=== PATIENT | female | born 2005 | race Caucasian/White ===

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

== ENCOUNTER 2024-04-28 20:23 | Emergency (ER) | payer MEDICAID, SELFPAY ==
[2024-04-28 20:25] VITALS: BP 126/88; PULSE 100; RESP 18; TEMP 36.8; O2SAT 100; BMI 34.0
--- NOTE | 2024-04-28 20:38 | EDS_ITS ---
HPI <CATRACHO Fraga - Last Filed: 04/28/24 21:40> History of Present Illness Chief Complaint: General Illness Narrative Narrative: 18-year-old female is 16 weeks and developed congestion yesterday and this morning the fatigue, chills, body aches, headache and cough. She works in the [employer] and has been around patients with different respiratory viruses. She called her [employer] UP T[employer]ER who recommended she come in and be screened for the flu. She also has urinary frequency today but no burning or hematuria. She has no abdominal pain or vaginal bleeding or discharge. PFSH <CATRACHO Fraga - Last Filed: 04/28/24 21:40> PFSH Medical History Left ankle pain Home Medications ?Medication ?Instructions ?Recorded ?Last Taken ?Type Lactobacillus 25 billion cap PO 10/04/23 Unknown Hist ory cell-Bifido 25 billion xerk-HSG-hrebk capsule albuterol sulfate 90 mcg/actuation inhalation 10/04/23 Unknown History aerosol inhaler vits 75-iron 28 mg-folic pkg PO 02/24/24 Unkn own History acid 800 mcg-omega-3 oral combo pack (One A Day Women's DHA) Allergy/AdvReac Type Severity Reaction Status Date / Time No Known Allergies Allergy Verified 04/28/24 20:25 Surgical History Hx of wisdom tooth extraction Hx of tonsillectomy Social History (Updated 04/28/24 @ 21:21 by Arielle Ruff) household members: spouse housing: house Smoking Status: Never smoker ROS <CATRACHO Fraga - Last Filed: 04/28/24 21:40> ROS ED ROS Narrative Constitutional: Positive for chills, malaise. Negative for fever. ENT: Positive rhinorrhea. CVS: Negative for chest pain. Respiratory: Positive for cough. Negative for shortness of breath. GI: Positive for nausea. Negative for abdominal pain, nausea, vomiting, diarrhea. EXAM <CATRACHO Fraga - Last Filed: 04/28/24 21:40> Physical Exam Narrative Exam Narrative: CONST: Patient sitting in no acute distress. EYES: Normal inspection. ENT: Normal inspection, moist mucous membranes. NECK: Normal inspection. RESP: No respiratory distress, CTAB. CVS: Regular rate and rhythm, no murmur, no gallop. ABD: Soft and nontender, no guarding or rebound, nondistended. SKIN: Color normal, no rash, warm, dry, intact. EXTREMITIES: Normal appearance, no pedal edema. NEURO: Alert and answering questions appropriately. PSYCH: Normal affect. Const Vital Signs: 04/28/24 20:25 04/28/24 21:21 Temperature 98.2 F Temperature Source Oral Pulse Rate 100 Respiratory Rate 18 Respiratory Effort Normal Non-Labored Respiratory Pattern Normal Blood Pressure 126/88 H Blood Pressure Mean 100 Pulse Ox 100 Oxygen Delivery Method Room Air <Dr. Mj Lloyd DO - Last Filed: 04/29/24 00:27> Physical Exam Const Vital Signs: 04/28/24 20:25 04/28/24 21:21 Temperature 98.2 F Temperature Source Oral Pulse Rate 100 Respiratory Rate 18 Respiratory Effort Normal Non-Labored Respiratory Pattern Normal Blood Pressure 126/88 H Blood Pressure Mean 100 Pulse Ox 100 Oxygen Delivery Method Room Air MDM <CATRACHO Fraga - Last Filed: 04/28/24 21:40> [facility] Narrative Medical decision making narrative: Differential: Viral illness, pneumonia, meningitis, UTI 18-year-old female is 16 weeks presenting with acute myalgias and upper respiratory symptoms. She also has urinary frequency. She has no abdominal pain or bleeding. She appears well and nontoxic. He is afebrile. Vital signs stable. Overall her exam is completely benign. She reports a headache but has no focal neurological deficits and no signs of meningitis and this is in the context of other viral symptoms. Respiratory test is negative for COVID, influenza, RSV. Urinalysis is negative. She had some improvement in her headache after Reglan and Benadryl. She has a nonfocal neurological exam so does not need a CT brain or further testing. I suspect she has a viral URI and recommended Tylenol and follow-up with her [employer]ER. She was discharged in stable condition. Lab Data Attestation: I reviewed the patient's lab results. Labs: Laboratory Results - last 24 hr 04/28/24 20:42 Urine Color Yellow Urine Clarity Clear Urine pH 6.0 Ur Specific Keiser 1.015 Urine Protein 15 H Urine Glucose (UA) Normal Urine Ketones Negative Urine Occult Blood Negative Urine Nitrite Negative Urine Bilirubin Negative Urine Urobilinogen Normal Ur Leukocyte Esterase Negative Urine RBC 0 SEEN Urine WBC 0 SEEN Ur Squamous Epith Cells 0 SEEN Urine Bacteria 0 SEEN Urine Mucus 0 SEEN <Dr. Mj Lloyd, DO - Last Filed: 04/29/24 00:27> [facility] Lab Data Labs: Laboratory Results - last 24 hr 04/28/24 20:42 Urine Color Yellow Urine Clarity Clear Urine pH 6.0 Ur Specific Keiser 1.015 Urine Protein 15 H Urine Glucose (UA) Normal Urine Ketones Negative Urine Occult Blood Negative Urine Nitrite Negative Urine Bilirubin Negative Urine Urobilinogen Normal Ur Leukocyte Esterase Negative Urine RBC 0 SEEN Urine WBC 0 SEEN Ur Squamous Epith Cells 0 SEEN Urine Bacteria 0 SEEN Urine Mucus 0 SEEN Treatment and Re-Evaluation :: ED attending note: I evaluated the patient in conjunction with the GABINO. I agree with his/her statements and above findings. I have personally performed a face to face assessment of the patient and have reviewed the GABINO Note. I performed a substantive portion of the visit including all aspects of the following. I personally saw the patient performed chart review, physical exam, reviewed labs, imaging (if obtained), and formulated a treatment and management plan. 18-year-old female presents with viral URI symptoms and headache in the setting of being 16 weeks OB. Denies abdominal pain, vaginal bleeding, discharge or passage of any tissue. Patient denies sudden onset or thunderclap headache, denies maximal intensity within 1 minute, vomiting, neck pain, stiffness, changes in vision, fever, history malignancy, syncope, or seizures associated with headache. Exam: Alert and oriented x3, neuro exam at baseline, cranial nerves II through XII are intact. No pain with extraocular muscle movement. There is negative test of skew. 5 of 5 strength in upper and lower extremities in flexion extension. Intact sensation to light touch in upper and lower extremity dermatomes. No truncal or extremity ataxia. No dysdiadochokinesia. Normal gait. 2+ reflexes in upper and lower extremities. No meningeal signs. Negative Babinski. NIH of 0. MDM/plan: Exam unremarkable. Presentation consistent with likely viral URI. Considered meningitis, ICH, subarachnoid hemorrhage, venous sinus thrombosis but thought these diagnoses were less likely given lack of fever, meningeal signs, focal neurologic deficits. In addition to this patient had no headache red flag such as seizure or syncope etc to suggest a more concerning secondary headache. She was treated empirically with Reglan and Benadryl. Viral swab and urinalysis were obtained. Will determine final disposition based on results of studies, and reassessment. This note was generated with [employer] dictation software. It may contain incorrect words, spelling, and punctuation that were not noted in review of the chart prior to signing. Discharge Plan Triage Chief Complaint: General Illness ED Midlevel Provider: Shraddha Hurley ED Provider: Mj Lloyd Dx/Rx/DC Orders Clinical Impression: URI (upper respiratory infection) Instructions: Adult Self-Care for Colds Prescriptions: No Action albuterol sulfate 90 mcg/actuation HFA aerosol inhaler inhalation Lacto no.77-Asdwjv-MYR-larch 25B cell-25B cell-50 mg capsule PO One A Day Women's DHA 28 mg iron- 800 mcg combo pack PO Primary Care Provider: Que Sommers Referrals: Que Sommers MD [Primary Care Provider] - Activity Restrictions/Additional Instructions: You tested negative for COVID, influenza, and RSV. Your urinalysis is also negative. I suspect you have a viral upper respiratory infection and recommend Tylenol as needed. Contact your CAL[employer] W[employer] UP TENDER for further recommendations. Print Language: Serbian Disposition Disposition: Home, Self Care Discharge Date/Time: 04/28/24 21:44
[2024-04-28] MEDS: DiphenhydrAMINE 25 MG Capsule PO (20:45)
[2024-04-28 20:48] LABS: Bacteria 0 SEEN /hpf (None Seen); Mucous, Urine 0 SEEN /hpf (<or=2+); Squamous Epithelial Cells - UA 0 SEEN /hpf (5-10); White Blood Cells 0 SEEN /hpf (0-5)
[2024-04-28 20:53] LABS: Color, Urine Yellow (Yellow); Glucose, Dipstick Normal (Normal); Ketone-Dipstick Negative (Negative); Leukocyte Esterase-Dipstick Negative /ul (Negative); Nitrite-Dipstick Negative (Negative); Occult Blood-Urine Negative /ul (Negative); Protein-Dipstick 15 mg/dl (Negative); Specific Gravity, Urine 1.015 (1.002-1.030); Urine Bilirubin Dipstick Negative (Negative); Urine Clarity Clear (Clear); Urine Urobilinogen Normal (Normal)
[2024-04-28] MEDS: Metoclopramide 5 MG TABLET PO (21:14)
[2024-04-28 21:34] LABS: Red Blood Cells-Urine 0 SEEN /hpf (0-5)
== END 2024-04-28 21:44 | disposition home or self-care (01) ==
PROVIDERS: Physician Assistant; Emergency Provider Emergency Medicine; PCP Pediatrics; Referring Provider Emergency Medicine; Visit Provider Emergency Medicine
DX: O99.512 Diseases of the respiratory system complicating pregnancy, second trimester (principal); Z3A.16 16 weeks gestation of pregnancy; J06.9 Acute upper respiratory infection, unspecified; O99.891 Other specified diseases and conditions complicating pregnancy; R35.0 Frequency of micturition
CPT/HCPCS: 81001; 87631; 99283

== ENCOUNTER 2024-09-04 10:11 | Emergency (ER) | payer MEDICAID, SELFPAY ==
[2024-09-04 10:11] VITALS: BP 119/81; PULSE 122; RESP 14; TEMP 35.6; O2SAT 98; BMI 37.1
--- NOTE | 2024-09-04 10:48 | EKG12_ITS ---
Test Reason : SOB Blood Pressure : */* mmHG Vent. Rate : 113 BPM Atrial Rate : 113 BPM P-R Int : 134 ms QRS Dur : 90 ms QT Int : 334 ms P-R-T Axes : 37 63 9 degrees QTcB Int : 458 ms Sinus tachycardia Nonspecific T wave abnormality Abnormal ECG Confirmed by TANA MUIR, CODY ([id number]), general expeditor [employer] [employer] ([id number]) on 09/05/2024 1:39:37 PM Referred By: Confirmed By: CODY FAJARDO MD
--- NOTE | 2024-09-04 10:48 | EKG12_ITS ---
Test Reason : SOB Blood Pressure : */* mmHG Vent. Rate : 113 BPM Atrial Rate : 113 BPM P-R Int : 134 ms QRS Dur : 90 ms QT Int : 334 ms P-R-T Axes : 37 63 9 degrees QTcB Int : 458 ms Sinus tachycardia Nonspecific T wave abnormality Abnormal ECG Confirmed by TANA MUIR, CODY ([id number]), avid editor [employer] ([id number]) on 09/05/2024 1:39:37 PM Referred By: Confirmed By: CODY FAJARDO MD
--- NOTE | 2024-09-04 10:55 | CT_ITS ---
PROCEDURE: CTA CHEST W/WO CONTRAST 09/04/2024 REASON FOR EXAM: 35 WEEKS WITH CHEST PAIN, DYSPNEA AND TAC TECHNIQUE: CTA CHEST W/WO CONTRAST Multiplanar Sagittal and Coronal images were obtained. 3D post processing was performed CONTRAST: Isovue 370 VOLUME: 100 mL One or more dose reduction techniques were used (e.g., Automated exposure control, adjustment of the mA and/or kV according to patient size, use of iterative reconstruction technique). RADIATION DOSE SUMMARY: CTDlvol: 30.06 mGy DLP: 469.45 mGycm COMPARISON: No comparison studies # of known CTs in the past 12 months: 0 # of known Cardiac Nuclear Medicine Studies in the past 12 months: 0 FINDINGS: No evidence of filling defects within the pulmonary arteries to suspect PE. The thoracic aorta tapers normally without aneurysm or dissection. Lung windows do not show evidence of a superimposed acute pulmonary process. No suspicious adenopathy Bony structures are unremarkable, limited cuts through the upper abdomen do not show a suspicious abnormality CT/CTA Chest W/WO Contrast IMPRESSION: No demonstrated PE, or thoracic aortic aneurysm or dissection No acute pulmonary process Reading Location: [id number]
--- NOTE | 2024-09-04 10:56 | ED.VIS.CHEST ---
HPI History of Present Illness Chief Complaint: Chest Pain Informant: patient Onset/Context/Timing Onset: Today and Hours Activity at onset: gradual Timing: Continuous Quality: Positive for Pain Current Severity: Mild Maximum Severity: Mild Worsened By: Nothing Relieved By: Nothing Associated Symptoms: Positive for Dyspnea; Negative for Nausea, Vomiting, Diaphoresis, Cough, Fever, Lightheadedness, Acid Reflux or Palpitations Narrative Narrative: 19-year-old female no significant past medical history. Currently 35 weeks . G1, P0 Ab0 due date October 09, 2024. This morning started having shortness of breath with chest discomfort that was diffuse. Lightheadedness. Saw her CLOTH BOLT BANDER in the office Dr. Adrienne Verduzco. Who called me. Patient is being sent in to rule out pulmonary emboli. They did heart tones in the office and are currently not concerned with the itself. Patient has no history of DVT or PE. No recent surgery or hospitalization. No calf pain or hemoptysis. Prior Similar Symptoms: No Recent Illness/Hospitalization: No CVD Risk Factors: Negative for Hypertension, Diabetes, Hypercholesterolemia or Smoking PE Risk Factors: Positive for - (35 weeks .); Negative for Recent Travel/Surgery, Recent Immobilization, Prior DVT or PE, Cancer or OCP + Smoking + >/=35 TAD Risk Factors: Negative for Marfan's Syndrome or Hypertension PFSH [facility] Medical History Left ankle pain Home Medications ?Medication ?Instructions ?Recorded ?Last Taken ?Type Lactobacillus 25 billion cap PO 10/04/23 Unknown History cell-Bifido 25 billion [id number]-YVG-nbhtv capsule albuterol sulfate 90 mcg/actuation inhalation 10/04/23 Unknown History aerosol inhaler vits 75-iron 28 mg-folic pkg PO 02/24/24 Unknown History acid 800 mcg-omega-3 oral combo pack (One A Day Women's DHA) Allergy/AdvReac Type Severity Reaction Status Date / Time No Known Allergies Allergy Verified 09/04/24 10:12 Surgical History Hx of wisdom tooth extraction Hx of tonsillectomy Social History household members: spouse housing: house Smoking Status: Never smoker ROS ROS ED ROS Narrative Chest pain today dyspnea. Decelerated heart rate. Constitutional Constitutional ED: Denies fever(s) Eyes Eyes: Reports none ENT ENT ED: Denies ear pain Cardiovascular Cardiovascular: Reports as per HPI, chest pain, palpitations and racing heartbeat Respiratory/Chest Respiratory/Chest: Reports dyspnea; Denies cough Gastrointestinal Gastrointestinal: Denies abdominal pain, constipation, diarrhea, melena, nausea or vomiting Genitourinary Genitourinary ED: Denies dysuria or hematuria Musculoskeletal Musculoskeletal: Denies arthralgias or back pain Integumentary Denies abscess Neurologic Neurologic: Denies headache(s) Psychiatric Psychiatric: Denies anxiety Endocrine Endocrinology: Denies cold intolerance Hematologic/Lymphatic Hematologic/Lymphatic: Denies easy bleeding or easy bruising Allergic/Immunologic Allergic/Immunologic ED: Denies mouth swelling, tongue swelling or urticaria EXAM Physical Exam Narrative Exam Narrative: Well-appearing 19-year-old female. Vital signs stable initial heart rate in triage is 122 currently at 102. Her pulse ox is 98% on room air no hypoxia. She is in no distress. Significant other at bedside. H EENT exam pupils round react light. Extra motions are intact. Neck nontender no JVD. Lungs clear to auscultation bilaterally. Heart tachycardic 102 no murmur. Chest wall ribs nontender. Abdomen soft, nontender, nondistended, normal bowel sounds without peritoneal signs. She is gravid nontender abdomen. Moving all 4 extremities. Calves are nontender without cords. Trace edema at the ankles bilaterally. Dorsi plantarflexion intact. Normal decorating equipment setter strength. Normal radial pulses. Back nontender. Neurologically she is awake alert. Answering questions following commands. Const Vital Signs: 09/04/24 10:11 09/04/24 10:30 09/04/24 10:57 Temperature 96.1 F L Temperature Source Temporal Pulse Rate 122 H Respiratory Rate 14 Respiratory Effort Normal Non-Labored Blood Pressure 119/81 H Blood Pressure Mean 93 Pulse Ox 98 Oxygen Delivery Method Room Air Room Air Positive well nourished and well developed; Negative for obese, cachectic or contractures General Appearance ED: well developed and NAD; Negative for cachectic, contractures or pallor Nutritional Appearance: Negative for cachectic or obese HEENT Reports moist mucous membranes normocephalic and atraumatic Eyes PERRL and EOMs intact bilaterally Neck no lymphadenopathy, supple and no JVD Chest Wall inspection of chest normal and palpation of chest normal Resp normal respiratory effort and clear to auscultation bilaterally Cardio regular rhythm, S1 normal heart sound, S2 normal heart sound and no murmurs; Negative for regular rate Rate: tachycardic Peripheral Pulses: pulses 2+ throughout GI normal to inspection, nondistended, normoactive bowel sounds, soft to palpation, non-tender, non-distended and no masses GI Narrative: Gravid nontender uterus. Nontender abdomen. Back/Spine no CVA tenderness and no thoracic nor lumbar tenderness Extremity normal to inspection General Extremety ED: Negative for edema, pulses abnormal or tenderness General Extremity: Negative for edema or pulses abnormal Neuro oriented x3 and CN's II-XII intact bilaterally Sensorium / Orientation: awake, alert, oriented to person, oriented to place and oriented to time; Negative for confused or lethargic Psych mental status grossly normal Mood & Affect: Negative for depressed or tearful Skin no rashes or lesions noted and no wounds General Skin Exam: Negative for jaundice or pallor Rashes: No rashes noted Trauma: Negative for abrasion, laceration or puncture MDM MDM MDM Narrative Medical decision making narrative: 19-year-old female 35 weeks atypical chest pain with mild tachycardia. Rule out pulmonary emboli. Patient undergo cardiac workup with a CTA of her chest. Repeat exam patient is doing well at noon. Repeat exam is unchanged benign we went over her test results. She will be discharged home for chest pain uncertain etiology. Tylenol for pain. Outpatient follow-up with her CLOTH [employer]T BANDER. History & Record Review Discussion w/independent historian: Patient and Family Additional record(s) reviewed:: Prior inpatient record, Prior outpatient record, Prior ED visit and Prior labs Lab Data Attestation: I reviewed the patient's lab results. Lab results narrative: CBC shows white 11.8. H&H 11.6 35.4. Platelets 256. Chemistries show sodium 137. Gap 11. BUN and creatinine of 7 and 0.45. Glucose 91. Troponin 7. CTA was normal. No PE. No dissection. No old labs available for comparison. Labs: Laboratory Results - last 24 hr 09/04/24 10:45 WBC 11.8 H RBC 4.22 Hgb 11.6 L Hct 35.4 L MCV 83.9 MCH 27.5 MCHC 32.8 RDW Std Deviation 40.2 RDW Coeff of Teena 13.2 Plt Count 256 MPV 9.4 Immature Gran % (Auto) 1.200 H Neut % (Auto) 70.6 H Lymph % (Auto) 16.7 L [place] % (Auto) 8.8 Eos % (Auto) 2.2 Baso % (Auto) 0.5 Absolute Neuts (auto) 8.4 H Absolute Lymphs (auto) 1.97 Nucleated RBC % 0 Sodium 137 Potassium 3.8 Chloride 105 Carbon Dioxide 20.3 L Anion Gap 11 BUN 7 Creatinine 0.45 L Estim Creat Clear Calc 226.86 Est GFR (MDRD) Non-Af 141 BUN/Creatinine Ratio 15.7 Glucose 91 Calcium 8.7 Troponin T High Sens 7 Radiography Diagnostic Testing: Clinical Impression(s) from Imaging Studies Chest CTA 09/04/24 10:55 IMPRESSION: No demonstrated PE, or thoracic aortic aneurysm or dissection No acute pulmonary process Reading Location: [facility] Rhythm Strip Rhythm Strip: Sinus Tach Rate: 113 Ectopy: None EKG Initial EKG: Attestation: I personally reviewed and interpreted this EKG as follows: Interpretation: No Acute Injury Pattern and Sinus Tachycardia Comments: Sinus tachycardia rate of 113 no acute signs of ND or ischemia. Discharge Plan Triage Chief Complaint: Chest Pain ED Provider: Conrado Richardson Dx/Rx/DC Orders Clinical Impression: Chest pain, Third trimester Instructions: ED Chest Pain, Uncertain Cause Prescriptions: No Action albuterol sulfate 90 mcg/actuation HFA aerosol inhaler inhalation Lacto no.08-Hcegmy-NZO-larch 25B cell-25B cell-50 mg capsule PO One A Day Women's DHA 28 mg iron- 800 mcg combo pack PO Primary Care Provider: Ruiz Vega Referrals: Ruiz Vega DO [Primary Care Provider] - As Needed Govind Vreduzco MD [Med Staff - Active Staff] - As Needed Activity Restrictions/Additional Instructions: Follow-up your [employer]ER and your primary care physician as needed. Your test today looked good. No signs of a blood clot or heart attack. Print Language: Upper Sorbian Disposition Disposition: Home, Self Care
--- NOTE | 2024-09-04 10:56 | ED.VIS.CHEST ---
HPI History of Present Illness Chief Complaint: Chest Pain Informant: patient Onset/Context/Timing Onset: Today and Hours Activity at onset: gradual Timing: Continuous Quality: Positive for Pain Current Severity: Mild Maximum Severity: Mild Worsened By: Nothing Relieved By: Nothing Associated Symptoms: Positive for Dyspnea; Negative for Nausea, Vomiting, Diaphoresis, Cough, Fever, Lightheadedness, Acid Reflux or Palpitations Narrative Narrative: 19-year-old female no significant past medical history. Currently 35 weeks . G1, P0 Ab0 due date October 09, 2024. This morning started having shortness of breath with chest discomfort that was diffuse. Lightheadedness. Saw her FOOD AND DRUG INSPECTOR in the office Dr. Adrienne Verduzco. Who called me. Patient is being sent in to rule out pulmonary emboli. They did heart tones in the office and are currently not concerned with the itself. Patient has no history of DVT or PE. No recent surgery or hospitalization. No calf pain or hemoptysis. Prior Similar Symptoms: No Recent Illness/Hospitalization: No CVD Risk Factors: Negative for Hypertension, Diabetes, Hypercholesterolemia or Smoking PE Risk Factors: Positive for - (35 weeks .); Negative for Recent Travel/Surgery, Recent Immobilization, Prior DVT or PE, Cancer or OCP + Smoking + >/=35 TAD Risk Factors: Negative for Marfan's Syndrome or Hypertension PFSH [facility] Medical History Left ankle pain Home Medications ?Medication ?Instructions ?Recorded ?Last Taken ?Type Lactobacillus 25 billion cap PO 10/04/23 Unknown History cell-Bifido 25 billion lanm-VGA-asmlp capsule albuterol sulfate 90 mcg/actuation inhalation 10/04/23 Unknown History aerosol inhaler vits 75-iron 28 mg-folic pkg PO 02/24/24 Unknown History acid 800 mcg-omega-3 oral combo pack (One A Day Women's DHA) Allergy/AdvReac Type Severity Reaction Status Date / Time No Known Allergies Allergy Verified 09/04/24 10:12 Surgical History Hx of wisdom tooth extraction Hx of tonsillectomy Social History household members: spouse housing: house Smoking Status: Never smoker ROS ROS ED ROS Narrative Chest pain today dyspnea. Decelerated heart rate. Constitutional Constitutional ED: Denies fever(s) Eyes Eyes: Reports none ENT ENT ED: Denies ear pain Cardiovascular Cardiovascular: Reports as per HPI, chest pain, palpitations and racing heartbeat Respiratory/Chest Respiratory/Chest: Reports dyspnea; Denies cough Gastrointestinal Gastrointestinal: Denies abdominal pain, constipation, diarrhea, melena, nausea or vomiting Genitourinary Genitourinary ED: Denies dysuria or hematuria Musculoskeletal Musculoskeletal: Denies arthralgias or back pain Integumentary Denies abscess Neurologic Neurologic: Denies headache(s) Psychiatric Psychiatric: Denies anxiety Endocrine Endocrinology: Denies cold intolerance Hematologic/Lymphatic Hematologic/Lymphatic: Denies easy bleeding or easy bruising Allergic/Immunologic Allergic/Immunologic ED: Denies mouth swelling, tongue swelling or urticaria EXAM Physical Exam Narrative Exam Narrative: Well-appearing 19-year-old female. Vital signs stable initial heart rate in triage is 122 currently at 102. Her pulse ox is 98% on room air no hypoxia. She is in no distress. Significant other at bedside. H EENT exam pupils round react light. Extra motions are intact. Neck nontender no JVD. Lungs clear to auscultation bilaterally. Heart tachycardic 102 no murmur. Chest wall ribs nontender. Abdomen soft, nontender, nondistended, normal bowel sounds without peritoneal signs. She is gravid nontender abdomen. Moving all 4 extremities. Calves are nontender without cords. Trace edema at the ankles bilaterally. Dorsi plantarflexion intact. Normal metallurgical inspector strength. Normal radial pulses. Back nontender. Neurologically she is awake alert. Answering questions following commands. Const Vital Signs: 09/04/24 10:11 09/04/24 10:30 09/04/24 10:57 Temperature 96.1 F L Temperature Source Temporal Pulse Rate 122 H Respiratory Rate 14 Respiratory Effort Normal Non-Labored Blood Pressure 119/81 H Blood Pressure Mean 93 Pulse Ox 98 Oxygen Delivery Method Room Air Room Air Positive well nourished and well developed; Negative for obese, cachectic or contractures General Appearance ED: well developed and NAD; Negative for cachectic, contractures or pallor Nutritional Appearance: Negative for cachectic or obese HEENT Reports moist mucous membranes normocephalic and atraumatic Eyes PERRL and EOMs intact bilaterally Neck no lymphadenopathy, supple and no JVD Chest Wall inspection of chest normal and palpation of chest normal Resp normal respiratory effort and clear to auscultation bilaterally Cardio regular rhythm, S1 normal heart sound, S2 normal heart sound and no murmurs; Negative for regular rate Rate: tachycardic Peripheral Pulses: pulses 2+ throughout GI normal to inspection, nondistended, normoactive bowel sounds, soft to palpation, non-tender, non-distended and no masses GI Narrative: Gravid nontender uterus. Nontender abdomen. Back/Spine no CVA tenderness and no thoracic nor lumbar tenderness Extremity normal to inspection General Extremety ED: Negative for edema, pulses abnormal or tenderness General Extremity: Negative for edema or pulses abnormal Neuro oriented x3 and CN's II-XII intact bilaterally Sensorium / Orientation: awake, alert, oriented to person, oriented to place and oriented to time; Negative for confused or lethargic Psych mental status grossly normal Mood & Affect: Negative for depressed or tearful Skin no rashes or lesions noted and no wounds General Skin Exam: Negative for jaundice or pallor Rashes: No rashes noted Trauma: Negative for abrasion, laceration or puncture MDM MDM MDM Narrative Medical decision making narrative: 19-year-old female 35 weeks atypical chest pain with mild tachycardia. Rule out pulmonary emboli. Patient undergo cardiac workup with a CTA of her chest. Repeat exam patient is doing well at noon. Repeat exam is unchanged benign we went over her test results. She will be discharged home for chest pain uncertain etiology. Tylenol for pain. Outpatient follow-up with her FOOD AND DRUG INSPECTOR. History & Record Review Discussion w/independent historian: Patient and Family Additional record(s) reviewed:: Prior inpatient record, Prior outpatient record, Prior ED visit and Prior labs Lab Data Attestation: I reviewed the patient's lab results. Lab results narrative: CBC shows white 11.8. H&H 11.6 35.4. Platelets 256. Chemistries show sodium 137. Gap 11. BUN and creatinine of 7 and 0.45. Glucose 91. Troponin 7. CTA was normal. No PE. No dissection. No old labs available for comparison. Labs: Laboratory Results - last 24 hr 09/04/24 10:45 WBC 11.8 H RBC 4.22 Hgb 11.6 L Hct 35.4 L MCV 83.9 MCH 27.5 MCHC 32.8 RDW Std Deviation 40.2 RDW Coeff of Teena 13.2 Plt Count 256 MPV 9.4 Immature Gran % (Auto) 1.200 H Neut % (Auto) 70.6 H Lymph % (Auto) 16.7 L [place] % (Auto) 8.8 Eos % (Auto) 2.2 Baso % (Auto) 0.5 Absolute Neuts (auto) 8.4 H Absolute Lymphs (auto) 1.97 Nucleated RBC % 0 Sodium 137 Potassium 3.8 Chloride 105 Carbon Dioxide 20.3 L Anion Gap 11 BUN 7 Creatinine 0.45 L Estim Creat Clear Calc 226.86 Est GFR (MDRD) Non-Af 141 BUN/Creatinine Ratio 15.7 Glucose 91 Calcium 8.7 Troponin T High Sens 7 Radiography Diagnostic Testing: Clinical Impression(s) from Imaging Studies Chest CTA 09/04/24 10:55 IMPRESSION: No demonstrated PE, or thoracic aortic aneurysm or dissection No acute pulmonary process Reading Location: [facility] Rhythm Strip Rhythm Strip: Sinus Tach Rate: 113 Ectopy: None EKG Initial EKG: Attestation: I personally reviewed and interpreted this EKG as follows: Interpretation: No Acute Injury Pattern and Sinus Tachycardia Comments: Sinus tachycardia rate of 113 no acute signs of [place] or ischemia. Discharge Plan Triage Chief Complaint: Chest Pain ED Provider: Conrado Richardson Dx/Rx/DC Orders Clinical Impression: Chest pain, Third trimester Instructions: ED Chest Pain, Uncertain Cause Prescriptions: No Action albuterol sulfate 90 mcg/actuation HFA aerosol inhaler inhalation Lacto no.14-Grbaad-BVX-larch 25B cell-25B cell-50 mg capsule PO One A Day Women's DHA 28 mg iron- 800 mcg combo pack PO Primary Care Provider: Ruiz Vega Referrals: Ruiz Vega DO [Primary Care Provider] - As Needed Govind Verduzco MD [Med Staff - Active Staff] - As Needed Activity Restrictions/Additional Instructions: Follow-up your FOOD AND DRUG INSPECTOR and your primary care physician as needed. Your test today looked good. No signs of a blood clot or heart attack. Print Language: Mongolian Disposition Disposition: Home, Self Care
[2024-09-04 11:01] LABS: Hematocrit 35.4 % (37-47); Hemoglobin 11.6 g/dL (12.0-15.0); Immature Granulocytes Count 0.140 X10^3/uL (0.0-0.0); Mean Corp Hgb Conc 32.8 g/dL (32-36); Mean Corpuscular Volume 83.9 fL (81-99); Mean Platelet Vol. 9.4 fl (6.2-12.0); NRBC Flagged by Analyzer 0 % (0-5); Platelet Count 256 K/mm3 (150-450); RBC Distribution Width CV 13.2 % (11.6-14.6); RBC Distribution Width SD 40.2 fl (35.1-43.9); Red Blood Count 4.22 M/mm3 (4.2-5.4); White Blood Count 11.8 K/mm3 (4.4-11.0)
[2024-09-04 11:38] LABS: Anion Gap 11 (5-15); BUN 7 mg/dL (4-19); BUN/Creat Ratio 15.7 RATIO (10-20); Calcium,Total 8.7 mg/dL (7.6-11.0); Carbon Dioxide 20.3 mmol/L (21.0-32.0); Chloride 105 mmol/L (98-108); Estimated Creatinine Clearance 226.86 ml/min (50-250); Glucose 91 mg/dL (70-99); Potassium 3.8 mmol/L (3.3-5.1); Troponin T High Sensitivity 7 ng/L (<=14)
[2024-09-04 12:22] VITALS: BP 115/75; PULSE 99; RESP 17; TEMP 36.7; O2SAT 94
== END 2024-09-04 12:23 | disposition home or self-care (01) ==
PROVIDERS: Emergency Provider Emergency Medicine; PCP Student in an Organized Health Care Education/Training Program; Visit Provider Emergency Medicine
DX: O99.891 Other specified diseases and conditions complicating pregnancy (principal); R06.00 Dyspnea, unspecified; Z3A.35 35 weeks gestation of pregnancy; R07.9 Chest pain, unspecified
CPT/HCPCS: 71275; 80048; 84484; 85025; 93005; 99284; Q9967; A4216

== ENCOUNTER 2024-10-12 23:20 | Outpatient (CLI) | payer MEDICAID, SELFPAY ==
--- OUTSIDE RECORDS SUMMARY | 2024-10-12 23:28 | XMS RPT_ITS | CCD ---
Author Organization [facility] Inform ion Partnership CIVIL DESIGNER [facility] Care Team Providers Care Customer Marketing Intern Name Role Phone Que Chavez MD Primary Care Provider Unavailable Primary Care Provider Unavailbelkis e Ruiz Vega DO Primary Care Provider Adriel TEXTILE ENGRAVER.BANDAGE WINDING MACHINE OPERATORMaria Alejandra Unavailable [phone] Hunter TEXTILE ENGRAVER.BANDAGE WINDING MACHINE OPERATORSheri Unavailable Dr. Ruiz Vega DO Primary Care Provider Dylan MUIR, Dr. Camp Emergency Provider La Del Castillo Admitting Unavailable Ruiz Vega Primary Care Unavailable La Del Castillo Referring Unavailable La Del Castillo Attending Unavailable Ruiz Vega Primary Care Unavailable Conrado Richardson Attending Unavailable Scott, Que Primary Care Unavailable Mj Lloyd Referring Unavailable Mj Lloyd Attending Unavailable Antwon Miranda Attending Unavailable Scott, Que Referring Unavailable Scott, Que Primary Care Unavailable Scott, Que Primary Care Unavailable Flo Smith Attending Unavailable Antwon Miranda Attending Unavailable Scott, Que Referring Unavailable Scott, Que Primary Care Unavailable Chico Upton Attending Unavailable Scott, Que Primary Care Unavailable Scott, Que Referring Unavailable Scott, Que Primary Care Unavailable SarahFlo anna Attending Unavailable LINSEY, NILDA Referring Unavailable LINSEY, NILDA Referring Unavailable DELFINA WATSON Attending Unavailable SCOTT, QUE P Primary Care Unavailable JOSIANE GOODWIN Attending Unavailable DUNCAN MUNGUIA Attending Unavailable RUIZ VEGA Primary Care Unavailable ALO THOMPSON Attending Unavailable RUIZ VEGA Primary Care Unavailable JANELLE MARIN Attending Unavailable LA DEL CASTILLO Attending Unavailable KIA LUCERO Attending Unavailable SCOTT, QUE P Primary Care Unavailable DELFINA WATSON Referring Unavailable KIA LUCERO Attending Unavailable SCOTT, QUE P Primary Care Unavailable SOMMER HERNANDEZ Attending Unavailable DELFINA WATSON Attending Unavailable RABIA, DELFINA Referring Unavailable SELF Referring Unavailable LINDSEY MORENO Attending Unavailable VEGA, RUIZ L Primary Care Unavailable DELFINA WATSON Attending Unavailable VEGA, RUIZ L Primary Care Unavailable CASTILLO MCKEON Attending Unavailable SCOTT, QUE P Primary Care Unavailable LINSEY, NILDA Attending Unavailable SCOTT, QUE P Primary Care Unavailable LINSEY, NILDA Referring Unavailable SCOTT, QUE P Primary Care Unavailable LINSEY, NILDA Attending Unavailable SELF Referring Unavailable CASTILLO MCKEON Attending Unavailable MIKE, CASTILLO Bernard Referring Unavailable SCOTT, QUE P Primary Care Unavailable LINSEY, NILDA Attending Unavailable VEGA, RUIZ L Primary Care Unavailable VEGA, RUIZ L Attending Unavailable VEGA, RUIZ L Primary Care Unavailable LINDSEY MORENO Attending Unavailable VEGA, RUIZ L Primary Care Unavailable LA DEL CASTILLO Attending Unavailable VEGA, RUIZ L Primary Care Unavailable JANELLE MARIN Attending Unavailable VEGA, RUIZ L Primary Care Unavailable CASTILLO MCKEON Attending Unavailable SCOTT, QUE P Primary Care Unavailable LINSEY, NILDA Referring Unavailable LA DEL CASTILLO Attending Unavailable SCOTT, QUE P Primary Care Unavailable LINSEY, NILDA Referring Unavailable Allergies Allergy Classification Reported Allergen(s) Allergy Type Date of Onset Reaction(s) Facility (20 sources) Seasonal allergy; Translations: [SEASONAL ALLERGIES] Propensity to adverse reactions 8 Other: See Comments [facility] Medications Current Medications Medication Drug Class(es) Dates Sig (Normalized) Sig (Original) [id number] 200 actuat albuterol 0.09 mg/actuat metered dose inhaler (20 sources) beta2-Adrenergic Agonist Start: 04-10-2024 take 2 puff(s) by inhalation every four hours as needed for wheezing albuterol HFA (PROVENTIL HFA, VENTOLIN HFA) 90 mcg/actuation inhaler Indications: Wheezing Inhale 2 Puffs as instructed every 4 hours as needed for wheezing/shortnes s of breath. 8.5 g 04/10/2024 Active Start: 10-04-2023 Albuterol Sulf ate 90 mcg/actuation HFA aerosol inhaler Active INHALATION October 04, 2023 12:00am Start: 06-29-2023 End: 04-10-2024 take 2 puff(s) by inhalation every four hours as needed for wheezing albuterol HFA (PROVENTIL HFA, VENTOLIN HFA) 90 mcg/actuation inhaler Indications: Wheezing Inhale 2 Puffs as instructed every 4 hours as needed for wheezing/shortness of breath. 18 g 10/28/2023 04/10/2024 Discontinued Start: 05-27-2022 End: 06-26-2022 take 2 puff(s) by inhalation every four hours as needed for wheezing albuterol HFA (PROVENTIL HFA, VENTOLIN HFA) 90 mcg/actuation inhaler Indications: Wheezing Inhale 2 Puffs as instructed every 4 hours as needed for wheezing/shortness of breath. 18 g 0 05/27/2022 Active Comment on above: Inhale 2 Puffs as in structed every 4 hours as needed for wheezing/shortness of breath. amoxicillin 500 mg oral capsule (3 sources) Penicillin-class Antibacterial Start: 2024 End: 2024 take 2 capsules by mouth twice daily amoxicillin (AMOXIL) 500 mg capsule Indications: Acute non-recurrent frontal sinusitis Take 2 capsules by mouth two times a day for 7 days. 28 capsule 03/19/2024 03/26/2024 Active aspirin 81 mg delayed release oral tablet (20 sources) Platelet Aggregation Inhibitor, Nonsteroidal Anti-inflammatory Drug Start: 2023 take 1 tablet by mouth once daily aspirin, enteric coated (ECOTRIN LOW STRENGTH) 81 mg EC tablet Indications: Encounter for care in first trimester of first ([facility]) , 7 weeks gestation of ([facility]) Take 1 tablet by mouth once daily. 90 tablet 3 02/21/2024 Active diphenhydrAMINE (14 sources) Histamine-1 Receptor Antagonist diphenhydramine HCl (BENADRYL ALLERGY ORAL) Take by mouth as needed. Active doxycycline hyclate 100 mg oral capsule (1 source) Tetracycline-class Drug Start: 2023 End: 2023 take 1 capsule by mouth twice daily doxycycline hyclate (VIBRAMYCIN) 100 mg capsule Take 1 capsule (100 mg) by mouth two times a day for 7 days. 14 capsule 12/15/2023 12/22/2023 Active Ethinyl Estradiol / norgestimate (15 sources) Progestin, Estrogen Start: 2022 End: 2022 take 1 tablet by mouth once daily norgestimate 0.25 mg-ethinyl estradiol 35 mcg (SPRINTEC) 0.25-35 mg-mcg per tablet Take 1 tablet by mouth once daily. 84 tablet 3 03/16/2022 06/08/2022 Active Start: 04-16-2021 End: 03-16-2022 take 1 tablet by mouth once daily norgestimate 0.25 mg-ethinyl estradiol 35 mcg (SPRINTEC) 0.25-35 mg-mcg per tablet Take 1 tablet by mouth once daily. 28 tablet 11 04/16/2021 03/16/2022 Discontinued Start: 04-16-2021 take 1 tablet by joselyn th once daily norgestimate 0.25 mg-ethinyl estradiol 35 mcg (SPRINTEC) 0.25-35 mg-mcg per tablet Take 1 tablet by mouth once daily. 28 tablet 11 04/16/2021 Active Comment on above: Take 1 tablet by joselyn th once daily. famotidine 20 mg oral tablet (16 sources) Histamine-2 Receptor Antagonist Start: 09-12-2024 take 1 tablet by mouth every twelve hours as needed famotidine (PEPCID) 20 mg tablet Take 1 tablet by mouth two times a day as needed (heartburn). 60 tablet 1 09/12/2024 Active Start: 07-13-2021 End: 05-07-2022 take 1 tablet by mouth every twelve hours as needed famotidine (PEPCID) 20 mg tablet Take 1 tablet by mouth twice daily as needed. 60 tablet 0 07/13/2021 05/07/2022 Discontinued Comment on above: Take 1 tablet by joselyn th twice daily as needed. fluticasone propionate 0.05 mg/actuat metered dose nasal spray (20 sources) Corticosteroid Start: take 2 spray(s) nasal route once daily fluticasone (FLONASE ALLERGY RELIEF) 50 mcg/actuation nasal spray Use 2 sprays in each nostril once daily. 18.2 mL 1 08/01/2024 Active Start: 07-13-2021 End: 02-21-2024 take 1 spray(s) nasal route once daily fluticasone (FLONASE) 50 mcg/actuation nasal spray Use 1 [place] in each nostril once daily. 1 Each 3 07/29/2023 02/21/2024 Discontinued Comment on above: Use 1 [place] in each nostril once daily. Inhalational Spacing Device (1 source) Start: 3 End: 3 Inhalational Spacing Device Indications: Wheezing 1 Device one time only for 1 dose. 1 Each 0 05/27/2022 05/27/2022 Active Comment on above: 1 Device one time on ly for 1 dose. ketoconazole 20 mg/ml medicated shampoo (5 sources) Azole Antifungal Start: 4 End: 4 ketoconazole (NIZORAL) 2 % shampoo Indications: Seborrhea Apply small amount every 2 - 3 days for up to 8 weeks, then as needed. Lather, massage into affected areas. Allow shampoo remain on the affected areas for 5 minutes and then rinse off the shampoo. 120 mL 1 10/31/2023 02/21/2024 Discontinued (Other) Lacto No.61-Zohqjn-Cqr-Larc h 25B cell-25B cell-50 mg capsule (1 source) Start: 4 Lacto No.31-Frdcbe-Ojt-Larc h 25B cell-25B cell-50 mg capsule Active NMA PO October 04, 2023 12:00am loratadine 10 mg oral tablet (20 sources) Start: 2 End: 4 take 1 tablet by mouth once daily loratadine (CLARITIN) 10 mg tablet Take 1 tablet by mouth once daily. FOR ALLERGY SYMPTOMS 90 tablet 2 05/07/2022 02/01/2023 Active loratadine (CLAR ITIN ORAL) Take by mouth as needed. Active Comment on above: Take 1 tablet by joselyn th once daily. Take 1 tablet by joselyn th once daily. FOR ALLERGY SYMPTOMS moxifloxacin 400 mg oral tablet (1 source) Quinolone Antimicrobial Start: 12-15-19 End: 12-22-19 24 take 1 tablet by mouth once daily moxifloxacin (AVELOX) 400 mg tablet Take 1 tablet by mouth once daily for 7 days. 7 tablet 12/15/2023 12/22/2023 Active olopatadine 2 mg/ml ophthalmic solution (20 sources) Histamine-1 Receptor Inhibitor Start: 07-14-19 End: 02-21-20 take 1 drop(s) into the eye(s) once daily Olopatadine (PATADAY ONCE DAILY RELIEF) 0.2 % drop Use 1 Drop in both eyes once daily. 5 mL 3 07/13/2021 02/21/2024 Discontinued Start: 07-13-2021 take 1 drop(s) into the eye(s) once daily Olopatadine (PATADAY ONCE DAILY RELIEF) 0.2 % drop Use 1 Drop in both eyes once daily. 5 mL 3 07/13/2021 Active Comment on above: Use 1 Drop in both e yes once daily. predniSONE 20 mg oral tablet (1 source) Start: 10-31-2023 End: 11-05-2023 take 3 tablets by mouth once daily predniSONE (DELTASONE) 20 mg tablet Indications: Mild intermittent asthma with (acute) exacerbation Take 3 tablets by mouth once daily for 5 days. 15 tablet 10/31/2023 11/05/2023 Active Nrwxfl40-Xezi Fum-Folic Ac-Om3 (One A Day Women's Dha) 28 mg iron- 800 mcg combo pack (1 source) Start: 02-24-2024 Nogbus13-Vwax Fum-Folic Ac-Om3 (One A Day Women's Dha) 28 mg iron- 800 mcg combo pack Active NMA PO February 24, 2024 1:00am Allndbaj-Wl-Xxf-Fe-F A tab (20 sources) Start: 04-27-2024 take 1 tablet by mouth once daily Ojiqukmm-Ap-Aih-Fe-FA tab Take 1 tablet by mouth once daily. With folic acid and DHA as covered by insurance. 90 tablet 3 04/27/2024 Active Start: 04-27-2024 End: 07-26-2024 take 1 tablet by mouth once daily Hylywqbr-Av-Pss-Fe-FA tab Take 1 tablet by mouth once daily. With folic acid and DHA as covered by insurance. 90 tablet 3 04/27/2024 07/26/2024 Active Completed/Discontinued Medications Medication Drug Class(es) Dates Sig (Normalized) Sig (Original) acetaminophen 325 mg / HYDROcodone bitartrate 5 mg oral tablet (1 source) Opioid Agonist Start: 10-04-2023 End: 11-15-2023 Hydrocodone-Acetam inophen 5-325 mg tablet Discontinued 1 {tbl} PO EVERY 6 HOURS as needed 0 October 04, 2023 12:00am November 15, 2023 3:06pm copper 313 mg drug implant (7 sources) Copper-containing Intrauterine Device End: 07-11-2023 copper (PARAGARD) 380 square mm intrauterine device 1 Intra Uterine Device by INTRAUTERINE route. 0 07/11/2023 Discontinued Comment on above: 1 Intra Uterine Joanna ce by INTRAUTERINE route. estradiol 0.1 mg/ml vaginal cream (4 sources) Estrogen Start: 08-25-2023 End: 10-31-2023 estradiol (ESTRACE) 0.01 % (0.1 mg/gram) vaginal cream Use 1 g vaginally at bedtime for 2 weeks then 3 times/week for 2 weeks 42.5 g 08/25/2023 10/31/2023 Discontinued 168 hr ethinyl estradiol 0.48834 mg/hr / norelgestromin 0.56633 mg/hr transdermal system (2 sources) Progestin, Estrogen Start: 07-15-2022 End: 10-07-2022 apply 1 dose transdermal route every week Ethinyl Estradiol-Norelges trom (XULANE) 150-35 mcg/24 hr patch Apply 1 Patch as directed one time a week. 3 Patch 4 07/15/2022 10/05/2022 Discontinued (Other) Comment on above: Apply 1 Patch as dir ected one time a week. fluconazole 150 mg oral tablet (8 sources) Azole Antifungal Start: 07-29-2023 End: 08-25-2023 fluconazole (DIFLUCAN) 150 mg tablet Take 1 tablet today, then a 2nd tablet in 72 hours, and 3rd tablet in another 72 hours. 3 tablet 0 07/29/2023 08/25/2023 Discontinued Start: 04-13-2022 End: 05-07-2022 fluconazole (DIFLUCAN) 150 m g tablet Take 1 tablet today, then a 2nd tablet in 72 hours, and 3rd tablet in another 72 hours. 3 tablet 0 04/13/2022 05/07/2022 Discontinued Start: 04-12-2022 End: 04-12-2022 take 1 tablet by mouth once fluconazole (DIFLUCAN) 150 mg tablet Take 1 tablet by mouth one time only for 1 dose. 1 tablet 0 04/12/2022 04/12/2022 Active Comment on above: Take 1 tablet by [facility] one time only for 1 dose. Take 1 tablet today, then a 2nd tablet in 72 hours, and 3rd tablet in another 72 hours. 12 hr guaiFENesin 600 mg extended release oral tablet (12 sources) Start: 10-05-2021 End: 05-27-2022 take 2 tablets by mouth twice daily guaiFENesin (MUCINEX) 600 mg 12 hr tablet Take 2 tablets by mouth twice daily. 24 tablet 0 10/05/2021 05/27/2022 Discontinued Comment on above: Take 2 tablets by [facility] twice daily. L. acidophilus-L. rhamnosus 15 billion cell cap (20 sources) Start: 03-17-2022 End: 07-28-2023 take 1 capsule by mouth once daily L. acidophilus-L. rhamnosus 15 billion cell cap Indications: BV (bacterial vaginosis) Take 1 capsule by mouth once daily. FLORAJEN WOMEN. If on antibiotic, take at least 1-2 hours before or after antibiotic. KEEP REFRIGERATED 30 capsule 03/17/2022 07/28/2023 Discontinued Start: 03-17-2022 take 1 capsule by mo ut once daily L. acidophilus-L. rhamnosus 15 billion cell cap Indications: BV (bacterial vaginosis) Take 1 capsule by mouth once daily. FLORAJEN WOMEN. If on antibiotic, take at least 1-2 hours before or after antibiotic. KEEP REFRIGERATED 30 capsule 11 03/17/2022 Active Comment on above: Take 1 capsule by mo [facility] once daily. FLORAJEN WOMEN. If on antibiotic, take at least 1-2 hours before or after antibiotic. KEEP REFRIGERATED L.acid,rhamn-roe te-lactoferr (CLAIRVEE) 5 billion cell- 400 mcg DFE cpDR (4 sources) End: take 1 capsule by mouth once daily L.acid,zblpg-fqmxia-b actoferr (CLAIRVEE) 5 billion cell- 400 mcg DFE cpDR Take 1 capsule by mouth once daily. For 15 days out of the month. 10/31/2023 Discontinued take 1 capsule by mo uth once daily L.acid,qmhnj-prraxu-lfogxalfh (CLAIRVEE) 5 billion cell- 400 mcg DFE cpDR Take 1 capsule by mouth once daily. For 15 days out of the month. Active take 1 capsule by mo uth once daily L.acid,iwjwz-amjgqd-lnsmwlxvc (CLAIRVEE) 5 billion cell- 400 mcg DFE cpDR Take 1 capsule by mouth once daily. For 15 days out of the month. 0 Active L.acidophilus-L.rhamnosus (FLORAJEN WOMEN) 15 billion cell capsule (4 sources) Start: 07-29-2023 End: 08-25-2023 take 1 capsule by mouth once daily L.acidophilus-L.rhamnosus (FLORAJEN WOMEN) 15 billion cell capsule Indications: BV (bacterial vaginosis) Take 1 capsule by mouth once daily. FLORAJEN WOMEN. If on antibiotic, take at least 1-2 hours before or after antibiotic. KEEP REFRIGERATED 30 capsule 11 07/29/2023 08/25/2023 Discontinued Start: 07-29-2023 take 1 capsule by mo uth once daily L.acidophilus-L.rhamnosus (FLORAJEN WOME N) 15 billion cell capsule Indications: BV (bacterial vaginosis) Take 1 capsule by mouth once daily. FLORAJEN WOMEN. If on antibiotic, take at least 1-2 hours before or after antibiotic. KEEP REFRIGERATED 30 capsule 11 07/29/2023 Active MEDICATION, NON-DATABASE (2 sources) MEDICATION, NON-DATABASE allergy injections weekly 0 Active Comment on above: allergy injections w eekly metroNIDAZOLE 500 mg oral tablet (4 sources) Nitroimidazole Antimicrobial Start: 08-02-19 End: 08-02-19 take 1 tablet by mouth twice daily metroNIDAZOLE (FLAGYL) 500 mg tablet Take 1 tablet by mouth two times a day for 7 days. 14 tablet 0 08/02/2023 08/02/2023 Discontinued Start: 07-12-2023 End: 07-17-2023 metroNIDAZOLE (METROGEL VAGI NAL) 0.75 % (37.5mg/5 gram) Vaginal Gel Use 1 Applicator vaginally daily at bedtime for 5 days. 70 g 0 07/12/2023 07/17/2023 Active Start: 07-12-2023 End: 07-12-2023 take 1 tablet by mouth twice daily metroNIDAZOLE (FLAGYL) 500 mg tablet Take 1 tablet by mouth two times a day for 7 days. 14 tablet 0 07/12/2023 07/12/2023 Discontinued Start: 04-13-2022 End: 04-20-2022 take 1 tablet by mouth twice daily metroNIDAZOLE (FLAGYL) 500 mg tablet Take 1 tablet by mouth twice daily for 7 days. 14 tablet 0 04/13/2022 04/20/2022 Active Comment on above: Take 1 tablet by [facility] twice daily for 7 days. naproxen 500 mg oral tablet (1 source) Nonsteroidal Anti-inflammatory Drug Start: 2 End: 4 take 1 tablet by mouth twice daily as needed for pain Naproxen (Naprosyn) 500 mg tablet Discontinued 500 mg PO TWICE A DAY as needed for pain 20 0 March 07, 2021 1:00am October 04, 2023 9:00am omeprazole 20 mg delayed release oral capsule (2 sources) Proton Pump Inhibitor Start: 2 End: 2 take 1 capsule by mouth once daily omeprazole (PRILOSEC) 20 mg capsule Take 1 capsule by mouth once daily. 30 capsule 0 06/12/2021 07/13/2021 Discontinued Comment on above: Take 1 capsule by [facility] once daily. vit no.124/iron/folic ( VITAMIN ORAL) (15 sources) End: 5 take 1 tablet by mouth once daily vit no.124/iron/folic ( VITAMIN ORAL) Take 1 tablet by mouth once daily. 04/27/2024 Discontinued (Course of therapy completed) take 1 tablet by mouth once yuniel y vit no.124/iron/folic ( VITAMIN ORAL) Take 1 tablet by mouth once daily. Active triamcinolone acetonide 1 mg/ml topical cream (11 sources) Corticosteroid Start: 10-28-2021 End: 05-27-2022 triamcinolone acetonide (KENALOG) 0.1 % cream Apply to affected area(s) twice daily as needed. Not to exceed 14 days consecutive use. 80 g 0 10/28/2021 05/27/2022 Discontinued Comment on above: Apply to affected ar ea(s) twice daily as needed. Not to exceed 14 days consecutive use. Problems Active Problems Problem Classification Problem Date Documented Da te Episodic/Chronic Abdominal pain (4 sources) Pain in female pelvis; Translations: [Pelvic and perineal pain] Episodic Acquired foot deformities (1 source) Talipes planus; Translations: [Flat foot [pes planus] (acquired), right foot] 06-24-2023 Episodic Allergic reactions (1 source) Adverse reaction to food; Translations: [Other adverse food reactions, not elsewhere classified, initial encounter] 11-04-2023 Episodic Bacterial infection; unspecified site (9 sources) Bacteria present; Translations: [Streptococcus, group B, as the cause of diseases classified elsewhere] Onset: 5 09-18-2024 Episodic Complication of device; implant or graft (3 sources) Malposition of intrauterine contraceptive device; Translations: [Displacement of intrauterine contraceptive device, initial encounter] 05-13-2023 Episodic Conditions associated with dizziness or vertigo (1 source) Dizziness; Translations: [Dizziness and giddiness] 04-27-2024 Episodic Contraceptive and procreative management (1 source) Oral contraception; Translations: [Encounter for surveillance of contraceptive pills] Episodic Esophageal disorders (20 sources) Gastroesophageal reflux disease; Translations: [Gastro-esophageal reflux disease without esophagitis] Onset: 2 Chronic Fever of unknown origin (1 source) Fever; Translations: [Fever, unspecified] Episodic Immunizations and screening for infectious disease (10 sources) Patient encounter status; Translations: [Encounter for immunization] Episodic Inflammatory diseases of female pelvic organs (2 sources) Bacterial vaginosis; Translations: [Acute vaginitis] Onset: 5 07-28-2023 Episodic Menstrual disorders (1 source) Missed period; Translations: [Irregular menstruation, unspecified] Chronic Nonspecific chest pain (1 source) Chest pain; Translations: [Chest pain, unspecified] 09-04-2024 Episodic Other circulatory disease (1 source) Respiratory symptom; Translations: [Other specified symptoms and signs involving the circulatory and respiratory systems] Episodic Other complications of (20 sources) Obesity; Translations: [Obesity complicating , unspecified trimester] Onset: 5 04-03-2024 Chronic Other complications of (3 sources) Obesity complicating , unspecified trimester; Translations: [Obesity in ([facility])] Onset: 5 Chronic Other complications of (1 source) Obesity complicating , third trimester; Translations: [Obesity affecting in third trimester, unspecified obesity type ([facility])] Onset: 5 Chronic Other complications of (1 source) Uterine contractions problem; Translations: [Other specified related conditions, unspecified trimester] 06-06-2024 Episodic Other complications of (1 source) Reduced movement; Translations: [Decreased movements, second trimester, not applicable or unspecified] 06-21-2024 Episodic Other complications of (20 sources) High risk ; Translations: [Supervision of high risk , unspecified, third trimester] Onset: 4 07-20-2024 Episodic Other complications of (8 sources) Heartburn; Translations: [Other specified related conditions, third trimester] Onset: 5 09-12-2024 Episodic Other complications of (1 source) Supervision of high risk , unspecified, third trimester; Translations: [Supervision of high risk in third trimester ([facility])] Onset: 5 Episodic Other complications of (2 sources) Other specified related conditions, third trimester; Translations: [Heartburn during in third trimester ([facility])] Onset: 5 Episodic Other connective tissue disease (1 source) Pain in lower limb; Translations: [Pain in unspecified lower leg] 06-24-2023 Episodic Other female genital disorders (4 sources) Vaginal irritation; Translations: [Other specified noninflammatory disorders of vagina] Episodic Other female genital disorders (5 sources) Vaginal discharge; Translations: [Other specified noninflammatory disorders of vagina] 05-03-2023 Episodic Other female genital disorders (1 source) Pruritus of vagina; Translations: [Other specified noninflammatory disorders of vagina] 05-03-2023 Episodic Other female genital disorders (2 sources) Burning sensation of vagina; Translations: [Unspecified condition associated with female genital organs and menstrual cycle] 07-11-2023 Episodic Other female genital disorders (1 source) Other specified noninflammatory disorders of vagina; Translations: [Vaginal discharge during in third trimester (HCC)] Onset: 5 Episodic Other gastrointestinal disorders (1 source) Heartburn; Translations: [Heartburn during in third trimester (HCC)] Onset: 5 Episodic Other inflammatory condition of skin (1 source) Seborrheic dermatitis; Translations: [Seborrheic dermatitis, unspecified] 11-04-2023 Episodic Other lower respiratory disease (1 source) Cough; Translations: [Acute cough] Episodic Other lower respiratory disease (6 sources) Wheezing; Translations: [Wheezing] Episodic Other non-traumatic joint disorders (1 source) Ankle pain; Translations: [Pain in left ankle and joints of left foot] 10-04-2023 Episodic Other nutritional; endocrine; and metabolic disorders (20 sources) Body mass index 30+ - obesity; Translations: [Body mass index (BMI) 32.0-32.9, adult] Onset: 4 02-21-2024 Chronic Other nutritional; endocrine; and metabolic disorders (1 source) Body mass index (BMI) 35.0-35.9, adult; Translations: [Class 2 obesity with body mass index (BMI) of 35.0 to 35.9 in adult, unspecified obesity type, unspecified whether serious comorbidity present] Onset: 5 Chronic Other nutritional; endocrine; and metabolic disorders (1 source) Other obesity due to excess calories; Translations: [Other obesity due to excess calories affecting , antepartum (HCC)] Onset: 5 Chronic Other screening for suspected conditions (not mental disorders or infectious disease) (1 source) Encounter for screening for diabetes mellitus; Translations: [Screening for diabetes mellitus] Onset: 5 Episodic Other skin disorders (1 source) Eruption; Translations: [Rash and other nonspecific skin eruption] 08-01-2024 Episodic Other skin disorders (1 source) Rash and other nonspecific skin eruption; Translations: [Rash] Onset: 5 Episodic Other upper respiratory disease (20 sources) Allergic rhinitis; Translations: [Allergic rhinitis, unspecified] Onset: 2 Chronic Other upper respiratory disease (2 sources) Seasonal allergy; Translations: [Other seasonal allergic rhinitis] Chronic Other upper respiratory disease (1 source) Allergic rhinitis, unspecified; Translations: [Allergic rhinitis, unspecified seasonality, unspecified trigger] Onset: Chronic Other upper respiratory infections (9 sources) Sore throat symptom; Translations: [Acute pharyngitis, unspecified] Episodic Otitis media and related conditions (1 source) Dysfunction of bilateral eustachian tubes; Translations: [Other specified disorders of Eustachian tube, bilateral] Episodic Residual codes; unclassified (1 source) FH: Thyroid disorder; Translations: [Family history of other endocrine, nutritional and metabolic diseases] 12-12-2023 Episodic Residual codes; unclassified (1 source) Gestation period, 7 weeks; Translations: [Less than 8 weeks gestation of ] 02-21-2024 Episodic Residual codes; unclassified (1 source) Gestation period, 12 weeks; Translations: [12 weeks gestation of ] 03-28-2024 Episodic Residual codes; unclassified (3 sources) Gestation period, 13 weeks; Translations: [13 weeks gestation of ] 04-03-2024 Episodic Residual codes; unclassified (1 source) Gestation period, 16 weeks; Translations: [16 weeks gestation of ] 04-27-2024 Episodic Residual codes; unclassified (1 source) Gestation period, 20 weeks; Translations: [20 weeks gestation of ] 05-25-2024 Episodic Residual codes; unclassified (1 source) Gestation period, 22 weeks; Translations: [22 weeks gestation of ] 06-06-2024 Episodic Residual codes; unclassified (2 sources) Gestation period, 24 weeks; Translations: [24 weeks gestation of ] 06-19-2024 Episodic Residual codes; unclassified (1 source) Gestation period, 28 weeks; Translations: [28 weeks gestation of ] 07-20-2024 Episodic Residual codes; unclassified (1 source) Gestation period, 30 weeks; Translations: [30 weeks gestation of ] 08-01-2024 Episodic Residual codes; unclassified (2 sources) Gestation period, 31 weeks; Translations: [31 weeks gestation of ] Onset: 08-13-2024 Episodic Residual codes; unclassified (1 source) Gestation period, 32 weeks; Translations: [32 weeks gestation of ] 08-16-2024 Episodic Residual codes; unclassified (1 source) Gestation period, 34 weeks; Translations: [34 weeks gestation of ] 08-30-2024 Episodic Residual codes; unclassified (1 source) Gestation period, 35 weeks; Translations: [35 weeks gestation of ] 09-04-2024 Episodic Residual codes; unclassified (1 source) Gestation period, 36 weeks; Translations: [36 weeks gestation of ] 09-12-2024 Episodic Residual codes; unclassified (1 source) Gestation period, 37 weeks; Translations: [37 weeks gestation of ] 09-18-2024 Episodic Residual codes; unclassified (1 source) Gestation period, 38 weeks; Translations: [38 weeks gestation of ] 09-25-2024 Episodic Residual codes; unclassified (1 source) Gestation period, 39 weeks; Translations: [39 weeks gestation of ] 10-05-2024 Episodic Residual codes; unclassified (1 source) 40 weeks gestation of ; Translations: [40 weeks gestation of (HCC)] Onset: Episodic Residual codes; unclassified (1 source) 39 weeks gestation of ; Translations: [39 weeks gestation of (HCC)] Onset: Episodic Residual codes; unclassified (1 source) 38 weeks gestation of ; Translations: [38 weeks gestation of (HCC)] Onset: Episodic Residual codes; unclassified (1 source) 37 weeks gestation of ; Translations: [37 weeks gestation of (HCC)] Onset: Episodic Residual codes; unclassified (1 source) 36 weeks gestation of ; Translations: [36 weeks gestation of (HCC)] Onset: Episodic Residual codes; unclassified (1 source) 35 weeks gestation of ; Translations: [35 weeks gestation of (HCC)] Onset: Episodic Residual codes; unclassified (1 source) 34 weeks gestation of ; Translations: [34 weeks gestation of (HCC)] Onset: 5 Episodic Residual codes; unclassified (1 source) 32 weeks gestation of ; Translations: [32 weeks gestation of (HCC)] Onset: Episodic Residual codes; unclassified (1 source) 31 weeks gestation of ; Translations: [31 weeks gestation of (HCC)] Onset: 5 Episodic Residual codes; unclassified (1 source) 30 weeks gestation of ; Translations: [30 weeks gestation of (HCC)] Onset: 5 Episodic Residual codes; unclassified (1 source) 24 weeks gestation of ; Translations: [24 weeks gestation of (HCC)] Onset: 5 Episodic Residual codes; unclassified (1 source) 28 weeks gestation of ; Translations: [28 weeks gestation of (HCC)] Onset: 5 Episodic Unclassified (20 sources) [facility] - COMMON Onset: 4 02-17-2024 Unclassified (1 source) Other specified diseases and conditions complicating ; Translations: [Other specified diseases and conditions complicating ] Onset: 5 Unclassified (1 source) Cough, unspecified; Translations: [Cough, unspecified] Onset: 5 Unclassified (1 source) Class 2 obesity with body mass index (BMI) of 35.0 to 35.9 in adult, unspecified obesity type, unspecified whether serious comorbidity present; Translations: [Class 2 obesity with body mass index (BMI) of 35.0 to 35.9 in adult, unspecified obesity type, unspecified whether serious comorbidity present] Onset: 5 Unclassified (1 source) Initial OB Visit Onset: 4 Viral infection (1 source) Viral disease; Translations: [Viral infection, unspecified] 08-21-2023 Episodic Past or Other Problems Problem Classification Problem Date Documented Da te Episodic/Chronic Asthma (20 sources) Mild intermittent asthma; Translations: [Mild intermittent asthma with (acute) exacerbation] Onset: 08-09-2016 Resolved: 06-12-2021 06-24-2023 Chronic Other complications of (18 sources) Maternal obesity complicating , childbirth and the puerperium, antepartum; Translations: [Obesity complicating , third trimester] Onset: 08-13-2024 Resolved: 10-05-2024 07-20-2024 Chronic Other complications of (1 source) Decreased movements, second trimester, not applicable or unspecified; Translations: [Decreased movements in second trimester, single or unspecified fetus ([facility])] Onset: 06-21-2024 Episodic Other non-traumatic joint disorders (1 source) Pain in left ankle and joints of left foot; Translations: [Pain in left ankle and joints of left foot] Onset: 11-15-2023 Episodic Other and delivery including normal (20 sources) test positive; Translations: [Encounter for test, result positive] Onset: 02-21-2024 01-30-2024 Episodic Residual codes; unclassified (1 source) 13 weeks gestation of ; Translations: [13 weeks gestation of ] Onset: 05-25-2024 Episodic Residual codes; unclassified (1 source) Less than 8 weeks gestation of ; Translations: [7 weeks gestation of ] Onset: 04-03-2024 Episodic Residual codes; unclassified (1 source) Family history of other endocrine, nutritional and metabolic diseases; Translations: [Family history of thyroid disorder] Onset: 12-12-2023 Episodic Results Test Name Value Interpretation Reference Range Facil ity URINE OB DIP B/Oon 5 Glucose Ql (U) Negative Neg mg/dL [facility] Interpretation and review of laboratory results Normal [facility] Protein.monoclonal (U) [Mass/Vol] Negative Neg mg/dL [facility] URINE OB DIP B/Oon 5 Glucose Ql (U) Negative Neg mg/dL [facility] Protein.monoclonal (U) [Mass/Vol] Negative Neg mg/dL [facility] URINE OB DIP B/Oon 5 Glucose Ql (U) Negative Neg mg/dL [facility] Interpretation and review of laboratory results Normal [facility] Protein.monoclonal (U) [Mass/Vol] Negative Neg mg/dL [facility] ROUTINE, GROUP B ST REPTOCOCCUS BY PCRon 09-12-2024 ROUTINE, GROUP B STREPTOCOCCUS BY PCR Detected Abnormal [facility] Comment on above: Performed By: #### [facility] ####[facility] LABCLIA [id number] [place] [address] [place] URINE OB DIP B/Oon 5 Glucose Ql (U) Negative Neg mg/dL [facility] Protein.monoclonal (U) [Mass/Vol] trace Neg mg/dL [facility] 12 Lead EKGon 09-04-2024 12 Lead EKG [facility] Cardiovascular Services [address] [place] [address] 12 Lead EKG 09/04/24 1024 MR#: [id number] Acct: [id number] Name: AMIRAH WOODARD Rep #: [id number] : 2005 19 From: Flo Smith MD Attending Dr: Status: DEP ER Ordering Dr: Conrado Richardson MD Date: 09/04/24 Location: ED Sex: F C Admitted: Test Reason : SOB Blood Pressure : */* mmHG Vent. Rate : 113 BPM Atrial Rate : 113 BPM P-R Int : 134 ms QRS Dur : 90 ms QT Int : 334 ms P-R-T Axes : 37 63 9 degrees QTcB Int : 458 ms Sinus tachycardia Nonspecific T wave abnormality Abnormal ECG Confirmed by SARAH MUIR, FLO ([id number]), index editor KAREN WATERS ([id number]) on 09/05/2024 1:39:37 PM Referred By: Confirmed By: FLO SMITH MD 09/05/24 1339 Date Flo Smith MD CC: Dr. Conrado Richardson MD; Dr. Ruiz Vega, DO Signed Normal [facility] Absolute lymphocyte countOrd ered By: Conrado Richardson on 09-04-2024 Lymphocytes Auto (Unsp spec) [#/Vol] 1.97 10*3/uL 0.83-4.51 [facility] Absolute neutrophil countOrd ered By: Conrado Richardson on 09-04-2024 Neutrophils (Bld) [#/Vol] 8.4 10*3/uL High 2.0-7.7 [facility] Anion gap in Serum or Plasma Ordered By: Conrado Richardson on 09-04-2024 Anion gap [Moles/Vol] 11 mmol/L 5-[address] [facility] Automated lymphocyte count a s percentage of total leukocytesOrdered By: Conrado Richardson on 09-04-2024 Lymphocytes/100 WBC Auto (Unsp spec) 16.7 % Low 19-41 [facility] BUN/creatinine ratioOrdered By: Conrado Richardson on 09-04-2024 Urea nitrogen/Creatinine [Mass ratio] 15.7 mg/mg 10- [facility] Basic Metabolic Profile (BMP )on 09-04-2024 BUN/CRE 15.7 RATIO Normal - [facility] Comment on above: Performed By: #### L 100.0100, L500.2500, L501.4021 #### [facility] [address] [place], [address] Calcium [Mass/Vol] 8.7 mg/dL Normal 7.6-11.0 [facility] Comment on above: Performed By: #### L 100.0100, L500.2500, L501.4021 #### [facility] [address] [place], [address] Chloride [Moles/Vol] 105 mmol/L Normal 98-108 [facility] Comment on above: Performed By: #### L 100.0100, L500.2500, L501.4021 #### [facility] [address] [place], [address] CO2 [Moles/Vol] 20.3 mmol/L Low 21.0-32.0 [facility] Comment on above: Performed By: #### L 100.0100, L500.2500, L501.4021 #### [facility] [address] [place], [address] Creatinine [Mass/Vol] 0.45 mg/dL Low 0.70-1.[address] [facility] Comment on above: Performed By: #### L 100.0100, L500.2500, L501.4021 #### [facility] [address] [place], [address] ECRCL 226.86 ml/min Normal 50-250 [facility] Comment on above: Performed By: #### L 100.0100, L500.2500, L501.4021 #### [facility] [address] [place], [address] GAP 11 Normal 5-15 [facility] Comment on above: Performed By: #### L 100.0100, L500.2500, L501.4021 #### [facility] [address] [place], [address] GFR/1.73 sq M.predicted among non-blacks MDRD (S/P/Bld) [Vol rate/Area] 141 mL/min/{1.73_m2} Normal >60 [facility] Comment on above: Result Comment: mL/m in/1.73m2 CKD-EPI Creatinine Equation (2020) Performed By: #### L 100.0100, L500.2500, L501.4021 #### [facility] [address] [place], [address] Glucose [Mass/Vol] 91 mg/dL Normal 70-99 [facility] Comment on above: Performed By: #### L 100.0100, L500.2500, L501.4021 #### [facility] [address] [place], [address] Potassium [Moles/Vol] 3.8 mmol/L Normal 3.3-5.[address] [facility] Comment on above: Performed By: #### L 100.0100, L500.2500, L501.4021 #### [facility] [address] [place], [address] Sodium [Moles/Vol] 137 mmol/L Normal 133-145 [facility] Comment on above: Performed By: #### L 100.0100, L500.2500, L501.4021 #### [facility] [address] [place], [address] Urea nitrogen [Mass/Vol] 7 mg/dL Normal 4-19 [facility] Comment on above: Performed By: #### L 100.0100, L500.2500, L501.4021 #### [facility] [address] [place], [address] Basophil percentageOrdered B y: Conrado Richardson on 09-04-2024 Basophils/100 WBC (Bld) 0.5 % 0-1 [facility] CBC W/Diff, Automatedon Absolute Lymph 1.97 X10 3/uL Normal 0.83-4.51 [facility] Comment on above: Performed By: #### L 100.0100, L500.2500, L501.4021 #### [facility] [address] [place], [address] Absolute Neut 8.4 X10 3/uL High 2.0-7.7 [facility] Comment on above: Performed By: #### L 100.0100, L500.2500, L501.4021 #### [facility] [address] [place], [address] Basophils/100 WBC (Bld) 0.5 % Normal 0-1 [facility] Comment on above: Performed By: #### L 100.0100, L500.2500, L501.4021 #### [facility] [address] [place], [address] Eosinophils/100 WBC (Bld) 2.2 % Normal 0-5 [facility] Comment on above: Performed By: #### L 100.0100, L500.2500, L501.4021 #### [facility] [address] [place], [address] Erythrocyte distribution width (RBC) [Ratio] 13.2 % Normal 11.6-14.6 [facility] Comment on above: Performed By: #### L 100.0100, L500.2500, L501.4021 #### [facility] [address] [place], [address] Hematocrit (Bld) [Volume fraction] 35.4 % Low 37-47 [facility] Comment on above: Performed By: #### L 100.0100, L500.2500, L501.4021 #### [facility] [address] [place], [address] Hemoglobin (Bld) [Mass/Vol] 11.6 g/dL Low 12.0-15.0 [facility] Comment on above: Performed By: #### L 100.0100, L500.2500, L501.4021 #### [facility] [address] [place], [address] IG% 1.200 High 0.0-0.9 [facility] Comment on above: Result Comment: IG% - Immature Granulocytes (promyelocytes, myelocytes and metamyelocytes) > 1% indicates that a LEFT SHIFT is Present. Performed By: #### L 100.0100, L500.2500, L501.4021 #### [facility] [address] [place], [address] Lymphocytes/100 WBC (Bld) 16.7 % Low 19-41 [facility] Comment on above: Performed By: #### L 100.0100, L500.2500, L501.4021 #### [facility] [address] [place], [address] MCH (RBC) [Entitic mass] 27.5 pg Normal 27.0-32.0 [facility] Comment on above: Performed By: #### L 100.0100, L500.2500, L501.4021 #### [facility] [address] [place], [address] MCHC (RBC) [Mass/Vol] 32.8 g/dL Normal 32-[address] [facility] Comment on above: Performed By: #### L 100.0100, L500.2500, L501.4021 #### [facility] [address] [place], [address] MCV (RBC) [Entitic vol] 83.9 fL Normal 81-99 [facility] Comment on above: Performed By: #### L 100.0100, L500.2500, L501.4021 #### [facility] [address] [place], [address] Monocytes/100 WBC (Bld) 8.8 % Normal 0-10 [facility] Comment on above: Performed By: #### L 100.0100, L500.2500, L501.4021 #### [facility] [address] [place], [address] Neutrophils/100 WBC (Bld) 70.6 % High 47-70 [facility] Comment on above: Performed By: #### L 100.0100, L500.2500, L501.4021 #### [facility] [address] [place], [address] Nucleated RBC (Bld) [#/Vol] 0 10*3/uL Normal 0-5 [facility] Comment on above: Performed By: #### L 100.0100, L500.2500, L501.4021 #### [facility] [address] [place], [address] Platelet mean volume (Bld) [Entitic vol] 9.4 fL Normal 6.2-12.0 [facility] Comment on above: Performed By: #### L 100.0100, L500.2500, L501.4021 #### [facility] [address] [place], [address] Platelets (Bld) [#/Vol] 256 10*3/uL Normal 150-450 [facility] Comment on above: Performed By: #### L 100.0100, L500.2500, L501.4021 #### [facility] [address] [place], [address] RBC (Bld) [#/Vol] 4.22 10*6/uL Normal 4.2-5.4 [facility] Comment on above: Performed By: #### L 100.0100, L500.2500, L501.4021 #### [facility] [address] [place], [address] RDW SD 40.2 fl Normal 35.1-43.9 [facility] Comment on above: Performed By: #### L 100.0100, L500.2500, L501.4021 #### [facility] [address] [place], [address] WBC (Bld) [#/Vol] 11.8 10*3/uL High 4.4-11.0 [facility] Comment on above: Performed By: #### L 100.0100, L500.2500, L501.4021 #### [facility] [address] [place], [address] CNPNon 09-04-2024 CNPN Telephone (OBGYWM) AMIRAH WOODARD ([id number]) 3 F Date Time Provider Department 09/04/24 DELFINA WATSON OBFAVIO During your visit today, we recorded the following information about you: Delfina Watson APRN.CNM 09/04/2024 12:25 PM Signed Spoke with in ED. All work up normal. Patient D/Cd home. Delfina Watson APRN.Janelle Mayes MD 09/04/2024 2:01 PM Signed Noted. Thanks! Janelle Marin MD Allergies As of Date: 09/04/2024 Noted Allergy Reaction SEASONAL ALLERGIES 12/29/2017 14 - Other: See Comments Comments: Puffy itchy eyes and scratchy throat. Date Reviewed: 09/04/2024 Reviewed by: Cassie Abad MA - Fully Assessed Reason for Visit: Patient Update [1234] Prescriptions as of 09/04/2024 - loratadine (CLARITIN ORAL) Take by mouth as needed. - diphenhydramine HCl (BENADRYL ALLERGY ORAL) Take by mouth as needed. - fluticasone (FLONASE ALLERGY RELIEF) 50 mcg/actuation nasal spray Use 2 sprays in each nostril once daily. - Inoqedzw-Yo-Cim-Fe-FA tab Take 1 tablet by mouth once daily. With folic acid and DHA as covered by insurance. - albuterol HFA (PROVENTIL HFA, VENTOLIN HFA) 90 mcg/actuation inhaler Inhale 2 Puffs as instructed every 4 hours as needed for wheezing/shortness of breath. - aspirin, enteric coated (ECOTRIN LOW STRENGTH) 81 mg EC tablet Take 1 tablet by mouth once daily. Problem List As Of Date 09/04/2024 Noted Resolved Exercise-induced asthma with acute exacerbation* 7 06/12/2021 Gastroesophageal reflux disease [K21.9] 06/12/2021 Allergic rhinitis [J30.9] 07/13/2021 Supervision of high risk in third tri*02/21/2024 Obesity in [O99.210] 04/03/2024 Obesity complicating , third trimester*08/13/2024 Encounter Status:Closed by KIA SHELDON on 09/04/24 [facility] CTA Chest W/WO Contraston CTA Chest W/WO Contrast [facility] Imaging Services [address] [place], [place] [id number] CTA Chest W/WO Contrast MR#: [id number] Acct: [id number] Name: AMIRAH WOODARD Rep #: [id number] : 2005 F 19 From: Gurjit Moreno MD PCP: Dr. Ruiz Vega, DO Status: REG ER Study: CTA Chest W/WO Contrast Date of Exam: 09/04/24 Exam# [id number] Ordering Dr: Conrado Richardson MD PROCEDURE: CTA CHEST W/WO CONTRAST 09/04/2024 REASON FOR EXAM: 35 WEEKS WITH CHEST PAIN, DYSPNEA AND TAC TECHNIQUE: CTA CHEST W/WO CONTRAST Multiplanar Sagittal and Coronal images were obtained. 3D post processing was performed CONTRAST: Isovue 370 VOLUME: 100 mL One or more dose reduction techniques were used (e.g., Automated exposure control, adjustment of the mA and/or kV according to patient size, use of iterative reconstruction technique). RADIATION DOSE SUMMARY: CTDlvol: 30.06 mGy DLP: 469.45 mGycm COMPARISON: No comparison studies # of known CTs in the past 12 months: 0 # of known Cardiac Nuclear Medicine Studies in the past 12 months: 0 FINDINGS: No evidence of filling defects within the pulmonary arteries to suspect PE. The thoracic aorta tapers normally without aneurysm or dissection. Lung windows do not show evidence of a superimposed acute pulmonary process. No suspicious adenopathy Bony structures are unremarkable, limited cuts through the upper abdomen do not show a suspicious abnormality CT/CTA Chest W/WO Contrast IMPRESSION: No demonstrated PE, or thoracic aortic aneurysm or dissection No acute pulmonary process Reading Location: [facility] CC: Dr. Conrado Richardson MD; Dr. Ruiz Vega DO Senior Director Of [employer]: Signed Normal [facility] Carbon dioxide, total [Moles /volume] in Central venous bloodOrdered By: Conrado Richardson on 09-04-2024 CO2 [Moles/Vol] 20.3 mmol/L Low 21.0-32.0 [facility] Chloride assayOrdered By: Wilson Richardson on 09-04-2024 Chloride [Moles/Vol] 105 mmol/L 98-108 [facility] Emergency Department Summary on 09-04-2024 Emergency Department Summary [facility] Medical Records Department [address] [place] [address] Emergency Department Summary 09/04/24 MR#: [id number] Acct: [id number] Name: AMIRAH WOODARD Rep #: [id number] : 2005 19 From: Conrado Richardson MD PCP: Dr. Ruiz Vega DO Status:REG ER Location: ED HPI History of Present Illness Chief Complaint: Chest Pain Informant: patient Onset/Context/Timing Onset: Today and Hours Activity at onset: gradual Timing: Continuous Quality: Positive for Pain Current Severity: Mild Maximum Severity: Mild Worsened By: Nothing Relieved By: Nothing Associated Symptoms: Positive for Dyspnea; Negative for Nausea, Vomiting, Diaphoresis, Cough, Fever, Lightheadedness, Acid Reflux or Palpitations Narrative Narrative: 19-year-old female no significant past medical history. Currently 35 weeks . G1, P0 Ab0 due date October 09, 2024. This morning started having shortness of breath with chest discomfort that was diffuse. Lightheadedness. 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 Adrienne Marin. Who called me. Patient is being sent in to rule out pulmonary emboli. They did heart tones in the office and are currently not concerned with the itself. Patient has no history of DVT or PE. No recent surgery or hospitalization. No calf pain or hemoptysis. Prior Similar Symptoms: No Recent Illness/Hospitalizatio n: No CVD Risk Factors: Negative for Hypertension, Diabetes, Hypercholesterolemia or Smoking PE Risk Factors: Positive for - (35 weeks .); Negative for Recent Travel/Surgery, Recent Immobilization, Prior DVT or PE, Cancer or OCP + Smoking + >/=35 TAD Risk Factors: Negative for Marfan's Syndrome or Hypertension [facility] Medical History Left ankle pain Home Medications ???Medication ???Instructions ???Recorded ???Last Taken ???Type Lactobacillus 25 billion cap PO 10/04/23 Unknown History cell-Bifido 25 billion xdam-XSW-gwect capsule albuterol sulfate 90 mcg/actuation inhalation 10/04/23 Unknown Hist ory aerosol inhaler vits 75-iron 28 mg-folic pkg PO 02/24/24 Unknown History acid 800 mcg-omega-3 oral combo pack (One A Day Women's DHA) Allergy/AdvReac Type Severity Reaction Status Date / Time No Known Allergies Allergy Verified 09/04/24 10:12 Surgical History Hx of wisdom tooth extraction Hx of tonsillectomy Social History household members: spouse housing: house Smoking Status: Never smoker ROS ROS ED ROS Narrative Chest pain today dyspnea. Decelerated heart rate. Constitutional Constitutional ED: Denies fever(s) Eyes Eyes: Reports none ENT ENT ED: Denies ear pain Cardiovascular Cardiovascular: Reports as per HPI, chest pain, palpitations and racing heartbeat Respiratory/Chest Respiratory/Chest: Reports dyspnea; Denies cough Gastrointestinal Gastrointestinal: Denies abdominal pain, constipation, diarrhea, melena, nausea or vomiting Genitourinary Genitourinary ED: Denies dysuria or hematuria Musculoskeletal Musculoskeletal: Denies arthralgias or back pain Integumentary Denies abscess Neurologic Neurologic: Denies headache(s) Psychiatric Psychiatric: Denies anxiety Endocrine Endocrinology: Denies cold intolerance Hematologic/Lymphatic Hematologic/Lymphatic: Denies easy bleeding or easy bruising Allergic/Immunologic Allergic/Immunologic ED: Denies mouth swelling, tongue swelling or urticaria EXAM Physical Exam Narrative Exam Narrative: Well-appearing 19-year-old female. Vital signs stable initial heart rate in triage is 122 currently at 102. Her pulse ox is 98% on room air no hypoxia. She is in no distress. Significant other at bedside. H EENT exam pupils round react light. Extra motions are intact. Neck nontender no JVD. Lungs clear to auscultation bilaterally. Heart tachycardic 102 no murmur. Chest wall ribs nontender. Abdomen soft, nontender, nondistended, normal bowel sounds without peritoneal signs. She is gravid nontender abdomen. Moving all 4 extremities. Calves are nontender without cords. Trace edema at the ankles bilaterally. Dorsi plantarflexion intact. Normal butt maker strength. Normal radial pulses. Back nontender. Neurologically she is awake alert. Answering questions following commands. Const Vital Signs: 09/04/24 10:11 09/04/24 10:30 09/04/24 10:57 Temperature 96.1 F L Temperature Source Temporal Pulse Rate 122 H Respiratory Rate 14 Respiratory Effort Normal Non-Labored Blood Pressure 119/81 H Blood Pressure Mean 93 Pulse Ox 98 Oxygen Delivery Method Room Air Room Air Positive well nourished and well developed; Negative for ob (more content not included)... Normal [facility] Eosinophil percentageOrdered By: Conrado Richardson on 09-04-2024 Eosinophils/100 WBC (Bld) 2.2 % 0-5 [facility] Erythrocyte distribution wid th ratioOrdered By: Conrado Richardson on 09-04-2024 Erythrocyte distribution width (RBC) [Ratio] 13.2 % 11.6-14.6 [facility] Erythrocyte distribution wid th standard deviationOrdered By: Conrado Richardson on 09-04-2024 Erythrocyte distribution width (RBC) [Ratio] 40.2 fl 35.1-43.9 [facility] Glomerular filtration rate ( GFR) estimation/1.73 sq m using serum, plasma, or whole bOrdered By: Conrado Richardson on 09-04-2024 GFR/1.73 sq M.predicted among non-blacks MDRD (S/P/Bld) [Vol rate/Area] 141 mL/min/{1.73_m2} >60 [facility] Comment on above: mL/min/1.73m2 CKD-EP I Creatinine Equation (2020) Hematocrit Auto (Bld) [Volum e fraction]Ordered By: Conrado Richardson on 09-04-2024 Hematocrit (Bld) [Volume fraction] 35.4 % Low 37-47 [facility] Hemoglobin measurementOrdere d By: Conrado Richardson on 09-04-2024 Hemoglobin (Bld) [Mass/Vol] 11.6 g/dL Low 12.0-15.0 [facility] Immature granulocytes/100 WB C Auto (Bld)Ordered By: Conrado Richardson on 09-04-2024 Immature granulocytes/100 WBC (Bld) 1.200 % High 0.0-0.9 [facility] Comment on above: IG% - Immature Granu locytes (promyelocytes, myelocytes and metamyelocytes) > 1% indicates that a LEFT SHIFT is Present. L501.4021on 09-04-2024 Trop T High Sen 7 ng/L Normal <=14 [facility] Comment on above: Performed By: #### L 100.0100, L500.2500, L501.4021 #### [facility] [address] [place], [address] MCV (mean corpuscular volume ) determinationOrdered By: Conrado Richardson on 09-04-2024 MCV (RBC) [Entitic vol] 83.9 fL 81-99 [facility] Mean corpuscular hemoglobin (MCH) determinationOrdered By: Conrado Richardson on 09-04-2024 MCH (RBC) [Entitic mass] 27.5 pg 27.0-32.0 [facility] Mean corpuscular hemoglobin concentration (MCHC) determinationOrdered By: Conrado Richardson on 09-04-2024 MCHC (RBC) [Mass/Vol] 32.8 g/dL 32-[address] [facility] Mean platelet volume determi nationOrdered By: Conrado Richardson on 09-04-2024 Platelet mean volume (Bld) [Entitic vol] 9.4 fL 6.2-12.0 [facility] Monocyte percentageOrdered B y: Conrado Richardson on 09-04-2024 Monocytes/100 WBC (Bld) 8.8 % 0-10 [facility] Neutrophil percentageOrdered By: Conrado Richardson on 09-04-2024 Neutrophils/100 WBC (Bld) 70.6 % High 47-70 [facility] Nucleated red blood cell per centageOrdered By: Conrado Richardson on 09-04-2024 Nucleated RBC/100 WBC (Bld) [Ratio] 0 % 0-5 [facility] Platelet countOrdered By: Wilson Richardson on 09-04-2024 Platelets (Bld) [#/Vol] 256 10*3/uL 150-450 [facility] Potassium measurement (mass/ volume)Ordered By: Conrado Richardson on 09-04-2024 Potassium (Unsp spec) [Mass/Vol] 3.8 mmol/L 3.3-5.1 [facility] RBC Auto (Bld) [#/Vol]Ordere d By: Conrado Richardson on 09-04-2024 RBC (Bld) [#/Vol] 4.22 10*6/uL 4.2-5.4 [facility] Serum creatinine measurement (mass/volume)Ordered By: Conrado Richardson on 09-04-2024 Creatinine [Mass/Vol] 0.45 mg/dL Low 0.70-1.[address] [facility] Serum glucose measurement (m ass/volume)Ordered By: Conrado Richardson on 09-04-2024 Glucose [Mass/Vol] 91 mg/dL 70-99 [facility] Serum or plasma calcium tra urement (mass/volume)Ordered By: Conrado Richardson on 09-04-2024 Calcium [Mass/Vol] 8.7 mg/dL 7.6-11.0 [facility] Serum or plasma urea nitroge n measurement (mass/volume)Ordered By: Conrado Richardson on 09-04-2024 Urea nitrogen [Mass/Vol] 7 mg/dL 4-19 [facility] Sodium levelOrdered By: Conrado Richardson on 09-04-2024 Sodium [Moles/Vol] 137 mmol/L 133-145 [facility] Troponin T.cardiac [Mass/vol ume] in Serum or Plasma by High sensitivity methodOrdered By: Conrado Richardson on 09-04-2024 Troponin T.cardiac High sensitivity method [Mass/Vol] 7 ng/L <14 [facility] URINE OB DIP B/Oon 5 Glucose Ql (U) Negative Neg mg/dL [facility] Protein.monoclonal (U) [Mass/Vol] trace Neg mg/dL [facility] White blood cell (WBC) count Ordered By: Conrado Richardson on 09-04-2024 WBC (Bld) [#/Vol] 11.8 10*3/uL High 4.4-11.0 [facility] URINE OB DIP B/Oon 5 Glucose Ql (U) Negative Neg mg/dL [facility] Interpretation and review of laboratory results Normal [facility] Protein.monoclonal (U) [Mass/Vol] Negative Neg mg/dL [facility] CNOVon 08-13-2024 CNOV Office Visit (FAMPWS ) AMIRAH WOODARD ([id number]) 3 F Date Time Provider Department 08/13/24 9:20 AM RUIZ VEGA FAMPWS During your visit today, we recorded the following information about you: Temperature Pulse Respiration Blood pressure 96.4 degrees 88/minute 16/minute 90/60 Weight Height 95.7 kg 1.65 m Ruiz Vega DO 08/13/2024 10:11 AM Signed Subjective Danielleaileen Woodard is a 19-year-old female, 1 para 0, presenting for an initial visit and evaluation of -related symptoms. : - Currently 31-32 weeks gestation with a male fetus; ANA: October 09. - First . - care managed by Dr. Mckeon and team; next appointment scheduled with Rhonda. - Planning a vaginal delivery at [facility]. - Taking vitamins; denies nausea or emesis. - Denies significant morning sickness. - Reports increased appetite. - Experiencing fatigue and denies edema legs - History of left leg fracture in September of the previous year. - Severe acid reflux, managed with Tums; plans to discuss alternative treatments with OB. - Recent blood work performed at 28 weeks gestation. - Intends to breastfeed; has obtained a breast pump. - Strong support system, including in-laws and father living nearby. 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 Constitutional: (+) fatigue Cardiovascular: (+) bilateral leg swelling Gastrointestinal: (+) heartburn, (+) increased appetite, (-) nausea, (-) vomiting Objective Blood pressure 90/60, pulse 88, temperature (!) 35.8 ?C (96.4 ?F), temperature source Left Tympanic, resp. rate 16, height 165 cm (5' 4.96), weight 95.7 kg (211 lb), last menstrual period 01/03/2024. GENERAL: NAD, alert and oriented SKIN: unremarkable, no rash or skin lesions. HEAD: normocephalic EYES: PERRLA, EOMI, conjunctiva clear EARS: external ears normal, canals clear, TM's normal. NOSE/SINUSES: Nares normal. Septum midline. OROPHARYNX: lips, mucosa, and tongue normal, good dentition. No oral lesions noted. NECK: Supple, no lymphadenopathy, normal thyroid, no carotid bruits. LUNGS: Clear to auscultation bilaterally, no wheezes/rhonchi/rales. HEART: Regular rate and rhythm, no murmurs. No ectopy. EXTREMITIES: Normal, No deformities, No skin discoloration, No edema. NEURO: Awake, alert and oriented x3, cranial nerves II-XII grossly intact, normal gait, no involuntary motions ABD: gravid uterus, normal BS, no masses, normal BS Assessment AND Plan 1. Well adult exam (Z00.00) - Conducted comprehensive physical examination; lungs and heart auscultation normal. - Discussed follow-up to ensure physiological normalization; scheduled follow-up appointment for early December to assess post-delivery blood work, including thyroid function, vitamin levels, and iron levels. - Patient understands and agrees with the plan. 2. 31 weeks gestation of (HCC) (Z3A.31) - progressing well; no significant complications reported. - Blood pressure within normal limits - managed by OBGYN for care - Patient has a breast pump and is aware of support services available at the hospital. - Next OB appointment scheduled with Rhonda. 3. Class 2 obesity with body mass index (BMI) of 35.0 to 35.9 in adult, unspecified obesity type, unspecified whether serious comorbidity present (E66.812) - Emphasized importance of monitoring weight and maintaining a healthy diet. 4. Gastroesophageal reflux disease without esophagitis (K21.9) has some GERD symptoms; currently using Tums with limited relief. - Recommended discussing the use of an alternative medication with her OB, as it is safe during . - Advised elevating the head of the bed by 4-6 inches to reduce nocturnal acid reflux. - Patient understands and agrees with the plan. Recording using Breather software for draft documentation of the visit was discussed with the patient/authorized circulation sales representative; all questions welcomed and answered. Patient/authorized circulation sales representative agreed to proceed Allergies As of Date: 08/13/2024 Noted Allergy Reaction SEASONAL ALLERGIES 12/29/2017 14 - Other: See Comments Comments: Puffy itchy eyes and scratchy throat. Date Reviewed: 08/13/2024 Reviewed by: Fiona Wright LPN - Fully Assessed Reason for Visit: Establish Care [42] Primary Visit Diagnosis:Well adult exam [Z00.00] Other Visit Diagnoses:31 weeks gestation of (HCC) [Z3A.31] Class 2 obesity with body mass index (BMI) of 35.0 to 35.9 in adult, unspecified obesity type, unspecified whether serious comorbidity present [E66.812, Z68.35] Gastroesophageal reflux disease without esophagitis [K21.9] Prescriptions as of 08/13/2024 - loratadine (CLARITIN ORA (more content not included)... Normal [facility] CNPNon 08-06-2024 CNPN Telephone (OBGYWM) AMIRAH WOODARD ([id number]) 3 F Date Time Provider Department 08/06/24 [place] OBFAVIO During your visit today, we recorded the following information about you: Caroline Mora RN 08/06/2024 12:39 PM Signed Breast pump request received from [employer]. Order to provider to sign. JIA Shane Lindsey, RN 08/08/2024 9:13 AM Signed Order signed and faxed. Caroline Mora RN Allergies As of Date: 08/06/2024 Noted Allergy Reaction SEASONAL ALLERGIES 12/29/2017 14 - Other: See Comments Comments: Puffy itchy eyes and scratchy throat. Date Reviewed: 08/01/2024 Reviewed by: Nayla Dockery LPN - Fully Assessed Reason for Visit: breast pump [Other] Prescriptions as of 08/08/2024 - loratadine (CLARITIN ORAL) Take by mouth as needed. - diphenhydramine HCl (BENADRYL ALLERGY ORAL) Take by mouth as needed. - fluticasone (FLONASE ALLERGY RELIEF) 50 mcg/actuation nasal spray Use 2 sprays in each nostril once daily. - Gzoknudn-Oa-Axk-Fe-FA tab Take 1 tablet by mouth once daily. With folic acid and DHA as covered by insurance. - albuterol HFA (PROVENTIL HFA, VENTOLIN HFA) 90 mcg/actuation inhaler Inhale 2 Puffs as instructed every 4 hours as needed for wheezing/shortness of breath. - aspirin, enteric coated (ECOTRIN LOW STRENGTH) 81 mg EC tablet Take 1 tablet by mouth once daily. Problem List As Of Date 08/06/2024 Noted Resolved Exercise-induced asthma with acute exacerbation* 7 06/12/2021 Gastroesophageal reflux disease [K21.9] 06/12/2021 Allergic rhinitis [J30.9] 07/13/2021 BMI 32.0-32.9,adult [Z68.32] 02/21/2024 Supervision of high risk in third tri*02/21/2024 Obesity in [O99.210] 04/03/2024 Encounter Status:Closed by CAROLINE MORA on 08/08/24 [facility] AMIR[facility] WOOD[facility] ([id number]) 3 F Date Time Provider Department 08/03/24 NURSE TIRE SERVICER FR[facility]W NAVARRO OGFVWE During your visit today, we recorded the following information about you: Tio Hutchison, RN 08/03/2024 2:07 PM Signed 3rd risk assessment form submitted 08/03/24 Tio Hutchison RN Allergies As of Date: 08/03/2024 Noted Allergy Reaction SEASONAL ALLERGIES 12/29/2017 14 - Other: See Comments Comments: Puffy itchy eyes and scratchy throat. Date Reviewed: 08/01/2024 Reviewed by: Nayla Dockery LPN - Fully Assessed Reason for Visit: PRAF [4193] Prescriptions as of 08/03/2024 - loratadine (CLARITIN ORAL) Take by mouth as needed. - diphenhydramine HCl (BENADRYL ALLERGY ORAL) Take by mouth as needed. - fluticasone (FLONASE ALLERGY RELIEF) 50 mcg/actuation nasal spray Use 2 sprays in each nostril once daily. - Tjbxlott-Nk-Scp-Fe-FA tab Take 1 tablet by mouth once daily. With folic acid and DHA as covered by insurance. - albuterol HFA (PROVENTIL HFA, VENTOLIN HFA) 90 mcg/actuation inhaler Inhale 2 Puffs as instructed every 4 hours as needed for wheezing/shortness of breath. - aspirin, enteric coated (ECOTRIN LOW STRENGTH) 81 mg EC tablet Take 1 tablet by mouth once daily. Problem List As Of Date 08/03/2024 Noted Resolved Exercise-induced asthma with acute exacerbation* 7 06/12/2021 Gastroesophageal reflux disease [K21.9] 06/12/2021 Allergic rhinitis [J30.9] 07/13/2021 BMI 32.0-32.9,adult [Z68.32] 02/21/2024 Supervision of high risk in third tri*02/21/2024 Obesity in [O99.210] 04/03/2024 Encounter Status:Closed by TIO HUTCHISON on 08/03/24 Normal [facility] BILE ACIDS, TOTALon 08-02-19 25 Bile acid [Moles/Vol] 5.3 umol/L Normal <13.6 [facility] Comment on above: Order Comment: Speci men Type: SWAB Ordering Facility: [facility] Address: [address] [place] [address] Result Comment: Refe rence interval applies to non-fasting specimens. The total serum bile acid concentration is increased after meals; hence, samples should be collected under fasting conditions, when possible. This does not apply to patients for whom intrahepatic cholestasis of as a diagnostic consideration; these patients will need peak bile acid testing, and samples should be postprandial. This serum bile acid assay should not be used for patients receiving ursodeoxycholic acid, nor should it be used as the primary assay for the screening or diagnosis of genetic disorders of bile acid metabolism. Patient Reference Intervals: 0 Days to 5 Months: Not established 6 Months to 23 Months: <25.8 umol/L 2 Years to 4 Years: <20.9 umol/L 5 Years to 9 Years: <12.4 umol/L 10 Years to 19 Years: <13.6 umol/L 20 Years to 59 Years: <7.5 umol/L >=60 Years: <8.3 umol/L Reference Intervals (Non-fasting): First Trimester (up to 13 weeks gestation): < 15.3 umol/L Reference Interval (Non-fasting): Second Trimester (13 - 27 weeks gestation): < 11.4 umol/L Reference Interval (Non-fasting): Third Trimester (> 27 weeks gestation): < 10.4 umol/L Performed By: #### C BRUNILDA, ARTEMIO #### [facility] CLIA [id number] [place] CBC W Auto Differential pane l (Bld)on 08-01-2024 Basophils (Bld) [#/Vol] 0.09 10*3/uL [facility] Basophils/100 WBC (Bld) 0.6 % [facility] Differential cell count method Nom (Bld) Auto [facility] Eosinophils (Bld) [#/Vol] 0.82 10*3/uL [facility] Eosinophils/100 WBC (Bld) 5.8 % [facility] Erythrocyte distribution width (RBC) [Ratio] 12.6 % 11.5 - 15.0 % [facility] Hematocrit (Bld) [Volume fraction] 36.5 % 36.0 - 46.0 % [facility] Hemoglobin (Bld) [Mass/Vol] 12 g/dL 11.5 - 15.5 g/dL [facility] Immature granulocytes (Bld) [#/Vol] 0.25 10*3/uL [facility] Immature granulocytes/100 WBC (Bld) 1.8 % [facility] Interpretation and review of laboratory results Abnormal [facility] Lymphocytes (Bld) [#/Vol] 2.2 10*3/uL [facility] Lymphocytes/100 WBC (Bld) 15.6 % [facility] MCH (RBC) [Entitic mass] 28 pg 26.0 - 34.0 pg [facility] MCHC (RBC) [Mass/Vol] 32.9 g/dL 30.5 - 36.0 g/dL [facility] MCV (RBC) [Entitic vol] 85.3 fL 80.0 - 100.0 fL [facility] Monocytes (Bld) [#/Vol] 0.92 10*3/uL [facility] Monocytes/100 WBC (Bld) 6.5 % [facility] Neutrophils (Bld) [#/Vol] 9.86 10*3/uL High [facility] Neutrophils/100 WBC (Bld) 69.7 % [facility] Nucleated RBC (Bld) [#/Vol] NINF [facility] Nucleated RBC/100 WBC (Bld) [Ratio] 0 % /100 WBC [facility] Platelet mean volume (Bld) [Entitic vol] 9.1 fL 9.0 - 12.7 fL [facility] Platelets (Bld) [#/Vol] 282 10*3/uL [facility] RBC (Bld) [#/Vol] 4.28 10*6/uL 3.90 - 5.2 0 m/uL [facility] WBC (Bld) [#/Vol] 14.14 10*3/uL High [facility] Basophils (Bld) [#/Vol] 0.09 10*3/uL Normal <0.11 [facility] Comment on above: Order Comment: Speci men Type: BLOOD SPECIMENOrdering Facility: [facility] Address: [address] [place] [address] Performed By: #### 5 7021-8 ####[facility] [id number] [address] Basophils/100 WBC (Bld) 0.6 % Normal [facility] Comment on above: Order Comment: Speci men Type: BLOOD SPECIMENOrdering Facility: [facility] Address: [address] [place] [address] Performed By: #### 5 7021-8 ####[facility] [id number] [address] [place] [facility] Differential cell count method Nom (Bld) Auto Normal [facility] Comment on above: Order Comment: Speci men Type: BLOOD SPECIMENOrdering Facility: [facility] Address: [address] [place] [address] Performed By: #### 5 7021-8 ####[facility] [id number] [place] [address] [place] Eosinophils (Bld) [#/Vol] 0.82 10*3/uL High <0.46 [facility] Comment on above: Order Comment: Speci men Type: BLOOD SPECIMENOrdering Facility: [facility] Address: [address] [place] [address] Performed By: #### 5 7021-8 ####[facility]WNCL[facility] [id number] [place] [address] [place] Eosinophils/100 WBC (Bld) 5.8 % Normal [facility] Comment on above: Order Comment: Speci men Type: BLOOD SPECIMENOrdering Facility: [facility] Address: [address] [place] [address] Performed By: #### 5 7021-8 ####[facility]PITALNCMILVIA [id number] [place] [address] [place] Erythrocyte distribution width (RBC) [Ratio] 12.6 % Normal 11.5-15.0 [facility] Comment on above: Order Comment: Speci men Type: BLOOD SPECIMENOrdering Facility: [facility] Address: [address] [place] [address] Performed By: #### 5 7021-8 ####[facility] HOSPITALNCALMITAA [id number] [place] [address] [place] Hematocrit (Bld) [Volume fraction] 36.5 % Normal 36.0-46.0 [facility] Comment on above: Order Comment: Speci men Type: BLOOD SPECIMENOrdering Facility: [facility] Address: [address] [place] [address] Performed By: #### 5 7021-8 ####[facility]ITALNCLIA [id number] [place] [address] [place] Hemoglobin (Bld) [Mass/Vol] 12.0 g/dL Normal 11.5-15.5 [facility] Comment on above: Order Comment: Speci men Type: BLOOD SPECIMENOrdering Facility: [facility] Address: [address] [place] [address] Performed By: #### 5 7021-8 ####[facility] MICAHOSMANYA [id number] [place] [address] [place] Immature granulocytes (Bld) [#/Vol] 0.25 10*3/uL High <0.10 [facility] Comment on above: Order Comment: Speci men Type: BLOOD SPECIMENOrdering Facility: [facility] Address: [address] [place] [address] Performed By: #### 5 7021-8 ####[facility] [id number] [place] [address] [place] Immature granulocytes/100 WBC (Bld) 1.8 % Normal [facility] Comment on above: Order Comment: Speci men Type: BLOOD SPECIMENOrdering Facility: [facility] Address: [address] [place] [address] Performed By: #### 5 7021-8 ####[facility] [id number] [place] [address] [place] Lymphocytes (Bld) [#/Vol] 2.20 10*3/uL Normal 1.00-4.00 [facility] Comment on above: Order Comment: Speci men Type: BLOOD SPECIMENOrdering Facility: [facility] Address: [address] [place] [address] Performed By: #### 5 7021-8 ####[facility] [id number] [place] [address] [place] Lymphocytes/100 WBC (Bld) 15.6 % Normal [facility] Comment on above: Order Comment: Speci men Type: BLOOD SPECIMENOrdering Facility: [facility] Address: [address] [place] [address] Performed By: #### 5 7021-8 ####[facility]ITALNCL[facility] [id number] [place] [address] [place] MCH (RBC) [Entitic mass] 28.0 pg Normal 26.0-34.0 [facility] Comment on above: Order Comment: Speci men Type: BLOOD SPECIMENOrdering Facility: [facility] Address: [address] [place] [address] Performed By: #### 5 7021-8 ####[facility] [id number] [place] [address] [place] MCHC (RBC) [Mass/Vol] 32.9 g/dL Normal 30.5-36.0 [facility] Comment on above: Order Comment: Speci men Type: BLOOD SPECIMENOrdering Facility: [facility] Address: [address] [place] [address] Performed By: #### 5 7021-8 ####[facility] [id number] [place] [address] [place] MCV (RBC) [Entitic vol] 85.3 fL Normal 80.0-100.0 [facility] Comment on above: Order Comment: Speci men Type: BLOOD SPECIMENOrdering Facility: [facility] Address: [address] [place] [address] Performed By: #### 5 7021-8 ####[facility] [id number] [place] [address] [place] Monocytes (Bld) [#/Vol] 0.92 10*3/uL High <0.87 [facility] Comment on above: Order Comment: Speci men Type: BLOOD SPECIMENOrdering Facility: [facility] [facility] Address: [address] [place] [address] Performed By: #### 5 7021-8 ####[facility] [id number] [place] [id number] [place] Monocytes/100 WBC (Bld) 6.5 % Normal [facility] Comment on above: Order Comment: Speci men Type: BLOOD SPECIMENOrdering Facility: [facility] Address: [address] [place] [address] Performed By: #### 5 7021-8 ####[facility] [id number] [place] [address] [place] Neutrophils (Bld) [#/Vol] 9.86 10*3/uL High 1.45-7.50 [facility] Comment on above: Order Comment: Speci men Type: BLOOD SPECIMENOrdering Facility: [facility] Address: [address] [place] [address] Performed By: #### 5 7021-8 ####[facility] [id number] [place] [address] [place] Neutrophils/100 WBC (Bld) 69.7 % Normal [facility] Comment on above: Order Comment: Speci men Type: BLOOD SPECIMENOrdering Facility: [facility] Address: [address] [place] [address] Performed By: #### 5 7021-8 ####[facility] [id number] [place] [address] [place] Nucleated RBC (Bld) [#/Vol] 10*3/uL Normal <0.01 [facility] Comment on above: Order Comment: Speci men Type: BLOOD SPECIMENOrdering Facility: [facility] Address: [address] [place] [address] Performed By: #### 5 7021-8 ####[facility] [id number] [place] [address] [place] Nucleated RBC/100 WBC (Bld) [Ratio] 0.0 /100 WBC Normal [facility] Comment on above: Order Comment: Speci men Type: BLOOD SPECIMENOrdering Facility: [facility] Address: [address] [place] [address] Performed By: #### 5 7021-8 ####[facility] GERARDONCALMITAA [id number] [place] [address] [place] Platelet mean volume (Bld) [Entitic vol] 9.1 fL Normal 9.0-12.7 [facility] Comment on above: Order Comment: Speci men Type: BLOOD SPECIMENOrdering Facility: [facility] Address: [address] [place] [address] Performed By: #### 5 7021-8 ####[facility] MICAHBOLIVIANCMILVIA [id number] [place] [address] [place] Platelets (Bld) [#/Vol] 282 10*3/uL Normal 150-400 [facility] Comment on above: Order Comment: Speci men Type: BLOOD SPECIMENOrdering Facility: [facility] Address: [address] [place] [address] Performed By: #### 5 7021-8 ####[facility] [id number] [place] [address] [place] RBC (Bld) [#/Vol] 4.28 10*6/uL Normal 3.90-5.20 [facility] Comment on above: Order Comment: Speci men Type: BLOOD SPECIMENOrdering Facility: [facility] Address: [address] [place] [address] Performed By: #### 5 7021-8 ####[facility] [id number] [place] [address] [place] WBC (Bld) [#/Vol] 14.14 10*3/uL High 3.70-11.00 [facility] Comment on above: Order Comment: Speci men Type: BLOOD SPECIMENOrdering Facility: [facility] Address: [address] [place] [address] Performed By: #### 5 7021-8 ####[facility] [id number] [place] [address] [place] Comprehensive metabolic 2000 panelOrdered By: Jazmyn Joshua on 08-01-2024 Albumin [Mass/Vol] 3.4 g/dL Low 3.9 - 4.9 g/dL Cl [facility] ALP [Catalytic activity/Vol] 110 U/L 34 - 123 U/L [facility] ALT [Catalytic activity/Vol] 12 U/L 7 - 38 U/L [facility] Anion gap [Moles/Vol] 12 mmol/L 8 - 15 mmol/L [facility] AST [Catalytic activity/Vol] 12 U/L Low 13 - 35 U/L [facility] Bilirubin [Mass/Vol] 0.3 mg/dL 0.2 - 1.3 mg/dL [facility] Calcium [Mass/Vol] 9 mg/dL 8.5 - 10. 2 mg/dL [facility] Chloride [Moles/Vol] 105 mmol/L 98 - 107 mmol/L [facility] CO2 [Moles/Vol] 19 mmol/L Low 22 - 30 mmol/L [facility] Creatinine [Mass/Vol] 0.53 mg/dL Low 0.58 - 0.96 mg/dL [facility] GFR/1.73 sq M.predicted among non-blacks MDRD (S/P/Bld) [Vol rate/Area] 137 mL/min/{1.73_m2} - PINF [facility] Comment on above: Estimated Glomerular Filtration Rate (eGFR) is calculated using the 2020 CKD-EPI creatinine equation. This equation utilizes serum creatinine, sex, and age as parameters. The creatinine assay has traceable calibration to isotope dilution-mass spectrometry. Refer to KDIGO guidelines for clinical interpretation. In patients with unstable renal function, e.g. those with acute kidney injury, the eGFR may not accurately reflect actual GFR. Glucose [Mass/Vol] 91 mg/dL 74 - 99 mg/dL [facility] Comment on above: The [place] Diab[employer] [place] Association (ADA) provides guidance for cutoff values for fasting glucose and random glucose. The ADA defines fasting as no caloric intake for at least 8 hours. Fasting plasma glucose results between 100 to 125 mg/dL indicate increased risk for diabetes (prediabetes). Fasting plasma glucose results greater than or equal to 126 mg/dL meet the criteria for diagnosis of diabetes. In the absence of unequivocal hyperglycemia, results should be confirmed by repeat testing. In a patient with classic symptoms of hyperglycemia or hyperglycemic crisis, random plasma glucose results greater than or equal to 200 mg/dL meet the criteria for diagnosis of diabetes. Reference: Standards of Medical Care in Diabetes 2016, [place] [employer]. Diabetes Care. 2016.39(Suppl 1). Interpretation and review of laboratory results Abnormal [facility] Potassium [Moles/Vol] 3.9 mmol/L 3.7 - 5.1 mmol/L [facility] Protein [Mass/Vol] 6.3 g/dL 6.3 - 8.0 g/dL [facility] Sodium [Moles/Vol] 136 mmol/L 136 - 144 mmol/L [facility] Urea nitrogen [Mass/Vol] 9 mg/dL 7 - 21 mg/dL [facility] Comprehensive metabolic 2000 panelon 08-01-2024 Albumin [Mass/Vol] 3.4 g/dL Low 3.9-4.9 [facility] Comment on above: Order Comment: Speci men Type: SWAB [facility] Address: [address] [place] [address] Performed By: #### C VTV, BVAMP #### [facility] CLIA [id number] [address] [place] [address] [place] ALP [Catalytic activity/Vol] 110 U/L Normal 34-123 [facility] Comment on above: Order Comment: Speci men Type: SWAB [facility] Address: [address] [place] [address] Performed By: #### C VTV, BVAMP #### [facility] CLIA [id number] [address] [place] [address] [place] ALT [Catalytic activity/Vol] 12 U/L Normal 7-38 [facility] Comment on above: Order Comment: Speci men Type: SWAB [facility] Address: [address] [place] [address] Performed By: #### C VTV, BVAMP #### [facility] CLIA [id number] [address] [place] [address] [place] Anion gap [Moles/Vol] 12 mmol/L Normal 8-15 [facility] Comment on above: Order Comment: Speci men Type: SWAB [facility] Address: [address] [place] [address] Performed By: #### C VTV, BVAMP #### [facility] CLIA [id number] [address] [place] [address] [place] AST [Catalytic activity/Vol] 12 U/L Low 13-35 [facility] Comment on above: Order Comment: Speci men Type: SWAB [facility] Address: [address] [place] [address] Performed By: #### C VTV, BVAMP #### [facility] CLIA [id number] [address] [place] [address] [place] Bilirubin [Mass/Vol] 0.3 mg/dL Normal 0.2-1.3 [facility] Comment on above: Order Comment: Speci men Type: SWAB [facility] Address: [address] [place] [address] Performed By: #### C VTV, BVAMP #### [facility] CLIA [id number] [address] [place] [address] [place] Calcium [Mass/Vol] 9.0 mg/dL Normal 8.5-10.2 [facility] Comment on above: Order Comment: Speci men Type: SWAB [facility] Address: [address] [place] [address] Performed By: #### C VTV, BVAMP #### [facility] CLIA [id number] [address] [place] [address] [place] Chloride [Moles/Vol] 105 mmol/L Normal 98-107 [facility] Comment on above: Order Comment: Speci men Type: SWAB [facility] Address: [address] [place] [address] Performed By: #### C VTV, BVAMP #### [facility] CLIA [id number] [address] [place] [address] [place] CO2 [Moles/Vol] 19 mmol/L Low 22-30 [facility] Comment on above: Order Comment: Speci men Type: SWAB [facility] Address: [address] [place] [address] Performed By: #### C VTV, BVAMP #### [facility] CLIA [id number] [address] [place] [address] [place] Creatinine [Mass/Vol] 0.53 mg/dL Low 0.58-0.96 [facility] Comment on above: Order Comment: Speci men Type: SWAB [facility] Address: [address] [place] [address] Performed By: #### C VTV, BVAMP #### [facility] CLIA [id number] [address] [place] [address] [place] Creatinine and Glomerular filtration rate.predicted panel (S/P/Bld) 137 mL/min/1.73m??? Normal >=60 [facility] Comment on above: Order Comment: Speci men Type: SWAB [facility]: [facility] Address: [address] [place] [address] Result Comment: Ketty mated Glomerular Filtration Rate (eGFR) is calculated using the 2020 CKD-EPI creatinine equation. This equation utilizes serum creatinine, sex, and age as parameters. The creatinine assay has traceable calibration to isotope dilution-mass spectrometry. Refer to KDIGO guidelines for clinical interpretation. In patients with unstable renal function, e.g. those with acute kidney injury, the eGFR may not accurately reflect actual GFR. Performed By: #### C VTV, BVAMP #### [facility] CLIA [id number] [address] [place] [address] [place] Glucose [Mass/Vol] 91 mg/dL Normal 74-99 [facility] Comment on above: Order Comment: Speci men Type: SWAB [facility]: [facility] Address: [address] [place] [address] Result Comment: The [place] Diabetes Association (ADA) provides guidance for cutoff values for fasting glucose and random glucose. The ADA defines fasting as no caloric intake for at least 8 hours. Fasting plasma glucose results between 100 to 125 mg/dL indicate increased risk for diabetes (prediabetes). Fasting plasma glucose results greater than or equal to 126 mg/dL meet the criteria for diagnosis of diabetes. In the absence of unequivocal hyperglycemia, results should be confirmed by repeat testing. In a patient with classic symptoms of hyperglycemia or hyperglycemic crisis, random plasma glucose results greater than or equal to 200 mg/dL meet the criteria for diagnosis of diabetes. Reference: Standards of Medical Care in Diabetes 2016, [place] [employer]. Diabetes Care. 2016.39(Suppl 1). Performed By: #### C VTV, BVAMP #### [facility] CLIA [id number] [address] [place] [address] [place] Potassium [Moles/Vol] 3.9 mmol/L Normal 3.7-5.1 [facility] Comment on above: Order Comment: Speci men Type: SWAB [facility] Address: [address] [place] [address] Performed By: #### C VTV, BVAMP #### [facility] CLIA [id number] [address] [place] [address] [place] Protein [Mass/Vol] 6.3 g/dL Normal 6.3-8.0 [facility] Comment on above: Order Comment: Speci men Type: SWAB [facility] Address: [address] [place] [address] Performed By: #### C VTV, BVAMP #### [facility] CLIA [id number] [address] [place] [address] [place] Sodium [Moles/Vol] 136 mmol/L Normal 136-144 [facility] Comment on above: Order Comment: Speci men Type: SWAB [facility] Address: [address] [place] [address] Performed By: #### C VTV, BVAMP #### [facility] CLIA [id number] [address] [place] [address] [place] Urea nitrogen [Mass/Vol] 9 mg/dL Normal 7-21 [facility] Comment on above: Order Comment: Speci men Type: SWAB [facility] Address: [address] [place] [address] Performed By: #### C VTV, BVAMP #### [facility] CLIA [id number] [address] [place] [address] [place] BACTERIAL VAGINOSIS NAATon 0 - Lactobacillus crispatus+gasseri+imelda enii + Gardnerella vaginalis + Atopobium vaginae rRNA MEG+probe Ql (Vag fld) Not detected Normal Not detected [facility] Comment on above: Order Comment: Speci men Type: SWABOrdering Facility: [facility] Address: [address] [place] [address] Performed By: #### C VTV, BVAMP ####[facility] LABCLIA [id number] [place] [address] [place] FRANCO/TRICHOMONAS NAATon 0 07-20-2024 C. glabrata RNA MEG+probe Ql (Vag fld) Not detected Normal Not detected [facility] Comment on above: Order Comment: Speci men Type: SWABOrdering Facility: [facility] Address: [address] [place] [address] Performed By: #### C VTV, BVAMP ####[facility] LAB[facility]IA [id number] [address] [place] Franco sp DNA MEG+probe Ql (Vag fld) Not detected Normal Not detected [facility] Comment on above: Order Comment: Speci men Type: SWABOrdering Facility: [facility] Address: [address] [place] [address] Result Comment: The Franco species group target includes C. albicans, C. tropicalis, C. parapsilosis, and C. dubliniensis. Performed By: #### C VTV, BVAMP ####[facility] LABCLIA [id number] [address] [place] T. vaginalis DNA MEG+probe Ql (Unsp spec) Not detected Normal Not detected [facility] Comment on above: Order Comment: Speci men Type: SWABOrdering Facility: [facility] Address: [address] [place] [address] Performed By: #### C VTV, BVAMP ####[facility] LABCLIA [id number] [place] [address] [place] CBC W Auto Differential pane l (Bld)on 07-20-2024 Basophils (Bld) [#/Vol] 0.07 10*3/uL Normal <0.11 [facility] Comment on above: Order Comment: Speci men Type: BLOOD SPECIMEN [facility] Address: [address] [place] [address] Performed By: #### 5 7021-8 #### [facility] CLIA [id number] [address] [place] [address] [place] Basophils/100 WBC (Bld) 0.5 % Normal [facility] Comment on above: Order Comment: Speci men Type: BLOOD SPECIMEN [facility]: [facility] Address: [address] [place] [address] Performed By: #### 5 7021-8 #### [facility] CLIA [id number] [address] [place] [address] [place] Differential cell count method Nom (Bld) Auto Normal [facility] Comment on above: Order Comment: Speci men Type: BLOOD SPECIMEN [facility] Address: [address] [place] [address] Performed By: #### 5 7021-8 #### [facility] CLIA [id number] [address] [place] [address] [place] Eosinophils (Bld) [#/Vol] 0.58 10*3/uL High <0.46 [facility] Comment on above: Order Comment: Speci men Type: BLOOD SPECIMEN [facility]: [facility] Address: [address] [place] [address] Performed By: #### 5 7021-8 #### [facility] CLIA [id number] [address] [place] [address] [place] Eosinophils/100 WBC (Bld) 4.3 % Normal [facility] Comment on above: Order Comment: Speci men Type: BLOOD SPECIMEN [facility]: [facility] Address: [address] [place] [address] Performed By: #### 5 7021-8 #### [facility] CLIA [id number] [address] [place] [address] [place] Erythrocyte distribution width (RBC) [Ratio] 12.7 % Normal 11.5-15.0 [facility] Comment on above: Order Comment: Speci men Type: BLOOD SPECIMEN [facility] Facility: [facility] Address: [address] [place] [address] Performed By: #### 5 7021-8 #### [facility] CLIA [id number] [address] [place] [address] [place] Hematocrit (Bld) [Volume fraction] 35.8 % Low 36.0-46.0 [facility] Comment on above: Order Comment: Speci men Type: BLOOD SPECIMEN [facility] Facility: [facility] Address: [address] [place] [address] Performed By: #### 5 7021-8 #### [facility] CLIA [id number] [address] [place] [address] [place] Hemoglobin (Bld) [Mass/Vol] 11.8 g/dL Normal 11.5-15.5 [facility] Comment on above: Order Comment: Speci men Type: BLOOD SPECIMEN [facility] Facility: [facility] Address: [address] [place], [place] [address] Performed By: #### 5 7021-8 #### [facility] CLIA [id number] [address] [place] [address] [place] Immature granulocytes (Bld) [#/Vol] 0.15 10*3/uL High <0.10 [facility] Comment on above: Order Comment: Speci men Type: BLOOD SPECIMEN [facility]: [facility] Address: [address] [place] [address] Performed By: #### 5 7021-8 #### [facility] CLIA [id number] [address] [place] [address] [place] Immature granulocytes/100 WBC (Bld) 1.1 % Normal [facility] Comment on above: Order Comment: Speci men Type: BLOOD SPECIMEN [facility] Facility: [facility] Address: [address] [place] [address] Performed By: #### 5 7021-8 #### [facility] CLIA [id number] [address] [place] [address] [place] Lymphocytes (Bld) [#/Vol] 2.19 10*3/uL Normal 1.00-4.00 [facility] Comment on above: Order Comment: Speci men Type: BLOOD SPECIMEN [facility] Facility: [facility] Address: [address] [place] [address] Performed By: #### 5 7021-8 #### [facility] CLIA [id number] [address] [place], [place] [address] [place] Lymphocytes/100 WBC (Bld) 16.1 % Normal [facility] Comment on above: Order Comment: Speci men Type: BLOOD SPECIMEN [facility]ing Facility: [facility] Address: [address] [place] [address] Performed By: #### 5 7021-8 #### [facility] CLIA [id number] [address] [place] [address] [place] MCH (RBC) [Entitic mass] 28.7 pg Normal 26.0-34.0 [facility] Comment on above: Order Comment: Speci men Type: BLOOD SPECIMEN [facility]ing Facility: [facility] Address: [address] [place] [address] Performed By: #### 5 7021-8 #### [facility] CLIA [id number] [address] [place] [address] [place] MCHC (RBC) [Mass/Vol] 33.0 g/dL Normal 30.5-36.0 [facility] Comment on above: Order Comment: Speci men Type: BLOOD SPECIMEN [facility]ing Facility: [facility] Address: [address] [place] [address] Performed By: #### 5 7021-8 #### [facility] CLIA [id number] [address] [place] [address] [place] MCV (RBC) [Entitic vol] 87.1 fL Normal 80.0-100.0 [facility] Comment on above: Order Comment: Speci men Type: BLOOD SPECIMEN [facility]ing Facility: [facility] Address: [address] [place] [address] Performed By: #### 5 7021-8 #### [facility] CLIA [id number] [address] [place] [address] [place] Monocytes (Bld) [#/Vol] 0.86 10*3/uL Normal <0.87 [facility] Comment on above: Order Comment: Speci men Type: BLOOD SPECIMEN [facility]ing Facility: [facility] Address: [address] [place] [address] Performed By: #### 5 7021-8 #### [facility] CLIA [id number] [address] [place] [address] [place] Monocytes/100 WBC (Bld) 6.3 % Normal [facility] Comment on above: Order Comment: Speci men Type: BLOOD SPECIMEN [facility]ing Facility: [facility] Address: [address] [place] [address] Performed By: #### 5 7021-8 #### [facility] CLIA [id number] [address] [place] [address] [place] Neutrophils (Bld) [#/Vol] 9.79 10*3/uL High 1.45-7.50 [facility] Comment on above: Order Comment: Speci men Type: BLOOD SPECIMEN [facility]ing Facility: [facility] Address: [address] [place] [address] Performed By: #### 5 7021-8 #### [facility] CLIA [id number] [address] [place] [address] [place] Neutrophils/100 WBC (Bld) 71.7 % Normal [facility] Comment on above: Order Comment: Speci men Type: BLOOD SPECIMEN Ordering Facility: [facility] Address: [address] [place] [address] Performed By: #### 5 7021-8 #### [facility] CLIA [id number] [address] [place] [address] [place] Nucleated RBC (Bld) [#/Vol] 10*3/uL Normal <0.01 [facility] Comment on above: Order Comment: Speci men Type: BLOOD SPECIMEN [facility]ing Facility: [facility] Address: [address] [place] [address] Performed By: #### 5 7021-8 #### [facility] CLIA [id number] [address] [place] [address] [place] Nucleated RBC/100 WBC (Bld) [Ratio] 0.0 /100 WBC Normal [facility] Comment on above: Order Comment: Speci men Type: BLOOD SPECIMEN [facility] [facility] Address: [address] [place] [address] Performed By: #### 5 7021-8 #### [facility] CLIA [id number] [address] [place] [address] [place] Platelet mean volume (Bld) [Entitic vol] 9.0 fL Normal 9.0-12.7 [facility] Comment on above: Order Comment: Speci men Type: BLOOD SPECIMEN Ordering Facility: [facility] Address: [address] [place] [address] Performed By: #### 5 7021-8 #### [facility] CLIA [id number] [address] [place] [address] [place] Platelets (Bld) [#/Vol] 269 10*3/uL Normal 150-400 [facility] Comment on above: Order Comment: Speci men Type: BLOOD SPECIMEN Ordering Facility: [facility] Address: [address] [place] [address] Performed By: #### 5 7021-8 #### [facility] CLIA [id number] [address] [place] [address] [place] RBC (Bld) [#/Vol] 4.11 10*6/uL Normal 3.90-5.20 [facility] Comment on above: Order Comment: Speci men Type: BLOOD SPECIMEN Ordering Facility: [facility] Address: [address] [place] [address] Performed By: #### 5 7021-8 #### [facility] CLIA [id number] [address] [place] [address] [place] WBC (Bld) [#/Vol] 13.64 10*3/uL High 3.70-11.00 [facility] Comment on above: Order Comment: Speci antonio Type: BLOOD SPECIMEN Ordering Facility: [facility] Address: [address] [place] [address] Performed By: #### 5 7021-8 #### [id number] [address] [place] [address] [place] GESTATIONAL GLUCOSE SCREEN, 1-HOUR, 50 GRAM, NON-FASTINGon 07-20-2024 Glucose [Mass/Vol] 116 mg/dL Normal 74-134 [facility] Comment on above: Order Comment: Violeta alvarez Type: BLOOD SPECIMENOrdering Facility: [facility] Address: [address] [place] [address] Result Comment: [facility] Congress of Obstetricians and Gynecologists (Emir/Shon) guidelines state a gestational diabetes mellitus positive screen is made, in women not previously diagnosed with overt diabetes, when the 1 hr plasma glucose level is equal to or above 140 mg/dL. The [facility] Tension Worker and [facility] [place] recommends a 135 mg/dL cutoff. Performed By: #### G LTGST ####[facility] [id number] [place] [address] [place] Reagin and Treponema pallidu m IgG and IgM [Interp]on 07-20-2024 T. pallidum IgG+IgM IA Ql (S) Non-Reactive Normal Nonreactive [facility] Comment on above: Order Comment: Speci men Type: BLOOD SPECIMENOrdering Facility: [facility] Address: [address] [place] [address] Performed By: #### 7 3752-8 ####[facility] LABCLIA [id number] [place] [address] [place] Reagin+T pallidum IgG+IgM Se rPl-Impon 07-20-2024 Reagin and Treponema pallidum IgG and IgM [Interp] Cannot exclude recent Treponemal infection if specimen collected within 7-10 days after appearance of suspect lesions or 2-3 weeks after an exposure. Clinical correlation is required. Normal [facility] Comment on above: Order Comment: Speci men Type: BLOOD SPECIMENOrdering Facility: [facility] Address: [address] [place], [place] [address] [address] Performed By: #### 7 3752-8 ####[facility] LABCLIA [id number] [facility]IC[facility] DUNBAR [id number] [place] [address] [facility] CNPNon 07-19-2024 CNPN Telephone (OBGYWM) AMIRAH WOODARD ([id number]) 3 F Date Time Provider Department 07/19/24 CASTILLO MCKEON OBGYWM During your visit today, we recorded the following information about you: Kia Sheldon RN 07/19/2024 4:23 PM Signed 28w2d Patient called to report that she has not felt the baby move since this morning. Inquired if she did kick counts today. Patient has not. Advised that she would need to go to [facility] for evaluation given the office hours. Instructed patient how to do kick counts if she wanted to see how many movements she has in an hour first. Updated HANDP faxed to [facility]. JIA Bundy Rebecca L, MD 07/19/2024 4:27 PM Signed noted. thanks. Castillo Mckeon MD Allergies As of Date: 07/19/2024 Noted Allergy Reaction SEASONAL ALLERGIES 12/29/2017 14 - Other: See Comments Comments: Puffy itchy eyes and scratchy throat. Date Reviewed: 06/21/2024 Reviewed by: Shree Santos MA - Fully Assessed Reason for Visit: Decreased FM [Other] Prescriptions as of 07/19/2024 - Dxqjkwdn-Fw-Agf-Fe-FA tab Take 1 tablet by mouth once daily. With folic acid and DHA as covered by insurance. - albuterol HFA (PROVENTIL HFA, VENTOLIN HFA) 90 mcg/actuation inhaler Inhale 2 Puffs as instructed every 4 hours as needed for wheezing/shortness of breath. - aspirin, enteric coated (ECOTRIN LOW STRENGTH) 81 mg EC tablet Take 1 tablet by mouth once daily. Problem List As Of Date 07/19/2024 Noted Resolved Exercise-induced asthma with acute exacerbation* 7 06/12/2021 Gastroesophageal reflux disease [K21.9] 06/12/2021 Allergic rhinitis [J30.9] 07/13/2021 BMI 32.0-32.9,adult [Z68.32] 02/21/2024 Supervision of normal first teen in f*02/21/2024 Obesity in [O99.210] 04/03/2024 Encounter Status:Closed by VIVIAN ADAMS on 07/19/24 Normal [facility] UA DIP, URINE (POC)on 2024 BILIRUBIN UA (POCT) Negative Negative [facility] CLARITY UA (POCT) Clear [facility] COLOR UA (POCT) Yellow [facility] GLUCOSE UA (POCT) Negative Negative mg/dL [facility] Hemoglobin Ql (U) Negative Negative [facility] Interpretation and review of laboratory results Abnormal [facility] KETONE UA (POCT) Negative Negative mg/dL [facility] LEUKOCYTES UA (POCT) Trace Abnormal Negative [facility] NITRITE UA (POCT) Negative Negative [facility] PH UA (POCT) 7 4.5 - 8.0 [facility] Protein Ql (U) Negative Negative mg/dL [facility] SPECIFIC GRAVITY UA (POCT) 1.025 1.005 - 1.030 [facility] UROBILINOGEN UA (POCT) 0.2 Normal E.U./d L [facility] Location:[facility], [address] , [place], [address] [facility] POINT OF CARE [facility] Examination level ultrasound on 05-29-2024 Indication Detailed anatomic survey Maternal obesity, BMI >30 Impression REMOTE READ The patient is referred for a detailed anatomic survey. - Single, live, intrauterine . - biometry is consistent with the established gestational age. - No malformations were visualized on a complete detailed anatomic survey. - The amniotic fluid volume is normal amount. - The placenta is posterior, fundal. - The Transabdominal cervical length measures 41.9 mm with no evidence of funneling or other dynamic changes. - Not all structural malformations can be detected by ultrasound examination. Recommendations Additional follow-up as clinically indicated. Maternal Assessment Height 163 cm Height (ft) 5 ft Height (in) 4 in Physical Exam Initial weight (lb) 188 lb Initial BMI 32.27 kg/m Maternal assessment other: 1 Para 0 Method Transabdominal ultrasound examination. View: Suboptimal view: limited by position. Suboptimal view: limited by maternal body habitus Spencer . Number of fetuses: 1 Dating LMP on: 01/03/2024 GA by LMP 20 w + 3 d ANA by LMP: 10/09/2024 GA by prior assessment 20 w + 3 d ANA by prior assessment: 10/09/2024 Ultrasound examination on: 05/25/2024 GA by U/S based upon: AC, BPD, Femur, HC GA by U/S 20 w + 6 d ANA by U/S: 10/06/2024 Assigned: based on stated ANA, selected on 05/25/2024 Assigned GA 20 w + 3 d Assigned ANA: 10/09/2024 General Evaluation Cardiac activity present. FHR 153 bpm. movements: present. Presentation: breech Placenta: Placental site: posterior, fundal Umbilical cord: Cord vessels: 3 vessel cord Amniotic fluid: Amount of AF: normal amount. MVP 5.0 cm Growth Overview Exam date GA BPD (mm) HC (mm) AC (mm) FL (mm) HL (mm) EFW (g) 05/25/2024 20w 3d 47.8 51% 183.3 59% 160.7 68% 34.7 81% 34.4 90% 391 74% Biometry Standard BPD 47.8 mm 20w 3d 51% Hadlock OFD 66.2 mm 20w 6d 90% Nicolaides HC 183.3 mm 20w 5d 59% Roberta Cerebellum tr 21.2 mm 20w 1d 59% Hill Nuchal fold 4.3 mm AC 160.7 mm 21w 1d 68% Hadlock Femur 34.7 mm 21w 1d 81% Roberta Humerus 34.4 mm 21w 5d 90% Roberta EFW 391 g 20w 6d 74% Hadlock EFW (lb) 0 lb EFW (oz) 14 oz EFW by: Hadlock (HC-AC-FL) Extended Lens Grinder And Polisher 5.0 mm CM 4.4 mm 28% Nicolaides Extremities / Bony Struc FL / HC 0.19 55% Hadlock Other Structures FHR 153 bpm Anatomy Cranium: normal Lateral ventricles: normal Choroid plexus: normal Midline falx: normal Cavum septi pellucidi: normal Cerebellum: normal Cisterna magna: normal Head / Neck Vermis: normal Neck: normal Nuchal fold: normal Lips: normal Profile: normal Nose: normal Face Maxilla: normal Mandible: normal Orbits: normal Lens: normal 4-chamber view: normal RVOT view: normal LVOT view: normal 3-vessel view: normal 1-khypch-okkegtb view: normal Heart / Thorax Situs: situs solitus (normal) Aortic arch view: normal SVC: normal IVC: normal Cardiac axis: normal Rt lung: normal Lt lung: normal Diaphragm: normal Cord insertion: normal Stomach: normal Kidneys: normal Bladder: normal Genitals: normal Abdomen Abdom. wall: normal Cervical spine: normal Thoracic spine: normal Lumbar spine: normal Sacral spine: normal Arms: normal Legs: normal Rt upper arm: normal Rt forearm: normal Rt hand: normal Rt fingers: normal Lt upper arm: normal Lt forearm: normal Lt hand: normal Lt fingers: normal Rt upper leg: normal Rt lower leg: normal Rt foot: normal Lt upper leg: normal Lt lower leg: normal Lt foot: normal sex: male Wants to know sex: yes Maternal Structures Uterus / Cervix Uterus: Visualized Cervix: Visualized Approach: Transabdominal Cervical length 41.9 mm Other: Patient declined transvaginal ultrasound for cervical length. Ovaries / Tubes / Adnexa Rt ovary: Visualized Lt ovary: Visualized Performed By: Caroline Vides RDMS, RVT Read By: Kermit Carmen M.D. MATERNAL MEDICINE [facility] Rodrick 05-28-2024 [facility] AMIRAH WOODARD ([id number]) 3 F Date Time Provider Department 05/28/24 NURSE TIRE SERVICER MANISHA BRICENO OGFVWE During your visit today, we recorded the following information about you: Tio Hutchison, RN 05/28/2024 12:09 PM Signed 2nd risk assessment form submitted 05/28/24 Tio Hutchison RN Allergies As of Date: 05/28/2024 Noted Allergy Reaction SEASONAL ALLERGIES 12/29/2017 14 - Other: See Comments Comments: Puffy itchy eyes and scratchy throat. Date Reviewed: 05/25/2024 Reviewed by: Kia Lucero MD - Fully Assessed Reason for Visit: PRAF [4193] Prescriptions as of 05/28/2024 - Fwthriuu-Tc-Xpl-Fe-FA tab Take 1 tablet by mouth once daily. With folic acid and DHA as covered by insurance. - albuterol HFA (PROVENTIL HFA, VENTOLIN HFA) 90 mcg/actuation inhaler Inhale 2 Puffs as instructed every 4 hours as needed for wheezing/shortness of breath. - aspirin, enteric coated (ECOTRIN LOW STRENGTH) 81 mg EC tablet Take 1 tablet by mouth once daily. Problem List As Of Date 05/28/2024 Noted Resolved Exercise-induced asthma with acute exacerbation* 7 06/12/2021 Gastroesophageal reflux disease [K21.9] 06/12/2021 Allergic rhinitis [J30.9] 07/13/2021 BMI 32.0-32.9,adult [Z68.32] 02/21/2024 Supervision of normal first teen in f*02/21/2024 Obesity in [O99.210] 04/03/2024 Encounter Status:Closed by TIO HUTCHISON on 05/28/24 Normal [facility] Examination level ultrasound on 05-25-2024 Radiology Study observation (narrative) [facility] Rodrick 05-01-2024 CNPN Telephone (OBGYWM) AMIRAH WOODARD ([id number]) 3 F Date Time Provider Department 05/01/24 JANELLE MARIN OBGYWKai During your visit today, we recorded the following information about you: Vivian Adams RN 05/01/2024 2:45 PM Signed 17w0d Calling concerned about leaking fluid. Noticed underwear were saturated this afternoon and didn't seem like normal discharge, was just liquid like consistency. From what she can tell clear in color. No vaginal odor, itching or irritation. Wasn't enough to soak through onto pants. Advised to put on pad and continue to monitor. Advised discharge can increase as continues. To call if continues to be larger amount, discolored, odor, itching or irritation with it. Please advise. JIA Swanson Karmon, MD 05/01/2024 3:32 PM Signed Noted AND agree with recommendations. If patient has increased LOF tonight I recommend going to [facility]. MD Monalisa Oleary Jennifer, RN 05/01/2024 3:44 PM Signed Left message for patient to call office. Kia Sheldon RN Allergies As of Date: 05/01/2024 Noted Allergy Reaction SEASONAL ALLERGIES 12/29/2017 14 - Other: See Comments Comments: Puffy itchy eyes and scratchy throat. Date Reviewed: 04/27/2024 Reviewed by: Shree Santos MA - Fully Assessed Reason for Visit: Question (OB Question) [7725] Prescriptions as of 05/01/2024 - Jibrinyc-Iq-Xfi-Fe-FA tab Take 1 tablet by mouth once daily. With folic acid and DHA as covered by insurance. - albuterol HFA (PROVENTIL HFA, VENTOLIN HFA) 90 mcg/actuation inhaler Inhale 2 Puffs as instructed every 4 hours as needed for wheezing/shortness of breath. - aspirin, enteric coated (ECOTRIN LOW STRENGTH) 81 mg EC tablet Take 1 tablet by mouth once daily. Problem List As Of Date 05/01/2024 Noted Resolved Exercise-induced asthma with acute exacerbation* 7 06/12/2021 Gastroesophageal reflux disease [K21.9] 06/12/2021 Allergic rhinitis [J30.9] 07/13/2021 BMI 32.0-32.9,adult [Z68.32] 02/21/2024 Supervision of normal first teen in f*02/21/2024 Obesity in [O99.210] 04/03/2024 Encounter Status:Closed by KIA SHELDON on 05/01/24 Normal [facility] Emergency Department Summary on 04-28-2024 Emergency Department Summary [facility] Medical Records Department [address] [place] [address] Emergency Department Summary 04/28/24 MR#: [id number] Acct: [id number] Name: AMIRAH WOODARD Rep #: [id number] : 2005 18 From: Shraddha HAYDEN PCP: Dr. Que Chavez MD Status:DEP ER Location: ED HPI History of Present Illness Chief Complaint: General Illness Narrative Narrative: 18-year-old female is 16 weeks and developed congestion yesterday and this morning the fatigue, chills, body aches, headache and cough. She works in the [employer] and has been around patients with different respiratory viruses. She called her [employer] PROGRAM[employer] who recommended she come in and be screened for the flu. She also has urinary frequency today but no burning or hematuria. She has no abdominal pain or vaginal bleeding or discharge. [facility] Medical History Left ankle pain Home Medications ???Medication ???Instructions ???Recorded ???Last Taken ???Type Lactobacillus 25 billion cap PO 10/04/23 Unknown History cell-Bifido 25 billion nitg-CKS-xnabi capsule albuterol sulfate 90 mcg/actuation inhalation 10/04/23 Unknown Hist ory aerosol inhaler vits 75-iron 28 mg-folic pkg PO 02/24/24 Unknown History acid 800 mcg-omega-3 oral combo pack (One A Day Women's DHA) Allergy/AdvReac Type Severity Reaction Status Date / Time No Known Allergies Allergy Verified 04/28/24 20:25 Surgical History Hx of wisdom tooth extraction Hx of tonsillectomy Social History (Updated 04/28/24 @ 21:21 by Lindsey Ruff) household members: spouse housing: house Smoking Status: Never smoker ROS ROS ED ROS Narrative Constitutional: Positive for chills, malaise. Negative for fever. ENT: Positive rhinorrhea. CVS: Negative for chest pain. Respiratory: Positive for cough. Negative for shortness of breath. GI: Positive for nausea. Negative for abdominal pain, nausea, vomiting, diarrhea. EXAM Physical Exam Narrative Exam Narrative: CONST: Patient sitting in no acute distress. EYES: Normal inspection. ENT: Normal inspection, moist mucous membranes. NECK: Normal inspection. RESP: No respiratory distress, CTAB. CVS: Regular rate and rhythm, no murmur, no gallop. ABD: Soft and nontender, no guarding or rebound, nondistended. SKIN: Color normal, no rash, warm, dry, intact. EXTREMITIES: Normal appearance, no pedal edema. NEURO: Alert and answering questions appropriately. PSYCH: Normal affect. Const Vital Signs: 04/28/24 20:25 04/28/24 21:21 Temperature 98.2 F Temperature Source Oral Pulse Rate 100 Respiratory Rate 18 Respiratory Effort Normal Non-Labored Respiratory Pattern Normal Blood Pressure 126/88 H Blood Pressure Mean 100 Pulse Ox 100 Oxygen Delivery Method Room Air Physical Exam Const Vital Signs: 04/28/24 20:25 04/28/24 21:21 Temperature 98.2 F Temperature Source Oral Pulse Rate 100 Respiratory Rate 18 Respiratory Effort Normal Non-Labored Respiratory Pattern Normal Blood Pressure 126/88 H Blood Pressure Mean 100 Pulse Ox 100 Oxygen Delivery Method Room Air MDM MDM MDM Narrative Medical decision making narrative: Differential: Viral illness, pneumonia, meningitis, UTI 18-year-old female is 16 weeks presenting with acute myalgias and upper respiratory symptoms. She also has urinary frequency. She has no abdominal pain or bleeding. She appears well and nontoxic. He is afebrile. Vital signs stable. Overall her exam is completely benign. She reports a headache but has no focal neurological deficits and no signs of meningitis and this is in the context of other viral symptoms. Respiratory test is negative for COVID, influenza, RSV. Urinalysis is negative. She had some improvement in her headache after Reglan and Benadryl. She has a nonfocal neurological exam so does not need a CT brain or further testing. I suspect she has a viral URI and recommended Tylenol and follow-up with her [employer]. She was discharged in stable condition. Lab Data Attestation: I reviewed the patient's lab results. Labs: Laboratory Results - last 24 hr 04/28/24 20:42 Urine Color Yellow Urine Clarity Clear Urine pH 6.0 Ur Specific [place] 1.015 Urine Protein 15 H Urine Glucose (UA) Normal Urine Ketones Negative Urine Occult Blood Negative Urine Nitrite Negative Urine Bilirubin Negative Urine Urobilinogen Normal Ur Leukocyte Esterase Negative Urine RBC 0 SEEN Urine WBC 0 SEEN Ur Squamous Epith Cells 0 SEEN Urine Bacteria 0 SEEN Urine Mucus 0 SEEN MDM Lab Data Labs: Laborator (more content not included)... Normal [facility] M100.678on 04-28-2024 M100.678 SARS-CoV-2 (COVID 19 ) Negative INFLUENZA A Negative INFLUENZA B Negative RSV PCR Negative Normal [facility] Comment on above: Performed By: #### M 100.678 #### [facility] [address] [place], [address] Urinalysis, Completeon 04-28 RBC 0 SEEN Normal 0-5 [facility] Comment on above: Order Comment: CLEAN CATCH Performed By: #### L 400.0001 #### [facility] [address] [place], [address] BACTERIA 0 SEEN Normal None Seen [facility] Comment on above: Order Comment: CLEAN CATCH Performed By: #### L 400.0001 #### [facility] [address] [place], [address] EPI,SQUAMOUS 0 SEEN Normal 5-10 [facility] Comment on above: Order Comment: CLEAN CATCH Performed By: #### L 400.0001 #### [facility] [address] [place], [address] Mucus Ql (Urine sed) 0 SEEN Normal [facility] Comment on above: Order Comment: CLEAN CATCH Performed By: #### L 400.0001 #### [facility] [address] [place], [place], [address] WBC 0 SEEN Normal 0-5 [facility] Comment on above: Order Comment: CLEAN CATCH Performed By: #### L 400.0001 #### [facility] [address] [place], [address] CNPNon 04-13-2024 CNPN Telephone (OBGYWM) AMIRAH WOODARD ([id number]) 3 F Date Time Provider Department 04/13/24 LA DEL CASTILLO During your visit today, we recorded the following information about you: Marisela Lopez, RN 04/13/2024 9:02 AM Signed 14w3d Few weeks Pt states she has noticed that when she stands up/bends/squats/laying to sit she gets light headed/vision gets spotty/feeling as though she is going to pass out. States her HR ranges from 90-120/130 on watch and pulse ox. Sometimes feeling heart race.Seems to be getting worse. More frequently, noticing heart skipping beats. Pt has asthma. Pt reports shortness of breath is present only with activity. Pt denies CP/Chest heaviness. Swelling noted in legs-elevating legs. Sitting for few minutes before standing Drinking approx 200-250mL daily.Eating enough protein. Feels like getting enough sleep.Taking vitamin. Does not feel like she's under a of stress. Pt states she saw MEKA 04/03/24 and states these sx were present then and did not mention and feels they are getting worse. Advised Pt to continue taking , continue eating protein filled diet, drinking plenty of fluids, elevating legs when sitting, get rest when she can, to get up slowly from a sitting to standing position, to not drive if dizzy/light headed, and to go to ER if she begins with CP/or shortness of breath at rest and/or worsening with activity. Pt's next appt isn't until 04/27/24. Please advise. JIA Scott Courtney, APRN.CNM 04/13/2024 9:31 AM Signed Agree with plan of care. May try wearing compression stockings if on feet as well. This can help with blood flow back to to heart/head. La Del Castillo APRN.Caroline Garcia RN 04/13/2024 9:38 AM Signed Patient notified and voiced understanding. Caroline Mora RN Allergies As of Date: 04/13/2024 Noted Allergy Reaction SEASONAL ALLERGIES 12/29/2017 14 - Other: See Comments Comments: Puffy itchy eyes and scratchy throat. Date Reviewed: 04/03/2024 Reviewed by: Leah Villaseñor MA - Fully Assessed Prescriptions as of 04/13/2024 - albuterol HFA (PROVENTIL HFA, VENTOLIN HFA) 90 mcg/actuation inhaler Inhale 2 Puffs as instructed every 4 hours as needed for wheezing/shortness of breath. - aspirin, enteric coated (ECOTRIN LOW STRENGTH) 81 mg EC tablet Take 1 tablet by mouth once daily. - vit no.124/iron/folic ( VITAMIN ORAL) Take 1 tablet by mouth once daily. Problem List As Of Date 04/13/2024 Noted Resolved Exercise-induced asthma with acute exacerbation* 7 06/12/2021 Gastroesophageal reflux disease [K21.9] 06/12/2021 Allergic rhinitis [J30.9] 07/13/2021 BMI 32.0-32.9,adult [Z68.32] 02/21/2024 Supervision of normal first teen in f*02/21/2024 Obesity in [O99.210] 04/03/2024 Encounter Status:Closed by LA DEL CASTILLO on 04/13/24 Normal [facility] nuchal translucency me asured by Quentin 04-03-2024 Indication First trimester anatomic survey Maternal obesity, BMI >30 Impression REMOTE READ The patient is referred for a first trimester anatomy scan including nuchal translucency measurement as clinically indicated. - Single, live, intrauterine . - [place] rump length measurement is consistent with the established gestational age. - A qualitative screen of the nuchal translucency and other anatomic structures was unremarkable on a complete first trimester anatomic assessment. - Not all structural malformations can be detected by ultrasound examination. Maternal Structures: Right Ovary: Size 18 mm x 22 mm x 15 mm Left Ovary: Size 26 mm x 17 mm x 14 mm Recommendations - A standard anatomic survey at 16 weeks and a detailed exam at 20 weeks is recommended for increased risk. Maternal Assessment Height 163 cm Height (ft) 5 ft Height (in) 4 in Physical Exam Initial weight (lb) 188 lb Initial BMI 32.27 kg/m Maternal assessment other: 1 Para 0 Method Transabdominal ultrasound examination Spencer . Number of fetuses: 1 Dating LMP on: 01/03/2024 GA by LMP 13 w + 0 d ANA by LMP: 10/09/2024 GA by prior assessment 13 w + 0 d ANA by prior assessment: 10/09/2024 Ultrasound examination on: 04/03/2024 GA by U/S based upon: CRL GA by U/S 13 w + 2 d ANA by U/S: 10/07/2024 Assigned: based on stated ANA, selected on 04/03/2024 Assigned GA 13 w + 0 d Assigned ANA: 10/09/2024 General Evaluation Cardiac activity present Placenta: posterior Cord vessels: 3 vessel cord Amniotic fluid: normal amount Biometry Standard FHR 150 bpm CRL 70.6 mm 13w 2d 63% [facility] First Trimester Anatomy Calvarium: normal Falx cerebri: normal Choroid plexus: normal Profile: normal Nasal bone: normal Retronasal triangle: normal Maxilla: normal Mandible: normal Nuchal translucency: Unremarkable Situs: normal Cardiac position: normal Cardiac axis: normal 4-chamber view: normal 4-chamber view with color: normal 1-aazbbw-mripook view: normal Abdominal cord insertion: normal Stomach: normal Kidneys: normal Bladder: normal Color doppler of perivesical umbilical arteries: normal Vertebral alignment: normal Arms: normal Hands: normal Legs: normal Feet: normal Maternal Structures Uterus / Cervix Uterus: Visualized Uterus length 144 mm Uterus width 100 mm Uterus height 70 mm Uterus Vol 526.0 cm Ovaries / Tubes / Adnexa Rt ovary: Visualized Rt ovary D1 18 mm Rt ovary D2 22 mm Rt ovary D3 15 mm Rt ovary Vol 3.2 cm Lt ovary: Visualized Lt ovary D1 26 mm Lt ovary D2 17 mm Lt ovary D3 14 mm Lt ovary Vol 3.2 cm Performed By: Caroline Vides, TARAN, RVT Read By: Marietta Burr M.D. MATERNAL MEDICINE [facility] Radiology Study observation (narrative) [facility] BACTERIAL VAGINOSIS NAATon 0 03-28-2024 Lactobacillus crispatus+gasseri+imelda enii + Gardnerella vaginalis + Atopobium vaginae rRNA MEG+probe Ql (Vag fld) Not detected Normal Not detected [facility] Comment on above: Order Comment: Speci men Type: SWABOrdering Facility: [facility] Address: [address] [place] [address] Performed By: #### C VTV, BVAMP ####[facility] LABCLIA [id number] [place] [address] [place] FRANCO/TRICHOMONAS NAATon 0 03-28-2024 C. glabrata RNA MEG+probe Ql (Vag fld) Not detected Normal Not detected [facility] Comment on above: Order Comment: Speci men Type: SWABOrdering Facility: [facility] Address: [address] [place] [address] Performed By: #### C VTV, BVAMP ####[facility] LABCLIA [id number] [place] [address] [place] Franco sp DNA MEG+probe Ql (Vag fld) Detected Abnormal Not detected [facility] Comment on above: Order Comment: Speci men Type: SWABOrdering Facility: [facility] Address: [address] [place] [address] Result Comment: The Franco species group target includes C. albicans, C. tropicalis, C. parapsilosis, and C. dubliniensis. Performed By: #### C VTV, BVAMP ####[facility] LABCLIA [id number] [address] [facility] T. vaginalis DNA MEG+probe Ql (Unsp spec) Not detected Normal Not detected [facility] Comment on above: Order Comment: Speci men Type: SWABOrdering Facility: [facility] Address: [address] [place] [address] Performed By: #### C VTV, BVAMP ####[facility] LABCLIA [id number] [address] [facility] CNPSherine 03-22-2024 CNPN Telephone (OBGYWM) AMIRAH WOODARD ([id number]) 3 F Date Time Provider Department 03/22/24 LA DEL CASTILLO OBGYWKai During your visit today, we recorded the following information about you: Caroline Moar RN 03/22/2024 8:16 AM Signed Patient 11w2d calling with questions in regards to medication she was prescribed for a sinus infection. Patient was prescribed Amoxicillin 1000 mg BID. Patient wanting to know if that dosage is ok with . JIA Shane Courtney, APRN.CNM 03/22/2024 8:28 AM Signed Yes. BETSEY Mays Lindsey, RN 03/22/2024 9:06 AM Signed Patient notified and voiced understanding. Caroline Mora RN Allergies As of Date: 03/22/2024 Noted Allergy Reaction SEASONAL ALLERGIES 12/29/2017 14 - Other: See Comments Comments: Puffy itchy eyes and scratchy throat. Date Reviewed: 03/19/2024 Reviewed by: Josiane Goodwin APRN.BANDAGE WINDING MACHINE OPERATOR - Fully Assessed Reason for Visit: Medication Question [2508] Prescriptions as of 03/22/2024 - amoxicillin (AMOXIL) 500 mg capsule Take 2 capsules by mouth two times a day for 7 days. - aspirin, enteric coated (ECOTRIN LOW STRENGTH) 81 mg EC tablet Take 1 tablet by mouth once daily. - vit no.124/iron/folic ( VITAMIN ORAL) Take 1 tablet by mouth once daily. - albuterol HFA (PROVENTIL HFA, VENTOLIN HFA) 90 mcg/actuation inhaler Inhale 2 Puffs as instructed every 4 hours as needed for wheezing/shortness of breath. Problem List As Of Date 03/22/2024 Noted Resolved Exercise-induced asthma with acute exacerbation* 7 06/12/2021 Gastroesophageal reflux disease [K21.9] 06/12/2021 Allergic rhinitis [J30.9] 07/13/2021 BMI 32.0-32.9,adult [Z68.32] 02/21/2024 Supervision of normal first teen in f*02/21/2024 Encounter Status:Closed by LA DEL CASTILLO on 03/22/24 [facility] CNOVon 03-19-2024 CNOV Office Visit (PEDSWS ) AMIRAH WOODARD ([id number]) 3 F Date Time Provider Department 03/19/24 1:45 PM JOSIANE GOODWIN PEDSWS During your visit today, we recorded the following information about you: Temperature Pulse Respiration Weight 98.2 degrees 84/minute 16/minute 87.6 kg Josiane Goodwin, TEXTILE ENGRAVER.BANDAGE WINDING MACHINE OPERATOR 03/20/2024 9:03 PM Signed PEDIATRIC SICK VISIT SUBJECTIVE: Amirah Woodard is a 18 year old Patient presents with: Cough: X 1.5 wks referral to adult doctor: Currently 11 wks History was obtained from: patient and EMR Current symptoms: Was at last week Has shortness of breath Mucous Coming up all the time, not just with coughing Cough for about a week Sometimes dry Sometimes productive No XR Did run strep at and that was negative Coughing will not go away Headache off and on In neck Others frontal Does not feel that nose is super stuffy Sometimes so dry that it hurts to breathe. 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 Medications: aspirin, enteric coated (ECOTRIN LOW STRENGTH) 81 mg EC tablet Take 1 tablet by mouth once daily. vit no.124/iron/folic ( VITAMIN ORAL) Take 1 tablet by mouth once daily. albuterol HFA (PROVENTIL HFA, VENTOLIN HFA) 90 mcg/actuation inhaler Inhale 2 Puffs as instructed every 4 hours as needed for wheezing/shortness of breath. OBJECTIVE: Pulse 84 Temp 36.8 ?C (98.2 ?F) (Temporal) Resp 16 Wt 87.6 kg (193 lb 2 oz) LMP 01/03/2024 (Exact Date) BMI 33.15 kg/m? General: alert and active in no apparent distress Eyes: conjunctiva clear Ears: TMs translucent bilaterally, normal landmarks noted Nose: clear rhinorrhea/nasal congestion, purulent rhinorrhea, mucosal erythema, mucosal edema OP: no lesions, no erythema Neck: supple, no adenopathy Lungs: clear to auscultation bilaterally, good air exchange, no retractions CVS: Normal rate, regular rhythm, no murmur Abdomen: soft, nondistended Skin: No rashes, lesions or skin changes Head: normocephalic Neuro: No focal deficits or abnormal findings present ASSESSMENT/PLAN: Encounter Diagnosis ICD-10-CM 1. Acute non-recurrent frontal sinusitis J01.10 amoxicillin (AMOXIL) 500 mg capsule DISCONTINUED: amoxicillin (AMOXIL) 500 mg capsule SINUSITIS PLAN: - Antibiotics: Amoxicillin High Dose - Verified safety with - Amoxicillin appears more safe than Augmentin but both safe. - Follow up as needed if symptoms not resolved after treatment or sooner if worsening symptoms. - Appointment scheduled with Adult provider while in office today. Josiane Goodwin APRN.BANDAGE WINDING MACHINE OPERATOR Allergies As of Date: 03/19/2024 Noted Allergy Reaction SEASONAL ALLERGIES 12/29/2017 14 - Other: See Comments Comments: Puffy itchy eyes and scratchy throat. Date Reviewed: 03/19/2024 Reviewed by: Josiane Goodwin APRN.BANDAGE WINDING MACHINE OPERATOR - Fully Assessed Reason for Visit: Cough [28] Cmt: X 1.5 wks referral to adult doctor [Other] Cmt: Currently 11 wks Primary Visit Diagnosis:Acute non-recurrent frontal sinusitis [J01.10] Order(s):amoxicillin (AMOXIL) 500 mg capsuleTake 2 capsules by mouth two times a day for 7 days.Disp: 28 capsuleRfl: 0 Prescriptions as of 03/20/2024 - amoxicillin (AMOXIL) 500 mg capsule Take 2 capsules by mouth two times a day for 7 days. - aspirin, enteric coated (ECOTRIN LOW STRENGTH) 81 mg EC tablet Take 1 tablet by mouth once daily. - vit no.124/iron/folic ( VITAMIN ORAL) Take 1 tablet by mouth once daily. - albuterol HFA (PROVENTIL HFA, VENTOLIN HFA) 90 mcg/actuation inhaler Inhale 2 Puffs as instructed every 4 hours as needed for wheezing/shortness of breath. Problem List As Of Date 03/19/2024 Noted Resolved Exercise-induced asthma with acute exacerbation* 7 06/12/2021 Gastroesophageal reflux disease [K21.9] 06/12/2021 Allergic rhinitis [J30.9] 07/13/2021 BMI 32.0-32.9,adult [Z68.32] 02/21/2024 Supervision of normal first teen in f*02/21/2024 Prescriptions ordered this encounter Disp Refills Start End AMOXICILLIN 500 MG CAPSULE 28 c* 0 03/19/2024 03/19/2024 Rou (more content not included)... Normal [facility] CNOVon 03-13-2024 CNOV Office Visit (UCWSTR ) AMIRAH WOODARD ([id number]) 3 F Date Time Provider Department 03/13/24 1:00 PM ROBERTO POWERS [facility] During your visit today, we recorded the following information about you: Temperature Pulse Respiration Blood pressure 97.6 degrees 87/minute 18/minute 110/72 Weight 87.1 kg Roberto Powers PA-C 03/13/2024 12:33 PM Signed This note was created using Elastrariter. Subjective Amirah Woodard is a 18 year old female. Patient is a 18-year-old female who complains of recurring episodes of sore throat that she has been experiencing for the past 2 weeks. Patient denies congestion, sinus pressure or ear pain but does report a mild cough. Patient denies fever, chills or myalgia. Patient is in her first trimester at 10 weeks. Patient is taking vitamins. Patient has no history of GERD and is not experiencing hyperemesis episodes. Sore Throat Review of Systems HENT: Positive for sore throat. All other systems reviewed and are negative. Objective BP 110/72 Pulse 87 Temp 36.4 ?C (97.6 ?F) (Tympanic) Resp 18 Wt 87.1 kg (192 lb 0.3 oz) LMP 01/03/2024 (Exact Date) SpO2 98% BMI 32.96 kg/m? Physical Exam Vitals and nursing note reviewed. Constitutional: Appearance: Normal appearance. She is normal weight. HENT: Head: Normocephalic and atraumatic. Right Ear: Tympanic membrane, ear canal and external ear normal. Left Ear: Tympanic membrane, ear canal and external ear normal. Nose: Nose normal. Mouth/Throat: Mouth: Mucous membranes are moist. Pharynx: Oropharynx is clear. No oropharyngeal exudate or posterior oropharyngeal erythema. Eyes: Extraocular Movements: Extraocular movements intact. Conjunctiva/sclera: Conjunctivae normal. Pupils: Pupils are equal, round, and reactive to light. Cardiovascular: Rate and Rhythm: Normal rate and regular rhythm. Pulses: Normal pulses. Heart sounds: Normal heart sounds. Pulmonary: Effort: Pulmonary effort is normal. Breath sounds: Normal breath sounds. Musculoskeletal: Cervical back: Normal range of motion and neck supple. Skin: General: Skin is warm and dry. Capillary Refill: Capillary refill takes less than 2 seconds. Neurological: General: No focal deficit present. Mental Status: She is alert and oriented to person, place, and time. Psychiatric: Mood and Affect: Mood normal. Behavior: Behavior normal. Thought Content: Thought content normal. Judgment: Judgment normal. Assessment and Plan Fully unremarkable physical exam findings as noted above. Patient appears to be in excellent health at the present time. Rapid strep PCR is negative. Supportive care instructions were discussed and the patient was advised to see her [employer] MAINFRAME SYSTEMS PROGRAMMER for further evaluation and management. CLINICAL IMPRESSION: Sore Throat ASSESSMENT/PLAN: 1. Sore throat - ICD9: 462, ICD10: J02.9 - STREP A MOLECULAR (POC) Roberto Powers PA-C Allergies As of Date: 03/13/2024 Noted Allergy Reaction SEASONAL ALLERGIES 12/29/2017 14 - Other: See Comments Comments: Puffy itchy eyes and scratchy throat. Date Reviewed: 03/13/2024 Reviewed by: Ping Barber LPN - Fully Assessed Reason for Visit: Sore Throat [200] Cmt: ST x 2 weeks and nose is very dry Primary Visit Diagnosis:Sore throat [J02.9] Order(s):STREP A MOLECULAR (POC) [2208600] Order #: [id number]. #:[id number] Prescriptions as of 03/13/2024 - aspirin, enteric coated (ECOTRIN LOW STRENGTH) 81 mg EC tablet Take 1 tablet by mouth once daily. - vit no.124/iron/folic ( VITAMIN ORAL) Take 1 tablet by mouth once daily. - albuterol HFA (PROVENTIL HFA, VENTOLIN HFA) 90 mcg/actuation inhaler Inhale 2 Puffs as instructed every 4 hours as needed for wheezing/shortness of breath. Problem List As Of Date 03/13/2024 Noted Resolved Exercise-induced asthma with acute exacerbation* 7 06/12/2021 Gastroesophageal reflux disease [K21.9] 06/12/2021 Allergic rhinitis [J30.9] 07/13/2021 BMI 32.0-32.9,adult [Z68.32] 02/21/2024 Supervision of normal first teen in f*02/21/2024 Level of Service: OFFICE/OUTPATIENT NEW LOW MDM 30 MINUTES [85686] Encounter Status:Closed by ROBERTO POWERS on 03/13/24 Normal [facility] [id number] PLUSon 03-13-2024 Cell-free DNA./Cell-free DNA.total Dosage of chromosome-specific cfDNA (cfDNA) [Molar fraction] 18% Normal [facility] Comment on above: Order Comment: Speci men Type: BLOOD SPECIMENOrdering Facility: [facility] Address: [address] [place] [address] Performed By: #### M AT21 ####[facility] LABCLIA [id number] [place] [address] Chr 13+18+21+X+Y aneuploidy Dosage of chromosome-specific cfDNA Ql (cfDNA) Negative Normal [facility] Comment on above: Order Comment: Speci men Type: BLOOD SPECIMENOrdering Facility: [facility] Address: [address] [place] [address] Performed By: #### M AT21 ####[facility] LABCLIA [id number] [place] [address] Chr 21 trisomy Dosage of chromosome-specific cfDNA Ql (cfDNA) Negative Normal [facility] Comment on above: Order Comment: Speci men Type: BLOOD SPECIMENOrdering Facility: [facility] Address: [address] [place] [address] Performed By: #### M AT21 ####[facility] LABCLIA [id number] [place] [address] Chr X and Y aneuploidy risk Sequencing Ql (cfDNA) [Interp] Not detected Normal [facility] Comment on above: Order Comment: Speci men Type: BLOOD SPECIMENOrdering Facility: [facility] Address: [address] [place] [address] Result Comment: Not Detected Not Detected Performed By: #### M AT21 ####[facility] LABCLIA [id number] [place] [address] Citation Jn (Reference lab test) Comment Normal [facility] Comment on above: Order Comment: Speci men Type: BLOOD SPECIMENOrdering Facility: [facility] Address: [address] [place] [address] Result Comment: 1. P иван DILL et al. Audra Med. 2012;14(3):296-305. 2. Jamel HARRELL, et al. Prenat Diag. 2013;33(6):591-597. 3. Edvin C, et al. Clin Chem. 2015 Jun;61(4):608-616. 4. Jacey DILL et al. Audra Med. 2011;13(11):913-920. 5. ACOG/SMFM Practice Bulletin No. 226, Dec 2019. Performed By: #### M AT21 ####[facility] LABCLIA [id number] [place] [address] Gestational age Estimated from conception date Spencer Normal [facility] Comment on above: Order Comment: Speci men Type: BLOOD SPECIMENOrdering Facility: [facility] Address: [address] [place] [address] Performed By: #### M AT21 ####[facility] LABCLIA [id number] [place] [address] GESTATIONALAGE AGE > OR = 9W Yes Normal [facility] Comment on above: Order Comment: Speci men Type: BLOOD SPECIMENOrdering Facility: [facility] Address: [address] [place] [address] Performed By: #### M AT21 ####[facility] LABCLIA [id number] [place] [address] Laboratory comment Jn (Report) Comment Normal [facility] Comment on above: Order Comment: Speci men Type: BLOOD SPECIMENOrdering Facility: [facility] Address: [address] [place], [place] [id number] Result Comment: The MaterniT(R) 21 PLUS laboratory-developed test (LDT) analyzes circulating cell-free DNA from a maternal blood sample. This test is used for screening purposes and not diagnostic. Clinical correlation is recommended. Validation data on twin pregnancies is limited and the ability of this test to detect aneuploidy in higher multiple gestations has not yet been validated. Performed By: #### M AT21 ####[facility] LABCLIA [id number] [place] [id number] director prospect name Nom (Provider) Comment Normal [facility] Comment on above: Order Comment: Speci men Type: BLOOD SPECIMENOrdering Facility: [facility] Address: [address] [place] [address] Result Comment: This specimen showed an expected representation of chromosome 21, 18 and 13 material. Clinical correlation is suggested. Comment Jean Claude Guzmán MD, PhD, Director, [employer] Performed By: #### M AT21 ####[facility] LABCLIA [id number] [place] [address] LIMITATIONS OF THE TEST Comment Normal [facility] Comment on above: Order Comment: Speci men Type: BLOOD SPECIMENOrdering Facility: [facility] Address: [address] [place] [address] Result Comment: Steve shin the results of these tests are highly reliable, discordant results, including inaccurate sex prediction, may occur due to placental, maternal, or mosaicism or neoplasm; vanishing twin; prior maternal organ transplant; or other causes. These tests are screening tests and not diagnostic; they do not replace the accuracy and precision of diagnosis with CVS or amniocentesis. A patient with a positive test result should be referred for genetic counseling and offered invasive diagnosis for confirmation of test results.[5] The results of this testing, including the benefits and limitations, should be discussed with a qualified healthcare provider. management decisions, including termination of the , should not be based on the results of these tests alone. The healthcare provider is responsible for the use of this information in the management of their patient. Sex chromosomal aneuploidies are not reportable for known multiple gestations. A negative result does not ensure an unaffected nor does it exclude the possibility of other chromosomal abnormalities or defects which are not a part of these tests. An uninformative result may be reported, the causes of which may include, but are not limited to, insufficient sequencing coverage, noise or artifacts in the region, amplification or sequencing bias, or insufficient fraction. These tests are not intended to identify pregnancies at risk for neural tube defects or ventral wall defects. Testing for whole chromosome abnormalities (including sex chromosomes) and for subchromosomal abnormalities could lead to the potential discovery of both and maternal genomic abnormalities that could have major, minor, or no, clinical significance. Evaluating the significance of a positive or a non-reportable result may involve both invasive testing and additional studies on the mother. Such investigations may lead to a diagnosis of maternal chromosomal or subchromosomal abnormalities, which on occasion may be associated with benign or malignant maternal neoplasms. These tests may not accurately identify triploidy, balanced rearrangements, or the precise location of subchromosomal duplications or deletions; these may be detected by diagnosis with CVS or amniocentesis. The ability to report results may be impacted by maternal BMI, maternal weight, maternal systemic lupus erythematosus (SLE) and/or by certain pharmaceutical agents such as low molecular weight heparin (for example: Lovenox(R), Xaparin(R), Clexane(R) and Fragmin(R)). Performed By: #### M AT21 ####[facility] LABNuHabitatIA [id number] [place] [address] Monosomy X risk Dosage of chromosome-specific cfDNA Ql (Plasma cell-free+WBC DNA) [Interp] Not detected Normal [facility] Comment on above: Order Comment: Violeta alvarez Type: BLOOD SPECIMENOrdering Facility: [facility] Address: [address] [place] [address] Performed By: #### M AT21 ####[facility] LABCLIA [id number] [place] [address] NEGATIVE PREDICTIVE VALUE Note Normal [facility] Comment on above: Order Comment: Violeta alvarez Type: BLOOD SPECIMENOrdering Facility: [facility] Address: [address] [place] [address] Result Comment: The Negative Predictive Value (NPV) for trisomy 21, 18, and 13 is greater than 99%. The NPV for SCA and ESS cannot be calculated as SCA and ESS are only reported when an abnormality is detected. Performed By: #### M AT21 ####[facility] LABNuHabitatIA [id number] [place] [address] NOTE Comment Normal [facility] Comment on above: Order Comment: Speci men Type: BLOOD SPECIMENOrdering Facility: [facility] Address: [address] [place] [address] Result Comment: See Notes [place]. is a subsidiary of [employer], using the brand [facility]. This test was developed and its performance characteristics determined by [employer]. It has not been cleared or approved by the Food and Drug Administration. This laboratory is certified under the Clinical Laboratory Improvement Amendments (CLIA) as qualified to perform high complexity clinical laboratory testing and accredited by the [employer] [place] (CAP). If there is future clinical need for adding MaterniT GENOME testing, this specimen will be available until term. [facility] samples will not be retained beyond 60 days. [facility] patients will have to send a new sample for re-sequencing ([facility] Test Code: [id number]). Performed By: #### M AT21 ####[facility] LABNuHabitatIA [id number] [place] [address] PERFORMANCE CHARACTERISTICS Note Normal [facility] Comment on above: Order Comment: Speci men Type: BLOOD SPECIMENOrdering Facility: [facility] Address: [address] [place] [address] Result Comment: ! Sex ! Accuracy: 99.4% ! ! ! ! Region (associated syndrome) ! Est. Sens# ! Est. Spec ! ! ! ! Trisomy 21 (Down Syndrome) ! 99.1% ! 99.9% ! ! ! ! Trisomy 18 ([place] Syndrome) ! >99.9% ! 99.6% ! ! ! ! Trisomy 13 ([place] Syndrome) ! 91.7% ! 99.7% ! ! ! ! Sex Chromosome Aneuploidies## ! 96.2% ! 99.7% ! ! ! * As reported in ISCA database nstd37 [https://www.ncbi.nlm.nih.gov/dbvar/studies/nstd37/ ] # Estimated Sensitivity. Sensitivity estimated across the observed size distribution of each syndrome [per ISCA database nstd37] and across the range of fractions observed in routine clinical NIPT. Actual sensitivity can also be influenced by other factors such as the size of the event, total sequence counts, amplification bias, or sequence bias. ## Spencer gestation only. Performed By: #### M AT21 ####2AdPro Media SolutionsADVENTHEALTH FOR WOMEN [id number] [place] [address] POSITIVE PREDICTIVE VALUE N/A Normal [facility] Comment on above: Order Comment: Speci men Type: BLOOD SPECIMENOrdering Facility: [facility] Address: [address] [place] [address] Performed By: #### M AT21 ####[employer] LABCLIA [id number] [place] [address] Reference Lab Test Method Comment Normal [facility] Comment on above: Order Comment: Speci men Type: BLOOD SPECIMENOrdering Facility: [facility] Address: [address] [place] [address] Result Comment: See Notes Circulating cell-free DNA was purified from the plasma component of maternal blood. The extracted DNA was then converted into a genomic DNA library for aneuploidy analysis of chromosomes 21, 18, and 13 via next generation sequencing.[1] Optional findings based on the test order include sex chromosome aneuploidy (SCA)[2], and enhanced sequencing series (ESS)[3], which will only be reported on as an additional finding when an abnormality is detected. SCA testing includes information on X and Y representation, while ESS testing includes deletions in selected regions (22q, 15q, 11q, 8q, 5p, 4p, 1p) and trisomy of chromosomes 16 and 22. Performed By: #### M AT21 ####[employer] LABCLIA [id number] [place] [address] Sex Dosage of chromosome-specific cfDNA Nom (cfDNA) Comment Normal [facility] Comment on above: Order Comment: Speci men Type: BLOOD SPECIMENOrdering Facility: [facility] Address: [address] [place] [address] Result Comment: Cons istent with Male Performed By: #### M AT21 ####[employer] LABCLIA [id number] [place] [address] Test performance information Jn (Unsp spec) Comment Normal [facility] Comment on above: Order Comment: Speci men Type: BLOOD SPECIMENOrdering Facility: [facility] Address: [address] [place] [address] Result Comment: The performance characteristics of the MaterniT(R) 21 PLUS laboratory-developed test (LDT) have been determined in a clinical validation study with women at increased risk for chromosomal aneuploidy.[1-4] Performed By: #### M AT21 ####[employer] LABCLIA [id number] [place] [address] Trisomy 13 risk Dosage of chromosome-specific cfDNA Ql (cfDNA) [Interp] Negative Normal [facility] Comment on above: Order Comment: Violeta alvarez Type: BLOOD SPECIMENOrdering Facility: [facility] Address: [address] [place] [address] Performed By: #### M AT21 ####[employer]MyoKard[facility]RP LABCLIA [id number] [place] [address] Trisomy 18 risk Dosage of chromosome-specific cfDNA Ql (Plasma cell-free+WBC DNA) [Interp] Negative Normal [facility] Comment on above: Order Comment: Violeta alvarez Type: BLOOD SPECIMENOrdering Facility: [facility] Address: [address] [place] [address] Performed By: #### M AT21 ####[employer] Rainmaker GroupRP LABCLIA [id number] [place] [address] STREP A MOLECULAR (POC)on Procedural Control Valid [facility] Strep A (POCT) Negative Negative [facility] CBC W Auto Differential pane l (Bld)on 02-24-2024 Basophils (Bld) [#/Vol] 0.07 10*3/uL Normal <0.11 [facility] Comment on above: Order Comment: Violeta alvarez Type: BLOOD SPECIMENOrdering Facility: [facility] Address: [address] [place] [address] Performed By: #### 5 7021-8 ####[facility] TODD DE JESUS [id number] [place] [address] [place] Basophils/100 WBC (Bld) 0.7 % Normal [facility] Comment on above: Order Comment: Violeta alvarez Type: BLOOD SPECIMENOrdering Facility: [facility] Address: [address] [place] [address] Performed By: #### 5 7021-8 ####[facility] HOSPITALNCLIA [id number] [place] [address] [place] Differential cell count method Nom (Bld) Auto Normal [facility] Comment on above: Order Comment: Speci men Type: BLOOD SPECIMENOrdering Facility: [facility] Address: [address] [place] [address] Performed By: #### 5 7021-8 ####[facility] HOSPITALNCLIA [id number] [place] [address] [place] Eosinophils (Bld) [#/Vol] 0.24 10*3/uL Normal <0.46 [facility] Comment on above: Order Comment: Speci men Type: BLOOD SPECIMENOrdering Facility: [facility] Address: [address] [place] [address] Performed By: #### 5 7021-8 ####[facility] HOSPITALNCLIA [id number] [place] [address] [place] Eosinophils/100 WBC (Bld) 2.4 % Normal [facility] Comment on above: Order Comment: Speci men Type: BLOOD SPECIMENOrdering Facility: [facility] Address: [address] [place] [address] Performed By: #### 5 7021-8 ####[facility] HOSPITALNCLIA [id number] [place] [address] [place] Erythrocyte distribution width (RBC) [Ratio] 14.0 % Normal 11.5-15.0 [facility] Comment on above: Order Comment: Speci men Type: BLOOD SPECIMENOrdering Facility: [facility] Address: [address] [place] [address] Performed By: #### 5 7021-8 ####[facility] HOSPITALNCLI [id number] [place] [address] [place] Hematocrit (Bld) [Volume fraction] 41.8 % Normal 36.0-46.0 [facility] Comment on above: Order Comment: Speci men Type: BLOOD SPECIMENOrdering Facility: [facility] Address: [address] [place] [address] Performed By: #### 5 7021-8 ####[facility] LUCI[facility] HOSPITALSONIA [id number] [place] [address] [place] Hemoglobin (Bld) [Mass/Vol] 13.9 g/dL Normal 11.5-15.5 [facility] Comment on above: Order Comment: Speci men Type: BLOOD SPECIMENOrdering Facility: [facility] Address: [address] [place] [address] Performed By: #### 5 7021-8 ####[facility] LUCIE HOSPITALANNAHilario [id number] [place] [address] [place] Immature granulocytes (Bld) [#/Vol] 0.03 10*3/uL Normal <0.10 [facility] Comment on above: Order Comment: Speci men Type: BLOOD SPECIMENOrdering Facility: [facility] Address: [address] [place] [address] Performed By: #### 5 7021-8 ####[facility] LUCIE HOSPITALSUEA [id number] [place] [address] [place] Immature granulocytes/100 WBC (Bld) 0.3 % Normal [facility] Comment on above: Order Comment: Speci men Type: BLOOD SPECIMENOrdering Facility: [facility] Address: [address] [place] [address] Performed By: #### 5 7021-8 ####[facility]ITALL[facility] [id number] [place] [address] [place] Lymphocytes (Bld) [#/Vol] 2.44 10*3/uL Normal 1.00-4.00 [facility] Comment on above: Order Comment: Speci men Type: BLOOD SPECIMENOrdering Facility: [facility] Address: [address] [place] [address] Performed By: #### 5 7021-8 ####[facility] HOSPITALNCOGDEN [facility] [id number] [place] [address] [place] Lymphocytes/100 WBC (Bld) 24.0 % Normal [facility] Comment on above: Order Comment: Speci men Type: BLOOD SPECIMENOrdering Facility: [facility] Address: [address] [place] [address] Performed By: #### 5 7021-8 ####[facility] HOSPITALNCOGDEN [facility] [id number] [place] [address] [place] MCH (RBC) [Entitic mass] 28.2 pg Normal 26.0-34.0 [facility] Comment on above: Order Comment: Speci men Type: BLOOD SPECIMENOrdering Facility: [facility] Address: [address] [place] [address] Performed By: #### 5 7021-8 ####[facility] [id number] [place] [address] [place] MCHC (RBC) [Mass/Vol] 33.3 g/dL Normal 30.5-36.0 [facility] Comment on above: Order Comment: Speci men Type: BLOOD SPECIMENOrdering Facility: [facility] Address: [address] [place] [address] Performed By: #### 5 7021-8 ####[facility] LUCIE HOSPITALNCLI [id number] [place] [address] [place] MCV (RBC) [Entitic vol] 84.8 fL Normal 80.0-100.0 [facility] Comment on above: Order Comment: Speci men Type: BLOOD SPECIMENOrdering Facility: [facility] Address: [address] [place] [address] Performed By: #### 5 7021-8 ####[facility] MILLTOWNCLIA [id number] [place] [address] [place] Monocytes (Bld) [#/Vol] 0.59 10*3/uL Normal <0.87 [facility] Comment on above: Order Comment: Speci men Type: BLOOD SPECIMENOrdering Facility: [facility] Address: [address] [place] [address] Performed By: #### 5 7021-8 ####[facility] MILLTOWNCLIA [id number] [place] [address] [place] Monocytes/100 WBC (Bld) 5.8 % Normal [facility] Comment on above: Order Comment: Speci men Type: BLOOD SPECIMENOrdering Facility: [facility] Address: [address] [place] [address] Performed By: #### 5 7021-8 ####[facility] HOSPITALWNCLIA [id number] [place] [address] [place] Neutrophils (Bld) [#/Vol] 6.81 10*3/uL Normal 1.45-7.50 [facility] Comment on above: Order Comment: Speci men Type: BLOOD SPECIMENOrdering Facility: [facility] Address: [address] [place] [address] Performed By: #### 5 7021-8 ####[facility] MILLTOWNCLIA [id number] [place] [address] [place] Neutrophils/100 WBC (Bld) 66.8 % Normal [facility] Comment on above: Order Comment: Speci men Type: BLOOD SPECIMENOrdering Facility: [facility] Address: [address] [place] [address] Performed By: #### 5 7021-8 ####[facility] MILLTOWNCLIA [id number] [place] [address] [place] Nucleated RBC (Bld) [#/Vol] 10*3/uL Normal <0.01 [facility] Comment on above: Order Comment: Speci men Type: BLOOD SPECIMENOrdering Facility: [facility] Address: [address] [place] [address] Performed By: #### 5 7021-8 ####[facility] MICAHBOLIVIANANAALMITAA [id number] [place] [address] [place] Nucleated RBC/100 WBC (Bld) [Ratio] 0.0 /100 WBC Normal [facility] Comment on above: Order Comment: Speci men Type: BLOOD SPECIMENOrdering Facility: [facility] Address: [address] [place] [address] Performed By: #### 5 7021-8 ####[facility] LUCIE HOSPITALNCHilario [id number] [place] [address] [place] Platelet mean volume (Bld) [Entitic vol] 8.5 fL Low 9.0-12.7 [facility] Comment on above: Order Comment: Speci men Type: BLOOD SPECIMENOrdering Facility: [facility] Address: [address] [place] [address] Performed By: #### 5 7021-8 ####[facility] LUCI[facility] HOSPITALNCALMITAA [id number] [place] [address] [place] Platelets (Bld) [#/Vol] 304 10*3/uL Normal 150-400 [facility] Comment on above: Order Comment: Speci men Type: BLOOD SPECIMENOrdering Facility: [facility] Address: [address] [place] [address] Performed By: #### 5 7021-8 ####[facility] HOSPITALNCLIA [id number] [place] [address] [place] RBC (Bld) [#/Vol] 4.93 10*6/uL Normal 3.90-5.20 [facility] Comment on above: Order Comment: Speci men Type: BLOOD SPECIMENOrdering Facility: [facility] Address: [address] [place] [address] Performed By: #### 5 7021-8 ####[facility] HOSPITALNCOGD[facility] [id number] [place] [address] [place] WBC (Bld) [#/Vol] 10.18 10*3/uL Normal 3.70-11.00 [facility] Comment on above: Order Comment: Speci men Type: BLOOD SPECIMENOrdering Facility: [facility] Address: [address] [place] [address] Performed By: #### 5 7021-8 ####[facility] HOSPITALNCOGD[facility] [id number] [place] [address] [place] HBV surface Ag Ser Qlon 02-05 HBV surface Ag Ql (S) Negative Normal Negative [facility] Comment on above: Order Comment: Speci men Type: BLOOD SPECIMENOrdering Facility: [facility] Address: [address] [place] [address] Performed By: #### 5 195-3, 36033-3, 54617-0 ####[facility] LABCLIA [id number] [place] [address] [place] HCV Ab Ser Qlon 02-24-2024 HCV Ab Ql (S) Negative Normal Negative [facility] Comment on above: Order Comment: Speci men Type: BLOOD SPECIMENOrdering Facility: [facility] Address: [address] [place] [address] Result Comment: The result suggests no evidence of active infection with Hepatitis C virus. Should recent infection be suspected, repeat testing may be considered 4-6 weeks after this draw. Performed By: #### 1 6128-1 ####[facility] LABCLIA [id number] [place] [address] [place] HIV 1+2 Ab IA Qlon 4 HIV 1 and 2 Ab IA.rapid Nom (S/P/Bld) Normal [facility] Comment on above: Order Comment: Speci men Type: BLOOD SPECIMENOrdering Facility: [facility] Address: [address] [place] [address] Result Comment: Test not indicated. Performed By: #### 5 195-3, 88277-6, 72766-3 ####[facility] LABCLIA [id number] [address] [place] HIV 1+2 Ab+HIV1 p24 Ag IA Ql Non-Reactive Normal Nonreactive [facility] Comment on above: Order Comment: Speci men Type: BLOOD SPECIMENOrdering Facility: [facility] Address: [address] [place] [address] Performed By: #### 5 195-3, 02551-5, 45871-4 ####[facility] LABIA [id number] [address] [place] HIV immunoassay testing algorithm interpretation (S/P/Bld) [Interp] Normal [facility] Comment on above: Order Comment: Speci men Type: BLOOD SPECIMENOrdering Facility: [facility] Address: [address] [place] [address] Result Comment: No e vidence of HIV-1 or HIV-2 infection. Should recent infection be suspected, repeat testing may be considered 2-3 weeks after this draw. [place] Rev. Code 3701.243(E): This information has been disclosed to you from confidential records protected from disclosure by state law. ???You shall make no further disclosure of this information without the specific, written, and informed release of the individual to whom it pertains or as otherwise permitted by state law. A general authorization for the release of medical or other information is not sufficient for the purpose of the release of HIV test results or diagnoses. Performed By: #### 5 195-3, 60308-4, 04542-3 ####[facility] LABCLIA [id number] [address] [place] HbA1c (Bld)on 02-24-2024 Average glucose Estimated from glycated hemoglobin (Bld) [Mass/Vol] 94 mg/dL Normal [facility] Comment on above: Order Comment: Speci antonio Type: SWAB [facility] Address: [address] [place] [address] Result Comment: eAG: (Estimated average glucose) is a calculated value from HgbA1c and is circulation sales representative of the average blood glucose level in the last 2-3 month period. Performed By: #### C VTV, BVAMP #### [facility] LAB CLIA [id number] [address] [place] [address] [place] HbA1c (Bld) [Mass fraction] 4.9 % Normal 4.3-5.6 [facility] Comment on above: Order Comment: Sandrai antonio Type: SWAB [facility] Address: [address] [place] [address] Result Comment: Amer [place] Diabetes Association guidelines indicate that patients with HgbA1c in the range 5.7-6.4% are at increased risk for development of diabetes, and intervention by lifestyle modification may be beneficial. HgbA1c greater or equal to 6.5% is considered diagnostic of diabetes. Performed By: #### C VTV, BVAMP #### [facility] LAB CLIA [id number] [address] [place] [address] [place] RUBELLA IGG ANTIBODYon 02-23 RUBELLA IGG AB, QUAL Positive Normal Positive [facility] Comment on above: Order Comment: Violeta alvarez Type: BLOOD SPECIMENOrdering Facility: [facility] Address: [address] [place] [address] Result Comment: The result suggests recent or past exposure to Rubella virus or history of Rubella vaccination. Positive result may also be seen due to presence of passively-transferred antibodies. Please correlate with patient's history. Performed By: #### R UBIGG ####[facility] LABCLIA [id number] [id number], [place] [address] [place] Reagin and Treponema pallidu m IgG and IgM [Interp]on 02-24-2024 T. pallidum IgG+IgM IA Ql (S) Non-Reactive Normal Nonreactive [facility] Comment on above: Order Comment: Speci men Type: BLOOD SPECIMENOrdering Facility: [facility] Address: [address] [place] [address] Performed By: #### 5 195-3, 81078-7, 12022-5 ####[facility] LABCLIA [id number] [place] [address] [place] Reagin+T pallidum IgG+IgM Se rPl-Impon 02-24-2024 Reagin and Treponema pallidum IgG and IgM [Interp] Cannot exclude recent Treponemal infection if specimen collected within 7-10 days after appearance of suspect lesions or 2-3 weeks after an exposure. Clinical correlation is required. Normal [facility] Comment on above: Order Comment: Speci men Type: BLOOD SPECIMENOrdering Facility: [facility] Address: [address] [place] [address] Performed By: #### 5 195-3, 04201-4, 55373-0 ####[facility] LABCLIA [id number] [place] [address] [place] TYPE + SCREEN PRENATALon ABO O Normal [facility] Comment on above: Order Comment: Speci men Type: SWAB [facility] Address: [address] [place] [address] Performed By: #### C VTV, BVAMP #### [facility] LAB CLIA [id number] [address] [place] [address] [place] Rh Nom (Bld) Positive Normal [facility] Comment on above: Order Comment: Speci men Type: SWAB [facility] Address: [address] [place] [address] Performed By: #### C VTV, BVAMP #### [facility] LAB CLIA [id number] [address] [place] [address] [place] TYPE AND SCREEN EXPIRATION 02/27/2024 23:59 Normal [facility] Comment on above: Order Comment: Speci men Type: SWAB [facility] Address: [address] [place] [address] Performed By: #### C VTV, BVAMP #### [facility] LAB CLIA [id number] [address] [place] [address] [place] Urgent Care Visit Reporton 1 04-26-2023 Urgent Care Visit Report [facility] [address], [address] [place] [id number] OFFICE VISIT Date of Service: 02/24/24 MR#: [id number] Acct: [id number] Name: AMIRAH WOODARD Rep #: [id number] 40 : 2005 Provider: CATRACHO Jacobo Age/Sex: 18/F Location: [facility] Status: Signed Intake Vital Signs 11/14/23 09:57 Height 5 ft 3 in Intake Visit Reasons: [facility] PHYS[facility]/ [facility] Chief Complaint: Preemployment physical Accompanied by: Self Allergies No Known Allergies Allergy (Verified 02/24/24 12:06) Medications ???Medication ???Instructions ???Recorded ???Confirmed ???Type Lactobacillus 25 billion cap PO 10/04/23 11/15/23 History cell-Bifido 25 billion bcph-HWY-jpfiw capsule albuterol sulfate 90 mcg/actuation inhalation 10/04/23 11/15/23 History aerosol inhaler vits 75-iron 28 mg-folic pkg PO 02/24/24 02/24/24 History acid 800 mcg-omega-3 oral combo pack (One A Day Women's DHA) PFSH Medical History Left ankle pain Surgical History Hx of wisdom tooth extraction Hx of tonsillectomy Social History Smoking Status: Never smoker HPI HPI Chief Complaint: Preemployment physical Details: AMIRAH WOODARD, is a 18 F who presents to the office today for preemployment physical. Please see corresponding scanned documents with today's date. Office Procedures Physical Exam Coding PE Coding Pre-employment PE: Yes Coding Level of Care Code No Charge Diagnoses Pre-employment examination Z02.1 Assessment and Plan Assessment and Plan (1) Pre-employment examination: Status: Acute 02/24/24 1220 Date [place] Gomez Signature: Date (if applicable) CC: [facility] 02-23-2024 [facility] Telephone (SPMOBA) AMIRAH WOODARD ([id number]) 3 F Date Time Provider Department 02/23/24 PAULINE AU During your visit today, we recorded the following information about you: Pauline Au RN 02/23/2024 8:34 AM Signed 1st risk assessment form submitted 02/23/24. Pauline Au RN Allergies As of Date: 02/23/2024 Noted Allergy Reaction SEASONAL ALLERGIES 12/29/2017 14 - Other: See Comments Comments: Puffy itchy eyes and scratchy throat. Date Reviewed: 02/21/2024 Reviewed by: Nilda Stiles APRN.[facility] - Fully Assessed Reason for Visit: PRAF [4193] Prescriptions as of 02/23/2024 - aspirin, enteric coated (ECOTRIN LOW STRENGTH) 81 mg EC tablet Take 1 tablet by mouth once daily. - vit no.124/iron/folic ( VITAMIN ORAL) Take 1 tablet by mouth once daily. - albuterol HFA (PROVENTIL HFA, VENTOLIN HFA) 90 mcg/actuation inhaler Inhale 2 Puffs as instructed every 4 hours as needed for wheezing/shortness of breath. Problem List As Of Date 02/23/2024 Noted Resolved Exercise-induced asthma with acute exacerbation* 7 06/12/2021 Gastroesophageal reflux disease [K21.9] 06/12/2021 Allergic rhinitis [J30.9] 07/13/2021 BMI 32.0-32.9,adult [Z68.32] 02/21/2024 Supervision of normal first teen in f*02/21/2024 Encounter Status:Closed by PAULINE AU on 02/23/24 Normal [facility] BACTERIAL VAGINOSIS NAATon 1 04-23-2023 Lactobacillus crispatus+gasseri+imelda enii + Gardnerella vaginalis + Atopobium vaginae rRNA MEG+probe Ql (Vag fld) Not detected Normal Not detected [facility] Comment on above: Order Comment: Speci men Type: SWABOrdering Facility: [facility] Address: [address] [place] [address] Performed By: #### B VAMP, [id number] ####[facility] LABCLIA [id number] [place] [address] [place] Bacteria Ur Culton 4 Bacteria identified Cx Nom (U) ORGANISM ID: 1 10,000 -<50,000 CFU/ml Mixed microbiota No further workup. Mixed microbiota can be due to???urine???contamina tion with skin bacteria at time of collection or presence of a long-term urinary catheter. If a new culture is needed, please consider re-education of the patient on proper midstream collection technique or straight catheterization for???urine???collecti on. Normal [facility] Comment on above: Performed By: #### 6 30-4 ####[facility] LABCLIA [id number] [place] [address] [place] C. trachomatis+N. gonorrhoea e DNA MEG+probe Ql (Unsp spec)on 02-21-2024 C. trachomatis rRNA MEG+probe Ql (Unsp spec) Not detected Normal Not detected [facility] Comment on above: Order Comment: Speci men Type: SWABOrdering Facility: [facility] Address: [address] [place] [address] Performed By: #### B VAMP, [id number] ####[facility] LABCLIA [id number] [place] [address] [place] N. gonorrhoeae rRNA MEG+probe Ql (Unsp spec) Not detected Normal Not detected [facility] Comment on above: Order Comment: Speci men Type: SWABOrdering Facility: [facility] Address: [address] [place] [address] Performed By: #### B VAMP, [id number] ####[facility] LABCLIA [id number] [place] [address] [place] FRANCO/TRICHOMONAS NAATon 1 04-23-2023 C. glabrata RNA MEG+probe Ql (Vag fld) Not detected Normal Not detected [facility] Comment on above: Order Comment: Speci men Type: SWAB [facility] Address: [address] [place] [address] Performed By: #### C VTV, BVAMP #### [facility] CLIA [id number] [address] [place] [address] [place] Franco sp DNA MEG+probe Ql (Vag fld) Not detected Normal Not detected [facility] Comment on above: Order Comment: Speci men Type: SWAB [facility] Address: [address] [place] [address] Result Comment: The Franco species group target includes C. albicans, C. tropicalis, C. parapsilosis, and C. dubliniensis. Performed By: #### C VTV, BVAMP #### [facility] CLIA [id number] [address] [place] [address] [place] T. vaginalis DNA MEG+probe Ql (Unsp spec) Not detected Normal Not detected [facility] Comment on above: Order Comment: Speci men Type: SWAB [facility] Address: [address] [place] [address] Performed By: #### C VTV, BVAMP #### [facility] CLIA [id number] [address] [place] [address] [place] CNCOon 02-21-2024 CNCO Letter Text Normal [facility] POC CRYSTAL GROWING TECHNICIAN ULTRASOUNDon 02-21-20 Indication Confirmation of intrauterine . Confirmation of cardiac activity Impression cardiac activity is visualized, CRL is appropriate for clinical dates, corresponding to ANA 10/09/24 Recommendations Follow up for NT scan if desired Method Transvaginal ultrasound examination. View: Adequate visualization Spencer . Number of embryos: 1 Dating LMP on: 01/03/2024 GA by LMP 7 w + 0 d ANA by LMP: 10/09/2024 Ultrasound examination on: 02/21/2024 GA by U/S based upon: CRL GA by U/S 7 w + 1 d ANA by U/S: 10/08/2024 Assigned: based on the LMP, selected on 02/21/2024 Assigned GA 7 w + 0 d Assigned ANA: 10/09/2024 Biometry Standard FHR 151 bpm CRL 10.0 mm 7w 1d 95% Hadlock Assessment Gestational sac: visualized Location: intrauterine Yolk sac: visualized Embryo: visualized CRL 10.0 mm 7w 1d 95% Hadlock Cardiac activity: present FHR 151 bpm General Evaluation Cardiac activity present. FHR 151 bpm Performed By: Nilda Stiles CNP Read By: Nilda Stiles CNP MATERNAL MEDICINE [facility] Radiology Study observation (narrative) [facility] CNCOon 02-01-2024 CNCO Letter Text Normal [facility] CNOVon 01-30-2024 CNOV Office Visit (OBGYWM ) AMIRAH WOODARD ([id number]) 3 F Date Time Provider Department 01/30/24 2:15 PM NILDA STILES OBGYWM During your visit today, we recorded the following information about you: Blood pressure Weight Last Period 116/72 85 kg 01/03/24 Nilda Stiles APRN.BANDAGE WINDING MACHINE OPERATOR 01/30/2024 2:33 PM Signed Amirah Woodard is a 18 year old female who presents for problem visit testing, reported +hpt 01/27/2024, 01/03/2024. HPI: positive test- some cramping no bleeding LMP 01/03/24 OB History T0 L0 SAB0 IAB0 Ectopic0 Multiple0 Live Births0 Schedule Announcer History LMP: 12/09/2023 (Exact Date), Having periods Age at Menarche: Age at First : Age at Menopause: Schedule Announcer History Comments: Sexual Activity: Yes; Male Contraception: I.U.D. PAST MEDICAL HISTORY Diagnosis Date Exercise-induced asthma with acute exacerbation 08/09/2016 Fracture, fibula 10/01/2023 Left PAST SURGICAL HISTORY Procedure Laterality Date EXTRACTION ERUPTED TOOTH/EXR 07/2023 INSERT INTRAUTERINE DEVICE 12/21/2022 removed IUD REMOVAL 05/2023 TONSILLECTOMY HX 03/24/2021 FAMILY HISTORY Problem Relation Age of Onset None Mother None Father No Known Problems Sister No Known Problems Sister No Known Problems Sister No Known Problems Sister No Known Problems Sister Thyroid Sister None Maternal Grandmother None Maternal Grandfather None Paternal Grandmother None Paternal Grandfather Social History Tobacco Use Smoking status: Never Smokeless tobacco: Never Tobacco comments: Second hand smoke exposure Vaping Use Vaping status: Never Used Substance Use Topics Alcohol use: No Drug use: No Current Outpatient Medications Medication Sig ketoconazole (NIZORAL) 2 % shampoo Apply small amount every 2 - 3 days for up to 8 weeks, then as needed. Lather, massage into affected areas. Allow shampoo remain on the affected areas for 5 minutes and then rinse off the shampoo. albuterol HFA (PROVENTIL HFA, VENTOLIN HFA) 90 mcg/actuation inhaler Inhale 2 Puffs as instructed every 4 hours as needed for wheezing/shortness of breath. fluticasone (FLONASE) 50 mcg/actuation nasal spray Use 1 [place] in each nostril once daily. loratadine (CLARITIN) 10 mg tablet Take 10 mg by mouth once daily. Olopatadine (PATADAY ONCE DAILY RELIEF) 0.2 % drop Use 1 Drop in both eyes once daily. No current facility-administered medications for this visit. Allergies As of Date: 01/30/2024 Allergen Noted Reaction SEASONAL ALLERGIES 12/29/2017 Other: See Comments Fully Assessed 12/12/2023 REVIEW OF SYSTEMS Expanded ROS: N/A Allergies and current medication updated:Yes SENSITIVE EXAM: Sensitive exam not performed. EXAM: LMP 12/09/2023 GENERAL: pleasant, female in no apparent distress HEENT: Normocephalic, atraumatic, mucus membranes moist, and no lesions CHEST: Normal inspiratory effort NEURO: alert and oriented x3,exam grossly non-focal EXTREMITIES: normal ASSESSMENT/PLAN: 1. Encounter for test, result positive - ICD9: V72.42, ICD10: Z32.01 Schedule NOB appt Review miscarriage precautions Nilda Stiles APRN.BANDAGE WINDING MACHINE OPERATOR Medical Decision Making: Problems: Low: Acute, uncomplicated illness or injury Data: Unique test(s) ordered: 1 Risk: Low: Low risk from testing/treatment Medical Decision Making Level: 3 - Low Allergies As of Date: 01/30/2024 Noted Allergy Reaction SEASONAL ALLERGIES 12/29/2017 14 - Other: See Comments Comments: Puffy itchy eyes and scratchy throat. Date Reviewed: 01/30/2024 Reviewed by: Kelly Fields LPN - Fully Assessed Primary Visit Diagnosis:Encounter for test, result positive [Z32.01] Order(s):UA DIP,URINE HCG (POC) [[id number]] Order #: [id number]. #:[id number] Prescriptions as of 01/30/2024 - vit no.124/iron/folic ( VITAMIN ORAL) Take 1 tablet by mouth once daily. - ketoconazole (NIZORAL) 2 % shampoo Apply small amount every 2 - 3 days for up to 8 weeks, then as needed. Lather, massage into affected areas. Allow shampoo remain on the affected areas for 5 minutes and then rinse off the shampoo. - albuterol HFA (PROVENTIL HFA, VENTOLIN HFA) 90 mcg/actuation inhaler Inhale 2 Puffs as instructed every 4 hours as needed for wheezing/shortness of breath. - fluticasone (FLONASE) 50 mcg/actuation nasal spray Use 1 [place] in each nostril once daily. - loratadine (CLARITIN) 10 mg tablet Take 10 mg by mouth once daily. - Olopatadine (PATADAY ONCE DAILY RELIEF) 0.2 % drop Use 1 Drop in both eyes once daily. Problem List As Of Date 01/30/2024 Noted Resolved Exercise-induced asthma with acute exacerbation* 7 06/12/2021 Gastroesophageal reflux disease [K21.9] 06/12/2021 Allergic rhinitis [J30.9] 07/13/2021 Disposition: Return for schedule for 02/20 @5 NOB. Follow (more content not included)... Normal [facility] UA DIP,URINE HCG (POC)on Beta HCG ( test) Ql (U) Positive Abnormal Negative [facility] Comment on above: Location:[facility], [address], [place], [address] Interpretation and review of laboratory results Abnormal [facility] Diagnostic Assistant (POCT) Internal QC OK [facility] Location:[facility], [address], [place], [place], [address] [place] [address] POINT OF CARE [facility] CNPSherine 12-15-2023 JOSELYNN Telephone (OBGYWM) AMIRAH WOODARD ([id number]) [birth year] F Date Time Provider Department 12/15/23 NILDA STILES OBGYWM During your visit today, we recorded the following information about you: Nilda Stiles APRN.CNP 12/15/2023 8:17 AM Signed Mycoplasma positive. Moxifloxacin x 7 days, then Doxy to follow x 7 days. Partner should be treated. Nilda Stiles APRN.Vivian Matthew RN 12/15/2023 9:24 AM Signed Patient notified. Vivian Adams RN The following approved medication requests have been transmitted electronically. Requested Prescriptions Signed Prescriptions Disp Refills moxifloxacin (AVELOX) 400 mg tablet 7 tablet 0 Sig: Take 1 tablet by mouth once daily for 7 days. Authorizing Provider: NILDA STILES doxycycline hyclate (VIBRAMYCIN) 100 mg capsule 14 capsule 0 Sig: Take 1 capsule (100 mg) by mouth two times a day for 7 days. Authorizing Provider: NILDA STILES Pharmacy Information Pharmacy Address Telephone [address] [address] Allergies As of Date: 12/15/2023 Noted Allergy Reaction SEASONAL ALLERGIES 12/29/2017 14 - Other: See Comments Comments: Puffy itchy eyes and scratchy throat. Date Reviewed: 12/12/2023 Reviewed by: Kelly Fields LPN - Fully Assessed Reason for Visit: Results [95] Order(s):moxifloxacin (AVELOX) 400 mg tabletTake 1 tablet by mouth once daily for 7 days.Disp: 7 tabletRfl: 0 doxycycline hyclate (VIBRAMYCIN) 100 mg capsuleTake 1 capsule (100 mg) by mouth two times a day for 7 days.Disp: 14 capsuleRfl: 0 Prescriptions as of 12/15/2023 - moxifloxacin (AVELOX) 400 mg tablet Take 1 tablet by mouth once daily for 7 days. - doxycycline hyclate (VIBRAMYCIN) 100 mg capsule Take 1 capsule (100 mg) by mouth two times a day for 7 days. - ketoconazole (NIZORAL) 2 % shampoo Apply small amount every 2 - 3 days for up to 8 weeks, then as needed. Lather, massage into affected areas. Allow shampoo remain on the affected areas for 5 minutes and then rinse off the shampoo. - albuterol HFA (PROVENTIL HFA, VENTOLIN HFA) 90 mcg/actuation inhaler Inhale 2 Puffs as instructed every 4 hours as needed for wheezing/shortness of breath. - fluticasone (FLONASE) 50 mcg/actuation nasal spray Use 1 [place] in each nostril once daily. - loratadine (CLARITIN) 10 mg tablet Take 10 mg by mouth once daily. - Olopatadine (PATADAY ONCE DAILY RELIEF) 0.2 % drop Use 1 Drop in both eyes once daily. Problem List As Of Date 12/15/2023 Noted Resolved Exercise-induced asthma with acute exacerbation* 7 06/12/2021 Gastroesophageal reflux disease [K21.9] 06/12/2021 Allergic rhinitis [J30.9] 07/13/2021 Prescriptions ordered this encounter Disp Refills Start End MOXIFLOXACIN 400 MG TABLET 7 ta* 0 12/15/2023 12/22/2023 Route: ORAL Sig: Take 1 tablet by mouth once daily for 7 days. DOXYCYCLINE HYCLATE 100 MG CAPSULE 14 c* 0 12/15/2023 12/22/2023 Route: ORAL Sig: Take 1 capsule (100 mg) by mouth two times a day for 7 days. Encounter Status:Closed by VIVIAN ADAMS on 12/15/23 Normal [facility] BACTERIAL VAGINOSIS NAATon 1 Lactobacillus crispatus+gasseri+imelda enii + Gardnerella vaginalis + Atopobium vaginae rRNA MEG+probe Ql (Vag fld) Negative Normal Negative for bacterial vaginosis [facility] Comment on above: Order Comment: Speci men Type: SWAB [facility] Address: [address] [place] [address] Performed By: #### C VTV, BVAMP #### [facility] CLIA [id number] [address] [place] [address] [place] [address] [place] FRANCO/TRICHOMONAS NAATon 1 C. glabrata RNA MEG+probe Ql (Vag fld) Negative Normal Negative for Franco glabrata [facility] Comment on above: Order Comment: Speci men Type: SWAB [facility] Address: [address] [place] [address] Performed By: #### C VTV, BVAMP #### [facility] CLIA [id number] [address] [place] [address] [place] Franco sp DNA MEG+probe Ql (Vag fld) Negative Normal Negative for Franco species [facility] Comment on above: Order Comment: Speci men Type: SWAB [facility] Address: [address] [place] [address] Performed By: #### C VTV, BVAMP #### [facility] CLIA [id number] [address] [place] [address] [place] T. vaginalis DNA MEG+probe Ql (Unsp spec) Negative Normal Negative for Trichomonas vaginalis by amplification [facility] Comment on above: Order Comment: Speci men Type: SWAB [facility] Address: [address] [place] [address] Performed By: #### C VTV, BVAMP #### [facility] CLIA [id number] [address] [place] [address] [place] CNOVon 12-12-2023 CNOV Office Visit (OBGYWM ) AMIRAH WOODARD ([id number]) 3 F Date Time Provider Department 12/12/23 3:45 PM NILDA STILES OBGYWM During your visit today, we recorded the following information about you: Blood pressure Weight Last Period 122/66 84.8 kg 12/09/23 Nilda Stiles APRN.BANDAGE WINDING MACHINE OPERATOR 12/12/2023 4:43 PM Signed 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 Amirah Woodard is a 18 year old female who presents for problem visit vaginal irritation, discharge for 1 week(s). HPI: pt presents with vaginal irritation and discharge x 1 week. She has had chronic BV/yeast infections. No concern for STDs, same partner. She was also concerned about a thyroid issue due to her 16-year-old sister was recently diagnosed with 1. OB History T0 L0 SAB0 IAB0 Ectopic0 Multiple0 Live Births0 Schedule Announcer History LMP: 10/08/2023 (Exact Date), Having periods Age at Menarche: Age at First : Age at Menopause: Schedule Announcer History Comments: Sexual Activity: Yes; Male Contraception: I.U.D. PAST MEDICAL HISTORY Diagnosis Date Exercise-induced asthma with acute exacerbation 08/09/2016 Fracture, fibula 10/01/2023 Left PAST SURGICAL HISTORY Procedure Laterality Date EXTRACTION ERUPTED TOOTH/EXR 07/2023 INSERT INTRAUTERINE DEVICE 12/21/2022 removed IUD REMOVAL 05/2023 TONSILLECTOMY HX 03/24/2021 FAMILY HISTORY Problem Relation Age of Onset None Mother None Father No Known Problems Sister No Known Problems Sister No Known Problems Sister No Known Problems Sister No Known Problems Sister None Maternal Grandmother None Maternal Grandfather None Paternal Grandmother None Paternal Grandfather Social History Tobacco Use Smoking status: Never Smokeless tobacco: Never Tobacco comments: Second hand smoke exposure Vaping Use Vaping status: Never Used Substance Use Topics Alcohol use: No Drug use: No Current Outpatient Medications Medication Sig ketoconazole (NIZORAL) 2 % shampoo Apply small amount every 2 - 3 days for up to 8 weeks, then as needed. Lather, massage into affected areas. Allow shampoo remain on the affected areas for 5 minutes and then rinse off the shampoo. fluticasone (FLONASE) 50 mcg/actuation nasal spray Use 1 [place] in each nostril once daily. loratadine (CLARITIN) 10 mg tablet Take 10 mg by mouth once daily. Olopatadine (PATADAY ONCE DAILY RELIEF) 0.2 % drop Use 1 Drop in both eyes once daily. albuterol HFA (PROVENTIL HFA, VENTOLIN HFA) 90 mcg/actuation inhaler Inhale 2 Puffs as instructed every 4 hours as needed for wheezing/shortness of breath. No current facility-administered medications for this visit. Allergies As of Date: 12/12/2023 Allergen Noted Reaction SEASONAL ALLERGIES 12/29/2017 Other: See Comments Fully Assessed 12/12/2023 REVIEW OF SYSTEMS Expanded ROS: N/A Allergies and current medication updated:Yes SENSITIVE EXAM: The sensitive examination was discussed with the Patient or Patient's Authorized Chocolate Finisher Operator. As applicable, any other physician, advance practice provider, medical student, or other health professional student that will be observing or involved in the sensitive examination for educational or training purposes was discussed with the Patient or Authorized Chocolate Finisher Operator. The Patient or Authorized Chocolate Finisher Operator has agreed to proceed with the sensitive examination. (Sensitive examination includes inspection and/or palpation of the breasts, pelvis, prostate and anorectal regions). EXAM: LMP 10/08/2023 GENERAL: pleasant, female in no apparent distress HEENT: Normocephalic, atraumatic, mucus membranes moist, and no lesions CHEST: Normal inspiratory effort PELVIC: external genitalia normal, normal Bartholin's glands, urethra, [place]'s glands, no vulvar lesions, no cervical lesions, good vaginal support, physiologic discharge present, normal appearing perineal body and perianal region BIMANUAL: uterus normal size, shape and consistency, no adnexal masses, and positive cervical motion tenderness NEURO: alert and oriented x3,exam grossly non-focal EXTREMITIES: normal ASSESSMENT/PLAN: 1. Vaginal discharge - ICD9: 623.5, ICD10: N89.8 (primary diagnosis) - FRANCO/TRICHOMONAS NAAT - BACTERIAL VAGINOSIS NAAT - UROGENITAL UREAPLASMA AND MYCOPLASMA SPECIES BY PCR, FOR GENITAL, RECTAL, URINE SAMPLES 2. Vaginal irritation - ICD9: 623.9, ICD10: N89.8 - FRANCO/TRICHOMONAS NAAT - BACTERIAL VAGINOSIS NAAT - UROGENITAL UREAPLASMA AND MYCOPLASMA SPECIES BY PCR, FOR GENITAL, RECTAL, URINE SAMPLES 3. Family history of thyroid disorder - ICD9: V18.19, ICD10: Z83.49 - THYROID STIMULATING HORMONE - THYROID PEROXIDASE ANTIBODY - T3, FREE - T4 FREE/FREE THYROXINE Will notify patient of test results. Nilda Stiles APRN.BANDAGE WINDING MACHINE OPERATOR Medical Decision Making: Problems: Moderate: New problem with uncertain prognosis Data: U (more content not included)... Normal [facility] T3Free SerPl-mCncon 10-07-20 24 Free T3 [Mass/Vol] 3.2 pg/mL Normal 2.3-4.1 [facility] Comment on above: Order Comment: Speci men Type: BLOOD SPECIMENOrdering Facility: [facility] Address: [address] [place] [address] Performed By: #### 3 051-0, 3024-7, 3016-3 ####[facility] LABIA [id number] [place] [address] [place] T4 Free SerPl-mCncon 024 Free T4 [Mass/Vol] 1.2 ng/dL Normal 0.9-1.7 [facility] Comment on above: Order Comment: Violeta alvarez Type: BLOOD SPECIMENOrdering Facility: [facility] Address: [address] [place] [address] Performed By: #### 3 051-0, 3024-7, 3016-3 ####[facility] LABIA [id number] [place] [address] [place] THYROID PEROXIDASE ANTIBODYo n 12-12-2023 TPO Ab Qn [IU]/mL Normal <5.6 [facility] Comment on above: Order Comment: Violeta alvarez Type: BLOOD SPECIMENOrdering Facility: [facility] Address: [address] [place] [address] Result Comment: Thyr oid Peroxidase Antibody test is used as an aid in diagnosis of autoimmune thyroid disease. Clinical correlation is required. Performed By: #### M ICRO ####[facility] LABIA [id number] [place] [address] [place] TSH SerPl-aCncon 12-12-2023 TSH Qn 1.050 m[IU]/L Normal 0.510-4.300 [facility] Comment on above: Order Comment: Sandrai antonio Type: BLOOD SPECIMENOrdering Facility: [facility] Address: [address] [place] [address] Result Comment: If t he patient is , TSH reference range varies by gestational period: First Trimester (weeks 9-12): 0.180-2.990 mIU/L Second Trimester: 0.110-3.980 mIU/L Third Trimester: 0.480-4.710 mIU/L Dayo Vega et al. A Practical Approach for the Verifications and Determination of Site- and Trimester-Specific Reference Intervals for Thyroid Function tests in . Thyroid, 2019:29:3:412-420. Edmar E, et al. 2017 Guidelines of the [place] Thy[employer] for the Diagnosis and Management of Thyroid Disease during and the . Thyroid, 2017:27:3:315-389. Reference ranges were not locally established for this patient's age group. The normal values are based on the following source: Chante Montoya V. Reference Ranges for Adults and Children: Pre-analytical Considerations. [facility] Performed By: #### 3 051-0, 3024-7, 3016-3 ####[facility] LABCLIA [id number] [place] [address] [place] [facility] UROGENITAL UREAPLASMA AND MY COPLASMA SPECIES BY PCR, FOR GENITAL, RECTAL, URINE SAMPLESon 12-12-2023 M GENITALIUM PCR Not detected Normal [facility] Comment on above: Order Comment: Speci men Type: SWABOrdering Facility: [facility] Address: [address] [place] [address] Result Comment: INTE RPRETIVE INFORMATION: Urogenital Ureaplasma and Mycoplasma Species by PCR A negative result does not rule out the presence of PCR inhibitors in the patient specimen or test-specific nucleic acid in concentrations below the level of detection by this test. This test was developed and its performance characteristics determined by [facility]. It has not been cleared or approved by the [place] Food and Drug Administration. This test was performed in a CLIA certified laboratory and is intended for clinical purposes. Performed By: [facility] [address] [id number] Professor Of Philosophy: Jonathan Guzman MD, PhD CLIA Number: [id number] Performed By: #### U RMPCR ####[facility] [id number] [place] [address] MYCOPLAS HOMINIS PCR Not detected Normal [facility] Comment on above: Order Comment: Speci men Type: SWABOrdering Facility: [facility] Address: [address] [place] [address] Performed By: #### U RMPCR ####[facility]IES[facility] [id number] [place] [address] UR PARVUM PCR Detected Abnormal [facility] Comment on above: Order Comment: Speci men Type: SWABOrdering Facility: [facility] Address: [address] [place] [address] Performed By: #### U RMPCR ####[facility] [id number] [place] [address] UR UREALYTICUM PCR Not detected Normal [facility] Comment on above: Order Comment: Speci men Type: SWABOrdering Facility: [facility] Address: [address] [place] [address] Performed By: #### U RMPCR ####[facility]IES[facility] [id number] [place] [address] UR/MYCO SOURCE Genital Normal [facility] Comment on above: Order Comment: Speci men Type: SWABOrdering Facility: [facility] Address: [address] [place] [address] Performed By: #### U RMPCR ####[facility]IESCL[facility] [id number] [place] [address] Ankle min 3 Viewson 11-15-19 Ankle min 3 Views [facility] [address] [place] [address] Ankle min 3 Views MR#: [id number] Acct: [id number] Name: AMIRAH WOODARD Rep #: [id number] : 2005 F 18 From: Bruno Méndez MD PCP: Dr. Que Chavez MD Status: DEP AMB Study: Ankle min 3 Views Date of Exam: 11/15/23 Exam# [id number] Ordering Dr: Antwon Miranda MD [id number] STUDY: X-RAY - LEFT ANKLE REASON FOR EXAM: Female, 18 years old. Fracture follow-up. TECHNIQUE: 3 views of the left ankle. COMPARISON: Left ankle radiographs dated 10/18/2023. FINDINGS: There is further healing of the previously seen oblique nondisplaced fracture of the distal fibula. Normal visualized distal tibia. Normal medial malleolus. Normal tibiotalar articulation and ankle mortise. Normal visualized talus and calcaneus. The visualized subtalar, talonavicular, calcaneocuboid and tarsal articulations are normal. There is decreased soft tissue swelling overlying the lateral malleolus. RAD/Ankle min 3 Views IMPRESSION: Further healing of the previously seen oblique nondisplaced fracture of the distal fibula. Decreased soft tissue swelling overlying the lateral malleolus. Electronically Signed: Bruno Méndez MD at 15:51 EDT Reading Location ID and State: [facility] / [place] , Service support , CC: Dr. Que Chavez MD; Dr. Antwon Miranda MD Senior Director Of [employer]: Signed Normal [facility] Orthopedic Visit Reporton Orthopedic Visit Report [facility] [address] [place] [id number] OFFICE VISIT Date of Service: 11/15/23 MR#: [id number] Acct: [id number] Name: AMIRAH WOODARD Rep #: [id number] : 2005 Provider: Dr. Antwon sebastian MD Age/Sex: 18/F Location: [facility] Status: Signed Intake Vital Signs 11/14/23 09:57 Height 5 ft 3 in Intake Visit Reasons: LEFT LEG Chief Complaint: left ankle Accompanied by: Self Is patient in pain?: No Allergies No Known Allergies Allergy (Verified 11/15/23 15:06) Medications ???Medication ???Instructions ???Recorded ???Confirmed ???Type Lactobacillus 25 billion cap PO 10/04/23 11/15/23 History cell-Bifido 25 billion dfmc-BIO-souyk capsule albuterol sulfate 90 mcg/actuation inhalation 10/04/23 11/15/23 History aerosol inhaler PFSH Medical History Left ankle pain Surgical History Hx of wisdom tooth extraction Hx of tonsillectomy Social History Smoking Status: Never smoker HPI LEFT LEG Details: This documentation accurately reflects the service provided and the decisions made by me, Dr. Antwon Miranda MD 11/15/23 1049. Part of today???s visit was documented by [ ], acting as scribe. AMIRAH WOODARD is a 18 year old F here today for 6 wks FU L ankle isolated distal fibula fracture, non op mgt. patient doing well doing some gentle ankle range of motion no physical therapy. Using the orthosis boot and crutches. No acute concerns. Pain settling down. Supplemental Info X-rays 3 views left ankle AP lateral and oblique demonstrate the fracture to be well aligned healed ankle mortise appears well aligned Coding Level of Care Code Off vis,est,level 3 Diagnoses Left ankle pain M25.572 Assessment and Plan Assessment and Plan (1) Left ankle pain: Status: Acute Plan: AMIRAH WOODARD is a 18 year old F here today for 6 wks FU L ankle isolated distal fibula fracture, non op mgt. fracture appears well aligned and healed no pain clinically. Recommend to discontinue the orthosis boot and crutches gradually over the next few weeks return to normal activities and follow-up as needed. Patient understands no further questions or concerns. Orders: Orders Ankle min 3 Views Today M25.572 - Pain in left ankle and joints of left foot Ortho Exam General General: Yes no acute distress Neurologic: Yes alert and Yes oriented x3 Psychologic: Yes reasonable and appropriate Left Foot/Ankle Skin: Yes CDI; No Ecchymosis, Soft Tissue Swelling or Erythema Exam: No Ecchymosis, Soft tissue swelling, Erythema, tender to palpate - over fracture site, TTP Lateral Malleolus, TTP ATFL, TTP Medial Malleolus, TTP Deltoid Ligament or TTP distal 5th metatarsal Dorsiflexion 0-20: 5 degrees Plantar Flexion 0-40: 30 degrees ROM: Yes pain with range of motion Tests: Michele Test: 1 and Squeeze Test: 1 Motor: Ankle Dorsiflextion: 5, Ankle Plantar Flexion: 5, Ankle Eversion: 5, Ankle Inversion: 5 and EHL: 5 Sensation: Deep Peroneal Nerve: I, Superficial Peroneal Nerve: I, Tibial Nerve: I, Sural Nerve: I and Saphenous Nerve: I 11/15/23 1528 Date Antwon Gomez Signature: Date (if applicable) CC: Normal [facility] 10-31-2023 OV Office Visit (PEDSWS ) AMIRAH WOODARD ([id number]) 3 F Date Time Provider Department 10/31/23 11:00 AM SOMMER HERNANDEZ PEDSWS During your visit today, we recorded the following information about you: Temperature Pulse Respiration Blood pressure 98.2 degrees 102/minute 18/minute 116/78 Weight Height Last Period 85.7 kg 1.668 m 10/08/23 Sommer Hernandez PA-C 11/04/2023 7:46 AM Signed WELL VISIT PEDIATRIC 18+ YRS OLD Amirah is a 18 year old who presents today for well exam. SUBJECTIVE CONCERNS: Yeast infection in vaginal area, scalp, belly button - completed 7 day course Monistat, JOINER APPRENTICE advised in office visit with them Allergy/Immunology referral? Started within the last year getting scratchy throat and SOB/difficulty breathing when eating certain fruits - apples, bananas, kiwi, oranges ACT: 15 - mild intermittent asthma, has Albuterol inhaler as needed, sick earlier last week, also tends to flare up this time of year Had some sinus issues recently Has had cough, keep getting SOB Using Albuterol a lot recently, getting relief with Albuterol Has never needed oral steroid prior (did receive steroid coincidentally for wisdom teeth this past Spring when asthma was flaring bad and it seemed to help a lot) HISTORY ACTIVE PROBLEM LIST Allergic Rhinitis - 07/13/2021 Gastroesophageal Reflux Disease - 06/12/2021 PAST MEDICAL HISTORY 08/09/2016: Exercise-induced asthma with acute exacerbation 10/01/2023: Fracture, fibula Comment: Left PAST SURGICAL HISTORY 07/2023: EXTRACTION ERUPTED TOOTH/EXR 12/21/2022: INSERT INTRAUTERINE DEVICE Comment: removed 05/2023: IUD REMOVAL 03/24/2021: TONSILLECTOMY HX ALLERGIES Allergen Reactions Seasonal Allergies Other: See Comments Puffy itchy eyes and scratchy throat. Medications: albuterol HFA (PROVENTIL HFA, VENTOLIN HFA) 90 mcg/actuation inhaler Inhale 2 Puffs as instructed every 4 hours as needed for wheezing/shortness of breath. fluticasone (FLONASE) 50 mcg/actuation nasal spray Use 1 [place] in each nostril once daily. loratadine (CLARITIN) 10 mg tablet Take 10 mg by mouth once daily. Olopatadine (PATADAY ONCE DAILY RELIEF) 0.2 % drop Use 1 Drop in both eyes once daily. predniSONE (DELTASONE) 20 mg tablet Take 3 tablets by mouth once daily for 5 days. ketoconazole (NIZORAL) 2 % shampoo Apply small amount every 2 - 3 days for up to 8 weeks, then as needed. Lather, massage into affected areas. Allow shampoo remain on the affected areas for 5 minutes and then rinse off the shampoo. FAMILY HISTORY Problem Relation Age of Onset None Mother None Father No Known Problems Sister No Known Problems Sister No Known Problems Sister No Known Problems Sister No Known Problems Sister None Maternal Grandmother None Maternal Grandfather None Paternal Grandmother None Paternal Grandfather Social History Social History Narrative Not on file Smoking Exposure: Do you spend a significant amount of time with anyone who smokes? No School: Presently in College. No academic or school related concerns No behavioral concerns Any concerns regarding peer interactions? No Recreational Screen Time totaling more than 2 hours of screen time per day. Physical Activity: more than 1 hour of physical activity per day Fainting, dizziness, significant shortness of breath or chest pain with sports or exercise: Yes, SOB with exercise. Keeps pushing herself then dizzy but she can control it. History of concussion in the last year: No Safety: 07/13/2021 Pediatric SDOH - Response to gun questions Are there any guns kept in or around your home or where your child spends time? No Reviewed seat belts, bike helmets, and smoke detectors Diet: -Diet is well balanced and appropriate for age -Fruits are eaten with most meals -Vegetables are eaten with most meals -Drinks whole milk -Drinks water daily -Regularly eats meals with family Elimination: no concerns, normal size and consistency Dental: dental care current Sleep: -no sleep concerns Vision: Wears glasses and Vision screening completed by eye doctor Hearing: No hearing concerns Growth: No growth concerns Gynecological history: LMP: 10/08/2023 Cycles are regular and last 4-5 days. Dysmenorrhea: moderate Heavy periods: no Substance use: none Sexual History: Attraction: male Sexually Active: Yes Number of lifetime partners: 4 Contraception: condoms every time GC/C screen within the past year: Yes GC/C screen since most recent partner? Yes History of STI: No Hx of STI/HIV testing? Yes, STI Any new partners since last testing? No Change in normal vaginal discharge: No Body image: satisfactory Screening tools reviewed and discussed with patient/idwhoh-NUX-2 and Social Determinants of Health. Please see Patient Entered Data. SDOH: Food Insecurity: No F (more content not included)... Normal [facility] Ankle min 3 Viewson 10-18-19 23 Ankle min 3 Views [facility] [address] [place] [address] Ankle min 3 Views MR#: [id number] Acct: [id number] Name: AMIRAH WOODARD Rep #: [id number] : 2005 F 18 From: Feliciano narayan MD PCP: Dr. Que Chavez MD Status: DEP AMB Study: Ankle min 3 Views Date of Exam: 10/18/23 Exam# [id number] Ordering Dr: Antwon Miranda [place] [id number] INDICATION: fu EXAMINATION/TECHNIQUE: X-RAY - LEFT XR Ankle Min 3 Views COMPARISON: 10/04/2023. FINDINGS: Redemonstration of lateral malleolus fracture with aggressive but incomplete healing. No change in alignment. Soft tissue swelling of the ankle. RAD/Ankle min 3 Views IMPRESSION: Redemonstration of lateral malleolus fracture with aggressive but incomplete healing. No change in alignment. No new abnormalities. Electronically Signed: Feliciano Amaro MD at 1:30 EDT , CC: Dr. Que Chavez MD; Dr. Antwon Miranda MD Senior Director Of [employer]: Signed Normal [facility] Orthopedic Visit Reporton Orthopedic Visit Report [facility] [address] [place] [address] OFFICE VISIT Date of Service: 10/18/23 MR#: [id number] Acct: [id number] Name: AMIRAH WOODARD Rep #: [id number] : 2005 Provider: Dr. Antwon sebastian MD Age/Sex: 18/F Location: [facility] [place] Status: Signed Intake Vital Signs 10/03/23 08:06 Height 5 ft 3 in Intake Visit Reasons: LEFT LEG Accompanied by: Mother Is patient in pain?: No Allergies No Known Allergies Allergy (Verified 10/18/23 10:05) Medications ???Medication ???Instructions ???Recorded ???Confirmed ???Type Lactobacillus 25 billion cap PO 10/04/23 10/18/23 History cell-Bifido 25 billion upga-MZR-ewsvq capsule albuterol sulfate 90 mcg/actuation inhalation 10/04/23 10/18/23 History aerosol inhaler hydrocodone-acetaminop hen 5-325mg 1 tab PO Q6 PRN 10/04/23 10/18/23 History 5mg-325mg PFSH Medical History Left ankle pain Surgical History Hx of wisdom tooth extraction Hx of tonsillectomy Social History Smoking Status: Never smoker HPI LEFT LEG Details: This documentation accurately reflects the service provided and the decisions made by me, Dr. Antwon Miranda MD 10/18/23 1003. Part of today???s visit was documented by [ ], acting as scribe. AMIRAH WOODARD is a 18 year old F here today for 2 wks FU L ankle isolated distal fibula fracture. Overall the patient is doing well. They are out of work. Need a form filled out I have not got that yet. Trying to be nonweightbearing on crutches. Have the orthosis boot doing some gentle range of motion. Ortho Exam General General: Yes no acute distress Neurologic: Yes alert and Yes oriented x3 Psychologic: Yes reasonable and appropriate Left Foot/Ankle Skin: Yes CDI; No Ecchymosis, Soft Tissue Swelling or Erythema Exam: Yes TTP Lateral Malleolus and TTP ATFL; No Ecchymosis, Soft tissue swelling, Erythema, TTP Medial Malleolus, TTP Deltoid Ligament or TTP distal 5th metatarsal Dorsiflexion 0-20: 0 degrees Plantar Flexion 0-40: 20 degrees ROM: Yes pain with range of motion Motor: Ankle Dorsiflextion: 4, Ankle Plantar Flexion: 4, Ankle Eversion: 4, Ankle Inversion: 4 and EHL: 4 Sensation: Deep Peroneal Nerve: I, Superficial Peroneal Nerve: I, Tibial Nerve: I, Sural Nerve: I and Saphenous Nerve: I Supplemental Info xr 3 view L ankle - Coding Level of Care Code Off vis,est,level 3 Diagnoses Left ankle pain M25.572 Assessment and Plan Assessment and Plan (1) Left ankle pain: Status: Acute Plan: 18 yr F 2 wks FU L ankle isolated distal fibula fracture with no malalignment no shifting displacement or angulation with normal alignment of the syndesmosis and the mortise. Continue nwb, FU 4 weeks. Patient will have to get me the form so I can fill that out for missing work. They understood no further questions or concerns. Okay to remove the boot for gentle range of motion and they should be doing that every day. Orders: Orders Ankle min 3 Views Today M25.572 - Pain in left ankle and joints of left foot 10/18/23 1032 Date Antwon Miranda MD Cosigner Signature: Date (if applicable) CC: Normal [facility] STREP A MOLECULAR (POC)on Procedural Control Valid [facility] Strep A (POCT) Negative Negative [facility] BACTERIAL VAGINOSIS NAATon 0 07-12-2023 Interpretation and review of laboratory results Abnormal [facility] Lactobacillus crispatus+gasseri+imelda enii + Gardnerella vaginalis + Atopobium vaginae rRNA MEG+probe Ql (Vag fld) Positive Abnormal Negative for bacterial vaginosis [facility] FRANCO/TRICHOMONAS NAATon 0 07-12-2023 C. glabrata RNA MEG+probe Ql (Vag fld) Negative Negative for Franco glabrata [facility] Franco sp DNA MEG+probe Ql (Vag fld) Negative Negative for Franco species [facility] Interpretation and review of laboratory results Normal [facility] T. vaginalis DNA MEG+probe Ql (Unsp spec) Negative Negative for Trichomonas vaginalis by amplification [facility] US Pelvis transvaginalon [facility] BACTERIAL VAGINOSIS NAATon 0 05-04-2023 Lactobacillus crispatus+gasseri+imelda enii + Gardnerella vaginalis + Atopobium vaginae rRNA MEG+probe Ql (Vag fld) Negative Negative for bacterial vaginosis [facility] C. trachomatis+N. gonorrhoea e DNA MEG+probe Ql (Unsp spec)on 05-04-2023 C. trachomatis rRNA MEG+probe Ql (Unsp spec) Negative Negative for Chlamydia trachomatis by amplificaton [facility] N. gonorrhoeae rRNA MEG+probe Ql (Unsp spec) Negative Negative for Neisseria gonorrhoeae by amplification [facility] FRANCO/TRICHOMONAS NAATon 0 05-04-2023 C. glabrata RNA MEG+probe Ql (Vag fld) Negative Negative for Franco glabrata [facility] Franco sp DNA MEG+probe Ql (Vag fld) Negative Negative for Franco species [facility] T. vaginalis DNA MEG+probe Ql (Unsp spec) Negative Negative for Trichomonas vaginalis by amplification [facility] HCG QUAL UR B/Oon 07-15-2022 status Negative neg - pos [facility] yulisa [facility] Quality Check Yes [facility] Vital Signs Date Time Vital Sign Value Performing Clinician Facility 10-05-2024 16:20-0400 Body mass index (BMI) [Ratio] 37.85 kg/m2 Delfina Watson APRN.CNM Work Phone: [facility] 10-05-2024 16:20-0400 Body weight 103.06 kg Delfina Watson APRN.CNM Work Phone: [facility] 10-05-2024 16:20-0400 Diastolic blood pressure 74 mm[Hg] Delfina Watson APRN.CNKai Work Phone: [facility] 10-05-2024 16:20-0400 Systolic blood pressure 110 mm[Hg] Delfina Watson APRN.CNKai Work Phone: [facility] 09-25-2024 14:06-0400 Body mass index (BMI) [Ratio] 36.99 kg/m2 Janelle Marin MD Work Phone: [facility] 09-25-2024 14:06-0400 Body weight 100.7 kg Janelle Marin MD Work Phone: [facility] 09-25-2024 14:06-0400 Diastolic blood pressure 70 mm[Hg] Janelle Marin MD Work Phone: [facility] 09-25-2024 14:06-0400 Systolic blood pressure 110 mm[Hg] Janelle Marin MD Work Phone: [facility] 09-18-2024 13:26-0400 Body mass index (BMI) [Ratio] 37.02 kg/m2 Alo Thompson MD Work Phone: [facility] 09-18-2024 13:26-0400 Body weight 100.79 kg Alo Thompson MD Work Phone: [facility] 09-18-2024 13:26-0400 Diastolic blood pressure 72 mm[Hg] Alo Thompson MD Work Phone: [facility] 09-18-2024 13:26-0400 Systolic blood pressure 110 mm[Hg] Alo Thompson MD Work Phone: [facility] 09-12-2024 10:33-0400 Body mass index (BMI) [Ratio] 35.99 kg/m2 Castillo Mckeon MD Work Phone: [facility] 09-12-2024 10:33-0400 Body weight 97.98 kg Castillo Mckeon MD Work Phone: [facility] 09-12-2024 10:33-0400 Diastolic blood pressure 82 mm[Hg] Castillo Mckeon MD Work Phone: [facility] 09-12-2024 10:33-0400 Systolic blood pressure 124 mm[Hg] Castillo Mckeon MD Work Phone: [facility] 09-04-2024 12:22-0400 Body temperature 98 [degF] Dr. Ruiz Vega DO Work Phone: [facility] 09-04-2024 12:22-0400 Diastolic blood pressure 75 mm[Hg] Dr. Ruiz Vega DO Work Phone: [facility] 09-04-2024 12:22-0400 Heart rate 99 /min Dr. Ruiz Vega DO Work Phone: [facility] 09-04-2024 12:22-0400 Respiratory rate 17 /min Dr. Ruiz Vega DO Work Phone: [facility] 09-04-2024 12:22-0400 SaO2% (BldA) [Mass fraction] 94 % Dr. Ruiz Vega DO Work Phone: [facility] 09-04-2024 12:22-0400 Systolic blood pressure 115 mm[Hg] Dr. Ruiz Vega DO Work Phone: [facility] 09-04-2024 10:11-0400 Body height 162.[address] Ruiz Vega DO Work Phone: [phone] [place] [address] 09-04-2024 10:11-0400 Body mass index (BMI) [Ratio] 37.1 kg/m2 Dr. Ruiz Vega DO Work Phone: [facility] 09-04-2024 10:11-0400 Body weight 98.[address] Ruiz Vega DO Work Phone: [facility] 09-04-2024 09:32-0400 Body mass index (BMI) [Ratio] 35.65 kg/m2 Janelle Marin MD Work Phone: [facility] 09-04-2024 09:32-0400 Body weight 97.07 kg Janelle Marin MD Work Phone: [facility] 09-04-2024 09:32-0400 Diastolic blood pressure 76 mm[Hg] Janelle Marin MD Work Phone: [facility] 09-04-2024 09:32-0400 Heart rate 126 /min Janelle Marin MD Work Phone: [facility] 09-04-2024 09:32-0400 SaO2% (BldA) [Mass fraction] 98 % Janelle Marin MD Work Phone: [facility] 09-04-2024 09:32-0400 Systolic blood pressure 128 mm[Hg] Janelle Marin MD Work Phone: [facility] 08-30-2024 14:52-0400 Body mass index (BMI) [Ratio] 36.15 kg/m2 La Plotts TEXTILE ENGRAVER.CNM Work Phone: [facility] 08-30-2024 14:52-0400 Body weight 98.43 kg La Plotts TEXTILE ENGRAVER.CNM Work Phone: [facility] 08-30-2024 14:52-0400 Diastolic blood pressure 68 mm[Hg] La Plotts TEXTILE ENGRAVER.CNM Work Phone: [facility] 08-30-2024 14:52-0400 Systolic blood pressure 120 mm[Hg] La Plotts TEXTILE ENGRAVER.CNM Work Phone: [facility] 08-16-2024 14:23-0400 Body mass index (BMI) [Ratio] 35.49 kg/m2 Lindsey Moreno TEXTILE ENGRAVER.BANDAGE WINDING MACHINE OPERATOR Work Phone: [facility] 08-16-2024 14:23-0400 Body weight 96.62 kg Lindsey Moreno TEXTILE ENGRAVER.BANDAGE WINDING MACHINE OPERATOR Work Phone: [facility] 08-16-2024 14:23-0400 Diastolic blood pressure 62 mm[Hg] Lindsey Haury TEXTILE ENGRAVER.BANDAGE WINDING MACHINE OPERATOR Work Phone: [facility] 08-16-2024 14:23-0400 Systolic blood pressure 112 mm[Hg] Lindsey Moreno TEXTILE ENGRAVER.BANDAGE WINDING MACHINE OPERATOR Work Phone: [facility] 08-13-2024 09:18-0400 Body height 165 cm Ruiz Vega DO Work Phone: [facility] 08-13-2024 09:18-0400 Body mass index (BMI) [Ratio] 35.15 kg/m2 Ruiz Vega DO Work Phone: [facility] 08-13-2024 09:18-0400 Body temperature 96.4 [degF] Ruiz Vega DO Work Phone: [facility] 08-13-2024 09:18-0400 Body weight 95.71 kg Ruiz Vega DO Work Phone: [facility] 08-13-2024 09:18-0400 Diastolic blood pressure 60 mm[Hg] Ruiz Vega DO Work Phone: [facility] 08-13-2024 09:18-0400 Heart rate 88 /min Ruiz Vega DO Work Phone: [facility] 08-13-2024 09:18-0400 Respiratory rate 16 /min Ruiz Vega DO Work Phone: [facility] 08-13-2024 09:18-0400 Systolic blood pressure 90 mm[Hg] Ruiz Vega DO Work Phone: [facility] 08-01-2024 09:33-0400 Body mass index (BMI) [Ratio] 36.39 kg/m2 Castillo Mckeon MD Work Phone: [facility] 08-01-2024 09:33-0400 Body weight 96.16 kg Castillo Mckeon MD Work Phone: [facility] 08-01-2024 09:33-0400 Diastolic blood pressure 78 mm[Hg] Castillo Mckeon MD Work Phone: [facility] 08-01-2024 09:33-0400 Systolic blood pressure 128 mm[Hg] Castillo Mckeon MD Work Phone: [facility] 07-20-2024 08:32-0400 Body mass index (BMI) [Ratio] 35.36 kg/m2 Lindsey Moreno APRN.BANDAGE WINDING MACHINE OPERATOR Work Phone: [facility] 07-20-2024 08:32-0400 Body weight 93.44 kg Lindsey Moreno APRN.BANDAGE WINDING MACHINE OPERATOR Work Phone: [facility] 07-20-2024 08:32-0400 Diastolic blood pressure 64 mm[Hg] Lindsey Moreno APRN.BANDAGE WINDING MACHINE OPERATOR Work Phone: [facility] 07-20-2024 08:32-0400 Systolic blood pressure 118 mm[Hg] Lindsey Moreno APRN.BANDAGE WINDING MACHINE OPERATOR Work Phone: [facility] 06-21-2024 13:04-0400 Body mass index (BMI) [Ratio] 34.67 kg/m2 La Plotts TEXTILE ENGRAVER.CNM Work Phone: [facility] 06-21-2024 13:04-0400 Body weight 91.63 kg La Plotts TEXTILE ENGRAVER.CNM Work Phone: [facility] 06-21-2024 13:04-0400 Diastolic blood pressure 62 mm[Hg] La Plotts TEXTILE ENGRAVER.CNM Work Phone: [facility] [facility] 06-21-2024 13:04-0400 Systolic blood pressure 114 mm[Hg] La Plotts TEXTILE ENGRAVER.CNM Work Phone: [facility] 06-19-2024 14:38-0400 Body mass index (BMI) [Ratio] 35.02 kg/m2 Janelle Marin MD Work Phone: [facility] 06-19-2024 14:38-0400 Body weight 92.53 kg Janelle Marin MD Work Phone: [facility] 06-19-2024 14:38-0400 Diastolic blood pressure 60 mm[Hg] Janelle Marin MD Work Phone: [facility] 06-19-2024 14:38-0400 Systolic blood pressure 120 mm[Hg] Janelle Marin MD Work Phone: [facility] 06-06-2024 13:05-0400 Body mass index (BMI) [Ratio] 34.67 kg/m2 La Plotts TEXTILE ENGRAVER.CNM Work Phone: [facility] 06-06-2024 13:05-0400 Body weight 91.63 kg La Plotts TEXTILE ENGRAVER.CNM Work Phone: [facility] 06-06-2024 13:05-0400 Diastolic blood pressure 66 mm[Hg] La Plotts TEXTILE ENGRAVER.CNM Work Phone: [facility] 06-06-2024 13:05-0400 Systolic blood pressure 114 mm[Hg] La Plotts TEXTILE ENGRAVER.CNM Work Phone: [facility] 05-25-2024 15:18-0400 Body mass index (BMI) [Ratio] 34.16 kg/m2 Kia Lucero MD Work Phone: [facility] 05-25-2024 15:18-0400 Body weight 90.27 kg Kia Lucero MD Work Phone: [facility] 05-25-2024 15:18-0400 Diastolic blood pressure 70 mm[Hg] Kia Lucero MD Work Phone: [facility] 05-25-2024 15:18-0400 Systolic blood pressure 114 mm[Hg] Kia Lucero MD Work Phone: [facility] 04-27-2024 13:06-0500 Body mass index (BMI) [Ratio] 33.81 kg/m2 Delfina Watson TEXTILE ENGRAVER.CNM Work Phone: [facility] 04-27-2024 13:06-0500 Body weight 89.36 kg Delfina Watson TEXTILE ENGRAVER.CNM Work Phone: [facility] 04-27-2024 13:06-0500 Diastolic blood pressure 68 mm[Hg] Delfina Watson TEXTILE ENGRAVER.CNM Work Phone: [facility] 04-27-2024 13:06-0500 Systolic blood pressure 116 mm[Hg] Delfina Watson TEXTILE ENGRAVER.CNM Work Phone: [facility] 04-03-2024 16:15-0500 Body mass index (BMI) [Ratio] 33.3 kg/m2 Delfina Watson TEXTILE ENGRAVER.CNM Work Phone: [facility] 04-03-2024 16:15-0500 Body weight 88 kg Delfina Watson TEXTILE ENGRAVER.CNM Work Phone: [facility] 04-03-2024 16:15-0500 Diastolic blood pressure 60 mm[Hg] Delfina Watson TEXTILE ENGRAVER.CNM Work Phone: [facility] 04-03-2024 16:15-0500 Systolic blood pressure 104 mm[Hg] Delfina Watson TEXTILE ENGRAVER.CNM Work Phone: [facility] 03-28-2024 09:18-0500 Body mass index (BMI) [Ratio] 33.13 kg/m2 Duncan Munguia MD Work Phone: [facility] 03-28-2024 09:18-0500 Body weight 87.54 kg Duncan Munguia MD Work Phone: [facility] 03-28-2024 09:18-0500 Diastolic blood pressure 70 mm[Hg] Duncan Munguia MD Work Phone: [facility] 03-28-2024 09:18-0500 Systolic blood pressure 120 mm[Hg] Duncan Munguia MD Work Phone: [facility] 03-19-2024 13:50-0500 Body mass index (BMI) [Ratio] 33.15 kg/m2 Josiane Luzader TEXTILE ENGRAVER.BANDAGE WINDING MACHINE OPERATOR Work Phone: [facility] 03-19-2024 13:50-0500 Body temperature 98.2 [degF] Josiane Luzader TEXTILE ENGRAVER.BANDAGE WINDING MACHINE OPERATOR Work Phone: [facility] 03-19-2024 13:50-0500 Body weight 87.6 kg Josiane Luzader TEXTILE ENGRAVER.BANDAGE WINDING MACHINE OPERATOR Work Phone: [facility] 03-19-2024 13:50-0500 Heart rate 84 /min Josiane Luzader TEXTILE ENGRAVER.BANDAGE WINDING MACHINE OPERATOR Work Phone: [facility] 03-19-2024 13:50-0500 Respiratory rate 16 /min Josiane Luzader TEXTILE ENGRAVER.BANDAGE WINDING MACHINE OPERATOR Work Phone: [facility] 03-13-2024 11:57-0500 Body mass index (BMI) [Ratio] 32.96 kg/m2 Roberto Powers PA-C Work Phone: [facility] 03-13-2024 11:57-0500 Body temperature 97.59 [degF] Roberto Powers PA-C Work Phone: [facility] 03-13-2024 11:57-0500 Body weight 87.1 kg Roberto Clutter PA-C Work Phone: [facility] 03-13-2024 11:57-0500 Diastolic blood pressure 72 mm[Hg] Roberto Clutter PA-C Work Phone: [facility] 03-13-2024 11:57-0500 Heart rate 87 /min Roberto Clutter PA-C Work Phone: [facility] 03-13-2024 11:57-0500 Respiratory rate 18 /min Roberto Clutter PA-C Work Phone: [facility] 03-13-2024 11:57-0500 SaO2% (BldA) [Mass fraction] 98 % Roberto Clutter PA-C Work Phone: [facility] 03-13-2024 11:57-0500 Systolic blood pressure 110 mm[Hg] Roberto Clutter PA-C Work Phone: [facility] 02-21-2024 08:17-0500 Body height 162.6 cm Nilda Linsey TEXTILE ENGRAVER.BANDAGE WINDING MACHINE OPERATOR Work Phone: [facility] 02-21-2024 08:17-0500 Body mass index (BMI) [Ratio] 32.41 kg/m2 Nilda Linsey TEXTILE ENGRAVER.BANDAGE WINDING MACHINE OPERATOR Work Phone: [facility] 02-21-2024 08:17-0500 Body weight 85.64 kg Nilda Gordo TEXTILE ENGRAVER.BANDAGE WINDING MACHINE OPERATOR Work Phone: [facility] 02-21-2024 08:17-0500 Diastolic blood pressure 78 mm[Hg] Nilda Linsey TEXTILE ENGRAVER.BANDAGE WINDING MACHINE OPERATOR Work Phone: [facility] 02-21-2024 08:17-0500 Systolic blood pressure 124 mm[Hg] Nilda Linsey TEXTILE ENGRAVER.BANDAGE WINDING MACHINE OPERATOR Work Phone: [facility] 01-30-2024 14:05-0500 Body mass index (BMI) [Ratio] 30.55 kg/m2 Nilda Gordo TEXTILE ENGRAVER.BANDAGE WINDING MACHINE OPERATOR Work Phone: [facility] 01-30-2024 14:05-0500 Body weight 85 kg Nilda Gordo TEXTILE ENGRAVER.BANDAGE WINDING MACHINE OPERATOR Work Phone: [facility] 01-30-2024 14:05-0500 Diastolic blood pressure 72 mm[Hg] Nilda Gordo TEXTILE ENGRAVER.BANDAGE WINDING MACHINE OPERATOR Work Phone: [facility] 01-30-2024 14:05-0500 Systolic blood pressure 116 mm[Hg] Nilda Linsey TEXTILE ENGRAVER.BANDAGE WINDING MACHINE OPERATOR Work Phone: [facility] 12-12-2023 15:32-0400 Body mass index (BMI) [Ratio] 30.49 kg/m2 Nilda Gordo TEXTILE ENGRAVER.BANDAGE WINDING MACHINE OPERATOR Work Phone: [facility] 12-12-2023 15:32-0400 Body weight 84.82 kg Nilda Gordo TEXTILE ENGRAVER.BANDAGE WINDING MACHINE OPERATOR Work Phone: [facility] 12-12-2023 15:32-0400 Diastolic blood pressure 66 mm[Hg] Nilda Gordo TEXTILE ENGRAVER.BANDAGE WINDING MACHINE OPERATOR Work Phone: [facility] 12-12-2023 15:32-0400 Systolic blood pressure 122 mm[Hg] Nilda Gordo TEXTILE ENGRAVER.BANDAGE WINDING MACHINE OPERATOR Work Phone: [facility] 10-31-2023 10:56-0400 Body height 166.8 cm Sommer Hernandez PA-C Work Phone: [facility] 10-31-2023 10:56-0400 Body mass index (BMI) [Ratio] 30.8 kg/m2 Sommer Hernandez PA-C Work Phone: [facility] 10-31-2023 10:56-0400 Body temperature 98.2 [degF] Sommer Hernandez PA-C Work Phone: [facility] 10-31-2023 10:56-0400 Body weight 85.68 kg Sommer Hernandez PA-C Work Phone: [facility] Comment on above: in a boot at this time 10-31-2023 10:56-0400 Diastolic blood pressure 78 mm[Hg] Sommer Hernandez PA-C Work Phone: [facility] 10-31-2023 10:56-0400 Heart rate 102 /min Sommer Hrenandez PA-C Work Phone: [facility] 10-31-2023 10:56-0400 Respiratory rate 18 /min Sommer Hernandez PA-C Work Phone: [facility] 10-31-2023 10:56-0400 Systolic blood pressure 116 mm[Hg] Sommer Hernandez PA-C Work Phone: [facility] 08-25-2023 13:59-0400 Body weight 86.91 kg Nilda Gordo TEXTILE ENGRAVER.BANDAGE WINDING MACHINE OPERATOR Work Phone: [facility] 08-25-2023 13:59-0400 Diastolic blood pressure 60 mm[Hg] Nilda Linsey TEXTILE ENGRAVER.BANDAGE WINDING MACHINE OPERATOR Work Phone: [facility] 08-25-2023 13:59-0400 Systolic blood pressure 110 mm[Hg] Nilda Gordo TEXTILE ENGRAVER.BANDAGE WINDING MACHINE OPERATOR Work Phone: [facility] 08-21-2023 10:35-0400 Body temperature 97.5 [degF] Alecia Vanessa TEXTILE ENGRAVER.BANDAGE WINDING MACHINE OPERATOR Work Phone: [facility] 08-21-2023 10:35-0400 Body weight 86.5 kg Alecia Vanessa TEXTILE ENGRAVER.BANDAGE WINDING MACHINE OPERATOR Work Phone: [facility] 08-21-2023 10:35-0400 Diastolic blood pressure 81 mm[Hg] Alecia Vanessa TEXTILE ENGRAVER.BANDAGE WINDING MACHINE OPERATOR Work Phone: [facility] 08-21-2023 10:35-0400 Heart rate 104 /min Alecia Vanessa TEXTILE ENGRAVER.BANDAGE WINDING MACHINE OPERATOR Work Phone: [facility] 08-21-2023 10:35-0400 Respiratory rate 18 /min Alecia Vanessa TEXTILE ENGRAVER.BANDAGE WINDING MACHINE OPERATOR Work Phone: [facility] 08-21-2023 10:35-0400 SaO2% (BldA) [Mass fraction] 98 % Alecia Vanessa TEXTILE ENGRAVER.BANDAGE WINDING MACHINE OPERATOR Work Phone: [facility] 08-21-2023 10:35-0400 Systolic blood pressure 112 mm[Hg] Alecia Vanessa TEXTILE ENGRAVER.BANDAGE WINDING MACHINE OPERATOR Work Phone: [facility] 07-29-2023 08:08-0400 Body weight 86.91 kg Nilda Linsey TEXTILE ENGRAVER.BANDAGE WINDING MACHINE OPERATOR Work Phone: [facility] 07-29-2023 08:08-0400 Diastolic blood pressure 66 mm[Hg] Nilda Gordo TEXTILE ENGRAVER.BANDAGE WINDING MACHINE OPERATOR Work Phone: [facility] 07-29-2023 08:08-0400 Systolic blood pressure 118 mm[Hg] Nilda Linsey TEXTILE ENGRAVER.BANDAGE WINDING MACHINE OPERATOR Work Phone: [facility] 07-11-2023 14:09-0400 Body weight 87.09 kg Nilda Linsey TEXTILE ENGRAVER.BANDAGE WINDING MACHINE OPERATOR Work Phone: [facility] 07-11-2023 14:09-0400 Diastolic blood pressure 74 mm[Hg] Nilda Gordo TEXTILE ENGRAVER.BANDAGE WINDING MACHINE OPERATOR Work Phone: [facility] 07-11-2023 14:09-0400 Systolic blood pressure 118 mm[Hg] Nilda Gordo TEXTILE ENGRAVER.BANDAGE WINDING MACHINE OPERATOR Work Phone: [facility] 06-24-2023 14:28-0400 Body temperature 97.5 [degF] Que Chavez MD Work Phone: [facility] 06-24-2023 14:28-0400 Body weight 88.22 kg Que Chavez MD Work Phone: [facility] 06-24-2023 14:28-0400 Heart rate 80 /min Que Chavez MD Work Phone: [facility] 06-24-2023 14:28-0400 Respiratory rate 16 /min Que Chavez MD Work Phone: [facility] 05-16-2023 14:25-0400 Body weight 88.45 kg Kia Lucero MD Work Phone: [facility] 05-16-2023 14:25-0400 Diastolic blood pressure 70 mm[Hg] Kia Lucero MD Work Phone: [facility] 05-16-2023 14:25-0400 Systolic blood pressure 102 mm[Hg] Kia Lucero MD Work Phone: [facility] 05-03-2023 14:36-0500 Body weight 88.81 kg Delfina Watson TEXTILE ENGRAVER.CNM Work Phone: [facility] 05-03-2023 14:36-0500 Diastolic blood pressure 72 mm[Hg] Delfina Watson TEXTILE ENGRAVER.CNM Work Phone: [facility] 05-03-2023 14:36-0500 Systolic blood pressure 110 mm[Hg] Delfina Watson TEXTILE ENGRAVER.CNM Work Phone: [facility] 10-05-2022 11:36-0400 Body height 158.2 cm Sommer Hernandez PA-C Work Phone: [facility] 10-05-2022 11:36-0400 Body mass index (BMI) [Percentile] Per age and sex 98.12 % Sommer Hernandez PA-C Work Phone: [facility] 10-05-2022 11:36-0400 Body temperature 97.7 [degF] Sommer Hernandez PA-C Work Phone: [facility] 10-05-2022 11:36-0400 Body weight 92.08 kg Sommer Hernandez PA-C Work Phone: [facility] 10-05-2022 11:36-0400 Diastolic blood pressure 74 mm[Hg] Sommer Hernandez PA-C Work Phone: [facility] 10-05-2022 11:36-0400 Heart rate 98 /min Sommer Hernandez PA-C Work Phone: [facility] 10-05-2022 11:36-0400 Respiratory rate 18 /min Sommer Hernandez PA-C Work Phone: [facility] 10-05-2022 11:36-0400 Systolic blood pressure 124 mm[Hg] Sommer Hernandez PA-C Work Phone: [facility] 07-15-2022 15:03-0400 Body weight 88 kg Nilda Linsey TEXTILE ENGRAVER.BANDAGE WINDING MACHINE OPERATOR Work Phone: [facility] 07-15-2022 15:03-0400 Diastolic blood pressure 76 mm[Hg] Nilda Gordo TEXTILE ENGRAVER.BANDAGE WINDING MACHINE OPERATOR Work Phone: [facility] 07-15-2022 15:03-0400 Systolic blood pressure 100 mm[Hg] Nilda Linsey TEXTILE ENGRAVER.BANDAGE WINDING MACHINE OPERATOR Work Phone: [facility] 05-27-2022 11:36-0400 Body temperature 97.3 [degF] Ramon Patrick MD Work Phone: [facility] 05-27-2022 11:36-0400 Body weight 86.55 kg Ramon Patrick MD Work Phone: [facility] 05-27-2022 11:36-0400 Diastolic blood pressure 86 mm[Hg] Ramon Patrick MD Work Phone: [facility] 05-27-2022 11:36-0400 Heart rate 19 /min Ramon Patrick MD Work Phone: [facility] 05-27-2022 11:36-0400 Respiratory rate 18 /min Ramon Patrick MD Work Phone: [facility] 05-27-2022 11:36-0400 SaO2% (BldA) [Mass fraction] 97 % Ramon Patrick MD Work Phone: [facility] 05-27-2022 11:36-0400 Systolic blood pressure 110 mm[Hg] Ramon Patrick MD Work Phone: [facility] 05-07-2022 08:58-0500 Body temperature 98.6 [degF] Sommer Hernandez PA-C Work Phone: [facility] 05-07-2022 08:58-0500 Body weight 87.32 kg Sommer Hernandez PA-C Work Phone: [facility] 05-07-2022 08:58-0500 Heart rate 100 /min Sommer Hernandez PA-C Work Phone: [facility] 05-07-2022 08:58-0500 Respiratory rate 16 /min Sommer Hernandez PA-C Work Phone: [facility] 04-12-2022 08:30-0500 Body weight 86.82 kg Nilda Gordo TEXTILE ENGRAVER.BANDAGE WINDING MACHINE OPERATOR Work Phone: [facility] 04-12-2022 08:30-0500 Diastolic blood pressure 60 mm[Hg] Nilda Linsey TEXTILE ENGRAVER.BANDAGE WINDING MACHINE OPERATOR Work Phone: [facility] 04-12-2022 08:30-0500 Systolic blood pressure 100 mm[Hg] Nilda Gordo TEXTILE ENGRAVER.BANDAGE WINDING MACHINE OPERATOR Work Phone: [facility] 03-16-2022 09:53-0500 Body weight 86.46 kg Nilda Linsey TEXTILE ENGRAVER.BANDAGE WINDING MACHINE OPERATOR Work Phone: [facility] 03-16-2022 09:53-0500 Diastolic blood pressure 68 mm[Hg] Nilda Gordo TEXTILE ENGRAVER.BANDAGE WINDING MACHINE OPERATOR Work Phone: [facility] 03-16-2022 09:53-0500 Systolic blood pressure 100 mm[Hg] Nilda Gordo TEXTILE ENGRAVER.BANDAGE WINDING MACHINE OPERATOR Work Phone: [facility] 01-18-2022 10:13-0500 Body temperature 97.7 [degF] Alecia Vanessa TEXTILE ENGRAVER.BANDAGE WINDING MACHINE OPERATOR Work Phone: [facility] 01-18-2022 10:13-0500 Body weight 83.46 kg Alecia Vanessa TEXTILE ENGRAVER.BANDAGE WINDING MACHINE OPERATOR Work Phone: [facility] 01-18-2022 10:13-0500 Diastolic blood pressure 64 mm[Hg] Alecia Vanessa TEXTILE ENGRAVER.BANDAGE WINDING MACHINE OPERATOR Work Phone: [facility] 01-18-2022 10:13-0500 Heart rate 112 /min Alecia Vanessa TEXTILE ENGRAVER.BANDAGE WINDING MACHINE OPERATOR Work Phone: [facility] 01-18-2022 10:13-0500 Respiratory rate 16 /min Alecia Vanessa TEXTILE ENGRAVER.BANDAGE WINDING MACHINE OPERATOR Work Phone: [facility] 01-18-2022 10:13-0500 SaO2% (BldA) [Mass fraction] 96 % Alecia Vanessa TEXTILE ENGRAVER.BANDAGE WINDING MACHINE OPERATOR Work Phone: [facility] 01-18-2022 10:13-0500 Systolic blood pressure 118 mm[Hg] Alecia Vanessa TEXTILE ENGRAVER.BANDAGE WINDING MACHINE OPERATOR Work Phone: [facility] 10-28-2021 08:55-0400 Body height 163.8 cm Sommer Hernandez PA-C Work Phone: [facility] 10-28-2021 08:55-0400 Body mass index (BMI) [Percentile] Per age and sex 96.45 % Sommer Hernandez PA-C Work Phone: [facility] 10-28-2021 08:55-0400 Body temperature 97.9 [degF] Sommer Hernandez PA-C Work Phone: [facility] 10-28-2021 08:55-0400 Body weight 84.37 kg Sommer Hernandez PA-C Work Phone: [facility] 10-28-2021 08:55-0400 Heart rate 80 /min Sommer Hernandez PA-C Work Phone: [facility] 10-28-2021 08:55-0400 Respiratory rate 16 /min Sommer Hernandez PA-C Work Phone: [facility] 10-05-2021 12:50-0400 Body temperature 97.9 [degF] Alecia Vanessa TEXTILE ENGRAVER.BANDAGE WINDING MACHINE OPERATOR Work Phone: [facility] 10-05-2021 12:50-0400 Body weight 83.46 kg Alecia Vanessa TEXTILE ENGRAVER.BANDAGE WINDING MACHINE OPERATOR Work Phone: [facility] 08-01-2022 12:50-0400 Diastolic blood pressure 76 mm[Hg] Alecia Vanessa TEXTILE ENGRAVER.BANDAGE WINDING MACHINE OPERATOR Work Phone: [facility] 10-05-2021 12:50-0400 Heart rate 88 /min Alecia Vanessa TEXTILE ENGRAVER.BANDAGE WINDING MACHINE OPERATOR Work Phone: [facility] 10-05-2021 12:50-0400 Respiratory rate 16 /min Alecia Vanessa TEXTILE ENGRAVER.BANDAGE WINDING MACHINE OPERATOR Work Phone: [facility] 10-05-2021 12:50-0400 SaO2% (BldA) [Mass fraction] 98 % Alecia Vanessa TEXTILE ENGRAVER.BANDAGE WINDING MACHINE OPERATOR Work Phone: [facility] 10-05-2021 12:50-0400 Systolic blood pressure 124 mm[Hg] Alecia Vanessa TEXTILE ENGRAVER.BANDAGE WINDING MACHINE OPERATOR Work Phone: [facility] 07-13-2021 09:04-0400 Body height 163.4 cm Que Chavez MD Work Phone: [facility] 07-13-2021 09:04-0400 Body mass index (BMI) [Percentile] Per age and sex 96.38 % Que Chavez MD Work Phone: [facility] 07-13-2021 09:04-0400 Body temperature 97.7 [degF] Que Chavez MD Work Phone: [facility] 07-13-2021 09:04-0400 Body weight 83.01 kg Que Chavez MD Work Phone: [facility] 07-13-2021 09:04-0400 Heart rate 92 /min Que Chavez MD Work Phone: [facility] 07-13-2021 09:04-0400 Respiratory rate 20 /min Que Chavez MD Work Phone: [facility] 06-12-2021 09:04-0400 Body temperature 97.7 [degF] Que Chavez MD Work Phone: [facility] 06-12-2021 09:04-0400 Body weight 82.1 kg Que Chavez MD Work Phone: [facility] 06-12-2021 09:04-0400 Diastolic blood pressure 80 mm[Hg] Que Chavez MD Work Phone: [facility] 06-12-2021 09:04-0400 Heart rate 80 /min Que Chavez MD Work Phone: [facility] 06-12-2021 09:04-0400 Respiratory rate 18 /min Que Chavez MD Work Phone: [facility] 06-12-2021 09:04-0400 Systolic blood pressure 118 mm[Hg] Que Chavez MD Work Phone: [facility] Encounters Encounter Date Encounter Type Care Provider Facility Start: 10-09-2024 End: 10-09-2024 ambulatory RUIZ L VEGA Facility:[facility] Start: 10-05-2024 End: 10-05-2024 Patient encounter procedure Delfina Watson APRN.CNM Work Phone: OB/Gynecology Comment on above: 39 weeks gestation o f (HCC) (Primary Dx); Supervision of high risk in third trimester ([facility]); Obesity in ([facility]); Positive GBS test Start: 10-05-2024 End: 10-05-2024 ambulatory RUIZ L VEGA Facility:[facility] Start: 09-25-2024 End: 09-25-2024 Patient encounter procedure Janelle Marin MD Work Phone: OB/Gynecology Comment on above: Supervision of high risk in third trimester (HCC) (Primary Dx); 38 weeks gestation of (HCC) Start: 09-25-2024 End: 09-25-2024 ambulatory RUIZ L VEGA Facility:[facility] Start: 09-18-2024 End: 09-18-2024 Patient encounter procedure Alo Thompson MD Work Phone: OB/Gynecology Comment on above: Supervision of high risk in third trimester (HCC) (Primary Dx); 37 weeks gestation of ([facility]); Positive GBS test Start: 09-18-2024 End: 09-18-2024 ambulatory RUIZ L VEGA Facility:[facility] Start: 09-12-2024 End: 09-12-2024 Patient encounter procedure Castillo L Mike MD Work Phone: OB/Gynecology Comment on above: 36 weeks gestation o f (HCC) (Primary Dx); Supervision of high risk in third trimester (HCC); Obesity affecting in third trimester, unspecified obesity type (HCC); Heartburn during in third trimester (HCC) Start: 09-12-2024 End: 09-12-2024 ambulatory RUIZ L VEGA Facility:[facility] Start: 09-04-2024 End: 09-04-2024 Follow-up encounter Janelle Marin MD Work Phone: OB/Gynecology Start: 09-04-2024 End: 09-04-2024 Telephone encounter Delfina Watson APRN.CNM Work Phone: OB/Gynecology Comment on above: Patient Update Start: 09-04-2024 End: 09-04-2024 Emergency department patient visit Dr. Ruiz Vega DO Work Phone: -Emergency Department Work Phone: Start: 09-04-2024 End: 09-04-2024 Patient encounter procedure Janelle Marin MD Work Phone: OB/Gynecology Comment on above: Supervision of high risk in third trimester (HCC) (Primary Dx); Obesity affecting in third trimester, unspecified obesity type (HCC); 35 weeks gestation of (HCC) Start: 09-04-2024 End: 09-04-2024 ambulatory RUIZ SEGUNDORISON Facility:[facility] Start: 08-30-2024 End: 08-30-2024 Patient encounter procedure La Del Castillo APRN.CNKai Work Phone: OB/Gynecology Comment on above: Supervision of high risk in third trimester (HCC) (Primary Dx); Obesity affecting in third trimester, unspecified obesity type (HCC); 34 weeks gestation of (HCC) Start: 08-30-2024 End: 08-30-2024 ambulatory RUIZ L VEGA Facility:[facility] Start: 08-16-2024 End: 08-16-2024 Patient encounter procedure Lindsey Moreno APRN.BANDAGE WINDING MACHINE OPERATOR Work Phone: OB/Gynecology Comment on above: Supervision of high risk in third trimester (HCC) (Primary Dx); 32 weeks gestation of (HCC); Obesity affecting in third trimester, unspecified obesity type (HCC) Start: 08-16-2024 Encounter for dino vega adult medical examination without abnormal findings RUIZ VEGA [facility] Start: 08-16-2024 End: 08-16-2024 ambulatory RUIZ VEGA Facility:[facility] Start: 08-13-2024 End: 08-13-2024 Patient encounter procedure Ruiz Vega DO Work Phone: [facility] Comment on above: Well adult exam ([facility] bell Dx); 31 weeks gestation of (HCC); Class 2 obesity with body mass index (BMI) of 35.0 to 35.9 in adult, unspecified obesity type, unspecified whether serious comorbidity present; Gastroesophageal reflux disease without esophagitis Start: 08-13-2024 End: 08-13-2024 Patient encounter status Ruiz Vega DO Work Phone: [facility] Work Phone: Start: 08-13-2024 End: 08-13-2024 ambulatory RUIZ VEGA Facility:[facility] Start: 08-06-2024 End: 08-08-2024 Telephone encounter La Del Castillo APRN.CNM Work Phone: OB/Gynecology Comment on above: breast pump Start: 08-03-2024 End: 08-03-2024 Telephone encounter Nurse Urban Anthropologist Manisha Bloomfield Work Phone: Obstetrics/Gynecolog y Comment on above: PRAF Start: 08-01-2024 End: 10-01-2024 Follow-up encounter Castillo Mckeon MD Work Phone: OB/Gynecology Start: 08-01-2024 End: 08-01-2024 Patient encounter procedure Castillo Mckeon MD Work Phone: OB/Gynecology Comment on above: Supervision of high risk in third trimester (HCC) (Primary Dx); 30 weeks gestation of (HCC); Rash; Other obesity due to excess calories affecting , antepartum (HCC); Allergic rhinitis, unspecified seasonality, unspecified trigger Start: 08-01-2024 End: 08-01-2024 ambulatory CASTILLO MCKEON Facility:[facility] Start: 07-23-2024 End: 09-22-2024 Follow-up encounter Castillo Mckeon MD Work Phone: OB/Gynecology Start: 07-20-2024 End: 07-20-2024 Patient encounter procedure Lindsey Moreno TEXTILE ENGRAVER.BANDAGE WINDING MACHINE OPERATOR Work Phone: OB/Gynecology Comment on above: Supervision of high risk in third trimester (HCC) (Primary Dx); 28 weeks gestation of ([facility]); Obesity affecting in third trimester, unspecified obesity type (HCC); Vaginal discharge during in third trimester (HCC) Start: 07-20-2024 End: 07-20-2024 ambulatory SELF Facility:[facility] Start: 07-19-2024 End: 07-19-2024 Telephone encounter Castillo Mckeon MD Work Phone: OB/Gynecology Comment on above: Decreased FM Start: 07-09-2024 End: 07-09-2024 ambulatory La Del Castillo TEXTILE ENGRAVER.CNM Work Phone: OB/Gynecology Comment on above: Stuffy nose Start: 06-21-2024 End: 06-21-2024 Patient encounter procedure La Del Castillo TEXTILE ENGRAVER.CNM Work Phone: OB/Gynecology Comment on above: 24 weeks gestation o f (HCC) (Primary Dx); Obesity in (HCC); Supervision of normal first teen in second trimester (HCC); Decreased movements in second trimester, single or unspecified fetus (HCC) Start: 06-21-2024 End: 06-21-2024 ambulatory LA DEL CASTILLO Facility:[facility] Start: 06-19-2024 End: 06-19-2024 ambulatory KIA LUCERO Facility:[facility] Start: 06-19-2024 End: 06-19-2024 Patient encounter procedure Janelle Marin MD Work Phone: OB/Gynecology Comment on above: 24 weeks gestation o f (HCC) (Primary Dx); Obesity in (HCC); Screening for diabetes mellitus Start: 06-06-2024 End: 06-06-2024 ambulatory Kia Lucero MD Work Phone: OB/Gynecology Comment on above: Possible [place] hic ks Start: 06-06-2024 End: 06-06-2024 Patient encounter procedure La Del Castillo TEXTILE ENGRAVER.CNM Work Phone: OB/Gynecology Comment on above: Obesity in (HCC) (Primary Dx); Supervision of normal first teen in second trimester (HCC); 22 weeks gestation of (HCC); Cramping affecting , antepartum (HCC) Start: 05-29-2024 End: 07-29-2024 Follow-up encounter Delfina Watson APRN.CNM Work Phone: OB/Gynecology Start: 05-28-2024 End: 05-28-2024 Telephone encounter Nurse Urban Anthropologist Manisha Bloomfield Work Phone: Obstetrics/Gynecolog y Comment on above: PRAF Start: 05-25-2024 End: 05-25-2024 Office outpatient visit 15 minutes Kia Lucero MD Work Phone: OB/Gynecology Comment on above: Supervision of jas l first teen in second trimester (Primary Dx); Obesity in ; 20 weeks gestation of Start: 05-25-2024 End: 05-25-2024 [facility] Facility:[facility] Start: 05-25-2024 End: 05-25-2024 Patient encounter procedure Whi Tech 1 Urban Anthropologist [facility] Comment on above: Obesity in (Primary Dx); Supervision of normal first teen in first trimester; 13 weeks gestation of Start: 05-01-2024 End: 05-01-2024 Telephone encounter Janelle Marin MD Work Phone: OB/Gynecology Comment on above: Question (OB Questio n) Start: 04-28-2024 End: 04-28-2024 Emergency department patient visit Que Chavez Facility:[facility] Start: 04-27-2024 End: 04-27-2024 ambulatory [facility] Facility:[facility] Start: 04-27-2024 End: 04-27-2024 Patient encounter procedure Delfina Watson APRN.CNKai Work Phone: OB/Gynecology Comment on above: Supervision of jas vega first teen in second trimester (Primary Dx); Obesity in ; 16 weeks gestation of ; Dizziness Start: 04-13-2024 End: 04-13-2024 Telephone encounter La Del Castillo APRN.CNM Work Phone: OB/Gynecology Start: 04-10-2024 End: 04-10-2024 Refill Que Chavez MD Work Phone: [facility] [place] Comment on above: Refill Request Start: 04-03-2024 End: 04-03-2024 ambulatory NILDA LINSEY Facility:[facility] Start: 04-03-2024 End: 04-03-2024 Patient encounter procedure Delfina Watson APRN.CNM Work Phone: OB/Gynecology Comment on above: Supervision of jas vega first teen in first trimester (Primary Dx); 13 weeks gestation of ; Obesity in Encounter for jyoti ferrell screening for malformation using ultrasound (Primary Dx); 13 weeks gestation of Start: 03-28-2024 End: 03-28-2024 ambulatory DUNCAN MUNGUIA Facility:[facility] Start: 03-28-2024 End: 03-28-2024 Patient encounter procedure Duncan Munguia MD Work Phone: OB/Gynecology Comment on above: Vaginal irritation ( Primary Dx); Vaginal discharge; Encounter for care in first trimester of first ; 12 weeks gestation of Start: 03-27-2024 End: 03-27-2024 ambulatory Delfina Watson APRN.CNM Work Phone: OB/Gynecology Comment on above: Possible yeast infec tion Start: 03-22-2024 End: 03-22-2024 Telephone encounter La Del Castillo APRN.CNM Work Phone: OB/Gynecology Comment on above: Medication Question Start: 03-19-2024 End: 03-19-2024 ambulatory QUE CHAVEZ Facility:[facility] Start: 03-19-2024 End: 03-19-2024 Patient encounter procedure Josiane Goodwin APRN.BANDAGE WINDING MACHINE OPERATOR Work Phone: [facility] [place] Comment on above: Acute non-recurrent frontal sinusitis (Primary Dx) Start: 03-13-2024 End: 03-13-2024 Office outpatient new 30 minutes Roberto Bashirjose antonio NARCISA Work Phone: [place] [facility] Comment on above: Sore throat (Primary Dx) Start: 03-13-2024 End: 03-13-2024 ambulatory QUE CHAVEZ Facility:[facility] Start: 03-10-2024 End: 03-10-2024 ambulatory Vivian Jefferson RN NURSE SALVATIONIST Start: 03-10-2024 End: 03-10-2024 Patient encounter procedure Vivian Jefferson RN NURSE ON [facility] Comment on above: Clinical Update Start: 02-24-2024 End: 02-24-2024 MC Get Medical Advice Nilda Stiles APRN.BANDAGE WINDING MACHINE OPERATOR Work Phone: OB/Gynecology Comment on above: Lab Orders Start: 02-23-2024 End: 02-23-2024 Telephone encounter Pauline Au RN Obstetrics/Gynecolo g y Comment on above: PRAF Start: 02-21-2024 End: 02-21-2024 ambulatory QUE CHAVEZ Facility:[facility] Start: 02-21-2024 End: 02-21-2024 Patient encounter procedure Nilda Stiles APRN.BANDAGE WINDING MACHINE OPERATOR Work Phone: OB/Gynecology Comment on above: Encounter for prenat al care in first trimester of first (Primary Dx); 7 weeks gestation of ; Vaginal irritation; BMI 32.0-32.9,adult; Supervision of normal first teen in first trimester Start: 01-30-2024 End: 01-30-2024 ambulatory QUE CHAVEZ Facility:[facility] Start: 01-30-2024 End: 01-30-2024 Patient encounter procedure Nilda Stiles APRN.BANDAGE WINDING MACHINE OPERATOR Work Phone: OB/Gynecology Comment on above: Encounter for pregna ncy test, result positive (Primary Dx) Start: 12-15-2023 End: 12-15-2023 Telephone encounter Nilda Linsey FRITZ.BANDAGE WINDING MACHINE OPERATOR Work Phone: OB/Gynecology Comment on above: Results Start: 12-12-2023 End: 12-12-2023 ambulatory QUE CHAVEZ Facility:[facility] Start: 12-12-2023 End: 12-12-2023 Patient encounter procedure Nilda Bellcalf CATRINA.BANDAGE WINDING MACHINE OPERATOR Work Phone: OB/Gynecology Comment on above: Vaginal discharge (P rimary Dx); Vaginal irritation; Family history of thyroid disorder Start: 11-15-2023 End: 11-15-2023 ambulatory [facility] Facility:[facility] Start: 10-31-2023 End: 10-31-2023 ambulatory QUE CHAVEZ Facility:[facility] Start: 10-31-2023 End: 10-31-2023 Patient encounter procedure Sommer Hernandez PA-C Work Phone: [facility] [place] Comment on above: Encounter for [facility] ss examination in adult (Primary Dx); Mild intermittent asthma with (acute) exacerbation; Seborrhea; Adverse food reaction, initial encounter Start: 10-31-2023 End: 10-31-2023 Patient encounter status Sommer Hernandez PA-C Work Phone: [facility] Work Phone: Start: 10-28-2023 End: 10-28-2023 Refill Que Chavez MD Work Phone: [facility] [place] Comment on above: Refill Request Start: 10-18-2023 End: 10-18-2023 ambulatory [facility] Facility:[facility] Start: 09-05-2023 Refill Que Chavez MD Work Phone: [facility] [place] Comment on above: Refill Request Start: 08-25-2023 End: 08-25-2023 Patient encounter procedure Nilda Gordokami FRITZ.BANDAGE WINDING MACHINE OPERATOR Work Phone: OB/Gynecology Comment on above: Vaginal burning (Yudith bell Dx) Start: 08-21-2023 End: 08-21-2023 Patient encounter procedure Alecia Mendez APRN.BANDAGE WINDING MACHINE OPERATOR Work Phone: [place] [facility] Comment on above: Sore throat (Primary Dx); Viral illness Start: 08-02-2023 Telephone encounter Nilda [facility] edna TEXTILE ENGRAVER.BANDAGE WINDING MACHINE OPERATOR Work Phone: OB/Gynecology Comment on above: Results Start: 07-29-2023 End: 07-29-2023 Patient encounter procedure Nilda Stiles TEXTILE ENGRAVER.BANDAGE WINDING MACHINE OPERATOR Work Phone: OB/Gynecology Comment on above: Vaginal discharge (P rimary Dx) Start: 07-28-2023 Refill Rachael RETANA RN.BANDAGE WINDING MACHINE OPERATOR Work Phone: OB/Gynecology Comment on above: Refill Request Start: 07-12-2023 Telephone encounter Nilda [facility] edna TEXTILE ENGRAVER.BANDAGE WINDING MACHINE OPERATOR Work Phone: OB/Gynecology Comment on above: Results Start: 07-11-2023 End: 07-11-2023 Patient encounter procedure Nilda Stiles TEXTILE ENGRAVER.BANDAGE WINDING MACHINE OPERATOR Work Phone: OB/Gynecology Comment on above: Vaginal burning (Yudith bell Dx) Start: 06-28-2023 Refill Ramon perez MD Work Phone: [facility] [place] [facility] Comment on above: Refill Request Start: 06-24-2023 End: 06-24-2023 Office outpatient visit 25 minutes Que Chavez MD Work Phone: [facility] [place] Comment on above: Pes planus of both f eet (Primary Dx); Pain in archer, unspecified laterality; Acute upper respiratory infection; Mild intermittent asthma with (acute) exacerbation Start: 05-16-2023 End: 05-16-2023 Patient encounter procedure Kia Lucero MD Work Phone: OB/Gynecology Comment on above: Encounter for IUD re moval (Primary Dx); Displacement of intrauterine contraceptive device, initial encounter; Malpositioned intrauterine device (IUD), initial encounter Start: 05-13-2023 Telephone encounter Janelle page MD Work Phone: OB/Gynecology Comment on above: Orders Start: 05-13-2023 End: 05-13-2023 Subsequent hospital visit by physician [facility] 2 Work Phone: Radiology Comment on above: Pelvic pain in femal e [R10.2] Start: 05-03-2023 End: 05-03-2023 Patient encounter procedure Delfina Watson APRN.CNM Work Phone: OB/Gynecology Comment on above: Vaginal discharge (P rimary Dx); Vaginal itching; Pelvic pain in female Start: 04-28-2023 ambulatory Sommer Hernandez PA-C Work Phone: [facility] [place] Comment on above: Allergy testing Start: 11-11-2022 ambulatory Nilda Martínezf TEXTILE ENGRAVER.BANDAGE WINDING MACHINE OPERATOR Work Phone: [place] [facility] Start: 11-11-2022 Patient encounter procedure Re nee Linsey TEXTILE ENGRAVER.BANDAGE WINDING MACHINE OPERATOR Work Phone: OB/Gynecology Comment on above: Should I make an ck ointment Start: 10-05-2022 End: 10-05-2022 Patient encounter procedure Sommer Hernandez PA-C Work Phone: [facility] [place] Comment on above: Encounter for [facility] ss examination in adult (Primary Dx); Encounter for immunization Start: 10-05-2022 End: 10-05-2022 Patient encounter status Sommer Lainey PA-C Work Phone: [facility] Work Phone: Start: 07-15-2022 End: 07-15-2022 Patient encounter procedure Nilda Stiles TEXTILE ENGRAVER.BANDAGE WINDING MACHINE OPERATOR Work Phone: OB/Gynecology Comment on above: Missed period (Prima ry Dx); Encounter for other contraceptive management Start: 07-09-2022 ambulatory Nilda Linsey TEXTILE ENGRAVER.BANDAGE WINDING MACHINE OPERATOR Work Phone: OB/Gynecology Comment on above: control Start: 05-27-2022 End: 05-27-2022 Patient encounter procedure Ramon Patrick MD Work Phone: [facility] Comment on above: URI, acute (Primary Dx); Wheezing Start: 05-10-2022 E-mail encounter fro m caregiver Nilda Bellcalf TEXTILE ENGRAVER.BANDAGE WINDING MACHINE OPERATOR Work Phone: [place] [facility] Start: 05-10-2022 Patient encounter procedure Re nee Gordo TEXTILE ENGRAVER.BANDAGE WINDING MACHINE OPERATOR Work Phone: OB/Gynecology Comment on above: appointment 05/17/22 Start: 05-07-2022 End: 05-07-2022 Patient encounter procedure Sommer Hernandez PA-C Work Phone: [facility] [place] Comment on above: Dysfunction of both eustachian tubes (Primary Dx); Seasonal allergies Start: 04-30-2022 ambulatory Nilda Gordo TEXTILE ENGRAVER.BANDAGE WINDING MACHINE OPERATOR Work Phone: OB/Gynecology Comment on above: Bacterial Vaginosis Start: 04-13-2022 Telephone encounter [facility] edna TEXTILE ENGRAVER.BANDAGE WINDING MACHINE OPERATOR Work Phone: OB/Gynecology Comment on above: Results Start: 04-12-2022 End: 04-12-2022 Patient encounter procedure Nilda Gordo TEXTILE ENGRAVER.BANDAGE WINDING MACHINE OPERATOR Work Phone: OB/Gynecology Comment on above: Vaginal irritation ( Primary Dx) Start: 04-09-2022 Telephone encounter Nilda [facility] mcc TEXTILE ENGRAVER.BANDAGE WINDING MACHINE OPERATOR Work Phone: OB/Gynecology Comment on above: Appointment (1st att empt no answer, no voicemail. Called to R/S w/ R.Linsey for 04/12.) Start: 03-16-2022 End: 03-16-2022 Patient encounter procedure Nilda Linsey TEXTILE ENGRAVER.BANDAGE WINDING MACHINE OPERATOR Work Phone: OB/Gynecology Comment on above: Pelvic pain in femal e (Primary Dx); Encounter for surveillance of contraceptive pills Start: 01-18-2022 End: 01-18-2022 Patient encounter procedure Alecia Mendez TEXTILE ENGRAVER.BANDAGE WINDING MACHINE OPERATOR [facility] Comment on above: Acute cough (Primary Dx); Fever, unspecified fever cause; Sore throat; URI with cough and congestion Start: 12-28-2021 End: 12-28-2021 Patient encounter procedure Nurse Richard Brooks [facility] [place] Comment on above: Encounter for immuni zation (Primary Dx) Start: 10-28-2021 End: 10-28-2021 Patient encounter procedure Sommer Hernandez PA-C Work Phone: [facility] [place] Comment on above: Seasonal allergies ( Primary Dx) Start: 10-05-2021 End: 10-05-2021 Patient encounter procedure Alecia Mendez BANDAGE WINDING MACHINE OPERATOR Work Phone: [facility] [place] [facility] Comment on above: Upper respiratory sy mptom (Primary Dx); Suspected COVID-19 virus infection Start: 09-18-2021 End: 09-18-2021 ambulatory Erinn Woody MD Work Phone: OB/Gynecology Comment on above: JOINER APPRENTICE 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 Start: 09-18-2021 End: 09-18-2021 Patient encounter procedure Erinn Woody MD Work Phone: [place] [facility] Start: 07-13-2021 End: 07-13-2021 Patient encounter procedure Que Chavez MD Work Phone: [facility] [place] Comment on above: Encounter for WCC (w ell child check) with abnormal findings (Primary Dx); Gastroesophageal reflux disease, unspecified whether esophagitis present; Allergic rhinitis, unspecified seasonality, unspecified trigger Start: 07-13-2021 End: 07-13-2021 Patient encounter status Que Chavez MD Work Phone: [facility] [place] Start: 06-12-2021 End: 06-12-2021 Patient encounter procedure Que Chavez MD Work Phone: [facility] [place] Comment on above: Gastroesophageal ref lux disease, unspecified whether esophagitis present (Primary Dx); Encounter for immunization Procedures Date Procedure Procedure Detail Performing Clinician Start: 10-05-2024 Urnls dip stick/tabl et rgnt non-auto w/o micrscp Delfina Watson APRN.CNM Work Phone: Start: 09-25-2024 Urnls dip stick/tabl et rgnt non-auto w/o micrscp Janelle Marin MD Work Phone: Start: 09-18-2024 Urnls dip stick/tabl et rgnt non-auto w/o micrscp Alo Thompson MD Work Phone: Start: 09-12-2024 Urnls dip stick/tabl et rgnt non-auto w/o micrscp Castillo Mckeon MD Work Phone: Start: 09-04-2024 CT angiography of ch est with contrast Dr. Ruiz Vega DO Work Phone: Start: 09-04-[address] Ruiz Vega DO Work Phone: Start: 09-04-2024 Urnls dip stick/tabl et rgnt non-auto w/o micrscp Janelle Marin MD Work Phone: Start: 08-30-2024 Urnls dip stick/tabl et rgnt non-auto w/o micrscp La Del Castillo TEXTILE ENGRAVER.CNM Work Phone: Start: 06-06-2024 Urnls dip stick/tabl et rgnt auto w/o microscopy La Del Castillo TEXTILE ENGRAVER.CNM Work Phone: Start: 05-25-2024 Us preg uterus after 1st trimest 1/ gestation Delfina Watson TEXTILE ENGRAVER.CNM Work Phone: Start: 04-03-2024 Us nuchal translucency 1st gestation Nilda Gordo TEXTILE ENGRAVER.BANDAGE WINDING MACHINE OPERATOR Work Phone: Start: 03-13-2024 STREP A MOLECULAR (POC) Delfina Nicholas TEXTILE ENGRAVER.BANDAGE WINDING MACHINE OPERATOR Work Phone: Start: 02-24-2024 Antibody screen NILDA Quinn ETCALF Comment on above: Order Comment: Speci men Type: SWAB Ordering Facility: [facility] Address: [address] [place] [address] Performed By: #### C VTV, BVAMP #### [facility] CLIA [id number] [address] [place] [address] [place] [address] [place] Start: 02-21-2024 Us uterus l imited 1/> fetuses Nilda Gordo TEXTILE ENGRAVER.BANDAGE WINDING MACHINE OPERATOR Work Phone: Start: 01-30-2024 UA DIP,URINE HCG (POC) Nilda Gordo TEXTILE ENGRAVER.BANDAGE WINDING MACHINE OPERATOR Work Phone: Start: 10-31-2023 Adult depression scr eening assessment Nilda Gordo TEXTILE ENGRAVER.BANDAGE WINDING MACHINE OPERATOR Work Phone: Start: 08-21-2023 STREP A MOLECULAR (POC) [facility] Provider Start: 07-11-2023 BACTERIAL VAGINOSIS NAAT Nilda Bellcalf TEXTILE ENGRAVER.BANDAGE WINDING MACHINE OPERATOR Work Phone: Start: 07-11-2023 Iadna trichomonas vaginalis amplified probe tech Nilda Linsey TEXTILE ENGRAVER.BANDAGE WINDING MACHINE OPERATOR Work Phone: Start: 05-13-2023 Us transvaginal Delfina Watson TEXTILE ENGRAVER.CNM Work Phone: Start: 05-03-2023 BACTERIAL VAGINOSIS NAAT Delfina Watson TEXTILE ENGRAVER.CNM Work Phone: Start: 05-03-2023 Iadna chlamydia trachomatis amplified probe tq Delfina Watson TEXTILE ENGRAVER.CNM Work Phone: Start: 07-15-2022 Urine test visual color cmprsn meths Nilda Bellcalf TEXTILE ENGRAVER.BANDAGE WINDING MACHINE OPERATOR Work Phone: Start: 12-28-2021 [facility] COVI D-19 PRIMARY SERIES VACCINE, AGE 12+ YR Sommer Hernandez PA-C Work Phone: Start: 07-13-2021 Adult depression scr eening assessment Que Chavez MD Work Phone: Start: 05-05-2017 Adult depression scr eening assessment Que Chavez MD Work Phone: Plan of Treatment Date Care Activity Detail Author Start: 06-13-2031 Urine microalbumin profile [facility] Start: 08-13-2025 Annual PCP Team Electrical Development Engineer lluvia Disease Visit Annual PCP Team Chronic Disease Visit [facility] Start: 03-19-2025 Annual PCP Team Electrical Development Engineer lluvia Disease Visit Annual PCP Team Chronic Disease Visit [facility] Start: 02-20-2025 GC (Gonorrhea) Scree alexsandra (18-24) GC (Gonorrhea) Screening (18-24) [facility] Start: 02-20-2025 Screening for Chlamy morgan trachomatis Chlamydia Screening (18-) [facility] Start: 12-14-2024 End: 12-14-2024 Patient encounter procedure 12/14/2024 1:40 PM EDT Office Visit [facility] [place] [address] [place] [address] Ruiz Vega DO [address] [place] [address] Follow up [facility] [place] Comment on above: Follow up Start: 11-05-2024 Influenza vaccination Influenza Vacc ine (#1) [facility] Start: 10-30-2024 Annual PCP Team Electrical Development Engineer lluvia Disease Visit Annual PCP Team Chronic Disease Visit [facility] Start: 10-30-2024 Anxiety Screening Anxiety Screening [facility] Start: 10-30-2024 Asthma Control Test Asthma Control T est [facility] Start: 10-30-2024 Depression Screening Depression Scre ening [facility] Start: 10-15-2024 ambulatory Ambulatory Facility:[facility] Start: 10-09-2024 End: 10-09-2024 Patient encounter procedure 10/09/2024 1:40 PM EDT Routine Office Visit OB/Gynecology [address] [place] [address] Castillo Mckeon MD [address] [place] [address] OB OB/Gynecology Comment on above: OB Start: 10-05-2024 End: 10-05-2024 Patient encounter procedure 10/05/2024 4:30 PM EDT Routine Office Visit OB/Gynecology [address] [place] [address] Delfina Watson APRN.CN [address] [place] [address] OB OB/Gynecology Comment on above: OB Start: 10-02-2024 End: 10-02-2024 Patient encounter procedure 10/02/2024 1:30 PM EDT Routine Office Visit OB/Gynecology [address] [place] [address] Kia Lucero MD [address] [place] [address] OB OB/Gynecology Comment on above: OB Start: 09-25-2024 End: 09-25-2024 Patient encounter procedure 09/25/2024 2:20 PM EDT Routine Office Visit OB/Gynecology [address] [place] [address] Janelle Marin MD [address] [place] [address] OB OB/Gynecology Comment on above: OB Start: 09-18-2024 End: 09-18-2024 Patient encounter procedure 09/18/2024 1:30 PM EDT Routine Office Visit OB/Gynecology [address] [place] [address] Alo Thompson MD [address] [place] [address] OB OB/Gynecology Comment on above: OB Start: 09-12-2024 End: 09-12-2024 Patient encounter procedure 09/12/2024 10:10 AM EDT Routine Office Visit OB/Gynecology [address] [place] [address] Castillo Mckeon MD [address] [place] [address] OB OB/Gynecology Comment on above: OB Start: 09-04-2024 [facility] Start: 09-04-2024 [facility] Start: 08-30-2024 End: 08-30-2024 Patient encounter procedure 08/30/2024 3:15 PM EDT Routine Office Visit OB/Gynecology [address] [place] [address] La Del Castillo APRN.CNM [address] [place] [address] Ob OB/Gynecology Comment on above: Ob Start: 08-16-2024 End: 08-16-2024 Patient encounter procedure 08/16/2024 2:30 PM EDT Routine Office Visit OB/Gynecology [address] [place] [address] Lindsey Moreno APRN.BANDAGE WINDING MACHINE OPERATOR [address] [place] [address] OB OB/Gynecology Comment on above: OB Start: 08-13-2024 End: 08-13-2024 Patient encounter procedure 08/13/2024 9:20 AM EDT Office Visit Family [facility] [address] [place] [address] Ruiz Vega DO [address] [place] [address] Transfer from peds/[facility] Comment on above: Transfer from peds/E [facility] Start: 08-03-2024 End: 08-03-2024 Patient encounter procedure 08/03/2024 2:30 PM EDT Routine Office Visit OB/Gynecology [address] [place] [address] Erinn Schwartz MD [address] [place] [address] OB OB/Gynecology Comment on above: OB Start: 08-02-2024 End: 08-02-2024 Patient encounter procedure 08/02/2024 10:30 AM EDT Routine Office Visit OB/Gynecology [address] [place] [address] La Del Castillo APRN.CNM [address] [place] [address] OB OB/Gynecology Comment on above: OB Start: 08-01-2024 End: 10-31-2024 BILE ACIDS, TOTAL [facility] Work Phone: Comment on above: Expected: 08/01/2024 , Expires: 10/31/2024 Start: 07-20-2024 End: 07-20-2024 Patient encounter procedure 07/20/2024 8:45 AM EDT Routine Office Visit OB/Gynecology [address] [place] [address] Lindsey Moreno APRN.BANDAGE WINDING MACHINE OPERATOR [address] [place] [address] OB Routine OB/Gynecology Comment on above: OB Routine Start: 07-20-2024 End: 07-20-2024 ambulatory 07/20/2024 8:30 AM EDT Results Only [place] [facility] Laboratory [address] [place] [address] Glucose Test and LABs [facility] Laboratory Comment on above: Glucose Test and LAB s Start: 06-23-2024 Annual PCP Team Electrical Development Engineer lulvia Disease Visit Annual PCP Team Chronic Disease Visit [facility] Start: 06-19-2024 End: 06-19-2024 Patient encounter procedure 06/19/2024 2:40 PM EDT Routine Office Visit OB/Gynecology [address] [place] [address] Kia Lucero MD [address] [place] [address] OB OB/Gynecology Comment on above: OB Start: 06-19-2024 End: 09-18-2024 ANEMIA REFLEX PANEL ANEMIA REFLEX PANEL Lab Routine 24 weeks gestation of (HCC) Expected: 06/19/2024, Expires: 09/18/2024 [facility] Comment on above: Expected: 06/19/2024 , Expires: 09/18/2024 Start: 06-19-2024 End: 06-19-2025 GESTATIONAL GLUCOSE SCREEN, 1-HOUR, 50 GRAM, NON-FASTING GESTATIONAL GLUCOSE SCREEN, 1-HOUR, 50 GRAM, NON-FASTING Lab Routine 24 weeks gestation of ([facility]) Screening for diabetes mellitus Expected: 06/19/2024, Expires: 06/19/2025 [facility] Work Phone: Comment on above: Expected: 06/19/2024 , Expires: 06/19/2025 Start: 06-19-2024 End: 06-19-2025 SYPHILIS TREPONEMAL W/REFLEX SYPHILIS TREPONEMAL W/REFLEX Lab Routine 24 weeks gestation of ([facility]) Expected: 06/19/2024, Expires: 06/19/2025 [facility] Comment on above: Expected: 06/19/2024 , Expires: 06/19/2025 Start: 05-25-2024 End: 05-25-2024 Patient encounter procedure Maternal Medicine Comment on above: Anatomy OB Start: 05-03-2024 GC (Gonorrhea) Scree alexsandra (18-24) GC (Gonorrhea) Screening (18-24) [facility] Start: 05-03-2024 Screening for Chlamy morgan trachomatis Chlamydia Screening (18) [facility] Start: 04-27-2024 End: 04-27-2024 Patient encounter procedure 04/27/2024 1:15 PM EST Routine Office Visit OB/Gynecology [address] [place], [place] [id number] Delfina Watson APRN.CN [address] [place] [place] [address] OB OB/Gynecology Comment on above: OB Start: 04-03-2024 End: 04-03-2024 Patient encounter procedure Maternal Medicine Comment on above: Nuchal Nuchal/ OB Start: 04-03-2024 End: 04-03-2025 OBSTETRIC ULTRASOUND WHI OBSTETRIC ULTRASOUND WHI Anc Imaging Routine Supervision of normal first teen in first trimester 13 weeks gestation of Obesity in Expected: 04/03/2024, Expires: 04/03/2025 [facility] Work Phone: Comment on above: Expected: 04/03/2024 , Expires: 04/03/2025 Start: 03-28-2024 End: 03-28-2024 Patient encounter procedure 03/28/2024 9:10 AM EST Routine Office Visit OB/Gynecology [address] [place] [address] Duncan Munguia MD [address] [place], [place] [address] vaginal infection OB/Gynecology Comment on above: vaginal infection Start: 02-21-2024 End: 05-22-2024 ANEMIA REFLEX PANEL ANEMIA REFLEX PANEL Lab Routine Encounter for care in first trimester of first 7 weeks gestation of Expected: 02/21/2024, Expires: 05/22/2024 [facility] Work Phone: Comment on above: Expected: 02/21/2024 , Expires: 05/22/2024 Start: 02-21-2024 End: 05-22-2024 Chromosome 21 trisomy [Presence] in Blood or Tissue by Cytogenetics [id number] PLUS Lab Routine 7 weeks gestation of Expected: 02/21/2024, Expires: 05/22/2024 [facility] Comment on above: Expected: 02/21/2024 , Expires: 05/22/2024 Start: 02-21-2024 End: 05-22-2024 Hemoglobin A1c in Blood HEMOGLOBIN A1C Lab Routine Encounter for care in first trimester of first 7 weeks gestation of Expected: 02/21/2024, Expires: 05/22/2024 [facility] Comment on above: Expected: 02/21/2024 , Expires: 05/22/2024 Start: 02-21-2024 End: 05-22-2024 Hepatitis B virus surface Ag [Presence] in Serum HEPATITIS B SURFACE ANTIGEN Lab Routine Encounter for care in first trimester of first 7 weeks gestation of Expected: 02/21/2024, Expires: 05/22/2024 [facility] Comment on above: Expected: 02/21/2024 , Expires: 05/22/2024 Start: 02-21-2024 End: 05-22-2024 Hepatitis C virus Ab [Presence] in Serum HEPATITIS C ANTIBODY IA WITH CONFIRMATION Lab Routine Encounter for care in first trimester of first 7 weeks gestation of Expected: 02/21/2024, Expires: 05/22/2024 [facility] Comment on above: Expected: 02/21/2024 , Expires: 05/22/2024 Start: 02-21-2024 End: 05-22-2024 HIV 1+2 Ab [Presence] in Serum or Plasma by Immunoassay HIV 1/2 COMBO WITH REFLEX TO DIFFERENTIATION Lab Routine Encounter for care in first trimester of first 7 weeks gestation of Expected: 02/21/2024, Expires: 05/22/2024 [facility] Comment on above: Expected: 02/21/2024 , Expires: 05/22/2024 Start: 02-21-2024 End: 02-20-2025 NUCHAL TRANSLUCENCY WHI NUCHAL TRANSLUCENCY WHI Anc Imaging Routine Encounter for care in first trimester of first 7 weeks gestation of Expected: 02/21/2024, Expires: 02/20/2025 [facility] Comment on above: Expected: 02/21/2024 , Expires: 02/20/2025 Start: 02-21-2024 End: 05-22-2024 RUBELLA IGG ANTIBODY RUBELLA IGG ANTIBODY Lab Routine Encounter for care in first trimester of first 7 weeks gestation of Expected: 02/21/2024, Expires: 05/22/2024 [facility] Comment on above: Expected: 02/21/2024 , Expires: 05/22/2024 Start: 02-21-2024 End: 05-22-2024 SYPHILIS TREPONEMAL W/REFLEX SYPHILIS TREPONEMAL W/REFLEX Lab Routine Encounter for care in first trimester of first 7 weeks gestation of Expected: 02/21/2024, Expires: 05/22/2024 [facility] Comment on above: Expected: 02/21/2024 , Expires: 05/22/2024 Start: 02-21-2024 End: 05-22-2024 TYPE + SCREEN TYPE + SCREEN Blood Bank Routine Encounter for care in first trimester of first 7 weeks gestation of Expected: 02/21/2024, Expires: 05/22/2024 [facility] Comment on above: Expected: 02/21/2024 , Expires: 05/22/2024 Start: 02-21-2024 End: 02-21-2024 Patient encounter procedure 02/21/2024 8:15 AM EST Initial Office Visit OB/Gynecology [address] [place] [address] Nilda Stiles APRN.BANDAGE WINDING MACHINE OPERATOR [address] [place] [address] New OB OB/Gynecology Comment on above: New OB Start: 12-12-2023 End: 03-12-2024 THYROID PEROXIDASE ANTIBODY [facility] Comment on above: Expected: 12/12/2023 , Expires: 03/12/2024 Start: 12-12-2023 End: 03-12-2024 Thyrotropin [Units/volume] in Serum or Plasma [facility] Work Phone: Comment on above: Expected: 12/12/2023 , Expires: 03/12/2024 Start: 12-12-2023 End: 03-12-2024 Thyroxine (T4) free [Mass/volume] in Serum or Plasma [facility] Comment on above: Expected: 12/12/2023 , Expires: 03/12/2024 Start: 12-12-2023 End: 03-12-2024 Triiodothyronine (T3) Free [Mass/volume] in Serum or Plasma [facility] Comment on above: Expected: 12/12/2023 , Expires: 03/12/2024 Start: 12-07-2023 End: 12-07-2023 Patient encounter procedure 12/07/2023 8:30 AM EDT Office Visit Allergy [address] [id number] Tio Wilcox MD [address] [place] [address] Adverse food reaction, initial encounter [T78.1XXA] Allergy Comment on above: Adverse food reactio n, initial encounter [T78.1XXA] Start: 11-11-2023 End: 11-11-2023 Patient encounter procedure 11/11/2023 8:00 AM EDT Office Visit OB/Gynecology [address] [place] [address] Nilda Stiles APRN.BANDAGE WINDING MACHINE OPERATOR [address] [place] [address] yeast infection resistant OB/Gynecology Comment on above: yeast infection resi stan Start: 11-06-2023 Covid-19 Vaccine ( season) Covid-19 Vaccine () [facility] Start: 11-06-[address] [facility] Start: 10-31-2023 End: 10-31-2023 Patient encounter procedure 10/31/2023 11:00 AM EDT Office Visit [facility] [place] [address] [place] [address] Sommer Hernandez PA-C [address] [place] [address] [facility] [place] Comment on above: [facility] Start: 03-16-2023 CHLAMYDIA SCREENING (18-24) CHLAMYDIA SCREENING (18-24) [facility] Start: 03-16-2023 CHLAMYDIA SCREENING (<18) CHLA MYDIA SCREENING (<18) [facility] Start: 03-16-2023 GC (GONORRHEA) SCREE ALEXSANDRA (18-24) GC (GONORRHEA) SCREENING (18-24) [facility] Start: 03-16-2023 GC (GONORRHEA) SCREE ALEXSANDRA (<18) GC (GONORRHEA) SCREENING (<18) [facility] Start: 03-16-2023 Screening for Chlamy morgan trachomatis Chlamydia Screening (18-24) [facility] Start: 03-07-2023 Behavioral Health Screening Behavioral Health Screening [facility] Start: 03-07-2023 Depression Assessment Depression Ass essment [facility] Start: 11-05-2022 Covid-19 Vaccine () Covid-19 Vaccine () [facility] Start: 11-05-[address] [facility] Start: 2022 Anxiety Screening Anxiety Screening [facility] Start: 2022 Depression Screening Depression Scre ening [facility] Start: 2022 HEPATITIS C SCREENING HEPATITIS C [facility] Start: 2022 Hepatitis C screening Hepatitis C [facility] Start: 2022 HIV SCREENING HIV SCREENING [facility] Start: 2022 HIV screening HIV Screening [facility] Start: 2022 Spirometry Spirometry [facility] Start: 07-13-2022 Adult depression screening assessment DEPRESSION SCREENING [facility] Start: 03-07-2022 DEPRESSION ASSESSMENT DEPRESSION ASS ESSMENT [facility] Start: 02-22-2022 COVID-19 VACCINE (3 - Booster for Pfizer series) COVID-19 VACCINE (3 - Booster for Pfizer series) [facility] Start: 02-22-2022 COVID-19 VACCINE (3 - Pfizer series) COVID-19 VACCINE (3 - Pfizer series) [facility] Start: 01-18-2022 End: 02-01-2022 COVID, FLU A/B + RSV, ROUTINE [facility] Work Phone: Comment on above: Expected: 01/18/2022 , Expires: 02/01/2022 Start: 11-05-[address] [facility] Start: 10-05-2021 End: 10-19-2021 COVID, FLU A/B + RSV, ROUTINE COVID, FLU A/B + RSV, ROUTINE Microbiology Routine Upper respiratory symptom Suspected COVID-19 virus infection Expected: 10/05/2021, Expires: 10/19/2021 [facility] Work Phone: Comment on above: Expected: 10/05/2021 , Expires: 10/19/2021 Start: 04-27-2021 Asthma Action Plan Asthma Action Yessenia n [facility] Start: 2020 Meningococcal B Vacc ine (1 of 2 - Standard) Meningococcal B Vaccine (1 of 2 - Standard) [facility] Start: 2020 Meningococcal B Vacc ine: Consider Based On Risk (1 of 2 - Patient Seeks Protection) Meningococcal B Vaccine: Consider Based On Risk (1 of 2 - Patient Seeks Protection) [facility] Start: 2020 MENINGOCOCCAL B: Con brine supervisor based on risk (1 of 2 - Patient Seeks Protection) MENINGOCOCCAL B: Consider based on risk (1 of 2 - Patient Seeks Protection) [facility] Start: 04-27-2020 Asthma Control Test Asthma Control T est [facility] Start: 10-26-2019 HPV VACCINE (2 - 2-d ose series) HPV VACCINE (2 - 2-dose series) [facility] Start: 08-13-2019 CHLAMYDIA SCREENING (<18) CHLA MYDIA SCREENING (<18) [facility] Start: 08-13-2019 GC (GONORRHEA) SCREE ALEXSANDRA (<18) GC (GONORRHEA) SCREENING (<18) [facility] Start: 2018 PEDS TO ADULT TRANSI TION ANNUAL ASSESSMENT PEDS TO ADULT TRANSITION ANNUAL ASSESSMENT [facility] Start: 05-05-2018 Adult depression screening assessment DEPRESSION SCREENING [facility] Start: 2016 PEDS TO ADULT TRANSI TION INITIAL DISCUSSION PEDS TO ADULT TRANSITION INITIAL DISCUSSION [facility] Start: 2014 MENINGOCOCCAL B: Con brine supervisor based on risk (1 of 2 - Risk Bexsero 2-dose series) MENINGOCOCCAL B: Consider based on risk (1 of 2 - Risk Bexsero 2-dose series) [facility] Start: 2009 COVID-19 VACCINE (#1) COVID-19 VACCI NE (#1) [facility] Start: 2009 COVID-19 VACCINE (1) COVID-19 VACCIN E (1) [facility] Start: 02-11-2005 COVID-19 VACCINE (#1) COVID-19 VACCI NE (#1) [facility] Bacteria identified in Urine by Culture URINE CULTURE Microbiology Routine Encounter for care in first trimester of first 7 weeks gestation of 02/21/2024 8:57 AM [facility] BACTERIAL VAGINOSIS AMPLIFICATION BACTERIAL VAGINOSIS AMPLIFICATION Lab Routine Pelvic pain in female 03/16/2022 10:38 AM EST [facility] Work Phone: BACTERIAL VAGINOSIS AMPLIFICATION BACTERIAL VAGINOSIS AMPLIFICATION Lab Routine Vaginal irritation 04/12/2022 8:51 AM EST [facility] Work Phone: BACTERIAL VAGINOSIS NAAT BACTERI AL VAGINOSIS NAAT Lab Routine Vaginal discharge 07/29/2023 8:31 AM EDT [facility] BACTERIAL VAGINOSIS NAAT BACTERI AL VAGINOSIS NAAT Lab Routine Vaginal discharge Vaginal irritation 12/12/2023 4:17 PM EDT [facility] BACTERIAL VAGINOSIS NAAT BACTERI AL VAGINOSIS NAAT Lab Routine Vaginal irritation 02/21/2024 8:57 AM EST [facility] BACTERIAL VAGINOSIS NAAT BACTERI AL VAGINOSIS NAAT Lab Routine Vaginal irritation Vaginal discharge 03/28/2024 10:13 AM [facility] Work Phone: BACTERIAL VAGINOSIS NAAT BACTERI AL VAGINOSIS NAAT Lab Routine Vaginal discharge during in third trimester ([facility]) 07/20/2024 8:54 AM [facility] Work Phone: FRANCO / TRICHOMONA S AMPLIFICATION FRANCO / TRICHOMONAS AMPLIFICATION Microbiology Routine Pelvic pain in female 03/16/2022 10:38 AM [facility] Work Phone: FRANCO / TRICHOMONA S AMPLIFICATION FRANCO / TRICHOMONAS AMPLIFICATION Microbiology Routine Vaginal irritation 04/12/2022 8:51 AM [facility] Work Phone: FRANCO/TRICHOMONAS NAAT FRANCO /TRICHOMONAS NAAT Lab Routine Vaginal discharge 07/29/2023 8:31 AM [facility] Work Phone: FRANCO/TRICHOMONAS NAAT FRANCO /TRICHOMONAS NAAT Lab Routine Vaginal discharge Vaginal irritation 12/12/2023 4:17 PM [facility] FRANCO/TRICHOMONAS NAAT FRANCO /TRICHOMONAS NAAT Lab Routine Vaginal irritation 02/21/2024 8:57 AM [facility] FRANCO/TRICHOMONAS NAAT FRANCO /TRICHOMONAS NAAT Lab Routine Vaginal irritation Vaginal discharge 03/28/2024 10:13 AM [facility] FRANCO/TRICHOMONAS NAAT FRANCO /TRICHOMONAS NAAT Lab Routine Vaginal discharge during in third trimester ([facility]) 07/20/2024 8:54 AM [facility] Chlamydia trachomatis+Neisseria gonorrhoeae DNA [Presence] in Unspecified specimen by MEG with probe detection GC/CHLAMYDIA DNA DET Lab Routine Pelvic pain in female 03/16/2022 10:38 AM [facility] Work Phone: Chlamydia trachomatis+Neisseria gonorrhoeae DNA [Presence] in Unspecified specimen by MEG with probe detection GONORRHEA/CHLAMYDIA NAAT Lab Routine Encounter for care in first trimester of first 7 weeks gestation of 02/21/2024 8:57 AM [facility] Patient Education ED Chest Pain, Uncertain Cause [facility] Work Phone: Removal intrauterine device iud REMOVE INTRAUTERINE DEVICE Procedures Routine Malpositioned intrauterine device (IUD), initial encounter Encounter for IUD removal Ordered: 05/13/2023 [facility] Work Phone: Comment on above: Ordered: 05/13/2023 ROUTINE FLU A/B + RSV ROUTINE FL U A/B + RSV Lab Routine Upper respiratory symptom Suspected COVID-19 virus infection Ordered: 10/05/2021 [facility] Work Phone: Comment on above: Ordered: 10/05/2021 ROUTINE FLU A/B + RSV ROUTINE FL U A/B + RSV Lab Routine Acute cough Fever, unspecified fever cause Sore throat URI with cough and congestion 01/18/2022 10:38 AM [facility] Work Phone: ROUTINE, GR OUP B STREPTOCOCCUS BY PCR ROUTINE, GROUP B STREPTOCOCCUS BY PCR Microbiology Routine 36 weeks gestation of (HCC) 09/12/2024 10:54 AM EDT [facility] Work Phone: SARS-CoV-2 (COVID-19 ) RNA [Presence] in Respiratory specimen by MEG with probe detection 2019 CORONAVIRUS Microbiology Routine Upper respiratory symptom Suspected COVID-19 virus infection Ordered: 10/05/2021 [facility] Work Phone: Comment on above: Ordered: 10/05/2021 SARS-CoV-2 (COVID-19 ) RNA [Presence] in Respiratory specimen by MEG with probe detection 2019 CORONAVIRUS Microbiology Routine Acute cough Fever, unspecified fever cause Sore throat URI with cough and congestion 01/18/2022 10:38 AM [facility] Work Phone: SARS-CoV-2 (COVID-19 ) RNA [Presence] in Respiratory specimen by MEG with probe detection 2019 CORONAVIRUS Microbiology Routine URI, acute Wheezing Ordered: 05/27/2022 [facility] Work Phone: Comment on above: Ordered: 05/27/2022 UROGENITAL UREAPLASM A AND MYCOPLASMA SPECIES BY PCR, FOR GENITAL, RECTAL, URINE SAMPLES UROGENITAL UREAPLASMA AND MYCOPLASMA SPECIES BY PCR, FOR GENITAL, RECTAL, URINE SAMPLES Lab Routine Vaginal discharge Vaginal irritation 12/12/2023 4:17 PM EDT [facility] Immunizations Immunization Date Immunization Notes Care Provider [facility] 12-14-2023 influenza, seasonal, injectable, preservative free Dr. Ruiz Vega DO Work Phone: [facility] 12-14-2023 influenza virus vacc ine, unspecified formulation Janelle Marin MD Work Phone: [facility] 10-05-2022 Human Papillomavirus 9-valent vaccine Sommer Hernandez PA-C Work Phone: [facility] 12-28-2021 Covid (Pfizer) Dr. Ruiz Vega DO Work Phone: [facility] 12-28-2021 COVID-19 original vaccine, age 12+ yr, monovalent (PFIZER-BIONTECH - MARTINEZ TOP) Nurse [facility] 12-03-2021 Covid (Pfizer) Dr. Ruiz Vega DO Work Phone: [facility] 12-03-2021 COVID-19 original vaccine, age 12+ yr, monovalent (PFIZER-BIONTECH - MARTINEZ TOP) Nurse [facility] 06-12-2021 meningococcal polysaccharide (groups A, C, Y and W-135) diphtheria toxoid conjugate vaccine (MCV4P) Que Chavez MD Work Phone: [facility] Work Phone: 06-12-2021 tetanus toxoid, redu monique diphtheria toxoid, and acellular pertussis vaccine, adsorbed Que Chavez MD Work Phone: [facility] Work Phone: 06-12-2021 Meningococcal, MCV4, unspecified conjugate formulation(groups A, C, Y and W-135) Que Chavez MD Work Phone: [facility] Work Phone: 04-27-2019 Human Papillomavirus 9-valent vaccine Que Chavez MD Work Phone: [facility] 04-27-2019 influenza, injectabl e, quadrivalent, preservative free Que Chavez MD Work Phone: [facility] 04-27-2019 influenza virus vacc ine, unspecified formulation Sommer Hernandez PA-C Work Phone: [facility] 01-07-2010 hepatitis A vaccine, pediatric/adolescent dosage, 2 dose schedule Que Chavez MD Work Phone: [facility] Work Phone: 01-07-2010 influenza, seasonal, injectable Que Chavez MD Work Phone: [facility] 11-03-2009 poliovirus vaccine, inactivated Que Chavez MD Work Phone: [facility] 10-27-2009 diphtheria, tetanus toxoids and acellular pertussis vaccine Que Chavez MD Work Phone: [facility] 10-27-2009 measles, mumps, rube lla, and varicella virus vaccine Que Chavez MD Work Phone: [facility] 10-27-2009 poliovirus vaccine, unspecified formulation Que Chavez MD Work Phone: [facility] Work Phone: 12-03-2008 Diphtheria, tetanus toxoids and acellular pertussis vaccine, and poliovirus vaccine, inactivated Que Chavez MD Work Phone: [facility] Work Phone: 12-03-2008 influenza, seasonal, injectable Que Chavez MD Work Phone: [facility] 12-03-2008 measles, mumps and rubella virus vaccine Que Chavez MD Work Phone: [facility] Work Phone: 10-03-2006 diphtheria, tetanus toxoids and acellular pertussis vaccine Que Chavez MD Work Phone: [facility] Work Phone: 10-03-2006 haemophilus influenz ae type b vaccine, HbOC conjugate Que Chavez MD Work Phone: [facility] 10-03-2006 measles, mumps, rube lla, and varicella virus vaccine Que Chavez MD Work Phone: [facility] Work Phone: 10-03-2006 pneumococcal conjuga te vaccine, 7 valent Que Chavez MD Work Phone: [facility] Work Phone: 06-17-2005 diphtheria, tetanus toxoids and acellular pertussis vaccine Que Chavez MD Work Phone: [facility] Work Phone: 06-17-2005 haemophilus influenz ae type b vaccine, HbOC conjugate Que Chavez MD Work Phone: [facility] 06-17-2005 pneumococcal conjuga te vaccine, 7 valent Que Chavez MD Work Phone: [facility] Work Phone: 06-17-2005 poliovirus vaccine, inactivated Que Chavez MD Work Phone: [facility] Work Phone: 05-06-2005 DTaP-hepatitis B and poliovirus vaccine Que Chavez MD Work Phone: [facility] Work Phone: 05-06-2005 haemophilus influenz ae type b vaccine, HbOC conjugate Que Chavez MD Work Phone: [facility] 05-06-2005 pneumococcal conjuga te vaccine, 7 valent Que Chavez MD Work Phone: [facility] Work Phone: 2004 DTaP-hepatitis B and poliovirus vaccine Que Chavez MD Work Phone: [facility] Work Phone: 2004 haemophilus influenz ae type b vaccine, HbOC conjugate Que Chavez MD Work Phone: [facility] 2004 pneumococcal conjuga te vaccine, 7 valent Que Chavez MD Work Phone: [facility] Work Phone: 2004 hepatitis B vaccine, pediatric or pediatric/adolescent dosage Que Chavez MD Work Phone: [facility] Payers Date Payer Category Payer Self-pay 2022 Unknown [id number] 2021 Medicaid [employer] [employer] [place] [employer] [id number] 2021-[facility] [phone] [address] [place] [address] Medicaid [id number] 2021 Medicaid [id number] 2016 Medicaid [id number] 2016 Unknown [id number] Unknown [id number] Unknown [id number] Unknown [id number] Unknown [id number] Unknown [id number] Unknown [id number] Unknown [id number] Unknown [id number] Social History Date Type Detail Facility Start: 01-13-2021 End: 10-28-2021 Tobacco smoking status NHIS Never smoked tobacco [facility] Work Phone: Start: 01-13-2021 End: 10-28-2021 Tobacco use and exposure Smokeless tobacco non-user [facility] Work Phone: Start: 06-12-2021 End: 10-05-2024 Alcohol intake Current non-drinker of alcohol (finding) [facility] Start: 12-29-2017 End: 10-28-2021 Tobacco Comment Second hand smoke exposure [facility] Start: 2005 Sex Assigned At Female [facility] Start: 06-02-2021 End: 01-18-2022 Exposure to SARS-CoV-2 (event) Not sure [facility] Work Phone: Start: 07-13-2021 History SDOH Physical Activity DPW 2 [facility] Start: 07-13-2021 History SDOH Financial 4 [facility] Start: 07-13-2021 History SDOH Food Worry 1 [facility] Start: 10-05-2022 End: 08-23-2023 History of Social function [facility] Start: 10-05-2022 End: 08-23-2023 Tobacco use panel [facility] How hard is it for y ou to pay for the very basics like food, housing, medical care, and heating Not very hard [facility] (I/We) worried wheth er (my/our) food would run out before (I/we) got money to buy more. Never true [facility] In the past 12 month s, has lack of transportation kept you from medical appointments or from getting medications? No [facility] In the past 12 month s, was there a time when you were not able to pay the mortgage or rent on time? No [facility] Start: 12-29-2017 Gender identity Identifies as female gender (finding) [facility] Start: 12-29-2017 Sexual orientation Heterosexual (finding) [facility] Are you now , , , , never or living with a partner? Never [facility] How often to you hav e a drink containing alcohol? Never [facility] Do you feel stress - tense, restless, nervous, or anxious, or unable to sleep at night because your mind is troubled all the time - these days [OSQ] Not at all [facility] Start: 02-16-2024 Education 12 [facility] Start: 01-17-2024 [facility] Goals Date Patient Goal Desired Activity /State Personal health goal Mental Status Date Assessment Result Facility 09-04-2024 Cognitive function Awake;Alert;A ppropriate;Fol lows Commands [facility] Work Phone: Clinical Notes 08-09-2016 to 10-05-2024 Quick Notes - Delifna Watson APRN.CNM - 10/05/2024 4:52 PM EDTCostDelfina loyola APRN.CNM - 10/05/2024 4:52 PM EDTPrenatal Quick Notes - Delfina Watson APRN.CNM - 10/05/2024 4:52 PM EDT Note Date & Type Note Facility 10-05-2024 Progress note Formatting of t his note might be different from the original. MEKA-S: Amirah Woodard is a 19 year old female who presents at 39w3d with ANA:10/09/2024, Alternate ANA Entry for a routine visit. Denies headache, visual changes, chest pain, shortness of breath, vaginal bleeding, leakage of fluid, or dysuria. Feeling well, no complaints. O: See flow sheet Gen: No apparent distress Abd: Gravid, nontender SENSITIVE EXAMINATION CONSENT: The sensitive examination was discussed with the Patient or Patient's Authorized Chocolate Finisher Operator. As applicable, any other physician, advance practice provider, medical student, or other health professional student that will be observing or involved in the sensitive examination for educational or training purposes was discussed with the Patient or Authorized Chocolate Finisher Operator. The Patient or Authorized Chocolate Finisher Operator has agreed to proceed with the sensitive examination. ASSESSMENT/PLAN: 1. 39 weeks gestation of -Discussed IOL vs expectant management. Agreeable to IOL at 41wk. Discussed risk, benefits and alternatives. Gabrielle with cytotec on 10/15/24 at 1900. Consent signed. 2. Supervision of high risk in third trimester 3. Obesity in 4. Positive GBS test Labor instructions reviewed and when to call RTO in one week Delfina Watson APRN.CNM [facility] 10-05-2024 Note HNO ID: [id number] Author: DELFINA WATSON APRN.CNM Service: ? Author Type: Legal Document Specialist Type: Progress Notes Filed: 10/05/2024 16:56 Note Text: MEKA- [facility] 10-05-2024 History of Presen t illness Narrative MEKA- documented in this encounter [facility] 10-05-2024 Miscellaneous Notes Formattin g of this note might be different from the original. MEKA-S: Amirah Woodard is a 19 year old female who presents at 39w3d with ANA:10/09/2024, Alternate ANA Entry for a routine visit. Denies headache, visual changes, chest pain, shortness of breath, vaginal bleeding, leakage of fluid, or dysuria. Feeling well, no complaints. O: See flow sheet Gen: No apparent distress Abd: Gravid, nontender SENSITIVE EXAMINATION CONSENT: The sensitive examination was discussed with the Patient or Patient's Authorized Chocolate Finisher Operator. As applicable, any other physician, advance practice provider, medical student, or other health professional student that will be observing or involved in the sensitive examination for educational or training purposes was discussed with the Patient or Authorized Chocolate Finisher Operator. The Patient or Authorized Chocolate Finisher Operator has agreed to proceed with the sensitive examination. ASSESSMENT/PLAN: 1. 39 weeks gestation of -Discussed IOL vs expectant management. Agreeable to IOL at 41wk. Discussed risk, benefits and alternatives. Anthony with cytotec on 10/15/24 at 1900. Consent signed. 2. Supervision of high risk in third trimester 3. Obesity in 4. Positive GBS test Labor instructions reviewed and when to call RTO in one week Delfina Watson APRN.CNM documented in this encounter [facility] 10-05-2024 Instructions Karen Dimas MA - 10/05/2024 4:19 PM EDT SEQUENTIAL SCREENINGS The [facility] offers sequential screenings for women who are interested in screenings for chromosomal abnormalities and certain defects during a . The sequential screen combines ultrasound and blood tests to determine the risk of chromosomal abnormalities, including Down's Syndrome (Trisomy 21) and Trisomy 18, as well as open neural tube defects including spina bifida. Ultrasound examination is performed between 11 weeks and 13 weeks gestational age. Blood tests are drawn after the ultrasound and again later in the between 15 and 21 weeks gestational age. Please let your physician know if you are interested in this testing. It will require an appointment with our gameroom technician. This is not an ultrasound performed by a physician in our office during a routine visit. SIGNS AND SYMPTOMS OF LABOR 1. Contractions every 10 minutes or more often 2. Clear, pink, or brownish fluid (water) leaking from vagina 3. Feeling that baby is pushing down, pressure 4. Low, dull backache 5. Cramps that feel like a period 6. Cramps with or without diarrhea If you notice any of the above symptoms, contact our office at [phone] and ask to speak with a nurse. After hours, you can call doctors registry at [phone] OR call [facility] at [phone] and ask to have the doctor senior director of global commercial technology solutions paged. If you consider this an emergency, dial 9-8-7 or go to your nearest emergency department. NEED HELP? Are you dealing with a violent or abusive relationship? Are you a victim of rape or sexual assult? Call [facility] ([facility] 24 hour Crisis Hotline: 956.504.3358 or 751-750-7715. MANUAL Your Guide to a Healthy manual is now on-line. Visit [email or web address] to download your free copy documented in this encounter [facility] 09-25-2024 Progress note Formatting of t his note might be different from the original. KJ - S: Amirah denies LOF or vaginal bleeding. She reports some irregular ctxs. O: 38w0d, see flow sheet SENSITIVE EXAM: The sensitive examination was discussed with the Patient or Patient's Authorized Chocolate Finisher Operator. As applicable, any other physician, advance practice provider, medical student, or other health professional student that will be observing or involved in the sensitive examination for educational or training purposes was discussed with the Patient or Authorized Chocolate Finisher Operator. The Patient or Authorized Chocolate Finisher Operator has agreed to proceed with the sensitive examination. (Sensitive examination includes inspection and/or palpation of the breasts, pelvis, prostate and anorectal regions). A/P: Assessment & Plan Supervision of high risk in third trimester (HCC) Orders: URINE OB DIP B/O 38 weeks gestation of ([facility]) Orders: URINE OB DIP B/O Reviewed labor & FM precautions Janelle Marin MD [facility] 09-25-2024 Miscellaneous Notes Formattin g of this note might be different from the original. KJ - S: Amirah denies LOF or vaginal bleeding. She reports some irregular ctxs. O: 38w0d, see flow sheet SENSITIVE EXAM: The sensitive examination was discussed with the Patient or Patient's Authorized Chocolate Finisher Operator. As applicable, any other physician, advance practice provider, medical student, or other health professional student that will be observing or involved in the sensitive examination for educational or training purposes was discussed with the Patient or Authorized Chocolate Finisher Operator. The Patient or Authorized Chocolate Finisher Operator has agreed to proceed with the sensitive examination. (Sensitive examination includes inspection and/or palpation of the breasts, pelvis, prostate and anorectal regions). A/P: Assessment & Plan Supervision of high risk in third trimester (HCC) Orders: URINE OB DIP B/O 38 weeks gestation of ([facility]) Orders: URINE OB DIP B/O Reviewed labor & FM precautions Janelle Marin MD documented in this encounter [facility] 09-25-2024 Instructions Cassie Abad MA - 09/25/2024 2:00 PM EDT SEQUENTIAL SCREENINGS The [facility] offers sequential screenings for women who are interested in screenings for chromosomal abnormalities and certain defects during a . The sequential screen combines ultrasound and blood tests to determine the risk of chromosomal abnormalities, including Down's Syndrome (Trisomy 21) and Trisomy 18, as well as open neural tube defects including spina bifida. Ultrasound examination is performed between 11 weeks and 13 weeks gestational age. Blood tests are drawn after the ultrasound and again later in the between 15 and 21 weeks gestational age. Please let your physician know if you are interested in this testing. It will require an appointment with our gameroom technician. This is not an ultrasound performed by a physician in our office during a routine visit. SIGNS AND SYMPTOMS OF LABOR 1. Contractions every 10 minutes or more often 2. Clear, pink, or brownish fluid (water) leaking from vagina 3. Feeling that baby is pushing down, pressure 4. Low, dull backache 5. Cramps that feel like a period 6. Cramps with or without diarrhea If you notice any of the above symptoms, contact our office at [phone] and ask to speak with a nurse. After hours, you can call [facility] registry at [phone] OR call [facility] at [phone] and ask to have the doctor senior director of global commercial technology solutions paged. If you consider this an emergency, dial 9-7-3 or go to your nearest emergency department. NEED HELP? Are you dealing with a violent or abusive relationship? Are you a victim of rape or sexual assult? Call [facility] [place] ([place]) 24 hour Crisis Hotline: 215.980.4905 or 020-732-8780. MANUAL Your Guide to a Healthy manual is now on-line. Visit [email or web address] to download your free copy documented in this encounter [facility] 09-18-2024 Progress note Formatting of t his note might be different from the original. SW- Pt doing well. No ctx, vb, lof. Good FM PE: Gen- NAD, well appearing Abd- Soft, gravid, NT See flowsheet A/p 37 wk gestation - GBS positive - Reviewed labor precautions - Weekly visits Alo Thompson DO [facility] 09-18-2024 Miscellaneous Notes Formattin g of this note might be different from the original. SW- Pt doing well. No ctx, vb, lof. Good FM PE: Gen- NAD, well appearing Abd- Soft, gravid, NT See flowsheet A/p 37 wk gestation - GBS positive - Reviewed labor precautions - Weekly visits Alo Thompson DO documented in this encounter [facility] 09-18-2024 Instructions Karen Dimas MA - 09/18/2024 1:22 PM EDT SEQUENTIAL SCREENINGS The [facility] offers sequential screenings for women who are interested in screenings for chromosomal abnormalities and certain defects during a . The sequential screen combines ultrasound and blood tests to determine the risk of chromosomal abnormalities, including Down's Syndrome (Trisomy 21) and Trisomy 18, as well as open neural tube defects including spina bifida. Ultrasound examination is performed between 11 weeks and 13 weeks gestational age. Blood tests are drawn after the ultrasound and again later in the between 15 and 21 weeks gestational age. Please let your physician know if you are interested in this testing. It will require an appointment with our gameroom technician. This is not an ultrasound performed by a physician in our office during a routine visit. SIGNS AND SYMPTOMS OF LABOR 1. Contractions every 10 minutes or more often 2. Clear, pink, or brownish fluid (water) leaking from vagina 3. Feeling that baby is pushing down, pressure 4. Low, dull backache 5. Cramps that feel like a period 6. Cramps with or without diarrhea If you notice any of the above symptoms, contact our office at [phone] and ask to speak with a nurse. After hours, you can call doctors registry at [phone] OR call [facility] at [phone] and ask to have the doctor senior director of global commercial technology solutions paged. If you consider this an emergency, dial or go to your nearest emergency department. NEED HELP? Are you dealing with a violent or abusive relationship? Are you a victim of rape or sexual assult? Call [facility] ([place]) 24 hour Crisis Hotline: 795.373.5681 or 253-977-1970. MANUAL Your Guide to a Healthy manual is now on-line. Visit [email or web address] to download your free copy documented in this encounter [facility] 09-12-2024 Note HNO ID: [id number] Author: CASTILLO MCKEON MD Service: ? Author Type: Physician Type: Progress Notes Filed: 09/12/2024 10:52 Note Text: RR- VB No. LOF No. CTXS some BH, crampy. no regular ctxs. Movement: present. Other c/o: heartburn not relived w/ tums Medication list reviewed. SENSITIVE EXAM: The sensitive examination was discussed with the Patient or Patient's Authorized Chocolate Finisher Operator. As applicable, any other physician, advance practice provider, medical student, or other health professional student that will be observing or involved in the sensitive examination for educational or training purposes was discussed with the Patient or Authorized Chocolate Finisher Operator. The Patient or Authorized Chocolate Finisher Operator has agreed to proceed with the sensitive examination. (Sensitive examination includes inspection and/or palpation of the breasts, pelvis, prostate and anorectal regions). Physical Exam See Flow Sheet Abd: soft, nontender, gravid Ext: edema: Trace A/P 36w1d Estimated Date of Delivery: 10/09/24 Assessment AND Plan 36 weeks gestation of ([facility]) Orders: URINE OB DIP B/O ROUTINE, GROUP B STREPTOCOCCUS BY PCR Supervision of high risk in third trimester ([facility]) Orders: URINE OB DIP B/O Obesity affecting in third trimester, unspecified obesity type ([facility]) Orders: URINE OB DIP B/O Heartburn during in third trimester ([facility]) rx pepcid reviewed urine dip. Brief US confirms vtx f/u 1 week or prn Castillo Mckeon M.D. [facility] 09-12-2024 History of Presen t illness Narrative RR- VB No. LOF No. CTXS some BH, crampy. no regular ctxs. Movement: present. Other c/o: heartburn not relived w/ tums Medication list reviewed. SENSITIVE EXAM: The sensitive examination was discussed with the Patient or Patient's Authorized Chocolate Finisher Operator. As applicable, any other physician, advance practice provider, medical student, or other health professional student that will be observing or involved in the sensitive examination for educational or training purposes was discussed with the Patient or Authorized Chocolate Finisher Operator. The Patient or Authorized Chocolate Finisher Operator has agreed to proceed with the sensitive examination. (Sensitive examination includes inspection and/or palpation of the breasts, pelvis, prostate and anorectal regions). Physical Exam See Flow Sheet Abd: soft, nontender, gravid Ext: edema: Trace A/P 36w1d Estimated Date of Delivery: 10/09/24 Assessment & Plan 36 weeks gestation of ([facility]) Orders: URINE OB DIP B/O ROUTINE, GROUP B STREPTOCOCCUS BY PCR Supervision of high risk in third trimester ([facility]) Orders: URINE OB DIP B/O Obesity affecting in third trimester, unspecified obesity type ([facility]) Orders: URINE OB DIP B/O Heartburn during in third trimester ([facility]) rx pepcid reviewed urine dip. Brief US confirms vtx f/u 1 week or prn Castillo Mckeon M.D. documented in this encounter [facility] 09-12-2024 Instructions Leah Villaseñor MA - 09/12/2024 10:14 AM EDT SEQUENTIAL SCREENINGS The [facility] offers sequential screenings for women who are interested in screenings for chromosomal abnormalities and certain defects during a . The sequential screen combines ultrasound and blood tests to determine the risk of chromosomal abnormalities, including Down's Syndrome (Trisomy 21) and Trisomy 18, as well as open neural tube defects including spina bifida. Ultrasound examination is performed between 11 weeks and 13 weeks gestational age. Blood tests are drawn after the ultrasound and again later in the between 15 and 21 weeks gestational age. Please let your physician know if you are interested in this testing. It will require an appointment with our gameroom technician. This is not an ultrasound performed by a physician in our office during a routine visit. SIGNS AND SYMPTOMS OF LABOR 1. Contractions every 10 minutes or more often 2. Clear, pink, or brownish fluid (water) leaking from vagina 3. Feeling that baby is pushing down, pressure 4. Low, dull backache 5. Cramps that feel like a period 6. Cramps with or without diarrhea If you notice any of the above symptoms, contact our office at [phone] and ask to speak with a nurse. After hours, you can call doctors registry at [phone] OR call [facility] at [phone] and ask to have the doctor senior director of global commercial technology solutions paged. If you consider this an emergency, dial 9-1-1 or go to your nearest emergency department. NEED HELP? Are you dealing with a violent or abusive relationship? Are you a victim of rape or sexual assult? Call [facility] ([place]) 24 hour Crisis Hotline: 367.211.7632 or 747-769-9226. MANUAL Your Guide to a Healthy manual is now on-line. Visit [email or web address] to download your free copy documented in this encounter [facility] 09-04-2024 Telephone encount er Note Noted. Thanks! Janelle Marin MD [facility] 09-04-2024 Miscellaneous Notes Formattin g of this note might be different from the original. Noted. Thanks! Janelle Marin MD Spoke with in ED. All work up normal. Patient D/Cd home. Delfina Watson APRN.CNM documented in this encounter [facility] 09-04-2024 Telephone encount er Note Spoke with in ED. All work up normal. Patient D/Cd home. Delfina Watson APRN.CNM [facility] 09-04-2024 Discharge summary [facility] 09-04-2024 Radiology Diagnostic study note [facility] Imaging Services [address] [place], [place] [address] CTA Chest W/WO Contrast MR#: [id number] Acct: [id number] Name: AMIRAH WOODARD Rep #: [id number] : 2005 F 19 From: Gatito Moreno MD PCP: Dr. Ruiz Vega DO Status: RE G ER Study:CTA Chest W/WO Contrast Date of Exam: 09/04/24 Exam# [id number] Ordering Dr: Raisa Richardson MD PROCEDURE: CTA CHEST W/WO CONTRAST 09/04/2024 REASON FOR EXAM: 35 WEEKS WITH CHEST PAIN, DYSPNEA AND TAC TECHNIQUE: CTA CHEST W/WO CONTRAST Multiplanar Sagittal and Coronal images were obtained. 3D post processing was performed CONTRAST: Isovue 370 VOLUME: 100 mL One or more dose reduction techniques were used (e.g., Automated exposure control, adjustment of the mA and/or kV according to patient size, use of iterative reconstruction technique). RADIATION DOSE SUMMARY: CTDlvol: 30.06 mGy DLP: 469.45 mGycm COMPARISON: No comparison studies # of known CTs in the past 12 months: 0 # of known Cardiac Nuclear Medicine Studies in the past 12 months: 0 FINDINGS: No evidence of filling defects within the pulmonary arteries to suspect PE. The thoracic aorta tapers normally without aneurysm or dissection. Lung windows do not show evidence of a superimposed acute pulmonary process. No suspicious adenopathy Bony structures are unremarkable, limited cuts through the upper abdomen do not show a suspicious abnormality CT/CTA Chest W/WO Contrast IMPRESSION: No demonstrated PE, or thoracic aortic aneurysm or dissection No acute pulmonary process Reading Location: [facility] CC: Dr. Conrado Richardson MD; Dr. Ruiz Vega DO ~ Senior Director Of [employer]: Signed [facility] 09-04-2024 Telephone encounter Note Patient should be in ED at this time. No concern about urine dip. Janelle Marin MD [facility] 09-04-2024 Miscellaneous Notes Patient should be in ED at this time. No concern about urine dip. Janelle Marin MD documented in this encounter [facility] 09-04-2024 Progress note Formatting of t his note might be different from the original. KJ - S: Patient seen urgently for heart racing and Shortness of Breath that started this morning. Denies fevers/chils. Brendolyn denies LOF, contractions or vaginal bleeding. She reports stable cramps. O: 35w0d, see flow sheet SENSITIVE EXAM: Sensitive exam not performed. A/P: Assessment & Plan Supervision of high risk in third trimester (HCC) Orders: URINE OB DIP B/O Obesity affecting in third trimester, unspecified obesity type (HCC) Orders: URINE OB DIP B/O 35 weeks gestation of (HCC) Orders: URINE OB DIP B/O Patient to [facility] for eval of tachycardia and Shortness of Breath. No evidence labor. Janelle Marin MD [facility] 09-04-2024 Miscellaneous Notes KJ - S: Patient seen urgently for heart racing and Shortness of Breath that started this morning. Denies fevers/chils. Brendolyn denies LOF, contractions or vaginal bleeding. She reports stable cramps. O: 35w0d, see flow sheet SENSITIVE EXAM: Sensitive exam not performed. A/P: Assessment & Plan Supervision of high risk in third trimester (HCC) Orders: URINE OB DIP B/O Obesity affecting in third trimester, unspecified obesity type (HCC) Orders: URINE OB DIP B/O 35 weeks gestation of (HCC) Orders: URINE OB DIP B/O Patient to [facility] for eval of tachycardia and Shortness of Breath. No evidence labor. Janelle Marin MD documented in this encounter [facility] 09-04-2024 Angelique Abad Cassie, MA - 09/04/2024 9:30 AM EDT SEQUENTIAL SCREENINGS The [facility] offers sequential screenings for women who are interested in screenings for chromosomal abnormalities and certain defects during a . The sequential screen combines ultrasound and blood tests to determine the risk of chromosomal abnormalities, including Down's Syndrome (Trisomy 21) and Trisomy 18, as well as open neural tube defects including spina bifida. Ultrasound examination is performed between 11 weeks and 13 weeks gestational age. Blood tests are drawn after the ultrasound and again later in the between 15 and 21 weeks gestational age. Please let your physician know if you are interested in this testing. It will require an appointment with our gameroom technician. This is not an ultrasound performed by a physician in our office during a routine visit. SIGNS AND SYMPTOMS OF LABOR 1. Contractions every 10 minutes or more often 2. Clear, pink, or brownish fluid (water) leaking from vagina 3. Feeling that baby is pushing down, pressure 4. Low, dull backache 5. Cramps that feel like a period 6. Cramps with or without diarrhea If you notice any of the above symptoms, contact our office at [phone] and ask to speak with a nurse. After hours, you can call doctors registry at [phone] OR call [facility] at [phone] and ask to have the doctor senior director of global commercial technology solutions paged. If you consider this an emergency, dial 9-1-7 or go to your nearest emergency department. NEED HELP? Are you dealing with a violent or abusive relationship? Are you a victim of rape or sexual assult? Call [facility] [place] ([facility] 24 hour Crisis Hotline: 522.592.1451 or 440-932-8679. MANUAL Your Guide to a Healthy manual is now on-line. Visit [email or web address] See to download your free copy documented in this encounter [facility] 08-30-2024 Progress note Formatting of t his note might be different from the original. S: Danielleaileen Woodard is a 19 year old female who presents at 34 weeks gestation for a routine visit. Positive movements. 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 Needs letter. Tried to schedule with chiropractor but unable to get appointment until after due date. Denies headache, visual changes, chest pain, shortness of breath, vaginal bleeding, leakage of fluid, or dysuria. Rash resolved. O: See flow sheet Gen: No apparent distress Abd: Gravid, nontender ASSESSMENT/PLAN: 1. Supervision of high risk in third trimester 2. Obesity affecting in third trimester, unspecified obesity type 3. 34 weeks gestation of - Continue wearing support belt when working - Letter provided for working 4 hour shifts - Continue vitamin/ ASA daily - Encouraged taking class/ - Desires unmedicated labor and delivery - Reviewed PTL precautions and kick counts - RTO 2 weeks for GERRI with GBS La Del Castillo APRN.CNM [facility] Work Phone: 08-30-2024 Miscellaneous Notes S: Amirah Woodard is a 19 year old female who presents at 34 weeks gestation for a routine visit. Positive movements. 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 Needs letter. Tried to schedule with chiropractor but unable to get appointment until after due date. Denies headache, visual changes, chest pain, shortness of breath, vaginal bleeding, leakage of fluid, or dysuria. Rash resolved. O: See flow sheet Gen: No apparent distress Abd: Gravid, nontender ASSESSMENT/PLAN: 1. Supervision of high risk in third trimester 2. Obesity affecting in third trimester, unspecified obesity type 3. 34 weeks gestation of - Continue wearing support belt when working - Letter provided for working 4 hour shifts - Continue vitamin/ ASA daily - Encouraged taking class/ - Desires unmedicated labor and delivery - Reviewed PTL precautions and kick counts - RTO 2 weeks for GERRI with GBS La Del Castillo APRN.CNM documented in this encounter [facility] 08-30-2024 Instructions La Del Castillo APRN.CNM - 08/30/2024 2:46 PM EDT Images from the original note were not included. SEQUENTIAL SCREENINGS The [facility] offers sequential screenings for women who are interested in screenings for chromosomal abnormalities and certain defects during a . The sequential screen combines ultrasound and blood tests to determine the risk of chromosomal abnormalities, including Down's Syndrome (Trisomy 21) and Trisomy 18, as well as open neural tube defects including spina bifida. Ultrasound examination is performed between 11 weeks and 13 weeks gestational age. Blood tests are drawn after the ultrasound and again later in the between 15 and 21 weeks gestational age. Please let your physician know if you are interested in this testing. It will require an appointment with our gameroom technician. This is not an ultrasound performed by a physician in our office during a routine visit. Preparing for labor: Eat dates to promote spontaneous labor! Has an oxytocin-like effect on the body, leading to increased sensitivity of the uterus. Stimulates uterine contractions. Reduces hemorrhage the way oxytocin does. Date fruit contains saturated and unsaturated fatty acids such as oleic, linoleic, and linolenic acids, which are involved in saving and supplying energy and construction of prostaglandins. In addition, serotonin, tannin, and calcium in date fruit contribute to the contraction of smooth muscles of the uterus. Date fruit also has a laxative effect, which stimulates uterine contractions. Six dates per day is the magic number--provided that you re eating smaller deglet noor dates. Deglet noor dates are about 1 inch long. Medjool dates can be up to 2 inches long. If you re eating medjool dates, you only need about 3 dates to reach the 75 grams recommended in the studies. Not sure which type of date you have in your refrigerator? It s probably a deglet noor. How to Eat Dates During Dates are a healthy and delicious snack, so how can you add them to your diet? Add dates during in this awesome oatmeal recipe. Add dates to replace sugar in your favorite recipe or to casandra your homemade almond milk. Use dates and nuts to make an easy pie crust in the poultry processor. Add soaked dates to homemade nut butter for a sweet treat. Add dates to casandra homemade salad dressing. Add dates during easily with these yummy (paleo friendly) bars made from dates. What Is Red Raspberry [place] Tea? Red raspberry leaf tea comes from the leaves of the red raspberry plant. This herbal tea has been used for centuries to support respiratory, digestive and uterine health, particularly during and childbearing years. While usually known as a female herb, red raspberry leaf tea can also help support the prostate and various stomach ailments in children. How It Can Help and Red raspberry leaf tea can help to make labor faster and reduce complications and interventions during . One study found that women who consumed RRL tea regularly are less likely to go overdue or give prematurely. These women may also be less likely to receive an artificial rupture of their membranes or require a section, forceps, or vacuum than the women in the control group. Red raspberry leaf has many other benefits to , , and too. How Much Red Raspberry [place] Tea to Drink? With your doctor or swing frame grinder operator s approval, start with 1 cup of red raspberry leaf tea per day starting in the second trimester. Watch for any uterine cramping or other reactions. If you don t experience any, you can talk to your healthcare provider about increasing to 2 cups per day. Again, watch for any uterine cramping. If you notice any, cut back on your dosage for two weeks and try again. Keep in mind, some moms have irritable uteruses and can only drink red raspberry leaf tea once they reach their due date because of uterine cramping. Is Red Raspberry [place] Tea the Same as Raspberry [place] Tea? How About Plain Old Raspberry Tea? Sometimes. You really need to look at the ingredients to be sure. Note that there is no difference between red raspberry leaf and raspberry leaf. Penelope[employer] Purse or [employer] Raspberry [place] Tea are two good brands. The red raspberry leaf teas that we recommend are 100% red raspberry leaf. Other teas labeled as raspberry are often a blend of rosehips, hibiscus, raspberry leaves, and raspberry flavor. So they may not be as effective. The teas to avoid are raspberry-flavored herbal teas, which may have ingredients like hibiscus, sophy hips, apples, elderberries, natural and artificial raspberry flavors. Teas like this don t contain raspberry leaf at all and thus won t offer any of the potential benefits of RRLT outlined in this article. The [employer] Circuit www.Tasted Menu I named this 'circuit' after my friend Katey Harris, who shared and discussed it with me when I was working with a client whose labor seemed to be stalled out and no longer progressing... This circuit is useful to help get the baby lined up, ideally, in the Left Occiput Anterior (CONNIE) Position, both before labor begins and when some corrections need to be done during labor. Prenatally, this position set can help to rotate a baby. As a natural method of induction, this can help get things going if baby just needed a gentle nudge of position to set things off. To the best of my knowledge, this group of positions will not hurt a baby that is already lined up correctly. - Nicolette Heaton Before you Begin..... This circuit takes at least 90 minutes to complete so clear your schedule and make mental preparations so you can relax in your environment. The second step requires a lot of pillows so gather them up before beginning Before starting, you should empty your bladder! Have a nice drink nearby, and make sure it has a straw! If you are having contractions, this circuit should bedone through contractions, try not to change positions between steps Step One: Open-knee Chest Stay in this position for 30 minutes, start in cat/cow, then drop your chest as low as you can to the bed or the floor and your bottom as high as you can. Knees should be fairly wide apart, and the angle between the torso/thighs should be wider than 90 degrees. Wiggle around, prop with lots of pillows and use this time to get totally relaxed. This position allows the baby to scoot out of the pelvis a bit and gives them room to rotate, shift their head position, etc. If the person finds it helpful,careful positioning with a rebozo under the belly, with gentle tension from a support person behindcan help maintain this position for the full 30minutes. Step Two: Exaggerated Left Side Lying Roll to your left side, bringing your top leg as high as possible and keeping your bottom leg straight. Roll forward as much as possible,again using a lot of pillows. Sink into the bed and relax some more. If you fall asleep, that's totally okay and you can stay there! If not, stay here for at least another half an hour. Try and get your top right leg up towards your head and get as rolled over onto your belly as much as possible. If you repeat the circuit during labor, try alternating left and right sides. We know the photo the left is actually right side... just flip the image in your head. Step Three: Moving and Lunges Lunge, walk stairs facing sideways, 2 at a time, (have a dry room attendant downstairs of you!), take a walk outside with one foot on the curb and the other on the street, sit on a ball and hula- anything that's upright and putting your pelvis in open, asymmetrical positions. Spend at least 30 minutes doing this one as well to give your baby a chance to move down. If you are lunging or stair or curb walking, you should lunge/walk/go up stairs in the direction that feels better to you. The gudino with the lunge is that the toes of the higher leg and mom's belly button should be at right angles. Do not lunge over your knee, that closes the pelvis. Katey Hraris: Circuit Creator - [email or web address] [email or web address] Clean [email or web address].[place] Nicolette Heaton CD, BDT (MARIANN), LCCE, FACCE: Supporting Content - www.[email or web address].[email or web address] Lindsey Griffith: Photography - [email or web address] International [email or web address].[place]oo Meghna Green CD/CDT (NICHOLAS): Print and Spiritual Care Coordinator - www.[email or web address].Tapatalk Circuit Master[employer] Software [employer] www.[email or web address].[place] SIGNS AND SYMPTOMS OF LABOR 1. Contractions every 10 minutes or more often 2. Clear, pink, or brownish fluid (water) leaking from vagina 3. Feeling that baby is pushing down, pressure 4. Low, dull backache 5. Cramps that feel like a period 6. Cramps with or without diarrhea If you notice any of the above symptoms, contact our office at [phone] and ask to speak with a nurse. After hours, you can call doctors registry at [phone] OR call [facility] at [phone] and ask to have the doctor senior director of global commercial technology solutions paged. If you consider this an emergency, dial 91-0 or go to your nearest emergency department. NEED HELP? Are you dealing with a violent or abusive relationship? Are you a victim of rape or sexual assult? Call [facility] ([place]) 24 hour Crisis Hotline: 624.176.7779 or 716-953-7597. MANUAL Your Guide to a Healthy manual is now on-line. Visit [email or web address] See to download your free copy documented in this encounter [facility] 08-16-2024 Progress note Formatting of t his note might be different from the original. EH - S: Amirah is a 19 year old female who presents at 32w2d for a routine visit. Feeling movement. Denies headache, visual changes, chest pain, shortness of breath, vaginal bleeding, leakage of fluid, or dysuria. Reports itching has improved. Reports cramping 2-3 times per week. Reports musculoskeletal pain to hips. O: See flow sheet Gen: No apparent distress Abd: Gravid, nontender, S=D ASSESSMENT/PLAN: 1. Supervision of high risk in third trimester (HCC) - ICD9: V23.9, ICD10: O09.93 (primary diagnosis) - Continue PNV and LDA 2. 32 weeks gestation of ([facility]) - ICD9: V22.2, ICD10: Z3A.32 - Discussed post anesthesia care unit nurse, support band, gentle stretching for musculoskeletal pain - Discussed signs of [place] - increase hydration 3. Obesity affecting in third trimester, unspecified obesity type (HCC) - ICD9: 649.13, ICD10: O99.213 - Pre BMI 31 PTL precautions and kick counts reviewed. RTO in 2 weeks or sooner as needed. Lindsey Moreno APRN.CNP [facility] 08-16-2024 Miscellaneous Notes EH - S: Amirah is a 19 year old female who presents at 32w2d for a routine visit. Feeling movement. Denies headache, visual changes, chest pain, shortness of breath, vaginal bleeding, leakage of fluid, or dysuria. Reports itching has improved. Reports cramping 2-3 times per week. Reports musculoskeletal pain to hips. O: See flow sheet Gen: No apparent distress Abd: Gravid, nontender, S=D ASSESSMENT/PLAN: 1. Supervision of high risk in third trimester ([facility]) - ICD9: V23.9, ICD10: O09.93 (primary diagnosis) - Continue PNV and LDA 2. 32 weeks gestation of ([facility]) - ICD9: V22.2, ICD10: Z3A.32 - Discussed post anesthesia care unit nurse, support band, gentle stretching for musculoskeletal pain - Discussed signs of [place] - increase hydration 3. Obesity affecting in third trimester, unspecified obesity type ([facility]) - ICD9: 649.13, ICD10: O99.213 - Pre BMI 31 PTL precautions and kick counts reviewed. RTO in 2 weeks or sooner as needed. Lindsey Moreno APRN.JOSELYN documented in this encounter [facility] 08-16-2024 Instructions Yumiko Meza MA - 08/16/2024 2:22 PM EDT SEQUENTIAL SCREENINGS The [facility] offers sequential screenings for women who are interested in screenings for chromosomal abnormalities and certain defects during a . The sequential screen combines ultrasound and blood tests to determine the risk of chromosomal abnormalities, including Down's Syndrome (Trisomy 21) and Trisomy 18, as well as open neural tube defects including spina bifida. Ultrasound examination is performed between 11 weeks and 13 weeks gestational age. Blood tests are drawn after the ultrasound and again later in the between 15 and 21 weeks gestational age. Please let your physician know if you are interested in this testing. It will require an appointment with our gameroom technician. This is not an ultrasound performed by a physician in our office during a routine visit. SIGNS AND SYMPTOMS OF LABOR 1. Contractions every 10 minutes or more often 2. Clear, pink, or brownish fluid (water) leaking from vagina 3. Feeling that baby is pushing down, pressure 4. Low, dull backache 5. Cramps that feel like a period 6. Cramps with or without diarrhea If you notice any of the above symptoms, contact our office at [phone] and ask to speak with a nurse. After hours, you can call doctors registry at [phone] OR call [facility] at [phone] and ask to have the doctor senior director of global commercial technology solutions paged. If you consider this an emergency, dial [phone] or go to your nearest emergency department. NEED HELP? Are you dealing with a violent or abusive relationship? Are you a victim of rape or sexual assult? Call [facility] ([place]) 24 hour Crisis Hotline: 268.746.6753 or 029-705-7166. MANUAL Your Guide to a Healthy manual is now on-line. Visit [email or web address] See to download your free copy documented in this encounter [facility] 08-13-2024 Note HNO ID: [id number] Author: RUIZ VEGA, DO Service: ? Author Type: Physician Type: Progress Notes Filed: 08/13/2024 10:11 Note Text: Subjective Amirah Woodard is a 19-year-old female, 1 para 0, presenting for an initial visit and evaluation of -related symptoms. : - Currently 31-32 weeks gestation with a male fetus; ANA: October 09. - First . - care managed by Dr. Mckeon and team; next appointment scheduled with Rhonda. - Planning a vaginal delivery at [place]. - Taking vitamins; denies nausea or emesis. - Denies significant morning sickness. - Reports increased appetite. - Experiencing fatigue and denies edema legs - History of left leg fracture in September of the previous year. - Severe acid reflux, managed with Tums; plans to discuss alternative treatments with OB. - Recent blood work performed at 28 weeks gestation. - Intends to breastfeed; has obtained a breast pump. - Strong support system, including in-laws and father living nearby. 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 Constitutional: (+) fatigue Cardiovascular: (+) bilateral leg swelling Gastrointestinal: (+) heartburn, (+) increased appetite, (-) nausea, (-) vomiting Objective Blood pressure 90/60, pulse 88, temperature (!) 35.8 ?C (96.4 ?F), temperature source Left Tympanic, resp. rate 16, height 165 cm (5' 4.96), weight 95.7 kg (211 lb), last menstrual period 01/03/2024. GENERAL: NAD, alert and oriented SKIN: unremarkable, no rash or skin lesions. HEAD: normocephalic EYES: PERRLA, EOMI, conjunctiva clear EARS: external ears normal, canals clear, TM's normal. NOSE/SINUSES: Nares normal. Septum midline. OROPHARYNX: lips, mucosa, and tongue normal, good dentition. No oral lesions noted. NECK: Supple, no lymphadenopathy, normal thyroid, no carotid bruits. LUNGS: Clear to auscultation bilaterally, no wheezes/rhonchi/rales. HEART: Regular rate and rhythm, no murmurs. No ectopy. EXTREMITIES: Normal, No deformities, No skin discoloration, No edema. NEURO: Awake, alert and oriented x3, cranial nerves II-XII grossly intact, normal gait, no involuntary motions ABD: gravid uterus, normal BS, no masses, normal BS Assessment AND Plan 1. Well adult exam (Z00.00) - Conducted comprehensive physical examination; lungs and heart auscultation normal. - Discussed follow-up to ensure physiological normalization; scheduled follow-up appointment for early December to assess post-delivery blood work, including thyroid function, vitamin levels, and iron levels. - Patient understands and agrees with the plan. 2. 31 weeks gestation of (HCC) (Z3A.31) - progressing well; no significant complications reported. - Blood pressure within normal limits - managed by OBGYN for care - Patient has a breast pump and is aware of support services available at the hospital. - Next OB appointment scheduled with Rhonda. 3. Class 2 obesity with body mass index (BMI) of 35.0 to 35.9 in adult, unspecified obesity type, unspecified whether serious comorbidity present (E66.812) - Emphasized importance of monitoring weight and maintaining a healthy diet. 4. Gastroesophageal reflux disease without esophagitis (K21.9) has some GERD symptoms; currently using Tums with limited relief. - Recommended discussing the use of an alternative medication with her OB, as it is safe during . - Advised elevating the head of the bed by 4-6 inches to reduce nocturnal acid reflux. - Patient understands and agrees with the plan. Recording using Breather software for draft documentation of the visit was discussed with the patient/authorized circulation sales representative; all questions welcomed and answered. Patient/authorized circulation sales representative agreed to proceed [facility] 08-13-2024 History of Present illness Narrative Subjective Amirah Woodard is a 19-year-old female, 1 para 0, presenting for an initial visit and evaluation of -related symptoms. : - Currently 31-32 weeks gestation with a male fetus; ANA: October 09. - First . - care managed by Dr. Mckeon and team; next appointment scheduled with Rhonda. - Planning a vaginal delivery at [place]. - Taking vitamins; denies nausea or emesis. - Denies significant morning sickness. - Reports increased appetite. - Experiencing fatigue and denies edema legs - History of left leg fracture in September of the previous year. - Severe acid reflux, managed with Tums; plans to discuss alternative treatments with OB. - Recent blood work performed at 28 weeks gestation. - Intends to breastfeed; has obtained a breast pump. - Strong support system, including in-laws and father living nearby. 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 Constitutional: (+) fatigue Cardiovascular: (+) bilateral leg swelling Gastrointestinal: (+) heartburn, (+) increased appetite, (-) nausea, (-) vomiting Objective Blood pressure 90/60, pulse 88, temperature (!) 35.8 C (96.4 F), temperature source Left Tympanic, resp. rate 16, height 165 cm (5' 4.96), weight 95.7 kg (211 lb), last menstrual period 01/03/2024. GENERAL: NAD, alert and oriented SKIN: unremarkable, no rash or skin lesions. HEAD: normocephalic EYES: PERRLA, EOMI, conjunctiva clear EARS: external ears normal, canals clear, TM's normal. NOSE/SINUSES: Nares normal. Septum midline. OROPHARYNX: lips, mucosa, and tongue normal, good dentition. No oral lesions noted. NECK: Supple, no lymphadenopathy, normal thyroid, no carotid bruits. LUNGS: Clear to auscultation bilaterally, no wheezes/rhonchi/rales. HEART: Regular rate and rhythm, no murmurs. No ectopy. EXTREMITIES: Normal, No deformities, No skin discoloration, No edema. NEURO: Awake, alert and oriented x3, cranial nerves II-XII grossly intact, normal gait, no involuntary motions ABD: gravid uterus, normal BS, no masses, normal BS Assessment & Plan 1. Well adult exam (Z00.00) - Conducted comprehensive physical examination; lungs and heart auscultation normal. - Discussed follow-up to ensure physiological normalization; scheduled follow-up appointment for early December to assess post-delivery blood work, including thyroid function, vitamin levels, and iron levels. - Patient understands and agrees with the plan. 2. 31 weeks gestation of (HCC) (Z3A.31) - progressing well; no significant complications reported. - Blood pressure within normal limits - managed by OBGYN for care - Patient has a breast pump and is aware of support services available at the hospital. - Next OB appointment scheduled with Rhonda. 3. Class 2 obesity with body mass index (BMI) of 35.0 to 35.9 in adult, unspecified obesity type, unspecified whether serious comorbidity present (E66.812) - Emphasized importance of monitoring weight and maintaining a healthy diet. 4. Gastroesophageal reflux disease without esophagitis (K21.9) has some GERD symptoms; currently using Tums with limited relief. - Recommended discussing the use of an alternative medication with her OB, as it is safe during . - Advised elevating the head of the bed by 4-6 inches to reduce nocturnal acid reflux. - Patient understands and agrees with the plan. Recording using ambient [employer] software for draft documentation of the visit was discussed with the patient/authorized circulation sales representative; all questions welcomed and answered. Patient/authorized circulation sales representative agreed to proceed documented in this encounter [facility] 08-08-2024 Telephone encounter Note Order signed and faxed. Caroline Mora RN [facility] 08-08-2024 Miscellaneous Notes Order signed and faxed. Caroline Mora RN Breast pump request received from [employer]. Order to provider to sign. Caroline Mora RN documented in this encounter [facility] 08-06-2024 Telephone encounter Note Breast pump request received from [employer]. Order to provider to sign. Caroline Mora RN [facility] 08-03-2024 Telephone encounter Note 3rd risk assessment form submitted 08/03/24 Tio Hutchison RN [facility] 08-03-2024 Miscellaneous Notes 3rd risk assessment form submitted 08/03/24 Tio Hutchison RN documented in this encounter [facility] 08-01-2024 Progress note Formatting of t his note might be different from the original. RR- VB No. LOF No. CTXS No. Movement: present. Other c/o: denies NAPOLES or visual changes. itching and raised light rash diffusely on her body. Did change laundry detergetnt. Some itchy eyes. Changed back and used hydrocortisone and helps some. Uses claritin prn allergies. No itching palms/soles Medication list reviewed. SENSITIVE EXAM: Sensitive exam not performed. Physical Exam See Flow Sheet Abd: soft, nontender, gravid Ext: edema: Trace skin- raised pink blanching rash A/P 30w1d Estimated Date of Delivery: 10/09/24 Assessment & Plan Supervision of high risk in third trimester ([facility]) Orders: COMPLETE BLOOD COUNT AND DIFFERENTIAL; Future COMPREHENSIVE METABOLIC PANEL; Future BILE ACIDS, TOTAL; Future 30 weeks gestation of ([facility]) Orders: COMPLETE BLOOD COUNT AND DIFFERENTIAL; Future COMPREHENSIVE METABOLIC PANEL; Future BILE ACIDS, TOTAL; Future Rash no evidence cholestasis, seems more rlated to seasonal allergies as some respiratory allergic symptoms as well. Cont. zyrtec/claritin prn OTC and trial of flonase and cont. hydrocortisone prn to skin and use a good lotion. Symptomatic measure reviewed. Orders: COMPLETE BLOOD COUNT AND DIFFERENTIAL; Future COMPREHENSIVE METABOLIC PANEL; Future BILE ACIDS, TOTAL; Future Other obesity due to excess calories affecting , antepartum ([facility]) Allergic rhinitis, unspecified seasonality, unspecified trigger Castillo Mckeon M.D. [facility] 08-01-2024 Miscellaneous Notes RR- VB No. LOF No. CTXS No. Movement: present. Other c/o: denies NAPOLES or visual changes. itching and raised light rash diffusely on her body. Did change laundry detergetnt. Some itchy eyes. Changed back and used hydrocortisone and helps some. Uses claritin prn allergies. No itching palms/soles Medication list reviewed. SENSITIVE EXAM: Sensitive exam not performed. Physical Exam See Flow Sheet Abd: soft, nontender, gravid Ext: edema: Trace skin- raised pink blanching rash A/P 30w1d Estimated Date of Delivery: 10/09/24 Assessment & Plan Supervision of high risk in third trimester ([facility]) Orders: COMPLETE BLOOD COUNT AND DIFFERENTIAL; Future COMPREHENSIVE METABOLIC PANEL; Future BILE ACIDS, TOTAL; Future 30 weeks gestation of ([facility]) Orders: COMPLETE BLOOD COUNT AND DIFFERENTIAL; Future COMPREHENSIVE METABOLIC PANEL; Future BILE ACIDS, TOTAL; Future Rash no evidence cholestasis, seems more rlated to seasonal allergies as some respiratory allergic symptoms as well. Cont. zyrtec/claritin prn OTC and trial of flonase and cont. hydrocortisone prn to skin and use a good lotion. Symptomatic measure reviewed. Orders: COMPLETE BLOOD COUNT AND DIFFERENTIAL; Future COMPREHENSIVE METABOLIC PANEL; Future BILE ACIDS, TOTAL; Future Other obesity due to excess calories affecting , antepartum ([facility]) Allergic rhinitis, unspecified seasonality, unspecified trigger Castillo Mckeon M.D. documented in this encounter [facility] 07-20-2024 Note HNO ID: [id number] Author: LINDSEY MORENO APRN.BANDAGE WINDING MACHINE OPERATOR Service: ? Author Type: Nurse Practitioner Type: Progress Notes Filed: 07/20/2024 08:48 Note Text: EH - S: Amirah is a 18 year old female who presents at 28w3d for a routine visit. Feeling movement. Denies headache, visual changes, chest pain, shortness of breath, vaginal bleeding, leakage of fluid, or dysuria. Reports vaginal discharge O: See flow sheet Gen: No apparent distress Abd: Gravid, nontender, S=D ASSESSMENT/PLAN: 1. Supervision of high risk in third trimester ([facility]) - ICD9: V23.9, ICD10: O09.93 (primary diagnosis) - Continue PNV and LDA 2. 28 weeks gestation of ([facility]) - ICD9: V22.2, ICD10: Z3A.28 - 1 hour GCT, CBC, and RPR today - Rh positive - Declines TDAP - LARC form reviewed and signed. Declines. - Depression screen negative - Opioid screen negative - plan form discussed and given to Amirah - Reviewed how to pre register through [facility] - Planning Paragard during period 3. Obesity affecting in third trimester, unspecified obesity type ([facility]) - ICD9: 649.13, ICD10: O99.213 - Pre BMI 32 4. Vaginal discharge during in third trimester ([facility]) - ICD9: 646.83, 623.5, ICD10: O26.893, N89.8 - BACTERIAL VAGINOSIS NAAT - FRANCO/TRICHOMONAS NAAT PTL precautions and kick counts reviewed. RTO in 2 weeks or sooner as needed. Lindsey Moreno APRN.JOSELYN [facility] 07-20-2024 History of Present illness Narrative EH - S: Amirah is a 18 year old female who presents at 28w3d for a routine visit. Feeling movement. Denies headache, visual changes, chest pain, shortness of breath, vaginal bleeding, leakage of fluid, or dysuria. Reports vaginal discharge O: See flow sheet Gen: No apparent distress Abd: Gravid, nontender, S=D ASSESSMENT/PLAN: 1. Supervision of high risk in third trimester ([facility]) - ICD9: V23.9, ICD10: O09.93 (primary diagnosis) - Continue PNV and LDA 2. 28 weeks gestation of ([facility]) - ICD9: V22.2, ICD10: Z3A.28 - 1 hour GCT, CBC, and RPR today - Rh positive - Declines TDAP - LARC form reviewed and signed. Declines. - Depression screen negative - Opioid screen negative - plan form discussed and given to Amirah - Reviewed how to pre register through [facility] - Planning Paragard during period 3. Obesity affecting in third trimester, unspecified obesity type ([facility]) - ICD9: 649.13, ICD10: O99.213 - Pre BMI 32 4. Vaginal discharge during in third trimester ([facility]) - ICD9: 646.83, 623.5, ICD10: O26.893, N89.8 - BACTERIAL VAGINOSIS NAAT - FRANCO/TRICHOMONAS NAAT PTL precautions and kick counts reviewed. RTO in 2 weeks or sooner as needed. Lindsey Moreno APRN.BANDAGE WINDING MACHINE OPERATOR documented in this encounter [facility] 07-20-2024 Instructions Yumiko Meza MA - 07/20/2024 8:16 AM EDT SEQUENTIAL SCREENINGS The [facility] offers sequential screenings for women who are interested in screenings for chromosomal abnormalities and certain defects during a . The sequential screen combines ultrasound and blood tests to determine the risk of chromosomal abnormalities, including Down's Syndrome (Trisomy 21) and Trisomy 18, as well as open neural tube defects including spina bifida. Ultrasound examination is performed between 11 weeks and 13 weeks gestational age. Blood tests are drawn after the ultrasound and again later in the between 15 and 21 weeks gestational age. Please let your physician know if you are interested in this testing. It will require an appointment with our gameroom technician. This is not an ultrasound performed by a physician in our office during a routine visit. SIGNS AND SYMPTOMS OF LABOR 1. Contractions every 10 minutes or more often 2. Clear, pink, or brownish fluid (water) leaking from vagina 3. Feeling that baby is pushing down, pressure 4. Low, dull backache 5. Cramps that feel like a period 6. Cramps with or without diarrhea If you notice any of the above symptoms, contact our office at [phone] and ask to speak with a nurse. After hours, you can call doctors registry at [phone] OR call [facility] at [phone] and ask to have the doctor senior director of global commercial technology solutions paged. If you consider this an emergency, dial 9-9-6 or go to your nearest emergency department. NEED HELP? Are you dealing with a violent or abusive relationship? Are you a victim of rape or sexual assult? Call [facility] ([place]) 24 hour Crisis Hotline: 584.824.3229 or 812-550-3333. MANUAL Your Guide to a Healthy manual is now on-line. Visit [email or web address] See to download your free copy documented in this encounter [facility] 07-19-2024 Telephone encounter Note noted. thanks. Castillo Mckeon MD [facility] Work Phone: 07-19-2024 Miscellaneous Notes noted. thanks. Castillo Mckeon MD 28w2d Patient called to report that she has not felt the baby move since this morning. Inquired if she did kick counts today. Patient has not. Advised that she would need to go to L&D for evaluation given the office hours. Instructed patient how to do kick counts if she wanted to see how many movements she has in an hour first. Updated H&P faxed to L&D. Kia Sheldon RN documented in this encounter [facility] 07-19-2024 Telephone encounter Note 28w2d Patient called to report that she has not felt the baby move since this morning. Inquired if she did kick counts today. Patient has not. Advised that she would need to go to L&D for evaluation given the office hours. Instructed patient how to do kick counts if she wanted to see how many movements she has in an hour first. Updated H&P faxed to L&D. Kia Sheldon RN [facility] 07-09-2024 Telephone encounter Note agree [facility] Work Phone: 07-09-2024 Miscellaneous Notes agree documented in this encounter [facility] 06-21-2024 Progress note Formatting of t his note might be different from the original. S: Amirah Woodard is a 18 year old female who presents at 24.2 weeks gestation as an add on visit for decreased movements. Patient reports feeling movements last night but unable to feel any movements today. Became concerned and wanted to make appointment. O: See flow sheet Gen: No apparent distress Abd: Gravid, nontender ASSESSMENT/PLAN: 1. 24 weeks gestation of 2. Obesity in 3. Supervision of normal first teen in second trimester 4. Decreased movements in second trimester, single or unspecified fetus - FHT 155 bpm via doppler - movement heard - Reassurance provided - Discussed kick counts after 28 weeks gestation - Call office if desires FHT via doppler before next visit La Del Castillo APRN.CNM [facility] 06-21-2024 Miscellaneous Notes S: Amirah Woodard is a 18 year old female who presents at 24.2 weeks gestation as an add on visit for decreased movements. Patient reports feeling movements last night but unable to feel any movements today. Became concerned and wanted to make appointment. O: See flow sheet Gen: No apparent distress Abd: Gravid, nontender ASSESSMENT/PLAN: 1. 24 weeks gestation of 2. Obesity in 3. Supervision of normal first teen in second trimester 4. Decreased movements in second trimester, single or unspecified fetus - FHT 155 bpm via doppler - movement heard - Reassurance provided - Discussed kick counts after 28 weeks gestation - Call office if desires FHT via doppler before next visit La Del Castillo APRN.CNM documented in this encounter [facility] 06-21-2024 Instructions Shree Santos MA - 06/21/2024 1:02 PM EDT SEQUENTIAL SCREENINGS The [facility] offers sequential screenings for women who are interested in screenings for chromosomal abnormalities and certain defects during a . The sequential screen combines ultrasound and blood tests to determine the risk of chromosomal abnormalities, including Down's Syndrome (Trisomy 21) and Trisomy 18, as well as open neural tube defects including spina bifida. Ultrasound examination is performed between 11 weeks and 13 weeks gestational age. Blood tests are drawn after the ultrasound and again later in the between 15 and 21 weeks gestational age. Please let your physician know if you are interested in this testing. It will require an appointment with our gameroom technician. This is not an ultrasound performed by a physician in our office during a routine visit. SIGNS AND SYMPTOMS OF LABOR 1. Contractions every 10 minutes or more often 2. Clear, pink, or brownish fluid (water) leaking from vagina 3. Feeling that baby is pushing down, pressure 4. Low, dull backache 5. Cramps that feel like a period 6. Cramps with or without diarrhea If you notice any of the above symptoms, contact our office at [phone] and ask to speak with a nurse. After hours, you can call doctors registry at [phone] OR call [facility] at [phone] and ask to have the doctor senior director of global commercial technology solutions paged. If you consider this an emergency, dial 9-2-6 or go to your nearest emergency department. NEED HELP? Are you dealing with a violent or abusive relationship? Are you a victim of rape or sexual assult? Call [facility] ([place]) 24 hour Crisis Hotline: 958.710.8425 or 802-181-5821. MANUAL Your Guide to a Healthy manual is now on-line. Visit [email or web address] See to download your free copy documented in this encounter [facility] 06-19-2024 Progress note Formatting of t his note might be different from the original. KJ - S: Amirah denies LOF, contractions or vaginal bleeding. She reports some discomfort in her upper abdomen and wonders if it is from the baby growing and pushing up. Also has more trouble taking a deep breath. She denies hearburn. O: 24w0d, see flow sheet SENSITIVE EXAM: Sensitive exam not performed. A/P: Assessment & Plan 24 weeks gestation of ([facility]) Orders: GESTATIONAL GLUCOSE SCREEN, 1-HOUR, 50 GRAM, NON-FASTING; Future SYPHILIS TREPONEMAL W/REFLEX; Future ANEMIA REFLEX PANEL; Future Obesity in (HCC) Screening for diabetes mellitus Orders: GESTATIONAL GLUCOSE SCREEN, 1-HOUR, 50 GRAM, NON-FASTING; Future Advised on musculoskeletal pain in . Discussed if any CP/SOB should call immediately. Janelle Marin MD [facility] 06-19-2024 Miscellaneous Notes KJ - S: Amirah denies LOF, contractions or vaginal bleeding. She reports some discomfort in her upper abdomen and wonders if it is from the baby growing and pushing up. Also has more trouble taking a deep breath. She denies hearburn. O: 24w0d, see flow sheet SENSITIVE EXAM: Sensitive exam not performed. A/P: Assessment & Plan 24 weeks gestation of ([facility]) Orders: GESTATIONAL GLUCOSE SCREEN, 1-HOUR, 50 GRAM, NON-FASTING; Future SYPHILIS TREPONEMAL W/REFLEX; Future ANEMIA REFLEX PANEL; Future Obesity in ([facility]) Screening for diabetes mellitus Orders: GESTATIONAL GLUCOSE SCREEN, 1-HOUR, 50 GRAM, NON-FASTING; Future Advised on musculoskeletal pain in . Discussed if any CP/SOB should call immediately. Janelle Marin MD documented in this encounter [facility] 06-19-2024 Instructions Yumiko Meza MA - 06/19/2024 2:34 PM EDT SEQUENTIAL SCREENINGS The [facility] offers sequential screenings for women who are interested in screenings for chromosomal abnormalities and certain defects during a . The sequential screen combines ultrasound and blood tests to determine the risk of chromosomal abnormalities, including Down's Syndrome (Trisomy 21) and Trisomy 18, as well as open neural tube defects including spina bifida. Ultrasound examination is performed between 11 weeks and 13 weeks gestational age. Blood tests are drawn after the ultrasound and again later in the between 15 and 21 weeks gestational age. Please let your physician know if you are interested in this testing. It will require an appointment with our gameroom technician. This is not an ultrasound performed by a physician in our office during a routine visit. SIGNS AND SYMPTOMS OF LABOR 1. Contractions every 10 minutes or more often 2. Clear, pink, or brownish fluid (water) leaking from vagina 3. Feeling that baby is pushing down, pressure 4. Low, dull backache 5. Cramps that feel like a period 6. Cramps with or without diarrhea If you notice any of the above symptoms, contact our office at [phone] and ask to speak with a nurse. After hours, you can call doctors registry at [phone] OR call [facility] at [phone] and ask to have the doctor senior director of global commercial technology solutions paged. If you consider this an emergency, dial 9-1-9 or go to your nearest emergency department. NEED HELP? Are you dealing with a violent or abusive relationship? Are you a victim of rape or sexual assult? Call [facility] ([place]) 24 hour Crisis Hotline: 776.881.8169 or 725-269-8391. MANUAL Your Guide to a Healthy manual is now on-line. Visit [email or web address] See to download your free copy documented in this encounter [facility] 06-06-2024 Progress note Formatting of t his note might be different from the original. S: Amirah Woodard is a 18 year old female who presents as an add on visit for cramping. She reports was working and lifting and started feeling tightening and pulling sensations. No loss of fluid or vaginal bleeding. Occasional movements. O: See flow sheet Gen: No apparent distress Abd: Gravid, nontender ASSESSMENT/PLAN: 1. Obesity in 2. Supervision of normal first teen in second trimester 3. 22 weeks gestation of 4. Cramping affecting , antepartum - UA dip- negative - Discussed round ligament pain - support belt while at work - Increase hydration- not drinking much during day - Weight lifting restriction for work - RTO - 2 weeks for already scheduled OB visit La Del Castillo APRN.CNM [facility] 06-06-2024 Miscellaneous Notes S: Amirah Woodard is a 18 year old female who presents as an add on visit for cramping. She reports was working and lifting and started feeling tightening and pulling sensations. No loss of fluid or vaginal bleeding. Occasional movements. O: See flow sheet Gen: No apparent distress Abd: Gravid, nontender ASSESSMENT/PLAN: 1. Obesity in 2. Supervision of normal first teen in second trimester 3. 22 weeks gestation of 4. Cramping affecting , antepartum - UA dip- negative - Discussed round ligament pain - support belt while at work - Increase hydration- not drinking much during day - Weight lifting restriction for work - RTO - 2 weeks for already scheduled OB visit La Del Castillo APRN.CNM documented in this encounter [facility] 06-06-2024 Instructions Shree Santos MA - 06/06/2024 1:06 PM EDT SEQUENTIAL SCREENINGS The [facility] offers sequential screenings for women who are interested in screenings for chromosomal abnormalities and certain defects during a . The sequential screen combines ultrasound and blood tests to determine the risk of chromosomal abnormalities, including Down's Syndrome (Trisomy 21) and Trisomy 18, as well as open neural tube defects including spina bifida. Ultrasound examination is performed between 11 weeks and 13 weeks gestational age. Blood tests are drawn after the ultrasound and again later in the between 15 and 21 weeks gestational age. Please let your physician know if you are interested in this testing. It will require an appointment with our gameroom technician. This is not an ultrasound performed by a physician in our office during a routine visit. SIGNS AND SYMPTOMS OF LABOR 1. Contractions every 10 minutes or more often 2. Clear, pink, or brownish fluid (water) leaking from vagina 3. Feeling that baby is pushing down, pressure 4. Low, dull backache 5. Cramps that feel like a period 6. Cramps with or without diarrhea If you notice any of the above symptoms, contact our office at [phone] and ask to speak with a nurse. After hours, you can call [facility] at [phone] OR call [facility] at [phone] and ask to have the doctor senior director of global commercial technology solutions paged. If you consider this an emergency, dial 9-1-6 or go to your nearest emergency department. NEED HELP? Are you dealing with a violent or abusive relationship? Are you a victim of rape or sexual assult? Call [facility] ([place]) 24 hour Crisis Hotline: 842.801.7973 or 031-729-3873. MANUAL Your Guide to a Healthy manual is now on-line. Visit [email or web address] See to download your free copy documented in this encounter [facility] 06-06-2024 Telephone encounter Note 22w1d Patient called in and stated she is at work today and having more ashish tan contractions. Concerned because they are uncomfortable with vaginal pressure. She has had 7 since being at work at 7am lasting from 30-60 seconds each. No bleeding or leaking fluid. She has been having more vaginal discharge that is thinner in consistency. Offered appt today and patient accepted. Vivian Adams RN [facility] [facility] 06-06-2024 Miscellaneous Notes 22w1d Patient called in and stated she is at work today and having more ashish tan contractions. Concerned because they are uncomfortable with vaginal pressure. She has had 7 since being at work at 7am lasting from 30-60 seconds each. No bleeding or leaking fluid. She has been having more vaginal discharge that is thinner in consistency. Offered appt today and patient accepted. Vivian Adams RN documented in this encounter [facility] 05-28-2024 Telephone encounter Note 2nd risk assessment form submitted 05/28/24 Tio Hutchison RN [facility] 05-28-2024 Miscellaneous Notes 2nd risk assessment form submitted 05/28/24 Tio Hutchison RN documented in this encounter [facility] 05-25-2024 Progress note Formatting of t his note might be different from the original. S: Amirah Woodard is a 18 year old female who presents at 10/09/2024, Alternate ANA Entry for a routine visit. Denies headache, visual changes, chest pain, shortness of breath, vaginal bleeding, leakage of fluid, or dysuria. Feeling well, no complaints. O: See flow sheet Gen: No apparent distress Abd: Gravid, nontender Anatomy US completed - report pending ASSESSMENT/PLAN: 1. Supervision of normal first teen in second trimester - ICD9: V22.0, ICD10: Z34.02 (primary diagnosis) 2. Obesity in - ICD9: 649.10, ICD10: O99.210 No testing 3. 20 weeks gestation of - ICD9: V22.2, ICD10: Z3A.20 Kia Lucero MD [facility] 05-25-2024 Miscellaneous Notes S: Aimrah Woodard is a 18 year old female who presents at 10/09/2024, Alternate ANA Entry for a routine visit. Denies headache, visual changes, chest pain, shortness of breath, vaginal bleeding, leakage of fluid, or dysuria. Feeling well, no complaints. O: See flow sheet Gen: No apparent distress Abd: Gravid, nontender Anatomy US completed - report pending ASSESSMENT/PLAN: 1. Supervision of normal first teen in second trimester - ICD9: V22.0, ICD10: Z34.02 (primary diagnosis) 2. Obesity in - ICD9: 649.10, ICD10: O99.210 No testing 3. 20 weeks gestation of - ICD9: V22.2, ICD10: Z3A.20 Kia Lucero MD documented in this encounter [facility] 05-25-2024 Instructions Cassie Abad MA - 05/25/2024 2:03 PM EDT SEQUENTIAL SCREENINGS The [facility] offers sequential screenings for women who are interested in screenings for chromosomal abnormalities and certain defects during a . The sequential screen combines ultrasound and blood tests to determine the risk of chromosomal abnormalities, including Down's Syndrome (Trisomy 21) and Trisomy 18, as well as open neural tube defects including spina bifida. Ultrasound examination is performed between 11 weeks and 13 weeks gestational age. Blood tests are drawn after the ultrasound and again later in the between 15 and 21 weeks gestational age. Please let your physician know if you are interested in this testing. It will require an appointment with our gameroom technician. This is not an ultrasound performed by a physician in our office during a routine visit. SIGNS AND SYMPTOMS OF LABOR 1. Contractions every 10 minutes or more often 2. Clear, pink, or brownish fluid (water) leaking from vagina 3. Feeling that baby is pushing down, pressure 4. Low, dull backache 5. Cramps that feel like a period 6. Cramps with or without diarrhea If you notice any of the above symptoms, contact our office at [phone] and ask to speak with a nurse. After hours, you can call doctors registry at [phone] OR call [facility] at [phone] and ask to have the doctor senior director of global commercial technology solutions paged. If you consider this an emergency, dial 9-1-3 or go to your nearest emergency department. NEED HELP? Are you dealing with a violent or abusive relationship? Are you a victim of rape or sexual assult? Call [facility] ([place]) 24 hour Crisis Hotline: 805.809.4500 or 406-268-7536. MANUAL Your Guide to a Healthy manual is now on-line. Visit [email or web address] See to download your free copy documented in this encounter [facility] 05-01-2024 Telephone encounter Note Left message for patient to call office. Kia Sheldon RN [facility] 05-01-2024 Miscellaneous Notes Left message for patient to call office. Kia Sheldon RN Noted & agree with recommendations. If patient has increased LOF tonight I recommend going to [facility]. Janelle Marin MD 17w0d Calling concerned about leaking fluid. Noticed underwear were saturated this afternoon and didn't seem like normal discharge, was just liquid like consistency. From what she can tell clear in color. No vaginal odor, itching or irritation. Wasn't enough to soak through onto pants. Advised to put on pad and continue to monitor. Advised discharge can increase as continues. To call if continues to be larger amount, discolored, odor, itching or irritation with it. Please advise. Vivian Adams RN documented in this encounter [facility] 05-01-2024 Telephone encounter Note Noted & agree with recommendations. If patient has increased LOF tonight I recommend going to [facility]. Janelle Marin MD [facility] Work Phone: 05-01-2024 Telephone encounter Note 17w0d Calling concerned about leaking fluid. Noticed underwear were saturated this afternoon and didn't seem like normal discharge, was just liquid like consistency. From what she can tell clear in color. No vaginal odor, itching or irritation. Wasn't enough to soak through onto pants. Advised to put on pad and continue to monitor. Advised discharge can increase as continues. To call if continues to be larger amount, discolored, odor, itching or irritation with it. Please advise. Vivian Adams RN [facility] 04-27-2024 Progress note Formatting of t his note might be different from the original. MEKA-S: Amirah Woodard is a 18 year old female who presents at 16w3d with ANA:10/09/2024, Alternate ANA Entry for a routine visit. Denies headache, visual changes, chest pain, shortness of breath, vaginal bleeding, leakage of fluid, or dysuria. Admits to feeling a little dizzy at time and stars with positional changes. Feels her heart flutter but denies chest pain or palpitations. Wears compression stockings at work. O: See flow sheet Gen: No apparent distress Abd: Gravid, nontender ASSESSMENT/PLAN: 1. Supervision of normal first teen in second trimester - Anatomy US at 20 wk -Started ASA at 12 wks 2. Obesity in 3. 16 weeks gestation of -Pregravid BMi 32, no testing 4. Dizziness -Reviewed blood volume increasing with . Slow positional changes, compression stockings, increased hydration. If worsens or continues to notify the office and can order EKG or referral to cardiology/syncopal clinic if needed. Hgb 13.9 and normal range reviewed with patient. PTL precautions reviewed and when to call RTO in 4 weeks Delfina Watson APRN.CNM [facility] 04-27-2024 Miscellaneous Notes MEKA-S: Amirah Woodard is a 18 year old female who presents at 16w3d with ANA:10/09/2024, Alternate ANA Entry for a routine visit. Denies headache, visual changes, chest pain, shortness of breath, vaginal bleeding, leakage of fluid, or dysuria. Admits to feeling a little dizzy at time and stars with positional changes. Feels her heart flutter but denies chest pain or palpitations. Wears compression stockings at work. O: See flow sheet Gen: No apparent distress Abd: Gravid, nontender ASSESSMENT/PLAN: 1. Supervision of normal first teen in second trimester - Anatomy US at 20 wk -Started ASA at 12 wks 2. Obesity in 3. 16 weeks gestation of -Pregravid BMi 32, no testing 4. Dizziness -Reviewed blood volume increasing with . Slow positional changes, compression stockings, increased hydration. If worsens or continues to notify the office and can order EKG or referral to cardiology/syncopal clinic if needed. Hgb 13.9 and normal range reviewed with patient. PTL precautions reviewed and when to call RTO in 4 weeks Delfina Watson APRN.CNM documented in this encounter [facility] 04-27-2024 Instructions Shree Santos MA - 04/27/2024 1:04 PM EST SEQUENTIAL SCREENINGS The [facility] offers sequential screenings for women who are interested in screenings for chromosomal abnormalities and certain defects during a . The sequential screen combines ultrasound and blood tests to determine the risk of chromosomal abnormalities, including Down's Syndrome (Trisomy 21) and Trisomy 18, as well as open neural tube defects including spina bifida. Ultrasound examination is performed between 11 weeks and 13 weeks gestational age. Blood tests are drawn after the ultrasound and again later in the between 15 and 21 weeks gestational age. Please let your physician know if you are interested in this testing. It will require an appointment with our gameroom technician. This is not an ultrasound performed by a physician in our office during a routine visit. SIGNS AND SYMPTOMS OF LABOR 1. Contractions every 10 minutes or more often 2. Clear, pink, or brownish fluid (water) leaking from vagina 3. Feeling that baby is pushing down, pressure 4. Low, dull backache 5. Cramps that feel like a period 6. Cramps with or without diarrhea If you notice any of the above symptoms, contact our office at [phone] and ask to speak with a nurse. After hours, you can call doctors registry at [phone] OR call [facility] at [phone] and ask to have the doctor senior director of global commercial technology solutions paged. If you consider this an emergency, dial 2-- or go to your nearest emergency department. NEED HELP? Are you dealing with a violent or abusive relationship? Are you a victim of rape or sexual assult? Call [facility] ([place]) 24 hour Crisis Hotline: 240.420.7746 or 699-971-9994. MANUAL Your Guide to a Healthy manual is now on-line. Visit [email or web address] to download your free copy documented in this encounter [facility] 04-13-2024 Telephone encounter Note Patient notified and voiced understanding. Caroline Mora RN [facility] 04-13-2024 Miscellaneous Notes Patient notified and voiced understanding. Caroline Mora RN Agree with plan of care. May try wearing compression stockings if on feet as well. This can help with blood flow back to to heart/head. La Del Castillo APRN.CNM 14w3d Few weeks Pt states she has noticed that when she stands up/bends/squats/laying to sit she gets light headed/vision gets spotty/feeling as though she is going to pass out. States her HR ranges from 90-120/130 on watch and pulse ox. Sometimes feeling heart race.Seems to be getting worse. More frequently, noticing heart skipping beats. Pt has asthma. Pt reports shortness of breath is present only with activity. Pt denies CP/Chest heaviness. Swelling noted in legs-elevating legs. Sitting for few minutes before standing Drinking approx 200-250mL daily.Eating enough protein. Feels like getting enough sleep.Taking vitamin. Does not feel like she's under a of stress. Pt states she saw MEKA 04/03/24 and states these sx were present then and did not mention and feels they are getting worse. Advised Pt to continue taking , continue eating protein filled diet, drinking plenty of fluids, elevating legs when sitting, get rest when she can, to get up slowly from a sitting to standing position, to not drive if dizzy/light headed, and to go to ER if she begins with CP/or shortness of breath at rest and/or worsening with activity. Pt's next appt isn't until 04/27/24. Please advise. Marisela Lopez RN documented in this encounter [facility] 04-13-2024 Telephone encounter Note Agree with plan of care. May try wearing compression stockings if on feet as well. This can help with blood flow back to to heart/head. La Del Castillo APRN.CNM [facility] Work Phone: 04-13-2024 Telephone encounter Note 14w3d Few weeks Pt states she has noticed that when she stands up/bends/squats/laying to sit she gets light headed/vision gets spotty/feeling as though she is going to pass out. States her HR ranges from 90-120/130 on watch and pulse ox. Sometimes feeling heart race.Seems to be getting worse. More frequently, noticing heart skipping beats. Pt has asthma. Pt reports shortness of breath is present only with activity. Pt denies CP/Chest heaviness. Swelling noted in legs-elevating legs. Sitting for few minutes before standing Drinking approx 200-250mL daily.Eating enough protein. Feels like getting enough sleep.Taking vitamin. Does not feel like she's under a of stress. Pt states she saw MEKA 04/03/24 and states these sx were present then and did not mention and feels they are getting worse. Advised Pt to continue taking , continue eating protein filled diet, drinking plenty of fluids, elevating legs when sitting, get rest when she can, to get up slowly from a sitting to standing position, to not drive if dizzy/light headed, and to go to ER if she begins with CP/or shortness of breath at rest and/or worsening with activity. Pt's next appt isn't until 04/27/24. Please advise. Marisela Lopez RN [facility] 04-10-2024 Telephone encounter Note Refill provided. Has adult medicine appointment in August. Thanks. Josiane Goodwin APRN.BANDAGE WINDING MACHINE OPERATOR [facility] 04-10-2024 Miscellaneous Notes Refill provided. Has adult medicine appointment in August. Thanks. Josiane Goodwin APRN.BANDAGE WINDING MACHINE OPERATOR Last WCC: 10/31/2023 Verify RX Benefits Completed Last medication refill date: 10/28/2023 Requesting 30 day supply Retail pharmacy updated: Completed Patient aware RX will be sent to pharmacy. No need to notify patient. Health Maintenance due: Meningococcal B Vaccine: Consider Based On Risk(1 of 2 - Patient Seeks Protection) Never done Asthma Action Plan due on 04/27/2021 Spirometry Never done Covid-19 Vaccine( season) due on 11/06/2023 Eloisa Suarez LPN documented in this encounter [facility] 04-10-2024 Telephone encounter Note Last WCC: 10/31/2023 Verify RX Benefits Completed Last medication refill date: 10/28/2023 Requesting 30 day supply Retail pharmacy updated: Completed Patient aware RX will be sent to pharmacy. No need to notify patient. Health Maintenance due: Meningococcal B Vaccine: Consider Based On Risk(1 of 2 - Patient Seeks Protection) Never done Asthma Action Plan due on 04/27/2021 Spirometry Never done Covid-19 Vaccine( season) due on 11/06/2023 Eloisa Suarez LPN [facility] 04-03-2024 Progress note Formatting of t his note might be different from the original. MEKA-S: Amirah Woodard is a 18 year old female who presents at 13w0d with ANA: 10/09/2024, Alternate ANA Entry for a routine visit. Denies headache, visual changes, chest pain, shortness of breath, vaginal bleeding, leakage of fluid, or dysuria. Feeling well, no complaints. O: See flow sheet Gen: No apparent distress Abd: Gravid, nontender ASSESSMENT/PLAN: 1. Supervision of normal first teen in first trimester - OBSTETRIC ULTRASOUND WHI -PN labs and NIPT reviewed - Anatomy US at 20 wk -Started ASA at 12 wks 2. 13 weeks gestation of 3. Obesity in -Pregravid BMi 32, no testing PTL precautions reviewed and when to call RTO in 4 weeks Delfina Watson APRN.BELGICA [facility] 04-03-2024 Miscellaneous Notes MEKA-S: Amirah Woodard is a 18 year old female who presents at 13w0d with ANA: 10/09/2024, Alternate ANA Entry for a routine visit. Denies headache, visual changes, chest pain, shortness of breath, vaginal bleeding, leakage of fluid, or dysuria. Feeling well, no complaints. O: See flow sheet Gen: No apparent distress Abd: Gravid, nontender ASSESSMENT/PLAN: 1. Supervision of normal first teen in first trimester - OBSTETRIC ULTRASOUND WHI -PN labs and NIPT reviewed - Anatomy US at 20 wk -Started ASA at 12 wks 2. 13 weeks gestation of 3. Obesity in -Pregravid BMi 32, no testing PTL precautions reviewed and when to call RTO in 4 weeks Delfina Watson APRN.CNM documented in this encounter [facility] 04-03-2024 Instructions Leah Villaseñor MA - 04/03/2024 3:53 PM EST SEQUENTIAL SCREENINGS The [facility] offers sequential screenings for women who are interested in screenings for chromosomal abnormalities and certain defects during a . The sequential screen combines ultrasound and blood tests to determine the risk of chromosomal abnormalities, including Down's Syndrome (Trisomy 21) and Trisomy 18, as well as open neural tube defects including spina bifida. Ultrasound examination is performed between 11 weeks and 13 weeks gestational age. Blood tests are drawn after the ultrasound and again later in the between 15 and 21 weeks gestational age. Please let your physician know if you are interested in this testing. It will require an appointment with our gameroom technician. This is not an ultrasound performed by a physician in our office during a routine visit. SIGNS AND SYMPTOMS OF LABOR 1. Contractions every 10 minutes or more often 2. Clear, pink, or brownish fluid (water) leaking from vagina 3. Feeling that baby is pushing down, pressure 4. Low, dull backache 5. Cramps that feel like a period 6. Cramps with or without diarrhea If you notice any of the above symptoms, contact our office at [phone] and ask to speak with a nurse. After hours, you can call doctors registry at [phone] OR call [facility] at [phone] and ask to have the doctor senior director of global commercial technology solutions paged. If you consider this an emergency, dial 9--9 or go to your nearest emergency department. NEED HELP? Are you dealing with a violent or abusive relationship? Are you a victim of rape or sexual assult? Call [facility] ([place]) 24 hour Crisis Hotline: 162.310.4623 or 724-282-2870. MANUAL Your Guide to a Healthy manual is now on-line. Visit [email or web address] See to download your free copy documented in this encounter [facility] 03-28-2024 Progress note Formatting of t his note might be different from the original. Primigravida at 12 weeks c/o vaginal itching and burning subsequent to a course of amoxicillin for a sinus infection. Sx began 5 days after beginning tx. Denies vaginal bleeding and slightly increased discharge Pelvic exam. 12 week uterus. moderate clumpy white discharge. Yeast culture collected and submitted. RTO 04/03 routine [facility] Clinical yeast infection - tx monistat. Duncan Munguia MD [facility] Work Phone: 03-28-2024 Miscellaneous Notes Primigravida at 12 weeks c/o vaginal itching and burning subsequent to a course of amoxicillin for a sinus infection. Sx began 5 days after beginning tx. Denies vaginal bleeding and slightly increased discharge Pelvic exam. 12 week uterus. moderate clumpy white discharge. Yeast culture collected and submitted. RTO 04/03 routine [facility] Clinical yeast infection - tx monistat. Duncan Munguia MD documented in this encounter [facility] 03-28-2024 Yumiko Jimenez MA - 03/28/2024 9:08 AM EST SEQUENTIAL SCREENINGS The [facility] offers sequential screenings for women who are interested in screenings for chromosomal abnormalities and certain defects during a . The sequential screen combines ultrasound and blood tests to determine the risk of chromosomal abnormalities, including Down's Syndrome (Trisomy 21) and Trisomy 18, as well as open neural tube defects including spina bifida. Ultrasound examination is performed between 11 weeks and 13 weeks gestational age. Blood tests are drawn after the ultrasound and again later in the between 15 and 21 weeks gestational age. Please let your physician know if you are interested in this testing. It will require an appointment with our gameroom technician. This is not an ultrasound performed by a physician in our office during a routine visit. SIGNS AND SYMPTOMS OF LABOR 1. Contractions every 10 minutes or more often 2. Clear, pink, or brownish fluid (water) leaking from vagina 3. Feeling that baby is pushing down, pressure 4. Low, dull backache 5. Cramps that feel like a period 6. Cramps with or without diarrhea If you notice any of the above symptoms, contact our office at [phone] and ask to speak with a nurse. After hours, you can call doctors registry at [phone] OR call [facility] at [phone] and ask to have the doctor senior director of global commercial technology solutions paged. If you consider this an emergency, dial 2--8 or go to your nearest emergency department. NEED HELP? Are you dealing with a violent or abusive relationship? Are you a victim of rape or sexual assult? Call [facility] ([place]) 24 hour Crisis Hotline: 846.867.1097 or 590-845-7485. MANUAL Your Guide to a Healthy manual is now on-line. Visit [email or web address] See to download your free copy documented in this encounter [facility] 03-22-2024 Telephone encounter Note Patient notified and voiced understanding. Caroline Mora RN [facility] 03-22-2024 Miscellaneous Notes Patient notified and voiced understanding. Caroline Mora RN Yes. La Del Castillo APRN.CNM Patient 11w2d calling with questions in regards to medication she was prescribed for a sinus infection. Patient was prescribed Amoxicillin 1000 mg BID. Patient wanting to know if that dosage is ok with . Caroline Mora RN documented in this encounter [facility] 03-22-2024 Telephone encounter Note Yes. La Del Castillo APRN.CNM [facility] Work Phone: 03-22-2024 Telephone encounter Note Patient 11w2d calling with questions in regards to medication she was prescribed for a sinus infection. Patient was prescribed Amoxicillin 1000 mg BID. Patient wanting to know if that dosage is ok with . Caroline Mora RN [facility] 03-19-2024 Note HNO ID: [id number] Author: JOSIANE GOODWIN APRN.BANDAGE WINDING MACHINE OPERATOR Service: ? Author Type: Nurse Practitioner Type: Progress Notes Filed: 03/20/2024 21:03 Note Text: PEDIATRIC SICK VISIT SUBJECTIVE: Amirah Woodard is a 18 year old Patient presents with: Cough: X 1.5 wks referral to adult doctor: Currently 11 wks History was obtained from: patient and EMR Current symptoms: Was at last week Has shortness of breath Mucous Coming up all the time, not just with coughing Cough for about a week Sometimes dry Sometimes productive No XR Did run strep at and that was negative Coughing will not go away Headache off and on In neck Others frontal Does not feel that nose is super stuffy Sometimes so dry that it hurts to breathe. 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 Medications: aspirin, enteric coated (ECOTRIN LOW STRENGTH) 81 mg EC tablet Take 1 tablet by mouth once daily. vit no.124/iron/folic ( VITAMIN ORAL) Take 1 tablet by mouth once daily. albuterol HFA (PROVENTIL HFA, VENTOLIN HFA) 90 mcg/actuation inhaler Inhale 2 Puffs as instructed every 4 hours as needed for wheezing/shortness of breath. OBJECTIVE: Pulse 84 Temp 36.8 ?C (98.2 ?F) (Temporal) Resp 16 Wt 87.6 kg (193 lb 2 oz) LMP 01/03/2024 (Exact Date) BMI 33.15 kg/m? General: alert and active in no apparent distress Eyes: conjunctiva clear Ears: TMs translucent bilaterally, normal landmarks noted Nose: clear rhinorrhea/nasal congestion, purulent rhinorrhea, mucosal erythema, mucosal edema OP: no lesions, no erythema Neck: supple, no adenopathy Lungs: clear to auscultation bilaterally, good air exchange, no retractions CVS: Normal rate, regular rhythm, no murmur Abdomen: soft, nondistended Skin: No rashes, lesions or skin changes Head: normocephalic Neuro: No focal deficits or abnormal findings present ASSESSMENT/PLAN: Encounter Diagnosis ICD-10-CM 1. Acute non-recurrent frontal sinusitis J01.10 amoxicillin (AMOXIL) 500 mg capsule DISCONTINUED: amoxicillin (AMOXIL) 500 mg capsule SINUSITIS PLAN: - Antibiotics: Amoxicillin High Dose - Verified safety with - Amoxicillin appears more safe than Augmentin but both safe. - Follow up as needed if symptoms not resolved after treatment or sooner if worsening symptoms. - Appointment scheduled with Adult provider while in office today. Josiane Goodwin APRN.[facility] 03-19-2024 History of Present illness Narrative PEDIATRIC SICK VISIT SUBJECTIVE: Amirah Woodard is a 18 year old Patient presents with: Cough: X 1.5 wks referral to adult doctor: Currently 11 wks History was obtained from: patient and EMR Current symptoms: Was at last week Has shortness of breath Mucous Coming up all the time, not just with coughing Cough for about a week Sometimes dry Sometimes productive No XR Did run strep at and that was negative Coughing will not go away Headache off and on In neck Others frontal Does not feel that nose is super stuffy Sometimes so dry that it hurts to breathe. 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 Medications: aspirin, enteric coated (ECOTRIN LOW STRENGTH) 81 mg EC tablet Take 1 tablet by mouth once daily. vit no.124/iron/folic ( VITAMIN ORAL) Take 1 tablet by mouth once daily. albuterol HFA (PROVENTIL HFA, VENTOLIN HFA) 90 mcg/actuation inhaler Inhale 2 Puffs as instructed every 4 hours as needed for wheezing/shortness of breath. OBJECTIVE: Pulse 84 Temp 36.8 C (98.2 F) (Temporal) Resp 16 Wt 87.6 kg (193 lb 2 oz) LMP 01/03/2024 (Exact Date) BMI 33.15 kg/m General: alert and active in no apparent distress Eyes: conjunctiva clear Ears: TMs translucent bilaterally, normal landmarks noted Nose: clear rhinorrhea/nasal congestion, purulent rhinorrhea, mucosal erythema, mucosal edema OP: no lesions, no erythema Neck: supple, no adenopathy Lungs: clear to auscultation bilaterally, good air exchange, no retractions CVS: Normal rate, regular rhythm, no murmur Abdomen: soft, nondistended Skin: No rashes, lesions or skin changes Head: normocephalic Neuro: No focal deficits or abnormal findings present ASSESSMENT/PLAN: Encounter Diagnosis ICD-10-CM 1. Acute non-recurrent frontal sinusitis J01.10 amoxicillin (AMOXIL) 500 mg capsule DISCONTINUED: amoxicillin (AMOXIL) 500 mg capsule SINUSITIS PLAN: - Antibiotics: Amoxicillin High Dose - Verified safety with - Amoxicillin appears more safe than Augmentin but both safe. - Follow up as needed if symptoms not resolved after treatment or sooner if worsening symptoms. - Appointment scheduled with Adult provider while in office today. Josiane Goodwin APRN.BANDAGE WINDING MACHINE OPERATOR documented in this encounter [facility] 03-13-2024 Note HNO ID: [id number] Author: ROBERTO POWERS PA-C Service: ? Author Type: Physician Adjunct Professor Type: Progress Notes Filed: 03/13/2024 12:33 Note Text: This note was created using [employer]. Subjective Amirah Woodard is a 18 year old female. Patient is a 18-year-old female who complains of recurring episodes of sore throat that she has been experiencing for the past 2 weeks. Patient denies congestion, sinus pressure or ear pain but does report a mild cough. Patient denies fever, chills or myalgia. Patient is in her first trimester at 10 weeks. Patient is taking vitamins. Patient has no history of GERD and is not experiencing hyperemesis episodes. Sore Throat Review of Systems HENT: Positive for sore throat. All other systems reviewed and are negative. Objective BP 110/72 Pulse 87 Temp 36.4 ?C (97.6 ?F) (Tympanic) Resp 18 Wt 87.1 kg (192 lb 0.3 oz) LMP 01/03/2024 (Exact Date) SpO2 98% BMI 32.96 kg/m? Physical Exam Vitals and nursing note reviewed. Constitutional: Appearance: Normal appearance. She is normal weight. HENT: Head: Normocephalic and atraumatic. Right Ear: Tympanic membrane, ear canal and external ear normal. Left Ear: Tympanic membrane, ear canal and external ear normal. Nose: Nose normal. Mouth/Throat: Mouth: Mucous membranes are moist. Pharynx: Oropharynx is clear. No oropharyngeal exudate or posterior oropharyngeal erythema. Eyes: Extraocular Movements: Extraocular movements intact. Conjunctiva/sclera: Conjunctivae normal. Pupils: Pupils are equal, round, and reactive to light. Cardiovascular: Rate and Rhythm: Normal rate and regular rhythm. Pulses: Normal pulses. Heart sounds: Normal heart sounds. Pulmonary: Effort: Pulmonary effort is normal. Breath sounds: Normal breath sounds. Musculoskeletal: Cervical back: Normal range of motion and neck supple. Skin: General: Skin is warm and dry. Capillary Refill: Capillary refill takes less than 2 seconds. Neurological: General: No focal deficit present. Mental Status: She is alert and oriented to person, place, and time. Psychiatric: Mood and Affect: Mood normal. Behavior: Behavior normal. Thought Content: Thought content normal. Judgment: Judgment normal. Assessment and Plan Fully unremarkable physical exam findings as noted above. Patient appears to be in excellent health at the present time. Rapid strep PCR is negative. Supportive care instructions were discussed and the patient was advised to see her [employer] MAINFRAME SYSTEMS PROGRAMMER for further evaluation and management. CLINICAL IMPRESSION: Sore Throat ASSESSMENT/PLAN: 1. Sore throat - ICD9: 462, ICD10: J02.9 - STREP A MOLECULAR (POC) Roberto Powers PA-C [facility] 03-13-2024 History of Present illness Narrative This note was created using [employer]. Subjective Amirah Woodard is a 18 year old female. Patient is a 18-year-old female who complains of recurring episodes of sore throat that she has been experiencing for the past 2 weeks. Patient denies congestion, sinus pressure or ear pain but does report a mild cough. Patient denies fever, chills or myalgia. Patient is in her first trimester at 10 weeks. Patient is taking vitamins. Patient has no history of GERD and is not experiencing hyperemesis episodes. Sore Throat Review of Systems HENT: Positive for sore throat. All other systems reviewed and are negative. Objective BP 110/72 Pulse 87 Temp 36.4 C (97.6 F) (Tympanic) Resp 18 Wt 87.1 kg (192 lb 0.3 oz) LMP 01/03/2024 (Exact Date) SpO2 98% BMI 32.96 kg/m Physical Exam Vitals and nursing note reviewed. Constitutional: Appearance: Normal appearance. She is normal weight. HENT: Head: Normocephalic and atraumatic. Right Ear: Tympanic membrane, ear canal and external ear normal. Left Ear: Tympanic membrane, ear canal and external ear normal. Nose: Nose normal. Mouth/Throat: Mouth: Mucous membranes are moist. Pharynx: Oropharynx is clear. No oropharyngeal exudate or posterior oropharyngeal erythema. Eyes: Extraocular Movements: Extraocular movements intact. Conjunctiva/sclera: Conjunctivae normal. Pupils: Pupils are equal, round, and reactive to light. Cardiovascular: Rate and Rhythm: Normal rate and regular rhythm. Pulses: Normal pulses. Heart sounds: Normal heart sounds. Pulmonary: Effort: Pulmonary effort is normal. Breath sounds: Normal breath sounds. Musculoskeletal: Cervical back: Normal range of motion and neck supple. Skin: General: Skin is warm and dry. Capillary Refill: Capillary refill takes less than 2 seconds. Neurological: General: No focal deficit present. Mental Status: She is alert and oriented to person, place, and time. Psychiatric: Mood and Affect: Mood normal. Behavior: Behavior normal. Thought Content: Thought content normal. Judgment: Judgment normal. Assessment and Plan Fully unremarkable physical exam findings as noted above. Patient appears to be in excellent health at the present time. Rapid strep PCR is negative. Supportive care instructions were discussed and the patient was advised to see her [employer] MAINFRAME SYSTEMS PROGRAMMER for further evaluation and management. CLINICAL IMPRESSION: Sore Throat ASSESSMENT/PLAN: 1. Sore throat - ICD9: 462, ICD10: J02.9 - STREP A MOLECULAR (POC) Roberto Powers PA-C documented in this encounter [facility] 03-10-2024 Telephone encounter Note Reason for Call: 9 weeks , dizziness and felt like she would pass out, vision dark vomiting Denies fever Outcome: Patient warm conferenced to main campus paper wrapping machine operator to assist patient in connecting patient to senior director of global commercial technology solutions provider for TIRE SERVICER Nilda Stiles APRN. [facility] 03-10-2024 Miscellaneous Notes Reason for Call: 9 weeks , dizziness and felt like she would pass out, vision dark vomiting Denies fever Outcome: Patient warm conferenced to main campus paper wrapping machine operator to assist patient in connecting patient to senior director of global commercial technology solutions provider for TIRE SERVICER Nilda Stiles APRN. documented in this encounter [facility] 02-23-2024 Telephone encounter Note 1st risk assessment form submitted 02/23/24. Pauline Au RN [facility] 02-23-2024 Miscellaneous Notes 1st risk assessment form submitted 02/23/24. Pauline Au RN documented in this encounter [facility] 02-16-2024 Note HNO ID: [id number] Author: NILDA STILES APRN.BANDAGE WINDING MACHINE OPERATOR Service: ? Author Type: Nurse Practitioner Type: Progress Notes Filed: 02/21/2024 09:02 Note Text: 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 INITIAL OB ASSESSMENT HPI: Amirah is a 18 year old White Female here to establish Obstetrical Care. Patient's last menstrual period was 01/03/2024 (exact date). from OB Dating Form. was unplanned but accepted Complaints: Abdominal pain, intermittent constipation with lower abd pain. OB History T0 L0 SAB0 IAB0 Ectopic0 Multiple0 Live Births0 Previous history: Prior : never History of 4th degree laceration: NA History of shoulder dystocia: No History of Hypertensive disorders including pre-eclampsia or gestational hypertension: No History of gestational diabetes: No Patient's Risk Screening for delivery: Have you had a prior spencer between 20w and 36w6d? No How many pregnancies have you had before? 0 Did you have a previous baby with a GBS Infection? No Please select all that apply for any prior : N/A MEDICAL/PSYCHOSOCIAL HISTORY: History of hemorrhage or bleeding concerns: No Thyroid Disease: No History of chronic hypertension: No History of pre-existing diabetes: No No results found for: ABORHD No weight on file for this encounter. Last Pap: Never had one History of abnormal pap: No Prior treatment for cervical dysplasia: none. Last HPV: History of STDs: None Partner History of STDs: None Did you have a partner with Herpes? No Tobacco use: No E-Cigarette/Vaping Use: No Caffeine use: Yes Drug use: No Alcohol use: Yes Multivitamin with Folic acid: Yes Would refuse blood transfusion if medically necessary: No Social Needs: How often does this describe you? I don't have enough money to pay my bills: Never Within the past 12 months, have you worried that your food would run out before you had money to buy more? Never In the past 12 months, has lack of reliable transportation kept you from going to medical appointments or work, or from getting things needed for daily living? Never In the past 12 months, have you had any concerns about having a place to live, or about the condition or quality of your housing? Never Would you like more information on any of the following (please check all that apply)? Social History: Do you have any history of depression, anxiety, PTSD, or other mood problems? No Do you have a history of abuse or trauma that may impact your experience? No Are you currently employed? Yes Depression/Anxiety Screening: denies symptoms of depression. OB Depression and Anxiety Screening- This Encounter (since 02/20/2024) None Genetic Screening: Partner present: No Patient verbalized knowledge of partner family health history: Yes Do you or your partner have any personal or family history of defects not previously discussed: No Do you have history of a complicated by anomaly, genetic condition, or demise: No OB Risk Screening: Completed, no positive findings documented. Marital Status:Single Partner: Name: Rojelio Age: 18 Occupation: Student/ Studying Criminal justice Gender: Male PAST MEDICAL HISTORY Diagnosis Date Exercise-induced asthma with acute exacerbation 08/09/2016 Fracture, fibula 10/01/2023 Left PAST SURGICAL HISTORY Procedure Laterality Date EXTRACTION ERUPTED TOOTH/EXR 07/2023 INSERT INTRAUTERINE DEVICE 12/21/2022 removed IUD REMOVAL 05/2023 TONSILLECTOMY HX 03/24/2021 Current Outpatient Medications Medication Sig Dispense Refill vit no.124/iron/folic ( VITAMIN ORAL) Take 1 tablet by mouth once daily. albuterol HFA (PROVENTIL HFA, VENTOLIN HFA) 90 mcg/actuation inhaler Inhale 2 Puffs as instructed every 4 hours as needed for wheezing/shortness of breath. 18 g 0 ketoconazole (NIZORAL) 2 % shampoo Apply small amount every 2 - 3 days for up to 8 weeks, then as needed. Lather, massage into affected areas. Allow shampoo remain on the affected areas for 5 minutes and then rinse off the shampoo. 120 mL 1 fluticasone (FLONASE) 50 mcg/actuation nasal spray Use 1 [place] in each nostril once daily. (Patient not taking: Reported on 02/16/2024) 1 Each 3 loratadine (CLARITIN) 10 mg tablet Take 10 mg by mouth once daily. (Patient not taking: Reported on 02/16/2024) Olopatadine (PATADAY ONCE DAILY RELIEF) 0.2 % drop Use 1 Drop in both eyes once daily. (Patient not taking: Reported on 02/16/2024) 5 mL 3 No current facility-administered medications for this visit. Allergies As of Date: 02/21/2024 Allergen Noted Reaction SEASONAL ALLERGIES 12/29/2017 Other: See Comments Fully Assessed 02/16/2024 Does patient have penicillin allergy: No REVIEW OF SYSTEMS: GENERAL: Negative for: Fever or Chills HEENT: Negative for: Headache, Impaired Vision, Ringing (more content not included)... 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 INITIAL OB ASSESSMENT HPI: Amirah is a 18 year old White Female here to establish Obstetrical Care. Patient's last menstrual period was 01/03/2024 (exact date). from OB Dating Form. was unplanned but accepted Complaints: Abdominal pain, intermittent constipation with lower abd pain. OB History T0 L0 SAB0 IAB0 Ectopic0 Multiple0 Live Births0 Previous history: Prior : never History of 4th degree laceration: NA History of shoulder dystocia: No History of Hypertensive disorders including pre-eclampsia or gestational hypertension: No History of gestational diabetes: No Patient's Risk Screening for delivery: Have you had a prior spencer between 20w and 36w6d? No How many pregnancies have you had before? 0 Did you have a previous baby with a GBS Infection? No Please select all that apply for any prior : N/A MEDICAL/PSYCHOSOCIAL HISTORY: History of hemorrhage or bleeding concerns: No Thyroid Disease: No History of chronic hypertension: No History of pre-existing diabetes: No No results found for: ABORHD No weight on file for this encounter. Last Pap: Never had one History of abnormal pap: No Prior treatment for cervical dysplasia: none. Last HPV: History of STDs: None Partner History of STDs: None Did you have a partner with Herpes? No Tobacco use: No E-Cigarette/Vaping Use: No Caffeine use: Yes Drug use: No Alcohol use: Yes Multivitamin with Folic acid: Yes Would refuse blood transfusion if medically necessary: No Social Needs: How often does this describe you? I don't have enough money to pay my bills: Never Within the past 12 months, have you worried that your food would run out before you had money to buy more? Never In the past 12 months, has lack of reliable transportation kept you from going to medical appointments or work, or from getting things needed for daily living? Never In the past 12 months, have you had any concerns about having a place to live, or about the condition or quality of your housing? Never Would you like more information on any of the following (please check all that apply)? Social History: Do you have any history of depression, anxiety, PTSD, or other mood problems? No Do you have a history of abuse or trauma that may impact your experience? No Are you currently employed? Yes Depression/Anxiety Screening: denies symptoms of depression. OB Depression and Anxiety Screening- This Encounter (since 02/20/2024) None Genetic Screening: Partner present: No Patient verbalized knowledge of partner family health history: Yes Do you or your partner have any personal or family history of defects not previously discussed: No Do you have history of a complicated by anomaly, genetic condition, or demise: No OB Risk Screening: Completed, no positive findings documented. Marital Status:Single Partner: Name: Rojelio Age: 18 Occupation: Student/ Studying Criminal justice Gender: Male PAST MEDICAL HISTORY Diagnosis Date Exercise-induced asthma with acute exacerbation 08/09/2016 Fracture, fibula 10/01/2023 Left PAST SURGICAL HISTORY Procedure Laterality Date EXTRACTION ERUPTED TOOTH/EXR 07/2023 INSERT INTRAUTERINE DEVICE 12/21/2022 removed IUD REMOVAL 05/2023 TONSILLECTOMY HX 03/24/2021 Current Outpatient Medications Medication Sig Dispense Refill vit no.124/iron/folic ( VITAMIN ORAL) Take 1 tablet by mouth once daily. albuterol HFA (PROVENTIL HFA, VENTOLIN HFA) 90 mcg/actuation inhaler Inhale 2 Puffs as instructed every 4 hours as needed for wheezing/shortness of breath. 18 g 0 ketoconazole (NIZORAL) 2 % shampoo Apply small amount every 2 - 3 days for up to 8 weeks, then as needed. Lather, massage into affected areas. Allow shampoo remain on the affected areas for 5 minutes and then rinse off the shampoo. 120 mL 1 fluticasone (FLONASE) 50 mcg/actuation nasal spray Use 1 [place] in each nostril once daily. (Patient not taking: Reported on 02/16/2024) 1 Each 3 loratadine (CLARITIN) 10 mg tablet Take 10 mg by mouth once daily. (Patient not taking: Reported on 02/16/2024) Olopatadine (PATADAY ONCE DAILY RELIEF) 0.2 % drop Use 1 Drop in both eyes once daily. (Patient not taking: Reported on 02/16/2024) 5 mL 3 No current facility-administered medications for this visit. Allergies As of Date: 02/21/2024 Allergen Noted Reaction SEASONAL ALLERGIES 12/29/2017 Other: See Comments Fully Assessed 02/16/2024 Does patient have penicillin allergy: No REVIEW OF SYSTEMS: GENERAL: Negative for: Fever or Chills HEENT: Negative for: Headache, Impaired Vision, Ringing in Ears, Nosebleeds NECK: Negative for: Swelling, Pain, Stiffness RESPIRATORY: Negative for: Cough, Shortness of breath, Wheezing GASTROINTESTINAL: Positive for: Constipation and Positive for: Nausea MUSCULOSKELETAL: Negative for: Muscle or joint pain, stiffness, Joint swelling NEUROLOGIC/PSYCHIATRIC: Negative for: Weakness, Paralysis, Numbness, Tingling, Tremor, Anxiety, Depression, Memory loss SKIN: Negative for: Rash, Itching GENITOURINARY: Negative for: vaginal itching, vaginal discharge, hematuria or dysuria SENSITIVE EXAM: The sensitive examination was discussed with the Patient or Patient's Authorized Chocolate Finisher Operator. As applicable, any other physician, advance practice provider, medical student, or other health professional student that will be observing or involved in the sensitive examination for educational or training purposes was discussed with the Patient or Authorized Chocolate Finisher Operator. The Patient or Authorized Chocolate Finisher Operator has agreed to proceed with the sensitive examination. (Sensitive examination includes inspection and/or palpation of the breasts, pelvis, prostate and anorectal regions). PHYSICAL EXAM: LMP 01/03/2024 GENERAL: pleasant in no apparent distress DERMATOLOGY: Normal, without lesions, non-icteric, and non-hirsute NECK: Supple, full range of motion, no adenopathy, and thyroid normal CHEST: Normal inspiratory effort BREAST: soft, non-tender, symmetric, no dominant mass, normal nipple-areolar complex, no lymphadenopathy, and no nipple discharge ABDOMEN: soft, non-tender, and no masses NEURO: alert and oriented x3,exam grossly non-focal PELVIS: External genitalia normal without lesions. Perineal body intact. No vaginal or cervical lesions. Cervix closed. No adnexal masses or tenderness. Clinical Pelvimetry: Pelvimetry clinically assessed as adequate Limited OB ultrasound exam: single intrauterine , positive cardiac activity, and POCUS performed. +cardiac activity, CRL consistent with LMP. Nilda Stiles, TEXTILE ENGRAVER.BANDAGE WINDING MACHINE OPERATOR ASSESSMENT: 18 year old at 7w0d wks gestational age PLAN: 1) Patient oriented to practice. Patient given new OB orientation folder. Discussed nutrition, folic acid supplementation, dietary guidelines, exercise, smoking, alcohol, caffeine, and drug use. Discussed gestational weight gain guidelines. Discussed routine OB labs including STD/HIV. Discussed how to access Your guide to a health and the Team Member. Reviewed midwifery and otr refrigerated cdl truck driver services that are available. 2) Screening: Hemoglobin A1C: ordered Baby Aspirin: The patient has been counseled about the potential benefits of low dose aspirin in and our recommendation that this be offered to all patients, regardless of whether they meet the high risk criteria specified above. She Accepts Aneuploidy Screening: Discussed aneuploidy screening, nuchal translucency/first trimester early anatomy ultrasound and NIPT. The risks/benefits and limitations of NIPT/aneuploidy screening were reviewed including the potential for false negative and false positive results. The availability of genetic counseling was reviewed. Information on aneuploidy screening was provided. The patient chooses to proceed with First trimester early anatomy ultrasound (12-13w6d) and NIPT (10 weeks) Myriad Carrier Screening: Discussed myriad carrier screening. We discussed the availability of professional-society guided carrier screening and reviewed the conditions screened and limitations of screening. The availability of genetic counseling was reviewed. Information on carrier screening was provided. The patient Declines 3) Patient offered option of Virtual Visits. Patient unsure. May consider in future. 4) Obesity (BMI >30), will order early glucose screen or Hemoglobin A1C. Follow up in 5 weeks or sooner prn. Nilda Stiles APRN.JOSELYN documented in this encounter [facility] 02-16-2024 Instructions Kelly Fields LPN - 02/16/2024 3:31 PM EST Please select the following link to access the [facility] Your Guide to a Healthy . [email or web address] Please select the following link to access the [facility] Your Guide to a Healthy . [email or web address] documented in this encounter [facility] 01-30-2024 Note HNO ID: [id number] Author: NILDA STILES APRN.JOSELYN Service: ? Author Type: Nurse Practitioner Type: Progress Notes Filed: 01/30/2024 14:33 Note Text: Amirah Woodard is a 18 year old female who presents for problem visit testing, reported +hpt 01/27/2024, 01/03/2024. HPI: positive test- some cramping no bleeding LMP 01/03/24 OB History T0 L0 SAB0 IAB0 Ectopic0 Multiple0 Live Births0 Schedule Announcer History LMP: 12/09/2023 (Exact Date), Having periods Age at Menarche: Age at First : Age at Menopause: Schedule Announcer History Comments: Sexual Activity: Yes; Male Contraception: I.U.D. PAST MEDICAL HISTORY Diagnosis Date Exercise-induced asthma with acute exacerbation 08/09/2016 Fracture, fibula 10/01/2023 Left PAST SURGICAL HISTORY Procedure Laterality Date EXTRACTION ERUPTED TOOTH/EXR 07/2023 INSERT INTRAUTERINE DEVICE 12/21/2022 removed IUD REMOVAL 05/2023 TONSILLECTOMY HX 03/24/2021 FAMILY HISTORY Problem Relation Age of Onset None Mother None Father No Known Problems Sister No Known Problems Sister No Known Problems Sister No Known Problems Sister No Known Problems Sister Thyroid Sister None Maternal Grandmother None Maternal Grandfather None Paternal Grandmother None Paternal Grandfather Social History Tobacco Use Smoking status: Never Smokeless tobacco: Never Tobacco comments: Second hand smoke exposure Vaping Use Vaping status: Never Used Substance Use Topics Alcohol use: No Drug use: No Current Outpatient Medications Medication Sig ketoconazole (NIZORAL) 2 % shampoo Apply small amount every 2 - 3 days for up to 8 weeks, then as needed. Lather, massage into affected areas. Allow shampoo remain on the affected areas for 5 minutes and then rinse off the shampoo. albuterol HFA (PROVENTIL HFA, VENTOLIN HFA) 90 mcg/actuation inhaler Inhale 2 Puffs as instructed every 4 hours as needed for wheezing/shortness of breath. fluticasone (FLONASE) 50 mcg/actuation nasal spray Use 1 [place] in each nostril once daily. loratadine (CLARITIN) 10 mg tablet Take 10 mg by mouth once daily. Olopatadine (PATADAY ONCE DAILY RELIEF) 0.2 % drop Use 1 Drop in both eyes once daily. No current facility-administered medications for this visit. Allergies As of Date: 01/30/2024 Allergen Noted Reaction SEASONAL ALLERGIES 12/29/2017 Other: See Comments Fully Assessed 12/12/2023 REVIEW OF SYSTEMS Expanded ROS: N/A Allergies and current medication updated:Yes SENSITIVE EXAM: Sensitive exam not performed. EXAM: LMP 12/09/2023 GENERAL: pleasant, female in no apparent distress HEENT: Normocephalic, atraumatic, mucus membranes moist, and no lesions CHEST: Normal inspiratory effort NEURO: alert and oriented x3,exam grossly non-focal EXTREMITIES: normal ASSESSMENT/PLAN: 1. Encounter for test, result positive - ICD9: V72.42, ICD10: Z32.01 Schedule NOB appt Review miscarriage precautions Nilda Stiles APRN.JOSELYN Medical Decision Making: Problems: Low: Acute, uncomplicated illness or injury Data: Unique test(s) ordered: 1 Risk: Low: Low risk from testing/treatment Medical Decision Making Level: 3 - Low [facility] 01-30-2024 History of Present illness Narrative Amirah Woodard is a 18 year old female who presents for problem visit testing, reported +hpt 01/27/2024, 01/03/2024. HPI: positive test- some cramping no bleeding LMP 01/03/24 OB History T0 L0 SAB0 IAB0 Ectopic0 Multiple0 Live Births0 Schedule Announcer History LMP: 12/09/2023 (Exact Date), Having periods Age at Menarche: Age at First : Age at Menopause: Schedule Announcer History Comments: Sexual Activity: Yes; Male Contraception: I.U.D. PAST MEDICAL HISTORY Diagnosis Date Exercise-induced asthma with acute exacerbation 08/09/2016 Fracture, fibula 10/01/2023 Left PAST SURGICAL HISTORY Procedure Laterality Date EXTRACTION ERUPTED TOOTH/EXR 07/2023 INSERT INTRAUTERINE DEVICE 12/21/2022 removed IUD REMOVAL 05/2023 TONSILLECTOMY HX 03/24/2021 FAMILY HISTORY Problem Relation Age of Onset None Mother None Father No Known Problems Sister No Known Problems Sister No Known Problems Sister No Known Problems Sister No Known Problems Sister Thyroid Sister None Maternal Grandmother None Maternal Grandfather None Paternal Grandmother None Paternal Grandfather Social History Tobacco Use Smoking status: Never Smokeless tobacco: Never Tobacco comments: Second hand smoke exposure Vaping Use Vaping status: Never Used Substance Use Topics Alcohol use: No Drug use: No Current Outpatient Medications Medication Sig ketoconazole (NIZORAL) 2 % shampoo Apply small amount every 2 - 3 days for up to 8 weeks, then as needed. Lather, massage into affected areas. Allow shampoo remain on the affected areas for 5 minutes and then rinse off the shampoo. albuterol HFA (PROVENTIL HFA, VENTOLIN HFA) 90 mcg/actuation inhaler Inhale 2 Puffs as instructed every 4 hours as needed for wheezing/shortness of breath. fluticasone (FLONASE) 50 mcg/actuation nasal spray Use 1 [place] in each nostril once daily. loratadine (CLARITIN) 10 mg tablet Take 10 mg by mouth once daily. Olopatadine (PATADAY ONCE DAILY RELIEF) 0.2 % drop Use 1 Drop in both eyes once daily. No current facility-administered medications for this visit. Allergies As of Date: 01/30/2024 Allergen Noted Reaction SEASONAL ALLERGIES 12/29/2017 Other: See Comments Fully Assessed 12/12/2023 REVIEW OF SYSTEMS Expanded ROS: N/A Allergies and current medication updated:Yes SENSITIVE EXAM: Sensitive exam not performed. EXAM: LMP 12/09/2023 GENERAL: pleasant, female in no apparent distress HEENT: Normocephalic, atraumatic, mucus membranes moist, and no lesions CHEST: Normal inspiratory effort NEURO: alert and oriented x3,exam grossly non-focal EXTREMITIES: normal ASSESSMENT/PLAN: 1. Encounter for test, result positive - ICD9: V72.42, ICD10: Z32.01 Schedule NOB appt Review miscarriage precautions Nilda Stiles APRN.CNP Medical Decision Making: Problems: Low: Acute, uncomplicated illness or injury Data: Unique test(s) ordered: 1 Risk: Low: Low risk from testing/treatment Medical Decision Making Level: 3 - Low documented in this encounter [facility] 12-15-2023 Telephone encounter Note Patient notified. Vivian Adams RN The following approved medication requests have been transmitted electronically. Requested Prescriptions Signed Prescriptions Disp Refills moxifloxacin (AVELOX) 400 mg tablet 7 tablet 0 Sig: Take 1 tablet by mouth once daily for 7 days. Authorizing Provider: NILDA STILES doxycycline hyclate (VIBRAMYCIN) 100 mg capsule 14 capsule 0 Sig: Take 1 capsule (100 mg) by mouth two times a day for 7 days. Authorizing Provider: NILDA STILES Pharmacy Information Pharmacy Address Telephone [address] [address] [facility] 12-15-2023 Miscellaneous Notes Patient notified. Vivian Adams RN The following approved medication requests have been transmitted electronically. Requested Prescriptions Signed Prescriptions Disp Refills moxifloxacin (AVELOX) 400 mg tablet 7 tablet 0 Sig: Take 1 tablet by mouth once daily for 7 days. Authorizing Provider: NILDA STILES doxycycline hyclate (VIBRAMYCIN) 100 mg capsule 14 capsule 0 Sig: Take 1 capsule (100 mg) by mouth two times a day for 7 days. Authorizing Provider: NILDA STILES Pharmacy Information Pharmacy Address Telephone [address] [address] Mycoplasma positive. Moxifloxacin x 7 days, then Doxy to follow x 7 days. Partner should be treated. Nilda Stiles APRN.CNP documented in this encounter [facility] 12-15-2023 Telephone encounter Note Mycoplasma positive. Moxifloxacin x 7 days, then Doxy to follow x 7 days. Partner should be treated. Nilda Stiles APRN.CNP [facility] 12-12-2023 Note HNO ID: [id number] Author: NILDA STILES APRN.CNP Service: ? Author Type: Nurse Practitioner Type: Progress Notes Filed: 12/12/2023 16:43 Note Text: 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 Amirah Woodard is a 18 year old female who presents for problem visit vaginal irritation, discharge for 1 week(s). HPI: pt presents with vaginal irritation and discharge x 1 week. She has had chronic BV/yeast infections. No concern for STDs, same partner. She was also concerned about a thyroid issue due to her 16-year-old sister was recently diagnosed with 1. OB History T0 L0 SAB0 IAB0 Ectopic0 Multiple0 Live Births0 Schedule Announcer History LMP: 10/08/2023 (Exact Date), Having periods Age at Menarche: Age at First : Age at Menopause: Schedule Announcer History Comments: Sexual Activity: Yes; Male Contraception: I.U.D. PAST MEDICAL HISTORY Diagnosis Date Exercise-induced asthma with acute exacerbation 08/09/2016 Fracture, fibula 10/01/2023 Left PAST SURGICAL HISTORY Procedure Laterality Date EXTRACTION ERUPTED TOOTH/EXR 07/2023 INSERT INTRAUTERINE DEVICE 12/21/2022 removed IUD REMOVAL 05/2023 TONSILLECTOMY HX 03/24/2021 FAMILY HISTORY Problem Relation Age of Onset None Mother None Father No Known Problems Sister No Known Problems Sister No Known Problems Sister No Known Problems Sister No Known Problems Sister None Maternal Grandmother None Maternal Grandfather None Paternal Grandmother None Paternal Grandfather Social History Tobacco Use Smoking status: Never Smokeless tobacco: Never Tobacco comments: Second hand smoke exposure Vaping Use Vaping status: Never Used Substance Use Topics Alcohol use: No Drug use: No Current Outpatient Medications Medication Sig ketoconazole (NIZORAL) 2 % shampoo Apply small amount every 2 - 3 days for up to 8 weeks, then as needed. Lather, massage into affected areas. Allow shampoo remain on the affected areas for 5 minutes and then rinse off the shampoo. fluticasone (FLONASE) 50 mcg/actuation nasal spray Use 1 [place] in each nostril once daily. loratadine (CLARITIN) 10 mg tablet Take 10 mg by mouth once daily. Olopatadine (PATADAY ONCE DAILY RELIEF) 0.2 % drop Use 1 Drop in both eyes once daily. albuterol HFA (PROVENTIL HFA, VENTOLIN HFA) 90 mcg/actuation inhaler Inhale 2 Puffs as instructed every 4 hours as needed for wheezing/shortness of breath. No current facility-administered medications for this visit. Allergies As of Date: 12/12/2023 Allergen Noted Reaction SEASONAL ALLERGIES 12/29/2017 Other: See Comments Fully Assessed 12/12/2023 REVIEW OF SYSTEMS Expanded ROS: N/A Allergies and current medication updated:Yes SENSITIVE EXAM: The sensitive examination was discussed with the Patient or Patient's Authorized Chocolate Finisher Operator. As applicable, any other physician, advance practice provider, medical student, or other health professional student that will be observing or involved in the sensitive examination for educational or training purposes was discussed with the Patient or Authorized Chocolate Finisher Operator. The Patient or Authorized Chocolate Finisher Operator has agreed to proceed with the sensitive examination. (Sensitive examination includes inspection and/or palpation of the breasts, pelvis, prostate and anorectal regions). EXAM: LMP 10/08/2023 GENERAL: pleasant, female in no apparent distress HEENT: Normocephalic, atraumatic, mucus membranes moist, and no lesions CHEST: Normal inspiratory effort PELVIC: external genitalia normal, normal [place]th[place]'s glands, urethra, [place]'s glands, no vulvar lesions, no cervical lesions, good vaginal support, physiologic discharge present, normal appearing perineal body and perianal region BIMANUAL: uterus normal size, shape and consistency, no adnexal masses, and positive cervical motion tenderness NEURO: alert and oriented x3,exam grossly non-focal EXTREMITIES: normal ASSESSMENT/PLAN: 1. Vaginal discharge - ICD9: 623.5, ICD10: N89.8 (primary diagnosis) - FRANCO/TRICHOMONAS NAAT - BACTERIAL VAGINOSIS NAAT - UROGENITAL UREAPLASMA AND MYCOPLASMA SPECIES BY PCR, FOR GENITAL, RECTAL, URINE SAMPLES 2. Vaginal irritation - ICD9: 623.9, ICD10: N89.8 - FRANCO/TRICHOMONAS NAAT - BACTERIAL VAGINOSIS NAAT - UROGENITAL UREAPLASMA AND MYCOPLASMA SPECIES BY PCR, FOR GENITAL, RECTAL, URINE SAMPLES 3. Family history of thyroid disorder - ICD9: V18.19, ICD10: Z83.49 - THYROID STIMULATING HORMONE - THYROID PEROXIDASE ANTIBODY - T3, FREE - T4 FREE/FREE THYROXINE Will notify patient of test results. Nilda Stiles APRN.BANDAGE WINDING MACHINE OPERATOR Medical Decision Making: Problems: Moderate: New problem with uncertain prognosis Data: Unique test(s) ordered: 3+ Risk: Low: Low risk from testing/treatment Medical Decision Making Level: 4 - Moderate [facility] 12-12-2023 History of Present illness Narrative 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 Amirah Woodard is a 18 year old female who presents for problem visit vaginal irritation, discharge for 1 week(s). HPI: pt presents with vaginal irritation and discharge x 1 week. She has had chronic BV/yeast infections. No concern for STDs, same partner. She was also concerned about a thyroid issue due to her 16-year-old sister was recently diagnosed with 1. OB History T0 L0 SAB0 IAB0 Ectopic0 Multiple0 Live Births0 Schedule Announcer History LMP: 10/08/2023 (Exact Date), Having periods Age at Menarche: Age at First : Age at Menopause: Schedule Announcer History Comments: Sexual Activity: Yes; Male Contraception: I.U.D. PAST MEDICAL HISTORY Diagnosis Date Exercise-induced asthma with acute exacerbation 08/09/2016 Fracture, fibula 10/01/2023 Left PAST SURGICAL HISTORY Procedure Laterality Date EXTRACTION ERUPTED TOOTH/EXR 07/2023 INSERT INTRAUTERINE DEVICE 12/21/2022 removed IUD REMOVAL 05/2023 TONSILLECTOMY HX 03/24/2021 FAMILY HISTORY Problem Relation Age of Onset None Mother None Father No Known Problems Sister No Known Problems Sister No Known Problems Sister No Known Problems Sister No Known Problems Sister None Maternal Grandmother None Maternal Grandfather None Paternal Grandmother None Paternal Grandfather Social History Tobacco Use Smoking status: Never Smokeless tobacco: Never Tobacco comments: Second hand smoke exposure Vaping Use Vaping status: Never Used Substance Use Topics Alcohol use: No Drug use: No Current Outpatient Medications Medication Sig ketoconazole (NIZORAL) 2 % shampoo Apply small amount every 2 - 3 days for up to 8 weeks, then as needed. Lather, massage into affected areas. Allow shampoo remain on the affected areas for 5 minutes and then rinse off the shampoo. fluticasone (FLONASE) 50 mcg/actuation nasal spray Use 1 [place] in each nostril once daily. loratadine (CLARITIN) 10 mg tablet Take 10 mg by mouth once daily. Olopatadine (PATADAY ONCE DAILY RELIEF) 0.2 % drop Use 1 Drop in both eyes once daily. albuterol HFA (PROVENTIL HFA, VENTOLIN HFA) 90 mcg/actuation inhaler Inhale 2 Puffs as instructed every 4 hours as needed for wheezing/shortness of breath. No current facility-administered medications for this visit. Allergies As of Date: 12/12/2023 Allergen Noted Reaction SEASONAL ALLERGIES 12/29/2017 Other: See Comments Fully Assessed 12/12/2023 REVIEW OF SYSTEMS Expanded ROS: N/A Allergies and current medication updated:Yes SENSITIVE EXAM: The sensitive examination was discussed with the Patient or Patient's Authorized Chocolate Finisher Operator. As applicable, any other physician, advance practice provider, medical student, or other health professional student that will be observing or involved in the sensitive examination for educational or training purposes was discussed with the Patient or Authorized Chocolate Finisher Operator. The Patient or Authorized Chocolate Finisher Operator has agreed to proceed with the sensitive examination. (Sensitive examination includes inspection and/or palpation of the breasts, pelvis, prostate and anorectal regions). EXAM: LMP 10/08/2023 GENERAL: pleasant, female in no apparent distress HEENT: Normocephalic, atraumatic, mucus membranes moist, and no lesions CHEST: Normal inspiratory effort PELVIC: external genitalia normal, normal [place] glands, urethra, [place]'s glands, no vulvar lesions, no cervical lesions, good vaginal support, physiologic discharge present, normal appearing perineal body and perianal region BIMANUAL: uterus normal size, shape and consistency, no adnexal masses, and positive cervical motion tenderness NEURO: alert and oriented x3,exam grossly non-focal EXTREMITIES: normal ASSESSMENT/PLAN: 1. Vaginal discharge - ICD9: 623.5, ICD10: N89.8 (primary diagnosis) - FRANCO/TRICHOMONAS NAAT - BACTERIAL VAGINOSIS NAAT - UROGENITAL UREAPLASMA AND MYCOPLASMA SPECIES BY PCR, FOR GENITAL, RECTAL, URINE SAMPLES 2. Vaginal irritation - ICD9: 623.9, ICD10: N89.8 - FRANCO/TRICHOMONAS NAAT - BACTERIAL VAGINOSIS NAAT - UROGENITAL UREAPLASMA AND MYCOPLASMA SPECIES BY PCR, FOR GENITAL, RECTAL, URINE SAMPLES 3. Family history of thyroid disorder - ICD9: V18.19, ICD10: Z83.49 - THYROID STIMULATING HORMONE - THYROID PEROXIDASE ANTIBODY - T3, FREE - T4 FREE/FREE THYROXINE Will notify patient of test results. Nilda Stiles APRN.CNP Medical Decision Making: Problems: Moderate: New problem with uncertain prognosis Data: Unique test(s) ordered: 3+ Risk: Low: Low risk from testing/treatment Medical Decision Making Level: 4 - Moderate documented in this encounter [facility] 10-31-2023 Sommer Panchal PA-C - 10/31/2023 11:23 AM EDT Images from the original note were not included. 5 to Go!TM Healthy Kids Inside & Out 5 Eat FIVE fruits and veggies a day 4 Give and get FOUR compliments a day 3 Consume THREE calcium products a day 2 Limit media time to TWO hours a day 1 Get at least ONE hour of exercise a day 0 Consume ZERO sugar-sweetened drinks Go! Be healthy, inside and out! [email or web address] Adolescent to Adult Transition Program [facility] cares about helping you and each of our adolescents and young adults make a smooth transition to adult care. If your current doctor is a financial analysis manager, we will work with you to decide the correct age for moving your care to a doctor or other provider who takes care of adults. We suggest that this move take place before age 22. Our office policy is to prepare you to move to a doctor or other provider who takes care of adults. This includes helping you find a doctor or other provider, sending medical records, and talking about any special needs with the new doctor or other provider. If your current doctor is in family medicine, [facility] will prepare you and your family for the transition to being an adult patient. You will be able to make your own healthcare decisions and will have an adult care team that meets your personal healthcare needs. At age 18, by law, we need your agreement to discuss personal health information with your family. We understand and respect that you may want to include your family in healthcare choices and will partner with you on how and when to include your family in decisions. We will make sure you know what changes to expect. We will also strive to make sure that all care team providers know your needs. We will help you find community resources and specialty care, if needed. Having your information before you come for the first time helps us be sure we do not miss any details. If joining our practice from outside [facility], we will help you request your medical record from past doctor(s) before your first visit. We will make every effort to work with your past providers to ensure a smooth transition and experience. We are always here for you. If you have any questions or concerns, please contact your primary care team or e-mail Got Transition is the federally funded national resource center on health care transition (HCT). Its aim is to improve transition from pediatric to adult health care through the use of evidence-driven strategies for health care management assistant, youth, young adults, and their families. www.gottransition.org [email or web address] [email or web address] documented in this encounter [facility] 10-31-2023 Note HNO ID: [id number] Author: SOMMER HERNANDEZ PA-C Service: ? Author Type: Physician Adjunct Professor Type: Progress Notes Filed: 11/04/2023 07:46 Note Text: WELL VISIT PEDIATRIC 18+ YRS OLD Amirah is a 18 year old who presents today for well exam. SUBJECTIVE CONCERNS: Yeast infection in vaginal area, scalp, belly button - completed 7 day course [employer], JOINER APPRENTICE advised in office visit with them Allergy/Immunology referral? Started within the last year getting scratchy throat and SOB/difficulty breathing when eating certain fruits - apples, bananas, kiwi, oranges ACT: 15 - mild intermittent asthma, has Albuterol inhaler as needed, sick earlier last week, also tends to flare up this time of year Had some sinus issues recently Has had cough, keep getting SOB Using Albuterol a lot recently, getting relief with Albuterol Has never needed oral steroid prior (did receive steroid coincidentally for wisdom teeth this past Spring when asthma was flaring bad and it seemed to help a lot) HISTORY ACTIVE PROBLEM LIST Allergic Rhinitis - 07/13/2021 Gastroesophageal Reflux Disease - 06/12/2021 PAST MEDICAL HISTORY 08/09/2016: Exercise-induced asthma with acute exacerbation 10/01/2023: Fracture, fibula Comment: Left PAST SURGICAL HISTORY 07/2023: EXTRACTION ERUPTED TOOTH/EXR 12/21/2022: INSERT INTRAUTERINE DEVICE Comment: removed 05/2023: IUD REMOVAL 03/24/2021: TONSILLECTOMY HX ALLERGIES Allergen Reactions Seasonal Allergies Other: See Comments Puffy itchy eyes and scratchy throat. Medications: albuterol HFA (PROVENTIL HFA, VENTOLIN HFA) 90 mcg/actuation inhaler Inhale 2 Puffs as instructed every 4 hours as needed for wheezing/shortness of breath. fluticasone (FLONASE) 50 mcg/actuation nasal spray Use 1 [place] in each nostril once daily. loratadine (CLARITIN) 10 mg tablet Take 10 mg by mouth once daily. Olopatadine (PATADAY ONCE DAILY RELIEF) 0.2 % drop Use 1 Drop in both eyes once daily. predniSONE (DELTASONE) 20 mg tablet Take 3 tablets by mouth once daily for 5 days. ketoconazole (NIZORAL) 2 % shampoo Apply small amount every 2 - 3 days for up to 8 weeks, then as needed. Lather, massage into affected areas. Allow shampoo remain on the affected areas for 5 minutes and then rinse off the shampoo. FAMILY HISTORY Problem Relation Age of Onset None Mother None Father No Known Problems Sister No Known Problems Sister No Known Problems Sister No Known Problems Sister No Known Problems Sister None Maternal Grandmother None Maternal Grandfather None Paternal Grandmother None Paternal Grandfather Social History Social History Narrative Not on file Smoking Exposure: Do you spend a significant amount of time with anyone who smokes? No School: Presently in College. No academic or school related concerns No behavioral concerns Any concerns regarding peer interactions? No Recreational Screen Time totaling more than 2 hours of screen time per day. Physical Activity: more than 1 hour of physical activity per day Fainting, dizziness, significant shortness of breath or chest pain with sports or exercise: Yes, SOB with exercise. Keeps pushing herself then dizzy but she can control it. History of concussion in the last year: No Safety: 07/13/2021 Pediatric SDOH - Response to gun questions Are there any guns kept in or around your home or where your child spends time? No Reviewed seat belts, bike helmets, and smoke detectors Diet: -Diet is well balanced and appropriate for age -Fruits are eaten with most meals -Vegetables are eaten with most meals -Drinks whole milk -Drinks water daily -Regularly eats meals with family Elimination: no concerns, normal size and consistency Dental: dental care current Sleep: -no sleep concerns Vision: Wears glasses and Vision screening completed by eye doctor Hearing: No hearing concerns Growth: No growth concerns Gynecological history: LMP: 10/08/2023 Cycles are regular and last 4-5 days. Dysmenorrhea: moderate Heavy periods: no Substance use: none Sexual History: Attraction: male Sexually Active: Yes Number of lifetime partners: 4 Contraception: condoms every time GC/C screen within the past year: Yes GC/C screen since most recent partner? Yes History of STI: No Hx of STI/HIV testing? Yes, STI Any new partners since last testing? No Change in normal vaginal discharge: No Body image: satisfactory Screening tools reviewed and discussed with [id number] and Social Determinants of Health. Please see Patient Entered Data. SDOH: Food Insecurity: No Food Insecurity (10/31/2023) Hunger Vital Sign Worried About Running Out of Food in the Last Year: Never true Ran Out of Food in the Last Year: Never true Financial Resource Strain: Low Risk (10/31/2023) Overall Financial Resource Strain (CARDIA) Difficulty of Paying Living Expenses: Not very hard Transportation Ne (more content not included)... [facility] 10-31-2023 History of Present illness Narrative WELL VISIT PEDIATRIC 18+ YRS OLD Amirah is a 18 year old who presents today for well exam. SUBJECTIVE CONCERNS: Yeast infection in vaginal area, scalp, belly button - completed 7 day course Monistat, JOINER APPRENTICE advised in office visit with them Allergy/Immunology referral? Started within the last year getting scratchy throat and SOB/difficulty breathing when eating certain fruits - apples, bananas, kiwi, oranges ACT: 15 - mild intermittent asthma, has Albuterol inhaler as needed, sick earlier last week, also tends to flare up this time of year Had some sinus issues recently Has had cough, keep getting SOB Using Albuterol a lot recently, getting relief with Albuterol Has never needed oral steroid prior (did receive steroid coincidentally for wisdom teeth this past Spring when asthma was flaring bad and it seemed to help a lot) HISTORY ACTIVE PROBLEM LIST Allergic Rhinitis - 07/13/2021 Gastroesophageal Reflux Disease - 06/12/2021 PAST MEDICAL HISTORY 08/09/2016: Exercise-induced asthma with acute exacerbation 10/01/2023: Fracture, fibula Comment: Left PAST SURGICAL HISTORY 07/2023: EXTRACTION ERUPTED TOOTH/EXR 12/21/2022: INSERT INTRAUTERINE DEVICE Comment: removed 05/2023: IUD REMOVAL 03/24/2021: TONSILLECTOMY HX ALLERGIES Allergen Reactions Seasonal Allergies Other: See Comments Puffy itchy eyes and scratchy throat. Medications: albuterol HFA (PROVENTIL HFA, VENTOLIN HFA) 90 mcg/actuation inhaler Inhale 2 Puffs as instructed every 4 hours as needed for wheezing/shortness of breath. fluticasone (FLONASE) 50 mcg/actuation nasal spray Use 1 [place] in each nostril once daily. loratadine (CLARITIN) 10 mg tablet Take 10 mg by mouth once daily. Olopatadine (PATADAY ONCE DAILY RELIEF) 0.2 % drop Use 1 Drop in both eyes once daily. predniSONE (DELTASONE) 20 mg tablet Take 3 tablets by mouth once daily for 5 days. ketoconazole (NIZORAL) 2 % shampoo Apply small amount every 2 - 3 days for up to 8 weeks, then as needed. Lather, massage into affected areas. Allow shampoo remain on the affected areas for 5 minutes and then rinse off the shampoo. FAMILY HISTORY Problem Relation Age of Onset None Mother None Father No Known Problems Sister No Known Problems Sister No Known Problems Sister No Known Problems Sister No Known Problems Sister None Maternal Grandmother None Maternal Grandfather None Paternal Grandmother None Paternal Grandfather Social History Social History Narrative Not on file Smoking Exposure: Do you spend a significant amount of time with anyone who smokes? No School: Presently in College. No academic or school related concerns No behavioral concerns Any concerns regarding peer interactions? No Recreational Screen Time totaling more than 2 hours of screen time per day. Physical Activity: more than 1 hour of physical activity per day Fainting, dizziness, significant shortness of breath or chest pain with sports or exercise: Yes, SOB with exercise. Keeps pushing herself then dizzy but she can control it. History of concussion in the last year: No Safety: 07/13/2021 Pediatric SDOH - Response to gun questions Are there any guns kept in or around your home or where your child spends time? No Reviewed seat belts, bike helmets, and smoke detectors Diet: -Diet is well balanced and appropriate for age -Fruits are eaten with most meals -Vegetables are eaten with most meals -Drinks whole milk -Drinks water daily -Regularly eats meals with family Elimination: no concerns, normal size and consistency Dental: dental care current Sleep: -no sleep concerns Vision: Wears glasses and Vision screening completed by eye doctor Hearing: No hearing concerns Growth: No growth concerns Gynecological history: LMP: 10/08/2023 Cycles are regular and last 4-5 days. Dysmenorrhea: moderate Heavy periods: no Substance use: none Sexual History: Attraction: male Sexually Active: Yes Number of lifetime partners: 4 Contraception: condoms every time GC/C screen within the past year: Yes GC/C screen since most recent partner? Yes History of STI: No Hx of STI/HIV testing? Yes, STI Any new partners since last testing? No Change in normal vaginal discharge: No Body image: satisfactory Screening tools reviewed and discussed with patient/[id number] and Social Determinants of Health. Please see Patient Entered Data. SDOH: Food Insecurity: No Food Insecurity (10/31/2023) Hunger Vital Sign Worried About Running Out of Food in the Last Year: Never true Ran Out of Food in the Last Year: Never true Financial Resource Strain: Low Risk (10/31/2023) Overall Financial Resource Strain (CARDIA) Difficulty of Paying Living Expenses: Not very hard Transportation Needs: No Transportation Needs (10/31/2023) PRAPARE - Transportation Lack of Transportation (Medical): No Lack of Transportation (Non-Medical): No Housing Stability: Low Risk (07/13/2021) Housing Stability Vital Sign Unable to Pay for Housing in the Last Year: No Number of Places Lived in the Last Year: 1 Unstable Housing in the Last Year: No Discussed SDOH results with patient/family. SDOH needs identified: no concerns identified OBJECTIVE Physical Exam: BP 116/78 (BP Site: Left Arm, BP Position: Sitting, BP Cuff Size: Regular Adult) Pulse 102 Temp 36.8 C (98.2 F) (Temporal) Resp 18 Ht 166.8 cm (5' 5.67) Wt 85.7 kg (188 lb 14.4 oz) LMP 10/08/2023 (Exact Date) BMI 30.80 kg/m Blood pressure %eric are not available for patients who are 18 years or older. Blood pressure %eric are not available for patients who are 18 years or older. 95 %ile (Z= 1.61) based on CDC (Girls, 2-20 Years) BMI-for-age based on BMI available on 10/31/2023. Last BMI: Wt: 86.9 kg (191 lb 9.6 oz) (97%, Z= 1.83)* BMI: 34.73 kg/(m^2) Last 4 Encounter Wt Readings: Date: Wt: 10/31/2023 85.7 kg (188 lb 14.4 oz) (96%, Z= 1.78)* 08/25/2023 86.9 kg (191 lb 9.6 oz) (97%, Z= 1.83)* 08/21/2023 86.5 kg (190 lb 11.2 oz) (97%, Z= 1.82)* 07/29/2023 86.9 kg (191 lb 9.6 oz) (97%, Z= 1.83)* Last 4 Encounter Ht Readings: Date: Ht: 10/31/2023 166.8 cm (5' 5.67) (71%, Z= 0.54)* 10/05/2022 158.2 cm (5' 2.28) (22%, Z= -0.76)* 10/28/2021 163.8 cm (5' 4.5) (55%, Z= 0.13)* 07/13/2021 163.4 cm (5' 4.33) (53%, Z= 0.08)* General: Well developed, No acute distress Head: normocephalic Eyes: conjunctivae/corneas clear Ears: TMs translucent bilaterally, normal landmarks noted Nose: clear rhinorrhea Oropharynx: moist mucous membranes, no erythema or exudate Neck: supple, no adenopathy Spine: Back symmetric, no curvature. Resp: lungs clear to auscultation Heart: Normal rate, regular rhythm, no murmur Abdomen: Soft, nontender, nondistended, no palpable organomegaly or masses, normal bowel sounds Genitalia: deferred Extremities: Full ROM and no swelling, erythema or tenderness R leg; Left leg in Boot Neuro: No focal deficits or abnormal findings present Skin: slight pruritic irritation noted to umbilical region, flaking present at scalp ASSESSMENT & PLAN Encounter Diagnosis ICD-10-CM 1. Encounter for wellness examination in adult Z00.00 2. Mild intermittent asthma with (acute) exacerbation J45.21 predniSONE (DELTASONE) 20 mg tablet 3. Seborrhea L21.9 ketoconazole (NIZORAL) 2 % shampoo 4. Adverse food reaction, initial encounter T78.1XXA CONSULT TO ALLERGY/IMMUNOLOGY 95 %ile (Z= 1.61) based on CDC (Girls, 2-20 Years) BMI-for-age based on BMI available on 10/31/2023. Brendolyn is elevated range (BMI 85th% - 95th%): -Discussed how healthy eating, minimizing electronics and getting physical activity impact physical and emotional health -Avoid eating out and encouraged family meals at home Based on PHQ-9 Score: 0 and interview, presentation is not consistent with depression. Based on ERICH-7 Score: 7 and interview, no further action needed. - Discussed diet and safety. - Dental care discussed. - Bright Futures handout given (See Patient Instructions). - No immunizations were given at this visit. - Follow up in one year for routine physical. Sommer Hernandez PA-C documented in this encounter [facility] 10-28-2023 Telephone encounter Note The following approved medication requests have been transmitted electronically. Requested Prescriptions Pending Prescriptions Disp Refills albuterol HFA (PROVENTIL HFA, VENTOLIN HFA) 90 mcg/actuation inhaler 18 g 0 Sig: Inhale 2 Puffs as instructed every 4 hours as needed for wheezing/shortness of breath. Que Chavez MD [facility] 10-28-2023 Miscellaneous Notes The following approved medication requests have been transmitted electronically. Requested Prescriptions Pending Prescriptions Disp Refills albuterol HFA (PROVENTIL HFA, VENTOLIN HFA) 90 mcg/actuation inhaler 18 g 0 Sig: Inhale 2 Puffs as instructed every 4 hours as needed for wheezing/shortness of breath. Que Chavez MD Last WCC: greater than one year ago and patient notified of need for appointment Verify RX Benefits Completed Last medication refill date: 07/29/23 Requesting 30 day supply Retail pharmacy updated: Completed Patient aware RX will be sent to pharmacy. No need to notify patient. Health Maintenance due: Asthma Control Test due on 04/27/2020 Meningococcal B Vaccine: Consider Based On Risk(1 of 2 - Patient Seeks Protection) Never done Asthma Action Plan due on 04/27/2021 Spirometry Never done Depression Screening Never done Anxiety Screening Never done Hepatitis C Screening Never done HIV Screening Never done Covid-19 Vaccine() due on 11/05/2022 Antonina Morse RN documented in this encounter [facility] 10-28-2023 Telephone encounter Note Last WCC: greater than one year ago and patient notified of need for appointment Verify RX Benefits Completed Last medication refill date: 07/29/23 Requesting 30 day supply Retail pharmacy updated: Completed Patient aware RX will be sent to pharmacy. No need to notify patient. Health Maintenance due: Asthma Control Test due on 04/27/2020 Meningococcal B Vaccine: Consider Based On Risk(1 of 2 - Patient Seeks Protection) Never done Asthma Action Plan due on 04/27/2021 Spirometry Never done Depression Screening Never done Anxiety Screening Never done Hepatitis C Screening Never done HIV Screening Never done Covid-19 Vaccine() due on 11/05/2022 Antonina Morse RN [facility] 08-25-2023 History of Present illness Narrative Amirah Woodard is a 18 year old female who presents for problem visit burning with intercourse HPI: pt states that her previous symptoms are cleared up, but will have vaginal burning with intercourse and after. OB History T0 L0 SAB0 IAB0 Ectopic0 Multiple0 Live Births0 Schedule Announcer History LMP: 07/04/2023 (Exact Date), Having periods Age at Menarche: Age at First : Age at Menopause: Schedule Announcer History Comments: Sexual Activity: Yes; Male Contraception: I.U.D. PAST MEDICAL HISTORY Diagnosis Date Exercise-induced asthma with acute exacerbation 08/09/2016 PAST SURGICAL HISTORY Procedure Laterality Date INSERT INTRAUTERINE DEVICE 12/21/2022 removed IUD REMOVAL 05/2023 TONSILLECTOMY HX 03/24/2021 FAMILY HISTORY Problem Relation Age of Onset None Mother None Father No Known Problems Sister No Known Problems Sister No Known Problems Sister No Known Problems Sister No Known Problems Sister None Maternal Grandmother None Maternal Grandfather None Paternal Grandmother None Paternal Grandfather Social History Tobacco Use Smoking status: Never Smokeless tobacco: Never Tobacco comments: Second hand smoke exposure Vaping Use Vaping Use: Never used Substance Use Topics Alcohol use: No Drug use: No Current Outpatient Medications Medication Sig fluticasone (FLONASE) 50 mcg/actuation nasal spray Use 1 [place] in each nostril once daily. albuterol HFA (PROVENTIL HFA, VENTOLIN HFA) 90 mcg/actuation inhaler Inhale 2 Puffs as instructed every 4 hours as needed for wheezing/shortness of breath. L.acidophilus-L.rhamnosus (FLORAJEN WOMEN) 15 billion cell capsule Take 1 capsule by mouth once daily. FLORAJEN WOMEN. If on antibiotic, take at least 1-2 hours before or after antibiotic. KEEP REFRIGERATED fluconazole (DIFLUCAN) 150 mg tablet Take 1 tablet today, then a 2nd tablet in 72 hours, and 3rd tablet in another 72 hours. (Patient not taking: Reported on 08/21/2023) loratadine (CLARITIN) 10 mg tablet Take 10 mg by mouth once daily. Olopatadine (PATADAY ONCE DAILY RELIEF) 0.2 % drop Use 1 Drop in both eyes once daily. No current facility-administered medications for this visit. Allergies As of Date: 08/25/2023 Allergen Noted Reaction SEASONAL ALLERGIES 12/29/2017 Other: See Comments Fully Assessed 08/21/2023 REVIEW OF SYSTEMS Expanded ROS: N/A Allergies and current medication updated:Yes EXAM: LMP 07/04/2023 GENERAL: pleasant, female in no apparent distress HEENT: Normocephalic, atraumatic, mucus membranes moist, and no lesions CHEST: Normal inspiratory effort NEURO: alert and oriented x3,exam grossly non-focal EXTREMITIES: normal ASSESSMENT/PLAN: 1. Vaginal burning - ICD9: 625.8, ICD10: N94.9 Estrace cream x 1 month Pt is taking Caio Stiles APRN.JOSELYN Medical Decision Making: Problems: Low: Acute, uncomplicated illness or injury Risk: Moderate: Drug management Medical Decision Making Level: 3 - Low documented in this encounter [facility] 08-21-2023 Instructions Alecia Mendez APRN.CNP - 08/21/2023 11:31 AM EDT Rest, increase water intake Motrin or Tylenol as needed for fever or pain. Salt water gargles, chloraseptic spray or lozenges as needed for sore throat. Warm beverages, honey. Nasal saline spray as needed Cool mist humidifier at night A cold normally lasts 7-10 days. If your symptoms are lasting longer, develop fever, or worsening by that time instead of improving then return to clinic or follow up with PCP for re-evaluation. Tylenol (generic acetaminophen) 500 mg-2 tabs every 8 hrs. as needed for fever and aches Ibuprofen 600 mg (3-200mg tablets) every 6 hours -Sudafed (generic is fine), behind the counter, 2x30 mg tabs twice daily as needed for congestion -Mucinex (generic is fine) Guaifenesin 1200 mg twice daily to help with cough and to thin out mucus -http://www.choosingwisely.org/pat ient-resources/antibiotics/. This link shares information about when antibiotics may help and when they may not. * Seek medical care immediately, call 911, go to ER if you have chest pain, difficulty breathing, shortness of breath, inability to swallow. documented in this encounter [facility] 08-21-2023 History of Present illness Narrative Subjective The history is provided by the patient. No senior patient account representative was used. HPI Amirah Woodard is a 18 year old female who presents today for CC of sore throat and ever for one day. She is also having nasal congestion, and cough. She has used ibuprofen with short term relief. 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 BP 112/81 Pulse 104 Temp 36.4 C (97.5 F) Resp 18 Wt 86.5 kg (190 lb 11.2 oz) LMP 07/04/2023 (Exact Date) SpO2 98% Social History Tobacco Use Smoking status: Never Smokeless tobacco: Never Tobacco comments: Second hand smoke exposure Vaping Use Vaping Use: Never used Substance Use Topics Alcohol use: No Drug use: No PAST MEDICAL HISTORY Diagnosis Date Exercise-induced asthma with acute exacerbation 08/09/2016 I have confirmed and edited as necessary, the [facility] Review of Systems Constitutional: Negative for chills and fever. HENT: Positive for sore throat. Negative for congestion, ear pain and sinus pain. Respiratory: Negative for cough, sputum production, shortness of breath and wheezing. Cardiovascular: Negative for chest pain. Musculoskeletal: Negative for myalgias. Neurological: Negative for headaches. Objective Physical Exam Vitals and nursing note reviewed. HENT: Head: Normocephalic and atraumatic. Right Ear: Tympanic membrane, ear canal and external ear normal. Left Ear: Tympanic membrane, ear canal and external ear normal. Nose: Mucosal edema, congestion and rhinorrhea present. Right Sinus: No maxillary sinus tenderness or frontal sinus tenderness. Left Sinus: No maxillary sinus tenderness or frontal sinus tenderness. Mouth/Throat: Pharynx: Uvula midline. Posterior oropharyngeal erythema present. No oropharyngeal exudate. Cardiovascular: Rate and Rhythm: Normal rate and regular rhythm. Heart sounds: Normal heart sounds. Pulmonary: Effort: Pulmonary effort is normal. Breath sounds: Normal breath sounds. Lymphadenopathy: Head: Right side of head: No submental, submandibular or tonsillar adenopathy. Left side of head: No submental, submandibular or tonsillar adenopathy. Cervical: No cervical adenopathy. Skin: General: Skin is warm and dry. Neurological: Mental Status: She is alert. Psychiatric: Mood and Affect: Affect normal. ASSESSMENT/PLAN: 1. Sore throat - ICD9: 462, ICD10: J02.9 (primary diagnosis) - suspect viral - Group A strep molecular testing negative - Discussed supportive care treatment with fluids, rest and analgesia. - The patient may also use warm salt water gargles, throat lozenges and/or OTC throat spray as needed. - The patient should follow up in one week if symptoms persist or worsen - Call back if drooling, increased temperature, symptoms of dehydration and/or still sick in one week 2. Viral illness - ICD9: 079.99, ICD10: B34.9 - Discussed viral etiology and rationale for treatment. - Symptomatic treatment with prn analgesia - Supportive care with fluids and rest - Declines covid, rsv, and flu testing Diagnosis and treatment plan were discussed and questions were answered to the patient's satisfaction. Pt acknowledged understanding of concepts and follow up plan. Specific signs and symptoms that would indicate the need for higher level of care were discussed in detail warranting prompt ER evaluation. Alecia Mendez APRN.JOSELYN documented in this encounter [facility] 08-02-2023 Telephone encounter Note BV positive. To treat with Flagyl 500mg PO BID for 7 days. 1) No alcohol during treatment and for 24 hours after last dose. 2) No intercourse during treatment. 3) Probiotic by mouth once daily for 30 days or as needed. I would also recommend using boric acid vaginal suppositories for 7 night. Nilda Stiles APRN.CNP [facility] 08-02-2023 Miscellaneous Notes BV positive. To treat with Flagyl 500mg PO BID for 7 days. 1) No alcohol during treatment and for 24 hours after last dose. 2) No intercourse during treatment. 3) Probiotic by mouth once daily for 30 days or as needed. I would also recommend using boric acid vaginal suppositories for 7 night. Nilda Stiles APRN.CNP documented in this encounter [facility] 07-29-2023 Telephone encounter Note The following approved medication requests have been transmitted electronically. Requested Prescriptions Pending Prescriptions Disp Refills fluticasone (FLONASE) 50 mcg/actuation nasal spray 1 Each 3 Sig: Use 1 [place] in each nostril once daily. albuterol HFA (PROVENTIL HFA, VENTOLIN HFA) 90 mcg/actuation inhaler 18 g 0 Sig: Inhale 2 Puffs as instructed every 4 hours as needed for wheezing/shortness of breath. Que Chavez MD [facility] 07-29-2023 Miscellaneous Notes The following approved medication requests have been transmitted electronically. Requested Prescriptions Pending Prescriptions Disp Refills fluticasone (FLONASE) 50 mcg/actuation nasal spray 1 Each 3 Sig: Use 1 [place] in each nostril once daily. albuterol HFA (PROVENTIL HFA, VENTOLIN HFA) 90 mcg/actuation inhaler 18 g 0 Sig: Inhale 2 Puffs as instructed every 4 hours as needed for wheezing/shortness of breath. Que Chavez MD Last [facility]: 10/05/22 Verify RX Benefits Completed Last medication refill date: albuterol 06/29/23 flonase 07/13/21 Requesting 30 day supply Retail pharmacy updated: Completed Patient aware RX will be sent to pharmacy. No need to notify patient. Health Maintenance due: Asthma Control Test due on 04/27/2020 Meningococcal B Vaccine: Consider Based On Risk(1 of 2 - Patient Seeks Protection) Never done Asthma Action Plan due on 04/27/2021 Spirometry Never done Hepatitis C Screening Never done HIV Screening Never done Covid-19 Vaccine( season) due on 11/05/2022 Behavioral Health Screening Never done Antonina Morse RN documented in this encounter [facility] 07-29-2023 Telephone encounter Note Refill request received via [facility]. Patient last seen in office on 07/11/23. Caroline Mora RN [facility] 07-29-2023 Miscellaneous Notes Refill request received via [facility]. Patient last seen in office on 07/11/23. Caroline Mora RN documented in this encounter [facility] 07-29-2023 Telephone encounter Note Last [facility]: 10/05/22 Verify RX Benefits Completed Last medication refill date: albuterol 06/29/23 flonase 07/13/21 Requesting 30 day supply Retail pharmacy updated: Completed Patient aware RX will be sent to pharmacy. No need to notify patient. 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 Amirah Woodard is a 17 year old female who presents for vaginal pruritis and discharge for 1 week(s). Vaginal discharge: thick and white. Itching: YES Dyspareunia: YES Fever/chills: No Abdominal pain: No Bladder: Negative for dysuria or frequency Bowel: No blood in stool, pain with BM, tarry stool, persistent diarrhea or constipation Any new sexual partners or concern for STD exposure: No Are you currently taking any medications to treat vaginitis: Yes, AZO yeast Past medical, surgical, social history, medications and allergies reviewed and updated. OBJECTIVE: Wt 191 lb 9.6 oz (86.9kg) LMP 07/04/2023 GENERAL: Well developed, well nourished in no apparent distress PELVIC: external genitalia normal, normal [place]th[place]'s glands, urethra, [place]'s glands, no vulvar lesions, no cervical lesions, good vaginal support, physiologic discharge present, normal appearing perineal body and perianal region ASSESSMENT/PLAN: 1. Vaginal discharge - ICD9: 623.5, ICD10: N89.8 Diflucan ordered - FRANCO/TRICHOMONAS NAAT - BACTERIAL VAGINOSIS NAAT Will notify patient of test results. Nilda Stiles APRN.CNP Medical Decision Making: Problems: Moderate: New problem with uncertain prognosis Data: Unique test(s) ordered: 2 Risk: Moderate: Drug management Medical Decision Making Level: 4 - Moderate documented in this encounter [facility] 07-12-2023 Note Addended by: NILDA STILES on: 07/12/2023 02:21 PM Modules accepted: Orders [facility] 07-12-2023 Miscellaneous Notes Addended by: NILDA STILES on: 07/12/2023 02:21 PM Modules accepted: Orders BV positive. To treat with Flagyl 500mg PO BID for 7 days. 1) No alcohol during treatment and for 24 hours after last dose. 2) No intercourse during treatment. 3) Probiotic by mouth once daily for 30 days or as needed. Nilda Stiles APRN.CNP documented in this encounter [facility] 07-12-2023 Telephone encounter Note BV positive. To treat with Flagyl 500mg PO BID for 7 days. 1) No alcohol during treatment and for 24 hours after last dose. 2) No intercourse during treatment. 3) Probiotic by mouth once daily for 30 days or as needed. Nilda Stiles APRN.CNP [facility] 07-11-2023 History of Present illness Narrative Hydro Plant Technician offered: Patient declines. Amirah Woodard is a 17 year old female who presents for vaginal burning for 1 month(s). Vaginal discharge: none. Itching: Some Dyspareunia: burning with intercourse Fever/chills: No Abdominal pain: No Bladder: Negative for dysuria or frequency Any new sexual partners or concern for STD exposure: No Any history of STDs: None Does your partner have any new complaints: No Are you currently taking any medications to treat vaginitis: No Do you use feminine sprays, douches or deodorants: No Past medical, surgical, social history, medications and allergies reviewed and updated. OBJECTIVE: BP 118/74 Wt 192 lb (87.1kg) LMP 07/04/2023 GENERAL: Well developed, well nourished in no apparent distress PELVIC: external genitalia normal, normal Bartholin's glands, urethra, [place]'s glands, no vulvar lesions, no cervical lesions, good vaginal support, physiologic discharge present, normal appearing perineal body and perianal region ASSESSMENT/PLAN: 1. Vaginal burning - ICD9: 625.8, ICD10: N94.9 Will notify patient of test results. - FRANCO/TRICHOMONAS NAAT - BACTERIAL VAGINOSIS NAAT Nilda Stiles APRN.CNP Medical Decision Making: Problems: Low: Acute, uncomplicated illness or injury Data: Unique test(s) ordered: 2 Risk: Low: Low risk from testing/treatment Medical Decision Making Level: 3 - Low documented in this encounter [facility] 06-29-2023 Telephone encounter Note The following approved medication requests have been transmitted electronically. Requested Prescriptions Pending Prescriptions Disp Refills albuterol HFA (PROVENTIL HFA, VENTOLIN HFA) 90 mcg/actuation inhaler 18 g 0 Sig: Inhale 2 Puffs as instructed every 4 hours as needed for wheezing/shortness of breath. Que Chavez MD [facility] 06-29-2023 Miscellaneous Notes The following approved medication requests have been transmitted electronically. Requested Prescriptions Pending Prescriptions Disp Refills albuterol HFA (PROVENTIL HFA, VENTOLIN HFA) 90 mcg/actuation inhaler 18 g 0 Sig: Inhale 2 Puffs as instructed every 4 hours as needed for wheezing/shortness of breath. 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 More frequently having the pain Amirah Woodard is a 17 year old accompanied by self presenting with injury to her bilateral archer(s). History was obtained from: patient HPI: Date when arcehr pain began: years History of the complaint: will sometimes get crampy pain down lateral shins. Happening more frequently and intensely now. episodes 1-2 x month last for a few day. Able to ambulate: Yes Bruising: No Swelling: No Numbness/Tingling: No Radiation of the pain: Yes down leg Pain is made worse by: moving ankle, stretching Treatment attempted: Acetaminophen Night pain: No Prior ankle sprains: No Also c/o left hip pain- grinding and popping with walking- Started last month- 3-4 times since then. Episodes last 20-30 min. 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 Has taken loratadine, flonase EAR SYMPTOMS: not present at this time COUGH: present for 10 day(s) Described as: moist, worse at night, and worse with activity/exercise Additional symptoms: wheezing Has used albuterol (1 puff) 1-2 times/day SORE THROAT: not present at this time HEADACHE: ongoing- has wisdom teeth coming in VOMITING: not present at this time NAUSEA: not present at this time Physical exam: Pulse 80 Temp 36.4 C (97.5 F) (Temporal) Resp 16 Wt 88.2 kg (194 lb 8 oz) LMP 04/03/2023 (Exact Date) Physical Exam: General: alert and active in no apparent distress Eyes: normal and no strabismus noted Ears: External ears normal. Canals clear. TM's normal. Nose/Sinuses: positive findings: congested Oropharynx: normal Cardiovascular: Regular Rate and Rhythm without murmurs or clicks Lungs: clear to auscultation, no wheezing. No increased work of breathing Musculoskeletal: Hip: Full range of motion. No pain on palpation of the pelvic rim or the SI Archer: non tender upon palpation over tibia and fibula and complains of pain at times on medial posterior calf Ankle: full ROM Foot: Flatfeet bilaterally Gait: normal gait Neuro: Sensation intact to light touch; Skin: Normal color, texture and turgor. No rashes. Assessment/Plan: Encounter Diagnosis ICD-10-CM 1. Pes planus of both feet M21.41 M21.42 2. Pain in archer, unspecified laterality M79.669 3. Acute upper respiratory infection J06.9 4. Mild intermittent asthma with (acute) exacerbation J45.21 - Cold therapy discussed - Heat therapy discussed - Ibuprofen as needed -Supportive footwear and/or arch supports -If symptoms continue refer to podiatry ASTHMA PLAN for URI: - Albuterol 2 puffs with spacer q4hr until cough resolved, then q4hr PRN cough or wheeze - Oral steroids: not indicated - Controller medication: Not indicated Que Chavez MD documented in this encounter [facility] 05-16-2023 History of Present illness Narrative Amirah presents for removal of IUD due to partial expulsion. UNIVERSAL PROTOCOL / SAFETY CHECKLIST Procedure to be Performed: IUD removal Sign In: A Moment of CARE was completed. Personnel directly involved with the procedure wore the appropriate PPE (Personal Protective Equipment). Patient/Surrogate Stated/Verified: PATIENT VERIFIED(optional for EMERGENT procedures): Patient name, Date of , Relevant allergies, and The intended procedure Time Out Communication: Intended patient and procedure match the source documents. Consent documented and matches the intended procedure. Sign Out: SIGN OUT (optional for EMERGENT procedures): No specimen collected. Dr Kia Lucero MD PROCEDURE: Speculum placed in vagina, IUD string visualized and grasped with ring forceps. ASSESSMENT/PLAN: IUD removed without difficulty, intact, and patient tolerated procedure well. Contraception plans: condoms Kia Lucero MD documented in this encounter [facility] 05-13-2023 Miscellaneous Notes Linked to appointment. Jody Hall RN Done Janelle Marin MD Patient is scheduled with today for IUD removal. Please file pending order to attach to her visit. Thank you. Kia Sheldon RN documented in this encounter [facility] 05-13-2023 History of Present illness Narrative Radiology Service Progress Note PATIENT NAME: Amirah Woodard DATE OF SERVICE: May 13, 2023 TIME: 8:31 AM PATIENT IDENTITY VERIFICATION COMPLETED USING TWO (2) IDENTIFIERS: Name and Date of confirmed by patient verbally. FALL SCREENING: Has the patient had 2 falls in the last year or 1 fall with injury or currently using an Ambulatory Assistive Device (Walker, Cane, Wheelchair, Crutches, etc.)? No PATIENT GENDER DATA: Female. status: : No status: NO. PATIENT RELEVANT IMPLANT DATA REVIEWED: Not Applicable PATIENT PRESENTS WITH AN IMPLANTABLE OR ATTACHED SENIOR GEOTECHNICAL ENGINEER: No RADIOLOGY DEPARTMENT: Ultrasound PERIPHERAL IV DATA: Not applicable SIGNED BY: Alla David RDMS May 13, 2023 8:31 AM documented in this encounter [facility] 05-03-2023 History of Present illness Narrative Amirah Woodard is a 17 year old female who presents for problem visit Vaginal discharge, milky white, itching , burning with dysparunia. Thinks she has a yeast infection, I just don't understand why these symptoms keep coming back, never totally gone 04/12/22 Franco positive 05/11/22 BV positive 11/27 Took Diflucan and Boric Acid vaginal inserts States she's received treatment for Yeast and BV in the past 6 months, but symptoms never totally go away. Most recently ( w weeks ago) treated herself with Boric Acid 1x/day for 3 days. OB History T0 L0 SAB0 IAB0 Ectopic0 Multiple0 Live Births0 Schedule Announcer History LMP: 04/04/2023 (Exact Date), Having periods Age at Menarche: Age at First : Age at Menopause: Schedule Announcer History Comments: Sexual Activity: Not Currently; Male Contraception: I.U.D. PAST MEDICAL HISTORY Diagnosis Date Exercise-induced asthma with acute exacerbation 08/09/2016 PAST SURGICAL HISTORY Procedure Laterality Date INSERT INTRAUTERINE DEVICE 12/21/2022 TONSILLECTOMY HX 03/24/2021 FAMILY HISTORY Problem Relation Age of Onset None Mother None Father No Known Problems Sister No Known Problems Sister No Known Problems Sister No Known Problems Sister No Known Problems Sister None Maternal Grandmother None Maternal Grandfather None Paternal Grandmother None Paternal Grandfather Social History Tobacco Use Smoking status: Never Smokeless tobacco: Never Tobacco comments: Second hand smoke exposure Vaping Use Vaping Use: Never used Substance Use Topics Alcohol use: No Drug use: No Current Outpatient Medications Medication Sig copper (PARAGARD) 380 square mm intrauterine device 1 Intra Uterine Device by INTRAUTERINE route. L. acidophilus-L. rhamnosus 15 billion cell cap Take 1 capsule by mouth once daily. FLORAJEN WOMEN. If on antibiotic, take at least 1-2 hours before or after antibiotic. KEEP REFRIGERATED fluticasone (FLONASE) 50 mcg/actuation nasal spray Use 1 [place] in each nostril once daily. (Patient taking differently: Use 1 [place] in each nostril once daily. PRN) Olopatadine (PATADAY ONCE DAILY RELIEF) 0.2 % drop Use 1 Drop in both eyes once daily. albuterol HFA (PROVENTIL HFA, VENTOLIN HFA) 90 mcg/actuation inhaler Inhale 2 Puffs as instructed every 4 hours as needed for wheezing/shortness of breath. No current facility-administered medications for this visit. Allergies As of Date: 05/03/2023 Allergen Noted Reaction SEASONAL ALLERGIES 12/29/2017 Other: See Comments Fully Assessed 10/05/2022 REVIEW OF SYSTEMS Pelvic: Vaginal discharge, milky white, itching, burning and pain with intercourse Allergies and current medication updated:Yes EXAM: BP 110/72 Wt 195 lb 12.8 oz (88.8kg) LMP 04/04/2023 GENERAL: pleasant, female in no apparent distress HEENT: Normocephalic, atraumatic, mucus membranes moist, and no lesions NECK: Supple, full range of motion, no adenopathy, and thyroid normal DERMATOLOGY: Normal, without lesions, non-icteric, and non-hirsute BREAST: deferred CHEST: Normal inspiratory effort ABDOMEN: soft, no masses. Mild lower abdominal tenderness 3-4/10 when palpated lower abdomen. PELVIC: external genitalia normal, normal Bartholin's glands, urethra, [place]'s glands, no vulvar lesions, no cervical lesions, good vaginal support, normal appearing perineal body and perianal region, IUD strings visible, small thin white/fox discharge noted vaginally BIMANUAL: uterus normal size, shape and consistency, no adnexal masses, positive cervical motion tenderness, and Mild tenderness NEURO: alert and oriented x3,exam grossly non-focal EXTREMITIES: normal ASSESSMENT AND PLAN: Encounter Diagnosis ICD-10-CM 1. Vaginal discharge N89.8 2. Vaginal itching N89.[address]/Yeast GC/Trich Will discuss treatment when results back Abstain from using Boric Acid. Return for office visit for any symptom return. 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 I have re-performed the HPI, Physical Examination, Assessment and Plan. Delfina Watson APRN.CNM documented in this encounter [facility] 11-12-2022 Miscellaneous Notes Please see pt's mycSmartFlow Technologiest message and further advise. Charis Crook LPN documented in this encounter [facility] 10-05-2022 Instructions Sommer Hernandez PA-C - 10/05/2022 11:48 AM EDT Images from the original note were not included. 5 to Go!TM Healthy Kids Inside & Out 5 Eat FIVE fruits and veggies a day 4 Give and get FOUR compliments a day 3 Consume THREE calcium products a day 2 Limit media time to TWO hours a day 1 Get at least ONE hour of exercise a day 0 Consume ZERO sugar-sweetened drinks Go! Be healthy, inside and out! [email or web address]/5toGo Adolescent to Adult Transition Program [facility] cares about helping you and each of our adolescents and young adults make a smooth transition to adult care. If your current doctor is a financial analysis manager, we will work with you to decide the correct age for moving your care to a doctor or other provider who takes care of adults. We suggest that this move take place before age 22. Our office policy is to prepare you to move to a doctor or other provider who takes care of adults. This includes helping you find a doctor or other provider, sending medical records, and talking about any special needs with the new doctor or other provider. If your current doctor is in family medicine, [facility] will prepare you and your family for the transition to being an adult patient. You will be able to make your own healthcare decisions and will have an adult care team that meets your personal healthcare needs. At age 18, by law, we need your agreement to discuss personal health information with your family. We understand and respect that you may want to include your family in healthcare choices and will partner with you on how and when to include your family in decisions. We will make sure you know what changes to expect. We will also strive to make sure that all care team providers know your needs. We will help you find community resources and specialty care, if needed. Having your information before you come for the first time helps us be sure we do not miss any details. If joining our practice from outside [facility], we will help you request your medical record from past doctor(s) before your first visit. We will make every effort to work with your past providers to ensure a smooth transition and experience. We are always here for you. If you have any questions or concerns, please contact your primary care team or e-mail [email or web address] [facility] is the federally funded national resource center on health care transition (HCT). Its aim is to improve transition from pediatric to adult health care through the use of evidence-driven strategies for health care management assistant, youth, young adults, and their families. www.gottransition.org https://Pollsbtransition.org/resource /?ces-hjokii-cafsteu documented in this encounter [facility] 10-05-2022 History of Present illness Narrative WELL VISIT PEDIATRIC 18+ YRS OLD Amirah is a 17 year old who presents today for well exam. SUBJECTIVE CONCERNS: Lump in left arm pit off and on, pea-sized, only sore when she messes with it, mobile - does not currently have at this time HISTORY ACTIVE PROBLEM LIST Allergic Rhinitis - 07/13/2021 Gastroesophageal Reflux Disease - 06/12/2021 PAST MEDICAL HISTORY Diagnosis Date Exercise-induced asthma with acute exacerbation 08/09/2016 PAST SURGICAL HISTORY Procedure Laterality Date TONSILLECTOMY HX 03/24/2021 ALLERGIES Allergen Reactions Seasonal Allergies Other: See Comments Puffy itchy eyes and scratchy throat. Medications: albuterol HFA (PROVENTIL HFA, VENTOLIN HFA) 90 mcg/actuation inhaler Inhale 2 Puffs as instructed every 4 hours as needed for wheezing/shortness of breath. loratadine (CLARITIN) 10 mg tablet Take 1 tablet by mouth once daily. FOR ALLERGY SYMPTOMS L. acidophilus-L. rhamnosus 15 billion cell cap Take 1 capsule by mouth once daily. FLORAJEN WOMEN. If on antibiotic, take at least 1-2 hours before or after antibiotic. KEEP REFRIGERATED fluticasone (FLONASE) 50 mcg/actuation nasal spray Use 1 [place] in each nostril once daily. (Patient taking differently: Use 1 [place] in each nostril once daily. PRN) Olopatadine (PATADAY ONCE DAILY RELIEF) 0.2 % drop Use 1 Drop in both eyes once daily. FAMILY HISTORY Problem Relation Age of Onset None Mother None Father No Known Problems Sister No Known Problems Sister No Known Problems Sister No Known Problems Sister No Known Problems Sister None Maternal Grandmother None Maternal Grandfather None Paternal Grandmother None Paternal Grandfather Social History Social History Narrative Not on file Smoking Exposure: Do you spend a significant amount of time with anyone who smokes? No School: Entering College. No academic or school related concerns No behavioral concerns Any concerns regarding peer interactions? No Physical Activity: more than 1 hour of physical activity per day Recreational Screen Time totaling more than 2 hours of screen time per day. Fainting, dizziness, significant shortness of breath or chest pain with sports or exercise: No History of concussion in the last year: No Safety: Pediatric SDOH - Response to gun questions 07/13/2021 Are there any guns kept in or around your home or where your child spends time? No Reviewed seat belts, bike helmets, and smoke detectors Diet: -Diet is well balanced and appropriate for age -Fruits and veggies are eaten with most meals -Drinks whole milk -Drinks water daily -Regularly eats meals with family Elimination: no concerns, normal size and consistency Dental: dental care current Sleep: -no sleep concerns Vision: Wears glasses and Vision screening completed by eye doctor Hearing: No hearing concerns Growth: No growth concerns Gynecological history: LMP: 10/03/2022 Cycles are regular and last 4-5 days. Dysmenorrhea: mild Heavy periods: yes Substance use: none High risk behaviors: none Sexual History: Attraction: male Sexually Active: Yes Number of lifetime partners: 2 Contraception: condoms every time GC/C screen within the past year: Yes GC/C screen since most recent partner? Yes Change in normal vaginal discharge: No Body image: satisfactory Screening tools reviewed and discussed with patient/[id number]-6 and Social Determinants of Health. Please see Patient Entered Data. SDOH: Food Insecurity: No Food Insecurity (07/13/2021) Hunger Vital Sign Worried About Running Out of Food in the Last Year: Never true Ran Out of Food in the Last Year: Never true Financial Resource Strain: Low Risk (07/13/2021) Overall Financial Resource Strain (CARDIA) Difficulty of Paying Living Expenses: Not very hard Transportation Needs: No Transportation Needs (07/13/2021) PRAPARE - Transportation Lack of Transportation (Medical): No Lack of Transportation (Non-Medical): No Housing Stability: Low Risk (07/13/2021) Housing Stability Vital Sign Unable to Pay for Housing in the Last Year: No Number of Places Lived in the Last Year: 1 Unstable Housing in the Last Year: No Discussed SDOH results with patient/family. SDOH needs identified: no concerns identified OBJECTIVE Physical Exam: BP 124/74 (BP Site: Left Arm, BP Position: Sitting, BP Cuff Size: Regular Adult) Pulse 98 Temp 36.5 C (97.7 F) (Temporal) Resp 18 Ht 158.2 cm (5' 2.28) Wt 92.1 kg (203 lb) LMP 10/03/2022 BMI 36.79 kg/m Blood pressure %eric are not available for patients who are 18 years or older. Blood pressure %eric are not available for patients who are 18 years or older. 98 %ile (Z= 2.08) based on CDC (Girls, 2-20 Years) BMI-for-age based on BMI available as of 10/05/2022. Last BMI: Wt: 89 kg (196 lb 4.8 oz) (97 %, Z= 1.93)* BMI: 33.17 kg/(m^2) Last 4 Encounter Wt Readings: Date: Wt: 10/05/2022 92.1 kg (203 lb) (98 %, Z= 2.01)* 08/13/2022 89 kg (196 lb 4.8 oz) (97 %, Z= 1.93)* 07/15/2022 88 kg (194 lb) (97 %, Z= 1.90)* 05/27/2022 86.5 kg (190 lb 12.8 oz) (97 %, Z= 1.86)* Last 4 Encounter Ht Readings: Date: Ht: 10/05/2022 158.2 cm (5' 2.28) (22 %, Z= -0.76)* 10/28/2021 163.8 cm (5' 4.5) (55 %, Z= 0.13)* 07/13/2021 163.4 cm (5' 4.33) (53 %, Z= 0.08)* 01/13/2021 163 cm (5' 4.17) (52 %, Z= 0.04)* General: Well developed, No acute distress Head: normocephalic Eyes: conjunctivae/corneas clear Ears: normal external ear and canal, tympanic membranes with normal landmarks Nose: no erythema or rhinorrhea Oropharynx: moist mucous membranes, no erythema or exudate Neck: supple, no adenopathy Spine: Back symmetric, no curvature. Resp: lungs clear to auscultation Heart: RRR, normal S1 and S2. , No murmurs Abdomen: Soft, nontender, nondistended, no palpable organomegaly or masses, normal bowel sounds Genitalia: deferred Extremities: Full ROM and no swelling, erythema or tenderness Neuro: No focal deficits or abnormal findings present Skin: no rashes ASSESSMENT & PLAN: Encounter Diagnosis ICD-10-CM 1. Encounter for wellness examination in adult Z00.00 2. Encounter for immunization Z23 HPV VACCINE, 9-VALENT (GARDASIL 9) 98 %ile (Z= 2.08) based on CDC (Girls, 2-20 Years) BMI-for-age based on BMI available as of 10/05/2022. Brendolyn is elevated range (BMI greater than 95th%): -Discussed how healthy eating, minimizing electronics and getting physical activity impact physical and emotional health -Avoid eating out and encouraged family meals at home - Discussed diet and safety. - Dental care discussed. - [employer] handout given (See Patient Instructions). - Patient was counseled [id number] by myself (the billing provider) for the following immunizations and vaccine components, including side effects: HPV. Patient consents for immunization and understands risks and benefits. A VIS sheet on each immunization was given to the patient. - Follow up in one year for routine physical. Sommer Hernandez PA-C documented in this encounter [facility] 07-15-2022 History of Present illness Narrative CONTRACEPTION Amirah Woodard is a 16 year old who presents today for contraception. Patient states that she stopped her OCPs about 2 months ago. Since stopping the pills she has not had any headaches/migraines. She is interested in trying the patch, so she does not have to remember to take the pill every day. Patient's last menstrual period was 04/30/2022 (exact date).. SUBJECTIVE Sexually active: Yes Smoking No Last PAP Patient currently interested in: patch Interested in in the next 3 years? No Date of last test: 07/15/22 Negative Relevant Past Medical History: No relevant past medical history OB History T0 L0 SAB0 IAB0 Ectopic0 Multiple0 Live Births0 PAST MEDICAL HISTORY Diagnosis Date Exercise-induced asthma with acute exacerbation 08/09/2016 PAST SURGICAL HISTORY Procedure Laterality Date TONSILLECTOMY HX 03/24/2021 FAMILY HISTORY Problem Relation Age of Onset None Mother None Father No Known Problems Sister No Known Problems Sister No Known Problems Sister No Known Problems Sister No Known Problems Sister None Maternal Grandmother None Maternal Grandfather None Paternal Grandmother None Paternal Grandfather SOCIAL HISTORY Social History Tobacco Use Smoking status: Never Smokeless tobacco: Never Tobacco comments: Second hand smoke exposure Vaping Use Vaping Use: Never used Substance Use Topics Alcohol use: No Drug use: No PAST SURGICAL HISTORY Procedure Laterality Date TONSILLECTOMY HX 03/24/2021 Current Outpatient Medications Medication Sig albuterol HFA (PROVENTIL HFA, VENTOLIN HFA) 90 mcg/actuation inhaler Inhale 2 Puffs as instructed every 4 hours as needed for wheezing/shortness of breath. loratadine (CLARITIN) 10 mg tablet Take 1 tablet by mouth once daily. FOR ALLERGY SYMPTOMS L. acidophilus-L. rhamnosus 15 billion cell cap Take 1 capsule by mouth once daily. FLORAJEN WOMEN. If on antibiotic, take at least 1-2 hours before or after antibiotic. KEEP REFRIGERATED fluticasone (FLONASE) 50 mcg/actuation nasal spray Use 1 [place] in each nostril once daily. Olopatadine (PATADAY ONCE DAILY RELIEF) 0.2 % drop Use 1 Drop in both eyes once daily. No current facility-administered medications for this visit. Allergies As of Date: 07/15/2022 Allergen Noted Reaction SEASONAL ALLERGIES 12/29/2017 Other: See Comments Fully Assessed 05/27/2022 OBJECTIVE: General Appearance: Well appearing, alert, in no acute distress, well-hydrated, well nourished. Skin: Color normal Lungs: normal inspiratory effort ASSESSMENT/PLAN: 1. Missed period - ICD9: 626.4, ICD10: N92.6 (primary diagnosis) - HCG QUAL UR B/O 2. Encounter for other contraceptive management - ICD9: V25.8, ICD10: Z30.8 Xulane patch ordered Instructed patient that if headaches/migraines return with the patch that we should consider a progesterone only option. Nilda Stiles APRN.CNP Medical Decision Making: Problems: Low: Acute, uncomplicated illness or injury Risk: Low: Low risk from testing/treatment Moderate: Drug management Medical Decision Making Level: 3 - Low documented in this encounter [facility] 07-12-2022 Miscellaneous Notes She can do a virtual visit since I've seen her this year. Nilda Stiles APRN.CNP Do you want patient to have an in person or virtual visit to discuss? documented in this encounter [facility] 05-27-2022 History of Present illness Narrative Patient presents with: Sore Throat: Cough, chest congestion, runny nose x4 days HPI: Feeling sick for 5 days. Her boyfriend is sick with cough and sore throat also. 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 Positive symptoms: Cough, Sore throat, Nasal Congestion, Rhinorrhea, Shortness of breath, Wheezing, Negative symptoms: Fever, Headache, Nausea, Vomiting, Diarrhea, OTC: flonase Used inhalers when younger. MEDICATIONS: Current Outpatient Medications Medication Sig loratadine (CLARITIN) 10 mg tablet Take 1 tablet by mouth once daily. FOR ALLERGY SYMPTOMS L. acidophilus-L. rhamnosus 15 billion cell cap Take 1 capsule by mouth once daily. FLORAJEN WOMEN. If on antibiotic, take at least 1-2 hours before or after antibiotic. KEEP REFRIGERATED triamcinolone acetonide (KENALOG) 0.1 % cream Apply to affected area(s) twice daily as needed. Not to exceed 14 days consecutive use. fluticasone (FLONASE) 50 mcg/actuation nasal spray Use 1 [place] in each nostril once daily. Olopatadine (PATADAY ONCE DAILY RELIEF) 0.2 % drop Use 1 Drop in both eyes once daily. No current facility-administered medications for this visit. ALLERGIES: ALLERGIES Allergen Reactions Seasonal Allergies Other: See Comments Puffy itchy eyes and scratchy throat. VITALS:BP 110/86 Pulse (!) 19 Temp 36.3 C (97.3 F) Resp 18 Wt 86.5 kg (190 lb 12.8 oz) LMP 04/30/2022 (Exact Date) SpO2 97% PHYSICAL EXAM: GEN: mildly ill appearing. HEENT: PERRL, EOMI, conjunctiva clear Ears: canals with peripheral cerumen RTM without erythema, bulge, or effusion; LTM without erythema, bulge, or effusion Nose: congested Throat: moist mucous membranes, mild erythema, no exudate Neck: supple, no thyromegaly, no lymphadenopathy HEART: regular rate and rhythm, no murmurs LUNGS: clear to auscultation, no wheezes or crackles, no increased WOB ASSESSMENT/PLAN: 1. URI, acute - ICD9: 465.9, ICD10: J06.9 (primary diagnosis) - suspect viral URI, differential includes COVID-19. - Discussed supportive care treatment with home isolation, rest, cold medicine, and analgesia. - Red flags to seek further treatment include chest pain, shortness of breath, and lethargy; in the ER if severe. - 2019 CORONAVIRUS 2. Wheezing - ICD9: 786.07, ICD10: R06.2 - 2019 CORONAVIRUS Rx for inhaler and spacer. Ramon Patrick MD documented in this encounter [facility] 05-10-2022 Miscellaneous Notes Voicemail and mychart message to pt to offer sooner appt. Pt is currently scheduled for 05/17/22 for vaginal burning with intercourse. When pt calls the office please offer her time tomorrow to be seen. Charis Crook LPN documented in this encounter [facility] 05-07-2022 History of Present illness Narrative PEDIATRIC SICK VISIT SERVICE DATE: 04/18/2022 TEACHING PROVIDER (Physician/PA/CATRINA) NOTE OF PERSONAL INVOLVEMENT IN CARE: I have personally seen and examined the patient and performed the medical decision-making components. I have reviewed the Physician Adjunct Professor (PA) Student's documentation and verified the findings in the note as written. Signature: Sommer Hernandez PA-C Date: 05/07/2022 Time: 9:01 AM This note was generated by a PA STUDENT working under the supervision of an Attending Physician Adjunct Professor. As applicable, the findings, conclusions, and assessment of risk have been confirmed by a qualified provider. The note is NOT considered authenticated until addended and co-signed by the Attending Physician Adjunct Professor at the beginning of this note. SUBJECTIVE: Amirah Woodard is a 16 year old presenting for evaluation of ear pain x 2 days (L>R) and sinus pressure on the left side which occurred prior to ear pain onset. Does have seasonal allergies, typically in Spring and Summer. Symptoms include: Fever (?100.4F): No Cough: No Shortness of breath: No or Wheezing: No Fatigue: No Headache: Yes (intermittent/chronic) Sore throat: Yes (AM, resolves in hours, feels scratchy) Nasal congestion: Yes or Rhinorrhea: No Abdominal pain: No Nausea: No or Vomiting: No Diarrhea: No Decreased appetite: No Signs of dehydration (low fluid intake or voiding, dry mucus membranes): No History was obtained from: patient Sick contacts: No known sick contacts (works at prison) HISTORY: ACTIVE PROBLEM LIST Allergic Rhinitis - 07/13/2021 Gastroesophageal Reflux Disease - 06/12/2021 PAST MEDICAL HISTORY Diagnosis Date Exercise-induced asthma with acute exacerbation 08/09/2016 PAST SURGICAL HISTORY Procedure Laterality Date TONSILLECTOMY HX 03/24/2021 ALLERGIES Allergen Reactions Seasonal Allergies Other: See Comments Puffy itchy eyes and scratchy throat. L. acidophilus-L. rhamnosus 15 billion cell cap Take 1 capsule by mouth once daily. FLORAJEN WOMEN. If on antibiotic, take at least 1-2 hours before or after antibiotic. KEEP REFRIGERATED norgestimate 0.25 mg-ethinyl estradiol 35 mcg (SPRINTEC) 0.25-35 mg-mcg per tablet Take 1 tablet by mouth once daily. triamcinolone acetonide (KENALOG) 0.1 % cream Apply to affected area(s) twice daily as needed. Not to exceed 14 days consecutive use. guaiFENesin (MUCINEX) 600 mg 12 hr tablet Take 2 tablets by mouth twice daily. fluticasone (FLONASE) 50 mcg/actuation nasal spray Use 1 [place] in each nostril once daily. Olopatadine (PATADAY ONCE DAILY RELIEF) 0.2 % drop Use 1 Drop in both eyes once daily. loratadine (CLARITIN) 10 mg tablet Take 1 tablet by mouth once daily. FOR ALLERGY SYMPTOMS OBJECTIVE: Pulse 100 Temp 37 C (98.6 F) (Temporal) Resp 16 Wt 87.3 kg (192 lb 8 oz) LMP 04/30/2022 (Exact Date) General: alert and active in no apparent distress, cooperative, pleasant Eyes: conjunctiva clear, no eyelid swelling Ears: TMs translucent bilaterally, normal landmarks noted on right. Slight retraction on left. Nose: no rhinorrhea, no mucosal edema OP: no lesions, no erythema, moist mucous membranes Neck: supple, no adenopathy Lungs: clear to auscultation bilaterally, good air exchange, no retractions, wheezing or rhonchi CVS: Normal rate, regular rhythm, no murmur Encounter Diagnosis ICD-10-CM 1. Dysfunction of both eustachian tubes H69.83 2. Seasonal allergies J30.2 - Discussed diagnosis with patient - Ordered loratadine 10mg to be used daily during allergy season - Advised to use Flonase 1 spray/nostril daily during allergy season - Reassured patient that ears do not appear infected at this time - All questions answered - Patient to return to clinic if symptoms do not improve or worsen SIGNATURE: Sommer Hernandez PA-C PATIENT NAME:Amirah Woodard DATE: 05/07/2022 TIME: 9:00 AM documented in this encounter [facility] 05-03-2022 Miscellaneous Notes Please have the patient make another appointment so that we can repeat the vaginal swabs to see if the infection has cleared. Nilda Stiles APRN.CNP documented in this encounter [facility] 04-13-2022 Miscellaneous Notes Patient notified. States she took x1 Diflucan yesterday that was sent in for her. Advised to take a second tablet 72 hours from then and a third tablet 72 hours after that. Aware she will have one tablet left over. Kia Sheldon RN Please let the pt know that she is still +BV and now yeast. Rx sent to pharmacy. Nilda Stiles APRN.CNP documented in this encounter [facility] 04-12-2022 History of Present illness Narrative Amirah Woodard is a 16 year old female who presents for vaginal pruritis and burning for 4 days. Vaginal discharge: none. Itching: YES Dyspareunia: YES Fever/chills: No Abdominal pain: No Bladder: Negative for dysuria or frequency Bowel: No blood in stool, pain with BM, tarry stool, persistent diarrhea or constipation Any new sexual partners or concern for STD exposure: No Are you currently taking any medications to treat vaginitis: No Do you use feminine sprays, douches or deodorants: No Past medical, surgical, social history, medications and allergies reviewed and updated. OBJECTIVE: Wt 191 lb 6.4 oz (86.8kg) LMP 04/01/2022 GENERAL: Well developed, well nourished in no apparent distress PELVIC: external genitalia normal, normal Bartholin's glands, urethra, [place]'s glands, no vulvar lesions, no cervical lesions, good vaginal support, normal appearing perineal body and perianal region, thick yellow discharge BIMANUAL: deferred. ASSESSMENT/PLAN: 1. Vaginal irritation - ICD9: 623.9, ICD10: N89.8 - FRANCO / TRICHOMONAS AMPLIFICATION - BACTERIAL VAGINOSIS AMPLIFICATION - Diflucan x 1 dose, if symptoms do not improve after 3 days she can use Monistat 7. Nilda Stiles APRN.CNP Medical Decision Making: Problems: Low: Acute, uncomplicated illness or injury Data: Unique test(s) ordered: 2 Risk: Low: Low risk from testing/treatment Moderate: Drug management Medical Decision Making Level: 3 - Low documented in this encounter [facility] 04-09-2022 Miscellaneous Notes 1st attempt no answer, no voicemail. Called to R/S w/ [facility] for 04/12. Kia Tijerina documented in this encounter [facility] 03-16-2022 History of Present illness Narrative Amirah Woodard is a 16 year old female who presents for problem visit continued pelvic pain. HPI: pt presents with continued pelvic and pain with intercourse. She is doing well with current OCP and would like to continue with them. Denies any vaginal discharge or concerns for STDs OB History T0 L0 SAB0 IAB0 Ectopic0 Multiple0 Live Births0 Schedule Announcer History LMP: 03/04/2022, Having periods Age at Menarche: Age at First : Age at Menopause: Schedule Announcer History Comments: Sexual Activity: Not Currently; Male Contraception: Pill PAST MEDICAL HISTORY Diagnosis Date Exercise-induced asthma with acute exacerbation 08/09/2016 PAST SURGICAL HISTORY Procedure Laterality Date TONSILLECTOMY HX 03/24/2021 FAMILY HISTORY Problem Relation Age of Onset None Mother None Father No Known Problems Sister No Known Problems Sister No Known Problems Sister No Known Problems Sister No Known Problems Sister None Maternal Grandmother None Maternal Grandfather None Paternal Grandmother None Paternal Grandfather Social History Tobacco Use Smoking status: Never Smokeless tobacco: Never Tobacco comments: Second hand smoke exposure Vaping Use Vaping Use: Never used Substance Use Topics Alcohol use: No Drug use: No Current Outpatient Medications Medication Sig triamcinolone acetonide (KENALOG) 0.1 % cream Apply to affected area(s) twice daily as needed. Not to exceed 14 days consecutive use. guaiFENesin (MUCINEX) 600 mg 12 hr tablet Take 2 tablets by mouth twice daily. fluticasone (FLONASE) 50 mcg/actuation nasal spray Use 1 [place] in each nostril once daily. Olopatadine (PATADAY ONCE DAILY RELIEF) 0.2 % drop Use 1 Drop in both eyes once daily. famotidine (PEPCID) 20 mg tablet Take 1 tablet by mouth twice daily as needed. norgestimate 0.25 mg-ethinyl estradiol 35 mcg (SPRINTEC) 0.25-35 mg-mcg per tablet Take 1 tablet by mouth once daily. No current facility-administered medications for this visit. Allergies As of Date: 03/16/2022 Allergen Noted Reaction SEASONAL ALLERGIES 12/29/2017 Other: See Comments Fully Assessed 03/16/2022 REVIEW OF SYSTEMS Abdomen: No bloating, early satiety, indigestion, or increased flatulence. No abdominal pain, nausea, vomiting, diarrhea, or constipation. Bladder: No dysuria, gross hematuria, urinary frequency, urinary urgency, or incontinence. Expanded ROS: N/A Allergies and current medication updated:Yes EXAM: Wt 190 lb 9.6 oz (86.5kg) LMP 03/04/2022 GENERAL: pleasant, female in no apparent distress HEENT: Normocephalic, atraumatic, and no lesions CHEST: Normal inspiratory effort PELVIC: external genitalia normal, normal Bartholin's glands, urethra, [place]'s glands, no vulvar lesions, no cervical lesions, good vaginal support, physiologic discharge present, normal appearing perineal body and perianal region BIMANUAL: uterus normal size, shape and consistency, no adnexal masses, non-tender, and Moderate tenderness NEURO: alert and oriented x3,exam grossly non-focal EXTREMITIES: normal ASSESSMENT/PLAN: 1. Pelvic pain in female - ICD9: 625.9, ICD10: R10.2 (primary diagnosis) - GC/CHLAMYDIA DNA DET - FRANCO / TRICHOMONAS AMPLIFICATION - BACTERIAL VAGINOSIS AMPLIFICATION 2. Encounter for surveillance of contraceptive pills - ICD9: V25.41, ICD10: Z30.41 Sprintec renew for 1 yr *if results are negative will treat for cervicitis if no improve in the pelvic pain will refer to Pelvic pain clinic ?? Endometriosis Nilda Stiles APRN.CNP Medical Decision Making: Problems: Low: Acute, uncomplicated illness or injury Data: Unique test(s) ordered: 2 Risk: Low: Low risk from testing/treatment Moderate: Drug management Medical Decision Making Level: 3 - Low documented in this encounter [facility] 01-18-2022 Instructions Alecia Mendez APRN.CNP - 01/18/2022 10:23 AM EST covid test ordered You will be notified in 12-24 hours, results available on [employer] Home isolation until covid results are back Rest, increase water intake Motrin or Tylenol as needed for fever or pain. Salt water gargles, chloraseptic spray or lozenges as needed for sore throat. Warm beverages, honey. Nasal saline spray as needed Cool mist humidifier at night Tylenol (generic acetaminophen) 500 mg-2 tabs every 8 hrs. as needed for fever and aches Ibuprofen 600 mg (3-200mg tablets) every 6 hours Otc Cough and cold medications * Seek medical care immediately, call 911, go to ER if you have chest pain, difficulty breathing, shortness of breath, inability to swallow. documented in this encounter [facility] 01-18-2022 History of Present illness Narrative Subjective The history is provided by the patient. No senior patient account representative was used. HPI Amirah Woodard is a 16 year old female who presents today for CC of cough, congestion, sore throat and fever that started on Tuesday. She has use tylenol, and nyquil with short term relief. 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 BP 118/64 Pulse 112 Temp 36.5 C (97.7 F) Resp 16 Wt 83.5 kg (184 lb) LMP 08/25/2021 SpO2 96% Social History Tobacco Use Smoking status: Never Smokeless tobacco: Never Tobacco comments: Second hand smoke exposure Vaping Use Vaping Use: Never used Substance Use Topics Alcohol use: No Drug use: No PAST MEDICAL HISTORY Diagnosis Date Exercise-induced asthma with acute exacerbation 08/09/2016 I have confirmed and edited as necessary, the [facility] Review of Systems Constitutional: Negative for chills and fever. HENT: Positive for congestion, ear pain (pressure) and sinus pain. Negative for sore throat. Respiratory: Positive for cough. Negative for sputum production, shortness of breath and wheezing. Cardiovascular: Negative for chest pain. Musculoskeletal: Negative for myalgias. Neurological: Negative for headaches. Objective Physical Exam Vitals and nursing note reviewed. HENT: Head: Normocephalic and atraumatic. Right Ear: Ear canal and external ear normal. A middle ear effusion is present. Tympanic membrane is bulging. Left Ear: Ear canal and external ear normal. A middle ear effusion is present. Tympanic membrane is bulging. Nose: Mucosal edema, congestion and rhinorrhea present. Right Sinus: Maxillary sinus tenderness and frontal sinus tenderness present. Left Sinus: Maxillary sinus tenderness and frontal sinus tenderness present. Mouth/Throat: Pharynx: Uvula midline. No oropharyngeal exudate or posterior oropharyngeal erythema. Comments: Post nasal drainage Cardiovascular: Rate and Rhythm: Normal rate and regular rhythm. Heart sounds: Normal heart sounds. Pulmonary: Effort: Pulmonary effort is normal. Breath sounds: Normal breath sounds. Lymphadenopathy: Head: Right side of head: No submental, submandibular or tonsillar adenopathy. Left side of head: No submental, submandibular or tonsillar adenopathy. Cervical: No cervical adenopathy. Skin: General: Skin is warm and dry. Neurological: Mental Status: She is alert and oriented to person, place, and time. Psychiatric: Mood and Affect: Affect normal. ASSESSMENT/PLAN: 1. Acute cough - ICD9: 786.2, ICD10: R05.1 (primary diagnosis) - COVID, FLU A/B + RSV, ROUTINE - 2019 CORONAVIRUS - ROUTINE FLU A/B + RSV 2. Fever, unspecified fever cause - ICD9: 780.60, ICD10: R50.9 - COVID, FLU A/B + RSV, ROUTINE - 2019 CORONAVIRUS - ROUTINE FLU A/B + RSV 3. Sore throat - ICD9: 462, ICD10: J02.9 - suspect viral - no test done symptoms improving. - COVID, FLU A/B + RSV, ROUTINE - 2019 CORONAVIRUS - ROUTINE FLU A/B + RSV 4. URI with cough and congestion - ICD9: 465.9, ICD10: J06.9 - Discussed viral etiology and rationale for treatment. - Symptomatic treatment with prn analgesia - Supportive care with fluids and rest Home isolation Testing ordered Comfort measures discussed - see patient instructions. When to seek higher level of care Notified in 24-48 hours with results, available on [employer] - COVID, FLU A/B + RSV, ROUTINE - 2019 CORONAVIRUS - ROUTINE FLU A/B + RSV Diagnosis and treatment plan were discussed and questions were answered to the patient's satisfaction. Pt acknowledged understanding of concepts and follow up plan. Specific signs and symptoms that would indicate the need for higher level of care were discussed in detail warranting prompt ER evaluation. Aelcia Mendez APRN.BANDAGE WINDING MACHINE OPERATOR documented in this encounter [facility] 10-28-2021 History of Present illness Narrative PEDIATRIC SICK VISIT SERVICE DATE: 10/28/2021 TEACHING PROVIDER (Physician/PA/CATRINA) NOTE OF PERSONAL INVOLVEMENT IN CARE: I have personally seen and examined the patient and performed the medical decision-making components. I have reviewed the Physician Adjunct Professor (PA) Student's documentation and verified the findings in the note as written. Signature: Sommer Hernandez PA-C Date: 10/28/2021 Time: 9:59 AM This note was generated by a PA STUDENT working under the supervision of an Attending Physician Adjunct Professor. As applicable, the findings, conclusions, and assessment of risk have been confirmed by a qualified provider. The note is NOT considered authenticated until addended and co-signed by the Attending Physician Adjunct Professor at the beginning of this note. SUBJECTIVE: mAirah Woodard is a 16 year old female who presents for evaluation of itchy skin back of bilateral calves x a few weeks. Patient has not noticed any bumps or rashes. Reports a few healed excoriations and redness in areas she has scratched. Additionally reports nasal congestion. Denies fever and other URI-like symptoms. Itching seems worse at night and when tighter clothing rubs against skin. The patients reports no new exposures, no recent contact with unusual or new material, no recent change in detergents, soap, lotions, or shampoo, and no other family members with the same rash. Denies camping and being in the outdoors or forrest recently. Boyfriend lives on a farm where patient frequently visits. Patient does report history of seasonal allergies. History was obtained from: patient Modifying factors attempted: Flonase Claritin HISTORY: ACTIVE PROBLEM LIST Gastroesophageal Reflux Disease Allergic Rhinitis PAST MEDICAL HISTORY Diagnosis Date Exercise-induced asthma with acute exacerbation 08/09/2016 PAST SURGICAL HISTORY Procedure Laterality Date TONSILLECTOMY HX 03/24/2021 Allergies: ALLERGIES Allergen Reactions Seasonal Allergies Other: See Comments Puffy itchy eyes and scratchy throat. Medications: guaiFENesin (MUCINEX) 600 mg 12 hr tablet Take 2 tablets by mouth twice daily. fluticasone (FLONASE) 50 mcg/actuation nasal spray Use 1 [place] in each nostril once daily. Olopatadine (PATADAY ONCE DAILY RELIEF) 0.2 % drop Use 1 Drop in both eyes once daily. famotidine (PEPCID) 20 mg tablet Take 1 tablet by mouth twice daily as needed. norgestimate 0.25 mg-ethinyl estradiol 35 mcg (SPRINTEC) 0.25-35 mg-mcg per tablet Take 1 tablet by mouth once daily. triamcinolone acetonide (KENALOG) 0.1 % cream Apply to affected area(s) twice daily as needed. Not to exceed 14 days consecutive use. REVIEW OF SYSTEMS: As above, otherwise negative OBJECTIVE: Pulse 80 Temp 36.6 C (97.9 F) (Temporal) Resp 16 Ht 163.8 cm (5' 4.5) Wt 84.4 kg (186 lb) LMP 08/25/2021 BMI 31.43 kg/m General: alert and active in no apparent distress, cooperative, pleasant Eyes: Conjunctiva clear, no tearing or discharge Neck: supple, no adenopathy Lungs: clear to auscultation bilaterally, good air exchange, no retractions CVS: Normal rate, regular rhythm, no murmur Skin: No rashes, lesions, or skin changes. Healed excoriations noted on back of calves bilaterally. ASSESSMENT/PLAN: Encounter Diagnosis ICD-10-CM 1. Seasonal allergies J30.2 - Patient instructed to adhere to Claritin and Flonase daily - Patient prescribed Triamcinolone Acetonide Cream applied BID prn pruritus, not to exceed 14 days of use. - All questions answered and school note provided to patient - Follow up in office as needed for any concerns SIGNATURE: Sommer Hernandez PA-C PATIENT NAME: Amirah Woodard DATE: October 28, 2021 TIME: 9:00 AM documented in this encounter [facility] 10-05-2021 Instructions Alecia Mendez APRN.CNP - 10/05/2021 1:02 PM EDT covid test ordered You will be notified in 24 -48 hours, results available on [employer] Home isolation until covid results are back Rest, increase water intake Motrin or Tylenol as needed for fever or pain. Salt water gargles, chloraseptic spray or lozenges as needed for sore throat. Warm beverages, honey. Nasal saline spray as needed Cool mist humidifier at night Tylenol (generic acetaminophen) 500 mg-2 tabs every 8 hrs. as needed for fever and aches Ibuprofen 600 mg (3-200mg tablets) every 6 hours -Mucinex (generic is fine) Guaifenesin 1200 mg twice daily to help with cough and to thin out mucus Continue flonase and claritin * Seek medical care immediately, call 911, go to ER if you have chest pain, difficulty breathing, shortness of breath, inability to swallow. documented in this encounter [facility] 10-05-2021 History of Present illness Narrative Subjective HPI HPI Amirah Woodard is a 16 year old female who presents today for CC of upper respiratory symptoms that started yesterday Symptoms include: Fever (?100.4F): Yes or Chills: Yes Cough: Yes Shortness of breath: Yes or Difficulty breathing: No Fatigue: Yes Muscle aches: No Headache: Yes New loss of smell or taste: No Sore throat: No Nasal congestion: Yes or Rhinorrhea: Yes Nausea: Yes or Vomiting: No Diarrhea: No OTC meds/remedies that patient has tried: acetaminophen. High risk category assessment No high risk factors Exposures: Sick contacts? No Family or close contacts with confirmed/probable COVID-19 in last 14 days? No BP 124/76 Pulse 88 Temp 36.6 C (97.9 F) Resp 16 Wt 83.5 kg (184 lb) LMP 08/25/2021 SpO2 98% Social History Tobacco Use Smoking status: Never Smoker Smokeless tobacco: Never Used Tobacco comment: Second hand smoke exposure Vaping Use Vaping Use: Never used Substance Use Topics Alcohol use: No Drug use: No PAST MEDICAL HISTORY Diagnosis Date Exercise-induced asthma with acute exacerbation 08/09/2016 I have confirmed and edited as necessary, the [facility] Review of Systems Constitutional: Positive for chills, fever and malaise/fatigue. HENT: Positive for congestion. Negative for ear pain, sinus pain and sore throat. Respiratory: Positive for cough. Negative for sputum production, shortness of breath and wheezing. Cardiovascular: Negative for chest pain. Musculoskeletal: Positive for myalgias. Neurological: Negative for headaches. Objective Physical Exam Vitals and nursing note reviewed. HENT: Head: Normocephalic and atraumatic. Right Ear: Tympanic membrane, ear canal and external ear normal. Left Ear: Tympanic membrane, ear canal and external ear normal. Nose: Mucosal edema, congestion and rhinorrhea present. Mouth/Throat: Pharynx: Uvula midline. No oropharyngeal exudate or posterior oropharyngeal erythema. Cardiovascular: Rate and Rhythm: Normal rate and regular rhythm. Heart sounds: Normal heart sounds. Pulmonary: Effort: Pulmonary effort is normal. Breath sounds: Normal breath sounds. Lymphadenopathy: Head: Right side of head: No submental, submandibular or tonsillar adenopathy. Left side of head: No submental, submandibular or tonsillar adenopathy. Cervical: No cervical adenopathy. Skin: General: Skin is warm and dry. Neurological: Mental Status: She is alert. Psychiatric: Mood and Affect: Affect normal. ASSESSMENT/PLAN: 1. Upper respiratory symptom - ICD9: 786.9, ICD10: R09.89 (primary diagnosis) - COVID, FLU A/B + RSV, ROUTINE - 2019 CORONAVIRUS - ROUTINE FLU A/B + RSV 2. Suspected COVID-19 virus infection - ICD9: V01.79, ICD10: Z20.822 Home isolation Testing ordered Comfort measures discussed - see patient instructions. When to seek higher level of care Notified in 24-48 hours with results, available on [employer] game [employer] - COVID, FLU A/B + RSV, ROUTINE - 2019 CORONAVIRUS - ROUTINE FLU A/B + RSV Diagnosis and treatment plan were discussed and questions were answered to the patient's satisfaction. Pt acknowledged understanding of concepts and follow up plan. Specific signs and symptoms that would indicate the need for higher level of care were discussed in detail warranting prompt ER evaluation. Alecia Mendez APRN.JOSELYN documented in this encounter [facility] 07-13-2021 Instructions Que Chavez MD - 07/13/2021 9:29 AM EDT Images from the original note were not included. 5 to Go!TM Healthy Kids Inside & Out 5 Eat FIVE fruits and veggies a day 4 Give and get FOUR compliments a day 3 Consume THREE calcium products a day 2 Limit media time to TWO hours a day 1 Get at least ONE hour of exercise a day 0 Consume ZERO sugar-sweetened drinks Go! Be healthy, inside and out! www.[facility].org/5toGo Adolescent to Adult Transition Program [facility] cares about helping you and each of our adolescents and young adults make a smooth transition to adult care. If your current doctor is a financial analysis manager, we will work with you to decide the correct age for moving your care to a doctor or other provider who takes care of adults. We suggest that this move take place before age 22. Our office policy is to prepare you to move to a doctor or other provider who takes care of adults. This includes helping you find a doctor or other provider, sending medical records, and talking about any special needs with the new doctor or other provider. If your current doctor is in family medicine, [facility] will prepare you and your family for the transition to being an adult patient. You will be able to make your own healthcare decisions and will have an adult care team that meets your personal healthcare needs. At age 18, by law, we need your agreement to discuss personal health information with your family. We understand and respect that you may want to include your family in healthcare choices and will partner with you on how and when to include your family in decisions. We will make sure you know what changes to expect. We will also strive to make sure that all care team providers know your needs. We will help you find community resources and specialty care, if needed. Having your information before you come for the first time helps us be sure we do not miss any details. If joining our practice from outside [facility], we will help you request your medical record from past doctor(s) before your first visit. We will make every effort to work with your past providers to ensure a smooth transition and experience. We are always here for you. If you have any questions or concerns, please contact your primary care team or e-mail [email or web address] Got Transition is the federally funded national resource center on health care transition (HCT). Its aim is to improve transition from pediatric to adult health care through the use of evidence-driven strategies for health care management assistant, youth, young adults, and their families. www.gottransition.org https://[employer].org/resource /?zhs-shvrwg-ghiqsht Healthy Children Ages & Stages Texting Program HealthyChildren.org is an AAP ([place] [employer]) parenting website. It is a great resource for information. They have a new Ages & Stages texting program available to parents. Fill out the information in the link below to start getting helpful tips and resources from AAP experts right to your phone. Be sure to include your child's age so they can send you age appropriate information. https://www.healthychildren.org/En glish/tips-tools/HealthyChildren-T exting-Program/Pages/default.aspx documented in this encounter [facility] 07-13-2021 History of Present illness Narrative WELL VISIT PEDIATRIC FEMALE 14-17 YRS OLD SERVICE DATE: 07/13/2021 Amirah is a 15 year old female who presents today for well exam accompanied by her mother. SUBJECTIVE CONCERNS: Acid Reflux- doing well on prilosec. Tomato sauce can be bothersome Allergies, sees ENT. eyes swelling, itchy, sneezing, nose bleeds, nasal congestion Takes Loratadine allergy shots weekly x 1 month HISTORY ACTIVE PROBLEM LIST Allergic Rhinitis - 07/13/2021 Gastroesophageal Reflux Disease - 06/12/2021 PAST MEDICAL HISTORY Diagnosis Date Exercise-induced asthma with acute exacerbation 08/09/2016 PAST SURGICAL HISTORY Procedure Laterality Date TONSILLECTOMY HX 03/24/2021 ALLERGIES Allergen Reactions Seasonal Allergies Other: See Comments Puffy itchy eyes and scratchy throat. Medications: norgestimate 0.25 mg-ethinyl estradiol 35 mcg (SPRINTEC) 0.25-35 mg-mcg per tablet Take 1 tablet by mouth once daily. fluticasone (FLONASE) 50 mcg/actuation nasal spray Use 1 [place] in each nostril once daily. Olopatadine (PATADAY ONCE DAILY RELIEF) 0.2 % drop Use 1 Drop in both eyes once daily. loratadine (CLARITIN) 10 mg tablet Take 1 tablet by mouth once daily. famotidine (PEPCID) 20 mg tablet Take 1 tablet by mouth twice daily as needed. MEDICATION, NON-DATABASE allergy injections weekly FAMILY HISTORY Problem Relation Age of Onset None Mother None Father No Known Problems Sister No Known Problems Sister No Known Problems Sister No Known Problems Sister No Known Problems Sister None Maternal Grandmother None Maternal Grandfather None Paternal Grandmother None Paternal Grandfather Social History Social History Narrative Not on file Smoking Exposure: Does your child spend a significant amount of time in the care of anyone who smokes? Yes -Who uses tobacco products? -Are you interesting in quitting? No -Do you have a smoke-free home rule in place? No -Do you have a smoke-free car rule in place? No School: Grade: 11th; grades A-B. plans college after HS (SW) Physical Activity: more than 1 hour of physical activity per day Screen Time totaling more than 2 hours of screen time per day. Safety: Pediatric SDOH - Response to gun questions 07/13/2021 Are there any guns kept in or around your home or where your child spends time? No Reviewed seat belts, bike helmets and smoke detectors Diet: -Eats 2-3 meals per day and 2 snacks per day -Typical beverages include water -Fruits and vegetables are eaten with nearly every meal -# of fast food meals/week: 1-2 -# of days/week that family has dinner together: 1 Elimination: no concerns, normal size and consistency Dental: dental care current Sleep: -no sleep concerns Gynecological history: LMP: 06/23/21 Cycles are regular and last 4 days. Dysmenorrhea: none Heavy periods: no Substance use: none Sexual History: Attraction: male Sexually Active: No Screening tools reviewed and discussed with patient/iaplod-TGF-T and Social Determinants of Health. Please see Patient Entered Data. REVIEW OF SYSTEMS GENERAL: No fevers EYES: No vision concerns ENT: No hearing concerns RESPIRATORY: Negative for cough, wheezing or respiratory distress CARDIOVASCULAR: Occasionally feels a flutter in her chest SKIN: Negative for lesions, rash, and itching ENDOCRINE: No growth concerns OBJECTIVE Physical Exam: Pulse 92 Temp 36.5 C (97.7 F) (Temporal Artery) Resp 20 Ht 163.4 cm (5' 4.33) Wt 83 kg (183 lb) LMP 06/23/2021 (Exact Date) BMI 31.09 kg/m No blood pressure reading on file for this encounter. Last BMI: Wt: 82.1 kg (181 lb) (96 %, Z= 1.75)* BMI: 30.90 kg/(m^2) Last 4 Encounter Wt Readings: Date: Wt: 06/12/2021 82.1 kg (181 lb) (96 %, Z= 1.75)* 04/16/2021 80.7 kg (178 lb) (96 %, Z= 1.71)* 03/10/2021 82.6 kg (182 lb) (96 %, Z= 1.78)* 01/13/2021 79.8 kg (176 lb) (95 %, Z= 1.69)* Last 4 Encounter Ht Readings: Date: Ht: 01/13/2021 163 cm (5' 4.17) (52 %, Z= 0.04)* 05/05/2017 159.5 cm (5' 2.8) (70 %, Z= 0.53)* General: Well developed, No acute distress Head: normocephalic Eyes: conjunctivae/corneas clear Ears: normal external ear and canal, tympanic membranes with normal landmarks Nose: no erythema or rhinorrhea Oropharynx: moist mucous membranes, no erythema or exudate Neck: Supple, no adenopathy; thyroid symmetric, normal size, no bruits Spine: Back symmetric, no curvature Resp: lungs clear to auscultation Heart: RRR, normal S1 and S2. , No murmurs Abdomen: Soft, nontender, nondistended, no palpable organomegaly or masses, normal bowel sounds Extremities: No clubbing, cyanosis, or edema., No deformities or skin discoloration. Good capillary refill. Full range of motion. Neuro: No focal deficits or abnormal findings present Skin: no rashes, lesions or jaundice ASSESSMENT & PLAN Encounter Diagnosis ICD-10-CM 1. Encounter for WCC (well child check) with abnormal findings Z00.121 2. Gastroesophageal reflux disease, unspecified whether esophagitis present K21.9 3. Allergic rhinitis, unspecified seasonality, unspecified trigger J30.9 96 %ile (Z= 1.80) based on CDC (Girls, 2-20 Years) BMI-for-age based on BMI available as of 07/13/2021. Amirah is obese (BMI greater than 95th%): -Discussed how healthy eating, minimizing electronics and getting physical activity impact physical and emotional health -Avoid eating out and encouraged family meals at home Add allergy meds as ordered- continue immun step down prilosec to pepcid Based on PHQ-A Score: 6 (recommended cut off score is 11) and interview, presentation is not consistent with depression Wants to return for HPV when not getting allergy injections on the same day - Adolescent anticipatory guidance discussed. - Discussed diet and safety. - Dental care discussed. - Bright Futures handout given (See Patient Instructions). - No immunization ordered at this visit. - Follow up in one year for routine physical. SIGNATURE: Que Chavez MD PATIENT NAME: Amirah Woodard DATE: July 13, 2021 TIME: 9:00 AM documented in this encounter [facility] 06-12-2021 History of Present illness Narrative PEDIATRIC ABDOMINAL PAIN VISIT SERVICE DATE: 06/12/2021 History was obtained from: patient Amirah Woodard is a 15 year old female brought in by mother for abdominal pain. Tonsils taken out in Mar, She has a wider range of foods she can eat now. Started allergy shots- helping to control asthma Pain is described as: burning Onset of pain / discomfort: 1 month(s) ago Location: MOSTLY CHEST with radiation to throat Severity: moderate When does it occur: right after eating Frequency: most days Duration: 5-10 min Associated Symptoms: feels like throwing up in mouth Amirah's attendance at school or social activities has been affected by her pain. Missed yesterday Pain awakens patient from sleep: No Aggravating factors: eating Symptoms associated w/ dairy intake: No Symptoms associated with fructose: No Symptoms associated w/ intake of other specific foods or meals: no specific Food Intake: Relatively balanced Appetite changes: Yes, since getting her tonsils out it has increased variety Alleviating factors: H2 blockers- took pepcid Stool pattern at present time: BM bid-tid Any change in BM pattern since pain started: No Difficulty/ straining/ pain w/ BM: No Gross blood in BM: No Nausea/ vomiting: No GERD sxs: Yes Unintentional, abnormal wt loss or gain: No Exposures: Travel: No Camping / outdoors: No [place] / streams: No Raw foods: No Pets / reptile exposure: No Family history of GI problems: Positive for: GERD Review Of Systems: Fever: No Rashes: No Joint pain: No Headache: No Respiratory: No cough, hemoptysis, asthma, recent chest infection, wheezing Cardiovascular: No history of chest pain, palpitation, orthopnea, cyanosis, pedal edema Social history: non-contributory Previous DiagnosticTests reviewed: No PAST MEDICAL HISTORY Diagnosis Date Exercise-induced asthma with acute exacerbation 08/09/2016 There is no problem list on file for this patient. PAST SURGICAL HISTORY Procedure Laterality Date TONSILLECTOMY HX 03/24/2021 FAMILY HISTORY Problem Relation Age of Onset None Mother None Father No Known Problems Sister No Known Problems Sister No Known Problems Sister No Known Problems Sister No Known Problems Sister None Maternal Grandmother None Maternal Grandfather None Paternal Grandmother None Paternal Grandfather ALLERGIES Allergen Reactions Seasonal Allergies Other: See Comments Puffy itchy eyes and scratchy throat. MEDICATIONS: MEDICATION, NON-DATABASE allergy injections weekly norgestimate 0.25 mg-ethinyl estradiol 35 mcg (SPRINTEC) 0.25-35 mg-mcg per tablet Take 1 tablet by mouth once daily. omeprazole (PRILOSEC) 20 mg capsule Take 1 capsule by mouth once daily. PHYSICAL EXAMINATION: BP 118/80 Pulse 80 Temp 36.5 C (97.7 F) (Temporal) Resp 18 Wt 82.1 kg (181 lb) LMP 05/27/2021 GENERAL: alert and active in no apparent distress EYES: conjunctiva clear EARS: TMs translucent: bilaterally NOSE/SINUSES: no erythema or exudate OROPHARYNX: moist without lesions NECK: supple, no adenopathy CARDIOVASCULAR: Normal rate, regular rhythm, no murmur LUNGS: clear to auscultation bilaterally, good air exchange, no retractions ABDOMEN: soft, nondistended, normal bowel sounds. Tenderness: none Masses: none Organomegaly: none Rectal: deferred MUSCULOSKELETAL: Extremities with FROM and no problems identified. SKIN: No rashes, lesions or skin changes ASSESSMENT/PLAN: Amirah Woodard is a 15 year old female who presents with abdominal pain. Encounter Diagnosis ICD-10-CM 1. Gastroesophageal reflux disease, unspecified whether esophagitis present K21.9 2. Encounter for immunization Z23 TDAP VACCINE AGE 7+ IM MENINGOCOCCAL CONJUGATE [id number], IM She has had a partial response when taken Pepcid. I would like to do a month of a PPI with then the plan to stepdown antacid class. -She was instructed to keep a symptom diary of activities or foods that worsens her symptoms. - Worrisome signs and symptoms discussed with patient and caregiver. Follow up: follow up with me in 1 months. To recheck in for well care SIGNATURE: Que Chavez MD PATIENT NAME: Amirah Woodard DATE: June 12, 2021 TIME: 9:13 AM Parent/guardian was counseled [id number] by myself (the billing provider) for the following immunizations, including side effects: Menactra and TdaP. Parent/guardian consents for immunization and understands risks and benefits. A VIS sheet on each immunization was offered to the parent. SIGNATURE: Que Chavez MD PATIENT NAME: Amirah Woodard DATE: June 12, 2021 TIME: 9:29 AM documented in this encounter [facility] 06-12-2021 Instructions Que Chavez MD - 06/12/2021 9:13 AM EDT 5 to Go!TM Healthy Kids Inside & Out 5 Eat FIVE fruits and veggies a day 4 Give and get FOUR compliments a day 3 Consume THREE calcium products a day 2 Limit media time to TWO hours a day 1 Get at least ONE hour of exercise a day 0 Consume ZERO sugar-sweetened drinks Go! Be healthy, inside and out! www.[facility].org/5toGo documented in this encounter [facility] 08-09-2016 History of Past i llness Narrative Problem Noted Date Resolved Date Exercise-induced asthma with acute exacerbation 08/09/2016 06/12/2021 documented as of this encounter (statuses as of 06/12/2021) [facility] History of Past illness Narrative* Problem Noted Date Resolved Date Exercise-induced asthma with acute exacerbation 08/09/2016 06/12/2021 documented as of this encounter (statuses as of 07/13/2021) [facility] History of Past illness Narrative* Problem Noted Date Resolved Date Exercise-induced asthma with acute exacerbation 08/09/2016 06/12/2021 documented as of this encounter (statuses as of 09/18/2021) [facility] History of Past illness Narrative* Problem Noted Date Resolved Date Exercise-induced asthma with acute exacerbation 08/09/2016 06/12/2021 documented as of this encounter (statuses as of 10/05/2021) [facility] History of Past illness Narrative* Problem Noted Date Resolved Date Exercise-induced asthma with acute exacerbation 08/09/2016 06/12/2021 documented as of this encounter (statuses as of 10/28/2021) [facility] of Past illness Narrative* Problem Noted Date Resolved Date Exercise-induced asthma with acute exacerbation 08/09/2016 06/12/2021 documented as of this encounter (statuses as of 12/28/2021) [facility] of Past illness Narrative* Problem Noted Date Resolved Date Exercise-induced asthma with acute exacerbation 08/09/2016 06/12/2021 documented as of this encounter (statuses as of 01/18/2022) [facility] of Past illness Narrative* Problem Noted Date Resolved Date Exercise-induced asthma with acute exacerbation 08/09/2016 06/12/2021 documented as of this encounter (statuses as of 03/16/2022) [facility] of Past illness Narrative* Problem Noted Date Resolved Date Exercise-induced asthma with acute exacerbation 08/09/2016 06/12/2021 documented as of this encounter (statuses as of 04/09/2022) [facility] of Past illness Narrative* Problem Noted Date Resolved Date Exercise-induced asthma with acute exacerbation 08/09/2016 06/12/2021 documented as of this encounter (statuses as of 04/12/2022) [facility] of Past illness Narrative* Problem Noted Date Resolved Date Exercise-induced asthma with acute exacerbation 08/09/2016 06/12/2021 documented as of this encounter (statuses as of 04/13/2022) [facility] of Past illness Narrative* Problem Noted Date Resolved Date Exercise-induced asthma with acute exacerbation 08/09/2016 06/12/2021 documented as of this encounter (statuses as of 05/03/2022) [facility] of Past illness Narrative* Problem Noted Date Resolved Date Exercise-induced asthma with acute exacerbation 08/09/2016 06/12/2021 documented as of this encounter (statuses as of 05/07/2022) [facility] of [facility] illness Narrative* Problem Noted Date Resolved Date Exercise-induced asthma with acute exacerbation 08/09/2016 06/12/2021 documented as of this encounter (statuses as of 05/11/2022) [facility] of [facility] illness Narrative* Problem Noted Date Resolved Date Exercise-induced asthma with acute exacerbation 08/09/2016 06/12/2021 documented as of this encounter (statuses as of 05/27/2022) [facility] of [facility] illness Narrative* Problem Noted Date Resolved Date Exercise-induced asthma with acute exacerbation 08/09/2016 06/12/2021 documented as of this encounter (statuses as of 07/13/2022) [facility] of [facility] illness Narrative* Problem Noted Date Resolved Date Exercise-induced asthma with acute exacerbation 08/09/2016 06/12/2021 documented as of this encounter (statuses as of 07/16/2022) [facility] of [facility] illness Narrative* Problem Noted Date Diagnosed Date Resolved Date Exercise-induced asthma with acute exacerbation 08/09/2016 06/12/2021 documented as of this encounter (statuses as of 10/06/2022) [facility] of [facility] illness Narrative* Problem Noted Date Diagnosed Date Resolved Date Exercise-induced asthma with acute exacerbation 08/09/2016 06/12/2021 documented as of this encounter (statuses as of 11/12/2022) [facility] of [facility] illness Narrative* Problem Noted Date Diagnosed Date Resolved Date Exercise-induced asthma with acute exacerbation 08/09/2016 06/12/2021 documented as of this encounter (statuses as of 04/28/2023) [facility] of [facility] illness Narrative* Problem Noted Date Diagnosed Date Resolved Date Exercise-induced asthma with acute exacerbation 08/09/2016 06/12/2021 documented as of this encounter (statuses as of 05/13/2023) [facility] of [facility] illness Narrative* Problem Noted Date Diagnosed Date Resolved Date Exercise-induced asthma with acute exacerbation 08/09/2016 06/12/2021 documented as of this encounter (statuses as of 05/14/2023) [facility] of [facility] illness Narrative* Problem Noted Date Diagnosed Date Resolved Date Exercise-induced asthma with acute exacerbation 08/09/2016 06/12/2021 documented as of this encounter (statuses as of 05/16/2023) [facility] of [facility] illness Narrative* Problem Noted Date Diagnosed Date Resolved Date Exercise-induced asthma with acute exacerbation 08/09/2016 06/12/2021 documented as of this encounter (statuses as of 05/18/2023) [facility] of [facility] illness Narrative* Problem Noted Date Diagnosed Date Resolved Date Exercise-induced asthma with acute exacerbation 08/09/2016 06/12/2021 documented as of this encounter (statuses as of 06/24/2023) [facility] Author [facility] Note Date/Time September 04, 2024 12:01 pm [facility] Medical Records Department [address] [place] [address] Emergency Department Summary 09/04/24 MR#: [id number] Acct: [id number] Name: AMIRAH WOODARD Rep #:[id number] : 2005 19 From: Conrado Richardson MD PCP: Dr. Ruiz Vega, DO Status:RE G ER Location: ED HPI History of Present Illness Chief Complaint: Chest Pain Informant: patient Onset/Context/Timing Onset: Today and Hours Activity at onset: gradual Timing: Continuous Quality: Positive for Pain Current Severity: Mild Maximum Severity: Mild Worsened By: Nothing Relieved By: Nothing Associated Symptoms: Positive for Dyspnea; Negative for Nausea, Vomiting, Diaphoresis, Cough, Fever, Lightheadedness, Acid Reflux or Palpitations Narrative Narrative: 19-year-old female no significant past medical history. Currently 35 weeks . G1, P0 Ab0 due date October 09, 2024. This morning started having shortness of breath with chest discomfort that was diffuse. Lightheadedness. 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 Adrienne Marin. Who called me. Patient is beingsent in to rule out pulmonary emboli. They did heart tones in the office and are currently not concerned with the itself. Patient has no history of DVT or PE. No recent surgery or hospitalization. No calf pain or hemoptysis. Prior Similar Symptoms: No Recent Illness/Hospitalization: No CVD Risk Factors: Negative for Hypertension, Diabetes, Hypercholesterolemia or Smoking PE Risk Factors: Positive for - (35 weeks .); Negative for Recent Travel/Surgery, Recent Immobilization, Prior DVT or PE, Cancer or OCP + Smoking + >/=35 TAD Risk Factors: Negative for Marfan's Syndrome or Hypertension [facility] Medical History Left ankle pain Home Medications ?Medication ?Instructions ?Recorded ?Last Taken ?Type Lactobacillus 25 billion cap PO 10/04/23 Unknown Hist ory cell-Bifido 25 billion [id number]-[id number] capsule albuterol sulfate 90 mcg/actuation inhalation 10/04/23 Unknown History aerosol inhaler vits 75-iron 28 mg-folic pkg PO 02/24/24 Unkn own History acid 800 mcg-omega-3 oral combo pack (One A Day Women's DHA) Allergy/AdvReac Type Severity Reaction Status Date / Time No Known Allergies Allergy Verified 09/04/24 10:12 Surgical History Hx of wisdom tooth extraction Hx of tonsillectomy Social History household members: spouse housing: house Smoking Status: Never smoker ROS ROS ED ROS Narrative Chest pain today dyspnea. Decelerated heart rate. Constitutional Constitutional ED: Denies fever(s) Eyes Eyes: Reports none ENT ENT ED: Denies ear pain Cardiovascular Cardiovascular: Reports as per HPI, chest pain, palpitations and racing heartbeat Respiratory/Chest Respiratory/Chest: Reports dyspnea; Denies cough Gastrointestinal Gastrointestinal: Denies abdominal pain, constipation, diarrhea, melena, nausea or vomiting Genitourinary Genitourinary ED: Denies dysuria or hematuria Musculoskeletal Musculoskeletal: Denies arthralgias or back pain Integumentary Denies abscess Neurologic Neurologic: Denies headache(s) Psychiatric Psychiatric: Denies anxiety Endocrine Endocrinology: Denies cold intolerance Hematologic/Lymphatic Hematologic/Lymphatic: Denies easy bleeding or easy bruising Allergic/Immunologic Allergic/Immunologic ED: Denies mouth swelling, tongue swelling or urticaria EXAM Physical Exam Narrative Exam Narrative: Well-appearing 19-year-old female. Vital signs stable initial heart rate in triage is 122 currently at 102. Her pulse ox is 98% on room air no hypoxia. She is in no distress. Significant other at bedside. H EENT exam pupils round react light. Extra motions are intact. Neck nontender no JVD. Lungs clear to auscultation bilaterally. Heart tachycardic 102 no murmur. Chest wall ribs nontender. Abdomen soft, nontender, nondistended, normal bowel sounds without peritoneal signs. She is gravid nontender abdomen. Moving all 4 extremities. Calves are nontender without cords. Trace edema at the ankles bilaterally. Dorsi plantarflexion intact. Normal butt maker strength. Normal radial pulses. Back nontender. Neurologically she is awake alert. Answering questions following commands. Const Vital Signs: 09/04/24 10:11 09/04/24 10:30 09/04/24 10:57 Temperature 96.1 F L Temperature Source Temporal Pulse Rate 122 H Respiratory Rate 14 Respiratory Effort Normal Non-Labored Blood Pressure 119/81 H Blood Pressure Mean 93 Pulse Ox 98 Oxygen Delivery Method Room Air Room Air Positive well nourished and well developed; Negative for obese, cachectic or contractures General Appearance ED: well developed and NAD; Negative for cachectic, contractures or pallor Nutritional Appearance: Negative for cachectic or obese HEENT Reports moist mucous membranes normocephalic and atraumatic Eyes PERRL and EOMs intact bilaterally Neck no lymphadenopathy, supple and no JVD Chest Wall inspection of chest normal and palpation of chest normal Resp normal respiratory effort and clear to auscultation bilaterally Cardio regular rhythm, S1 normal heart sound, S2 normal heart sound and no murmurs; Negative for regular rate Rate: tachycardic Peripheral Pulses: pulses 2+ throughout GI normal to inspection, nondistended, normoactive bowel sounds, soft to palpation,non-tender, non-distended and no masses GI Narrative: Gravid nontender uterus. Nontender abdomen. Back/Spine no CVA tenderness and no thoracic nor lumbar tenderness Extremity normal to inspection General Extremety ED: Negative for edema, pulses abnormal or tenderness General Extremity: Negative for edema or pulses abnormal Neuro oriented x3 and CN's II-XII intact bilaterally Sensorium / Orientation: awake, alert, oriented to person, oriented to place andoriented to time; Negative for confused or lethargic Psych mental status grossly normal Mood & Affect: Negative for depressed or tearful Skin no rashes or lesions noted and no wounds General Skin Exam: Negative for jaundice or pallor Rashes: No rashes noted Trauma: Negative for abrasion, laceration or puncture MDM MDM MDM Narrative Medical decision making narrative: 19-year-old female 35 weeks atypical chest pain with mild tachycardia. Rule out pulmonary emboli. Patient undergo cardiac workup with a CTA of her chest. Repeat exam patient is doing well at noon. Repeat exam is unchanged benign we went over her test results. She will be discharged home for chest pain uncertain etiology. Tylenol for pain. Outpatient follow-up with her [employer]. History & Record Review Discussion w/independent historian: Patient and Family Additional record(s) reviewed:: Prior inpatient record, Prior outpatient record,Prior ED visit and Prior labs Lab Data Attestation: I reviewed the patient's lab results. Lab results narrative: CBC shows white 11.8. H&H 11.6 35.4. Platelets 256. Chemistries show sodium 137. Gap 11. BUN and creatinine of 7 and 0.45. Glucose 91. Troponin 7. CTA was normal. No PE. No dissection. No old labs available for comparison. Labs: Laboratory Results - last 24 hr 09/04/24 10:45 WBC 11.8 H RBC 4.22 Hgb 11.6 L Hct 35.4 L MCV 83.9 MCH 27.5 MCHC 32.8 RDW Std Deviation 40.2 RDW Coeff of Teena 13.2 Plt Count 256 MPV 9.4 Immature Gran % (Auto) 1.200 H Neut % (Auto) 70.6 H Lymph % (Auto) 16.7 L [place] % (Auto) 8.8 Eos % (Auto) 2.2 Baso % (Auto) 0.5 Absolute Neuts (auto) 8.4 H Absolute Lymphs (auto) 1.97 Nucleated RBC % 0 Sodium 137 Potassium 3.8 Chloride 105 Carbon Dioxide 20.3 L Anion Gap 11 BUN 7 Creatinine 0.45 L Estim Creat Clear Calc 226.86 Est GFR (MDRD) Non-Af 141 BUN/Creatinine Ratio 15.7 Glucose 91 Calcium 8.7 Troponin T High Sens 7 Radiography Diagnostic Testing: Clinical Impression(s) from Imaging Studies Chest CTA 09/04/24 10:55 IMPRESSION: No demonstrated PE, or thoracic aortic aneurysm or dissection No acute pulmonary process Reading Location: [facility] Rhythm Strip Rhythm Strip: Sinus Tach Rate: 113 Ectopy: None EKG Initial EKG: Attestation: I personally reviewed and interpreted this EKG as follows: Interpretation: No Acute Injury Pattern and Sinus Tachycardia Comments: Sinus tachycardia rate of 113 no acute signs of AR or ischemia. Discharge Plan Triage Chief Complaint: Chest Pain ED Provider: Conrado Richardson Dx/Rx/DC Orders Clinical Impression: Chest pain, Third trimester Instructions: ED Chest Pain, Uncertain Cause Prescriptions: No Action albuterol sulfate 90 mcg/actuation HFA aerosol inhaler inhalation Lacto no.99-Nxvsgc-KBS-larch 25B cell-25B cell-50 mg capsule PO One A Day Women's DHA 28 mg iron- 800 mcg combo pack PO Primary Care Provider: Ruiz Vega Referrals: Ruiz Vega DO [Primary Care Provider] - As Needed Janelle Marin MD [Med Staff - Active Staff] - As Needed Activity Restrictions/Additional Instructions: Follow-up your [employer] and your primary care physician as needed. Your test today looked good. No signs of a blood clot or heart attack. Print Language: Ukrainian Disposition Disposition: Home, Self Care What to do if you have Problems For any increased pain, shortness of breath, bleeding, nausea or vomiting, chestpain, or any unexpected problems, contact your Primary Care Provider. Call [facility] ([phone]) or report to the closest Emergency Room. Call 911 if necessary. 09/04/24 1201 <Electronically signed by Conrado Richardson MD> Cosigner Signature (if applicable): CC: Dr. Ruiz Vega DO ~ Signed [facility] Work Phone: Evaluation note* Diagnosis Gastroesophageal reflux disease, unspecified whether esophagitis present- Primary Encounter for immunization Need for other specified prophylactic vaccination against single bacterial disease [facility] Encounter for WCC (well child check) with abnormal findings- Primary Gastroesophageal reflux disease, unspecified whether esophagitis present Allergic rhinitis, unspecified seasonality, unspecified trigger [facility] Diagnosis Pelvic pain in female- Primary Unspecified symptom associated with female genital organs [facility] Diagnosis Upper respiratory symptom- Primary Other symptoms involving respiratory system and chest Suspected COVID-19 virus infection [facility] Diagnosis Seasonal allergies- Primary Allergic rhinitis, cause unspecified [facility] Diagnosis Encounter for immunization- Primary Need for other specified prophylactic vaccination against single bacterial disease [facility] Diagnosis Acute cough- Primary Fever, unspecified fever cause Sore throat Acute pharyngitis URI with cough and congestion [facility] Diagnosis Pelvic pain in female- Primary Unspecified symptom associated with female genital organs Encounter for surveillance of contraceptive pills Surveillance of previously prescribed contraceptive pill [facility] Diagnosis Vaginal irritation- Primary Unspecified noninflammatory disorder of vagina [facility] Diagnosis Dysfunction of both eustachian tubes- Primary Dysfunction of Eustachian tube Seasonal allergies Allergic rhinitis, cause unspecified [facility] Diagnosis URI, acute- Primary Acute upper respiratory infections of unspecified site Wheezing [facility] Diagnosis Missed period- Primary Irregular menstrual cycle Encounter for other contraceptive management [facility] Diagnosis Encounter for wellness examination in adult- Primary Encounter for immunization Need for other specified prophylactic vaccination against single bacterial disease [facility] Diagnosis Malpositioned intrauterine device (IUD), initial encounter- Primary Encounter for IUD removal Encounter for removal of intrauterine contraceptive device [facility] Diagnosis Pelvic pain in female Unspecified symptom associated with female genital organs [facility] Diagnosis Encounter for IUD removal- Primary Encounter for removal of intrauterine contraceptive device Displacement of intrauterine contraceptive device, initial encounter Malpositioned intrauterine device (IUD), initial encounter [facility] Diagnosis Vaginal discharge- Primary Leukorrhea, not specified as infective Vaginal itching Pruritus of genital organs Pelvic pain in female Unspecified symptom associated with female genital organs [facility] Diagnosis Pes planus of both feet- Primary Pain in archer, unspecified laterality Acute upper respiratory infection Acute upper respiratory infections of unspecified site Mild intermittent asthma with (acute) exacerbation [facility] Diagnosis Wheezing [facility] Diagnosis Vaginal burning- Primary Other specified symptom associated with female genital organs [facility] Diagnosis BV (bacterial vaginosis) Vaginitis and vulvovaginitis, unspecified [facility] Diagnosis Wheezing [facility] Diagnosis Vaginal discharge- Primary Leukorrhea, not specified as infective [facility] Diagnosis Sore throat- Primary Acute pharyngitis Viral illness Unspecified viral infection, in conditions classified elsewhere and of unspecified site [facility] Diagnosis Vaginal burning- Primary Other specified symptom associated with female genital organs [facility] Diagnosis Wheezing [facility] Diagnosis Wheezing [facility]* Diagnosis Encounter for wellness examination in adult- Primary Mild intermittent asthma with (acute) exacerbation Seborrhea Adverse food reaction, initial encounter [facility]* Diagnosis Vaginal discharge- Primary Leukorrhea, not specified as infective Vaginal irritation Unspecified noninflammatory disorder of vagina Family history of thyroid disorder Family history of other endocrine and metabolic diseases [facility]* Diagnosis Encounter for test, result positive- Primary examination or test, positive result [facility]* Diagnosis Encounter for care in first trimester of first - Primary 7 weeks gestation of state, incidental Vaginal irritation Unspecified noninflammatory disorder of vagina BMI 32.0-32.9,adult Body Mass Index 32.0-32.9, adult Supervision of normal first teen in first trimester [facility]* Diagnosis Sore throat- Primary Acute pharyngitis [facility]* Diagnosis Acute non-recurrent frontal sinusitis- Primary [facility]* Diagnosis Vaginal irritation- Primary Unspecified noninflammatory disorder of vagina Vaginal discharge Leukorrhea, not specified as infective Encounter for care in first trimester of first 12 weeks gestation of state, incidental [facility] Diagnosis Supervision of normal first teen in first trimester- Primary 13 weeks gestation of state, incidental Obesity in Obesity complicating , childbirth, or the puerperium, unspecified as to episode of care or not applicable [facility] Diagnosis Encounter for screening for malformation using ultrasound- Primary 13 weeks gestation of state, incidental [facility]* Diagnosis Wheezing [facility]* Diagnosis Supervision of normal first teen in second trimester- Primary Obesity in Obesity complicating , childbirth, or the puerperium, unspecified as to episode of care or not applicable 16 weeks gestation of state, incidental Dizziness Dizziness and giddiness documented [facility]* Diagnosis Supervision of normal first teen in second trimester- Primary Obesity in Obesity complicating , childbirth, or the puerperium, unspecified as to episode of care or not applicable 20 weeks gestation of state, incidental [facility]* Diagnosis Obesity in - Primary Obesity complicating , childbirth, or the puerperium, unspecified as to episode of care or not applicable Supervision of normal first teen in first trimester 13 weeks gestation of state, incidental documented in this encounter [facility] note* Diagnosis Obesity in (HCC)- Primary Obesity complicating , childbirth, or the puerperium, unspecified as to episode of care or not applicable Supervision of normal first teen in second trimester (HCC) 22 weeks gestation of (HCC) state, incidental Cramping affecting , antepartum (HCC) documented in this encounter [facility] note* Diagnosis 24 weeks gestation of (HCC)- Primary state, incidental Obesity in (HCC) Obesity complicating , childbirth, or the puerperium, unspecified as to episode of care or not applicable Screening for diabetes mellitus * Assessment & Plan Note - Janelle Marin MD - 06/19/2024 2:51 PM EDTAssociated Problem(s): Obesity in (HCC) documented in this encounter [facility] note* Diagnosis 24 weeks gestation of (HCC)- Primary state, incidental Obesity in (HCC) Obesity complicating , childbirth, or the puerperium, unspecified as to episode of care or not applicable Screening for diabetes mellitus 24 weeks gestation of (HCC)- Primary state, incidental Obesity in (HCC) Obesity complicating , childbirth, or the puerperium, unspecified as to episode of care or not applicable Supervision of normal first teen in second trimester (HCC) Decreased movements in second trimester, single or unspecified fetus (HCC) documented in this encounter [facility] note* Diagnosis 24 weeks gestation of (HCC)- Primary state, incidental Obesity in (HCC) Obesity complicating , childbirth, or the puerperium, unspecified as to episode of care or not applicable Screening for diabetes mellitus Supervision of high risk in third trimester ([facility])- Primary Unspecified high-risk 28 weeks gestation of ([facility]) state, incidental Obesity affecting in third trimester, unspecified obesity type (HCC) Vaginal discharge during in third trimester ([facility]) documented in this encounter [facility] note* Diagnosis 24 weeks gestation of (HCC)- Primary state, incidental Obesity in ([facility]) Obesity complicating , childbirth, or the puerperium, unspecified as to episode of care or not applicable Screening for diabetes mellitus Supervision of high risk in third trimester ([facility])- Primary Unspecified high-risk 30 weeks gestation of ([facility]) state, incidental Rash Rash and other nonspecific skin eruption Other obesity due to excess calories affecting , antepartum ([facility]) Allergic rhinitis, unspecified seasonality, unspecified trigger * Assessment & Plan Note - Castillo Mckeon MD - 08/01/2024 9:51 AM EDT Associated Problem(s): Supervision of high risk in third trimester ([facility]) Orders: COMPLETE BLOOD COUNT AND DIFFERENTIAL; Future COMPREHENSIVE METABOLIC PANEL; Future BILE ACIDS, TOTAL; Future * Assessment & Plan Note - Castillo Mckeon MD - 08/01/2024 9:51 AM EDT Associated Problem(s): Allergic rhinitis documented in this encounter [facility] note* Diagnosis 24 weeks gestation of (HCC)- Primary state, incidental Obesity in (HCC) Obesity complicating , childbirth, or the puerperium, unspecified as to episode of care or not applicable Screening for diabetes mellitus Supervision of high risk in third trimester ([facility])- Primary Unspecified high-risk 30 weeks gestation of ([facility]) state, incidental Rash Rash and other nonspecific skin eruption Other obesity due to excess calories affecting , antepartum (HCC) Allergic rhinitis, unspecified seasonality, unspecified trigger Well adult exam- Primary Routine general medical examination at a health care facility 31 weeks gestation of (HCC) state, incidental Class 2 obesity with body mass index (BMI) of 35.0 to 35.9 in adult, unspecified obesity type, unspecified whether serious comorbidity present Gastroesophageal reflux disease without esophagitis Esophageal reflux documented in this encounter [facility] note* Diagnosis 24 weeks gestation of (HCC)- Primary state, incidental Obesity in (HCC) Obesity complicating , childbirth, or the puerperium, unspecified as to episode of care or not applicable Screening for diabetes mellitus Supervision of high risk in third trimester (HCC)- Primary Unspecified high-risk 30 weeks gestation of (HCC) state, incidental Rash Rash and other nonspecific skin eruption Other obesity due to excess calories affecting , antepartum (HCC) Allergic rhinitis, unspecified seasonality, unspecified trigger Supervision of high risk in third trimester (HCC)- Primary Unspecified high-risk 32 weeks gestation of (HCC) state, incidental Obesity affecting in third trimester, unspecified obesity type (HCC) documented in this encounter [facility] note* Diagnosis 24 weeks gestation of (HCC)- Primary state, incidental Obesity in (HCC) Obesity complicating , childbirth, or the puerperium, unspecified as to episode of care or not applicable Screening for diabetes mellitus Supervision of high risk in third trimester (HCC)- Primary Unspecified high-risk 30 weeks gestation of (HCC) state, incidental Rash Rash and other nonspecific skin eruption Other obesity due to excess calories affecting , antepartum (HCC) Allergic rhinitis, unspecified seasonality, unspecified trigger Supervision of high risk in third trimester (HCC)- Primary Unspecified high-risk Obesity affecting in third trimester, unspecified obesity type (HCC) 34 weeks gestation of (HCC) state, incidental documented in this encounter [facility] noteNo assessment information availableWSelect [facility] Work Phone: Evaluation note* Diagnosis 24 weeks gestation of (HCC)- Primary state, incidental Obesity in (HCC) Obesity complicating , childbirth, or the puerperium, unspecified as to episode of care or not applicable Screening for diabetes mellitus Supervision of high risk in third trimester (HCC)- Primary Unspecified high-risk 30 weeks gestation of (HCC) state, incidental Rash Rash and other nonspecific skin eruption Other obesity due to excess calories affecting , antepartum (HCC) Allergic rhinitis, unspecified seasonality, unspecified trigger Supervision of high risk in third trimester (HCC)- Primary Unspecified high-risk Obesity affecting in third trimester, unspecified obesity type (HCC) 35 weeks gestation of (HCC) state, incidental * Assessment & Plan Note - Janelle Marin MD - 09/04/2024 9:58 AM EDTAssociated Problem(s): Supervision of high risk in third trimester (HCC) Orders: URINE OB DIP B/O * Assessment & Plan Note - Janelle Marin MD - 09/04/2024 9:58 AM EDTAssociated Problem(s): Obesity complicating , third trimester (HCC) Orders: URINE OB DIP B/O [facility] Diagnosis 24 weeks gestation of (HCC)- Primary state, incidental Obesity in (HCC) Obesity complicating , childbirth, or the puerperium, unspecified as to episode of care or not applicable Screening for diabetes mellitus Supervision of high risk in third trimester (HCC)- Primary Unspecified high-risk 30 weeks gestation of (HCC) state, incidental Rash Rash and other nonspecific skin eruption Other obesity due to excess calories affecting , antepartum (HCC) Allergic rhinitis, unspecified seasonality, unspecified trigger Supervision of high risk in third trimester (HCC)- Primary Unspecified high-risk Obesity affecting in third trimester, unspecified obesity type (HCC) 35 weeks gestation of (HCC) state, incidental 36 weeks gestation of (HCC)- Primary state, incidental Supervision of high risk in third trimester (HCC) Unspecified high-risk Obesity affecting in third trimester, unspecified obesity type (HCC) Heartburn during in third trimester (HCC) * Assessment & Plan Note - Castillo Mckeon MD - 09/12/2024 10:52 AM EDT Associated Problem(s): Supervision of high risk in third trimester (HCC) Orders: URINE OB DIP B/O * Assessment & Plan Note - Castillo Mckeon MD - 09/12/2024 10:52 AM EDT Associated Problem(s): Obesity complicating , third trimester (HCC) Orders: URINE OB DIP B/O * Assessment & Plan Note - Castillo Mckeon MD - 09/12/2024 10:52 AM EDT Associated Problem(s): Heartburn during in third trimester (HCC) rx pepcid [facility] Diagnosis 24 weeks gestation of (HCC)- Primary state, incidental Obesity in (HCC) Obesity complicating , childbirth, or the puerperium, unspecified as to episode of care or not applicable Screening for diabetes mellitus Supervision of high risk in third trimester (HCC)- Primary Unspecified high-risk 30 weeks gestation of ([facility]) state, incidental Rash Rash and other nonspecific skin eruption Other obesity due to excess calories affecting , antepartum ([facility]) Allergic rhinitis, unspecified seasonality, unspecified trigger Supervision of high risk in third trimester (HCC)- Primary Unspecified high-risk Obesity affecting in third trimester, unspecified obesity type (HCC) 35 weeks gestation of (HCC) state, incidental 36 weeks gestation of (HCC)- Primary state, incidental Supervision of high risk in third trimester (HCC) Unspecified high-risk Obesity affecting in third trimester, unspecified obesity type (HCC) Heartburn during in third trimester (HCC) Supervision of high risk in third trimester ([facility])- Primary Unspecified high-risk 37 weeks gestation of ([facility]) state, incidental Positive GBS test documented in this encounter [facility] note* Diagnosis 24 weeks gestation of (HCC)- Primary state, incidental Obesity in (HCC) Obesity complicating , childbirth, or the puerperium, unspecified as to episode of care or not applicable Screening for diabetes mellitus Supervision of high risk in third trimester (HCC)- Primary Unspecified high-risk 30 weeks gestation of ([facility]) state, incidental Rash Rash and other nonspecific skin eruption Other obesity due to excess calories affecting , antepartum ([facility]) Allergic rhinitis, unspecified seasonality, unspecified trigger Supervision of high risk in third trimester ([facility])- Primary Unspecified high-risk Obesity affecting in third trimester, unspecified obesity type (HCC) 35 weeks gestation of ([facility]) state, incidental 36 weeks gestation of ([facility])- Primary state, incidental Supervision of high risk in third trimester ([facility]) Unspecified high-risk Obesity affecting in third trimester, unspecified obesity type (HCC) Heartburn during in third trimester ([facility]) Supervision of high risk in third trimester ([facility])- Primary Unspecified high-risk 38 weeks gestation of ([facility]) state, incidental * Assessment & Plan Note - Janelle Marin MD - 09/25/2024 2:23 PM EDTAssociated Problem(s): Supervision of high risk in third trimester ([facility]) Orders: URINE OB DIP B/O documented in this encounter [facility] note* Diagnosis 24 weeks gestation of (HCC)- Primary state, incidental Obesity in ([facility]) Obesity complicating , childbirth, or the puerperium, unspecified as to episode of care or not applicable Screening for diabetes mellitus Supervision of high risk in third trimester ([facility])- Primary Unspecified high-risk 30 weeks gestation of ([facility]) state, incidental Rash Rash and other nonspecific skin eruption Other obesity due to excess calories affecting , antepartum (HCC) Allergic rhinitis, unspecified seasonality, unspecified trigger Supervision of high risk in third trimester (HCC)- Primary Unspecified high-risk Obesity affecting in third trimester, unspecified obesity type (HCC) 35 weeks gestation of (HCC) state, incidental 36 weeks gestation of (HCC)- Primary state, incidental Supervision of high risk in third trimester (HCC) Unspecified high-risk Obesity affecting in third trimester, unspecified obesity type (HCC) Heartburn during in third trimester (HCC) Supervision of high risk in third trimester (HCC)- Primary Unspecified high-risk 38 weeks gestation of (HCC) state, incidental 39 weeks gestation of (HCC)- Primary state, incidental Supervision of high risk in third trimester (HCC) Unspecified high-risk Obesity in (HCC) Obesity complicating , childbirth, or the puerperium, unspecified as to episode of care or not applicable Positive GBS test documented in this encounter [facility] Discharge instructionsAdditional Instructions Follow-up your [employer] and your primary care physician as needed. Your test today looked good. No signs of a blood clot or heart attack.[facility] Work Phone: [facility] for referral (narrative)* Outpatient Procedure (Routine) - Pending Review Specialty Diagnoses / Procedures Referred By Lance cantu Referred To Contact [facility] Diagnoses Malpositioned intrauterine device (IUD), initial encounter Encounter for IUD removal Procedures REMOVE INTRAUTERINE DEVICE REMOVE INTRAUTERINE DEVICE Janelle Marin MD [address] [place] [address] [facility] [address] [place] [id number] Referral ID Status Reason Start Date Expiration Date Visits Requested Visits Authorized [id number] Pending Review Auto-Generat ed Referral 05/13/2023 05/12/[address] [facility] for referral (narrative)* Diagnostic Procedure Only (Routine) - Closed Specialty Diagnoses / Procedures Referred By Lance cantu Referred To Contact [facility] Diagnoses Pelvic pain in female Procedures US FEMALE PELVIS TRANSVAG US TRANSVAGINAL Delfina Watson APRN.[facility] [address] [place] [address] [place] [address] Referral ID Status Reason Start Date Expiration Date V isits Requested Visits Authorized [id number] Closed Auto-Generate d Referral 05/03/2023 06/01/[address] [facility] for referral (narrative)* Diagnostic Procedure Only (Routine) - Closed Specialty Diagnoses / Procedures Referred By Lance t Referred To Contact [facility] Diagnoses Pelvic pain in female Procedures US FEMALE PELVIS TRANSVAG US TRANSVAGINAL Delfina Watson APRN.[facility] [address] [place] [address] [place] [address] Referral ID Status Reason Start Date Expiration Date V isits Requested Visits Authorized [id number] Closed Auto-Generate d Referral 05/03/2023 06/01/[address] [facility] for referral (narrative)* Diagnostic Procedure Only (Routine) - Authorized Specialty Diagnoses / Procedures Referred By Lance t Referred To Contact [facility] Diagnoses Encounter for care in first trimester of first 7 weeks gestation of Procedures NUCHAL TRANSLUCENCY WHI US NUCHAL TRANSLUCENCY 1ST GESTATION Nilda Stiles APRN.CNP [address] [address] [facility] [address] [place] [address] Referral ID Status Reason Start Date Expiration Date Visits Requested Visits Authorized [id number] Authorized Auto-Generat ed Referral 02/20/[address] [facility] for referral (narrative)* Diagnostic Procedure Only (Routine) - Authorized Specialty Diagnoses / Procedures Referred By Contac t Referred To Contact [facility] Diagnoses Supervision of normal first teen in first trimester 13 weeks gestation of Obesity in Procedures OBSTETRIC ULTRASOUND WHI US PREG UTERUS AFTER 1ST TRIMEST GESTATION Delfina Watson APRN.CNM [address] [place] [place] [address] [facility] [address] [place] [address] Referral ID Status Reason Start Date Expiration Date Visits Requested Visits Authorized [id number] Authorized Auto-Generat ed Referral 04/03/2024 04/03/2025 1 1 [facility] (narrative)No reason for referral information availableWSelect [facility] Work Phone: Reason for visit Narrative* Outpatient Procedure (Routine) - Authorized Specialty Diagnoses / Procedures Referred By Contac t Referred To Contact [facility] Diagnoses Malpositioned intrauterine device (IUD), initial encounter Encounter for IUD removal Procedures REMOVE INTRAUTERINE DEVICE REMOVE INTRAUTERINE DEVICE Janelle Marin MD [address] [place] [place] [address] [facility] [address] [place] [address] Referral ID Status Reason Start Date Expiration Date Visits Requested Visits Authorized [id number] Authorized Auto-Generat ed Referral 05/16/2023 03/06/2024 2 2 [facility] Health Concerns Infection Onset Date Last Indicated Resolved Time COVID-19 Rule-Out 10/05/2021 10/05/2021 Infection Onset Date Last Indicated Resolved Time COVID-19 Rule-Out 01/18/2022 01/18/2022 Reason for Referral Specialty Diagnoses / Procedures Referred By Contac t Referred To Contact Diagnoses Ramon Chinchilla MD [address] [place] [address] Referral ID Status Reason Start Date Expiration Date Visits Re quested Visits Authorized [id number] Closed 1 1 Specialty Diagnoses / Procedures Referred By Contac t Referred To Contact Diagnoses BV (bacterial vaginosis) Nilda Stiles APRN.[employer]ATOR [address] [place] [address] Referral ID Status Reason Start Date Expiration Date Visits Re quested Visits Authorized [id number] Closed 1 1 Specialty Diagnoses / Procedures Referred By Contac t Referred To Contact Allergy Diagnoses Adverse food reaction, initial encounter Procedures CONSULT TO ALLERGY/IMMUNOLOGY OFFICE/OUTPATIENT NEW HIGH MDM 60 MINUTES Sommer Hernandez PA-C [address] [place] [address] Referral ID Status Reason Start Date Expiration Date Visits Requested Visits Authorized [id number] Authorized PCP Requested Referral 10/31/2023 10/30/2024 1 1 Chief Complaint and Reason for Visit Chief Complaint Admit Date SOB September 04, 2024 10:11 am Advance Directives No Advanced Directives Records Found Advance Directive Response Recorded Date/ Time Do you have a Healthcare Power of Striker Off? No September 04, 2024 10:30am Summary Purpose Family History No Family History Records FoundNo Family History Records Found Additional Source Comments Source Comments (unrecognize d section and content) In the event this informatio n is protected by the Federal Confidentiality of Alcohol and Drug Abuse Patient Records regulations: The Federal rules restrict any use of the information to criminally investigate or prosecute any alcohol or drug abuse patient.[facility] HospitalIn the event this information is protected by the Federal Confidentiality of Alcohol and Drug Abuse Patient Records regulations: The Federal rules restrict any use of the information to criminally investigate or prosecute any alcohol or drug abuse patient.[facility] HospitalIn the event this information is protected by the Federal Confidentiality of Alcohol and Drug Abuse Patient Records regulations: The Federal rules restrict any use of the information to criminally investigate or prosecute any alcohol or drug abuse patient.[facility] HospitalIn the event this information is protected by the Federal Confidentiality of Alcohol and Drug Abuse Patient Records regulations: The Federal rules restrict any use of the information to criminally investigate or prosecute any alcohol or drug abuse patient.[facility] HospitalIn the event this information is protected by the Federal Confidentiality of Alcohol and Drug Abuse Patient Records regulations: The Federal rules restrict any use of the information to criminally investigate or prosecute any alcohol or drug abuse patient.[facility] HospitalIn the event this information is protected by the Federal Confidentiality of Alcohol and Drug Abuse Patient Records regulations: The Federal rules restrict any use of the information to criminally investigate or prosecute any alcohol or drug abuse patient.[facility] HospitalIn the event this information is protected by the Federal Confidentiality of Alcohol and Drug Abuse Patient Records regulations: The Federal rules restrict any use of the information to criminally investigate or prosecute any alcohol or drug abuse patient.[facility] HospitalIn the event this information is protected by the Federal Confidentiality of Alcohol and Drug Abuse Patient Records regulations: The Federal rules restrict any use of the information to criminally investigate or prosecute any alcohol or drug abuse patient.[facility] HospitalIn the event this information is protected by the Federal Confidentiality of Alcohol and Drug Abuse Patient Records regulations: The Federal rules restrict any use of the information to criminally investigate or prosecute any alcohol or drug abuse patient.[facility] HospitalIn the event this information is protected by the Federal Confidentiality of Alcohol and Drug Abuse Patient Records regulations: The Federal rules restrict any use of the information to criminally investigate or prosecute any alcohol or drug abuse patient.[facility] HospitalIn the event this information is protected by the Federal Confidentiality of Alcohol and Drug Abuse Patient Records regulations: The Federal rules restrict any use of the information to criminally investigate or prosecute any alcohol or drug abuse patient.[facility] HospitalIn the event this information is protected by the Federal Confidentiality of Alcohol and Drug Abuse Patient Records regulations: The Federal rules restrict any use of the information to criminally investigate or prosecute any alcohol or drug abuse patient.[facility] HospitalIn the event this information is protected by the Federal Confidentiality of Alcohol and Drug Abuse Patient Records regulations: The Federal rules restrict any use of the information to criminally investigate or prosecute any alcohol or drug abuse patient.[facility] HospitalIn the event this information is protected by the Federal Confidentiality of Alcohol and Drug Abuse Patient Records regulations: The Federal rules restrict any use of the information to criminally investigate or prosecute any alcohol or drug abuse patient.[facility] HospitalIn the event this information is protected by the Federal Confidentiality of Alcohol and Drug Abuse Patient Records regulations: The Federal rules restrict any use of the information to criminally investigate or prosecute any alcohol or drug abuse patient.[facility] HospitalIn the event this information is protected by the Federal Confidentiality of Alcohol and Drug Abuse Patient Records regulations: The Federal rules restrict any use of the information to criminally investigate or prosecute any alcohol or drug abuse patient.[facility] HospitalIn the event this information is protected by the Federal Confidentiality of Alcohol and Drug Abuse Patient Records regulations: The Federal rules restrict any use of the information to criminally investigate or prosecute any alcohol or drug abuse patient.[facility] HospitalIn the event this information is protected by the Federal Confidentiality of Alcohol and Drug Abuse Patient Records regulations: The Federal rules restrict any use of the information to criminally investigate or prosecute any alcohol or drug abuse patient.[facility] the event this information is protected by the Federal Confidentiality of Alcohol and Drug Abuse Patient Records regulations: The Federal rules restrict any use of the information to criminally investigate or prosecute any alcohol or drug abuse patient.[facility] HospitalIn the event this information is protected by the Federal Confidentiality of Alcohol and Drug Abuse Patient Records regulations: The Federal rules restrict any use of the information to criminally investigate or prosecute any alcohol or drug abuse patient.[facility] HospitalIn the event this information is protected by the Federal Confidentiality of Alcohol and Drug Abuse Patient Records regulations: The Federal rules restrict any use of the information to criminally investigate or prosecute any alcohol or drug abuse patient.[facility] HospitalIn the event this information is protected by the Federal Confidentiality of Alcohol and Drug Abuse Patient Records regulations: The Federal rules restrict any use of the information to criminally investigate or prosecute any alcohol or drug abuse patient.[facility] HospitalIn the event this information is protected by the Federal Confidentiality of Alcohol and Drug Abuse Patient Records regulations: The Federal rules restrict any use of the information to criminally investigate or prosecute any alcohol or drug abuse patient.[facility] HospitalIn the event this information is protected by the Federal Confidentiality of Alcohol and Drug Abuse Patient Records regulations: The Federal rules restrict any use of the information to criminally investigate or prosecute any alcohol or drug abuse patient.[facility] HospitalIn the event this information is protected by the Federal Confidentiality of Alcohol and Drug Abuse Patient Records regulations: The Federal rules restrict any use of the information to criminally investigate or prosecute any alcohol or drug abuse patient.[facility] HospitalIn the event this information is protected by the Federal Confidentiality of Alcohol and Drug Abuse Patient Records regulations: The Federal rules restrict any use of the information to criminally investigate or prosecute any alcohol or drug abuse patient.[facility] HospitalIn the event this information is protected by the Federal Confidentiality of Alcohol and Drug Abuse Patient Records regulations: The Federal rules restrict any use of the information to criminally investigate or prosecute any alcohol or drug abuse patient.[facility] HospitalIn the event this information is protected by the Federal Confidentiality of Alcohol and Drug Abuse Patient Records regulations: The Federal rules restrict any use of the information to criminally investigate or prosecute any alcohol or drug abuse patient.[facility] HospitalIn the event this information is protected by the Federal Confidentiality of Alcohol and Drug Abuse Patient Records regulations: The Federal rules restrict any use of the information to criminally investigate or prosecute any alcohol or drug abuse patient.[facility] HospitalIn the event this information is protected by the Federal Confidentiality of Alcohol and Drug Abuse Patient Records regulations: The Federal rules restrict any use of the information to criminally investigate or prosecute any alcohol or drug abuse patient.[facility] HospitalIn the event this information is protected by the Federal Confidentiality of Alcohol and Drug Abuse Patient Records regulations: The Federal rules restrict any use of the information to criminally investigate or prosecute any alcohol or drug abuse patient.[facility] HospitalIn the event this information is protected by the Federal Confidentiality of Alcohol and Drug Abuse Patient Records regulations: The Federal rules restrict any use of the information to criminally investigate or prosecute any alcohol or drug abuse patient.[facility] HospitalIn the event this information is protected by the Federal Confidentiality of Alcohol and Drug Abuse Patient Records regulations: The Federal rules restrict any use of the information to criminally investigate or prosecute any alcohol or drug abuse patient.[facility] HospitalIn the event this information is protected by the Federal Confidentiality of Alcohol and Drug Abuse Patient Records regulations: The Federal rules restrict any use of the information to criminally investigate or prosecute any alcohol or drug abuse patient.[facility] HospitalIn the event this information is protected by the Federal Confidentiality of Alcohol and Drug Abuse Patient Records regulations: The Federal rules restrict any use of the information to criminally investigate or prosecute any alcohol or drug abuse patient.[facility] HospitalIn the event this information is protected by the Federal Confidentiality of Alcohol and Drug Abuse Patient Records regulations: The Federal rules restrict any use of the information to criminally investigate or prosecute any alcohol or drug abuse patient.[facility] HospitalIn the event this information is protected by the Federal Confidentiality of Alcohol and Drug Abuse Patient Records regulations: The Federal rules restrict any use of the information to criminally investigate or prosecute any alcohol or drug abuse patient.[facility] HospitalIn the event this information is protected by the Federal Confidentiality of Alcohol and Drug Abuse Patient Records regulations: The Federal rules restrict any use of the information to criminally investigate or prosecute any alcohol or drug abuse patient.[facility] HospitalIn the event this information is protected by the Federal Confidentiality of Alcohol and Drug Abuse Patient Records regulations: The Federal rules restrict any use of the information to criminally investigate or prosecute any alcohol or drug abuse patient.[facility] HospitalIn the event this information is protected by the Federal Confidentiality of Alcohol and Drug Abuse Patient Records regulations: The Federal rules restrict any use of the information to criminally investigate or prosecute any alcohol or drug abuse patient.[facility] HospitalIn the event this information is protected by the Federal Confidentiality of Alcohol and Drug Abuse Patient Records regulations: The Federal rules restrict any use of the information to criminally investigate or prosecute any alcohol or drug abuse patient.[facility] HospitalIn the event this information is protected by the Federal Confidentiality of Alcohol and Drug Abuse Patient Records regulations: The Federal rules restrict any use of the information to criminally investigate or prosecute any alcohol or drug abuse patient.[facility] HospitalIn the event this information is protected by the Federal Confidentiality of Alcohol and Drug Abuse Patient Records regulations: The Federal rules restrict any use of the information to criminally investigate or prosecute any alcohol or drug abuse patient.[facility] HospitalIn the event this information is protected by the Federal Confidentiality of Alcohol and Drug Abuse Patient Records regulations: The Federal rules restrict any use of the information to criminally investigate or prosecute any alcohol or drug abuse patient.[facility] HospitalIn the event this information is protected by the Federal Confidentiality of Alcohol and Drug Abuse Patient Records regulations: The Federal rules restrict any use of the information to criminally investigate or prosecute any alcohol or drug abuse patient.[facility] HospitalIn the event this information is protected by the Federal Confidentiality of Alcohol and Drug Abuse Patient Records regulations: The Federal rules restrict any use of the information to criminally investigate or prosecute any alcohol or drug abuse patient.[facility] HospitalIn the event this information is protected by the Federal Confidentiality of Alcohol and Drug Abuse Patient Records regulations: The Federal rules restrict any use of the information to criminally investigate or prosecute any alcohol or drug abuse patient.[facility] HospitalIn the event this information is protected by the Federal Confidentiality of Alcohol and Drug Abuse Patient Records regulations: The Federal rules restrict any use of the information to criminally investigate or prosecute any alcohol or drug abuse patient.[facility] HospitalIn the event this information is protected by the Federal Confidentiality of Alcohol and Drug Abuse Patient Records regulations: The Federal rules restrict any use of the information to criminally investigate or prosecute any alcohol or drug abuse patient.[facility] HospitalIn the event this information is protected by the Federal Confidentiality of Alcohol and Drug Abuse Patient Records regulations: The Federal rules restrict any use of the information to criminally investigate or prosecute any alcohol or drug abuse patient.[facility] HospitalIn the event this information is protected by the Federal Confidentiality of Alcohol and Drug Abuse Patient Records regulations: The Federal rules restrict any use of the information to criminally investigate or prosecute any alcohol or drug abuse patient.[facility] HospitalIn the event this information is protected by the Federal Confidentiality of Alcohol and Drug Abuse Patient Records regulations: The Federal rules restrict any use of the information to criminally investigate or prosecute any alcohol or drug abuse patient.[facility] HospitalIn the event this information is protected by the Federal Confidentiality of Alcohol and Drug Abuse Patient Records regulations: The Federal rules restrict any use of the information to criminally investigate or prosecute any alcohol or drug abuse patient.[facility] HospitalIn the event this information is protected by the Federal Confidentiality of Alcohol and Drug Abuse Patient Records regulations: The Federal rules restrict any use of the information to criminally investigate or prosecute any alcohol or drug abuse patient.[facility] HospitalIn the event this information is protected by the Federal Confidentiality of Alcohol and Drug Abuse Patient Records regulations: The Federal rules restrict any use of the information to criminally investigate or prosecute any alcohol or drug abuse patient.[facility] HospitalIn the event this information is protected by the Federal Confidentiality of Alcohol and Drug Abuse Patient Records regulations: The Federal rules restrict any use of the information to criminally investigate or prosecute any alcohol or drug abuse patient.[facility] HospitalIn the event this information is protected by the Federal Confidentiality of Alcohol and Drug Abuse Patient Records regulations: The Federal rules restrict any use of the information to criminally investigate or prosecute any alcohol or drug abuse patient.[facility] HospitalIn the event this information is protected by the Federal Confidentiality of Alcohol and Drug Abuse Patient Records regulations: The Federal rules restrict any use of the information to criminally investigate or prosecute any alcohol or drug abuse patient.[facility] HospitalIn the event this information is protected by the Federal Confidentiality of Alcohol and Drug Abuse Patient Records regulations: The Federal rules restrict any use of the information to criminally investigate or prosecute any alcohol or drug abuse patient.[facility] HospitalIn the event this information is protected by the Federal Confidentiality of Alcohol and Drug Abuse Patient Records regulations: The Federal rules restrict any use of the information to criminally investigate or prosecute any alcohol or drug abuse patient.[facility] HospitalIn the event this information is protected by the Federal Confidentiality of Alcohol and Drug Abuse Patient Records regulations: The Federal rules restrict any use of the information to criminally investigate or prosecute any alcohol or drug abuse patient.[facility] HospitalIn the event this information is protected by the Federal Confidentiality of Alcohol and Drug Abuse Patient Records regulations: The Federal rules restrict any use of the information to criminally investigate or prosecute any alcohol or drug abuse patient.[facility] HospitalIn the event this information is protected by the Federal Confidentiality of Alcohol and Drug Abuse Patient Records regulations: The Federal rules restrict any use of the information to criminally investigate or prosecute any alcohol or drug abuse patient.[facility] HospitalIn the event this information is protected by the Federal Confidentiality of Alcohol and Drug Abuse Patient Records regulations: The Federal rules restrict any use of the information to criminally investigate or prosecute any alcohol or drug abuse patient.[facility] HospitalIn the event this information is protected by the Federal Confidentiality of Alcohol and Drug Abuse Patient Records regulations: The Federal rules restrict any use of the information to criminally investigate or prosecute any alcohol or drug abuse patient.[facility] HospitalIn the event this information is protected by the Federal Confidentiality of Alcohol and Drug Abuse Patient Records regulations: The Federal rules restrict any use of the information to criminally investigate or prosecute any alcohol or drug abuse patient.[facility] HospitalIn the event this information is protected by the Federal Confidentiality of Alcohol and Drug Abuse Patient Records regulations: The Federal rules restrict any use of the information to criminally investigate or prosecute any alcohol or drug abuse patient.[facility] HospitalIn the event this information is protected by the Federal Confidentiality of Alcohol and Drug Abuse Patient Records regulations: The Federal rules restrict any use of the information to criminally investigate or prosecute any alcohol or drug abuse patient.[facility] the event this information is protected by the Federal Confidentiality of Alcohol and Drug Abuse Patient Records regulations: The Federal rules restrict any use of the information to criminally investigate or prosecute any alcohol or drug abuse patient.[facility] HospitalIn the event this information is protected by the Federal Confidentiality of Alcohol and Drug Abuse Patient Records regulations: The Federal rules restrict any use of the information to criminally investigate or prosecute any alcohol or drug abuse patient.[facility] HospitalIn the event this information is protected by the Federal Confidentiality of Alcohol and Drug Abuse Patient Records regulations: The Federal rules restrict any use of the information to criminally investigate or prosecute any alcohol or drug abuse patient.[facility] HospitalIn the event this information is protected by the Federal Confidentiality of Alcohol and Drug Abuse Patient Records regulations: The Federal rules restrict any use of the information to criminally investigate or prosecute any alcohol or drug abuse patient.[facility] HospitalIn the event this information is protected by the Federal Confidentiality of Alcohol and Drug Abuse Patient Records regulations: The Federal rules restrict any use of the information to criminally investigate or prosecute any alcohol or drug abuse patient.[facility] HospitalIn the event this information is protected by the Federal Confidentiality of Alcohol and Drug Abuse Patient Records regulations: The Federal rules restrict any use of the information to criminally investigate or prosecute any alcohol or drug abuse patient.[facility] HospitalIn the event this information is protected by the Federal Confidentiality of Alcohol and Drug Abuse Patient Records regulations: The Federal rules restrict any use of the information to criminally investigate or prosecute any alcohol or drug abuse patient.[facility] HospitalIn the event this information is protected by the Federal Confidentiality of Alcohol and Drug Abuse Patient Records regulations: The Federal rules restrict any use of the information to criminally investigate or prosecute any alcohol or drug abuse patient.[facility] HospitalIn the event this information is protected by the Federal Confidentiality of Alcohol and Drug Abuse Patient Records regulations: The Federal rules restrict any use of the information to criminally investigate or prosecute any alcohol or drug abuse patient.[facility] HospitalIn the event this information is protected by the Federal Confidentiality of Alcohol and Drug Abuse Patient Records regulations: The Federal rules restrict any use of the information to criminally investigate or prosecute any alcohol or drug abuse patient.[facility] HospitalIn the event this information is protected by the Federal Confidentiality of Alcohol and Drug Abuse Patient Records regulations: The Federal rules restrict any use of the information to criminally investigate or prosecute any alcohol or drug abuse patient.[facility] HospitalIn the event this information is protected by the Federal Confidentiality of Alcohol and Drug Abuse Patient Records regulations: The Federal rules restrict any use of the information to criminally investigate or prosecute any alcohol or drug abuse patient.[facility] HospitalIn the event this information is protected by the Federal Confidentiality of Alcohol and Drug Abuse Patient Records regulations: The Federal rules restrict any use of the information to criminally investigate or prosecute any alcohol or drug abuse patient.[facility] Reason for Visit (unrecogniz ed section and content) Reason Comments ? ACID REFLUX burning sensation in throat after eating, throw up in my mouth, but all acid, mucus build up in my chest that will gag me when it comes up. Onset times 1 month. 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 Called to [facility]/S w/ R.[facility] for 2/. Reason Comments vaginal burning Reason Comments Results Reason Comments Earache Earache since . Started in left ear. Lots of sinus pressure on Tuesday. No fever. Gets hot flashes a lot x3-4 months. Reason Comments Sore Throat Cough, chest congest ion, runny nose x4 days Reason Comments Well Child 17yr WCC Reason Comments Orders Reason Comments Radiology US Specialty Diagnoses / Procedures Referred By Contac t Referred To Contact [facility] Diagnoses Pelvic pain in female Procedures US FEMALE PELVIS TRANSVAG US TRANSVAGINAL Delfina Watson APRN.CNM [address] [place] [place] [address] [place] [address] Referral ID Status Reason Start Date Expiration Date V isits Requested Visits Authorized [id number] Closed Auto-Generate d Referral 05/03/2023 06/01/2024 1 1 Reason Comments Vaginal Problem Discharge and itchin g Reason Comments Leg Pain Right left in archer a nd left hip pain ongoing for awhile. More frequently having the pain Reason Onset Date Comments Refill Request 06/28/2023 Reason Comments Vaginal Problem Reason Onset Date Comments Refill Request 07/28/2023 Reason Onset Date Comments Refill Request 07/28/2023 Reason Comments Vaginal Infection Reason Comments Sore Throat [place], fever x1 day Reason Comments problem visit Pain during intercou rse. Reason Comments Refill Request Reason Onset Date Comments Refill Request 10/28/2023 Reason Comments Well Child 18yr WCC Reason Comments Problem Visit Reason Comments Initial OB Visit Reason Comments PRAF Reason Comments Clinical Update Reason Comments Sore Throat ST x 2 weeks and nos e is very dry Reason Comments Cough X 1.5 wks referral to adult doctor Currently 11 wk s Reason Comments Medication Question Reason Onset Date Comments Care 03/28/2024 Reason Onset Date Comments Care 04/03/2024 Reason Comments US Specialty Diagnoses / Procedures Referred By Lance t Referred To Contact [facility] Diagnoses Encounter for care in first trimester of first 7 weeks gestation of Procedures NUCHAL TRANSLUCENCY WHI US NUCHAL TRANSLUCENCY 1ST GESTATION Nilda Stiles, TEXTILE ENGRAVER.BANDAGE WINDING MACHINE OPERATOR [address] [place] [address] [facility] [address] [place] [address] Referral ID Status Reason Start Date Expiration Date V isits Requested Visits Authorized [id number] Closed Auto-Generate d Referral 02/21/2024 02/20/2025 1 1 Reason Onset Date Comments Refill Request 04/10/2024 Reason Onset Date Comments Care 04/27/2024 Reason Comments Question (OB Question) Reason Onset Date Comments Care 05/25/2024 Specialty Diagnoses / Procedures Referred By Lance cantu Referred To Contact [facility] Diagnoses Supervision of normal first teen in first trimester 13 weeks gestation of Obesity in Procedures OBSTETRIC ULTRASOUND WHI US PREG UTERUS AFTER 1ST TRIMEST GESTATION Dlefina Watson APRN.[facility] [address] [place] [address] Phone: tel: fax: [facility] [address] [place] [address] Referral ID Status Reason Start Date Expiration Date V isits Requested Visits Authorized [id number] Closed Auto-Generate d Referral 04/03/2024 04/03/2025 1 1 Reason Onset Date Comments Care 06/06/2024 Reason Onset Date Comments Care 06/19/2024 Reason Onset Date Comments Care 06/21/2024 Reason Comments Decreased FM Reason Onset Date Comments Care 07/20/2024 Reason Comments breast pump Reason Comments Establish Care Reason Onset Date Comments Care 08/16/2024 Reason Onset Date Comments Care 08/30/2024 Reason Onset Date Comments Care 09/04/2024 Reason Comments Patient Update Reason Onset Date Comments Care 09/12/2024 Reason Onset Date Comments Care 09/18/2024 Reason Onset Date Comments Care 09/25/2024 Reason Onset Date Comments Care 10/05/2024 Care Teams (unrecognized sec tion and content) Customer Marketing Intern Relationship Specialty Start Date End Date Que Chavez MD [address] [place], [place] [id number] PCP - General Pediatrics 01/19/17 Customer Marketing Intern Relationship Specialty Start Date End Date Que Chavez MD [address] [place], [place] [id number] PCP - General Pediatrics 01/19/17 Customer Marketing Intern Relationship Specialty Start Date End Date Que Chavez MD [address] [place], [place] [id number] [phone] PCP - General Pediatrics 01/19/17 Customer Marketing Intern Relationship Specialty Start Date End Date Que Chavez MD [address] [facility] [place] [address] PCP - General Pediatrics 01/19/17 Customer Marketing Intern Relationship Specialty Start Date End Date Que Chavez MD [address] [facility] [place] [address] PCP - General Pediatrics 01/19/17 Customer Marketing Intern Relationship Specialty Start Date End Date Que Chavez MD [address] [facility] [place] [address] PCP - General Pediatrics 01/19/17 Customer Marketing Intern Relationship Specialty Start Date End Date Que Chavez MD [address] [facility] [place] [address] PCP - General Pediatrics 01/19/17 Customer Marketing Intern Relationship Specialty Start Date End Date Que Chavez MD [address] [facility] [place] [address] PCP - General Pediatrics 01/19/17 Customer Marketing Intern Relationship Specialty Start Date End Date Que Chavez MD [address] [facility] [place] [address] PCP - General Pediatrics 01/19/17 Customer Marketing Intern Relationship Specialty [place] [address] [place] [address], [place] [address] PCP - General Pediatrics 01/19/17 Customer Marketing Intern Relationship Specialty [place] [address] [place] [address], [place] [address] PCP - General Pediatrics 01/19/17 Customer Marketing Intern Relationship Specialty Start Date End Date Que Chavez MD [address] [facility] [place] [address] PCP - General Pediatrics 01/19/17 Customer Marketing Intern Relationship Specialty Start Date End Date Que Chavez MD [address] [place] [address] PCP - General Pediatrics 01/19/17 Customer Marketing Intern Relationship Specialty Start Date End Date Que Chavez MD [address] [place] [address] PCP - General Pediatrics 01/19/17 Customer Marketing Intern Relationship Specialty Start Date End Date Que Chavez MD [address] [place] [address] PCP - General Pediatrics 01/19/17 Customer Marketing Intern Relationship Specialty Start Date End Date Que Chavez MD [address] [place] [address] PCP - General Pediatrics 01/19/17 Customer Marketing Intern Relationship Specialty Start Date End Date Que Chavez MD [address] [place] [address] PCP - General Pediatrics 01/19/17 Customer Marketing Intern Relationship Specialty Start Date End Date Que Chavez MD [address] [place] [address] PCP - General Pediatrics 01/19/17 Customer Marketing Intern Relationship Specialty Start Date End Date Que Chavez MD [address] [place] [address] PCP - General Pediatrics 01/19/17 Customer Marketing Intern Relationship Specialty Start Date End Date Que Chavez MD [address] [place] [address] PCP - General Pediatrics 01/19/17 Customer Marketing Intern Relationship Specialty Start Date End Date Que Chavez MD [address] [place] [address] PCP - General Pediatrics 01/19/17 Customer Marketing Intern Relationship Specialty Start Date End Date Que Chavez MD [address] [place] [address] PCP - General Pediatrics 01/19/17 Customer Marketing Intern Relationship Specialty Start Date End Date Que Chavez MD [address] [place] [address] PCP - General Pediatrics 01/19/17 Customer Marketing Intern Relationship Specialty Start Date End Date Que Chavez MD [address] [place] [address] PCP - General Pediatrics 01/19/17 Customer Marketing Intern Relationship Specialty Start Date End Date Que Chavez MD [address] [place] [address] PCP - General Pediatrics 01/19/17 Customer Marketing Intern Relationship Specialty Start Date End Date Que Chavez MD [address] [place] [address] PCP - General Pediatrics 01/19/17 Customer Marketing Intern Relationship Specialty Start Date End Date Ruiz Vega DO [address] [facility] [place] [address] PCP - General Family Medicine 08/13/24 Customer Marketing Intern Relationship Specialty Start Date End Date Ruiz Vega DO [address] [place], [place] [address] PCP - General Family Medicine 08/13/24 AdrielMaria Alejandra, TEXTILE ENGRAVER.BANDAGE WINDING MACHINE OPERATOR [address] [place], [place] [id number] [facility] 08/16/24 Customer Marketing Intern Relationship Specialty Start Date End Date Ruiz Vega DO [address] [place], [place] [id number] PCP - General Family Medicine 08/13/24 Carrier ClinicMaria Alejandra, TEXTILE ENGRAVER.BANDAGE WINDING MACHINE OPERATOR [address] [place] [address] [facility] 08/16/24 Sheri Harrison, TEXTILE ENGRAVER.BANDAGE WINDING MACHINE OPERATOR [address] [place], [place] [address] [facility] 08/20/24 Team Status: Active Member Role/Relationship Status Dates Dr. Ruiz Vega DO Primary Care Provider Active Team Status: Inactive Member Role/Relationship Status Dates Dr. Ruiz Vega DO Primary Care Provider Active Start: September 04, 2024 End: September 04, 2024 Dr. Conrado Richardson MD Emergency Provider Active S tart: September 04, 2024 End: September 04, 2024 Customer Marketing Intern Relationship Specialty Start Date End Date Ruiz Vega DO [address] [place], [place] [address] PCP - General [facility] Medicine 08/13/24 AdrielMaria Alejandra, TEXTILE ENGRAVER.BANDAGE WINDING MACHINE OPERATOR [address] [place], [place] [id number] Creative Arts Music Therapist Family Medicine 08/16/24 Sheri Harrison, TEXTILE ENGRAVER.BANDAGE WINDING MACHINE OPERATOR [address] [place] [address] [facility] 08/20/24 Customer Marketing Intern Relationship Specialty Start Date End Date Ruiz Vega DO [address] [facility] [place] [address] PCP - General Family Medicine 08/13/24 Maria Alejandra Morel, TEXTILE ENGRAVER.BANDAGE WINDING MACHINE OPERATOR [address] [place] [address] Creative Arts Music Therapist Family Medicine 08/16/24 Sheri Harrison, TEXTILE ENGRAVER.BANDAGE WINDING MACHINE OPERATOR [address] [place] [address] [facility] Medicine 08/20/24 Customer Marketing Intern Relationship Specialty Start Date End Date Ruiz Vega DO [address] [place] [address] PCP - General Family Medicine 08/13/24 AdrielMaria Alejandra, TEXTILE ENGRAVER.BANDAGE WINDING MACHINE OPERATOR [address] [place] [address] [employer] Family Medicine 08/16/24 Sheri Harrison, TEXTILE ENGRAVER.BANDAGE WINDING MACHINE OPERATOR [address] [place] [address] [facility] Family Medicine 08/20/24 Customer Marketing Intern Relationship Specialty Start Date End Date Ruiz Vega DO [address] [facility] [place] [address] PCP - General Family Medicine 08/13/24 Maria Alejandra Morel, TEXTILE ENGRAVER.BANDAGE WINDING MACHINE OPERATOR [address] [facility] [place] [address] [employer] The[employer]ist Family Medicine 08/16/24 Sheri Harrison, TEXTILE ENGRAVER.BANDAGE WINDING MACHINE OPERATOR [address] [place] [address] [employer] Family Medicine 08/20/24 Customer Marketing Intern Relationship Specialty Start Date End Date Ruiz Vega DO [address] [place] [address] PCP - General Family Medicine 08/13/24 Maria Alejandra Morel, TEXTILE ENGRAVER.BANDAGE WINDING MACHINE OPERATOR [address] [place] [address] [employer] Family Medicine 08/16/24 Sheri Harrison, TEXTILE ENGRAVER.BANDAGE WINDING MACHINE OPERATOR [address] [place] [address] [employer] Family Medicine 08/20/24 Customer Marketing Intern Relationship Specialty Start Date End Date Ruiz Vega DO [address] [place] [address] PCP - General Family Medicine 08/13/24 Maria Alejandra Morel, TEXTILE ENGRAVER.BANDAGE WINDING MACHINE OPERATOR [address] [place] [address] [employer] Family Medicine 08/16/24 Sheri Harrison, TEXTILE ENGRAVER.BANDAGE WINDING MACHINE OPERATOR [address] [place] [address] [employer] Family Medicine 08/20/24 Customer Marketing Intern Relationship Specialty Start Date End Date Ruiz Vega DO [address] [place] [address] PCP - General Family Medicine 08/13/24 Maria Alejandra Morel, CATRINA.BANDAGE WINDING MACHINE OPERATOR [address] [place] [address] [facility]24 Sheri Harrison APRN.BANDAGE WINDING MACHINE OPERATOR [address] [place] [address] [facility] 08/20/24 Customer Marketing Intern Relationship Specialty Start Date End Date Ruiz Vega DO [address] [place] [address] PCP - General Family Medicine 08/13/24 Maria Alejandra Morel, TEXTILE ENGRAVER.BANDAGE WINDING MACHINE OPERATOR [address] [place] [address] [facility] 08/16/24 Sheri Harrison, TEXTILE ENGRAVER.BANDAGE WINDING MACHINE OPERATOR [address] [place] [address] [facility] 08/20/24 Goals (unrecognized section and content) Goals may be documented in a n alternate section INFORMATION SOURCE (unrecogn ized section and content) DATE CREATED AUTHOR 10/08/2024 [facility] DATE CREATED AUTHOR AUTHOR'S TYRONE ZHU 10/11/2024 [facility] FOR RECORDS PERTAINING TO PATIENTS WHO ARE OR HAVE BEEN ENROLLED IN A CHEMICAL DEPENDENCY/SUBSTANCEABUSE PROGRAM, SOME INFORMATION MAY BE OMITTED. This clinical summary was aggregated from multiple sources. Caution should be exercised in using it in the provision of clinical care. This summary normalizes information from multiple sources, and as a consequence, information in this document may materially change the coding, format and clinical context of patient data. In addition, data may be omitted in some cases. CLINICAL DECISIONS SHOULD BE BASED ON THE PRIMARY CLINICAL RECORDS. [facility] provides no warranty or guarantee of the accuracy or completeness of information in this document.
[2024-10-12 23:35] VITALS: BMI 38.6
[2024-10-12 23:43] VITALS: RESP 16; TEMP 36.5
[2024-10-12 23:44] VITALS: BP 122/82; PULSE 86; O2SAT 93
[2024-10-13 01:46] VITALS: PULSE 90; O2SAT 97
--- NOTE | 2024-10-22 21:05 | OB.TRI.NOTE ---
HPI - General General Date of Service: 10/12/24 HPI Narrative SHENG BROWNE, is a 19 F who presents at 40w3d for irregular contractions. No leakage of fluid or vaginal bleeding Maternal Data Information ANA Calculator Estimated Delivery Date Method Current WG Current Estimate 10/09/24 Manual 41w 6d PFSH [facility] Medical History (Updated 10/22/24 @ 21:07 by Delfina Watson CNM) Asthma Left ankle pain Home Medications ?Medication ?Instructions ?Recorded ?Last Taken ?Type albuterol sulfate 90 mcg/actuation 1 puff inhalation PRN breathing 10/04/23 09/24/24 History aerosol inhaler vits 75-iron 28 mg-folic 1 pkg PO DAILY 02/24/24 10/12/24 History acid 800 mcg-omega-3 oral combo pack (One A Day Women's DHA) famotidine 20 mg tablet (Acid-Pep) 20 mg PO QHS 10/12/24 10/12/24 22:00 History Allergy/AdvReac Type Severity Reaction Status Date / Time No Known Allergies Allergy Verified 10/12/24 23:36 Surgical History Hx of wisdom tooth extraction Hx of tonsillectomy Social History household members: spouse housing: house Smoking Status: Never smoker History Elective abortions Hx Para 0 Spontaneous abortions Hx # Term Pregnancies Ectopic pregnancies Hx # Pregnancies Multiple births # of living children NST FHR Rate Baby A Baseline: 135 Variability:: Moderate Accelerations:: 15 x 15 Decelerations:: None NST Reactive:: Yes Assessment & Plan (1) False labor: PLAN: Plan 1) False labor, d/c home 2) Labor instructions reveiwed
== END 2024-10-13 02:05 | disposition home or self-care (01) ==
LOC: WPOUT 23:24 → WP 23:25
PROVIDERS: PCP Student in an Organized Health Care Education/Training Program; Visit Provider Advanced Practice Midwife
DX: O47.1 False labor at or after 37 completed weeks of gestation (principal); Z3A.40 40 weeks gestation of pregnancy
CPT/HCPCS: 59025; 59050 ×2; G0378 ×2; 99221

== ENCOUNTER 2024-10-13 08:45 | Inpatient (IN) | payer MEDICAID, SELFPAY ==
[2024-10-13] VITALS (43 sets, daily range): BP systolic 97–146; BP diastolic 52–87; PULSE 87–126; RESP 16; TEMP 36.3–37.1; O2SAT 92–100; BMI 38.5
--- OUTSIDE RECORDS SUMMARY | 2024-10-13 08:11 | XMS RPT_ITS | CCD ---
Author Organization [facility] Care Team Providers Care Streetcar Dispatcher Name Role Phone Que Chavez MD Primary Care Provider Unavailable Primary Care Provider Unavailbelkis e Ruiz Vega DO Primary Care Provider [facility] CAMPUS RECRUITER.Maria Alejandra ALVES Unavailable [phone] [facility] CAMPUS RECRUITER.Sheri ALVES Unavailable Dr. Ruiz Vega DO Primary Care Provider Dylan MUIR, Dr. Camp Emergency Provider [phone] [place] Admitting Unavailable Vega, Ruiz Primary Care Unavailable [place] Referring [...] Referring Unavailable Scott, Que Primary Care Unavailable Sarah, Flo Attending Unavailable LINSEY, NILDA Referring Unavailable LINSEY, NILDA Referring Unavailable DELFINA WATSON Attending Unavailable QUE CHAVEZ P Primary Care Unavailable JOSIANE GOODWIN Attending Unavailable DUNCAN MUNGUIA Attending Unavailable VEGA, RUIZ L Primary Care Unavailable ALO THOMPSON Attending Unavailable VEGA, RUIZ L Primary Care Unavailable JANELLE MARIN Attending Unavailable LA DEL CASTILLO Attending Unavailable KIA LUCERO Attending Unavailable QUE CHAVEZ P Primary Care Unavailable DELFINA WATSON Referring Unavailable KIA LUCERO Attending Unavailable SCOTT, QUE P Primary Care Unavailable SOMMER HERNANDEZ Attending Unavailable DELFINA WATSON Attending Unavailable DELFINA WATSON Referring Unavailable SELF Referring Unavailable LINDSEY MORENO [...] SELF Referring Unavailable CASTILLO MCKEON Attending Unavailable BJORN MCKEONECCA Bernard Referring Unavailable SCOTT, QUE P Primary [...] Primary Care Unavailable LINSEY, NILDA Referring Unavailable PLOTLA RIZZO Attending Unavailable SCOTT, QUE P Primary Care Unavailable LINSEY, NILDA Referring Unavailable Dylan MUIR, Dr. Camp Attending Provider [phone] Delfina Watson CNM Attending Provider Allergies Allergy Classification Reported Allergen(s) Allergy Type Date of Onset Reaction(s) Facility (20 sources) Seasonal allergy; Translations: [SEASONAL ALLERGIES] Propensity to adverse reactions 8 Other: See Comments [facility] Medications Current Medications Medication Drug Class(es) Dates Sig (Normalized) Sig (Original) [id number] 200 actuat albuterol 0.09 mg/actuat metered dose [...] ate 90 mcg/actuation HFA aerosol inhaler Active 1 NMA INHALATION October 04, 2023 12:00am Start: 06-29-2023 [...] oral capsule (3 sources) Penicillin-class Antibacterial Start: End: take 2 capsules by mouth twice daily amoxicillin (AMOXIL) 500 mg capsule Indications: Acute non-recurrent frontal sinusitis Take 2 capsules by mouth two times a day for 7 days. 28 capsule 03/19/2024 03/26/2024 Active aspirin 81 mg chewable tablet (20 sources) Platelet Aggregation Inhibitor, Nonsteroidal Anti-inflammatory Drug Start: take 1 tablet by mouth once daily Aspirin (Aspirin Childrens) 81 mg tablet,chewable Active 1 {tbl} PO DAILY October 12, 2024 12:00am Start: 02-21-2024 take 1 tablet by joselyn th once daily aspirin, enteric coated (ECOTRIN LOW STRENGTH) 81 mg EC tablet Indications: Encounter for care in first trimester of first (HCC) , 7 weeks gestation of (HCC) Take 1 tablet by mouth once daily. 90 tablet 3 02/21/2024 Active diphenhydrAMINE (14 sources) Histamine-1 Receptor Antagonist diphenhydramine HCl (BENADRYL ALLERGY ORAL) Take by mouth as needed. Active doxycycline hyclate 100 mg oral capsule (1 source) Tetracycline-class Drug Start: End: take 1 capsule by mouth twice daily doxycycline hyclate (VIBRAMYCIN) 100 mg capsule Take 1 capsule (100 mg) by mouth two times a day for 7 days. 14 capsule 12/15/2023 12/22/2023 Active Ethinyl Estradiol / norgestimate (15 sources) Progestin, Estrogen Start: 023 End: take 1 tablet by mouth once daily [...] once daily. famotidine 20 mg oral tablet (17 sources) Histamine-2 Receptor Antagonist Start: 10-12-2024 take 1 tablet by mouth at bedtime Famotidine (Acid-Pep) 20 mg tablet Active 20 mg PO AT BEDTIME October 12, 2024 12:00am Start: 09-12-2024 take 1 tablet by joselyn th every twelve hours as needed famotidine (PEPCID) [...] dose nasal spray (20 sources) Corticosteroid Start: 5 take 2 spray(s) nasal route once daily fluticasone (FLONASE ALLERGY RELIEF) 50 mcg/actuation nasal spray Use 2 sprays in each nostril once daily. 18.2 mL 1 08/01/2024 Active Start: 07-13-2021 End: 02-21-2024 take 1 spray(s) nasal route once daily fluticasone (FLONASE) 50 mcg/actuation nasal spray Use 1 [place] in each nostril once daily. 1 Each 3 07/29/2023 02/21/2024 Discontinued Comment on above: Use 1 [place] in each nostril once daily. Inhalational Spacing [...] 120 mL 1 10/31/2023 02/21/2024 Discontinued (Other) loratadine 10 mg oral tablet (20 sources) [...] source) Quinolone Antimicrobial Start: 12-15-19 End: 12-22-19 take 1 tablet by mouth once daily [...] 5 days. 15 tablet 10/31/2023 11/05/2023 Active Jqqllr75-Rxbi Fum-Folic Ac-Om3 (One A Day Women's Dha) 28 mg iron- 800 mcg combo pack (2 sources) Start: 02-24-2024 Awyzed15-Ipml Fum-Folic Ac-Om3 (One A Day Women's Dha) 28 mg iron- 800 mcg combo pack Active 1 NMA PO February 24, 2024 1:00am Start: 02-24-2024 Faqcti61-Xztn Fum-Folic Ac-Om3 (One A Day Women's Dha) 28 mg iron- 800 mcg combo pack Active NMA PO February 24, 2024 1:00am Scsrruyg-Rv-Fzg-Fe-FA tab (20 sources) Start: 04-27-2024 take 1 tablet by mouth once daily Mgktlufp-Wl-Sft-Fe-FA tab Take 1 tablet by mouth once daily. With folic acid and DHA as covered by insurance. 90 tablet 3 04/27/2024 Active Start: 04-27-2024 End: 07-26-2024 take 1 tablet by mouth once daily Zkintfsg-Bo-Sqk-Fe-FA tab Take 1 tablet by mouth once daily. With folic acid and DHA as covered by insurance. 90 tablet 3 04/27/2024 07/26/2024 Active Completed/Discontinued Medications Medication Drug Class(es) Dates Sig (Normalized) Sig (Original) acetaminophen 325 mg / HYDROcodone bitartrate 5 mg oral tablet (2 sources) Opioid Agonist Start: 10-04-2023 End: 11-15-2023 Hydrocodone-Acetam [...] 08/25/2023 10/31/2023 Discontinued 168 hr ethinyl estradiol 0.71448 mg/hr / norelgestromin 0.10080 mg/hr transdermal system (2 sources) Progestin, Estrogen [...] on above: Take 1 tablet by joselyn one time only for 1 dose. Take [...] Comment on above: Take 2 tablets by mo ut twice daily. L. acidophilus-L. rhamnosus 15 billion cell cap (20 sources) Start: 03-17-2022 End: 07-28-2023 take 1 capsule by mouth once daily L. acidophilus-L. rhamnosus 15 billion cell cap Indications: BV (bacterial vaginosis) Take 1 capsule by mouth once daily. FLORAJEN WOMEN. If on antibiotic, take at least 1-2 hours before or after antibiotic. KEEP REFRIGERATED 30 capsule 11 03/17/2022 07/28/2023 Discontinued Start: 03-17-2022 take 1 capsule by mo uth once daily L. acidophilus-L. rhamnosus 15 billion cell cap Indications: BV (bacterial vaginosis) Take 1 capsule by mouth once daily. FLORAJEN WOMEN. If on antibiotic, take at least 1-2 hours before or after antibiotic. KEEP REFRIGERATED 30 capsule 11 03/17/2022 Active Comment on above: Take 1 capsule by mo uth once daily. FLORAJEN WOMEN. If on antibiotic, take at least 1-2 hours before or after antibiotic. KEEP REFRIGERATED L.acid,rhamn-roe te-lactoferr (CLAIRVEE) 5 billion cell- 400 mcg DFE cpDR (4 sources) End: take 1 capsule by mouth once daily L.acid,lzhzg-mboqpq-m actoferr (CLAIRVEE) 5 billion cell- 400 mcg DFE cpDR Take 1 capsule by mouth once daily. For 15 days out of the month. 10/31/2023 Discontinued take 1 capsule by mo uth once daily L.acid,cipux-tjjfem-qkdwwjaid (CLAIRVEE) 5 billion cell- 400 mcg DFE cpDR Take 1 capsule by mouth once daily. For 15 days out of the month. Active take 1 capsule by mo uth once daily L.acid,ihsjr-qpwqwb-blxsomqom (CLAIRVEE) 5 billion cell- 400 mcg DFE [...] Start: 07-29-2023 take 1 capsule by mo ut once daily L.acidophilus-L.rhamnosus (FLORAJEN WOME N) 15 billion cell capsule Indications: BV (bacterial vaginosis) Take 1 capsule by mouth once daily. FLORAJEN WOMEN. If on antibiotic, take at least 1-2 hours before or after antibiotic. KEEP REFRIGERATED 30 capsule 11 07/29/2023 Active Lacto No.56-Hikkkt-Evq-Larch 25B cell-25B cell-50 mg capsule (2 sources) Start: 10-04-2023 End: 10-12-2024 Lacto No.97-Ihlcaa-Qcx-Larch 25B cell-25B cell-50 mg capsule Discontinued NMA PO October 04, 2023 12:00am October 12, 2024 11:37pm Start: 10-04-2023 Lacto No.76-Bi knwr-Jez-Dwgrr 25B cell-25B cell-50 mg capsule Active NMA PO October 04, 2023 12:00am MEDICATION, NON-DATABASE (2 sources) MEDICATION, NON-DATABASE allergy [...] Comment on above: Take 1 tablet by [facility] twice daily for 7 days. naproxen 500 mg oral tablet (2 sources) Nonsteroidal Anti-inflammatory Drug Start: 2 End: 4 [...] on above: Take 1 capsule by mo ut once daily. vit no.124/iron/folic ( VITAMIN ORAL) (15 sources) End: take 1 tablet by mouth once daily [...] Episodic Immunizations and screening for infectious disease (11 sources) Patient encounter status; Translations: [Encounter for immunization] Episodic Inflammatory diseases of female pelvic organs (2 sources) Bacterial vaginosis; Translations: [Acute vaginitis] Onset: 5 07-28-2023 Episodic Menstrual disorders (1 source) Missed period; Translations: [Irregular menstruation, unspecified] Chronic Nonspecific chest pain (2 sources) Chest pain; Translations: [Chest pain, unspecified] 09-04-2024 Episodic Other circulatory disease (1 source) Respiratory symptom; Translations: [Other specified symptoms and signs involving the circulatory and respiratory systems] Episodic Other complications of (20 sources) Obesity; Translations: [Obesity complicating , unspecified trimester] Onset: 5 04-03-2024 Chronic Other complications of (3 sources) Obesity complicating , unspecified trimester; Translations: [Obesity in (HCC)] Onset: 5 Chronic Other complications of (1 source) Obesity complicating , third trimester; Translations: [Obesity affecting in third trimester, unspecified obesity type (HCC)] Onset: 5 Chronic Other complications of (1 [...] [Supervision of high risk in third trimester (HCC)] Onset: 5 Episodic Other complications of (2 sources) Other specified related conditions, third trimester; Translations: [Heartburn during in third trimester (HCC)] Onset: 5 Episodic Other connective tissue disease [...] Translations: [Vaginal discharge during in third trimester ([facility])] Onset: 5 Episodic Other gastrointestinal disorders (1 source) Heartburn; Translations: [Heartburn during in third trimester ([facility])] Onset: Episodic Other inflammatory condition of skin (1 source) Seborrheic dermatitis; Translations: [Seborrheic dermatitis, unspecified] 11-04-2023 Episodic Other lower respiratory disease (1 source) Cough; Translations: [Acute cough] Episodic Other lower respiratory disease (6 sources) Wheezing; Translations: [Wheezing] Episodic Other non-traumatic joint disorders (2 sources) Ankle pain; Translations: [Pain in left ankle [...] , antepartum (HCC)] Onset: 5 Chronic Other and delivery including normal (20 sources) test positive; Translations: [Encounter for test, result positive] Onset: 4 01-30-2024 Episodic Other screening for suspected conditions (not mental [...] [Allergic rhinitis, unspecified seasonality, unspecified trigger] Onset: 2 Chronic Other upper respiratory infections (11 sources) Sore throat symptom; Translations: [Acute pharyngitis, [...] Translations: [39 weeks gestation of (HCC)] Onset: 5 Episodic Residual codes; unclassified (1 source) 38 weeks gestation of ; Translations: [38 weeks gestation of (HCC)] Onset: 5 Episodic Residual codes; unclassified (1 source) 37 weeks gestation of ; Translations: [37 weeks gestation of (HCC)] Onset: 5 Episodic Residual codes; unclassified (1 source) 36 weeks gestation of ; Translations: [36 weeks gestation of (HCC)] Onset: 5 Episodic Residual codes; unclassified (1 source) 35 weeks gestation of ; Translations: [35 weeks gestation of (HCC)] Onset: 5 Episodic Residual codes; unclassified (1 source) 34 weeks gestation of ; Translations: [34 weeks gestation of (HCC)] Onset: 5 Episodic Residual codes; unclassified (1 source) 32 weeks gestation of ; Translations: [32 weeks gestation of (HCC)] Onset: 5 Episodic Residual codes; unclassified (1 source) 31 [...] in second trimester, single or unspecified fetus (HCC)] Onset: 06-21-2024 Episodic Other non-traumatic joint disorders (1 source) Pain in left ankle and joints of left foot; Translations: [Pain in left ankle and joints of left foot] Onset: 11-15-2023 Episodic Residual codes; unclassified (1 source) 13 [...] 5 Glucose Ql (U) Negative Neg mg/dL [facility] Interpretation and review of laboratory results Normal [facility] Protein.monoclonal (U) [Mass/Vol] Negative Neg mg/dL [facility] URINE OB DIP B/Oon 5 Glucose Ql (U) Negative Neg mg/dL [facility] Protein.monoclonal (U) [Mass/Vol] Negative Neg mg/dL [facility] URINE OB DIP B/Oon 5 Glucose Ql (U) Negative Neg mg/dL [facility] Interpretation and review of laboratory results Normal [facility] Protein.monoclonal (U) [Mass/Vol] Negative Neg mg/dL [facility] ROUTINE, GROUP B ST REPTOCOCCUS BY PCRon 09-12-2024 ROUTINE, GROUP B STREPTOCOCCUS BY PCR Detected Abnormal [facility] Comment on above: Performed By: #### G BPCR ####[facility] [id number] [place] [address] [place] [facility] URINE OB DIP B/Oon 5 Glucose Ql (U) Negative Neg mg/dL [facility] Protein.monoclonal (U) [Mass/Vol] trace Neg mg/dL [facility] 12 Lead EKGon 09-04-2024 12 Lead EKG [facility] Cardiovascular Services [address] [place] [address] 12 Lead EKG 09/04/24 1024 MR#: [id number] Acct: [id number] Name: AMIRAH WOODARD Rep #: [id number] : 2005 19 From: Flo Smith MD [...] T wave abnormality Abnormal ECG Confirmed by FLO SMITH MD ([id number]), online content editor KAREN WATERS ([id number]) on 09/05/2024 1:39:37 PM Referred By: Confirmed By: FLO SMITH MD 09/05/24 1339 Date Flo Smith MD CC: Dr. Conrado Richardson MD; Dr. Ruiz Vega DO Signed Normal [facility] Absolute lymphocyte countOrd ered By: Conrado Richardson on 09-04-2024 Lymphocytes Auto (Unsp spec) [#/Vol] 1.97 10*3/uL 0.83-4.51 [facility] Absolute neutrophil countOrd ered By: Conrado Richardson on 09-04-2024 Neutrophils (Bld) [#/Vol] 8.4 10*3/uL High 2.0-7.7 [facility] Anion gap in Serum or Plasma Ordered By: Conrado Richardson on 09-04-2024 Anion gap [Moles/Vol] 11 mmol/L 5-[address] [facility] Automated lymphocyte count a s percentage of total leukocytesOrdered By: Conrado Richardson on 09-04-2024 Lymphocytes/100 WBC Auto (Unsp spec) 16.7 % Low 19-41 [facility] BUN/creatinine ratioOrdered By: Conrado Richardson on 09-04-2024 Urea nitrogen/Creatinine [Mass ratio] 15.7 mg/mg 10- [facility] Basic Metabolic Profile (BMP )on 09-04-2024 BUN/CRE 15.7 RATIO Normal - [facility] Comment on above: Performed By: #### L 100.0100, L500.2500, L501.4021 #### [facility] [address] [place], [address] Calcium [Mass/Vol] 8.7 mg/dL Normal 7.6-11.0 [facility] Comment on above: Performed By: #### L 100.0100, L500.2500, L501.4021 #### [facility] [address] [place], [address] Chloride [Moles/Vol] 105 mmol/L Normal 98-108 [facility] Comment on above: Performed By: #### L 100.0100, L500.2500, L501.4021 #### [facility] [address] [place], [address] CO2 [Moles/Vol] 20.3 mmol/L Low 21.0-32.0 [facility] Comment on above: Performed By: #### L 100.0100, L500.2500, L501.4021 #### [facility] [address] [place], [address] Creatinine [Mass/Vol] 0.45 mg/dL Low 0.70-1.[address] [facility] Comment on above: Performed By: #### L 100.0100, L500.2500, L501.4021 #### [facility] [address] [place], [address] ECRCL 226.86 ml/min Normal 50-250 [facility] Comment on above: Performed By: #### L 100.0100, L500.2500, L501.4021 #### [facility] [address] [place], [address] GAP 11 Normal 5-15 [facility] Comment on above: Performed By: #### L 100.0100, L500.2500, L501.4021 #### [facility] [address] [place], [address] GFR/1.73 sq M.predicted among non-blacks MDRD (S/P/Bld) [Vol rate/Area] 141 mL/min/{1.73_m2} Normal >60 [facility] Comment on above: Result Comment: mL/m in/1.73m2 CKD-EPI Creatinine Equation (2020) Performed By: #### L 100.0100, L500.2500, L501.4021 #### [facility] [address] [place], [address] Glucose [Mass/Vol] 91 mg/dL Normal 70-99 [facility] Comment on above: Performed By: #### L 100.0100, L500.2500, L501.4021 #### [facility] [address] [place], [address] Potassium [Moles/Vol] 3.8 mmol/L Normal 3.3-5.[address] [facility] Comment on above: Performed By: #### L 100.0100, L500.2500, L501.4021 #### [facility] [address] [place], [address] Sodium [Moles/Vol] 137 mmol/L Normal 133-145 [facility] Comment on above: Performed By: #### L 100.0100, L500.2500, L501.4021 #### [facility] [address] [place], [address] Urea nitrogen [Mass/Vol] 7 mg/dL Normal 4-19 [facility] Comment on above: Performed By: #### L 100.0100, L500.2500, L501.4021 #### [facility] [address] [place], [address] Basophil percentageOrdered B y: Conrado Richardson on 09-04-2024 Basophils/100 WBC (Bld) 0.5 % 0-1 [facility] CBC W/Diff, Automatedon Absolute Lymph 1.97 X10 3/uL Normal 0.83-4.51 [facility] Comment on above: Performed By: #### L 100.0100, L500.2500, L501.4021 #### [facility] [address] [place], [address] Absolute Neut 8.4 X10 3/uL High 2.0-7.7 [facility] Comment on above: Performed By: #### L 100.0100, L500.2500, L501.4021 #### [facility] [address] [place], [address] Basophils/100 WBC (Bld) 0.5 % Normal 0-1 [facility] Comment on above: Performed By: #### L 100.0100, L500.2500, L501.4021 #### [facility] [address] [place], [address] Eosinophils/100 WBC (Bld) 2.2 % Normal 0-5 [facility] Comment on above: Performed By: #### L 100.0100, L500.2500, L501.4021 #### [facility] [address] [place], [address] Erythrocyte distribution width (RBC) [Ratio] 13.2 % Normal 11.6-14.6 [facility] Comment on above: Performed By: #### L 100.0100, L500.2500, L501.4021 #### [facility] [address] [place], [address] Hematocrit (Bld) [Volume fraction] 35.4 % Low 37-47 [facility] Comment on above: Performed By: #### L 100.0100, L500.2500, L501.4021 #### [facility] [address] [place], [address] Hemoglobin (Bld) [Mass/Vol] 11.6 g/dL Low 12.0-15.0 [facility] Comment on above: Performed By: #### L 100.0100, L500.2500, L501.4021 #### [facility] [address] [place], [address] IG% 1.200 High 0.0-0.9 [facility] Comment on above: Result Comment: IG% - Immature Granulocytes (promyelocytes, myelocytes and metamyelocytes) > 1% indicates that a LEFT SHIFT is Present. Performed By: #### L 100.0100, L500.2500, L501.4021 #### [facility] [address] [place], [address] Lymphocytes/100 WBC (Bld) 16.7 % Low 19-41 [facility] Comment on above: Performed By: #### L 100.0100, L500.2500, L501.4021 #### [facility] [address] [place], [address] MCH (RBC) [Entitic mass] 27.5 pg Normal 27.0-32.0 [facility] Comment on above: Performed By: #### L 100.0100, L500.2500, L501.4021 #### [facility] [address] [place], [address] MCHC (RBC) [Mass/Vol] 32.8 g/dL Normal 32-[address] [facility] Comment on above: Performed By: #### L 100.0100, L500.2500, L501.4021 #### [facility] [address] [place], [address] MCV (RBC) [Entitic vol] 83.9 fL Normal 81-99 [facility] Comment on above: Performed By: #### L 100.0100, L500.2500, L501.4021 #### [facility] [address] [place], [address] Monocytes/100 WBC (Bld) 8.8 % Normal 0-10 [facility] Comment on above: Performed By: #### L 100.0100, L500.2500, L501.4021 #### [facility] [address] [place], [address] Neutrophils/100 WBC (Bld) 70.6 % High 47-70 [facility] Comment on above: Performed By: #### L 100.0100, L500.2500, L501.4021 #### [facility] [address] [place], [address] Nucleated RBC (Bld) [#/Vol] 0 10*3/uL Normal 0-5 [facility] Comment on above: Performed By: #### L 100.0100, L500.2500, L501.4021 #### [facility] [address] [place], [address] Platelet mean volume (Bld) [Entitic vol] 9.4 fL Normal 6.2-12.0 [facility] Comment on above: Performed By: #### L 100.0100, L500.2500, L501.4021 #### [facility] [address] [place], [address] Platelets (Bld) [#/Vol] 256 10*3/uL Normal 150-450 [facility] Comment on above: Performed By: #### L 100.0100, L500.2500, L501.4021 #### [facility] [address] [place], [address] RBC (Bld) [#/Vol] 4.22 10*6/uL Normal 4.2-5.4 [facility] Comment on above: Performed By: #### L 100.0100, L500.2500, L501.4021 #### [facility] [address] [place], [address] RDW SD 40.2 fl Normal 35.1-43.9 [facility] Comment on above: Performed By: #### L 100.0100, L500.2500, L501.4021 #### [facility] [address] [place], [address] WBC (Bld) [#/Vol] 11.8 10*3/uL High 4.4-11.0 [facility] Comment on above: Performed By: #### L 100.0100, L500.2500, L501.4021 #### [facility] [address] [place], [address] Rodrick 09-04-2024 JOSELYNN Telephone (OBGYWM) AMIRAH WOODARD ([id number]) 3 F Date Time Provider Department 09/04/24 DELFINA WATSON During your visit today, we recorded the following information about you: Delfina Watson APRN.CNM 09/04/2024 12:25 PM Signed Spoke with in ED. All work up normal. Patient D/Cd home. BETSEY Young Karmon, MD 09/04/2024 2:01 PM Signed Noted. Thanks! [...] sprays in each nostril once daily. - Ljvviogz-Ek-Udy-Fe-FA tab Take 1 tablet by mouth once [...] , third trimester*08/13/2024 Encounter Status:Closed by KIA BRASHER on 09/04/24 Normal [facility] CTA Chest W/WO Contraston CTA Chest W/WO Contrast [facility] Imaging Services [address] [place] [address] CTA Chest W/WO Contrast MR#: [id number] Acct: [id number] Name: AMIRAH WOODARD Rep #: [id number] : 2005 F 19 From: Gurjit Moreno MD PCP: Dr. Ruiz Vega, DO Status: REG ER Study: CTA Chest W/WO Contrast Date of Exam: 09/04/24 Exam# [id number] Ordering Dr: Conrado Richardson MD PROCEDURE: CTA [...] dissection No acute pulmonary process Reading Location: [id number] CC: Dr. Conrado Richardson MD; Dr. Ruiz Vega DO [employer] Former: Signed Normal [facility] Carbon dioxide, total [Moles /volume] in Central venous bloodOrdered By: Conrado Richardson on 09-04-2024 CO2 [Moles/Vol] 20.3 mmol/L Low 21.0-32.0 [facility] Chloride assayOrdered By: Wilson Richardson on 09-04-2024 Chloride [Moles/Vol] 105 mmol/L 98-108 [facility] Emergency Department Summary on 09-04-2024 Emergency Department Summary [facility] Medical Records Department [address] [place] [address] Emergency Department Summary 09/04/24 MR#: [id number] Acct: [id number] Name: AMIRAH WOODARD Rep #: [id number] : 2005 19 From: Conrado Richardson MD [...] discomfort that was diffuse. Lightheadedness. 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 Adrienne Marin. Who [...] Factors: Negative for Marfan's Syndrome or Hypertension [facility] Medical History Left ankle pain Home Medications ???Medication ???Instructions ???Recorded ???Last Taken ???Type Lactobacillus 25 billion cap PO 10/04/23 Unknown History cell-Bifido 25 billion hexm-AIE-yyprv capsule albuterol sulfate 90 mcg/actuation inhalation 10/04/23 [...] the ankles bilaterally. Dorsi plantarflexion intact. 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 Normal radial pulses. Back nontender. Neurologically [...] for ob (more content not included)... Normal [facility] Eosinophil percentageOrdered By: Conrado Richardson on 09-04-2024 Eosinophils/100 WBC (Bld) 2.2 % 0-5 [facility] Erythrocyte distribution wid th ratioOrdered By: Conrado Richardson on 09-04-2024 Erythrocyte distribution width (RBC) [Ratio] 13.2 % 11.6-14.6 [facility] Erythrocyte distribution wid th standard deviationOrdered By: Conrado Richardson on 09-04-2024 Erythrocyte distribution width (RBC) [Ratio] 40.2 fl 35.1-43.9 [facility] Glomerular filtration rate ( GFR) estimation/1.73 sq m using serum, plasma, or whole bOrdered By: Conrado Richardson on 09-04-2024 GFR/1.73 sq M.predicted among non-blacks MDRD (S/P/Bld) [Vol rate/Area] 141 mL/min/{1.73_m2} >60 [facility] Comment on above: mL/min/1.73m2 CKD-EP I Creatinine Equation (2020) Hematocrit Auto (Bld) [Volum e fraction]Ordered By: Conrado Richardson on 09-04-2024 Hematocrit (Bld) [Volume fraction] 35.4 % Low 37-47 [facility] Hemoglobin measurementOrdere d By: Conrado Richardson on 09-04-2024 Hemoglobin (Bld) [Mass/Vol] 11.6 g/dL Low 12.0-15.0 [facility] Immature granulocytes/100 WB C Auto (Bld)Ordered By: Conrado Richardson on 09-04-2024 Immature granulocytes/100 WBC (Bld) 1.200 % High 0.0-0.9 [facility] Comment on above: IG% - Immature Granu locytes (promyelocytes, myelocytes and metamyelocytes) > 1% indicates that a LEFT SHIFT is Present. L501.4021on 09-04-2024 Trop T High Sen 7 ng/L Normal <=14 [facility] Comment on above: Performed By: #### L 100.0100, L500.2500, L501.4021 #### [facility] [address] [place], [place], [id number] MCV (mean corpuscular volume ) determinationOrdered By: Conrado Richardson on 09-04-2024 MCV (RBC) [Entitic vol] 83.9 fL 81-99 [facility] Mean corpuscular hemoglobin (MCH) determinationOrdered By: Conrado Richardson on 09-04-2024 MCH (RBC) [Entitic mass] 27.5 pg 27.0-32.0 [facility] Mean corpuscular hemoglobin concentration (MCHC) determinationOrdered By: Conrado Richardson on 09-04-2024 MCHC (RBC) [Mass/Vol] 32.8 g/dL 32-[address] [facility] Mean platelet volume determi nationOrdered By: Conrado Richardson on 09-04-2024 Platelet mean volume (Bld) [Entitic vol] 9.4 fL 6.2-12.0 [facility] Monocyte percentageOrdered B y: Conrado Richardson on 09-04-2024 Monocytes/100 WBC (Bld) 8.8 % 0-10 [facility] Neutrophil percentageOrdered By: Conrado Richardson on 09-04-2024 Neutrophils/100 WBC (Bld) 70.6 % High 47-70 [facility] Nucleated red blood cell per centageOrdered By: Conrado Richardson on 09-04-2024 Nucleated RBC/100 WBC (Bld) [Ratio] 0 % 0-5 [facility] Platelet countOrdered By: Wilson Richardson on 09-04-2024 Platelets (Bld) [#/Vol] 256 10*3/uL 150-450 [facility] Potassium measurement (mass/ volume)Ordered By: Conrado Richardson on 09-04-2024 Potassium (Unsp spec) [Mass/Vol] 3.8 mmol/L 3.3-5.1 [facility] RBC Auto (Bld) [#/Vol]Ordere d By: Conrado Richardson on 09-04-2024 RBC (Bld) [#/Vol] 4.22 10*6/uL 4.2-5.4 [facility] Serum creatinine measurement (mass/volume)Ordered By: Conrado Richardson on 09-04-2024 Creatinine [Mass/Vol] 0.45 mg/dL Low 0.70-1.[address] [facility] Serum glucose measurement (m ass/volume)Ordered By: Conrado Richardson on 09-04-2024 Glucose [Mass/Vol] 91 mg/dL 70-99 [facility] Serum or plasma calcium tra urement (mass/volume)Ordered By: Conrado Richardson on 09-04-2024 Calcium [Mass/Vol] 8.7 mg/dL 7.6-11.0 [facility] Serum or plasma urea nitroge n measurement (mass/volume)Ordered By: Conrado Richardson on 09-04-2024 Urea nitrogen [Mass/Vol] 7 mg/dL 4-19 [facility] Sodium levelOrdered By: Conrado Richardson on 09-04-2024 Sodium [Moles/Vol] 137 mmol/L 133-145 [facility] Troponin T.cardiac [Mass/vol ume] in Serum or Plasma by High sensitivity methodOrdered By: Conrado Richardson on 09-04-2024 Troponin T.cardiac High sensitivity method [Mass/Vol] 7 ng/L <14 [facility] URINE OB DIP B/Oon 5 Glucose Ql (U) Negative Neg mg/dL [facility] Protein.monoclonal (U) [Mass/Vol] trace Neg mg/dL [facility] White blood cell (WBC) count Ordered By: Conrado Richardson on 09-04-2024 WBC (Bld) [#/Vol] 11.8 10*3/uL High 4.4-11.0 [facility] URINE OB DIP B/Oon 5 Glucose Ql (U) Negative Neg mg/dL [facility] Interpretation and review of laboratory results Normal [facility] Protein.monoclonal (U) [Mass/Vol] Negative Neg mg/dL [facility] CNOVon 08-13-2024 CNOV Office Visit (FAMPWS ) SHAHZAD WOODARDJOSHAileen Clifford ([id number]) 3 F Date Time Provider Department 08/13/24 9:20 AM [facility] During your visit today, we recorded the following information about you: Temperature Pulse Respiration Blood pressure 96.4 degrees 88/minute 16/minute 90/60 Weight Height 95.7 kg 1.65 m Ruiz Vega, 08/13/2024 10:11 AM Signed Subjective Amirah Clifford Vance is a 19-year-old female, 1 para 0, presenting for an initial visit and evaluation of -related symptoms. : - Currently 31-32 weeks gestation with a male fetus; ANA: October 09. - First . - care managed by Dr. Mckeon and team; next appointment scheduled with Rhonda. - Planning a vaginal delivery at [place]. - Taking vitamins; denies nausea or emesis. 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 Recording using Quisk software for draft documentation of the visit was discussed with the patient/authorized office services representative; all questions welcomed and answered. Patient/authorized office services representative agreed to proceed Allergies As of [...] (CLARITIN ORA (more content not included)... Normal [facility] CNPNon 08-06-2024 CNPN Telephone (OBGYWM) AMIRAH WOODARD ([id number]) 3 F Date Time Provider Department 08/06/24 [place] OBGYWM During your visit today, we recorded the following information about you: Caroline Mora RN 08/06/2024 12:39 PM Signed Breast pump request received from [employer] ([employer] Order to provider to sign. JIA Shane [...] sprays in each nostril once daily. 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 - Klacxrjw-An-Mbq-Fe-FA tab Take 1 tablet by mouth once [...] Status:Closed by TIO HUTCHISON on 08/03/24 Normal [facility] BILE ACIDS, TOTALon 08-02-19 25 Bile acid [Moles/Vol] 5.3 umol/L Normal <13.6 [facility] Comment on above: Order Comment: Speci men Type: SWAB Ordering Facility: [facility] Address: [address] [place] [address] Result Comment: Refe rence interval applies to [...] < 10.4 umol/L Performed By: #### C VTV, BVAMP #### [facility] CLIA [id number] [address] [place], [place] [address] [place] CBC W Auto Differential pane l (Bld)on 08-01-2024 Basophils (Bld) [#/Vol] 0.09 10*3/uL [facility] Basophils/100 WBC (Bld) 0.6 % [facility] Differential cell count method Nom (Bld) Auto [facility] Eosinophils (Bld) [#/Vol] 0.82 10*3/uL High [facility] Eosinophils/100 WBC (Bld) 5.8 % [facility] Erythrocyte distribution width (RBC) [Ratio] 12.6 % 11.5 - 15.0 % [facility] Hematocrit (Bld) [Volume fraction] 36.5 % 36.0 - 46.0 % [facility] Hemoglobin (Bld) [Mass/Vol] 12 g/dL 11.5 - 15.5 g/dL [facility] Immature granulocytes (Bld) [#/Vol] 0.25 10*3/uL High [facility] Immature granulocytes/100 WBC (Bld) 1.8 % [facility] Interpretation and review of laboratory results Abnormal [facility] Lymphocytes (Bld) [#/Vol] 2.2 10*3/uL [facility] Lymphocytes/100 WBC (Bld) 15.6 % [facility] MCH (RBC) [Entitic mass] 28 pg 26.0 - 34.0 pg [facility] MCHC (RBC) [Mass/Vol] 32.9 g/dL 30.5 - 36.0 g/dL [facility] MCV (RBC) [Entitic vol] 85.3 fL 80.0 - 100.0 fL [facility] Monocytes (Bld) [#/Vol] 0.92 10*3/uL High [facility] Monocytes/100 WBC (Bld) 6.5 % [facility] Neutrophils (Bld) [#/Vol] 9.86 10*3/uL High [facility] Neutrophils/100 WBC (Bld) 69.7 % [facility] Nucleated RBC (Bld) [#/Vol] [facility] Nucleated RBC/100 WBC (Bld) [Ratio] 0 % /100 WBC [facility] Platelet mean volume (Bld) [Entitic vol] 9.1 fL 9.0 - 12.7 fL [facility] Platelets (Bld) [#/Vol] 282 10*3/uL [facility] RBC (Bld) [#/Vol] 4.28 10*6/uL 3.90 - 5.2 0 m/uL [facility] WBC (Bld) [#/Vol] 14.14 10*3/uL High [facility] Basophils (Bld) [#/Vol] 0.09 10*3/uL Normal <0.11 [facility] Comment on above: Order Comment: Speci men Type: BLOOD SPECIMENOrdering Facility: [facility] Address: [address] [place], [place] [address] Performed By: #### 5 7021-8 ####[facility] [id number] [place] [address] [place] Basophils/100 WBC (Bld) 0.6 % Normal [facility] Comment on above: Order Comment: Speci men Type: BLOOD SPECIMENOrdering Facility: [facility] Address: [address] [place] [address] Performed By: #### 5 7021-8 ####[facility] [id number] [place] [address] [place] Differential cell count method Nom (Bld) Auto Normal [facility] Comment on above: Order Comment: Speci men Type: BLOOD SPECIMENOrdering Facility: [facility] Address: [address] [place] [address] Performed By: #### 5 7021-8 ####[facility] [id number] [place] [address] [place] Eosinophils (Bld) [#/Vol] 0.82 10*3/uL High <0.46 [facility] Comment on above: Order Comment: Speci men Type: BLOOD SPECIMENOrdering Facility: [facility] Address: [address] [place] [address] Performed By: #### 5 7021-8 ####[facility] [id number] [place] [address] [place] Eosinophils/100 WBC (Bld) 5.8 % Normal [facility] Comment on above: Order Comment: Speci men Type: BLOOD SPECIMENOrdering Facility: [facility] Address: [address] [place] [address] Performed By: #### 5 7021-8 ####[facility] [id number] [place] [address] [place] Erythrocyte distribution width (RBC) [Ratio] 12.6 % Normal 11.5-15.0 [facility] Comment on above: Order Comment: Speci men Type: BLOOD SPECIMENOrdering Facility: [facility] Address: [address] [place] [address] Performed By: #### 5 7021-8 ####[facility] NEAL [id number] [place] [address] [place] Hematocrit (Bld) [Volume fraction] 36.5 % Normal 36.0-46.0 [facility] Comment on above: Order Comment: Speci men Type: BLOOD SPECIMENOrdering Facility: [facility] Address: [address] [place] [address] Performed By: #### 5 7021-8 ####[facility] BAYNCMILVIA [id number] [place] [address] [place] Hemoglobin (Bld) [Mass/Vol] 12.0 g/dL Normal 11.5-15.5 [facility] Comment on above: Order Comment: Speci men Type: BLOOD SPECIMENOrdering Facility: [facility] Address: [address] [place] [address] Performed By: #### 5 7021-8 ####[facility] BAYANNAHilario [id number] [place] [address] [place] Immature granulocytes (Bld) [#/Vol] 0.25 10*3/uL High <0.10 [facility] Comment on above: Order Comment: Speci men Type: BLOOD SPECIMENOrdering Facility: [facility] Address: [address] [place] [address] Performed By: #### 5 7021-8 ####[facility] BAYNCLIA [id number] [place] [address] [place] Immature granulocytes/100 WBC (Bld) 1.8 % Normal [facility] Comment on above: Order Comment: Speci men Type: BLOOD SPECIMENOrdering Facility: [facility] Address: [address] [place] [address] Performed By: #### 5 7021-8 ####[facility] MILLWNCLIA [id number] [place] [address] [place] Lymphocytes (Bld) [#/Vol] 2.20 10*3/uL Normal 1.00-4.00 [facility] Comment on above: Order Comment: Speci men Type: BLOOD SPECIMENOrdering Facility: [facility] Address: [address] [place] [address] Performed By: #### 5 7021-8 ####[facility] [id number] [place] [address] [place] Lymphocytes/100 WBC (Bld) 15.6 % Normal [facility] Comment on above: Order Comment: Speci men Type: BLOOD SPECIMENOrdering Facility: [facility] Address: [address] [place] [address] Performed By: #### 5 7021-8 ####[facility] [id number] [place] [address] [place] MCH (RBC) [Entitic mass] 28.0 pg Normal 26.0-34.0 [facility] Comment on above: Order Comment: Speci men Type: BLOOD SPECIMENOrdering Facility: [facility] Address: [address] [place] [address] Performed By: #### 5 7021-8 ####[facility] [id number] [place] [address] [place] MCHC (RBC) [Mass/Vol] 32.9 g/dL Normal 30.5-36.0 [facility] Comment on above: Order Comment: Speci men Type: BLOOD SPECIMENOrdering Facility: [facility] Address: [address] [place] [address] Performed By: #### 5 7021-8 ####[facility] BAYNCLIA [id number] [place] [address] [place] MCV (RBC) [Entitic vol] 85.3 fL Normal 80.0-100.0 [facility] Comment on above: Order Comment: Speci men Type: BLOOD SPECIMENOrdering Facility: [facility] Address: [address] [place] [address] Performed By: #### 5 7021-8 ####[facility] [id number] [place] [address] [place] Monocytes (Bld) [#/Vol] 0.92 10*3/uL High <0.87 [facility] Comment on above: Order Comment: Speci men Type: BLOOD SPECIMENOrdering Facility: [facility] Address: [address] [place] [address] Performed By: #### 5 7021-8 ####[facility] [id number] [place] [address] [place] Monocytes/100 WBC (Bld) 6.5 % Normal [facility] Comment on above: Order Comment: Speci men Type: BLOOD SPECIMENOrdering Facility: [facility] Address: [address] [place] [address] Performed By: #### 5 7021-8 ####[facility] [id number] [place] [address] [place] Neutrophils (Bld) [#/Vol] 9.86 10*3/uL High 1.45-7.50 [facility] Comment on above: Order Comment: Speci men Type: BLOOD SPECIMENOrdering Facility: [facility] Address: [address] [place] [address] Performed By: #### 5 7021-8 ####[facility] BAYNCLI [id number] [place] [address] [place] Neutrophils/100 WBC (Bld) 69.7 % Normal [facility] Comment on above: Order Comment: Speci men Type: BLOOD SPECIMENOrdering Facility: [facility] Address: [address] [place] [address] Performed By: #### 5 7021-8 ####[facility] MICAHNGOC [id number] [place] [address] [place] Nucleated RBC (Bld) [#/Vol] 10*3/uL Normal <0.01 [facility] Comment on above: Order Comment: Speci men Type: BLOOD SPECIMENOrdering Facility: [facility] Address: [address] [place] [address] Performed By: #### 5 7021-8 ####[facility] BAYNCMILVIA [id number] [place] [address] [place] Nucleated RBC/100 WBC (Bld) [Ratio] 0.0 /100 WBC Normal [facility] Comment on above: Order Comment: Speci men Type: BLOOD SPECIMENOrdering Facility: [facility] Address: [address] [place] [address] Performed By: #### 5 7021-8 ####[facility] BAYNCLIA [id number] [place] [address] [place] Platelet mean volume (Bld) [Entitic vol] 9.1 fL Normal 9.0-12.7 [facility] Comment on above: Order Comment: Speci men Type: BLOOD SPECIMENOrdering Facility: [facility] Address: [address] [place] [address] Performed By: #### 5 7021-8 ####[facility] BAYNCLIA [id number] [place] [address] [place] Platelets (Bld) [#/Vol] 282 10*3/uL Normal 150-400 [facility] Comment on above: Order Comment: Speci men Type: BLOOD SPECIMENOrdering Facility: [facility] Address: [address] [place] [address] Performed By: #### 5 7021-8 ####[facility] BAYNCLIA [id number] [place] [address] [place] RBC (Bld) [#/Vol] 4.28 10*6/uL Normal 3.90-5.20 [facility] Comment on above: Order Comment: Speci men Type: BLOOD SPECIMENOrdering Facility: [facility] Address: [address] [place] [address] Performed By: #### 5 7021-8 ####[facility] BAYNCLIA [id number] [place] [address] [place] WBC (Bld) [#/Vol] 14.14 10*3/uL High 3.70-11.00 [facility] Comment on above: Order Comment: Speci men Type: BLOOD SPECIMENOrdering Facility: [facility] Address: [address] [place] [address] Performed By: #### 5 7021-8 ####[facility] BAYNCLIA [id number] [place] [address] [place] Comprehensive metabolic 2000 panelOrdered By: Jazmyn Joshua on 08-01-2024 Albumin [Mass/Vol] 3.4 g/dL Low 3.9 - 4.9 g/dL [facility] ALP [Catalytic activity/Vol] 110 U/L 34 - 123 U/L [facility] ALT [Catalytic activity/Vol] 12 U/L 7 - 38 U/L [facility] Anion gap [Moles/Vol] 12 mmol/L 8 - 15 mmol/L [facility] AST [Catalytic activity/Vol] 12 U/L Low 13 - 35 U/L [facility] Bilirubin [Mass/Vol] 0.3 mg/dL 0.2 - 1.3 mg/dL [facility] Calcium [Mass/Vol] 9 mg/dL 8.5 - 10. 2 mg/dL [facility] Chloride [Moles/Vol] 105 mmol/L 98 - 107 mmol/L [facility] CO2 [Moles/Vol] 19 mmol/L Low 22 - 30 mmol/L [facility] Creatinine [Mass/Vol] 0.53 mg/dL Low 0.58 - 0.96 mg/dL [facility] GFR/1.73 sq M.predicted among non-blacks MDRD (S/P/Bld) [Vol rate/Area] 137 mL/min/{1.73_m2} - PINF [facility] Comment on above: Estimated Glomerular Filtration Rate [...] [Mass/Vol] 91 mg/dL 74 - 99 mg/dL [facility] Comment on above: The [place] Di[employer] Association (ADA) provides guidance for [...] Standards of Medical Care in Diabetes 2016, [place] [employer]. Diabetes Care. 2016.39(Suppl 1). Interpretation and review of laboratory results Abnormal [facility] Potassium [Moles/Vol] 3.9 mmol/L 3.7 - 5.1 mmol/L [facility] Protein [Mass/Vol] 6.3 g/dL 6.3 - 8.0 g/dL [facility] Sodium [Moles/Vol] 136 mmol/L 136 - 144 mmol/L [facility] Urea nitrogen [Mass/Vol] 9 mg/dL 7 - 21 mg/dL [facility] Comprehensive metabolic 2000 panelon 08-01-2024 Albumin [Mass/Vol] 3.4 g/dL Low 3.9-4.[address] [facility] Comment on above: Order Comment: Speci men Type: SWAB Ordering Facility: [facility] Address: [address] [place] [address] Performed By: #### C VTV, BVAMP #### [facility] CLIA [id number] [address] [place] [address] [place] ALP [Catalytic activity/Vol] 110 U/L Normal 34-123 [facility] Comment on above: Order Comment: Speci men Type: SWAB Ordering Facility: [facility] Address: [address] [place] [address] Performed By: #### C VTV, BVAMP #### [facility] CLIA [id number] [address] [place] [address] [place] ALT [Catalytic activity/Vol] 12 U/L Normal 7-38 [facility] Comment on above: Order Comment: Speci men Type: SWAB Ordering Facility: [facility] Address: [address] [place] [address] Performed By: #### C VTV, BVAMP #### [facility] CLIA [id number] [address] [place] [address] [place] Anion gap [Moles/Vol] 12 mmol/L Normal 8-15 [facility] Comment on above: Order Comment: Speci men Type: SWAB Ordering Facility: [facility] Address: [address] [place] [address] Performed By: #### C VTV, BVAMP #### [facility] CLIA [id number] [address] [place] [address] [place] AST [Catalytic activity/Vol] 12 U/L Low 13-35 [facility] Comment on above: Order Comment: Speci men Type: SWAB Ordering Facility: [facility] Address: [address] [place] [address] Performed By: #### C VTV, BVAMP #### [facility] CLIA [id number] [address] [place] [address] [place] Bilirubin [Mass/Vol] 0.3 mg/dL Normal 0.2-1.3 [facility] Comment on above: Order Comment: Speci men Type: SWAB Ordering Facility: [facility] Address: [address] [place] [address] Performed By: #### C VTV, BVAMP #### [facility] CLIA [id number] [address] [place] [address] [place] Calcium [Mass/Vol] 9.0 mg/dL Normal 8.5-10.[address] [facility] Comment on above: Order Comment: Speci men Type: SWAB Ordering Facility: [facility] Address: [address] [place] [address] Performed By: #### C VTV, BVAMP #### [facility] CLIA [id number] [address] [place] [address] [place] Chloride [Moles/Vol] 105 mmol/L Normal 98-107 [facility] Comment on above: Order Comment: Speci men Type: SWAB Ordering Facility: [facility] Address: [address] [place] [address] Performed By: #### C VTV, BVAMP #### [facility] CLIA [id number] [address] [place] [address] [place] CO2 [Moles/Vol] 19 mmol/L Low 22-30 [facility] Comment on above: Order Comment: Speci men Type: SWAB Ordering Facility: [facility] Address: [address] [place] [address] Performed By: #### C VTV, BVAMP #### [facility] CLIA [id number] [address] [place] [address] [place] Creatinine [Mass/Vol] 0.53 mg/dL Low 0.58-0.96 [facility] Comment on above: Order Comment: Speci men Type: SWAB Ordering Facility: [facility] Address: [address] [place] [address] Performed By: #### C VTV, BVAMP #### [facility] CLIA [id number] [address] [place] [address] [place] Creatinine and Glomerular filtration rate.predicted panel (S/P/Bld) 137 mL/min/1.73m??? Normal >=60 [facility] Comment on above: Order Comment: Violeta alvarez Type: SWAB Ordering Facility: [facility] Address: [address] [place] [address] Result Comment: Ketty mated Glomerular Filtration Rate [...] Performed By: #### C VTV, BVAMP #### [facility] CLIA [id number] [address] [place] [address] [place] Glucose [Mass/Vol] 91 mg/dL Normal 74-[address] [facility] Comment on above: Order Comment: Violeta alvarez Type: SWAB Ordering Facility: [facility] Address: [address] [place] [address] Result Comment: The [place] Diabetes Association (ADA) provides guidance for cutoff [...] Standards of Medical Care in Diabetes 2016, [place] [employer]. Diabetes Care. 2016.39(Suppl 1). Performed By: #### C VTV, BVAMP #### [facility] CLIA [id number] [address] [place] [address] [place] Potassium [Moles/Vol] 3.9 mmol/L Normal 3.7-5.1 [facility] Comment on above: Order Comment: Speci men Type: SWAB Ordering Facility: [facility] Address: [address] [place] [address] Performed By: #### C VTV, BVAMP #### [facility] CLIA [id number] [address] [place] [address] [place] Protein [Mass/Vol] 6.3 g/dL Normal 6.3-8.[address] [facility] Comment on above: Order Comment: Speci men Type: SWAB Ordering Facility: [facility] Address: [address] [place] [address] Performed By: #### C VTV, BVAMP #### [facility] CLIA [id number] [address] [place] [address] [place] Sodium [Moles/Vol] 136 mmol/L Normal 136-[address] [facility] Comment on above: Order Comment: Speci men Type: SWAB Ordering Facility: [facility] Address: [address] [place] [address] Performed By: #### C VTV, BVAMP #### [facility] CLIA [id number] [address] [place] [address] [place] Urea nitrogen [Mass/Vol] 9 mg/dL Normal 7-21 [facility] Comment on above: Order Comment: Speci men Type: SWAB Ordering Facility: [facility] Address: [address] [place] [address] Performed By: #### C VTV, BVAMP #### [facility] CLIA [id number] [address] [place] [address] [place] BACTERIAL VAGINOSIS NAATon 0 5- Lactobacillus crispatus+gasseri+imelda enii + Gardnerella vaginalis + Atopobium vaginae rRNA MEG+probe Ql (Vag fld) Not detected Normal Not detected [facility] Comment on above: Order Comment: Speci men Type: SWABOrdering Facility: [facility] Address: [address] [place] [address] Performed By: #### C VTV, BVAMP ####[facility] [id number] [place] [address] [place] FRANCO/TRICHOMONAS NAATon 0 07-20-2024 C. glabrata RNA MEG+probe Ql (Vag fld) Not detected Normal Not detected [facility] Comment on above: Order Comment: Speci men Type: SWABOrdering Facility: [facility] Address: [address] [place] [address] Performed By: #### C VTV, BVAMP ####[facility] [id number] [address] [place] [facility] Franco sp DNA MEG+probe Ql (Vag fld) Not detected Normal Not detected [facility] Comment on above: Order Comment: Speci men Type: SWABOrdering Facility: [facility] Address: [address] [place] [address] Result Comment: The Franco species group target includes C. albicans, C. tropicalis, C. parapsilosis, and C. dubliniensis. Performed By: #### C VTV, BVAMP ####[facility] [id number] [address] [place] T. vaginalis DNA MEG+probe Ql (Unsp spec) Not detected Normal Not detected [facility] Comment on above: Order Comment: Speci men Type: SWABOrdering Facility: [facility] Address: [address] [place] [address] Performed By: #### C VTV, BVAMP ####[facility] [id number] [place] [address] [place] CBC W Auto Differential pane l (Bld)on 07-20-2024 Basophils (Bld) [#/Vol] 0.07 10*3/uL Normal <0.11 [facility] Comment on above: Order Comment: Speci men Type: BLOOD SPECIMEN Ordering Facility: [facility] Address: [address] [place] [address] Performed By: #### 5 7021-8 #### [facility] CLIA [id number] [address] [place] [address] [place] Basophils/100 WBC (Bld) 0.5 % Normal [facility] Comment on above: Order Comment: Speci men Type: BLOOD SPECIMEN Ordering Facility: [facility] Address: [address] [place] [address] Performed By: #### 5 7021-8 #### [facility] CLIA [id number] [address] [place] [address] [place] Differential cell count method Nom (Bld) Auto Normal [facility] Comment on above: Order Comment: Speci men Type: BLOOD SPECIMEN Ordering Facility: [facility] Address: [address] [place] [address] Performed By: #### 5 7021-8 #### [facility] CLIA [id number] [address] [place] [address] [place] Eosinophils (Bld) [#/Vol] 0.58 10*3/uL High <0.46 [facility] Comment on above: Order Comment: Speci men Type: BLOOD SPECIMEN Ordering Facility: [facility] Address: [address] [place] [address] Performed By: #### 5 7021-8 #### [facility] CLIA [id number] [address] [place] [address] [place] Eosinophils/100 WBC (Bld) 4.3 % Normal [facility] Comment on above: Order Comment: Speci men Type: BLOOD SPECIMEN Ordering Facility: [facility] Address: [address] [place] [address] Performed By: #### 5 7021-8 #### [facility] CLIA [id number] [address] [place] [address] [place] Erythrocyte distribution width (RBC) [Ratio] 12.7 % Normal 11.5-15.0 [facility] Comment on above: Order Comment: Speci men Type: BLOOD SPECIMEN Ordering Facility: [facility] Address: [address] [place] [address] Performed By: #### 5 7021-8 #### [facility] CLIA [id number] [address] [place] [address] [place] Hematocrit (Bld) [Volume fraction] 35.8 % Low 36.0-46.0 [facility] Comment on above: Order Comment: Speci men Type: BLOOD SPECIMEN Ordering Facility: [facility] Address: [address] [place] [address] Performed By: #### 5 7021-8 #### [id number] [address] [place] [address] [place] Hemoglobin (Bld) [Mass/Vol] 11.8 g/dL Normal 11.5-15.5 [facility] Comment on above: Order Comment: Speci men Type: BLOOD SPECIMEN Ordering Facility: [facility] Address: [address] [place] [address] Performed By: #### 5 7021-8 #### [facility] [id number] [address] [place] [address] [place] Immature granulocytes (Bld) [#/Vol] 0.15 10*3/uL High <0.10 [facility] Comment on above: Order Comment: Speci men Type: BLOOD SPECIMEN Ordering Facility: [facility] Address: [address] [place] [address] Performed By: #### 5 7021-8 #### [facility] [id number] [address] [place] [address] [place] Immature granulocytes/100 WBC (Bld) 1.1 % Normal [facility] Comment on above: Order Comment: Speci men Type: BLOOD SPECIMEN Ordering Facility: [facility] Address: [address] [place] [address] Performed By: #### 5 7021-8 #### [facility] CLIA [id number] [address] [place] [address] [place] Lymphocytes (Bld) [#/Vol] 2.19 10*3/uL Normal 1.00-4.00 [facility] Comment on above: Order Comment: Speci men Type: BLOOD SPECIMEN Ordering Facility: [facility] Address: [address] [place] [address] Performed By: #### 5 7021-8 #### [facility] CLIA [id number] [address] [place] [address] [place] Lymphocytes/100 WBC (Bld) 16.1 % Normal [facility] Comment on above: Order Comment: Speci men Type: BLOOD SPECIMEN Ordering Facility: [facility] Address: [address] [place] [address] Performed By: #### 5 7021-8 #### [facility] CLIA [id number] [address] [place] [address] [place] MCH (RBC) [Entitic mass] 28.7 pg Normal 26.0-34.0 [facility] Comment on above: Order Comment: Speci men Type: BLOOD SPECIMEN Ordering Facility: [facility] Address: [address] [place] [address] Performed By: #### 5 7021-8 #### [facility] CLIA [id number] [address] [place] [address] [place] MCHC (RBC) [Mass/Vol] 33.0 g/dL Normal 30.5-36.0 [facility] Comment on above: Order Comment: Speci men Type: BLOOD SPECIMEN Ordering Facility: [facility] Address: [address] [place] [address] Performed By: #### 5 7021-8 #### [facility] CLIA [id number] [address] [place] [address] [place] MCV (RBC) [Entitic vol] 87.1 fL Normal 80.0-100.0 [facility] Comment on above: Order Comment: Speci men Type: BLOOD SPECIMEN Ordering Facility: [facility] Address: [address] [place] [address] Performed By: #### 5 7021-8 #### [facility] CLIA [id number] [address] [place] [address] [place] Monocytes (Bld) [#/Vol] 0.86 10*3/uL Normal <0.87 [facility] Comment on above: Order Comment: Speci men Type: BLOOD SPECIMEN Ordering Facility: [facility] Address: [address] [place] [address] Performed By: #### 5 7021-8 #### [facility] CLIA [id number] [address] [place] [address] [place] Monocytes/100 WBC (Bld) 6.3 % Normal [facility] Comment on above: Order Comment: Speci men Type: BLOOD SPECIMEN Ordering Facility: [facility] Address: [address] [place] [address] Performed By: #### 5 7021-8 #### [facility] CLIA [id number] [address] [place] [address] [place] Neutrophils (Bld) [#/Vol] 9.79 10*3/uL High 1.45-7.50 [facility] Comment on above: Order Comment: Speci men Type: BLOOD SPECIMEN Ordering Facility: [facility] Address: [address] [place] [address] Performed By: #### 5 7021-8 #### [facility] CLIA [id number] [address] [place] [address] [place] Neutrophils/100 WBC (Bld) 71.7 % Normal [facility] Comment on above: Order Comment: Speci men Type: BLOOD SPECIMEN Ordering Facility: [facility] Address: [address] [place] [address] Performed By: #### 5 7021-8 #### [facility] CLIA [id number] [address] [place] [address] [place] Nucleated RBC (Bld) [#/Vol] 10*3/uL Normal <0.01 [facility] Comment on above: Order Comment: Speci men Type: BLOOD SPECIMEN Ordering Facility: [facility] Address: [address] [place] [address] Performed By: #### 5 7021-8 #### [facility] CLIA [id number] [address] [place] [address] [place] Nucleated RBC/100 WBC (Bld) [Ratio] 0.0 /100 WBC Normal [facility] Comment on above: Order Comment: Speci men Type: BLOOD SPECIMEN Ordering Facility: [facility] Address: [address] [place] [address] Performed By: #### 5 7021-8 #### [facility] CLIA [id number] [address] [place] [address] [place] Platelet mean volume (Bld) [Entitic vol] 9.0 fL Normal 9.0-12.7 [facility] Comment on above: Order Comment: Speci men Type: BLOOD SPECIMEN Ordering Facility: [facility] Address: [address] [place] [address] Performed By: #### 5 7021-8 #### [facility] CLIA [id number] [address] [place] [address] [place] Platelets (Bld) [#/Vol] 269 10*3/uL Normal 150-400 [facility] Comment on above: Order Comment: Speci men Type: BLOOD SPECIMEN Ordering Facility: [facility] Address: [address] [place] [address] Performed By: #### 5 7021-8 #### [facility] CLIA [id number] [address] [place] [address] [place] RBC (Bld) [#/Vol] 4.11 10*6/uL Normal 3.90-5.20 [facility] Comment on above: Order Comment: Speci men Type: BLOOD SPECIMEN Ordering Facility: [facility] Address: [address] [place] [address] Performed By: #### 5 7021-8 #### [facility] CLIA [id number] [address] [place] [address] [place] WBC (Bld) [#/Vol] 13.64 10*3/uL High 3.70-11.00 [facility] Comment on above: Order Comment: Speci men Type: BLOOD SPECIMEN Ordering Facility: [facility] Address: [address] [place] [address] Performed By: #### 5 7021-8 #### [facility] CLIA [id number] [address] [place] [address] [place] GESTATIONAL GLUCOSE SCREEN, 1-HOUR, 50 GRAM, NON-FASTINGon 07-20-2024 Glucose [Mass/Vol] 116 mg/dL Normal 74-[address] [facility] Comment on above: Order Comment: Speci men Type: BLOOD SPECIMENOrdering Facility: [facility] Address: [address] [place] [address] Result Comment: [facility] Congress of Obstetricians and Gynecologists (Emir/Shon) guidelines state a gestational diabetes mellitus positive screen is made, in women not previously diagnosed with overt diabetes, when the 1 hr plasma glucose level is equal to or above 140 mg/dL. The [facility] [employer] [facility] and [facility] [place] recommends a 135 mg/dL cutoff. Performed By: #### G LTGST ####[facility] [id number] [place] [address] [place] Reagin and Treponema pallidu m IgG and IgM [Interp]on 07-20-2024 T. pallidum IgG+IgM IA Ql (S) Non-Reactive Normal Nonreactive [facility] Comment on above: Order Comment: Speci antonio Type: BLOOD SPECIMENOrdering Facility: [facility] Address: [address] [place] [address] Performed By: #### 7 3752-8 ####[facility] [id number] [place] [address] [place] Reagin+T pallidum IgG+IgM Se rPl-Impon 07-20-2024 Reagin and Treponema pallidum IgG and IgM [Interp] Cannot exclude recent Treponemal infection if specimen collected within 7-10 days after appearance of suspect lesions or 2-3 weeks after an exposure. Clinical correlation is required. Normal [facility] Comment on above: Order Comment: Violeta alvarez Type: BLOOD SPECIMENOrdering Facility: [facility] Address: [address] [place] [address] Performed By: #### 7 3752-8 ####[facility] [id number] [place] [address] [place] CNPSherine 07-19-2024 CNPN Telephone (OBGYWM) AMIRAH WOODARD ([id number]) 3 F Date Time Provider Department 07/19/24 CASTILLO MCKEON During your visit today, we recorded the following information about you: Kia Sheldon RN 07/19/2024 4:23 PM Signed 28w2d Patient called to report that she has not felt the baby move since this morning. Inquired if she did kick counts today. Patient has not. Advised that she would need to go to [facility] for evaluation given the office hours. Instructed patient how to do kick counts if she wanted to see how many movements she has in an hour first. Updated HANDP faxed to [facility]. JIA Bundy Rebecca L, MD 07/19/2024 4:27 PM Signed noted. thanks. Castillo Mckeon MD Allergies As of Date: 07/19/2024 Noted Allergy Reaction SEASONAL ALLERGIES 12/29/2017 14 - Other: See Comments Comments: Puffy itchy eyes and scratchy throat. Date Reviewed: 06/21/2024 Reviewed by: Shree Santos MA - Fully Assessed Reason for Visit: Decreased FM [Other] Prescriptions as of 07/19/2024 - Cgxqteun-Iw-Cvd-Fe-FA tab Take 1 tablet by mouth once [...] Status:Closed by VIVIAN ADAMS on 07/19/24 Normal [facility] UA DIP, URINE (POC)on 2024 BILIRUBIN UA (POCT) Negative Negative [facility] CLARITY UA (POCT) Clear [facility] COLOR UA (POCT) Yellow [facility] GLUCOSE UA (POCT) Negative Negative mg/dL [facility] Hemoglobin Ql (U) Negative Negative [facility] Interpretation and review of laboratory results Abnormal [facility] KETONE UA (POCT) Negative Negative mg/dL [facility] LEUKOCYTES UA (POCT) Trace Abnormal Negative [facility] NITRITE UA (POCT) Negative [facility] PH UA (POCT) 7 4.5 - 8.0 [facility] Protein Ql (U) Negative Negative mg/dL [facility] SPECIFIC GRAVITY UA (POCT) 1.025 1.005 - 1.030 [facility] UROBILINOGEN UA (POCT) 0.2 Normal E.U./d L [facility] Location:[facility], [address] , [place], [place], [id number] [place] [address] POINT OF CARE [facility] Examination level ultrasound on 05-29-2024 Indication Detailed [...] 14 oz EFW by: Hadlock (HC-AC-FL) Extended Candy Cutter Hand 5.0 mm CM 4.4 mm 28% Nicolaides [...] normal LVOT view: normal 3-vessel view: normal 6-bmuiei-clogpeg view: normal Heart / Thorax Situs: situs [...] Read By: Kermit Carmen M.D. 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 [facility] During your visit today, we recorded [...] PRAF [4193] Prescriptions as of 05/28/2024 - Ancqtsru-Mh-Jgm-Fe-FA tab Take 1 tablet by mouth once [...] Status:Closed by TIO HUTCHISON on 05/28/24 Normal [facility] Examination level ultrasound on 05-25-2024 Radiology [facility]ative[facility] C[facility]N Telephone (OBGYWM) AMIRAH WOODARD ([id number]) 3 F Date Time Provider Department 05/01/24 JANELLE MARIN OBGYWM During your visit today, we recorded [...] increased LOF tonight I recommend going to [facility]. MD Monalisa Oleary Jennifer, JIA 05/01/2024 3:44 PM Signed Left message for patient to call office. Kia Sheldon RN Allergies As of Date: 05/01/2024 Noted Allergy Reaction SEASONAL ALLERGIES 12/29/2017 14 - Other: See Comments Comments: Puffy itchy eyes and scratchy throat. Date Reviewed: 04/27/2024 Reviewed by: Shree Santos MA - Fully Assessed Reason for Visit: Question (OB Question) [2252] Prescriptions as of 05/01/2024 - Qsppqaon-Gf-Drm-Fe-FA tab Take 1 tablet by mouth once [...] Status:Closed by KIA SHELDON on 05/01/24 Normal [facility] Emergency Department Summary on 04-28-2024 Emergency Department Summary [facility] Medical Records Department [address] [place] [address] Emergency Department Summary 04/28/24 MR#: [id number] Acct: [id number] Name: AMIRAH WOODARD Rep #: [id number] : 2005 18 From: Shraddha HAYDEN PCP: Dr. Que Chavez MD Status:DEP ER Location: ED HPI History of Present Illness Chief Complaint: General Illness Narrative Narrative: 18-year-old female is 16 weeks and developed congestion yesterday and this morning the fatigue, chills, body aches, headache and cough. She works in the [employer] and has been around patients with different respiratory viruses. She called her [employer] who recommended she come in and be screened for the flu. She also has urinary frequency today but no burning or hematuria. She has no abdominal pain or vaginal bleeding or discharge. PFSH PFS Medical History Left ankle pain Home Medications ???Medication ???Instructions ???Recorded ???Last Taken ???Type Lactobacillus 25 billion cap PO 10/04/23 Unknown History cell-Bifido 25 billion sivi-ZYJ-hzleq capsule albuterol sulfate 90 mcg/actuation inhalation 10/04/23 [...] Ox 100 Oxygen Delivery Method Room Air [facility] Narrative Medical decision making narrative: Differential: Viral [...] and recommended Tylenol and follow-up with her [employer]. She was discharged in stable condition. Lab Data Attestation: I reviewed the patient's lab results. Labs: Laboratory Results - last 24 hr 04/28/24 20:42 Urine Color Yellow Urine Clarity Clear Urine pH 6.0 Ur Specific [place] 1.015 Urine Protein 15 H Urine Glucose (UA) Normal Urine Ketones Negative Urine Occult Blood Negative Urine Nitrite Negative Urine Bilirubin Negative Urine Urobilinogen Normal Ur Leukocyte Esterase Negative Urine RBC 0 SEEN Urine WBC 0 SEEN Ur Squamous Epith Cells 0 SEEN Urine Bacteria 0 SEEN Urine Mucus 0 SEEN [facility] Lab Data Labs: Laborator (more content not included)... Normal [facility] M100.678on 04-28-2024 M100.678 SARS-CoV-2 (COVID 19 ) Negative INFLUENZA A Negative INFLUENZA B Negative RSV PCR Negative Normal [facility] Comment on above: Performed By: #### M 100.678 #### [facility] [address] [place], [address] Urinalysis, Completeon 04-28 RBC 0 SEEN Normal 0-5 [facility] Comment on above: Order Comment: CLEAN CATCH Performed By: #### L 400.0001 #### [facility] [address] [place], [address] BACTERIA 0 SEEN Normal None Seen [facility] Comment on above: Order Comment: CLEAN CATCH Performed By: #### L 400.0001 #### [facility] [address] [place], [address] EPI,SQUAMOUS 0 SEEN Normal 5-10 [facility] Comment on above: Order Comment: CLEAN CATCH Performed By: #### L 400.0001 #### [facility] [address] [place], [address] Mucus Ql (Urine sed) 0 SEEN Normal [facility] Comment on above: Order Comment: CLEAN CATCH Performed By: #### L 400.0001 #### [facility] [address] [place], [address] WBC 0 SEEN Normal 0-5 [facility] Comment on above: Order Comment: CLEAN CATCH Performed By: #### L 400.0001 #### [facility] [address] [place], [address] CNPNon 04-13-2024 JOSELYNN Telephone (OBJERRODWM) AMIRAH WOODARD ([id number]) 3 F Date Time Provider Department 04/13/24 [...] by LA DEL CASTILLO on 04/13/24 Normal [facility] nuchal translucency me asured by Quentin 04-03-2024 Indication First trimester anatomic survey Maternal obesity, BMI >30 Impression REMOTE READ The patient is referred for a first trimester anatomy scan including nuchal translucency measurement as clinically indicated. - Single, live, intrauterine . - [place] rump length measurement is consistent with the [...] view: normal 4-chamber view with color: normal 9-hddnky-idgsgxc view: normal Abdominal cord insertion: normal Stomach: [...] ovary Vol 3.2 cm Performed By: Caroline Vides RDMS, RVT Read By: Marietta Burr M.D. MATERNAL MEDICINE [facility] Radiology Study observation (narrative) [facility] BACTERIAL VAGINOSIS NAATon 0 03-28-2024 Lactobacillus crispatus+gasseri+imelda enii + Gardnerella vaginalis + Atopobium vaginae rRNA MEG+probe Ql (Vag fld) Not detected Normal Not detected [facility] Comment on above: Order Comment: Speci men Type: SWABOrdering Facility: [facility] Address: [address] [place] [address] Performed By: #### C VTV, BVAMP ####[facility] LABCLIA [id number] [place] [address] [place] FRANCO/TRICHOMONAS NAATon 0 03-28-2024 C. glabrata RNA MEG+probe Ql (Vag fld) Not detected Normal Not detected [facility] Comment on above: Order Comment: Speci men Type: SWABOrdering Facility: [facility] Address: [address] [place] [address] Performed By: #### C VTV, BVAMP ####[facility] LABCLIA [id number] [address] [place] Franco sp DNA MEG+probe Ql (Vag fld) Detected Abnormal Not detected [facility] Comment on above: Order Comment: Speci men Type: SWABOrdering Facility: [facility] Address: [address] [place] [address] Result Comment: The Franco species group target includes C. albicans, C. tropicalis, C. parapsilosis, and C. dubliniensis. Performed By: #### C VTV, BVAMP ####[facility] LABCLIA [id number] [address] [place] T. vaginalis DNA MEG+probe Ql (Unsp spec) Not detected Normal Not detected [facility] Comment on above: Order Comment: Speci men Type: SWABOrdering Facility: [facility] Address: [address] [place] [address] Performed By: #### C VTV, BVAMP ####[facility] LABCLIA [id number] [address] [place] CNPSherine 03-22-2024 JOSELYNN Telephone (OBGYWM) AMIRAH WOODARD ([id number]) 3 F Date Time Provider Department 03/22/24 LA DEL CASTILLO During your visit today, we recorded the following information about you: Caroline Mora RN 03/22/2024 8:16 AM Signed Patient 11w2d [...] Date Reviewed: 03/19/2024 Reviewed by: Josiane Goodwin APRN.ENVIRONMENTAL SCIENCE INSTRUCTOR - Fully Assessed Reason for Visit: Medication Question [5128] Prescriptions as of 03/22/2024 - amoxicillin (AMOXIL) [...] Status:Closed by LA DEL CASTILLO on 03/22/24 Normal [facility] CNOVon 03-19-2024 CNOV Office Visit (PEDSWS ) AMIRAH WOODARD ([id number]) 3 F Date Time Provider Department 03/19/24 1:45 PM JOSIANE GOODWIN PEDSWS During your visit today, we recorded the following information about you: Temperature Pulse Respiration Weight 98.2 degrees 84/minute 16/minute 87.6 kg Josiane Goodwin, CAMPUS RECRUITER.ENVIRONMENTAL SCIENCE INSTRUCTOR 03/20/2024 9:03 PM Signed PEDIATRIC SICK VISIT SUBJECTIVE: Shahzadkira Woodard is a 18 year old Patient [...] provider while in office today. Josiane Goodwin APRN.JOSELYN Allergies As of Date: 03/19/2024 Noted Allergy Reaction SEASONAL ALLERGIES 12/29/2017 14 - Other: See Comments Comments: Puffy itchy eyes and scratchy throat. Date Reviewed: 03/19/2024 Reviewed by: Josiane Goodwin APRN.ENVIRONMENTAL SCIENCE INSTRUCTOR - Fully Assessed Reason for Visit: Cough [...] 03/19/2024 Rou (more content not included)... Normal [facility] CNOVon 03-13-2024 CN Office Visit (WSTR ) VANCEAMIRAH Darrin ([id number]) 3 F Date Time Provider Department 03/13/24 1:00 PM ROBERTO POWERS [facility] During your visit today, we recorded the following information about you: Temperature Pulse Respiration Blood pressure 97.6 degrees 87/minute 18/minute 110/72 Weight 87.1 kg Roberto Powers PA-C 03/13/2024 12:33 PM Signed This note was created using eTelemetryriter. Subjective Amirah Clifford Vance is a 18 year old female. Patient [...] the patient was advised to see her INSPECTING AND TESTING LEAD HAND for further evaluation and management. CLINICAL IMPRESSION: [...] Diagnosis:Sore throat [J02.9] Order(s):STREP A MOLECULAR (POC) [9542969] Order #: [id number]. #:[id number] Prescriptions as of 03/13/2024 - aspirin, enteric [...] teen in f*02/21/2024 Level of Service: OFFICE/OUTPATIENT [facility] 30 MINUTES [68081] Encounter Status:Closed by PRIYA, ROBERTO on 03/13/24 Normal [facility] FCTEOIAE09 PLUSon 03-13-2024 Cell-free DNA./Cell-free DNA.total Dosage of chromosome-specific cfDNA (cfDNA) [Molar fraction] 18% Normal [facility] Comment on above: Order Comment: Speci men Type: BLOOD SPECIMENOrdering Facility: [facility] Address: [facility] [place] [address] Performed By: #### M AT21 ####[facility] LABCLIA [id number] [place] [address] Chr 13+18+21+X+Y aneuploidy Dosage of chromosome-specific cfDNA Ql (cfDNA) Negative Normal [facility] Comment on above: Order Comment: Speci men Type: BLOOD SPECIMENOrdering Facility: [facility] Address: [address] [place] [address] Performed By: #### M AT21 ####[facility] LABCLIA [id number] [place] [address] Chr 21 trisomy Dosage of chromosome-specific cfDNA Ql (cfDNA) Negative Normal [facility] Comment on above: Order Comment: Speci men Type: BLOOD SPECIMENOrdering Facility: [facility] Address: [address] [place] [address] Performed By: #### M AT21 ####[facility] LABCLIA [id number] [place] [address] Chr X and Y aneuploidy risk Sequencing Ql (cfDNA) [Interp] Not detected Normal [facility] Comment on above: Order Comment: Speci men Type: BLOOD SPECIMENOrdering Facility: [facility] Address: [address] [place] [address] Result Comment: Not Detected Not Detected Performed By: #### M AT21 ####[facility] LABCLIA [id number] [place] [address] Citation Jn (Reference lab test) Comment Normal [facility] Comment on above: Order Comment: Speci men Type: BLOOD SPECIMENOrdering Facility: [facility] Address: [address] [place] [address] Result Comment: 1. P иван DILL, et al. Audra Med. 2012;14(3):296-305. 2. Jamel HARRELL et al. Prenat Diag. 2013;33(6):591-597. 3. Edvin C, et al. Clin Chem. 2015 Jun;61(4):608-616. 4. Jacey DILL, et al. Audra Med. 2011;13(11):913-920. 5. ACOG/SMFM Practice Bulletin No. 226, Dec 2019. Performed By: #### M AT21 ####[facility] LABCLIA [id number] [place] [address] Gestational age Estimated from conception date Spencer Normal [facility] Comment on above: Order Comment: Speci men Type: BLOOD SPECIMENOrdering Facility: [facility] Address: [address] [place] [address] Performed By: #### M AT21 ####[facility] LABCLIA [id number] [place] [address] GESTATIONALAGE AGE > OR = 9W Yes Normal [facility] Comment on above: Order Comment: Speci men Type: BLOOD SPECIMENOrdering Facility: [facility] Address: [address] [place] [address] Performed By: #### M AT21 ####[facility] LABCLIA [id number] [place] [address] Laboratory comment Jn (Report) Comment Normal [facility] Comment on above: Order Comment: Speci men Type: BLOOD SPECIMENOrdering Facility: [facility] Address: [address] [place] [address] Result Comment: The MaterniT(R) 21 PLUS laboratory-developed test (LDT) analyzes circulating cell-free DNA from a maternal blood sample. This test is used for screening purposes and not diagnostic. Clinical correlation is recommended. Validation data on twin pregnancies is limited and the ability of this test to detect aneuploidy in higher multiple gestations has not yet been validated. Performed By: #### M AT21 ####[facility] LABCLIA [id number] [place] [address] director of purchasing name Nom (Provider) Comment Normal [facility] Comment on above: Order Comment: Speci men Type: BLOOD SPECIMENOrdering Facility: [facility] Address: [address] [place] [address] Result Comment: This specimen showed an expected representation of chromosome 21, 18 and 13 material. Clinical correlation is suggested. Comment Jean Claude Guzmán MD, PhD, Director, [employer] Performed By: #### M AT21 ####[facility] LABCLIA [id number] [place] [address] LIMITATIONS OF THE TEST Comment Normal [facility] Comment on above: Order Comment: Speci men Type: BLOOD SPECIMENOrdering Facility: [facility] Address: [address], [place] [address] Result Comment: Steve shin the results of [...] and Fragmin(R)). Performed By: #### M AT21 ####[facility] LABCLIA [id number] [place] [id number] Monosomy X risk Dosage of chromosome-specific cfDNA Ql (Plasma cell-free+WBC DNA) [Interp] Not detected Normal [facility] Comment on above: Order Comment: Speci men Type: BLOOD SPECIMENOrdering Facility: [facility] Address: [address] [place] [address] Performed By: #### M AT21 ####[facility] LABCLIA [id number] [place] [id number] NEGATIVE PREDICTIVE VALUE Note Normal [facility] Comment on above: Order Comment: Speci men Type: BLOOD SPECIMENOrdering Facility: [facility] Address: [address] [place] [address] Result Comment: The Negative Predictive Value (NPV) for trisomy 21, 18, and 13 is greater than 99%. The NPV for SCA and ESS cannot be calculated as SCA and ESS are only reported when an abnormality is detected. Performed By: #### M AT21 ####[facility] LABCLIA [id number] [place] [address] NOTE Comment Normal [facility] Comment on above: Order Comment: Speci men Type: BLOOD SPECIMENOrdering Facility: [facility] Address: [address] [place] [address] Result Comment: See Notes [employer]. is a subsidiary of [employer], using the brand [employer]. This test was developed and its performance characteristics determined by [employer]. It has not been cleared or approved by the Food and Drug Administration. This laboratory is certified under the Clinical Laboratory Improvement Amendments (CLIA) as qualified to perform high complexity clinical laboratory testing and accredited by the [employer] (CAP). If there is future clinical need for adding MaterniT GENOME testing, this specimen will be available until term. [facility] samples will not be retained beyond 60 days. [facility] patients will have to send a new sample for re-sequencing ([facility] Test Code: [id number]). Performed By: #### M AT21 ####[facility] LABCLIA [id number] [place] [address] PERFORMANCE CHARACTERISTICS Note Normal [facility] Comment on above: Order Comment: Violeta alvarez Type: BLOOD SPECIMENOrdering Facility: [facility] Address: [address], [place] [address] Result Comment: ! Sex ! Accuracy: 99.4% [...] gestation only. Performed By: #### M AT21 ####[email or web address] LABSpoondateIA [id number] [place] [address] POSITIVE PREDICTIVE VALUE N/A Normal [facility] Comment on above: Order Comment: Speci antonio Type: BLOOD SPECIMENOrdering Facility: [facility] Address: [address] [place] [address] Performed By: #### M AT21 ####[email or web address] LABCLIA [id number] [place] [address] Reference Lab Test Method Comment Normal [facility] Comment on above: Order Comment: Violeta alvarez Type: BLOOD SPECIMENOrdering Facility: [facility] Address: [address] [place] [address] Result Comment: See Notes Circulating cell-free DNA [...] and 22. Performed By: #### M AT21 ####[facility] LABCLIA [id number] [place] [address] Sex Dosage of chromosome-specific cfDNA Nom (cfDNA) Comment Normal [facility] Comment on above: Order Comment: Speci men Type: BLOOD SPECIMENOrdering Facility: [facility] Address: [address] [place] [address] Result Comment: Cons istent with Male Performed By: #### M AT21 ####[facility] LABCLIA [id number] [place] [address] Test performance information Jn (Unsp spec) Comment Normal [facility] Comment on above: Order Comment: Speci men Type: BLOOD SPECIMENOrdering Facility: [facility] Address: [address] [place] [address] Result Comment: The performance characteristics of the MaterniT(R) 21 PLUS laboratory-developed test (LDT) have been determined in a clinical validation study with women at increased risk for chromosomal aneuploidy.[1-4] Performed By: #### M AT21 ####[facility] LABCLIA [id number] [place] [address] Trisomy 13 risk Dosage of chromosome-specific cfDNA Ql (cfDNA) [Interp] Negative Normal [facility] Comment on above: Order Comment: Speci men Type: BLOOD SPECIMENOrdering Facility: [facility] Address: [address] [place] [address] Performed By: #### M AT21 ####[facility] LABCLIA [id number] [place] [address] Trisomy 18 risk Dosage of chromosome-specific cfDNA Ql (Plasma cell-free+WBC DNA) [Interp] Negative Normal [facility] Comment on above: Order Comment: Speci men Type: BLOOD SPECIMENOrdering Facility: [facility] Address: [address] [place] [address] Performed By: #### M AT21 ####[facility] LABCLIA [id number] [place] [address] STREP A MOLECULAR (POC)on Procedural Control Valid [facility] Strep A (POCT) Negative Negative [facility] CBC W Auto Differential pane l (Bld)on 02-24-2024 Basophils (Bld) [#/Vol] 0.07 10*3/uL Normal <0.11 [facility] Comment on above: Order Comment: Speci men Type: BLOOD SPECIMENOrdering Facility: [facility] Address: [address] [place] [address] Performed By: #### 5 7021-8 ####[facility] [id number] [place] [address] [place] Basophils/100 WBC (Bld) 0.7 % Normal [facility] Comment on above: Order Comment: Speci men Type: BLOOD SPECIMENOrdering Facility: [facility] Address: [address] [place] [address] Performed By: #### 5 7021-8 ####[facility] [id number] [place] [address] [place] Differential cell count method Nom (Bld) Auto Normal [facility] Comment on above: Order Comment: Speci men Type: BLOOD SPECIMENOrdering Facility: [facility] Address: [address] [place] [address] Performed By: #### 5 7021-8 ####[facility] MILLWNCLIA [id number] [place] [address] [place] Eosinophils (Bld) [#/Vol] 0.24 10*3/uL Normal <0.46 [facility] Comment on above: Order Comment: Speci men Type: BLOOD SPECIMENOrdering Facility: [facility] Address: [address] [place] [address] Performed By: #### 5 7021-8 ####[facility] MILLWNCLIA [id number] [place] [address] [place] Eosinophils/100 WBC (Bld) 2.4 % Normal [facility] Comment on above: Order Comment: Speci men Type: BLOOD SPECIMENOrdering Facility: [facility] Address: [address] [place] [address] Performed By: #### 5 7021-8 ####[facility] BAYSONIA [id number] [place] [address] [place] Erythrocyte distribution width (RBC) [Ratio] 14.0 % Normal 11.5-15.0 [facility] Comment on above: Order Comment: Speci men Type: BLOOD SPECIMENOrdering Facility: [facility] Address: [address] [place] [address] Performed By: #### 5 7021-8 ####[facility] BAYSONIA [id number] [place] [address] [place] Hematocrit (Bld) [Volume fraction] 41.8 % Normal 36.0-46.0 [facility] Comment on above: Order Comment: Speci men Type: BLOOD SPECIMENOrdering Facility: [facility] Address: [address] [place] [address] Performed By: #### 5 7021-8 ####[facility] BAYNCALMITA [id number] [place] [address] [place] Hemoglobin (Bld) [Mass/Vol] 13.9 g/dL Normal 11.5-15.5 [facility] Comment on above: Order Comment: Speci men Type: BLOOD SPECIMENOrdering Facility: [facility] Address: [address] [place] [address] Performed By: #### 5 7021-8 ####[facility] BAYNCLIA [id number] [place] [address] [place] Immature granulocytes (Bld) [#/Vol] 0.03 10*3/uL Normal <0.10 [facility] Comment on above: Order Comment: Speci men Type: BLOOD SPECIMENOrdering Facility: [facility] Address: [address] [place] [address] Performed By: #### 5 7021-8 ####[facility] MICAHBrunaNCMILVIA [id number] [place] [address] [place] Immature granulocytes/100 WBC (Bld) 0.3 % Normal [facility] Comment on above: Order Comment: Speci men Type: BLOOD SPECIMENOrdering Facility: [facility] Address: [address] [place] [address] Performed By: #### 5 7021-8 ####[facility] [id number] [place] [address] [place] Lymphocytes (Bld) [#/Vol] 2.44 10*3/uL Normal 1.00-4.00 [facility] Comment on above: Order Comment: Speci men Type: BLOOD SPECIMENOrdering Facility: [facility] Address: [address] [place] [address] Performed By: #### 5 7021-8 ####[facility] [id number] [place] [address] [place] Lymphocytes/100 WBC (Bld) 24.0 % Normal [facility] Comment on above: Order Comment: Speci men Type: BLOOD SPECIMENOrdering Facility: [facility] Address: [address] [place] [address] Performed By: #### 5 7021-8 ####[facility] [id number] [place] [address] [place] MCH (RBC) [Entitic mass] 28.2 pg Normal 26.0-34.0 [facility] Comment on above: Order Comment: Speci men Type: BLOOD SPECIMENOrdering Facility: [facility] Address: [address] [place] [address] Performed By: #### 5 7021-8 ####[facility] POINTBrunaNCLIA [id number] [place] [address] [place] MCHC (RBC) [Mass/Vol] 33.3 g/dL Normal 30.5-36.0 [facility] Comment on above: Order Comment: Speci men Type: BLOOD SPECIMENOrdering Facility: [facility] Address: [address] [place] [address] Performed By: #### 5 7021-8 ####[facility] BAYNCA [id number] [place] [address] [place] MCV (RBC) [Entitic vol] 84.8 fL Normal 80.0-100.0 [facility] Comment on above: Order Comment: Speci men Type: BLOOD SPECIMENOrdering Facility: [facility] Address: [address] [place] [address] Performed By: #### 5 7021-8 ####[facility] [id number] [place] [address] [place] Monocytes (Bld) [#/Vol] 0.59 10*3/uL Normal <0.87 [facility] Comment on above: Order Comment: Speci men Type: BLOOD SPECIMENOrdering Facility: [facility] Address: [address] [place] [address] Performed By: #### 5 7021-8 ####[facility] [id number] [address] [place] Monocytes/100 WBC (Bld) 5.8 % Normal [facility] Comment on above: Order Comment: Speci men Type: BLOOD SPECIMENOrdering Facility: [facility] Address: [address] [place] [address] Performed By: #### 5 7021-8 ####[facility] [id number] [place] [address] [place] Neutrophils (Bld) [#/Vol] 6.81 10*3/uL Normal 1.45-7.50 [facility] Comment on above: Order Comment: Speci men Type: BLOOD SPECIMENOrdering Facility: [facility] Address: [address] [place] [address] Performed By: #### 5 7021-8 ####[facility] [id number] [place] [address] [place] Neutrophils/100 WBC (Bld) 66.8 % Normal [facility] Comment on above: Order Comment: Speci men Type: BLOOD SPECIMENOrdering Facility: [facility] Address: [address] [place] [address] Performed By: #### 5 7021-8 ####[facility] [id number] [place] [address] [place] Nucleated RBC (Bld) [#/Vol] 10*3/uL Normal <0.01 [facility] Comment on above: Order Comment: Speci men Type: BLOOD SPECIMENOrdering Facility: [facility] Address: [address] [place] [address] Performed By: #### 5 7021-8 ####[facility] [id number] [place] [address] [place] Nucleated RBC/100 WBC (Bld) [Ratio] 0.0 /100 WBC Normal [facility] Comment on above: Order Comment: Speci men Type: BLOOD SPECIMENOrdering Facility: [facility] Address: [address] [place] [address] Performed By: #### 5 7021-8 ####[facility] [id number] [place] [address] [place] Platelet mean volume (Bld) [Entitic vol] 8.5 fL Low 9.0-12.7 [facility] Comment on above: Order Comment: Speci men Type: BLOOD SPECIMENOrdering Facility: [facility] Address: [address] [place] [address] Performed By: #### 5 7021-8 ####[facility] [id number] [place] [address] [place] Platelets (Bld) [#/Vol] 304 10*3/uL Normal 150-400 [facility] Comment on above: Order Comment: Speci men Type: BLOOD SPECIMENOrdering Facility: [facility] Address: [address] [place] [address] Performed By: #### 5 7021-8 ####[facility] [id number] [place] [address] [place] RBC (Bld) [#/Vol] 4.93 10*6/uL Normal 3.90-5.20 [facility] Comment on above: Order Comment: Speci men Type: BLOOD SPECIMENOrdering Facility: [facility] Address: [address] [place] [address] Performed By: #### 5 7021-8 ####[facility] [id number] [place] [address] [place] WBC (Bld) [#/Vol] 10.18 10*3/uL Normal 3.70-11.00 [facility] Comment on above: Order Comment: Speci men Type: BLOOD SPECIMENOrdering Facility: [facility] Address: [address] [place] [address] Performed By: #### 5 7021-8 ####[facility] [id number] [place] [address] [place] HBV surface Ag Ser Qlon 12-2 HBV surface Ag Ql (S) Negative Normal Negative [facility] Comment on above: Order Comment: Speci men Type: BLOOD SPECIMENOrdering Facility: [facility] Address: [address] [place] [address] Performed By: #### 5 195-3, 76071-4, 49308-8 ####[facility] LAB[facility] [id number] [place] [address] [place] HCV Ab Ser Qlon 02-24-2024 HCV Ab Ql (S) Negative Normal Negative [facility] Comment on above: Order Comment: Speci men Type: BLOOD SPECIMENOrdering Facility: [facility] Address: [address] [place] [address] Result Comment: The result suggests no evidence of active infection with Hepatitis C virus. Should recent infection be suspected, repeat testing may be considered 4-6 weeks after this draw. Performed By: #### 1 6128-1 ####[facility] LABCLIA [id number] [place] [address] [place] HIV 1+2 Ab IA Qlon HIV 1 and 2 Ab IA.rapid Nom (S/P/Bld) Normal [facility] Comment on above: Order Comment: Speci men Type: BLOOD SPECIMENOrdering Facility: [facility] Address: [address] [place] [address] Result Comment: Test not indicated. Performed By: #### 5 195-3, 53778-4, 86092-8 ####[facility] LABCL[facility] [id number] [place] [address] [place] HIV 1+2 Ab+HIV1 p24 Ag IA Ql Non-Reactive Normal Nonreactive [facility] Comment on above: Order Comment: Speci men Type: BLOOD SPECIMENOrdering Facility: [facility] Address: [address] [place] [address] Performed By: #### 5 195-3, 06795-5, 88418-2 ####[facility] LABCLIA [id number] [place] [address] [place] HIV immunoassay testing algorithm interpretation (S/P/Bld) [Interp] Normal [facility] Comment on above: Order Comment: Speci men Type: BLOOD SPECIMENOrdering Facility: [facility] Address: [address] [place] [address] Result Comment: No e vidence of HIV-1 or HIV-2 infection. Should recent infection be suspected, repeat testing may be considered 2-3 weeks after this draw. [place] Rev. Code 3701.243(E): This information has been [...] or diagnoses. Performed By: #### 5 195-3, 45532-9, 94753-8 ####[facility] LABCLIA [id number] [place] [address] [place] HbA1c (Bld)on 02-24-2024 Average glucose Estimated from glycated hemoglobin (Bld) [Mass/Vol] 94 mg/dL Normal [facility] Comment on above: Order Comment: Speci men Type: SWAB Ordering Facility: [facility] Address: [address] [place] [address] Result Comment: eAG: (Estimated average glucose) is a calculated value from HgbA1c and is office services representative of the average blood glucose level in the last 2-3 month period. Performed By: #### C VTV, BVAMP #### [facility] CLIA [id number] [address] [place] [address] [place] HbA1c (Bld) [Mass fraction] 4.9 % Normal 4.3-5.6 [facility] Comment on above: Order Comment: Speci men Type: SWAB Ordering Facility: [facility] Address: [address] [place] [address] Result Comment: [place] Diabetes Association guidelines indicate that patients with HgbA1c in the range 5.7-6.4% are at increased risk for development of diabetes, and intervention by lifestyle modification may be beneficial. HgbA1c greater or equal to 6.5% is considered diagnostic of diabetes. Performed By: #### C VTV, BVAMP #### [facility] CLIA [id number] [address] [place] [address] [place] RUBELLA IGG ANTIBODYon 02-23 RUBELLA IGG AB, QUAL Positive Normal Positive [facility] Comment on above: Order Comment: Speci men Type: BLOOD SPECIMENOrdering Facility: [facility] Address: [address] [place] [address] Result Comment: The result suggests recent or past exposure to Rubella virus or history of Rubella vaccination. Positive result may also be seen due to presence of passively-transferred antibodies. Please correlate with patient's history. Performed By: #### R UBIGG ####[facility] LABCL[facility] [id number] [place] [address] [place] Reagin and Treponema pallidu m IgG and IgM [Interp]on 02-24-2024 T. pallidum IgG+IgM IA Ql (S) Non-Reactive Normal Nonreactive [facility] Comment on above: Order Comment: [facility] Type: BLOOD SPECIMENOrdering Facility: [facility] Address: [address] [place] [address] Performed By: #### 5 195-3, 23956-6, 34680-0 ####[facility] LABCLIA [id number] [place] [address] [place] Reagin+T pallidum IgG+IgM Se rPl-Impon 02-24-2024 Reagin and Treponema pallidum IgG and IgM [Interp] Cannot exclude recent Treponemal infection if specimen collected within 7-10 days after appearance of suspect lesions or 2-3 weeks after an exposure. Clinical correlation is required. Normal [facility] Comment on above: Order Comment: Speci men Type: BLOOD SPECIMENOrdering Facility: [facility] Address: [address] [place] [address] Performed By: #### 5 195-3, 33641-9, 33251-2 ####[facility] LABCLIA [id number] [place] [address] [place] TYPE + SCREEN PRENATALon ABO O Normal [facility] Comment on above: Order Comment: Speci men Type: SWAB Ordering Facility: [facility] Address: [address] [place] [address] Performed By: #### C VTV, BVAMP #### [facility] CLIA [id number] [address] [place] [address] [place] Rh Nom (Bld) Positive Normal [facility] Comment on above: Order Comment: Speci men Type: SWAB Ordering [facility]: [facility] Address: [address] [place] [address] Performed By: #### C VTV, BVAMP #### [facility] CLIA [id number] [address] [place] [address] [place] TYPE AND SCREEN EXPIRATION 02/27/2024 23:59 Normal [facility] Comment on above: Order Comment: Speci men Type: SWAB Ordering Facility: [facility] Address: [address] [place] [address] Performed By: #### C VTV, BVAMP #### [facility] CLIA [id number] [address] [place] [address] [place] Urgent Care Visit Reporton 1 04-26-2023 Urgent Care Visit Report [facility] [address], [address] [place] [address] OFFICE VISIT Date of Service: 02/24/24 MR#: [id number] Acct: [id number] Name: AMIRAH WOODARD Rep #: [id number] 40 : 2005 Provider: CATRACHO Jacobo Age/Sex: 18/F Location: [facility] Status: Signed Intake Vital Signs 11/14/23 09:57 Height 5 ft 3 in Intake Visit Reasons: [facility] Chief Complaint: Preemployment physical Accompanied by: Self Allergies No Known Allergies Allergy (Verified 02/24/24 12:06) Medications ???Medication ???Instructions ???Recorded ???Confirmed ???Type Lactobacillus 25 billion cap PO 10/04/23 11/15/23 History cell-Bifido 25 billion zzlf-PCS-hbqug capsule albuterol sulfate 90 mcg/actuation inhalation 10/04/23 [...] Ch[place] Gomez Signature: Date (if applicable) CC: [place] Rodrick 02-23-2024 MATTI Telephone (InstamourOBA) AMIRAH WOODARD ([id number]) 3 F Date Time Provider Department 02/23/24 [...] Date Reviewed: 02/21/2024 Reviewed by: Nilda Stiles APRN.ENVIRONMENTAL SCIENCE INSTRUCTOR - Fully Assessed Reason for Visit: PRAF [...] Status:Closed by PAULINE AU on 02/23/24 Normal [facility] BACTERIAL VAGINOSIS NAATon 1 2- Lactobacillus crispatus+gasseri+imelda enii + Gardnerella vaginalis + Atopobium vaginae rRNA MEG+probe Ql (Vag fld) Not detected Normal Not detected [facility] Comment on above: Order Comment: Speci men Type: SWABOrdering Facility: [facility] Address: [address] [place] [address] Performed By: #### Cherelle VAMP, 77915-1 ####[facility] LABCLIA [id number] [place] [address] [place] Bacteria Ur Culton [...] technique or straight catheterization for???urine???collecti on. Normal [facility] Comment on above: Performed By: #### 6 30-4 ####[facility] LABCLIA [id number] [place] [address] [place] C. trachomatis+N. gonorrhoea e DNA MEG+probe Ql (Unsp spec)on 02-21-2024 C. trachomatis rRNA MEG+probe Ql (Unsp spec) Not detected Normal Not detected [facility] Comment on above: Order Comment: Speci men Type: SWABOrdering Facility: [facility] Address: [address] [place] [address] Performed By: #### Cherelle VAMP, 97552-0 ####[facility]CLIA [id number] [place] [address] [place] N. gonorrhoeae rRNA MEG+probe Ql (Unsp spec) Not detected Normal Not detected [facility] Comment on above: Order Comment: Speci men Type: SWABOrdering Facility: [facility] Address: [address] [place] [address] Performed By: #### Cherelle VAMP, 64379-0 ####[facility] [id number] [place] [address] [place] FRANCO/TRICHOMONAS NAATon 1 2-17-2024 C. glabrata RNA MEG+probe Ql (Vag fld) Not detected Normal Not detected [facility] Comment on above: Order Comment: Speci men Type: SWAB Ordering [facility]: [facility] Address: [address] [place] [address] Performed By: #### C VTV, BVAMP #### [facility] CLIA [id number] [address] [place] [address] [place] Franco sp DNA MEG+probe Ql (Vag fld) Not detected Normal Not detected [facility] Comment on above: Order Comment: Speci men Type: SWAB Ordering [facility]: [facility] Address: [address] [place] [address] Result Comment: The Franco species group target includes C. albicans, C. tropicalis, C. parapsilosis, and C. dubliniensis. Performed By: #### C VTV, BVAMP #### [facility] CLIA [id number] [address] [place] [address] [place] T. vaginalis DNA MEG+probe Ql (Unsp spec) Not detected Normal Not detected [facility] Comment on above: Order Comment: Speci men Type: SWAB [facility]ing [facility] Address: [address] [place] [address] Performed By: #### C VTV, BVAMP #### [facility] CLIA [id number] [address] [place] [address] [place] CNCOon 02-21-2024 CNCO Letter Text Normal [facility] POC COUPLES THERAPIST ULTRASOUNDon 02-21-20 24 Indication Confirmation of intrauterine . Confirmation of [...] Read By: Nilda Stiles CNP MATERNAL MEDICINE [facility] Radiology Study observation (narrative) [facility] CNCOon 02-01-2024 CNCO Letter Text Normal [facility] CNOVon 01-30-2024 CNOV Office Visit (OBGYWM ) AMIRAH WOODARD ([id number]) 3 F Date Time Provider Department 01/30/24 2:15 PM NILDA STILES OBGYWM During your visit today, we recorded the following information about you: Blood pressure Weight Last Period 116/72 85 kg 01/03/24 Nilda Stiles APRN.CNP 01/30/2024 2:33 PM Signed Amirah Clifford Vance is a 18 year old female who presents for problem visit testing, reported +hpt 01/27/2024, 01/03/2024. HPI: positive test- some cramping no bleeding LMP 01/03/24 OB History T0 L0 SAB0 IAB0 Ectopic0 Multiple0 Live Births0 [employer] History LMP: 12/09/2023 (Exact Date), Having periods Age at Menarche: Age at First : Age at Menopause: [employer] History Comments: Sexual Activity: Yes; Male Contraception: [...] (FLONASE) 50 mcg/actuation nasal spray Use 1 Seligman in each nostril once daily. loratadine (CLARITIN) [...] result positive [Z32.01] Order(s):UA DIP,URINE HCG (POC) [[id number]] Order #: [id number] #:[id number] Prescriptions as of 01/30/2024 - vit no.124/iron/folic [...] (FLONASE) 50 mcg/actuation nasal spray Use 1 Seligman in each nostril once daily. - loratadine [...] 07/13/2021 Disposition: Return for schedule for 02/20 @815 NOB. Follow (more content not included)... Normal [facility] UA DIP,URINE HCG (POC)on Beta HCG ( test) Ql (U) Positive Abnormal Negative [facility] Comment on above: Location:[facility], [address], [place], [address] Interpretation and review of laboratory results Abnormal [facility] Driller Portable (POCT) Internal QC OK [facility] Location:[facility], [address], [place], [address] [facility] CNPN Telephone (OBGYWM) AMIRAH WOODARD ([id number]) 3 F Date Time Provider Department 12/15/23 NILDA STILES OBFAVIO During your visit today, we recorded the following information about you: Nilda Stiles APRN.CNP 12/15/2023 8:17 AM Signed Mycoplasma positive. Moxifloxacin x 7 days, then Doxy to follow x 7 days. Partner should be treated. SEAN Guillen Trisha, RN 12/15/2023 9:24 AM Signed Patient notified. [...] NILDA STILES Pharmacy Information Pharmacy Address Telephone [facility] [address] [place] [address] Allergies As of Date: 12/15/2023 Noted [...] (FLONASE) 50 mcg/actuation nasal spray Use 1 Seligman in each nostril once daily. - loratadine [...] Status:Closed by VIVIAN ADAMS on 12/15/23 Normal [facility] BACTERIAL VAGINOSIS NAATon 1 Lactobacillus crispatus+gasseri+imelda enii + Gardnerella vaginalis + Atopobium vaginae rRNA MEG+probe Ql (Vag fld) Negative Normal Negative for bacterial vaginosis [facility] Comment on above: Order Comment: Speci men Type: SWAB Ordering Facility: [facility] Address: [address] [place] [address] Performed By: #### C VTV, BVAMP #### [facility] CLIA [id number] [address] [place] [address] [place] FRANCO/TRICHOMONAS NAATon 1 C. glabrata RNA MEG+probe Ql (Vag fld) Negative Normal Negative for Franco glabrata [facility] Comment on above: Order Comment: Speci men Type: SWAB Ordering Facility: [facility] Address: [address] [place] [address] Performed By: #### C VTV, BVAMP #### [facility] CLIA [id number] [address] [place] [address] [place] Franco sp DNA MEG+probe Ql (Vag fld) Negative Normal Negative for Franco species [facility] Comment on above: Order Comment: Speci men Type: SWAB [facility]ing [facility] Address: [address] [place] [address] Performed By: #### C VTV, BVAMP #### [facility] CLIA [id number] [address] [place] [address] [place] T. vaginalis DNA MEG+probe Ql (Unsp spec) Negative Normal Negative for Trichomonas vaginalis by amplification [facility] Comment on above: Order Comment: Speci men Type: SWAB [facility]ing [facility] Address: [address] [place] [address] Performed By: #### C VTV, BVAMP #### [facility] CLIA [id number] [address] [place] [address] [place] CNOVon 12-12-2023 CNOV Office Visit (OBGYWM ) AMIRAH WOODARD ([id number]) 3 F Date Time Provider Department 12/12/23 3:45 PM NILDA STILES OBGYWM During your visit today, we recorded the following information about you: Blood pressure Weight Last Period 122/66 84.8 kg 12/09/23 Nilda Stiles APRN.ENVIRONMENTAL SCIENCE INSTRUCTOR 12/12/2023 4:43 PM Signed Patient declined medical record consultant. Amirah Woodard is a 18 year old [...] L0 SAB0 IAB0 Ectopic0 Multiple0 Live Births0 [employer] History LMP: 10/08/2023 (Exact Date), Having periods Age at Menarche: Age at First : Age at Menopause: [employer] History Comments: Sexual Activity: Yes; Male Contraception: [...] (FLONASE) 50 mcg/actuation nasal spray Use 1 Seligman in each nostril once daily. loratadine (CLARITIN) [...] discussed with the Patient or Patient's Authorized Physical Science Professor. As applicable, any other physician, advance practice provider, medical student, or other health professional student that will be observing or involved in the sensitive examination for educational or training purposes was discussed with the Patient or Authorized Physical Science Professor. The Patient or Authorized Physical Science Professor has agreed to proceed with the sensitive examination. (Sensitive examination includes inspection and/or palpation of the breasts, pelvis, prostate and anorectal regions). EXAM: LMP 10/08/2023 GENERAL: pleasant, female in no apparent distress HEENT: Normocephalic, atraumatic, mucus membranes moist, and no lesions CHEST: Normal inspiratory effort PELVIC: external genitalia normal, normal Bartholin's glands, urethra, Cabool's glands, no vulvar lesions, no cervical lesions, [...] notify patient of test results. Nilda Stiles APRN.ENVIRONMENTAL SCIENCE INSTRUCTOR Medical Decision Making: Problems: Moderate: New problem with uncertain prognosis Data: U (more content not included)... Normal [facility] T3Free SerPl-mCncon 12-12-19 24 Free T3 [Mass/Vol] 3.2 pg/mL Normal 2.3-4.[address] [facility] Comment on above: Order Comment: Speci men Type: BLOOD SPECIMENOrdering Facility: [facility] Address: [address] [place] [address] Performed By: #### 3 051-0, 7, 3 ####[facility] LABCLIA [id number] [place] [address] [place] T4 Free SerPl-mCncon 024 Free T4 [Mass/Vol] 1.2 ng/dL Normal 0.9-1.[address] [facility] Comment on above: Order Comment: Speci men Type: BLOOD SPECIMENOrdering Facility: [facility] Address: [address] [place] [address] Performed By: #### 3 051-0, 3023-7, 3 ####[facility] LABCLIA [id number] [place] [address] [place] THYROID PEROXIDASE ANTIBODYo n 12-12-2023 TPO Ab Qn [IU]/mL Normal <5.6 [facility] Comment on above: Order Comment: Speci men Type: BLOOD SPECIMENOrdering Facility: [facility] Address: [address] [place] [address] Result Comment: Thyr oid Peroxidase Antibody test is used as an aid in diagnosis of autoimmune thyroid disease. Clinical correlation is required. Performed By: #### M ICRO ####[facility]IA [id number] [place] [address] [place] TSH SerPl-aCncon 12-12-2023 TSH Qn 1.050 m[IU]/L Normal 0.510-4.300 [facility] Comment on above: Order Comment: Speci men Type: BLOOD SPECIMENOrdering Facility: [facility] Address: [address] [place] [address] Result Comment: If t he patient is , TSH reference range varies by gestational period: First Trimester (weeks 9-12): 0.180-2.990 mIU/L Second Trimester: 0.110-3.980 mIU/L Third Trimester: 0.480-4.710 mIU/L Dayo Wagner, et al. A Practical Approach for the Verifications and Determination of Site- and Trimester-Specific Reference Intervals for Thyroid Function tests in . Thyroid, 2019:29:3:412-420. Edmar E, et al. 2017 Guidelines of the [place] Thyroid Association for the Diagnosis and Management of Thyroid Disease during and the . Thyroid, 2017:27:3:315-389. Reference ranges were not locally established for this patient's age group. The normal values are based on the following source: Yarelis W, Chante V. Reference Ranges for Adults and Children: Pre-analytical Considerations. [facility] Performed By: #### 3 051-0, 3024-7, 3016-3 ####[facility]CLIA [id number] [place] [address] [place] UROGENITAL UREAPLASMA AND MY COPLASMA SPECIES BY PCR, FOR GENITAL, RECTAL, URINE SAMPLESon 12-12-2023 M GENITALIUM PCR Not detected Normal [facility] Comment on above: Order Comment: Speci men Type: SWABOrdering Facility: [facility] Address: [address] [place] [address] Result Comment: INTE RPRETIVE INFORMATION: Urogenital Ureaplasma and Mycoplasma Species by PCR A negative result does not rule out the presence of PCR inhibitors in the patient specimen or test-specific nucleic acid in concentrations below the level of detection by this test. This test was developed and its performance characteristics determined by [employer]. It has not been cleared or approved by the US Food and Drug Administration. This test was performed in a CLIA certified laboratory and is intended for clinical purposes. Performed By: [facility] [address] [place] [address] Applied Behavior Specialist: Jonathan Guzman MD, PhD [facility] Number: [id number] Performed By: #### U RMPCR ####[facility]IES[facility] [id number] [place] [address] MYCOPLAS HOMINIS PCR Not detected Normal [facility] Comment on above: Order Comment: Speci men Type: SWABOrdering Facility: [facility] Address: [address] [place] [address] Performed By: #### U RMPCR ####[facility] [id number] [place] [address] UR PARVUM PCR Detected Abnormal [facility] Comment on above: Order Comment: Speci men Type: SWABOrdering Facility: [facility] Address: [address] [place] [address] Performed By: #### U RMPCR ####[facility]CL[facility] [id number] [place] [address] UR UREALYTICUM PCR Not detected Normal [facility] Comment on above: Order Comment: Speci men Type: SWABOrdering Facility: [facility] Address: [address] [place] [address] Performed By: #### U RMPCR ####[facility]CL[facility] [id number] [place] [address] UR/MYCO SOURCE Genital Normal [facility] Comment on above: Order Comment: Speci men Type: SWABOrdering Facility: [facility] Address: [address] [place] [address] Performed By: #### U RMPCR ####[facility]IES[facility] [id number] [place] [address] Ankle min 3 Viewson 11-15-19 Ankle min 3 Views [facility] Radiology [address] [place] [address] Ankle min 3 Views MR#: [id number] Acct: [id number] Name: AMIRAH WOODARD Rep #: [id number] : 2005 F 18 From: Bruno Méndez MD PCP: Dr. Que Chavez MD Status: DEP AMB Study: Ankle min 3 Views Date of Exam: 11/15/23 Exam# [id number] Ordering Dr: Antwon Miranda MD [id number] STUDY: X-RAY - LEFT ANKLE REASON FOR [...] 15:51 EDT Reading Location ID and State: [address] [place] [address] , Service support , CC: Dr. Que Chavez MD; Dr. Antwon Miranda MD [employer] Former: Signed Normal [facility] Orthopedic Visit Reporton Orthopedic Visit Report [facility] [address] [place] [address] OFFICE VISIT Date of Service: 11/15/23 MR#: [id number] Acct: [id number] Name: AMIRAH WOODARD Rep #: [id number] : 2005 Provider: Dr. Antwon sebastian MD Age/Sex: 18/F Location[place] [facility] Status: Signed Intake Vital Signs 11/14/23 09:57 Height 5 ft 3 in Intake Visit Reasons: LEFT LEG Chief Complaint: left ankle Accompanied by: Self Is patient in pain?: No Allergies No Known Allergies Allergy (Verified 11/15/23 15:06) Medications ???Medication ???Instructions ???Recorded ???Confirmed ???Type Lactobacillus 25 billion cap PO 10/04/23 11/15/23 History cell-Bifido 25 billion lcip-RUW-tvjvl capsule albuterol sulfate 90 mcg/actuation inhalation 10/04/23 [...] Saphenous Nerve: I 11/15/23 1528 Date Antwon Miranda MD Cosigner Signature: Date (if applicable) CC: Normal [facility] CNOVon 10-31-2023 CNOV Office Visit (PEDSWS ) AMIRAH WOODARD ([id number]) [birth year] F Date Time Provider Department 10/31/23 [...] button - completed 7 day course [employer], [employer]AVING [employer]TER advised in office visit with them Allergy/Immunology [...] (FLONASE) 50 mcg/actuation nasal spray Use 1 Seligman in each nostril once daily. loratadine (CLARITIN) [...] satisfactory Screening tools reviewed and discussed with patient/[id number]-AOF-7 and Social Determinants of Health. Please see Patient Entered Data. SDOH: Food Insecurity: No F (more content not included)... Normal [facility] Ankle min 3 Viewson 10-18-19 Ankle min 3 Views [facility]iology [address] [place] [address] Ankle min 3 Views MR#: [id number] Acct: [id number] Name: AMIRAH WOODARD Rep #: [id number] : 2005 F 18 From: Feliciano narayan MD PCP: Dr. Que Chavez MD Status: DEP AMB Study: Ankle min 3 Views Date of Exam: 10/18/23 Exam# [id number] Ordering Dr: Antwon Miranda MD [id number] INDICATION: fu EXAMINATION/TECHNIQUE: X-RAY - LEFT XR [...] Que Chavez MD; Dr. Antwon Miranda MD [place] [employer] Former: Signed Normal [facility] Orthopedic Visit Reporton Orthopedic Visit Report [facility] [address] [place] [address] [address] [place] [address] OFFICE VISIT Date of Service: 10/18/23 MR#: [id number] Acct: [id number] Name: AMIRAH WOODARD Rep #: [id number] : 2005 Provider: Dr. Antwon sebastian MD Age/Sex: 18/F Location[place] [facility] Status: Signed Intake Vital Signs 10/03/23 08:06 Height 5 ft 3 in Intake Visit Reasons: LEFT LEG Accompanied by: Mother Is patient in pain?: No Allergies No Known Allergies Allergy (Verified 10/18/23 10:05) Medications ???Medication ???Instructions ???Recorded ???Confirmed ???Type Lactobacillus 25 billion cap PO 10/04/23 10/18/23 History cell-Bifido 25 billion jcte-NIV-egfdp capsule albuterol sulfate 90 mcg/actuation inhalation 10/04/23 [...] Cosigner Signature: Date (if applicable) CC: Normal [facility] STREP A MOLECULAR (POC)on Procedural Control Valid [facility] Strep A (POCT) Negative Negative [facility] BACTERIAL VAGINOSIS NAATon 0 07-12-2023 Interpretation and review of laboratory results Abnormal [facility] Lactobacillus crispatus+gasseri+imelda enii + Gardnerella vaginalis + Atopobium vaginae rRNA MEG+probe Ql (Vag fld) Positive Abnormal Negative for bacterial vaginosis [facility] FRANCO/TRICHOMONAS NAATon 0 07-12-2023 C. glabrata RNA MEG+probe Ql (Vag fld) Negative Negative for Franco glabrata [facility] Franco sp DNA MEG+probe Ql (Vag fld) Negative Negative for Franco species [facility] Interpretation and review of laboratory results Normal [facility] T. vaginalis DNA MEG+probe Ql (Unsp spec) Negative Negative for Trichomonas vaginalis by amplification [facility] US Pelvis transvaginalon [facility] BACTERIAL VAGINOSIS NAATon 0 05-04-2023 Lactobacillus crispatus+gasseri+imelda enii + Gardnerella vaginalis + Atopobium vaginae rRNA MEG+probe Ql (Vag fld) Negative Negative for bacterial vaginosis [facility] C. trachomatis+N. gonorrhoea e DNA MEG+probe Ql (Unsp spec)on 05-04-2023 C. trachomatis rRNA MEG+probe Ql (Unsp spec) Negative Negative for Chlamydia trachomatis by amplificaton [facility] N. gonorrhoeae rRNA MEG+probe Ql (Unsp spec) Negative Negative for Neisseria gonorrhoeae by amplification [facility] FRANCO/TRICHOMONAS NAATon 0 05-04-2023 C. glabrata RNA MEG+probe Ql (Vag fld) Negative Negative for Franco glabrata [facility] Franco sp DNA MEG+probe Ql (Vag fld) Negative Negative for Franco species [facility] T. vaginalis DNA MEG+probe Ql (Unsp spec) Negative Negative for Trichomonas vaginalis by amplification [facility] HCG QUAL UR B/Oon 07-15-2022 status Negative neg - pos [facility] Quality Check Yes [facility] Vital Signs Date Time Vital Sign Value Performing Clinician Facility 10-13-2024 01:46-0400 Heart rate 90 /min Dr. Ruiz Vega DO Work Phone: [facility] 10-13-2024 01:46-0400 SaO2% (BldA) [Mass fraction] 97 % Dr. Ruiz Vega DO Work Phone: [facility] 10-12-2024 23:44-0400 Diastolic blood pressure 82 mm[Hg] Dr. Ruiz Vega DO Work Phone: [facility] 10-12-2024 23:44-0400 Systolic blood pressure 122 mm[Hg] Dr. Ruiz Vega DO Work Phone: [facility] 10-12-2024 23:43-0400 Body temperature 97.7 [degF] Dr. Ruiz Vega DO Work Phone: [facility] 10-12-2024 23:43-0400 Respiratory rate 16 /min Dr. Ruiz Vega DO Work Phone: [facility] 10-12-2024 23:35-0400 Body height 162.[address] Ruiz Vega DO Work Phone: [facility] 10-12-2024 23:35-0400 Body mass index (BMI) [Ratio] 38.6 kg/m2 Dr. Ruiz Vega DO Work Phone: [facility] 10-12-2024 23:35-0400 Body weight [address] Ruiz Vega DO Work Phone: [facility] 10-05-2024 16:20-0400 Body mass index (BMI) [Ratio] 37.85 kg/m2 Delfina Watson APRN.CNM Work Phone: [facility] 10-05-2024 16:20-0400 Body weight 103.06 kg Delfina Watson APRN.CNM Work Phone: [facility] 10-05-2024 16:20-0400 Diastolic blood pressure 74 mm[Hg] Delfina Watson APRN.CNM Work Phone: [facility] 10-05-2024 16:20-0400 Systolic blood pressure 110 mm[Hg] Delfina Watson APRN.CNM Work Phone: [facility] 09-25-2024 14:06-0400 Body mass index (BMI) [Ratio] 36.99 kg/m2 Janelle Marin MD Work Phone: [facility] 09-25-2024 14:06-0400 Body weight 100.7 kg Janelle Marin MD Work Phone: [facility] 09-25-2024 14:06-0400 Diastolic blood pressure 70 mm[Hg] Janelle Marin MD Work Phone: [facility] 09-25-2024 14:06-0400 Systolic blood pressure 110 mm[Hg] Janelle Marin MD Work Phone: [facility] 09-18-2024 13:26-0400 Body mass index (BMI) [Ratio] 37.02 kg/m2 Alo Thompson MD Work Phone: [facility] 09-18-2024 13:26-0400 Body weight 100.79 kg Alo Thompson MD Work Phone: [facility] 09-18-2024 13:26-0400 Diastolic blood pressure 72 mm[Hg] Alo Thompson MD Work Phone: [facility] 09-18-2024 13:26-0400 Systolic blood pressure 110 mm[Hg] Alo Thompson MD Work Phone: [facility] 09-12-2024 10:33-0400 Body mass index (BMI) [Ratio] 35.99 kg/m2 Castillo Mckeon MD Work Phone: [facility] 09-12-2024 10:33-0400 Body weight 97.98 kg Castillo Mckeon MD Work Phone: [facility] 09-12-2024 10:33-0400 Diastolic blood pressure 82 mm[Hg] Castillo Mckeon MD Work Phone: [facility] 09-12-2024 10:33-0400 Systolic blood pressure 124 mm[Hg] Castillo Mckeon MD Work Phone: [facility] 09-04-2024 12:22-0400 Body temperature 98 [degF] Dr. Ruiz Vega DO Work Phone: 5(824)479-157825 [place] [address] 09-04-2024 12:22-0400 Diastolic blood pressure 75 mm[Hg] Dr. Ruiz Vega DO Work Phone: 4(874)313-441388 [place] [address] 09-04-2024 12:22-0400 Heart rate 99 /min Dr. Ruiz Veag DO Work Phone: 3(155)482-187125 [place] [address] 09-04-2024 12:22-0400 Respiratory rate 17 /min Dr. Ruiz Vega DO Work Phone: 4(799)996-955488 [place] [address] 09-04-2024 12:22-0400 SaO2% (BldA) [Mass fraction] 94 % Dr. Ruiz Vega DO Work Phone: 1(828)217-520188 [place] [address] 09-04-2024 12:22-0400 Systolic blood pressure 115 mm[Hg] Dr. Ruiz Vega DO Work Phone: 9(699)082-658188 [place] [address] 09-04-2024 10:11-0400 Body height 162.[address] Ruiz Vega DO Work Phone: 8(707)559-936588 [place] [address] 09-04-2024 10:11-0400 Body mass index (BMI) [Ratio] 37.1 kg/m2 Dr. Ruiz Vega DO Work Phone: 9(563)610-009425 [place] [address] 09-04-2024 10:11-0400 Body weight 98.[address] Ruiz Vega DO Work Phone: 5(406)987-668888 [place] [address] 09-04-2024 09:32-0400 Body mass index (BMI) [Ratio] 35.65 kg/m2 Janelle Marin MD Work Phone: [facility] 09-04-2024 09:32-0400 Body weight 97.07 kg Janelle Marin MD Work Phone: [facility] 09-04-2024 09:32-0400 Diastolic blood pressure 76 mm[Hg] Janelle Marin MD Work Phone: [facility] 09-04-2024 09:32-0400 Heart rate 126 /min Janelle Marin MD Work Phone: [facility] 09-04-2024 09:32-0400 SaO2% (BldA) [Mass fraction] 98 % Janelle Marin MD Work Phone: [facility] 09-04-2024 09:32-0400 Systolic blood pressure 128 mm[Hg] Janelle Marin MD Work Phone: [facility] 08-30-2024 14:52-0400 Body mass index (BMI) [Ratio] 36.15 kg/m2 La Plotts CAMPUS RECRUITER.CNM Work Phone: [facility] 08-30-2024 14:52-0400 Body weight 98.43 kg La Plotts CAMPUS RECRUITER.CNM Work Phone: [facility] 08-30-2024 14:52-0400 Diastolic blood pressure 68 mm[Hg] La Plotts CAMPUS RECRUITER.CNM Work Phone: [facility] 08-30-2024 14:52-0400 Systolic blood pressure 120 mm[Hg] La Plotts CAMPUS RECRUITER.CNM Work Phone: [facility] 08-16-2024 14:23-0400 Body mass index (BMI) [Ratio] 35.49 kg/m2 Lindsey Hawander CAMPUS RECRUITER.ENVIRONMENTAL SCIENCE INSTRUCTOR Work Phone: [facility] 08-16-2024 14:23-0400 Body weight 96.62 kg Lindsey Haury CAMPUS RECRUITER.ENVIRONMENTAL SCIENCE INSTRUCTOR Work Phone: [facility] 08-16-2024 14:23-0400 Diastolic blood pressure 62 mm[Hg] Lindsey Haury CAMPUS RECRUITER.ENVIRONMENTAL SCIENCE INSTRUCTOR Work Phone: [facility] 08-16-2024 14:23-0400 Systolic blood pressure 112 mm[Hg] Lindsey Haury CAMPUS RECRUITER.ENVIRONMENTAL SCIENCE INSTRUCTOR Work Phone: [facility] 08-13-2024 09:18-0400 Body height 165 cm Ruiz Vega DO Work Phone: [facility] 08-13-2024 09:18-0400 Body mass index (BMI) [Ratio] 35.15 kg/m2 Ruiz Vega DO Work Phone: [facility] 08-13-2024 09:18-0400 Body temperature 96.4 [degF] Ruiz Vega DO Work Phone: [facility] 08-13-2024 09:18-0400 Body weight 95.71 kg Ruiz Vega DO Work Phone: [facility] 08-13-2024 09:18-0400 Diastolic blood pressure 60 mm[Hg] Ruiz Vega DO Work Phone: [facility] 08-13-2024 09:18-0400 Heart rate 88 /min Ruiz Vega DO Work Phone: [facility] 08-13-2024 09:18-0400 Respiratory rate 16 /min Ruiz Vega DO Work Phone: [facility] 08-13-2024 09:18-0400 Systolic blood pressure 90 mm[Hg] Ruiz Vega DO Work Phone: [facility] 08-01-2024 09:33-0400 Body mass index (BMI) [Ratio] 36.39 kg/m2 Castillo Mckeon MD Work Phone: [facility] 08-01-2024 09:33-0400 Body weight 96.16 kg Castillo Mckeon MD Work Phone: [facility] 08-01-2024 09:33-0400 Diastolic blood pressure 78 mm[Hg] Castillo Mckeon MD Work Phone: [facility] 08-01-2024 09:33-0400 Systolic blood pressure 128 mm[Hg] Castillo Mckeon MD Work Phone: [facility] 07-20-2024 08:32-0400 Body mass index (BMI) [Ratio] 35.36 kg/m2 Lindsey Moreno APRN.ENVIRONMENTAL SCIENCE INSTRUCTOR Work Phone: [facility] 07-20-2024 08:32-0400 Body weight 93.44 kg Lindsey Haury CAMPUS RECRUITER.ENVIRONMENTAL SCIENCE INSTRUCTOR Work Phone: [facility] 07-20-2024 08:32-0400 Diastolic blood pressure 64 mm[Hg] Lindsey Moreno CAMPUS RECRUITER.ENVIRONMENTAL SCIENCE INSTRUCTOR Work Phone: [facility] 07-20-2024 08:32-0400 Systolic blood pressure 118 mm[Hg] Lindsey Moreno CAMPUS RECRUITER.ENVIRONMENTAL SCIENCE INSTRUCTOR Work Phone: [facility] 06-21-2024 13:04-0400 Body mass index (BMI) [Ratio] 34.67 kg/m2 La Plotts CAMPUS RECRUITER.CNM Work Phone: [facility] 06-21-2024 13:04-0400 Body weight 91.63 kg La Plotts CAMPUS RECRUITER.CNM Work Phone: [facility] 06-21-2024 13:04-0400 Diastolic blood pressure 62 mm[Hg] La Plotts CAMPUS RECRUITER.CNM Work Phone: [facility] 06-21-2024 13:04-0400 Systolic blood pressure 114 mm[Hg] La Plotts CAMPUS RECRUITER.CNM Work Phone: [facility] 06-19-2024 14:38-0400 Body mass index (BMI) [Ratio] 35.02 kg/m2 Janelle Marin MD Work Phone: [facility] 06-19-2024 14:38-0400 Body weight 92.53 kg Janelle Marin MD Work Phone: [facility] 06-19-2024 14:38-0400 Diastolic blood pressure 60 mm[Hg] Janelle Marin MD Work Phone: [facility] 06-19-2024 14:38-0400 Systolic blood pressure 120 mm[Hg] Janelle Marin MD Work Phone: [facility] 06-06-2024 13:05-0400 Body mass index (BMI) [Ratio] 34.67 kg/m2 La Plotts CAMPUS RECRUITER.CNM Work Phone: [facility] 06-06-2024 13:05-0400 Body weight 91.63 kg La Plotvida CAMPUS RECRUITER.CNM Work Phone: [facility] 06-06-2024 13:05-0400 Diastolic blood pressure 66 mm[Hg] La Plotvida CAMPUS RECRUITER.CNM Work Phone: [facility] 06-06-2024 13:05-0400 Systolic blood pressure 114 mm[Hg] La Del Castillo CAMPUS RECRUITER.CNM Work Phone: [facility] 05-25-2024 15:18-0400 Body mass index (BMI) [Ratio] 34.16 kg/m2 Kia Lucero MD Work Phone: [facility] 05-25-2024 15:18-0400 Body weight 90.27 kg Kia Lucero MD Work Phone: [facility] 05-25-2024 15:18-0400 Diastolic blood pressure 70 mm[Hg] Kia Lucero MD Work Phone: [facility] 05-25-2024 15:18-0400 Systolic blood pressure 114 mm[Hg] Kia Lucero MD Work Phone: [facility] 04-27-2024 13:06-0500 Body mass index (BMI) [Ratio] 33.81 kg/m2 Delfina Watson CAMPUS RECRUITER.CNM Work Phone: [facility] 04-27-2024 13:06-0500 Body weight 89.36 kg Delfina Watson CAMPUS RECRUITER.CNM Work Phone: [facility] 04-27-2024 13:06-0500 Diastolic blood pressure 68 mm[Hg] Delfina Watson CAMPUS RECRUITER.CNM Work Phone: [facility] 04-27-2024 13:06-0500 Systolic blood pressure 116 mm[Hg] Delfina Watson CAMPUS RECRUITER.CNM Work Phone: [facility] 04-03-2024 16:15-0500 Body mass index (BMI) [Ratio] 33.3 kg/m2 Delfina Watson CAMPUS RECRUITER.CNM Work Phone: [facility] 04-03-2024 16:15-0500 Body weight 88 kg Delfina Watson CAMPUS RECRUITER.CNM Work Phone: [facility] 04-03-2024 16:15-0500 Diastolic blood pressure 60 mm[Hg] Delfina Watson CAMPUS RECRUITER.CNM Work Phone: [facility] 04-03-2024 16:15-0500 Systolic blood pressure 104 mm[Hg] Delfina Watson CAMPUS RECRUITER.CNM Work Phone: [facility] 03-28-2024 09:18-0500 Body mass index (BMI) [Ratio] 33.13 kg/m2 Duncan Munguia MD Work Phone: [facility] 03-28-2024 09:18-0500 Body weight 87.54 kg Duncan Munguia MD Work Phone: [facility] 03-28-2024 09:18-0500 Diastolic blood pressure 70 mm[Hg] Duncan Munguia MD Work Phone: [facility] 03-28-2024 09:18-0500 Systolic blood pressure 120 mm[Hg] Duncan Munguia MD Work Phone: [facility] 03-19-2024 13:50-0500 Body mass index (BMI) [Ratio] 33.15 kg/m2 Josiane Luzader CAMPUS RECRUITER.ENVIRONMENTAL SCIENCE INSTRUCTOR Work Phone: [facility] 03-19-2024 13:50-0500 Body temperature 98.2 [degF] Josiane Luzader CAMPUS RECRUITER.ENVIRONMENTAL SCIENCE INSTRUCTOR Work Phone: [facility] 03-19-2024 13:50-0500 Body weight 87.6 kg Josiane Luzader CAMPUS RECRUITER.ENVIRONMENTAL SCIENCE INSTRUCTOR Work Phone: [facility] 03-19-2024 13:50-0500 Heart rate 84 /min Josiane Luzader CAMPUS RECRUITER.ENVIRONMENTAL SCIENCE INSTRUCTOR Work Phone: [facility] 03-19-2024 13:50-0500 Respiratory rate 16 /min Josiane Luzader CAMPUS RECRUITER.ENVIRONMENTAL SCIENCE INSTRUCTOR Work Phone: [facility] 03-13-2024 11:57-0500 Body mass index (BMI) [Ratio] 32.96 kg/m2 Roberto Clutter PA-C Work Phone: [facility] 03-13-2024 11:57-0500 Body temperature 97.59 [degF] Roberto Clutter PA-C Work Phone: [facility] 03-13-2024 11:57-0500 Body weight 87.1 kg Roberto Clutter PA-C Work Phone: [facility] 03-13-2024 11:57-0500 Diastolic blood pressure 72 mm[Hg] Roberto Clutter PA-C Work Phone: [facility] 03-13-2024 11:57-0500 Heart rate 87 /min Roberto Clutter PA-C Work Phone: [facility] 03-13-2024 11:57-0500 Respiratory rate 18 /min Roberto Clutter PA-C Work Phone: [facility] 03-13-2024 11:57-0500 SaO2% (BldA) [Mass fraction] 98 % Roberto Clutter PA-C Work Phone: [facility] 03-13-2024 11:57-0500 Systolic blood pressure 110 mm[Hg] Roberto Clutter PA-C Work Phone: [facility] 02-21-2024 08:17-0500 Body height 162.6 cm Nilad Crane CAMPUS RECRUITER.ENVIRONMENTAL SCIENCE INSTRUCTOR Work Phone: [facility] 02-21-2024 08:17-0500 Body mass index (BMI) [Ratio] 32.41 kg/m2 Nilda Linsey CAMPUS RECRUITER.ENVIRONMENTAL SCIENCE INSTRUCTOR Work Phone: [facility] 02-21-2024 08:17-0500 Body weight 85.64 kg Nilda Linsey CAMPUS RECRUITER.ENVIRONMENTAL SCIENCE INSTRUCTOR Work Phone: [facility] 02-21-2024 08:17-0500 Diastolic blood pressure 78 mm[Hg] Nilda Crane CAMPUS RECRUITER.ENVIRONMENTAL SCIENCE INSTRUCTOR Work Phone: [facility] 02-21-2024 08:17-0500 Systolic blood pressure 124 mm[Hg] Nilda Linsey CAMPUS RECRUITER.ENVIRONMENTAL SCIENCE INSTRUCTOR Work Phone: [facility] 01-30-2024 14:05-0500 Body mass index (BMI) [Ratio] 30.55 kg/m2 Nilda Crane CAMPUS RECRUITER.ENVIRONMENTAL SCIENCE INSTRUCTOR Work Phone: [facility] 01-30-2024 14:05-0500 Body weight 85 kg Nilda Crane CAMPUS RECRUITER.ENVIRONMENTAL SCIENCE INSTRUCTOR Work Phone: [facility] 01-30-2024 14:05-0500 Diastolic blood pressure 72 mm[Hg] Nilda Crane CAMPUS RECRUITER.ENVIRONMENTAL SCIENCE INSTRUCTOR Work Phone: [facility] 01-30-2024 14:05-0500 Systolic blood pressure 116 mm[Hg] Nilda Linsey CAMPUS RECRUITER.ENVIRONMENTAL SCIENCE INSTRUCTOR Work Phone: [facility] 12-12-2023 15:32-0400 Body mass index (BMI) [Ratio] 30.49 kg/m2 Nilda Linsey CAMPUS RECRUITER.ENVIRONMENTAL SCIENCE INSTRUCTOR Work Phone: [facility] 12-12-2023 15:32-0400 Body weight 84.82 kg Nilda Linsey CAMPUS RECRUITER.ENVIRONMENTAL SCIENCE INSTRUCTOR Work Phone: [facility] 12-12-2023 15:32-0400 Diastolic blood pressure 66 mm[Hg] Nilda Linsey CAMPUS RECRUITER.ENVIRONMENTAL SCIENCE INSTRUCTOR Work Phone: [facility] 12-12-2023 15:32-0400 Systolic blood pressure 122 mm[Hg] Nilda Crane CAMPUS RECRUITER.ENVIRONMENTAL SCIENCE INSTRUCTOR Work Phone: [facility] 10-31-2023 10:56-0400 Body height 166.8 cm Sommer Hernandez PA-C Work Phone: [facility] 10-31-2023 10:56-0400 Body mass index (BMI) [Ratio] 30.8 kg/m2 Sommer Hernandez PA-C Work Phone: [facility] 10-31-2023 10:56-0400 Body temperature 98.2 [degF] Sommer Hernandez PA-C Work Phone: [facility] 10-31-2023 10:56-0400 Body weight 85.68 kg Sommer Hernandez PA-C Work Phone: [facility] Comment on above: in a boot at this time 10-31-2023 10:56-0400 Diastolic blood pressure 78 mm[Hg] Sommer Hernandez PA-C Work Phone: [facility] 10-31-2023 10:56-0400 Heart rate 102 /min Sommer Hernandez PA-C Work Phone: [facility] 10-31-2023 10:56-0400 Respiratory rate 18 /min Sommer Hernandez PA-C Work Phone: [facility] 10-31-2023 10:56-0400 Systolic blood pressure 116 mm[Hg] Sommer Hernandez PA-C Work Phone: [facility] 08-25-2023 13:59-0400 Body weight 86.91 kg Nilda Crane CAMPUS RECRUITER.ENVIRONMENTAL SCIENCE INSTRUCTOR Work Phone: [facility] 08-25-2023 13:59-0400 Diastolic blood pressure 60 mm[Hg] Nilda Crane CAMPUS RECRUITER.ENVIRONMENTAL SCIENCE INSTRUCTOR Work Phone: [facility] 08-25-2023 13:59-0400 Systolic blood pressure 110 mm[Hg] Nilda Linsey CAMPUS RECRUITER.ENVIRONMENTAL SCIENCE INSTRUCTOR Work Phone: [facility] [place] 08-21-2023 10:35-0400 Body temperature 97.5 [degF] Alecia Vanessa CAMPUS RECRUITER.ENVIRONMENTAL SCIENCE INSTRUCTOR Work Phone: [facility] [place] 08-21-2023 10:35-0400 Body weight 86.5 kg Alecia Vanessa CAMPUS RECRUITER.ENVIRONMENTAL SCIENCE INSTRUCTOR Work Phone: [facility] 08-21-2023 10:35-0400 Diastolic blood pressure 81 mm[Hg] Alecia Vanessa CAMPUS RECRUITER.ENVIRONMENTAL SCIENCE INSTRUCTOR Work Phone: [facility] 08-21-2023 10:35-0400 Heart rate 104 /min Alecia Vanessa CAMPUS RECRUITER.ENVIRONMENTAL SCIENCE INSTRUCTOR Work Phone: [facility] [place] 08-21-2023 10:35-0400 Respiratory rate 18 /min Alecia Vanessa CAMPUS RECRUITER.ENVIRONMENTAL SCIENCE INSTRUCTOR Work Phone: [facility] [place] 08-21-2023 10:35-0400 SaO2% (BldA) [Mass fraction] 98 % Alecia Vanessa CAMPUS RECRUITER.ENVIRONMENTAL SCIENCE INSTRUCTOR Work Phone: [facility] 08-21-2023 10:35-0400 Systolic blood pressure 112 mm[Hg] Alecia Vanessa CAMPUS RECRUITER.ENVIRONMENTAL SCIENCE INSTRUCTOR Work Phone: [facility] 07-29-2023 08:08-0400 Body weight 86.91 kg Nilda Linsey CAMPUS RECRUITER.ENVIRONMENTAL SCIENCE INSTRUCTOR Work Phone: [facility] 07-29-2023 08:08-0400 Diastolic blood pressure 66 mm[Hg] Nilda Linsey CAMPUS RECRUITER.ENVIRONMENTAL SCIENCE INSTRUCTOR Work Phone: [facility] [place] 07-29-2023 08:08-0400 Systolic blood pressure 118 mm[Hg] Nilda Linsey CAMPUS RECRUITER.ENVIRONMENTAL SCIENCE INSTRUCTOR Work Phone: [facility] 07-11-2023 14:09-0400 Body weight 87.09 kg Nilda Linsey CAMPUS RECRUITER.ENVIRONMENTAL SCIENCE INSTRUCTOR Work Phone: [facility] 07-11-2023 14:09-0400 Diastolic blood pressure 74 mm[Hg] Nilda Linsey CAMPUS RECRUITER.ENVIRONMENTAL SCIENCE INSTRUCTOR Work Phone: [facility] [place] 07-11-2023 14:09-0400 Systolic blood pressure 118 mm[Hg] Nilda Crane CAMPUS RECRUITER.ENVIRONMENTAL SCIENCE INSTRUCTOR Work Phone: [facility] [place] 06-24-2023 14:28-0400 Body temperature 97.5 [degF] Que Chavez MD Work Phone: [facility] [place] 06-24-2023 14:28-0400 Body weight 88.22 kg Que Chavez MD Work Phone: [facility] 06-24-2023 14:28-0400 Heart rate 80 /min Que Chavez MD Work Phone: [facility] 06-24-2023 14:28-0400 Respiratory rate 16 /min Que Chavez MD Work Phone: [facility] 05-16-2023 14:25-0400 Body weight 88.45 kg Kia Lucero MD Work Phone: [facility] 05-16-2023 14:25-0400 Diastolic blood pressure 70 mm[Hg] Kia Lucero MD Work Phone: [facility] 05-16-2023 14:25-0400 Systolic blood pressure 102 mm[Hg] Kia Lucero MD Work Phone: [facility] [place] 05-03-2023 14:36-0500 Body weight 88.81 kg Delfina Watson CAMPUS RECRUITER.CNM Work Phone: [facility] [place] 05-03-2023 14:36-0500 Diastolic blood pressure 72 mm[Hg] Delfina Watson CAMPUS RECRUITER.CNM Work Phone: [facility] 05-03-2023 14:36-0500 Systolic blood pressure 110 mm[Hg] Delfina Watson CAMPUS RECRUITER.CNM Work Phone: [facility] 10-05-2022 11:36-0400 Body height 158.2 cm Sommer Hernandez PA-C Work Phone: [facility] [place] 10-05-2022 11:36-0400 Body mass index (BMI) [Percentile] Per age and sex 98.12 % Sommer Hernandez PA-C Work Phone: [facility] 10-05-2022 11:36-0400 Body temperature 97.7 [degF] Sommer Hernandez PA-C Work Phone: [facility] 10-05-2022 11:36-0400 Body weight 92.08 kg Sommer Hernandez PA-C Work Phone: [facility] [place] 10-05-2022 11:36-0400 Diastolic blood pressure 74 mm[Hg] Sommer Hernandez PA-C Work Phone: [facility] [place] 10-05-2022 11:36-0400 Heart rate 98 /min Sommer Hernandez PA-C Work Phone: [facility] 10-05-2022 11:36-0400 Respiratory rate 18 /min Sommer Hernandez PA-C Work Phone: [facility] [place] 10-05-2022 11:36-0400 Systolic blood pressure 124 mm[Hg] Sommer Hernandez PA-C Work Phone: [facility] [place] 07-15-2022 15:03-0400 Body weight 88 kg Nilda Linsey CAMPUS RECRUITER.ENVIRONMENTAL SCIENCE INSTRUCTOR Work Phone: [facility] [place] 07-15-2022 15:03-0400 Diastolic blood pressure 76 mm[Hg] Nilda Crane CAMPUS RECRUITER.ENVIRONMENTAL SCIENCE INSTRUCTOR Work Phone: [facility] [place] 07-15-2022 15:03-0400 Systolic blood pressure 100 mm[Hg] Nilda Linsey CAMPUS RECRUITER.ENVIRONMENTAL SCIENCE INSTRUCTOR Work Phone: [facility] 05-27-2022 11:36-0400 Body temperature 97.3 [degF] Ramon Patrick MD Work Phone: [facility] 05-27-2022 11:36-0400 Body weight 86.55 kg Ramon Patrick MD Work Phone: [facility] 05-27-2022 11:36-0400 Diastolic blood pressure 86 mm[Hg] Ramon Patrick MD Work Phone: [facility] [place] 05-27-2022 11:36-0400 Heart rate 19 /min Ramon Patrick MD Work Phone: [facility] 05-27-2022 11:36-0400 Respiratory rate 18 /min Ramon Patrick MD Work Phone: [facility] 05-27-2022 11:36-0400 SaO2% (BldA) [Mass fraction] 97 % Ramon Patrick MD Work Phone: [facility] [place] 05-27-2022 11:36-0400 Systolic blood pressure 110 mm[Hg] Ramon Patrick MD Work Phone: [facility] 05-07-2022 08:58-0500 Body temperature 98.6 [degF] Sommer Hernandez PA-C Work Phone: [facility] 05-07-2022 08:58-0500 Body weight 87.32 kg Sommer Hernandez PA-C Work Phone: [facility] 05-07-2022 08:58-0500 Heart rate 100 /min Sommer Hernandez PA-C Work Phone: [facility] [place] 05-07-2022 08:58-0500 Respiratory rate 16 /min Sommer Hernandez PA-C Work Phone: [facility] [place] 04-12-2022 08:30-0500 Body weight 86.82 kg Nilda Crane CAMPUS RECRUITER.ENVIRONMENTAL SCIENCE INSTRUCTOR Work Phone: [facility] [place] 04-12-2022 08:30-0500 Diastolic blood pressure 60 mm[Hg] Nilda Linsey CAMPUS RECRUITER.ENVIRONMENTAL SCIENCE INSTRUCTOR Work Phone: [facility] [place] 04-12-2022 08:30-0500 Systolic blood pressure 100 mm[Hg] Nilda Crane CAMPUS RECRUITER.ENVIRONMENTAL SCIENCE INSTRUCTOR Work Phone: [facility] [place] 03-16-2022 09:53-0500 Body weight 86.46 kg Nilda Linsey CAMPUS RECRUITER.ENVIRONMENTAL SCIENCE INSTRUCTOR Work Phone: [facility] [place] 03-16-2022 09:53-0500 Diastolic blood pressure 68 mm[Hg] Nilda Crane CAMPUS RECRUITER.ENVIRONMENTAL SCIENCE INSTRUCTOR Work Phone: [facility] [place] 03-16-2022 09:53-0500 Systolic blood pressure 100 mm[Hg] Nilda Crane CAMPUS RECRUITER.ENVIRONMENTAL SCIENCE INSTRUCTOR Work Phone: [facility] [place] 01-18-2022 10:13-0500 Body temperature 97.7 [degF] Alecia Mendez CAMPUS RECRUITER.ENVIRONMENTAL SCIENCE INSTRUCTOR Work Phone: [facility] [place] 01-18-2022 10:13-0500 Body weight 83.46 kg Alecia Vanessa CAMPUS RECRUITER.ENVIRONMENTAL SCIENCE INSTRUCTOR Work Phone: [facility] [place] 01-18-2022 10:13-0500 Diastolic blood pressure 64 mm[Hg] Alecia Vanessa CAMPUS RECRUITER.ENVIRONMENTAL SCIENCE INSTRUCTOR Work Phone: [facility] [place] 01-18-2022 10:13-0500 Heart rate 112 /min Alecia Vanessa CAMPUS RECRUITER.ENVIRONMENTAL SCIENCE INSTRUCTOR Work Phone: [facility] [place] 01-18-2022 10:13-0500 Respiratory rate 16 /min Alecia Vanessa CAMPUS RECRUITER.ENVIRONMENTAL SCIENCE INSTRUCTOR Work Phone: [facility] [place] 01-18-2022 10:13-0500 SaO2% (BldA) [Mass fraction] 96 % Alecia Vanessa CAMPUS RECRUITER.ENVIRONMENTAL SCIENCE INSTRUCTOR Work Phone: [facility] 01-18-2022 10:13-0500 Systolic blood pressure 118 mm[Hg] Alecia Vanessa CAMPUS RECRUITER.ENVIRONMENTAL SCIENCE INSTRUCTOR Work Phone: [facility] 10-28-2021 08:55-0400 Body height 163.8 cm Sommer Hernandez PA-C Work Phone: [facility] [place] 10-28-2021 08:55-0400 Body mass index (BMI) [Percentile] Per age and sex 96.45 % Sommer Hernandez PA-C Work Phone: [facility] 10-28-2021 08:55-0400 Body temperature 97.9 [degF] Sommer Hernandez PA-C Work Phone: [facility] 10-28-2021 08:55-0400 Body weight 84.37 kg Sommer Hernandez PA-C Work Phone: [facility] 10-28-2021 08:55-0400 Heart rate 80 /min Sommer Hernandez PA-C Work Phone: [facility] 10-28-2021 08:55-0400 Respiratory rate 16 /min Sommer Hernandez PA-C Work Phone: [facility] [place] 10-05-2021 12:50-0400 Body temperature 97.9 [degF] Alecia Vanessa CAMPUS RECRUITER.ENVIRONMENTAL SCIENCE INSTRUCTOR Work Phone: [facility] 10-05-2021 12:50-0400 Body weight 83.46 kg Alecia Vanessa CAMPUS RECRUITER.ENVIRONMENTAL SCIENCE INSTRUCTOR Work Phone: [facility] [place] 10-05-2021 12:50-0400 Diastolic blood pressure 76 mm[Hg] Alecia Vanessa CAMPUS RECRUITER.ENVIRONMENTAL SCIENCE INSTRUCTOR Work Phone: [facility] 10-05-2021 12:50-0400 Heart rate 88 /min Alecia Vanessa CAMPUS RECRUITER.ENVIRONMENTAL SCIENCE INSTRUCTOR Work Phone: [facility] 10-05-2021 12:50-0400 Respiratory rate 16 /min Alecia Vanessa CAMPUS RECRUITER.ENVIRONMENTAL SCIENCE INSTRUCTOR Work Phone: [facility] 10-05-2021 12:50-0400 SaO2% (BldA) [Mass fraction] 98 % Alecia Vanessa CAMPUS RECRUITER.ENVIRONMENTAL SCIENCE INSTRUCTOR Work Phone: [facility] 10-05-2021 12:50-0400 Systolic blood pressure 124 mm[Hg] Alecia Vanessa CAMPUS RECRUITER.ENVIRONMENTAL SCIENCE INSTRUCTOR Work Phone: [facility] 07-13-2021 09:04-0400 Body height 163.4 cm Que Chavez MD Work Phone: [facility] [place] 07-13-2021 09:04-0400 Body mass index (BMI) [Percentile] Per age and sex 96.38 % Que Chavez MD Work Phone: [facility] 07-13-2021 09:04-0400 Body temperature 97.7 [degF] Que Chavez MD Work Phone: [facility] 07-13-2021 09:04-0400 Body weight 83.01 kg Que Chavez MD Work Phone: [facility] 07-13-2021 09:04-0400 Heart rate 92 /min Que Chavez MD Work Phone: [facility] 07-13-2021 09:04-0400 Respiratory rate 20 /min Que Chavez MD Work Phone: [facility] 06-12-2021 09:04-0400 Body temperature 97.7 [degF] Que Chavez MD Work Phone: [facility] 06-12-2021 09:04-0400 Body weight 82.1 kg Que Chavez MD Work Phone: [facility] 06-12-2021 09:04-0400 Diastolic blood pressure 80 mm[Hg] Que Chavez MD Work Phone: [facility] 06-12-2021 09:04-0400 Heart rate 80 /min Que Chavez MD Work Phone: [facility] 06-12-2021 09:04-0400 Respiratory rate 18 /min Que Chavez MD Work Phone: [facility] 06-12-2021 09:04-0400 Systolic blood pressure 118 mm[Hg] Que Chavez MD Work Phone: [facility] [place] Encounters Encounter Date Encounter Type Care Provider Facility Start: 10-12-2024 End: 10-13-[address] Ruiz Vega DO Work Phone: [facility] Start: 10-12-2024 End: 10-13-2024 Patient encounter procedure Delfina Watson CNM [facility] Work Phone: Start: 10-09-2024 End: 10-09-2024 ambulatory RUIZ VEGA Facility:[facility] Start: 10-05-2024 End: 10-05-2024 Patient encounter procedure Delfina Watson APRN.CNM Work Phone: OB/Gynecology Comment on above: 39 weeks gestation o f (HCC) (Primary Dx); Supervision of high risk in third trimester (HCC); Obesity in (HCC); Positive GBS test Start: 10-05-2024 End: 10-05-2024 ambulatory RUIZ VEGA Facility:[facility] Start: 09-25-2024 End: 09-25-2024 Patient encounter procedure Janelle Marin MD Work Phone: OB/Gynecology Comment on above: Supervision of high risk in third trimester (HCC) (Primary Dx); 38 weeks gestation of (HCC) Start: 09-25-2024 End: 09-25-2024 ambulatory RUIZ VEGA Facility:[facility] Start: 09-18-2024 End: 09-18-2024 Patient encounter procedure Alo Thompson MD Work Phone: OB/Gynecology Comment on above: Supervision of high risk in third trimester (HCC) (Primary Dx); 37 weeks gestation of (HCC); Positive GBS test Start: 09-18-2024 End: 09-18-2024 ambulatory RUIZ VEGA Facility:[facility] Start: 09-12-2024 End: 09-12-2024 Patient encounter procedure Castillo Mckeon MD Work Phone: OB/Gynecology Comment on above: 36 weeks gestation o f (HCC) (Primary Dx); Supervision of high risk in third trimester (HCC); Obesity affecting in third trimester, unspecified obesity type (HCC); Heartburn during in third trimester (HCC) Start: 09-12-2024 End: 09-12-2024 ambulatory RUIZ VEGA Facility:[facility] Start: 09-04-2024 End: 09-04-2024 Follow-up encounter Janelle [...] (HCC) Start: 09-04-2024 End: 09-04-2024 ambulatory RUIZ L VEGA Facility:[facility] Start: 08-30-2024 End: 08-30-2024 Patient encounter procedure La Del Castillo APRN.CNM Work Phone: OB/Gynecology Comment on above: Supervision of high risk in third trimester (HCC) (Primary Dx); Obesity affecting in third trimester, unspecified obesity type (HCC); 34 weeks gestation of (HCC) Start: 08-30-2024 End: 08-30-2024 ambulatory RUIZ L VEGA Facility:[facility] Start: 08-16-2024 End: 08-16-2024 Patient encounter procedure Lindsey Moreno APRN.ENVIRONMENTAL SCIENCE INSTRUCTOR Work Phone: OB/Gynecology Comment on above: Supervision of high risk in third trimester (HCC) (Primary Dx); 32 weeks gestation of (HCC); Obesity affecting in third trimester, unspecified obesity type (HCC) Start: 08-16-2024 Encounter for genera l adult medical examination without abnormal findings RUIZ VEGA [facility] Start: 08-16-2024 End: 08-16-2024 ambulatory RUIZ L VEGA Facility:[facility] Start: 08-13-2024 End: 08-13-2024 Patient encounter procedure Ruiz Wagner Vega DO Work Phone: [facility] Comment on above: Well adult exam ([facility] Dx); 31 weeks gestation of (HCC); Class 2 obesity with body mass index (BMI) of 35.0 to 35.9 in adult, unspecified obesity type, unspecified whether serious comorbidity present; Gastroesophageal reflux disease without esophagitis Start: 08-13-2024 End: 08-13-2024 Patient encounter status Ruiz L Vega DO Work Phone: [facility] [place] Work Phone: Start: 08-13-2024 End: 08-13-2024 ambulatory RUIZ L VEGA Facility:[facility] Start: 08-06-2024 End: 08-08-2024 Telephone encounter La Del Castillo APRN.CNM Work Phone: OB/Gynecology Comment on above: breast pump Start: 08-03-2024 End: 08-03-2024 Telephone encounter Nurse Parallel Computing Software Engineer Manisha Bond Work Phone: Obstetrics/Gynecology Comment on above: PRAF Start: 08-01-2024 End: [...] Start: 08-01-2024 End: 08-01-2024 ambulatory CASTILLO MCKEON Facility:[facility] Start: 07-23-2024 End: 09-22-2024 Follow-up encounter Castillo Mckeon MD Work Phone: OB/Gynecology Start: 07-20-2024 End: 07-20-2024 Patient encounter procedure Lindsey Moreno APRN.ENVIRONMENTAL SCIENCE INSTRUCTOR Work Phone: OB/Gynecology Comment on above: Supervision of high risk in third trimester (HCC) (Primary Dx); 28 weeks gestation of (HCC); Obesity affecting in third trimester, unspecified obesity type (HCC); Vaginal discharge during in third trimester (HCC) Start: 07-20-2024 End: 07-20-2024 ambulatory SELF Facility:[facility] Start: 07-19-2024 End: 07-19-2024 Telephone encounter Castillo Mckeon MD Work Phone: OB/Gynecology Comment on above: Decreased FM Start: 07-09-2024 End: 07-09-2024 ambulatory La Del Castillo APRN.CNM Work Phone: OB/Gynecology Comment on above: Stuffy nose Start: 06-21-2024 End: 06-21-2024 Patient encounter procedure La Del Castillo APRN.BELGICA Work Phone: OB/Gynecology Comment on above: 24 weeks gestation o f (HCC) (Primary Dx); Obesity in (HCC); Supervision of normal first teen in second trimester (HCC); Decreased movements in second trimester, single or unspecified fetus (HCC) Start: 06-21-2024 End: 06-21-2024 ambulatory LA DEL CASTILLO Facility:[facility] Start: 06-19-2024 End: 06-19-2024 ambulatory KIA LUCERO Facility:[facility] Start: 06-19-2024 End: 06-19-2024 Patient encounter procedure Janelle Marin MD Work Phone: OB/Gynecology Comment on above: 24 weeks gestation o f (HCC) (Primary Dx); Obesity in (HCC); Screening for diabetes mellitus Start: 06-06-2024 End: 06-06-2024 ambulatory Kia Lucero MD Work Phone: OB/Gynecology Comment on above: Possible [place] hic ks Start: 06-06-2024 End: 06-06-2024 Patient encounter procedure La Del Castillo APRN.CNM Work Phone: OB/Gynecology Comment on above: Obesity in (HCC) (Primary Dx); Supervision of normal first teen in second trimester (HCC); 22 weeks gestation of (HCC); Cramping affecting , antepartum (HCC) Start: 05-29-2024 End: 07-29-2024 Follow-up encounter Delfina Watson APRN.CNM Work Phone: OB/Gynecology Start: 05-28-2024 End: 05-28-2024 Telephone encounter Nurse Parallel Computing Software Engineer Manisha Bond Work Phone: Obstetrics/Gynecology Comment on above: PRAF Start: 05-25-2024 End: 05-25-2024 Office outpatient visit 15 minutes Kia Lucero MD Work Phone: OB/Gynecology Comment on above: Supervision of jas l first teen in second trimester (Primary Dx); Obesity in ; 20 weeks gestation of Start: 05-25-2024 End: 05-25-2024 ambulatory DELFINA WATSON Facility:[facility] Start: 05-25-2024 End: 05-25-2024 Patient encounter procedure [employer] Parallel Computing Software Engineer [facility] Comment on above: Obesity in (Primary Dx); Supervision of normal first teen in first trimester; 13 weeks gestation of Start: 05-01-2024 End: 05-01-2024 Telephone encounter Janelle Marin MD Work Phone: OB/Gynecology Comment on above: Question (OB Questio n) Start: 04-28-2024 End: 04-28-2024 Emergency department patient visit Que Chavez Facility:[facility] Start: 04-27-2024 End: 04-27-2024 ambulatory DELFINA WATSON Facility:[facility] Start: 04-27-2024 End: 04-27-2024 Patient encounter procedure Delfina Walter CAMPUS RECRUITER.CNM Work Phone: OB/Gynecology Comment on above: Supervision of jas l first teen in second trimester (Primary Dx); Obesity in ; 16 weeks gestation of ; Dizziness Start: 04-13-2024 End: 04-13-2024 Telephone encounter La Del Castillo APRN.CNM Work Phone: OB/Gynecology Start: 04-10-2024 End: 04-10-2024 Refill Que Chavez MD Work Phone: [facility] Comment on above: Refill Request Start: 04-03-2024 End: 04-03-2024 ambulatory NILDA LINSEY Facility:[facility] Start: 04-03-2024 End: 04-03-2024 Patient encounter procedure Delfina Watson CAMPUS RECRUITER.CNM Work Phone: OB/Gynecology Comment on above: Supervision of jas l first teen in first trimester (Primary Dx); 13 weeks gestation of ; Obesity in Encounter for jyoti ferrell screening for malformation using ultrasound (Primary Dx); 13 weeks gestation of Start: 03-28-2024 End: 03-28-2024 ambulatory DUNCAN MUNGUIA Facility:[facility] Start: 03-28-2024 End: 03-28-2024 Patient encounter procedure Duncan Munguia MD Work Phone: OB/Gynecology Comment on above: Vaginal irritation ( Primary Dx); Vaginal discharge; Encounter for care in first trimester of first ; 12 weeks gestation of Start: 03-27-2024 End: 03-27-2024 ambulatory Delfina Watson CAMPUS RECRUITER.CNM Work Phone: OB/Gynecology Comment on above: Possible yeast infec tion Start: 03-22-2024 End: 03-22-2024 Telephone encounter La Del Castillo CAMPUS RECRUITER.CNM Work Phone: OB/Gynecology Comment on above: Medication Question Start: 03-19-2024 End: 03-19-2024 ambulatory QUE CHAVEZ Facility:[facility] Start: 03-19-2024 End: 03-19-2024 Patient encounter procedure Josiane Goodwin CAMPUS RECRUITER.ENVIRONMENTAL SCIENCE INSTRUCTOR Work Phone: [facility] Comment on above: Acute non-recurrent frontal sinusitis (Primary Dx) Start: 03-13-2024 End: 03-13-2024 Office outpatient new 30 minutes Roberto Powers PA-C Work Phone: [facility] Comment on above: Sore throat (Primary Dx) Start: 03-13-2024 End: 03-13-2024 ambulatory QUE CHAVEZ Facility:[facility] Start: 03-10-2024 End: 03-10-2024 ambulatory Vivian Jefferson RN NURSE NARROW [employer]AN Start: 03-10-2024 End: 03-10-2024 Patient encounter procedure Vivian Jefferson RN NURSE ON [facility] Comment on above: Clinical Update Start: 02-24-2024 End: 02-24-2024 Get Medical Advice Nilda Stiles CAMPUS RECRUITER.ENVIRONMENTAL SCIENCE INSTRUCTOR Work Phone: OB/Gynecology Comment on above: Lab Orders Start: 02-23-2024 End: 02-23-2024 Telephone encounter Pauline Au RN Obstetrics/Gynecology Comment on above: PRAF Start: 02-21-2024 End: 02-21-2024 ambulatory QUE CHAVEZ Facility:[facility] Start: 02-21-2024 End: 02-21-2024 Patient encounter procedure Nilda Bellcalf CAMPUS RECRUITER.ENVIRONMENTAL SCIENCE INSTRUCTOR Work Phone: OB/Gynecology Comment on above: Encounter for prenat al care in first trimester of first (Primary Dx); 7 weeks gestation of ; Vaginal irritation; BMI 32.0-32.9,adult; Supervision of normal first teen in first trimester Start: 01-30-2024 End: 01-30-2024 ambulatory QUE CHAVEZ Facility:[facility] Start: 01-30-2024 End: 01-30-2024 Patient encounter procedure Nilda Stiles CAMPUS RECRUITER.ENVIRONMENTAL SCIENCE INSTRUCTOR Work Phone: OB/Gynecology Comment on above: Encounter for pregna ncy test, result positive (Primary Dx) Start: 12-15-2023 End: 12-15-2023 Telephone encounter Nilda Stiles APRN.ENVIRONMENTAL SCIENCE INSTRUCTOR Work Phone: OB/Gynecology Comment on above: Results Start: 12-12-2023 End: 12-12-2023 ambulatory QUE CHAVEZ Facility:[facility] Start: 12-12-2023 End: 12-12-2023 Patient encounter procedure Nilda Bellcalf CAMPUS RECRUITER.ENVIRONMENTAL SCIENCE INSTRUCTOR Work Phone: OB/Gynecology Comment on above: Vaginal discharge (P rimary Dx); Vaginal irritation; Family history of thyroid disorder Start: 11-15-2023 End: 11-15-2023 [facility] Start: 10-31-2023 End: 10-31-2023 ambulatory QUE CHAVEZ Facility:[facility] Start: 10-31-2023 End: 10-31-2023 Patient encounter procedure Sommer Hernandez PA-C Work Phone: [facility] [place] Comment on above: Encounter for wellne ss examination in adult (Primary Dx); Mild intermittent asthma with (acute) exacerbation; Seborrhea; Adverse food reaction, initial encounter Start: 10-31-2023 End: 10-31-2023 Patient encounter status Sommer Hernandez PA-C Work Phone: [facility] Work Phone: Start: 10-28-2023 End: 10-28-2023 Refill Que Chavez MD Work Phone: [facility] Comment on above: Refill Request Start: 10-18-2023 End: 10-18-2023 ambulatory [facility] Facility:[facility] Start: 09-05-2023 Refill Que Chavez MD Work Phone: [facility] Comment on above: Refill Request Start: 08-25-2023 End: 08-25-2023 Patient encounter procedure Nilda Linsey CAMPUS RECRUITER.ENVIRONMENTAL SCIENCE INSTRUCTOR Work Phone: OB/Gynecology Comment on above: Vaginal burning (Yudith bell Dx) Start: 08-21-2023 End: 08-21-2023 Patient encounter procedure Alecia Vanessa CAMPUS RECRUITER.ENVIRONMENTAL SCIENCE INSTRUCTOR Work Phone: [facility] Comment on above: Sore throat (Primary Dx); Viral illness Start: 08-02-2023 Telephone encounter Nilda [facility] CAMPUS RECRUITER.ENVIRONMENTAL SCIENCE INSTRUCTOR Work Phone: OB/Gynecology Comment on above: Results Start: 07-29-2023 End: 07-29-2023 Patient encounter procedure Nilda Crane CAMPUS RECRUITER.ENVIRONMENTAL SCIENCE INSTRUCTOR Work Phone: OB/Gynecology Comment on above: Vaginal discharge (P rimary Dx) Start: 07-28-2023 Refill Rachael Huffman CAMPUS RECRUITER.ENVIRONMENTAL SCIENCE INSTRUCTOR Work Phone: OB/Gynecology Comment on above: Refill Request Start: 07-12-2023 Telephone encounter Nilda [facility] CAMPUS RECRUITER.ENVIRONMENTAL SCIENCE INSTRUCTOR Work Phone: OB/Gynecology Comment on above: Results Start: 07-11-2023 End: 07-11-2023 Patient encounter procedure Nilda Linsey CAMPUS RECRUITER.ENVIRONMENTAL SCIENCE INSTRUCTOR Work Phone: OB/Gynecology Comment on above: Vaginal burning (Yudith bell Dx) Start: 06-28-2023 Refill Ramon perez MD Work Phone: [facility] Comment on above: Refill Request Start: 06-24-2023 End: 06-24-2023 Office outpatient visit 25 minutes Que Chavez MD Work Phone: [facility] [place] Comment on above: Pes planus of both [...] End: 05-13-2023 Subsequent hospital visit by physician [facility] Work Phone: Radiology Comment on above: Pelvic pain in femal e [R10.2] Start: 05-03-2023 End: 05-03-2023 Patient encounter procedure Delfina Watson APRN.CNM Work Phone: OB/Gynecology Comment on above: Vaginal discharge (P rimary Dx); Vaginal itching; Pelvic pain in female Start: 04-28-2023 ambulatory Sommer Hernandez PA-C Work Phone: [facility] [place] Comment on above: Allergy testing Start: 11-11-2022 ambulatory Nilda Stiles CAMPUS RECRUITER.ENVIRONMENTAL SCIENCE INSTRUCTOR Work Phone: [place] [facility] Start: 11-11-2022 Patient encounter procedure Re nee Crane CAMPUS RECRUITER.ENVIRONMENTAL SCIENCE INSTRUCTOR Work Phone: OB/Gynecology Comment on above: Should I make an ck ointment Start: 10-05-2022 End: 10-05-2022 Patient encounter procedure Sommer Hernandez PA-C Work Phone: [facility] [place] Comment on above: Encounter for wellne ss examination in adult (Primary Dx); Encounter for immunization Start: 10-05-2022 End: 10-05-2022 Patient encounter status Sommer Hernandez PA-C Work Phone: [facility] Work Phone: Start: 07-15-2022 End: 07-15-2022 Patient encounter procedure Nilda Crane CAMPUS RECRUITER.ENVIRONMENTAL SCIENCE INSTRUCTOR Work Phone: OB/Gynecology Comment on above: Missed period (Prima ry Dx); Encounter for other contraceptive management Start: 07-09-2022 ambulatory Nilda Crane CAMPUS RECRUITER.ENVIRONMENTAL SCIENCE INSTRUCTOR Work Phone: OB/Gynecology Comment on above: control Start: 05-27-2022 End: 05-27-2022 Patient encounter procedure Ramon Patrick MD Work Phone: [facility] Comment on above: URI, acute (Primary Dx); Wheezing Start: 05-10-2022 E-mail encounter fro m caregiver Nilda Bellcalf CAMPUS RECRUITER.ENVIRONMENTAL SCIENCE INSTRUCTOR Work Phone: [facility] Start: 05-10-2022 Patient encounter procedure Re nee Crane CAMPUS RECRUITER.ENVIRONMENTAL SCIENCE INSTRUCTOR Work Phone: OB/Gynecology Comment on above: appointment 05/17/22 Start: 05-07-2022 End: 05-07-2022 Patient encounter procedure Sommer Hernandez PA-C Work Phone: [facility] Comment on above: Dysfunction of both eustachian tubes (Primary Dx); Seasonal allergies Start: 04-30-2022 ambulatory Nilda Crane CAMPUS RECRUITER.ENVIRONMENTAL SCIENCE INSTRUCTOR Work Phone: OB/Gynecology Comment on above: Bacterial Vaginosis Start: 04-13-2022 Telephone encounter Nilda [facility]na CAMPUS RECRUITER.ENVIRONMENTAL SCIENCE INSTRUCTOR Work Phone: OB/Gynecology Comment on above: Results Start: 04-12-2022 End: 04-12-2022 Patient encounter procedure Nilda Linsey CAMPUS RECRUITER.ENVIRONMENTAL SCIENCE INSTRUCTOR Work Phone: OB/Gynecology Comment on above: Vaginal irritation ( Primary Dx) Start: 04-09-2022 Telephone encounter Nilda [facility] CAMPUS RECRUITER.ENVIRONMENTAL SCIENCE INSTRUCTOR Work Phone: OB/Gynecology Comment on above: Appointment (1st att empt no answer, no voicemail. Called to R/S w/ R.Crane for 2/6.) Start: 03-16-2022 End: 03-16-2022 Patient encounter procedure Nilda Stiles CAMPUS RECRUITER.ENVIRONMENTAL SCIENCE INSTRUCTOR Work Phone: OB/Gynecology Comment on above: Pelvic pain in femal e (Primary Dx); Encounter for surveillance of contraceptive pills Start: 01-18-2022 End: 01-18-2022 Patient encounter procedure Alecia Hodarrin FRITZ.ENVIRONMENTAL SCIENCE INSTRUCTOR Work Phone: [facility] Comment on above: Acute cough (Primary Dx); Fever, unspecified fever cause; Sore throat; URI with cough and congestion Start: 12-28-2021 End: 12-28-2021 Patient encounter procedure Nurse Peds [place] [facility] [place] Comment on above: Encounter for immuni zation (Primary Dx) Start: 10-28-2021 End: 10-28-2021 Patient encounter procedure Sommer Hernandez PA-C Work Phone: [facility] [place] Comment on above: Seasonal allergies ( Primary Dx) Start: 10-05-2021 End: 10-05-2021 Patient encounter procedure Alecia Hodarrin FRITZ.ENVIRONMENTAL SCIENCE INSTRUCTOR Work Phone: [facility] Comment on above: Upper respiratory sy mptom (Primary Dx); Suspected COVID-19 virus infection Start: 09-18-2021 End: 09-18-2021 ambulatory Erinn Woody MD Work Phone: OB/Gynecology 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 Start: 07-13-2021 End: 07-13-2021 Patient encounter procedure Que Chavez MD Work Phone: [facility] [place] Comment on above: Encounter for [facility] (w ell child check) with abnormal findings [...] et rgnt non-auto w/o micrscp Delfina Watson CAMPUS RECRUITER.CNM Work Phone: Start: 09-25-2024 Urnls dip stick/tabl [...] rgnt non-auto w/o micrscp La Del Castillo CAMPUS RECRUITER.CNM Work Phone: Start: 06-06-2024 Urnls dip stick/tabl et rgnt auto w/o microscopy La Del Castillo CAMPUS RECRUITER.CNM Work Phone: Start: 05-25-2024 Us preg uterus after 1st trimest / gestation Delfina Watson CAMPUS RECRUITER.CNM Work Phone: Start: 04-03-2024 Us nuchal translucency 1st gestation Nilda Linsey CAMPUS RECRUITER.ENVIRONMENTAL SCIENCE INSTRUCTOR Work Phone: Start: 03-13-2024 STREP A MOLECULAR (POC) Delfina Nicholas CAMPUS RECRUITER.ENVIRONMENTAL SCIENCE INSTRUCTOR Work Phone: Start: 02-24-2024 Antibody screen NILDA LOWE Comment on above: Order Comment: Speci men Type: SWAB Ordering Facility: [facility] Address: [address] [place] [address] Performed By: #### C VTV, BVAMP #### [facility] CLIA [id number] [address] [place] [address] [place] [address] [place] Start: 02-21-2024 Us uterus l imited fetuses Nilda Crane CAMPUS RECRUITER.ENVIRONMENTAL SCIENCE INSTRUCTOR Work Phone: Start: 01-30-2024 UA DIP,URINE HCG (POC) Nilda Bellcalf CAMPUS RECRUITER.ENVIRONMENTAL SCIENCE INSTRUCTOR Work Phone: Start: 10-31-2023 Adult depression scr eening assessment Nilda Linsey CAMPUS RECRUITER.ENVIRONMENTAL SCIENCE INSTRUCTOR Work Phone: Start: 08-21-2023 STREP A MOLECULAR (POC) [facility] Provider Start: 07-11-2023 BACTERIAL VAGINOSIS NAAT Nilda Bellcalf CAMPUS RECRUITER.ENVIRONMENTAL SCIENCE INSTRUCTOR Work Phone: Start: 07-11-2023 Iadna trichomonas vaginalis amplified probe tech Nilda Bellcalf CAMPUS RECRUITER.ENVIRONMENTAL SCIENCE INSTRUCTOR Work Phone: Start: 05-13-2023 Us transvaginal Delfina Watson CAMPUS RECRUITER.CNM Work Phone: Start: 05-03-2023 BACTERIAL VAGINOSIS NAAT Delfina Watson CAMPUS RECRUITER.CNM Work Phone: Start: 05-03-2023 Iadna chlamydia trachomatis amplified probe tq Delfina Watson CAMPUS RECRUITER.CNM Work Phone: Start: 07-15-2022 Urine test visual color cmprsn meths Nilda Crane CAMPUS RECRUITER.ENVIRONMENTAL SCIENCE INSTRUCTOR Work Phone: Start: 12-28-2021 [employer] COVI D-19 PRIMARY SERIES VACCINE, AGE 12+ YR Sommer Hernandez PA-C Work Phone: Start: 07-13-2021 Adult depression scr eening assessment Que Chavez MD Work Phone: Start: 05-05-2017 Adult depression scr eening assessment Que Chavez MD Work Phone: Plan of Treatment Date Care Activity Detail Author Start: 06-13-2031 Urine microalbumin profile [facility] Start: 08-13-2025 Annual PCP Team Business Operations Coordinator lluvia Disease Visit Annual PCP Team Chronic Disease Visit [facility] Start: 03-19-2025 Annual PCP Team Business Operations Coordinator lluvia Disease Visit Annual PCP Team Chronic Disease Visit [facility] Start: 02-20-2025 GC (Gonorrhea) Scree alexsandra (18) GC (Gonorrhea) Screening () [facility] Start: 02-20-2025 Screening for Chlamy morgan trachomatis Chlamydia Screening () [facility] Start: 12-14-2024 End: 12-14-2024 Patient encounter procedure 12/14/2024 1:40 PM EDT Office Visit Family [facility] [place] [address] [place], [place] [id number] Ruiz Vega DO [address] [place], [place] [id number] Follow up [facility] [place] Comment on above: Follow up Start: 11-05-2024 Influenza vaccination Influenza Vacc ine (#1) [facility] Start: 10-30-2024 Annual PCP Team Business Operations Coordinator lluvia Disease Visit Annual PCP Team Chronic Disease Visit [facility] Start: 10-30-2024 Anxiety Screening Anxiety Screening [facility] Start: 10-30-2024 Asthma Control Test Asthma Control T est [facility] Start: 10-30-2024 Depression Screening Depression Scre ening [facility] Start: 10-15-2024 ambulatory Ambulatory Facility:[facility] Start: 10-13-2024 [facility] Start: 10-12-2024 Nonstress test [facility] Start: 10-12-2024 Obstetric monitoring [facility] Start: 10-12-2024 Vital signs measurements [facility] Start: 10-12-2024 [facility] Start: 10-09-2024 End: 10-09-2024 Patient encounter procedure 10/09/2024 1:40 PM EDT Routine Office Visit OB/Gynecology [address] [place] [address] Castillo Mckeon MD [address] [place] [address] OB OB/Gynecology Comment on above: OB Start: 10-05-2024 End: 10-05-2024 Patient encounter procedure 10/05/2024 4:30 PM EDT Routine Office Visit OB/Gynecology [address] [place] [address] Delfina Watson APRN.[facility] [address] [place] [address] OB OB/Gynecology Comment on above: OB Start: 10-02-2024 End: 10-02-2024 Patient encounter procedure 10/02/2024 1:30 PM EDT Routine Office Visit OB/Gynecology [address] [place] [address] Kia Lucero MD [address] [place] [address] OB OB/Gynecology Comment on above: OB Start: 09-25-2024 End: 09-25-2024 Patient encounter procedure 09/25/2024 2:20 PM EDT Routine Office Visit OB/Gynecology [address] [place] [address] Janelle Marin MD [address] [place] [address] OB OB/Gynecology Comment on above: OB Start: 09-18-2024 End: 09-18-2024 Patient encounter procedure 09/18/2024 1:30 PM EDT Routine Office Visit OB/Gynecology [address] [place] [address] Alo Thompson MD [address] [place] [address] (Fax) OB OB/Gynecology Comment on above: OB Start: 09-12-2024 End: 09-12-2024 Patient encounter procedure 09/12/2024 10:10 AM EDT Routine Office Visit OB/Gynecology [address] [place] [address] Castillo Mckeon MD [address] [place] [address] (Fax) OB OB/Gynecology Comment on above: OB Start: 09-04-2024 [facility] Start: 09-04-2024 [facility] Start: 08-30-2024 End: 08-30-2024 Patient encounter procedure 08/30/2024 3:15 PM EDT Routine Office Visit OB/Gynecology [address] [place] [address] La De lCastillo APRN.CNM [address] [place] [address] (Fax) Ob OB/Gynecology Comment on above: Ob Start: 08-16-2024 End: 08-16-2024 Patient encounter procedure 08/16/2024 2:30 PM EDT Routine Office Visit OB/Gynecology [address] [place] [address] Lindsey Moreno APRN.ENVIRONMENTAL SCIENCE INSTRUCTOR [address] [place] [address] (Fax) OB OB/Gynecology Comment on above: OB Start: 08-13-2024 End: 08-13-2024 Patient encounter procedure 08/13/2024 9:20 AM EDT Office Visit Family Medicine [place] [address] [place] [address] Ruiz Vega L, DO [address] [place] [address] [place] Comment on above: Transfer from peds/[facility] Start: 08-03-2024 End: 08-03-2024 Patient encounter procedure 08/03/2024 2:30 PM EDT Routine Office Visit OB/Gynecology [address] [place] [address] Erinn Schwartz MD [address] [place] [address] OB OB/Gynecology Comment on above: OB Start: 08-02-2024 End: 08-02-2024 Patient encounter procedure 08/02/2024 10:30 AM EDT Routine Office Visit OB/Gynecology [address] [place] [address] La Del Castillo APRN.CNM [address] [place] [address] OB OB/Gynecology Comment on above: OB Start: 08-01-2024 End: 10-31-2024 BILE ACIDS, TOTAL [facility] Work Phone: Comment on above: Expected: 08/01/2024 , Expires: 10/31/2024 Start: 07-20-2024 End: 07-20-2024 Patient encounter procedure 07/20/2024 8:45 AM EDT Routine Office Visit OB/Gynecology [address] [place] [address] Lindsey Moreno APRN.ENVIRONMENTAL SCIENCE INSTRUCTOR [address] [place] [address] OB Routine OB/Gynecology Comment on above: OB Routine Start: 07-20-2024 End: 07-20-2024 ambulatory 07/20/2024 8:30 AM EDT Results Only [place] [facility] [address] [place] [address] Glucose Test and LABs [facility] Comment on above: Glucose Test and LAB s Start: 06-23-2024 Annual PCP Team Business Operations Coordinator lluvia Disease Visit Annual PCP Team Chronic Disease Visit [facility] Start: 06-19-2024 End: 06-19-2024 Patient encounter procedure 06/19/2024 2:40 PM EDT Routine Office Visit OB/Gynecology [address] [place] [address] Kia Lucero MD [address] [place] [address] OB OB/Gynecology Comment on above: OB Start: 06-19-2024 End: 09-18-2024 ANEMIA REFLEX PANEL ANEMIA REFLEX PANEL Lab Routine 24 weeks gestation of ([facility]) Expected: 06/19/2024, Expires: 09/18/2024 [facility] Comment on above: Expected: 06/19/2024 , Expires: 09/18/2024 Start: 06-19-2024 End: 06-19-2025 GESTATIONAL GLUCOSE SCREEN, 1-HOUR, 50 GRAM, NON-FASTING GESTATIONAL GLUCOSE SCREEN, 1-HOUR, 50 GRAM, NON-FASTING Lab Routine 24 weeks gestation of ([facility]) Screening for diabetes mellitus Expected: 06/19/2024, Expires: 06/19/2025 [facility] Work Phone: Comment on above: Expected: 06/19/2024 , Expires: 06/19/2025 Start: 06-19-2024 End: 06-19-2025 SYPHILIS TREPONEMAL W/REFLEX SYPHILIS TREPONEMAL W/REFLEX Lab Routine 24 weeks gestation of ([facility]) Expected: 06/19/2024, Expires: 06/19/2025 [facility] Comment on above: Expected: 06/19/2024 , Expires: 06/19/2025 Start: 05-25-2024 End: 05-25-2024 Patient encounter procedure [facility]aternal [facility] Comment on above: Anatomy OB Start: 05-03-2024 GC (Gonorrhea) Scree alexsandra (18) GC (Gonorrhea) Screening () [facility] Start: 05-03-2024 Screening for Chlamy morgan trachomatis Chlamydia Screening () [facility] Start: 04-27-2024 End: 04-27-2024 Patient encounter procedure 04/27/2024 1:15 PM EST Routine Office Visit OB/Gynecology [address] [place], [place] [id number] Delfina Watson APRN.CN [address] [place] [address] OB OB/Gynecology Comment on above: OB Start: 04-03-2024 End: 04-03-2024 Patient encounter procedure Maternal Medicine Comment on above: Nuchal Nuchal/ OB Start: 04-03-2024 End: 04-03-2025 OBSTETRIC ULTRASOUND WHI OBSTETRIC ULTRASOUND WHI Anc Imaging Routine Supervision of normal first teen in first trimester 13 weeks gestation of Obesity in Expected: 04/03/2024, Expires: 04/03/2025 [facility] Work Phone: Comment on above: Expected: 04/03/2024 , Expires: 04/03/2025 Start: 03-28-2024 End: 03-28-2024 Patient encounter procedure 03/28/2024 9:10 AM EST Routine Office Visit OB/Gynecology [address] [place], [place] [id number] Duncan Munguia MD [address] [place] [address] vaginal infection OB/Gynecology Comment on above: vaginal infection Start: 02-21-2024 End: 05-22-2024 ANEMIA REFLEX PANEL ANEMIA REFLEX PANEL Lab Routine Encounter for care in first trimester of first 7 weeks gestation of Expected: 02/21/2024, Expires: 05/22/2024 [facility] Work Phone: Comment on above: Expected: 02/21/2024 , Expires: 05/22/2024 Start: 02-21-2024 End: 05-22-2024 Chromosome 21 trisomy [Presence] in Blood or Tissue by Cytogenetics [id number] PLUS Lab Routine 7 weeks gestation of Expected: 02/21/2024, Expires: 05/22/2024 [facility] Comment on above: Expected: 02/21/2024 , Expires: 05/22/2024 Start: 02-21-2024 End: 05-22-2024 Hemoglobin A1c in Blood HEMOGLOBIN A1C Lab Routine Encounter for care in first trimester of first 7 weeks gestation of Expected: 02/21/2024, Expires: 05/22/2024 [facility] Comment on above: Expected: 02/21/2024 , Expires: 05/22/2024 Start: 02-21-2024 End: 05-22-2024 Hepatitis B virus surface Ag [Presence] in Serum HEPATITIS B SURFACE ANTIGEN Lab Routine Encounter for care in first trimester of first 7 weeks gestation of Expected: 02/21/2024, Expires: 05/22/2024 [facility] Comment on above: Expected: 02/21/2024 , Expires: 05/22/2024 Start: 02-21-2024 End: 05-22-2024 Hepatitis C virus Ab [Presence] in Serum HEPATITIS C ANTIBODY IA WITH CONFIRMATION Lab Routine Encounter for care in first trimester of first 7 weeks gestation of Expected: 02/21/2024, Expires: 05/22/2024 [facility] Comment on above: Expected: 02/21/2024 , Expires: 05/22/2024 Start: 02-21-2024 End: 05-22-2024 HIV 1+2 Ab [Presence] in Serum or Plasma by Immunoassay HIV 1/2 COMBO WITH REFLEX TO DIFFERENTIATION Lab Routine Encounter for care in first trimester of first 7 weeks gestation of Expected: 02/21/2024, Expires: 05/22/2024 [facility] Comment on above: Expected: 02/21/2024 , Expires: 05/22/2024 Start: 02-21-2024 End: 02-20-2025 NUCHAL TRANSLUCENCY WHI NUCHAL TRANSLUCENCY WHI Anc Imaging Routine Encounter for care in first trimester of first 7 weeks gestation of Expected: 02/21/2024, Expires: 02/20/2025 [facility] Comment on above: Expected: 02/21/2024 , Expires: 02/20/2025 Start: 02-21-2024 End: 05-22-2024 RUBELLA IGG ANTIBODY RUBELLA IGG ANTIBODY Lab Routine Encounter for care in first trimester of first 7 weeks gestation of Expected: 02/21/2024, Expires: 05/22/2024 [facility] Comment on above: Expected: 02/21/2024 , Expires: 05/22/2024 Start: 02-21-2024 End: 05-22-2024 SYPHILIS TREPONEMAL W/REFLEX SYPHILIS TREPONEMAL W/REFLEX Lab Routine Encounter for care in first trimester of first 7 weeks gestation of Expected: 02/21/2024, Expires: 05/22/2024 [facility] Comment on above: Expected: 02/21/2024 , Expires: 05/22/2024 Start: 02-21-2024 End: 05-22-2024 TYPE + SCREEN TYPE + SCREEN Blood Bank Routine Encounter for care in first trimester of first 7 weeks gestation of Expected: 02/21/2024, Expires: 05/22/2024 [facility] Comment on above: Expected: 02/21/2024 , Expires: 05/22/2024 Start: 02-21-2024 End: 02-21-2024 Patient encounter procedure 02/21/2024 8:15 AM EST Initial Office Visit OB/Gynecology [address] [place] [address] Nilda Stiles APRN.ENVIRONMENTAL SCIENCE INSTRUCTOR [address] [place] [address] New OB OB/Gynecology Comment on above: New OB Start: 12-12-2023 End: 03-12-2024 THYROID PEROXIDASE ANTIBODY [facility] Comment on above: Expected: 12/12/2023 , Expires: 03/12/2024 Start: 12-12-2023 End: 03-12-2024 Thyrotropin [Units/volume] in Serum or Plasma [facility] Work Phone: Comment on above: Expected: 12/12/2023 , Expires: 03/12/2024 Start: 12-12-2023 End: 03-12-2024 Thyroxine (T4) free [Mass/volume] in Serum or Plasma [facility] Comment on above: Expected: 12/12/2023 , Expires: 03/12/2024 Start: 12-12-2023 End: 03-12-2024 Triiodothyronine (T3) Free [Mass/volume] in Serum or Plasma [facility] Comment on above: Expected: 12/12/2023 , Expires: 03/12/2024 Start: 12-07-2023 End: 12-07-2023 Patient encounter procedure 12/07/2023 8:30 AM EDT Office Visit Allergy [address] [phone] Tio Wilcox MD [address] [place], [place] [id number] Adverse food reaction, initial encounter [T78.1XXA] Allergy Comment on above: Adverse food reactio n, initial encounter [T78.1XXA] Start: 11-11-2023 End: 11-11-2023 Patient encounter procedure 11/11/2023 8:00 AM EDT Office Visit OB/Gynecology [address] [place] [address] Nilda Stiles APRN.ENVIRONMENTAL SCIENCE INSTRUCTOR [address] [facility] [place] [address] yeast infection resistant OB/Gynecology Comment on above: yeast infection resi stant Start: 11-06-2023 Covid-19 Vaccine ( season) Covid-19 Vaccine ( season) [facility] Start: 11-06-2023 Influenza vaccination C [facility] Start: 10-31-2023 End: 10-31-2023 Patient encounter procedure 10/31/2023 11:00 AM EDT Office Visit Pediatrics [place] [address] [place] [address] Sommer Hernandez PA-C [address] [place] [address] [facility] [place] Comment on above: [facility] Start: 03-16-2023 CHLAMYDIA SCREENING (18-24) CHLAMYDIA SCREENING (18-24) [facility] Start: 03-16-2023 CHLAMYDIA SCREENING (<18) CHLA MYDIA SCREENING (<18) [facility] Start: 03-16-2023 GC (GONORRHEA) SCREE ALEXSANDRA (18-24) GC (GONORRHEA) SCREENING (18-24) [facility] Start: 03-16-2023 GC (GONORRHEA) SCREE ALEXSANDRA (<18) GC (GONORRHEA) SCREENING (<18) [facility] Start: 03-16-2023 Screening for Chlamy morgan trachomatis Chlamydia Screening (18-24) [facility] Start: 03-07-2023 Behavioral Health Screening Behavioral Health Screening [facility] Start: 03-07-2023 Depression Assessment Depression Ass [facility] Start: 11-05-2022 Covid-19 Vaccine ( season) Covid-19 Vaccine ( season) [facility] Start: 11-05-2022 Influenza vaccination [facility] Start: 2022 Anxiety Screening Anxiety Screening [facility] Start: 2022 Depression Screening Depression Scre ening [facility] Start: 2022 HEPATITIS C SCREENING HEPATITIS C [facility] Start: 2022 Hepatitis C screening Hepatitis C [facility] Start: 2022 HIV SCREENING HIV SCREENING [facility] Start: 2022 HIV screening HIV Screening [facility] Start: 2022 Spirometry Spirometry [facility] Start: 07-13-2022 Adult depression screening assessment DEPRESSION SCREENING [facility] Start: 03-07-2022 DEPRESSION ASSESSMENT DEPRESSION ASS ESSMENT [facility] Start: 02-22-2022 COVID-19 VACCINE (3 - Booster for Pfizer series) COVID-19 VACCINE (3 - Booster for Pfizer series) [facility] Start: 02-22-2022 COVID-19 VACCINE (3 - Pfizer series) COVID-19 VACCINE (3 - Pfizer series) [facility] Start: 01-18-2022 End: 02-01-2022 COVID, FLU A/B + RSV, ROUTINE [facility] Work Phone: Comment on above: Expected: 01/18/2022 , Expires: 02/01/2022 Start: 11-05-2021 Influenza vaccination C [facility] Start: 10-05-2021 End: 10-19-2021 COVID, FLU A/B + RSV, ROUTINE COVID, FLU A/B + RSV, ROUTINE Microbiology Routine Upper respiratory symptom Suspected COVID-19 virus infection Expected: 10/05/2021, Expires: 10/19/2021 [facility] Work Phone: Comment on above: Expected: 10/05/2021 , Expires: 10/19/2021 Start: 04-27-2021 Asthma Action Plan Asthma Action Yessenia n [facility] Start: 2020 Meningococcal B Vacc ine (1 of 2 - Standard) Meningococcal B Vaccine (1 of 2 - Standard) [facility] Start: 2020 Meningococcal B Vacc ine: Consider Based On Risk (1 of 2 - Patient Seeks Protection) Meningococcal B Vaccine: Consider Based On Risk (1 of 2 - Patient Seeks Protection) [facility] Start: 2020 MENINGOCOCCAL B: Con moisture tester based on risk (1 of 2 - Patient Seeks Protection) MENINGOCOCCAL B: Consider based on risk (1 of 2 - Patient Seeks Protection) [facility] Start: 04-27-2020 Asthma Control Test Asthma Control T est [facility] Start: 10-26-2019 HPV VACCINE (2 - 2-d ose series) HPV VACCINE (2 - 2-dose series) [facility] Start: 08-13-2019 CHLAMYDIA SCREENING (<18) CHLA MYDIA SCREENING (<18) [facility] Start: 08-13-2019 GC (GONORRHEA) SCREE ALEXSANDRA (<18) GC (GONORRHEA) SCREENING (<18) [facility] Start: 2018 PEDS TO ADULT TRANSI TION ANNUAL ASSESSMENT PEDS TO ADULT TRANSITION ANNUAL ASSESSMENT [facility] Start: 05-05-2018 Adult depression screening assessment DEPRESSION SCREENING [facility] Start: 2016 PEDS TO ADULT TRANSI TION INITIAL DISCUSSION PEDS TO ADULT TRANSITION INITIAL DISCUSSION [facility] Start: 2014 MENINGOCOCCAL B: Con moisture tester based on risk (1 of 2 - Risk Bexsero 2-dose series) MENINGOCOCCAL B: Consider based on risk (1 of 2 - Risk Bexsero 2-dose series) [facility] Start: 2009 COVID-19 VACCINE (#1) COVID-19 VACCI NE (#1) [facility] Start: 2009 COVID-19 VACCINE (1) COVID-19 VACCIN E (1) [facility] Start: 02-11-2005 COVID-19 VACCINE (#1) COVID-19 VACCI NE (#1) [facility] Bacteria identified in Urine by Culture URINE CULTURE Microbiology Routine Encounter for care in first trimester of first 7 weeks gestation of 02/21/2024 8:57 AM [facility] BACTERIAL VAGINOSIS AMPLIFICATION BACTERIAL VAGINOSIS AMPLIFICATION Lab Routine Pelvic pain in female 03/16/2022 10:38 AM [facility] Work Phone: BACTERIAL VAGINOSIS AMPLIFICATION BACTERIAL VAGINOSIS AMPLIFICATION Lab Routine Vaginal irritation 04/12/2022 8:51 AM [facility] Work Phone: BACTERIAL VAGINOSIS NAAT BACTERI AL VAGINOSIS NAAT Lab Routine Vaginal discharge 07/29/2023 8:31 AM EDT [facility] BACTERIAL VAGINOSIS NAAT BACTERI AL VAGINOSIS NAAT Lab Routine Vaginal discharge [facility] BACTERI AL VAGINOSIS NAAT Lab Routine Vaginal irritation 02/21/2024 8:57 AM [facility] BACTERIAL VAGINOSIS NAAT BACTERI AL VAGINOSIS NAAT Lab Routine Vaginal irritation Vaginal discharge 03/28/2024 10:13 AM [facility] Work Phone: BACTERIAL VAGINOSIS NAAT BACTERI AL VAGINOSIS NAAT Lab Routine Vaginal discharge during in third trimester (HCC) 07/20/2024 8:54 AM [facility] Work Phone: FRANCO / TRICHOMONA S AMPLIFICATION FRANCO / TRICHOMONAS AMPLIFICATION Microbiology Routine Pelvic pain in female 03/16/2022 10:38 AM [employer] [facility] Work Phone: FRANCO / TRICHOMONA S AMPLIFICATION FRANCO / TRICHOMONAS AMPLIFICATION Microbiology Routine Vaginal irritation 04/12/2022 8:51 AM [facility] Work Phone: FRANCO/TRICHOMONAS NAAT FRANCO /TRICHOMONAS NAAT Lab Routine Vaginal discharge 07/29/2023 8:31 AM T [facility] Work Phone: FRANCO/TRICHOMONAS NAAT FRANCO /TRICHOMONAS NAAT Lab Routine Vaginal discharge Vaginal irritation 12/12/2023 4:17 PM EDT [facility] FRANCO/TRICHOMONAS NAAT FRANCO /TRICHOMONAS NAAT Lab Routine Vaginal irritation 02/21/2024 8:57 AM [facility] FRANCO/TRICHOMONAS NAAT FRANCO /TRICHOMONAS NAAT Lab Routine Vaginal irritation Vaginal discharge 03/28/2024 10:13 AM [facility] FRANCO/TRICHOMONAS NAAT FRANCO /TRICHOMONAS NAAT Lab Routine Vaginal discharge during in third trimester (HCC) 07/20/2024 8:54 AM [facility] Chlamydia trachomatis+Neisseria gonorrhoeae DNA [Presence] in Unspecified specimen by MEG with probe detection GC/CHLAMYDIA DNA DET Lab Routine Pelvic pain in female 03/16/2022 10:38 AM [facility] Work Phone: Chlamydia trachomatis+Neisseria gonorrhoeae DNA [Presence] in Unspecified specimen by MEG with probe detection GONORRHEA/CHLAMYDIA NAAT Lab Routine Encounter for care in first trimester of first 7 weeks gestation of 02/21/2024 8:57 AM [facility] Measurement of pH in vaginal fluid specimen using nitrazine yellow for detection of rupture of amniotic membrane [facility] Patient Education [facility] Work Phone: Removal intrauterine device iud REMOVE INTRAUTERINE DEVICE Procedures Routine Malpositioned intrauterine device (IUD), initial encounter Encounter for IUD removal Ordered: 05/13/2023 [facility] Work Phone: Comment on above: Ordered: 05/13/2023 ROUTINE FLU A/B + RSV ROUTINE FL U A/B + RSV Lab Routine Upper respiratory symptom Suspected COVID-19 virus infection Ordered: 10/05/2021 [facility] Work Phone: Comment on above: Ordered: 10/05/2021 ROUTINE FLU A/B + RSV ROUTINE FL U A/B + RSV Lab Routine Acute cough Fever, unspecified fever cause Sore throat URI with cough and congestion 01/18/2022 10:38 AM [facility] Work Phone: ROUTINE, GR OUP B STREPTOCOCCUS BY PCR ROUTINE, GROUP B STREPTOCOCCUS BY PCR Microbiology Routine 36 weeks gestation of ([facility]) 09/12/2024 10:54 AM EDT [facility] Work Phone: SARS-CoV-2 (COVID-19 ) RNA [Presence] in Respiratory specimen by MEG with probe detection 2019 CORONAVIRUS Microbiology Routine Upper respiratory symptom Suspected COVID-19 virus infection Ordered: 10/05/2021 [facility] Work Phone: Comment on above: Ordered: 10/05/2021 SARS-CoV-2 (COVID-19 ) RNA [Presence] in Respiratory specimen by MEG with probe detection 2019 CORONAVIRUS Microbiology Routine Acute cough Fever, unspecified fever cause Sore throat URI with cough and congestion 01/18/2022 10:38 AM [facility] Work Phone: SARS-CoV-2 (COVID-19 ) RNA [Presence] in Respiratory specimen by MEG with probe detection 2019 CORONAVIRUS Microbiology Routine URI, acute Wheezing Ordered: 05/27/2022 [facility] Work Phone: Comment on above: Ordered: 05/27/2022 UROGENITAL UREAPLASM A AND MYCOPLASMA SPECIES BY PCR, FOR GENITAL, RECTAL, URINE SAMPLES UROGENITAL UREAPLASMA AND MYCOPLASMA SPECIES BY PCR, FOR GENITAL, RECTAL, URINE SAMPLES Lab Routine Vaginal discharge Vaginal irritation 12/12/2023 4:17 PM EDT [facility] c [facility] Immunizations Immunization Date Immunization Notes Care Provider [facility] 12-14-2023 influenza, seasonal, injectable, preservative free Dr. uRiz Vega DO Work Phone: [facility] 12-14-2023 influenza virus vacc ine, unspecified formulation Janelle Marin MD Work Phone: [facility] 10-05-2022 Human Papillomavirus 9-valent vaccine Sommer Hernandez PA-C Work Phone: [facility] 12-28-2021 Covid (Pfizer) Dr. Ruiz Vega DO Work Phone: [facility] 12-28-2021 COVID-19 original vaccine, age 12+ yr, monovalent (PFIZER-BIONTECH - MARTINEZ TOP) Nurse [facility] 12-03-2021 Covid (Pfizer) Dr. Ruiz Vega DO Work Phone: [facility] 12-03-2021 COVID-19 original vaccine, age 12+ yr, monovalent (PFIZER-BIONTECH - MARTINEZ TOP) Nurse [facility] 06-12-2021 meningococcal polysaccharide (groups A, C, Y and W-135) diphtheria toxoid conjugate vaccine (MCV4P) Que Chavez MD Work Phone: [facility] Work Phone: 06-12-2021 tetanus toxoid, redu monique diphtheria toxoid, and acellular pertussis vaccine, adsorbed Que Chavez MD Work Phone: [facility] Work Phone: 06-12-2021 Meningococcal, MCV4, unspecified conjugate formulation(groups A, C, Y and W-135) Que Chavez MD Work Phone: [facility] Work Phone: 04-27-2019 Human Papillomavirus 9-valent vaccine Que Chavez MD Work Phone: [facility] 04-27-2019 influenza, injectabl e, quadrivalent, preservative free Que Chavez MD Work Phone: [facility] 04-27-2019 influenza virus vacc ine, unspecified formulation Sommer Hernandez PA-C Work Phone: [facility] 01-07-2010 hepatitis A vaccine, pediatric/adolescent dosage, 2 dose schedule Que Chavez MD Work Phone: [facility] Work Phone: 01-07-2010 influenza, seasonal, injectable Que Chavez MD Work Phone: [facility] 11-03-2009 poliovirus vaccine, inactivated Que Chavez MD Work Phone: [facility] 10-27-2009 diphtheria, tetanus toxoids and acellular pertussis vaccine Que Chavez MD Work Phone: [facility] 10-27-2009 measles, mumps, rube lla, and varicella virus vaccine Que Chavez MD Work Phone: [facility] 10-27-2009 poliovirus vaccine, unspecified formulation Que Chavez MD Work Phone: [facility] Work Phone: 12-03-2008 Diphtheria, tetanus toxoids and acellular pertussis vaccine, and poliovirus vaccine, inactivated Que Chavez MD Work Phone: [facility] Work Phone: 12-03-2008 influenza, seasonal, injectable Que Chavez MD Work Phone: [facility] 12-03-2008 measles, mumps and rubella virus vaccine Que Chavez MD Work Phone: [facility] Work Phone: 10-03-2006 diphtheria, tetanus toxoids and acellular pertussis vaccine Que Chavez MD Work Phone: [facility] Work Phone: 10-03-2006 haemophilus influenz ae type b vaccine, HbOC conjugate Que Chavez MD Work Phone: [facility] 10-03-2006 measles, mumps, rube lla, and varicella virus vaccine Que Chavez MD Work Phone: [facility] Work Phone: 10-03-2006 pneumococcal conjuga te vaccine, 7 valent Que Chavez MD Work Phone: [facility] Work Phone: 06-17-2005 diphtheria, tetanus toxoids and acellular pertussis vaccine Que Chavez MD Work Phone: [facility] Work Phone: 06-17-2005 haemophilus influenz ae type b vaccine, HbOC conjugate Que Chavez MD Work Phone: [facility] 06-17-2005 pneumococcal conjuga te vaccine, 7 valent Que Chavez MD Work Phone: [facility] Work Phone: 06-17-2005 poliovirus vaccine, inactivated Que Chavez MD Work Phone: [facility] Work Phone: 05-06-2005 DTaP-hepatitis B and poliovirus vaccine Que Chavez MD Work Phone: [facility] Work Phone: 05-06-2005 haemophilus influenz ae type b vaccine, HbOC conjugate Que Chavez MD Work Phone: [facility] 05-06-2005 pneumococcal conjuga te vaccine, 7 valent Que Chavez MD Work Phone: [facility] Work Phone: 2004 DTaP-hepatitis B and poliovirus vaccine Que Chavez MD Work Phone: [facility] Work Phone: 2004 haemophilus influenz ae type b vaccine, HbOC conjugate Que Chavez MD Work Phone: [facility] 2004 pneumococcal conjuga te vaccine, 7 valent Que Chavez MD Work Phone: [facility] Work Phone: 2004 hepatitis B vaccine, pediatric or pediatric/adolescent dosage Que Chavez MD Work Phone: [facility] Payers Date Payer Category Payer Self-pay 2022 Unknown [id number] 2021 Medicaid [place] [employer] [place] [employer] [id number] 2021-Present [phone] [facility] [address] [place] [id number] Medicaid [id number] 2021 Medicaid [id number] 2016 Medicaid [id number] 2016 Unknown [id number] Unknown [id number] Unknown [id number] Unknown [id number] Unknown [id number] Unknown [id number] Unknown [id number] Unknown [id number] Unknown [id number] Social History Date Type Detail Facility Start: 01-13-2021 End: 09-04-2024 Tobacco smoking status NHIS Never smoked tobacco [facility] Work Phone: Start: 01-13-2021 End: 10-28-2021 Tobacco use and exposure Smokeless tobacco non-user [facility] Work Phone: Start: 06-12-2021 End: 10-05-2024 Alcohol intake Current non-drinker of alcohol (finding) [facility] Start: 12-29-2017 End: 10-28-2021 Tobacco Comment Second hand smoke exposure [facility] Start: 2004 Sex Assigned At Female [facility] Start: 06-02-2021 End: 01-18-2022 Exposure to SARS-CoV-2 (event) Not sure [facility] Work Phone: Start: 07-13-2021 History SDOH Physical Activity DPW 2 [facility] Start: 07-13-2021 History SDOH Financial 4 [facility] Start: 07-13-2021 History SDOH Food Worry 1 [facility] Start: 10-05-2022 End: 08-23-2023 History of Social function [facility] Start: 10-05-2022 End: 08-23-2023 Tobacco use panel [facility] How hard is it for y ou to pay for the very basics like food, housing, medical care, and heating Not very hard [facility] (I/We) worried wheth er (my/our) food would run out before (I/we) got money to buy more. Never true [facility] In the past 12 month s, has lack of transportation kept you from medical appointments or from getting medications? No [facility] In the past 12 month s, was there a time when you were not able to pay the mortgage or rent on time? No [facility] Start: 12-29-2017 Gender identity Identifies as female gender (finding) [facility] Start: 12-29-2017 Sexual orientation Heterosexual (finding) [facility] Are you now , , , , never or living with a partner? Never [facility] How often to you hav e a drink containing alcohol? Never [facility] Do you feel stress - tense, restless, nervous, or anxious, or unable to sleep at night because your mind is troubled all the time - these days [OSQ] Not at all [facility] Start: 02-16-2024 Education 12 [facility] Start: 01-17-2024 [facility] Goals Date Patient Goal Desired Activity /State Personal health goal Mental Status Date Assessment Result Facility 09-04-2024 Cognitive function Awake;Alert;A ppropriate;Fol lows Commands [facility] Work Phone: Clinical Notes 08-09-2016 to 10-05-2024 Quick Notes - Delfina Watson APRN.CN - 10/05/2024 4:52 PM EDTCDelfina gonzalez APRN.CN - 10/05/2024 4:52 PM EDTPrenatal Quick Notes - Delfina Watson APRN.CN - 10/05/2024 4:52 PM EDT Note Date [...] discussed with the Patient or Patient's Authorized Physical Science Professor. As applicable, any other physician, advance practice provider, medical student, or other health professional student that will be observing or involved in the sensitive examination for educational or training purposes was discussed with the Patient or Authorized Physical Science Professor. The Patient or Authorized Physical Science Professor has agreed to proceed with the sensitive [...] RTO in one week Delfina Watson APRN.CNM [facility] 10-05-2024 Note HNO ID: [id number] Author: DELFINA WATSON APRN.CNM Service: ? Author Type: [employer] Type: Progress Notes Filed: 10/05/2024 16:56 Note Text: MEKA- [facility] 10-05-2024 History of Presen t illness Narrative MEKA- documented in this encounter [facility] 10-05-2024 Miscellaneous Notes Formattin g of this [...] discussed with the Patient or Patient's Authorized Physical Science Professor. As applicable, any other physician, advance practice provider, medical student, or other health professional student that will be observing or involved in the sensitive examination for educational or training purposes was discussed with the Patient or Authorized Physical Science Professor. The Patient or Authorized Physical Science Professor has agreed to proceed with the sensitive [...] Delfina Watson APRN.CNM documented in this encounter [facility] 10-05-2024 Instructions Karen Dimas MA - 10/05/2024 4:19 PM EDT SEQUENTIAL SCREENINGS The [facility] offers sequential screenings for women who are [...] It will require an appointment with our application support technician. This is not an ultrasound performed [...] the above symptoms, contact our office at [phone] and ask to speak with a nurse. After hours, you can call doctors registry at [phone] OR call [facility] at [phone] and ask to have the doctor application technician paged. If you consider this an emergency, dial 9-1-1 or go to your nearest emergency department. NEED HELP? Are you dealing with a violent or abusive relationship? Are you a victim of rape or sexual assult? Call [facility] ([place]) 24 hour Crisis Hotline: 466.304.2397 or 800-939-9183. MANUAL Your Guide to a Healthy manual is now on-line. Visit [email or web address] to download your free copy documented in this encounter [facility] 09-25-2024 Progress note Formatting of t his note might be different from the original. KJ - S: Amirah denies LOF or vaginal bleeding. She reports some irregular ctxs. O: 38w0d, see flow sheet SENSITIVE EXAM: The sensitive examination was discussed with the Patient or Patient's Authorized Physical Science Professor. As applicable, any other physician, advance practice provider, medical student, or other health professional student that will be observing or involved in the sensitive examination for educational or training purposes was discussed with the Patient or Authorized Physical Science Professor. The Patient or Authorized Physical Science Professor has agreed to proceed with the sensitive examination. (Sensitive examination includes inspection and/or palpation of the breasts, pelvis, prostate and anorectal regions). A/P: Assessment & Plan Supervision of high risk in third trimester (HCC) Orders: URINE OB DIP B/O 38 weeks gestation of (HCC) Orders: URINE OB DIP B/O Reviewed labor & FM precautions Janelle Marin MD [facility] 09-25-2024 Miscellaneous Notes Formattin g of this note might be different from the original. KJ - S: Amirah denies LOF or vaginal bleeding. She reports some irregular ctxs. O: 38w0d, see flow sheet SENSITIVE EXAM: The sensitive examination was discussed with the Patient or Patient's Authorized Physical Science Professor. As applicable, any other physician, advance practice provider, medical student, or other health professional student that will be observing or involved in the sensitive examination for educational or training purposes was discussed with the Patient or Authorized Physical Science Professor. The Patient or Authorized Physical Science Professor has agreed to proceed with the sensitive examination. (Sensitive examination includes inspection and/or palpation of the breasts, pelvis, prostate and anorectal regions). A/P: Assessment & Plan Supervision of high risk in third trimester (HCC) Orders: URINE OB DIP B/O 38 weeks gestation of (HCC) Orders: URINE OB DIP B/O Reviewed labor & FM precautions Janelle Marin MD documented in this encounter [facility] 09-25-2024 Instructions Cassie Abad MA - 09/25/2024 2:00 PM EDT SEQUENTIAL SCREENINGS The [facility] offers sequential screenings for women who are [...] It will require an appointment with our application support technician. This is not an ultrasound performed [...] the above symptoms, contact our office at [phone] and ask to speak with a nurse. After hours, you can call [facility] at [phone] OR call [facility] at [phone] and ask to have the doctor application technician paged. If you consider this an emergency, dial 9--1 or go to your nearest emergency department. NEED HELP? Are you dealing with a violent or abusive relationship? Are you a victim of rape or sexual assult? Call [facility] ([place]) 24 hour Crisis Hotline: 115.647.1252 or 238-860-0466. MANUAL Your Guide to a Healthy manual is now on-line. Visit [email or web address] to download your free copy documented in this encounter [facility] 09-18-2024 Progress note Formatting of t his note might be different from the original. SW- Pt doing well. No ctx, vb, lof. Good FM PE: Gen- NAD, well appearing Abd- Soft, gravid, NT See flowsheet A/p 37 wk gestation - GBS positive - Reviewed labor precautions - Weekly visits Alo Thompson DO [facility] 09-18-2024 Miscellaneous Notes Formattin g of this note might be different from the original. SW- Pt doing well. No ctx, vb, lof. Good FM PE: Gen- NAD, well appearing Abd- Soft, gravid, NT See flowsheet A/p 37 wk gestation - GBS positive - Reviewed labor precautions - Weekly visits Alo Thompson DO documented in this encounter [facility] 09-18-2024 Instructions Karen Dimas MA - 09/18/2024 1:22 PM EDT SEQUENTIAL SCREENINGS The [facility] offers sequential screenings for women who are [...] It will require an appointment with our application support technician. This is not an ultrasound performed [...] the above symptoms, contact our office at [phone] and ask to speak with a nurse. After hours, you can call doctors registry at [phone] OR call [facility] at [phone] and ask to have the doctor application technician paged. If you consider this an emergency, dial 9-1-2 or go to your nearest emergency department. NEED HELP? Are you dealing with a violent or abusive relationship? Are you a victim of rape or sexual assult? Call [facility] ([place]) 24 hour Crisis Hotline: 286.982.5601 or 236-000-3596. MANUAL Your Guide to a Healthy manual is now on-line. Visit [email or web address] to download your free copy documented in this encounter [facility] 09-12-2024 Note HNO ID: [id number] Author: CASTILLO MCKEON MD Service: ? Author Type: Physician Type: Progress Notes Filed: 09/12/2024 10:52 Note Text: RR- VB No. LOF No. CTXS some BH, crampy. no regular ctxs. Movement: present. Other c/o: heartburn not relived w/ tums Medication list reviewed. SENSITIVE EXAM: The sensitive examination was discussed with the Patient or Patient's Authorized Physical Science Professor. As applicable, any other physician, advance practice provider, medical student, or other health professional student that will be observing or involved in the sensitive examination for educational or training purposes was discussed with the Patient or Authorized Physical Science Professor. The Patient or Authorized Physical Science Professor has agreed to proceed with the sensitive examination. (Sensitive examination includes inspection and/or palpation of the breasts, pelvis, prostate and anorectal regions). Physical Exam See Flow Sheet Abd: soft, nontender, gravid Ext: edema: Trace A/P 36w1d Estimated Date of Delivery: 10/09/24 Assessment AND Plan 36 weeks gestation of (HCC) Orders: URINE OB DIP B/O ROUTINE, GROUP B STREPTOCOCCUS BY PCR Supervision of high risk in third trimester ([facility]) Orders: URINE OB DIP B/O Obesity affecting in third trimester, unspecified obesity type ([facility]) Orders: URINE OB DIP B/O Heartburn during in third trimester ([facility]) rx pepcid reviewed urine dip. Brief US confirms vtx f/u 1 week or prn Castillo Mckeon M.D. [facility] 09-12-2024 History of Presen t illness Narrative RR- VB No. LOF No. CTXS some BH, crampy. no regular ctxs. Movement: present. Other c/o: heartburn not relived w/ tums Medication list reviewed. SENSITIVE EXAM: The sensitive examination was discussed with the Patient or Patient's Authorized Physical Science Professor. As applicable, any other physician, advance practice provider, medical student, or other health professional student that will be observing or involved in the sensitive examination for educational or training purposes was discussed with the Patient or Authorized Physical Science Professor. The Patient or Authorized Physical Science Professor has agreed to proceed with the sensitive examination. (Sensitive examination includes inspection and/or palpation of the breasts, pelvis, prostate and anorectal regions). Physical Exam See Flow Sheet Abd: soft, nontender, gravid Ext: edema: Trace A/P 36w1d Estimated Date of Delivery: 10/09/24 Assessment & Plan 36 weeks gestation of (HCC) Orders: URINE OB DIP B/O ROUTINE, GROUP B STREPTOCOCCUS BY PCR Supervision of high risk in third trimester ([facility]) Orders: URINE OB DIP B/O Obesity affecting in third trimester, unspecified obesity type ([facility]) Orders: URINE OB DIP B/O Heartburn during in third trimester ([facility]) rx pepcid reviewed urine dip. Brief US confirms vtx f/u 1 week or prn Castillo Mckeon M.D. documented in this encounter [facility] 09-12-2024 Instructions Leah Villaseñor MA - 09/12/2024 10:14 AM EDT SEQUENTIAL SCREENINGS The [facility] offers sequential screenings for women who are [...] It will require an appointment with our application support technician. This is not an ultrasound performed [...] the above symptoms, contact our office at [phone] and ask to speak with a nurse. After hours, you can call doctors registry at [phone] OR call [facility] at [phone] and ask to have the doctor application technician paged. If you consider this an emergency, dial 9-1-5 or go to your nearest emergency department. NEED HELP? Are you dealing with a violent or abusive relationship? Are you a victim of rape or sexual assult? Call [facility] ([place]) 24 hour Crisis Hotline: 850.156.8322 or 754-522-0926. MANUAL Your Guide to a Healthy manual is now on-line. Visit [email or web address]/HealthyPre gnancyGuide to download your free copy documented in this encounter [facility] 09-04-2024 Telephone encount er Note Noted. Thanks! Janelle Marin MD [facility] 09-04-2024 Miscellaneous Notes Formattin g of this note might be different from the original. Noted. Thanks! Janelle Marin MD Spoke with in ED. All work up normal. Patient D/Cd home. Delfina Watson APRN.CNM documented in this encounter [facility] 09-04-2024 Telephone encount er Note Spoke with in ED. All work up normal. Patient D/Cd home. Delfina Watson APRN.CNM [facility] 09-04-2024 Discharge summary [facility] 09-04-2024 Radiology Diagnostic study note [facility] Imaging Services [address] [place] [address] CTA Chest W/WO Contrast MR#: [id number] Acct: [id number] Name: AMIRAH WOODARD Rep #: [id number] : 2005 F 19 From: Gatito Moreno MD PCP: Dr. Ruiz Vega, DO Status: RE G ER Study:CTA Chest W/WO Contrast Date of Exam: 09/04/24 Exam# [id number] Ordering Dr: Raisa Richardson MD PROCEDURE: CTA [...] dissection No acute pulmonary process Reading Location: [id number] CC: Dr. Conrado Richardson MD; Dr. Ruiz Vega, DO ~ [place] Former: Signed [facility] 09-04-2024 Telephone encounter Note Patient should be in ED at this time. No concern about urine dip. Janelle Marin MD [facility] 09-04-2024 Miscellaneous Notes Patient should be in ED at this time. No concern about urine dip. Janelle Marin MD documented in this encounter [facility] 09-04-2024 Progress note Formatting of t his note might be different from the original. KJ - S: Patient seen urgently for heart racing and Shortness of Breath that started this morning. Denies fevers/chils. Neelimandolyn denies LOF, contractions or vaginal bleeding. She [...] Orders: URINE OB DIP B/O Patient to [facility] for eval of tachycardia and Shortness of Breath. No evidence labor. Janelle Marin MD [facility] 09-04-2024 Miscellaneous Notes KJ - S: Patient seen urgently for heart racing and Shortness of Breath that started this morning. Denies fevers/chils. Amirah denies LOF, contractions or vaginal bleeding. She reports stable cramps. O: 35w0d, see flow sheet SENSITIVE EXAM: Sensitive exam not performed. A/P: Assessment & Plan Supervision of high risk in third trimester ([facility]) Orders: URINE OB DIP B/O Obesity affecting in third trimester, unspecified obesity type ([facility]) Orders: URINE OB DIP B/O 35 weeks gestation of ([facility]) Orders: URINE OB DIP B/O Patient to [facility] for eval of tachycardia and Shortness of Breath. No evidence labor. Janelle Marin MD documented in this encounter [facility] 09-04-2024 Instructions Cassie Abad MA - 09/04/2024 9:30 AM EDT SEQUENTIAL SCREENINGS The [facility] offers sequential screenings for women who are [...] It will require an appointment with our application support technician. This is not an ultrasound performed [...] the above symptoms, contact our office at [phone] and ask to speak with a nurse. After hours, you can call doctors registry at [phone] OR call [facility] at [phone] and ask to have the doctor application technician paged. If you consider this an emergency, dial 9-1-4 or go to your nearest emergency department. NEED HELP? Are you dealing with a violent or abusive relationship? Are you a victim of rape or sexual assult? Call [facility] ([place]) 24 hour Crisis Hotline: 300.520.9491 or 528-602-9176. MANUAL Your Guide to a Healthy manual is now on-line. Visit [email or web address] See to download your free copy documented in this encounter [facility] 08-30-2024 Progress note Formatting of t his note might be different from the original. S: Amirah Woodard is a 19 year old female who presents at 34 weeks gestation for a routine visit. Positive movements. 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 Requesting to [...] GERRI with GBS La Del Castillo APRN.CNM [facility] Work Phone: 08-30-2024 Miscellaneous Notes S: Amirah Woodard is a 19 year old female who presents at 34 weeks gestation for a routine visit. Positive movements. 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 Requesting to [...] Del Castillo APRN.CNM documented in this encounter [facility] 08-30-2024 Instructions La Del Castillo APRN.CNM - 08/30/2024 2:46 PM EDT Images from the original note were not included. SEQUENTIAL SCREENINGS The [facility] offers sequential screenings for women who are [...] It will require an appointment with our application support technician. This is not an ultrasound performed [...] make an easy pie crust in the food service clerk. Add soaked dates to homemade nut butter for a sweet treat. Add dates to casandra homemade salad dressing. Add dates during easily with these yummy (paleo friendly) bars made from dates. What Is Red Raspberry [place] Tea? Red raspberry leaf tea comes from [...] , and too. How Much Red Raspberry [place] Tea to Drink? With your doctor or boom truck driver s approval, start with 1 cup of [...] because of uterine cramping. Is Red Raspberry [place] Tea the Same as Raspberry [place] Tea? How About Plain Old Raspberry Tea? Sometimes. You really need to look at the ingredients to be sure. Note that there is no difference between red raspberry leaf and raspberry leaf. LOG607 or [employer] Raspberry [place] Tea are two good brands. The red [...] of RRLT outlined in this article. [employer] www.Jada Beauty I named this 'circuit' after my friend [...] in your head. Step Three: Moving and Janel Lungmiya, walk stairs facing sideways, 2 at a time, (have a house furnishings supervisor downstairs of you!), take a walk outside [...] your knee, that closes the pelvis. Katey Harris: Circuit Creator - www.[employer] Incundbirthcollective.[employer] Nicolette Heaton, LEONEL, BDT (MARIANN), LCCE, FACCE: Supporting Content - www.Zet UniversejazExpect Labsdayana.[employer] Lindsey Griffith: Photography - www.[employer]Accera Meghna Green CD/CDT (NICHOLAS): Print and Infrastructure Director - www.[employer] www.Jada [employer] SIGNS AND SYMPTOMS OF LABOR 1. Contractions every 10 minutes or more often 2. Clear, pink, or brownish fluid (water) leaking from vagina 3. Feeling that baby is pushing down, pressure 4. Low, dull backache 5. Cramps that feel like a period 6. Cramps with or without diarrhea If you notice any of the above symptoms, contact our office at [phone] and ask to speak with a nurse. After hours, you can call doctors registry at [phone] OR call [facility] at [phone] and ask to have the doctor application technician paged. If you consider this an emergency, dial 9-1- or go to your nearest emergency department. NEED HELP? Are you dealing with a violent or abusive relationship? Are you a victim of rape or sexual assult? Call [facility] ([place]) 24 hour Crisis Hotline: 625.817.3858 or 715-796-4057. MANUAL Your Guide to a Healthy manual is now on-line. Visit [email or web address]/HealthyPregnan See to download your free copy documented in this encounter [facility] 08-16-2024 Progress note Formatting of t his [...] Supervision of high risk in third trimester ([facility]) - ICD9: V23.9, ICD10: O09.93 (primary diagnosis) - Continue PNV and LDA 2. 32 weeks gestation of ([facility]) - ICD9: V22.2, ICD10: Z3A.32 - Discussed field care manager, support band, gentle stretching for musculoskeletal pain - Discussed signs of Florin Tan - increase hydration 3. Obesity affecting in third trimester, unspecified obesity type ([facility]) - ICD9: 649.13, ICD10: O99.213 - Pre BMI 31 PTL precautions and kick counts reviewed. RTO in 2 weeks or sooner as needed. Lindsey Moreno APRN.ENVIRONMENTAL SCIENCE INSTRUCTOR [facility] 08-16-2024 Miscellaneous Notes EH - S: Amirah [...] Supervision of high risk in third trimester ([facility]) - ICD9: V23.9, ICD10: O09.93 (primary diagnosis) - Continue PNV and LDA 2. 32 weeks gestation of ([facility]) - ICD9: V22.2, ICD10: Z3A.32 - Discussed field care manager, support band, gentle stretching for musculoskeletal pain - Discussed signs of Florin Tan - increase hydration 3. Obesity affecting in third trimester, unspecified obesity type (HCC) - ICD9: 649.13, ICD10: O99.213 - Pre BMI 31 PTL precautions and kick counts reviewed. RTO in 2 weeks or sooner as needed. Lindsey Moreno APRN.ENVIRONMENTAL SCIENCE INSTRUCTOR documented in this encounter [facility] 08-16-2024 Instructions Yumiko Meza MA - 08/16/2024 2:22 PM EDT SEQUENTIAL SCREENINGS The [facility] offers sequential screenings for women who are [...] It will require an appointment with our application support technician. This is not an ultrasound performed [...] the above symptoms, contact our office at [phone] and ask to speak with a nurse. After hours, you can call doctors registry at [phone] OR call [facility] at [phone] and ask to have the doctor application technician paged. If you consider this an emergency, dial or go to your nearest emergency department. NEED HELP? Are you dealing with a violent or abusive relationship? Are you a victim of rape or sexual assult? Call [facility] ([place]) 24 hour Crisis Hotline: 208.565.2823 or 989-638-3125. MANUAL Your Guide to a Healthy manual is now on-line. Visit [email or web address]/HealthyPregnan See to download your free copy documented in this encounter [facility] 08-13-2024 Note HNO ID: [id number] Author: RUIZ VEGA, DO Service: ? Author Type: Physician Type: Progress Notes Filed: 08/13/2024 10:11 Note Text: Pennie Woodard is a 19-year-old female, 1 para 0, presenting for an initial visit and evaluation of -related symptoms. : - Currently 31-32 weeks gestation with a male fetus; ANA: October 09. - First . - care managed by Dr. Mckeon and team; next appointment scheduled with Rhonda. - Planning a vaginal delivery at [place]. - Taking vitamins; denies nausea or emesis. 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 Recording using Quisk software for draft documentation of the visit was discussed with the patient/authorized office services representative; all questions welcomed and answered. Patient/authorized office services representative agreed to proceed [facility] 08-13-2024 History of Present illness Narrative Pennie Woodard is a 19-year-old female, 1 para 0, presenting for an initial visit and evaluation of -related symptoms. : - Currently 31-32 weeks gestation with a male fetus; ANA: October 09. - First . - care managed by Dr. Mckeon and team; next appointment scheduled with Lindsey and La. - Planning a vaginal delivery at [place]. - Taking vitamins; denies nausea or emesis. 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 Recording using Quisk software for draft documentation of the visit was discussed with the patient/authorized office services representative; all questions welcomed and answered. Patient/authorized office services representative agreed to proceed documented in this encounter [facility] 08-08-2024 Telephone encounter Note Order signed and faxed. Caroline Mora RN [facility] 08-08-2024 Miscellaneous Notes Order signed and faxed. Caroline Mora RN Breast pump request received from [employer] [facility] Order to provider to sign. Caroline Mora RN documented in this encounter [facility] 08-06-2024 Telephone encounter Note Breast pump request received from [employer] ([facility] Order to provider to sign. Caroline Mora RN [facility] 08-03-2024 Telephone encounter Note 3rd risk assessment form submitted 08/03/24 Tio Hutchison RN [facility] 08-03-2024 Miscellaneous Notes 3rd risk assessment form submitted 08/03/24 Tio Hutchison RN documented in this encounter [facility] 08-01-2024 Progress note Formatting of t his [...] high risk in third trimester (HCC) Orders: COMPLETE BLOOD COUNT AND DIFFERENTIAL; Future COMPREHENSIVE METABOLIC PANEL; Future BILE ACIDS, TOTAL; Future 30 weeks gestation of (HCC) Orders: COMPLETE BLOOD COUNT AND DIFFERENTIAL; Future [...] (HCC) Allergic rhinitis, unspecified seasonality, unspecified trigger Castillo Mckeon M.D. [facility] 08-01-2024 Miscellaneous Notes RR- VB No. LOF [...] Supervision of high risk in third trimester ([facility]) Orders: COMPLETE BLOOD COUNT AND DIFFERENTIAL; Future COMPREHENSIVE METABOLIC PANEL; Future BILE ACIDS, TOTAL; Future 30 weeks gestation of (HCC) Orders: COMPLETE BLOOD COUNT AND DIFFERENTIAL; Future [...] (HCC) Allergic rhinitis, unspecified seasonality, unspecified trigger Castillo Mckeon M.D. documented in this encounter [facility] 07-20-2024 Note HNO ID: [id number] Author: LINDSEY MORENO APRN.ENVIRONMENTAL SCIENCE INSTRUCTOR Service: ? Author Type: Nurse Practitioner Type: [...] Supervision of high risk in third trimester ([facility]) - ICD9: V23.9, ICD10: O09.93 (primary diagnosis) - Continue PNV and LDA 2. 28 weeks gestation of ([facility]) - ICD9: V22.2, ICD10: Z3A.28 - 1 hour GCT, CBC, and RPR today - Rh positive - Declines TDAP - LARC form reviewed and signed. Declines. - Depression screen negative - Opioid screen negative - plan form discussed and given to Amirah - Reviewed how to pre register through [facility] - Planning Paragard during period 3. Obesity affecting in third trimester, unspecified obesity type ([facility]) - ICD9: 649.13, ICD10: O99.213 - Pre BMI 32 4. Vaginal discharge during in third trimester ([facility]) - ICD9: 646.83, 623.5, ICD10: O26.893, N89.8 - BACTERIAL VAGINOSIS NAAT - FRANCO/TRICHOMONAS NAAT PTL precautions and kick counts reviewed. RTO in 2 weeks or sooner as needed. Lindsey Moreno APRN.ENVIRONMENTAL SCIENCE INSTRUCTOR [facility] 07-20-2024 History of Present illness Narrative EH [...] Supervision of high risk in third trimester ([facility]) - ICD9: V23.9, ICD10: O09.93 (primary diagnosis) - Continue PNV and LDA 2. 28 weeks gestation of (HCC) - ICD9: V22.2, ICD10: Z3A.28 - 1 hour GCT, CBC, and RPR today - Rh positive - Declines TDAP - LARC form reviewed and signed. Declines. - Depression screen negative - Opioid screen negative - plan form discussed and given to Amirah - Reviewed how to pre register through [facility] - Planning Paragard during period 3. Obesity affecting in third trimester, unspecified obesity type ([facility]) - ICD9: 649.13, ICD10: O99.213 - Pre BMI 32 4. Vaginal discharge during in third trimester ([facility]) - ICD9: 646.83, 623.5, ICD10: O26.893, N89.8 - BACTERIAL VAGINOSIS NAAT - FRANCO/TRICHOMONAS NAAT PTL precautions and kick counts reviewed. RTO in 2 weeks or sooner as needed. Lindsey Moreno APRN.ENVIRONMENTAL SCIENCE INSTRUCTOR documented in this encounter [facility] 07-20-2024 Instructions Yumiko Meza MA - 07/20/2024 8:16 AM EDT SEQUENTIAL SCREENINGS The [facility] offers sequential screenings for women who are [...] It will require an appointment with our application support technician. This is not an ultrasound performed [...] the above symptoms, contact our office at [phone] and ask to speak with a nurse. After hours, you can call doctors registry at [phone] OR call [facility] at [phone] and ask to have the doctor application technician paged. If you consider this an emergency, dial 9-1-3 or go to your nearest emergency department. NEED HELP? Are you dealing with a violent or abusive relationship? Are you a victim of rape or sexual assult? Call [facility] ([place]) 24 hour Crisis Hotline: 295.664.2966 or 320-201-3654. MANUAL Your Guide to a Healthy manual is now on-line. Visit [email or web address]/HealthyPregnan See to download your free copy documented in this encounter [facility] 07-19-2024 Telephone encounter Note noted. thanks. Castillo Mckeon MD [facility] Work Phone: 07-19-2024 Miscellaneous Notes noted. thanks. [...] first. Updated H&P faxed to L&D. Kia Sheldon, JIA documented in this encounter [facility] 07-19-2024 Telephone encounter Note 28w2d Patient called [...] first. Updated H&P faxed to L&D. Kia Sheldon, RN [facility] 07-09-2024 Telephone encounter Note agree [facility] Work Phone: 07-09-2024 Miscellaneous Notes agree documented in this encounter [facility] 06-21-2024 Progress note Formatting of t his [...] before next visit La Del Castillo APRN.CNM [facility] 06-21-2024 Miscellaneous Notes S: Amirah Woodard is [...] Del Castillo APRN.CNM documented in this encounter [facility] 06-21-2024 Instructions Shree Santos MA - 06/21/2024 1:02 PM EDT SEQUENTIAL SCREENINGS The [facility] offers sequential screenings for women who are [...] It will require an appointment with our application support technician. This is not an ultrasound performed [...] the above symptoms, contact our office at [phone] and ask to speak with a nurse. After hours, you can call [employer] registry at [phone] OR call [facility] at [phone] and ask to have the doctor application technician paged. If you consider this an emergency, dial 11-05-2 or go to your nearest emergency department. NEED HELP? Are you dealing with a violent or abusive relationship? Are you a victim of rape or sexual assult? Call [facility] ([place]) 24 hour Crisis Hotline: 376.481.2082 or 324-130-8219. MANUAL Your Guide to a Healthy manual is now on-line. Visit [email or web address] See to download your free copy documented in this encounter [facility] 06-19-2024 Progress note Formatting of t his [...] Assessment & Plan 24 weeks gestation of (HCC) Orders: GESTATIONAL GLUCOSE SCREEN, 1-HOUR, 50 GRAM, NON-FASTING; Future SYPHILIS TREPONEMAL W/REFLEX; Future ANEMIA REFLEX PANEL; Future Obesity in ([facility]) Screening for diabetes mellitus Orders: GESTATIONAL GLUCOSE SCREEN, 1-HOUR, 50 GRAM, NON-FASTING; Future Advised on musculoskeletal pain in . Discussed if any CP/SOB should call immediately. Janelle Mairn MD [facility] 06-19-2024 Miscellaneous Notes KJ - S: Amirah denies LOF, contractions or vaginal bleeding. She reports some discomfort in her upper abdomen and wonders if it is from the baby growing and pushing up. Also has more trouble taking a deep breath. She denies hearburn. O: 24w0d, see flow sheet SENSITIVE EXAM: Sensitive exam not performed. A/P: Assessment & Plan 24 weeks gestation of (HCC) Orders: GESTATIONAL GLUCOSE SCREEN, 1-HOUR, 50 GRAM, NON-FASTING; Future SYPHILIS TREPONEMAL W/REFLEX; Future ANEMIA REFLEX PANEL; Future Obesity in ([facility]) Screening for diabetes mellitus Orders: GESTATIONAL GLUCOSE SCREEN, 1-HOUR, 50 GRAM, NON-FASTING; Future Advised on musculoskeletal pain in . Discussed if any CP/SOB should call immediately. Janelle Marin MD documented in this encounter [facility] 06-19-2024 Instructions Yumiko Meza MA - 06/19/2024 2:34 PM EDT SEQUENTIAL SCREENINGS The [facility] offers sequential screenings for women who are [...] It will require an appointment with our application support technician. This is not an ultrasound performed [...] the above symptoms, contact our office at [phone] and ask to speak with a nurse. After hours, you can call doctors registry at [phone] OR call [facility] at [phone] and ask to have the doctor application technician paged. If you consider this an emergency, dial 9-- or go to your nearest emergency department. NEED HELP? Are you dealing with a violent or abusive relationship? Are you a victim of rape or sexual assult? Call [facility] ([place]) 24 hour Crisis Hotline: 979.187.2469 or 783-650-8632. MANUAL Your Guide to a Healthy manual is now on-line. Visit [email or web address] cyGuide to download your free copy documented in this encounter [facility] 06-06-2024 Progress note Formatting of t his [...] scheduled OB visit La Del Castillo APRN.CNM [facility] 06-06-2024 Miscellaneous Notes S: Amirah Woodard is [...] Del Castillo APRN.CNM documented in this encounter [facility] 06-06-2024 Shree Beltran MA - 06/06/2024 1:06 PM EDT SEQUENTIAL SCREENINGS The [facility] offers sequential screenings for women who are [...] It will require an appointment with our application support technician. This is not an ultrasound performed [...] the above symptoms, contact our office at [phone] and ask to speak with a nurse. After hours, you can call doctors registry at [phone] OR call [facility] at [phone] and ask to have the doctor application technician paged. If you consider this an emergency, dial 7-7-3 or go to your nearest emergency department. NEED HELP? Are you dealing with a violent or abusive relationship? Are you a victim of rape or sexual assult? Call [facility] ([place]) 24 hour Crisis Hotline: 454.478.2744 or 139-883-1106. MANUAL Your Guide to a Healthy manual is now on-line. Visit [email or web address] See to download your free copy documented in this encounter [facility] 06-06-2024 Telephone encounter Note 22w1d Patient called in and stated she is at work today and having more florin tan contractions. Concerned because they are uncomfortable with vaginal pressure. She has had 7 since being at work at 7am lasting from 30-60 seconds each. No bleeding or leaking fluid. She has been having more vaginal discharge that is thinner in consistency. Offered appt today and patient accepted. Vivian Adams RN [facility] 06-06-2024 Miscellaneous Notes 22w1d Patient called in and stated she is at work today and having more florin tan contractions. Concerned because they are uncomfortable with vaginal pressure. She has had 7 since being at work at 7am lasting from 30-60 seconds each. No bleeding or leaking fluid. She has been having more vaginal discharge that is thinner in consistency. Offered appt today and patient accepted. Vivian Adams RN documented in this encounter [facility] 05-28-2024 Telephone encounter Note 2nd risk assessment form submitted 05/28/24 Tio Hutchison RN [facility] 05-28-2024 Miscellaneous Notes 2nd risk assessment form submitted 05/28/24 Tio Hutchison RN documented in this encounter [facility] 05-25-2024 Progress note Formatting of t his [...] ICD9: V22.2, ICD10: Z3A.20 Kia Lucero MD [facility] 05-25-2024 Miscellaneous Notes S: Amirah Woodard is a [...] Kia Lucero MD documented in this encounter [facility] 05-25-2024 Instructions Cassie Abad MA - 05/25/2024 2:03 PM EDT SEQUENTIAL SCREENINGS The [facility] offers sequential screenings for women who are [...] It will require an appointment with our application support technician. This is not an ultrasound performed [...] the above symptoms, contact our office at [phone] and ask to speak with a nurse. After hours, you can call doctors registry at [phone] OR call [facility] at [phone] and ask to have the doctor application technician paged. If you consider this an emergency, dial 9-1-7 or go to your nearest emergency department. NEED HELP? Are you dealing with a violent or abusive relationship? Are you a victim of rape or sexual assult? Call [facility] ([place]) 24 hour Crisis Hotline: 789.359.7988 or 647-244-1357. MANUAL Your Guide to a Healthy manual is now on-line. Visit [email or web address] See to download your free copy documented in this encounter [facility] 05-01-2024 Telephone encounter Note Left message for patient to call office. Kia Sheldon RN [facility] 05-01-2024 Miscellaneous Notes Left message for patient to call office. Kia Sheldon, RN Noted & agree with recommendations. If patient has increased LOF tonight I recommend going to [facility]. Janelle Marin MD 17w0d Calling concerned [...] Vivian Adams RN documented in this encounter [facility] 05-01-2024 Telephone encounter Note Noted & agree with recommendations. If patient has increased LOF tonight I recommend going to [facility]. Janelle Marin MD [facility] Work Phone: 05-01-2024 Telephone encounter Note 17w0d [...] with it. Please advise. Vivian Adams RN [facility] 04-27-2024 Progress note Formatting of t his [...] RTO in 4 weeks Delfina Watson APRN.CNM [facility] 04-27-2024 Miscellaneous Notes MEKA-S: Amirah Woodrad is a 18 year old female who [...] Delfina Watson APRN.CNM documented in this encounter [facility] 04-27-2024 Instructions Shree Santos MA - 04/27/2024 1:04 PM EST SEQUENTIAL SCREENINGS The [facility] offers sequential screenings for women who are [...] It will require an appointment with our application support technician. This is not an ultrasound performed [...] the above symptoms, contact our office at [phone] and ask to speak with a nurse. After hours, you can call doctors registry at [phone] OR call [facility] at [phone] and ask to have the doctor application technician paged. If you consider this an emergency, dial 9-1-1 or go to your nearest emergency department. NEED HELP? Are you dealing with a violent or abusive relationship? Are you a victim of rape or sexual assult? Call [facility] ([facility] 24 hour Crisis Hotline: 167.162.4075 or 403-586-8459. MANUAL Your Guide to a Healthy manual is now on-line. Visit [email or web address] See to download your free copy documented in this encounter [facility] 04-13-2024 Telephone encounter Note Patient notified and voiced understanding. Caroline Mora RN [facility] 04-13-2024 Miscellaneous Notes Patient notified and voiced [...] Marisela Lopez RN documented in this encounter [facility] 04-13-2024 Telephone encounter Note Agree with plan of care. May try wearing compression stockings if on feet as well. This can help with blood flow back to to heart/head. La Del Castillo APRN.CNM [facility] Work Phone: 04-13-2024 Telephone encounter Note 14w3d [...] appt isn't until 04/27/24. Please advise. Marisela Lopez, RN [facility] 04-10-2024 Telephone encounter Note Refill provided. Has adult medicine appointment in August. Thanks. Josiane Goodwin APRN.ENVIRONMENTAL SCIENCE INSTRUCTOR [facility] 04-10-2024 Miscellaneous Notes Refill provided. Has adult medicine appointment in August. Thanks. Josiane Goodwin APRN.ENVIRONMENTAL SCIENCE INSTRUCTOR Last [facility]: 10/31/2023 Verify RX Benefits Completed [...] Eloisa Suarez LPN documented in this encounter [facility] 04-10-2024 Telephone encounter Note Last [facility]: 10/31/2023 Verify RX Benefits Completed Last medication [...] season) due on 11/06/2023 Eloisa Suarez LPN [facility] 04-03-2024 Progress note Formatting of t his [...] RTO in 4 weeks Delfina Watson APRN.CNM [facility] 04-03-2024 Miscellaneous Notes MEKAUrbanoS: Amirah Woodard is a 18 year old [...] Delfina Watson APRN.CNM documented in this encounter [facility] 04-03-2024 Instructions Leah Villaseñor MA - 04/03/2024 3:53 PM EST SEQUENTIAL SCREENINGS The [facility] offers sequential screenings for women who are [...] It will require an appointment with our application support technician. This is not an ultrasound performed [...] the above symptoms, contact our office at [phone] and ask to speak with a nurse. After hours, you can call doctors registry at [phone] OR call [facility] at [phone] and ask to have the doctor application technician paged. If you consider this an emergency, dial 91- or go to your nearest emergency department. NEED HELP? Are you dealing with a violent or abusive relationship? Are you a victim of rape or sexual assult? Call [facility] ([place]) 24 hour Crisis Hotline: 128.340.3036 or 362-986-3879. MANUAL Your Guide to a Healthy manual is now on-line. Visit [email or web address] See to download your free copy documented in this encounter [facility] 03-28-2024 Progress note Formatting of t his [...] culture collected and submitted. RTO 04/03 routine [facility] Clinical yeast infection - tx monistat. Duncan Munguia MD [facility] Work Phone: 03-28-2024 Miscellaneous Notes Primigravida at 12 weeks c/o vaginal itching and burning subsequent to a course of amoxicillin for a sinus infection. Sx began 5 days after beginning tx. Denies vaginal bleeding and slightly increased discharge Pelvic exam. 12 week uterus. moderate clumpy white discharge. Yeast culture collected and submitted. RTO 04/03 routine [facility] Clinical yeast infection - tx monistat. Duncan Munguia MD documented in this encounter [facility] 03-28-2024 Instructions Yumiko Meza MA - 03/28/2024 9:08 AM EST SEQUENTIAL SCREENINGS The [facility] offers sequential screenings for women who are [...] It will require an appointment with our application support technician. This is not an ultrasound performed [...] the above symptoms, contact our office at [phone] and ask to speak with a nurse. After hours, you can call doctors registry at [phone] OR call [facility] at [phone] and ask to have the doctor application technician paged. If you consider this an emergency, dial -4 or go to your nearest emergency department. NEED HELP? Are you dealing with a violent or abusive relationship? Are you a victim of rape or sexual assult? Call [facility] ([facility] 24 hour Crisis Hotline: 428.122.4918 or 404-478-7603. MANUAL Your Guide to a Healthy manual is now on-line. Visit [email or web address] to download your free copy documented in this encounter [facility] 03-22-2024 Telephone encounter Note Patient notified and voiced understanding. Caroline Mora RN [facility] 03-22-2024 Miscellaneous Notes Patient notified and voiced understanding. Caroline Mora RN Yes. La Del Castillo APRN.CNM Patient 11w2d calling with questions in regards to medication she was prescribed for a sinus infection. Patient was prescribed Amoxicillin 1000 mg BID. Patient wanting to know if that dosage is ok with . Caroline Mora RN documented in this encounter [facility] 03-22-2024 Telephone encounter Note Yes. La Del Castillo APRN.CNM [facility] Work Phone: 03-22-2024 Telephone encounter Note Patient 11w2d calling with questions in regards to medication she was prescribed for a sinus infection. Patient was prescribed Amoxicillin 1000 mg BID. Patient wanting to know if that dosage is ok with . Caroline Mora RN [facility] 03-19-2024 Note HNO ID: [id number] Author: JOSIANE GOODWIN APRN.ENVIRONMENTAL SCIENCE INSTRUCTOR Service: ? Author Type: Nurse Practitioner Type: [...] provider while in office today. Josiane Goodwin APRN.[facility] 03-19-2024 History of Present illness Narrative PEDIATRIC SICK VISIT SUBJECTIVE: Amirah Woodard is a 18 year old Patient presents with: Cough: X 1.5 wks referral to adult doctor: Currently 11 wks History was obtained from: patient and EMR Current symptoms: Was at [facility] last week Has shortness of breath Mucous Coming up all the time, not just with coughing Cough for about a week Sometimes dry Sometimes productive No XR Did run strep at [facility] and that was negative Coughing will not [...] provider while in office today. Josiane Goodwin APRN.JOSELYN documented in this encounter [facility] 03-13-2024 Note HNO ID: [id number] Author: ROBERTO POWERS PA-C Service: ? Author Type: Physician Design Maker Type: Progress Notes Filed: 03/13/2024 12:33 Note Text: This note was created using NoteWriter. Subjective Shahzadkira Woodard is a 18 year old female. [...] the patient was advised to see her INSPECTING AND TESTING LEAD HAND for further evaluation and management. CLINICAL IMPRESSION: Sore Throat ASSESSMENT/PLAN: 1. Sore throat - ICD9: 462, ICD10: J02.9 - STREP A MOLECULAR (POC) Roberto Powers PA-C [facility] 03-13-2024 History of Present illness Narrative This note was created using [employer]. Subjective Amirah Woodard is a 18 year [...] the patient was advised to see her INSPECTING AND TESTING LEAD HAND for further evaluation and management. CLINICAL IMPRESSION: Sore Throat ASSESSMENT/PLAN: 1. Sore throat - ICD9: 462, ICD10: J02.9 - STREP A MOLECULAR (POC) Roberto Powers PA-C documented in this encounter [facility] 03-10-2024 Telephone encounter Note Reason for Call: 9 weeks , dizziness and felt like she would pass out, vision dark vomiting Denies fever Outcome: Patient warm conferenced to main campus cigarette machine operator to assist patient in connecting patient to application technician provider for METAL CONTROL WORKER Nilda Stiles CAMPUS RECRUITER. [facility] 03-10-2024 Miscellaneous Notes Reason for Call: 9 weeks , dizziness and felt like she would pass out, vision dark vomiting Denies fever Outcome: Patient warm conferenced to main campus cigarette machine operator to assist patient in connecting patient to application technician provider for METAL CONTROL WORKER Nilda Martínezf CAMPUS RECRUITER. documented in this encounter [facility] 02-23-2024 Telephone encounter Note 1st risk assessment form submitted 02/23/24. Pauline Au RN [facility] 02-23-2024 Miscellaneous Notes 1st risk assessment form submitted 02/23/24. Pauline Au RN documented in this encounter [facility] 02-16-2024 Note HNO ID: [id number] Author: NILDA STILES APRN.JOSELYN Service: ? Author Type: Nurse Practitioner Type: Progress Notes Filed: 02/21/2024 09:02 Note Text: Patient declined medical record consultant. INITIAL OB ASSESSMENT HPI: Amirah is a [...] (FLONASE) 50 mcg/actuation nasal spray Use 1 Seligman in each nostril once daily. (Patient not [...] Impaired Vision, Ringing (more content not included)... [facility] 02-16-2024 History of Present illness Narrative Patient declined medical record consultant. INITIAL OB ASSESSMENT HPI: Amirah is a [...] (FLONASE) 50 mcg/actuation nasal spray Use 1 Seligman in each nostril once daily. (Patient not [...] discussed with the Patient or Patient's Authorized Physical Science Professor. As applicable, any other physician, advance practice provider, medical student, or other health professional student that will be observing or involved in the sensitive examination for educational or training purposes was discussed with the Patient or Authorized Physical Science Professor. The Patient or Authorized Physical Science Professor has agreed to proceed with the sensitive [...] +cardiac activity, CRL consistent with LMP. Nilda Stiles APRN.CNP ASSESSMENT: 18 year old at 7w0d wks gestational age PLAN: 1) Patient oriented to practice. Patient given new OB orientation folder. Discussed nutrition, folic acid supplementation, dietary guidelines, exercise, smoking, alcohol, caffeine, and drug use. Discussed gestational weight gain guidelines. Discussed routine OB labs including STD/HIV. Discussed how to access Your guide to a health and the Rn Float. Reviewed midwifery and projection technician services that are available. 2) Screening: Hemoglobin [...] 5 weeks or sooner prn. Nilda Stiles APRN.CNP documented in this encounter [facility] 02-16-2024 Instructions Kelly Fields LPN - 02/16/2024 3:31 PM EST Please select the following link to access the [facility] Your Guide to a Healthy . [email or web address] Please select the following link to access the [facility] Your Guide to a Healthy . [email or web address] documented in this encounter [facility] 01-30-2024 Note HNO ID: [id number] Author: NILDA STILES APRN.ENVIRONMENTAL SCIENCE INSTRUCTOR Service: ? Author Type: Nurse Practitioner Type: Progress Notes Filed: 01/30/2024 14:33 Note Text: Amirah Woodard is a 18 year old female who presents for problem visit testing, reported +hpt 01/27/2024, 01/03/2024. HPI: positive test- some cramping no bleeding LMP 01/03/24 OB History T0 L0 SAB0 IAB0 Ectopic0 Multiple0 Live Births0 [employer] Cl[employer] History LMP: 12/09/2023 (Exact Date), Having periods Age at Menarche: Age at First : Age at Menopause: [employer] History Comments: Sexual Activity: Yes; Male Contraception: [...] (FLONASE) 50 mcg/actuation nasal spray Use 1 Seligman in each nostril once daily. loratadine (CLARITIN) [...] Schedule NOB appt Review miscarriage precautions Nilda Stiles, CAMPUS RECRUITER.ENVIRONMENTAL SCIENCE INSTRUCTOR Medical Decision Making: Problems: Low: Acute, uncomplicated illness or injury Data: Unique test(s) ordered: 1 Risk: Low: Low risk from testing/treatment Medical Decision Making Level: 3 - Low [facility] 01-30-2024 History of Present illness Narrative Amirah Woodard is a 18 year old female who presents for problem visit testing, reported +hpt 01/27/2024, 01/03/2024. HPI: positive test- some cramping no bleeding LMP 01/03/24 OB History T0 L0 SAB0 IAB0 Ectopic0 Multiple0 Live Births0 [place] Cl[employer] Sewer History LMP: 12/09/2023 (Exact Date), Having periods Age at Menarche: Age at First : Age at Menopause: [place] [employer] History Comments: Sexual Activity: Yes; Male Contraception: [...] (FLONASE) 50 mcg/actuation nasal spray Use 1 Seligman in each nostril once daily. loratadine (CLARITIN) [...] 3 - Low documented in this encounter [facility] 12-15-2023 Telephone encounter Note Patient notified. Vivian [...] NILDA STILES Pharmacy Information Pharmacy Address Telephone [facility] [address] [place] [address] [facility] 12-15-2023 Miscellaneous Notes Patient notified. Vivian Adams [...] NILDA STILES Pharmacy Information Pharmacy Address Telephone [facility] [address] [place] [address] Mycoplasma positive. Moxifloxacin x 7 days, then Doxy to follow x 7 days. Partner should be treated. Nilda Stiles APRN.CNP documented in this encounter [facility] 12-15-2023 Telephone encounter Note Mycoplasma positive. Moxifloxacin x 7 days, then Doxy to follow x 7 days. Partner should be treated. Nilda Stiles APRN.JOSELYN [facility] 12-12-2023 Note HNO ID: [id number] Author: NILDA STILES APRN.CNP Service: ? Author Type: Nurse Practitioner Type: Progress Notes Filed: 12/12/2023 16:43 Note Text: Patient declined medical record consultant. Amirah Woodard is a 18 year old [...] L0 SAB0 IAB0 Ectopic0 Multiple0 Live Births0 [employer]er History LMP: 10/08/2023 (Exact Date), Having periods Age at Menarche: Age at First : Age at Menopause: [employer] History Comments: Sexual Activity: Yes; Male Contraception: [...] (FLONASE) 50 mcg/actuation nasal spray Use 1 Seligman in each nostril once daily. loratadine (CLARITIN) [...] discussed with the Patient or Patient's Authorized Physical Science Professor. As applicable, any other physician, advance practice provider, medical student, or other health professional student that will be observing or involved in the sensitive examination for educational or training purposes was discussed with the Patient or Authorized Physical Science Professor. The Patient or Authorized Physical Science Professor has agreed to proceed with the sensitive examination. (Sensitive examination includes inspection and/or palpation of the breasts, pelvis, prostate and anorectal regions). EXAM: LMP 10/08/2023 GENERAL: pleasant, female in no apparent distress HEENT: Normocephalic, atraumatic, mucus membranes moist, and no lesions CHEST: Normal inspiratory effort PELVIC: external genitalia normal, normal Bartholin's glands, urethra, Cabool's glands, no vulvar lesions, no cervical lesions, [...] notify patient of test results. Nilda Stiles APRN.ENVIRONMENTAL SCIENCE INSTRUCTOR Medical Decision Making: Problems: Moderate: New problem with uncertain prognosis Data: Unique test(s) ordered: 3+ Risk: Low: Low risk from testing/treatment Medical Decision Making Level: 4 - Moderate [facility] 12-12-2023 History of Present illness Narrative Patient declined medical record consultant. Amirah Woodard is a 18 year old [...] L0 SAB0 IAB0 Ectopic0 Multiple0 Live Births0 [employer]er History LMP: 10/08/2023 (Exact Date), Having periods Age at Menarche: Age at First : Age at Menopause: [employer]er History Comments: Sexual Activity: Yes; Male Contraception: [...] (FLONASE) 50 mcg/actuation nasal spray Use 1 Seligman in each nostril once daily. loratadine (CLARITIN) [...] discussed with the Patient or Patient's Authorized Physical Science Professor. As applicable, any other physician, advance practice provider, medical student, or other health professional student that will be observing or involved in the sensitive examination for educational or training purposes was discussed with the Patient or Authorized Physical Science Professor. The Patient or Authorized Physical Science Professor has agreed to proceed with the sensitive examination. (Sensitive examination includes inspection and/or palpation of the breasts, pelvis, prostate and anorectal regions). EXAM: LMP 10/08/2023 GENERAL: pleasant, female in no apparent distress HEENT: Normocephalic, atraumatic, mucus membranes moist, and no lesions CHEST: Normal inspiratory effort PELVIC: external genitalia normal, normal Bartholin's glands, urethra, Cabool's glands, no vulvar lesions, no cervical lesions, [...] 4 - Moderate documented in this encounter [facility] 10-31-2023 Sommer Panchal PA-C - 10/31/2023 11:23 [...] drinks Go! Be healthy, inside and out! www.[facility].[email or web address]/5toGo Adolescent to Adult Transition Program [facility] cares about helping you and each of our adolescents and young adults make a smooth transition to adult care. If your current doctor is a rn nursery, we will work with you to decide [...] your current doctor is in family medicine, [facility] will prepare you and your family for [...] details. If joining our practice from outside [facility], we will help you request your medical [...] the use of evidence-driven strategies for health family day care worker, youth, young adults, and their families. www.gottransition.org https://gottransition.org/resource /?ecs-ynxcga-ytzyzim documented in this encounter [facility] 10-31-2023 Note HNO ID: [id number] Author: SOMMER HERNANDEZ PA-C Service: ? Author Type: Physician Design Maker Type: Progress Notes Filed: 11/04/2023 07:46 Note Text: WELL VISIT PEDIATRIC 18+ YRS OLD Amirah is a 18 year old who presents today for well exam. SUBJECTIVE CONCERNS: Yeast infection in vaginal area, scalp, belly button - completed 7 day course [employer], PAVING BLOCK CUTTER advised in office visit with them Allergy/Immunology [...] (FLONASE) 50 mcg/actuation nasal spray Use 1 Seligman in each nostril once daily. loratadine (CLARITIN) [...] satisfactory Screening tools reviewed and discussed with patient/ucpesz-HCU-5 and Social Determinants of Health. Please see [...] hard Transportation Ne (more content not included)... [facility] 10-31-2023 History of Present illness Narrative WELL VISIT PEDIATRIC 18+ YRS OLD Amirah is a 18 year old who presents today for well exam. SUBJECTIVE CONCERNS: Yeast infection in vaginal area, scalp, belly button - completed 7 day course [employer]ist[employer], PAVING BLOCK CUTTER advised in office visit with them Allergy/Immunology [...] (FLONASE) 50 mcg/actuation nasal spray Use 1 Seligman in each nostril once daily. loratadine (CLARITIN) [...] satisfactory Screening tools reviewed and discussed with patient/kozdal-ECN-7 and Social Determinants of Health. Please see [...] and safety. - Dental care discussed. - [employer] handout given (See Patient Instructions). - No immunizations were given at this visit. - Follow up in one year for routine physical. Sommer Hernandez PA-C documented in this encounter [facility] 10-28-2023 Telephone encounter Note The following approved medication requests have been transmitted electronically. Requested Prescriptions Pending Prescriptions Disp Refills albuterol HFA (PROVENTIL HFA, VENTOLIN HFA) 90 mcg/actuation inhaler 18 g 0 Sig: Inhale 2 Puffs as instructed every 4 hours as needed for wheezing/shortness of breath. Que Chavez MD [facility] 10-28-2023 Miscellaneous Notes The following approved medication [...] done Covid-19 Vaccine( season) due on 11/05/2022 Antonina Morse RN documented in this encounter [facility] 10-28-2023 Telephone encounter Note Last WCC: greater [...] done Covid-19 Vaccine( season) due on 11/05/2022 Antonina Morse RN [facility] 08-25-2023 History of Present illness Narrative Amirah Woodard is a 18 year old female who presents for problem visit burning with intercourse HPI: pt states that her previous symptoms are cleared up, but will have vaginal burning with intercourse and after. OB History T0 L0 SAB0 IAB0 Ectopic0 Multiple0 Live Births0 Window Shade Cloth Sewer History LMP: 07/04/2023 (Exact Date), Having periods Age at Menarche: Age at First : Age at Menopause: Window Shade Cloth Sewer History Comments: Sexual Activity: Yes; Male Contraception: [...] (FLONASE) 50 mcg/actuation nasal spray Use 1 Seligman in each nostril once daily. albuterol HFA [...] 3 - Low documented in this encounter [facility] 08-21-2023 Instructions Alecia Mendez APRN.JOSELYN - 08/21/2023 11:31 AM EDT Rest, increase [...] inability to swallow. documented in this encounter [facility] 08-21-2023 History of Present illness Narrative Subjective The history is provided by the patient. No information systems supervisor was used. HPI Amirah Woodard is a 18 year old female who presents today for CC of sore throat and ever for one day. She is also having nasal congestion, and cough. She has used ibuprofen with short term relief. 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 BP 112/81 Pulse 104 Temp 36.4 C [...] have confirmed and edited as necessary, the [facility] Review of Systems Constitutional: Negative for [...] Alecia Mendez APRN.JOSELYN documented in this encounter [facility] 08-02-2023 Telephone encounter Note BV positive. To treat with Flagyl 500mg PO BID for 7 days. 1) No alcohol during treatment and for 24 hours after last dose. 2) No intercourse during treatment. 3) Probiotic by mouth once daily for 30 days or as needed. I would also recommend using boric acid vaginal suppositories for 7 night. Nilda Stiles APRN.CNP [facility] 08-02-2023 Miscellaneous Notes BV positive. To treat with Flagyl 500mg PO BID for 7 days. 1) No alcohol during treatment and for 24 hours after last dose. 2) No intercourse during treatment. 3) Probiotic by mouth once daily for 30 days or as needed. I would also recommend using boric acid vaginal suppositories for 7 night. Nilda Stiles APRN.JOSELYN documented in this encounter [facility] 07-29-2023 Telephone encounter Note The following approved medication requests have been transmitted electronically. Requested Prescriptions Pending Prescriptions Disp Refills fluticasone (FLONASE) 50 mcg/actuation nasal spray 1 Each 3 Sig: Use 1 Seligman in each nostril once daily. albuterol HFA (PROVENTIL HFA, VENTOLIN HFA) 90 mcg/actuation inhaler 18 g 0 Sig: Inhale 2 Puffs as instructed every 4 hours as needed for wheezing/shortness of breath. Que Chavez MD [facility] 07-29-2023 Miscellaneous Notes The following approved medication requests have been transmitted electronically. Requested Prescriptions Pending Prescriptions Disp Refills fluticasone (FLONASE) 50 mcg/actuation nasal spray 1 Each 3 Sig: Use 1 Seligman in each nostril once daily. albuterol HFA (PROVENTIL HFA, VENTOLIN HFA) 90 mcg/actuation inhaler 18 g 0 Sig: Inhale 2 Puffs as instructed every 4 hours as needed for wheezing/shortness of breath. Que Chavez MD Last [facility]: 10/05/22 Verify RX Benefits Completed Last [...] Antonina Morse RN documented in this encounter [facility] 07-29-2023 Telephone encounter Note Refill request received via [employer]. Patient last seen in office on 07/11/23. Caroline Mora RN [facility] 07-29-2023 Miscellaneous Notes Refill request received via [employer]. Patient last seen in office on 07/11/23. Caroline Mora RN documented in this encounter [facility] 07-29-2023 Telephone encounter Note Last [facility]: 10/05/22 Verify RX Benefits Completed Last [...] Health Screening Never done Antonina Morse RN [facility] 07-29-2023 History of Present illness Narrative Substance Abuse Rn offered: Patient declines. Amirah Woodard is a [...] external genitalia normal, normal Bartholin's glands, urethra, Cabool's glands, no vulvar lesions, no cervical lesions, [...] 4 - Moderate documented in this encounter [facility] 07-12-2023 Note Addended by: NILDA STILES on: 07/12/2023 02:21 PM Modules accepted: Orders [facility] 07-12-2023 Miscellaneous Notes Addended by: NILDA STILES on: 07/12/2023 02:21 PM Modules accepted: Orders BV positive. To treat with Flagyl 500mg PO BID for 7 days. 1) No alcohol during treatment and for 24 hours after last dose. 2) No intercourse during treatment. 3) Probiotic by mouth once daily for 30 days or as needed. Nilda Stiles APRN.CNP documented in this encounter [facility] 07-12-2023 Telephone encounter Note BV positive. To treat with Flagyl 500mg PO BID for 7 days. 1) No alcohol during treatment and for 24 hours after last dose. 2) No intercourse during treatment. 3) Probiotic by mouth once daily for 30 days or as needed. Nilda Stiles APRN.CNP [facility] 07-11-2023 History of Present illness Narrative Substance Abuse Rn offered: Patient declines. Amirah Woodard is a [...] external genitalia normal, normal Bartholin's glands, urethra, Cabool's glands, no vulvar lesions, no cervical lesions, [...] 3 - Low documented in this encounter [facility] 06-29-2023 Telephone encounter Note The following approved medication requests have been transmitted electronically. Requested Prescriptions Pending Prescriptions Disp Refills albuterol HFA (PROVENTIL HFA, VENTOLIN HFA) 90 mcg/actuation inhaler 18 g 0 Sig: Inhale 2 Puffs as instructed every 4 hours as needed for wheezing/shortness of breath. Que Chavez MD [facility] 06-29-2023 Miscellaneous Notes The following approved medication requests have been transmitted electronically. Requested Prescriptions Pending Prescriptions Disp Refills albuterol HFA (PROVENTIL HFA, VENTOLIN HFA) 90 mcg/actuation inhaler 18 g 0 Sig: Inhale 2 Puffs as instructed every 4 hours as needed for wheezing/shortness of breath. Que Chavez MD documented in this encounter [facility] 06-24-2023 History of Present illness Narrative PEDIATRIC ARCHER/ANKLE/FOOT INJURY VISIT Patient presents with: Leg Pain: Right left in archer and left hip pain ongoing for awhile. More frequently having the pain Amirah Woodard is a 17 year old accompanied by self presenting with injury to her bilateral archer(s). History was obtained from: patient HPI: Date when archer pain began: years History of the complaint: [...] Que Chavez MD documented in this encounter [facility] 05-16-2023 History of Present illness Narrative Amirah [...] Kia Lucero MD documented in this encounter [facility] 05-13-2023 Miscellaneous Notes Linked to appointment. Jody Hall RN Done Janelle Marin MD Patient is scheduled with today for IUD removal. Please file pending order to attach to her visit. Thank you. Kia Sheldon RN documented in this encounter [facility] 05-13-2023 History of Present illness Narrative Radiology [...] PATIENT PRESENTS WITH AN IMPLANTABLE OR ATTACHED AMERICAN BOARD CERTIFIED ORTHOTIST: No RADIOLOGY DEPARTMENT: Ultrasound PERIPHERAL IV DATA: Not applicable SIGNED BY: Alla David RDMS May 13, 2023 8:31 AM documented in this encounter [facility] 05-03-2023 History of Present illness Narrative Amirah [...] L0 SAB0 IAB0 Ectopic0 Multiple0 Live Births0 Window Shade Cloth Sewer History LMP: 04/04/2023 (Exact Date), Having periods Age at Menarche: Age at First : Age at Menopause: Window Shade Cloth Sewer History Comments: Sexual Activity: Not Currently; Male [...] (FLONASE) 50 mcg/actuation nasal spray Use 1 Seligman in each nostril once daily. (Patient taking differently: Use 1 Seligman in each nostril once daily. PRN) Olopatadine [...] external genitalia normal, normal Bartholin's glands, urethra, Cabool's glands, no vulvar lesions, no cervical lesions, [...] Making Level: 4 - Moderate R Chris MILES TEACHING ARBORIST CLIMBER NOTE OF PERSONAL INVOLVEMENT IN CARE: I have interviewed the patient and updated the midwifery student's PFS history, and ROS as necessary. I have re-performed the HPI, Physical Examination, Assessment and Plan. Delfina Watson APRN.CNM documented in this encounter [facility] 11-12-2022 Miscellaneous Notes Please see pt's mychart message and further advise. Charis Crook LPN documented in this encounter [facility] 10-05-2022 Instructions Sommer Hernandez PA-C - 10/05/2022 [...] drinks Go! Be healthy, inside and out! www.[email or web address]/5toGo Adolescent to Adult Transition Program [facility] cares about helping you and each of our adolescents and young adults make a smooth transition to adult care. If your current doctor is a rn nursery, we will work with you to decide [...] your current doctor is in family medicine, [facility] will prepare you and your family for [...] details. If joining our practice from outside [facility], we will help you request your medical [...] the use of evidence-driven strategies for health family day care worker, youth, young adults, and their families. www.gottransition.org https://gottransition.org/resource /?iin-kuonrc-zjziwod documented in this encounter [facility] 10-05-2022 History of Present illness Narrative WELL [...] (FLONASE) 50 mcg/actuation nasal spray Use 1 Seligman in each nostril once daily. (Patient taking differently: Use 1 Seligman in each nostril once daily. PRN) Olopatadine [...] satisfactory Screening tools reviewed and discussed with patient/kanret-JEL-3 and Social Determinants of Health. Please see [...] based on BMI available as of 10/05/2022. Amirah is elevated range (BMI greater than 95th%): -Discussed how healthy eating, minimizing electronics and getting physical activity impact physical and emotional health -Avoid eating out and encouraged family meals at home - Discussed diet and safety. - Dental care discussed. - [employer] handout given (See Patient Instructions). - Patient was counseled [id number] by myself (the billing provider) for the following immunizations and vaccine components, including side effects: HPV. Patient consents for immunization and understands risks and benefits. A VIS sheet on each immunization was given to the patient. - Follow up in one year for routine physical. Sommer Hernandez PA-C documented in this encounter [facility] 07-15-2022 History of Present illness Narrative CONTRACEPTION [...] (FLONASE) 50 mcg/actuation nasal spray Use 1 Seligman in each nostril once daily. Olopatadine (PATADAY [...] 3 - Low documented in this encounter [facility] 07-12-2022 Miscellaneous Notes She can do a virtual visit since I've seen her this year. Nilda Stiles APRN.CNP Do you want patient to have an in person or virtual visit to discuss? documented in this encounter [facility] 05-27-2022 History of Present illness Narrative Patient presents with: Sore Throat: Cough, chest congestion, runny nose x4 days HPI: Feeling sick for 5 days. Her boyfriend is sick with cough and sore throat also. 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 Positive symptoms: Cough, Sore throat, Nasal Congestion, [...] (FLONASE) 50 mcg/actuation nasal spray Use 1 Seligman in each nostril once daily. Olopatadine (PATADAY [...] Ramon Patrick MD documented in this encounter [facility] 05-10-2022 Miscellaneous Notes Voicemail and Venuelabshart message to pt to offer sooner appt. Pt is currently scheduled for 05/17/22 for vaginal burning with intercourse. When pt calls the office please offer her time tomorrow to be seen. Charis Crook LPN documented in this encounter [facility] 05-07-2022 History of Present illness Narrative PEDIATRIC SICK VISIT SERVICE DATE: 04/18/2022 TEACHING PROVIDER (Physician/PA/CAMPUS RECRUITER) NOTE OF PERSONAL INVOLVEMENT IN CARE: I have personally seen and examined the patient and performed the medical decision-making components. I have reviewed the Physician Design Maker (PA) Student's documentation and verified the findings in the note as written. Signature: Sommer Hernandez PA-C Date: 05/07/2022 Time: 9:01 AM This note was generated by a PA STUDENT working under the supervision of an Attending Physician Design Maker. As applicable, the findings, conclusions, and assessment of risk have been confirmed by a qualified provider. The note is NOT considered authenticated until addended and co-signed by the Attending Physician Design Maker at the beginning of this note. SUBJECTIVE: [...] contacts: No known sick contacts (works at residential) HISTORY: ACTIVE PROBLEM LIST Allergic Rhinitis - [...] (FLONASE) 50 mcg/actuation nasal spray Use 1 Seligman in each nostril once daily. Olopatadine (PATADAY [...] TIME: 9:00 AM documented in this encounter [facility] 05-03-2022 Miscellaneous Notes Please have the patient make another appointment so that we can repeat the vaginal swabs to see if the infection has cleared. Nilda Stiles APRN.JOSELYN documented in this encounter [facility] 04-13-2022 Miscellaneous Notes Patient notified. States she [...] Nilda Stiles APRN.CNP documented in this encounter [facility] 04-12-2022 History of Present illness Narrative Amirah [...] external genitalia normal, normal Bartholin's glands, urethra, Cabool's glands, no vulvar lesions, no cervical lesions, [...] 3 - Low documented in this encounter [facility] 04-09-2022 Miscellaneous Notes 1st attempt no answer, no voicemail. Called to R/S w/ [facility]xton for 04/12. Kia Tijerina documented in this encounter [facility] 03-16-2022 History of Present illness Narrative Amirah [...] L0 SAB0 IAB0 Ectopic0 Multiple0 Live Births0 Window Shade Cloth Sewer History LMP: 03/04/2022, Having periods Age at Menarche: Age at First : Age at Menopause: Window Shade Cloth Sewer History Comments: Sexual Activity: Not Currently; Male [...] (FLONASE) 50 mcg/actuation nasal spray Use 1 Seligman in each nostril once daily. Olopatadine (PATADAY [...] external genitalia normal, normal Bartholin's glands, urethra, Cabool's glands, no vulvar lesions, no cervical lesions, [...] 3 - Low documented in this encounter [facility] 01-18-2022 Instructions Alecia Mendez APRN.CNP - 01/18/2022 10:23 AM EST covid test ordered You will be notified in 12-24 hours, results available on [facility] Home isolation until covid results are back [...] inability to swallow. documented in this encounter [facility] 01-18-2022 History of Present illness Narrative Subjective The history is provided by the patient. No information systems supervisor was used. HPI Amirah Woodard is a 16 year old female who presents today for CC of cough, congestion, sore throat and fever that started on Tuesday. She has use tylenol, and nyquil with short term relief. 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 BP 118/64 Pulse 112 Temp 36.5 C [...] have confirmed and edited as necessary, the [facility] Review of Systems Constitutional: Negative for [...] in 24-48 hours with results, available on Venuelabshart - COVID, FLU A/B + RSV, ROUTINE [...] Alecia Mendez APRN.JOSELYN documented in this encounter [facility] 10-28-2021 History of Present illness Narrative PEDIATRIC SICK VISIT SERVICE DATE: 10/28/2021 TEACHING PROVIDER (Physician/PA/CATRINA) NOTE OF PERSONAL INVOLVEMENT IN CARE: I have personally seen and examined the patient and performed the medical decision-making components. I have reviewed the Physician Design Maker (PA) Student's documentation and verified the findings in the note as written. Signature: Sommer Hernandez PA-C Date: 10/28/2021 Time: 9:59 AM This note was generated by a PA STUDENT working under the supervision of an Attending Physician Design Maker. As applicable, the findings, conclusions, and assessment of risk have been confirmed by a qualified provider. The note is NOT considered authenticated until addended and co-signed by the Attending Physician Design Maker at the beginning of this note. SUBJECTIVE: [...] (FLONASE) 50 mcg/actuation nasal spray Use 1 Seligman in each nostril once daily. Olopatadine (PATADAY [...] TIME: 9:00 AM documented in this encounter [facility] 10-05-2021 Instructions Alecia Mendez APRN.ENVIRONMENTAL SCIENCE INSTRUCTOR - 10/05/2021 1:02 PM EDT covid test ordered You will be notified in 24 -48 hours, [facility] until covid results are back [...] inability to swallow. documented in this encounter [facility] 10-05-2021 History of Present illness Narrative Subjective [...] have confirmed and edited as necessary, the [facility] Review of Systems Constitutional: Positive for [...] in 24-48 hours with results, available on Venuelabshart - COVID, FLU A/B + RSV, ROUTINE [...] Alecia Mendez APRN.JOSELYN documented in this encounter [facility] 07-13-2021 Instructions Que Chavez MD - 07/13/2021 [...] drinks Go! Be healthy, inside and out! www.[email or web address]/5toGo Adolescent to Adult Transition Program [facility] cares about helping you and each of our adolescents and young adults make a smooth transition to adult care. If your current doctor is a rn nursery, we will work with you to decide [...] your current doctor is in family medicine, [facility] will prepare you and your family for [...] details. If joining our practice from outside [facility], we will help you request your medical [...] the use of evidence-driven strategies for health family day care worker, youth, young adults, and their families. www.gottransition.org https://[employer].org/resource /?nmv-yvqhhb-gseftrq Healthy Children Ages & Stages Texting Program HealthyChildren.org is an AAP ([place] [employer]) parenting website. It is a great resource for information. They have a new Ages & Stages texting program available to parents. Fill out the information in the link below to start getting helpful tips and resources from AAP experts right to your phone. Be sure to include your child's age so they can send you age appropriate information. https://www.healthychildren.org/En natachash/tips-tools/HealthyChildren-T exting-Program/Pages/default.aspx documented in this encounter [facility] 07-13-2021 History of Present illness Narrative WELL [...] (FLONASE) 50 mcg/actuation nasal spray Use 1 Seligman in each nostril once daily. Olopatadine (PATADAY [...] No Screening tools reviewed and discussed with patient/jnbggw-SHJ-Q and Social Determinants of Health. Please see [...] based on BMI available as of 07/13/2021. Brendolyn is obese (BMI greater than 95th%): -Discussed [...] TIME: 9:00 AM documented in this encounter [facility] 06-12-2021 History of Present illness Narrative PEDIATRIC [...] TDAP VACCINE AGE 7+ IM MENINGOCOCCAL CONJUGATE [id number], IM She has had a partial response [...] SIGNATURE: Que Chavez MD PATIENT NAME: Amirah Clifford Woodard DATE: June 12, 2021 TIME: 9:13 AM Parent/guardian was counseled [id number] by myself (the billing provider) for the following immunizations, including side effects: Menactra and TdaP. Parent/guardian consents for immunization and understands risks and benefits. A VIS sheet on each immunization was offered to the parent. SIGNATURE: Que Chavez MD PATIENT NAME: Amirah Woodard DATE: June 12, 2021 TIME: 9:29 AM documented in this encounter [facility] 06-12-2021 Instructions Que Chavez MD - 06/12/2021 [...] drinks Go! Be healthy, inside and out! www.[facility].org/5toGo documented in this encounter [facility] 08-09-2016 History of Past i llness Narrative Problem Noted Date Resolved Date Exercise-induced asthma with acute exacerbation 08/09/2016 06/12/2021 documented as of this encounter (statuses as of 06/12/2021) [facility] History of Past illness Narrative* Problem Noted Date Resolved Date Exercise-induced asthma with acute exacerbation 08/09/2016 06/12/2021 documented as of this encounter (statuses as of 07/13/2021) [facility] History of Past illness Narrative* Problem Noted Date Resolved Date Exercise-induced asthma with acute exacerbation 08/09/2016 06/12/2021 documented as of this encounter (statuses as of 09/18/2021) [facility] History of Past illness Narrative* Problem Noted Date Resolved Date Exercise-induced asthma with acute exacerbation 08/09/2016 06/12/2021 documented as of this encounter (statuses as of 10/05/2021) [facility] [place] History of Past illness Narrative* Problem Noted Date Resolved Date Exercise-induced asthma with acute exacerbation 08/09/2016 06/12/2021 documented as of this encounter (statuses as of 10/28/2021) [facility] History of Past illness Narrative* Problem Noted Date Resolved Date Exercise-induced asthma with acute exacerbation 08/09/2016 06/12/2021 documented as of this encounter (statuses as of 12/28/2021) [facility] History of Past illness Narrative* Problem Noted Date Resolved Date Exercise-induced asthma with acute exacerbation 08/09/2016 06/12/2021 documented as of this encounter (statuses as of 01/18/2022) [facility] History of Past illness Narrative* Problem Noted Date Resolved Date Exercise-induced asthma with acute exacerbation 08/09/2016 06/12/2021 documented as of this encounter (statuses as of 03/16/2022) [facility] History of Past illness Narrative* Problem Noted Date Resolved Date Exercise-induced asthma with acute exacerbation 08/09/2016 06/12/2021 documented as of this encounter (statuses as of 04/09/2022) [facility] History of Past illness Narrative* Problem Noted Date Resolved Date Exercise-induced asthma with acute exacerbation 08/09/2016 06/12/2021 documented as of this encounter (statuses as of 04/12/2022) [facility] History of Past illness Narrative* Problem Noted Date Resolved Date Exercise-induced asthma with acute exacerbation 08/09/2016 06/12/2021 documented as of this encounter (statuses as of 04/13/2022) [facility] History of Past illness Narrative* Problem Noted Date Resolved Date Exercise-induced asthma with acute exacerbation 08/09/2016 06/12/2021 documented as of this encounter (statuses as of 05/03/2022) [facility] History of Past illness Narrative* Problem Noted Date Resolved Date Exercise-induced asthma with acute exacerbation 08/09/2016 06/12/2021 documented as of this encounter (statuses as of 05/07/2022) [facility] History of Past illness Narrative* Problem Noted Date Resolved Date Exercise-induced asthma with acute exacerbation 08/09/2016 06/12/2021 documented as of this encounter (statuses as of 05/11/2022) [facility] History of Past illness Narrative* Problem Noted Date Resolved Date Exercise-induced asthma with acute exacerbation 08/09/2016 06/12/2021 documented as of this encounter (statuses as of 05/27/2022) [facility] History of Past illness Narrative* Problem Noted Date Resolved Date Exercise-induced asthma with acute exacerbation 08/09/2016 06/12/2021 documented as of this encounter (statuses as of 07/13/2022) [facility] History of Past illness Narrative* Problem Noted Date Resolved Date Exercise-induced asthma with acute exacerbation 08/09/2016 06/12/2021 documented as of this encounter (statuses as of 07/16/2022) [facility] History of Past illness Narrative* Problem Noted Date Diagnosed Date Resolved Date Exercise-induced asthma with acute exacerbation 08/09/2016 06/12/2021 documented as of this encounter (statuses as of 10/06/2022) [facility] History of Past illness Narrative* Problem Noted Date Diagnosed Date Resolved Date Exercise-induced asthma with acute exacerbation 08/09/2016 06/12/2021 documented as of this encounter (statuses as of 11/12/2022) [facility] History of Past illness Narrative* Problem Noted Date Diagnosed Date Resolved Date Exercise-induced asthma with acute exacerbation 08/09/2016 06/12/2021 documented as of this encounter (statuses as of 04/28/2023) [facility] History of Past illness Narrative* Problem Noted Date Diagnosed Date Resolved Date Exercise-induced asthma with acute exacerbation 08/09/2016 06/12/2021 documented as of this encounter (statuses as of 05/13/2023) [facility] History of Past illness Narrative* Problem Noted Date Diagnosed Date Resolved Date Exercise-induced asthma with acute exacerbation 08/09/2016 06/12/2021 documented as of this encounter (statuses as of 05/14/2023) [facility] History of Past illness Narrative* Problem Noted Date Diagnosed Date Resolved Date Exercise-induced asthma with acute exacerbation 08/09/2016 06/12/2021 documented as of this encounter (statuses as of 05/16/2023) [facility] History of Past illness Narrative* Problem Noted Date Diagnosed Date Resolved Date Exercise-induced asthma with acute exacerbation 08/09/2016 06/12/2021 documented as of this encounter (statuses as of 05/18/2023) [facility] History of Past illness Narrative* Problem Noted Date Diagnosed Date Resolved Date Exercise-induced asthma with acute exacerbation 08/09/2016 06/12/2021 documented as of this encounter (statuses as of 06/24/2023) [facility] Conrado Richardson [facility] Note Date/Time September 04, 2024 12:01 pm [facility] Medical Records Department [address] [place] [address] Emergency Department Summary 09/04/24 MR#: [id number] Acct: [id number] Name: AMIRAH WOODARD Rep #:[id number] : 2005 19 From: Conrado Richardson MD PCP: Dr. Ruiz Vega, Status:RE G ER Location: ED HPI History [...] discomfort that was diffuse. Lightheadedness. 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 Adrienne Marin. Who [...] Factors: Negative for Marfan's Syndrome or Hypertension PFSH PFS Medical History Left ankle pain Home Medications ?Medication ?Instructions ?Recorded ?Last Taken ?Type Lactobacillus 25 billion cap PO 10/04/23 Unknown Hist ory cell-Bifido 25 billion [id number] capsule albuterol sulfate 90 mcg/actuation inhalation 10/04/23 [...] the ankles bilaterally. Dorsi plantarflexion intact. 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 Normal radial pulses. Back nontender. Neurologically [...] Tylenol for pain. Outpatient follow-up with her [employer]ING LEAD HAND. History & Record Review Discussion w/independent historian: [...] 70.6 H Lymph % (Auto) 16.7 L [place] % (Auto) 8.8 Eos % (Auto) 2.2 [...] dissection No acute pulmonary process Reading Location: [facility] Rhythm Strip Rhythm Strip: Sinus Tach Rate: 113 Ectopy: None EKG Initial EKG: Attestation: I personally reviewed and interpreted this EKG as follows: Interpretation: No Acute Injury Pattern and Sinus Tachycardia Comments: Sinus tachycardia rate of 113 no acute signs of IA or ischemia. Discharge Plan Triage Chief Complaint: Chest Pain ED Provider: Conrado Richardson Dx/Rx/DC Orders Clinical Impression: Chest pain, Third trimester Instructions: ED Chest Pain, Uncertain Cause Prescriptions: No Action albuterol sulfate 90 mcg/actuation HFA aerosol inhaler inhalation Lacto no.87-Rnmgxm-DOT-larch 25B cell-25B cell-50 mg capsule PO One A Day Women's DHA 28 mg iron- 800 mcg combo pack PO Primary Care Provider: Ruiz Vega Referrals: Ruiz Vega DO [Primary Care Provider] - As Needed Janelle Marin MD [Med Staff - Active Staff] - As Needed Activity Restrictions/Additional Instructions: 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 Your test today looked good. No signs of a blood clot or heart attack. Print Language: Slovenian Disposition Disposition: Home, Self Care What to do if you have Problems For any increased pain, shortness of breath, bleeding, nausea or vomiting, chestpain, or any unexpected problems, contact your Primary Care Provider. Call [facility] ([phone]) or report to the closest Emergency Room. Call 911 if necessary. 09/04/24 1201 <Electronically signed by Conrado Richardson MD> Cosigner Signature (if applicable): CC: Dr. Ruiz Vega DO ~ Signed [facility] Work Phone: Evaluation note* Diagnosis Gastroesophageal reflux disease, unspecified whether esophagitis present- Primary Encounter for immunization Need for other specified prophylactic vaccination against single bacterial disease [facility] Encounter for WCC (well child check) with abnormal findings- Primary Gastroesophageal reflux disease, unspecified whether esophagitis present Allergic rhinitis, unspecified seasonality, unspecified trigger [facility] Diagnosis Pelvic pain in female- Primary Unspecified symptom associated with female genital organs [facility] Diagnosis Upper respiratory symptom- Primary Other symptoms involving respiratory system and chest Suspected COVID-19 virus infection documented [facility]* Diagnosis Seasonal allergies- Primary Allergic rhinitis, cause unspecified [facility]* Diagnosis Encounter for immunization- Primary Need for other specified prophylactic vaccination against single bacterial disease [facility]* Diagnosis Acute cough- Primary Fever, unspecified fever cause Sore throat Acute pharyngitis URI with cough and congestion [facility] Diagnosis Pelvic pain in female- Primary Unspecified symptom associated with female genital organs Encounter for surveillance of contraceptive pills Surveillance of previously prescribed contraceptive pill [facility] Diagnosis Vaginal irritation- Primary Unspecified noninflammatory disorder of vagina [facility] Diagnosis Dysfunction of both eustachian tubes- Primary Dysfunction of Eustachian tube Seasonal allergies Allergic rhinitis, cause unspecified [facility] Diagnosis URI, acute- Primary Acute upper respiratory infections of unspecified site Wheezing [facility] Diagnosis Missed period- Primary Irregular menstrual cycle Encounter for other contraceptive management [facility]* Diagnosis Encounter for wellness examination in adult- Primary Encounter for immunization Need for other specified prophylactic vaccination against single bacterial disease [facility]* Diagnosis Malpositioned intrauterine device (IUD), initial encounter- Primary Encounter for IUD removal Encounter for removal of intrauterine contraceptive device [facility]* Diagnosis Pelvic pain in female Unspecified symptom associated with female genital organs documented [facility]* Diagnosis Encounter for IUD removal- Primary Encounter for removal of intrauterine contraceptive device Displacement of intrauterine contraceptive device, initial encounter Malpositioned intrauterine device (IUD), initial encounter documented [facility]* Diagnosis Vaginal discharge- Primary Leukorrhea, not specified as infective Vaginal itching Pruritus of genital organs Pelvic pain in female Unspecified symptom associated with female genital organs [facility] Diagnosis Pes planus of both feet- Primary Pain in archer, unspecified laterality Acute upper respiratory infection Acute upper respiratory infections of unspecified site Mild intermittent asthma with (acute) exacerbation [facility]* Diagnosis Wheezing [facility]* Diagnosis Vaginal burning- Primary Other specified symptom associated with female genital organs [facility]* Diagnosis BV (bacterial vaginosis) Vaginitis and vulvovaginitis, unspecified [facility]* Diagnosis Wheezing [facility]* Diagnosis Vaginal discharge- Primary Leukorrhea, not specified as infective [facility] Diagnosis Sore throat- Primary Acute pharyngitis Viral illness Unspecified viral infection, in conditions classified elsewhere and of unspecified site [facility] Diagnosis Vaginal burning- Primary Other specified symptom associated with female genital organs [facility]* Diagnosis Wheezing [facility]* Diagnosis Wheezing [facility]* Diagnosis Encounter for wellness examination in adult- Primary Mild intermittent asthma with (acute) exacerbation Seborrhea Adverse food reaction, initial encounter [facility]* Diagnosis Vaginal discharge- Primary Leukorrhea, not specified as infective Vaginal irritation Unspecified noninflammatory disorder of vagina Family history of thyroid disorder Family history of other endocrine and metabolic diseases documented [facility] this [facility]* Diagnosis Encounter for test, result positive- Primary examination or test, positive result [facility]* Diagnosis Encounter for care in first trimester of first - Primary 7 weeks gestation of state, incidental Vaginal irritation Unspecified noninflammatory disorder of vagina BMI 32.0-32.9,adult Body Mass Index 32.0-32.9, adult Supervision of normal first teen in first trimester documented [facility]* Diagnosis Sore throat- Primary Acute ph[facility]itis [facility] Diagnosis Acute non-recurrent frontal sinusitis- Primary documented in this encounter [facility] note* Diagnosis Vaginal irritation- Primary Unspecified noninflammatory disorder of vagina Vaginal discharge Leukorrhea, not specified as infective Encounter for care in first trimester of first 12 weeks gestation of state, incidental [facility]* Diagnosis Supervision of normal first teen in first trimester- Primary 13 weeks gestation of state, incidental Obesity in Obesity complicating , childbirth, or the puerperium, unspecified as to episode of care or not applicable [facility] Diagnosis Encounter for screening for malformation using ultrasound- Primary 13 weeks gestation of state, incidental documented in this encounter [facility] note* Diagnosis Wheezing [facility]* Diagnosis Supervision of normal first teen in second trimester- Primary Obesity in Obesity complicating , childbirth, or the puerperium, unspecified as to episode of care or not applicable 16 weeks gestation of state, incidental Dizziness Dizziness and giddiness [facility]* Diagnosis Supervision of normal first teen in second trimester- Primary Obesity in Obesity complicating , childbirth, or the puerperium, unspecified as to episode of care or not applicable 20 weeks gestation of state, incidental documented in this encounter [facility] note* Diagnosis Obesity in - Primary Obesity complicating , childbirth, or the puerperium, unspecified as to episode of care or not applicable Supervision of normal first teen in first trimester 13 weeks gestation of state, incidental [facility]* Diagnosis Obesity in (HCC)- Primary Obesity complicating , childbirth, or the puerperium, unspecified as to episode of care or not applicable Supervision of normal first teen in second trimester (HCC) 22 weeks gestation of (HCC) state, incidental Cramping affecting , antepartum (HCC) documented in this encounter [facility] note* Diagnosis 24 weeks gestation of (HCC)- Primary state, incidental Obesity in (HCC) Obesity complicating , childbirth, or the puerperium, unspecified as to episode of care or not applicable Screening for diabetes mellitus * Assessment & Plan Note - Janelle Marin MD - 06/19/2024 2:51 PM EDTAssociated Problem(s): Obesity in (HCC) documented in this encounter [facility] note* Diagnosis 24 weeks gestation [...] of normal first teen in second trimester ([facility]) Decreased movements in second trimester, single or unspecified fetus ([facility]) documented in this encounter [facility] note* Diagnosis 24 weeks gestation of (HCC)- Primary state, incidental Obesity in (HCC) Obesity complicating , childbirth, or the puerperium, unspecified as to episode of care or not applicable Screening for diabetes mellitus Supervision of high risk in third trimester ([facility])- Primary Unspecified high-risk 28 weeks gestation of ([facility]) state, incidental Obesity affecting in third trimester, unspecified obesity type ([facility]) Vaginal discharge during in third trimester ([facility]) documented in this encounter [facility] note* Diagnosis 24 weeks gestation of (HCC)- Primary state, incidental Obesity in (HCC) Obesity complicating , childbirth, or the puerperium, unspecified as to episode of care or not applicable Screening for diabetes mellitus Supervision of high risk in third trimester ([facility])- Primary Unspecified high-risk 30 weeks gestation of ([facility]) state, incidental Rash Rash and other nonspecific skin eruption Other obesity due to excess calories affecting , antepartum ([facility]) Allergic rhinitis, unspecified seasonality, unspecified trigger * Assessment & Plan Note - Castillo Mckeon MD - 08/01/2024 9:51 AM EDT Associated Problem(s): Supervision of high risk in third trimester ([facility]) Orders: COMPLETE BLOOD COUNT AND DIFFERENTIAL; Future COMPREHENSIVE METABOLIC PANEL; Future BILE ACIDS, TOTAL; Future * Assessment & Plan Note - Castillo Mckeon MD - 08/01/2024 9:51 AM EDT Associated Problem(s): Allergic rhinitis [facility]* Diagnosis 24 weeks gestation of ([facility])- Primary state, incidental Obesity in ([facility]) Obesity complicating , childbirth, or the puerperium, unspecified as to episode of care or not applicable Screening for diabetes mellitus Supervision of high risk in third trimester ([facility])- Primary Unspecified high-risk 30 weeks gestation of ([facility]) state, incidental Rash Rash and other nonspecific skin eruption Other obesity due to excess calories affecting , antepartum ([facility]) Allergic rhinitis, unspecified seasonality, unspecified trigger Well adult exam- Primary Routine general medical examination at a health care facility 31 weeks gestation of ([facility]) state, incidental Class 2 obesity with body mass index (BMI) of 35.0 to 35.9 in adult, unspecified obesity type, unspecified whether serious comorbidity present Gastroesophageal reflux disease without esophagitis Esophageal reflux [facility]* Diagnosis 24 weeks gestation of (HCC)- Primary state, incidental Obesity in ([facility]) Obesity complicating , childbirth, or the puerperium, unspecified as to episode of care or not applicable Screening for diabetes mellitus Supervision of high risk in third trimester ([facility])- Primary Unspecified high-risk 30 weeks gestation of ([facility]) state, incidental Rash Rash and other nonspecific skin eruption Other obesity due to excess calories affecting , antepartum ([facility]) Allergic rhinitis, unspecified seasonality, unspecified trigger Supervision of high risk in third trimester (HCC)- Primary Unspecified high-risk 32 weeks gestation of (HCC) state, incidental Obesity affecting in third trimester, unspecified obesity type (HCC) documented in this encounter [facility] note* Diagnosis 24 weeks gestation [...] (HCC) state, incidental documented in this encounter [facility] noteNo assessment information availableWSamaritan North [facility] Work Phone: Evaluation note* Diagnosis 24 weeks [...] OB DIP B/O [facility]* Diagnosis 24 weeks gestation of (HCC)- [...] due to excess calories affecting , antepartum ([facility]) Allergic rhinitis, unspecified seasonality, unspecified trigger Supervision [...] (HCC) rx pepcid documented in this encounter [facility] note* Diagnosis 24 weeks gestation of (HCC)- Primary state, incidental Obesity in ([facility]) Obesity complicating , childbirth, or the puerperium, unspecified as to episode of care or not applicable Screening for diabetes mellitus Supervision of high risk in third trimester ([facility])- Primary Unspecified high-risk 30 weeks gestation of ([facility]) state, incidental Rash Rash and other nonspecific skin eruption Other obesity due to excess calories affecting , antepartum ([facility]) Allergic rhinitis, unspecified seasonality, unspecified trigger Supervision of high risk in third trimester ([facility])- Primary Unspecified high-risk Obesity affecting in third trimester, unspecified obesity type ([facility]) 35 weeks gestation of ([facility]) state, incidental 36 weeks gestation of ([facility])- Primary state, incidental Supervision of high risk in third trimester ([facility]) Unspecified high-risk Obesity affecting in third trimester, unspecified obesity type ([facility]) Heartburn during in third trimester ([facility]) Supervision of high risk in third trimester ([facility])- Primary Unspecified high-risk 37 weeks gestation of ([facility]) state, incidental Positive GBS test documented in this encounter [facility] note* Diagnosis 24 weeks gestation of (HCC)- Primary state, incidental Obesity in ([facility]) Obesity complicating , childbirth, or the puerperium, unspecified as to episode of care or not applicable Screening for diabetes mellitus Supervision of high risk in third trimester ([facility])- Primary Unspecified high-risk 30 weeks gestation of ([facility]) state, incidental Rash Rash and other nonspecific skin eruption Other obesity due to excess calories affecting , antepartum ([facility]) Allergic rhinitis, unspecified seasonality, unspecified trigger Supervision of high risk in third trimester ([facility])- Primary Unspecified high-risk Obesity affecting in third trimester, unspecified obesity type (HCC) 35 weeks gestation of ([facility]) state, incidental 36 weeks gestation of (HCC)- Primary state, incidental Supervision of high risk in third trimester (HCC) Unspecified high-risk Obesity affecting in third trimester, unspecified obesity type (HCC) Heartburn during in third trimester (HCC) Supervision of high risk in third trimester (HCC)- Primary Unspecified high-risk 38 weeks gestation of (HCC) state, incidental * Assessment & Plan Note - Janelle Marin MD - 09/25/2024 2:23 PM EDTAssociated Problem(s): Supervision of high risk in third trimester (HCC) Orders: URINE OB DIP B/O [facility] Diagnosis 24 weeks gestation of ([facility]CC)- [...] due to excess calories affecting , antepartum ([facility]) Allergic rhinitis, unspecified seasonality, unspecified trigger Supervision [...] third trimester (HCC) Unspecified high-risk Obesity in ([facility]) Obesity complicating , childbirth, or the puerperium, unspecified as to episode of care or not applicable Positive GBS test documented in this encounter [facility] Discharge instructionsAdditional Instructions 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 Your test today looked good. No signs of a blood clot or heart attack.[facility] Work Phone: Reason for referral (narrative)* Outpatient Procedure (Routine) - Pending Review Specialty Diagnoses / Procedures Referred By Lance t Referred To Contact [facility] Diagnoses Malpositioned intrauterine device (IUD), initial encounter Encounter for IUD removal Procedures REMOVE INTRAUTERINE DEVICE REMOVE INTRAUTERINE DEVICE Janelle Marin MD [address] [place] [address] [facility] [address] [place] [address] Referral ID Status Reason Start Date Expiration Date Visits Requested Visits Authorized [id number] Pending Review Auto-Generat ed Referral 05/13/2023 05/12/2024 1 1 [facility] for referral (narrative)* Diagnostic Procedure Only (Routine) - Closed Specialty Diagnoses / Procedures Referred By Contac t Referred To Contact [facility] Diagnoses Pelvic pain in female Procedures US FEMALE PELVIS TRANSVAG US TRANSVAGINAL Delfina Watson APRN.CNM [address] [place] [address] [place] [address] Referral ID Status Reason Start Date Expiration Date V isits Requested Visits Authorized [id number] Closed Auto-Generate d Referral 05/03/2023 06/01/2024 1 1 [facility] for referral (narrative)* Diagnostic Procedure Only (Routine) - Closed Specialty Diagnoses / Procedures Referred By Contac t Referred To Contact [facility] Diagnoses Pelvic pain in female Procedures US FEMALE PELVIS TRANSVAG US TRANSVAGINAL Delfina Watson APRN.CNM [address] [place] [address] [place] [address] Referral ID Status Reason Start Date Expiration Date V isits Requested Visits Authorized [id number] Closed Auto-Generate d Referral 05/03/2023 06/01/2024 1 1 [facility] for referral (narrative)* Diagnostic Procedure Only (Routine) - Authorized Specialty Diagnoses / Procedures Referred By Contac t Referred To Contact [facility] Diagnoses Encounter for care in first trimester of first 7 weeks gestation of Procedures NUCHAL TRANSLUCENCY WHI US NUCHAL TRANSLUCENCY 1ST GESTATION Nilda Stiles APRN.CNP [address] [place] [address] [place] [id number] Referral ID Status Reason Start Date Expiration Date Visits Requested Visits Authorized [id number] Authorized Auto-Generat ed Referral 02/20/2025 1 1 [facility] for referral (narrative)* Diagnostic Procedure Only (Routine) - Authorized Specialty Diagnoses / Procedures Referred By Contac t Referred To Contact [facility] Diagnoses Supervision of normal first teen in first trimester 13 weeks gestation of Obesity in Procedures OBSTETRIC ULTRASOUND WHI US PREG UTERUS AFTER 1ST TRIMEST GESTATION Delfina Watson APRN.CNM [address] [place] [address] [facility] [address] [place] [address] Referral ID Status Reason Start Date Expiration Date Visits Requested Visits Authorized [id number] Authorized Auto-Generat ed Referral 04/03/2024 04/03/2025 1 1 [facility] for referral (narrative)No reason for referral information availableWSamaritan [facility] Work Phone: Reason for visit Narrative* Outpatient Procedure (Routine) - Authorized Specialty Diagnoses / Procedures Referred By Contac t Referred To Contact [facility] Diagnoses Malpositioned intrauterine device (IUD), initial encounter Encounter for IUD removal Procedures REMOVE INTRAUTERINE DEVICE REMOVE INTRAUTERINE DEVICE Janelle Marin MD [address] [place] [address] [facility] [address] [place] [address] Referral ID Status Reason Start Date Expiration Date Visits Requested Visits Authorized [id number] Authorized Auto-Generat ed Referral 05/16/2023 03/06/2024 2 2 [facility] Concerns Infection Onset Date Last Indicated Resolved Time COVID-19 Rule-Out 10/05/2021 10/05/2021 Infection Onset Date Last Indicated Resolved Time COVID-19 Rule-Out 01/18/2022 01/18/2022 Reason for Referral Specialty Diagnoses / Procedures Referred By Contac t Referred To Contact Diagnoses Ramon Chinchilla MD [address] [place] [address] Referral ID Status Reason Start Date Expiration Date Visits Re quested Visits Authorized [id number] Closed 1 1 Specialty Diagnoses / Procedures Referred By Contac t Referred To Contact Diagnoses BV (bacterial vaginosis) Nilda Stiles APRN.ENVIRONMENTAL SCIENCE INSTRUCTOR [address] [place] [address] Referral ID Status Reason Start Date Expiration Date Visits Re quested Visits Authorized [id number] Closed 1 1 Specialty Diagnoses / Procedures Referred By Contac t Referred To Contact Allergy Diagnoses Adverse food reaction, initial encounter Procedures CONSULT TO ALLERGY/IMMUNOLOGY OFFICE/OUTPATIENT [facility] 60 MINUTES Sommer Hernandez PA-C [address] [place] [address] Referral ID Status Reason Start Date Expiration Date Visits Requested Visits Authorized [id number] Authorized PCP Requested Referral 10/31/2023 10/30/2024 1 1 Chief Complaint and Reason for Visit Chief Complaint Admit Date SOB September 04, 2024 10:11 am Chief Complaint Admit Date SOB September 04, 2024 10:11 am RULE OUT [employer] October 12, 2024 11: 20pm Advance Directives Advance Directive Response Recorded Date/ Time Do you have a Healthcare Power of Onsite Case Manager? No September 04, 2024 10:30am Summary Purpose [...] or prosecute any alcohol or drug abuse patient.[facility] the event this information is protected by the Federal Confidentiality of Alcohol and Drug Abuse Patient Records regulations: The Federal rules restrict any use of the information to criminally investigate or prosecute any alcohol or drug abuse patient.[facility] the event this information is protected by the Federal Confidentiality of Alcohol and Drug Abuse Patient Records regulations: The Federal rules restrict any use of the information to criminally investigate or prosecute any alcohol or drug abuse patient.[facility] the event this information is protected by the Federal Confidentiality of Alcohol and Drug Abuse Patient Records regulations: The Federal rules restrict any use of the information to criminally investigate or prosecute any alcohol or drug abuse patient.[facility] the event this information is protected by the Federal Confidentiality of Alcohol and Drug Abuse Patient Records regulations: The Federal rules restrict any use of the information to criminally investigate or prosecute any alcohol or drug abuse patient.[facility] the event this information is protected by the Federal Confidentiality of Alcohol and Drug Abuse Patient Records regulations: The Federal rules restrict any use of the information to criminally investigate or prosecute any alcohol or drug abuse patient.[facility] the event this information is protected by the Federal Confidentiality of Alcohol and Drug Abuse Patient Records regulations: The Federal rules restrict any use of the information to criminally investigate or prosecute any alcohol or drug abuse patient.[facility] the event this information is protected by the Federal Confidentiality of Alcohol and Drug Abuse Patient Records regulations: The Federal rules restrict any use of the information to criminally investigate or prosecute any alcohol or drug abuse patient.[facility] the event this information is protected by the Federal Confidentiality of Alcohol and Drug Abuse Patient Records regulations: The Federal rules restrict any use of the information to criminally investigate or prosecute any alcohol or drug abuse patient.[facility] the event this information is protected by the Federal Confidentiality of Alcohol and Drug Abuse Patient Records regulations: The Federal rules restrict any use of the information to criminally investigate or prosecute any alcohol or drug abuse patient.[facility] the event this information is protected by the Federal Confidentiality of Alcohol and Drug Abuse Patient Records regulations: The Federal rules restrict any use of the information to criminally investigate or prosecute any alcohol or drug abuse patient.[facility] the event this information is protected by the Federal Confidentiality of Alcohol and Drug Abuse Patient Records regulations: The Federal rules restrict any use of the information to criminally investigate or prosecute any alcohol or drug abuse patient.[facility] the event this information is protected by the Federal Confidentiality of Alcohol and Drug Abuse Patient Records regulations: The Federal rules restrict any use of the information to criminally investigate or prosecute any alcohol or drug abuse patient.[facility] the event this information is protected by the Federal Confidentiality of Alcohol and Drug Abuse Patient Records regulations: The Federal rules restrict any use of the information to criminally investigate or prosecute any alcohol or drug abuse patient.[facility] the event this information is protected by the Federal Confidentiality of Alcohol and Drug Abuse Patient Records regulations: The Federal rules restrict any use of the information to criminally investigate or prosecute any alcohol or drug abuse patient.[facility] the event this information is protected by the Federal Confidentiality of Alcohol and Drug Abuse Patient Records regulations: The Federal rules restrict any use of the information to criminally investigate or prosecute any alcohol or drug abuse patient.[facility] the event this information is protected by the Federal Confidentiality of Alcohol and Drug Abuse Patient Records regulations: The Federal rules restrict any use of the information to criminally investigate or prosecute any alcohol or drug abuse patient.[facility] the event this information is protected by the Federal Confidentiality of Alcohol and Drug Abuse Patient Records regulations: The Federal rules restrict any use of the information to criminally investigate or prosecute any alcohol or drug abuse patient.[facility] the event this information is protected by the Federal Confidentiality of Alcohol and Drug Abuse Patient Records regulations: The Federal rules restrict any use of the information to criminally investigate or prosecute any alcohol or drug abuse patient.[facility] the event this information is protected by the Federal Confidentiality of Alcohol and Drug Abuse Patient Records regulations: The Federal rules restrict any use of the information to criminally investigate or prosecute any alcohol or drug abuse patient.[facility] the event this information is protected by the Federal Confidentiality of Alcohol and Drug Abuse Patient Records regulations: The Federal rules restrict any use of the information to criminally investigate or prosecute any alcohol or drug abuse patient.[facility] the event this information is protected by the Federal Confidentiality of Alcohol and Drug Abuse Patient Records regulations: The Federal rules restrict any use of the information to criminally investigate or prosecute any alcohol or drug abuse patient.[facility] the event this information is protected by the Federal Confidentiality of Alcohol and Drug Abuse Patient Records regulations: The Federal rules restrict any use of the information to criminally investigate or prosecute any alcohol or drug abuse patient.[facility] the event this information is protected by the Federal Confidentiality of Alcohol and Drug Abuse Patient Records regulations: The Federal rules restrict any use of the information to criminally investigate or prosecute any alcohol or drug abuse patient.[facility] the event this information is protected by the Federal Confidentiality of Alcohol and Drug Abuse Patient Records regulations: The Federal rules restrict any use of the information to criminally investigate or prosecute any alcohol or drug abuse patient.[facility] the event this information is protected by the Federal Confidentiality of Alcohol and Drug Abuse Patient Records regulations: The Federal rules restrict any use of the information to criminally investigate or prosecute any alcohol or drug abuse patient.[facility] the event this information is protected by the Federal Confidentiality of Alcohol and Drug Abuse Patient Records regulations: The Federal rules restrict any use of the information to criminally investigate or prosecute any alcohol or drug abuse patient.[facility] the event this information is protected by the Federal Confidentiality of Alcohol and Drug Abuse Patient Records regulations: The Federal rules restrict any use of the information to criminally investigate or prosecute any alcohol or drug abuse patient.[facility] the event this information is protected by the Federal Confidentiality of Alcohol and Drug Abuse Patient Records regulations: The Federal rules restrict any use of the information to criminally investigate or prosecute any alcohol or drug abuse patient.[facility] the event this information is protected by the Federal Confidentiality of Alcohol and Drug Abuse Patient Records regulations: The Federal rules restrict any use of the information to criminally investigate or prosecute any alcohol or drug abuse patient.[facility] the event this information is protected by the Federal Confidentiality of Alcohol and Drug Abuse Patient Records regulations: The Federal rules restrict any use of the information to criminally investigate or prosecute any alcohol or drug abuse patient.[facility] the event this information is protected by the Federal Confidentiality of Alcohol and Drug Abuse Patient Records regulations: The Federal rules restrict any use of the information to criminally investigate or prosecute any alcohol or drug abuse patient.[facility] the event this information is protected by the Federal Confidentiality of Alcohol and Drug Abuse Patient Records regulations: The Federal rules restrict any use of the information to criminally investigate or prosecute any alcohol or drug abuse patient.[facility] the event this information is protected by the Federal Confidentiality of Alcohol and Drug Abuse Patient Records regulations: The Federal rules restrict any use of the information to criminally investigate or prosecute any alcohol or drug abuse patient.[facility] the event this information is protected by the Federal Confidentiality of Alcohol and Drug Abuse Patient Records regulations: The Federal rules restrict any use of the information to criminally investigate or prosecute any alcohol or drug abuse patient.[facility]In the event this information is protected by the Federal Confidentiality of Alcohol and Drug Abuse Patient Records regulations: The Federal rules restrict any use of the information to criminally investigate or prosecute any alcohol or drug abuse patient.[facility] the event this information is protected by the Federal Confidentiality of Alcohol and Drug Abuse Patient Records regulations: The Federal rules restrict any use of the information to criminally investigate or prosecute any alcohol or drug abuse patient.[facility] the event this information is protected by the Federal Confidentiality of Alcohol and Drug Abuse Patient Records regulations: The Federal rules restrict any use of the information to criminally investigate or prosecute any alcohol or drug abuse patient.[facility] the event this information is protected by the Federal Confidentiality of Alcohol and Drug Abuse Patient Records regulations: The Federal rules restrict any use of the information to criminally investigate or prosecute any alcohol or drug abuse patient.[facility]In the event this information is protected by the Federal Confidentiality of Alcohol and Drug Abuse Patient Records regulations: The Federal rules restrict any use of the information to criminally investigate or prosecute any alcohol or drug abuse patient.[facility]In the event this information is protected by the Federal Confidentiality of Alcohol and Drug Abuse Patient Records regulations: The Federal rules restrict any use of the information to criminally investigate or prosecute any alcohol or drug abuse patient.[facility]In the event this information is protected by the Federal Confidentiality of Alcohol and Drug Abuse Patient Records regulations: The Federal rules restrict any use of the information to criminally investigate or prosecute any alcohol or drug abuse patient.[facility]In the event this information is protected by the Federal Confidentiality of Alcohol and Drug Abuse Patient Records regulations: The Federal rules restrict any use of the information to criminally investigate or prosecute any alcohol or drug abuse patient.[facility]In the event this information is protected by the Federal Confidentiality of Alcohol and Drug Abuse Patient Records regulations: The Federal rules restrict any use of the information to criminally investigate or prosecute any alcohol or drug abuse patient.[facility]In the event this information is protected by the Federal Confidentiality of Alcohol and Drug Abuse Patient Records regulations: The Federal rules restrict any use of the information to criminally investigate or prosecute any alcohol or drug abuse patient.[facility]In the event this information is protected by the Federal Confidentiality of Alcohol and Drug Abuse Patient Records regulations: The Federal rules restrict any use of the information to criminally investigate or prosecute any alcohol or drug abuse patient.[facility]In the event this information is protected by the Federal Confidentiality of Alcohol and Drug Abuse Patient Records regulations: The Federal rules restrict any use of the information to criminally investigate or prosecute any alcohol or drug abuse patient.[facility]In the event this information is protected by the Federal Confidentiality of Alcohol and Drug Abuse Patient Records regulations: The Federal rules restrict any use of the information to criminally investigate or prosecute any alcohol or drug abuse patient.[facility]In the event this information is protected by the Federal Confidentiality of Alcohol and Drug Abuse Patient Records regulations: The Federal rules restrict any use of the information to criminally investigate or prosecute any alcohol or drug abuse patient.[facility]In the event this information is protected by the Federal Confidentiality of Alcohol and Drug Abuse Patient Records regulations: The Federal rules restrict any use of the information to criminally investigate or prosecute any alcohol or drug abuse patient.[facility]In the event this information is protected by the Federal Confidentiality of Alcohol and Drug Abuse Patient Records regulations: The Federal rules restrict any use of the information to criminally investigate or prosecute any alcohol or drug abuse patient.[facility]In the event this information is protected by the Federal Confidentiality of Alcohol and Drug Abuse Patient Records regulations: The Federal rules restrict any use of the information to criminally investigate or prosecute any alcohol or drug abuse patient.[facility]In the event this information is protected by the Federal Confidentiality of Alcohol and Drug Abuse Patient Records regulations: The Federal rules restrict any use of the information to criminally investigate or prosecute any alcohol or drug abuse patient.[facility]In the event this information is protected by the Federal Confidentiality of Alcohol and Drug Abuse Patient Records regulations: The Federal rules restrict any use of the information to criminally investigate or prosecute any alcohol or drug abuse patient.[facility] OhioIn the event this information is protected by the Federal Confidentiality of Alcohol and Drug Abuse Patient Records regulations: The Federal rules restrict any use of the information to criminally investigate or prosecute any alcohol or drug abuse patient.[facility] OhioIn the event this information is protected by the Federal Confidentiality of Alcohol and Drug Abuse Patient Records regulations: The Federal rules restrict any use of the information to criminally investigate or prosecute any alcohol or drug abuse patient.[facility] OhioIn the event this information is protected by the Federal Confidentiality of Alcohol and Drug Abuse Patient Records regulations: The Federal rules restrict any use of the information to criminally investigate or prosecute any alcohol or drug abuse patient.[facility] OhioIn the event this information is protected by the Federal Confidentiality of Alcohol and Drug Abuse Patient Records regulations: The Federal rules restrict any use of the information to criminally investigate or prosecute any alcohol or drug abuse patient.[facility] OhioIn the event this information is protected by the Federal Confidentiality of Alcohol and Drug Abuse Patient Records regulations: The Federal rules restrict any use of the information to criminally investigate or prosecute any alcohol or drug abuse patient.[facility] OhioIn the event this information is protected by the Federal Confidentiality of Alcohol and Drug Abuse Patient Records regulations: The Federal rules restrict any use of the information to criminally investigate or prosecute any alcohol or drug abuse patient.[facility] OhioIn the event this information is protected by the Federal Confidentiality of Alcohol and Drug Abuse Patient Records regulations: The Federal rules restrict any use of the information to criminally investigate or prosecute any alcohol or drug abuse patient.[facility] [place]In the event this information is protected by the Federal Confidentiality of Alcohol and Drug Abuse Patient Records regulations: The Federal rules restrict any use of the information to criminally investigate or prosecute any alcohol or drug abuse patient.[facility] [place]In the event this information is protected by the Federal Confidentiality of Alcohol and Drug Abuse Patient Records regulations: The Federal rules restrict any use of the information to criminally investigate or prosecute any alcohol or drug abuse patient.[facility] [place]In the event this information is protected by the Federal Confidentiality of Alcohol and Drug Abuse Patient Records regulations: The Federal rules restrict any use of the information to criminally investigate or prosecute any alcohol or drug abuse patient.[facility] [place]In the event this information is protected by the Federal Confidentiality of Alcohol and Drug Abuse Patient Records regulations: The Federal rules restrict any use of the information to criminally investigate or prosecute any alcohol or drug abuse patient.[facility] [place]In the event this information is protected by the Federal Confidentiality of Alcohol and Drug Abuse Patient Records regulations: The Federal rules restrict any use of the information to criminally investigate or prosecute any alcohol or drug abuse patient.[facility] OhioIn the event this information is protected by the Federal Confidentiality of Alcohol and Drug Abuse Patient Records regulations: The Federal rules restrict any use of the information to criminally investigate or prosecute any alcohol or drug abuse patient.[facility] [place]In the event this information is protected by the Federal Confidentiality of Alcohol and Drug Abuse Patient Records regulations: The Federal rules restrict any use of the information to criminally investigate or prosecute any alcohol or drug abuse patient.[facility] [place]In the event this information is protected by the Federal Confidentiality of Alcohol and Drug Abuse Patient Records regulations: The Federal rules restrict any use of the information to criminally investigate or prosecute any alcohol or drug abuse patient.[facility] OhioIn the event this information is protected by the Federal Confidentiality of Alcohol and Drug Abuse Patient Records regulations: The Federal rules restrict any use of the information to criminally investigate or prosecute any alcohol or drug abuse patient.[facility] [place]In the event this information is protected by the Federal Confidentiality of Alcohol and Drug Abuse Patient Records regulations: The Federal rules restrict any use of the information to criminally investigate or prosecute any alcohol or drug abuse patient.[facility] [place]In the event this information is protected by the Federal Confidentiality of Alcohol and Drug Abuse Patient Records regulations: The Federal rules restrict any use of the information to criminally investigate or prosecute any alcohol or drug abuse patient.[facility] [place]In the event this information is protected by the Federal Confidentiality of Alcohol and Drug Abuse Patient Records regulations: The Federal rules restrict any use of the information to criminally investigate or prosecute any alcohol or drug abuse patient.[facility] [place]In the event this information is protected by the Federal Confidentiality of Alcohol and Drug Abuse Patient Records regulations: The Federal rules restrict any use of the information to criminally investigate or prosecute any alcohol or drug abuse patient.[facility] [place]In the event this information is protected by the Federal Confidentiality of Alcohol and Drug Abuse Patient Records regulations: The Federal rules restrict any use of the information to criminally investigate or prosecute any alcohol or drug abuse patient.[facility] [place]In the event this information is protected by the Federal Confidentiality of Alcohol and Drug Abuse Patient Records regulations: The Federal rules restrict any use of the information to criminally investigate or prosecute any alcohol or drug abuse patient.[facility] [place]In the event this information is protected by the Federal Confidentiality of Alcohol and Drug Abuse Patient Records regulations: The Federal rules restrict any use of the information to criminally investigate or prosecute any alcohol or drug abuse patient.[facility] [place]In the event this information is protected by the Federal Confidentiality of Alcohol and Drug Abuse Patient Records regulations: The Federal rules restrict any use of the information to criminally investigate or prosecute any alcohol or drug abuse patient.[facility] [place]In the event this information is protected by the Federal Confidentiality of Alcohol and Drug Abuse Patient Records regulations: The Federal rules restrict any use of the information to criminally investigate or prosecute any alcohol or drug abuse patient.[facility] [place]In the event this information is protected by the Federal Confidentiality of Alcohol and Drug Abuse Patient Records regulations: The Federal rules restrict any use of the information to criminally investigate or prosecute any alcohol or drug abuse patient.[facility] OhioIn the event this information is protected by the Federal Confidentiality of Alcohol and Drug Abuse Patient Records regulations: The Federal rules restrict any use of the information to criminally investigate or prosecute any alcohol or drug abuse patient.[facility] [place] Reason for Visit (unrecogniz ed section and content) Reason Comments ? ACID REFLUX burning sensation in throat after eating, throw up in my mouth, but all acid, mucus build up in my chest that will gag me when it comes up. Onset times 1 month. 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 Called to [facility] w/ R.Linsey for 04/12. Reason Comments vaginal burning Reason Comments Results Reason Comments Earache Earache since day. Started in left ear. Lots of sinus pressure on Tuesday. No fever. Gets hot flashes a lot x3-4 months. Reason Comments Sore Throat Cough, chest congest ion, runny nose x4 days Reason Comments Well Child 17yr [facility] Reason Comments Orders Reason Comments Radiology US Specialty Diagnoses / Procedures Referred By Contac t Referred To Contact US IMAGING Diagnoses Pelvic pain in female Procedures US FEMALE PELVIS TRANSVAG US TRANSVAGINAL Delfina Watson APRN.CN [address] [place] [address] [place] [id number] Referral ID Status Reason Start Date Expiration Date V isits Requested Visits Authorized [id number] Closed Auto-Generate d Referral 05/03/2023 06/01/2024 1 [...] Referred By Contac t Referred To Contact [facility] Diagnoses Encounter for care in first trimester of first 7 weeks gestation of Procedures NUCHAL TRANSLUCENCY WHI US NUCHAL TRANSLUCENCY 1ST GESTATION Nilda Stiles APRN.ENVIRONMENTAL SCIENCE INSTRUCTOR [address] [place] [address] [facility] [address] [place] [id number] Referral ID Status Reason Start Date Expiration Date V isits Requested Visits Authorized [id number] Closed Auto-Generate d Referral 02/21/2024 02/20/2025 1 1 Reason Onset Date Comments Refill Request 04/10/2024 Reason Onset Date Comments Care 04/27/2024 Reason Comments Question (OB Question) Reason Onset Date Comments Care 05/25/2024 Specialty Diagnoses / Procedures Referred By Contac t Referred To Contact [facility] Diagnoses Supervision of normal first teen in first trimester 13 weeks gestation of Obesity in Procedures OBSTETRIC ULTRASOUND WHI US PREG UTERUS AFTER 1ST TRIMEST 1 GESTATION Delfina Watson APRN.CNM [address] [place] [address] Phone: tel: fax: [address] [address] Referral ID Status Reason Start Date Expiration Date V isits Requested Visits Authorized [id number] Closed Auto-Generate d Referral 04/03/2024 04/03/2025 1 [...] Care Teams (unrecognized sec tion and content) Streetcar Dispatcher Relationship Specialty Start Date End Date Que Chavez MD [address] [place] [id number] PCP - General Pediatrics 01/19/17 Streetcar Dispatcher Relationship Specialty Start Date End Date Que Chavez MD [address] [place] [address] PCP - General Pediatrics 01/19/17 Streetcar Dispatcher Relationship Specialty Start Date End Date Que Chavez MD [address] [place] [id number] PCP - General Pediatrics 01/19/17 Streetcar Dispatcher Relationship Specialty Start Date End Date Que Chavez MD [address] [place] [address] PCP - General Pediatrics 01/19/17 Streetcar Dispatcher Relationship Specialty Start Date End Date Que Chavez MD [address] [place] [address] [place] [address] PCP - General Pediatrics 01/19/17 Streetcar Dispatcher Relationship Specialty Start Date End Date Que Chavez MD [address] [place] [address] PCP - General Pediatrics 01/19/17 Streetcar Dispatcher Relationship Specialty Start Date End Date Que Chavez MD [address] [place] [address] PCP - General Pediatrics 01/19/17 Streetcar Dispatcher Relationship Specialty Start Date End Date Que Chavez MD [address] [place] [address] PCP - General Pediatrics 01/19/17 Streetcar Dispatcher Relationship Specialty Start Date End Date Que Chavez MD [address] [place] [address] PCP - General Pediatrics 01/19/17 Streetcar Dispatcher Relationship Specialty Start Date End Date Que Chavez MD [address] [place] [address] PCP - General Pediatrics 01/19/17 Streetcar Dispatcher Relationship Specialty Start Date End Date Que Chavez MD [address] [place] [address] PCP - General Pediatrics 01/19/17 Streetcar Dispatcher Relationship Specialty Start Date End Date Que Chavez MD [address] [place] [address] PCP - General Pediatrics 01/19/17 Streetcar Dispatcher Relationship Specialty Start Date End Date Que Chavez MD [address] [place] [address] PCP - General Pediatrics 01/19/17 Streetcar Dispatcher Relationship Specialty Start Date End Date Que Chavez MD [address] [place] [address] PCP - General Pediatrics 01/19/17 Streetcar Dispatcher Relationship Specialty Start Date End Date Que Chavez MD [address] [place] [address] PCP - General Pediatrics 01/19/17 Streetcar Dispatcher Relationship Specialty Start Date End Date Que Chavez MD [address] [place] [address] PCP - General Pediatrics 01/19/17 Streetcar Dispatcher Relationship Specialty Start Date End Date Que Chavez MD [address] [place] [address] PCP - General Pediatrics 01/19/17 Streetcar Dispatcher Relationship Specialty Start Date End Date Que Chavez MD [address] [place] [address] PCP - General Pediatrics 01/19/17 Streetcar Dispatcher Relationship Specialty Start Date End Date Que Chavez MD [address] [place] [address] PCP - General Pediatrics 01/19/17 Streetcar Dispatcher Relationship Specialty Start Date End Date Que Chavez MD [address] [place] [address] PCP - General Pediatrics 01/19/17 Streetcar Dispatcher Relationship Specialty Start Date End Date Que Chavez MD [address] [place] [address] PCP - General Pediatrics 01/19/17 Streetcar Dispatcher Relationship Specialty Start Date End Date Que Chavez MD [address] [place] [address] PCP - General Pediatrics 01/19/17 Streetcar Dispatcher Relationship Specialty Start Date End Date Que Chavez MD [address] [place] [address] PCP - General Pediatrics 01/19/17 Streetcar Dispatcher Relationship Specialty Start Date End Date Que Chavez MD [address] [place] [address] PCP - General Pediatrics 01/19/17 Streetcar Dispatcher Relationship Specialty Start Date End Date Que Chavez MD [address] [place] [address] PCP - General Pediatrics 01/19/17 Streetcar Dispatcher Relationship Specialty Start Date End Date Que Chavez MD [address] [place] [address] PCP - General Pediatrics 01/19/17 Streetcar Dispatcher Relationship Specialty Start Date End Date Ruiz Vega DO [address] [place] [address] PCP - General Family Medicine 08/13/24 Streetcar Dispatcher Relationship Specialty Start Date End Date Ruiz Vega DO [address] [place] [address] PCP - General Family Medicine 08/13/24 Maria Alejandra Morel, CAMPUS RECRUITER.ENVIRONMENTAL SCIENCE INSTRUCTOR [address] [place] [address] Administration Physician Family Medicine 08/16/24 Streetcar Dispatcher Relationship Specialty Start Date End Date Ruiz Vega DO [address] [place] [address] PCP - General Family Medicine 08/13/24 Maria Alejandra Morel, CAMPUS RECRUITER.ENVIRONMENTAL SCIENCE INSTRUCTOR [address] [facility] [place] [address] Administration Physician Family Medicine 08/16/24 Sheri Harrison, CAMPUS RECRUITER.ENVIRONMENTAL SCIENCE INSTRUCTOR [address] [place] [address] Administration Physician Family Medicine 08/20/24 Team Status: Active Member Role/Relationship Status Dates Dr. Ruiz Vega DO Primary Care Provider Active Team Status: Inactive Member Role/Relationship Status Dates Dr. Ruiz Vega DO Primary Care Provider Active Start: September 04, 2024 End: September 04, 2024 Dr. Conrado Richardson MD Emergency Provider Active S tart: September 04, 2024 End: September 04, 2024 Streetcar Dispatcher Relationship Specialty Start Date End Date Ruiz Vega DO [address] [place] [address] PCP - General Family Medicine 08/13/24 Maria Alejandra Morel, CAMPUS RECRUITER.ENVIRONMENTAL SCIENCE INSTRUCTOR [address] [place] [address] [facility] 08/16/24 Sheri Harrison, CAMPUS RECRUITER.ENVIRONMENTAL SCIENCE INSTRUCTOR [address] [place] [address] [facility] 08/[facility]/24 Streetcar Dispatcher Relationship Specialty Start Date End Date Ruiz Vega DO [address] [facility] [place] [address] PCP - General Family Medicine 08/13/24 AdrielMaria Alejandra, CAMPUS RECRUITER.ENVIRONMENTAL SCIENCE INSTRUCTOR [address] [facility] [place] [address] Administration Physician Family Medicine 08/16/24 Sheri Harrison, CAMPUS RECRUITER.ENVIRONMENTAL SCIENCE INSTRUCTOR [address] [place] [address] Administration Physician Family Medicine 08/20/24 Streetcar Dispatcher Relationship Specialty Start Date End Date Ruiz Vega DO [address] [place] [address] PCP - General Family Medicine 08/13/24 Maria Alejandra Morel, CAMPUS RECRUITER.ENVIRONMENTAL SCIENCE INSTRUCTOR [address] [place] [address] Administration Physician Family Medicine 08/16/24 Sheri Harrison APRN.ENVIRONMENTAL SCIENCE INSTRUCTOR [address] [place] [address] Administration Physician Family Medicine 08/20/24 Streetcar Dispatcher Relationship Specialty Start Date End Date Ruiz Vega DO [address] [place] [address] PCP - General Family Medicine 08/13/24 Maria Alejandra Morel, CAMPUS RECRUITER.ENVIRONMENTAL SCIENCE INSTRUCTOR [address] [place] [address] Administration Physician Family Medicine 08/16/24 Sheri Harrison CAMPUS RECRUITER.ENVIRONMENTAL SCIENCE INSTRUCTOR [address] [place] [address] Administration Physician Family Medicine 08/20/24 Streetcar Dispatcher Relationship Specialty Start Date End Date Ruiz Vega DO [address] [place] [address] PCP - General Family Medicine 08/13/24 Maria Alejandra Morel, CAMPUS RECRUITER.ENVIRONMENTAL SCIENCE INSTRUCTOR [address] [place] [address] Administration Physician Family Medicine 08/16/24 Sheri Harrison, CAMPUS RECRUITER.ENVIRONMENTAL SCIENCE INSTRUCTOR [address] [place] [address] Administration Physician Family Medicine 08/20/24 Streetcar Dispatcher Relationship Specialty Start Date End Date Ruiz Vega DO [address] [place] [address] PCP - General Family Medicine 08/13/24 Maria Alejandra Morel, CAMPUS RECRUITER.ENVIRONMENTAL SCIENCE INSTRUCTOR [address] [place] [address] Administration Physician Family Medicine 08/16/24 Sheri Harrison, CAMPUS RECRUITER.ENVIRONMENTAL SCIENCE INSTRUCTOR [address] [place] [address] Administration Physician Family Medicine 08/20/24 Streetcar Dispatcher Relationship Specialty Start Date End Date Ruiz Vega DO [address] [place] [address] PCP - General Family Medicine 08/13/24 Maria Alejandra Morel, CAMPUS RECRUITER.ENVIRONMENTAL SCIENCE INSTRUCTOR [address] [place] [address] Administration Physician Family Medicine 08/16/24 Sheri Harrison, CAMPUS RECRUITER.ENVIRONMENTAL SCIENCE INSTRUCTOR [address] [place] [address] Administration Physician Family Medicine 08/20/24 Streetcar Dispatcher Relationship Specialty Start Date End Date Ruiz Vega DO [address] [place] [address] PCP - General Family Medicine 08/13/24 Maria Alejandra Morel, CAMPUS RECRUITER.ENVIRONMENTAL SCIENCE INSTRUCTOR [address] [place], [place] [address] [facility] 08/16/24 Hunter Sherisusannah Cooper, CAMPUS RECRUITER.ENVIRONMENTAL SCIENCE INSTRUCTOR [address] [place], [place] [address] [facility] 08/20/24 Team Status: Inactive Member Role/Relationship Status Dates Dr. Ruiz Vega DO Primary Care Provider Active Start: September 04, 2024 End: September 04, 2024 Dr. Conrado Richardson MD Attending Provider Active S tart: September 04, 2024 End: September 04, 2024 Dr. Conrado Richardson MD Emergency Provider Active S tart: September 04, 2024 End: September 04, 2024 Team Status: Inactive Member Role/Relationship Status Dates Dr. Ruiz Vega DO Primary Care Provider Active Start: October 12, 2024 End: October 13, 2024 Delfina Watson CNM Attending Provider Active St art: October 12, 2024 End: October 13, 2024 Goals (unrecognized section and content) Goals may be documented in a n alternate sectionGoals may be documented in an alternate section INFORMATION SOURCE (unrecogn ized section and content) DATE CREATED AUTHOR 10/08/2024 [facility] DATE CREATED AUTHOR AUTHOR'S TYRONE ATLILLIAN 10/11/2024 [facility] FOR RECORDS PERTAINING TO PATIENTS WHO ARE [...] BE BASED ON THE PRIMARY CLINICAL RECORDS. [employer] provides no warranty or guarantee of the accuracy or completeness of information in this document.
--- OUTSIDE RECORDS SUMMARY | 2024-10-13 08:11 | XMS RPT_ITS | CCD ---
Author Organization [facility] Care Team Providers Care Drawbridge Tender Name Role Phone Que Chavez MD Primary Care Provider Unavailable Primary Care Provider Unavailbelkis e Ruiz Vega DO Primary Care Provider [facility] FLAKER TENDER.Maria Alejandra ALVES Unavailable [phone] [place] FLAKER TENDER.Sheri ALVES Unavailable Dr. Ruiz Vega DO Primary Care Provider Dylan MUIR, Dr. Camp Emergency Provider [phone] [place] Admitting Unavailable Vega, Ruiz [...] Unavailable Dylan MUIR, Dr. Camp Attending Provider Delfina Watson CNM Attending Provider [phone] Allergies Allergy Classification Reported Allergen(s) Allergy Type Date of Onset Reaction(s) Facility (20 sources) Seasonal allergy; Translations: [SEASONAL ALLERGIES] Propensity to adverse reactions 8 Other: See Comments [facility] Medications Current Medications Medication Drug Class(es) Dates Sig (Normalized) Sig (Original) [id number] 200 actuat albuterol 0.09 mg/actuat metered dose [...] (FLONASE) 50 mcg/actuation nasal spray Use 1 Chamberlain in each nostril once daily. 1 Each 3 07/29/2023 02/21/2024 Discontinued Comment on above: Use 1 Chamberlain in each nostril once daily. Inhalational Spacing [...] 5 days. 15 tablet 10/31/2023 11/05/2023 Active Ofuioa68-Bevd Fum-Folic Ac-Om3 (One A Day Women's Dha) 28 mg iron- 800 mcg combo pack (2 sources) Start: 02-24-2024 Zzpdly56-Imgu Fum-Folic Ac-Om3 (One A Day Women's Dha) 28 mg iron- 800 mcg combo pack Active 1 NMA PO February 24, 2024 1:00am Start: 02-24-2024 Glzldk31-Zrol Fum-Folic Ac-Om3 (One A Day Women's Dha) 28 mg iron- 800 mcg combo pack Active NMA PO February 24, 2024 1:00am Zhkcsslt-Em-Jzd-Fe-FA tab (20 sources) Start: 04-27-2024 take 1 tablet by mouth once daily Biivsvax-Xg-Bfo-Fe-FA tab Take 1 tablet by mouth once daily. With folic acid and DHA as covered by insurance. 90 tablet 3 04/27/2024 Active Start: 04-27-2024 End: 07-26-2024 take 1 tablet by mouth once daily Pyujdkkq-Ro-Nbi-Fe-FA tab Take 1 tablet by mouth once [...] 08/25/2023 10/31/2023 Discontinued 168 hr ethinyl estradiol 0.41478 mg/hr / norelgestromin 0.21415 mg/hr transdermal system (2 sources) Progestin, Estrogen [...] take 1 capsule by mouth once daily L.acid,qzdhn-flqmlv-f actoferr (CLAIRVEE) 5 billion cell- 400 mcg DFE cpDR Take 1 capsule by mouth once daily. For 15 days out of the month. 10/31/2023 Discontinued take 1 capsule by mo uth once daily L.acid,fscxe-jzhegf-fnzgljyzk (CLAIRVEE) 5 billion cell- 400 mcg DFE cpDR Take 1 capsule by mouth once daily. For 15 days out of the month. Active take 1 capsule by mo uth once daily L.acid,bxiut-dlepkl-azsjdcfxq (CLAIRVEE) 5 billion cell- 400 mcg DFE [...] REFRIGERATED 30 capsule 11 07/29/2023 Active Lacto No.32-Ckwfpm-Tsp-Larch 25B cell-25B cell-50 mg capsule (2 sources) Start: 10-04-2023 End: 10-12-2024 Lacto No.51-Bgnmfo-Gye-Larch 25B cell-25B cell-50 mg capsule Discontinued NMA PO October 04, 2023 12:00am October 12, 2024 11:37pm Start: 10-04-2023 Lacto No.76-Bi dchs-Rcz-Ifydi 25B cell-25B cell-50 mg capsule Active NMA [...] Comment on above: Take 1 tablet by [facility] twice daily for 7 days. naproxen 500 [...] Translations: [Vaginal discharge during in third trimester ([facility])] Onset: 5 Episodic Other gastrointestinal disorders (1 source) Heartburn; Translations: [Heartburn during in third trimester ([facility])] Onset: Episodic Other inflammatory condition of skin [...] 5 Glucose Ql (U) Negative Neg mg/dL [facility] Interpretation and review of laboratory results Normal [facility] Protein.monoclonal (U) [Mass/Vol] Negative Neg mg/dL [facility] URINE OB DIP B/Oon 5 Glucose Ql (U) Negative Neg mg/dL [facility] Protein.monoclonal (U) [Mass/Vol] Negative Neg mg/dL [facility] URINE OB DIP B/Oon 5 Glucose Ql (U) Negative Neg mg/dL [facility] Interpretation and review of laboratory results Normal [facility] Protein.monoclonal (U) [Mass/Vol] Negative Neg mg/dL [facility] ROUTINE, GROUP B ST REPTOCOCCUS BY PCRon 09-12-2024 ROUTINE, GROUP B STREPTOCOCCUS BY PCR Detected Abnormal [facility] Comment on above: Performed By: #### G BPCR ####[facility] [id number] [place] [address] [place] [facility] URINE OB DIP B/Oon 5 Glucose Ql (U) Negative Neg mg/dL [facility] Protein.monoclonal (U) [Mass/Vol] trace Neg mg/dL [facility] 12 Lead EKGon 09-04-2024 12 Lead EKG [facility] Cardiovascular Services [address] [place] [address] 12 Lead EKG 09/04/24 1024 MR#: [id number] Acct: [id number] Name: AMIRAH WOODARD Rep #: [id number] : 2005 19 From: Flo Smith MD [...] Abnormal ECG Confirmed by FLO SMITH MD ([id number]), video news editor KAREN WATERS ([id number]) on 09/05/2024 1:39:37 PM Referred By: Confirmed By: FLO SMITH MD 09/05/24 1339 Date Flo Smith MD CC: Dr. Conrado Richardson MD; Dr. Ruiz Vega DO Signed Normal [facility] Absolute lymphocyte countOrd ered By: Conrado Richardson on 09-04-2024 Lymphocytes Auto (Unsp spec) [#/Vol] 1.97 10*3/uL 0.83-4.51 [facility] Absolute neutrophil countOrd ered By: Conrado Richardson on 09-04-2024 Neutrophils (Bld) [#/Vol] 8.4 10*3/uL High 2.0-7.7 [facility] Anion gap in Serum or Plasma Ordered By: Conrado Richardson on 09-04-2024 Anion gap [Moles/Vol] 11 mmol/L 5-15 [facility] Automated lymphocyte count a s percentage of total leukocytesOrdered By: Conrado Richardson on 09-04-2024 Lymphocytes/100 WBC Auto (Unsp spec) 16.7 % Low 19-41 [facility] BUN/creatinine ratioOrdered By: Conrado Richardson on 09-04-2024 Urea nitrogen/Creatinine [Mass ratio] 15.7 mg/mg 10- [facility] Basic Metabolic Profile (BMP )on 09-04-2024 BUN/CRE 15.7 RATIO Normal - [facility] Comment on above: Performed By: #### L 100.0100, L500.2500, L501.4021 #### [facility] [address] [place], [address] Calcium [Mass/Vol] 8.7 mg/dL Normal 7.6-11.0 [facility] Comment on above: Performed By: #### L 100.0100, L500.2500, L501.4021 #### [facility] [address] [place], [address] Chloride [Moles/Vol] 105 mmol/L Normal 98-108 [facility] Comment on above: Performed By: #### L 100.0100, L500.2500, L501.4021 #### [facility] [address] [place], [address] CO2 [Moles/Vol] 20.3 mmol/L Low 21.0-32.0 [facility] Comment on above: Performed By: #### L 100.0100, L500.2500, L501.4021 #### [facility] [address] [place], [address] Creatinine [Mass/Vol] 0.45 mg/dL Low 0.70-1.20 [facility] Comment on above: Performed By: #### L 100.0100, L500.2500, L501.4021 #### [facility] [address] [place], [address] ECRCL 226.86 ml/min Normal 50-250 [facility] Comment on above: Performed By: #### L 100.0100, L500.2500, L501.4021 #### [facility] [address] [place], [address] GAP 11 Normal 5-15 [facility] Comment on above: Performed By: #### L 100.0100, L500.2500, L501.4021 #### [facility] [address] [place], [address] GFR/1.73 sq M.predicted among non-blacks MDRD (S/P/Bld) [Vol rate/Area] 141 mL/min/{1.73_m2} Normal >60 [facility] Comment on above: Result Comment: mL/m in/1.73m2 CKD-EPI Creatinine Equation (2020) Performed By: #### L 100.0100, L500.2500, L501.4021 #### [facility] [address] [place], [address] Glucose [Mass/Vol] 91 mg/dL Normal 70-99 [facility] Comment on above: Performed By: #### L 100.0100, L500.2500, L501.4021 #### [facility] [address] [place], [address] Potassium [Moles/Vol] 3.8 mmol/L Normal 3.3-5.1 [facility] Comment on above: Performed By: #### L 100.0100, L500.2500, L501.4021 #### [facility] [address] [place], [address] Sodium [Moles/Vol] 137 mmol/L Normal 133-145 [facility] Comment on above: Performed By: #### L 100.0100, L500.2500, L501.4021 #### [facility] [address] [place], [address] Urea nitrogen [Mass/Vol] 7 mg/dL Normal 4-19 [facility] Comment on above: Performed By: #### L 100.0100, L500.2500, L501.4021 #### [facility] [address] [place], [address] Basophil percentageOrdered B y: Conrado Richardson on 09-04-2024 Basophils/100 WBC (Bld) 0.5 % 0-1 [facility] CBC W/Diff, Automatedon Absolute Lymph 1.97 X10 3/uL Normal 0.83-4.51 [facility] Comment on above: Performed By: #### L 100.0100, L500.2500, L501.4021 #### [facility] [address] [place], [address] Absolute Neut 8.4 X10 3/uL High 2.0-7.7 [facility] Comment on above: Performed By: #### L 100.0100, L500.2500, L501.4021 #### [facility] [address] [place], [address] Basophils/100 WBC (Bld) 0.5 % Normal 0-1 [facility] Comment on above: Performed By: #### L 100.0100, L500.2500, L501.4021 #### [facility] [address] [place], [address] Eosinophils/100 WBC (Bld) 2.2 % Normal 0-5 [facility] Comment on above: Performed By: #### L 100.0100, L500.2500, L501.4021 #### [facility] [address] [place], [address] Erythrocyte distribution width (RBC) [Ratio] 13.2 % Normal 11.6-14.6 [facility] Comment on above: Performed By: #### L 100.0100, L500.2500, L501.4021 #### [facility] [address] [place], [address] Hematocrit (Bld) [Volume fraction] 35.4 % Low 37-47 [facility] Comment on above: Performed By: #### L 100.0100, L500.2500, L501.4021 #### [facility] [address] [place], [address] Hemoglobin (Bld) [Mass/Vol] 11.6 g/dL Low 12.0-15.0 [facility] Comment on above: Performed By: #### L 100.0100, L500.2500, L501.4021 #### [facility] [address] [place], [address] IG% 1.200 High 0.0-0.9 [facility] Comment on above: Result Comment: IG% - Immature Granulocytes (promyelocytes, myelocytes and metamyelocytes) > 1% indicates that a LEFT SHIFT is Present. Performed By: #### L 100.0100, L500.2500, L501.4021 #### [facility] [address] [place], [address] Lymphocytes/100 WBC (Bld) 16.7 % Low 19-41 [facility] Comment on above: Performed By: #### L 100.0100, L500.2500, L501.4021 #### [facility] [address] [place], [address] MCH (RBC) [Entitic mass] 27.5 pg Normal 27.0-32.0 [facility] Comment on above: Performed By: #### L 100.0100, L500.2500, L501.4021 #### [facility] [address] [place], [address] MCHC (RBC) [Mass/Vol] 32.8 g/dL Normal 32-36 [facility] Comment on above: Performed By: #### L 100.0100, L500.2500, L501.4021 #### [facility] [address] [place], [address] MCV (RBC) [Entitic vol] 83.9 fL Normal 81-99 [facility] Comment on above: Performed By: #### L 100.0100, L500.2500, L501.4021 #### [facility] [address] [place], [address] Monocytes/100 WBC (Bld) 8.8 % Normal 0-10 [facility] Comment on above: Performed By: #### L 100.0100, L500.2500, L501.4021 #### [facility] [address] [place], [address] Neutrophils/100 WBC (Bld) 70.6 % High 47-70 [facility] Comment on above: Performed By: #### L 100.0100, L500.2500, L501.4021 #### [facility] [address] [place], [address] Nucleated RBC (Bld) [#/Vol] 0 10*3/uL Normal 0-5 [facility] Comment on above: Performed By: #### L 100.0100, L500.2500, L501.4021 #### [facility] [address] [place], [address] Platelet mean volume (Bld) [Entitic vol] 9.4 fL Normal 6.2-12.0 [facility] Comment on above: Performed By: #### L 100.0100, L500.2500, L501.4021 #### [facility] [address] [place], [address] Platelets (Bld) [#/Vol] 256 10*3/uL Normal 150-450 [facility] Comment on above: Performed By: #### L 100.0100, L500.2500, L501.4021 #### [facility] [address] [place], [address] RBC (Bld) [#/Vol] 4.22 10*6/uL Normal 4.2-5.4 [facility] Comment on above: Performed By: #### L 100.0100, L500.2500, L501.4021 #### [facility] [address] [place], [address] RDW SD 40.2 fl Normal 35.1-43.9 [facility] Comment on above: Performed By: #### L 100.0100, L500.2500, L501.4021 #### [facility] [address] [place], [address] WBC (Bld) [#/Vol] 11.8 10*3/uL High 4.4-11.0 [facility] Comment on above: Performed By: #### L 100.0100, L500.2500, L501.4021 #### [facility] [address] [place], [address] Rodrick 09-04-2024 JOSELYNN Telephone (OBGYWM) AMIRAH WOODARD ([id number]) 3 F Date Time Provider Department 09/04/24 DLEFINA WATSON During your visit today, we recorded [...] sprays in each nostril once daily. - Gwplcbpl-Fn-Pvw-Fe-FA tab Take 1 tablet by mouth once [...] Status:Closed by KIA BRASHER on 09/04/24 Normal [facility] CTA Chest W/WO Contraston CTA Chest W/WO Contrast [facility] Imaging Services [address] [place] [address] CTA Chest W/WO Contrast MR#: [id number] Acct: [id number] Name: AMIRAH WOODARD Rep #: [id number] : 2005 F 19 From: Gurjit Moreno MD PCP: Dr. Ruiz Vega, DO Status: REG ER Study: CTA Chest W/WO Contrast Date of Exam: 09/04/24 Exam# [id number] Ordering Dr: Conrado Richardson MD PROCEDURE: CTA [...] dissection No acute pulmonary process Reading Location: [id number] CC: Dr. Conrado Richardson MD; Dr. Ruiz Vega DO Sweat Box Attendant: Signed Normal [facility] Carbon dioxide, total [Moles /volume] in Central venous bloodOrdered By: Conrado Richardson on 09-04-2024 CO2 [Moles/Vol] 20.3 mmol/L Low 21.0-32.0 [facility] Chloride assayOrdered By: Wilson Richardson on 09-04-2024 Chloride [Moles/Vol] 105 mmol/L 98-108 [facility] Emergency Department Summary on 09-04-2024 Emergency Department Summary [facility] Medical Records Department [address] [place] [address] Emergency Department Summary 09/04/24 MR#: [id number] Acct: [id number] Name: AMIRAH WOODARD Rep #: [id number] : 2005 19 From: Conrado Richardson MD PCP: Dr. Riuz Vega DO Status:REG ER Location: ED HPI [...] discomfort that was diffuse. Lightheadedness. Saw her BIOASSAYIST in the office Dr. Adrienne Marin. Who [...] Factors: Negative for Marfan's Syndrome or Hypertension [facility] Medical History Left ankle pain Home Medications ???Medication ???Instructions ???Recorded ???Last Taken ???Type Lactobacillus 25 billion cap PO 10/04/23 Unknown History cell-Bifido 25 billion fdyw-WCX-qeaoh capsule albuterol sulfate 90 mcg/actuation inhalation 10/04/23 [...] the ankles bilaterally. Dorsi plantarflexion intact. Normal dressmaker or tailor strength. Normal radial pulses. Back nontender. Neurologically [...] for ob (more content not included)... Normal [facility] Eosinophil percentageOrdered By: Conrado Richardson on 09-04-2024 Eosinophils/100 WBC (Bld) 2.2 % 0-5 [facility] Erythrocyte distribution wid th ratioOrdered By: Conrado Richardson on 09-04-2024 Erythrocyte distribution width (RBC) [Ratio] 13.2 % 11.6-14.6 [facility] Erythrocyte distribution wid th standard deviationOrdered By: Conrado Richardson on 09-04-2024 Erythrocyte distribution width (RBC) [Ratio] 40.2 fl 35.1-43.9 [facility] Glomerular filtration rate ( GFR) estimation/1.73 sq m using serum, plasma, or whole bOrdered By: Conrado Richardson on 09-04-2024 GFR/1.73 sq M.predicted among non-blacks MDRD (S/P/Bld) [Vol rate/Area] 141 mL/min/{1.73_m2} >60 [facility] Comment on above: mL/min/1.73m2 CKD-EP I Creatinine Equation (2020) Hematocrit Auto (Bld) [Volum e fraction]Ordered By: Conrado Richardson on 09-04-2024 Hematocrit (Bld) [Volume fraction] 35.4 % Low 37-47 [facility] Hemoglobin measurementOrdere d By: Conrado Richardson on 09-04-2024 Hemoglobin (Bld) [Mass/Vol] 11.6 g/dL Low 12.0-15.0 [facility] Immature granulocytes/100 WB C Auto (Bld)Ordered By: Conrado Richardson on 09-04-2024 Immature granulocytes/100 WBC (Bld) 1.200 % High 0.0-0.9 [facility] Comment on above: IG% - Immature Granu locytes (promyelocytes, myelocytes and metamyelocytes) > 1% indicates that a LEFT SHIFT is Present. L501.4021on 09-04-2024 Trop T High Sen 7 ng/L Normal <=14 [facility] Comment on above: Performed By: #### L 100.0100, L500.2500, L501.4021 #### [facility] [address] [place], [place], [id number] MCV (mean corpuscular volume ) determinationOrdered By: Conrado Richardson on 09-04-2024 MCV (RBC) [Entitic vol] 83.9 fL 81-99 [facility] Mean corpuscular hemoglobin (MCH) determinationOrdered By: Conrado Richardson on 09-04-2024 MCH (RBC) [Entitic mass] 27.5 pg 27.0-32.0 [facility] Mean corpuscular hemoglobin concentration (MCHC) determinationOrdered By: Conrado Richardson on 09-04-2024 MCHC (RBC) [Mass/Vol] 32.8 g/dL 32-36 [facility] Mean platelet volume determi nationOrdered By: Conrado Richardson on 09-04-2024 Platelet mean volume (Bld) [Entitic vol] 9.4 fL 6.2-12.0 [facility] Monocyte percentageOrdered B y: Conrado Richardson on 09-04-2024 Monocytes/100 WBC (Bld) 8.8 % 0-10 [facility] Neutrophil percentageOrdered By: Conrado Richardson on 09-04-2024 Neutrophils/100 WBC (Bld) 70.6 % High 47-70 [facility] Nucleated red blood cell per centageOrdered By: Conrado Richardson on 09-04-2024 Nucleated RBC/100 WBC (Bld) [Ratio] 0 % 0-5 [facility] Platelet countOrdered By: Wilson Richardson on 09-04-2024 Platelets (Bld) [#/Vol] 256 10*3/uL 150-450 [facility] Potassium measurement (mass/ volume)Ordered By: Conrado Richardson on 09-04-2024 Potassium (Unsp spec) [Mass/Vol] 3.8 mmol/L 3.3-5.1 [facility] RBC Auto (Bld) [#/Vol]Ordere d By: Conrado Richardson on 09-04-2024 RBC (Bld) [#/Vol] 4.22 10*6/uL 4.2-5.4 [facility] Serum creatinine measurement (mass/volume)Ordered By: Conrado Richardson on 09-04-2024 Creatinine [Mass/Vol] 0.45 mg/dL Low 0.70-1.20 [facility] Serum glucose measurement (m ass/volume)Ordered By: Conrado Richardson on 09-04-2024 Glucose [Mass/Vol] 91 mg/dL 70-99 [facility] Serum or plasma calcium tra urement (mass/volume)Ordered By: Conrado Richardson on 09-04-2024 Calcium [Mass/Vol] 8.7 mg/dL 7.6-11.0 [facility] Serum or plasma urea nitroge n measurement (mass/volume)Ordered By: Conrado Richardson on 09-04-2024 Urea nitrogen [Mass/Vol] 7 mg/dL 4-19 [facility] Sodium levelOrdered By: Conrado Richardson on 09-04-2024 Sodium [Moles/Vol] 137 mmol/L 133-145 [facility] Troponin T.cardiac [Mass/vol ume] in Serum or Plasma by High sensitivity methodOrdered By: Conrado Richardson on 09-04-2024 Troponin T.cardiac High sensitivity method [Mass/Vol] 7 ng/L <14 [facility] URINE OB DIP B/Oon 5 Glucose Ql (U) Negative Neg mg/dL [facility] Protein.monoclonal (U) [Mass/Vol] trace Neg mg/dL [facility] White blood cell (WBC) count Ordered By: Conrado Richardson on 09-04-2024 WBC (Bld) [#/Vol] 11.8 10*3/uL High 4.4-11.0 [facility] URINE OB DIP B/Oon 5 Glucose Ql (U) Negative Neg mg/dL [facility] Interpretation and review of laboratory results Normal [facility] Protein.monoclonal (U) [Mass/Vol] Negative Neg mg/dL [facility] CNOVon 08-13-2024 CNOV Office Visit (FAMPWS ) SHAHZAD WOODARDJOSHAileen Clifford ([id number]) 3 F Date Time Provider Department 08/13/24 9:20 AM [facility] During your visit today, we recorded the [...] Rhonda. - Planning a vaginal delivery at [place]. - Taking vitamins; denies nausea or emesis. 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 Recording using [employer] software for draft documentation of the visit was discussed with the patient/authorized desk representative; all questions welcomed and answered. Patient/authorized desk representative agreed to proceed Allergies As of [...] (CLARITIN ORA (more content not included)... Normal [facility] CNPNon 08-06-2024 CNPN Telephone (OBGYWM) AMIRAH WOODARD ([id number]) 3 F Date Time Provider Department 08/06/24 [place] OBGYWM During your visit today, we recorded the following information about you: Caroline Mora RN 08/06/2024 12:39 PM Signed Breast pump request received from [employer]. Order to provider to sign. JIA Shane [...] sprays in each nostril once daily. - Dxbmnpdc-Ej-Dbq-Fe-FA tab Take 1 tablet by mouth once [...] Encounter Status:Closed by CAROLINE MORA on 08/08/24 [facility] 08-03-2024 [facility] Telephone (OGFVWE) AMIRAH WOODARD ([id number]) 3 F Date Time Provider Department 08/03/24 NURSE CLINICAL BUSINESS MANAGER FRVW KAITY OGFVWE During your visit today, [...] sprays in each nostril once daily. - Jwvzuran-Ex-Lbl-Fe-FA tab Take 1 tablet by mouth once [...] Status:Closed by TIO HUTCHISON on 08/03/24 Normal [facility] BILE ACIDS, TOTALon 08-02-19 25 Bile acid [Moles/Vol] 5.3 umol/L Normal <13.6 [facility] Comment on above: Order Comment: Speci men Type: SWAB Ordering Facility: [facility] Address: [address] [place] [address] Result Comment: Refe rence interval applies to [...] Performed By: #### C VTV, BVAMP #### [facility] CLIA [id number] [address] [place], [place] [id number] [place] CBC W Auto Differential pane l (Bld)on 08-01-2024 Basophils (Bld) [#/Vol] 0.09 10*3/uL [facility] Basophils/100 WBC (Bld) 0.6 % [facility] Differential cell count method Nom (Bld) Auto [facility] Eosinophils (Bld) [#/Vol] 0.82 10*3/uL High [facility] Eosinophils/100 WBC (Bld) 5.8 % [facility] Erythrocyte distribution width (RBC) [Ratio] 12.6 % 11.5 - 15.0 % [facility] Hematocrit (Bld) [Volume fraction] 36.5 % 36.0 - 46.0 % [facility] Hemoglobin (Bld) [Mass/Vol] 12 g/dL 11.5 - 15.5 g/dL [facility] Immature granulocytes (Bld) [#/Vol] 0.25 10*3/uL High [facility] Immature granulocytes/100 WBC (Bld) 1.8 % [facility] Interpretation and review of laboratory results Abnormal [facility] Lymphocytes (Bld) [#/Vol] 2.2 10*3/uL [facility] Lymphocytes/100 WBC (Bld) 15.6 % [facility] MCH (RBC) [Entitic mass] 28 pg 26.0 - 34.0 pg [facility] [facility] MCHC (RBC) [Mass/Vol] 32.9 g/dL 30.5 - 36.0 g/dL [facility] MCV (RBC) [Entitic vol] 85.3 fL 80.0 - 100.0 fL [facility] Monocytes (Bld) [#/Vol] 0.92 10*3/uL High [facility] Monocytes/100 WBC (Bld) 6.5 % [facility] Neutrophils (Bld) [#/Vol] 9.86 10*3/uL High [facility] Neutrophils/100 WBC (Bld) 69.7 % [facility] Nucleated RBC (Bld) [#/Vol] [facility] Nucleated RBC/100 WBC (Bld) [Ratio] 0 % /100 WBC [facility] Platelet mean volume (Bld) [Entitic vol] 9.1 fL 9.0 - 12.7 fL [facility] Platelets (Bld) [#/Vol] 282 10*3/uL [facility] RBC (Bld) [#/Vol] 4.28 10*6/uL 3.90 - 5.2 0 m/uL [facility] WBC (Bld) [#/Vol] 14.14 10*3/uL High [facility] Basophils (Bld) [#/Vol] 0.09 10*3/uL Normal <0.11 [facility] Comment on above: Order Comment: Speci men Type: BLOOD SPECIMENOrdering Facility: [facility] Address: [address] [place], [place] [address] Performed By: #### 5 7021-8 ####[facility] [id number] [place] [address] [place] Basophils/100 WBC (Bld) 0.6 % Normal [facility] Comment on above: Order Comment: Speci men Type: BLOOD SPECIMENOrdering Facility: [facility] Address: [address] [place] [address] Performed By: #### 5 7021-8 ####[facility] [id number] [place] [address] [place] Differential cell count method Nom (Bld) Auto Normal [facility] Comment on above: Order Comment: Speci men Type: BLOOD SPECIMENOrdering Facility: [facility] Address: [address] [place] [address] Performed By: #### 5 7021-8 ####[facility] [id number] [place] [address] [place] Eosinophils (Bld) [#/Vol] 0.82 10*3/uL High <0.46 [facility] Comment on above: Order Comment: Speci men Type: BLOOD SPECIMENOrdering Facility: [facility] Address: [address] [place] [address] Performed By: #### 5 7021-8 ####[facility] [id number] [place] [address] [place] Eosinophils/100 WBC (Bld) 5.8 % Normal [facility] Comment on above: Order Comment: Speci men Type: BLOOD SPECIMENOrdering Facility: [facility] Address: [address] [place] [address] Performed By: #### 5 7021-8 ####[facility] [id number] [place] [address] [place] Erythrocyte distribution width (RBC) [Ratio] 12.6 % Normal 11.5-15.0 [facility] Comment on above: Order Comment: Speci men Type: BLOOD SPECIMENOrdering Facility: [facility] Address: [address] [place] [address] Performed By: #### 5 7021-8 ####[facility] NEAL [id number] [place] [address] [place] Hematocrit (Bld) [Volume fraction] 36.5 % Normal 36.0-46.0 [facility] Comment on above: Order Comment: Speci men Type: BLOOD SPECIMENOrdering Facility: [facility] Address: [address] [place] [address] Performed By: #### 5 7021-8 ####[facility]ENTERNCMILVIA [id number] [place] [address] [place] Hemoglobin (Bld) [Mass/Vol] 12.0 g/dL Normal 11.5-15.5 [facility] Comment on above: Order Comment: Speci men Type: BLOOD SPECIMENOrdering Facility: [facility] Address: [address] [place] [address] Performed By: #### 5 7021-8 ####[facility] CENTERANNAHilario [id number] [place] [address] [place] Immature granulocytes (Bld) [#/Vol] 0.25 10*3/uL High <0.10 [facility] Comment on above: Order Comment: Speci men Type: BLOOD SPECIMENOrdering Facility: [facility] Address: [address] [place] [address] Performed By: #### 5 7021-8 ####[facility]ENTERNCLIA [id number] [place] [address] [place] Immature granulocytes/100 WBC (Bld) 1.8 % Normal [facility] Comment on above: Order Comment: Speci men Type: BLOOD SPECIMENOrdering Facility: [facility] Address: [address] [place] [address] Performed By: #### 5 7021-8 ####[facility] MILLWNCLIA [id number] [place] [address] [place] Lymphocytes (Bld) [#/Vol] 2.20 10*3/uL Normal 1.00-4.00 [facility] Comment on above: Order Comment: Speci men Type: BLOOD SPECIMENOrdering Facility: [facility] Address: [address] [place] [address] Performed By: #### 5 7021-8 ####[facility]ENTERLIA [id number] [place] [address] [place] Lymphocytes/100 WBC (Bld) 15.6 % Normal [facility] Comment on above: Order Comment: Speci men Type: BLOOD SPECIMENOrdering Facility: [facility] Address: [address] [place] [address] Performed By: #### 5 7021-8 ####[facility] [id number] [place] [address] [place] MCH (RBC) [Entitic mass] 28.0 pg Normal 26.0-34.0 [facility] Comment on above: Order Comment: Speci men Type: BLOOD SPECIMENOrdering Facility: [facility] Address: [address] [place] [address] Performed By: #### 5 7021-8 ####[facility]ENTERLIA [id number] [place] [address] [place] MCHC (RBC) [Mass/Vol] 32.9 g/dL Normal 30.5-36.0 [facility] Comment on above: Order Comment: Speci men Type: BLOOD SPECIMENOrdering Facility: [facility] Address: [address] [place] [address] Performed By: #### 5 7021-8 ####[facility]ENTERNCLIA [id number] [place] [address] [place] MCV (RBC) [Entitic vol] 85.3 fL Normal 80.0-100.0 [facility] Comment on above: Order Comment: Speci men Type: BLOOD SPECIMENOrdering Facility: [facility] Address: [address] [place] [address] Performed By: #### 5 7021-8 ####[facility]ENTERNCMCK[facility] [id number] [place] [address] [place] Monocytes (Bld) [#/Vol] 0.92 10*3/uL High <0.87 [facility] Comment on above: Order Comment: Speci men Type: BLOOD SPECIMENOrdering Facility: [facility] Address: [address] [place] [address] Performed By: #### 5 7021-8 ####[facility]ENTERNCMCKAY[facility] [id number] [place] [address] [place] Monocytes/100 WBC (Bld) 6.5 % Normal [facility] Comment on above: Order Comment: Speci men Type: BLOOD SPECIMENOrdering Facility: [facility] Address: [address] [place] [address] Performed By: #### 5 7021-8 ####[facility]ENTERLI [id number] [place] [address] [place] Neutrophils (Bld) [#/Vol] 9.86 10*3/uL High 1.45-7.50 [facility] Comment on above: Order Comment: Speci men Type: BLOOD SPECIMENOrdering Facility: [facility] Address: [address] [place] [address] Performed By: #### 5 7021-8 ####[facility] CENTERNCLI [id number] [place] [address] [place] Neutrophils/100 WBC (Bld) 69.7 % Normal [facility] Comment on above: Order Comment: Speci men Type: BLOOD SPECIMENOrdering Facility: [facility] Address: [address] [place] [address] Performed By: #### 5 7021-8 ####[facility] MICAHNGOC [id number] [place] [address] [place] Nucleated RBC (Bld) [#/Vol] 10*3/uL Normal <0.01 [facility] Comment on above: Order Comment: Speci men Type: BLOOD SPECIMENOrdering Facility: [facility] Address: [address] [place] [address] Performed By: #### 5 7021-8 ####[facility]ENTERNCMILVIA [id number] [place] [address] [place] Nucleated RBC/100 WBC (Bld) [Ratio] 0.0 /100 WBC Normal [facility] Comment on above: Order Comment: Speci men Type: BLOOD SPECIMENOrdering Facility: [facility] Address: [address] [place] [address] Performed By: #### 5 7021-8 ####[facility]ENTERNCLIA [id number] [place] [address] [place] Platelet mean volume (Bld) [Entitic vol] 9.1 fL Normal 9.0-12.7 [facility] Comment on above: Order Comment: Speci men Type: BLOOD SPECIMENOrdering Facility: [facility] Address: [address] [place] [address] Performed By: #### 5 7021-8 ####[facility]ENTERNCLIA [id number] [place] [address] [place] Platelets (Bld) [#/Vol] 282 10*3/uL Normal 150-400 [facility] Comment on above: Order Comment: Speci men Type: BLOOD SPECIMENOrdering Facility: [facility] Address: [address] [place] [address] Performed By: #### 5 7021-8 ####[facility] CENTERNCLIA [id number] [place] [address] [place] RBC (Bld) [#/Vol] 4.28 10*6/uL Normal 3.90-5.20 [facility] Comment on above: Order Comment: Speci men Type: BLOOD SPECIMENOrdering Facility: [facility] Address: [address] [place] [address] Performed By: #### 5 7021-8 ####[facility] CENTERNCLIA [id number] [place] [address] [place] WBC (Bld) [#/Vol] 14.14 10*3/uL High 3.70-11.00 [facility] Comment on above: Order Comment: Speci men Type: BLOOD SPECIMENOrdering Facility: [facility] Address: [address] [place] [address] Performed By: #### 5 7021-8 ####[facility] CENTERNCLIA [id number] [place] [address] [place] Comprehensive metabolic 2000 panelOrdered By: Jazmyn Joshua on 08-01-2024 Albumin [Mass/Vol] 3.4 g/dL Low 3.9 - 4.9 g/dL [facility] ALP [Catalytic activity/Vol] 110 U/L 34 - 123 U/L [facility] ALT [Catalytic activity/Vol] 12 U/L 7 - 38 U/L [facility] Anion gap [Moles/Vol] 12 mmol/L 8 - 15 mmol/L [facility] AST [Catalytic activity/Vol] 12 U/L Low 13 - 35 U/L [facility] Bilirubin [Mass/Vol] 0.3 mg/dL 0.2 - 1.3 mg/dL [facility] Calcium [Mass/Vol] 9 mg/dL 8.5 - 10. 2 mg/dL [facility] Chloride [Moles/Vol] 105 mmol/L 98 - 107 mmol/L [facility] CO2 [Moles/Vol] 19 mmol/L Low 22 - 30 mmol/L [facility] Creatinine [Mass/Vol] 0.53 mg/dL Low 0.58 - 0.96 mg/dL [facility] GFR/1.73 sq M.predicted among non-blacks MDRD (S/P/Bld) [Vol rate/Area] 137 mL/min/{1.73_m2} - PINF [facility] Comment on above: Estimated Glomerular Filtration Rate [...] [Mass/Vol] 91 mg/dL 74 - 99 mg/dL [facility] Comment on above: The [place] Diab[employer] s Association (ADA) provides guidance for [...] Standards of Medical Care in Diabetes 2016, [place] [employer]. Diabetes Care. 2016.39(Suppl 1). Interpretation and review of laboratory results Abnormal [facility] Potassium [Moles/Vol] 3.9 mmol/L 3.7 - 5.1 mmol/L [facility] Protein [Mass/Vol] 6.3 g/dL 6.3 - 8.0 g/dL [facility] Sodium [Moles/Vol] 136 mmol/L 136 - 144 mmol/L [facility] Urea nitrogen [Mass/Vol] 9 mg/dL 7 - 21 mg/dL [facility] Comprehensive metabolic 2000 panelon 08-01-2024 Albumin [Mass/Vol] 3.4 g/dL Low 3.9-4.9 [facility] Comment on above: Order Comment: Speci men Type: SWAB [facility] Address: [address] [place] [address] Performed By: #### C VTV, BVAMP #### [facility] CLIA [id number] [address] [place] [address] [place] ALP [Catalytic activity/Vol] 110 U/L Normal 34-123 [facility] Comment on above: Order Comment: Speci men Type: SWAB [facility] Address: [address] [place] [address] Performed By: #### C VTV, BVAMP #### [facility] CLIA [id number] [address] [place] [address] [place] ALT [Catalytic activity/Vol] 12 U/L Normal 7-38 [facility] Comment on above: Order Comment: Speci men Type: SWAB [facility] Address: [address] [place] [address] Performed By: #### C VTV, BVAMP #### [facility] CLIA [id number] [address] [place] [address] [place] Anion gap [Moles/Vol] 12 mmol/L Normal 8-15 [facility] Comment on above: Order Comment: Speci men Type: SWAB [facility] Address: [address] [place] [address] Performed By: #### C VTV, BVAMP #### [facility] CLIA [id number] [address] [place] [address] [place] AST [Catalytic activity/Vol] 12 U/L Low 13-35 [facility] Comment on above: Order Comment: Speci men Type: SWAB [facility] Address: [address] [place] [address] Performed By: #### C VTV, BVAMP #### [facility] CLIA [id number] [address] [place] [address] [place] Bilirubin [Mass/Vol] 0.3 mg/dL Normal 0.2-1.3 [facility] Comment on above: Order Comment: Speci men Type: SWAB [facility] Address: [address] [place] [address] Performed By: #### C VTV, BVAMP #### [facility] CLIA [id number] [address] [place] [address] [place] Calcium [Mass/Vol] 9.0 mg/dL Normal 8.5-10.2 [facility] Comment on above: Order Comment: Speci men Type: SWAB [facility] Address: [address] [place] [address] Performed By: #### C VTV, BVAMP #### [facility] CLIA [id number] [address] [place] [address] [place] Chloride [Moles/Vol] 105 mmol/L Normal 98-107 [facility] Comment on above: Order Comment: Speci men Type: SWAB [facility] Address: [address] [place] [address] Performed By: #### C VTV, BVAMP #### [facility] CLIA [id number] [address] [place] [address] [place] CO2 [Moles/Vol] 19 mmol/L Low 22-30 [facility] Comment on above: Order Comment: Speci men Type: SWAB [facility] Address: [address] [place] [address] Performed By: #### C VTV, BVAMP #### [facility] CLIA [id number] [address] [place] [address] [place] Creatinine [Mass/Vol] 0.53 mg/dL Low 0.58-0.96 [facility] Comment on above: Order Comment: Speci men Type: SWAB [facility] Address: [address] [place] [address] Performed By: #### C VTV, BVAMP #### [facility] CLIA [id number] [address] [place] [address] [place] Creatinine and Glomerular filtration rate.predicted panel (S/P/Bld) 137 mL/min/1.73m??? Normal >=60 [facility] Comment on above: Order Comment: Violeta alvarez Type: SWAB [facility] Address: [address] [place] [address] Result Comment: Ketty mated Glomerular Filtration Rate [...] Performed By: #### C VTV, BVAMP #### [facility] CLIA [id number] [address] [place] [address] [place] Glucose [Mass/Vol] 91 mg/dL Normal 74-99 [facility] Comment on above: Order Comment: Violeta alvarez Type: SWAB [facility] Address: [address] [place] [address] Result Comment: The [place] Diabetes Association (ADA) provides guidance for cutoff [...] Standards of Medical Care in Diabetes 2016, [place] [employer]. Diabetes Care. 2016.39(Suppl 1). Performed By: #### C VTV, BVAMP #### [facility] CLIA [id number] [address] [place] [address] [place] Potassium [Moles/Vol] 3.9 mmol/L Normal 3.7-5.1 [facility] Comment on above: Order Comment: Speci men Type: SWAB [facility] Address: [address] [place] [address] Performed By: #### C VTV, BVAMP #### [facility] CLIA [id number] [address] [place] [address] [place] Protein [Mass/Vol] 6.3 g/dL Normal 6.3-8.0 [facility] Comment on above: Order Comment: Speci men Type: SWAB [facility] Address: [address] [place] [address] Performed By: #### C VTV, BVAMP #### [facility] CLIA [id number] [address] [place] [address] [place] Sodium [Moles/Vol] 136 mmol/L Normal 136-144 [facility] Comment on above: Order Comment: Speci men Type: SWAB [facility] Address: [address] [place] [address] Performed By: #### C VTV, BVAMP #### [facility] CLIA [id number] [address] [place] [address] [place] Urea nitrogen [Mass/Vol] 9 mg/dL Normal 7-21 [facility] Comment on above: Order Comment: Speci men Type: SWAB [facility] Address: [address] [place] [address] Performed By: #### C VTV, BVAMP #### [facility] CLIA [id number] [address] [place] [address] [place] BACTERIAL VAGINOSIS NAATon 0 5- Lactobacillus crispatus+gasseri+imelda enii + Gardnerella vaginalis + Atopobium vaginae rRNA MEG+probe Ql (Vag fld) Not detected Normal Not detected [facility] Comment on above: Order Comment: Speci men Type: SWABOrdering Facility: [facility] Address: [address] [place] [address] Performed By: #### C VTV, BVAMP ####[facility] LABCLIA [id number] [place] [address] [place] FRANCO/TRICHOMONAS NAATon 0 07-20-2024 C. glabrata RNA MEG+probe Ql (Vag fld) Not detected Normal Not detected [facility] Comment on above: Order Comment: Speci men Type: SWABOrdering Facility: [facility] Address: [address] [place] [address] Performed By: #### C VTV, BVAMP ####[facility] LABCLIA [id number] [address] [place] [facility] Franco sp DNA MEG+probe Ql (Vag fld) Not detected Normal Not detected [facility] Comment on above: Order Comment: Speci men Type: SWABOrdering Facility: [facility] Address: [address] [place] [address] Result Comment: The Franco species group target includes C. albicans, C. tropicalis, C. parapsilosis, and C. dubliniensis. Performed By: #### C VTV, BVAMP ####[facility] LABCLIA [id number] [address] [place] T. vaginalis DNA MEG+probe Ql (Unsp spec) Not detected Normal Not detected [facility] Comment on above: Order Comment: Speci men Type: SWABOrdering Facility: [facility] Address: [address] [place] [address] Performed By: #### C VTV, BVAMP ####[facility] LABCLIA [id number] [place] [address] [place] CBC W Auto Differential pane l (Bld)on 07-20-2024 Basophils (Bld) [#/Vol] 0.07 10*3/uL Normal <0.11 [facility] Comment on above: Order Comment: Speci men Type: BLOOD SPECIMEN [facility] Address: [address] [place] [address] Performed By: #### 5 7021-8 #### [facility] CLIA [id number] [address] [place] [address] [place] Basophils/100 WBC (Bld) 0.5 % Normal [facility] Comment on above: Order Comment: Speci men Type: BLOOD SPECIMEN [facility] Address: [address] [place] [address] Performed By: #### 5 7021-8 #### [facility] CLIA [id number] [address] [place] [address] [place] Differential cell count method Nom (Bld) Auto Normal [facility] Comment on above: Order Comment: Speci men Type: BLOOD SPECIMEN [facility] Address: [address] [place] [address] Performed By: #### 5 7021-8 #### [facility] CLIA [id number] [address] [place] [address] [place] Eosinophils (Bld) [#/Vol] 0.58 10*3/uL High <0.46 [facility] Comment on above: Order Comment: Speci men Type: BLOOD SPECIMEN [facility] Address: [address] [place] [address] Performed By: #### 5 7021-8 #### [facility] CLIA [id number] [address] [place] [address] [place] Eosinophils/100 WBC (Bld) 4.3 % Normal [facility] Comment on above: Order Comment: Speci men Type: BLOOD SPECIMEN [facility] Address: [address] [place] [address] Performed By: #### 5 7021-8 #### [facility] CLIA [id number] [address] [place] [address] [place] Erythrocyte distribution width (RBC) [Ratio] 12.7 % Normal 11.5-15.0 [facility] Comment on above: Order Comment: Speci men Type: BLOOD SPECIMEN [facility] Address: [address] [place] [address] Performed By: #### 5 7021-8 #### [facility] CLIA [id number] [address] [place] [address] [place] Hematocrit (Bld) [Volume fraction] 35.8 % Low 36.0-46.0 [facility] Comment on above: Order Comment: Speci men Type: BLOOD SPECIMEN [facility] Address: [address] [place] [address] Performed By: #### 5 7021-8 #### [facility] [id number] [address] [place] [address] [place] Hemoglobin (Bld) [Mass/Vol] 11.8 g/dL Normal 11.5-15.5 [facility] Comment on above: Order Comment: Speci men Type: BLOOD SPECIMEN [facility] Address: [address] [place] [address] Performed By: #### 5 7021-8 #### [facility] [id number] [address] [place] [address] [place] Immature granulocytes (Bld) [#/Vol] 0.15 10*3/uL High <0.10 [facility] Comment on above: Order Comment: Speci men Type: BLOOD SPECIMEN [facility] Address: [address] [place] [address] Performed By: #### 5 7021-8 #### [facility] [id number] [address] [place] [address] [place] Immature granulocytes/100 WBC (Bld) 1.1 % Normal [facility] Comment on above: Order Comment: Speci men Type: BLOOD SPECIMEN [facility] Address: [address] [place] [address] Performed By: #### 5 7021-8 #### [facility] CLIA [id number] [address] [place] [address] [place] Lymphocytes (Bld) [#/Vol] 2.19 10*3/uL Normal 1.00-4.00 [facility] Comment on above: Order Comment: Speci men Type: BLOOD SPECIMEN [facility] Address: [address] [place] [address] Performed By: #### 5 7021-8 #### [facility] CLIA [id number] [address] [place] [address] [place] Lymphocytes/100 WBC (Bld) 16.1 % Normal [facility] Comment on above: Order Comment: Speci men Type: BLOOD SPECIMEN [facility] Address: [address] [place] [address] Performed By: #### 5 7021-8 #### [facility] CLIA [id number] [address] [place] [address] [place] MCH (RBC) [Entitic mass] 28.7 pg Normal 26.0-34.0 [facility] Comment on above: Order Comment: Speci men Type: BLOOD SPECIMEN Ordering Facility: [facility] Address: [address] [place] [address] Performed By: #### 5 7021-8 #### [facility] CLIA [id number] [address] [place] [address] [place] MCHC (RBC) [Mass/Vol] 33.0 g/dL Normal 30.5-36.0 [facility] Comment on above: Order Comment: Speci men Type: BLOOD SPECIMEN Ordering Facility: [facility] Address: [address] [place] [address] Performed By: #### 5 7021-8 #### [facility] CLIA [id number] [address] [place] [address] [place] MCV (RBC) [Entitic vol] 87.1 fL Normal 80.0-100.0 [facility] Comment on above: Order Comment: Speci men Type: BLOOD SPECIMEN Ordering Facility: [facility] Address: [address] [place] [address] Performed By: #### 5 7021-8 #### [facility] CLIA [id number] [address] [place] [address] [place] Monocytes (Bld) [#/Vol] 0.86 10*3/uL Normal <0.87 [facility] Comment on above: Order Comment: Speci men Type: BLOOD SPECIMEN Ordering Facility: [facility] Address: [address] [place] [address] Performed By: #### 5 7021-8 #### [facility] CLIA [id number] [address] [place] [address] [place] Monocytes/100 WBC (Bld) 6.3 % Normal [facility] Comment on above: Order Comment: Speci men Type: BLOOD SPECIMEN Ordering Facility: [facility] Address: [address] [place] [address] Performed By: #### 5 7021-8 #### [facility] CLIA [id number] [address] [place] [address] [place] Neutrophils (Bld) [#/Vol] 9.79 10*3/uL High 1.45-7.50 [facility] Comment on above: Order Comment: Speci men Type: BLOOD SPECIMEN Ordering Facility: [facility] Address: [address] [place] [address] Performed By: #### 5 7021-8 #### [facility] CLIA [id number] [address] [place] [address] [place] Neutrophils/100 WBC (Bld) 71.7 % Normal [facility] Comment on above: Order Comment: Speci men Type: BLOOD SPECIMEN Ordering Facility: [facility] Address: [address] [place] [address] Performed By: #### 5 7021-8 #### [facility] CLIA [id number] [address] [place] [address] [place] Nucleated RBC (Bld) [#/Vol] 10*3/uL Normal <0.01 [facility] Comment on above: Order Comment: Speci men Type: BLOOD SPECIMEN Ordering Facility: [facility] Address: [address] [place] [address] Performed By: #### 5 7021-8 #### [facility] CLIA [id number] [address] [place] [address] [place] Nucleated RBC/100 WBC (Bld) [Ratio] 0.0 /100 WBC Normal [facility] Comment on above: Order Comment: Speci men Type: BLOOD SPECIMEN Ordering Facility: [facility] Address: [address] [place] [address] Performed By: #### 5 7021-8 #### [facility] CLIA [id number] [address] [place] [address] [place] Platelet mean volume (Bld) [Entitic vol] 9.0 fL Normal 9.0-12.7 [facility] Comment on above: Order Comment: Speci men Type: BLOOD SPECIMEN Ordering Facility: [facility] Address: [address] [place] [address] Performed By: #### 5 7021-8 #### [facility] CLIA [id number] [address] [place] [address] [place] Platelets (Bld) [#/Vol] 269 10*3/uL Normal 150-400 [facility] Comment on above: Order Comment: Speci men Type: BLOOD SPECIMEN Ordering Facility: [facility] Address: [address] [place] [address] Performed By: #### 5 7021-8 #### [facility] CLIA [id number] [address] [place] [address] [place] RBC (Bld) [#/Vol] 4.11 10*6/uL Normal 3.90-5.20 [facility] Comment on above: Order Comment: Speci men Type: BLOOD SPECIMEN Ordering Facility: [facility] Address: [address] [place] [address] Performed By: #### 5 7021-8 #### [facility] CLIA [id number] [address] [place] [address] [place] WBC (Bld) [#/Vol] 13.64 10*3/uL High 3.70-11.00 [facility] Comment on above: Order Comment: Speci men Type: BLOOD SPECIMEN Ordering Facility: [facility] Address: [address] [place] [address] Performed By: #### 5 7021-8 #### [facility] CLIA [id number] [address] [place] [address] [place] GESTATIONAL GLUCOSE SCREEN, 1-HOUR, 50 GRAM, NON-FASTINGon 07-20-2024 Glucose [Mass/Vol] 116 mg/dL Normal 74-134 [facility] Comment on above: Order Comment: Speci men Type: BLOOD SPECIMENOrdering Facility: [facility] Address: [address] [place] [address] Result Comment: [facility] Congress of Obstetricians and Gynecologists (Emir/Shon) guidelines state a gestational diabetes mellitus positive screen is made, in women not previously diagnosed with overt diabetes, when the 1 hr plasma glucose level is equal to or above 140 mg/dL. The [facility] [employer] recommends a 135 mg/dL cutoff. Performed By: #### G LTGST ####[facility] [id number] [place] [address] [place] Reagin and Treponema pallidu m IgG and IgM [Interp]on 07-20-2024 T. pallidum IgG+IgM IA Ql (S) Non-Reactive Normal Nonreactive [facility] Comment on above: Order Comment: Speci antonio Type: BLOOD SPECIMENOrdering Facility: [facility] Address: [address] [place] [address] Performed By: #### 7 3752-8 ####[facility] LABIA [id number] [place] [address] [place] Reagin+T pallidum IgG+IgM Se rPl-Impon 07-20-2024 Reagin and Treponema pallidum IgG and IgM [Interp] Cannot exclude recent Treponemal infection if specimen collected within 7-10 days after appearance of suspect lesions or 2-3 weeks after an exposure. Clinical correlation is required. Normal [facility] Comment on above: Order Comment: Violeta alvarez Type: BLOOD SPECIMENOrdering Facility: [facility] Address: [address] [place] [address] Performed By: #### 7 3752-8 ####[facility] LABIA [id number] [place] [address] [place] CNPSherine 07-19-2024 CNPN Telephone (OBGYWM) AMIRAH WOODARD ([id number]) 3 F Date Time Provider Department 07/19/24 CASTILLO MCKEON During your visit today, we recorded the following information about you: Kia Sheldon RN 07/19/2024 4:23 PM Signed 28w2d Patient called to report that she has not felt the baby move since this morning. Inquired if she did kick counts today. Patient has not. Advised that she would need to go to [facility] for evaluation given the office hours. Instructed patient how to do kick counts if she wanted to see how many movements she has in an hour first. Updated HANDP faxed to [facility]. JIA Bundy Rebecca L, MD 07/19/2024 4:27 PM Signed noted. thanks. Castillo Mckeon MD Allergies As of Date: 07/19/2024 Noted Allergy Reaction SEASONAL ALLERGIES 12/29/2017 14 - Other: See Comments Comments: Puffy itchy eyes and scratchy throat. Date Reviewed: 06/21/2024 Reviewed by: Shree Santos MA - Fully Assessed Reason for Visit: Decreased FM [Other] Prescriptions as of 07/19/2024 - Hoxlgsbf-Rp-Lhp-Fe-FA tab Take 1 tablet by mouth once [...] Status:Closed by VIVIAN ADAMS on 07/19/24 Normal [facility] UA DIP, URINE (POC)on 2024 BILIRUBIN UA (POCT) Negative Negative [facility] CLARITY UA (POCT) Clear [facility] COLOR UA (POCT) Yellow [facility] GLUCOSE UA (POCT) Negative Negative mg/dL [facility] Hemoglobin Ql (U) Negative Negative [facility] Interpretation and review of laboratory results Abnormal [facility] KETONE UA (POCT) Negative Negative mg/dL [facility] LEUKOCYTES UA (POCT) Trace Abnormal Negative [facility] NITRITE UA (POCT) Negative Negative [facility] PH UA (POCT) 7 4.5 - 8.0 [facility] Protein Ql (U) Negative Negative mg/dL [facility] and [facility] SPECIFIC GRAVITY UA (POCT) 1.025 1.005 - 1.030 [facility] UROBILINOGEN UA (POCT) 0.2 Normal E.U./d L [facility] Location:[facility], [address] , [place], [place], [id number] [place] [address] POINT OF CARE [facility] Examination level ultrasound on 05-29-2024 Indication Detailed [...] 14 oz EFW by: Hadlock (HC-AC-FL) Extended Assistant Professor Of Chemistry 5.0 mm CM 4.4 mm 28% Nicolaides [...] normal LVOT view: normal 3-vessel view: normal 4-ndohzc-opmzriz view: normal Heart / Thorax Situs: situs [...] Read By: Kermit Carmen M.D. 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 Date Reviewed: 05/25/2024 Reviewed by: Kai Lucero MD - Fully Assessed Reason for Visit: PRAF [4193] Prescriptions as of 05/28/2024 - Pdbfhsjl-Hk-Yum-Fe-FA tab Take 1 tablet by mouth once [...] Status:Closed by TIO HUTCHISON on 05/28/24 Normal [facility] Examination level ultrasound on 05-25-2024 Radiology [facility]narrative[facility] CNPN Telephone (OBGYWM) AMIRAH WOODARD ([id number]) 3 F Date Time Provider Department 05/01/24 [...] increased LOF tonight I recommend going to [facility]. MD Monalisa Oleary Jennifer, JIA 05/01/2024 3:44 PM Signed Left message for patient to call office. Kia Sheldon RN Allergies As of Date: 05/01/2024 Noted Allergy Reaction SEASONAL ALLERGIES 12/29/2017 14 - Other: See Comments Comments: Puffy itchy eyes and scratchy throat. Date Reviewed: 04/27/2024 Reviewed by: Shree Santos MA - Fully Assessed Reason for Visit: Question (OB Question) [1882] Prescriptions as of 05/01/2024 - Bkbrphfy-Tb-Tbf-Fe-FA tab Take 1 tablet by mouth once [...] Status:Closed by KIA SHELDON on 05/01/24 Normal [facility] Emergency Department Summary on 04-28-2024 Emergency Department Summary [facility] Medical Records Department [address] [place] [address] Emergency Department Summary 04/28/24 MR#: [id number] Acct: [id number] Name: AMIRAH WOODARD Rep #: [id number] : 2005 18 From: Shraddha HAYDEN PCP: Dr. Que Chavez MD Status:DEP ER Location: ED HPI History of Present Illness Chief Complaint: General Illness Narrative Narrative: 18-year-old female is 16 weeks and developed congestion yesterday and this morning the fatigue, chills, body aches, headache and cough. She works in the [employer] and has been around patients with different respiratory viruses. She called her BIOASSAYIST who recommended she come in and be screened for the flu. She also has urinary frequency today but no burning or hematuria. She has no abdominal pain or vaginal bleeding or discharge. PFSH PFS Medical History Left ankle pain Home Medications ???Medication ???Instructions ???Recorded ???Last Taken ???Type Lactobacillus 25 billion cap PO 10/04/23 Unknown History cell-Bifido 25 billion vwrj-DXL-tsekt capsule albuterol sulfate 90 mcg/actuation inhalation 10/04/23 [...] Ox 100 Oxygen Delivery Method Room Air [facility] Narrative Medical decision making narrative: Differential: Viral [...] and recommended Tylenol and follow-up with her BIOASSAYIST. She was discharged in stable condition. Lab Data Attestation: I reviewed the patient's lab results. Labs: Laboratory Results - last 24 hr 04/28/24 20:42 Urine Color Yellow Urine Clarity Clear Urine pH 6.0 Ur Specific [place] 1.015 Urine Protein 15 H Urine Glucose (UA) Normal Urine Ketones Negative Urine Occult Blood Negative Urine Nitrite Negative Urine Bilirubin Negative Urine Urobilinogen Normal Ur Leukocyte Esterase Negative Urine RBC 0 SEEN Urine WBC 0 SEEN Ur Squamous Epith Cells 0 SEEN Urine Bacteria 0 SEEN Urine Mucus 0 SEEN [facility] Lab Data Labs: Laborator (more content not included)... Normal [facility] M100.678on 04-28-2024 M100.678 SARS-CoV-2 (COVID 19 ) Negative INFLUENZA A Negative INFLUENZA B Negative RSV PCR Negative Normal [facility] Comment on above: Performed By: #### M 100.678 #### [facility] [address] [place], [address] Urinalysis, Completeon 04-28 RBC 0 SEEN Normal 0-5 [facility] Comment on above: Order Comment: CLEAN CATCH Performed By: #### L 400.0001 #### [facility] [address] [place], [address] BACTERIA 0 SEEN Normal None Seen [facility] Comment on above: Order Comment: CLEAN CATCH Performed By: #### L 400.0001 #### [facility] [address] [place], [address] EPI,SQUAMOUS 0 SEEN Normal 5-10 [facility] Comment on above: Order Comment: CLEAN CATCH Performed By: #### L 400.0001 #### [facility] [address] [place], [address] Mucus Ql (Urine sed) 0 SEEN Normal [facility] Comment on above: Order Comment: CLEAN CATCH Performed By: #### L 400.0001 #### [facility] [address] [place], [address] WBC 0 SEEN Normal 0-5 [facility] Comment on above: Order Comment: CLEAN CATCH Performed By: #### L 400.0001 #### [facility] [address] [place], [address] CNPNon 04-13-2024 JOSELYNN Telephone (OBJERRODWM) AMIRAH WOODARD ([id number]) 3 F Date Time Provider Department 04/13/24 [...] by LA DEL CASTILLO on 04/13/24 Normal [facility] nuchal translucency me asured by Quentin 04-03-2024 Indication First trimester anatomic survey Maternal obesity, BMI >30 Impression REMOTE READ The patient is referred for a first trimester anatomy scan including nuchal translucency measurement as clinically indicated. - Single, live, intrauterine . - [place] rump length measurement is consistent with the [...] view: normal 4-chamber view with color: normal 6-pdwpdv-gitjmda view: normal Abdominal cord insertion: normal Stomach: [...] Read By: Marietta Burr M.D. MATERNAL MEDICINE [facility] Radiology Study observation (narrative) [facility] BACTERIAL VAGINOSIS NAATon 0 03-28-2024 Lactobacillus crispatus+gasseri+imelda enii + Gardnerella vaginalis + Atopobium vaginae rRNA MEG+probe Ql (Vag fld) Not detected Normal Not detected [facility] Comment on above: Order Comment: Speci men Type: SWABOrdering Facility: [facility] Address: [address] [place] [address] Performed By: #### C VTV, BVAMP ####[facility] LABCLIA [id number] [place] [address] [place] FRANCO/TRICHOMONAS NAATon 0 03-28-2024 C. glabrata RNA MEG+probe Ql (Vag fld) Not detected Normal Not detected [facility] Comment on above: Order Comment: Speci men Type: SWABOrdering Facility: [facility] Address: [address] [place] [address] Performed By: #### C VTV, BVAMP ####[facility] LABCLIA [id number] [address] [place] Franco sp DNA MEG+probe Ql (Vag fld) Detected Abnormal Not detected [facility] Comment on above: Order Comment: Speci men Type: SWABOrdering Facility: [facility] Address: [address] [place] [address] Result Comment: The Franco species group target includes C. albicans, C. tropicalis, C. parapsilosis, and C. dubliniensis. Performed By: #### C VTV, BVAMP ####[facility] LABCLIA [id number] [address] [place] T. vaginalis DNA MEG+probe Ql (Unsp spec) Not detected Normal Not detected [facility] Comment on above: Order Comment: Speci men Type: SWABOrdering Facility: [facility] Address: [address] [place] [address] Performed By: #### C VTV, BVAMP ####[facility] LABCLIA [id number] [address] [place] CNPSherine 03-22-2024 JOSELYNN Telephone (OBGYWM) AMIRAH WOODARD ([id number]) 3 F Date Time Provider Department 03/22/24 [...] Date Reviewed: 03/19/2024 Reviewed by: Josiane Goodwin APRN.PCB DESIGNER - Fully Assessed Reason for Visit: Medication Question [3408] Prescriptions as of 03/22/2024 - amoxicillin (AMOXIL) [...] by LA DEL CASTILLO on 03/22/24 Normal [facility] CNOVon 03-19-2024 CNOV Office Visit (PEDSWS ) AMIRAH WOODARD ([id number]) 3 F Date Time Provider Department 03/19/24 1:45 PM JOSIANE GOODWIN PEDSWS During your visit today, we recorded the following information about you: Temperature Pulse Respiration Weight 98.2 degrees 84/minute 16/minute 87.6 kg Josiane Goodwin, FLAKER TENDER.PCB DESIGNER 03/20/2024 9:03 PM Signed PEDIATRIC SICK VISIT [...] Date Reviewed: 03/19/2024 Reviewed by: Josiane Goodwin APRN.PCB DESIGNER - Fully Assessed Reason for Visit: Cough [...] 03/19/2024 Rou (more content not included)... Normal [facility] CNOVon 03-13-2024 CN Office Visit (WSTR ) VANCEAMIRAH Darrin ([id number]) 3 F Date Time Provider Department 03/13/24 1:00 PM ROBERTO POWERS [facility] During your visit today, we recorded the following information about you: Temperature Pulse Respiration Blood pressure 97.6 degrees 87/minute 18/minute 110/72 Weight 87.1 kg Roberto Powers PA-C 03/13/2024 12:33 PM Signed This note was created using [employer] The[employer]. Subjective Amirah Clifford Vance is a 18 [...] the patient was advised to see her BIOASSAYIST for further evaluation and management. CLINICAL IMPRESSION: [...] Diagnosis:Sore throat [J02.9] Order(s):STREP A MOLECULAR (POC) [9100363] Order #: [id number]. #:[id number] Prescriptions as of 03/13/2024 - aspirin, enteric [...] teen in f*02/21/2024 Level of Service: OFFICE/OUTPATIENT [facility] 30 MINUTES [43231] Encounter Status:Closed by PRIYA, ROBERTO on 03/13/24 Normal [facility] [id number] PLUSon 03-13-2024 Cell-free DNA./Cell-free DNA.total Dosage of chromosome-specific cfDNA (cfDNA) [Molar fraction] 18% Normal [facility] Comment on above: Order Comment: Speci men Type: BLOOD SPECIMENOrdering Facility: [facility] Address: [facility] [place] [address] Performed By: #### M AT21 ####[facility] LABCLIA [id number] [place] [address] Chr 13+18+21+X+Y aneuploidy Dosage of chromosome-specific cfDNA Ql (cfDNA) Negative Normal [facility] Comment on above: Order Comment: Speci men Type: BLOOD SPECIMENOrdering Facility: [facility] Address: [address] [place] [address] Performed By: #### M AT21 ####[facility] LABCLIA [id number] [place] [address] Chr 21 trisomy Dosage of chromosome-specific cfDNA Ql (cfDNA) Negative Normal [facility] Comment on above: Order Comment: Speci men Type: BLOOD SPECIMENOrdering Facility: [facility] Address: [address] [place] [address] Performed By: #### M AT21 ####[facility] LABCLIA [id number] [place] [address] Chr X and Y aneuploidy risk Sequencing Ql (cfDNA) [Interp] Not detected Normal [facility] Comment on above: Order Comment: Speci men Type: BLOOD SPECIMENOrdering Facility: [facility] Address: [address] [place] [address] Result Comment: Not Detected Not Detected Performed By: #### M AT21 ####[facility] LABCLIA [id number] [place] [address] Citation Jn (Reference lab test) Comment Normal [facility] Comment on above: Order Comment: Speci men Type: BLOOD SPECIMENOrdering Facility: [facility] Address: [address] [place] [address] Result Comment: 1. P иван DILL, et al. Audra Med. 2012;14(3):296-305. 2. Jamel HARRELL et al. Prenat Diag. 2013;33(6):591-597. 3. Edvin C, et al. Clin Chem. 2015 Jun;61(4):608-616. 4. Jacey DILL, et al. Audra Med. 2011;13(11):913-920. 5. ACOG/SMFM Practice Bulletin No. 226, Dec 2019. Performed By: #### M AT21 ####[facility] LABCLIA [id number] [place] [address] Gestational age Estimated from conception date Spencer Normal [facility] Comment on above: Order Comment: Speci men Type: BLOOD SPECIMENOrdering Facility: [facility] Address: [address] [place] [address] Performed By: #### M AT21 ####[employer] [facility] LABCLIA [id number] [place] [address] GESTATIONALAGE AGE > OR = 9W Yes Normal [facility] Comment on above: Order Comment: Speci men Type: BLOOD SPECIMENOrdering Facility: [facility] Address: [address] [place] [address] Performed By: #### M AT21 ####[facility] LABCLIA [id number] [place] [address] Laboratory comment Jn (Report) Comment Normal [facility] Comment on above: Order Comment: Speci men Type: BLOOD SPECIMENOrdering Facility: [facility] Address: [address] [place] [address] Result Comment: The MaterniT(R) 21 PLUS laboratory-developed test (LDT) analyzes circulating cell-free DNA from a maternal blood sample. This test is used for screening purposes and not diagnostic. Clinical correlation is recommended. Validation data on twin pregnancies is limited and the ability of this test to detect aneuploidy in higher multiple gestations has not yet been validated. Performed By: #### M AT21 ####[facility] LABCLIA [id number] [place] [address] collections and archives director name Nom (Provider) Comment Normal [facility] Comment on above: Order Comment: Speci men Type: BLOOD SPECIMENOrdering Facility: [facility] Address: [address] [place] [address] Result Comment: This specimen showed an expected representation of chromosome 21, 18 and 13 material. Clinical correlation is suggested. Comment Jean Claude Guzmán MD, PhD, Director, [employer] Performed By: #### M AT21 ####[facility] LABCLIA [id number] [place] [address] LIMITATIONS OF THE TEST Comment Normal [facility] Comment on above: Order Comment: Speci men Type: BLOOD SPECIMENOrdering Facility: [facility] Address: [address], [place] [address] Result Comment: Steve shin the results of [...] Performed By: #### M AT21 ####[facility] LABCLIA [id number] [place] [id number] Monosomy X risk Dosage of chromosome-specific cfDNA Ql (Plasma cell-free+WBC DNA) [Interp] Not detected Normal [facility] Comment on above: Order Comment: Speci men Type: BLOOD SPECIMENOrdering Facility: [facility] Address: [address] [place] [address] Performed By: #### M AT21 ####[facility] LABCLIA [id number] [place] [id number] NEGATIVE PREDICTIVE VALUE Note Normal [facility] Comment on above: Order Comment: Speci men Type: BLOOD SPECIMENOrdering Facility: [facility] Address: [address] [place] [address] Result Comment: The Negative Predictive Value (NPV) for trisomy 21, 18, and 13 is greater than 99%. The NPV for SCA and ESS cannot be calculated as SCA and ESS are only reported when an abnormality is detected. Performed By: #### M AT21 ####[facility] LABCLIA [id number] [place] [address] NOTE Comment Normal [facility] Comment on above: Order Comment: Speci men Type: BLOOD SPECIMENOrdering Facility: [facility] Address: [address] [place] [address] Result Comment: See Notes [employer]. is a subsidiary of [employer], using the brand [employer]. This test was developed and its performance characteristics determined by [employer]. It has not been cleared or approved by the Food and Drug Administration. This laboratory is certified under the Clinical Laboratory Improvement Amendments (CLIA) as qualified to perform high complexity clinical laboratory testing and accredited by the [employer] (CAP). If there is future clinical need for adding MaterniT GENOME testing, this specimen will be available until term. [facility] samples will not be retained beyond 60 days. [facility] patients will have to send a new sample for re-sequencing ([facility] Test Code: [id number]). Performed By: #### M AT21 ####[facility] LABCLIA [id number] [place] [address] PERFORMANCE CHARACTERISTICS Note Normal [facility] Comment on above: Order Comment: Violeta alvarez Type: BLOOD SPECIMENOrdering Facility: [facility] Address: [address], [place] [address] Result Comment: ! Sex ! Accuracy: 99.4% [...] gestation only. Performed By: #### M AT21 ####[employer] LABFashion & YouIA [id number] [place] [address] POSITIVE PREDICTIVE VALUE N/A Normal [facility] Comment on above: Order Comment: Speci antonio Type: BLOOD SPECIMENOrdering Facility: [facility] Address: [address] [place] [address] Performed By: #### M AT21 ####[employer] LABCLIA [id number] [place] [address] Reference Lab Test Method Comment Normal [facility] Comment on above: Order Comment: Violeta alvarez Type: BLOOD SPECIMENOrdering Facility: [facility] Address: [address] [place] [address] Result Comment: See Notes Circulating cell-free DNA [...] and 22. Performed By: #### M AT21 ####[facility] LABCLIA [id number] [place] [address] Sex Dosage of chromosome-specific cfDNA Nom (cfDNA) Comment Normal [facility] Comment on above: Order Comment: Speci men Type: BLOOD SPECIMENOrdering Facility: [facility] Address: [address] [place] [address] Result Comment: Cons istent with Male Performed By: #### M AT21 ####[facility] LABCLIA [id number] [place] [address] Test performance information Jn (Unsp spec) Comment Normal [facility] Comment on above: Order Comment: Speci men Type: BLOOD SPECIMENOrdering Facility: [facility] Address: [address] [place] [address] Result Comment: The performance characteristics of the MaterniT(R) 21 PLUS laboratory-developed test (LDT) have been determined in a clinical validation study with women at increased risk for chromosomal aneuploidy.[1-4] Performed By: #### M AT21 ####[facility] LABCLIA [id number] [place] [address] Trisomy 13 risk Dosage of chromosome-specific cfDNA Ql (cfDNA) [Interp] Negative Normal [facility] Comment on above: Order Comment: Speci men Type: BLOOD SPECIMENOrdering Facility: [facility] Address: [address] [place] [address] Performed By: #### M AT21 ####[facility] LABCLIA [id number] [place] [address] Trisomy 18 risk Dosage of chromosome-specific cfDNA Ql (Plasma cell-free+WBC DNA) [Interp] Negative Normal [facility] Comment on above: Order Comment: Speci men Type: BLOOD SPECIMENOrdering Facility: [facility] Address: [address] [place] [address] Performed By: #### M AT21 ####[facility] LABCLIA [id number] [place] [address] STREP A MOLECULAR (POC)on Procedural Control Valid [facility] Strep A (POCT) Negative Negative [facility] CBC W Auto Differential pane l (Bld)on 02-24-2024 Basophils (Bld) [#/Vol] 0.07 10*3/uL Normal <0.11 [facility] Comment on above: Order Comment: Speci men Type: BLOOD SPECIMENOrdering Facility: [facility] Address: [address] [place] [address] Performed By: #### 5 7021-8 ####[facility]ENTERLIA [id number] [place] [address] [place] Basophils/100 WBC (Bld) 0.7 % Normal [facility] Comment on above: Order Comment: Speci men Type: BLOOD SPECIMENOrdering Facility: [facility] Address: [address] [place] [address] Performed By: #### 5 7021-8 ####[facility]ENTERLIA [id number] [place] [address] [place] Differential cell count method Nom (Bld) Auto Normal [facility] Comment on above: Order Comment: Speci men Type: BLOOD SPECIMENOrdering Facility: [facility] Address: [address] [place] [address] Performed By: #### 5 7021-8 ####[facility] MILLWNCLIA [id number] [place] [address] [place] Eosinophils (Bld) [#/Vol] 0.24 10*3/uL Normal <0.46 [facility] Comment on above: Order Comment: Speci men Type: BLOOD SPECIMENOrdering Facility: [facility] Address: [address] [place] [address] Performed By: #### 5 7021-8 ####[facility] MILLWNCLIA [id number] [place] [address] [place] Eosinophils/100 WBC (Bld) 2.4 % Normal [facility] Comment on above: Order Comment: Speci men Type: BLOOD SPECIMENOrdering Facility: [facility] Address: [address] [place] [address] Performed By: #### 5 7021-8 ####[facility]IA [id number] [place] [address] [place] Erythrocyte distribution width (RBC) [Ratio] 14.0 % Normal 11.5-15.0 [facility] Comment on above: Order Comment: Speci men Type: BLOOD SPECIMENOrdering Facility: [facility] Address: [address] [place] [address] Performed By: #### 5 7021-8 ####[facility] [id number] [place] [address] [place] Hematocrit (Bld) [Volume fraction] 41.8 % Normal 36.0-46.0 [facility] Comment on above: Order Comment: Speci men Type: BLOOD SPECIMENOrdering Facility: [facility] Address: [address] [place] [address] Performed By: #### 5 7021-8 ####[facility]ENTERNCLAMITA [id number] [place] [address] [place] Hemoglobin (Bld) [Mass/Vol] 13.9 g/dL Normal 11.5-15.5 [facility] Comment on above: Order Comment: Speci men Type: BLOOD SPECIMENOrdering Facility: [facility] Address: [address] [place] [address] Performed By: #### 5 7021-8 ####[facility]ENTERNCLIA [id number] [place] [address] [place] Immature granulocytes (Bld) [#/Vol] 0.03 10*3/uL Normal <0.10 [facility] Comment on above: Order Comment: Speci men Type: BLOOD SPECIMENOrdering Facility: [facility] Address: [address] [place] [address] Performed By: #### 5 7021-8 ####[facility] MICAHBrunaNCMILVIA [id number] [place] [address] [place] Immature granulocytes/100 WBC (Bld) 0.3 % Normal [facility] Comment on above: Order Comment: Speci men Type: BLOOD SPECIMENOrdering Facility: [facility] Address: [address] [place] [address] Performed By: #### 5 7021-8 ####[facility] CENTERANNAMCKAY[facility] [id number] [place] [address] [place] Lymphocytes (Bld) [#/Vol] 2.44 10*3/uL Normal 1.00-4.00 [facility] Comment on above: Order Comment: Speci men Type: BLOOD SPECIMENOrdering Facility: [facility] Address: [address] [place] [address] Performed By: #### 5 7021-8 ####[facility] [id number] [place] [address] [place] Lymphocytes/100 WBC (Bld) 24.0 % Normal [facility] Comment on above: Order Comment: Speci men Type: BLOOD SPECIMENOrdering Facility: [facility] Address: [address] [place] [address] Performed By: #### 5 7021-8 ####[facility]ITALA [id number] [place] [address] [place] MCH (RBC) [Entitic mass] 28.2 pg Normal 26.0-34.0 [facility] Comment on above: Order Comment: Speci men Type: BLOOD SPECIMENOrdering Facility: [facility] Address: [address] [place] [address] Performed By: #### 5 7021-8 ####[facility]ITALBrunaNCLIA [id number] [place] [address] [place] MCHC (RBC) [Mass/Vol] 33.3 g/dL Normal 30.5-36.0 [facility] Comment on above: Order Comment: Speci men Type: BLOOD SPECIMENOrdering Facility: [facility] Address: [address] [place] [address] Performed By: #### 5 7021-8 ####[facility]ENTERNCA [id number] [place] [address] [place] MCV (RBC) [Entitic vol] 84.8 fL Normal 80.0-100.0 [facility] Comment on above: Order Comment: Speci men Type: BLOOD SPECIMENOrdering Facility: [facility] Address: [address] [place] [address] Performed By: #### 5 7021-8 ####[facility] [id number] [place] [address] [place] Monocytes (Bld) [#/Vol] 0.59 10*3/uL Normal <0.87 [facility] Comment on above: Order Comment: Speci men Type: BLOOD SPECIMENOrdering Facility: [facility] Address: [address] [place] [address] Performed By: #### 5 7021-8 ####[facility] CENTERLIA [id number] [address] [place] Monocytes/100 WBC (Bld) 5.8 % Normal [facility] Comment on above: Order Comment: Speci men Type: BLOOD SPECIMENOrdering Facility: [facility] Address: [address] [place] [address] Performed By: #### 5 7021-8 ####[facility]ENTERNCMCK[facility] [id number] [place] [address] [place] Neutrophils (Bld) [#/Vol] 6.81 10*3/uL Normal 1.45-7.50 [facility] Comment on above: Order Comment: Speci men Type: BLOOD SPECIMENOrdering Facility: [facility] Address: [address] [place] [address] Performed By: #### 5 7021-8 ####[facility] CENTERLIA [id number] [place] [address] [place] Neutrophils/100 WBC (Bld) 66.8 % Normal [facility] Comment on above: Order Comment: Speci men Type: BLOOD SPECIMENOrdering Facility: [facility] Address: [address] [place] [address] Performed By: #### 5 7021-8 ####[facility]ENTERNCMCKAY[facility] [id number] [place] [address] [place] Nucleated RBC (Bld) [#/Vol] 10*3/uL Normal <0.01 [facility] Comment on above: Order Comment: Speci men Type: BLOOD SPECIMENOrdering Facility: [facility] Address: [address] [place] [address] Performed By: #### 5 7021-8 ####[facility]ENTERNCLIA [id number] [place] [address] [place] Nucleated RBC/100 WBC (Bld) [Ratio] 0.0 /100 WBC Normal [facility] Comment on above: Order Comment: Speci men Type: BLOOD SPECIMENOrdering Facility: [facility] Address: [address] [place] [address] Performed By: #### 5 7021-8 ####[facility] CENTERNCLI [id number] [place] [address] [place] Platelet mean volume (Bld) [Entitic vol] 8.5 fL Low 9.0-12.7 [facility] Comment on above: Order Comment: Speci men Type: BLOOD SPECIMENOrdering Facility: [facility] Address: [address] [place] [address] Performed By: #### 5 7021-8 ####[facility] LEAHWNCLIA [id number] [place] [address] [place] Platelets (Bld) [#/Vol] 304 10*3/uL Normal 150-400 [facility] Comment on above: Order Comment: Speci men Type: BLOOD SPECIMENOrdering Facility: [facility] Address: [address] [place] [address] Performed By: #### 5 7021-8 ####[facility]ENTERNCLIA [id number] [place] [address] [place] RBC (Bld) [#/Vol] 4.93 10*6/uL Normal 3.90-5.20 [facility] Comment on above: Order Comment: Speci men Type: BLOOD SPECIMENOrdering Facility: [facility] Address: [address] [place] [address] Performed By: #### 5 7021-8 ####[facility]ENTERNCLIA [id number] [place] [address] [place] WBC (Bld) [#/Vol] 10.18 10*3/uL Normal 3.70-11.00 [facility] Comment on above: Order Comment: Speci men Type: BLOOD SPECIMENOrdering Facility: [facility] Address: [address] [place] [address] Performed By: #### 5 7021-8 ####[facility]ENTERNCLIA [id number] [place] [address] [place] HBV surface Ag Ser Qlon 12-2 HBV surface Ag Ql (S) Negative Normal Negative [facility] Comment on above: Order Comment: Speci men Type: BLOOD SPECIMENOrdering Facility: [facility] Address: [address] [place] [address] Performed By: #### 5 195-3, 75015-0, 03614-9 ####[facility] LABCLIA [id number] [place] [address] [place] HCV Ab Ser Qlon 02-24-2024 HCV Ab Ql (S) Negative Normal Negative [facility] Comment on above: Order Comment: Speci men Type: BLOOD SPECIMENOrdering Facility: [facility] Address: [address] [place] [address] Result Comment: The result suggests no evidence of active infection with Hepatitis C virus. Should recent infection be suspected, repeat testing may be considered 4-6 weeks after this draw. Performed By: #### 1 6128-1 ####[facility] LABCLIA [id number] [place] [address] [place] HIV 1+2 Ab IA Qlon HIV 1 and 2 Ab IA.rapid Nom (S/P/Bld) Normal [facility] Comment on above: Order Comment: Speci men Type: BLOOD SPECIMENOrdering Facility: [facility] Address: [address] [place] [address] Result Comment: Test not indicated. Performed By: #### 5 195-3, 05497-8, 45275-0 ####[facility] LABCLIA [id number] [place] [address] [place] HIV 1+2 Ab+HIV1 p24 Ag IA Ql Non-Reactive Normal Nonreactive [facility] Comment on above: Order Comment: Speci men Type: BLOOD SPECIMENOrdering Facility: [facility] Address: [address] [place] [address] Performed By: #### 5 195-3, 26700-9, 34579-9 ####[facility] LABCLIA [id number] [place] [address] [place] HIV immunoassay testing algorithm interpretation (S/P/Bld) [Interp] Normal [facility] Comment on above: Order Comment: Speci men Type: BLOOD SPECIMENOrdering Facility: [facility] Address: [address] [place] [address] Result Comment: No e vidence of HIV-1 or HIV-2 infection. Should recent infection be suspected, repeat testing may be considered 2-3 weeks after this draw. [place] Rev. Code 3701.243(E): This information has been [...] or diagnoses. Performed By: #### 5 195-3, 40922-5, 88690-0 ####[facility] LABCLIA [id number] [place] [address] [place] HbA1c (Bld)on 02-24-2024 Average glucose Estimated from glycated hemoglobin (Bld) [Mass/Vol] 94 mg/dL Normal [facility] Comment on above: Order Comment: Speci men Type: SWAB [facility] Address: [address] [place] [address] Result Comment: eAG: (Estimated average glucose) is a calculated value from HgbA1c and is desk representative of the average blood glucose level in the last 2-3 month period. Performed By: #### C VTV, BVAMP #### [facility] CLIA [id number] [address] [place] [address] [place] HbA1c (Bld) [Mass fraction] 4.9 % Normal 4.3-5.6 [facility] Comment on above: Order Comment: Speci men Type: SWAB [facility] Address: [address] [place] [address] Result Comment: [place] Diabetes Association guidelines indicate that patients with HgbA1c in the range 5.7-6.4% are at increased risk for development of diabetes, and intervention by lifestyle modification may be beneficial. HgbA1c greater or equal to 6.5% is considered diagnostic of diabetes. Performed By: #### C VTV, BVAMP #### [facility] CLIA [id number] [address] [place] [address] [place] RUBELLA IGG ANTIBODYon 02-23 RUBELLA IGG AB, QUAL Positive Normal Positive [facility] Comment on above: Order Comment: Speci men Type: BLOOD SPECIMENOrdering Facility: [facility] Address: [address] [place] [address] Result Comment: The result suggests recent or past exposure to Rubella virus or history of Rubella vaccination. Positive result may also be seen due to presence of passively-transferred antibodies. Please correlate with patient's history. Performed By: #### R UBIGG ####[facility] LABCLIA [id number] [place] [address] [place] Reagin and Treponema pallidu m IgG and IgM [Interp]on 02-24-2024 T. pallidum IgG+IgM IA Ql (S) Non-Reactive Normal Nonreactive [facility] Comment on above: Order Comment: Speci [facility] Type: BLOOD SPECIMENOrdering Facility: [facility] Address: [address] [place] [address] Performed By: #### 5 195-3, 61199-3, 25473-7 ####[facility] LABCLIA [id number] [place] [address] [place] Reagin+T pallidum IgG+IgM Se rPl-Impon 02-24-2024 Reagin and Treponema pallidum IgG and IgM [Interp] Cannot exclude recent Treponemal infection if specimen collected within 7-10 days after appearance of suspect lesions or 2-3 weeks after an exposure. Clinical correlation is required. Normal [facility] Comment on above: Order Comment: Speci men Type: BLOOD SPECIMENOrdering Facility: [facility] Address: [address] [place] [address] Performed By: #### 5 195-3, 96268-1, 83980-4 ####[facility] LABCLIA [id number] [place] [address] [place] TYPE + SCREEN PRENATALon ABO O Normal [facility] Comment on above: Order Comment: Speci men Type: SWAB [facility] Address: [address] [place] [address] Performed By: #### C VTV, BVAMP #### [facility] CLIA [id number] [address] [place] [address] [place] Rh Nom (Bld) Positive Normal [facility] Comment on above: Order Comment: Speci men Type: SWAB [facility] Address: [address] [place] [address] Performed By: #### C VTV, BVAMP #### [facility] CLIA [id number] [address] [place] [address] [place] TYPE AND SCREEN EXPIRATION 02/27/2024 23:59 Normal [facility] Comment on above: Order Comment: Speci men Type: SWAB [facility] Address: [address] [place] [address] Performed By: #### C VTV, BVAMP #### [facility] CLIA [id number] [address] [place] [address] [place] Urgent Care Visit Reporton 1 04-26-2023 Urgent Care Visit Report [facility] [address], [address] [place] [address] OFFICE VISIT Date of Service: 02/24/24 MR#: [id number] Acct: [id number] Name: AMIRAH WOODARD Rep #: [id number] 40 : 2005 Provider: CATRACHO Jacobo Age/Sex: 18/F Location: [facility] Status: Signed Intake Vital Signs 11/14/23 09:57 Height 5 ft 3 in Intake Visit Reasons: [facility] Chief Complaint: Preemployment physical Accompanied by: Self Allergies No Known Allergies Allergy (Verified 02/24/24 12:06) Medications ???Medication ???Instructions ???Recorded ???Confirmed ???Type Lactobacillus 25 billion cap PO 10/04/23 11/15/23 History cell-Bifido 25 billion rwtn-KTB-qdcri capsule albuterol sulfate 90 mcg/actuation inhalation 10/04/23 [...] Chico Gomez Signature: Date (if applicable) CC: [facility] Rodrick 02-23-2024 MATTI Telephone (Wireless [employer]) AMIRAH WOODARD ([id number]) 3 F Date Time Provider Department 02/23/24 [...] Date Reviewed: 02/21/2024 Reviewed by: Nilda Stiles APRN.PCB DESIGNER - Fully Assessed Reason for Visit: PRAF [...] Status:Closed by PAULINE AU on 02/23/24 Normal [facility] BACTERIAL VAGINOSIS NAATon 1 2- Lactobacillus crispatus+gasseri+imelda enii + Gardnerella vaginalis + Atopobium vaginae rRNA MEG+probe Ql (Vag fld) Not detected Normal Not detected [facility] Comment on above: Order Comment: Speci men Type: SWABOrdering Facility: [facility] Address: [address] [place] [address] Performed By: #### Cherelle VAMP, 95065-7 ####[facility] LABCLIA [id number] [place] [address] [place] Bacteria Ur Culton [...] technique or straight catheterization for???urine???collecti on. Normal [facility] Comment on above: Performed By: #### 6 30-4 ####[facility] LABCLIA [id number] [place] [address] [place] C. trachomatis+N. gonorrhoea e DNA MEG+probe Ql (Unsp spec)on 02-21-2024 C. trachomatis rRNA MEG+probe Ql (Unsp spec) Not detected Normal Not detected [facility] Comment on above: Order Comment: Speci men Type: SWABOrdering Facility: [facility] Address: [address] [place] [address] Performed By: #### Cherelle VAMP, 80886-2 ####[facility] LABCLIA [id number] [place] [address] [place] N. gonorrhoeae rRNA MEG+probe Ql (Unsp spec) Not detected Normal Not detected [facility] Comment on above: Order Comment: Speci men Type: SWABOrdering Facility: [facility] Address: [address] [place] [address] Performed By: #### Cherelle VAMP, 76983-9 ####[facility] LABCLIA [id number] [place] [address] [place] FRANCO/TRICHOMONAS NAATon 1 2-17-2024 C. glabrata RNA MEG+probe Ql (Vag fld) Not detected Normal Not detected [facility] Comment on above: Order Comment: Speci men Type: SWAB [facility] Address: [address] [place] [address] Performed By: #### C VTV, BVAMP #### [facility] CLIA [id number] [address] [place] [address] [place] Franco sp DNA MEG+probe Ql (Vag fld) Not detected Normal Not detected [facility] Comment on above: Order Comment: Speci men Type: SWAB Ordering Facility: [facility] Address: [address] [place] [address] Result Comment: The Franco species group target includes C. albicans, C. tropicalis, C. parapsilosis, and C. dubliniensis. Performed By: #### C VTV, BVAMP #### [facility] CLIA [id number] [address] [place] [address] [place] T. vaginalis DNA MEG+probe Ql (Unsp spec) Not detected Normal Not detected [facility] Comment on above: Order Comment: Speci men Type: SWAB Ordering Facility: [facility] Address: [address] [place] [address] Performed By: #### C VTV, BVAMP #### [facility] CLIA [id number] [address] [place] [address] [place] CNCOon 02-21-2024 CNCO Letter Text Normal [facility] POC CAMP ATTENDANT ULTRASOUNDon 02-21-20 24 Indication Confirmation of intrauterine [...] Read By: Nilda Stiles CNP MATERNAL MEDICINE [facility] Radiology Study observation (narrative) [facility] CNCOon 02-01-2024 CNCO Letter Text Normal [facility] CNOVon 01-30-2024 CNOV Office Visit (OBGYWM ) AMIRAH WOODARD ([id number]) 3 F Date Time Provider Department 01/30/24 [...] L0 SAB0 IAB0 Ectopic0 Multiple0 Live Births0 Roll Cleaner History LMP: 12/09/2023 (Exact Date), Having periods Age at Menarche: Age at First : Age at Menopause: Roll Cleaner History Comments: Sexual Activity: Yes; Male Contraception: [...] (FLONASE) 50 mcg/actuation nasal spray Use 1 Chamberlain in each nostril once daily. loratadine (CLARITIN) [...] result positive [Z32.01] Order(s):UA DIP,URINE HCG (POC) [[id number]] Order #: [id number]. #:[id number] Prescriptions as of 01/30/2024 - vit no.124/iron/folic [...] (FLONASE) 50 mcg/actuation nasal spray Use 1 Chamberlain in each nostril once daily. - loratadine [...] NOB. Follow (more content not included)... Normal [facility] UA DIP,URINE HCG (POC)on Beta HCG ( test) Ql (U) Positive Abnormal Negative [facility] Comment on above: Location:[facility], [address], [place], [address] Interpretation and review of laboratory results Abnormal [facility] Director Payer (POCT) Internal QC OK [facility] Location:[facility], [address], [place], [address] [facility] C[facility]N Telephone (OBGYWM) AMIRAH WOODARD ([id number]) 3 F Date Time Provider Department 12/15/23 [...] NILDA STILES Pharmacy Information Pharmacy Address Telephone [facility] [address] [place] [address] Allergies As of Date: 12/15/2023 [...] (FLONASE) 50 mcg/actuation nasal spray Use 1 Chamberlain in each nostril once daily. - loratadine [...] Status:Closed by VIVIAN ADAMS on 12/15/23 Normal [facility] BACTERIAL VAGINOSIS NAATon 1 Lactobacillus crispatus+gasseri+imelda enii + Gardnerella vaginalis + Atopobium vaginae rRNA MEG+probe Ql (Vag fld) Negative Normal Negative for bacterial vaginosis [facility] Comment on above: Order Comment: Speci men Type: SWAB Ordering Facility: [facility] Address: [address] [place] [address] Performed By: #### C VTV, BVAMP #### [facility] CLIA [id number] [address] [place] [address] [place] FRANCO/TRICHOMONAS NAATon 1 C. glabrata RNA MEG+probe Ql (Vag fld) Negative Normal Negative for Franco glabrata [facility] Comment on above: Order Comment: Speci men Type: SWAB Ordering Facility: [facility] Address: [address] [place] [address] Performed By: #### C VTV, BVAMP #### [facility] CLIA [id number] [address] [place] [address] [place] Franco sp DNA MEG+probe Ql (Vag fld) Negative Normal Negative for Franco species [facility] Comment on above: Order Comment: Speci men Type: SWAB Ordering Facility: [facility] Address: [address] [place] [address] Performed By: #### C VTV, BVAMP #### [facility] CLIA [id number] [address] [place] [address] [place] T. vaginalis DNA MEG+probe Ql (Unsp spec) Negative Normal Negative for Trichomonas vaginalis by amplification [facility] Comment on above: Order Comment: Speci men Type: SWAB Ordering Facility: [facility] Address: [address] [place] [address] Performed By: #### C VTV, BVAMP #### [facility] CLIA [id number] [address] [place] [address] [place] CNOVon 12-12-2023 CNOV Office Visit (OBGYWM ) AMIRAH WOODARD ([id number]) 3 F Date Time Provider Department 12/12/23 3:45 PM NILDA STILES OBGYWM During your visit today, we recorded the following information about you: Blood pressure Weight Last Period 122/66 84.8 kg 12/09/23 Nilda Stiles APRN.PCB DESIGNER 12/12/2023 4:43 PM Signed Patient declined test cell technician. Amirah Woodard is a 18 year old [...] L0 SAB0 IAB0 Ectopic0 Multiple0 Live Births0 Roll Cleaner History LMP: 10/08/2023 (Exact Date), Having periods Age at Menarche: Age at First : Age at Menopause: Roll Cleaner History Comments: Sexual Activity: Yes; Male Contraception: [...] (FLONASE) 50 mcg/actuation nasal spray Use 1 Chamberlain in each nostril once daily. loratadine (CLARITIN) [...] discussed with the Patient or Patient's Authorized News Reel Cameraman. As applicable, any other physician, advance practice provider, medical student, or other health professional student that will be observing or involved in the sensitive examination for educational or training purposes was discussed with the Patient or Authorized News Reel Cameraman. The Patient or Authorized News Reel Cameraman has agreed to proceed with the sensitive examination. (Sensitive examination includes inspection and/or palpation of the breasts, pelvis, prostate and anorectal regions). EXAM: LMP 10/08/2023 GENERAL: pleasant, female in no apparent distress HEENT: Normocephalic, atraumatic, mucus membranes moist, and no lesions CHEST: Normal inspiratory effort PELVIC: external genitalia normal, normal Bartholin's glands, urethra, Firestone's glands, no vulvar lesions, no cervical lesions, [...] notify patient of test results. Nilda Stiles APRN.PCB DESIGNER Medical Decision Making: Problems: Moderate: New problem with uncertain prognosis Data: U (more content not included)... Normal [facility] T3Free SerPl-mCncon 12-12-19 24 Free T3 [Mass/Vol] 3.2 pg/mL Normal 2.3-4.1 [facility] Comment on above: Order Comment: Speci men Type: BLOOD SPECIMENOrdering Facility: [facility] Address: [address] [place] [address] Performed By: #### 3 051-0, 7, 3 ####[facility] [id number] [place] [address] [place] T4 Free SerPl-mCncon 024 Free T4 [Mass/Vol] 1.2 ng/dL Normal 0.9-1.7 [facility] Comment on above: Order Comment: Speci men Type: BLOOD SPECIMENOrdering Facility: [facility] Address: [address] [place] [address] Performed By: #### 3 051-0, 3023-7, 3 ####[facility] [id number] [place] [address] [place] THYROID PEROXIDASE ANTIBODYo n 12-12-2023 TPO Ab Qn [IU]/mL Normal <5.6 [facility] Comment on above: Order Comment: Speci men Type: BLOOD SPECIMENOrdering Facility: [facility] Address: [address] [place] [address] Result Comment: Thyr oid Peroxidase Antibody test is used as an aid in diagnosis of autoimmune thyroid disease. Clinical correlation is required. Performed By: #### M ICRO ####[facility] [id number] [place] [address] [place] TSH SerPl-aCncon 12-12-2023 TSH Qn 1.050 m[IU]/L Normal 0.510-4.300 [facility] Comment on above: Order Comment: Speci men Type: BLOOD SPECIMENOrdering Facility: [facility] Address: [address] [place] [address] Result Comment: If t he patient is , TSH reference range varies by gestational period: First Trimester (weeks 9-12): 0.180-2.990 mIU/L Second Trimester: 0.110-3.980 mIU/L Third Trimester: 0.480-4.710 mIU/L Dayo Wagner, et al. A Practical Approach for the Verifications and Determination of Site- and Trimester-Specific Reference Intervals for Thyroid Function tests in . Thyroid, 2019:29:3:412-420. Edmar E, et al. 2017 Guidelines of the [place] Thy[employer] Association for the Diagnosis and Management of Thyroid Disease during and the . Thyroid, 2017:27:3:315-389. Reference ranges were not locally established for this patient's age group. The normal values are based on the following source: Yarelis W, Chante V. Reference Ranges for Adults and Children: Pre-analytical Considerations. [facility] Performed By: #### 3 051-0, 3024-7, 3016-3 ####[facility] [id number] [place] [address] [place] UROGENITAL UREAPLASMA AND MY COPLASMA SPECIES BY PCR, FOR GENITAL, RECTAL, URINE SAMPLESon 12-12-2023 M GENITALIUM PCR Not detected Normal [facility] Comment on above: Order Comment: Speci men Type: SWABOrdering Facility: [facility] Address: [address] [place] [address] Result Comment: INTE RPRETIVE INFORMATION: Urogenital Ureaplasma and Mycoplasma Species by PCR A negative result does not rule out the presence of PCR inhibitors in the patient specimen or test-specific nucleic acid in concentrations below the level of detection by this test. This test was developed and its performance characteristics determined by [employer]. It has not been cleared or approved by the [place] Food and Drug Administration. This test was performed in a CLIA certified laboratory and is intended for clinical purposes. Performed By: [facility] [address] [place] [address] [employer]ar [employer] Supervisor: Jonathan Guzman MD, PhD [facility] Number: [id number] Performed By: #### U RMPCR ####[facility] [id number] [place] [address] MYCOPLAS HOMINIS PCR Not detected Normal [facility] Comment on above: Order Comment: Speci men Type: SWABOrdering Facility: [facility] Address: [address] [place] [address] Performed By: #### U RMPCR ####[facility] [id number] [place] [address] UR PARVUM PCR Detected Abnormal [facility] Comment on above: Order Comment: Speci men Type: SWABOrdering Facility: [facility] Address: [address] [place] [address] Performed By: #### U RMPCR ####[facility] [id number] [place] [address] UR UREALYTICUM PCR Not detected Normal [facility] Comment on above: Order Comment: Speci men Type: SWABOrdering Facility: [facility] Address: [address] [place] [address] Performed By: #### U RMPCR ####[facility] [id number] [place] [address] UR/MYCO SOURCE Genital Normal [facility] Comment on above: Order Comment: Speci men Type: SWABOrdering Facility: [facility] Address: [address] [place] [address] Performed By: #### U RMPCR ####[facility] [id number] [place] [address] Ankle min 3 Viewson 11-15-19 Ankle min 3 Views [facility] [address] [place] [address] Ankle min 3 Views MR#: [id number] Acct: [id number] Name: AMIRAH WOODARD Rep #: [id number] : 2005 F 18 From: Bruno Méndez MD PCP: Dr. Que Chavez MD Status: DEP AMB Study: Ankle min 3 Views Date of Exam: 11/15/23 Exam# [id number] Ordering Dr: Antwon Miranda MD [id number] STUDY: X-RAY - LEFT ANKLE REASON FOR [...] 15:51 EDT Reading Location ID and State: [address] [place] [address] , Service support , CC: Dr. Que Chavez MD; Dr. Antwon Miranda MD Sweat Box Attendant: Signed Normal [facility] Orthopedic Visit Reporton Orthopedic Visit Report [facility] [facility] [address] [place] [address] OFFICE VISIT Date of Service: 11/15/23 MR#: [id number] Acct: [id number] Name: AMIRAH WOODARD Rep #: [id number] : 2005 Provider: Dr. Antwon sebastian MD Age/Sex: 18/F Location: [facility] Status: Signed Intake Vital Signs 11/14/23 09:57 Height 5 ft 3 in Intake Visit Reasons: LEFT LEG Chief Complaint: left ankle Accompanied by: Self Is patient in pain?: No Allergies No Known Allergies Allergy (Verified 11/15/23 15:06) Medications ???Medication ???Instructions ???Recorded ???Confirmed ???Type Lactobacillus 25 billion cap PO 10/04/23 11/15/23 History cell-Bifido 25 billion xmvm-ACG-zazoy capsule albuterol sulfate 90 mcg/actuation inhalation 10/04/23 [...] Cosigner Signature: Date (if applicable) CC: Normal [facility] CNOVon 10-31-2023 CNOV Office Visit (PEDSWS ) AMIRAH WOODARD ([id number]) 3 F Date Time Provider Department 10/31/23 [...] button - completed 7 day course Monistat, LEAF BLENDER advised in office visit with them Allergy/Immunology [...] (FLONASE) 50 mcg/actuation nasal spray Use 1 Chamberlain in each nostril once daily. loratadine (CLARITIN) [...] satisfactory Screening tools reviewed and discussed with patient/pytvpc-KID-1 and Social Determinants of Health. Please see Patient Entered Data. SDOH: Food Insecurity: No F (more content not included)... Normal [facility] Ankle min 3 Viewson 10-18-19 Ankle min 3 Views [facility] [address] [place] [address] Ankle min 3 Views MR#: [id number] Acct: [id number] Name: AMIARH WOODARD Rep #: [id number] : 2005 F 18 From: Feliciano narayan MD PCP: Dr. Que Chavez MD Status: DEP AMB Study: Ankle min 3 Views Date of Exam: 10/18/23 Exam# [id number] Ordering Dr: Antwon Miranda MD [id number] INDICATION: fu EXAMINATION/TECHNIQUE: X-RAY - LEFT XR [...] Que Chavez MD; Dr. Antwon Miranda MD Sweat Box Attendant: Signed Normal [facility] Orthopedic Visit Reporton Orthopedic Visit Report [facility] [address] [place] [address] [address] [place] [address] OFFICE VISIT Date of Service: 10/18/23 MR#: [id number] Acct: [id number] Name: AMIRAH WOODARD Rep #: [id number] : 2005 Provider: Dr. Antwon sebastian MD Age/Sex: 18/F Location: [facility] Status: Signed Intake Vital Signs 10/03/23 08:06 Height 5 ft 3 in Intake Visit Reasons: LEFT LEG Accompanied by: Mother Is patient in pain?: No Allergies No Known Allergies Allergy (Verified 10/18/23 10:05) Medications ???Medication ???Instructions ???Recorded ???Confirmed ???Type Lactobacillus 25 billion cap PO 10/04/23 10/18/23 History cell-Bifido 25 billion skvs-PEE-sbduk capsule albuterol sulfate 90 mcg/actuation inhalation 10/04/23 [...] Cosigner Signature: Date (if applicable) CC: Normal [facility] STREP A MOLECULAR (POC)on Procedural Control Valid [facility] Strep A (POCT) Negative Negative [facility] BACTERIAL VAGINOSIS NAATon 0 07-12-2023 Interpretation and review of laboratory results Abnormal [facility] Lactobacillus crispatus+gasseri+imelda enii + Gardnerella vaginalis + Atopobium vaginae rRNA MEG+probe Ql (Vag fld) Positive Abnormal Negative for bacterial vaginosis [facility] FRANCO/TRICHOMONAS NAATon 0 07-12-2023 C. glabrata RNA MEG+probe Ql (Vag fld) Negative Negative for Franco glabrata [facility] Franco sp DNA MEG+probe Ql (Vag fld) Negative Negative for Franco species [facility] Interpretation and review of laboratory results Normal [facility] T. vaginalis DNA MEG+probe Ql (Unsp spec) Negative Negative for Trichomonas vaginalis by amplification [facility] US Pelvis transvaginalon [facility] BACTERIAL VAGINOSIS NAATon 0 05-04-2023 Lactobacillus crispatus+gasseri+imelda enii + Gardnerella vaginalis + Atopobium vaginae rRNA MEG+probe Ql (Vag fld) Negative Negative for bacterial vaginosis [facility] C. trachomatis+N. gonorrhoea e DNA MEG+probe Ql (Unsp spec)on 05-04-2023 C. trachomatis rRNA MEG+probe Ql (Unsp spec) Negative Negative for Chlamydia trachomatis by amplificaton [facility] N. gonorrhoeae rRNA MEG+probe Ql (Unsp spec) Negative Negative for Neisseria gonorrhoeae by amplification [facility] FRANCO/TRICHOMONAS NAATon 0 05-04-2023 C. glabrata RNA MEG+probe Ql (Vag fld) Negative Negative for Franco glabrata [facility] Franco sp DNA MEG+probe Ql (Vag fld) Negative Negative for Franco species [facility] T. vaginalis DNA MEG+probe Ql (Unsp spec) Negative Negative for Trichomonas vaginalis by amplification [facility] HCG QUAL UR B/Oon 07-15-2022 status Negative neg - pos [facility] Quality Check Yes [facility] Vital Signs Date Time Vital Sign Value Performing Clinician Facility 10-13-2024 01:46-0400 Heart rate 90 /min Dr. Ruiz Vega DO Work Phone: [facility] 10-13-2024 01:46-0400 SaO2% (BldA) [Mass fraction] 97 % Dr. Ruiz Vega DO Work Phone: [facility] 10-12-2024 23:44-0400 Diastolic blood pressure 82 mm[Hg] Dr. Ruiz Vega DO Work Phone: [facility] 10-12-2024 23:44-0400 Systolic blood pressure 122 mm[Hg] Dr. Ruiz Vega DO Work Phone: [facility] 10-12-2024 23:43-0400 Body temperature 97.7 [degF] Dr. Ruiz Vega DO Work Phone: [facility] 10-12-2024 23:43-0400 Respiratory rate 16 /min Dr. Ruiz Vega DO Work Phone: [facility] 10-12-2024 23:35-0400 Body height 162.[address] Ruiz Vega DO Work Phone: [facility] 10-12-2024 23:35-0400 Body mass index (BMI) [Ratio] 38.6 kg/m2 Dr. Ruiz Vega DO Work Phone: [facility] 10-12-2024 23:35-0400 Body weight [address] Ruiz Vega DO Work Phone: [facility] 10-05-2024 16:20-0400 Body mass index (BMI) [Ratio] 37.85 kg/m2 Delfina Watson APRN.CNM Work Phone: [facility] 10-05-2024 16:20-0400 Body weight 103.06 kg Delfina Watson APRN.CNM Work Phone: [facility] 10-05-2024 16:20-0400 Diastolic blood pressure 74 mm[Hg] Delfina Watson APRN.CNM Work Phone: [facility] 10-05-2024 16:20-0400 Systolic blood pressure 110 mm[Hg] Delfina Watson APRN.CNM Work Phone: [facility] 09-25-2024 14:06-0400 Body mass index (BMI) [Ratio] 36.99 kg/m2 Janelle Marin MD Work Phone: [facility] 09-25-2024 14:06-0400 Body weight 100.7 kg Janelle Marin MD Work Phone: [facility] 09-25-2024 14:06-0400 Diastolic blood pressure 70 mm[Hg] Janelle Marin MD Work Phone: [facility] 09-25-2024 14:06-0400 Systolic blood pressure 110 mm[Hg] Janelle Marin MD Work Phone: [facility] 09-18-2024 13:26-0400 Body mass index (BMI) [Ratio] 37.02 kg/m2 Alo Thompson MD Work Phone: [facility] 09-18-2024 13:26-0400 Body weight 100.79 kg Alo Thompson MD Work Phone: [facility] 09-18-2024 13:26-0400 Diastolic blood pressure 72 mm[Hg] Alo Thompson MD Work Phone: [facility] 09-18-2024 13:26-0400 Systolic blood pressure 110 mm[Hg] Alo Thompson MD Work Phone: [facility] 09-12-2024 10:33-0400 Body mass index (BMI) [Ratio] 35.99 kg/m2 Castillo Mckeon MD Work Phone: [facility] 09-12-2024 10:33-0400 Body weight 97.98 kg Castillo Mckeon MD Work Phone: [facility] 09-12-2024 10:33-0400 Diastolic blood pressure 82 mm[Hg] Castillo Mckeon MD Work Phone: [facility] 09-12-2024 10:33-0400 Systolic blood pressure 124 mm[Hg] Castillo Mckeon MD Work Phone: [facility] 09-04-2024 12:22-0400 Body temperature 98 [degF] Dr. Ruiz Vega DO Work Phone: 6(328)698-567564 [place] [address] 09-04-2024 12:22-0400 Diastolic blood pressure 75 mm[Hg] Dr. Ruiz Vega DO Work Phone: 6(585)949-454[address] [place] [address] 09-04-2024 12:22-0400 Heart rate 99 /min Dr. Ruiz Vega DO Work Phone: 5(407)924-008764 [place] [address] 09-04-2024 12:22-0400 Respiratory rate 17 /min Dr. Ruiz Vega DO Work Phone: 4(861)068-293500 [place] [address] 09-04-2024 12:22-0400 SaO2% (BldA) [Mass fraction] 94 % Dr. Ruiz Vega DO Work Phone: 5(489)899-802700 [place] [address] 09-04-2024 12:22-0400 Systolic blood pressure 115 mm[Hg] Dr. Ruiz Vega DO Work Phone: 5(584)099-557[address] [place] [address] 09-04-2024 10:11-0400 Body height 162.[address] Ruiz Vega DO Work Phone: 8(748)328-393700 [place] [address] 09-04-2024 10:11-0400 Body mass index (BMI) [Ratio] 37.1 kg/m2 Dr. Ruiz Vega DO Work Phone: 8(985)360-312064 [place] [address] 09-04-2024 10:11-0400 Body weight 98.[address] Ruiz Vega DO Work Phone: 0(000)724-663100 [place] [address] 09-04-2024 09:32-0400 Body mass index (BMI) [Ratio] 35.65 kg/m2 Janelle Marin MD Work Phone: [facility] 09-04-2024 09:32-0400 Body weight 97.07 kg Janelle Marin MD Work Phone: [facility] 09-04-2024 09:32-0400 Diastolic blood pressure 76 mm[Hg] Janelle Marin MD Work Phone: [facility] 09-04-2024 09:32-0400 Heart rate 126 /min Janelle Marin MD Work Phone: [facility] 09-04-2024 09:32-0400 SaO2% (BldA) [Mass fraction] 98 % Janelle Marin MD Work Phone: [facility] 09-04-2024 09:32-0400 Systolic blood pressure 128 mm[Hg] Janelle Marin MD Work Phone: [facility] 08-30-2024 14:52-0400 Body mass index (BMI) [Ratio] 36.15 kg/m2 La Plotts FLAKER TENDER.CNM Work Phone: [facility] 08-30-2024 14:52-0400 Body weight 98.43 kg La Plotts FLAKER TENDER.CNM Work Phone: [facility] 08-30-2024 14:52-0400 Diastolic blood pressure 68 mm[Hg] La Plotts FLAKER TENDER.CNM Work Phone: [facility] 08-30-2024 14:52-0400 Systolic blood pressure 120 mm[Hg] [place] Pl[place] FLAKER TENDER.CNM Work Phone: [facility] 08-16-2024 14:23-0400 Body mass index (BMI) [Ratio] 35.49 kg/m2 Lindsey Hawander FLAKER TENDER.PCB DESIGNER Work Phone: [facility] 08-16-2024 14:23-0400 Body weight 96.62 kg Lindsey Haury FLAKER TENDER.PCB DESIGNER Work Phone: [facility] 08-16-2024 14:23-0400 Diastolic blood pressure 62 mm[Hg] Lindsey Haury FLAKER TENDER.PCB DESIGNER Work Phone: [facility] 08-16-2024 14:23-0400 Systolic blood pressure 112 mm[Hg] Lindsey Haury FLAKER TENDER.PCB DESIGNER Work Phone: [facility] 08-13-2024 09:18-0400 Body height 165 cm Ruiz Vega DO Work Phone: [facility] 08-13-2024 09:18-0400 Body mass index (BMI) [Ratio] 35.15 kg/m2 Ruiz Vega DO Work Phone: [facility] 08-13-2024 09:18-0400 Body temperature 96.4 [degF] Ruiz Vega DO Work Phone: [facility] 08-13-2024 09:18-0400 Body weight 95.71 kg Ruiz Vega DO Work Phone: [facility] 08-13-2024 09:18-0400 Diastolic blood pressure 60 mm[Hg] Ruiz Vega DO Work Phone: [facility] 08-13-2024 09:18-0400 Heart rate 88 /min Ruiz Vega DO Work Phone: [facility] 08-13-2024 09:18-0400 Respiratory rate 16 /min Ruiz Vega DO Work Phone: [facility] 08-13-2024 09:18-0400 Systolic blood pressure 90 mm[Hg] Ruiz Vega DO Work Phone: [facility] 08-01-2024 09:33-0400 Body mass index (BMI) [Ratio] 36.39 kg/m2 Castillo Mckeon MD Work Phone: [facility] 08-01-2024 09:33-0400 Body weight 96.16 kg Castillo Mckeon MD Work Phone: [facility] 08-01-2024 09:33-0400 Diastolic blood pressure 78 mm[Hg] Castillo Mckeon MD Work Phone: [facility] 08-01-2024 09:33-0400 Systolic blood pressure 128 mm[Hg] Castillo Mckeon MD Work Phone: [facility] 07-20-2024 08:32-0400 Body mass index (BMI) [Ratio] 35.36 kg/m2 Lindsey Moreno APRN.PCB DESIGNER Work Phone: [facility] 07-20-2024 08:32-0400 Body weight 93.44 kg Lindsey Haury FLAKER TENDER.PCB DESIGNER Work Phone: [facility] 07-20-2024 08:32-0400 Diastolic blood pressure 64 mm[Hg] Lindsey Moreno FLAKER TENDER.PCB DESIGNER Work Phone: [facility] 07-20-2024 08:32-0400 Systolic blood pressure 118 mm[Hg] Lindsey Moreno FLAKER TENDER.PCB DESIGNER Work Phone: [facility] 06-21-2024 13:04-0400 Body mass index (BMI) [Ratio] 34.67 kg/m2 La Plotts FLAKER TENDER.CNM Work Phone: [facility] 06-21-2024 13:04-0400 Body weight 91.63 kg La Plotts FLAKER TENDER.CNM Work Phone: [facility] 06-21-2024 13:04-0400 Diastolic blood pressure 62 mm[Hg] La Plotts FLAKER TENDER.CNM Work Phone: [facility] 06-21-2024 13:04-0400 Systolic blood pressure 114 mm[Hg] La Plotts FLAKER TENDER.CNM Work Phone: [facility] 06-19-2024 14:38-0400 Body mass index (BMI) [Ratio] 35.02 kg/m2 Janelle Marin MD Work Phone: [facility] 06-19-2024 14:38-0400 Body weight 92.53 kg Janelle Marin MD Work Phone: [facility] 06-19-2024 14:38-0400 Diastolic blood pressure 60 mm[Hg] Janelle Marin MD Work Phone: [facility] 06-19-2024 14:38-0400 Systolic blood pressure 120 mm[Hg] Janelle Marin MD Work Phone: [facility] 06-06-2024 13:05-0400 Body mass index (BMI) [Ratio] 34.67 kg/m2 La Plotts FLAKER TENDER.CNM Work Phone: [facility] 06-06-2024 13:05-0400 Body weight 91.63 kg La Plotvida FLAKER TENDER.CNM Work Phone: [facility] 06-06-2024 13:05-0400 Diastolic blood pressure 66 mm[Hg] La Plotvida FLAKER TENDER.CNM Work Phone: [facility] 06-06-2024 13:05-0400 Systolic blood pressure 114 mm[Hg] La Del Castillo FLAKER TENDER.CNM Work Phone: [facility] 05-25-2024 15:18-0400 Body mass index (BMI) [Ratio] 34.16 kg/m2 Kia Lucero MD Work Phone: [facility] 05-25-2024 15:18-0400 Body weight 90.27 kg Kia Lucero MD Work Phone: [facility] 05-25-2024 15:18-0400 Diastolic blood pressure 70 mm[Hg] Kia Lucero MD Work Phone: [facility] 05-25-2024 15:18-0400 Systolic blood pressure 114 mm[Hg] Kia Lucero MD Work Phone: [facility] 04-27-2024 13:06-0500 Body mass index (BMI) [Ratio] 33.81 kg/m2 Delfina Watson FLAKER TENDER.CNM Work Phone: [facility] 04-27-2024 13:06-0500 Body weight 89.36 kg Delfina Watson FLAKER TENDER.CNM Work Phone: [facility] 04-27-2024 13:06-0500 Diastolic blood pressure 68 mm[Hg] Delfina Watson FLAKER TENDER.CNM Work Phone: [facility] 04-27-2024 13:06-0500 Systolic blood pressure 116 mm[Hg] Delfina Watson FLAKER TENDER.CNM Work Phone: [facility] 04-03-2024 16:15-0500 Body mass index (BMI) [Ratio] 33.3 kg/m2 Delfina Watson FLAKER TENDER.CNM Work Phone: [facility] 04-03-2024 16:15-0500 Body weight 88 kg Delfina Watson FLAKER TENDER.CNM Work Phone: [facility] 04-03-2024 16:15-0500 Diastolic blood pressure 60 mm[Hg] Delfina Watson FLAKER TENDER.CNM Work Phone: [facility] 04-03-2024 16:15-0500 Systolic blood pressure 104 mm[Hg] Delfina Watson FLAKER TENDER.CNM Work Phone: [facility] 03-28-2024 09:18-0500 Body mass index (BMI) [Ratio] 33.13 kg/m2 Duncan Munguia MD Work Phone: [facility] 03-28-2024 09:18-0500 Body weight 87.54 kg Duncan Munguia MD Work Phone: [facility] 03-28-2024 09:18-0500 Diastolic blood pressure 70 mm[Hg] Duncan Munguia MD Work Phone: [facility] 03-28-2024 09:18-0500 Systolic blood pressure 120 mm[Hg] Duncan Munguia MD Work Phone: [facility] 03-19-2024 13:50-0500 Body mass index (BMI) [Ratio] 33.15 kg/m2 Josiane Luzader FLAKER TENDER.PCB DESIGNER Work Phone: [facility] 03-19-2024 13:50-0500 Body temperature 98.2 [degF] Josiane Luzader FLAKER TENDER.PCB DESIGNER Work Phone: [facility] 03-19-2024 13:50-0500 Body weight 87.6 kg Josiane Luzader FLAKER TENDER.PCB DESIGNER Work Phone: [facility] 03-19-2024 13:50-0500 Heart rate 84 /min Josiane Luzader FLAKER TENDER.PCB DESIGNER Work Phone: [facility] 03-19-2024 13:50-0500 Respiratory rate 16 /min Josiane Luzader FLAKER TENDER.PCB DESIGNER Work Phone: [facility] 03-13-2024 11:57-0500 Body mass index (BMI) [Ratio] 32.96 kg/m2 Roberto Clutter PA-C Work Phone: [facility] 03-13-2024 11:57-0500 Body temperature 97.59 [degF] Roberto Clutter PA-C Work Phone: [facility] 03-13-2024 11:57-0500 Body weight 87.1 kg Roberto Clutter PA-C Work Phone: [facility] 03-13-2024 11:57-0500 Diastolic blood pressure 72 mm[Hg] Roberto Clutter PA-C Work Phone: [facility] 03-13-2024 11:57-0500 Heart rate 87 /min Roberto Clutter PA-C Work Phone: [facility] 03-13-2024 11:57-0500 Respiratory rate 18 /min Roberto Clutter PA-C Work Phone: [facility] 03-13-2024 11:57-0500 SaO2% (BldA) [Mass fraction] 98 % Roberto Clutter PA-C Work Phone: [facility] 03-13-2024 11:57-0500 Systolic blood pressure 110 mm[Hg] Roberto Clutter PA-C Work Phone: [facility] 02-21-2024 08:17-0500 Body height 162.6 cm Nilda Williams FLAKER TENDER.PCB DESIGNER Work Phone: [facility] 02-21-2024 08:17-0500 Body mass index (BMI) [Ratio] 32.41 kg/m2 Nilda Linsey FLAKER TENDER.PCB DESIGNER Work Phone: [facility] 02-21-2024 08:17-0500 Body weight 85.64 kg Nilda Linsey FLAKER TENDER.PCB DESIGNER Work Phone: [facility] 02-21-2024 08:17-0500 Diastolic blood pressure 78 mm[Hg] Nilda Williams FLAKER TENDER.PCB DESIGNER Work Phone: [facility] 02-21-2024 08:17-0500 Systolic blood pressure 124 mm[Hg] Nilda Linsey FLAKER TENDER.PCB DESIGNER Work Phone: [facility] 01-30-2024 14:05-0500 Body mass index (BMI) [Ratio] 30.55 kg/m2 Nilda Williams FLAKER TENDER.PCB DESIGNER Work Phone: [facility] 01-30-2024 14:05-0500 Body weight 85 kg Nilda Williams FLAKER TENDER.PCB DESIGNER Work Phone: [facility] 01-30-2024 14:05-0500 Diastolic blood pressure 72 mm[Hg] Nilda Williams FLAKER TENDER.PCB DESIGNER Work Phone: [facility] 01-30-2024 14:05-0500 Systolic blood pressure 116 mm[Hg] Nilda Linsey FLAKER TENDER.PCB DESIGNER Work Phone: [facility] 12-12-2023 15:32-0400 Body mass index (BMI) [Ratio] 30.49 kg/m2 Nilda Linsey FLAKER TENDER.PCB DESIGNER Work Phone: [facility] 12-12-2023 15:32-0400 Body weight 84.82 kg Nilda Linsey FLAKER TENDER.PCB DESIGNER Work Phone: [facility] 12-12-2023 15:32-0400 Diastolic blood pressure 66 mm[Hg] Nilda Linsey FLAKER TENDER.PCB DESIGNER Work Phone: [facility] 12-12-2023 15:32-0400 Systolic blood pressure 122 mm[Hg] Nilda Williams FLAKER TENDER.PCB DESIGNER Work Phone: [facility] 10-31-2023 10:56-0400 Body height 166.8 cm Sommer Hernandez PA-C Work Phone: [facility] 10-31-2023 10:56-0400 Body mass index (BMI) [Ratio] 30.8 kg/m2 Sommer Hernandez PA-C Work Phone: [facility] 10-31-2023 10:56-0400 Body temperature 98.2 [degF] Sommer Hernandez PA-C Work Phone: [facility] 10-31-2023 10:56-0400 Body weight 85.68 kg Sommer Hernandez PA-C Work Phone: [facility] Comment on above: in a boot at this time 10-31-2023 10:56-0400 Diastolic blood pressure 78 mm[Hg] Sommer Hernandez PA-C Work Phone: [facility] 10-31-2023 10:56-0400 Heart rate 102 /min Sommer Hernandez PA-C Work Phone: [facility] 10-31-2023 10:56-0400 Respiratory rate 18 /min Sommer Hernandez PA-C Work Phone: [facility] 10-31-2023 10:56-0400 Systolic blood pressure 116 mm[Hg] Sommer Hernandez PA-C Work Phone: [facility] 08-25-2023 13:59-0400 Body weight 86.91 kg Nilda Williams FLAKER TENDER.PCB DESIGNER Work Phone: [facility] 08-25-2023 13:59-0400 Diastolic blood pressure 60 mm[Hg] Nilda Williams FLAKER TENDER.PCB DESIGNER Work Phone: [facility] 08-25-2023 13:59-0400 Systolic blood pressure 110 mm[Hg] Nilda Linsey FLAKER TENDER.PCB DESIGNER Work Phone: [facility] 08-21-2023 10:35-0400 Body temperature 97.5 [degF] Alecia Vanessa FLAKER TENDER.PCB DESIGNER Work Phone: [facility] 08-21-2023 10:35-0400 Body weight 86.5 kg Alecia Vanessa FLAKER TENDER.PCB DESIGNER Work Phone: [facility] 08-21-2023 10:35-0400 Diastolic blood pressure 81 mm[Hg] Alecia Vanessa FLAKER TENDER.PCB DESIGNER Work Phone: [facility] 08-21-2023 10:35-0400 Heart rate 104 /min Alecia Vanessa FLAKER TENDER.PCB DESIGNER Work Phone: [facility] 08-21-2023 10:35-0400 Respiratory rate 18 /min Alecia Vanessa FLAKER TENDER.PCB DESIGNER Work Phone: [facility] 08-21-2023 10:35-0400 SaO2% (BldA) [Mass fraction] 98 % Alecia Vanessa FLAKER TENDER.PCB DESIGNER Work Phone: [facility] 08-21-2023 10:35-0400 Systolic blood pressure 112 mm[Hg] Alecia Vanessa FLAKER TENDER.PCB DESIGNER Work Phone: [facility] 07-29-2023 08:08-0400 Body weight 86.91 kg Nilda Linsey FLAKER TENDER.PCB DESIGNER Work Phone: [facility] 07-29-2023 08:08-0400 Diastolic blood pressure 66 mm[Hg] Nilda Linsey FLAKER TENDER.PCB DESIGNER Work Phone: [facility] 07-29-2023 08:08-0400 Systolic blood pressure 118 mm[Hg] Nilda Linsey FLAKER TENDER.PCB DESIGNER Work Phone: [facility] 07-11-2023 14:09-0400 Body weight 87.09 kg Nilda Linsey FLAKER TENDER.PCB DESIGNER Work Phone: [facility] 07-11-2023 14:09-0400 Diastolic blood pressure 74 mm[Hg] Nilda Linsey FLAKER TENDER.PCB DESIGNER Work Phone: [facility] 07-11-2023 14:09-0400 Systolic blood pressure 118 mm[Hg] Nilda Williams FLAKER TENDER.PCB DESIGNER Work Phone: [facility] 06-24-2023 14:28-0400 Body temperature 97.5 [degF] Que Chavez MD Work Phone: [facility] 06-24-2023 14:28-0400 Body weight 88.22 kg Que Chavez MD Work Phone: [facility] 06-24-2023 14:28-0400 Heart rate 80 /min Que Chavez MD Work Phone: [facility] 06-24-2023 14:28-0400 Respiratory rate 16 /min Que Chavez MD Work Phone: [facility] 05-16-2023 14:25-0400 Body weight 88.45 kg Kia Lucero MD Work Phone: [facility] 05-16-2023 14:25-0400 Diastolic blood pressure 70 mm[Hg] Kia Lucero MD Work Phone: [facility] 05-16-2023 14:25-0400 Systolic blood pressure 102 mm[Hg] Kia Lucero MD Work Phone: [facility] 05-03-2023 14:36-0500 Body weight 88.81 kg Delfina Watson FLAKER TENDER.CNM Work Phone: [facility] 05-03-2023 14:36-0500 Diastolic blood pressure 72 mm[Hg] Delfina Watson FLAKER TENDER.CNM Work Phone: [facility] 05-03-2023 14:36-0500 Systolic blood pressure 110 mm[Hg] Delfina Watson FLAKER TENDER.CNM Work Phone: [facility] 10-05-2022 11:36-0400 Body height 158.2 cm Sommer Hernandez PA-C Work Phone: [facility] 10-05-2022 11:36-0400 Body mass index (BMI) [Percentile] Per age and sex 98.12 % Sommer Hernandez PA-C Work Phone: [facility] 10-05-2022 11:36-0400 Body temperature 97.7 [degF] Sommer Hernandez PA-C Work Phone: [facility] 10-05-2022 11:36-0400 Body weight 92.08 kg Sommer Hernandez PA-C Work Phone: [facility] 10-05-2022 11:36-0400 Diastolic blood pressure 74 mm[Hg] Sommer Hernandez PA-C Work Phone: [facility] 10-05-2022 11:36-0400 Heart rate 98 /min Sommer Hernandez PA-C Work Phone: [facility] 10-05-2022 11:36-0400 Respiratory rate 18 /min Sommer Hernandez PA-C Work Phone: [facility] 10-05-2022 11:36-0400 Systolic blood pressure 124 mm[Hg] Sommer Hernandez PA-C Work Phone: [facility] 07-15-2022 15:03-0400 Body weight 88 kg Nilda Linsey FLAKER TENDER.PCB DESIGNER Work Phone: [facility] 07-15-2022 15:03-0400 Diastolic blood pressure 76 mm[Hg] Nilda Williams FLAKER TENDER.PCB DESIGNER Work Phone: [facility] 07-15-2022 15:03-0400 Systolic blood pressure 100 mm[Hg] Nilda Linsey FLAKER TENDER.PCB DESIGNER Work Phone: [facility] 05-27-2022 11:36-0400 Body temperature 97.3 [degF] Ramon Patrick MD Work Phone: [facility] 05-27-2022 11:36-0400 Body weight 86.55 kg Ramon Patrick MD Work Phone: [facility] 05-27-2022 11:36-0400 Diastolic blood pressure 86 mm[Hg] Ramon Patrick MD Work Phone: [facility] 05-27-2022 11:36-0400 Heart rate 19 /min Ramon Patrick MD Work Phone: [facility] 05-27-2022 11:36-0400 Respiratory rate 18 /min Ramon Patrick MD Work Phone: [facility] 05-27-2022 11:36-0400 SaO2% (BldA) [Mass fraction] 97 % Ramon Patrick MD Work Phone: [facility] 05-27-2022 11:36-0400 Systolic blood pressure 110 mm[Hg] Ramon Patrick MD Work Phone: [facility] 05-07-2022 08:58-0500 Body temperature 98.6 [degF] Sommer Hernandez PA-C Work Phone: [facility] 05-07-2022 08:58-0500 Body weight 87.32 kg Sommer Hernandez PA-C Work Phone: [facility] 05-07-2022 08:58-0500 Heart rate 100 /min Sommer Hernandez PA-C Work Phone: [facility] 05-07-2022 08:58-0500 Respiratory rate 16 /min Sommer Hernandez PA-C Work Phone: [facility] 04-12-2022 08:30-0500 Body weight 86.82 kg Nilda Williams FLAKER TENDER.PCB DESIGNER Work Phone: [facility] 04-12-2022 08:30-0500 Diastolic blood pressure 60 mm[Hg] Nilda Linsey FLAKER TENDER.PCB DESIGNER Work Phone: [facility] 04-12-2022 08:30-0500 Systolic blood pressure 100 mm[Hg] Nilda Williams FLAKER TENDER.PCB DESIGNER Work Phone: [facility] 03-16-2022 09:53-0500 Body weight 86.46 kg Nilda Linsey FLAKER TENDER.PCB DESIGNER Work Phone: [facility] 03-16-2022 09:53-0500 Diastolic blood pressure 68 mm[Hg] Nilda Williams FLAKER TENDER.PCB DESIGNER Work Phone: [facility] 03-16-2022 09:53-0500 Systolic blood pressure 100 mm[Hg] Nilda Williams FLAKER TENDER.PCB DESIGNER Work Phone: [facility] 01-18-2022 10:13-0500 Body temperature 97.7 [degF] Alecia Mendez FLAKER TENDER.PCB DESIGNER Work Phone: [facility] 01-18-2022 10:13-0500 Body weight 83.46 kg Alecia Vanessa FLAKER TENDER.PCB DESIGNER Work Phone: [facility] 01-18-2022 10:13-0500 Diastolic blood pressure 64 mm[Hg] Alecia Vanessa FLAKER TENDER.PCB DESIGNER Work Phone: [facility] 01-18-2022 10:13-0500 Heart rate 112 /min Alecia Vanessa FLAKER TENDER.PCB DESIGNER Work Phone: [facility] 01-18-2022 10:13-0500 Respiratory rate 16 /min Alecia Vanessa FLAKER TENDER.PCB DESIGNER Work Phone: [facility] 01-18-2022 10:13-0500 SaO2% (BldA) [Mass fraction] 96 % Alecia Vanessa FLAKER TENDER.PCB DESIGNER Work Phone: [facility] 01-18-2022 10:13-0500 Systolic blood pressure 118 mm[Hg] Alecia Vanessa FLAKER TENDER.PCB DESIGNER Work Phone: [facility] 10-28-2021 08:55-0400 Body height 163.8 cm Sommer Hernandez PA-C Work Phone: [facility] 10-28-2021 08:55-0400 Body mass index (BMI) [Percentile] Per age and sex 96.45 % Sommer Hernandez PA-C Work Phone: [facility] 10-28-2021 08:55-0400 Body temperature 97.9 [degF] Sommer Hernandez PA-C Work Phone: [facility] 10-28-2021 08:55-0400 Body weight 84.37 kg Sommer Hernandez PA-C Work Phone: [facility] 10-28-2021 08:55-0400 Heart rate 80 /min Sommer Hernandez PA-C Work Phone: [facility] 10-28-2021 08:55-0400 Respiratory rate 16 /min Sommer Hernandez PA-C Work Phone: [facility] 10-05-2021 12:50-0400 Body temperature 97.9 [degF] Alecia Vanessa FLAKER TENDER.PCB DESIGNER Work Phone: [facility] 10-05-2021 12:50-0400 Body weight 83.46 kg Alecia Vanessa FLAKER TENDER.PCB DESIGNER Work Phone: [facility] 10-05-2021 12:50-0400 Diastolic blood pressure 76 mm[Hg] Alecia Vnaessa FLAKER TENDER.PCB DESIGNER Work Phone: [facility] 10-05-2021 12:50-0400 Heart rate 88 /min Alecia Vanessa FLAKER TENDER.PCB DESIGNER Work Phone: [facility] 10-05-2021 12:50-0400 Respiratory rate 16 /min Alecia Vanessa FLAKER TENDER.PCB DESIGNER Work Phone: [facility] 10-05-2021 12:50-0400 SaO2% (BldA) [Mass fraction] 98 % Alecia Vanessa FLAKER TENDER.PCB DESIGNER Work Phone: [facility] 10-05-2021 12:50-0400 Systolic blood pressure 124 mm[Hg] Alecia Vanessa FLAKER TENDER.PCB DESIGNER Work Phone: [facility] 07-13-2021 09:04-0400 Body height 163.4 cm Que Chavez MD Work Phone: [facility] 07-13-2021 09:04-0400 Body mass index (BMI) [Percentile] Per age and sex 96.38 % Que Chavez MD Work Phone: [facility] 07-13-2021 09:04-0400 Body temperature 97.7 [degF] Que Chavez MD Work Phone: [facility] 07-13-2021 09:04-0400 Body weight 83.01 kg Que Chavez MD Work Phone: [facility] 07-13-2021 09:04-0400 Heart rate 92 /min Que Chavez MD Work Phone: [facility] 07-13-2021 09:04-0400 Respiratory rate 20 /min Que Chavez MD Work Phone: [facility] 06-12-2021 09:04-0400 Body temperature 97.7 [degF] Que Chavez MD Work Phone: [facility] 06-12-2021 09:04-0400 Body weight 82.1 kg Que Chavez MD Work Phone: [facility] 06-12-2021 09:04-0400 Diastolic blood pressure 80 mm[Hg] Que Chavez MD Work Phone: [facility] 06-12-2021 09:04-0400 Heart rate 80 /min Que Chavez MD Work Phone: [facility] 06-12-2021 09:04-0400 Respiratory rate 18 /min Que Chavez MD Work Phone: [facility] 06-12-2021 09:04-0400 Systolic blood pressure 118 mm[Hg] Que Chavez MD Work Phone: [facility] Encounters Encounter Date Encounter Type Care Provider Facility Start: 10-12-2024 End: 10-13-[address] Ruiz Vega DO Work Phone: [facility] Start: 10-12-2024 End: 10-13-2024 Patient encounter procedure Delfina Watson CNM [facility] Work Phone: Start: 10-09-2024 End: 10-09-2024 ambulatory RUIZ VEGA Facility:[facility] Start: 10-05-2024 End: 10-05-2024 Patient encounter procedure Delfina Watson APRN.CNM Work Phone: OB/Gynecology Comment on above: 39 weeks gestation o f (HCC) (Primary Dx); Supervision of high risk in third trimester (HCC); Obesity in (HCC); Positive GBS test Start: 10-05-2024 End: 10-05-2024 ambulatory RUIZ VEGA Facility:[facility] Start: 09-25-2024 End: 09-25-2024 Patient encounter procedure Janelle Marin MD Work Phone: OB/Gynecology Comment on above: Supervision of high risk in third trimester (HCC) (Primary Dx); 38 weeks gestation of (HCC) Start: 09-25-2024 End: 09-25-2024 ambulatory RUIZ VEGA Facility:[facility] Start: 09-18-2024 End: 09-18-2024 Patient encounter procedure Alo Thompson MD Work Phone: OB/Gynecology Comment on above: Supervision of high risk in third trimester (HCC) (Primary Dx); 37 weeks gestation of (HCC); Positive GBS test Start: 09-18-2024 End: 09-18-2024 ambulatory RUIZ VEGA Facility:[facility] Start: 09-12-2024 End: 09-12-2024 Patient encounter procedure Castillo Mckeon MD Work Phone: OB/Gynecology Comment on above: 36 weeks gestation o f (HCC) (Primary Dx); Supervision of high risk in third trimester (HCC); Obesity affecting in third trimester, unspecified obesity type (HCC); Heartburn during in third trimester (HCC) Start: 09-12-2024 End: 09-12-2024 ambulatory RUIZ VEGA Facility:[facility] Start: 09-04-2024 End: 09-04-2024 Follow-up encounter [...] 09-04-2024 End: 09-04-2024 ambulatory RUIZ L VEGA Facility:[facility] Start: 08-30-2024 End: 08-30-2024 Patient encounter procedure La Del Castillo APRN.CNM Work Phone: OB/Gynecology Comment on above: Supervision of high risk in third trimester (HCC) (Primary Dx); Obesity affecting in third trimester, unspecified obesity type (HCC); 34 weeks gestation of (HCC) Start: 08-30-2024 End: 08-30-2024 ambulatory RUIZ L VEGA Facility:[facility] Start: 08-16-2024 End: 08-16-2024 Patient encounter procedure Lindsey Moreno APRN.PCB DESIGNER Work Phone: OB/Gynecology Comment on above: Supervision of high risk in third trimester (HCC) (Primary Dx); 32 weeks gestation of (HCC); Obesity affecting in third trimester, unspecified obesity type (HCC) Start: 08-16-2024 Encounter for genera l adult medical examination without abnormal findings RUIZ VEGA [facility] Start: 08-16-2024 End: 08-16-2024 ambulatory RUIZ L VEGA Facility:[facility] Start: 08-13-2024 End: 08-13-2024 Patient encounter procedure Ruiz Wagner Vega DO Work Phone: [facility] Comment on above: Well adult exam ([facility] Dx); 31 weeks gestation of (HCC); Class 2 obesity with body mass index (BMI) of 35.0 to 35.9 in adult, unspecified obesity type, unspecified whether serious comorbidity present; Gastroesophageal reflux disease without esophagitis Start: 08-13-2024 End: 08-13-2024 Patient encounter status Ruiz L Vega DO Work Phone: [facility] Work Phone: Start: 08-13-2024 End: 08-13-2024 ambulatory RUIZ L VEGA Facility:[facility] Start: 08-06-2024 End: 08-08-2024 Telephone encounter La Del Castillo APRN.CNM Work Phone: OB/Gynecology Comment on above: breast pump Start: 08-03-2024 End: 08-03-2024 Telephone encounter Nurse Communications Professional Manisha Bond Work Phone: Obstetrics/Gynecology Comment on [...] Start: 08-01-2024 End: 08-01-2024 ambulatory CASTILLO MCKEON Facility:[facility] Start: 07-23-2024 End: 09-22-2024 Follow-up encounter Castillo Mckeon MD Work Phone: OB/Gynecology Start: 07-20-2024 End: 07-20-2024 Patient encounter procedure Lindsey Moreno APRN.PCB DESIGNER Work Phone: OB/Gynecology Comment on above: Supervision of high risk in third trimester (HCC) (Primary Dx); 28 weeks gestation of (HCC); Obesity affecting in third trimester, unspecified obesity type (HCC); Vaginal discharge during in third trimester (HCC) Start: 07-20-2024 End: 07-20-2024 ambulatory SELF Facility:[facility] Start: 07-19-2024 End: 07-19-2024 Telephone encounter [...] 06-21-2024 End: 06-21-2024 ambulatory LA DEL CASTILLO Facility:[facility] Start: 06-19-2024 End: 06-19-2024 ambulatory KIA LUCERO Facility:[facility] Start: 06-19-2024 End: 06-19-2024 Patient encounter procedure Janelle Marin MD Work Phone: OB/Gynecology Comment on above: 24 weeks gestation o f (HCC) (Primary Dx); Obesity in (HCC); Screening for diabetes mellitus Start: 06-06-2024 End: 06-06-2024 ambulatory Kia Lucero MD Work Phone: OB/Gynecology Comment on above: Possible [place] hic ks Start: 06-06-2024 End: 06-06-2024 Patient encounter procedure La Del Castillo APRN.CNM Work Phone: OB/Gynecology Comment on above: Obesity in (HCC) (Primary Dx); Supervision of normal first teen in second trimester (HCC); 22 weeks gestation of (HCC); Cramping affecting , antepartum (HCC) Start: 05-29-2024 End: 07-29-2024 Follow-up encounter Delfina Watson APRN.CNM Work Phone: OB/Gynecology Start: 05-28-2024 End: 05-28-2024 Telephone encounter Nurse Communications Professional Manisha Bond Work Phone: Obstetrics/Gynecology Comment on above: PRAF Start: 05-25-2024 End: 05-25-2024 Office outpatient visit 15 minutes Kia Lucero MD Work Phone: OB/Gynecology Comment on above: Supervision of jas l first teen in second trimester (Primary Dx); Obesity in ; 20 weeks gestation of Start: 05-25-2024 End: 05-25-2024 ambulatory DELFINA WATSON Facility:[facility] Start: 05-25-2024 End: 05-25-2024 Patient encounter procedure Whi Tech 1 Communications Professional [facility] Comment on above: Obesity in (Primary Dx); Supervision of normal first teen in first trimester; 13 weeks gestation of Start: 05-01-2024 End: 05-01-2024 Telephone encounter Janelle Marin MD Work Phone: OB/Gynecology Comment on above: Question (OB Questio n) Start: 04-28-2024 End: 04-28-2024 Emergency department patient visit Que Chavez Facility:[facility] Start: 04-27-2024 End: 04-27-2024 ambulatory DELFINA WATSON Facility:[facility] Start: 04-27-2024 End: 04-27-2024 Patient encounter procedure Delfina Walter FLAKER TENDER.CNM Work Phone: OB/Gynecology Comment on above: Supervision of jas l first teen in second trimester (Primary Dx); Obesity in ; 16 weeks gestation of ; Dizziness Start: 04-13-2024 End: 04-13-2024 Telephone encounter La Del Castillo APRN.CNM Work Phone: OB/Gynecology Start: 04-10-2024 End: 04-10-2024 Refill Que Chavez MD Work Phone: [facility] Comment on above: Refill Request Start: 04-03-2024 End: 04-03-2024 ambulatory NILDA LINSEY Facility:[facility] Start: 04-03-2024 End: 04-03-2024 Patient encounter procedure Delfina Watson FLAKER TENDER.CNM Work Phone: OB/Gynecology Comment on above: Supervision of jas l first teen in first trimester (Primary Dx); 13 weeks gestation of ; Obesity in Encounter for jyoti ferrell screening for malformation using ultrasound (Primary Dx); 13 weeks gestation of Start: 03-28-2024 End: 03-28-2024 ambulatory DUNCAN MUNGUIA Facility:[facility] Start: 03-28-2024 End: 03-28-2024 Patient encounter procedure Duncan Munguia MD Work Phone: OB/Gynecology Comment on above: Vaginal irritation ( Primary Dx); Vaginal discharge; Encounter for care in first trimester of first ; 12 weeks gestation of Start: 03-27-2024 End: 03-27-2024 ambulatory Delfina Watson FLAKER TENDER.CNM Work Phone: OB/Gynecology Comment on above: Possible yeast infec tion Start: 03-22-2024 End: 03-22-2024 Telephone encounter La Del Castillo FLAKER TENDER.CNM Work Phone: OB/Gynecology Comment on above: Medication Question Start: 03-19-2024 End: 03-19-2024 ambulatory QUE CHAVEZ Facility:[facility] Start: 03-19-2024 End: 03-19-2024 Patient encounter procedure Josiane Goodwin FLAKER TENDER.PCB DESIGNER Work Phone: [facility] [place] Comment on above: Acute non-recurrent frontal sinusitis (Primary Dx) Start: 03-13-2024 End: 03-13-2024 Office outpatient new 30 minutes Roberto Powers PA-C Work Phone: [place] [facility] Comment on above: Sore throat (Primary Dx) Start: 03-13-2024 End: 03-13-2024 ambulatory QUE CHAVEZ Facility:[facility] Start: 03-10-2024 End: 03-10-2024 ambulatory Vivian Jefferson RN NURSE WHOLESALE ACCOUNT EXECUTIVE Start: 03-10-2024 End: 03-10-2024 Patient encounter procedure Vivian Jefferson RN NURSE ON [facility] Comment on above: Clinical Update Start: 02-24-2024 End: 02-24-2024 Get Medical Advice Nilda Stiles FLAKER TENDER.PCB DESIGNER Work Phone: OB/Gynecology Comment on above: Lab Orders Start: 02-23-2024 End: 02-23-2024 Telephone encounter Pauline Au RN Obstetrics/Gynecology Comment on above: PRAF Start: 02-21-2024 End: 02-21-2024 ambulatory QUE CHAVEZ Facility:[facility] Start: 02-21-2024 End: 02-21-2024 Patient encounter procedure Nilda Bellcalf FLAKER TENDER.PCB DESIGNER Work Phone: OB/Gynecology Comment on above: Encounter for prenat al care in first trimester of first (Primary Dx); 7 weeks gestation of ; Vaginal irritation; BMI 32.0-32.9,adult; Supervision of normal first teen in first trimester Start: 01-30-2024 End: 01-30-2024 ambulatory QUE CHAVEZ Facility:[facility] Start: 01-30-2024 End: 01-30-2024 Patient encounter procedure Nilda Stiles FLAKER TENDER.PCB DESIGNER Work Phone: OB/Gynecology Comment on above: Encounter for pregna ncy test, result positive (Primary Dx) Start: 12-15-2023 End: 12-15-2023 Telephone encounter Nilda Stiles APRN.PCB DESIGNER Work Phone: OB/Gynecology Comment on above: Results Start: 12-12-2023 End: 12-12-2023 ambulatory QUE CHAVEZ Facility:[facility] Start: 12-12-2023 End: 12-12-2023 Patient encounter procedure Nilda Bellcalf FLAKER TENDER.PCB DESIGNER Work Phone: OB/Gynecology Comment on above: Vaginal discharge (P rimary Dx); Vaginal irritation; Family history of thyroid disorder Start: 11-15-2023 End: 11-15-2023 [facility] Facility[facility] Start: 10-31-2023 End: 10-31-2023 ambulatory QUE CHAVEZ Facility:[facility] Start: 10-31-2023 End: 10-31-2023 Patient encounter procedure Sommer Hernandez PA-C Work Phone: [facility] [place] Comment on above: Encounter for wellne ss examination in adult (Primary Dx); Mild intermittent asthma with (acute) exacerbation; Seborrhea; Adverse food reaction, initial encounter Start: 10-31-2023 End: 10-31-2023 Patient encounter status Sommer Hernandez PA-C Work Phone: [facility] Work Phone: Start: 10-28-2023 End: 10-28-2023 Refill Que Chavez MD Work Phone: [facility] [place] Comment on above: Refill Request Start: 10-18-2023 End: 10-18-2023 ambulatory [facility] Facility:[facility] Start: 09-05-2023 Refill Que Chavez MD Work Phone: [facility] [place] Comment on above: Refill Request Start: 08-25-2023 End: 08-25-2023 Patient encounter procedure Nilda Linsey FLAKER TENDER.PCB DESIGNER Work Phone: OB/Gynecology Comment on above: Vaginal burning (Yudith bell Dx) Start: 08-21-2023 End: 08-21-2023 Patient encounter procedure Alecia Vanessa FLAKER TENDER.PCB DESIGNER Work Phone: [place] [facility] Comment on above: Sore throat (Primary Dx); Viral illness Start: 08-02-2023 Telephone encounter Nilda [facility] care home FLAKER TENDER.PCB DESIGNER Work Phone: OB/Gynecology Comment on above: Results Start: 07-29-2023 End: 07-29-2023 Patient encounter procedure Nilda Williams FLAKER TENDER.PCB DESIGNER Work Phone: OB/Gynecology Comment on above: Vaginal discharge (P rimary Dx) Start: 07-28-2023 Refill Rachael Huffman FLAKER TENDER.PCB DESIGNER Work Phone: OB/Gynecology Comment on above: Refill Request Start: 07-12-2023 Telephone encounter Nilda [facility] care home FLAKER TENDER.PCB DESIGNER Work Phone: OB/Gynecology Comment on above: Results Start: 07-11-2023 End: 07-11-2023 Patient encounter procedure Nilda Linsey FLAKER TENDER.PCB DESIGNER Work Phone: OB/Gynecology Comment on above: Vaginal [...] End: 05-13-2023 Subsequent hospital visit by physician [facility] 2 Work Phone: Radiology Comment on above: Pelvic pain in femal e [R10.2] Start: 05-03-2023 End: 05-03-2023 Patient encounter procedure Delfina Watson APRN.CNM Work Phone: OB/Gynecology Comment on above: Vaginal discharge (P rimary Dx); Vaginal itching; Pelvic pain in female Start: 04-28-2023 ambulatory Sommer Hernandez PA-C Work Phone: [facility] [place] Comment on above: Allergy testing Start: 11-11-2022 ambulatory Nilda Stiles FLAKER TENDER.PCB DESIGNER Work Phone: [place] [facility] Start: 11-11-2022 Patient encounter procedure Re nee Williams FLAKER TENDER.PCB DESIGNER Work Phone: OB/Gynecology Comment on above: Should I make an ck ointment Start: 10-05-2022 End: 10-05-2022 Patient encounter procedure Sommer Hernandez PA-C Work Phone: [facility] [place] Comment on above: Encounter for wellne ss examination in adult (Primary Dx); Encounter for immunization Start: 10-05-2022 End: 10-05-2022 Patient encounter status Sommer Hernandez PA-C Work Phone: [facility] Work Phone: Start: 07-15-2022 End: 07-15-2022 Patient encounter procedure Nilda Williams FLAKER TENDER.PCB DESIGNER Work Phone: OB/Gynecology Comment on above: Missed period (Prima ry Dx); Encounter for other contraceptive management Start: 07-09-2022 ambulatory Nilda Williams FLAKER TENDER.PCB DESIGNER Work Phone: OB/Gynecology Comment on above: control Start: 05-27-2022 End: 05-27-2022 Patient encounter procedure Ramon Patrick MD Work Phone: [facility] Comment on above: URI, acute (Primary Dx); Wheezing Start: 05-10-2022 E-mail encounter fro m caregiver Nilda Bellcalf FLAKER TENDER.PCB DESIGNER Work Phone: [facility] Start: 05-10-2022 Patient encounter procedure Re nee Williams FLAKER TENDER.PCB DESIGNER Work Phone: OB/Gynecology Comment on above: appointment 05/17/22 Start: 05-07-2022 End: 05-07-2022 Patient encounter procedure Sommer Hernandez PA-C Work Phone: [facility] Comment on above: Dysfunction of both eustachian tubes (Primary Dx); Seasonal allergies Start: 04-30-2022 ambulatory Nilda Williams FLAKER TENDER.PCB DESIGNER Work Phone: OB/Gynecology Comment on above: Bacterial Vaginosis Start: 04-13-2022 Telephone encounter Nilda [facility] FLAKER TENDER.PCB DESIGNER Work Phone: OB/Gynecology Comment on above: Results Start: 04-12-2022 End: 04-12-2022 Patient encounter procedure Nilda Linsey FLAKER TENDER.PCB DESIGNER Work Phone: OB/Gynecology Comment on above: Vaginal irritation ( Primary Dx) Start: 04-09-2022 Telephone encounter Nilda [facility] care home FLAKER TENDER.PCB DESIGNER Work Phone: OB/Gynecology Comment on above: Appointment (1st att empt no answer, no voicemail. Called to R/S w/ R.Williams for 2/6.) Start: 03-16-2022 End: 03-16-2022 Patient encounter procedure Nilda Stiles FLAKER TENDER.PCB DESIGNER Work Phone: OB/Gynecology Comment on above: Pelvic pain in femal e (Primary Dx); Encounter for surveillance of contraceptive pills Start: 01-18-2022 End: 01-18-2022 Patient encounter procedure Alecia Hodarrin FRITZ.PCB DESIGNER Work Phone: [facility] Comment on above: Acute cough (Primary Dx); Fever, unspecified fever cause; Sore throat; URI with cough and congestion Start: 12-28-2021 End: 12-28-2021 Patient encounter procedure [facility] [place] [facility] [place] Comment on above: Encounter for immuni zation (Primary Dx) Start: 10-28-2021 End: 10-28-2021 Patient encounter procedure Sommer Hernandez PA-C Work Phone: [facility] [place] Comment on above: Seasonal allergies ( Primary Dx) Start: 10-05-2021 End: 10-05-2021 Patient encounter procedure Alecia Hodarrin FRITZ.PCB DESIGNER Work Phone: [place] [facility] Comment on above: Upper respiratory sy mptom (Primary Dx); Suspected COVID-19 virus infection Start: 09-18-2021 End: 09-18-2021 ambulatory Erinn Woody MD Work Phone: OB/Gynecology Comment on above: LEAF BLENDER Ultrasound Start: 09-18-2021 End: 09-18-2021 Patient encounter procedure Erinn Woody MD Work Phone: [place] [facility] Start: 07-13-2021 End: 07-13-2021 Patient encounter procedure Que Chavez MD Work Phone: [facility] [place] Comment on above: Encounter for [facility] (w ell child check) with abnormal findings [...] et rgnt non-auto w/o micrscp Delfina Watson FLAKER TENDER.CNM Work Phone: Start: 09-25-2024 Urnls dip stick/tabl [...] rgnt non-auto w/o micrscp La Del Castillo FLAKER TENDER.CNM Work Phone: Start: 06-06-2024 Urnls dip stick/tabl et rgnt auto w/o microscopy La Del Castillo FLAKER TENDER.CNM Work Phone: Start: 05-25-2024 Us preg uterus after 1st trimest / gestation Delfina Watson FLAKER TENDER.CNM Work Phone: Start: 04-03-2024 Us nuchal translucency 1st gestation Nilda Linsey FLAKER TENDER.PCB DESIGNER Work Phone: Start: 03-13-2024 STREP A MOLECULAR (POC) Delfina Nicholas FLAKER TENDER.PCB DESIGNER Work Phone: Start: 02-24-2024 Antibody screen NILDA LOWE Comment on above: Order Comment: Speci men Type: SWAB Ordering Facility: [facility] Address: [address] [place] [address] Performed By: #### C VTV, BVAMP #### [facility] CLIA [id number] [address] [place] [address] [place] [address] [place] Start: 02-21-2024 Us uterus l imited fetuses Nilda Williams FLAKER TENDER.PCB DESIGNER Work Phone: Start: 01-30-2024 UA DIP,URINE HCG (POC) Nilda Bellcalf FLAKER TENDER.PCB DESIGNER Work Phone: Start: 10-31-2023 Adult depression scr eening assessment Nilda Linsey FLAKER TENDER.PCB DESIGNER Work Phone: Start: 08-21-2023 STREP A MOLECULAR (POC) [facility] Provider Start: 07-11-2023 BACTERIAL VAGINOSIS NAAT Nilda Bellcalf FLAKER TENDER.PCB DESIGNER Work Phone: Start: 07-11-2023 Iadna trichomonas vaginalis amplified probe tech Nilda Bellcalf FLAKER TENDER.PCB DESIGNER Work Phone: Start: 05-13-2023 Us transvaginal Delfina Watson FLAKER TENDER.CNM Work Phone: Start: 05-03-2023 BACTERIAL VAGINOSIS NAAT Delfina Watson FLAKER TENDER.CNM Work Phone: Start: 05-03-2023 Iadna chlamydia trachomatis amplified probe tq Delfina Watson FLAKER TENDER.CNM Work Phone: Start: 07-15-2022 Urine test visual color cmprsn meths Nilda Williams FLAKER TENDER.PCB DESIGNER Work Phone: Start: 12-28-2021 [facility] COVI D-19 PRIMARY SERIES VACCINE, AGE 12+ YR Sommer Hernandez PA-C Work Phone: Start: 07-13-2021 Adult depression scr eening assessment Que Chavez MD Work Phone: Start: 05-05-2017 Adult depression scr eening assessment Que Chavez MD Work Phone: Plan of Treatment Date Care Activity Detail Author Start: 06-13-2031 Urine microalbumin profile [facility] Start: 08-13-2025 Annual PCP Team Plastic Joint Maker lluvia Disease Visit Annual PCP Team Chronic Disease Visit [facility] Start: 03-19-2025 Annual PCP Team Plastic Joint Maker lluvia Disease Visit Annual PCP Team Chronic Disease Visit [facility] Start: 02-20-2025 GC (Gonorrhea) Scree alexsandra (18) GC (Gonorrhea) Screening () [facility] Start: 02-20-2025 Screening for Chlamy morgan trachomatis Chlamydia Screening () [facility] Start: 12-14-2024 End: 12-14-2024 Patient encounter procedure 12/14/2024 1:40 PM EDT Office Visit [facility] [place] [address] [place], [place] [id number] Ruiz Vega DO [address] [place], [place] [address] Follow up [facility] [place] Comment on above: Follow up Start: 11-05-2024 Influenza vaccination Influenza Vacc ine (#1) [facility] Start: 10-30-2024 Annual PCP Team Plastic Joint Maker lluvia Disease Visit Annual PCP Team Chronic Disease Visit [facility] Start: 10-30-2024 Anxiety Screening Anxiety Screening [facility] Start: 10-30-2024 Asthma Control Test Asthma Control T est [facility] Start: 10-30-2024 Depression Screening Depression Scre ening [facility] Start: 10-15-2024 ambulatory Ambulatory Facility:[facility] Start: 10-13-2024 [facility] Start: 10-12-2024 Nonstress test [facility] Start: 10-12-2024 Obstetric monitoring [facility] Start: 10-12-2024 Vital signs measurements [facility] Start: 10-12-2024 [facility] Start: 10-09-2024 End: 10-09-2024 Patient encounter procedure 10/09/2024 1:40 PM EDT Routine Office Visit OB/Gynecology [address] [place] [address] Castillo Mckeon MD [address] [place] [address] OB OB/Gynecology Comment on above: OB Start: 10-05-2024 End: 10-05-2024 Patient encounter procedure 10/05/2024 4:30 PM EDT Routine Office Visit OB/Gynecology [address] [place] [address] Delfina Watson APRN.[facility] [address] [place] [address] OB OB/Gynecology Comment on above: OB Start: 10-02-2024 End: 10-02-2024 Patient encounter procedure 10/02/2024 1:30 PM EDT Routine Office Visit OB/Gynecology [address] [place] [address] Kia Lucero MD [address] [place] [address] OB OB/Gynecology Comment on above: OB Start: 09-25-2024 End: 09-25-2024 Patient encounter procedure 09/25/2024 2:20 PM EDT Routine Office Visit OB/Gynecology [address] [place] [address] Janelle Marin MD [address] [place] [address] OB OB/Gynecology Comment on above: OB Start: 09-18-2024 End: 09-18-2024 Patient encounter procedure 09/18/2024 1:30 PM EDT Routine Office Visit OB/Gynecology [address] [place] [address] Alo Thompson MD [address] [place] [address] (Fax) OB OB/Gynecology Comment on above: OB Start: 09-12-2024 End: 09-12-2024 Patient encounter procedure 09/12/2024 10:10 AM EDT Routine Office Visit OB/Gynecology [address] [place] [address] Castillo Mckeon MD [address] [place] [address] (Fax) OB OB/Gynecology Comment on above: OB Start: 09-04-2024 [facility] Start: 09-04-2024 [facility] Start: 08-30-2024 End: 08-30-2024 Patient encounter procedure 08/30/2024 3:15 PM EDT Routine Office Visit OB/Gynecology [address] [place] [address] La Del Castillo APRN.CNM [address] [place] [address] (Fax) Ob OB/Gynecology Comment on above: Ob Start: 08-16-2024 End: 08-16-2024 Patient encounter procedure 08/16/2024 2:30 PM EDT Routine Office Visit OB/Gynecology [address] [place] [address] Lindsey Moreno APRN.PCB DESIGNER [address] [place] [address] (Fax) OB OB/Gynecology Comment on above: OB Start: 08-13-2024 End: 08-13-2024 Patient encounter procedure 08/13/2024 9:20 AM EDT Office Visit [facility] [place] [address] [place] [address] Ruiz Vega L, DO [address] [place] [address] Transfer from peds/[facility] Comment on above: Transfer from peds/[facility] Start: 08-03-2024 End: 08-03-2024 Patient encounter procedure 08/03/2024 2:30 PM EDT Routine Office Visit OB/Gynecology [address] [place] [address] Erinn Schwartz MD [address] [place] [address] OB OB/Gynecology Comment on above: OB Start: 08-02-2024 End: 08-02-2024 Patient encounter procedure 08/02/2024 10:30 AM EDT Routine Office Visit OB/Gynecology [address] [place] [address] La Del Castillo APRN.CNM [address] [place] [address] OB OB/Gynecology Comment on above: OB Start: 08-01-2024 End: 10-31-2024 BILE ACIDS, TOTAL [facility] Work Phone: Comment on above: Expected: 08/01/2024 , Expires: 10/31/2024 Start: 07-20-2024 End: 07-20-2024 Patient encounter procedure 07/20/2024 8:45 AM EDT Routine Office Visit OB/Gynecology [address] [place] [address] Lindsey Moreno APRN.PCB DESIGNER [address] [place] [address] OB Routine OB/Gynecology Comment on above: OB Routine Start: 07-20-2024 End: 07-20-2024 ambulatory 07/20/2024 8:30 AM EDT Results Only [place] [facility] [address] [place] [address] Glucose Test and LABs [facility] Comment on above: Glucose Test and LAB s Start: 06-23-2024 Annual PCP Team Plastic Joint Maker lluvia Disease Visit Annual PCP Team Chronic Disease Visit [facility] Start: 06-19-2024 End: 06-19-2024 Patient encounter procedure 06/19/2024 2:40 PM EDT Routine Office Visit OB/Gynecology [address] [place] [address] Kia Lucero MD [address] [place] [address] OB OB/Gynecology Comment on above: OB Start: 06-19-2024 End: 09-18-2024 ANEMIA REFLEX PANEL ANEMIA REFLEX PANEL Lab Routine 24 weeks gestation of ([facility]) Expected: 06/19/2024, Expires: 09/18/2024 [facility] Comment on above: Expected: 06/19/2024 , Expires: 09/18/2024 Start: 06-19-2024 End: 06-19-2025 GESTATIONAL GLUCOSE SCREEN, 1-HOUR, 50 GRAM, NON-FASTING GESTATIONAL GLUCOSE SCREEN, 1-HOUR, 50 GRAM, NON-FASTING Lab Routine 24 weeks gestation of ([facility]) Screening for diabetes mellitus Expected: 06/19/2024, Expires: 06/19/2025 [facility] Work Phone: Comment on above: Expected: 06/19/2024 , Expires: 06/19/2025 Start: 06-19-2024 End: 06-19-2025 SYPHILIS TREPONEMAL W/REFLEX SYPHILIS TREPONEMAL W/REFLEX Lab Routine 24 weeks gestation of ([facility]) Expected: 06/19/2024, Expires: 06/19/2025 [facility] [facility] Comment on above: Expected: 06/19/2024 , Expires: 06/19/2025 Start: 05-25-2024 End: 05-25-2024 Patient encounter procedure Maternal Medicine Comment on above: Anatomy OB Start: 05-03-2024 GC (Gonorrhea) Scree alesxandra (17) GC (Gonorrhea) Screening () [facility] Start: 05-03-2024 Screening for Chlamy morgan trachomatis Chlamydia Screening () [facility] Start: 04-27-2024 End: 04-27-2024 Patient encounter procedure 04/27/2024 1:15 PM EST Routine Office Visit OB/Gynecology [address] [place], [place] [id number] Delfina Watson APRN.CN [address] [place] [address] OB OB/Gynecology Comment on above: OB Start: 04-03-2024 End: 04-03-2024 Patient encounter procedure Maternal Medicine Comment on above: Nuchal Nuchal/ OB Start: 04-03-2024 End: 04-03-2025 OBSTETRIC ULTRASOUND WHI OBSTETRIC ULTRASOUND WHI Anc Imaging Routine Supervision of normal first teen in first trimester 13 weeks gestation of Obesity in Expected: 04/03/2024, Expires: 04/03/2025 [facility] Work Phone: Comment on above: Expected: 04/03/2024 , Expires: 04/03/2025 Start: 03-28-2024 End: 03-28-2024 Patient encounter procedure 03/28/2024 9:10 AM EST Routine Office Visit OB/Gynecology [address], [place] [id number] Duncan Munguia MD [address] [place] [address] vaginal infection OB/Gynecology Comment on above: vaginal infection Start: 02-21-2024 End: 05-22-2024 ANEMIA REFLEX PANEL ANEMIA REFLEX PANEL Lab Routine Encounter for care in first trimester of first 7 weeks gestation of Expected: 02/21/2024, Expires: 05/22/2024 [facility] Work Phone: Comment on above: Expected: 02/21/2024 , Expires: 05/22/2024 Start: 02-21-2024 End: 05-22-2024 Chromosome 21 trisomy [Presence] in Blood or Tissue by Cytogenetics [id number] PLUS Lab Routine 7 weeks gestation of Expected: 02/21/2024, Expires: 05/22/2024 [facility] Comment on above: Expected: 02/21/2024 , Expires: 05/22/2024 Start: 02-21-2024 End: 05-22-2024 Hemoglobin A1c in Blood HEMOGLOBIN A1C Lab Routine Encounter for care in first trimester of first 7 weeks gestation of Expected: 02/21/2024, Expires: 05/22/2024 [facility] Comment on above: Expected: 02/21/2024 , Expires: 05/22/2024 Start: 02-21-2024 End: 05-22-2024 Hepatitis B virus surface Ag [Presence] in Serum HEPATITIS B SURFACE ANTIGEN Lab Routine Encounter for care in first trimester of first 7 weeks gestation of Expected: 02/21/2024, Expires: 05/22/2024 [facility] Comment on above: Expected: 02/21/2024 , Expires: 05/22/2024 Start: 02-21-2024 End: 05-22-2024 Hepatitis C virus Ab [Presence] in Serum HEPATITIS C ANTIBODY IA WITH CONFIRMATION Lab Routine Encounter for care in first trimester of first 7 weeks gestation of Expected: 02/21/2024, Expires: 05/22/2024 [facility] Comment on above: Expected: 02/21/2024 , Expires: 05/22/2024 Start: 02-21-2024 End: 05-22-2024 HIV 1+2 Ab [Presence] in Serum or Plasma by Immunoassay HIV 1/2 COMBO WITH REFLEX TO DIFFERENTIATION Lab Routine Encounter for care in first trimester of first 7 weeks gestation of Expected: 02/21/2024, Expires: 05/22/2024 [facility] Comment on above: Expected: 02/21/2024 , Expires: 05/22/2024 Start: 02-21-2024 End: 02-20-2025 NUCHAL TRANSLUCENCY WHI NUCHAL TRANSLUCENCY WHI Anc Imaging Routine Encounter for care in first trimester of first 7 weeks gestation of Expected: 02/21/2024, Expires: 02/20/2025 [facility] Comment on above: Expected: 02/21/2024 , Expires: 02/20/2025 Start: 02-21-2024 End: 05-22-2024 RUBELLA IGG ANTIBODY RUBELLA IGG ANTIBODY Lab Routine Encounter for care in first trimester of first 7 weeks gestation of Expected: 02/21/2024, Expires: 05/22/2024 [facility] Comment on above: Expected: 02/21/2024 , Expires: 05/22/2024 Start: 02-21-2024 End: 05-22-2024 SYPHILIS TREPONEMAL W/REFLEX SYPHILIS TREPONEMAL W/REFLEX Lab Routine Encounter for care in first trimester of first 7 weeks gestation of Expected: 02/21/2024, Expires: 05/22/2024 [facility] Comment on above: Expected: 02/21/2024 , Expires: 05/22/2024 Start: 02-21-2024 End: 05-22-2024 TYPE + SCREEN TYPE + SCREEN Blood Bank Routine Encounter for care in first trimester of first 7 weeks gestation of Expected: 02/21/2024, Expires: 05/22/2024 [facility] Comment on above: Expected: 02/21/2024 , Expires: 05/22/2024 Start: 02-21-2024 End: 02-21-2024 Patient encounter procedure 02/21/2024 8:15 AM EST Initial Office Visit OB/Gynecology [address] [place] [address] Nilda Stiles APRN.PCB DESIGNER [address] [place] [address] New OB OB/Gynecology Comment on above: New OB Start: 12-12-2023 End: 03-12-2024 THYROID PEROXIDASE ANTIBODY [facility] Comment on above: Expected: 12/12/2023 , Expires: 03/12/2024 Start: 12-12-2023 End: 03-12-2024 Thyrotropin [Units/volume] in Serum or Plasma [facility] Work Phone: Comment on above: Expected: 12/12/2023 , Expires: 03/12/2024 Start: 12-12-2023 End: 03-12-2024 Thyroxine (T4) free [Mass/volume] in Serum or Plasma [facility] Comment on above: Expected: 12/12/2023 , Expires: 03/12/2024 Start: 12-12-2023 End: 03-12-2024 Triiodothyronine (T3) Free [Mass/volume] in Serum or Plasma [facility] Comment on above: Expected: 12/12/2023 , Expires: 03/12/2024 Start: 12-07-2023 End: 12-07-2023 Patient encounter procedure 12/07/2023 8:30 AM EDT Office Visit Allergy [address] [id number] Tio Wilcox MD [address], [place] [phone] Adverse food reaction, initial encounter [T78.1XXA] Allergy Comment on above: Adverse food reactio n, initial encounter [T78.1XXA] Start: 11-11-2023 End: 11-11-2023 Patient encounter procedure 11/11/2023 8:00 AM EDT Office Visit OB/Gynecology [address] [place] [address] Nilda Stiles APRN.PCB DESIGNER [address] [facility] [place] [address] yeast infection resistant OB/Gynecology Comment on above: yeast infection resi stant Start: 11-06-2023 Covid-19 Vaccine ( season) Covid-19 Vaccine ( season) [facility] Start: 11-06-2023 Influenza vaccination C [facility] Start: 10-31-2023 End: 10-31-2023 Patient encounter procedure 10/31/2023 11:00 AM EDT Office Visit [facility] [address] [place] [address] Sommer Hernandez PA-C [address] [place] [address] [facility] Comment on above: [facility] Start: 03-16-2023 CHLAMYDIA SCREENING (18-24) CHLAMYDIA SCREENING (18-24) [facility] Start: 03-16-2023 CHLAMYDIA SCREENING (<18) CHLA MYDIA SCREENING (<18) [facility] Start: 03-16-2023 GC (GONORRHEA) SCREE ALEXSANDRA (18-24) GC (GONORRHEA) SCREENING (18-24) [facility] Start: 03-16-2023 GC (GONORRHEA) SCREE ALEXSANDRA (<18) GC (GONORRHEA) SCREENING (<18) [facility] Start: 03-16-2023 Screening for Chlamy morgan trachomatis Chlamydia Screening (18-24) [facility] Start: 03-07-2023 Behavioral Health Screening Behavioral Health Screening [facility] Start: 03-07-2023 Depression Assessment Depression Ass [facility] Start: 11-05-2022 Covid-19 Vaccine ( season) Covid-19 Vaccine ( season) [facility] Start: 11-05-2022 Influenza vaccination [facility] Start: 2022 Anxiety Screening Anxiety Screening [facility] Start: 2022 Depression Screening Depression Scre ening [facility] Start: 2022 HEPATITIS C SCREENING HEPATITIS C [facility] Start: 2022 Hepatitis C screening Hepatitis C [facility] Start: 2022 HIV SCREENING HIV SCREENING [facility] Start: 2022 HIV screening HIV Screening [facility] Start: 2022 Spirometry Spirometry [facility] Start: 07-13-2022 Adult depression screening assessment DEPRESSION SCREENING [facility] Start: 03-07-2022 DEPRESSION ASSESSMENT DEPRESSION ASS ESSMENT [facility] Start: 02-22-2022 COVID-19 VACCINE (3 - Booster for Pfizer series) COVID-19 VACCINE (3 - Booster for Pfizer series) [facility] Start: 02-22-2022 COVID-19 VACCINE (3 - Pfizer series) COVID-19 VACCINE (3 - Pfizer series) [facility] Start: 01-18-2022 End: 02-01-2022 COVID, FLU A/B + RSV, ROUTINE [facility] Work Phone: Comment on above: Expected: 01/18/2022 , Expires: 02/01/2022 Start: 11-05-2021 Influenza vaccination C [facility] Start: 10-05-2021 End: 10-19-2021 COVID, FLU A/B + RSV, ROUTINE COVID, FLU A/B + RSV, ROUTINE Microbiology Routine Upper respiratory symptom Suspected COVID-19 virus infection Expected: 10/05/2021, Expires: 10/19/2021 [facility] Work Phone: Comment on above: Expected: 10/05/2021 , Expires: 10/19/2021 Start: 04-27-2021 Asthma Action Plan Asthma Action Yessenia n [facility] Start: 2020 Meningococcal B Vacc ine (1 of 2 - Standard) Meningococcal B Vaccine (1 of 2 - Standard) [facility] Start: 2020 Meningococcal B Vacc ine: Consider Based On Risk (1 of 2 - Patient Seeks Protection) Meningococcal B Vaccine: Consider Based On Risk (1 of 2 - Patient Seeks Protection) [facility] Start: 2020 MENINGOCOCCAL B: Con collections officer based on risk (1 of 2 - Patient Seeks Protection) MENINGOCOCCAL B: Consider based on risk (1 of 2 - Patient Seeks Protection) [facility] Start: 04-27-2020 Asthma Control Test Asthma Control T est [facility] Start: 10-26-2019 HPV VACCINE (2 - 2-d ose series) HPV VACCINE (2 - 2-dose series) [facility] Start: 08-13-2019 CHLAMYDIA SCREENING (<18) CHLA MYDIA SCREENING (<18) [facility] Start: 08-13-2019 GC (GONORRHEA) SCREE ALEXSANDRA (<18) GC (GONORRHEA) SCREENING (<18) [facility] Start: 2018 PEDS TO ADULT TRANSI TION ANNUAL ASSESSMENT PEDS TO ADULT TRANSITION ANNUAL ASSESSMENT [facility] Start: 05-05-2018 Adult depression screening assessment DEPRESSION SCREENING [facility] Start: 2016 PEDS TO ADULT TRANSI TION INITIAL DISCUSSION PEDS TO ADULT TRANSITION INITIAL DISCUSSION [facility] Start: 2014 MENINGOCOCCAL B: Con collections officer based on risk (1 of 2 - Risk Bexsero 2-dose series) MENINGOCOCCAL B: Consider based on risk (1 of 2 - Risk Bexsero 2-dose series) [facility] Start: 2009 COVID-19 VACCINE (#1) COVID-19 VACCI NE (#1) [facility] Start: 2009 COVID-19 VACCINE (1) COVID-19 VACCIN E (1) [facility] Start: 02-11-2005 COVID-19 VACCINE (#1) COVID-19 VACCI NE (#1) [facility] Bacteria identified in Urine by Culture URINE CULTURE Microbiology Routine Encounter for care in first trimester of first 7 weeks gestation of 02/21/2024 8:57 AM [facility] BACTERIAL VAGINOSIS AMPLIFICATION BACTERIAL VAGINOSIS AMPLIFICATION Lab Routine Pelvic pain in female 03/16/2022 10:38 AM [facility] Work Phone: BACTERIAL VAGINOSIS AMPLIFICATION BACTERIAL VAGINOSIS AMPLIFICATION Lab Routine Vaginal irritation 04/12/2022 8:51 AM [facility] Work Phone: BACTERIAL VAGINOSIS NAAT BACTERI AL VAGINOSIS NAAT Lab Routine Vaginal discharge 07/29/2023 8:31 AM EDT [facility] BACTERIAL VAGINOSIS NAAT BACTERI AL VAGINOSIS NAAT Lab Routine Vaginal discharge [facility]aginal irritation [facility] NAAT BACTERI AL VAGINOSIS NAAT Lab Routine Vaginal irritation 02/21/2024 8:57 AM [facility] BACTERIAL VAGINOSIS NAAT BACTERI AL VAGINOSIS NAAT Lab Routine Vaginal irritation Vaginal discharge 03/28/2024 10:13 AM [facility] Work Phone: BACTERIAL VAGINOSIS NAAT BACTERI AL VAGINOSIS NAAT Lab Routine Vaginal discharge during in third trimester (HCC) 07/20/2024 8:54 AM [facility] Work Phone: FRANCO / TRICHOMONA S AMPLIFICATION FRANCO / TRICHOMONAS AMPLIFICATION Microbiology Routine Pelvic pain in female 03/16/2022 10:38 AM [employer] [facility] Work Phone: FRANCO / TRICHOMONA S AMPLIFICATION FRANCO / TRICHOMONAS AMPLIFICATION Microbiology Routine Vaginal irritation 04/12/2022 8:51 AM [facility] Work Phone: FRANCO/TRICHOMONAS NAAT FRANCO /TRICHOMONAS NAAT Lab Routine Vaginal discharge 07/29/2023 8:31 AM T [facility] Work Phone: FRANCO/TRICHOMONAS NAAT FRANCO /TRICHOMONAS NAAT Lab Routine Vaginal discharge Vaginal irritation 12/12/2023 4:17 PM EDT [facility] FRANCO/TRICHOMONAS NAAT FRANCO /TRICHOMONAS NAAT Lab Routine Vaginal irritation 02/21/2024 8:57 AM [facility] FRANCO/TRICHOMONAS NAAT FRANCO /TRICHOMONAS NAAT Lab Routine Vaginal irritation Vaginal discharge 03/28/2024 10:13 AM [facility] FRANCO/TRICHOMONAS NAAT FRANCO /TRICHOMONAS NAAT Lab Routine Vaginal discharge during in third trimester (HCC) 07/20/2024 8:54 AM [facility] Chlamydia trachomatis+Neisseria gonorrhoeae DNA [Presence] in Unspecified specimen by MEG with probe detection GC/CHLAMYDIA DNA DET Lab Routine Pelvic pain in female 03/16/2022 10:38 AM [facility] Work Phone: Chlamydia trachomatis+Neisseria gonorrhoeae DNA [Presence] in Unspecified specimen by MEG with probe detection GONORRHEA/CHLAMYDIA NAAT Lab Routine Encounter for care in first trimester of first 7 weeks gestation of 02/21/2024 8:57 AM [facility] Measurement of pH in vaginal fluid specimen using nitrazine yellow for detection of rupture of amniotic membrane [facility] Patient Education [facility] Work Phone: Removal intrauterine device iud REMOVE INTRAUTERINE DEVICE Procedures Routine Malpositioned intrauterine device (IUD), initial encounter Encounter for IUD removal Ordered: 05/13/2023 [facility] Work Phone: Comment on above: Ordered: 05/13/2023 ROUTINE FLU A/B + RSV ROUTINE FL U A/B + RSV Lab Routine Upper respiratory symptom Suspected COVID-19 virus infection Ordered: 10/05/2021 [facility] Work Phone: Comment on above: Ordered: 10/05/2021 ROUTINE FLU A/B + RSV ROUTINE FL U A/B + RSV Lab Routine Acute cough Fever, unspecified fever cause Sore throat URI with cough and congestion 01/18/2022 10:38 AM [facility] Work Phone: ROUTINE, GR OUP B STREPTOCOCCUS BY PCR ROUTINE, GROUP B STREPTOCOCCUS BY PCR Microbiology Routine 36 weeks gestation of ([facility]) 09/12/2024 10:54 AM EDT [facility] Work Phone: SARS-CoV-2 (COVID-19 ) RNA [Presence] in Respiratory specimen by MEG with probe detection 2019 CORONAVIRUS Microbiology Routine Upper respiratory symptom Suspected COVID-19 virus infection Ordered: 10/05/2021 [facility] Work Phone: Comment on above: Ordered: 10/05/2021 SARS-CoV-2 (COVID-19 ) RNA [Presence] in Respiratory specimen by MEG with probe detection 2019 CORONAVIRUS Microbiology Routine Acute cough Fever, unspecified fever cause Sore throat URI with cough and congestion 01/18/2022 10:38 AM [facility] Work Phone: SARS-CoV-2 (COVID-19 ) RNA [Presence] in Respiratory specimen by MEG with probe detection 2019 CORONAVIRUS Microbiology Routine URI, acute Wheezing Ordered: 05/27/2022 [facility] Work Phone: Comment on above: Ordered: 05/27/2022 UROGENITAL UREAPLASM A AND MYCOPLASMA SPECIES BY PCR, FOR GENITAL, RECTAL, URINE SAMPLES UROGENITAL UREAPLASMA AND MYCOPLASMA SPECIES BY PCR, FOR GENITAL, RECTAL, URINE SAMPLES Lab Routine Vaginal discharge Vaginal irritation 12/12/2023 4:17 PM EDT [facility] Immunizations Immunization Date Immunization Notes Care Provider Lana [facility] 12-14-2023 influenza, seasonal, injectable, preservative free Dr. Ruiz Vega DO Work Phone: [facility] 12-14-2023 influenza virus vacc ine, unspecified formulation Janelle Marin MD Work Phone: [facility] 10-05-2022 Human Papillomavirus 9-valent vaccine Sommer Hernandez PA-C Work Phone: [facility] 12-28-2021 Covid (Pfizer) Dr. Ruiz Vega DO Work Phone: [facility] 12-28-2021 COVID-19 original vaccine, age 12+ yr, monovalent (PFIZER-BIONTECH - MARTINEZ TOP) Nurse [facility] 12-03-2021 Covid (Pfizer) Dr. Ruiz Vega DO Work Phone: [facility] 12-03-2021 COVID-19 original vaccine, age 12+ yr, monovalent (PFIZER-BIONTECH - MARTINEZ TOP) Nurse [facility] 06-12-2021 meningococcal polysaccharide (groups A, C, Y and W-135) diphtheria toxoid conjugate vaccine (MCV4P) Que Chavez MD Work Phone: [facility] Work Phone: 06-12-2021 tetanus toxoid, redu monique diphtheria toxoid, and acellular pertussis vaccine, adsorbed Que Chavez MD Work Phone: [facility] Work Phone: 06-12-2021 Meningococcal, MCV4, unspecified conjugate formulation(groups A, C, Y and W-135) Que Chavez MD Work Phone: [facility] Work Phone: 04-27-2019 Human Papillomavirus 9-valent vaccine Que Chavez MD Work Phone: [facility] 04-27-2019 influenza, injectabl e, quadrivalent, preservative free Que Chavez MD Work Phone: [facility] 04-27-2019 influenza virus vacc ine, unspecified formulation Sommer Hernandez PA-C Work Phone: [facility] 01-07-2010 hepatitis A vaccine, pediatric/adolescent dosage, 2 dose schedule Que Chavez MD Work Phone: [facility] Work Phone: 01-07-2010 influenza, seasonal, injectable Que Chavez MD Work Phone: [facility] 11-03-2009 poliovirus vaccine, inactivated Que Chavez MD Work Phone: [facility] 10-27-2009 diphtheria, tetanus toxoids and acellular pertussis vaccine Que Chavez MD Work Phone: [facility] 10-27-2009 measles, mumps, rube lla, and varicella virus vaccine Que Chavez MD Work Phone: [facility] 10-27-2009 poliovirus vaccine, unspecified formulation Que Chavez MD Work Phone: [facility] Work Phone: 12-03-2008 Diphtheria, tetanus toxoids and acellular pertussis vaccine, and poliovirus vaccine, inactivated Que Chavez MD Work Phone: [facility] Work Phone: 12-03-2008 influenza, seasonal, injectable Que Chavez MD Work Phone: [facility] 12-03-2008 measles, mumps and rubella virus vaccine Que Chavez MD Work Phone: [facility] Work Phone: 10-03-2006 diphtheria, tetanus toxoids and acellular pertussis vaccine Que Chavez MD Work Phone: [facility] Work Phone: 10-03-2006 haemophilus influenz ae type b vaccine, HbOC conjugate Que Chavez MD Work Phone: [facility] 10-03-2006 measles, mumps, rube lla, and varicella virus vaccine Que Chavez MD Work Phone: [facility] Work Phone: 10-03-2006 pneumococcal conjuga te vaccine, 7 valent Que Chavez MD Work Phone: [facility] Work Phone: 06-17-2005 diphtheria, tetanus toxoids and acellular pertussis vaccine Que Chavez MD Work Phone: [facility] Work Phone: 06-17-2005 haemophilus influenz ae type b vaccine, HbOC conjugate Que Chavez MD Work Phone: [facility] 06-17-2005 pneumococcal conjuga te vaccine, 7 valent Que Chavez MD Work Phone: [facility] Work Phone: 06-17-2005 poliovirus vaccine, inactivated Que Chavez MD Work Phone: [facility] Work Phone: 05-06-2005 DTaP-hepatitis B and poliovirus vaccine Que Chavez MD Work Phone: [facility] Work Phone: 05-06-2005 haemophilus influenz ae type b vaccine, HbOC conjugate Que Chavez MD Work Phone: [facility] 05-06-2005 pneumococcal conjuga te vaccine, 7 valent Que Chavez MD Work Phone: [facility] Work Phone: 2004 DTaP-hepatitis B and poliovirus vaccine Que Chavez MD Work Phone: [facility] Work Phone: 2004 haemophilus influenz ae type b vaccine, HbOC conjugate Que Chavez MD Work Phone: [facility] 2004 pneumococcal conjuga te vaccine, 7 valent Que Chavez MD Work Phone: [facility] Work Phone: 2004 hepatitis B vaccine, pediatric or pediatric/adolescent dosage Que Chavez MD Work Phone: [facility] Payers Date Payer Category Payer Self-pay 2022 Unknown [id number] 2021 Medicaid [place] [employer] [employer] [id number] 2021-Present [phone] [facility] [address] [place] [address] Medicaid [id number] 2021 Medicaid [id number] 2016 Medicaid [id number] 2016 Unknown [id number] Unknown [id number] Unknown [id number] Unknown [id number] Unknown [id number] Unknown [id number] Unknown [id number] Unknown [id number] Unknown [id number] Social History Date Type Detail Facility Start: 01-13-2021 End: 09-04-2024 Tobacco smoking status NHIS Never smoked tobacco [facility] Work Phone: Start: 01-13-2021 End: 10-28-2021 Tobacco use and exposure Smokeless tobacco non-user [facility] Work Phone: Start: 06-12-2021 End: 10-05-2024 Alcohol intake Current non-drinker of alcohol (finding) [facility] Start: 12-29-2017 End: 10-28-2021 Tobacco Comment Second hand smoke exposure [facility] Start: 2004 Sex Assigned At Female [facility] Start: 06-02-2021 End: 01-18-2022 Exposure to SARS-CoV-2 (event) Not sure [facility] Work Phone: Start: 07-13-2021 History SDOH Physical Activity DPW 2 [facility] Start: 07-13-2021 History SDOH Financial 4 [facility] Start: 07-13-2021 History SDOH Food Worry 1 [facility] Start: 10-05-2022 End: 08-23-2023 History of Social function [facility] Start: 10-05-2022 End: 08-23-2023 Tobacco use panel [facility] How hard is it for y ou to pay for the very basics like food, housing, medical care, and heating Not very hard [facility] (I/We) worried wheth er (my/our) food would run out before (I/we) got money to buy more. Never true [facility] In the past 12 month s, has lack of transportation kept you from medical appointments or from getting medications? No [facility] In the past 12 month s, was there a time when you were not able to pay the mortgage or rent on time? No [facility] Start: 12-29-2017 Gender identity Identifies as female gender (finding) [facility] Start: 12-29-2017 Sexual orientation Heterosexual (finding) [facility] Are you now , , , , never or living with a partner? Never [facility] How often to you hav e a drink containing alcohol? Never [facility] Do you feel stress - tense, restless, nervous, or anxious, or unable to sleep at night because your mind is troubled all the time - these days [OSQ] Not at all [facility] Start: 02-16-2024 Education 12 [facility] Start: 01-17-2024 [facility] Goals Date Patient Goal Desired Activity /State Personal health goal Mental Status Date Assessment Result Facility 09-04-2024 Cognitive function Awake;Alert;A ppropriate;Fol lows Commands [facility] Work Phone: Clinical Notes 08-09-2016 to 10-05-2024 [...] discussed with the Patient or Patient's Authorized News Reel Cameraman. As applicable, any other physician, advance practice provider, medical student, or other health professional student that will be observing or involved in the sensitive examination for educational or training purposes was discussed with the Patient or Authorized News Reel Cameraman. The Patient or Authorized News Reel Cameraman has agreed to proceed with the sensitive [...] RTO in one week Delfina Watson APRN.CNM [facility] 10-05-2024 Note HNO ID: [id number] Author: DELFINA WATSON APRN.CNM Service: ? Author Type: Solar Installation Supervisor Type: Progress Notes Filed: 10/05/2024 16:56 Note Text: MEKA- [facility] 10-05-2024 History of Presen t illness Narrative MEKA- documented in this encounter [facility] 10-05-2024 Miscellaneous Notes Formattin g of this [...] discussed with the Patient or Patient's Authorized News Reel Cameraman. As applicable, any other physician, advance practice provider, medical student, or other health professional student that will be observing or involved in the sensitive examination for educational or training purposes was discussed with the Patient or Authorized News Reel Cameraman. The Patient or Authorized News Reel Cameraman has agreed to proceed with the sensitive [...] Delfina Watson APRN.CNM documented in this encounter [facility] 10-05-2024 Instructions Karen Dimas MA - 10/05/2024 4:19 PM EDT SEQUENTIAL SCREENINGS The [facility] offers sequential screenings for women who are [...] It will require an appointment with our instrument and control technician. This is not an ultrasound performed [...] the above symptoms, contact our office at [phone] and ask to speak with a nurse. After hours, you can call doctors registry at [phone] OR call [facility] at [phone] and ask to have the doctor bessemer converter blower paged. If you consider this an emergency, dial 9-1-1 or go to your nearest emergency department. NEED HELP? Are you dealing with a violent or abusive relationship? Are you a victim of rape or sexual assult? Call [facility] ([place]) 24 hour Crisis Hotline: 548.405.7447 or 474-826-8217. MANUAL Your Guide to a Healthy manual is now on-line. Visit [email or web address] [email or web address] to download your free copy documented in this encounter [facility] 09-25-2024 Progress note Formatting of t his note might be different from the original. KJ - S: Amirah denies LOF or vaginal bleeding. She reports some irregular ctxs. O: 38w0d, see flow sheet SENSITIVE EXAM: The sensitive examination was discussed with the Patient or Patient's Authorized News Reel Cameraman. As applicable, any other physician, advance practice provider, medical student, or other health professional student that will be observing or involved in the sensitive examination for educational or training purposes was discussed with the Patient or Authorized News Reel Cameraman. The Patient or Authorized News Reel Cameraman has agreed to proceed with the sensitive examination. (Sensitive examination includes inspection and/or palpation of the breasts, pelvis, prostate and anorectal regions). A/P: Assessment & Plan Supervision of high risk in third trimester (HCC) Orders: URINE OB DIP B/O 38 weeks gestation of (HCC) Orders: URINE OB DIP B/O Reviewed labor & FM precautions Janelle Marin MD [facility] 09-25-2024 Miscellaneous Notes Formattin g of this note might be different from the original. KJ - S: Amirah denies LOF or vaginal bleeding. She reports some irregular ctxs. O: 38w0d, see flow sheet SENSITIVE EXAM: The sensitive examination was discussed with the Patient or Patient's Authorized News Reel Cameraman. As applicable, any other physician, advance practice provider, medical student, or other health professional student that will be observing or involved in the sensitive examination for educational or training purposes was discussed with the Patient or Authorized News Reel Cameraman. The Patient or Authorized News Reel Cameraman has agreed to proceed with the sensitive examination. (Sensitive examination includes inspection and/or palpation of the breasts, pelvis, prostate and anorectal regions). A/P: Assessment & Plan Supervision of high risk in third trimester (HCC) Orders: URINE OB DIP B/O 38 weeks gestation of (HCC) Orders: URINE OB DIP B/O Reviewed labor & FM precautions Janelle Marin MD documented in this encounter [facility] 09-25-2024 Instructions Cassie Abad MA - 09/25/2024 2:00 PM EDT SEQUENTIAL SCREENINGS The [facility] offers sequential screenings for women who are [...] It will require an appointment with our instrument and control technician. This is not an ultrasound performed [...] the above symptoms, contact our office at [phone] and ask to speak with a nurse. After hours, you can call [employer] [facility] at [phone] OR call [facility] at [phone] and ask to have the doctor bessemer converter blower paged. If you consider this an emergency, dial 9--1 or go to your nearest emergency department. NEED HELP? Are you dealing with a violent or abusive relationship? Are you a victim of rape or sexual assult? Call [facility] ([place]) 24 hour Crisis Hotline: 699.227.4035 or 784-340-2893. MANUAL Your Guide to a Healthy manual is now on-line. Visit [email or web address] [email or web address] to download your free copy documented in this encounter [facility] 09-18-2024 Progress note Formatting of t his note might be different from the original. SW- Pt doing well. No ctx, vb, lof. Good FM PE: Gen- NAD, well appearing Abd- Soft, gravid, NT See flowsheet A/p 37 wk gestation - GBS positive - Reviewed labor precautions - Weekly visits Alo Thompson DO [facility] 09-18-2024 Miscellaneous Notes Formattin g of this note might be different from the original. SW- Pt doing well. No ctx, vb, lof. Good FM PE: Gen- NAD, well appearing Abd- Soft, gravid, NT See flowsheet A/p 37 wk gestation - GBS positive - Reviewed labor precautions - Weekly visits Alo Thompson DO documented in this encounter [facility] 09-18-2024 Instructions Karen Dimas MA - 09/18/2024 1:22 PM EDT SEQUENTIAL SCREENINGS The [facility] offers sequential screenings for women who are [...] It will require an appointment with our instrument and control technician. This is not an ultrasound performed [...] the above symptoms, contact our office at [phone] and ask to speak with a nurse. After hours, you can call doctors registry at [phone] OR call [facility] at [phone] and ask to have the doctor bessemer converter blower paged. If you consider this an emergency, dial 9-1-9 or go to your nearest emergency department. NEED HELP? Are you dealing with a violent or abusive relationship? Are you a victim of rape or sexual assult? Call [facility] [place] ([place]) 24 hour Crisis Hotline: 598.611.9011 or 001-549-4856. MANUAL Your Guide to a Healthy manual is now on-line. Visit [email or web address] [email or web address] to download your free copy documented in this encounter [facility] 09-12-2024 Note HNO ID: [id number] Author: CASTILLO MCKEON MD Service: ? Author Type: Physician Type: Progress Notes Filed: 09/12/2024 10:52 Note Text: RR- VB No. LOF No. CTXS some BH, crampy. no regular ctxs. Movement: present. Other c/o: heartburn not relived w/ tums Medication list reviewed. SENSITIVE EXAM: The sensitive examination was discussed with the Patient or Patient's Authorized News Reel Cameraman. As applicable, any other physician, advance practice provider, medical student, or other health professional student that will be observing or involved in the sensitive examination for educational or training purposes was discussed with the Patient or Authorized News Reel Cameraman. The Patient or Authorized News Reel Cameraman has agreed to proceed with the sensitive [...] Supervision of high risk in third trimester ([facility]) Orders: URINE OB DIP B/O Obesity affecting in third trimester, unspecified obesity type ([facility]) Orders: URINE OB DIP B/O Heartburn during in third trimester ([facility]) rx pepcid reviewed urine dip. Brief US confirms vtx f/u 1 week or prn Castillo Mckeon M.D. [facility] 09-12-2024 History of Presen t illness Narrative RR- VB No. LOF No. CTXS some BH, crampy. no regular ctxs. Movement: present. Other c/o: heartburn not relived w/ tums Medication list reviewed. SENSITIVE EXAM: The sensitive examination was discussed with the Patient or Patient's Authorized News Reel Cameraman. As applicable, any other physician, advance practice provider, medical student, or other health professional student that will be observing or involved in the sensitive examination for educational or training purposes was discussed with the Patient or Authorized News Reel Cameraman. The Patient or Authorized News Reel Cameraman has agreed to proceed with the sensitive [...] Supervision of high risk in third trimester ([facility]) Orders: URINE OB DIP B/O Obesity affecting in third trimester, unspecified obesity type ([facility]) Orders: URINE OB DIP B/O Heartburn during in third trimester ([facility]) rx pepcid reviewed urine dip. Brief US confirms vtx f/u 1 week or prn Castillo Mckeon M.D. documented in this encounter [facility] 09-12-2024 Instructions Leah Villaseñor MA - 09/12/2024 10:14 AM EDT SEQUENTIAL SCREENINGS The [facility] offers sequential screenings for women who are [...] It will require an appointment with our instrument and control technician. This is not an ultrasound performed [...] the above symptoms, contact our office at [phone] and ask to speak with a nurse. After hours, you can call doctors registry at [phone] OR call [facility] at [phone] and ask to have the doctor bessemer converter blower paged. If you consider this an emergency, dial 9-1-3 or go to your nearest emergency department. NEED HELP? Are you dealing with a violent or abusive relationship? Are you a victim of rape or sexual assult? Call [facility] ([place]) 24 hour Crisis Hotline: 141.199.4981 or 904-353-1014. MANUAL Your Guide to a Healthy manual is now on-line. Visit [email or web address] [email or web address] to download your free copy documented in this encounter [facility] 09-04-2024 Telephone encount er Note Noted. Thanks! Janelle Marin MD [facility] 09-04-2024 Miscellaneous Notes Formattin g of this note might be different from the original. Noted. Thanks! Janelle Marin MD Spoke with in ED. All work up normal. Patient D/Cd home. Delfina Watson APRN.CNM documented in this encounter [facility] 09-04-2024 Telephone encount er Note Spoke with in ED. All work up normal. Patient D/Cd home. Delfina Watson APRN.CNM [facility] 09-04-2024 Discharge summary [facility] 09-04-2024 Radiology Diagnostic study note [facility] Imaging Services [address] [place] [address] CTA Chest W/WO Contrast MR#: [id number] Acct: [id number] Name: AMIRAH WOODARD Rep #: [id number] : 2005 F 19 From: Gatito Moreno MD PCP: Dr. Ruiz Vega, DO Status: RE G ER Study:CTA Chest W/WO Contrast Date of Exam: 09/04/24 Exam# [id number] Ordering Dr: Raisa Richardson MD PROCEDURE: CTA [...] dissection No acute pulmonary process Reading Location: [id number] CC: Dr. Conrado Richardson MD; Dr. Ruiz Vega, DO ~ Sweat Box Attendant: Signed [facility] 09-04-2024 Telephone encounter Note Patient should be in ED at this time. No concern about urine dip. Janelle Marin MD [facility] 09-04-2024 Miscellaneous Notes Patient should be in ED at this time. No concern about urine dip. Janelle Marin MD documented in this encounter [facility] 09-04-2024 Progress note Formatting of t his [...] Orders: URINE OB DIP B/O Patient to [facility] for eval of tachycardia and Shortness of Breath. No evidence labor. Janelle Marin MD [facility] 09-04-2024 Miscellaneous Notes KJ - S: Patient seen urgently for heart racing and Shortness of Breath that started this morning. Denies fevers/chils. Amirah denies LOF, contractions or vaginal bleeding. She reports stable cramps. O: 35w0d, see flow sheet SENSITIVE EXAM: Sensitive exam not performed. A/P: Assessment & Plan Supervision of high risk in third trimester ([facility]) Orders: URINE OB DIP B/O Obesity affecting in third trimester, unspecified obesity type ([facility]) Orders: URINE OB DIP B/O 35 weeks gestation of ([facility]) Orders: URINE OB DIP B/O Patient to [facility] for eval of tachycardia and Shortness of Breath. No evidence labor. Janelle Marin MD documented in this encounter [facility] 09-04-2024 Instructions Cassie Abad MA - 09/04/2024 9:30 AM EDT SEQUENTIAL SCREENINGS The [facility] offers sequential screenings for women who are [...] It will require an appointment with our instrument and control technician. This is not an ultrasound performed [...] the above symptoms, contact our office at [phone] and ask to speak with a nurse. After hours, you can call doctors registry at [phone] OR call [facility] at [phone] and ask to have the doctor bessemer converter blower paged. If you consider this an emergency, dial 9-1-9 or go to your nearest emergency department. NEED HELP? Are you dealing with a violent or abusive relationship? Are you a victim of rape or sexual assult? Call [facility] ([place]) 24 hour Crisis Hotline: 940.875.5815 or 263-309-8910. MANUAL Your Guide to a Healthy manual is now on-line. Visit [email or web address] See to download your free copy documented in this encounter [facility] 08-30-2024 Progress note Formatting of t his note might be different from the original. S: Amirah Woodard is a 19 year old female who presents at 34 weeks gestation for a routine visit. Positive movements. Difficulty working full shifts at [employer] due to pelvic pain/ pressure. Requesting to [...] GERRI with GBS La Del Castillo APRN.CNM [facility] Work Phone: 08-30-2024 Miscellaneous Notes S: Amirah Woodard is a 19 year old female who presents at 34 weeks gestation for a routine visit. Positive movements. Difficulty working full shifts at [employer] due to pelvic pain/ pressure. Requesting to [...] Del Castillo APRN.CNM documented in this encounter [facility] 08-30-2024 Instructions La Del Castillo APRN.CNM - 08/30/2024 2:46 PM EDT Images from the original note were not included. SEQUENTIAL SCREENINGS The [facility] offers sequential screenings for women who are [...] It will require an appointment with our instrument and control technician. This is not an ultrasound performed [...] easy pie crust in the food service associate. Add soaked dates to homemade nut butter for a sweet treat. Add dates to casandra homemade salad dressing. Add dates during easily with these yummy (paleo friendly) bars made from dates. What Is Red Raspberry [place] Tea? Red raspberry leaf tea comes from [...] , and too. How Much Red Raspberry [place] Tea to Drink? With your doctor or medical screener s approval, start with 1 cup of [...] because of uterine cramping. Is Red Raspberry [place] Tea the Same as Raspberry [place] Tea? How About Plain Old Raspberry Tea? Sometimes. You really need to look at the ingredients to be sure. Note that there is no difference between red raspberry leaf and raspberry leaf. BitPass or RageTank Raspberry [place] Tea are two good brands. The red [...] of RRLT outlined in this article. [employer] www.Playsino I named this 'circuit' after my friend [...] sideways, 2 at a time, (have a food services manager downstairs of you!), take a walk outside [...] the pelvis. Katey Harris: Circuit Creator - www.Construction Software Technologiesundbirthcollective.Kambit Nicolette Heaton, LEONEL, BDT (MARIANN), LCCE, FACCE: Supporting Content - www.Morega SystemsjazValdermdayana.Kambit Lindsey Griffith: Photography - www.[employer] Meghna Green CD/CDT (NICHOLAS): Print and Sr Account Executive - www.[employer] Masterminds [employer] www.Playsino SIGNS AND SYMPTOMS OF LABOR 1. Contractions every 10 minutes or more often 2. Clear, pink, or brownish fluid (water) leaking from vagina 3. Feeling that baby is pushing down, pressure 4. Low, dull backache 5. Cramps that feel like a period 6. Cramps with or without diarrhea If you notice any of the above symptoms, contact our office at [phone] and ask to speak with a nurse. After hours, you can call doctors registry at [phone] OR call [facility] at [phone] and ask to have the doctor bessemer converter blower paged. If you consider this an emergency, dial 9-1-9 or go to your nearest emergency department. NEED HELP? Are you dealing with a violent or abusive relationship? Are you a victim of rape or sexual assult? Call [facility] ([place]) 24 hour Crisis Hotline: 755.427.4802 or 855-967-3328. MANUAL Your Guide to a Healthy manual is now on-line. Visit [email or web address]/HealthyPregnan See to download your free copy documented in this encounter [facility] 08-16-2024 Progress note Formatting of t his [...] Supervision of high risk in third trimester ([facility]) - ICD9: V23.9, ICD10: O09.93 (primary diagnosis) - Continue PNV and LDA 2. 32 weeks gestation of ([facility]) - ICD9: V22.2, ICD10: Z3A.32 - Discussed childcare provider, support band, gentle stretching for musculoskeletal pain - Discussed signs of Florin Tan - increase hydration 3. Obesity affecting in third trimester, unspecified obesity type ([facility]) - ICD9: 649.13, ICD10: O99.213 - Pre BMI 31 PTL precautions and kick counts reviewed. RTO in 2 weeks or sooner as needed. Lindsey Moreno APRN.PCB DESIGNER [facility] 08-16-2024 Miscellaneous Notes EH - S: Amirah [...] Supervision of high risk in third trimester ([facility]) - ICD9: V23.9, ICD10: O09.93 (primary diagnosis) - Continue PNV and LDA 2. 32 weeks gestation of ([facility]) - ICD9: V22.2, ICD10: Z3A.32 - Discussed childcare provider, support band, gentle stretching for musculoskeletal pain - Discussed signs of Florin Tan - increase hydration 3. Obesity affecting in third trimester, unspecified obesity type (HCC) - ICD9: 649.13, ICD10: O99.213 - Pre BMI 31 PTL precautions and kick counts reviewed. RTO in 2 weeks or sooner as needed. Lindsey Moreno APRN.PCB DESIGNER documented in this encounter [facility] 08-16-2024 Instructions Yumiko Meza MA - 08/16/2024 2:22 PM EDT SEQUENTIAL SCREENINGS The [facility] offers sequential screenings for women who are [...] It will require an appointment with our instrument and control technician. This is not an ultrasound performed [...] the above symptoms, contact our office at [phone] and ask to speak with a nurse. After hours, you can call doctors registry at [phone] OR call [facility] at [phone] and ask to have the doctor bessemer converter blower paged. If you consider this an emergency, dial or go to your nearest emergency department. NEED HELP? Are you dealing with a violent or abusive relationship? Are you a victim of rape or sexual assult? Call [facility] ([place]) 24 hour Crisis Hotline: 124.385.6860 or 820-697-5935. MANUAL Your Guide to a Healthy manual is now on-line. Visit [email or web address] See to download your free copy documented in this encounter [facility] 08-13-2024 Note HNO ID: [id number] Author: RUIZ VEGA, DO Service: ? Author [...] Rhonda. - Planning a vaginal delivery at [place]. - Taking vitamins; denies nausea or emesis. 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 Recording using [employer] software for draft documentation of the visit was discussed with the patient/authorized desk representative; all questions welcomed and answered. Patient/authorized desk representative agreed to proceed [facility] 08-13-2024 History of Present illness Narrative Pennie Woodard is a 19-year-old female, 1 para 0, presenting for an initial visit and evaluation of -related symptoms. : - Currently 31-32 weeks gestation with a male fetus; ANA: October 09. - First . - care managed by Dr. Mckeon and team; next appointment scheduled with Lindsey and La. - Planning a vaginal delivery at [place]. - Taking vitamins; denies nausea or emesis. 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 Recording using [employer] software for draft documentation of the visit was discussed with the patient/authorized desk representative; all questions welcomed and answered. Patient/authorized desk representative agreed to proceed documented in this encounter [facility] 08-08-2024 Telephone encounter Note Order signed and faxed. Caroline Mora RN [facility] 08-08-2024 Miscellaneous Notes Order signed and faxed. Caroline Mora RN Breast pump request received from [employer]. Order to provider to sign. Caroline Mora RN documented in this encounter [facility] 08-06-2024 Telephone encounter Note Breast pump request received from [employer]. Order to provider to sign. Caroline Mora RN [facility] 08-03-2024 Telephone encounter Note 3rd risk assessment form submitted 08/03/24 Tio Hutchison RN [facility] 08-03-2024 Miscellaneous Notes 3rd risk assessment form submitted 08/03/24 Tio Hutchison RN documented in this encounter [facility] 08-01-2024 Progress note Formatting of t his [...] unspecified seasonality, unspecified trigger Castillo Mckeon M.D. [facility] 08-01-2024 Miscellaneous Notes RR- VB No. LOF [...] Supervision of high risk in third trimester ([facility]) Orders: COMPLETE BLOOD COUNT AND DIFFERENTIAL; [...] Castillo Mckeon M.D. documented in this encounter [facility] 07-20-2024 Note HNO ID: [id number] Author: LINDSEY MORENO APRN.PCB DESIGNER Service: ? Author Type: Nurse Practitioner Type: [...] Supervision of high risk in third trimester ([facility]) - ICD9: V23.9, ICD10: O09.93 (primary diagnosis) - Continue PNV and LDA 2. 28 weeks gestation of ([facility]) - ICD9: V22.2, ICD10: Z3A.28 - 1 hour GCT, CBC, and RPR today - Rh positive - Declines TDAP - LARC form reviewed and signed. Declines. - Depression screen negative - Opioid screen negative - plan form discussed and given to Amirah - Reviewed how to pre register through [facility] - Planning Paragard during period 3. Obesity affecting in third trimester, unspecified obesity type ([facility]) - ICD9: 649.13, ICD10: O99.213 - Pre BMI 32 4. Vaginal discharge during in third trimester ([facility]) - ICD9: 646.83, 623.5, ICD10: O26.893, N89.8 - BACTERIAL VAGINOSIS NAAT - FRANCO/TRICHOMONAS NAAT PTL precautions and kick counts reviewed. RTO in 2 weeks or sooner as needed. Lindsey Moreno APRN.PCB DESIGNER [facility] 07-20-2024 History of Present illness Narrative EH [...] Supervision of high risk in third trimester ([facility]) - ICD9: V23.9, ICD10: O09.93 (primary [...] - Reviewed how to pre register through [facility] - Planning Paragard during period 3. Obesity affecting in third trimester, unspecified obesity type ([facility]) - ICD9: 649.13, ICD10: O99.213 - Pre BMI 32 4. Vaginal discharge during in third trimester ([facility]) - ICD9: 646.83, 623.5, ICD10: O26.893, N89.8 - BACTERIAL VAGINOSIS NAAT - FRANCO/TRICHOMONAS NAAT PTL precautions and kick counts reviewed. RTO in 2 weeks or sooner as needed. Lindsey Moreno APRN.PCB DESIGNER documented in this encounter [facility] 07-20-2024 Instructions Yumiko Meza MA - 07/20/2024 8:16 AM EDT SEQUENTIAL SCREENINGS The [facility] offers sequential screenings for women who are [...] It will require an appointment with our instrument and control technician. This is not an ultrasound performed [...] the above symptoms, contact our office at [phone] and ask to speak with a nurse. After hours, you can call doctors registry at [phone] OR call [facility] at [phone] and ask to have the doctor bessemer converter blower paged. If you consider this an emergency, dial 9-1-5 or go to your nearest emergency department. NEED HELP? Are you dealing with a violent or abusive relationship? Are you a victim of rape or sexual assult? Call [facility] ([place]) 24 hour Crisis Hotline: 689.440.3627 or 719-662-9368. MANUAL Your Guide to a Healthy manual is now on-line. Visit [email or web address] See to download your free copy documented in this encounter [facility] 07-19-2024 Telephone encounter Note noted. thanks. Castillo Mckeon MD [facility] Work Phone: 07-19-2024 Miscellaneous Notes noted. thanks. [...] Kia Sheldon, JIA documented in this encounter [facility] 07-19-2024 Telephone encounter Note 28w2d Patient called [...] H&P faxed to L&D. Kia Sheldon, RN [facility] 07-09-2024 Telephone encounter Note agree [facility] Work Phone: 07-09-2024 Miscellaneous Notes agree documented in this encounter [facility] 06-21-2024 Progress note Formatting of t his [...] before next visit La Del Castillo APRN.CNM [facility] 06-21-2024 Miscellaneous Notes S: Amirah Woodard is [...] Del Castillo APRN.CNM documented in this encounter [facility] 06-21-2024 Instructions Shree Santos MA - 06/21/2024 1:02 PM EDT SEQUENTIAL SCREENINGS The [facility] offers sequential screenings for women who are [...] It will require an appointment with our instrument and control technician. This is not an ultrasound performed [...] the above symptoms, contact our office at [phone] and ask to speak with a nurse. After hours, you can call [employer] registry at [phone] OR call [facility] at [phone] and ask to have the doctor bessemer converter blower paged. If you consider this an emergency, dial 11-05-7 or go to your nearest emergency department. NEED HELP? Are you dealing with a violent or abusive relationship? Are you a victim of rape or sexual assult? Call [facility] ([place]) 24 hour Crisis Hotline: 167.847.8592 or 957-009-4643. MANUAL Your Guide to a Healthy manual is now on-line. Visit [email or web address] See to download your free copy documented in this encounter [facility] 06-19-2024 Progress note Formatting of t his [...] Future ANEMIA REFLEX PANEL; Future Obesity in ([facility]) Screening for diabetes mellitus Orders: GESTATIONAL GLUCOSE SCREEN, 1-HOUR, 50 GRAM, NON-FASTING; Future Advised on musculoskeletal pain in . Discussed if any CP/SOB should call immediately. Janelle Marin MD [facility] 06-19-2024 Miscellaneous Notes KJ - S: Amirah [...] Future ANEMIA REFLEX PANEL; Future Obesity in ([facility]) Screening for diabetes mellitus Orders: GESTATIONAL GLUCOSE SCREEN, 1-HOUR, 50 GRAM, NON-FASTING; Future Advised on musculoskeletal pain in . Discussed if any CP/SOB should call immediately. Janelle Marin MD documented in this encounter [facility] 06-19-2024 Instructions Yumiko Meza MA - 06/19/2024 2:34 PM EDT SEQUENTIAL SCREENINGS The [facility] offers sequential screenings for women who are [...] It will require an appointment with our instrument and control technician. This is not an ultrasound performed [...] the above symptoms, contact our office at [phone] and ask to speak with a nurse. After hours, you can call doctors registry at [phone] OR call [facility] at [phone] and ask to have the doctor bessemer converter blower paged. If you consider this an emergency, dial 9-- or go to your nearest emergency department. NEED HELP? Are you dealing with a violent or abusive relationship? Are you a victim of rape or sexual assult? Call [facility] ([place]) 24 hour Crisis Hotline: 901.122.9507 or 889-622-5425. MANUAL Your Guide to a Healthy manual is now on-line. Visit [email or web address] to download your free copy documented in this encounter [facility] 06-06-2024 Progress note Formatting of t his [...] scheduled OB visit La Del Castillo APRN.CNM [facility] 06-06-2024 Miscellaneous Notes S: Amirah Woodard is [...] Del Castillo APRN.CNM documented in this encounter [facility] 06-06-2024 Shree Beltran MA - 06/06/2024 1:06 PM EDT SEQUENTIAL SCREENINGS The [facility] offers sequential screenings for women who are [...] It will require an appointment with our instrument and control technician. This is not an ultrasound performed [...] the above symptoms, contact our office at [phone] and ask to speak with a nurse. After hours, you can call doctors registry at [phone] OR call [facility] at [phone] and ask to have the doctor bessemer converter blower paged. If you consider this an emergency, dial 5-3-9 or go to your nearest emergency department. NEED HELP? Are you dealing with a violent or abusive relationship? Are you a victim of rape or sexual assult? Call [facility] ([place]) 24 hour Crisis Hotline: 758.115.2989 or 296-454-4310. MANUAL Your Guide to a Healthy manual is now on-line. Visit [email or web address] See to download your free copy documented in this encounter [facility] 06-06-2024 Telephone encounter Note 22w1d Patient called [...] today and patient accepted. Vivian Adams RN [facility] 06-06-2024 Miscellaneous Notes 22w1d Patient called in [...] Vivian Adams RN documented in this encounter [facility] 05-28-2024 Telephone encounter Note 2nd risk assessment form submitted 05/28/24 Tio Hutchison RN [facility] 05-28-2024 Miscellaneous Notes 2nd risk assessment form submitted 05/28/24 Tio Hutchison RN documented in this encounter [facility] 05-25-2024 Progress note Formatting of t his [...] ICD9: V22.2, ICD10: Z3A.20 Kia Lucero MD [facility] 05-25-2024 Miscellaneous Notes S: Amirah Woodard is [...] Kia Lucero MD documented in this encounter [facility] 05-25-2024 Instructions Cassie Abad MA - 05/25/2024 2:03 PM EDT SEQUENTIAL SCREENINGS The [facility] offers sequential screenings for women who are [...] It will require an appointment with our instrument and control technician. This is not an ultrasound performed [...] the above symptoms, contact our office at [phone] and ask to speak with a nurse. After hours, you can call doctors registry at [phone] OR call [facility] at [phone] and ask to have the doctor bessemer converter blower paged. If you consider this an emergency, dial 9-1-8 or go to your nearest emergency department. NEED HELP? Are you dealing with a violent or abusive relationship? Are you a victim of rape or sexual assult? Call [facility] ([place]) 24 hour Crisis Hotline: 487.703.4281 or 164-583-0238. MANUAL Your Guide to a Healthy manual is now on-line. Visit [email or web address] See to download your free copy documented in this encounter [facility] 05-01-2024 Telephone encounter Note Left message for patient to call office. Kia Sheldon RN [facility] 05-01-2024 Miscellaneous Notes Left message for patient to call office. Kia Sheldon, RN Noted & agree with recommendations. If patient has increased LOF tonight I recommend going to [facility]. Janelle Marin MD 17w0d Calling concerned [...] Vivian Adams RN documented in this encounter [facility] 05-01-2024 Telephone encounter Note Noted & agree with recommendations. If patient has increased LOF tonight I recommend going to [facility]. Janelle Marin MD [facility] Work Phone: 05-01-2024 Telephone encounter Note 17w0d [...] with it. Please advise. Vivian Adams RN [facility] 04-27-2024 Progress note Formatting of t his [...] RTO in 4 weeks Delfina Watson APRN.CNM [facility] 04-27-2024 Miscellaneous Notes MEKA-S: Amirah Woodard is [...] Delfina Watson APRN.CNM documented in this encounter [facility] 04-27-2024 Instructions Shree Santos MA - 04/27/2024 1:04 PM EST SEQUENTIAL SCREENINGS The [facility] offers sequential screenings for women who are [...] It will require an appointment with our instrument and control technician. This is not an ultrasound performed [...] the above symptoms, contact our office at [phone] and ask to speak with a nurse. After hours, you can call doctors registry at [phone] OR call [facility] at [phone] and ask to have the doctor bessemer converter blower paged. If you consider this an emergency, dial 9-1-1 or go to your nearest emergency department. NEED HELP? Are you dealing with a violent or abusive relationship? Are you a victim of rape or sexual assult? Call [facility] [place] ([facility] 24 hour Crisis Hotline: 521.532.3411 or 393-821-9727. MANUAL Your Guide to a Healthy manual is now on-line. Visit [email or web address] See to download your free copy documented in this encounter [facility] 04-13-2024 Telephone encounter Note Patient notified and voiced understanding. Caroline Mora RN [facility] 04-13-2024 Miscellaneous Notes Patient notified and voiced [...] Marisela Lopez RN documented in this encounter [facility] 04-13-2024 Telephone encounter Note Agree with plan of care. May try wearing compression stockings if on feet as well. This can help with blood flow back to to heart/head. La Del Castillo APRN.CNM [facility] Work Phone: 04-13-2024 Telephone encounter Note 14w3d [...] until 04/27/24. Please advise. Marisela Lopez, RN [facility] 04-10-2024 Telephone encounter Note Refill provided. Has adult medicine appointment in August. Thanks. Josiane Goodwin APRN.PCB DESIGNER [facility] 04-10-2024 Miscellaneous Notes Refill provided. Has adult medicine appointment in August. Thanks. Josiane Goodwin APRN.PCB DESIGNER Last [facility]: 10/31/2023 Verify RX Benefits Completed [...] Eloisa Suarez LPN documented in this encounter [facility] 04-10-2024 Telephone encounter Note Last [facility]: 10/31/2023 Verify RX Benefits Completed Last medication [...] season) due on 11/06/2023 Eloisa Suarez LPN [facility] 04-03-2024 Progress note Formatting of t his [...] RTO in 4 weeks Delfina Watson APRN.CNM [facility] 04-03-2024 Miscellaneous Notes MEKAUrbanoS: Amirah Woodard is [...] Delfina Watson APRN.CNM documented in this encounter [facility] 04-03-2024 Instructions Leah Villaseñor MA - 04/03/2024 3:53 PM EST SEQUENTIAL SCREENINGS The [facility] offers sequential screenings for women who are [...] It will require an appointment with our instrument and control technician. This is not an ultrasound performed [...] the above symptoms, contact our office at [phone] and ask to speak with a nurse. After hours, you can call doctors registry at [phone] OR call [facility] at [phone] and ask to have the doctor bessemer converter blower paged. If you consider this an emergency, dial 91-6 or go to your nearest emergency department. NEED HELP? Are you dealing with a violent or abusive relationship? Are you a victim of rape or sexual assult? Call [facility] [place] ([place]) 24 hour Crisis Hotline: 571.297.2435 or 981-709-5384. MANUAL Your Guide to a Healthy manual is now on-line. Visit [email or web address] See to download your free copy documented in this encounter [facility] 03-28-2024 Progress note Formatting of t his [...] culture collected and submitted. RTO 04/03 routine [facility] Clinical yeast infection - tx monistat. Duncan Munguia MD [facility] Work Phone: 03-28-2024 Miscellaneous Notes Primigravida at 12 weeks c/o vaginal itching and burning subsequent to a course of amoxicillin for a sinus infection. Sx began 5 days after beginning tx. Denies vaginal bleeding and slightly increased discharge Pelvic exam. 12 week uterus. moderate clumpy white discharge. Yeast culture collected and submitted. RTO 04/03 routine [facility] Clinical yeast infection - tx monistat. Duncan Munguia MD documented in this encounter [facility] 03-28-2024 Instructions Yumiko Meza MA - 03/28/2024 9:08 AM EST SEQUENTIAL SCREENINGS The [facility] offers sequential screenings for women who are [...] It will require an appointment with our instrument and control technician. This is not an ultrasound performed [...] the above symptoms, contact our office at [phone] and ask to speak with a nurse. After hours, you can call doctors registry at [phone] OR call [facility] at [phone] and ask to have the doctor bessemer converter blower paged. If you consider this an emergency, dial -3 or go to your nearest emergency department. NEED HELP? Are you dealing with a violent or abusive relationship? Are you a victim of rape or sexual assult? Call [facility] ([facility] 24 hour Crisis Hotline: 566.412.4664 or 817-291-9686. MANUAL Your Guide to a Healthy manual is now on-line. Visit [email or web address] to download your free copy documented in this encounter [facility] 03-22-2024 Telephone encounter Note Patient notified and voiced understanding. Caroline Mora RN [facility] 03-22-2024 Miscellaneous Notes Patient notified and voiced understanding. Caroline Mora RN Yes. La Del Castillo APRN.CNM Patient 11w2d calling with questions in regards to medication she was prescribed for a sinus infection. Patient was prescribed Amoxicillin 1000 mg BID. Patient wanting to know if that dosage is ok with . Craoline Mora RN documented in this encounter [facility] 03-22-2024 Telephone encounter Note Yes. La Del Castillo APRN.CNM [facility] Work Phone: 03-22-2024 Telephone encounter Note Patient 11w2d calling with questions in regards to medication she was prescribed for a sinus infection. Patient was prescribed Amoxicillin 1000 mg BID. Patient wanting to know if that dosage is ok with . Caroline Mora RN [facility] 03-19-2024 Note HNO ID: [id number] Author: JOSIANE GOODWIN APRN.PCB DESIGNER Service: ? Author Type: Nurse Practitioner Type: [...] provider while in office today. Josiane Goodwin APRN.[facility] 03-19-2024 History of Present illness Narrative PEDIATRIC [...] Josiane Goodwin APRN.JOSELYN documented in this encounter [facility] 03-13-2024 Note HNO ID: [id number] Author: ROBERTO POWERS PA-C Service: ? Author Type: Physician Sales Supervisor Type: Progress Notes Filed: 03/13/2024 12:33 Note [...] the patient was advised to see her BIOASSAYIST for further evaluation and management. CLINICAL IMPRESSION: Sore Throat ASSESSMENT/PLAN: 1. Sore throat - ICD9: 462, ICD10: J02.9 - STREP A MOLECULAR (POC) Roberto Powers PA-C [facility] 03-13-2024 History of Present illness Narrative This note was created using [employer]. Subjective Amirah Woodard is a 18 year [...] the patient was advised to see her BIOASSAYIST for further evaluation and management. CLINICAL IMPRESSION: Sore Throat ASSESSMENT/PLAN: 1. Sore throat - ICD9: 462, ICD10: J02.9 - STREP A MOLECULAR (POC) Roberto Powers PA-C documented in this encounter [facility] 03-10-2024 Telephone encounter Note Reason for Call: 9 weeks , dizziness and felt like she would pass out, vision dark vomiting Denies fever Outcome: Patient warm conferenced to main campus seed cleaner operator to assist patient in connecting patient to bessemer converter blower provider for CLINICAL BUSINESS MANAGER Nilda Stiles FLAKER TENDER. [facility] 03-10-2024 Miscellaneous Notes Reason for Call: 9 weeks , dizziness and felt like she would pass out, vision dark vomiting Denies fever Outcome: Patient warm conferenced to main campus seed cleaner operator to assist patient in connecting patient to bessemer converter blower provider for CLINICAL BUSINESS MANAGER Nilda Martínezf FLAKER TENDER. documented in this encounter [facility] 02-23-2024 Telephone encounter Note 1st risk assessment form submitted 02/23/24. Pauline Au RN [facility] 02-23-2024 Miscellaneous Notes 1st risk assessment form submitted 02/23/24. Pauline Au RN documented in this encounter [facility] 02-16-2024 Note HNO ID: [id number] Author: NILDA STILES APRN.JOSELYN Service: ? Author Type: Nurse Practitioner Type: Progress Notes Filed: 02/21/2024 09:02 Note Text: Patient declined test cell technician. INITIAL OB ASSESSMENT HPI: Amirah is a [...] (FLONASE) 50 mcg/actuation nasal spray Use 1 Chamberlain in each nostril once daily. (Patient not [...] Impaired Vision, Ringing (more content not included)... [facility] 02-16-2024 History of Present illness Narrative Patient declined test cell technician. INITIAL OB ASSESSMENT HPI: Amirah is a [...] (FLONASE) 50 mcg/actuation nasal spray Use 1 Chamberlain in each nostril once daily. (Patient not [...] discussed with the Patient or Patient's Authorized News Reel Cameraman. As applicable, any other physician, advance practice provider, medical student, or other health professional student that will be observing or involved in the sensitive examination for educational or training purposes was discussed with the Patient or Authorized News Reel Cameraman. The Patient or Authorized News Reel Cameraman has agreed to proceed with the sensitive [...] Your guide to a health and the Finishing Machine Operator. Reviewed midwifery and byproducts operator services that are available. 2) Screening: Hemoglobin [...] Nilda Stiles APRN.CNP documented in this encounter [facility] 02-16-2024 Instructions Kelly Fields LPN - 02/16/2024 3:31 PM EST Please select the following link to access the [facility] Your Guide to a Healthy . [email or web address] Please select the following link to access the [facility] Your Guide to a Healthy . [email or web address] documented in this encounter [facility] 01-30-2024 Note HNO ID: [id number] Author: NILDA STILES APRN.PCB DESIGNER Service: ? Author Type: Nurse Practitioner Type: Progress Notes Filed: 01/30/2024 14:33 Note Text: Amirah Woodard is a 18 year old female who presents for problem visit testing, reported +hpt 01/27/2024, 01/03/2024. HPI: positive test- some cramping no bleeding LMP 01/03/24 OB History T0 L0 SAB0 IAB0 Ectopic0 Multiple0 Live Births0 Roll Cleaner History LMP: 12/09/2023 (Exact Date), Having periods Age at Menarche: Age at First : Age at Menopause: Roll Cleaner History Comments: Sexual Activity: Yes; Male Contraception: [...] (FLONASE) 50 mcg/actuation nasal spray Use 1 Chamberlain in each nostril once daily. loratadine (CLARITIN) [...] NOB appt Review miscarriage precautions Nilda Stiles, FLAKER TENDER.PCB DESIGNER Medical Decision Making: Problems: Low: Acute, uncomplicated illness or injury Data: Unique test(s) ordered: 1 Risk: Low: Low risk from testing/treatment Medical Decision Making Level: 3 - Low [facility] 01-30-2024 History of Present illness Narrative Amirah Woodard is a 18 year old female who presents for problem visit testing, reported +hpt 01/27/2024, 01/03/2024. HPI: positive test- some cramping no bleeding LMP 01/03/24 OB History T0 L0 SAB0 IAB0 Ectopic0 Multiple0 Live Births0 Roll Cleaner History LMP: 12/09/2023 (Exact Date), Having periods Age at Menarche: Age at First : Age at Menopause: Roll Cleaner History Comments: Sexual Activity: Yes; Male Contraception: [...] (FLONASE) 50 mcg/actuation nasal spray Use 1 Chamberlain in each nostril once daily. loratadine (CLARITIN) [...] 3 - Low documented in this encounter [facility] 12-15-2023 Telephone encounter Note Patient notified. Vivian [...] NILDA STILES Pharmacy Information Pharmacy Address Telephone [facility] [address] [place] [address] [facility] 12-15-2023 Miscellaneous Notes Patient notified. Vivian Adams [...] NILDA STILES Pharmacy Information Pharmacy Address Telephone [facility] [address] [place] [address] Mycoplasma positive. Moxifloxacin x 7 days, then Doxy to follow x 7 days. Partner should be treated. Nilda Stiles APRN.CNP documented in this encounter [facility] 12-15-2023 Telephone encounter Note Mycoplasma positive. Moxifloxacin x 7 days, then Doxy to follow x 7 days. Partner should be treated. Nilda Stiles APRN.JOSELYN [facility] 12-12-2023 Note HNO ID: [id number] Author: NILDA STILES APRN.CNP Service: ? Author Type: Nurse Practitioner Type: Progress Notes Filed: 12/12/2023 16:43 Note Text: Patient declined test cell technician. Amirah Woodard is a 18 year old [...] L0 SAB0 IAB0 Ectopic0 Multiple0 Live Births0 Roll Cleaner History LMP: 10/08/2023 (Exact Date), Having periods Age at Menarche: Age at First : Age at Menopause: Roll Cleaner History Comments: Sexual Activity: Yes; Male Contraception: [...] (FLONASE) 50 mcg/actuation nasal spray Use 1 Chamberlain in each nostril once daily. loratadine (CLARITIN) [...] discussed with the Patient or Patient's Authorized News Reel Cameraman. As applicable, any other physician, advance practice provider, medical student, or other health professional student that will be observing or involved in the sensitive examination for educational or training purposes was discussed with the Patient or Authorized News Reel Cameraman. The Patient or Authorized News Reel Cameraman has agreed to proceed with the sensitive examination. (Sensitive examination includes inspection and/or palpation of the breasts, pelvis, prostate and anorectal regions). EXAM: LMP 10/08/2023 GENERAL: pleasant, female in no apparent distress HEENT: Normocephalic, atraumatic, mucus membranes moist, and no lesions CHEST: Normal inspiratory effort PELVIC: external genitalia normal, normal Bartholin's glands, urethra, Firestone's glands, no vulvar lesions, no cervical lesions, [...] notify patient of test results. Nilda Stiles APRN.PCB DESIGNER Medical Decision Making: Problems: Moderate: New problem with uncertain prognosis Data: Unique test(s) ordered: 3+ Risk: Low: Low risk from testing/treatment Medical Decision Making Level: 4 - Moderate [facility] 12-12-2023 History of Present illness Narrative Patient declined test cell technician. Amirah Woodard is a 18 year old [...] L0 SAB0 IAB0 Ectopic0 Multiple0 Live Births0 Roll Cleaner History LMP: 10/08/2023 (Exact Date), Having periods Age at Menarche: Age at First : Age at Menopause: Roll Cleaner History Comments: Sexual Activity: Yes; Male Contraception: [...] (FLONASE) 50 mcg/actuation nasal spray Use 1 Chamberlain in each nostril once daily. loratadine (CLARITIN) [...] discussed with the Patient or Patient's Authorized News Reel Cameraman. As applicable, any other physician, advance practice provider, medical student, or other health professional student that will be observing or involved in the sensitive examination for educational or training purposes was discussed with the Patient or Authorized News Reel Cameraman. The Patient or Authorized News Reel Cameraman has agreed to proceed with the sensitive examination. (Sensitive examination includes inspection and/or palpation of the breasts, pelvis, prostate and anorectal regions). EXAM: LMP 10/08/2023 GENERAL: pleasant, female in no apparent distress HEENT: Normocephalic, atraumatic, mucus membranes moist, and no lesions CHEST: Normal inspiratory effort PELVIC: external genitalia normal, normal Bartholin's glands, urethra, Firestone's glands, no vulvar lesions, no cervical lesions, [...] 4 - Moderate documented in this encounter [facility] 10-31-2023 Sommer Panchal PA-C - 10/31/2023 11:23 [...] drinks Go! Be healthy, inside and out! [email or web address] Adolescent to Adult Transition Program [facility] cares about helping you and each of our adolescents and young adults make a smooth transition to adult care. If your current doctor is a doctor of nurse anesthesia, we will work with you to decide [...] your current doctor is in family medicine, [facility] will prepare you and your family for [...] details. If joining our practice from outside [facility], we will help you request your medical [...] the use of evidence-driven strategies for health associate director career services, youth, young adults, and their families. www.gottransition.org [email or web address]://[email or web address] /?mgn-lnzwus-zdudber documented in this encounter [facility] 10-31-2023 Note HNO ID: [id number] Author: SOMMER HERNANDEZ PA-C Service: ? Author Type: Physician Sales Supervisor Type: Progress Notes Filed: 11/04/2023 07:46 Note Text: WELL VISIT PEDIATRIC 18+ YRS OLD Amirah is a 18 year old who presents today for well exam. SUBJECTIVE CONCERNS: Yeast infection in vaginal area, scalp, belly button - completed 7 day course [facility], LEAF BLENDER advised in office visit with them Allergy/Immunology [...] (FLONASE) 50 mcg/actuation nasal spray Use 1 Chamberlain in each nostril once daily. loratadine (CLARITIN) [...] satisfactory Screening tools reviewed and discussed with patient/[id number] and Social Determinants of Health. Please see [...] hard Transportation Ne (more content not included)... [facility] 10-31-2023 History of Present illness Narrative WELL VISIT PEDIATRIC 18+ YRS OLD Amirah is a 18 year old who presents today for well exam. SUBJECTIVE CONCERNS: Yeast infection in vaginal area, scalp, belly button - completed 7 day course [facility], LEAF BLENDER advised in office visit with them Allergy/Immunology [...] (FLONASE) 50 mcg/actuation nasal spray Use 1 Chamberlain in each nostril once daily. loratadine (CLARITIN) [...] satisfactory Screening tools reviewed and discussed with patient/[id number] and Social Determinants of Health. Please see [...] and safety. - Dental care discussed. - [employer] handout given (See Patient Instructions). - No immunizations were given at this visit. - Follow up in one year for routine physical. Sommer Hernandez PA-C documented in this encounter [facility] 10-28-2023 Telephone encounter Note The following approved medication requests have been transmitted electronically. Requested Prescriptions Pending Prescriptions Disp Refills albuterol HFA (PROVENTIL HFA, VENTOLIN HFA) 90 mcg/actuation inhaler 18 g 0 Sig: Inhale 2 Puffs as instructed every 4 hours as needed for wheezing/shortness of breath. Que Chavez MD [facility] 10-28-2023 Miscellaneous Notes The following approved medication [...] Antonina Morse RN documented in this encounter [facility] 10-28-2023 Telephone encounter Note Last WCC: greater [...] season) due on 11/05/2022 Antonina Morse RN [facility] 08-25-2023 History of Present illness Narrative Amirah Woodard is a 18 year old female who presents for problem visit burning with intercourse HPI: pt states that her previous symptoms are cleared up, but will have vaginal burning with intercourse and after. OB History T0 L0 SAB0 IAB0 Ectopic0 Multiple0 Live Births0 Roll Cleaner History LMP: 07/04/2023 (Exact Date), Having periods Age at Menarche: Age at First : Age at Menopause: Roll Cleaner History Comments: Sexual Activity: Yes; Male Contraception: [...] (FLONASE) 50 mcg/actuation nasal spray Use 1 Chamberlain in each nostril once daily. albuterol HFA [...] 3 - Low documented in this encounter [facility] 08-21-2023 Instructions Alecia Mendez APRN.JOSELYN - 08/21/2023 [...] inability to swallow. documented in this encounter [facility] 08-21-2023 History of Present illness Narrative Subjective The history is provided by the patient. No speech language pathologist prn was used. HPI Amirah Woodard is a 18 year old female who presents today for CC of sore throat and ever for one day. She is also having nasal congestion, and cough. She has used ibuprofen with short term relief. She works in a [employer]. BP 112/81 Pulse 104 Temp 36.4 C [...] have confirmed and edited as necessary, the [facility] Review of Systems Constitutional: Negative for [...] Alecia Mendez APRN.JOSELYN documented in this encounter [facility] 08-02-2023 Telephone encounter Note BV positive. To treat with Flagyl 500mg PO BID for 7 days. 1) No alcohol during treatment and for 24 hours after last dose. 2) No intercourse during treatment. 3) Probiotic by mouth once daily for 30 days or as needed. I would also recommend using boric acid vaginal suppositories for 7 night. Nilda Stiles APRN.CNP [facility] 08-02-2023 Miscellaneous Notes BV positive. To treat with Flagyl 500mg PO BID for 7 days. 1) No alcohol during treatment and for 24 hours after last dose. 2) No intercourse during treatment. 3) Probiotic by mouth once daily for 30 days or as needed. I would also recommend using boric acid vaginal suppositories for 7 night. Nilda Stiles APRN.JOSELYN documented in this encounter [facility] 07-29-2023 Telephone encounter Note The following approved medication requests have been transmitted electronically. Requested Prescriptions Pending Prescriptions Disp Refills fluticasone (FLONASE) 50 mcg/actuation nasal spray 1 Each 3 Sig: Use 1 Chamberlain in each nostril once daily. albuterol HFA (PROVENTIL HFA, VENTOLIN HFA) 90 mcg/actuation inhaler 18 g 0 Sig: Inhale 2 Puffs as instructed every 4 hours as needed for wheezing/shortness of breath. Que Chavez MD [facility] 07-29-2023 Miscellaneous Notes The following approved medication requests have been transmitted electronically. Requested Prescriptions Pending Prescriptions Disp Refills fluticasone (FLONASE) 50 mcg/actuation nasal spray 1 Each 3 Sig: Use 1 Chamberlain in each nostril once daily. albuterol HFA (PROVENTIL HFA, VENTOLIN HFA) 90 mcg/actuation inhaler 18 g 0 Sig: Inhale 2 Puffs as instructed every 4 hours as needed for wheezing/shortness of breath. Que Chavez MD Last [facility]: 10/05/22 Verify RX Benefits Completed Last medication [...] Antonina Morse RN documented in this encounter [facility] 07-29-2023 Telephone encounter Note Refill request received via [employer]. Patient last seen in office on 07/11/23. Caroline Mora RN [facility] 07-29-2023 Miscellaneous Notes Refill request received via [employer]. Patient last seen in office on 07/11/23. Caroline Mora RN documented in this encounter [facility] 07-29-2023 Telephone encounter Note Last [facility]: 10/05/22 Verify RX Benefits Completed Last medication [...] Health Screening Never done Antonina Morse RN [facility] 07-29-2023 History of Present illness Narrative Stock Associate offered: Patient declines. Amirah Woodard is a [...] external genitalia normal, normal Bartholin's glands, urethra, Firestone's glands, no vulvar lesions, no cervical lesions, [...] 4 - Moderate documented in this encounter [facility] 07-12-2023 Note Addended by: NILDA STILES on: 07/12/2023 02:21 PM Modules accepted: Orders [facility] 07-12-2023 Miscellaneous Notes Addended by: NILDA STILES on: 07/12/2023 02:21 PM Modules accepted: Orders BV positive. To treat with Flagyl 500mg PO BID for 7 days. 1) No alcohol during treatment and for 24 hours after last dose. 2) No intercourse during treatment. 3) Probiotic by mouth once daily for 30 days or as needed. Nilda Stiles APRN.CNP documented in this encounter [facility] 07-12-2023 Telephone encounter Note BV positive. To treat with Flagyl 500mg PO BID for 7 days. 1) No alcohol during treatment and for 24 hours after last dose. 2) No intercourse during treatment. 3) Probiotic by mouth once daily for 30 days or as needed. Nilda Stiles APRN.CNP [facility] 07-11-2023 History of Present illness Narrative Stock Associate offered: Patient declines. Amirah Woodard is a [...] external genitalia normal, normal Bartholin's glands, urethra, Firestone's glands, no vulvar lesions, no cervical lesions, [...] 3 - Low documented in this encounter [facility] 06-29-2023 Telephone encounter Note The following approved medication requests have been transmitted electronically. Requested Prescriptions Pending Prescriptions Disp Refills albuterol HFA (PROVENTIL HFA, VENTOLIN HFA) 90 mcg/actuation inhaler 18 g 0 Sig: Inhale 2 Puffs as instructed every 4 hours as needed for wheezing/shortness of breath. Que Chavez MD [facility] 06-29-2023 Miscellaneous Notes The following approved medication requests have been transmitted electronically. Requested Prescriptions Pending Prescriptions Disp Refills albuterol HFA (PROVENTIL HFA, VENTOLIN HFA) 90 mcg/actuation inhaler 18 g 0 Sig: Inhale 2 Puffs as instructed every 4 hours as needed for wheezing/shortness of breath. Que Chavez MD documented in this encounter [facility] 06-24-2023 History of Present illness Narrative PEDIATRIC [...] Que Chavez MD documented in this encounter [facility] 05-16-2023 History of Present illness Narrative Amirah [...] Kia Lucero MD documented in this encounter [facility] 05-13-2023 Miscellaneous Notes Linked to appointment. Jody Hall RN Done Janelle Marin MD Patient is scheduled with today for IUD removal. Please file pending order to attach to her visit. Thank you. Kia Sheldon RN documented in this encounter [facility] 05-13-2023 History of Present illness Narrative Radiology [...] PATIENT PRESENTS WITH AN IMPLANTABLE OR ATTACHED FRAMING SPECIALIST: No RADIOLOGY DEPARTMENT: Ultrasound PERIPHERAL IV DATA: Not applicable SIGNED BY: Alla David RDMS May 13, 2023 8:31 AM documented in this encounter [facility] 05-03-2023 History of Present illness Narrative Amirah [...] L0 SAB0 IAB0 Ectopic0 Multiple0 Live Births0 Roll Cleaner History LMP: 04/04/2023 (Exact Date), Having periods Age at Menarche: Age at First : Age at Menopause: Roll Cleaner History Comments: Sexual Activity: Not Currently; Male [...] (FLONASE) 50 mcg/actuation nasal spray Use 1 Chamberlain in each nostril once daily. (Patient taking differently: Use 1 Chamberlain in each nostril once daily. 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 I have re-performed the HPI, Physical Examination, Assessment and Plan. Delfina Watson APRN.CNM documented in this encounter [facility] 11-12-2022 Miscellaneous Notes Please see pt's mychart message and further advise. Charis Crook LPN documented in this encounter [facility] 10-05-2022 Instructions Sommer Hernandez PA-C - 10/05/2022 [...] drinks Go! Be healthy, inside and out! [email or web address] Adolescent to Adult Transition Program [facility] cares about helping you and each of our adolescents and young adults make a smooth transition to adult care. If your current doctor is a doctor of nurse anesthesia, we will work with you to decide [...] your current doctor is in family medicine, [facility] will prepare you and your family for [...] details. If joining our practice from outside [facility], we will help you request your medical [...] the use of evidence-driven strategies for health associate director career services, youth, young adults, and their families. www.gottransition.org https://gottransition.[email or web address]/resource /?aui-tlwwfs-rgtbokn documented in this encounter [facility] 10-05-2022 History of Present illness Narrative WELL [...] (FLONASE) 50 mcg/actuation nasal spray Use 1 Chamberlain in each nostril once daily. (Patient taking differently: Use 1 Chamberlain in each nostril once daily. PRN) Olopatadine [...] satisfactory Screening tools reviewed and discussed with patient/[id number] and Social Determinants of Health. Please see [...] safety. - Dental care discussed. - [employer] handout given (See Patient Instructions). - Patient was counseled [id number] by myself (the billing provider) for the following immunizations and vaccine components, including side effects: HPV. Patient consents for immunization and understands risks and benefits. A VIS sheet on each immunization was given to the patient. - Follow up in one year for routine physical. Sommer Hernandez PA-C documented in this encounter [facility] 07-15-2022 History of Present illness Narrative CONTRACEPTION [...] (FLONASE) 50 mcg/actuation nasal spray Use 1 Chamberlain in each nostril once daily. Olopatadine (PATADAY [...] 3 - Low documented in this encounter [facility] 07-12-2022 Miscellaneous Notes She can do a virtual visit since I've seen her this year. Nilda Stiles APRN.CNP Do you want patient to have an in person or virtual visit to discuss? documented in this encounter [facility] 05-27-2022 History of Present illness Narrative Patient presents with: Sore Throat: Cough, chest congestion, runny nose x4 days HPI: Feeling sick for 5 days. Her boyfriend is sick with cough and sore throat also. She works in a [employer]. Positive symptoms: Cough, Sore throat, Nasal Congestion, [...] (FLONASE) 50 mcg/actuation nasal spray Use 1 Chamberlain in each nostril once daily. Olopatadine (PATADAY [...] Ramon Patrick MD documented in this encounter [facility] 05-10-2022 Miscellaneous Notes Voicemail and Plumbrhart message to pt to offer sooner appt. Pt is currently scheduled for 05/17/22 for vaginal burning with intercourse. When pt calls the office please offer her time tomorrow to be seen. Charis Crook LPN documented in this encounter [facility] 05-07-2022 History of Present illness Narrative PEDIATRIC SICK VISIT SERVICE DATE: 04/18/2022 TEACHING PROVIDER (Physician/PA/FLAKER TENDER) NOTE OF PERSONAL INVOLVEMENT IN CARE: I have personally seen and examined the patient and performed the medical decision-making components. I have reviewed the Physician Sales Supervisor (PA) Student's documentation and verified the findings in the note as written. Signature: Sommer Hernandez PA-C Date: 05/07/2022 Time: 9:01 AM This note was generated by a PA STUDENT working under the supervision of an Attending Physician Sales Supervisor. As applicable, the findings, conclusions, and assessment of risk have been confirmed by a qualified provider. The note is NOT considered authenticated until addended and co-signed by the Attending Physician Sales Supervisor at the beginning of this note. SUBJECTIVE: [...] contacts: No known sick contacts (works at [employer]) HISTORY: ACTIVE PROBLEM LIST Allergic Rhinitis - [...] (FLONASE) 50 mcg/actuation nasal spray Use 1 Chamberlain in each nostril once daily. Olopatadine (PATADAY [...] TIME: 9:00 AM documented in this encounter [facility] 05-03-2022 Miscellaneous Notes Please have the patient make another appointment so that we can repeat the vaginal swabs to see if the infection has cleared. Nilda Stiles APRN.JOSELYN documented in this encounter [facility] 04-13-2022 Miscellaneous Notes Patient notified. States she [...] Nilda Stiles APRN.CNP documented in this encounter [facility] 04-12-2022 History of Present illness Narrative Amirah [...] external genitalia normal, normal Bartholin's glands, urethra, Firestone's glands, no vulvar lesions, no cervical lesions, [...] 3 - Low documented in this encounter [facility] 04-09-2022 Miscellaneous Notes 1st attempt no answer, no voicemail. Called to R/S w/ Paxton for 04/12. Kia Tijerina documented in this encounter [facility] 03-16-2022 History of Present illness Narrative Amirah [...] L0 SAB0 IAB0 Ectopic0 Multiple0 Live Births0 Roll Cleaner History LMP: 03/04/2022, Having periods Age at Menarche: Age at First : Age at Menopause: Roll Cleaner History Comments: Sexual Activity: Not Currently; Male [...] (FLONASE) 50 mcg/actuation nasal spray Use 1 Chamberlain in each nostril once daily. Olopatadine (PATADAY [...] external genitalia normal, normal Bartholin's glands, urethra, Firestone's glands, no vulvar lesions, no cervical lesions, [...] 3 - Low documented in this encounter [facility] 01-18-2022 Instructions Alecia Mendez APRN.CNP - 01/18/2022 10:23 AM EST covid test ordered You will be notified in 12-24 hours, results available on [facility] Home isolation until covid results are [...] inability to swallow. documented in this encounter [facility] 01-18-2022 History of Present illness Narrative Subjective The history is provided by the patient. No speech language pathologist prn was used. HPI Amirah Woodard is a 16 year old female who presents today for CC of cough, congestion, sore throat and fever that started on Tuesday. She has use tylenol, and nyquil with short term relief. She is a student and works in a [employer]. BP 118/64 Pulse 112 Temp 36.5 C [...] have confirmed and edited as necessary, the [facility] Review of Systems Constitutional: Negative for [...] in 24-48 hours with results, available on Plumbrhart - COVID, FLU A/B + RSV, ROUTINE [...] Alecia Mendez APRN.JOSELYN [facility] [facility] History of Present illness Narrative PEDIATRIC SICK VISIT SERVICE DATE: 10/28/2021 TEACHING PROVIDER (Physician/PA/CATRINA) NOTE OF PERSONAL INVOLVEMENT IN CARE: I have personally seen and examined the patient and performed the medical decision-making components. I have reviewed the Physician Sales Supervisor (PA) Student's documentation and verified the findings in the note as written. Signature: Sommer Hernandez PA-C Date: 10/28/2021 Time: 9:59 AM This note was generated by a PA STUDENT working under the supervision of an Attending Physician Sales Supervisor. As applicable, the findings, conclusions, and assessment of risk have been confirmed by a qualified provider. The note is NOT considered authenticated until addended and co-signed by the Attending Physician Sales Supervisor at the beginning of this note. SUBJECTIVE: [...] (FLONASE) 50 mcg/actuation nasal spray Use 1 Chamberlain in each nostril once daily. Olopatadine (PATADAY [...] TIME: 9:00 AM documented in this encounter [facility] 10-05-2021 Instructions Alecia Mendez APRN.PCB DESIGNER - 10/05/2021 1:02 PM EDT covid test ordered You will be notified in 24 -48 hours, [facility] are [...] inability to swallow. documented in this encounter [facility] 10-05-2021 History of Present illness Narrative Subjective [...] have confirmed and edited as necessary, the [facility] Review of Systems Constitutional: Positive for [...] in 24-48 hours with results, available on [facility] - COVID, FLU A/B + RSV, ROUTINE [...] Alecia Mendez APRN.JOSELYN documented in this encounter [facility] 07-13-2021 Instructions Que Chavez MD - 07/13/2021 [...] drinks Go! Be healthy, inside and out! [email or web address].org/5toGo Adolescent to Adult Transition Program [facility] cares about helping you and each of our adolescents and young adults make a smooth transition to adult care. If your current doctor is a doctor of nurse anesthesia, we will work with you to decide [...] your current doctor is in family medicine, [facility] will prepare you and your family for [...] details. If joining our practice from outside [facility], we will help you request your medical [...] the use of evidence-driven strategies for health associate director career services, youth, young adults, and their families. www.gottransition.org https://sportif225.org/resource /?iir-khgajm-xqfkvzs Healthy Children Ages & Stages Texting Program HealthyChildren.org is an AAP ([place] [employer]) parenting website. It is [...] https://www.healthychildren.org/En natachash/tips-tools/HealthyChildren-T exting-Program/Pages/default.aspx documented in this encounter [facility] 07-13-2021 History of Present illness Narrative WELL [...] (FLONASE) 50 mcg/actuation nasal spray Use 1 Chamberlain in each nostril once daily. Olopatadine (PATADAY [...] No Screening tools reviewed and discussed with patient/ubatoj-SZW-U and Social Determinants of Health. Please see [...] TIME: 9:00 AM documented in this encounter [facility] 06-12-2021 History of Present illness Narrative PEDIATRIC [...] TDAP VACCINE AGE 7+ IM MENINGOCOCCAL CONJUGATE [id number], IM She has had a partial response [...] 2021 TIME: 9:13 AM Parent/guardian was counseled [id number] by myself (the billing provider) for the following immunizations, including side effects: Menactra and TdaP. Parent/guardian consents for immunization and understands risks and benefits. A VIS sheet on each immunization was offered to the parent. SIGNATURE: Que Chavez MD PATIENT NAME: Amirah Woodard DATE: June 12, 2021 TIME: 9:29 AM documented in this encounter [facility] 06-12-2021 Instructions Que Chavez MD - 06/12/2021 [...] drinks Go! Be healthy, inside and out! www.[facility].org/5toGo documented in this encounter [facility] 08-09-2016 History of Past i llness Narrative Problem Noted Date Resolved Date Exercise-induced asthma with acute exacerbation 08/09/2016 06/12/2021 documented as of this encounter (statuses as of 06/12/2021) [facility] of Past illness Narrative* Problem Noted Date Resolved Date Exercise-induced asthma with acute exacerbation 08/09/2016 06/12/2021 documented as of this encounter (statuses as of 07/13/2021) [facility] of [facility] Narrative* Problem Noted Date Resolved Date Exercise-induced asthma with acute exacerbation 08/09/2016 06/12/2021 documented as of this encounter (statuses as of 09/18/2021) [facility] of [facility] Narrative* Problem Noted Date Resolved Date Exercise-induced asthma with acute exacerbation 08/09/2016 06/12/2021 documented as of this encounter (statuses as of 10/05/2021) [facility] of [facility] Narrative* Problem Noted Date Resolved Date Exercise-induced asthma with acute exacerbation 08/09/2016 06/12/2021 documented as of this encounter (statuses as of 10/28/2021) [facility] of [facility] Narrative* Problem Noted Date Resolved Date Exercise-induced asthma with acute exacerbation 08/09/2016 06/12/2021 documented as of this encounter (statuses as of 12/28/2021) [facility] Narrative* Problem Noted Date Resolved Date Exercise-induced asthma with acute exacerbation 08/09/2016 06/12/2021 documented as of this encounter (statuses as of 01/18/2022) [facility] of [facility] Narrative* Problem Noted Date Resolved Date Exercise-induced asthma with acute exacerbation 08/09/2016 06/12/2021 documented as of this encounter (statuses as of 03/16/2022) [facility] of [facility] Narrative* Problem Noted Date Resolved Date Exercise-induced asthma with acute exacerbation 08/09/2016 06/12/2021 documented as of this encounter (statuses as of 04/09/2022) [facility] Narrative* Problem Noted Date Resolved Date Exercise-induced asthma with acute exacerbation 08/09/2016 06/12/2021 documented as of this encounter (statuses as of 04/12/2022) [facility] Narrative* Problem Noted Date Resolved Date Exercise-induced asthma with acute exacerbation 08/09/2016 06/12/2021 documented as of this encounter (statuses as of 04/13/2022) [facility] Narrative* Problem Noted Date Resolved Date Exercise-induced asthma with acute exacerbation 08/09/2016 06/12/2021 documented as of this encounter (statuses as of 05/03/2022) [facility] Narrative* Problem Noted Date Resolved Date Exercise-induced asthma with acute exacerbation 08/09/2016 06/12/2021 documented as of this encounter (statuses as of 05/07/2022) [facility] Narrative* Problem Noted Date Resolved Date Exercise-induced asthma with acute exacerbation 08/09/2016 06/12/2021 documented as of this encounter (statuses as of 05/11/2022) [facility] Narrative* Problem Noted Date Resolved Date Exercise-induced asthma with acute exacerbation 08/09/2016 06/12/2021 documented as of this encounter (statuses as of 05/27/2022) [facility] Narrative* Problem Noted Date Resolved Date Exercise-induced asthma with acute exacerbation 08/09/2016 06/12/2021 documented as of this encounter (statuses as of 07/13/2022) [facility] Narrative* Problem Noted Date Resolved Date Exercise-induced asthma with acute exacerbation 08/09/2016 06/12/2021 documented as of this encounter (statuses as of 07/16/2022) [facility] Narrative* Problem Noted Date Diagnosed Date Resolved Date Exercise-induced asthma with acute exacerbation 08/09/2016 06/12/2021 documented as of this encounter (statuses as of 10/06/2022) [facility] Narrative* Problem Noted Date Diagnosed Date Resolved Date Exercise-induced asthma with acute exacerbation 08/09/2016 06/12/2021 documented as of this encounter (statuses as of 11/12/2022) [facility] Narrative* Problem Noted Date Diagnosed Date Resolved Date Exercise-induced asthma with acute exacerbation 08/09/2016 06/12/2021 documented as of this encounter (statuses as of 04/28/2023) [facility] Narrative* Problem Noted Date Diagnosed Date Resolved Date Exercise-induced asthma with acute exacerbation 08/09/2016 06/12/2021 documented as of this encounter (statuses as of 05/13/2023) [facility] Narrative* Problem Noted Date Diagnosed Date Resolved Date Exercise-induced asthma with acute exacerbation 08/09/2016 06/12/2021 documented as of this encounter (statuses as of 05/14/2023) [facility] Narrative* Problem Noted Date Diagnosed Date Resolved Date Exercise-induced asthma with acute exacerbation 08/09/2016 06/12/2021 documented as of this encounter (statuses as of 05/16/2023) [facility] Narrative* Problem Noted Date Diagnosed Date Resolved Date Exercise-induced asthma with acute exacerbation 08/09/2016 06/12/2021 documented as of this encounter (statuses as of 05/18/2023) [facility] Narrative* Problem Noted Date Diagnosed Date Resolved Date Exercise-induced asthma with acute exacerbation 08/09/2016 06/12/2021 documented as of this encounter (statuses as of 06/24/2023) [facility] Conrado Richardson [facility] Note Date/Time September 04, 2024 12:01 pm [facility] Medical Records Department [address] [place] [address] Emergency Department Summary 09/04/24 MR#: [id number] Acct: [id number] Name: AMIRAH WOODARD Rep #:[id number] : [...] discomfort that was diffuse. Lightheadedness. Saw her BIOASSAYIST in the office Dr. Adrienne Marin. Who [...] 10/04/23 Unknown Hist ory cell-Bifido 25 billion izdb-BJG-izozj capsule albuterol sulfate 90 mcg/actuation inhalation 10/04/23 [...] the ankles bilaterally. Dorsi plantarflexion intact. Normal dressmaker or tailor strength. Normal radial pulses. Back nontender. Neurologically [...] Tylenol for pain. Outpatient follow-up with her BIOASSAYIST. History & Record Review Discussion w/independent historian: [...] 70.6 H Lymph % (Auto) 16.7 L [place] % (Auto) 8.8 Eos % (Auto) 2.2 [...] dissection No acute pulmonary process Reading Location: [facility] Rhythm Strip Rhythm Strip: Sinus Tach Rate: 113 Ectopy: None EKG Initial EKG: Attestation: I personally reviewed and interpreted this EKG as follows: Interpretation: No Acute Injury Pattern and Sinus Tachycardia Comments: Sinus tachycardia rate of 113 no acute signs of CA or ischemia. Discharge Plan Triage Chief Complaint: Chest Pain ED Provider: Conrado Richardson Dx/Rx/DC Orders Clinical Impression: Chest pain, Third trimester Instructions: ED Chest Pain, Uncertain Cause Prescriptions: No Action albuterol sulfate 90 mcg/actuation HFA aerosol inhaler inhalation Lacto no.01-Fzowsf-MMM-larch 25B cell-25B cell-50 mg capsule PO One A Day Women's DHA 28 mg iron- 800 mcg combo pack PO Primary Care Provider: Ruiz Vega Referrals: Ruiz Vega DO [Primary Care Provider] - As Needed Janelle Marin MD [Med Staff - Active Staff] - As Needed Activity Restrictions/Additional Instructions: Follow-up your BIOASSAYIST and your primary care physician as needed. Your test today looked good. No signs of a blood clot or heart attack. Print Language: Algerian Disposition Disposition: Home, Self Care What to do if you have Problems For any increased pain, shortness of breath, bleeding, nausea or vomiting, chestpain, or any unexpected problems, contact your Primary Care Provider. Call [facility] ([phone]) or report to the closest Emergency Room. Call 911 if necessary. 09/04/24 1201 <Electronically signed by Conrado Richardson MD> Cosigner Signature (if applicable): CC: Dr. Ruiz Vega DO ~ Signed [facility] Work Phone: Evaluation note* Diagnosis Gastroesophageal reflux disease, unspecified whether esophagitis present- Primary Encounter for immunization Need for other specified prophylactic vaccination against single bacterial disease [facility] Encounter for WCC (well child check) with abnormal findings- Primary Gastroesophageal reflux disease, unspecified whether esophagitis present Allergic rhinitis, unspecified seasonality, unspecified trigger [facility] Diagnosis Pelvic pain in female- Primary Unspecified symptom associated with female genital organs [facility] Diagnosis Upper respiratory symptom- Primary Other symptoms involving respiratory system and chest Suspected COVID-19 virus infection [facility] Diagnosis Seasonal allergies- Primary Allergic rhinitis, cause unspecified [facility] Diagnosis Encounter for immunization- Primary Need for other specified prophylactic vaccination against single bacterial disease [facility] Diagnosis Acute cough- Primary Fever, unspecified fever cause Sore throat Acute pharyngitis URI with cough and congestion [facility] Diagnosis Pelvic pain in female- Primary Unspecified symptom associated with female genital organs Encounter for surveillance of contraceptive pills Surveillance of previously prescribed contraceptive pill [facility] Diagnosis Vaginal irritation- Primary Unspecified noninflammatory disorder of vagina [facility] Diagnosis Dysfunction of both eustachian tubes- Primary Dysfunction of Eustachian tube Seasonal allergies Allergic rhinitis, cause unspecified [facility]* Diagnosis URI, acute- Primary Acute upper respiratory infections of unspecified site Wheezing [facility]* Diagnosis Missed period- Primary Irregular menstrual cycle Encounter for other contraceptive management [facility] Diagnosis Encounter for wellness examination in adult- Primary Encounter for immunization Need for other specified prophylactic vaccination against single bacterial disease [facility] Diagnosis Malpositioned intrauterine device (IUD), initial encounter- Primary Encounter for IUD removal Encounter for removal of intrauterine contraceptive device [facility] Diagnosis Pelvic pain in female Unspecified symptom associated with female genital organs [facility] Diagnosis Encounter for IUD removal- Primary Encounter for removal of intrauterine contraceptive device Displacement of intrauterine contraceptive device, initial encounter Malpositioned intrauterine device (IUD), initial encounter [facility] Diagnosis Vaginal discharge- Primary Leukorrhea, not specified as infective Vaginal itching Pruritus of genital organs Pelvic pain in female Unspecified symptom associated with female genital organs [facility] Diagnosis Pes planus of both feet- Primary Pain in archer, unspecified laterality Acute upper respiratory infection Acute upper respiratory infections of unspecified site Mild intermittent asthma with (acute) exacerbation [facility]* Diagnosis Wheezing [facility]* Diagnosis Vaginal burning- Primary Other specified symptom associated with female genital organs [facility]* Diagnosis BV (bacterial vaginosis) Vaginitis and vulvovaginitis, unspecified [facility]* Diagnosis Wheezing [facility]* Diagnosis Vaginal discharge- Primary Leukorrhea, not specified as infective [facility]* Diagnosis Sore throat- Primary Acute pharyngitis Viral illness Unspecified viral infection, in conditions classified elsewhere and of unspecified site [facility]* Diagnosis Vaginal burning- Primary Other specified symptom associated with female genital organs [facility]* Diagnosis Wheezing [facility]* Diagnosis Wheezing [facility]* Diagnosis Encounter for wellness examination in adult- Primary Mild intermittent asthma with (acute) exacerbation Seborrhea Adverse food reaction, initial encounter [facility]* Diagnosis Vaginal discharge- Primary Leukorrhea, not specified as infective Vaginal irritation Unspecified noninflammatory disorder of vagina Family history of thyroid disorder Family history of other endocrine and metabolic diseases [facility]* Diagnosis Encounter for test, result positive- Primary examination or test, positive result [facility]* Diagnosis Encounter for care in first trimester of first - Primary 7 weeks gestation of state, incidental Vaginal irritation Unspecified noninflammatory disorder of vagina BMI 32.0-32.9,adult Body Mass Index 32.0-32.9, adult Supervision of normal first teen in first trimester [facility]* Diagnosis Sore throat- Primary Acute pharyngitis [facility]* Diagnosis Acute non-recurrent frontal sinusitis- Primary documented in this encounter [facility] note* Diagnosis Vaginal irritation- Primary Unspecified noninflammatory disorder of vagina Vaginal discharge Leukorrhea, not specified as infective Encounter for care in first trimester of first 12 weeks gestation of state, incidental [facility] Diagnosis Supervision of normal first teen in first trimester- Primary 13 weeks gestation of state, incidental Obesity in Obesity complicating , childbirth, or the puerperium, unspecified as to episode of care or not applicable [facility]* Diagnosis Encounter for screening for malformation using ultrasound- Primary 13 weeks gestation of state, incidental documented in this encounter [facility] note* Diagnosis Wheezing [facility]* Diagnosis Supervision of normal first teen in second trimester- Primary Obesity in Obesity complicating , childbirth, or the puerperium, unspecified as to episode of care or not applicable 16 weeks gestation of state, incidental Dizziness Dizziness and giddiness [facility]* Diagnosis Supervision of normal first teen in second trimester- Primary Obesity in Obesity complicating , childbirth, or the puerperium, unspecified as to episode of care or not applicable 20 weeks gestation of state, incidental documented in this encounter [facility] note* Diagnosis Obesity in - Primary Obesity complicating , childbirth, or the puerperium, unspecified as to episode of care or not applicable Supervision of normal first teen in first trimester 13 weeks gestation of state, incidental [facility]* Diagnosis Obesity in (HCC)- Primary Obesity complicating , childbirth, or the puerperium, unspecified as to episode of care or not applicable Supervision of normal first teen in second trimester (HCC) 22 weeks gestation of (HCC) state, incidental Cramping affecting , antepartum (HCC) documented in this encounter [facility] note* Diagnosis 24 weeks gestation of (HCC)- Primary state, incidental Obesity in (HCC) Obesity complicating , childbirth, or the puerperium, unspecified as to episode of care or not applicable Screening for diabetes mellitus * Assessment & Plan Note - Janelle Marin MD - 06/19/2024 2:51 PM EDTAssociated Problem(s): Obesity in (HCC) documented in this encounter [facility] note* Diagnosis 24 weeks gestation of (HCC)- [...] of normal first teen in second trimester ([facility]) Decreased movements in second trimester, single or unspecified fetus ([facility]) documented in this encounter [facility] note* Diagnosis 24 weeks gestation of (HCC)- Primary state, incidental Obesity in (HCC) Obesity complicating , childbirth, or the puerperium, unspecified as to episode of care or not applicable Screening for diabetes mellitus Supervision of high risk in third trimester ([facility])- Primary Unspecified high-risk 28 weeks gestation of ([facility]) state, incidental Obesity affecting in third trimester, unspecified obesity type ([facility]) Vaginal discharge during in third trimester ([facility] [facility]) documented in this encounter [facility] note* Diagnosis 24 weeks gestation of (HCC)- Primary state, incidental Obesity in (HCC) Obesity complicating , childbirth, or the puerperium, unspecified as to episode of care or not applicable Screening for diabetes mellitus Supervision of high risk in third trimester ([facility])- Primary Unspecified high-risk 30 weeks gestation of ([facility]) state, incidental Rash Rash and other nonspecific skin eruption Other obesity due to excess calories affecting , antepartum ([facility]) Allergic rhinitis, unspecified seasonality, unspecified trigger * Assessment & Plan Note - Castillo Mckeon MD - 08/01/2024 9:51 AM EDT Associated Problem(s): Supervision of high risk in third trimester ([facility]) Orders: COMPLETE BLOOD COUNT AND DIFFERENTIAL; Future COMPREHENSIVE METABOLIC PANEL; Future BILE ACIDS, TOTAL; Future * Assessment & Plan Note - Castillo Mckeon MD - 08/01/2024 9:51 AM EDT Associated Problem(s): Allergic rhinitis [facility] Diagnosis 24 weeks gestation of ([facility])- Primary state, incidental Obesity in ([facility]) Obesity complicating , childbirth, or the puerperium, unspecified as to episode of care or not applicable Screening for diabetes mellitus Supervision of high risk in third trimester ([facility])- Primary Unspecified high-risk 30 weeks gestation of ([facility]) state, incidental Rash Rash and other nonspecific skin eruption Other obesity due to excess calories affecting , antepartum ([facility]) Allergic rhinitis, unspecified seasonality, unspecified trigger Well adult exam- Primary Routine general medical examination at a health care facility 31 weeks gestation of ([facility]) state, incidental Class 2 obesity with body mass index (BMI) of 35.0 to 35.9 in adult, unspecified obesity type, unspecified whether serious comorbidity present Gastroesophageal reflux disease without esophagitis Esophageal reflux [facility]* Diagnosis 24 weeks gestation of (HCC)- Primary state, incidental Obesity in ([facility]) Obesity complicating , childbirth, or the puerperium, unspecified as to episode of care or not applicable Screening for diabetes mellitus Supervision of high risk in third trimester ([facility])- Primary Unspecified high-risk 30 weeks gestation of ([facility]) state, incidental Rash Rash and other nonspecific skin eruption Other obesity due to excess calories affecting , antepartum ([facility]) Allergic rhinitis, unspecified seasonality, unspecified trigger Supervision of high risk in third trimester (HCC)- Primary Unspecified high-risk 32 weeks gestation of (HCC) state, incidental Obesity affecting in third trimester, unspecified obesity type (HCC) documented in this encounter [facility] note* Diagnosis 24 weeks gestation of (HCC)- [...] (HCC) state, incidental documented in this encounter [facility] noteNo assessment information availableWAdams [facility] Work Phone: Evaluation note* Diagnosis 24 [...] OB DIP B/O [facility] Diagnosis 24 weeks gestation of (HCC)- [...] due to excess calories affecting , antepartum ([facility]) Allergic rhinitis, unspecified seasonality, unspecified trigger [...] (HCC) rx pepcid documented in this encounter [facility] note* Diagnosis 24 weeks gestation of (HCC)- Primary state, incidental Obesity in ([facility]) Obesity complicating , childbirth, or the puerperium, unspecified as to episode of care or not applicable Screening for diabetes mellitus Supervision of high risk in third trimester ([facility])- Primary Unspecified high-risk 30 weeks gestation of ([facility]) state, incidental Rash Rash and other nonspecific skin eruption Other obesity due to excess calories affecting , antepartum ([facility]) Allergic rhinitis, unspecified seasonality, unspecified trigger Supervision of high risk in third trimester ([facility])- Primary Unspecified high-risk Obesity affecting in third trimester, unspecified obesity type ([facility]) 35 weeks gestation of ([facility]) state, incidental 36 weeks gestation of ([facility])- Primary state, incidental Supervision of high risk in third trimester ([facility]) Unspecified high-risk Obesity affecting in third trimester, unspecified obesity type ([facility]) Heartburn during in third trimester ([facility]) Supervision of high risk in third trimester ([facility])- Primary Unspecified high-risk 37 weeks gestation of ([facility]) state, incidental Positive GBS test documented in this encounter [facility] note* Diagnosis 24 weeks gestation of (HCC)- Primary state, incidental Obesity in ([facility]) Obesity complicating , childbirth, or the puerperium, unspecified as to episode of care or not applicable Screening for diabetes mellitus Supervision of high risk in third trimester ([facility])- Primary Unspecified high-risk 30 weeks gestation of ([facility]) state, incidental Rash Rash and other nonspecific skin eruption Other obesity due to excess calories affecting , antepartum ([facility]) Allergic rhinitis, unspecified seasonality, unspecified trigger Supervision of high risk in third trimester ([facility])- Primary Unspecified high-risk Obesity affecting in third trimester, unspecified obesity type (HCC) 35 weeks gestation of ([facility]) state, incidental 36 weeks gestation of (HCC)- [...] OB DIP B/O documented [facility]* Diagnosis 24 weeks gestation of (HCC)- [...] due to excess calories affecting , antepartum ([facility]) Allergic rhinitis, unspecified seasonality, unspecified trigger [...] third trimester (HCC) Unspecified high-risk Obesity in ([facility]) Obesity complicating , childbirth, or the puerperium, unspecified as to episode of care or not applicable Positive GBS test documented in this encounter [facility] Discharge instructionsAdditional Instructions Follow-up your BIOASSAYIST and your primary care physician as needed. Your test today looked good. No signs of a blood clot or heart attack.[facility] Work Phone: Reason for referral (narrative)* Outpatient Procedure (Routine) - Pending Review Specialty Diagnoses / Procedures Referred By Lance t Referred To Contact [facility] Diagnoses Malpositioned intrauterine device (IUD), initial encounter Encounter for IUD removal Procedures REMOVE INTRAUTERINE DEVICE REMOVE INTRAUTERINE DEVICE Janelle Marin MD [address] [place] [place] [address] [facility] [address] [place] [address] Referral ID Status Reason Start Date Expiration Date Visits Requested Visits Authorized [id number] Pending Review Auto-Generat ed Referral 05/13/2023 05/12/2024 1 1 [facility] for referral (narrative)* Diagnostic Procedure Only (Routine) - Closed Specialty Diagnoses / Procedures Referred By Contac t Referred To Contact [facility] Diagnoses Pelvic pain in female Procedures US FEMALE PELVIS TRANSVAG US TRANSVAGINAL Delfina Watson APRN.CNM [address] [place] [place] [address] [place] [address] Referral ID Status Reason Start Date Expiration Date V isits Requested Visits Authorized [id number] Closed Auto-Generate d Referral 05/03/2023 06/01/2024 1 1 [facility] for referral (narrative)* Diagnostic Procedure Only (Routine) - Closed Specialty Diagnoses / Procedures Referred By Contac t Referred To Contact [facility] Diagnoses Pelvic pain in female Procedures US FEMALE PELVIS TRANSVAG US TRANSVAGINAL Delfina Watson APRN.CNM [address] [place] [place] [address] [place] [address] Referral ID Status Reason Start Date Expiration Date V isits Requested Visits Authorized [id number] Closed Auto-Generate d Referral 05/03/2023 06/01/2024 1 1 [facility] for referral (narrative)* Diagnostic Procedure Only (Routine) - Authorized Specialty Diagnoses / Procedures Referred By Contac t Referred To Contact [facility] Diagnoses Encounter for care in first trimester of first 7 weeks gestation of Procedures NUCHAL TRANSLUCENCY WHI US NUCHAL TRANSLUCENCY 1ST GESTATION Nilda Stiles APRN.CNP [address] [place] [address] [place] [id number] Referral ID Status Reason Start Date Expiration Date Visits Requested Visits Authorized [id number] Authorized Auto-Generat ed Referral 02/20/2025 1 1 [facility] for referral (narrative)* Diagnostic Procedure Only (Routine) - Authorized Specialty Diagnoses / Procedures Referred By Contac t Referred To Contact [facility] Diagnoses Supervision of normal first teen in first trimester 13 weeks gestation of Obesity in Procedures OBSTETRIC ULTRASOUND WHI US PREG UTERUS AFTER 1ST TRIMEST GESTATION Delfina Watson APRN.CNM [address] [place] [address] [facility] [address] [place] [address] Referral ID Status Reason Start Date Expiration Date Visits Requested Visits Authorized [id number] Authorized Auto-Generat ed Referral 04/03/2024 04/03/2025 1 1 [facility] for referral (narrative)No reason for referral information availableWAdams [facility] Work Phone: Reason for visit Narrative* Outpatient Procedure (Routine) - Authorized Specialty Diagnoses / Procedures Referred By Contac t Referred To Contact [facility] Diagnoses Malpositioned intrauterine device (IUD), initial encounter Encounter for IUD removal Procedures REMOVE INTRAUTERINE DEVICE REMOVE INTRAUTERINE DEVICE Janelle Marin MD [address] [place] [address] [facility] [address] [place] [address] Referral ID Status Reason Start Date Expiration Date Visits Requested Visits Authorized [id number] Authorized Auto-Generat ed Referral 05/16/2023 03/06/2024 2 2 [facility] Health Concerns Infection Onset Date Last Indicated Resolved Time COVID-19 Rule-Out 10/05/2021 10/05/2021 Infection Onset Date Last Indicated Resolved Time COVID-19 Rule-Out 01/18/2022 01/18/2022 Reason for Referral Specialty Diagnoses / Procedures Referred By Contac t Referred To Contact Diagnoses Ramon Chinchilla MD [address] [place] [address] Referral ID Status Reason Start Date Expiration Date Visits Re quested Visits Authorized [id number] Closed 1 1 Specialty Diagnoses / Procedures Referred By Contac t Referred To Contact Diagnoses BV (bacterial vaginosis) Nilda Stiles APRN.PCB DESIGNER [address] [place] [address] Referral ID Status Reason Start Date Expiration Date Visits Re quested Visits Authorized [id number] Closed 1 1 Specialty Diagnoses / Procedures Referred By Contac t Referred To Contact Allergy Diagnoses Adverse food reaction, initial encounter Procedures CONSULT TO ALLERGY/IMMUNOLOGY OFFICE/OUTPATIENT [facility] 60 MINUTES Sommer Hernandez PA-C [address] [place] [address] Referral ID Status Reason Start Date Expiration Date Visits Requested Visits Authorized [id number] Authorized PCP Requested Referral 10/31/2023 10/30/2024 1 1 Chief Complaint and Reason for Visit Chief Complaint Admit Date SOB September 04, 2024 10:11 am Chief Complaint Admit Date SOB September 04, 2024 10:11 am RULE OUT LABOR October 12, 2024 11: 20pm Advance Directives Advance Directive Response Recorded Date/ Time Do you have a Healthcare Power of Impact Hammer Operator? No September 04, 2024 10:30am Summary Purpose [...] or prosecute any alcohol or drug abuse patient.[facility] CenterIn the event this information is protected by the Federal Confidentiality of Alcohol and Drug Abuse Patient Records regulations: The Federal rules restrict any use of the information to criminally investigate or prosecute any alcohol or drug abuse patient.[facility] CenterIn the event this information is protected by the Federal Confidentiality of Alcohol and Drug Abuse Patient Records regulations: The Federal rules restrict any use of the information to criminally investigate or prosecute any alcohol or drug abuse patient.[facility] CenterIn the event this information is protected by the Federal Confidentiality of Alcohol and Drug Abuse Patient Records regulations: The Federal rules restrict any use of the information to criminally investigate or prosecute any alcohol or drug abuse patient.[facility] CenterIn the event this information is protected by the Federal Confidentiality of Alcohol and Drug Abuse Patient Records regulations: The Federal rules restrict any use of the information to criminally investigate or prosecute any alcohol or drug abuse patient.[facility] CenterIn the event this information is protected by the Federal Confidentiality of Alcohol and Drug Abuse Patient Records regulations: The Federal rules restrict any use of the information to criminally investigate or prosecute any alcohol or drug abuse patient.[facility] CenterIn the event this information is protected by the Federal Confidentiality of Alcohol and Drug Abuse Patient Records regulations: The Federal rules restrict any use of the information to criminally investigate or prosecute any alcohol or drug abuse patient.[facility] CenterIn the event this information is protected by the Federal Confidentiality of Alcohol and Drug Abuse Patient Records regulations: The Federal rules restrict any use of the information to criminally investigate or prosecute any alcohol or drug abuse patient.[facility] CenterIn the event this information is protected by the Federal Confidentiality of Alcohol and Drug Abuse Patient Records regulations: The Federal rules restrict any use of the information to criminally investigate or prosecute any alcohol or drug abuse patient.[facility] CenterIn the event this information is protected by the Federal Confidentiality of Alcohol and Drug Abuse Patient Records regulations: The Federal rules restrict any use of the information to criminally investigate or prosecute any alcohol or drug abuse patient.[facility] CenterIn the event this information is protected by the Federal Confidentiality of Alcohol and Drug Abuse Patient Records regulations: The Federal rules restrict any use of the information to criminally investigate or prosecute any alcohol or drug abuse patient.[facility] CenterIn the event this information is protected by the Federal Confidentiality of Alcohol and Drug Abuse Patient Records regulations: The Federal rules restrict any use of the information to criminally investigate or prosecute any alcohol or drug abuse patient.[facility] CenterIn the event this information is protected by the Federal Confidentiality of Alcohol and Drug Abuse Patient Records regulations: The Federal rules restrict any use of the information to criminally investigate or prosecute any alcohol or drug abuse patient.[facility] CenterIn the event this information is protected by the Federal Confidentiality of Alcohol and Drug Abuse Patient Records regulations: The Federal rules restrict any use of the information to criminally investigate or prosecute any alcohol or drug abuse patient.[facility] CenterIn the event this information is protected by the Federal Confidentiality of Alcohol and Drug Abuse Patient Records regulations: The Federal rules restrict any use of the information to criminally investigate or prosecute any alcohol or drug abuse patient.[facility] CenterIn the event this information is protected by the Federal Confidentiality of Alcohol and Drug Abuse Patient Records regulations: The Federal rules restrict any use of the information to criminally investigate or prosecute any alcohol or drug abuse patient.[facility] CenterIn the event this information is protected by the Federal Confidentiality of Alcohol and Drug Abuse Patient Records regulations: The Federal rules restrict any use of the information to criminally investigate or prosecute any alcohol or drug abuse patient.[facility] CenterIn the event this information is protected by the Federal Confidentiality of Alcohol and Drug Abuse Patient Records regulations: The Federal rules restrict any use of the information to criminally investigate or prosecute any alcohol or drug abuse patient.[facility] CenterIn the event this information is protected by the Federal Confidentiality of Alcohol and Drug Abuse Patient Records regulations: The Federal rules restrict any use of the information to criminally investigate or prosecute any alcohol or drug abuse patient.[facility] CenterIn the event this information is protected by the Federal Confidentiality of Alcohol and Drug Abuse Patient Records regulations: The Federal rules restrict any use of the information to criminally investigate or prosecute any alcohol or drug abuse patient.[facility] CenterIn the event this information is protected by the Federal Confidentiality of Alcohol and Drug Abuse Patient Records regulations: The Federal rules restrict any use of the information to criminally investigate or prosecute any alcohol or drug abuse patient.[facility] CenterIn the event this information is protected by the Federal Confidentiality of Alcohol and Drug Abuse Patient Records regulations: The Federal rules restrict any use of the information to criminally investigate or prosecute any alcohol or drug abuse patient.[facility] CenterIn the event this information is protected by the Federal Confidentiality of Alcohol and Drug Abuse Patient Records regulations: The Federal rules restrict any use of the information to criminally investigate or prosecute any alcohol or drug abuse patient.[facility] CenterIn the event this information is protected by the Federal Confidentiality of Alcohol and Drug Abuse Patient Records regulations: The Federal rules restrict any use of the information to criminally investigate or prosecute any alcohol or drug abuse patient.[facility] CenterIn the event this information is protected by the Federal Confidentiality of Alcohol and Drug Abuse Patient Records regulations: The Federal rules restrict any use of the information to criminally investigate or prosecute any alcohol or drug abuse patient.[facility] CenterIn the event this information is protected by the Federal Confidentiality of Alcohol and Drug Abuse Patient Records regulations: The Federal rules restrict any use of the information to criminally investigate or prosecute any alcohol or drug abuse patient.[facility] CenterIn the event this information is protected by the Federal Confidentiality of Alcohol and Drug Abuse Patient Records regulations: The Federal rules restrict any use of the information to criminally investigate or prosecute any alcohol or drug abuse patient.[facility] CenterIn the event this information is protected by the Federal Confidentiality of Alcohol and Drug Abuse Patient Records regulations: The Federal rules restrict any use of the information to criminally investigate or prosecute any alcohol or drug abuse patient.[facility] CenterIn the event this information is protected by the Federal Confidentiality of Alcohol and Drug Abuse Patient Records regulations: The Federal rules restrict any use of the information to criminally investigate or prosecute any alcohol or drug abuse patient.[facility] CenterIn the event this information is protected by the Federal Confidentiality of Alcohol and Drug Abuse Patient Records regulations: The Federal rules restrict any use of the information to criminally investigate or prosecute any alcohol or drug abuse patient.[facility] CenterIn the event this information is protected by the Federal Confidentiality of Alcohol and Drug Abuse Patient Records regulations: The Federal rules restrict any use of the information to criminally investigate or prosecute any alcohol or drug abuse patient.[facility] CenterIn the event this information is protected by the Federal Confidentiality of Alcohol and Drug Abuse Patient Records regulations: The Federal rules restrict any use of the information to criminally investigate or prosecute any alcohol or drug abuse patient.[facility] CenterIn the event this information is protected by the Federal Confidentiality of Alcohol and Drug Abuse Patient Records regulations: The Federal rules restrict any use of the information to criminally investigate or prosecute any alcohol or drug abuse patient.[facility] CenterIn the event this information is protected by the Federal Confidentiality of Alcohol and Drug Abuse Patient Records regulations: The Federal rules restrict any use of the information to criminally investigate or prosecute any alcohol or drug abuse patient.[facility] CenterIn the event this information is protected by the Federal Confidentiality of Alcohol and Drug Abuse Patient Records regulations: The Federal rules restrict any use of the information to criminally investigate or prosecute any alcohol or drug abuse patient.[facility] CenterIn the event this information is protected by the Federal Confidentiality of Alcohol and Drug Abuse Patient Records regulations: The Federal rules restrict any use of the information to criminally investigate or prosecute any alcohol or drug abuse patient.[facility] CenterIn the event this information is protected by the Federal Confidentiality of Alcohol and Drug Abuse Patient Records regulations: The Federal rules restrict any use of the information to criminally investigate or prosecute any alcohol or drug abuse patient.[facility] CenterIn the event this information is protected by the Federal Confidentiality of Alcohol and Drug Abuse Patient Records regulations: The Federal rules restrict any use of the information to criminally investigate or prosecute any alcohol or drug abuse patient.[facility] CenterIn the event this information is protected by the Federal Confidentiality of Alcohol and Drug Abuse Patient Records regulations: The Federal rules restrict any use of the information to criminally investigate or prosecute any alcohol or drug abuse patient.[facility] Medical CenterIn the event this information is protected by the Federal Confidentiality of Alcohol and Drug Abuse Patient Records regulations: The Federal rules restrict any use of the information to criminally investigate or prosecute any alcohol or drug abuse patient.[facility] CenterIn the event this information is protected by the Federal Confidentiality of Alcohol and Drug Abuse Patient Records regulations: The Federal rules restrict any use of the information to criminally investigate or prosecute any alcohol or drug abuse patient.[facility] CenterIn the event this information is protected by the Federal Confidentiality of Alcohol and Drug Abuse Patient Records regulations: The Federal rules restrict any use of the information to criminally investigate or prosecute any alcohol or drug abuse patient.[facility] CenterIn the event this information is protected by the Federal Confidentiality of Alcohol and Drug Abuse Patient Records regulations: The Federal rules restrict any use of the information to criminally investigate or prosecute any alcohol or drug abuse patient.[facility] CenterIn the event this information is protected by the Federal Confidentiality of Alcohol and Drug Abuse Patient Records regulations: The Federal rules restrict any use of the information to criminally investigate or prosecute any alcohol or drug abuse patient.[facility] CenterIn the event this information is protected by the Federal Confidentiality of Alcohol and Drug Abuse Patient Records regulations: The Federal rules restrict any use of the information to criminally investigate or prosecute any alcohol or drug abuse patient.[facility] CenterIn the event this information is protected by the Federal Confidentiality of Alcohol and Drug Abuse Patient Records regulations: The Federal rules restrict any use of the information to criminally investigate or prosecute any alcohol or drug abuse patient.[facility] CenterIn the event this information is protected by the Federal Confidentiality of Alcohol and Drug Abuse Patient Records regulations: The Federal rules restrict any use of the information to criminally investigate or prosecute any alcohol or drug abuse patient.[facility] CenterIn the event this information is protected by the Federal Confidentiality of Alcohol and Drug Abuse Patient Records regulations: The Federal rules restrict any use of the information to criminally investigate or prosecute any alcohol or drug abuse patient.[facility] CenterIn the event this information is protected by the Federal Confidentiality of Alcohol and Drug Abuse Patient Records regulations: The Federal rules restrict any use of the information to criminally investigate or prosecute any alcohol or drug abuse patient.[facility] CenterIn the event this information is protected by the Federal Confidentiality of Alcohol and Drug Abuse Patient Records regulations: The Federal rules restrict any use of the information to criminally investigate or prosecute any alcohol or drug abuse patient.[facility] CenterIn the event this information is protected by the Federal Confidentiality of Alcohol and Drug Abuse Patient Records regulations: The Federal rules restrict any use of the information to criminally investigate or prosecute any alcohol or drug abuse patient.[facility] CenterIn the event this information is protected by the Federal Confidentiality of Alcohol and Drug Abuse Patient Records regulations: The Federal rules restrict any use of the information to criminally investigate or prosecute any alcohol or drug abuse patient.[facility] CenterIn the event this information is protected by the Federal Confidentiality of Alcohol and Drug Abuse Patient Records regulations: The Federal rules restrict any use of the information to criminally investigate or prosecute any alcohol or drug abuse patient.[facility] CenterIn the event this information is protected by the Federal Confidentiality of Alcohol and Drug Abuse Patient Records regulations: The Federal rules restrict any use of the information to criminally investigate or prosecute any alcohol or drug abuse patient.[facility] CenterIn the event this information is protected by the Federal Confidentiality of Alcohol and Drug Abuse Patient Records regulations: The Federal rules restrict any use of the information to criminally investigate or prosecute any alcohol or drug abuse patient.[facility] CenterIn the event this information is protected by the Federal Confidentiality of Alcohol and Drug Abuse Patient Records regulations: The Federal rules restrict any use of the information to criminally investigate or prosecute any alcohol or drug abuse patient.[facility] CenterIn the event this information is protected by the Federal Confidentiality of Alcohol and Drug Abuse Patient Records regulations: The Federal rules restrict any use of the information to criminally investigate or prosecute any alcohol or drug abuse patient.[facility] CenterIn the event this information is protected by the Federal Confidentiality of Alcohol and Drug Abuse Patient Records regulations: The Federal rules restrict any use of the information to criminally investigate or prosecute any alcohol or drug abuse patient.[facility] CenterIn the event this information is protected by the Federal Confidentiality of Alcohol and Drug Abuse Patient Records regulations: The Federal rules restrict any use of the information to criminally investigate or prosecute any alcohol or drug abuse patient.[facility] CenterIn the event this information is protected by the Federal Confidentiality of Alcohol and Drug Abuse Patient Records regulations: The Federal rules restrict any use of the information to criminally investigate or prosecute any alcohol or drug abuse patient.[facility] CenterIn the event this information is protected by the Federal Confidentiality of Alcohol and Drug Abuse Patient Records regulations: The Federal rules restrict any use of the information to criminally investigate or prosecute any alcohol or drug abuse patient.[facility] CenterIn the event this information is protected by the Federal Confidentiality of Alcohol and Drug Abuse Patient Records regulations: The Federal rules restrict any use of the information to criminally investigate or prosecute any alcohol or drug abuse patient.[facility] CenterIn the event this information is protected by the Federal Confidentiality of Alcohol and Drug Abuse Patient Records regulations: The Federal rules restrict any use of the information to criminally investigate or prosecute any alcohol or drug abuse patient.[facility] CenterIn the event this information is protected by the Federal Confidentiality of Alcohol and Drug Abuse Patient Records regulations: The Federal rules restrict any use of the information to criminally investigate or prosecute any alcohol or drug abuse patient.[facility] CenterIn the event this information is protected by the Federal Confidentiality of Alcohol and Drug Abuse Patient Records regulations: The Federal rules restrict any use of the information to criminally investigate or prosecute any alcohol or drug abuse patient.[facility] CenterIn the event this information is protected by the Federal Confidentiality of Alcohol and Drug Abuse Patient Records regulations: The Federal rules restrict any use of the information to criminally investigate or prosecute any alcohol or drug abuse patient.[facility] CenterIn the event this information is protected by the Federal Confidentiality of Alcohol and Drug Abuse Patient Records regulations: The Federal rules restrict any use of the information to criminally investigate or prosecute any alcohol or drug abuse patient.[facility] CenterIn the event this information is protected by the Federal Confidentiality of Alcohol and Drug Abuse Patient Records regulations: The Federal rules restrict any use of the information to criminally investigate or prosecute any alcohol or drug abuse patient.[facility] CenterIn the event this information is protected by the Federal Confidentiality of Alcohol and Drug Abuse Patient Records regulations: The Federal rules restrict any use of the information to criminally investigate or prosecute any alcohol or drug abuse patient.[facility] CenterIn the event this information is protected by the Federal Confidentiality of Alcohol and Drug Abuse Patient Records regulations: The Federal rules restrict any use of the information to criminally investigate or prosecute any alcohol or drug abuse patient.[facility] CenterIn the event this information is protected by the Federal Confidentiality of Alcohol and Drug Abuse Patient Records regulations: The Federal rules restrict any use of the information to criminally investigate or prosecute any alcohol or drug abuse patient.[facility] CenterIn the event this information is protected by the Federal Confidentiality of Alcohol and Drug Abuse Patient Records regulations: The Federal rules restrict any use of the information to criminally investigate or prosecute any alcohol or drug abuse patient.[facility] CenterIn the event this information is protected by the Federal Confidentiality of Alcohol and Drug Abuse Patient Records regulations: The Federal rules restrict any use of the information to criminally investigate or prosecute any alcohol or drug abuse patient.[facility] CenterIn the event this information is protected by the Federal Confidentiality of Alcohol and Drug Abuse Patient Records regulations: The Federal rules restrict any use of the information to criminally investigate or prosecute any alcohol or drug abuse patient.[facility] CenterIn the event this information is protected by the Federal Confidentiality of Alcohol and Drug Abuse Patient Records regulations: The Federal rules restrict any use of the information to criminally investigate or prosecute any alcohol or drug abuse patient.[facility] CenterIn the event this information is protected by the Federal Confidentiality of Alcohol and Drug Abuse Patient Records regulations: The Federal rules restrict any use of the information to criminally investigate or prosecute any alcohol or drug abuse patient.[facility] CenterIn the event this information is protected by the Federal Confidentiality of Alcohol and Drug Abuse Patient Records regulations: The Federal rules restrict any use of the information to criminally investigate or prosecute any alcohol or drug abuse patient.[facility] CenterIn the event this information is protected by the Federal Confidentiality of Alcohol and Drug Abuse Patient Records regulations: The Federal rules restrict any use of the information to criminally investigate or prosecute any alcohol or drug abuse patient.[facility] CenterIn the event this information is protected by the Federal Confidentiality of Alcohol and Drug Abuse Patient Records regulations: The Federal rules restrict any use of the information to criminally investigate or prosecute any alcohol or drug abuse patient.[facility] CenterIn the event this information is protected by the Federal Confidentiality of Alcohol and Drug Abuse Patient Records regulations: The Federal rules restrict any use of the information to criminally investigate or prosecute any alcohol or drug abuse patient.[facility] CenterIn the event this information is protected by the Federal Confidentiality of Alcohol and Drug Abuse Patient Records regulations: The Federal rules restrict any use of the information to criminally investigate or prosecute any alcohol or drug abuse patient.[facility] Reason for Visit (unrecogniz ed section and content) Reason Comments ? ACID REFLUX burning sensation in throat after eating, throw up in my mouth, but all acid, mucus build up in my chest that will gag me when it comes up. Onset times 1 month. 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 Reason Comments Nausea sob, fever x [...] x4 days Reason Comments Well Child 17yr [facility] Reason Comments Orders Reason Comments Radiology US Specialty Diagnoses / Procedures Referred By Contac t Referred To Contact [facility] Diagnoses Pelvic pain in female Procedures US FEMALE PELVIS TRANSVAG US TRANSVAGINAL Delfina Watson APRN.CN [address] [place] [address] [place] [id number] Referral ID Status Reason Start Date Expiration Date V isits Requested Visits Authorized [id number] Closed Auto-Generate d Referral 05/03/2023 06/01/2024 1 [...] Referred By Contac t Referred To Contact [facility] Diagnoses Encounter for care in first trimester of first 7 weeks gestation of Procedures NUCHAL TRANSLUCENCY WHI US NUCHAL TRANSLUCENCY 1ST GESTATION Nilda Stiles APRN.PCB DESIGNER [address] [place] [address] [facility] [address] [place] [id number] Referral ID Status Reason Start Date Expiration Date V isits Requested Visits Authorized [id number] Closed Auto-Generate d Referral 02/21/2024 02/20/2025 1 1 Reason Onset Date Comments Refill Request 04/10/2024 Reason Onset Date Comments Care 04/27/2024 Reason Comments Question (OB Question) Reason Onset Date Comments Care 05/25/2024 Specialty Diagnoses / Procedures Referred By Contac t Referred To Contact [facility] Diagnoses Supervision of normal first teen in first trimester 13 weeks gestation of Obesity in Procedures OBSTETRIC ULTRASOUND WHI US PREG UTERUS AFTER 1ST TRIMEST 1 GESTATION Delfina Watson APRN.CNM [address] [place] [place] [address] Phone: tel: fax: [address] [address] Referral ID Status Reason Start Date Expiration Date V isits Requested Visits Authorized [id number] Closed Auto-Generate d Referral 04/03/2024 04/03/2025 1 [...] Care Teams (unrecognized sec tion and content) Drawbridge Tender Relationship Specialty Start Date End Date Que Chavez MD [address] [place] [address] PCP - General Pediatrics 01/19/17 Drawbridge Tender Relationship Specialty Start Date End Date Que Chavez MD [address] [place] [address] PCP - General Pediatrics 01/19/17 Drawbridge Tender Relationship Specialty Start Date End Date Que Chavez MD [address] [place] [address] PCP - General Pediatrics 01/19/17 Drawbridge Tender Relationship Specialty Start Date End Date Que Chavez MD [address] [place] [address] PCP - General Pediatrics 01/19/17 Drawbridge Tender Relationship Specialty Start Date End Date Que Chavez MD [address] [place] [address] [place] [address] PCP - General Pediatrics 01/19/17 Drawbridge Tender Relationship Specialty Start Date End Date Que Chavez MD [address] [place] [address] PCP - General Pediatrics 01/19/17 Drawbridge Tender Relationship Specialty Start Date End Date Que Chavez MD [address] [place] [address] PCP - General Pediatrics 01/19/17 Drawbridge Tender Relationship Specialty Start Date End Date Que Chavez MD [address] [place] [address] PCP - General Pediatrics 01/19/17 Drawbridge Tender Relationship Specialty Start Date End Date Que Chavez MD [address] [place] [address] PCP - General Pediatrics 01/19/17 Drawbridge Tender Relationship Specialty Start Date End Date Que Chavez MD [address] [place] [address] PCP - General Pediatrics 01/19/17 Drawbridge Tender Relationship Specialty Start Date End Date Que Chavez MD [address] [place] [address] PCP - General Pediatrics 01/19/17 Drawbridge Tender Relationship Specialty Start Date End Date Que Chavez MD [address] [place] [address] PCP - General Pediatrics 01/19/17 Drawbridge Tender Relationship Specialty Start Date End Date Que Chavez MD [address] [place] [address] PCP - General Pediatrics 01/19/17 Drawbridge Tender Relationship Specialty Start Date End Date Que Chavez MD [address] [place] [address] PCP - General Pediatrics 01/19/17 Drawbridge Tender Relationship Specialty Start Date End Date Que Chavez MD [address] [place] [address] PCP - General Pediatrics 01/19/17 Drawbridge Tender Relationship Specialty Start Date End Date Que Chavez MD [address] [place] [address] PCP - General Pediatrics 01/19/17 Drawbridge Tender Relationship Specialty Start Date End Date Que Chavez MD [address] [place] [address] PCP - General Pediatrics 01/19/17 Drawbridge Tender Relationship Specialty Start Date End Date Que Chavez MD [address] [place] [address] PCP - General Pediatrics 01/19/17 Drawbridge Tender Relationship Specialty Start Date End Date Que Chavez MD [address] [place] [address] PCP - General Pediatrics 01/19/17 Drawbridge Tender Relationship Specialty Start Date End Date Que Chavez MD [address] [place] [address] PCP - General Pediatrics 01/19/17 Drawbridge Tender Relationship Specialty Start Date End Date Que Chavez MD [address] [place] [address] PCP - General Pediatrics 01/19/17 Drawbridge Tender Relationship Specialty Start Date End Date Que Chavez MD [address] [place] [address] PCP - General Pediatrics 01/19/17 Drawbridge Tender Relationship Specialty Start Date End Date Que Chavez MD [address] [place] [address] PCP - General Pediatrics 01/19/17 Drawbridge Tender Relationship Specialty Start Date End Date Que Chavez MD [address] [place] [address] PCP - General Pediatrics 01/19/17 Drawbridge Tender Relationship Specialty Start Date End Date Que Chavez MD [address] [place] [address] PCP - General Pediatrics 01/19/17 Drawbridge Tender Relationship Specialty Start Date End Date Que Chavez MD [address] [place] [address] PCP - General Pediatrics 01/19/17 Drawbridge Tender Relationship Specialty Start Date End Date Ruiz Vega DO [address] [place] [address] PCP - General Family Medicine 08/13/24 Drawbridge Tender Relationship Specialty Start Date End Date Ruiz Vega DO [address] [place] [address] PCP - General Family Medicine 08/13/24 Maria Alejandra Morel, FLAKER TENDER.PCB DESIGNER [address] [place] [address] Newspaper Or Periodical Editor Family Medicine 08/16/24 Drawbridge Tender Relationship Specialty Start Date End Date Ruiz Vega DO [address] [place] [address] PCP - General Family Medicine 08/13/24 Maria Alejandra Morel, FLAKER TENDER.PCB DESIGNER [address] [place] [address] Newspaper Or Periodical Editor Family Medicine 08/16/24 Sheri Harrison, FLAKER TENDER.PCB DESIGNER [address] [facility] [address] Newspaper Or Periodical Editor Family Medicine 08/20/24 Team Status: Active Member Role/Relationship Status Dates Dr. Ruiz Vega DO Primary Care Provider Active Team Status: Inactive Member Role/Relationship Status Dates Dr. Ruiz Vega DO Primary Care Provider Active Start: September 04, 2024 End: September 04, 2024 Dr. Conrado Richardson MD Emergency Provider Active S tart: September 04, 2024 End: September 04, 2024 Drawbridge Tender Relationship Specialty Start Date End Date Ruiz Vega DO [address] [place] [address] PCP - General Family Medicine 08/13/24 Maria Alejandra Morel, FLAKER TENDER.PCB DESIGNER [address] [place] [address] Newspaper Or Periodical [facility] 08/16/24 Sheri Harrison, FLAKER TENDER.PCB DESIGNER [address] [place] [address] Newspaper Or Periodical EditorSt[facility] 08/20/24 Drawbridge Tender Relationship Specialty Start Date End Date Ruiz Vega DO [address] [place] [address] PCP - General Family Medicine 08/13/24 AdrielMaria Alejandra, FLAKER TENDER.PCB DESIGNER [address] [place] [address] Newspaper Or Periodical Editor Family Medicine 08/16/24 Sheri Harrison, FLAKER TENDER.PCB DESIGNER [address] [place] [address] Newspaper Or Periodical Editor Family Medicine 08/20/24 Drawbridge Tender Relationship Specialty Start Date End Date Ruiz Vega DO [address] [place] [address] PCP - General Family Medicine 08/13/24 Maria Alejandra Morel, FLAKER TENDER.PCB DESIGNER [address] [place] [address] Newspaper Or Periodical Editor Family Medicine 08/16/24 Sheri Harrison APRN.PCB DESIGNER [address] [place] [address] Newspaper Or Periodical Editor Family Medicine 08/20/24 Drawbridge Tender Relationship Specialty Start Date End Date Ruiz Vega DO [address] [place] [address] PCP - General Family Medicine 08/13/24 Maria Alejandra Morel, FLAKER TENDER.PCB DESIGNER [address] [place] [address] Newspaper Or Periodical Editor Family Medicine 08/16/24 Sheri Harrison FLAKER TENDER.PCB DESIGNER [address] [place] [address] Newspaper Or Periodical Editor Family Medicine 08/20/24 Drawbridge Tender Relationship Specialty Start Date End Date Ruiz Vega DO [address] [place] [address] PCP - General Family Medicine 08/13/24 Maria Alejandra Morel, FLAKER TENDER.PCB DESIGNER [address] [place] [address] Newspaper Or Periodical Editor Family Medicine 08/16/24 Sheri Harrison, FLAKER TENDER.PCB DESIGNER [address] [place] [address] Newspaper Or Periodical Editor Family Medicine 08/20/24 Drawbridge Tender Relationship Specialty Start Date End Date Ruiz Vega DO [address] [place] [address] PCP - General Family Medicine 08/13/24 Maria Alejandra Morel, FLAKER TENDER.PCB DESIGNER [address] [place] [address] Newspaper Or Periodical Editor Family Medicine 08/16/24 Sheri Harrison, FLAKER TENDER.PCB DESIGNER [address] [place] [address] Newspaper Or Periodical Editor Family Medicine 08/20/24 Drawbridge Tender Relationship Specialty Start Date End Date Ruiz Vega DO [address] [place] [address] PCP - General Family Medicine 08/13/24 Maria Alejandra Morel, FLAKER TENDER.PCB DESIGNER [address] [place] [address] Newspaper Or Periodical Editor Family Medicine 08/16/24 Sheri Harrison, FLAKER TENDER.PCB DESIGNER [address] [place] [address] Newspaper Or Periodical Editor Family Medicine 08/20/24 Drawbridge Tender Relationship Specialty Start Date End Date Ruiz Vega DO [address] [place] [address] PCP - General Family Medicine 08/13/24 Maria Alejandra Morel, FLAKER TENDER.PCB DESIGNER [address] [place], [place] [address] [facility] 08/16/24 Hunter Sherisusananh Cooper, FLAKER TENDER.PCB DESIGNER [address] [place], [place] [address] [facility] 08/20/24 Team Status: Inactive Member Role/Relationship Status [...] section and content) DATE CREATED AUTHOR 10/08/2024 [facility] DATE CREATED AUTHOR AUTHOR'S YTRONE ATLILLIAN 10/11/2024 [facility] FOR RECORDS PERTAINING TO PATIENTS WHO ARE [...] BE BASED ON THE PRIMARY CLINICAL RECORDS. [employer] provides no warranty or guarantee of the accuracy or completeness of information in this document.
--- OUTSIDE RECORDS SUMMARY | 2024-10-13 08:53 | XMS RPT_ITS | CCD ---
Author Organization [facility] Care Team Providers Care Psychiatry Physician Name Role Phone Que Chavez MD Primary Care Provider Unavailable Primary Care Provider Unavailbelkis e Ruiz Vega DO Primary Care Provider [facility] ACID MIXER.Maria Alejandra ALVES Unavailable [phone] [place] ACID MIXER.Sheri ALVES Unavailable [phone] Dr. Ruiz Vega DO Primary Care Provider Dylan MUIR, Dr. Camp Emergency Provider [phone] [place] Admitting Unavailable Vega, Ruiz [...] Attending Provider Delfina Watson CNM Attending Provider Allergies Allergy Classification Reported Allergen(s) Allergy Type Date of Onset Reaction(s) Facility (20 sources) Seasonal allergy; Translations: [SEASONAL ALLERGIES] Propensity to adverse reactions 8 Other: See Comments [facility] Medications Current Medications Medication Drug Class(es) Dates Sig (Normalized) Sig (Original) [id number] 200 actuat albuterol 0.09 mg/actuat metered dose [...] (FLONASE) 50 mcg/actuation nasal spray Use 1 Java in each nostril once daily. 1 Each 3 07/29/2023 02/21/2024 Discontinued Comment on above: Use 1 Java in each nostril once daily. Inhalational Spacing [...] 5 days. 15 tablet 10/31/2023 11/05/2023 Active Atoaet53-Syzh Fum-Folic Ac-Om3 (One A Day Women's Dha) 28 mg iron- 800 mcg combo pack (2 sources) Start: 02-24-2024 Wmeuka36-Gvyg Fum-Folic Ac-Om3 (One A Day Women's Dha) 28 mg iron- 800 mcg combo pack Active 1 NMA PO February 24, 2024 1:00am Start: 02-24-2024 Jkrmlm25-Zxha Fum-Folic Ac-Om3 (One A Day Women's Dha) 28 mg iron- 800 mcg combo pack Active NMA PO February 24, 2024 1:00am Zilmwbws-Ta-Xzl-Fe-FA tab (20 sources) Start: 04-27-2024 take 1 tablet by mouth once daily Tqjwigvc-Fy-Ztv-Fe-FA tab Take 1 tablet by mouth once daily. With folic acid and DHA as covered by insurance. 90 tablet 3 04/27/2024 Active Start: 04-27-2024 End: 07-26-2024 take 1 tablet by mouth once daily Ijwmquoh-Ks-Szs-Fe-FA tab Take 1 tablet by mouth once [...] 08/25/2023 10/31/2023 Discontinued 168 hr ethinyl estradiol 0.61435 mg/hr / norelgestromin 0.65476 mg/hr transdermal system (2 sources) Progestin, Estrogen [...] take 1 capsule by mouth once daily L.acid,cbxnz-rwwqrh-b actoferr (CLAIRVEE) 5 billion cell- 400 mcg DFE cpDR Take 1 capsule by mouth once daily. For 15 days out of the month. 10/31/2023 Discontinued take 1 capsule by mo uth once daily L.acid,unqnx-tktljh-azeiaooyd (CLAIRVEE) 5 billion cell- 400 mcg DFE cpDR Take 1 capsule by mouth once daily. For 15 days out of the month. Active take 1 capsule by mo uth once daily L.acid,civny-wezkwi-qiusfvmhy (CLAIRVEE) 5 billion cell- 400 mcg DFE [...] REFRIGERATED 30 capsule 11 07/29/2023 Active Lacto No.75-Mrrmvn-Brs-Larch 25B cell-25B cell-50 mg capsule (2 sources) Start: 10-04-2023 End: 10-12-2024 Lacto No.63-Rlifml-Crk-Larch 25B cell-25B cell-50 mg capsule Discontinued NMA PO October 04, 2023 12:00am October 12, 2024 11:37pm Start: 10-04-2023 Lacto No.76-Bi nfpn-Tkn-Jolmx 25B cell-25B cell-50 mg capsule Active NMA [...] Comment on above: Take 1 tablet by [facility] twice daily for 7 days. naproxen 500 [...] discharge during in third trimester ([facility])] Onset: 5 Episodic Other gastrointestinal disorders (1 source) Heartburn; Translations: [Heartburn during in third trimester ([facility])] Onset: Episodic Other inflammatory condition of skin [...] 5 Glucose Ql (U) Negative Neg mg/dL [facility] Interpretation and review of laboratory results Normal [facility] Protein.monoclonal (U) [Mass/Vol] Negative Neg mg/dL [facility] URINE OB DIP B/Oon 5 Glucose Ql (U) Negative Neg mg/dL [facility] Protein.monoclonal (U) [Mass/Vol] Negative Neg mg/dL [facility] URINE OB DIP B/Oon 5 Glucose Ql (U) Negative Neg mg/dL [facility] Interpretation and review of laboratory results Normal [facility] Protein.monoclonal (U) [Mass/Vol] Negative Neg mg/dL [facility] ROUTINE, GROUP B ST REPTOCOCCUS BY PCRon 09-12-2024 ROUTINE, GROUP B STREPTOCOCCUS BY PCR Detected Abnormal [place] Comment on above: Performed By: #### G BPCR ####[facility] [id number] [place] [address] [place] [facility] URINE OB DIP B/Oon 5 Glucose Ql (U) Negative Neg mg/dL [facility] Protein.monoclonal (U) [Mass/Vol] trace Neg mg/dL [facility] 12 Lead EKGon 09-04-2024 12 Lead EKG [facility] Cardiovascular Services [address] [place] [address] 12 Lead EKG 09/04/24 1024 MR#: [id number] Acct: [id number] Name: AMIRAH WOODARD Rep #: [id number] : 2005 19 From: Flo Smith MD [...] Abnormal ECG Confirmed by FLO SMITH MD ([id number]), purchasing expeditor KAREN WATERS ([id number]) on 09/05/2024 1:39:37 PM Referred By: Confirmed By: FLO SMITH MD 09/05/24 1339 Date Flo Smith MD CC: Dr. Conrado Richardson MD; Dr. Ruiz Vega DO Signed Normal [facility] Absolute lymphocyte countOrd ered By: Conrado Richardson on 09-04-2024 Lymphocytes Auto (Unsp spec) [#/Vol] 1.97 10*3/uL 0.83-4.51 [facility] Absolute neutrophil countOrd ered By: Conrado Richardson on 09-04-2024 Neutrophils (Bld) [#/Vol] 8.4 10*3/uL High 2.0-7.7 [facility] Anion gap in Serum or Plasma Ordered By: Conrado Richardson on 09-04-2024 Anion gap [Moles/Vol] 11 mmol/L 5-15 [facility] Automated lymphocyte count a s percentage of total leukocytesOrdered By: Conrado Richardson on 09-04-2024 Lymphocytes/100 WBC Auto (Unsp spec) 16.7 % Low 19-41 [facility] BUN/creatinine ratioOrdered By: Conrado Richardson on 09-04-2024 Urea nitrogen/Creatinine [Mass ratio] 15.7 mg/mg 10- [facility] Basic Metabolic Profile (BMP )on 09-04-2024 BUN/CRE 15.7 RATIO Normal - [facility] Comment on above: Performed By: #### L 100.0100, L500.2500, L501.4021 #### [facility] [address] [place], [address] Calcium [Mass/Vol] 8.7 mg/dL Normal 7.6-11.0 [facility] Comment on above: Performed By: #### L 100.0100, L500.2500, L501.4021 #### [facility] [address] [place], [address] Chloride [Moles/Vol] 105 mmol/L Normal 98-108 [facility] Comment on above: Performed By: #### L 100.0100, L500.2500, L501.4021 #### [facility] [address] [place], [address] CO2 [Moles/Vol] 20.3 mmol/L Low 21.0-32.0 [facility] Comment on above: Performed By: #### L 100.0100, L500.2500, L501.4021 #### [facility] [address] [place], [address] Creatinine [Mass/Vol] 0.45 mg/dL Low 0.70-1.20 [facility] Comment on above: Performed By: #### L 100.0100, L500.2500, L501.4021 #### [facility] [address] [place], [address] ECRCL 226.86 ml/min Normal 50-250 [facility] Comment on above: Performed By: #### L 100.0100, L500.2500, L501.4021 #### [facility] [address] [place], [address] GAP 11 Normal 5-15 [facility] Comment on above: Performed By: #### L 100.0100, L500.2500, L501.4021 #### [facility] [address] [place], [address] GFR/1.73 sq M.predicted among non-blacks MDRD (S/P/Bld) [Vol rate/Area] 141 mL/min/{1.73_m2} Normal >60 [facility] Comment on above: Result Comment: mL/m in/1.73m2 CKD-EPI Creatinine Equation (2020) Performed By: #### L 100.0100, L500.2500, L501.4021 #### [facility] [address] [place], [address] Glucose [Mass/Vol] 91 mg/dL Normal 70-99 [facility] Comment on above: Performed By: #### L 100.0100, L500.2500, L501.4021 #### [facility] [address] [place], [address] Potassium [Moles/Vol] 3.8 mmol/L Normal 3.3-5.1 [facility] Comment on above: Performed By: #### L 100.0100, L500.2500, L501.4021 #### [facility] [address] [place], [address] Sodium [Moles/Vol] 137 mmol/L Normal 133-145 [facility] Comment on above: Performed By: #### L 100.0100, L500.2500, L501.4021 #### [facility] [address] [place], [address] Urea nitrogen [Mass/Vol] 7 mg/dL Normal 4-19 [facility] Comment on above: Performed By: #### L 100.0100, L500.2500, L501.4021 #### [facility] [address] [place], [address] Basophil percentageOrdered B y: Conrado Richardson on 09-04-2024 Basophils/100 WBC (Bld) 0.5 % 0-1 [facility] CBC W/Diff, Automatedon Absolute Lymph 1.97 X10 3/uL Normal 0.83-4.51 [facility] Comment on above: Performed By: #### L 100.0100, L500.2500, L501.4021 #### [facility] [address] [place], [address] Absolute Neut 8.4 X10 3/uL High 2.0-7.7 [facility] Comment on above: Performed By: #### L 100.0100, L500.2500, L501.4021 #### [facility] [address] [place], [address] Basophils/100 WBC (Bld) 0.5 % Normal 0-1 [facility] Comment on above: Performed By: #### L 100.0100, L500.2500, L501.4021 #### [facility] [address] [place], [address] Eosinophils/100 WBC (Bld) 2.2 % Normal 0-5 [facility] Comment on above: Performed By: #### L 100.0100, L500.2500, L501.4021 #### [facility] [address] [place], [address] Erythrocyte distribution width (RBC) [Ratio] 13.2 % Normal 11.6-14.6 [facility] Comment on above: Performed By: #### L 100.0100, L500.2500, L501.4021 #### [facility] [address] [place], [address] Hematocrit (Bld) [Volume fraction] 35.4 % Low 37-47 [facility] Comment on above: Performed By: #### L 100.0100, L500.2500, L501.4021 #### [facility] [address] [place], [address] Hemoglobin (Bld) [Mass/Vol] 11.6 g/dL Low 12.0-15.0 [facility] Comment on above: Performed By: #### L 100.0100, L500.2500, L501.4021 #### [facility] [address] [place], [address] IG% 1.200 High 0.0-0.9 [facility] Comment on above: Result Comment: IG% - Immature Granulocytes (promyelocytes, myelocytes and metamyelocytes) > 1% indicates that a LEFT SHIFT is Present. Performed By: #### L 100.0100, L500.2500, L501.4021 #### [facility] [address] [place], [address] Lymphocytes/100 WBC (Bld) 16.7 % Low 19-41 [facility] Comment on above: Performed By: #### L 100.0100, L500.2500, L501.4021 #### [facility] [address] [place], [address] MCH (RBC) [Entitic mass] 27.5 pg Normal 27.0-32.0 [facility] Comment on above: Performed By: #### L 100.0100, L500.2500, L501.4021 #### [facility] [address] [place], [address] MCHC (RBC) [Mass/Vol] 32.8 g/dL Normal 32-36 [facility] Comment on above: Performed By: #### L 100.0100, L500.2500, L501.4021 #### [facility] [address] [place], [address] MCV (RBC) [Entitic vol] 83.9 fL Normal 81-99 [facility] Comment on above: Performed By: #### L 100.0100, L500.2500, L501.4021 #### [facility] [address] [place], [address] Monocytes/100 WBC (Bld) 8.8 % Normal 0-10 [facility] Comment on above: Performed By: #### L 100.0100, L500.2500, L501.4021 #### [facility] [address] [place], [address] Neutrophils/100 WBC (Bld) 70.6 % High 47-70 [facility] Comment on above: Performed By: #### L 100.0100, L500.2500, L501.4021 #### [facility] [address] [place], [address] Nucleated RBC (Bld) [#/Vol] 0 10*3/uL Normal 0-5 [facility] Comment on above: Performed By: #### L 100.0100, L500.2500, L501.4021 #### [facility] [address] [place], [address] Platelet mean volume (Bld) [Entitic vol] 9.4 fL Normal 6.2-12.0 [facility] Comment on above: Performed By: #### L 100.0100, L500.2500, L501.4021 #### [facility] [address] [place], [address] Platelets (Bld) [#/Vol] 256 10*3/uL Normal 150-450 [facility] Comment on above: Performed By: #### L 100.0100, L500.2500, L501.4021 #### [facility] [address] [place], [address] RBC (Bld) [#/Vol] 4.22 10*6/uL Normal 4.2-5.4 [facility] Comment on above: Performed By: #### L 100.0100, L500.2500, L501.4021 #### [facility] [address] [place], [address] RDW SD 40.2 fl Normal 35.1-43.9 [facility] Comment on above: Performed By: #### L 100.0100, L500.2500, L501.4021 #### [facility] [address] [place], [address] WBC (Bld) [#/Vol] 11.8 10*3/uL High 4.4-11.0 [facility] Comment on above: Performed By: #### L 100.0100, L500.2500, L501.4021 #### [facility] [address] [place], [address] Rodrick 09-04-2024 JOSELYNN Telephone (OBGYWM) AMIRAH WOODARD ([id number]) 3 F Date Time Provider Department 09/04/24 [...] sprays in each nostril once daily. - Syjrkoue-Ir-Auh-Fe-FA tab Take 1 tablet by mouth once [...] Status:Closed by KIA BRASHER on 09/04/24 Normal [place] CTA Chest W/WO Contraston CTA Chest W/WO Contrast [facility] Imaging Services [address] [place] [address] CTA Chest W/WO Contrast MR#: [id number] Acct: [id number] Name: AMIRAH WOODARD Rep #: [id number] : 2005 F 19 From: Gurjit Moreno MD PCP: Dr. Ruiz Vega, DO Status: REG ER Study: CTA Chest W/WO Contrast Date of Exam: 09/04/24 Exam# [id number] Ordering Dr: Conrado Richardson MD PROCEDURE: CTA [...] dissection No acute pulmonary process Reading Location: [facility] CC: Dr. Conrado Richardson MD; Dr. Ruiz Vega DO Kick Press Operator: Signed Normal [facility] Carbon dioxide, total [Moles /volume] in Central venous bloodOrdered By: Conrado Richardson on 09-04-2024 CO2 [Moles/Vol] 20.3 mmol/L Low 21.0-32.0 [facility] Chloride assayOrdered By: Wilson Richardson on 09-04-2024 Chloride [Moles/Vol] 105 mmol/L 98-108 [facility] Emergency Department Summary on 09-04-2024 Emergency Department Summary [facility] Medical Records Department [address] [place] [address] Emergency Department Summary 09/04/24 MR#: [id number] Acct: [id number] Name: AMIRAH WOODARD Rep #: [id number] : 2005 19 From: Conrado Richardson MD [...] discomfort that was diffuse. Lightheadedness. 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 Adrienne Marin. Who [...] Factors: Negative for Marfan's Syndrome or Hypertension [facility] Medical History Left ankle pain Home Medications ???Medication ???Instructions ???Recorded ???Last Taken ???Type Lactobacillus 25 billion cap PO 10/04/23 Unknown History cell-Bifido 25 billion lakk-DGT-juvjo capsule albuterol sulfate 90 mcg/actuation inhalation 10/04/23 [...] the ankles bilaterally. Dorsi plantarflexion intact. Normal facilities planner strength. Normal radial pulses. Back nontender. Neurologically [...] for ob (more content not included)... Normal [facility] Eosinophil percentageOrdered By: Conrado Richardson on 09-04-2024 Eosinophils/100 WBC (Bld) 2.2 % 0-5 [facility] Erythrocyte distribution wid th ratioOrdered By: Conrado Richardson on 09-04-2024 Erythrocyte distribution width (RBC) [Ratio] 13.2 % 11.6-14.6 [facility] Erythrocyte distribution wid th standard deviationOrdered By: Conrado Richardson on 09-04-2024 Erythrocyte distribution width (RBC) [Ratio] 40.2 fl 35.1-43.9 [facility] Glomerular filtration rate ( GFR) estimation/1.73 sq m using serum, plasma, or whole bOrdered By: Conrado Richardson on 09-04-2024 GFR/1.73 sq M.predicted among non-blacks MDRD (S/P/Bld) [Vol rate/Area] 141 mL/min/{1.73_m2} >60 [facility] Comment on above: mL/min/1.73m2 CKD-EP I Creatinine Equation (2020) Hematocrit Auto (Bld) [Volum e fraction]Ordered By: Conrado Richardson on 09-04-2024 Hematocrit (Bld) [Volume fraction] 35.4 % Low 37-47 [facility] Hemoglobin measurementOrdere d By: Conrado Richardson on 09-04-2024 Hemoglobin (Bld) [Mass/Vol] 11.6 g/dL Low 12.0-15.0 [facility] Immature granulocytes/100 WB C Auto (Bld)Ordered By: Conrado Richardson on 09-04-2024 Immature granulocytes/100 WBC (Bld) 1.200 % High 0.0-0.9 [facility] Comment on above: IG% - Immature Granu locytes (promyelocytes, myelocytes and metamyelocytes) > 1% indicates that a LEFT SHIFT is Present. L501.4021on 09-04-2024 Trop T High Sen 7 ng/L Normal <=14 [facility] Comment on above: Performed By: #### L 100.0100, L500.2500, L501.4021 #### [facility] [address] [place], [place], [address] MCV (mean corpuscular volume ) determinationOrdered By: Conrado Richardson on 09-04-2024 MCV (RBC) [Entitic vol] 83.9 fL 81-99 [facility] Mean corpuscular hemoglobin (MCH) determinationOrdered By: Conrado Richardson on 09-04-2024 MCH (RBC) [Entitic mass] 27.5 pg 27.0-32.0 [facility] Mean corpuscular hemoglobin concentration (MCHC) determinationOrdered By: Conrado Richardson on 09-04-2024 MCHC (RBC) [Mass/Vol] 32.8 g/dL 32-36 [facility] Mean platelet volume determi nationOrdered By: Conrado Richardson on 09-04-2024 Platelet mean volume (Bld) [Entitic vol] 9.4 fL 6.2-12.0 [facility] Monocyte percentageOrdered B y: Conrado Richardson on 09-04-2024 Monocytes/100 WBC (Bld) 8.8 % 0-10 [facility] Neutrophil percentageOrdered By: Conrado Richardson on 09-04-2024 Neutrophils/100 WBC (Bld) 70.6 % High 47-70 [facility] Nucleated red blood cell per centageOrdered By: Conrado Richardson on 09-04-2024 Nucleated RBC/100 WBC (Bld) [Ratio] 0 % 0-5 [facility] Platelet countOrdered By: Wilson Richardson on 09-04-2024 Platelets (Bld) [#/Vol] 256 10*3/uL 150-450 [facility] Potassium measurement (mass/ volume)Ordered By: Conrado Richardson on 09-04-2024 Potassium (Unsp spec) [Mass/Vol] 3.8 mmol/L 3.3-5.1 [facility] RBC Auto (Bld) [#/Vol]Ordere d By: Conrado Richardson on 09-04-2024 RBC (Bld) [#/Vol] 4.22 10*6/uL 4.2-5.4 [facility] Serum creatinine measurement (mass/volume)Ordered By: Conrado Richardson on 09-04-2024 Creatinine [Mass/Vol] 0.45 mg/dL Low 0.70-1.20 [facility] Serum glucose measurement (m ass/volume)Ordered By: Conrado Richardson on 09-04-2024 Glucose [Mass/Vol] 91 mg/dL 70-99 [facility] Serum or plasma calcium tra urement (mass/volume)Ordered By: Conrado Richardson on 09-04-2024 Calcium [Mass/Vol] 8.7 mg/dL 7.6-11.0 [facility] Serum or plasma urea nitroge n measurement (mass/volume)Ordered By: Conrado Richardson on 09-04-2024 Urea nitrogen [Mass/Vol] 7 mg/dL 4-19 [facility] Sodium levelOrdered By: Conrado Richardson on 09-04-2024 Sodium [Moles/Vol] 137 mmol/L 133-145 [facility] Troponin T.cardiac [Mass/vol ume] in Serum or Plasma by High sensitivity methodOrdered By: Conrado Richardson on 09-04-2024 Troponin T.cardiac High sensitivity method [Mass/Vol] 7 ng/L <14 [facility] URINE OB DIP B/Oon 5 Glucose Ql (U) Negative Neg mg/dL [facility] Protein.monoclonal (U) [Mass/Vol] trace Neg mg/dL [facility] White blood cell (WBC) count Ordered By: Conrado Richardson on 09-04-2024 WBC (Bld) [#/Vol] 11.8 10*3/uL High 4.4-11.0 [facility] URINE OB DIP B/Oon 5 Glucose Ql (U) Negative Neg mg/dL [facility] Interpretation and review of laboratory results Normal [facility] Protein.monoclonal (U) [Mass/Vol] Negative Neg mg/dL [facility] CNOVon 08-13-2024 CNOV Office Visit (FAMPWS ) SHAHZAD WOODARDJOSHAileen Clifford ([id number]) 3 F Date Time Provider Department 08/13/24 9:20 [facility] During your visit today, we recorded [...] Rhonda. - Planning a vaginal delivery at [place]. - Taking vitamins; denies nausea or emesis. 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 Recording using [employer] software for draft documentation of the visit was discussed with the patient/authorized exhibit display representative; all questions welcomed and answered. Patient/authorized exhibit display representative agreed to proceed Allergies As of [...] (CLARITIN ORA (more content not included)... Normal [place] CNPNon 08-06-2024 CNPN Telephone (OBGYWM) AMIRAH WOODARD ([id number]) 3 F Date Time Provider Department 08/06/24 [place] OBGYWM During your visit today, we recorded the following information about you: Carolien Mora RN 08/06/2024 12:39 PM Signed Breast pump request received from [employer]. Order to provider to sign. JIA Shane [...] sprays in each nostril once daily. 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 - Xehaksuh-Lb-Otf-Fe-FA tab Take 1 tablet by mouth once [...] Status:Closed by TIO HUTCHISON on 08/03/24 Normal [place] BILE ACIDS, TOTALon 08-02-19 25 Bile acid [Moles/Vol] 5.3 umol/L Normal <13.6 [facility] Comment on above: Order Comment: Speci men Type: SWAB Ordering Facility: [facility] Address: [address] [place] [address] Result Comment: Refe rence interval applies to [...] Performed By: #### C VTV, BVAMP #### [facility] CLIA [id number] [address] [place], [place] [id number] [place] CBC W Auto Differential pane l (Bld)on 08-01-2024 Basophils (Bld) [#/Vol] 0.09 10*3/uL [facility] Basophils/100 WBC (Bld) 0.6 % [facility] Differential cell count method Nom (Bld) Auto [facility] Eosinophils (Bld) [#/Vol] 0.82 10*3/uL High [facility] Eosinophils/100 WBC (Bld) 5.8 % [facility] Erythrocyte distribution width (RBC) [Ratio] 12.6 % 11.5 - 15.0 % [facility] Hematocrit (Bld) [Volume fraction] 36.5 % 36.0 - 46.0 % [facility] Hemoglobin (Bld) [Mass/Vol] 12 g/dL 11.5 - 15.5 g/dL [facility] Immature granulocytes (Bld) [#/Vol] 0.25 10*3/uL High [facility] Immature granulocytes/100 WBC (Bld) 1.8 % [facility] Interpretation and review of laboratory results Abnormal [facility] Lymphocytes (Bld) [#/Vol] 2.2 10*3/uL [facility] Lymphocytes/100 WBC (Bld) 15.6 % [facility] MCH (RBC) [Entitic mass] 28 pg 26.0 - 34.0 pg [facility] MCHC (RBC) [Mass/Vol] 32.9 g/dL 30.5 - 36.0 g/dL [facility] MCV (RBC) [Entitic vol] 85.3 fL 80.0 - 100.0 fL [facility] Monocytes (Bld) [#/Vol] 0.92 10*3/uL High [facility] Monocytes/100 WBC (Bld) 6.5 % [facility] Neutrophils (Bld) [#/Vol] 9.86 10*3/uL High [facility] Neutrophils/100 WBC (Bld) 69.7 % [facility] Nucleated RBC (Bld) [#/Vol] [facility] Nucleated RBC/100 WBC (Bld) [Ratio] 0 % /100 WBC [facility] Platelet mean volume (Bld) [Entitic vol] 9.1 fL 9.0 - 12.7 fL [facility] Platelets (Bld) [#/Vol] 282 10*3/uL [facility] RBC (Bld) [#/Vol] 4.28 10*6/uL 3.90 - 5.2 0 m/uL [facility] WBC (Bld) [#/Vol] 14.14 10*3/uL High [facility] Basophils (Bld) [#/Vol] 0.09 10*3/uL Normal <0.11 [place] Comment on above: Order Comment: Speci men Type: BLOOD SPECIMENOrdering Facility: [facility] Address: [address] [place], [place] [address] Performed By: #### 5 7021-8 ####[facility] [id number] [place] [address] [place] [place] Basophils/100 WBC (Bld) 0.6 % Normal [place] Comment on above: Order Comment: Speci men Type: BLOOD SPECIMENOrdering Facility: [facility] Address: [address] [place] [address] Performed By: #### 5 7021-8 ####[facility] [id number] [place] [address] [place] Differential cell count method Nom (Bld) Auto Normal [place] Comment on above: Order Comment: Speci men Type: BLOOD SPECIMENOrdering Facility: [facility] Address: [address] [place] [address] Performed By: #### 5 7021-8 ####[facility] [id number] [place] [address] [place] Eosinophils (Bld) [#/Vol] 0.82 10*3/uL High <0.46 [place] Comment on above: Order Comment: Speci men Type: BLOOD SPECIMENOrdering Facility: [facility] Address: [address] [place] [address] Performed By: #### 5 7021-8 ####[facility] [id number] [place] [address] [place] Eosinophils/100 WBC (Bld) 5.8 % Normal [place] Comment on above: Order Comment: Speci men Type: BLOOD SPECIMENOrdering Facility: [facility] Address: [address] [place] [address] Performed By: #### 5 7021-8 ####[facility] [id number] [place] [address] [place] Erythrocyte distribution width (RBC) [Ratio] 12.6 % Normal 11.5-15.0 [place] Comment on above: Order Comment: Speci men Type: BLOOD SPECIMENOrdering Facility: [facility] Address: [address] [place] [address] Performed By: #### 5 7021-8 ####[facility] NEAL [id number] [place] [address] [place] Hematocrit (Bld) [Volume fraction] 36.5 % Normal 36.0-46.0 [place] Comment on above: Order Comment: Speci men Type: BLOOD SPECIMENOrdering Facility: [facility] Address: [address] [place] [address] Performed By: #### 5 7021-8 ####[facility] [id number] [place] [address] [place] Hemoglobin (Bld) [Mass/Vol] 12.0 g/dL Normal 11.5-15.5 [place] Comment on above: Order Comment: Speci men Type: BLOOD SPECIMENOrdering Facility: [facility] Address: [address] [place] [address] Performed By: #### 5 7021-8 ####[facility] GARDENANNAHilario [id number] [place] [address] [place] Immature granulocytes (Bld) [#/Vol] 0.25 10*3/uL High <0.10 [place] Comment on above: Order Comment: Speci men Type: BLOOD SPECIMENOrdering Facility: [facility] Address: [address] [place] [address] Performed By: #### 5 7021-8 ####[facility] [id number] [place] [address] [place] Immature granulocytes/100 WBC (Bld) 1.8 % Normal [place] Comment on above: Order Comment: Speci men Type: BLOOD SPECIMENOrdering Facility: [facility] Address: [address] [place] [address] Performed By: #### 5 7021-8 ####[facility] MILLWNCLIA [id number] [place] [address] [place] Lymphocytes (Bld) [#/Vol] 2.20 10*3/uL Normal 1.00-4.00 [place] Comment on above: Order Comment: Speci men Type: BLOOD SPECIMENOrdering Facility: [facility] Address: [address] [place] [address] Performed By: #### 5 7021-8 ####[facility] [id number] [place] [address] [place] Lymphocytes/100 WBC (Bld) 15.6 % Normal [place] Comment on above: Order Comment: Speci men Type: BLOOD SPECIMENOrdering Facility: [facility] Address: [address] [place] [address] Performed By: #### 5 7021-8 ####[facility] [id number] [place] [address] [place] MCH (RBC) [Entitic mass] 28.0 pg Normal 26.0-34.0 [place] Comment on above: Order Comment: Speci men Type: BLOOD SPECIMENOrdering Facility: [facility] Address: [address] [place] [address] Performed By: #### 5 7021-8 ####[facility] [id number] [place] [address] [place] MCHC (RBC) [Mass/Vol] 32.9 g/dL Normal 30.5-36.0 [facility] Comment on above: Order Comment: Speci men Type: BLOOD SPECIMENOrdering Facility: [facility] Address: [address] [place] [address] Performed By: #### 5 7021-8 ####[facility]ENNCL[facility] [id number] [place] [address] [place] MCV (RBC) [Entitic vol] 85.3 fL Normal 80.0-100.0 [place] Comment on above: Order Comment: Speci men Type: BLOOD SPECIMENOrdering Facility: [facility] Address: [address] [place] [address] Performed By: #### 5 7021-8 ####[facility] [id number] [place] [address] [place] Monocytes (Bld) [#/Vol] 0.92 10*3/uL High <0.87 [place] Comment on above: Order Comment: Speci men Type: BLOOD SPECIMENOrdering Facility: [facility] Address: [address] [place] [address] Performed By: #### 5 7021-8 ####[facility] [id number] [place] [address] [place] Monocytes/100 WBC (Bld) 6.5 % Normal [place] Comment on above: Order Comment: Speci men Type: BLOOD SPECIMENOrdering Facility: [facility] Address: [address] [place] [address] Performed By: #### 5 7021-8 ####[facility] [id number] [place] [address] [place] Neutrophils (Bld) [#/Vol] 9.86 10*3/uL High 1.45-7.50 [place] Comment on above: Order Comment: Speci men Type: BLOOD SPECIMENOrdering Facility: [facility] Address: [address] [place] [address] Performed By: #### 5 7021-8 ####[facility]ENNCL[facility] [id number] [place] [address] [place] Neutrophils/100 WBC (Bld) 69.7 % Normal [place] Comment on above: Order Comment: Speci men Type: BLOOD SPECIMENOrdering Facility: [facility] Address: [address] [place] [address] Performed By: #### 5 7021-8 ####[facility] MICAHNGOC [id number] [place] [address] [place] Nucleated RBC (Bld) [#/Vol] 10*3/uL Normal <0.01 [place] Comment on above: Order Comment: Speci men Type: BLOOD SPECIMENOrdering Facility: [facility] Address: [address] [place] [address] Performed By: #### 5 7021-8 ####[facility] [id number] [place] [address] [place] Nucleated RBC/100 WBC (Bld) [Ratio] 0.0 /100 WBC Normal [place] Comment on above: Order Comment: Speci men Type: BLOOD SPECIMENOrdering Facility: [facility] Address: [address] [place] [address] Performed By: #### 5 7021-8 ####[facility] [id number] [place] [address] [place] Platelet mean volume (Bld) [Entitic vol] 9.1 fL Normal 9.0-12.7 [place] Comment on above: Order Comment: Speci men Type: BLOOD SPECIMENOrdering Facility: [facility] Address: [address] [place] [address] Performed By: #### 5 7021-8 ####[facility] [id number] [place] [address] [place] Platelets (Bld) [#/Vol] 282 10*3/uL Normal 150-400 [place] Comment on above: Order Comment: Speci men Type: BLOOD SPECIMENOrdering Facility: [facility] Address: [address] [place] [address] Performed By: #### 5 7021-8 ####[facility] [id number] [place] [address] [place] RBC (Bld) [#/Vol] 4.28 10*6/uL Normal 3.90-5.20 [facility] Comment on above: Order Comment: Speci men Type: BLOOD SPECIMENOrdering Facility: [facility] Address: [address] [place] [address] Performed By: #### 5 7021-8 ####[facility] [id number] [place] [address] [place] WBC (Bld) [#/Vol] 14.14 10*3/uL High 3.70-11.00 [facility] Comment on above: Order Comment: Speci men Type: BLOOD SPECIMENOrdering Facility: [facility] Address: [address] [place] [address] Performed By: #### 5 7021-8 ####[facility] [id number] [place] [address] [place] Comprehensive metabolic 2000 panelOrdered By: Jazmyn Joshua on 08-01-2024 Albumin [Mass/Vol] 3.4 g/dL Low 3.9 - 4.9 g/dL [facility] ALP [Catalytic activity/Vol] 110 U/L 34 - 123 U/L [facility] ALT [Catalytic activity/Vol] 12 U/L 7 - 38 U/L [facility] Anion gap [Moles/Vol] 12 mmol/L 8 - 15 mmol/L [facility] AST [Catalytic activity/Vol] 12 U/L Low 13 - 35 U/L [facility] Bilirubin [Mass/Vol] 0.3 mg/dL 0.2 - 1.3 mg/dL [facility] Calcium [Mass/Vol] 9 mg/dL 8.5 - 10. 2 mg/dL [facility] Chloride [Moles/Vol] 105 mmol/L 98 - 107 mmol/L [facility] CO2 [Moles/Vol] 19 mmol/L Low 22 - 30 mmol/L [facility] Creatinine [Mass/Vol] 0.53 mg/dL Low 0.58 - 0.96 mg/dL [facility] GFR/1.73 sq M.predicted among non-blacks MDRD (S/P/Bld) [Vol rate/Area] 137 mL/min/{1.73_m2} - PINF [facility] Comment on above: Estimated Glomerular Filtration [...] [Mass/Vol] 91 mg/dL 74 - 99 mg/dL [facility] Comment on above: The [place] Diabete s Association (ADA) provides guidance for [...] Standards of Medical Care in Diabetes 2016, [place] Diabetes Association. Diabetes Care. 2016.39(Suppl 1). Interpretation and review of laboratory results Abnormal [facility] Potassium [Moles/Vol] 3.9 mmol/L 3.7 - 5.1 mmol/L [facility] Protein [Mass/Vol] 6.3 g/dL 6.3 - 8.0 g/dL [facility] Sodium [Moles/Vol] 136 mmol/L 136 - 144 mmol/L [facility] Urea nitrogen [Mass/Vol] 9 mg/dL 7 - 21 mg/dL [facility] Comprehensive metabolic 2000 panelon 08-01-2024 Albumin [Mass/Vol] 3.4 g/dL Low 3.9-4.9 [facility] Comment on above: Order Comment: Speci men Type: SWAB [facility] Address: [address] [place] [address] Performed By: #### C VTV, BVAMP #### [facility] CLIA [id number] [address] [place] [address] [place] ALP [Catalytic activity/Vol] 110 U/L Normal 34-123 [place] Comment on above: Order Comment: Speci men Type: SWAB [facility] Address: [address] [place] [address] Performed By: #### C VTV, BVAMP #### [facility] CLIA [id number] [address] [place] [address] [place] ALT [Catalytic activity/Vol] 12 U/L Normal 7-38 [place] Comment on above: Order Comment: Speci men Type: SWAB [facility] Address: [address] [place] [address] Performed By: #### C VTV, BVAMP #### [facility] CLIA [id number] [address] [place] [address] [place] Anion gap [Moles/Vol] 12 mmol/L Normal 8-15 [facility] Comment on above: Order Comment: Speci men Type: SWAB [facility] Address: [address] [place] [address] Performed By: #### C VTV, BVAMP #### [facility] CLIA [id number] [address] [place] [address] [place] AST [Catalytic activity/Vol] 12 U/L Low 13-35 [place] Comment on above: Order Comment: Speci men Type: SWAB [facility] Address: [address] [place] [address] Performed By: #### C VTV, BVAMP #### [facility] CLIA [id number] [address] [place] [address] [place] Bilirubin [Mass/Vol] 0.3 mg/dL Normal 0.2-1.3 [facility] Comment on above: Order Comment: Speci men Type: SWAB [facility] Address: [address] [place] [address] Performed By: #### C VTV, BVAMP #### [facility] CLIA [id number] [address] [place] [address] [place] Calcium [Mass/Vol] 9.0 mg/dL Normal 8.5-10.2 [facility] Comment on above: Order Comment: Speci men Type: SWAB [facility] Address: [address] [place] [address] Performed By: #### C VTV, BVAMP #### [facility] CLIA [id number] [address] [place] [address] [place] Chloride [Moles/Vol] 105 mmol/L Normal 98-107 [facility] Comment on above: Order Comment: Speci men Type: SWAB [facility] Address: [address] [place] [address] Performed By: #### C VTV, BVAMP #### [facility] CLIA [id number] [address] [place] [address] [place] CO2 [Moles/Vol] 19 mmol/L Low 22-30 [place] Comment on above: Order Comment: Speci men Type: SWAB [facility] Address: [address] [place] [address] Performed By: #### C VTV, BVAMP #### [facility] CLIA [id number] [address] [place] [address] [place] Creatinine [Mass/Vol] 0.53 mg/dL Low 0.58-0.96 [facility] Comment on above: Order Comment: Speci men Type: SWAB [facility] Address: [address] [place] [address] Performed By: #### C VTV, BVAMP #### [facility] CLIA [id number] [address] [place] [address] [place] Creatinine and Glomerular filtration rate.predicted panel (S/P/Bld) 137 mL/min/1.73m??? Normal >=60 [place] Comment on above: Order Comment: Violeta alvarez Type: SWAB [facility] Address: [address] [place] [address] Result Comment: Ketty mated Glomerular Filtration Rate [...] Performed By: #### C VTV, BVAMP #### [facility] CLIA [id number] [address] [place] [address] [place] Glucose [Mass/Vol] 91 mg/dL Normal 74-99 [facility] Comment on above: Order Comment: Violeta alvarez Type: SWAB [facility] Address: [address] [place] [address] Result Comment: The [place] Diabetes Association (ADA) provides guidance for cutoff [...] Standards of Medical Care in Diabetes 2016, [place] Diabetes Association. Diabetes Care. 2016.39(Suppl 1). Performed By: #### C VTV, BVAMP #### [facility] CLIA [id number] [address] [place] [address] [place] Potassium [Moles/Vol] 3.9 mmol/L Normal 3.7-5.1 [facility] Comment on above: Order Comment: Speci men Type: SWAB [facility] Address: [address] [place] [address] Performed By: #### C VTV, BVAMP #### [facility] CLIA [id number] [address] [place] [address] [place] Protein [Mass/Vol] 6.3 g/dL Normal 6.3-8.0 [facility] Comment on above: Order Comment: Speci men Type: SWAB [facility] Address: [address] [place] [address] Performed By: #### C VTV, BVAMP #### [facility] CLIA [id number] [address] [place] [address] [place] Sodium [Moles/Vol] 136 mmol/L Normal 136-144 [facility] Comment on above: Order Comment: Speci men Type: SWAB [facility] Address: [address] [place] [address] Performed By: #### C VTV, BVAMP #### [facility] CLIA [id number] [address] [place] [address] [place] Urea nitrogen [Mass/Vol] 9 mg/dL Normal 7-21 [place] Comment on above: Order Comment: Speci men Type: SWAB [facility] Address: [address] [place] [address] Performed By: #### C VTV, BVAMP #### [facility] CLIA [id number] [address] [place] [address] [place] BACTERIAL VAGINOSIS NAATon 0 5- Lactobacillus crispatus+gasseri+imelda enii + Gardnerella vaginalis + Atopobium vaginae rRNA MEG+probe Ql (Vag fld) Not detected Normal Not detected [place] Comment on above: Order Comment: Speci men Type: SWABOrdering Facility: [facility] Address: [address] [place] [address] Performed By: #### C VTV, BVAMP ####[facility] [id number] [place] [address] [place] FRANCO/TRICHOMONAS NAATon 0 07-20-2024 C. glabrata RNA MGE+probe Ql (Vag fld) Not detected Normal Not detected [place] Comment on above: Order Comment: Speci men Type: SWABOrdering Facility: [facility] Address: [address] [place] [address] Performed By: #### C VTV, BVAMP ####[facility] [id number] [address] [place] [facility] Franco sp DNA MEG+probe Ql (Vag fld) Not detected Normal Not detected [place] Comment on above: Order Comment: Speci men Type: SWABOrdering Facility: [facility] Address: [address] [place] [address] Result Comment: The Franco species group target includes C. albicans, C. tropicalis, C. parapsilosis, and C. dubliniensis. Performed By: #### C VTV, BVAMP ####[facility] [id number] [address] [place] T. vaginalis DNA MEG+probe Ql (Unsp spec) Not detected Normal Not detected [place] Comment on above: Order Comment: Speci men Type: SWABOrdering Facility: [facility] Address: [address] [place] [address] Performed By: #### C VTV, BVAMP ####[facility] [id number] [place] [address] [place] CBC W Auto Differential pane l (Bld)on 07-20-2024 Basophils (Bld) [#/Vol] 0.07 10*3/uL Normal <0.11 [place] Comment on above: Order Comment: Speci men Type: BLOOD SPECIMEN [facility] Address: [address] [place] [address] Performed By: #### 5 7021-8 #### [facility] CLIA [id number] [address] [place] [address] [place] Basophils/100 WBC (Bld) 0.5 % Normal [place] Comment on above: Order Comment: Speci men Type: BLOOD SPECIMEN [facility]ing [facility] Address: [address] [place] [address] Performed By: #### 5 7021-8 #### [facility] CLIA [id number] [address] [place] [address] [place] Differential cell count method Nom (Bld) Auto Normal [place] Comment on above: Order Comment: Speci men Type: BLOOD SPECIMEN [facility]ing [facility] Address: [address] [place] [address] Performed By: #### 5 7021-8 #### [facility] CLIA [id number] [address] [place] [address] [place] Eosinophils (Bld) [#/Vol] 0.58 10*3/uL High <0.46 [place] Comment on above: Order Comment: Speci men Type: BLOOD SPECIMEN [facility]ing [facility]: [facility] Address: [address] [place] [address] Performed By: #### 5 7021-8 #### [facility] CLIA [id number] [address] [place] [address] [place] Eosinophils/100 WBC (Bld) 4.3 % Normal [place] Comment on above: Order Comment: Speci men Type: BLOOD SPECIMEN [facility]ing [facility]: [facility] Address: [address] [place] [address] Performed By: #### 5 7021-8 #### [facility] CLIA [id number] [address] [place] [address] [place] Erythrocyte distribution width (RBC) [Ratio] 12.7 % Normal 11.5-15.0 [place] Comment on above: Order Comment: Speci men Type: BLOOD SPECIMEN [facility]ing [facility]: [facility] Address: [address] [place] [address] Performed By: #### 5 7021-8 #### [facility] CLIA [id number] [address] [place] [address] [place] Hematocrit (Bld) [Volume fraction] 35.8 % Low 36.0-46.0 [place] Comment on above: Order Comment: Speci men Type: BLOOD SPECIMEN [facility]ing [facility] Address: [address] [place] [address] Performed By: #### 5 7021-8 #### [id number] [address] [place] [address] [place] Hemoglobin (Bld) [Mass/Vol] 11.8 g/dL Normal 11.5-15.5 [place] Comment on above: Order Comment: Speci men Type: BLOOD SPECIMEN [facility]ing [facility] Address: [address] [place] [address] Performed By: #### 5 7021-8 #### [facility] [id number] [address] [place] [address] [place] Immature granulocytes (Bld) [#/Vol] 0.15 10*3/uL High <0.10 [place] Comment on above: Order Comment: Speci men Type: BLOOD SPECIMEN [facility]ing [facility] Address: [address] [place] [address] Performed By: #### 5 7021-8 #### [facility] [id number] [address] [place] [address] [place] Immature granulocytes/100 WBC (Bld) 1.1 % Normal [place] Comment on above: Order Comment: Speci men Type: BLOOD SPECIMEN [facility]ing Facility: [facility] Address: [address] [place] [address] Performed By: #### 5 7021-8 #### [facility] CLIA [id number] [address] [place] [address] [place] Lymphocytes (Bld) [#/Vol] 2.19 10*3/uL Normal 1.00-4.00 [place] Comment on above: Order Comment: Speci men Type: BLOOD SPECIMEN [facility]ing Facility: [facility] Address: [address] [place] [address] Performed By: #### 5 7021-8 #### [facility] CLIA [id number] [address] [place] [address] [place] Lymphocytes/100 WBC (Bld) 16.1 % Normal [place] Comment on above: Order Comment: Speci men Type: BLOOD SPECIMEN [facility]ing Facility: [facility] Address: [address] [place] [address] Performed By: #### 5 7021-8 #### [facility] CLIA [id number] [address] [place] [address] [place] MCH (RBC) [Entitic mass] 28.7 pg Normal 26.0-34.0 [place] Comment on above: Order Comment: Speci men Type: BLOOD SPECIMEN Ordering Facility: [facility] Address: [address] [place] [address] Performed By: #### 5 7021-8 #### [facility] CLIA [id number] [address] [place] [address] [place] MCHC (RBC) [Mass/Vol] 33.0 g/dL Normal 30.5-36.0 [facility] Comment on above: Order Comment: Speci men Type: BLOOD SPECIMEN [facility]ing Facility: [facility] Address: [address] [place] [address] Performed By: #### 5 7021-8 #### [facility] CLIA [id number] [address] [place] [address] [place] MCV (RBC) [Entitic vol] 87.1 fL Normal 80.0-100.0 [place] Comment on above: Order Comment: Speci men Type: BLOOD SPECIMEN Ordering Facility: [facility] Address: [address] [place] [address] Performed By: #### 5 7021-8 #### [facility] CLIA [id number] [address] [place] [address] [place] Monocytes (Bld) [#/Vol] 0.86 10*3/uL Normal <0.87 [place] Comment on above: Order Comment: Speci men Type: BLOOD SPECIMEN Ordering Facility: [facility] Address: [address] [place] [address] Performed By: #### 5 7021-8 #### [facility] CLIA [id number] [address] [place] [address] [place] Monocytes/100 WBC (Bld) 6.3 % Normal [place] Comment on above: Order Comment: Speci men Type: BLOOD SPECIMEN Ordering Facility: [facility] Address: [address] [place] [address] Performed By: #### 5 7021-8 #### [facility] [facility] CLIA [id number] [address] [place] [address] [place] Neutrophils (Bld) [#/Vol] 9.79 10*3/uL High 1.45-7.50 [place] Comment on above: Order Comment: Speci men Type: BLOOD SPECIMEN Ordering Facility: [facility] Address: [address] [place] [address] Performed By: #### 5 7021-8 #### [facility] CLIA [id number] [address] [place] [address] [place] Neutrophils/100 WBC (Bld) 71.7 % Normal [place] Comment on above: Order Comment: Speci men Type: BLOOD SPECIMEN Ordering Facility: [facility] Address: [address] [place] [address] Performed By: #### 5 7021-8 #### [facility] CLIA [id number] [address] [place] [address] [place] Nucleated RBC (Bld) [#/Vol] 10*3/uL Normal <0.01 [place] Comment on above: Order Comment: Speci men Type: BLOOD SPECIMEN Ordering Facility: [facility] Address: [address] [place] [address] Performed By: #### 5 7021-8 #### [facility] CLIA [id number] [address] [place] [address] [place] Nucleated RBC/100 WBC (Bld) [Ratio] 0.0 /100 WBC Normal [place] Comment on above: Order Comment: Speci men Type: BLOOD SPECIMEN Ordering Facility: [facility] Address: [address] [place] [address] Performed By: #### 5 7021-8 #### [facility] CLIA [id number] [address] [place] [address] [place] Platelet mean volume (Bld) [Entitic vol] 9.0 fL Normal 9.0-12.7 [place] Comment on above: Order Comment: Speci men Type: BLOOD SPECIMEN Ordering Facility: [facility] Address: [address] [place] [address] Performed By: #### 5 7021-8 #### [facility] CLIA [id number] [address] [place] [address] [place] Platelets (Bld) [#/Vol] 269 10*3/uL Normal 150-400 [place] Comment on above: Order Comment: Speci men Type: BLOOD SPECIMEN Ordering Facility: [facility] Address: [address] [place] [address] Performed By: #### 5 7021-8 #### [facility] CLIA [id number] [address] [place] [address] [place] RBC (Bld) [#/Vol] 4.11 10*6/uL Normal 3.90-5.20 [facility] Comment on above: Order Comment: Speci men Type: BLOOD SPECIMEN Ordering Facility: [facility] Address: [address] [place] [address] Performed By: #### 5 7021-8 #### [facility] CLIA [id number] [address] [place] [address] [place] WBC (Bld) [#/Vol] 13.64 10*3/uL High 3.70-11.00 [facility] Comment on above: Order Comment: Speci men Type: BLOOD SPECIMEN Ordering Facility: [facility] Address: [address] [place] [address] Performed By: #### 5 7021-8 #### [facility] CLIA [id number] [address] [place] [address] [place] GESTATIONAL GLUCOSE SCREEN, 1-HOUR, 50 GRAM, NON-FASTINGon 07-20-2024 Glucose [Mass/Vol] 116 mg/dL Normal 74-134 [facility] Comment on above: Order Comment: Speci men Type: BLOOD SPECIMENOrdering Facility: [facility] Address: [address] [place] [address] Result Comment: [facility] Congress of Obstetricians and Gynecologists (Emir/Shon) guidelines state a gestational diabetes mellitus positive screen is made, in women not previously diagnosed with overt diabetes, when the 1 hr plasma glucose level is equal to or above 140 mg/dL. [facility] Wire Inserter and [facility] [place] recommends a 135 mg/dL cutoff. Performed By: #### G LTGST ####[facility] [id number] [place] [address] [place] Reagin and Treponema pallidu m IgG and IgM [Interp]on 07-20-2024 T. pallidum IgG+IgM IA Ql (S) Non-Reactive Normal Nonreactive [place] Comment on above: Order Comment: Speci antonio Type: BLOOD SPECIMENOrdering Facility: [facility] Address: [address] [place] [address] Performed By: #### 7 3752-8 ####[facility] LABIA [id number] [place] [address] [place] Reagin+T pallidum IgG+IgM Se rPl-Impon 07-20-2024 Reagin and Treponema pallidum IgG and IgM [Interp] Cannot exclude recent Treponemal infection if specimen collected within 7-10 days after appearance of suspect lesions or 2-3 weeks after an exposure. Clinical correlation is required. Normal [place] Comment on above: Order Comment: Violeta alvarez Type: BLOOD SPECIMENOrdering Facility: [facility] Address: [address] [place] [address] Performed By: #### 7 3752-8 ####[facility] LABIA [id number] [place] [address] [place] CNPSherine 07-19-2024 CNPN Telephone (OBGYWM) AMIRAH WOODARD ([id number]) 3 F Date Time Provider Department 07/19/24 CASTILLO MCKEON During your visit today, we recorded the following information about you: Kia Sheldon RN 07/19/2024 4:23 PM Signed 28w2d Patient called to report that she has not felt the baby move since this morning. Inquired if she did kick counts today. Patient has not. Advised that she would need to go to [facility] for evaluation given the office hours. Instructed patient how to do kick counts if she wanted to see how many movements she has in an hour first. Updated HANDP faxed to [facility]. JIA Bundy Rebecca L, MD 07/19/2024 4:27 PM Signed noted. thanks. Castillo Mckeon MD Allergies As of Date: 07/19/2024 Noted Allergy Reaction SEASONAL ALLERGIES 12/29/2017 14 - Other: See Comments Comments: Puffy itchy eyes and scratchy throat. Date Reviewed: 06/21/2024 Reviewed by: Shree Santos MA - Fully Assessed Reason for Visit: Decreased FM [Other] Prescriptions as of 07/19/2024 - Fuatvwtv-Wy-Kki-Fe-FA tab Take 1 tablet by mouth once [...] Status:Closed by VIVIAN ADAMS on 07/19/24 Normal [place] UA DIP, URINE (POC)on 2024 BILIRUBIN UA (POCT) Negative Negative [facility] CLARITY UA (POCT) Clear [facility] COLOR UA (POCT) Yellow [facility] GLUCOSE UA (POCT) Negative Negative mg/dL [facility] Hemoglobin Ql (U) Negative Negative [facility] Interpretation and review of laboratory results Abnormal [facility] KETONE UA (POCT) Negative Negative mg/dL [facility] LEUKOCYTES UA (POCT) Trace Abnormal Negative [facility] NITRITE UA (POCT) Negative [facility] PH UA (POCT) 7 4.5 - 8.0 [facility] Protein Ql (U) Negative Negative mg/dL [facility] SPECIFIC GRAVITY UA (POCT) 1.025 1.005 - 1.030 [facility] UROBILINOGEN UA (POCT) 0.2 Normal E.U./d L [facility] Location:[facility], [address] , [place], [place], [id number] [place] [address] POINT OF CARE [facility] Examination level ultrasound on 05-29-2024 Indication [...] 14 oz EFW by: Hadlock (HC-AC-FL) Extended Impregnator Helper 5.0 mm CM 4.4 mm 28% Nicolaides [...] normal LVOT view: normal 3-vessel view: normal 8-qsjuan-xafktik view: normal Heart / Thorax Situs: situs [...] Read By: Kermit Carmen M.D. 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 MD Monalisa Oleary Jennifer, JIA 05/01/2024 3:44 PM Signed Left message for patient to call office. Kia Sheldon RN Allergies As of Date: 05/01/2024 Noted Allergy Reaction SEASONAL ALLERGIES 12/29/2017 14 - Other: See Comments Comments: Puffy itchy eyes and scratchy throat. Date Reviewed: 04/27/2024 Reviewed by: Shree Santos MA - Fully Assessed Reason for Visit: Question (OB Question) [0462] Prescriptions as of 05/01/2024 - Avblbdik-Ar-Zye-Fe-FA tab Take 1 tablet by mouth once [...] Status:Closed by KIA SHELDON on 05/01/24 Normal [place] Emergency Department Summary on 04-28-2024 Emergency Department Summary [facility] Medical Records Department [address] [place] [address] Emergency Department Summary 04/28/24 MR#: [id number] Acct: [id number] Name: AMIRAH WOODARD Rep #: [id number] : 2005 18 From: Shraddha HAYDEN PCP: Dr. Que Chavez MD Status:DEP ER Location: ED HPI History of Present Illness Chief Complaint: General Illness Narrative Narrative: 18-year-old female is 16 weeks and developed congestion yesterday and this morning the fatigue, chills, body aches, headache and cough. She works in the [employer] and has been around patients with different respiratory viruses. 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 She also has urinary frequency today but no burning or hematuria. She has no abdominal pain or vaginal bleeding or discharge. PFSH PFS Medical History Left ankle pain Home Medications ???Medication ???Instructions ???Recorded ???Last Taken ???Type Lactobacillus 25 billion cap PO 10/04/23 Unknown History cell-Bifido 25 billion fcfr-FTH-yvsjr capsule albuterol sulfate 90 mcg/actuation inhalation 10/04/23 [...] Ox 100 Oxygen Delivery Method Room Air [facility] Narrative Medical decision making narrative: Differential: Viral [...] and recommended Tylenol and follow-up with her QUICK PRINT OPERATOR. She was discharged in stable condition. Lab Data Attestation: I reviewed the patient's lab results. Labs: Laboratory Results - last 24 hr 04/28/24 20:42 Urine Color Yellow Urine Clarity Clear Urine pH 6.0 Ur Specific Gay 1.015 Urine Protein 15 H Urine Glucose (UA) Normal Urine Ketones Negative Urine Occult Blood Negative Urine Nitrite Negative Urine Bilirubin Negative Urine Urobilinogen Normal Ur Leukocyte Esterase Negative Urine RBC 0 SEEN Urine WBC 0 SEEN Ur Squamous Epith Cells 0 SEEN Urine Bacteria 0 SEEN Urine Mucus 0 SEEN [facility] Lab Data Labs: Laborator (more content not included)... Normal [facility] M100.678on 04-28-2024 M100.678 SARS-CoV-2 (COVID 19 ) Negative INFLUENZA A Negative INFLUENZA B Negative RSV PCR Negative Normal [facility] Comment on above: Performed By: #### M 100.678 #### [facility] [address] [place], [address] Urinalysis, Completeon 04-28 RBC 0 SEEN Normal 0-5 [facility] Comment on above: Order Comment: CLEAN CATCH Performed By: #### L 400.0001 #### [facility] [address] [place], [address] BACTERIA 0 SEEN Normal None Seen [facility] Comment on above: Order Comment: CLEAN CATCH Performed By: #### L 400.0001 #### [facility] [address] [place], [address] EPI,SQUAMOUS 0 SEEN Normal 5-10 [facility] Comment on above: Order Comment: CLEAN CATCH Performed By: #### L 400.0001 #### [facility] [address] [place], [address] Mucus Ql (Urine sed) 0 SEEN Normal [facility] Comment on above: Order Comment: CLEAN CATCH Performed By: #### L 400.0001 #### [facility] [address] [place], [address] WBC 0 SEEN Normal 0-5 [facility] Comment on above: Order Comment: CLEAN CATCH Performed By: #### L 400.0001 #### [facility] [address] [place], [address] CNPNon 04-13-2024 JOSELYNN Telephone (OBJERRODWM) AMIRAH WOODARD ([id number]) 3 F Date Time Provider Department 04/13/24 LA DELC ASTILLO During your visit today, we recorded the [...] by LA DEL CASTILLO on 04/13/24 Normal [place] nuchal translucency me asured by Quentin 04-03-2024 Indication First trimester anatomic survey Maternal obesity, BMI >30 Impression REMOTE READ The patient is referred for a first trimester anatomy scan including nuchal translucency measurement as clinically indicated. - Single, live, intrauterine . - Segundo rump length measurement is consistent with the [...] view: normal 4-chamber view with color: normal 1-gukwed-capkldj view: normal Abdominal cord insertion: normal Stomach: [...] Read By: Marietta Burr M.D. MATERNAL MEDICINE [facility] Radiology Study observation (narrative) [facility] BACTERIAL VAGINOSIS NAATon 0 03-28-2024 Lactobacillus crispatus+gasseri+imelda enii + Gardnerella vaginalis + Atopobium vaginae rRNA MEG+probe Ql (Vag fld) Not detected Normal Not detected [place] Comment on above: Order Comment: Speci men Type: SWABOrdering Facility: [facility] Address: [address] [place] [address] Performed By: #### C VTV, BVAMP ####[facility] LABCLIA [id number] [place] [address] [place] FRANCO/TRICHOMONAS NAATon 0 03-28-2024 C. glabrata RNA MEG+probe Ql (Vag fld) Not detected Normal Not detected [place] Comment on above: Order Comment: Speci men Type: SWABOrdering Facility: [facility] Address: [address] [place] [address] Performed By: #### C VTV, BVAMP ####[facility] LABCLIA [id number] [address] [place] [address] [place] Franco sp DNA MEG+probe Ql (Vag fld) Detected Abnormal Not detected [place] Comment on above: Order Comment: Speci men Type: SWABOrdering Facility: [facility] Address: [address] [place] [address] Result Comment: The Franco species group target includes C. albicans, C. tropicalis, C. parapsilosis, and C. dubliniensis. Performed By: #### C VTV, BVAMP ####[facility] LABCLIA [id number] [address] [place] [place] T. vaginalis DNA MEG+probe Ql (Unsp spec) Not detected Normal Not detected [place] Comment on above: Order Comment: Speci men Type: SWABOrdering Facility: [facility] Address: [address] [place] [address] Performed By: #### C VTV, BVAMP ####[facility] LABCLIA [id number] [address] [place] CNPSherine 03-22-2024 JOSELYNN Telephone (OBGYWM) AMIRAH WOODARD ([id number]) 3 F Date Time Provider Department 03/22/24 [...] Date Reviewed: 03/19/2024 Reviewed by: Josiane Goodwin APRN.HAY SORTER - Fully Assessed Reason for Visit: Medication Question [5738] Prescriptions as of 03/22/2024 - amoxicillin (AMOXIL) [...] by LA DEL CASTILLO on 03/22/24 Normal [place] CNOVon 03-19-2024 CNOV Office Visit (PEDSWS ) AMIRAH WOODARD ([id number]) 3 F Date Time Provider Department 03/19/24 1:45 PM JOSIANE GOODWIN PEDSWS During your visit today, we recorded the following information about you: Temperature Pulse Respiration Weight 98.2 degrees 84/minute 16/minute 87.6 kg Josiane Goodwin, ACID MIXER.HAY SORTER 03/20/2024 9:03 PM Signed PEDIATRIC SICK VISIT [...] Date Reviewed: 03/19/2024 Reviewed by: Josiane Goodwin APRN.HAY SORTER - Fully Assessed Reason for Visit: Cough [...] 03/19/2024 Rou (more content not included)... Normal [place] CNOVon 03-13-2024 CN Office Visit (WSTR ) VANCEAMIRAH Darrin ([id number]) 3 F Date Time Provider Department 03/13/24 1:00 PM ROBERTO POWERS [facility] During your visit today, we recorded the following information about you: Temperature Pulse Respiration Blood pressure 97.6 degrees 87/minute 18/minute 110/72 Weight 87.1 kg Roberto Powers PA-C 03/13/2024 12:33 PM Signed This note was created using Tune Clout[employer]. Subjective Amirah Clifford Vance is a 18 [...] the patient was advised to see her QUICK PRINT OPERATOR for further evaluation and management. CLINICAL IMPRESSION: [...] Diagnosis:Sore throat [J02.9] Order(s):STREP A MOLECULAR (POC) [1070518] Order #: [id number]. #:[id number] Prescriptions as of 03/13/2024 - aspirin, enteric [...] teen in f*02/21/2024 Level of Service: OFFICE/OUTPATIENT [facility] 30 MINUTES [78119] Encounter Status:Closed by PRIYA, ROBERTO on 03/13/24 Normal [place] [id number] PLUSon 03-13-2024 Cell-free DNA./Cell-free DNA.total Dosage of chromosome-specific cfDNA (cfDNA) [Molar fraction] 18% Normal [place] Comment on above: Order Comment: Speci men Type: BLOOD SPECIMENOrdering Facility: [facility] Address: [facility] [place] [address] Performed By: #### M AT21 ####[facility] LABCLIA [id number] [place] [address] Chr 13+18+21+X+Y aneuploidy Dosage of chromosome-specific cfDNA Ql (cfDNA) Negative Normal [place] Comment on above: Order Comment: Speci men Type: BLOOD SPECIMENOrdering Facility: [facility] Address: [address] [place] [address] Performed By: #### M AT21 ####[facility] LABCLIA [id number] [place] [address] Chr 21 trisomy Dosage of chromosome-specific cfDNA Ql (cfDNA) Negative Normal [place] Comment on above: Order Comment: Speci men Type: BLOOD SPECIMENOrdering Facility: [facility] Address: [address] [place] [address] Performed By: #### M AT21 ####[facility] LABCLIA [id number] [place] [address] Chr X and Y aneuploidy risk Sequencing Ql (cfDNA) [Interp] Not detected Normal [place] Comment on above: Order Comment: Speci men Type: BLOOD SPECIMENOrdering Facility: [facility] Address: [address] [place] [address] Result Comment: Not Detected Not Detected Performed By: #### M AT21 ####[facility] LABCLIA [id number] [place] [address] Citation Jn (Reference lab test) Comment Normal [place] Comment on above: Order Comment: Speci men Type: BLOOD SPECIMENOrdering Facility: [facility] Address: [address] [place] [address] Result Comment: 1. P иван DILL, et al. Audra Med. 2012;14(3):296-305. 2. Jamel HARRELL et al. Prenat Diag. 2013;33(6):591-597. 3. Edvin C, et al. Clin Chem. 2015 Jun;61(4):608-616. 4. Jacey DILL, et al. Audra Med. 2011;13(11):913-920. 5. ACOG/SMFM Practice Bulletin No. 226, Dec 2019. Performed By: #### M AT21 ####[facility] LABCLIA [id number] [place] [address] Gestational age Estimated from conception date Spencer Normal [place] Comment on above: Order Comment: Speci men Type: BLOOD SPECIMENOrdering Facility: [facility] Address: [address] [place] [address] Performed By: #### M AT21 ####[facility] LABCLIA [id number] [place] [address] GESTATIONALAGE AGE > OR = 9W Yes Normal [place] Comment on above: Order Comment: Speci men Type: BLOOD SPECIMENOrdering Facility: [facility] Address: [address] [place] [address] Performed By: #### M AT21 ####[facility] LABCLIA [id number] [place] [address] Laboratory comment Jn (Report) Comment Normal [place] Comment on above: Order Comment: Speci men Type: BLOOD SPECIMENOrdering Facility: [facility] Address: [address] [place] [address] Result Comment: The MaterniT(R) 21 PLUS laboratory-developed test (LDT) analyzes circulating cell-free DNA from a maternal blood sample. This test is used for screening purposes and not diagnostic. Clinical correlation is recommended. Validation data on twin pregnancies is limited and the ability of this test to detect aneuploidy in higher multiple gestations has not yet been validated. Performed By: #### M AT21 ####[facility] LABCLIA [id number] [place] [address] research group director name Nom (Provider) Comment Normal [place] Comment on above: Order Comment: Speci men Type: BLOOD SPECIMENOrdering Facility: [facility] Address: [address] [place] [address] Result Comment: This specimen showed an expected representation of chromosome 21, 18 and 13 material. Clinical correlation is suggested. Comment Jean Claude Guzmán MD, PhD, Director, [employer] Performed By: #### M AT21 ####[facility] LABCLIA [id number] [place] [address] LIMITATIONS OF THE TEST Comment Normal [place] Comment on above: Order Comment: Speci men Type: BLOOD SPECIMENOrdering Facility: [facility] Address: [address], [place] [address] Result Comment: Steve shin the results of [...] Performed By: #### M AT21 ####[facility] LABCLIA [id number] [place] [id number] Monosomy X risk Dosage of chromosome-specific cfDNA Ql (Plasma cell-free+WBC DNA) [Interp] Not detected Normal [place] Comment on above: Order Comment: Speci men Type: BLOOD SPECIMENOrdering Facility: [facility] Address: [address] [place] [address] Performed By: #### M AT21 ####[facility] LABCLIA [id number] [place] [id number] NEGATIVE PREDICTIVE VALUE Note Normal [place] Comment on above: Order Comment: Speci men Type: BLOOD SPECIMENOrdering Facility: [facility] Address: [address] [place] [address] Result Comment: The Negative Predictive Value (NPV) for trisomy 21, 18, and 13 is greater than 99%. The NPV for SCA and ESS cannot be calculated as SCA and ESS are only reported when an abnormality is detected. Performed By: #### M AT21 ####[facility] LABCLIA [id number] [place] [address] NOTE Comment Normal [place] Comment on above: Order Comment: Speci men Type: BLOOD SPECIMENOrdering Facility: [facility] Address: [address] [place] [address] Result Comment: See Notes [employer]. is a subsidiary of [employer], using the brand [employer]. This test was developed and its performance characteristics determined by [employer]. It has not been cleared or approved by the Food and Drug Administration. This laboratory is certified under the Clinical Laboratory Improvement Amendments (CLIA) as qualified to perform high complexity clinical laboratory testing and accredited by the [employer] (CAP). If there is future clinical need for adding MaterniT GENOME testing, this specimen will be available until term. [facility] samples will not be retained beyond 60 days. [facility] patients will have to send a new sample for re-sequencing ([facility] Test Code: [id number]). Performed By: #### M AT21 ####[facility] LABCLIA [id number] [facility] [address] PERFORMANCE CHARACTERISTICS Note Normal [place] Comment on above: Order Comment: Violeta alvarez Type: BLOOD SPECIMENOrdering Facility: [facility] Address: [address], [place] [address] Result Comment: ! Sex ! Accuracy: 99.4% [...] gestation only. Performed By: #### M AT21 ####[facility] LABGlycosanIA [id number] [place] [address] POSITIVE PREDICTIVE VALUE N/A Normal [place] Comment on above: Order Comment: Speci antonio Type: BLOOD SPECIMENOrdering Facility: [facility] Address: [address] [place] [address] Performed By: #### M AT21 ####[facility] LABCLIA [id number] [place] [address] Reference Lab Test Method Comment Normal [place] Comment on above: Order Comment: Violeta alvarez Type: BLOOD SPECIMENOrdering Facility: [facility] Address: [address] [place] [address] Result Comment: See Notes Circulating cell-free DNA [...] and 22. Performed By: #### M AT21 ####[facility] LABCLIA [id number] [place] [address] Sex Dosage of chromosome-specific cfDNA Nom (cfDNA) Comment Normal [place] Comment on above: Order Comment: Speci men Type: BLOOD SPECIMENOrdering Facility: [facility] Address: [address] [place] [address] Result Comment: Cons istent with Male Performed By: #### M AT21 ####[facility] LABCLIA [id number] [place] [address] Test performance information Jn (Unsp spec) Comment Normal [place] Comment on above: Order Comment: Speci men Type: BLOOD SPECIMENOrdering Facility: [facility] Address: [address] [place] [address] Result Comment: The performance characteristics of the MaterniT(R) 21 PLUS laboratory-developed test (LDT) have been determined in a clinical validation study with women at increased risk for chromosomal aneuploidy.[1-4] Performed By: #### M AT21 ####[facility] LABCLIA [id number] [place] [address] Trisomy 13 risk Dosage of chromosome-specific cfDNA Ql (cfDNA) [Interp] Negative Normal [place] Comment on above: Order Comment: Speci men Type: BLOOD SPECIMENOrdering Facility: [facility] Address: [address] [place] [address] Performed By: #### M AT21 ####[facility] LABCLIA [id number] [place] [address] Trisomy 18 risk Dosage of chromosome-specific cfDNA Ql (Plasma cell-free+WBC DNA) [Interp] Negative Normal [place] Comment on above: Order Comment: Speci men Type: BLOOD SPECIMENOrdering Facility: [facility] Address: [address] [place] [address] Performed By: #### M AT21 ####[facility] LABCLIA [id number] [facility] [place] [address] STREP A MOLECULAR (POC)on Procedural Control Valid [facility] Strep A (POCT) Negative Negative [facility] CBC W Auto Differential pane l (Bld)on 02-24-2024 Basophils (Bld) [#/Vol] 0.07 10*3/uL Normal <0.11 [place] Comment on above: Order Comment: Speci men Type: BLOOD SPECIMENOrdering Facility: [facility] Address: [address] [place] [address] Performed By: #### 5 7021-8 ####[facility]PIT[facility]IA [id number] [place] [address] [place] Basophils/100 WBC (Bld) 0.7 % Normal [place] Comment on above: Order Comment: Speci men Type: BLOOD SPECIMENOrdering Facility: [facility] Address: [address] [place] [address] Performed By: #### 5 7021-8 ####[facility]IT[facility]IA [id number] [place] [address] [place] Differential cell count method Nom (Bld) Auto Normal [place] Comment on above: Order Comment: Speci men Type: BLOOD SPECIMENOrdering Facility: [facility] Address: [address] [place] [address] Performed By: #### 5 7021-8 ####[facility] MILLWNCLIA [id number] [place] [address] [place] Eosinophils (Bld) [#/Vol] 0.24 10*3/uL Normal <0.46 [place] Comment on above: Order Comment: Speci men Type: BLOOD SPECIMENOrdering Facility: [facility] Address: [address] [place] [address] Performed By: #### 5 7021-8 ####[facility] MILLWNCLIA [id number] [place] [address] [place] Eosinophils/100 WBC (Bld) 2.4 % Normal [place] Comment on above: Order Comment: Speci men Type: BLOOD SPECIMENOrdering Facility: [facility] Address: [address] [place] [address] Performed By: #### 5 7021-8 ####[facility] GARDENSONIA [id number] [place] [address] [place] Erythrocyte distribution width (RBC) [Ratio] 14.0 % Normal 11.5-15.0 [place] Comment on above: Order Comment: Speci men Type: BLOOD SPECIMENOrdering Facility: [facility] Address: [address] [place] [address] Performed By: #### 5 7021-8 ####[facility] [id number] [place] [address] [place] Hematocrit (Bld) [Volume fraction] 41.8 % Normal 36.0-46.0 [place] Comment on above: Order Comment: Speci men Type: BLOOD SPECIMENOrdering Facility: [facility] Address: [address] [place] [address] Performed By: #### 5 7021-8 ####[facility] GARDENNCALMITA [id number] [place] [address] [place] Hemoglobin (Bld) [Mass/Vol] 13.9 g/dL Normal 11.5-15.5 [place] Comment on above: Order Comment: Speci men Type: BLOOD SPECIMENOrdering Facility: [facility] Address: [address] [place] [address] Performed By: #### 5 7021-8 ####[facility] GARDENNCLIA [id number] [place] [address] [place] Immature granulocytes (Bld) [#/Vol] 0.03 10*3/uL Normal <0.10 [place] Comment on above: Order Comment: Speci men Type: BLOOD SPECIMENOrdering Facility: [facility] Address: [address] [place] [address] Performed By: #### 5 7021-8 ####[facility] MICAHBrunaNCMILVIA [id number] [place] [address] [place] Immature granulocytes/100 WBC (Bld) 0.3 % Normal [place] Comment on above: Order Comment: Speci men Type: BLOOD SPECIMENOrdering Facility: [facility] Address: [address] [place] [address] Performed By: #### 5 7021-8 ####[facility]NANNAINTER[facility] [id number] [place] [address] [place] Lymphocytes (Bld) [#/Vol] 2.44 10*3/uL Normal 1.00-4.00 [place] Comment on above: Order Comment: Speci men Type: BLOOD SPECIMENOrdering Facility: [facility] Address: [address] [place] [address] Performed By: #### 5 7021-8 ####[facility] [id number] [place] [address] [place] Lymphocytes/100 WBC (Bld) 24.0 % Normal [place] Comment on above: Order Comment: Speci men Type: BLOOD SPECIMENOrdering Facility: [facility] Address: [address] [place] [address] Performed By: #### 5 7021-8 ####[facility]ITAL[facility] [id number] [place] [address] [place] MCH (RBC) [Entitic mass] 28.2 pg Normal 26.0-34.0 [place] Comment on above: Order Comment: Speci men Type: BLOOD SPECIMENOrdering Facility: [facility] Address: [address] [place] [address] Performed By: #### 5 7021-8 ####[facility] CENTERBrunaNCLIA [id number] [place] [address] [place] MCHC (RBC) [Mass/Vol] 33.3 g/dL Normal 30.5-36.0 [facility] Comment on above: Order Comment: Speci men Type: BLOOD SPECIMENOrdering Facility: [facility] Address: [address] [place] [address] Performed By: #### 5 7021-8 ####[facility] GARDENNCA [id number] [place] [address] [place] MCV (RBC) [Entitic vol] 84.8 fL Normal 80.0-100.0 [place] Comment on above: Order Comment: Speci men Type: BLOOD SPECIMENOrdering Facility: [facility] Address: [address] [place] [address] Performed By: #### 5 7021-8 ####[facility] [id number] [place] [address] [place] Monocytes (Bld) [#/Vol] 0.59 10*3/uL Normal <0.87 [place] Comment on above: Order Comment: Speci men Type: BLOOD SPECIMENOrdering Facility: [facility] Address: [address] [place] [address] Performed By: #### 5 7021-8 ####[facility] [id number] [address] [place] Monocytes/100 WBC (Bld) 5.8 % Normal [place] Comment on above: Order Comment: Speci men Type: BLOOD SPECIMENOrdering Facility: [facility] Address: [address] [place] [address] Performed By: #### 5 7021-8 ####[facility]ENNCINTERM[facility] [id number] [place] [address] [place] Neutrophils (Bld) [#/Vol] 6.81 10*3/uL Normal 1.45-7.50 [place] Comment on above: Order Comment: Speci men Type: BLOOD SPECIMENOrdering Facility: [facility] Address: [address] [place] [address] Performed By: #### 5 7021-8 ####[facility] [id number] [place] [address] [place] Neutrophils/100 WBC (Bld) 66.8 % Normal [place] Comment on above: Order Comment: Speci men Type: BLOOD SPECIMENOrdering Facility: [facility] Address: [address] [place] [address] Performed By: #### 5 7021-8 ####[facility]NC[facility] [id number] [place] [address] [place] Nucleated RBC (Bld) [#/Vol] 10*3/uL Normal <0.01 [place] Comment on above: Order Comment: Speci men Type: BLOOD SPECIMENOrdering Facility: [facility] Address: [address] [place] [address] Performed By: #### 5 7021-8 ####[facility] GARDENNCLIA [id number] [place] [address] [place] Nucleated RBC/100 WBC (Bld) [Ratio] 0.0 /100 WBC Normal [place] Comment on above: Order Comment: Speci men Type: BLOOD SPECIMENOrdering Facility: [facility] Address: [address] [place] [address] Performed By: #### 5 7021-8 ####[facility] GARDENNCLI [id number] [place] [address] [place] Platelet mean volume (Bld) [Entitic vol] 8.5 fL Low 9.0-12.7 [place] Comment on above: Order Comment: Speci men Type: BLOOD SPECIMENOrdering Facility: [facility] Address: [address] [place] [address] Performed By: #### 5 7021-8 ####[facility] LEAHWNCLIA [id number] [place] [address] [place] Platelets (Bld) [#/Vol] 304 10*3/uL Normal 150-400 [place] Comment on above: Order Comment: Speci men Type: BLOOD SPECIMENOrdering Facility: [facility] Address: [address] [place] [address] Performed By: #### 5 7021-8 ####[facility]CL[facility] [id number] [place] [address] [place] RBC (Bld) [#/Vol] 4.93 10*6/uL Normal 3.90-5.20 [facility] Comment on above: Order Comment: Speci men Type: BLOOD SPECIMENOrdering Facility: [facility] Address: [address] [place] [address] Performed By: #### 5 7021-8 ####[facility]CL[facility] [id number] [place] [address] [place] WBC (Bld) [#/Vol] 10.18 10*3/uL Normal 3.70-11.00 [facility] Comment on above: Order Comment: Speci men Type: BLOOD SPECIMENOrdering Facility: [facility] Address: [address] [place] [address] Performed By: #### 5 7021-8 ####[facility]CL[facility] [id number] [place] [address] [place] HBV surface Ag Ser Qlon 12-2 HBV surface Ag Ql (S) Negative Normal Negative [facility] Comment on above: Order Comment: Speci men Type: BLOOD SPECIMENOrdering Facility: [facility] Address: [address] [place] [address] Performed By: #### 5 195-3, 77853-2, 68609-7 ####[facility] LABCLIA [id number] [place] [address] [place] HCV Ab Ser Qlon 02-24-2024 HCV Ab Ql (S) Negative Normal Negative [place] Comment on above: Order Comment: Speci men Type: BLOOD SPECIMENOrdering Facility: [facility] Address: [address] [place] [address] Result Comment: The result suggests no evidence of active infection with Hepatitis C virus. Should recent infection be suspected, repeat testing may be considered 4-6 weeks after this draw. Performed By: #### 1 6128-1 ####[facility] LABCLIA [id number] [place] [address] [place] HIV 1+2 Ab IA Qlon HIV 1 and 2 Ab IA.rapid Nom (S/P/Bld) Normal [place] Comment on above: Order Comment: Speci men Type: BLOOD SPECIMENOrdering Facility: [facility] Address: [address] [place] [address] Result Comment: Test not indicated. Performed By: #### 5 195-3, 16972-9, 74066-9 ####[facility] LABCLIA [id number] [place] [address] [place] HIV 1+2 Ab+HIV1 p24 Ag IA Ql Non-Reactive Normal Nonreactive [place] Comment on above: Order Comment: Speci men Type: BLOOD SPECIMENOrdering Facility: [facility] Address: [address] [place] [address] Performed By: #### 5 195-3, 79641-7, 96025-3 ####[facility] LABCLIA [id number] [place] [address] [place] HIV immunoassay testing algorithm interpretation (S/P/Bld) [Interp] Normal [place] Comment on above: Order Comment: Speci men Type: BLOOD SPECIMENOrdering Facility: [facility] Address: [address] [place] [address] Result Comment: No e vidence of HIV-1 or HIV-2 infection. Should recent infection be suspected, repeat testing may be considered 2-3 weeks after this draw. [place] Rev. Code 3701.243(E): This information has been [...] or diagnoses. Performed By: #### 5 195-3, 61505-3, 53736-2 ####[facility] LABCLIA [id number] [place] [address] [place] HbA1c (Bld)on 02-24-2024 Average glucose Estimated from glycated hemoglobin (Bld) [Mass/Vol] 94 mg/dL Normal [place] Comment on above: Order Comment: Speci men Type: SWAB [facility] Address: [address] [place] [address] Result Comment: eAG: (Estimated average glucose) is a calculated value from HgbA1c and is exhibit display representative of the average blood glucose level in the last 2-3 month period. Performed By: #### C VTV, BVAMP #### [facility] CLIA [id number] [address] [place] [address] [place] HbA1c (Bld) [Mass fraction] 4.9 % Normal 4.3-5.6 [place] Comment on above: Order Comment: Speci men Type: SWAB [facility] Address: [address] [place] [address] Result Comment: Amer [place] Diabetes Association guidelines indicate that patients with HgbA1c in the range 5.7-6.4% are at increased risk for development of diabetes, and intervention by lifestyle modification may be beneficial. HgbA1c greater or equal to 6.5% is considered diagnostic of diabetes. Performed By: #### C VTV, BVAMP #### [facility] CLIA [id number] [address] [place] [address] [place] RUBELLA IGG ANTIBODYon 02-23 RUBELLA IGG AB, QUAL Positive Normal Positive [facility] Comment on above: Order Comment: Speci men Type: BLOOD SPECIMENOrdering Facility: [facility] Address: [address] [place] [address] Result Comment: The result suggests recent or past exposure to Rubella virus or history of Rubella vaccination. Positive result may also be seen due to presence of passively-transferred antibodies. Please correlate with patient's history. Performed By: #### R UBIGG ####[facility] LABCLIA [id number] [place] [address] [place] Reagin and Treponema pallidu m IgG and IgM [Interp]on 02-24-2024 T. pallidum IgG+IgM IA Ql (S) Non-Reactive Normal Nonreactive [place] Comment on above: Order Comment: Speci [facility] Type: BLOOD SPECIMENOrdering Facility: [facility] Address: [address] [place] [address] Performed By: #### 5 195-3, 02545-6, 69934-9 ####[facility] LABCLIA [id number] [place] [address] [place] Reagin+T pallidum IgG+IgM Se rPl-Impon 02-24-2024 Reagin and Treponema pallidum IgG and IgM [Interp] Cannot exclude recent Treponemal infection if specimen collected within 7-10 days after appearance of suspect lesions or 2-3 weeks after an exposure. Clinical correlation is required. Normal [place] Comment on above: Order Comment: Speci men Type: BLOOD SPECIMENOrdering Facility: [facility] Address: [address] [place] [address] Performed By: #### 5 195-3, 21757-2, 91551-7 ####[facility] LABCLIA [id number] [place] [address] [place] TYPE + SCREEN PRENATALon ABO O Normal [place] Comment on above: Order Comment: Speci men Type: SWAB [facility] Address: [address] [place] [address] Performed By: #### C VTV, BVAMP #### [facility] CLIA [id number] [address] [place] [address] [place] Rh Nom (Bld) Positive Normal [place] Comment on above: Order Comment: Speci men Type: SWAB [facility] Address: [address] [place] [address] Performed By: #### C VTV, BVAMP #### [facility] CLIA [id number] [address] [place] [address] [place] TYPE AND SCREEN EXPIRATION 02/27/2024 23:59 Normal [place] Comment on above: Order Comment: Speci men Type: SWAB [facility] Address: [address] [place] [address] Performed By: #### C VTV, BVAMP #### [facility] CLIA [id number] [address] [place] [address] [place] Urgent Care Visit Reporton 1 04-26-2023 Urgent Care Visit Report [facility] [address], [address] [place] [address] OFFICE VISIT Date of Service: 02/24/24 MR#: [id number] Acct: [id number] Name: AMIRAH WOODARD Rep #: [id number] 40 : 2005 Provider: CATRACHO Jacobo Age/Sex: 18/F Location: [facility] Status: Signed Intake Vital Signs 11/14/23 09:57 Height 5 ft 3 in Intake Visit Reasons: [facility] Chief Complaint: Preemployment physical Accompanied by: Self Allergies No Known Allergies Allergy (Verified 02/24/24 12:06) Medications ???Medication ???Instructions ???Recorded ???Confirmed ???Type Lactobacillus 25 billion cap PO 10/04/23 11/15/23 History cell-Bifido 25 billion nake-LYJ-rhler capsule albuterol sulfate 90 mcg/actuation inhalation 10/04/23 [...] Chico Gomez Signature: Date (if applicable) CC: [facility]rick 02-23-2024 MATTI Telephone (QuickofficeOBA) AMIRAH WOODARD ([id number]) 3 F Date Time Provider Department 02/23/24 [...] Date Reviewed: 02/21/2024 Reviewed by: Nilda Stiles APRN.HAY SORTER - Fully Assessed Reason for Visit: PRAF [...] Status:Closed by PAULINE AU on 02/23/24 Normal [place] BACTERIAL VAGINOSIS NAATon 1 2- Lactobacillus crispatus+gasseri+imelda enii + Gardnerella vaginalis + Atopobium vaginae rRNA MEG+probe Ql (Vag fld) Not detected Normal Not detected [place] Comment on above: Order Comment: Speci men Type: SWABOrdering Facility: [facility] Address: [address] [place] [address] Performed By: #### Cherelle VAMP, 27766-1 ####[facility] LABCLIA [id number] [place] [address] [place] Bacteria Ur Culton [...] technique or straight catheterization for???urine???collecti on. Normal [place] Comment on above: Performed By: #### 6 30-4 ####[facility] LABCLIA [id number] [place] [address] [place] C. trachomatis+N. gonorrhoea e DNA MEG+probe Ql (Unsp spec)on 02-21-2024 C. trachomatis rRNA MEG+probe Ql (Unsp spec) Not detected Normal Not detected [place] Comment on above: Order Comment: Speci men Type: SWABOrdering Facility: [facility] Address: [address] [place] [address] Performed By: #### Cherelle VAMP, 58165-4 ####[facility] LABCLIA [id number] [place] [address] [place] N. gonorrhoeae rRNA MEG+probe Ql (Unsp spec) Not detected Normal Not detected [place] Comment on above: Order Comment: Speci men Type: SWABOrdering Facility: [facility] Address: [address] [place] [address] Performed By: #### Cherelle VAMP, 85070-2 ####[facility] LABCLIA [id number] [place] [address] [place] FRANCO/TRICHOMONAS NAATon 1 2-17-2024 C. glabrata RNA MEG+probe Ql (Vag fld) Not detected Normal Not detected [place] Comment on above: Order Comment: Speci men Type: SWAB [facility] Address: [address] [place] [address] Performed By: #### C VTV, BVAMP #### [facility] CLIA [id number] [address] [place] [address] [place] Franco sp DNA MEG+probe Ql (Vag fld) Not detected Normal Not detected [place] Comment on above: Order Comment: Speci men Type: SWAB [facility] Address: [address] [place] [address] Result Comment: The Franco species group target includes C. albicans, C. tropicalis, C. parapsilosis, and C. dubliniensis. Performed By: #### C VTV, BVAMP #### [facility] CLIA [id number] [address] [place] [address] [place] T. 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 ULTRASOUNDon 02-21-20 24 Indication Confirmation of intrauterine [...] Read By: Nilda Stiles CNP MATERNAL MEDICINE [facility] Radiology Study observation (narrative) [facility] CNCOon 02-01-2024 CNCO Letter Text Normal [place] CNOVon 01-30-2024 CNOV Office Visit (OBGYWM ) AMIRAH WOODARD ([id number]) 3 F Date Time Provider Department 01/30/24 [...] L0 SAB0 IAB0 Ectopic0 Multiple0 Live Births0 Rapid Outsole Stitcher History LMP: 12/09/2023 (Exact Date), Having periods Age at Menarche: Age at First : Age at Menopause: Rapid Outsole Stitcher History Comments: Sexual Activity: Yes; Male Contraception: [...] (FLONASE) 50 mcg/actuation nasal spray Use 1 Java in each nostril once daily. loratadine (CLARITIN) [...] result positive [Z32.01] Order(s):UA DIP,URINE HCG (POC) [[id number]] Order #: [id number]. #:[id number] Prescriptions as of 01/30/2024 - vit no.124/iron/folic [...] (FLONASE) 50 mcg/actuation nasal spray Use 1 Java in each nostril once daily. - loratadine [...] NOB. Follow (more content not included)... Normal [place] UA DIP,URINE HCG (POC)on Beta HCG ( test) Ql (U) Positive Abnormal Negative [facility] Comment on above: Location:[facility], [address], [place], [address] Interpretation and review of laboratory results Abnormal [facility] Supervisor Crack Off (POCT) Internal QC OK [facility] Location:[facility], [address], [place], [address] [facility] CNPN Telephone (OBGYWM) AMIRAH WOODARD ([id number]) 3 F Date Time Provider Department 12/15/23 [...] NILDA STILES Pharmacy Information Pharmacy Address Telephone [facility] [address] [place] [address] Allergies As of Date: 12/15/2023 [...] (FLONASE) 50 mcg/actuation nasal spray Use 1 Java in each nostril once daily. - loratadine [...] Status:Closed by VIVIAN ADAMS on 12/15/23 Normal [place] BACTERIAL VAGINOSIS NAATon 1 Lactobacillus crispatus+gasseri+imelda enii + Gardnerella vaginalis + Atopobium vaginae rRNA MEG+probe Ql (Vag fld) Negative Normal Negative for bacterial vaginosis [place] Comment on above: Order Comment: Speci men Type: SWAB [facility] Address: [address] [place] [address] Performed By: #### C VTV, BVAMP #### [facility] CLIA [id number] [address] [place] [address] [place] FRANCO/TRICHOMONAS NAATon 1 C. glabrata RNA MEG+probe Ql (Vag fld) Negative Normal Negative for Franco glabrata [place] Comment on above: Order Comment: Speci men Type: SWAB Ordering Facility: [facility] Address: [address] [place] [address] Performed By: #### C VTV, BVAMP #### [facility] CLIA [id number] [address] [place] [address] [place] Franco sp DNA MEG+probe Ql (Vag fld) Negative Normal Negative for Franco species [place] Comment on above: Order Comment: Speci men Type: SWAB Ordering Facility: [facility] Address: [address] [place] [address] Performed By: #### C VTV, BVAMP #### [facility] CLIA [id number] [address] [place] [address] [place] T. vaginalis DNA MEG+probe Ql (Unsp spec) Negative Normal Negative for Trichomonas vaginalis by amplification [place] Comment on above: Order Comment: Speci men Type: SWAB Ordering Facility: [facility] Address: [address] [place] [address] Performed By: #### C VTV, BVAMP #### [facility] CLIA [id number] [address] [place] [address] [place] CNOVon 12-12-2023 CNOV Office Visit (OBGYWM ) AMIRAH WOODARD ([id number]) 3 F Date Time Provider Department 12/12/23 3:45 PM NILDA STILES OBGYWM During your visit today, we recorded the following information about you: Blood pressure Weight Last Period 122/66 84.8 kg 12/09/23 Nilda Stiles APRN.HAY SORTER 12/12/2023 4:43 PM 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 Amirah Woodard is a 18 year old [...] L0 SAB0 IAB0 Ectopic0 Multiple0 Live Births0 Rapid Outsole Stitcher History LMP: 10/08/2023 (Exact Date), Having periods Age at Menarche: Age at First : Age at Menopause: Rapid Outsole Stitcher History Comments: Sexual Activity: Yes; Male Contraception: [...] (FLONASE) 50 mcg/actuation nasal spray Use 1 Java in each nostril once daily. loratadine (CLARITIN) [...] discussed with the Patient or Patient's Authorized Visiting Professor. As applicable, any other physician, advance practice provider, medical student, or other health professional student that will be observing or involved in the sensitive examination for educational or training purposes was discussed with the Patient or Authorized Visiting Professor. The Patient or Authorized Visiting Professor has agreed to proceed with the sensitive examination. (Sensitive examination includes inspection and/or palpation of the breasts, pelvis, prostate and anorectal regions). EXAM: LMP 10/08/2023 GENERAL: pleasant, female in no apparent distress HEENT: Normocephalic, atraumatic, mucus membranes moist, and no lesions CHEST: Normal inspiratory effort PELVIC: external genitalia normal, normal Bartholin's glands, urethra, [place]'s glands, no vulvar lesions, no cervical lesions, [...] notify patient of test results. Nilda Stiles APRN.HAY SORTER Medical Decision Making: Problems: Moderate: New problem with uncertain prognosis Data: U (more content not included)... Normal [place] T3Free SerPl-mCncon 12-12-19 24 Free T3 [Mass/Vol] 3.2 pg/mL Normal 2.3-4.1 [facility] Comment on above: Order Comment: Speci men Type: BLOOD SPECIMENOrdering Facility: [facility] Address: [address] [place] [address] Performed By: #### 3 051-0, 7, 3 ####[facility] [id number] [place] [address] [place] T4 Free SerPl-mCncon 024 Free T4 [Mass/Vol] 1.2 ng/dL Normal 0.9-1.7 [facility] Comment on above: Order Comment: Speci men Type: BLOOD SPECIMENOrdering Facility: [facility] Address: [address] [place] [address] Performed By: #### 3 051-0, 3023-7, 3 ####[facility] [id number] [place] [address] [place] THYROID PEROXIDASE ANTIBODYo n 12-12-2023 TPO Ab Qn [IU]/mL Normal <5.6 [place] Comment on above: Order Comment: Speci men Type: BLOOD SPECIMENOrdering Facility: [facility] Address: [address] [place] [address] Result Comment: Thyr oid Peroxidase Antibody test is used as an aid in diagnosis of autoimmune thyroid disease. Clinical correlation is required. Performed By: #### M ICRO ####[facility] [id number] [place] [address] [place] TSH SerPl-aCncon 12-12-2023 TSH Qn 1.050 m[IU]/L Normal 0.510-4.300 [place] Comment on above: Order Comment: Speci men Type: BLOOD SPECIMENOrdering Facility: [facility] Address: [address] [place] [address] Result Comment: If t he patient is , TSH reference range varies by gestational period: First Trimester (weeks 9-12): 0.180-2.990 mIU/L Second Trimester: 0.110-3.980 mIU/L Third Trimester: 0.480-4.710 mIU/L Dayo Wagner, et al. A Practical Approach for the Verifications and Determination of Site- and Trimester-Specific Reference Intervals for Thyroid Function tests in . Thyroid, 2019:29:3:412-420. Edmar E, et al. 2017 Guidelines of the [place] Thyroid Association for the Diagnosis and Management of Thyroid Disease during and the . Thyroid, 2017:27:3:315-389. Reference ranges were not locally established for this patient's age group. The normal values are based on the following source: Yarelis W, Chante V. Reference Ranges for Adults and Children: Pre-analytical Considerations. [facility] Performed By: #### 3 051-0, 3024-7, 3016-3 ####[facility] [id number] [place] [address] [place] UROGENITAL UREAPLASMA AND MY COPLASMA SPECIES BY PCR, FOR GENITAL, RECTAL, URINE SAMPLESon 12-12-2023 M GENITALIUM PCR Not detected Normal [facility] Comment on above: Order Comment: Speci men Type: SWABOrdering Facility: [facility] Address: [address] [place] [address] Result Comment: INTE RPRETIVE INFORMATION: Urogenital Ureaplasma and Mycoplasma Species by PCR A negative result does not rule out the presence of PCR inhibitors in the patient specimen or test-specific nucleic acid in concentrations below the level of detection by this test. This test was developed and its performance characteristics determined by [facility]. It has not been cleared or approved by the [place] Food and Drug Administration. This test was performed in a CLIA certified laboratory and is intended for clinical purposes. Performed By: [employer] [address] [place] [address] Title Abstractor: Jonathan Guzman MD, PhD [facility] Number: [id number] Performed By: #### U RMPCR ####[facility] [id number] [place] [address] MYCOPLAS HOMINIS PCR Not detected Normal [facility] Comment on above: Order Comment: Speci men Type: SWABOrdering Facility: [facility] Address: [address] [place] [address] Performed By: #### U RMPCR ####[facility] [id number] [place] [address] UR PARVUM PCR Detected Abnormal [place] Comment on above: Order Comment: Speci men Type: SWABOrdering Facility: [facility] Address: [address] [place] [address] Performed By: #### U RMPCR ####[facility] [id number] [place] [address] UR UREALYTICUM PCR Not detected Normal [facility] Comment on above: Order Comment: Speci men Type: SWABOrdering Facility: [facility] Address: [address] [place] [address] Performed By: #### U RMPCR ####[facility] [id number] [place] [address] UR/MYCO SOURCE Genital Normal [facility] Comment on above: Order Comment: Speci men Type: SWABOrdering Facility: [facility] Address: [address] [place] [address] Performed By: #### U RMPCR ####[facility] [id number] [place] [address] Ankle min 3 Viewson 11-15-19 Ankle min 3 Views [facility] [address] [place] [address] Ankle min 3 Views MR#: [id number] Acct: [id number] Name: AMIRAH WOODARD Rep #: [id number] : 2005 F 18 From: Bruno Méndez MD PCP: Dr. Que Chavez MD Status: DEP AMB Study: Ankle min 3 Views Date of Exam: 11/15/23 Exam# [id number] Ordering Dr: Antwon Miranda MD [id number] STUDY: X-RAY - LEFT ANKLE REASON FOR [...] 15:51 EDT Reading Location ID and State: [address] [place] [address] , Service support , CC: Dr. Que Chavez MD; Dr. Antwon Miranda MD Kick Press Operator: Signed Normal [facility] Orthopedic Visit Reporton Orthopedic Visit Report [facility] [place] [address] OFFICE VISIT Date of Service: 11/15/23 MR#: [id number] Acct: [id number] Name: AMIRAH WOODARD Rep #: [id number] : 2005 Provider: Dr. Antwon sebastian MD Age/Sex: 18/F Location: [facility].JAMAAL Status: Signed Intake Vital Signs 11/14/23 09:57 Height 5 ft 3 in Intake Visit Reasons: LEFT LEG Chief Complaint: left ankle Accompanied by: Self Is patient in pain?: No Allergies No Known Allergies Allergy (Verified 11/15/23 15:06) Medications ???Medication ???Instructions ???Recorded ???Confirmed ???Type Lactobacillus 25 billion cap PO 10/04/23 11/15/23 History cell-Bifido 25 billion adfe-DRM-bivhb capsule albuterol sulfate 90 mcg/actuation inhalation 10/04/23 [...] Cosigner Signature: Date (if applicable) CC: Normal 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 loratadine (CLARITIN) [...] satisfactory Screening tools reviewed and discussed with patient/[id number] and Social Determinants of Health. Please see Patient Entered Data. SDOH: Food Insecurity: No F (more content not included)... Normal [place] Ankle min 3 Viewson 10-18-19 Ankle min 3 Views [facility] [address] [place] [address] Ankle min 3 Views MR#: [id number] Acct: [id number] Name: AMIRAH WOODARD Rep #: [id number] : 2005 F 18 From: Feliciano narayan MD PCP: Dr. Que Chavez MD Status: DEP AMB Study: Ankle min 3 Views Date of Exam: 10/18/23 Exam# [id number] Ordering Dr: Antwon Miranda MD [id number] INDICATION: fu EXAMINATION/TECHNIQUE: X-RAY - LEFT XR [...] Que Chavez MD; Dr. Antwon Miranda MD Kick Press Operator: Signed Normal [facility] Orthopedic Visit Reporton Orthopedic Visit Report [facility] [address] [place] [address] [address] [place] [address] OFFICE VISIT Date of Service: 10/18/23 MR#: [id number] Acct: [id number] Name: AMIRAH WOODARD Rep #: [id number] : 2005 Provider: Dr. Antwon sebastian MD Age/Sex: 18/F Location: [facility].JAMAAL Status: Signed Intake Vital Signs 10/03/23 08:06 Height 5 ft 3 in Intake Visit Reasons: LEFT LEG Accompanied by: Mother Is patient in pain?: No Allergies No Known Allergies Allergy (Verified 10/18/23 10:05) Medications ???Medication ???Instructions ???Recorded ???Confirmed ???Type Lactobacillus 25 billion cap PO 10/04/23 10/18/23 History cell-Bifido 25 billion jxsv-ZIZ-rthfi capsule albuterol sulfate 90 mcg/actuation inhalation 10/04/23 [...] Cosigner Signature: Date (if applicable) CC: Normal [facility] STREP A MOLECULAR (POC)on Procedural Control Valid [facility] Strep A (POCT) Negative Negative [facility] BACTERIAL VAGINOSIS NAATon 0 07-12-2023 Interpretation and review of laboratory results Abnormal [facility] Lactobacillus crispatus+gasseri+imelda enii + Gardnerella vaginalis + Atopobium vaginae rRNA MEG+probe Ql (Vag fld) Positive Abnormal Negative for bacterial vaginosis [facility] FRANCO/TRICHOMONAS NAATon 0 07-12-2023 C. glabrata RNA MEG+probe Ql (Vag fld) Negative Negative for Franco glabrata [facility] Franco sp DNA MEG+probe Ql (Vag fld) Negative Negative for Franco species [facility] Interpretation and review of laboratory results Normal [facility] T. vaginalis DNA MEG+probe Ql (Unsp spec) Negative Negative for Trichomonas vaginalis by amplification [facility] US Pelvis transvaginalon [facility] BACTERIAL VAGINOSIS NAATon 0 05-04-2023 Lactobacillus crispatus+gasseri+imelda enii + Gardnerella vaginalis + Atopobium vaginae rRNA MEG+probe Ql (Vag fld) Negative Negative for bacterial vaginosis [facility] C. trachomatis+N. gonorrhoea e DNA MEG+probe Ql (Unsp spec)on 05-04-2023 C. trachomatis rRNA MEG+probe Ql (Unsp spec) Negative Negative for Chlamydia trachomatis by amplificaton [facility] N. gonorrhoeae rRNA MEG+probe Ql (Unsp spec) Negative Negative for Neisseria gonorrhoeae by amplification [facility] FRANCO/TRICHOMONAS NAATon 0 05-04-2023 C. glabrata RNA MEG+probe Ql (Vag fld) Negative Negative for Franco glabrata [facility] Franco sp DNA MEG+probe Ql (Vag fld) Negative Negative for Franco species [facility] T. vaginalis DNA MEG+probe Ql (Unsp spec) Negative Negative for Trichomonas vaginalis by amplification [facility] HCG QUAL UR B/Oon 07-15-2022 status Negative neg - pos [facility] Quality Check Yes [facility] Vital Signs Date Time Vital Sign Value Performing Clinician Facility 10-13-2024 01:46-0400 Heart rate 90 /min Dr. Ruiz Vega DO Work Phone: [facility] 10-13-2024 01:46-0400 SaO2% (BldA) [Mass fraction] 97 % Dr. Ruiz Vega DO Work Phone: [facility] 10-12-2024 23:44-0400 Diastolic blood pressure 82 mm[Hg] Dr. Ruiz Vega DO Work Phone: [facility] 10-12-2024 23:44-0400 Systolic blood pressure 122 mm[Hg] Dr. Ruiz Vega DO Work Phone: [facility] 10-12-2024 23:43-0400 Body temperature 97.7 [degF] Dr. Ruiz Vega DO Work Phone: [facility] 10-12-2024 23:43-0400 Respiratory rate 16 /min Dr. Ruiz Vega DO Work Phone: [facility] 10-12-2024 23:35-0400 Body height 162.[address] Ruiz Vega DO Work Phone: [facility] 10-12-2024 23:35-0400 Body mass index (BMI) [Ratio] 38.6 kg/m2 Dr. Ruiz Vega DO Work Phone: [facility] 10-12-2024 23:35-0400 Body weight [address] Ruiz Vega DO Work Phone: [facility] 10-05-2024 16:20-0400 Body mass index (BMI) [Ratio] 37.85 kg/m2 Delfina Watson APRN.CNM Work Phone: [facility] 10-05-2024 16:20-0400 Body weight 103.06 kg Delfina Watson APRN.CNM Work Phone: [facility] 10-05-2024 16:20-0400 Diastolic blood pressure 74 mm[Hg] Delfina Watson APRN.CNM Work Phone: [facility] 10-05-2024 16:20-0400 Systolic blood pressure 110 mm[Hg] Delfina Watson APRN.CNM Work Phone: [facility] 09-25-2024 14:06-0400 Body mass index (BMI) [Ratio] 36.99 kg/m2 Janelle Marin MD Work Phone: [facility] 09-25-2024 14:06-0400 Body weight 100.7 kg Janelle Marin MD Work Phone: [facility] 09-25-2024 14:06-0400 Diastolic blood pressure 70 mm[Hg] Janelle Marin MD Work Phone: [facility] 09-25-2024 14:06-0400 Systolic blood pressure 110 mm[Hg] Janelle Marin MD Work Phone: [facility] 09-18-2024 13:26-0400 Body mass index (BMI) [Ratio] 37.02 kg/m2 Alo Thompson MD Work Phone: [facility] 09-18-2024 13:26-0400 Body weight 100.79 kg Alo Thompson MD Work Phone: [facility] 09-18-2024 13:26-0400 Diastolic blood pressure 72 mm[Hg] Alo Thompson MD Work Phone: [facility] 09-18-2024 13:26-0400 Systolic blood pressure 110 mm[Hg] Alo Thompson MD Work Phone: [facility] 09-12-2024 10:33-0400 Body mass index (BMI) [Ratio] 35.99 kg/m2 Castillo Mckeon MD Work Phone: [facility] 09-12-2024 10:33-0400 Body weight 97.98 kg Castillo Mckeon MD Work Phone: [facility] 09-12-2024 10:33-0400 Diastolic blood pressure 82 mm[Hg] Castillo Mckeon MD Work Phone: [facility] 09-12-2024 10:33-0400 Systolic blood pressure 124 mm[Hg] Castillo Mckeon MD Work Phone: [facility] 09-04-2024 12:22-0400 Body temperature 98 [degF] Dr. Ruiz Vega DO Work Phone: 0(840)273-865912 [place] [address] 09-04-2024 12:22-0400 Diastolic blood pressure 75 mm[Hg] Dr. Ruiz Vega DO Work Phone: 9(803)342-084897 [place] [address] 09-04-2024 12:22-0400 Heart rate 99 /min Dr. Ruiz Vega DO Work Phone: 6(271)532-421212 [place] [address] 09-04-2024 12:22-0400 Respiratory rate 17 /min Dr. Ruiz Vega DO Work Phone: 3(658)042-647797 [place] [address] 09-04-2024 12:22-0400 SaO2% (BldA) [Mass fraction] 94 % Dr. Ruiz Vega DO Work Phone: 0(907)466-265097 [place] [address] 09-04-2024 12:22-0400 Systolic blood pressure 115 mm[Hg] Dr. Ruiz Vega DO Work Phone: 9(178)420-849497 [place] [address] 09-04-2024 10:11-0400 Body height 162.[address] Ruiz Vega DO Work Phone: 7(557)590-853997 [place] [address] 09-04-2024 10:11-0400 Body mass index (BMI) [Ratio] 37.1 kg/m2 Dr. Ruiz Vega DO Work Phone: 2(158)665-273212 [place] [address] 09-04-2024 10:11-0400 Body weight 98.[address] Ruiz Vega DO Work Phone: 7(608)774-592297 [place] [address] 09-04-2024 09:32-0400 Body mass index (BMI) [Ratio] 35.65 kg/m2 Janelle Marin MD Work Phone: [facility] 09-04-2024 09:32-0400 Body weight 97.07 kg Janelle Marin MD Work Phone: [facility] 09-04-2024 09:32-0400 Diastolic blood pressure 76 mm[Hg] Janelle Marin MD Work Phone: [facility] 09-04-2024 09:32-0400 Heart rate 126 /min Janelle Marin MD Work Phone: [facility] 09-04-2024 09:32-0400 SaO2% (BldA) [Mass fraction] 98 % Janelle Marin MD Work Phone: [facility] 09-04-2024 09:32-0400 Systolic blood pressure 128 mm[Hg] Janelle Marin MD Work Phone: [facility] 08-30-2024 14:52-0400 Body mass index (BMI) [Ratio] 36.15 kg/m2 La Plotts ACID MIXER.CNM Work Phone: [facility] 08-30-2024 14:52-0400 Body weight 98.43 kg La Plotts ACID MIXER.CNM Work Phone: [facility] 08-30-2024 14:52-0400 Diastolic blood pressure 68 mm[Hg] La Plotts ACID MIXER.CNM Work Phone: [facility] 08-30-2024 14:52-0400 Systolic blood pressure 120 mm[Hg] La Plotts ACID MIXER.CNM Work Phone: [facility] 08-16-2024 14:23-0400 Body mass index (BMI) [Ratio] 35.49 kg/m2 Lindsey Hawander ACID MIXER.HAY SORTER Work Phone: [facility] 08-16-2024 14:23-0400 Body weight 96.62 kg Lindsey Haury ACID MIXER.HAY SORTER Work Phone: [facility] 08-16-2024 14:23-0400 Diastolic blood pressure 62 mm[Hg] Lindsey Haury ACID MIXER.HAY SORTER Work Phone: [facility] 08-16-2024 14:23-0400 Systolic blood pressure 112 mm[Hg] Lindsey Haury ACID MIXER.HAY SORTER Work Phone: [facility] 08-13-2024 09:18-0400 Body height 165 cm Ruiz Vega DO Work Phone: [facility] 08-13-2024 09:18-0400 Body mass index (BMI) [Ratio] 35.15 kg/m2 Ruiz Vega DO Work Phone: [facility] 08-13-2024 09:18-0400 Body temperature 96.4 [degF] Ruiz Vega DO Work Phone: [facility] 08-13-2024 09:18-0400 Body weight 95.71 kg Ruiz Vega DO Work Phone: [facility] 08-13-2024 09:18-0400 Diastolic blood pressure 60 mm[Hg] Ruiz Vega DO Work Phone: [facility] 08-13-2024 09:18-0400 Heart rate 88 /min Ruiz Vega DO Work Phone: [facility] 08-13-2024 09:18-0400 Respiratory rate 16 /min Ruiz Vega DO Work Phone: [facility] 08-13-2024 09:18-0400 Systolic blood pressure 90 mm[Hg] Ruiz Vega DO Work Phone: [facility] 08-01-2024 09:33-0400 Body mass index (BMI) [Ratio] 36.39 kg/m2 Castillo Mckeon MD Work Phone: [facility] 08-01-2024 09:33-0400 Body weight 96.16 kg Castillo Mckeon MD Work Phone: [facility] 08-01-2024 09:33-0400 Diastolic blood pressure 78 mm[Hg] Castillo Mckeon MD Work Phone: [facility] 08-01-2024 09:33-0400 Systolic blood pressure 128 mm[Hg] Castillo Mckeon MD Work Phone: [facility] 07-20-2024 08:32-0400 Body mass index (BMI) [Ratio] 35.36 kg/m2 Lindsey Moreno APRN.HAY SORTER Work Phone: [facility] 07-20-2024 08:32-0400 Body weight 93.44 kg Lindsey Haury ACID MIXER.HAY SORTER Work Phone: [facility] 07-20-2024 08:32-0400 Diastolic blood pressure 64 mm[Hg] Lindsey Moreno ACID MIXER.HAY SORTER Work Phone: [facility] 07-20-2024 08:32-0400 Systolic blood pressure 118 mm[Hg] Lindsey Moreno ACID MIXER.HAY SORTER Work Phone: [facility] 06-21-2024 13:04-0400 Body mass index (BMI) [Ratio] 34.67 kg/m2 La Plotts ACID MIXER.CNM Work Phone: [facility] 06-21-2024 13:04-0400 Body weight 91.63 kg La Plotts ACID MIXER.CNM Work Phone: [facility] 06-21-2024 13:04-0400 Diastolic blood pressure 62 mm[Hg] La Plotts ACID MIXER.CNM Work Phone: [facility] 06-21-2024 13:04-0400 Systolic blood pressure 114 mm[Hg] La Plotts ACID MIXER.CNM Work Phone: [facility] 06-19-2024 14:38-0400 Body mass index (BMI) [Ratio] 35.02 kg/m2 Janelle Marin MD Work Phone: [facility] 06-19-2024 14:38-0400 Body weight 92.53 kg Janelle Marin MD Work Phone: [facility] 06-19-2024 14:38-0400 Diastolic blood pressure 60 mm[Hg] Janelle Marin MD Work Phone: [facility] 06-19-2024 14:38-0400 Systolic blood pressure 120 mm[Hg] Janelle Marin MD Work Phone: [facility] 06-06-2024 13:05-0400 Body mass index (BMI) [Ratio] 34.67 kg/m2 La Plotts ACID MIXER.CNM Work Phone: [facility] 06-06-2024 13:05-0400 Body weight 91.63 kg La Plotvida ACID MIXER.CNM Work Phone: [facility] 06-06-2024 13:05-0400 Diastolic blood pressure 66 mm[Hg] La Plotvida ACID MIXER.CNM Work Phone: [facility] 06-06-2024 13:05-0400 Systolic blood pressure 114 mm[Hg] La Del Castillo ACID MIXER.CNM Work Phone: [facility] 05-25-2024 15:18-0400 Body mass index (BMI) [Ratio] 34.16 kg/m2 Kia Lucero MD Work Phone: [facility] 05-25-2024 15:18-0400 Body weight 90.27 kg Kia Lucero MD Work Phone: [facility] 05-25-2024 15:18-0400 Diastolic blood pressure 70 mm[Hg] Kia Lucero MD Work Phone: [facility] 05-25-2024 15:18-0400 Systolic blood pressure 114 mm[Hg] Kia Lucero MD Work Phone: [facility] 04-27-2024 13:06-0500 Body mass index (BMI) [Ratio] 33.81 kg/m2 Delfina Watson ACID MIXER.CNM Work Phone: [facility] 04-27-2024 13:06-0500 Body weight 89.36 kg Delfina Watson ACID MIXER.CNM Work Phone: [facility] 04-27-2024 13:06-0500 Diastolic blood pressure 68 mm[Hg] Delfina Watson ACID MIXER.CNM Work Phone: [facility] 04-27-2024 13:06-0500 Systolic blood pressure 116 mm[Hg] Delfina Watson ACID MIXER.CNM Work Phone: [facility] 04-03-2024 16:15-0500 Body mass index (BMI) [Ratio] 33.3 kg/m2 Delfina Watson ACID MIXER.CNM Work Phone: [facility] 04-03-2024 16:15-0500 Body weight 88 kg Delfina Watson ACID MIXER.CNM Work Phone: [facility] 04-03-2024 16:15-0500 Diastolic blood pressure 60 mm[Hg] Delfina Watson ACID MIXER.CNM Work Phone: [facility] 04-03-2024 16:15-0500 Systolic blood pressure 104 mm[Hg] Delfina Watson ACID MIXER.CNM Work Phone: [facility] 03-28-2024 09:18-0500 Body mass index (BMI) [Ratio] 33.13 kg/m2 Duncan Munguia MD Work Phone: [facility] 03-28-2024 09:18-0500 Body weight 87.54 kg Duncan Munguia MD Work Phone: [facility] 03-28-2024 09:18-0500 Diastolic blood pressure 70 mm[Hg] Duncan Munguia MD Work Phone: [facility] 03-28-2024 09:18-0500 Systolic blood pressure 120 mm[Hg] Duncan Munguia MD Work Phone: [facility] 03-19-2024 13:50-0500 Body mass index (BMI) [Ratio] 33.15 kg/m2 Josiane Luzader ACID MIXER.HAY SORTER Work Phone: [facility] 03-19-2024 13:50-0500 Body temperature 98.2 [degF] Josiane Luzader ACID MIXER.HAY SORTER Work Phone: [facility] 03-19-2024 13:50-0500 Body weight 87.6 kg Josiane Luzader ACID MIXER.HAY SORTER Work Phone: [facility] 03-19-2024 13:50-0500 Heart rate 84 /min Josiane Luzader ACID MIXER.HAY SORTER Work Phone: [facility] 03-19-2024 13:50-0500 Respiratory rate 16 /min Josiane Luzader ACID MIXER.HAY SORTER Work Phone: [facility] 03-13-2024 11:57-0500 Body mass index (BMI) [Ratio] 32.96 kg/m2 Roberto Clutter PA-C Work Phone: [facility] 03-13-2024 11:57-0500 Body temperature 97.59 [degF] Roberto Clutter PA-C Work Phone: [facility] 03-13-2024 11:57-0500 Body weight 87.1 kg Roberto Clutter PA-C Work Phone: [facility] 03-13-2024 11:57-0500 Diastolic blood pressure 72 mm[Hg] Roberto Clutter PA-C Work Phone: [facility] 03-13-2024 11:57-0500 Heart rate 87 /min Roberto Clutter PA-C Work Phone: [facility] 03-13-2024 11:57-0500 Respiratory rate 18 /min Roberto Clutter PA-C Work Phone: [facility] 03-13-2024 11:57-0500 SaO2% (BldA) [Mass fraction] 98 % Roberto Clutter PA-C Work Phone: [facility] 03-13-2024 11:57-0500 Systolic blood pressure 110 mm[Hg] Roberto Clutter PA-C Work Phone: [facility] 02-21-2024 08:17-0500 Body height 162.6 cm Nilda Merrillville ACID MIXER.HAY SORTER Work Phone: [facility] 02-21-2024 08:17-0500 Body mass index (BMI) [Ratio] 32.41 kg/m2 Nilda Linsey ACID MIXER.HAY SORTER Work Phone: [facility] 02-21-2024 08:17-0500 Body weight 85.64 kg Nilda Linsey ACID MIXER.HAY SORTER Work Phone: [facility] 02-21-2024 08:17-0500 Diastolic blood pressure 78 mm[Hg] Nilda Merrillville ACID MIXER.HAY SORTER Work Phone: [facility] 02-21-2024 08:17-0500 Systolic blood pressure 124 mm[Hg] Nilda Linsey ACID MIXER.HAY SORTER Work Phone: [facility] 01-30-2024 14:05-0500 Body mass index (BMI) [Ratio] 30.55 kg/m2 Nilda Merrillville ACID MIXER.HAY SORTER Work Phone: [facility] 01-30-2024 14:05-0500 Body weight 85 kg Nilda Merrillville ACID MIXER.HAY SORTER Work Phone: [facility] 01-30-2024 14:05-0500 Diastolic blood pressure 72 mm[Hg] Nilda Merrillville ACID MIXER.HAY SORTER Work Phone: [facility] 01-30-2024 14:05-0500 Systolic blood pressure 116 mm[Hg] Nilda Linsey ACID MIXER.HAY SORTER Work Phone: [facility] 12-12-2023 15:32-0400 Body mass index (BMI) [Ratio] 30.49 kg/m2 Nilda Linsey ACID MIXER.HAY SORTER Work Phone: [facility] 12-12-2023 15:32-0400 Body weight 84.82 kg Nilda Linsey ACID MIXER.HAY SORTER Work Phone: [facility] 12-12-2023 15:32-0400 Diastolic blood pressure 66 mm[Hg] Nilda Linsey ACID MIXER.HAY SORTER Work Phone: [facility] 12-12-2023 15:32-0400 Systolic blood pressure 122 mm[Hg] Nilda Merrillville ACID MIXER.HAY SORTER Work Phone: [facility] 10-31-2023 10:56-0400 Body height 166.8 cm Sommer Hernandez PA-C Work Phone: [facility] 10-31-2023 10:56-0400 Body mass index (BMI) [Ratio] 30.8 kg/m2 Sommer Hernandez PA-C Work Phone: [facility] 10-31-2023 10:56-0400 Body temperature 98.2 [degF] Sommer Hernandez PA-C Work Phone: [facility] 10-31-2023 10:56-0400 Body weight 85.68 kg Sommer Hernandez PA-C Work Phone: [facility] Comment on above: in a boot at this time 10-31-2023 10:56-0400 Diastolic blood pressure 78 mm[Hg] Sommer Hernandez PA-C Work Phone: [facility] 10-31-2023 10:56-0400 Heart rate 102 /min Sommer Hernandez PA-C Work Phone: [facility] 10-31-2023 10:56-0400 Respiratory rate 18 /min Sommer Hernandez PA-C Work Phone: [facility] 10-31-2023 10:56-0400 Systolic blood pressure 116 mm[Hg] Sommer Hernandez PA-C Work Phone: [facility] 08-25-2023 13:59-0400 Body weight 86.91 kg Nilda Merrillville ACID MIXER.HAY SORTER Work Phone: [facility] 08-25-2023 13:59-0400 Diastolic blood pressure 60 mm[Hg] Nilda Merrillville ACID MIXER.HAY SORTER Work Phone: [facility] 08-25-2023 13:59-0400 Systolic blood pressure 110 mm[Hg] Nilda Linsey ACID MIXER.HAY SORTER Work Phone: [facility] 08-21-2023 10:35-0400 Body temperature 97.5 [degF] Alecia Vanessa ACID MIXER.HAY SORTER Work Phone: [facility] 08-21-2023 10:35-0400 Body weight 86.5 kg Alecia Vanessa ACID MIXER.HAY SORTER Work Phone: [facility] 08-21-2023 10:35-0400 Diastolic blood pressure 81 mm[Hg] Alecia Vanessa ACID MIXER.HAY SORTER Work Phone: [facility] 08-21-2023 10:35-0400 Heart rate 104 /min Alecia Vanessa ACID MIXER.HAY SORTER Work Phone: [facility] 08-21-2023 10:35-0400 Respiratory rate 18 /min Alecia Vanessa ACID MIXER.HAY SORTER Work Phone: [facility] 08-21-2023 10:35-0400 SaO2% (BldA) [Mass fraction] 98 % Alecia Vanessa ACID MIXER.HAY SORTER Work Phone: [facility] 08-21-2023 10:35-0400 Systolic blood pressure 112 mm[Hg] Alecia Vanessa ACID MIXER.HAY SORTER Work Phone: [facility] 07-29-2023 08:08-0400 Body weight 86.91 kg Nilda Linsey ACID MIXER.HAY SORTER Work Phone: [facility] 07-29-2023 08:08-0400 Diastolic blood pressure 66 mm[Hg] Nilda Linsey ACID MIXER.HAY SORTER Work Phone: [facility] 07-29-2023 08:08-0400 Systolic blood pressure 118 mm[Hg] Nilda Linsey ACID MIXER.HAY SORTER Work Phone: [facility] 07-11-2023 14:09-0400 Body weight 87.09 kg Nilda Linsey ACID MIXER.HAY SORTER Work Phone: [facility] 07-11-2023 14:09-0400 Diastolic blood pressure 74 mm[Hg] Nilda Linsey ACID MIXER.HAY SORTER Work Phone: [facility] 07-11-2023 14:09-0400 Systolic blood pressure 118 mm[Hg] Nilda Merrillville ACID MIXER.HAY SORTER Work Phone: [facility] 06-24-2023 14:28-0400 Body temperature 97.5 [degF] Que Chavez MD Work Phone: [facility] 06-24-2023 14:28-0400 Body weight 88.22 kg Que Chavez MD Work Phone: [facility] 06-24-2023 14:28-0400 Heart rate 80 /min Que Chavez MD Work Phone: [facility] 06-24-2023 14:28-0400 Respiratory rate 16 /min Que Chavez MD Work Phone: [facility] 05-16-2023 14:25-0400 Body weight 88.45 kg Kia Lucero MD Work Phone: [facility] 05-16-2023 14:25-0400 Diastolic blood pressure 70 mm[Hg] Kia Lucero MD Work Phone: [facility] 05-16-2023 14:25-0400 Systolic blood pressure 102 mm[Hg] Kia Lucero MD Work Phone: [facility] 05-03-2023 14:36-0500 Body weight 88.81 kg Delfina Watson ACID MIXER.CNM Work Phone: [facility] 05-03-2023 14:36-0500 Diastolic blood pressure 72 mm[Hg] Delfina Watson ACID MIXER.CNM Work Phone: [facility] 05-03-2023 14:36-0500 Systolic blood pressure 110 mm[Hg] Delfina Watson ACID MIXER.CNM Work Phone: [facility] 10-05-2022 11:36-0400 Body height 158.2 cm Sommer Hernandez PA-C Work Phone: [facility] 10-05-2022 11:36-0400 Body mass index (BMI) [Percentile] Per age and sex 98.12 % Sommer Hernandez PA-C Work Phone: [facility] 10-05-2022 11:36-0400 Body temperature 97.7 [degF] Sommer Hernandez PA-C Work Phone: [facility] 10-05-2022 11:36-0400 Body weight 92.08 kg Sommer Hernandez PA-C Work Phone: [facility] 10-05-2022 11:36-0400 Diastolic blood pressure 74 mm[Hg] Sommer Hernandez PA-C Work Phone: [facility] 10-05-2022 11:36-0400 Heart rate 98 /min Sommer Hernandez PA-C Work Phone: [facility] 10-05-2022 11:36-0400 Respiratory rate 18 /min Sommer Hernandez PA-C Work Phone: [facility] 10-05-2022 11:36-0400 Systolic blood pressure 124 mm[Hg] Sommer Hernandez PA-C Work Phone: [facility] 07-15-2022 15:03-0400 Body weight 88 kg Nilda Linsey ACID MIXER.HAY SORTER Work Phone: [facility] 07-15-2022 15:03-0400 Diastolic blood pressure 76 mm[Hg] Nilda Merrillville ACID MIXER.HAY SORTER Work Phone: [facility] 07-15-2022 15:03-0400 Systolic blood pressure 100 mm[Hg] Nilda Linsey ACID MIXER.HAY SORTER Work Phone: [facility] 05-27-2022 11:36-0400 Body temperature 97.3 [degF] Ramon Patrick MD Work Phone: [facility] 05-27-2022 11:36-0400 Body weight 86.55 kg Ramon Patrick MD Work Phone: [facility] 05-27-2022 11:36-0400 Diastolic blood pressure 86 mm[Hg] Ramon Patrick MD Work Phone: [facility] 05-27-2022 11:36-0400 Heart rate 19 /min Ramon Patrick MD Work Phone: [facility] 05-27-2022 11:36-0400 Respiratory rate 18 /min Ramon Patrick MD Work Phone: [facility] 05-27-2022 11:36-0400 SaO2% (BldA) [Mass fraction] 97 % Ramon Patrick MD Work Phone: [facility] 05-27-2022 11:36-0400 Systolic blood pressure 110 mm[Hg] Ramon Patrick MD Work Phone: [facility] 05-07-2022 08:58-0500 Body temperature 98.6 [degF] Sommer Hernandez PA-C Work Phone: [facility] 05-07-2022 08:58-0500 Body weight 87.32 kg Sommer Hernandez PA-C Work Phone: [facility] 05-07-2022 08:58-0500 Heart rate 100 /min Sommer Hernandez PA-C Work Phone: [facility] 05-07-2022 08:58-0500 Respiratory rate 16 /min Sommer Hernandez PA-C Work Phone: [facility] 04-12-2022 08:30-0500 Body weight 86.82 kg Nilda Merrillville ACID MIXER.HAY SORTER Work Phone: [facility] 04-12-2022 08:30-0500 Diastolic blood pressure 60 mm[Hg] Nilda Linsey ACID MIXER.HAY SORTER Work Phone: [facility] 04-12-2022 08:30-0500 Systolic blood pressure 100 mm[Hg] Nilda Merrillville ACID MIXER.HAY SORTER Work Phone: [facility] 03-16-2022 09:53-0500 Body weight 86.46 kg Nilda Linsey ACID MIXER.HAY SORTER Work Phone: [facility] 03-16-2022 09:53-0500 Diastolic blood pressure 68 mm[Hg] Nilda Merrillville ACID MIXER.HAY SORTER Work Phone: [facility] 03-16-2022 09:53-0500 Systolic blood pressure 100 mm[Hg] Nilda Merrillville ACID MIXER.HAY SORTER Work Phone: [facility] 01-18-2022 10:13-0500 Body temperature 97.7 [degF] Alecia Mendez ACID MIXER.HAY SORTER Work Phone: [facility] 01-18-2022 10:13-0500 Body weight 83.46 kg Alecia Vanessa ACID MIXER.HAY SORTER Work Phone: [facility] 01-18-2022 10:13-0500 Diastolic blood pressure 64 mm[Hg] Alecia Vanessa ACID MIXER.HAY SORTER Work Phone: [facility] 01-18-2022 10:13-0500 Heart rate 112 /min Alecia Vanessa ACID MIXER.HAY SORTER Work Phone: [facility] 01-18-2022 10:13-0500 Respiratory rate 16 /min Alecia Vanessa ACID MIXER.HAY SORTER Work Phone: [facility] 01-18-2022 10:13-0500 SaO2% (BldA) [Mass fraction] 96 % Alecia Vanessa ACID MIXER.HAY SORTER Work Phone: [facility] 01-18-2022 10:13-0500 Systolic blood pressure 118 mm[Hg] Alecia Vanessa ACID MIXER.HAY SORTER Work Phone: [facility] 10-28-2021 08:55-0400 Body height 163.8 cm Sommer Hernandez PA-C Work Phone: [facility] 10-28-2021 08:55-0400 Body mass index (BMI) [Percentile] Per age and sex 96.45 % Sommer Hernandez PA-C Work Phone: [facility] 10-28-2021 08:55-0400 Body temperature 97.9 [degF] Sommer Hernandez PA-C Work Phone: [facility] 10-28-2021 08:55-0400 Body weight 84.37 kg Sommer Hernandez PA-C Work Phone: [facility] 10-28-2021 08:55-0400 Heart rate 80 /min Sommer Hernandez PA-C Work Phone: [facility] 10-28-2021 08:55-0400 Respiratory rate 16 /min Sommer Hernandez PA-C Work Phone: [facility] 10-05-2021 12:50-0400 Body temperature 97.9 [degF] Alecia Vanessa ACID MIXER.HAY SORTER Work Phone: [facility] 10-05-2021 12:50-0400 Body weight 83.46 kg Alecia Vanessa ACID MIXER.HAY SORTER Work Phone: [facility] 10-05-2021 12:50-0400 Diastolic blood pressure 76 mm[Hg] Alecia Vanessa ACID MIXER.HAY SORTER Work Phone: [facility] 10-05-2021 12:50-0400 Heart rate 88 /min Alecia Vanessa ACID MIXER.HAY SORTER Work Phone: [facility] 10-05-2021 12:50-0400 Respiratory rate 16 /min Alecia Vanessa ACID MIXER.HAY SORTER Work Phone: [facility] 10-05-2021 12:50-0400 SaO2% (BldA) [Mass fraction] 98 % Alecia Vanessa ACID MIXER.HAY SORTER Work Phone: [facility] 10-05-2021 12:50-0400 Systolic blood pressure 124 mm[Hg] Alecia Vanessa ACID MIXER.HAY SORTER Work Phone: [facility] 07-13-2021 09:04-0400 Body height 163.4 cm Que Chavez MD Work Phone: [facility] 07-13-2021 09:04-0400 Body mass index (BMI) [Percentile] Per age and sex 96.38 % Que Chavez MD Work Phone: [facility] 07-13-2021 09:04-0400 Body temperature 97.7 [degF] Que Chavez MD Work Phone: [facility] 07-13-2021 09:04-0400 Body weight 83.01 kg Que Chavez MD Work Phone: [facility] 07-13-2021 09:04-0400 Heart rate 92 /min Que Chavez MD Work Phone: [facility] 07-13-2021 09:04-0400 Respiratory rate 20 /min Que Chavez MD Work Phone: [facility] 06-12-2021 09:04-0400 Body temperature 97.7 [degF] Que Chavez MD Work Phone: [facility] 06-12-2021 09:04-0400 Body weight 82.1 kg Que Chavez MD Work Phone: [facility] 06-12-2021 09:04-0400 Diastolic blood pressure 80 mm[Hg] Que Chavez MD Work Phone: [facility] 06-12-2021 09:04-0400 Heart rate 80 /min Que Chavez MD Work Phone: [facility] 06-12-2021 09:04-0400 Respiratory rate 18 /min Que Chavez MD Work Phone: [facility] 06-12-2021 09:04-0400 Systolic blood pressure 118 mm[Hg] Que Chavez MD Work Phone: [facility] Encounters Encounter Date Encounter Type Care Provider Facility Start: 10-12-2024 End: 10-13-[address] Ruiz Vega DO Work Phone: [facility] Start: 10-12-2024 End: 10-13-2024 Patient encounter procedure Delfina Watson CNM [facility] Work Phone: Start: 10-09-2024 End: 10-09-2024 ambulatory RUIZ VEGA Facility:[facility] Start: 10-05-2024 End: 10-05-2024 Patient encounter procedure Delfina Watson APRN.CNM Work Phone: OB/Gynecology Comment on above: 39 weeks gestation o f (HCC) (Primary Dx); Supervision of high risk in third trimester (HCC); Obesity in (HCC); Positive GBS test Start: 10-05-2024 End: 10-05-2024 ambulatory RUIZ VEGA Facility:[facility] Start: 09-25-2024 End: 09-25-2024 Patient encounter procedure Janelle Marin MD Work Phone: OB/Gynecology Comment on above: Supervision of high risk in third trimester (HCC) (Primary Dx); 38 weeks gestation of (HCC) Start: 09-25-2024 End: 09-25-2024 ambulatory RUIZ VEGA Facility:[facility] Start: 09-18-2024 End: 09-18-2024 Patient encounter procedure Alo Thompson MD Work Phone: OB/Gynecology Comment on above: Supervision of high risk in third trimester (HCC) (Primary Dx); 37 weeks gestation of (HCC); Positive GBS test Start: 09-18-2024 End: 09-18-2024 ambulatory RUIZ VEGA Facility:[facility] Start: 09-12-2024 End: 09-12-2024 Patient encounter procedure Castillo Mckeno MD Work Phone: OB/Gynecology Comment on above: 36 weeks gestation o f (HCC) (Primary Dx); Supervision of high risk in third trimester (HCC); Obesity affecting in third trimester, unspecified obesity type (HCC); Heartburn during in third trimester (HCC) Start: 09-12-2024 End: 09-12-2024 ambulatory RUIZ VEGA Facility:[facility] Start: 09-04-2024 End: 09-04-2024 Follow-up encounter [...] End: 09-04-2024 ambulatory RUIZ L VEGA Facility:[facility] Start: 08-30-2024 End: 08-30-2024 Patient encounter procedure La Del Castillo APRN.CNM Work Phone: OB/Gynecology Comment on above: Supervision of high risk in third trimester (HCC) (Primary Dx); Obesity affecting in third trimester, unspecified obesity type (HCC); 34 weeks gestation of (HCC) Start: 08-30-2024 End: 08-30-2024 ambulatory RUIZ L VEGA Facility:[facility] Start: 08-16-2024 End: 08-16-2024 Patient encounter procedure Lindsey Moreno APRN.HAY SORTER Work Phone: OB/Gynecology Comment on above: Supervision of high risk in third trimester (HCC) (Primary Dx); 32 weeks gestation of (HCC); Obesity affecting in third trimester, unspecified obesity type (HCC) Start: 08-16-2024 Encounter for genera l adult medical examination without abnormal findings RUIZ VEGA [place] Start: 08-16-2024 End: 08-16-2024 ambulatory RUIZ L VEGA Facility:[facility] Start: 08-13-2024 End: 08-13-2024 Patient encounter procedure Ruiz Wagner Vega DO Work Phone: [facility] Comment on above: Well adult exam ([facility] Dx); 31 weeks gestation of (HCC); Class 2 obesity with body mass index (BMI) of 35.0 to 35.9 in adult, unspecified obesity type, unspecified whether serious comorbidity present; Gastroesophageal reflux disease without esophagitis Start: 08-13-2024 End: 08-13-2024 Patient encounter status Ruiz L Vega DO Work Phone: [facility] Work Phone: Start: 08-13-2024 End: 08-13-2024 ambulatory RUIZ L VEGA Facility:[facility] Start: 08-06-2024 End: 08-08-2024 Telephone encounter La Del Castillo APRN.CNM Work Phone: OB/Gynecology Comment on above: breast pump Start: 08-03-2024 End: 08-03-2024 Telephone encounter Nurse Real Estate Transaction Coordinator Manisha Bond Work Phone: Obstetrics/Gynecology Comment on [...] 08-01-2024 End: 08-01-2024 ambulatory CASTILLO MCKEON Facility:[facility] Start: 07-23-2024 End: 09-22-2024 Follow-up encounter Castillo Mckeon MD Work Phone: OB/Gynecology Start: 07-20-2024 End: 07-20-2024 Patient encounter procedure Lindsey Moreno APRN.HAY SORTER Work Phone: OB/Gy[facility]cology Comment on above: Supervision of high risk in third trimester (HCC) (Primary Dx); 28 weeks gestation of (HCC); Obesity affecting in third trimester, unspecified obesity type (HCC); Vaginal discharge during in third trimester (HCC) Start: 07-20-2024 End: 07-20-2024 ambulatory SELF Facility:[facility] Start: 07-19-2024 End: 07-19-2024 Telephone encounter [...] End: 06-21-2024 ambulatory LA DEL CASTILLO Facility:[facility] Start: 06-19-2024 End: 06-19-2024 ambulatory KIA LUCERO Facility:[facility] Start: 06-19-2024 End: 06-19-2024 Patient encounter procedure Janelle Marin MD Work Phone: OB/Gynecology Comment on above: 24 weeks gestation o f (HCC) (Primary Dx); Obesity in (HCC); Screening for diabetes mellitus Start: 06-06-2024 End: 06-06-2024 ambulatory Kia Lucero MD Work Phone: OB/Gynecology Comment on above: Possible [place] hic ks Start: 06-06-2024 End: 06-06-2024 Patient encounter procedure La Del Castillo APRN.CNM Work Phone: OB/Gynecology Comment on above: Obesity in (HCC) (Primary Dx); Supervision of normal first teen in second trimester (HCC); 22 weeks gestation of (HCC); Cramping affecting , antepartum (HCC) Start: 05-29-2024 End: 07-29-2024 Follow-up encounter Delfina Watson APRN.CNM Work Phone: OB/Gynecology Start: 05-28-2024 End: 05-28-2024 Telephone encounter Nurse Real Estate Transaction Coordinator Manisha Bond Work Phone: Obstetrics/Gynecology Comment on above: PRAF Start: 05-25-2024 End: 05-25-2024 Office outpatient visit 15 minutes Kia Lucero MD Work Phone: OB/Gynecology Comment on above: Supervision of jas l first teen in second trimester (Primary Dx); Obesity in ; 20 weeks gestation of Start: 05-25-2024 End: 05-25-2024 ambulatory DELFINA WATSON Facility:[facility] Start: 05-25-2024 End: 05-25-2024 Patient encounter procedure [employer] Real Estate Transaction Coordinator [facility] Comment on above: Obesity in (Primary Dx); Supervision of normal first teen in first trimester; 13 weeks gestation of Start: 05-01-2024 End: 05-01-2024 Telephone encounter Janelle Marin MD Work Phone: OB/Gynecology Comment on above: Question (OB Questio n) Start: 04-28-2024 End: 04-28-2024 Emergency department patient visit Que Chavez Facility:[facility] Start: 04-27-2024 End: 04-27-2024 ambulatory DELFINA WATSON Facility:[facility] Start: 04-27-2024 End: 04-27-2024 Patient encounter procedure Delfina Walter ACID MIXER.CNM Work Phone: OB/Gynecology Comment on above: Supervision of jas l first teen in second trimester (Primary Dx); Obesity in ; 16 weeks gestation of ; Dizziness Start: 04-13-2024 End: 04-13-2024 Telephone encounter La Del Castillo APRN.CNM Work Phone: OB/Gynecology Start: 04-10-2024 End: 04-10-2024 Refill Que Chavez MD Work Phone: [facility] Comment on above: Refill Request Start: 04-03-2024 End: 04-03-2024 ambulatory NILDA LINSEY Facility:[facility] Start: 04-03-2024 End: 04-03-2024 Patient encounter procedure Delfina Watson ACID MIXER.CNM Work Phone: OB/Gynecology Comment on above: Supervision of jas l first teen in first trimester (Primary Dx); 13 weeks gestation of ; Obesity in Encounter for jyoti ferrell screening for malformation using ultrasound (Primary Dx); 13 weeks gestation of Start: 03-28-2024 End: 03-28-2024 ambulatory DUNCAN MUNGUIA Facility:[facility] Start: 03-28-2024 End: 03-28-2024 Patient encounter procedure Duncan Munguia MD Work Phone: OB/Gynecology Comment on above: Vaginal irritation ( Primary Dx); Vaginal discharge; Encounter for care in first trimester of first ; 12 weeks gestation of Start: 03-27-2024 End: 03-27-2024 ambulatory Delfina Watson ACID MIXER.CNM Work Phone: OB/Gynecology Comment on above: Possible yeast infec tion Start: 03-22-2024 End: 03-22-2024 Telephone encounter La Del Castillo ACID MIXER.CNM Work Phone: OB/Gynecology Comment on above: Medication Question Start: 03-19-2024 End: 03-19-2024 ambulatory QUE CHAVEZ Facility:[facility] Start: 03-19-2024 End: 03-19-2024 Patient encounter procedure Josiane Goodwin ACID MIXER.HAY SORTER Work Phone: [facility] Comment on above: Acute non-recurrent frontal sinusitis (Primary Dx) Start: 03-13-2024 End: 03-13-2024 Office outpatient new 30 minutes Roberto Powers PA-C Work Phone: [facility] Comment on above: Sore throat (Primary Dx) Start: 03-13-2024 End: 03-13-2024 ambulatory QUE CHAVEZ Facility:[facility] Start: 03-10-2024 End: 03-10-2024 ambulatory Vivian Jefferson RN NURSE [employer] Start: 03-10-2024 End: 03-10-2024 Patient encounter procedure Vivian Jefferson RN NURSE ON [facility] Comment on above: Clinical Update Start: 02-24-2024 End: 02-24-2024 Get Medical Advice Nilda Stiles ACID MIXER.HAY SORTER Work Phone: OB/Gynecology Comment on above: Lab Orders Start: 02-23-2024 End: 02-23-2024 Telephone encounter Pauline Au RN Obstetrics/Gynecology Comment on above: PRAF Start: 02-21-2024 End: 02-21-2024 ambulatory QUE CHAVEZ Facility:[facility] Start: 02-21-2024 End: 02-21-2024 Patient encounter procedure Nilda Bellcalf ACID MIXER.HAY SORTER Work Phone: OB/Gynecology Comment on above: Encounter for prenat al care in first trimester of first (Primary Dx); 7 weeks gestation of ; Vaginal irritation; BMI 32.0-32.9,adult; Supervision of normal first teen in first trimester Start: 01-30-2024 End: 01-30-2024 ambulatory QUE CHAVEZ Facility:[facility] Start: 01-30-2024 End: 01-30-2024 Patient encounter procedure Nilda Stiles ACID MIXER.HAY SORTER Work Phone: OB/Gynecology Comment on above: Encounter for pregna ncy test, result positive (Primary Dx) Start: 12-15-2023 End: 12-15-2023 Telephone encounter Nilda Stiles APRN.HAY SORTER Work Phone: OB/Gynecology Comment on above: Results Start: 12-12-2023 End: 12-12-2023 ambulatory QUE CHAVEZ Facility:[facility] Start: 12-12-2023 End: 12-12-2023 Patient encounter procedure Nilda Bellcalf ACID MIXER.HAY SORTER Work Phone: OB/Gynecology Comment on above: Vaginal discharge (P rimary Dx); Vaginal irritation; Family history of thyroid disorder Start: 11-15-2023 End: 11-15-2023 ambulatory [facility] Facility:[facility] Start: 10-31-2023 End: 10-31-2023 ambulatory QUE CHAVEZ Facility:[facility] Start: 10-31-2023 End: 10-31-2023 Patient encounter procedure Sommer Hernandez PA-C Work Phone: [facility] Comment on above: Encounter for wellne ss examination in adult (Primary Dx); Mild intermittent asthma with (acute) exacerbation; Seborrhea; Adverse food reaction, initial encounter Start: 10-31-2023 End: 10-31-2023 Patient encounter status Sommer Hrenandez PA-C Work Phone: [facility] Work Phone: Start: 10-28-2023 End: 10-28-2023 Refill Que Chavez MD Work Phone: [facility] Comment on above: Refill Request Start: 10-18-2023 End: 10-18-2023 ambulatory [facility] Facility:[facility] Start: 09-05-2023 Refill Que Chavez MD Work Phone: [facility] Comment on above: Refill Request Start: 08-25-2023 End: 08-25-2023 Patient encounter procedure Nilda Linsey ACID MIXER.HAY SORTER Work Phone: OB/Gynecology Comment on above: Vaginal burning (Yudith bell Dx) Start: 08-21-2023 End: 08-21-2023 Patient encounter procedure Alecia Vanessa ACID MIXER.HAY SORTER Work Phone: [facility] Comment on above: Sore throat (Primary Dx); Viral illness Start: 08-02-2023 Telephone encounter Nilda [facility] ACID MIXER.HAY SORTER Work Phone: OB/Gynecology Comment on above: Results Start: 07-29-2023 End: 07-29-2023 Patient encounter procedure Nilda Merrillville ACID MIXER.HAY SORTER Work Phone: OB/Gynecology Comment on above: Vaginal discharge (P rimary Dx) Start: 07-28-2023 Refill Rachael Huffman ACID MIXER.HAY SORTER Work Phone: OB/Gynecology Comment on above: Refill Request Start: 07-12-2023 Telephone encounter Nilda [facility] group home ACID MIXER.HAY SORTER Work Phone: OB/Gynecology Comment on above: Results Start: 07-11-2023 End: 07-11-2023 Patient encounter procedure Nilda Linsey AC[employer] MIXER.HAY SORTER Work Phone: OB/Gynecology Comment on above: Vaginal [...] End: 05-13-2023 Subsequent hospital visit by physician [facility] Work Phone: Radiology Comment on above: Pelvic pain in femal e [R10.2] Start: 05-03-2023 End: 05-03-2023 Patient encounter procedure Delfina Watson APRN.CNM Work Phone: OB/Gynecology Comment on above: Vaginal discharge (P rimary Dx); Vaginal itching; Pelvic pain in female Start: 04-28-2023 ambulatory Sommer Hernandez PA-C Work Phone: [facility] [place] Comment on above: Allergy testing Start: 11-11-2022 ambulatory Nilda Stlies ACID MIXER.HAY SORTER Work Phone: [place] [facility] Start: 11-11-2022 Patient encounter procedure Re nee [place] ACID MIXER.HAY SORTER Work Phone: OB/Gynecology Comment on above: Should I make an ck ointment Start: 10-05-2022 End: 10-05-2022 Patient encounter procedure Sommer Hernandez PA-C Work Phone: [facility] [place] Comment on above: Encounter for wellne ss examination in adult (Primary Dx); Encounter for immunization Start: 10-05-2022 End: 10-05-2022 Patient encounter status Sommer Hernandez PA-C Work Phone: [facility] Work Phone: Start: 07-15-2022 End: 07-15-2022 Patient encounter procedure Nilda [place] ACID MIXER.HAY SORTER Work Phone: OB/Gynecology Comment on above: Missed period (Prima ry Dx); Encounter for other contraceptive management Start: 07-09-2022 ambulatory Nilda [place] ACID MIXER.HAY SORTER Work Phone: OB/Gynecology Comment on above: control Start: 05-27-2022 End: 05-27-2022 Patient encounter procedure Ramon Patrick MD Work Phone: [facility] Comment on above: URI, acute (Primary Dx); Wheezing Start: 05-10-2022 E-mail encounter fro m caregiver Nilda Bellcalf ACID MIXER.HAY SORTER Work Phone: [facility] Start: 05-10-2022 Patient encounter procedure Re nee [place] ACID MIXER.HAY SORTER Work Phone: OB/Gynecology Comment on above: appointment 05/17/22 Start: 05-07-2022 End: 05-07-2022 Patient encounter procedure Sommer Hernandez PA-C Work Phone: [facility] Comment on above: Dysfunction of both eustachian tubes (Primary Dx); Seasonal allergies Start: 04-30-2022 ambulatory Nilda [place] ACID MIXER.HAY SORTER Work Phone: OB/Gynecology Comment on above: Bacterial Vaginosis Start: 04-13-2022 Telephone encounter Nilda [facility] edna ACID MIXER.HAY SORTER Work Phone: OB/Gynecology Comment on above: Results Start: 04-12-2022 End: 04-12-2022 Patient encounter procedure Nilda Linsey ACID MIXER.HAY SORTER Work Phone: OB/Gynecology Comment on above: Vaginal irritation ( Primary Dx) Start: 04-09-2022 Telephone encounter Nilda [facility] group home AC[employer] MIXER.HAY SORTER Work Phone: OB/Gynecology Comment on above: Appointment (1st att empt no answer, no voicemail. Called to R/S w/ R.[place] for 2/6.) Start: 03-16-2022 End: 03-16-2022 Patient encounter procedure Nilda Stiles ACID MIXER.HAY SORTER Work Phone: OB/Gynecology Comment on above: Pelvic pain in femal e (Primary Dx); Encounter for surveillance of contraceptive pills Start: 01-18-2022 End: 01-18-2022 Patient encounter procedure Alecia Hodarrin FRITZ.HAY SORTER Work Phone: [facility] Comment on above: Acute cough (Primary Dx); Fever, unspecified fever cause; Sore throat; URI with cough and congestion Start: 12-28-2021 End: 12-28-2021 Patient encounter procedure [facility] [place] [facility] [place] Comment on above: Encounter for immuni zation (Primary Dx) Start: 10-28-2021 End: 10-28-2021 Patient encounter procedure Sommer Hernandez PA-C Work Phone: [facility] [place] Comment on above: Seasonal allergies ( Primary Dx) Start: 10-05-2021 End: 10-05-2021 Patient encounter procedure Alecia Hodarrin FRITZ.HAY SORTER Work Phone: [place] [facility] Comment on above: Upper respiratory sy mptom (Primary Dx); Suspected COVID-19 virus infection Start: 09-18-2021 End: 09-18-2021 ambulatory Erinn Woody MD Work Phone: OB/Gynecology Comment on above: 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 Start: 09-18-2021 End: 09-18-2021 Patient encounter procedure Erinn Woody MD Work Phone: [place] [facility] Start: 07-13-2021 End: 07-13-2021 Patient encounter procedure Que Chavez MD Work Phone: [facility] [place] Comment on above: Encounter for [facility] (w ell child check) with abnormal findings [...] et rgnt non-auto w/o micrscp Delfina Watson ACID MIXER.CNM Work Phone: Start: 09-25-2024 Urnls dip stick/tabl [...] rgnt non-auto w/o micrscp La Del Castillo ACID MIXER.CNM Work Phone: Start: 06-06-2024 Urnls dip stick/tabl et rgnt auto w/o microscopy La Del Castillo ACID MIXER.CNM Work Phone: Start: 05-25-2024 Us preg uterus after 1st trimest / gestation Delfina Watson ACID MIXER.CNM Work Phone: Start: 04-03-2024 Us nuchal translucency 1st gestation Nilda Linsey ACID MIXER.HAY SORTER Work Phone: Start: 03-13-2024 STREP A MOLECULAR (POC) Delfina Nicholas ACID MIXER.HAY SORTER Work Phone: Start: 02-24-2024 Antibody screen NILDA LOWE Comment on above: Order Comment: Speci men Type: SWAB Ordering Facility: [facility] Address: [address] [place] [address] Performed By: #### C VTV, BVAMP #### [facility] CLIA [id number] [address] [place] [address] [place] [address] [place] Start: 02-21-2024 Us uterus l imited fetuses Nilda [place] ACID MIXER.HAY SORTER Work Phone: Start: 01-30-2024 UA DIP,URINE HCG (POC) Nilda Bellcalf ACID MIXER.HAY SORTER Work Phone: Start: 10-31-2023 Adult depression scr eening assessment Nilda Linsey ACID MIXER.HAY SORTER Work Phone: Start: 08-21-2023 STREP A MOLECULAR (POC) [facility] Provider Start: 07-11-2023 BACTERIAL VAGINOSIS NAAT Nilda Bellcalf ACID MIXER.HAY SORTER Work Phone: Start: 07-11-2023 Iadna trichomonas vaginalis amplified probe tech Nilda Bellcalf ACID MIXER.HAY SORTER Work Phone: Start: 05-13-2023 Us transvaginal Delfina Watson ACID MIXER.CNM Work Phone: Start: 05-03-2023 BACTERIAL VAGINOSIS NAAT Delfina Watson ACID MIXER.CNM Work Phone: Start: 05-03-2023 Iadna chlamydia trachomatis amplified probe tq Delfina Watson ACID MIXER.CNM Work Phone: Start: 07-15-2022 Urine test visual color cmprsn meths Nilda [place] ACID MIXER.HAY SORTER Work Phone: Start: 12-28-2021 mention-Essential Testing COVI D-19 PRIMARY SERIES VACCINE, AGE 12+ YR Sommer Hernandez PA-C Work Phone: Start: 07-13-2021 Adult depression scr eening assessment Que Chavez MD Work Phone: Start: 05-05-2017 Adult depression scr eening assessment Que Chavez MD Work Phone: Plan of Treatment Date Care Activity Detail Author Start: 06-13-2031 Urine microalbumin profile [facility] Start: 08-13-2025 Annual PCP Team [employer] lluvia Disease Visit Annual PCP Team Chronic Disease Visit [facility] Start: 03-19-2025 Annual PCP Team [employer] lluvia Disease Visit Annual PCP Team Chronic Disease Visit [facility] Start: 02-20-2025 GC (Gonorrhea) Scree alexsandra (18) GC (Gonorrhea) Screening () [facility] Start: 02-20-2025 Screening for Chlamy morgan trachomatis Chlamydia Screening () [facility] Start: 12-14-2024 End: 12-14-2024 Patient encounter procedure 12/14/2024 1:40 PM EDT Office Visit [facility] [place] [address] [place], [place] [id number] Ruiz Vega DO [address] [place], [place] [id number] Follow up [facility] [place] Comment on above: Follow up Start: 11-05-2024 Influenza vaccination Influenza Vacc ine (#1) [facility] Start: 10-30-2024 Annual PCP Team [employer] lluvia Disease Visit Annual PCP Team Chronic Disease Visit [facility] Start: 10-30-2024 Anxiety Screening Anxiety Screening [facility] Start: 10-30-2024 Asthma Control Test Asthma Control T est [facility] Start: 10-30-2024 Depression Screening Depression Scre ening [facility] Start: 10-15-2024 ambulatory Ambulatory Facility:[facility] Start: 10-13-2024 Patient discharge [facility] Start: 10-12-[address] [facility] Start: 10-12-2024 Obstetric monitoring [facility] Start: 10-12-[address] [facility] Start: 10-12-2024 [facility] Start: 10-09-2024 End: 10-09-2024 Patient encounter procedure 10/09/2024 1:40 PM EDT Routine Office Visit OB/Gynecology [address] [place] [address] Castillo Mckeon MD [address] [place] [address] OB OB/Gynecology Comment on above: OB Start: 10-05-2024 End: 10-05-2024 Patient encounter procedure 10/05/2024 4:30 PM EDT Routine Office Visit OB/Gynecology [address] [place] [address] Delfina Watson APRN.[facility] [address] [place] [address] OB OB/Gynecology Comment on above: OB Start: 10-02-2024 End: 10-02-2024 Patient encounter procedure 10/02/2024 1:30 PM EDT Routine Office Visit OB/Gynecology [address] [place] [address] Kia Lucero MD [address] [place] [address] OB OB/Gynecology Comment on above: OB Start: 09-25-2024 End: 09-25-2024 Patient encounter procedure 09/25/2024 2:20 PM EDT Routine Office Visit OB/Gynecology [address] [place] [address] Janelle Marin MD [address] [place] [address] OB OB/Gynecology Comment on above: OB Start: 09-18-2024 End: 09-18-2024 Patient encounter procedure 09/18/2024 1:30 PM EDT Routine Office Visit OB/Gynecology [address] [place] [address] Alo Thompson MD [address] [place] [address] (Fax) OB OB/Gynecology Comment on above: OB Start: 09-12-2024 End: 09-12-2024 Patient encounter procedure 09/12/2024 10:10 AM EDT Routine Office Visit OB/Gynecology [address] [place] [address] Castillo Mckeon MD [address] [place] [address] (Fax) OB OB/Gynecology Comment on above: OB Start: 09-04-2024 [facility] Start: 09-04-2024 [facility] Start: 08-30-2024 End: 08-30-2024 Patient encounter procedure 08/30/2024 3:15 PM EDT Routine Office Visit OB/Gynecology [address] [place] [address] La Del Castillo APRN.CNM [address] [place] [address] (Fax) Ob OB/Gynecology Comment on above: Ob Start: 08-16-2024 End: 08-16-2024 Patient encounter procedure 08/16/2024 2:30 PM EDT Routine Office Visit OB/Gynecology [address] [place] [address] Lindsey Moreno APRN.HAY SORTER [address] [place] [address] (Fax) OB OB/Gynecology Comment on above: OB Start: 08-13-2024 End: 08-13-2024 Patient encounter procedure 08/13/2024 9:20 AM EDT Office Visit [facility] [place] [address] [place] [address] Ruiz Vega L, DO [address] [place] [address] Transfer from peds/[facility] Comment on above: Transfer from peds/[facility] Start: 08-03-2024 End: 08-03-2024 Patient encounter procedure 08/03/2024 2:30 PM EDT Routine Office Visit OB/Gynecology [address] [place] [address] Erinn Schwartz MD [address] [place] [address] OB OB/Gynecology Comment on above: OB Start: 08-02-2024 End: 08-02-2024 Patient encounter procedure 08/02/2024 10:30 AM EDT Routine Office Visit OB/Gynecology [address] [place] [address] La Del Castillo APRN.CNM [address] [place] [address] OB OB/Gynecology Comment on above: OB Start: 08-01-2024 End: 10-31-2024 BILE ACIDS, TOTAL [facility] Work Phone: Comment on above: Expected: 08/01/2024 , Expires: 10/31/2024 Start: 07-20-2024 End: 07-20-2024 Patient encounter procedure 07/20/2024 8:45 AM EDT Routine Office Visit OB/Gynecology [address] [place] [address] Lindsey Moreno APRN.HAY SORTER [address] [place] [address] OB Routine OB/Gynecology Comment on above: OB Routine Start: 07-20-2024 End: 07-20-2024 ambulatory 07/20/2024 8:30 AM EDT Results Only [place] [facility] [address] [place] [address] Glucose Test and LABs [facility] Comment on above: Glucose Test and LAB s Start: 06-23-2024 Annual PCP Team [employer] lluvia Disease Visit Annual PCP Team Chronic Disease Visit [facility] Start: 06-19-2024 End: 06-19-2024 Patient encounter procedure 06/19/2024 2:40 PM EDT Routine Office Visit OB/Gynecology [address] [place] [address] Kia Lucero MD [address] [place] [address] OB OB/Gynecology Comment on above: OB Start: 06-19-2024 End: 09-18-2024 ANEMIA REFLEX PANEL ANEMIA REFLEX PANEL Lab Routine 24 weeks gestation of ([facility]) Expected: 06/19/2024, Expires: 09/18/2024 [facility] Comment on above: Expected: 06/19/2024 , Expires: 09/18/2024 Start: 06-19-2024 End: 06-19-2025 GESTATIONAL GLUCOSE SCREEN, 1-HOUR, 50 GRAM, NON-FASTING GESTATIONAL GLUCOSE SCREEN, 1-HOUR, 50 GRAM, NON-FASTING Lab Routine 24 weeks gestation of ([facility]) Screening for diabetes mellitus Expected: 06/19/2024, Expires: 06/19/2025 [facility] Work Phone: Comment on above: Expected: 06/19/2024 , Expires: 06/19/2025 Start: 06-19-2024 End: 06-19-2025 SYPHILIS TREPONEMAL W/REFLEX SYPHILIS TREPONEMAL W/REFLEX Lab Routine 24 weeks gestation of ([facility]) Expected: 06/19/2024, Expires: 06/19/2025 [facility] Comment on above: Expected: 06/19/2024 , Expires: 06/19/2025 Start: 05-25-2024 End: 05-25-2024 Patient encounter procedure [facility] Comment on above: Anatomy OB Start: 05-03-2024 GC (Gonorrhea) Scree alexsandra (18) GC (Gonorrhea) Screening () [facility] Start: 05-03-2024 Screening for Chlamy morgan trachomatis Chlamydia Screening () [facility] Start: 04-27-2024 End: 04-27-2024 Patient encounter procedure 04/27/2024 1:15 PM EST Routine Office Visit OB/Gynecology [address] [place], [place] [id number] Delfina Watson APRN.CN [address] [place] [address] OB OB/Gynecology Comment on above: OB Start: 04-03-2024 End: 04-03-2024 Patient encounter procedure Maternal Medicine Comment on above: Nuchal Nuchal/ OB Start: 04-03-2024 End: 04-03-2025 OBSTETRIC ULTRASOUND WHI OBSTETRIC ULTRASOUND WHI Anc Imaging Routine Supervision of normal first teen in first trimester 13 weeks gestation of Obesity in Expected: 04/03/2024, Expires: 04/03/2025 [facility] Work Phone: Comment on above: Expected: 04/03/2024 , Expires: 04/03/2025 Start: 03-28-2024 End: 03-28-2024 Patient encounter procedure 03/28/2024 9:10 AM EST Routine Office Visit OB/Gynecology [address] [place], [place] [id number] Duncan Munguia MD [address] [place] [address] vaginal infection OB/Gynecology Comment on above: vaginal infection Start: 02-21-2024 End: 05-22-2024 ANEMIA REFLEX PANEL ANEMIA REFLEX PANEL Lab Routine Encounter for care in first trimester of first 7 weeks gestation of Expected: 02/21/2024, Expires: 05/22/2024 [facility] Work Phone: Comment on above: Expected: 02/21/2024 , Expires: 05/22/2024 Start: 02-21-2024 End: 05-22-2024 Chromosome 21 trisomy [Presence] in Blood or Tissue by Cytogenetics [id number] PLUS Lab Routine 7 weeks gestation of Expected: 02/21/2024, Expires: 05/22/2024 [facility] Comment on above: Expected: 02/21/2024 , Expires: 05/22/2024 Start: 02-21-2024 End: 05-22-2024 Hemoglobin A1c in Blood HEMOGLOBIN A1C Lab Routine Encounter for care in first trimester of first 7 weeks gestation of Expected: 02/21/2024, Expires: 05/22/2024 [facility] Comment on above: Expected: 02/21/2024 , Expires: 05/22/2024 Start: 02-21-2024 End: 05-22-2024 Hepatitis B virus surface Ag [Presence] in Serum HEPATITIS B SURFACE ANTIGEN Lab Routine Encounter for care in first trimester of first 7 weeks gestation of Expected: 02/21/2024, Expires: 05/22/2024 [facility] Comment on above: Expected: 02/21/2024 , Expires: 05/22/2024 Start: 02-21-2024 End: 05-22-2024 Hepatitis C virus Ab [Presence] in Serum HEPATITIS C ANTIBODY IA WITH CONFIRMATION Lab Routine Encounter for care in first trimester of first 7 weeks gestation of Expected: 02/21/2024, Expires: 05/22/2024 [facility] Comment on above: Expected: 02/21/2024 , Expires: 05/22/2024 Start: 02-21-2024 End: 05-22-2024 HIV 1+2 Ab [Presence] in Serum or Plasma by Immunoassay HIV 1/2 COMBO WITH REFLEX TO DIFFERENTIATION Lab Routine Encounter for care in first trimester of first 7 weeks gestation of Expected: 02/21/2024, Expires: 05/22/2024 [facility] Comment on above: Expected: 02/21/2024 , Expires: 05/22/2024 Start: 02-21-2024 End: 02-20-2025 NUCHAL TRANSLUCENCY WHI NUCHAL TRANSLUCENCY WHI Anc Imaging Routine Encounter for care in first trimester of first 7 weeks gestation of Expected: 02/21/2024, Expires: 02/20/2025 [facility] Comment on above: Expected: 02/21/2024 , Expires: 02/20/2025 Start: 02-21-2024 End: 05-22-2024 RUBELLA IGG ANTIBODY RUBELLA IGG ANTIBODY Lab Routine Encounter for care in first trimester of first 7 weeks gestation of Expected: 02/21/2024, Expires: 05/22/2024 [facility] Comment on above: Expected: 02/21/2024 , Expires: 05/22/2024 Start: 02-21-2024 End: 05-22-2024 SYPHILIS TREPONEMAL W/REFLEX SYPHILIS TREPONEMAL W/REFLEX Lab Routine Encounter for care in first trimester of first 7 weeks gestation of Expected: 02/21/2024, Expires: 05/22/2024 [facility] Comment on above: Expected: 02/21/2024 , Expires: 05/22/2024 Start: 02-21-2024 End: 05-22-2024 TYPE + SCREEN TYPE + SCREEN Blood Bank Routine Encounter for care in first trimester of first 7 weeks gestation of Expected: 02/21/2024, Expires: 05/22/2024 [facility] Comment on above: Expected: 02/21/2024 , Expires: 05/22/2024 Start: 02-21-2024 End: 02-21-2024 Patient encounter procedure 02/21/2024 8:15 AM EST Initial Office Visit OB/Gynecology [address] [place] [address] Nilda Stiles APRN.HAY SORTER [address] [place] [address] New OB OB/Gynecology Comment on above: New OB Start: 12-12-2023 End: 03-12-2024 THYROID PEROXIDASE ANTIBODY [facility] Comment on above: Expected: 12/12/2023 , Expires: 03/12/2024 Start: 12-12-2023 End: 03-12-2024 Thyrotropin [Units/volume] in Serum or Plasma [facility] Work Phone: Comment on above: Expected: 12/12/2023 , Expires: 03/12/2024 Start: 12-12-2023 End: 03-12-2024 Thyroxine (T4) free [Mass/volume] in Serum or Plasma [facility] Comment on above: Expected: 12/12/2023 , Expires: 03/12/2024 Start: 12-12-2023 End: 03-12-2024 Triiodothyronine (T3) Free [Mass/volume] in Serum or Plasma [facility] Comment on above: Expected: 12/12/2023 , Expires: 03/12/2024 Start: 12-07-2023 End: 12-07-2023 Patient encounter procedure 12/07/2023 8:30 AM EDT Office Visit Allergy [address] [phone] Tio Wilcox MD [address] [place], [place] [phone] Adverse food reaction, initial encounter [T78.1XXA] Allergy Comment on above: Adverse food reactio n, initial encounter [T78.1XXA] Start: 11-11-2023 End: 11-11-2023 Patient encounter procedure 11/11/2023 8:00 AM EDT Office Visit OB/Gynecology [address] [place] [address] Nilda Stiles APRN.HAY SORTER [address] [place] [address] yeast infection resistant OB/Gynecology Comment on above: yeast infection resi stant Start: 11-06-2023 Covid-19 Vaccine ( season) Covid-19 Vaccine ( season) [facility] Start: 11-06-2023 Influenza vaccination [facility] Start: 10-31-2023 End: 10-31-2023 Patient encounter procedure 10/31/2023 11:00 AM EDT Office Visit [facility] [place] [address] [place] [address] Sommer Hernandez PA-C [address] [place] [address] [facility] [place] Comment on above: [facility] Start: 03-16-2023 CHLAMYDIA SCREENING (18-24) CHLAMYDIA SCREENING (18-24) [facility] Start: 03-16-2023 CHLAMYDIA SCREENING (<18) CHLA MYDIA SCREENING (<18) [facility] Start: 03-16-2023 GC (GONORRHEA) SCREE ALEXSANDRA (18-24) GC (GONORRHEA) SCREENING (18-24) [facility] Start: 03-16-2023 GC (GONORRHEA) SCREE ALEXSANDRA (<18) GC (GONORRHEA) SCREENING (<18) [facility] Start: 03-16-2023 Screening for Chlamy morgan trachomatis Chlamydia Screening (18-24) [facility] Start: 03-07-2023 Behavioral Health Screening Behavioral Health Screening [facility] Start: 03-07-2023 Depression Assessment Depression Ass [facility] Start: 11-05-2022 Covid-19 Vaccine ( season) Covid-19 Vaccine ( season) [facility] Start: 11-05-2022 Influenza vaccination [facility] Start: 2022 Anxiety Screening Anxiety Screening [facility] Start: 2022 Depression Screening Depression Scre ening [facility] Start: 2022 HEPATITIS C SCREENING HEPATITIS C [facility] Start: 2022 Hepatitis C screening Hepatitis C [facility] Start: 2022 HIV SCREENING HIV SCREENING [facility] Start: 2022 HIV screening HIV Screening [facility] Start: 2022 Spirometry Spirometry [facility] Start: 07-13-2022 Adult depression screening assessment DEPRESSION SCREENING [facility] Start: 03-07-2022 DEPRESSION ASSESSMENT DEPRESSION ASS ESSMENT [facility] Start: 02-22-2022 COVID-19 VACCINE (3 - Booster for Pfizer series) COVID-19 VACCINE (3 - Booster for Pfizer series) [facility] Start: 02-22-2022 COVID-19 VACCINE (3 - Pfizer series) COVID-19 VACCINE (3 - Pfizer series) [facility] Start: 01-18-2022 End: 02-01-2022 COVID, FLU A/B + RSV, ROUTINE [facility] Work Phone: Comment on above: Expected: 01/18/2022 , Expires: 02/01/2022 Start: 11-05-2021 Influenza vaccination [facility] Start: 10-05-2021 End: 10-19-2021 COVID, FLU A/B + RSV, ROUTINE COVID, FLU A/B + RSV, ROUTINE Microbiology Routine Upper respiratory symptom Suspected COVID-19 virus infection Expected: 10/05/2021, Expires: 10/19/2021 [facility] Work Phone: Comment on above: Expected: 10/05/2021 , Expires: 10/19/2021 Start: 04-27-2021 Asthma Action Plan Asthma Action Yessenia n [facility] Start: 2020 Meningococcal B Vacc ine (1 of 2 - Standard) Meningococcal B Vaccine (1 of 2 - Standard) [facility] Start: 2020 Meningococcal B Vacc ine: Consider Based On Risk (1 of 2 - Patient Seeks Protection) Meningococcal B Vaccine: Consider Based On Risk (1 of 2 - Patient Seeks Protection) [facility] Start: 2020 MENINGOCOCCAL B: Con griddle cook based on risk (1 of 2 - Patient Seeks Protection) MENINGOCOCCAL B: Consider based on risk (1 of 2 - Patient Seeks Protection) [facility] Start: 04-27-2020 Asthma Control Test Asthma Control T est [facility] Start: 10-26-2019 HPV VACCINE (2 - 2-d ose series) HPV VACCINE (2 - 2-dose series) [facility] Start: 08-13-2019 CHLAMYDIA SCREENING (<18) CHLA MYDIA SCREENING (<18) [facility] Start: 08-13-2019 GC (GONORRHEA) SCREE ALEXSANDRA (<18) GC (GONORRHEA) SCREENING (<18) [facility] Start: 2018 PEDS TO ADULT TRANSI TION ANNUAL ASSESSMENT PEDS TO ADULT TRANSITION ANNUAL ASSESSMENT [facility] Start: 05-05-2018 Adult depression screening assessment DEPRESSION SCREENING [facility] Start: 2016 PEDS TO ADULT TRANSI TION INITIAL DISCUSSION PEDS TO ADULT TRANSITION INITIAL DISCUSSION [facility] Start: 2014 MENINGOCOCCAL B: Con griddle cook based on risk (1 of 2 - Risk Bexsero 2-dose series) MENINGOCOCCAL B: Consider based on risk (1 of 2 - Risk Bexsero 2-dose series) [facility] Start: 2009 COVID-19 VACCINE (#1) COVID-19 VACCI NE (#1) [facility] Start: 2009 COVID-19 VACCINE (1) COVID-19 VACCIN E (1) [facility] Start: 02-11-2005 COVID-19 VACCINE (#1) COVID-19 VACCI NE (#1) [facility] Bacteria identified in Urine by Culture URINE CULTURE Microbiology Routine Encounter for care in first trimester of first 7 weeks gestation of 02/21/2024 8:57 AM [facility] BACTERIAL VAGINOSIS AMPLIFICATION BACTERIAL VAGINOSIS AMPLIFICATION Lab Routine Pelvic pain in female 03/16/2022 10:38 AM [facility] Work Phone: BACTERIAL VAGINOSIS AMPLIFICATION BACTERIAL VAGINOSIS AMPLIFICATION Lab Routine Vaginal irritation 04/12/2022 8:51 AM [facility] [facility] Work Phone: BACTERIAL VAGINOSIS NAAT BACTERI AL VAGINOSIS NAAT Lab Routine Vaginal discharge 07/29/2023 8:31 AM EDT [facility] BACTERIAL VAGINOSIS NAAT BACTERI AL VAGINOSIS NAAT Lab Routine Vaginal discharge [facility] BACTERI AL VAGINOSIS NAAT Lab Routine Vaginal irritation 02/21/2024 8:57 AM [facility] BACTERIAL VAGINOSIS NAAT BACTERI AL VAGINOSIS NAAT Lab Routine Vaginal irritation Vaginal discharge 03/28/2024 10:13 AM [facility] Work Phone: BACTERIAL VAGINOSIS NAAT BACTERI AL VAGINOSIS NAAT Lab Routine Vaginal discharge during in third trimester (HCC) 07/20/2024 8:54 AM [facility] Work Phone: FRANCO / TRICHOMONA S AMPLIFICATION FRANCO / TRICHOMONAS AMPLIFICATION Microbiology Routine Pelvic pain in female 03/16/2022 10:38 AM [facility] Work Phone: FRANCO / TRICHOMONA S AMPLIFICATION FRANCO / TRICHOMONAS AMPLIFICATION Microbiology Routine Vaginal irritation 04/12/2022 8:51 AM [facility] Work Phone: FRANCO/TRICHOMONAS NAAT FRANCO /TRICHOMONAS NAAT Lab Routine Vaginal discharge 07/29/2023 8:31 AM T [facility] Work Phone: FRANCO/TRICHOMONAS NAAT FRANCO /TRICHOMONAS NAAT Lab Routine Vaginal discharge Vaginal irritation 12/12/2023 4:17 PM EDT [facility] FRANCO/TRICHOMONAS NAAT FRANCO /TRICHOMONAS NAAT Lab Routine Vaginal irritation 02/21/2024 8:57 AM [facility] FRANCO/TRICHOMONAS NAAT FRACNO /TRICHOMONAS NAAT Lab Routine Vaginal irritation Vaginal discharge 03/28/2024 10:13 AM [facility] FRANCO/TRICHOMONAS NAAT FRANCO /TRICHOMONAS NAAT Lab Routine Vaginal discharge during in third trimester (HCC) 07/20/2024 8:54 AM [facility] Chlamydia trachomatis+Neisseria gonorrhoeae DNA [Presence] in Unspecified specimen by MEG with probe detection GC/CHLAMYDIA DNA DET Lab Routine Pelvic pain in female 03/16/2022 10:38 AM [facility] Work Phone: Chlamydia trachomatis+Neisseria gonorrhoeae DNA [Presence] in Unspecified specimen by MEG with probe detection GONORRHEA/CHLAMYDIA NAAT Lab Routine Encounter for care in first trimester of first 7 weeks gestation of 02/21/2024 8:57 AM [facility] Measurement of pH in vaginal fluid specimen using nitrazine yellow for detection of rupture of amniotic membrane [facility] Patient Education [facility] Work Phone: Removal intrauterine device iud REMOVE INTRAUTERINE DEVICE Procedures Routine Malpositioned intrauterine device (IUD), initial encounter Encounter for IUD removal Ordered: 05/13/2023 [facility] Work Phone: Comment on above: Ordered: 05/13/2023 ROUTINE FLU A/B + RSV ROUTINE FL U A/B + RSV Lab Routine Upper respiratory symptom Suspected COVID-19 virus infection Ordered: 10/05/2021 [facility] Work Phone: Comment on above: Ordered: 10/05/2021 ROUTINE FLU A/B + RSV ROUTINE FL U A/B + RSV Lab Routine Acute cough Fever, unspecified fever cause Sore throat URI with cough and congestion 01/18/2022 10:38 AM [facility] Work Phone: ROUTINE, GR OUP B STREPTOCOCCUS BY PCR ROUTINE, GROUP B STREPTOCOCCUS BY PCR Microbiology Routine 36 weeks gestation of ([facility]) 09/12/2024 10:54 AM EDT [facility] Work Phone: SARS-CoV-2 (COVID-19 ) RNA [Presence] in Respiratory specimen by MEG with probe detection 2019 CORONAVIRUS Microbiology Routine Upper respiratory symptom Suspected COVID-19 virus infection Ordered: 10/05/2021 [facility] Work Phone: Comment on above: Ordered: 10/05/2021 SARS-CoV-2 (COVID-19 ) RNA [Presence] in Respiratory specimen by MEG with probe detection 2019 CORONAVIRUS Microbiology Routine Acute cough Fever, unspecified fever cause Sore throat URI with cough and congestion 01/18/2022 10:38 AM [facility] Work Phone: SARS-CoV-2 (COVID-19 ) RNA [Presence] in Respiratory specimen by MEG with probe detection 2019 CORONAVIRUS Microbiology Routine URI, acute Wheezing Ordered: 05/27/2022 [facility] Work Phone: Comment on above: Ordered: 05/27/2022 UROGENITAL UREAPLASM A AND MYCOPLASMA SPECIES BY PCR, FOR GENITAL, RECTAL, URINE SAMPLES UROGENITAL UREAPLASMA AND MYCOPLASMA SPECIES BY PCR, FOR GENITAL, RECTAL, URINE SAMPLES Lab Routine Vaginal discharge Vaginal irritation 12/12/2023 4:17 PM EDT [facility] Immunizations Immunization Date Immunization Notes Care Provider Lana [facility] 12-14-2023 influenza, seasonal, injectable, preservative free Dr. Ruiz Vega DO Work Phone: [facility] 12-14-2023 influenza virus vacc ine, unspecified formulation Janelle Marin MD Work Phone: [facility] 10-05-2022 Human Papillomavirus 9-valent vaccine Sommer Hernandez PA-C Work Phone: [facility] 12-28-2021 Covid (Pfizer) Dr. Ruiz Vega DO Work Phone: [facility] 12-28-2021 COVID-19 original vaccine, age 12+ yr, monovalent (PFIZER-BIONTECH - MARTINEZ TOP) Nurse [facility] 12-03-2021 Covid (Pfizer) Dr. Ruiz Vega DO Work Phone: [facility] 12-03-2021 COVID-19 original vaccine, age 12+ yr, monovalent (PFIZER-BIONTECH - MARTINEZ TOP) Nurse [facility] 06-12-2021 meningococcal polysaccharide (groups A, C, Y and W-135) diphtheria toxoid conjugate vaccine (MCV4P) Que Chavez MD Work Phone: [facility] Work Phone: 06-12-2021 tetanus toxoid, redu monique diphtheria toxoid, and acellular pertussis vaccine, adsorbed Que Chavez MD Work Phone: [facility] Work Phone: 06-12-2021 Meningococcal, MCV4, unspecified conjugate formulation(groups A, C, Y and W-135) Que Chavez MD Work Phone: [facility] Work Phone: 04-27-2019 Human Papillomavirus 9-valent vaccine Que Chavez MD Work Phone: [facility] 04-27-2019 influenza, injectabl e, quadrivalent, preservative free Que Chavez MD Work Phone: [facility] 04-27-2019 influenza virus vacc ine, unspecified formulation Sommer Hernandez PA-C Work Phone: [facility] 01-07-2010 hepatitis A vaccine, pediatric/adolescent dosage, 2 dose schedule Que Chavez MD Work Phone: [facility] Work Phone: 01-07-2010 influenza, seasonal, injectable Que Chavez MD Work Phone: [facility] 11-03-2009 poliovirus vaccine, inactivated Que Chavez MD Work Phone: [facility] 10-27-2009 diphtheria, tetanus toxoids and acellular pertussis vaccine Que Chavez MD Work Phone: [facility] 10-27-2009 measles, mumps, rube lla, and varicella virus vaccine Que Chavez MD Work Phone: [facility] 10-27-2009 poliovirus vaccine, unspecified formulation Que Chavez MD Work Phone: [facility] Work Phone: 12-03-2008 Diphtheria, tetanus toxoids and acellular pertussis vaccine, and poliovirus vaccine, inactivated Que Chavez MD Work Phone: [facility] Work Phone: 12-03-2008 influenza, seasonal, injectable Que Chavez MD Work Phone: [facility] 12-03-2008 measles, mumps and rubella virus vaccine Que Chavez MD Work Phone: [facility] Work Phone: 10-03-2006 diphtheria, tetanus toxoids and acellular pertussis vaccine Que Chavez MD Work Phone: [facility] Work Phone: 10-03-2006 haemophilus influenz ae type b vaccine, HbOC conjugate Que Chavez MD Work Phone: [facility] 10-03-2006 measles, mumps, rube lla, and varicella virus vaccine Que Chavez MD Work Phone: [facility] Work Phone: 10-03-2006 pneumococcal conjuga te vaccine, 7 valent Que Chavez MD Work Phone: [facility] Work Phone: 06-17-2005 diphtheria, tetanus toxoids and acellular pertussis vaccine Que Chavez MD Work Phone: [facility] Work Phone: 06-17-2005 haemophilus influenz ae type b vaccine, HbOC conjugate Que Chavez MD Work Phone: [facility] 06-17-2005 pneumococcal conjuga te vaccine, 7 valent Que Chavez MD Work Phone: [facility] Work Phone: 06-17-2005 poliovirus vaccine, inactivated Que Chavez MD Work Phone: [facility] Work Phone: 05-06-2005 DTaP-hepatitis B and poliovirus vaccine Que Chavez MD Work Phone: [facility] Work Phone: 05-06-2005 haemophilus influenz ae type b vaccine, HbOC conjugate Que Chavez MD Work Phone: [facility] 05-06-2005 pneumococcal conjuga te vaccine, 7 valent Que Chavez MD Work Phone: [facility] Work Phone: 2004 DTaP-hepatitis B and poliovirus vaccine Que Chavez MD Work Phone: [facility] Work Phone: 2004 haemophilus influenz ae type b vaccine, HbOC conjugate Que Chavez MD Work Phone: [facility] 2005 pneumococcal conjuga te vaccine, 7 valent Que Chavez MD Work Phone: [facility] Work Phone: 2004 hepatitis B vaccine, pediatric or pediatric/adolescent dosage Que Chavez MD Work Phone: [facility] Payers Date Payer Category Payer Self-pay 2022 Unknown [id number] 2021 Medicaid [place] [employer] [place] [id number] 2021-Present [phone] [facility] [address] [place] [id number] Medicaid [id number] 2021 Medicaid [id number] 2016 Medicaid [id number] 2016 Unknown [id number] Unknown [id number] Unknown [id number] Unknown [id number] Unknown [id number] Unknown [id number] Unknown [id number] Unknown [id number] Unknown [id number] Social History Date Type Detail Facility Start: 01-13-2021 End: 09-04-2024 Tobacco smoking status NHIS Never smoked tobacco [facility] Work Phone: Start: 01-13-2021 End: 10-28-2021 Tobacco use and exposure Smokeless tobacco non-user [facility] Work Phone: Start: 06-12-2021 End: 10-05-2024 Alcohol intake Current non-drinker of alcohol (finding) [facility] Start: 12-29-2017 End: 10-28-2021 Tobacco Comment Second hand smoke exposure [facility] Start: 2005 Sex Assigned At Female [facility] Start: 06-02-2021 End: 01-18-2022 Exposure to SARS-CoV-2 (event) Not sure [facility] Work Phone: Start: 07-13-2021 History SDOH Physical Activity DPW 2 [facility] Start: 07-13-2021 History SDOH Financial 4 [facility] Start: 07-13-2021 History SDOH Food Worry 1 [facility] Start: 10-05-2022 End: 08-23-2023 History of Social function [facility] Start: 10-05-2022 End: 08-23-2023 Tobacco use panel [facility] How hard is it for y ou to pay for the very basics like food, housing, medical care, and heating Not very hard [facility] (I/We) worried wheth er (my/our) food would run out before (I/we) got money to buy more. Never true [facility] In the past 12 month s, has lack of transportation kept you from medical appointments or from getting medications? No [facility] In the past 12 month s, was there a time when you were not able to pay the mortgage or rent on time? No [facility] Start: 12-29-2017 Gender identity Identifies as female gender (finding) [facility] Start: 12-29-2017 Sexual orientation Heterosexual (finding) [facility] Are you now , , , , never or living with a partner? Never [facility] How often to you hav e a drink containing alcohol? Never [facility] Do you feel stress - tense, restless, nervous, or anxious, or unable to sleep at night because your mind is troubled all the time - these days [OSQ] Not at all [facility] Start: 02-16-2024 Education 12 [facility] Start: 01-17-2024 [facility] Goals Date Patient Goal Desired Activity /State Personal health goal Mental Status Date Assessment Result Facility 09-04-2024 Cognitive function Awake;Alert;A ppropriate;Fol lows Commands [facility] Work Phone: Clinical Notes 08-09-2016 to [...] discussed with the Patient or Patient's Authorized Visiting Professor. As applicable, any other physician, advance practice provider, medical student, or other health professional student that will be observing or involved in the sensitive examination for educational or training purposes was discussed with the Patient or Authorized Visiting Professor. The Patient or Authorized Visiting Professor has agreed to proceed with the [...] RTO in one week Delfina Watson APRN.CNM [facility] 10-05-2024 Note HNO ID: [id number] Author: DELFINA WATSON APRN.CNM Service: ? Author Type: Boot Lace Cutter Machine Type: Progress Notes Filed: 10/05/2024 16:56 Note Text: MEKA- [place] 10-05-2024 History of Presen t illness Narrative MEKA- documented in this encounter [facility] 10-05-2024 Miscellaneous Notes Formattin g of [...] discussed with the Patient or Patient's Authorized Visiting Professor. As applicable, any other physician, advance practice provider, medical student, or other health professional student that will be observing or involved in the sensitive examination for educational or training purposes was discussed with the Patient or Authorized Visiting Professor. The Patient or Authorized Visiting Professor has agreed to proceed with the [...] Delfina Watson APRN.CNM documented in this encounter [facility] 10-05-2024 Instructions Karen Dimas MA - 10/05/2024 4:19 PM EDT SEQUENTIAL SCREENINGS The [facility] offers sequential screenings for women who [...] It will require an appointment with our non destructive testing technician. This is not an ultrasound performed [...] the above symptoms, contact our office at [phone] and ask to speak with a nurse. After hours, you can call doctors registry at [phone] OR call [facility] at [phone] and ask to have the doctor senior insight manager international paged. If you consider this an emergency, dial 9-1-1 or go to your nearest emergency department. NEED HELP? Are you dealing with a violent or abusive relationship? Are you a victim of rape or sexual assult? Call [facility] ([place] 24 hour Crisis Hotline: 130.937.5170 or 901-978-7111. MANUAL Your Guide to a Healthy manual is now on-line. Visit [email or web address] to download your free copy documented in this encounter [facility] 09-25-2024 Progress note Formatting of t his note might be different from the original. KJ - S: Amirah denies LOF or vaginal bleeding. She reports some irregular ctxs. O: 38w0d, see flow sheet SENSITIVE EXAM: The sensitive examination was discussed with the Patient or Patient's Authorized Visiting Professor. As applicable, any other physician, advance practice provider, medical student, or other health professional student that will be observing or involved in the sensitive examination for educational or training purposes was discussed with the Patient or Authorized Visiting Professor. The Patient or Authorized Visiting Professor has agreed to proceed with the sensitive examination. (Sensitive examination includes inspection and/or palpation of the breasts, pelvis, prostate and anorectal regions). A/P: Assessment & Plan Supervision of high risk in third trimester (HCC) Orders: URINE OB DIP B/O 38 weeks gestation of (HCC) Orders: URINE OB DIP B/O Reviewed labor & FM precautions Janelle Marin MD [facility] 09-25-2024 Miscellaneous Notes Formattin g of this note might be different from the original. KJ - S: Amirah denies LOF or vaginal bleeding. She reports some irregular ctxs. O: 38w0d, see flow sheet SENSITIVE EXAM: The sensitive examination was discussed with the Patient or Patient's Authorized Visiting Professor. As applicable, any other physician, advance practice provider, medical student, or other health professional student that will be observing or involved in the sensitive examination for educational or training purposes was discussed with the Patient or Authorized Visiting Professor. The Patient or Authorized Visiting Professor has agreed to proceed with the sensitive examination. (Sensitive examination includes inspection and/or palpation of the breasts, pelvis, prostate and anorectal regions). A/P: Assessment & Plan Supervision of high risk in third trimester (HCC) Orders: URINE OB DIP B/O 38 weeks gestation of (HCC) Orders: URINE OB DIP B/O Reviewed labor & FM precautions Janelle Marin MD documented in this encounter [facility] 09-25-2024 Instructions Cassie Abad MA - 09/25/2024 2:00 PM EDT SEQUENTIAL SCREENINGS The [facility] offers sequential screenings for women who [...] It will require an appointment with our non destructive testing technician. This is not an ultrasound performed [...] the above symptoms, contact our office at [phone] and ask to speak with a nurse. After hours, you can call [employer] [facility] at [phone] OR call [facility] at [phone] and ask to have the doctor senior insight manager international paged. If you consider this an emergency, dial 9--1 or go to your nearest emergency department. NEED HELP? Are you dealing with a violent or abusive relationship? Are you a victim of rape or sexual assult? Call [facility] 24 hour Crisis Hotline: 668.907.1221 or 758-831-8851. MANUAL Your Guide to a Healthy manual is now on-line. Visit [email or web address] to download your free copy documented in this encounter [facility] 09-18-2024 Progress note Formatting of t his note might be different from the original. SW- Pt doing well. No ctx, vb, lof. Good FM PE: Gen- NAD, well appearing Abd- Soft, gravid, NT See flowsheet A/p 37 wk gestation - GBS positive - Reviewed labor precautions - Weekly visits Alo Thompson DO [facility] 09-18-2024 Miscellaneous Notes Formattin g of this note might be different from the original. SW- Pt doing well. No ctx, vb, lof. Good FM PE: Gen- NAD, well appearing Abd- Soft, gravid, NT See flowsheet A/p 37 wk gestation - GBS positive - Reviewed labor precautions - Weekly visits Alo Thompson DO documented in this encounter [facility] 09-18-2024 Instructions Karen Dimas MA - 09/18/2024 1:22 PM EDT SEQUENTIAL SCREENINGS The [facility] offers sequential screenings for women who [...] It will require an appointment with our non destructive testing technician. This is not an ultrasound performed [...] the above symptoms, contact our office at [phone] and ask to speak with a nurse. After hours, you can call doctors registry at [phone] OR call [facility] at [phone] and ask to have the doctor senior insight manager international paged. If you consider this an emergency, dial 9-1- or go to your nearest emergency department. NEED HELP? Are you dealing with a violent or abusive relationship? Are you a victim of rape or sexual assult? Call [facility] ([place] 24 hour Crisis Hotline: 939.532.5802 or 043-636-6661. MANUAL Your Guide to a Healthy manual is now on-line. Visit [email or web address] to download your free copy documented in this encounter [facility] 09-12-2024 Note HNO ID: [id number] Author: CASTILLO MCKEON MD Service: ? Author Type: Physician Type: Progress Notes Filed: 09/12/2024 10:52 Note Text: RR- VB No. LOF No. CTXS some BH, crampy. no regular ctxs. Movement: present. Other c/o: heartburn not relived w/ tums Medication list reviewed. SENSITIVE EXAM: The sensitive examination was discussed with the Patient or Patient's Authorized Visiting Professor. As applicable, any other physician, advance practice provider, medical student, or other health professional student that will be observing or involved in the sensitive examination for educational or training purposes was discussed with the Patient or Authorized Visiting Professor. The Patient or Authorized Visiting Professor has agreed to proceed with the [...] high risk in third trimester ([facility]) Orders: URINE OB DIP B/O Obesity affecting in third trimester, unspecified obesity type ([facility]) Orders: URINE OB DIP B/O Heartburn during in third trimester ([facility]) rx pepcid reviewed urine dip. Brief US confirms vtx f/u 1 week or prn Castillo Mckeon M.D. [place] 09-12-2024 History of Presen t illness Narrative RR- VB No. LOF No. CTXS some BH, crampy. no regular ctxs. Movement: present. Other c/o: heartburn not relived w/ tums Medication list reviewed. SENSITIVE EXAM: The sensitive examination was discussed with the Patient or Patient's Authorized Visiting Professor. As applicable, any other physician, advance practice provider, medical student, or other health professional student that will be observing or involved in the sensitive examination for educational or training purposes was discussed with the Patient or Authorized Visiting Professor. The Patient or Authorized Visiting Professor has agreed to proceed with the [...] high risk in third trimester ([facility]) Orders: URINE OB DIP B/O Obesity affecting in third trimester, unspecified obesity type ([facility]) Orders: URINE OB DIP B/O Heartburn during in third trimester ([facility]) rx pepcid reviewed urine dip. Brief US confirms vtx f/u 1 week or prn Castillo Mckeon M.D. documented in this encounter [facility] 09-12-2024 Instructions Leah Villaseñor MA - 09/12/2024 10:14 AM EDT SEQUENTIAL SCREENINGS The [facility] offers sequential screenings for women who [...] It will require an appointment with our non destructive testing technician. This is not an ultrasound performed [...] the above symptoms, contact our office at [phone] and ask to speak with a nurse. After hours, you can call doctors registry at [phone] OR call [facility] at [phone] and ask to have the doctor senior insight manager international paged. If you consider this an emergency, dial 9-1-2 or go to your nearest emergency department. NEED HELP? Are you dealing with a violent or abusive relationship? Are you a victim of rape or sexual assult? Call [facility] 24 hour Crisis Hotline: 961.845.3347 or 945-057-9949. MANUAL Your Guide to a Healthy manual is now on-line. Visit [email or web address] to download your free copy documented in this encounter [facility] 09-04-2024 Telephone encount er Note Noted. Thanks! Janelle Marin MD [facility] 09-04-2024 Miscellaneous Notes Formattin g of this note might be different from the original. Noted. Thanks! Janelle Marin MD Spoke with in ED. All work up normal. Patient D/Cd home. Delfina Watson APRN.CNM documented in this encounter [facility] 09-04-2024 Telephone encount er Note Spoke with in ED. All work up normal. Patient D/Cd home. Delfina Watson APRN.CNM [facility] 09-04-[address] [facility] 09-04-2024 Radiology Diagnostic study note [facility] Imaging Services [address] [place] [address] CTA Chest W/WO Contrast MR#: [id number] Acct: [id number] Name: AMIRAH WOODARD Rep #: [id number] : 2005 F 19 From: Gatito Moreno MD PCP: Dr. Ruiz Vega, DO Status: RE G ER Study:CTA Chest W/WO Contrast Date of Exam: 09/04/24 Exam# [id number] Ordering Dr: Raisa Richardson MD PROCEDURE: CTA [...] dissection No acute pulmonary process Reading Location: [id number] CC: Dr. Conrado Richardson MD; Dr. Ruiz Vega, DO ~ Kick Press Operator: Signed [facility] 09-04-2024 Telephone encounter Note Patient should be in ED at this time. No concern about urine dip. Janelle Marin MD [facility] 09-04-2024 Miscellaneous Notes Patient should be in ED at this time. No concern about urine dip. Janelle Marin MD documented in this encounter [facility] 09-04-2024 Progress note Formatting of t [...] Orders: URINE OB DIP B/O Patient to [facility] for eval of tachycardia and Shortness of Breath. No evidence labor. Janelle Marin MD [facility] 09-04-2024 Miscellaneous Notes KJ - S: Patient seen urgently for heart racing and Shortness of Breath that started this morning. Denies fevers/chils. Amirah denies LOF, contractions or vaginal bleeding. She reports stable cramps. O: 35w0d, see flow sheet SENSITIVE EXAM: Sensitive exam not performed. A/P: Assessment & Plan Supervision of high risk in third trimester ([facility]) Orders: URINE OB DIP B/O Obesity affecting in third trimester, unspecified obesity type ([facility]) Orders: URINE OB DIP B/O 35 weeks gestation of ([facility]) Orders: URINE OB DIP B/O Patient to [facility] for eval of tachycardia and Shortness of Breath. No evidence labor. Janelle Marin MD documented in this encounter [facility] 09-04-2024 Instructions Cassie Abad MA - 09/04/2024 9:30 AM EDT SEQUENTIAL SCREENINGS The [facility] offers sequential screenings for women who [...] It will require an appointment with our non destructive testing technician. This is not an ultrasound performed [...] the above symptoms, contact our office at [phone] and ask to speak with a nurse. After hours, you can call doctors registry at [phone] OR call [facility] at [phone] and ask to have the doctor senior insight manager international paged. If you consider this an emergency, dial 9-1-0 or go to your nearest emergency department. NEED HELP? Are you dealing with a violent or abusive relationship? Are you a victim of rape or sexual assult? Call [facility] ([facility] 24 hour Crisis Hotline: 462.426.1892 or 436-673-4066. MANUAL Your Guide to a Healthy manual is now on-line. Visit [email or web address] See to download your free copy documented in this encounter [facility] 08-30-2024 Progress note Formatting of t his note might be different from the original. S: Amirah Woodard is a 19 year old female who presents at 34 weeks gestation for a routine visit. Positive movements. 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 Requesting to [...] GERRI with GBS La Del Castillo APRN.CNM [facility] Work Phone: 08-30-2024 Miscellaneous Notes S: Amirah Woodard is a 19 year old female who presents at 34 weeks gestation for a routine visit. Positive movements. 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 Requesting to [...] Del Castillo APRN.CNM documented in this encounter [facility] 08-30-2024 Instructions La Del Castillo APRN.CNM - 08/30/2024 2:46 PM EDT Images from the original note were not included. SEQUENTIAL SCREENINGS The [facility] offers sequential screenings for women who [...] It will require an appointment with our non destructive testing technician. This is not an ultrasound performed [...] make an easy pie crust in the tester food products. Add soaked dates to homemade nut butter for a sweet treat. Add dates to casandra homemade salad dressing. Add dates during easily with these yummy (paleo friendly) bars made from dates. What Is Red Raspberry [place] Tea? Red raspberry leaf tea comes from [...] , and too. How Much Red Raspberry [place] Tea to Drink? With your doctor or side guider s approval, start with 1 cup of [...] because of uterine cramping. Is Red Raspberry [place] Tea the Same as Raspberry [place] Tea? How About Plain Old Raspberry Tea? Sometimes. You really need to look at the ingredients to be sure. Note that there is no difference between red raspberry leaf and raspberry leaf. Ravn or SeptRx Raspberry [place] Tea are two good brands. The red [...] of RRLT outlined in this article. [employer] www.MashMango I named this 'circuit' after my friend [...] sideways, 2 at a time, (have a dairy supplies sales representative downstairs of you!), take a walk outside [...] the pelvis. Katey Harris: Circuit Creator - www.Diet4Lifeundbirthcollective.[employer] Nicolette Heaton, LEONEL, BDT (MARIANN), LCCE, FACCE: Supporting Content - www.We[employer] InternationaljazBoltdayana.INTERACTION [employer] Lindsey Griffith: Photography - www.[employer]wYebhi Meghna Green CD/CDT (NICHOLAS): Print and Camp Attendant - www.[employer]s [employer] www.MashMango SIGNS AND SYMPTOMS OF LABOR 1. Contractions every 10 minutes or more often 2. Clear, pink, or brownish fluid (water) leaking from vagina 3. Feeling that baby is pushing down, pressure 4. Low, dull backache 5. Cramps that feel like a period 6. Cramps with or without diarrhea If you notice any of the above symptoms, contact our office at [phone] and ask to speak with a nurse. After hours, you can call doctors registry at [phone] OR call [facility] at [phone] and ask to have the doctor senior insight manager international paged. If you consider this an emergency, dial 9-1-8 or go to your nearest emergency department. NEED HELP? Are you dealing with a violent or abusive relationship? Are you a victim of rape or sexual assult? Call [facility] 24 hour Crisis Hotline: 930.457.4133 or 768-153-9505. MANUAL Your Guide to a Healthy manual is now on-line. Visit [email or web address] See to download your free copy documented in this encounter [facility] 08-16-2024 Progress note Formatting of t [...] high risk in third trimester ([facility]) - ICD9: V23.9, ICD10: O09.93 (primary diagnosis) - Continue PNV and LDA 2. 32 weeks gestation of ([facility]) - ICD9: V22.2, ICD10: Z3A.32 - Discussed pediatric care coordinator, support band, gentle stretching for musculoskeletal pain - Discussed signs of Florin Tan - increase hydration 3. Obesity affecting in third trimester, unspecified obesity type ([facility]) - ICD9: 649.13, ICD10: O99.213 - Pre BMI 31 PTL precautions and kick counts reviewed. RTO in 2 weeks or sooner as needed. Lindsey Moreno APRN.HAY SORTER [facility] 08-16-2024 Miscellaneous Notes EH - S: [...] high risk in third trimester ([facility]) - ICD9: V23.9, ICD10: O09.93 (primary diagnosis) - Continue PNV and LDA 2. 32 weeks gestation of ([facility]) - ICD9: V22.2, ICD10: Z3A.32 - Discussed pediatric care coordinator, support band, gentle stretching for musculoskeletal pain - Discussed signs of Florin Tan - increase hydration 3. Obesity affecting in third trimester, unspecified obesity type ([facility]) - ICD9: 649.13, ICD10: O99.213 - Pre BMI 31 PTL precautions and kick counts reviewed. RTO in 2 weeks or sooner as needed. Lindsey Moreno APRN.HAY SORTER documented in this encounter [facility] 08-16-2024 Instructions Yumiko Meza MA - 08/16/2024 2:22 PM EDT SEQUENTIAL SCREENINGS The [facility] offers sequential screenings for women who [...] It will require an appointment with our non destructive testing technician. This is not an ultrasound performed [...] the above symptoms, contact our office at [phone] and ask to speak with a nurse. After hours, you can call doctors registry at [phone] OR call [facility] at [phone] and ask to have the doctor senior insight manager international paged. If you consider this an emergency, dial or go to your nearest emergency department. NEED HELP? Are you dealing with a violent or abusive relationship? Are you a victim of rape or sexual assult? Call [facility] 24 hour Crisis Hotline: 245.373.7145 or 862-509-2176. MANUAL Your Guide to a Healthy manual is now on-line. Visit [email or web address] See to download your free copy documented in this encounter [facility] 08-13-2024 Note HNO ID: [id number] Author: RUIZ VEGA, DO Service: ? Author [...] Rhonda. - Planning a vaginal delivery at [facility]. - Taking vitamins; denies nausea or emesis. 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 Recording using [employer] software for draft documentation of the visit was discussed with the patient/authorized exhibit display representative; all questions welcomed and answered. Patient/authorized exhibit display representative agreed to proceed [place] 08-13-2024 History of Present illness Narrative Pennie Woodard is a 19-year-old female, 1 para 0, presenting for an initial visit and evaluation of -related symptoms. : - Currently 31-32 weeks gestation with a male fetus; ANA: October 09. - First . - care managed by Dr. Mckeon and team; next appointment scheduled with Lindsey and La. - Planning a vaginal delivery at [facility]. - Taking vitamins; denies nausea or emesis. 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 Recording using [employer] software for draft documentation of the visit was discussed with the patient/authorized exhibit display representative; all questions welcomed and answered. Patient/authorized exhibit display representative agreed to proceed documented in this encounter [facility] 08-08-2024 Telephone encounter Note Order signed and faxed. Caroline Mora RN [facility] 08-08-2024 Miscellaneous Notes Order signed and faxed. Caroline Mora RN Breast pump request received from [employer]. Order to provider to sign. Caroline Mora RN documented in this encounter [facility] 08-06-2024 Telephone encounter Note Breast pump request received from [employer]. Order to provider to sign. Caroline Mora RN [facility] 08-03-2024 Telephone encounter Note 3rd risk assessment form submitted 08/03/24 Tio Hutchison RN [facility] 08-03-2024 Miscellaneous Notes 3rd risk assessment form submitted 08/03/24 Tio Hutchison RN documented in this encounter [facility] 08-01-2024 Progress note Formatting of t [...] unspecified seasonality, unspecified trigger Castillo Mckeon M.D. [facility] 08-01-2024 Miscellaneous Notes RR- VB No. [...] high risk in third trimester ([facility]) Orders: COMPLETE BLOOD COUNT AND DIFFERENTIAL; Future [...] Castillo Mckeon M.D. documented in this encounter [facility] 07-20-2024 Note HNO ID: [id number] Author: LINDSEY MORENO APRN.HAY SORTER Service: ? Author Type: Nurse Practitioner Type: [...] high risk in third trimester ([facility]) - ICD9: V23.9, ICD10: O09.93 (primary diagnosis) - Continue PNV and LDA 2. 28 weeks gestation of ([facility]) - ICD9: V22.2, ICD10: Z3A.28 - 1 hour GCT, CBC, and RPR today - Rh positive - Declines TDAP - LARC form reviewed and signed. Declines. - Depression screen negative - Opioid screen negative - plan form discussed and given to Amirah - Reviewed how to pre register through [facility] - Planning Paragard during period 3. Obesity affecting in third trimester, unspecified obesity type ([facility]) - ICD9: 649.13, ICD10: O99.213 - Pre BMI 32 4. Vaginal discharge during in third trimester ([facility]) - ICD9: 646.83, 623.5, ICD10: O26.893, N89.8 - BACTERIAL VAGINOSIS NAAT - FRANCO/TRICHOMONAS NAAT PTL precautions and kick counts reviewed. RTO in 2 weeks or sooner as needed. Lindsey Moreno APRN.HAY SORTER [place] 07-20-2024 History of Present illness Narrative EH [...] high risk in third trimester ([facility]) - ICD9: V23.9, ICD10: O09.93 (primary diagnosis) [...] - Reviewed how to pre register through [facility] - Planning Paragard during period 3. Obesity affecting in third trimester, unspecified obesity type ([facility]) - ICD9: 649.13, ICD10: O99.213 - Pre BMI 32 4. Vaginal discharge during in third trimester ([facility]) - ICD9: 646.83, 623.5, ICD10: O26.893, N89.8 - BACTERIAL VAGINOSIS NAAT - FRANCO/TRICHOMONAS NAAT PTL precautions and kick counts reviewed. RTO in 2 weeks or sooner as needed. Lindsey Moreno APRN.HAY SORTER documented in this encounter [facility] 07-20-2024 Instructions Yumiko Meza MA - 07/20/2024 8:16 AM EDT SEQUENTIAL SCREENINGS The [facility] offers sequential screenings for women who [...] It will require an appointment with our non destructive testing technician. This is not an ultrasound performed [...] the above symptoms, contact our office at [phone] and ask to speak with a nurse. After hours, you can call doctors registry at [phone] OR call [facility] at [phone] and ask to have the doctor senior insight manager international paged. If you consider this an emergency, dial 9-1-6 or go to your nearest emergency department. NEED HELP? Are you dealing with a violent or abusive relationship? Are you a victim of rape or sexual assult? Call [facility] 24 hour Crisis Hotline: 461.176.2030 or 549-828-0829. MANUAL Your Guide to a Healthy manual is now on-line. Visit [email or web address] See to download your free copy documented in this encounter [facility] 07-19-2024 Telephone encounter Note noted. thanks. Castillo Mckeon MD [facility] Work Phone: 07-19-2024 Miscellaneous Notes noted. [...] Kia Sheldon, JIA documented in this encounter [facility] 07-19-2024 Telephone encounter Note 28w2d Patient [...] H&P faxed to L&D. Kia Sheldon, RN [facility] 07-09-2024 Telephone encounter Note agree [facility] Work Phone: 07-09-2024 Miscellaneous Notes agree documented in this encounter [facility] 06-21-2024 Progress note Formatting of t [...] before next visit La Del Castillo APRN.CNM [facility] 06-21-2024 Miscellaneous Notes S: Amirah Woodard [...] Del Castillo APRN.CNM documented in this encounter [facility] 06-21-2024 Instructions Shree Santos MA - 06/21/2024 1:02 PM EDT SEQUENTIAL SCREENINGS The [facility] offers sequential screenings for women who [...] It will require an appointment with our non destructive testing technician. This is not an ultrasound performed [...] the above symptoms, contact our office at [phone] and ask to speak with a nurse. After hours, you can call [employer] registry at [phone] OR call [facility] at [phone] and ask to have the doctor senior insight manager international paged. If you consider this an emergency, dial 11-05-3 or go to your nearest emergency department. NEED HELP? Are you dealing with a violent or abusive relationship? Are you a victim of rape or sexual assult? Call [facility] ([facility]) 24 hour Crisis Hotline: 186.437.9736 or 696-893-4463. MANUAL Your Guide to a Healthy manual is now on-line. Visit [email or web address] See to download your free copy documented in this encounter [facility] 06-19-2024 Progress note Formatting of t [...] REFLEX PANEL; Future Obesity in ([facility]) Screening for diabetes mellitus Orders: GESTATIONAL GLUCOSE SCREEN, 1-HOUR, 50 GRAM, NON-FASTING; Future Advised on musculoskeletal pain in . Discussed if any CP/SOB should call immediately. Janelle Marin MD [facility] 06-19-2024 Miscellaneous Notes KJ - S: [...] REFLEX PANEL; Future Obesity in ([facility]) Screening for diabetes mellitus Orders: GESTATIONAL GLUCOSE SCREEN, 1-HOUR, 50 GRAM, NON-FASTING; Future Advised on musculoskeletal pain in . Discussed if any CP/SOB should call immediately. Janelle Marin MD documented in this encounter [facility] 06-19-2024 Instructions Yumiko Meza MA - 06/19/2024 2:34 PM EDT SEQUENTIAL SCREENINGS The [facility] offers sequential screenings for women who [...] It will require an appointment with our non destructive testing technician. This is not an ultrasound performed [...] the above symptoms, contact our office at [phone] and ask to speak with a nurse. After hours, you can call doctors registry at [phone] OR call [facility] at [phone] and ask to have the doctor senior insight manager international paged. If you consider this an emergency, dial 9-- or go to your nearest emergency department. NEED HELP? Are you dealing with a violent or abusive relationship? Are you a victim of rape or sexual assult? Call [facility] 24 hour Crisis Hotline: 752.962.5561 or 833-327-0452. MANUAL Your Guide to a Healthy manual is now on-line. Visit [email or web address] cyGuide to download your free copy documented in this encounter [facility] 06-06-2024 Progress note Formatting of t [...] scheduled OB visit La Del Castillo APRN.CNM [facility] 06-06-2024 Miscellaneous Notes S: Amirah Woodard [...] Del Castillo APRN.CNM documented in this encounter [facility] 06-06-2024 Shree Beltran MA - 06/06/2024 1:06 PM EDT SEQUENTIAL SCREENINGS The [facility] offers sequential screenings for women who [...] It will require an appointment with our non destructive testing technician. This is not an ultrasound performed [...] the above symptoms, contact our office at [phone] and ask to speak with a nurse. After hours, you can call doctors registry at [phone] OR call [facility] at [phone] and ask to have the doctor senior insight manager international paged. If you consider this an emergency, dial 2-5-6 or go to your nearest emergency department. NEED HELP? Are you dealing with a violent or abusive relationship? Are you a victim of rape or sexual assult? Call [facility] 24 hour Crisis Hotline: 627.423.4371 or 001-103-8852. MANUAL Your Guide to a Healthy manual is now on-line. Visit [email or web address] See to download your free copy documented in this encounter [facility] 06-06-2024 Telephone encounter Note 22w1d Patient [...] today and patient accepted. Vivian Adams RN [facility] 06-06-2024 Miscellaneous Notes 22w1d Patient called [...] Vivian Adams RN documented in this encounter [facility] 05-28-2024 Telephone encounter Note 2nd risk assessment form submitted 05/28/24 Tio Hutchison RN [facility] 05-28-2024 Miscellaneous Notes 2nd risk assessment form submitted 05/28/24 Tio Hutchison RN documented in this encounter [facility] 05-25-2024 Progress note Formatting of t [...] ICD9: V22.2, ICD10: Z3A.20 Kia Lucero MD [facility] 05-25-2024 Miscellaneous Notes S: Amirah Woodard is [...] Kia Lucero MD documented in this encounter [facility] 05-25-2024 Instructions Cassie Abad MA - 05/25/2024 2:03 PM EDT SEQUENTIAL SCREENINGS The [facility] offers sequential screenings for women who [...] It will require an appointment with our non destructive testing technician. This is not an ultrasound performed [...] the above symptoms, contact our office at [phone] and ask to speak with a nurse. After hours, you can call doctors registry at [phone] OR call [facility] at [phone] and ask to have the doctor senior insight manager international paged. If you consider this an emergency, dial 9-1-9 or go to your nearest emergency department. NEED HELP? Are you dealing with a violent or abusive relationship? Are you a victim of rape or sexual assult? Call [facility] 24 hour Crisis Hotline: 119.341.6226 or 142-802-2370. MANUAL Your Guide to a Healthy manual is now on-line. Visit [email or web address] See to download your free copy documented in this encounter [facility] 05-01-2024 Telephone encounter Note Left message for patient to call office. Kia Sheldon RN [facility] 05-01-2024 Miscellaneous Notes Left message for patient to call office. Kia Sheldon, RN Noted & agree with recommendations. If patient has increased LOF tonight I recommend going to [facility]. Janelle Marin MD 17w0d Calling concerned [...] Vivian Adams RN documented in this encounter [facility] 05-01-2024 Telephone encounter Note Noted & agree with recommendations. If patient has increased LOF tonight I recommend going to [facility]. Janelle Marin MD [facility] Work Phone: 05-01-2024 Telephone encounter Note [...] with it. Please advise. Vivian Adams RN [facility] 04-27-2024 Progress note Formatting of t [...] RTO in 4 weeks Delfina Watson APRN.CNM [facility] 04-27-2024 Miscellaneous Notes MEKA-S: Amirah Woodard [...] Delfina Watson APRN.CNM documented in this encounter [facility] 04-27-2024 Instructions Shree Santos MA - 04/27/2024 1:04 PM EST SEQUENTIAL SCREENINGS The [facility] offers sequential screenings for women who [...] It will require an appointment with our non destructive testing technician. This is not an ultrasound performed [...] the above symptoms, contact our office at [phone] and ask to speak with a nurse. After hours, you can call doctors registry at [phone] OR call [facility] at [phone] and ask to have the doctor senior insight manager international paged. If you consider this an emergency, dial 9-1-1 or go to your nearest emergency department. NEED HELP? Are you dealing with a violent or abusive relationship? Are you a victim of rape or sexual assult? Call [facility] [place] [facility] 24 hour Crisis Hotline: 642.451.8345 or 630-250-6979. MANUAL Your Guide to a Healthy manual is now on-line. Visit [email or web address] See to download your free copy documented in this encounter [facility] 04-13-2024 Telephone encounter Note Patient notified and voiced understanding. Caroline Mora RN [facility] 04-13-2024 Miscellaneous Notes Patient notified and [...] Marisela Lopez RN documented in this encounter [facility] 04-13-2024 Telephone encounter Note Agree with plan of care. May try wearing compression stockings if on feet as well. This can help with blood flow back to to heart/head. La Del Castillo APRN.CNM [facility] Work Phone: 04-13-2024 Telephone encounter [...] until 04/27/24. Please advise. Marisela Lopez, RN [facility] 04-10-2024 Telephone encounter Note Refill provided. Has adult medicine appointment in August. Thanks. Josiane Goodwin APRN.HAY SORTER [facility] 04-10-2024 Miscellaneous Notes Refill provided. Has adult medicine appointment in August. Thanks. Josiane Goodwin APRN.HAY SORTER Last [facility]: 10/31/2023 Verify RX Benefits Completed [...] Eloisa Suarez LPN documented in this encounter [facility] 04-10-2024 Telephone encounter Note Last [facility]: 10/31/2023 Verify RX Benefits Completed Last medication [...] season) due on 11/06/2023 Eloisa Suarez LPN [facility] 04-03-2024 Progress note Formatting of t [...] RTO in 4 weeks Delfina Watson APRN.CNM [facility] 04-03-2024 Miscellaneous Notes MEKAUrbanoS: Amirah Woodard is [...] Delfina Watson APRN.CNM documented in this encounter [facility] 04-03-2024 Instructions Leah Villaseñor MA - 04/03/2024 3:53 PM EST SEQUENTIAL SCREENINGS The [facility] offers sequential screenings for women who [...] It will require an appointment with our non destructive testing technician. This is not an ultrasound performed [...] the above symptoms, contact our office at [phone] and ask to speak with a nurse. After hours, you can call doctors registry at [phone] OR call [facility] at [phone] and ask to have the doctor senior insight manager international paged. If you consider this an emergency, dial 91-0 or go to your nearest emergency department. NEED HELP? Are you dealing with a violent or abusive relationship? Are you a victim of rape or sexual assult? Call [facility] [place] ([facility] 24 hour Crisis Hotline: 385.708.5601 or 160-997-6556. MANUAL Your Guide to a Healthy manual is now on-line. Visit [email or web address] See to download your free copy documented in this encounter [facility] 03-28-2024 Progress note Formatting of t [...] culture collected and submitted. RTO 04/03 routine [facility] Clinical yeast infection - tx monistat. Duncan Munguia MD [facility] Work Phone: 03-28-2024 Miscellaneous Notes Primigravida at 12 weeks c/o vaginal itching and burning subsequent to a course of amoxicillin for a sinus infection. Sx began 5 days after beginning tx. Denies vaginal bleeding and slightly increased discharge Pelvic exam. 12 week uterus. moderate clumpy white discharge. Yeast culture collected and submitted. RTO 04/03 routine [facility] Clinical yeast infection - tx monistat. Duncan Munguia MD documented in this encounter [facility] 03-28-2024 Instructions Yumiko Meza MA - 03/28/2024 9:08 AM EST SEQUENTIAL SCREENINGS The [facility] offers sequential screenings for women who [...] It will require an appointment with our non destructive testing technician. This is not an ultrasound performed [...] the above symptoms, contact our office at [phone] and ask to speak with a nurse. After hours, you can call doctors registry at [phone] OR call [facility] at [phone] and ask to have the doctor senior insight manager international paged. If you consider this an emergency, dial [phone] or go to your nearest emergency department. NEED HELP? Are you dealing with a violent or abusive relationship? Are you a victim of rape or sexual assult? Call [facility] ([facility] 24 hour Crisis Hotline: 891.531.5949 or 366-084-5108. MANUAL Your Guide to a Healthy manual is now on-line. Visit [email or web address] to download your free copy documented in this encounter [facility] 03-22-2024 Telephone encounter Note Patient notified and voiced understanding. Caroline Mora RN [facility] 03-22-2024 Miscellaneous Notes Patient notified and voiced understanding. Caroline Mora RN Yes. La Del Castillo APRN.CNM Patient 11w2d calling with questions in regards to medication she was prescribed for a sinus infection. Patient was prescribed Amoxicillin 1000 mg BID. Patient wanting to know if that dosage is ok with . Caroline Mora RN documented in this encounter [facility] 03-22-2024 Telephone encounter Note Yes. La Del Castillo APRN.CNM [facility] Work Phone: 03-22-2024 Telephone encounter Note Patient 11w2d calling with questions in regards to medication she was prescribed for a sinus infection. Patient was prescribed Amoxicillin 1000 mg BID. Patient wanting to know if that dosage is ok with . Caroline Mora RN [facility] 03-19-2024 Note HNO ID: [id number] Author: JOSIANE GOODWIN APRN.HAY SORTER Service: ? Author Type: Nurse Practitioner Type: Progress Notes Filed: 03/20/2024 21:03 Note Text: PEDIATRIC SICK VISIT SUBJECTIVE: Amirah Woodadr is a 18 year old Patient presents [...] provider while in office today. Josiane Goodwin APRN.[facility] 03-19-2024 History of Present illness Narrative [...] Josiane Goodwin APRN.JOSELYN documented in this encounter [facility] 03-13-2024 Note HNO ID: [id number] Author: ROBERTO POWERS PA-C Service: ? Author Type: Physician Delivery Motorcycle Driver Type: Progress Notes Filed: 03/13/2024 12:33 Note [...] the patient was advised to see her QUICK PRINT OPERATOR for further evaluation and management. CLINICAL IMPRESSION: Sore Throat ASSESSMENT/PLAN: 1. Sore throat - ICD9: 462, ICD10: J02.9 - STREP A MOLECULAR (POC) Roberto Powers PA-C [place] 03-13-2024 History of Present illness Narrative This note was created using [email or web address]. Subjective Amirah Woodard is a 18 year [...] the patient was advised to see her QUICK PRINT OPERATOR for further evaluation and management. CLINICAL IMPRESSION: Sore Throat ASSESSMENT/PLAN: 1. Sore throat - ICD9: 462, ICD10: J02.9 - STREP A MOLECULAR (POC) Roberto Powers PA-C documented in this encounter [facility] 03-10-2024 Telephone encounter Note Reason for Call: 9 weeks , dizziness and felt like she would pass out, vision dark vomiting Denies fever Outcome: Patient warm conferenced to main campus rotary swaging machine operator to assist patient in connecting patient to senior insight manager international provider for NUTRITION SERVICES WORKER Nilda Stiles ACID MIXER. [facility] 03-10-2024 Miscellaneous Notes Reason for Call: 9 weeks , dizziness and felt like she would pass out, vision dark vomiting Denies fever Outcome: Patient warm conferenced to main campus rotary swaging machine operator to assist patient in connecting patient to senior insight manager international provider for NUTRITION SERVICES WORKER Nilda Martínezf ACID MIXER. documented in this encounter [facility] 02-23-2024 Telephone encounter Note 1st risk assessment form submitted 02/23/24. Pauline Au RN [facility] 02-23-2024 Miscellaneous Notes 1st risk assessment form submitted 02/23/24. Pauline Au RN documented in this encounter [facility] 02-16-2024 Note HNO ID: [id number] Author: NILDA STIELS APRN.JOSELYN Service: ? Author Type: Nurse Practitioner Type: Progress Notes Filed: 02/21/2024 09:02 Note Text: 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 INITIAL OB ASSESSMENT HPI: Amirah is a [...] (FLONASE) 50 mcg/actuation nasal spray Use 1 Java in each nostril once daily. (Patient not [...] Impaired Vision, Ringing (more content not included)... [place] 02-16-2024 History of Present illness Narrative 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 INITIAL OB ASSESSMENT HPI: Amirah is a [...] (FLONASE) 50 mcg/actuation nasal spray Use 1 Java in each nostril once daily. (Patient not [...] discussed with the Patient or Patient's Authorized Visiting Professor. As applicable, any other physician, advance practice provider, medical student, or other health professional student that will be observing or involved in the sensitive examination for educational or training purposes was discussed with the Patient or Authorized Visiting Professor. The Patient or Authorized Visiting Professor has agreed to proceed with the [...] Your guide to a health and the Municipal Services Manager. Reviewed midwifery and digital media manager services that are available. 2) Screening: Hemoglobin [...] Nilda Stiles APRN.CNP documented in this encounter [facility] 02-16-2024 Instructions Kelly Fields LPN - 02/16/2024 3:31 PM EST Please select the following link to access the [facility] Your Guide to a Healthy . [email or web address] Please select the following link to access the [facility] Your Guide to a Healthy . [email or web address] documented in this encounter [facility] 01-30-2024 Note HNO ID: [id number] Author: NILDA STILES APRN.HAY SORTER Service: ? Author Type: Nurse Practitioner Type: Progress Notes Filed: 01/30/2024 14:33 Note Text: Amirah Woodard is a 18 year old female who presents for problem visit testing, reported +hpt 01/27/2024, 01/03/2024. HPI: positive test- some cramping no bleeding LMP 01/03/24 OB History T0 L0 SAB0 IAB0 Ectopic0 Multiple0 Live Births0 Rapid Outsole Stitcher History LMP: 12/09/2023 (Exact Date), Having periods Age at Menarche: Age at First : Age at Menopause: Rapid Outsole Stitcher History Comments: Sexual Activity: Yes; Male Contraception: [...] (FLONASE) 50 mcg/actuation nasal spray Use 1 Java in each nostril once daily. loratadine (CLARITIN) [...] NOB appt Review miscarriage precautions Nilda Stiles, ACID MIXER.HAY SORTER Medical Decision Making: Problems: Low: Acute, uncomplicated illness or injury Data: Unique test(s) ordered: 1 Risk: Low: Low risk from testing/treatment Medical Decision Making Level: 3 - Low [place] 01-30-2024 History of Present illness Narrative Amirah Woodard is a 18 year old female who presents for problem visit testing, reported +hpt 01/27/2024, 01/03/2024. HPI: positive test- some cramping no bleeding LMP 01/03/24 OB History T0 L0 SAB0 IAB0 Ectopic0 Multiple0 Live Births0 Rapid Outsole Stitcher History LMP: 12/09/2023 (Exact Date), Having periods Age at Menarche: Age at First : Age at Menopause: Rapid Outsole Stitcher History Comments: Sexual Activity: Yes; Male Contraception: [...] (FLONASE) 50 mcg/actuation nasal spray Use 1 Java in each nostril once daily. loratadine (CLARITIN) [...] 3 - Low documented in this encounter [facility] 12-15-2023 Telephone encounter Note Patient notified. [...] NILDA STILES Pharmacy Information Pharmacy Address Telephone [facility] [address] [place] [address] [facility] 12-15-2023 Miscellaneous Notes Patient notified. Vivian [...] NILDA STILES Pharmacy Information Pharmacy Address Telephone [facility] [address] [place] [address] Mycoplasma positive. Moxifloxacin x 7 days, then Doxy to follow x 7 days. Partner should be treated. Nilda Stiles APRN.CNP documented in this encounter [facility] 12-15-2023 Telephone encounter Note Mycoplasma positive. Moxifloxacin x 7 days, then Doxy to follow x 7 days. Partner should be treated. Nilda Stiles APRN.JOSELYN [facility] 12-12-2023 Note HNO ID: [id number] Author: NILDA STILES APRN.CNP Service: ? Author Type: Nurse Practitioner Type: Progress Notes Filed: 12/12/2023 16:43 Note Text: 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 Amirah Woodard is a 18 year old [...] L0 SAB0 IAB0 Ectopic0 Multiple0 Live Births0 Rapid Outsole Stitcher History LMP: 10/08/2023 (Exact Date), Having periods Age at Menarche: Age at First : Age at Menopause: Rapid Outsole Stitcher History Comments: Sexual Activity: Yes; Male Contraception: [...] (FLONASE) 50 mcg/actuation nasal spray Use 1 Java in each nostril once daily. loratadine (CLARITIN) [...] discussed with the Patient or Patient's Authorized Visiting Professor. As applicable, any other physician, advance practice provider, medical student, or other health professional student that will be observing or involved in the sensitive examination for educational or training purposes was discussed with the Patient or Authorized Visiting Professor. The Patient or Authorized Visiting Professor has agreed to proceed with the sensitive examination. (Sensitive examination includes inspection and/or palpation of the breasts, pelvis, prostate and anorectal regions). EXAM: LMP 10/08/2023 GENERAL: pleasant, female in no apparent distress HEENT: Normocephalic, atraumatic, mucus membranes moist, and no lesions CHEST: Normal inspiratory effort PELVIC: external genitalia normal, normal Bartholin's glands, urethra, [place]'s glands, no vulvar lesions, no cervical lesions, [...] notify patient of test results. Nilda Stiles APRN.HAY SORTER Medical Decision Making: Problems: Moderate: New problem with uncertain prognosis Data: Unique test(s) ordered: 3+ Risk: Low: Low risk from testing/treatment Medical Decision Making Level: 4 - Moderate [place] 12-12-2023 History of Present illness Narrative 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 Amirah Woodard is a 18 year old [...] L0 SAB0 IAB0 Ectopic0 Multiple0 Live Births0 Rapid Outsole Stitcher History LMP: 10/08/2023 (Exact Date), Having periods Age at Menarche: Age at First : Age at Menopause: Rapid Outsole Stitcher History Comments: Sexual Activity: Yes; Male Contraception: [...] (FLONASE) 50 mcg/actuation nasal spray Use 1 Java in each nostril once daily. loratadine (CLARITIN) [...] discussed with the Patient or Patient's Authorized Visiting Professor. As applicable, any other physician, advance practice provider, medical student, or other health professional student that will be observing or involved in the sensitive examination for educational or training purposes was discussed with the Patient or Authorized Visiting Professor. The Patient or Authorized Visiting Professor has agreed to proceed with the sensitive examination. (Sensitive examination includes inspection and/or palpation of the breasts, pelvis, prostate and anorectal regions). EXAM: LMP 10/08/2023 GENERAL: pleasant, female in no apparent distress HEENT: Normocephalic, atraumatic, mucus membranes moist, and no lesions CHEST: Normal inspiratory effort PELVIC: external genitalia normal, normal Bartholin's glands, urethra, [place]'s glands, no vulvar lesions, no cervical lesions, [...] 4 - Moderate documented in this encounter [facility] 10-31-2023 Sommer Panchal PA-C - 10/31/2023 [...] drinks Go! Be healthy, inside and out! [email or web address] Adolescent to Adult Transition Program [facility] cares about helping you and each of our adolescents and young adults make a smooth transition to adult care. If your current doctor is a tow truck driver, we will work with you to decide [...] your current doctor is in family medicine, [facility] will prepare you and your family [...] details. If joining our practice from outside [facility], we will help you request your [...] the use of evidence-driven strategies for health home care liaison, youth, young adults, and their families. www.gottransition.org https://gottransition.org/resource /?uzq-ouleoe-accekis documented in this encounter [facility] 10-31-2023 Note HNO ID: [id number] Author: SOMMER HERNANDEZ PA-C Service: ? Author Type: Physician Delivery Motorcycle Driver Type: Progress Notes Filed: 11/04/2023 07:46 Note Text: WELL VISIT PEDIATRIC 18+ YRS OLD Amirah is a 18 year old who presents today for well exam. SUBJECTIVE CONCERNS: Yeast infection in vaginal area, scalp, belly button - completed 7 day course Monistat, BACTERIOLOGY TEACHER advised in office visit with them Allergy/Immunology [...] (FLONASE) 50 mcg/actuation nasal spray Use 1 Java in each nostril once daily. loratadine (CLARITIN) [...] satisfactory Screening tools reviewed and discussed with patient/vpdaxu-ACM-0 and Social Determinants of Health. Please see [...] hard Transportation Ne (more content not included)... [place] 10-31-2023 History of Present illness Narrative WELL VISIT PEDIATRIC 18+ YRS OLD Amirah is a 18 year old who presents today for well exam. SUBJECTIVE CONCERNS: Yeast infection in vaginal area, scalp, belly button - completed 7 day course Monistat, BACTERIOLOGY TEACHER advised in office visit with them Allergy/Immunology [...] (FLONASE) 50 mcg/actuation nasal spray Use 1 Java in each nostril once daily. loratadine (CLARITIN) [...] satisfactory Screening tools reviewed and discussed with patient/[id number]-4 and Social Determinants of Health. Please see [...] and safety. - Dental care discussed. - [employer] handout given (See Patient Instructions). - No immunizations were given at this visit. - Follow up in one year for routine physical. Sommer Hernandez PA-C documented in this encounter [facility] 10-28-2023 Telephone encounter Note The following approved medication requests have been transmitted electronically. Requested Prescriptions Pending Prescriptions Disp Refills albuterol HFA (PROVENTIL HFA, VENTOLIN HFA) 90 mcg/actuation inhaler 18 g 0 Sig: Inhale 2 Puffs as instructed every 4 hours as needed for wheezing/shortness of breath. Que Chavez MD [facility] 10-28-2023 Miscellaneous Notes The following approved [...] Antonina Morse RN documented in this encounter [facility] 10-28-2023 Telephone encounter Note Last [facility]: [...] done Covid-19 Vaccine( season) due on 11/05/2022 nAtonina Morse RN [facility] 08-25-2023 History of Present illness Narrative Amirah Woodard is a 18 year old female who presents for problem visit burning with intercourse HPI: pt states that her previous symptoms are cleared up, but will have vaginal burning with intercourse and after. OB History T0 L0 SAB0 IAB0 Ectopic0 Multiple0 Live Births0 Rapid Outsole Stitcher History LMP: 07/04/2023 (Exact Date), Having periods Age at Menarche: Age at First : Age at Menopause: Rapid Outsole Stitcher History Comments: Sexual Activity: Yes; Male Contraception: [...] (FLONASE) 50 mcg/actuation nasal spray Use 1 Java in each nostril once daily. albuterol HFA [...] 3 - Low documented in this encounter [facility] 08-21-2023 Instructions Alecia Mendez APRN.JOSELYN - 08/21/2023 [...] inability to swallow. documented in this encounter [facility] 08-21-2023 History of Present illness Narrative Subjective The history is provided by the patient. No language translator was used. HPI Amirah Woodard is a 18 year old female who presents today for CC of sore throat and ever for one day. She is also having nasal congestion, and cough. She has used ibuprofen with short term relief. 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 BP 112/81 Pulse 104 Temp 36.4 C [...] have confirmed and edited as necessary, the [facility] Review of Systems Constitutional: Negative for [...] Alecia Mendez APRN.JOSELYN documented in this encounter [facility] 08-02-2023 Telephone encounter Note BV positive. To treat with Flagyl 500mg PO BID for 7 days. 1) No alcohol during treatment and for 24 hours after last dose. 2) No intercourse during treatment. 3) Probiotic by mouth once daily for 30 days or as needed. I would also recommend using boric acid vaginal suppositories for 7 night. Nilda Stiles APRN.CNP [facility] 08-02-2023 Miscellaneous Notes BV positive. To [...] Nilda Stiles APRN.JOSELYN documented in this encounter [facility] 07-29-2023 Telephone encounter Note The following approved medication requests have been transmitted electronically. Requested Prescriptions Pending Prescriptions Disp Refills fluticasone (FLONASE) 50 mcg/actuation nasal spray 1 Each 3 Sig: Use 1 Java in each nostril once daily. albuterol HFA (PROVENTIL HFA, VENTOLIN HFA) 90 mcg/actuation inhaler 18 g 0 Sig: Inhale 2 Puffs as instructed every 4 hours as needed for wheezing/shortness of breath. Que Chavez MD [facility] 07-29-2023 Miscellaneous Notes The following approved medication requests have been transmitted electronically. Requested Prescriptions Pending Prescriptions Disp Refills fluticasone (FLONASE) 50 mcg/actuation nasal spray 1 Each 3 Sig: Use 1 Java in each nostril once daily. albuterol HFA (PROVENTIL HFA, VENTOLIN HFA) 90 mcg/actuation inhaler 18 g 0 Sig: Inhale 2 Puffs as instructed every 4 hours as needed for wheezing/shortness of breath. Que Chavez MD Last [facility]: 10/05/22 Verify RX Benefits Completed Last medication [...] Antonina Morse RN documented in this encounter [facility] 07-29-2023 Telephone encounter Note Refill request received via [employer]. Patient last seen in office on 07/11/23. Caroline Mora RN [facility] 07-29-2023 Miscellaneous Notes Refill request received via [employer]. Patient last seen in office on 07/11/23. Caroline Mora RN documented in this encounter [facility] 07-29-2023 Telephone encounter Note Last [facility]: 10/05/22 Verify RX Benefits Completed Last medication [...] Health Screening Never done Antonina Morse RN [facility] 07-29-2023 History of Present illness Narrative Full Stack Engineer offered: Patient declines. Amirah Woodard is a [...] external genitalia normal, normal Bartholin's glands, urethra, [place]'s glands, no vulvar lesions, no cervical lesions, good vaginal support, physiologic discharge present, normal appearing perineal body and perianal region ASSESSMENT/PLAN: 1. Vaginal discharge - ICD9: 623.5, ICD10: N89.8 Diflucan ordered - FRNACO/TRICHOMONAS NAAT - BACTERIAL VAGINOSIS NAAT Will notify patient of test results. Nilda Stiles APRN.CNP Medical Decision Making: Problems: Moderate: New problem with uncertain prognosis Data: Unique test(s) ordered: 2 Risk: Moderate: Drug management Medical Decision Making Level: 4 - Moderate documented in this encounter [facility] 07-12-2023 Note Addended by: NILDA STILES on: 07/12/2023 02:21 PM Modules accepted: Orders [facility] 07-12-2023 Miscellaneous Notes Addended by: NILDA STILES on: 07/12/2023 02:21 PM Modules accepted: Orders BV positive. To treat with Flagyl 500mg PO BID for 7 days. 1) No alcohol during treatment and for 24 hours after last dose. 2) No intercourse during treatment. 3) Probiotic by mouth once daily for 30 days or as needed. Nilda Stiles APRN.CNP documented in this encounter [facility] 07-12-2023 Telephone encounter Note BV positive. To treat with Flagyl 500mg PO BID for 7 days. 1) No alcohol during treatment and for 24 hours after last dose. 2) No intercourse during treatment. 3) Probiotic by mouth once daily for 30 days or as needed. Nilda Stiles APRN.CNP [facility] 07-11-2023 History of Present illness Narrative Full Stack Engineer offered: Patient declines. Amirah Woodard is a [...] external genitalia normal, normal Bartholin's glands, urethra, [place]'s glands, no vulvar lesions, no cervical lesions, [...] 3 - Low documented in this encounter [facility] 06-29-2023 Telephone encounter Note The following approved medication requests have been transmitted electronically. Requested Prescriptions Pending Prescriptions Disp Refills albuterol HFA (PROVENTIL HFA, VENTOLIN HFA) 90 mcg/actuation inhaler 18 g 0 Sig: Inhale 2 Puffs as instructed every 4 hours as needed for wheezing/shortness of breath. Que Chavez MD [facility] 06-29-2023 Miscellaneous Notes The following approved medication requests have been transmitted electronically. Requested Prescriptions Pending Prescriptions Disp Refills albuterol HFA (PROVENTIL HFA, VENTOLIN HFA) 90 mcg/actuation inhaler 18 g 0 Sig: Inhale 2 Puffs as instructed every 4 hours as needed for wheezing/shortness of breath. Que Chavez MD documented in this encounter [facility] 06-24-2023 History of Present illness Narrative [...] Que Chavez MD documented in this encounter [facility] 05-16-2023 History of Present illness Narrative [...] Kia Lucero MD documented in this encounter [facility] 05-13-2023 Miscellaneous Notes Linked to appointment. Jody Hall RN Done Janelle Marin MD Patient is scheduled with today for IUD removal. Please file pending order to attach to her visit. Thank you. Kia Sheldon RN documented in this encounter [facility] 05-13-2023 History of Present illness Narrative [...] PATIENT PRESENTS WITH AN IMPLANTABLE OR ATTACHED SECONDARY SCHOOL PRINCIPAL: No RADIOLOGY DEPARTMENT: Ultrasound PERIPHERAL IV DATA: Not applicable SIGNED BY: Alla David RDMS May 13, 2023 8:31 AM documented in this encounter [facility] 05-03-2023 History of Present illness Narrative [...] L0 SAB0 IAB0 Ectopic0 Multiple0 Live Births0 Rapid Outsole Stitcher History LMP: 04/04/2023 (Exact Date), Having periods Age at Menarche: Age at First : Age at Menopause: Rapid Outsole Stitcher History Comments: Sexual Activity: Not Currently; Male [...] (FLONASE) 50 mcg/actuation nasal spray Use 1 Java in each nostril once daily. (Patient taking differently: Use 1 Java in each nostril once daily. PRN) Olopatadine [...] external genitalia normal, normal Bartholin's glands, urethra, [place]'s glands, no vulvar lesions, no cervical lesions, [...] 4 - Moderate R Chris MILES TEACHING BIOMETRIC FINGERPRINTING TECHNICIAN NOTE OF PERSONAL INVOLVEMENT IN CARE: I have interviewed the patient and updated the midwifery student's PFS history, and ROS as necessary. I have re-performed the HPI, Physical Examination, Assessment and Plan. Delfina Watson APRN.CNM documented in this encounter [facility] 11-12-2022 Miscellaneous Notes Please see pt's mychart message and further advise. Charis Crook LPN documented in this encounter [facility] 10-05-2022 Instructions Sommer Hernandez PA-C - [...] drinks Go! Be healthy, inside and out! [email or web address] Adolescent to Adult Transition Program [facility] cares about helping you and each of our adolescents and young adults make a smooth transition to adult care. If your current doctor is a tow truck driver, we will work with you to decide [...] your current doctor is in family medicine, [facility] will prepare you and your family [...] details. If joining our practice from outside [facility], we will help you request your [...] the use of evidence-driven strategies for health home care liaison, youth, young adults, and their families. www.gottransition.org https://gottransition.org/resource /?qsn-sjcjew-oiyuxrv documented in this encounter [facility] 10-05-2022 History of Present illness Narrative WELL VISIT PEDIATRIC 18+ YRS OLD Aimrah is a 17 year old who presents [...] (FLONASE) 50 mcg/actuation nasal spray Use 1 Java in each nostril once daily. (Patient taking differently: Use 1 Java in each nostril once daily. PRN) Olopatadine [...] satisfactory Screening tools reviewed and discussed with patient/[id number] and Social Determinants of Health. Please see [...] safety. - Dental care discussed. - [facility] [place] handout given (See Patient Instructions). - Patient was counseled [id number] by myself (the billing provider) for the following immunizations and vaccine components, including side effects: HPV. Patient consents for immunization and understands risks and benefits. A VIS sheet on each immunization was given to the patient. - Follow up in one year for routine physical. Sommer Hernandez PA-C documented in this encounter [facility] 07-15-2022 History of Present illness Narrative [...] (FLONASE) 50 mcg/actuation nasal spray Use 1 Java in each nostril once daily. Olopatadine (PATADAY [...] 3 - Low documented in this encounter [facility] 07-12-2022 Miscellaneous Notes She can do a virtual visit since I've seen her this year. Nilda Stiles APRN.CNP Do you want patient to have an in person or virtual visit to discuss? documented in this encounter [facility] 05-27-2022 History of Present illness Narrative Patient presents with: Sore Throat: Cough, chest congestion, runny nose x4 days HPI: Feeling sick for 5 days. Her boyfriend is sick with cough and sore throat also. 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 Positive symptoms: Cough, Sore throat, Nasal Congestion, [...] (FLONASE) 50 mcg/actuation nasal spray Use 1 Java in each nostril once daily. Olopatadine (PATADAY [...] Ramon Patrick MD documented in this encounter [facility] 05-10-2022 Miscellaneous Notes Voicemail and [employer]hart message to pt to offer sooner appt. Pt is currently scheduled for 05/17/22 for vaginal burning with intercourse. When pt calls the office please offer her time tomorrow to be seen. Charis Crook LPN documented in this encounter [facility] 05-07-2022 History of Present illness Narrative PEDIATRIC SICK VISIT SERVICE DATE: 04/18/2022 TEACHING PROVIDER (Physician/PA/ACID MIXER) NOTE OF PERSONAL INVOLVEMENT IN CARE: I have personally seen and examined the patient and performed the medical decision-making components. I have reviewed the Physician Delivery Motorcycle Driver (PA) Student's documentation and verified the findings in the note as written. Signature: Sommer Hernandez PA-C Date: 05/07/2022 Time: 9:01 AM This note was generated by a PA STUDENT working under the supervision of an Attending Physician Delivery Motorcycle Driver. As applicable, the findings, conclusions, and assessment of risk have been confirmed by a qualified provider. The note is NOT considered authenticated until addended and co-signed by the Attending Physician Delivery Motorcycle Driver at the beginning of this note. SUBJECTIVE: [...] contacts: No known sick contacts (works at longterm) HISTORY: ACTIVE PROBLEM LIST Allergic Rhinitis - [...] (FLONASE) 50 mcg/actuation nasal spray Use 1 Java in each nostril once daily. Olopatadine (PATADAY [...] TIME: 9:00 AM documented in this encounter [facility] 05-03-2022 Miscellaneous Notes Please have the patient make another appointment so that we can repeat the vaginal swabs to see if the infection has cleared. Nilda Stiles APRN.JOSELYN documented in this encounter [facility] 04-13-2022 Miscellaneous Notes Patient notified. States [...] Nilda Stiles APRN.CNP documented in this encounter [facility] 04-12-2022 History of Present illness Narrative [...] external genitalia normal, normal Bartholin's glands, urethra, [place]'s glands, no vulvar lesions, no cervical lesions, [...] 3 - Low documented in this encounter [facility] 04-09-2022 Miscellaneous Notes 1st attempt no answer, no voicemail. Called to R/S w/ [facility] for 04/12. Kia Tijerina documented in this encounter [facility] 03-16-2022 History of Present illness Narrative [...] L0 SAB0 IAB0 Ectopic0 Multiple0 Live Births0 Rapid Outsole Stitcher History LMP: 03/04/2022, Having periods Age at Menarche: Age at First : Age at Menopause: Rapid Outsole Stitcher History Comments: Sexual Activity: Not Currently; Male [...] (FLONASE) 50 mcg/actuation nasal spray Use 1 Java in each nostril once daily. Olopatadine (PATADAY [...] external genitalia normal, normal Bartholin's glands, urethra, [place]'s glands, no vulvar lesions, no cervical lesions, [...] 3 - Low documented in this encounter [facility] 01-18-2022 Instructions Alecia Mendez APRN.CNP - 01/18/2022 10:23 AM EST covid test ordered You will be notified in 12-24 hours, results available on [facility] Home isolation until covid results are back [...] inability to swallow. documented in this encounter [facility] 01-18-2022 History of Present illness Narrative Subjective The history is provided by the patient. No language translator was used. HPI Amirah Woodard is a 16 year old female who presents today for CC of cough, congestion, sore throat and fever that started on Tuesday. She has use tylenol, and nyquil with short term relief. 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 BP 118/64 Pulse 112 Temp 36.5 C [...] have confirmed and edited as necessary, the [facility] Review of Systems Constitutional: Negative for [...] in 24-48 hours with results, available on [employer]hart - COVID, FLU A/B + RSV, ROUTINE [...] Alecia Mendez APRN.JOSELYN documented in this encounter [facility] 10-28-2021 History of Present illness Narrative PEDIATRIC SICK VISIT SERVICE DATE: 10/28/2021 TEACHING PROVIDER (Physician/PA/CATRINA) NOTE OF PERSONAL INVOLVEMENT IN CARE: I have personally seen and examined the patient and performed the medical decision-making components. I have reviewed the Physician Delivery Motorcycle Driver (PA) Student's documentation and verified the findings in the note as written. Signature: Sommer Hernandez PA-C Date: 10/28/2021 Time: 9:59 AM This note was generated by a PA STUDENT working under the supervision of an Attending Physician Delivery Motorcycle Driver. As applicable, the findings, conclusions, and assessment of risk have been confirmed by a qualified provider. The note is NOT considered authenticated until addended and co-signed by the Attending Physician Delivery Motorcycle Driver at the beginning of this note. SUBJECTIVE: [...] (FLONASE) 50 mcg/actuation nasal spray Use 1 Java in each nostril once daily. Olopatadine (PATADAY [...] TIME: 9:00 AM documented in this encounter [facility] 10-05-2021 Instructions Alecia Mendez APRN.HAY SORTER - 10/05/2021 1:02 PM EDT covid test ordered You will be notified in 24 -48 hours, [facility] until covid results are [...] inability to swallow. documented in this encounter [facility] 10-05-2021 History of Present illness Narrative [...] have confirmed and edited as necessary, the [facility] Review of Systems Constitutional: Positive for [...] in 24-48 hours with results, available on [employer]hart - COVID, FLU A/B + RSV, ROUTINE [...] Alecia Mendez APRN.JOSELYN documented in this encounter [facility] 07-13-2021 Instructions Que Chavez MD - [...] drinks Go! Be healthy, inside and out! www.[facility].org/5toGo Adolescent to Adult Transition Program [facility] cares about helping you and each of our adolescents and young adults make a smooth transition to adult care. If your current doctor is a tow truck driver, we will work with you to decide [...] your current doctor is in family medicine, [facility] will prepare you and your family [...] details. If joining our practice from outside [facility], we will help you request your [...] the use of evidence-driven strategies for health home care liaison, youth, young adults, and their families. www.gottransition.org https://[employer].org/resource /?usd-szmglo-rqvkqvz Healthy Children Ages & Stages Texting Program HealthyChildren.org is an AAP ([place] Academy of [employer]s) parenting website. It is [...] https://www.healthychildren.org/En natachash/tips-tools/HealthyChildren-T exting-Program/Pages/default.aspx documented in this encounter [facility] 07-13-2021 History of Present illness Narrative [...] (FLONASE) 50 mcg/actuation nasal spray Use 1 Java in each nostril once daily. Olopatadine (PATADAY [...] No Screening tools reviewed and discussed with patient/[id number]-[id number]-T and Social Determinants of Health. Please see [...] TIME: 9:00 AM documented in this encounter [facility] 06-12-2021 History of Present illness Narrative [...] TDAP VACCINE AGE 7+ IM MENINGOCOCCAL CONJUGATE [id number], IM She has had a partial response [...] 2021 TIME: 9:13 AM Parent/guardian was counseled [id number] by myself (the billing provider) for the following immunizations, including side effects: Menactra and TdaP. Parent/guardian consents for immunization and understands risks and benefits. A VIS sheet on each immunization was offered to the parent. SIGNATURE: Que Chavez MD PATIENT NAME: Aimrah Woodard DATE: June 12, 2021 TIME: 9:29 AM documented in this encounter [facility] 06-12-2021 Instructions Que Chavez MD - [...] drinks Go! Be healthy, inside and out! www.[facility].org/5toGo documented in this encounter [facility] 08-09-2016 History of Past i llness Narrative Problem Noted Date Resolved Date Exercise-induced asthma with acute exacerbation 08/09/2016 06/12/2021 documented as of this encounter (statuses as of 06/12/2021) [facility] of Past illness Narrative* Problem Noted Date Resolved Date Exercise-induced asthma with acute exacerbation 08/09/2016 06/12/2021 documented as of this encounter (statuses as of 07/13/2021) [facility] of Past illness Narrative* Problem Noted Date Resolved Date Exercise-induced asthma with acute exacerbation 08/09/2016 06/12/2021 documented as of this encounter (statuses as of 09/18/2021) [facility] of [facility] illness Narrative* Problem Noted Date Resolved Date Exercise-induced asthma with acute exacerbation 08/09/2016 06/12/2021 documented as of this encounter (statuses as of 10/05/2021) [facility] of [facility] Narrative* Problem Noted Date Resolved Date Exercise-induced asthma with acute exacerbation 08/09/2016 06/12/2021 documented as of this encounter (statuses as of 10/28/2021) [facility] of [facility] Narrative* Problem Noted Date Resolved Date Exercise-induced asthma with acute exacerbation 08/09/2016 06/12/2021 documented as of this encounter (statuses as of 12/28/2021) [facility] of [facility] Narrative* Problem Noted Date Resolved Date Exercise-induced asthma with acute exacerbation 08/09/2016 06/12/2021 documented as of this encounter (statuses as of 01/18/2022) [facility] of [facility] Narrative* Problem Noted Date Resolved Date Exercise-induced asthma with acute exacerbation 08/09/2016 06/12/2021 documented as of this encounter (statuses as of 03/16/2022) [facility] Narrative* Problem Noted Date Resolved Date Exercise-induced asthma with acute exacerbation 08/09/2016 06/12/2021 documented as of this encounter (statuses as of 04/09/2022) [facility] Narrative* Problem Noted Date Resolved Date Exercise-induced asthma with acute exacerbation 08/09/2016 06/12/2021 documented as of this encounter (statuses as of 04/12/2022) [facility] Narrative* Problem Noted Date Resolved Date Exercise-induced asthma with acute exacerbation 08/09/2016 06/12/2021 documented as of this encounter (statuses as of 04/13/2022) [facility] of [facility] Narrative* Problem Noted Date Resolved Date Exercise-induced asthma with acute exacerbation 08/09/2016 06/12/2021 documented as of this encounter (statuses as of 05/03/2022) [facility] Narrative* Problem Noted Date Resolved Date Exercise-induced asthma with acute exacerbation 08/09/2016 06/12/2021 documented as of this encounter (statuses as of 05/07/2022) [facility] Narrative* Problem Noted Date Resolved Date Exercise-induced asthma with acute exacerbation 08/09/2016 06/12/2021 documented as of this encounter (statuses as of 05/11/2022) [facility] Narrative* Problem Noted Date Resolved Date Exercise-induced asthma with acute exacerbation 08/09/2016 06/12/2021 documented as of this encounter (statuses as of 05/27/2022) [facility] Narrative* Problem Noted Date Resolved Date Exercise-induced asthma with acute exacerbation 08/09/2016 06/12/2021 documented as of this encounter (statuses as of 07/13/2022) [facility] Narrative* Problem Noted Date Resolved Date Exercise-induced asthma with acute exacerbation 08/09/2016 06/12/2021 documented as of this encounter (statuses as of 07/16/2022) [facility] Narrative* Problem Noted Date Diagnosed Date Resolved Date Exercise-induced asthma with acute exacerbation 08/09/2016 06/12/2021 documented as of this encounter (statuses as of 10/06/2022) [facility] Narrative* Problem Noted Date Diagnosed Date Resolved Date Exercise-induced asthma with acute exacerbation 08/09/2016 06/12/2021 documented as of this encounter (statuses as of 11/12/2022) [facility] Narrative* Problem Noted Date Diagnosed Date Resolved Date Exercise-induced asthma with acute exacerbation 08/09/2016 06/12/2021 documented as of this encounter (statuses as of 04/28/2023) [facility] Narrative* Problem Noted Date Diagnosed Date Resolved Date Exercise-induced asthma with acute exacerbation 08/09/2016 06/12/2021 documented as of this encounter (statuses as of 05/13/2023) [facility] Narrative* Problem Noted Date Diagnosed Date Resolved Date Exercise-induced asthma with acute exacerbation 08/09/2016 06/12/2021 documented as of this encounter (statuses as of 05/14/2023) [facility] Narrative* Problem Noted Date Diagnosed Date Resolved Date Exercise-induced asthma with acute exacerbation 08/09/2016 06/12/2021 documented as of this encounter (statuses as of 05/16/2023) [facility] Narrative* Problem Noted Date Diagnosed Date Resolved Date Exercise-induced asthma with acute exacerbation 08/09/2016 06/12/2021 documented as of this encounter (statuses as of 05/18/2023) [facility] Narrative* Problem Noted Date Diagnosed Date Resolved Date Exercise-induced asthma with acute exacerbation 08/09/2016 06/12/2021 documented as of this encounter (statuses as of 06/24/2023) [facility] Conrado Richardson [facility] Note Date/Time September 04, 2024 12:01 pm [facility] Medical Records Department [address] [place] [address] Emergency Department Summary 09/04/24 MR#: [id number] Acct: [id number] Name: AMIRAH WOODARD Rep #:[id number] : [...] discomfort that was diffuse. Lightheadedness. 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 Adrienne Marin. Who [...] 10/04/23 Unknown Hist ory cell-Bifido 25 billion psyh-YHZ-afycv capsule albuterol sulfate 90 mcg/actuation inhalation 10/04/23 [...] the ankles bilaterally. Dorsi plantarflexion intact. Normal facilities planner strength. Normal radial pulses. Back nontender. Neurologically [...] Tylenol for pain. Outpatient follow-up with her QUICK PRINT OPERATOR. History & Record Review Discussion w/independent historian: [...] 70.6 H Lymph % (Auto) 16.7 L Swisher % (Auto) 8.8 Eos % (Auto) 2.2 [...] dissection No acute pulmonary process Reading Location: [facility] Rhythm Strip Rhythm Strip: Sinus Tach Rate: 113 Ectopy: None EKG Initial EKG: Attestation: I personally reviewed and interpreted this EKG as follows: Interpretation: No Acute Injury Pattern and Sinus Tachycardia Comments: Sinus tachycardia rate of 113 no acute signs of FL or ischemia. Discharge Plan Triage Chief Complaint: Chest Pain ED Provider: Conrado Richardson Dx/Rx/DC Orders Clinical Impression: Chest pain, Third trimester Instructions: ED Chest Pain, Uncertain Cause Prescriptions: No Action albuterol sulfate 90 mcg/actuation HFA aerosol inhaler inhalation Lacto no.88-Abrzcy-DNK-larch 25B cell-25B cell-50 mg capsule PO One A Day Women's DHA 28 mg iron- 800 mcg combo pack PO Primary Care Provider: Ruiz Vega Referrals: Ruiz Vega DO [Primary Care Provider] - As Needed Janelle Marin MD [Med Staff - Active Staff] - As Needed Activity Restrictions/Additional Instructions: Follow-up your QUICK PRINT OPERATOR and your primary care physician as needed. Your test today looked good. No signs of a blood clot or heart attack. Print Language: Hungarian Disposition Disposition: Home, Self Care What to do if you have Problems For any increased pain, shortness of breath, bleeding, nausea or vomiting, chestpain, or any unexpected problems, contact your Primary Care Provider. Call [facility] ([phone]) or report to the closest Emergency Room. Call 911 if necessary. 09/04/24 1201 <Electronically signed by Conrado Richardson MD> Cosigner Signature (if applicable): CC: Dr. Ruiz Vega DO ~ Signed [facility] Work Phone: Evaluation note* Diagnosis Gastroesophageal reflux disease, unspecified whether esophagitis present- Primary Encounter for immunization Need for other specified prophylactic vaccination against single bacterial disease [facility] Encounter for WCC (well child check) with abnormal findings- Primary Gastroesophageal reflux disease, unspecified whether esophagitis present Allergic rhinitis, unspecified seasonality, unspecified trigger [facility] Diagnosis Pelvic pain in female- Primary Unspecified symptom associated with female genital organs [facility] Diagnosis Upper respiratory symptom- Primary Other symptoms involving respiratory system and chest Suspected COVID-19 virus infection [facility] Diagnosis Seasonal allergies- Primary Allergic rhinitis, cause unspecified [facility] Diagnosis Encounter for immunization- Primary Need for other specified prophylactic vaccination against single bacterial disease [facility] Diagnosis Acute cough- Primary Fever, unspecified fever cause Sore throat Acute pharyngitis URI with cough and congestion [facility] Diagnosis Pelvic pain in female- Primary Unspecified symptom associated with female genital organs Encounter for surveillance of contraceptive pills Surveillance of previously prescribed contraceptive pill [facility] Diagnosis Vaginal irritation- Primary Unspecified noninflammatory disorder of vagina [facility] Diagnosis Dysfunction of both eustachian tubes- Primary Dysfunction of Eustachian tube Seasonal allergies Allergic rhinitis, cause unspecified [facility] Diagnosis URI, acute- Primary Acute upper respiratory infections of unspecified site Wheezing [facility] Diagnosis Missed period- Primary Irregular menstrual cycle Encounter for other contraceptive management [facility] Diagnosis Encounter for wellness examination in adult- Primary Encounter for immunization Need for other specified prophylactic vaccination against single bacterial disease [facility] Diagnosis Malpositioned intrauterine device (IUD), initial encounter- Primary Encounter for IUD removal Encounter for removal of intrauterine contraceptive device [facility] Diagnosis Pelvic pain in female Unspecified symptom associated with female genital organs [facility] Diagnosis Encounter for IUD removal- Primary Encounter for removal of intrauterine contraceptive device Displacement of intrauterine contraceptive device, initial encounter Malpositioned intrauterine device (IUD), initial encounter [facility] Diagnosis Vaginal discharge- Primary Leukorrhea, not specified as infective Vaginal itching Pruritus of genital organs Pelvic pain in female Unspecified symptom associated with female genital organs [facility] Diagnosis Pes planus of both feet- Primary Pain in archer, unspecified laterality Acute upper respiratory infection Acute upper respiratory infections of unspecified site Mild intermittent asthma with (acute) exacerbation [facility] Diagnosis Wheezing [facility] Diagnosis Vaginal burning- Primary Other specified symptom associated with female genital organs [facility] Diagnosis BV (bacterial vaginosis) Vaginitis and vulvovaginitis, unspecified [facility] Diagnosis Wheezing [facility] Diagnosis Vaginal discharge- Primary Leukorrhea, not specified as infective [facility] Diagnosis Sore throat- Primary Acute pharyngitis Viral illness Unspecified viral infection, in conditions classified elsewhere and of unspecified site [facility] Diagnosis Vaginal burning- Primary Other specified symptom associated with female genital organs [facility] Diagnosis Wheezing [facility] Diagnosis Wheezing [facility] Diagnosis Encounter for wellness examination in adult- Primary Mild intermittent asthma with (acute) exacerbation Seborrhea Adverse food reaction, initial encounter [facility] Diagnosis Vaginal discharge- Primary Leukorrhea, not specified as infective Vaginal irritation Unspecified noninflammatory disorder of vagina Family history of thyroid disorder Family history of other endocrine and metabolic diseases [facility] Diagnosis Encounter for test, result positive- Primary examination or test, positive result [facility]* Diagnosis Encounter for care in first trimester of first - Primary 7 weeks gestation of state, incidental Vaginal irritation Unspecified noninflammatory disorder of vagina BMI 32.0-32.9,adult Body Mass Index 32.0-32.9, adult Supervision of normal first teen in first trimester [facility]* Diagnosis Sore throat- Primary Acute pharyngitis [facility] Diagnosis Acute non-recurrent frontal sinusitis- Primary documented in [facility]* Diagnosis Vaginal irritation- Primary Unspecified noninflammatory disorder of vagina Vaginal discharge Leukorrhea, not specified as infective Encounter for care in first trimester of first 12 weeks gestation of state, incidental [facility] Diagnosis Supervision of normal first teen in first trimester- Primary 13 weeks gestation of state, incidental Obesity in Obesity complicating , childbirth, or the puerperium, unspecified as to episode of care or not applicable [facility] Diagnosis Encounter for screening for malformation using ultrasound- Primary 13 weeks gestation of state, incidental documented in this encounter [facility] note* Diagnosis Wheezing [facility] Diagnosis Supervision of normal first teen in second trimester- Primary Obesity in Obesity complicating , childbirth, or the puerperium, unspecified as to episode of care or not applicable 16 weeks gestation of state, incidental Dizziness Dizziness and giddiness [facility] Diagnosis Supervision of normal first teen in second trimester- Primary Obesity in Obesity complicating , childbirth, or the puerperium, unspecified as to episode of care or not applicable 20 weeks gestation of state, incidental documented in this encounter [facility] note* Diagnosis Obesity in - Primary Obesity complicating , childbirth, or the puerperium, unspecified as to episode of care or not applicable Supervision of normal first teen in first trimester 13 weeks gestation of state, incidental [facility]* Diagnosis Obesity in (HCC)- Primary Obesity complicating , childbirth, or the puerperium, unspecified as to episode of care or not applicable Supervision of normal first teen in second trimester (HCC) 22 weeks gestation of (HCC) state, incidental Cramping affecting , antepartum (HCC) documented in this encounter [facility] note* Diagnosis 24 weeks gestation of (HCC)- Primary state, incidental Obesity in (HCC) Obesity complicating , childbirth, or the puerperium, unspecified as to episode of care or not applicable Screening for diabetes mellitus * Assessment & Plan Note - Janelle Marin MD - 06/19/2024 2:51 PM EDTAssociated Problem(s): Obesity in (HCC) documented in this encounter [facility] note* Diagnosis 24 weeks gestation of [...] first teen in second trimester ([facility]) Decreased movements in second trimester, single or unspecified fetus ([facility]) documented in this encounter [facility] note* Diagnosis 24 weeks gestation of (HCC)- Primary state, incidental Obesity in (HCC) Obesity complicating , childbirth, or the puerperium, unspecified as to episode of care or not applicable Screening for diabetes mellitus Supervision of high risk in third trimester ([facility])- Primary Unspecified high-risk 28 weeks gestation of ([facility]) state, incidental Obesity affecting in third trimester, unspecified obesity type ([facility]) Vaginal discharge during in third trimester ([facility]) documented in this encounter [facility] note* Diagnosis 24 weeks gestation of (HCC)- Primary state, incidental Obesity in (HCC) Obesity complicating , childbirth, or the puerperium, unspecified as to episode of care or not applicable Screening for diabetes mellitus Supervision of high risk in third trimester ([facility])- Primary Unspecified high-risk 30 weeks gestation of ([facility]) state, incidental Rash Rash and other nonspecific skin eruption Other obesity due to excess calories affecting , antepartum ([facility]) Allergic rhinitis, unspecified seasonality, unspecified trigger * Assessment & Plan Note - Castillo Mckeon MD - 08/01/2024 9:51 AM EDT Associated Problem(s): Supervision of high risk in third trimester ([facility]) Orders: COMPLETE BLOOD COUNT AND DIFFERENTIAL; Future COMPREHENSIVE METABOLIC PANEL; Future BILE ACIDS, TOTAL; Future * Assessment & Plan Note - Castillo Mckeon MD - 08/01/2024 9:51 AM EDT Associated Problem(s): Allergic rhinitis [facility]* Diagnosis 24 weeks gestation of ([facility])- Primary state, incidental Obesity in ([facility]) Obesity complicating , childbirth, or the puerperium, unspecified as to episode of care or not applicable Screening for diabetes mellitus Supervision of high risk in third trimester ([facility])- Primary Unspecified high-risk 30 weeks gestation of ([facility]) state, incidental Rash Rash and other nonspecific skin eruption Other obesity due to excess calories affecting , antepartum ([facility]) Allergic rhinitis, unspecified seasonality, unspecified trigger Well adult exam- Primary Routine general medical examination at a health care facility 31 weeks gestation of ([facility]) state, incidental Class 2 obesity with body mass index (BMI) of 35.0 to 35.9 in adult, unspecified obesity type, unspecified whether serious comorbidity present Gastroesophageal reflux disease without esophagitis Esophageal reflux [facility]* Diagnosis 24 weeks gestation of (HCC)- Primary state, incidental Obesity in ([facility]) Obesity complicating , childbirth, or the puerperium, unspecified as to episode of care or not applicable Screening for diabetes mellitus Supervision of high risk in third trimester ([facility])- Primary Unspecified high-risk 30 weeks gestation of ([facility]) state, incidental Rash Rash and other nonspecific skin eruption Other obesity due to excess calories affecting , antepartum ([facility]) Allergic rhinitis, unspecified seasonality, unspecified trigger Supervision of high risk in third trimester (HCC)- Primary Unspecified high-risk 32 weeks gestation of (HCC) state, incidental Obesity affecting in third trimester, unspecified obesity type (HCC) documented in this encounter [facility] note* Diagnosis 24 weeks gestation of [...] (HCC) state, incidental documented in this encounter [facility] noteNo assessment information availableWCleveland [facility] Work Phone: Evaluation note* Diagnosis 24 weeks [...] OB DIP B/O [facility]* Diagnosis 24 weeks gestation of [...] excess calories affecting , antepartum ([facility]) Allergic rhinitis, unspecified seasonality, unspecified trigger Supervision [...] (HCC) rx pepcid documented in this encounter [facility] note* Diagnosis 24 weeks gestation of (HCC)- Primary state, incidental Obesity in ([facility]) Obesity complicating , childbirth, or the puerperium, unspecified as to episode of care or not applicable Screening for diabetes mellitus Supervision of high risk in third trimester ([facility])- Primary Unspecified high-risk 30 weeks gestation of ([facility]) state, incidental Rash Rash and other nonspecific skin eruption Other obesity due to excess calories affecting , antepartum ([facility]) Allergic rhinitis, unspecified seasonality, unspecified trigger Supervision of high risk in third trimester ([facility])- Primary Unspecified high-risk Obesity affecting in third trimester, unspecified obesity type ([facility]) 35 weeks gestation of ([facility]) state, incidental 36 weeks gestation of ([facility])- Primary state, incidental Supervision of high risk in third trimester ([facility]) Unspecified high-risk Obesity affecting in third trimester, unspecified obesity type ([facility]) Heartburn during in third trimester ([facility]) Supervision of high risk in third trimester ([facility])- Primary Unspecified high-risk 37 weeks gestation of ([facility]) state, incidental Positive GBS test documented in this encounter [facility] note* Diagnosis 24 weeks gestation of (HCC)- Primary state, incidental Obesity in ([facility]) Obesity complicating , childbirth, or the puerperium, unspecified as to episode of care or not applicable Screening for diabetes mellitus Supervision of high risk in third trimester ([facility])- Primary Unspecified high-risk 30 weeks gestation of ([facility]) state, incidental Rash Rash and other nonspecific skin eruption Other obesity due to excess calories affecting , antepartum ([facility]) Allergic rhinitis, unspecified seasonality, unspecified trigger Supervision of high risk in third trimester ([facility])- Primary Unspecified high-risk Obesity affecting in third trimester, unspecified obesity type (HCC) 35 weeks gestation of ([facility]) state, incidental 36 weeks gestation of (HCC)- [...] OB DIP B/O [facility]* Diagnosis 24 weeks gestation of [...] excess calories affecting , antepartum ([facility]) Allergic rhinitis, unspecified seasonality, unspecified trigger Supervision [...] (HCC) Unspecified high-risk Obesity in ([facility]) Obesity complicating , childbirth, or the puerperium, unspecified as to episode of care or not applicable Positive GBS test documented [facility] Discharge instructionsAdditional Instructions Follow-up your [employer] and your primary care physician as needed. Your test today looked good. No signs of a blood clot or heart attack.[facility] Work Phone: Reason for referral (narrative)* Outpatient Procedure (Routine) - Pending Review Specialty Diagnoses / Procedures Referred By Lance t Referred To Contact [facility] Diagnoses Malpositioned intrauterine device (IUD), initial encounter Encounter for IUD removal Procedures REMOVE INTRAUTERINE DEVICE REMOVE INTRAUTERINE DEVICE Janelle Marin MD [address] [place] [address] [facility] [address] [place] [address] Referral ID Status Reason Start Date Expiration Date Visits Requested Visits Authorized [id number] Pending Review Auto-Generat ed Referral 05/13/2023 05/12/2024 1 1 [facility] for referral (narrative)* Diagnostic Procedure Only (Routine) - Closed Specialty Diagnoses / Procedures Referred By Contac t Referred To Contact [facility] Diagnoses Pelvic pain in female Procedures US FEMALE PELVIS TRANSVAG US TRANSVAGINAL Delfina Watson APRN.CNM [address] [place] [address] [place] [address] Referral ID Status Reason Start Date Expiration Date V isits Requested Visits Authorized [id number] Closed Auto-Generate d Referral 05/03/2023 06/01/2024 1 1 [facility] for referral (narrative)* Diagnostic Procedure Only (Routine) - Closed Specialty Diagnoses / Procedures Referred By Contac t Referred To Contact [facility] Diagnoses Pelvic pain in female Procedures US FEMALE PELVIS TRANSVAG US TRANSVAGINAL Delfina Watson APRN.CNM [address] [place] [address] [place] [address] Referral ID Status Reason Start Date Expiration Date V isits Requested Visits Authorized [id number] Closed Auto-Generate d Referral 05/03/2023 06/01/2024 1 1 [facility] for referral (narrative)* Diagnostic Procedure Only (Routine) - Authorized Specialty Diagnoses / Procedures Referred By Contac t Referred To Contact [facility] Diagnoses Encounter for care in first trimester of first 7 weeks gestation of Procedures NUCHAL TRANSLUCENCY WHI US NUCHAL TRANSLUCENCY 1ST GESTATION Nilda Stiles APRN.CNP [address] [place] [address] [place] [id number] Referral ID Status Reason Start Date Expiration Date Visits Requested Visits Authorized [id number] Authorized Auto-Generat ed Referral 02/20/2025 1 1 [facility] for referral (narrative)* Diagnostic Procedure Only (Routine) - Authorized Specialty Diagnoses / Procedures Referred By Contac t Referred To Contact [facility] Diagnoses Supervision of normal first teen in first trimester 13 weeks gestation of Obesity in Procedures OBSTETRIC ULTRASOUND WHI US PREG UTERUS AFTER 1ST TRIMEST GESTATION Delfina Watson APRN.CNM [address] [place] [place] [address] [facility] [address] [place] [address] Referral ID Status Reason Start Date Expiration Date Visits Requested Visits Authorized [id number] Authorized Auto-Generat ed Referral 04/03/2024 04/03/2025 1 1 [facility] for referral (narrative)No reason for referral information availableWCleveland Clinic [facility] Work Phone: Reason for visit Narrative* Outpatient Procedure (Routine) - Authorized Specialty Diagnoses / Procedures Referred By Contac t Referred To Contact [facility] Diagnoses Malpositioned intrauterine device (IUD), initial encounter Encounter for IUD removal Procedures REMOVE INTRAUTERINE DEVICE REMOVE INTRAUTERINE DEVICE Janelle Marin MD [address] [place] [address] [facility] [address] [place] [address] Referral ID Status Reason Start Date Expiration Date Visits Requested Visits Authorized [id number] Authorized Auto-Generat ed Referral 05/16/2023 03/06/2024 2 2 [facility] Concerns Infection Onset Date Last Indicated Resolved Time COVID-19 Rule-Out 10/05/2021 10/05/2021 Infection Onset Date Last Indicated Resolved Time COVID-19 Rule-Out 01/18/2022 01/18/2022 Reason for Referral Specialty Diagnoses / Procedures Referred By Contac t Referred To Contact Diagnoses Ramon Chinchilla MD [address] [place] [address] Referral ID Status Reason Start Date Expiration Date Visits Re quested Visits Authorized [id number] Closed 1 1 Specialty Diagnoses / Procedures Referred By Contac t Referred To Contact Diagnoses BV (bacterial vaginosis) Nilda Stiles APRN.HAY SORTER [address] [place] [address] Referral ID Status Reason Start Date Expiration Date Visits Re quested Visits Authorized [id number] Closed 1 1 Specialty Diagnoses / Procedures Referred By Contac t Referred To Contact Allergy Diagnoses Adverse food reaction, initial encounter Procedures CONSULT TO ALLERGY/IMMUNOLOGY OFFICE/OUTPATIENT [facility] 60 MINUTES Sommer Hernandez PA-C [address] [place] [address] Referral ID Status Reason Start Date Expiration Date Visits Requested Visits Authorized [id number] Authorized PCP Requested Referral 10/31/2023 10/30/2024 1 1 Chief Complaint and Reason for Visit Chief Complaint Admit Date SOB September 04, 2024 10:11 am Chief Complaint Admit Date SOB September 04, 2024 10:11 am [facility] [employer] October 12, 2024 11: 20pm Advance Directives Advance Directive Response Recorded Date/ Time Do you have a Healthcare Power of Director Of Sleep? No September 04, 2024 10:30am Summary Purpose [...] or prosecute any alcohol or drug abuse patient.[facility] the event this information is protected by the Federal Confidentiality of Alcohol and Drug Abuse Patient Records regulations: The Federal rules restrict any use of the information to criminally investigate or prosecute any alcohol or drug abuse patient.[facility] the event this information is protected by the Federal Confidentiality of Alcohol and Drug Abuse Patient Records regulations: The Federal rules restrict any use of the information to criminally investigate or prosecute any alcohol or drug abuse patient.[facility] the event this information is protected by the Federal Confidentiality of Alcohol and Drug Abuse Patient Records regulations: The Federal rules restrict any use of the information to criminally investigate or prosecute any alcohol or drug abuse patient.[facility] the event this information is protected by the Federal Confidentiality of Alcohol and Drug Abuse Patient Records regulations: The Federal rules restrict any use of the information to criminally investigate or prosecute any alcohol or drug abuse patient.[facility] Hospital[facility] the event this information is protected by the Federal Confidentiality of Alcohol and Drug Abuse Patient Records regulations: The Federal rules restrict any use of the information to criminally investigate or prosecute any alcohol or drug abuse patient.[facility] Hospital[facility] the event this information is protected by the Federal Confidentiality of Alcohol and Drug Abuse Patient Records regulations: The Federal rules restrict any use of the information to criminally investigate or prosecute any alcohol or drug abuse patient.[facility] HospitalIn the event this information is protected by the Federal Confidentiality of Alcohol and Drug Abuse Patient Records regulations: The Federal rules restrict any use of the information to criminally investigate or prosecute any alcohol or drug abuse patient.[facility] the event this information is protected by the Federal Confidentiality of Alcohol and Drug Abuse Patient Records regulations: The Federal rules restrict any use of the information to criminally investigate or prosecute any alcohol or drug abuse patient.[facility] the event this information is protected by the Federal Confidentiality of Alcohol and Drug Abuse Patient Records regulations: The Federal rules restrict any use of the information to criminally investigate or prosecute any alcohol or drug abuse patient.[facility] the event this information is protected by the Federal Confidentiality of Alcohol and Drug Abuse Patient Records regulations: The Federal rules restrict any use of the information to criminally investigate or prosecute any alcohol or drug abuse patient.[facility] Hospital[facility] the event this information is protected by the Federal Confidentiality of Alcohol and Drug Abuse Patient Records regulations: The Federal rules restrict any use of the information to criminally investigate or prosecute any alcohol or drug abuse patient.[facility] Hospital[facility] the event this information is protected by the Federal Confidentiality of Alcohol and Drug Abuse Patient Records regulations: The Federal rules restrict any use of the information to criminally investigate or prosecute any alcohol or drug abuse patient.[facility] HospitalIn the event this information is protected by the Federal Confidentiality of Alcohol and Drug Abuse Patient Records regulations: The Federal rules restrict any use of the information to criminally investigate or prosecute any alcohol or drug abuse patient.[facility] the event this information is protected by the Federal Confidentiality of Alcohol and Drug Abuse Patient Records regulations: The Federal rules restrict any use of the information to criminally investigate or prosecute any alcohol or drug abuse patient.[facility] HospitalIn the event this information is protected by the Federal Confidentiality of Alcohol and Drug Abuse Patient Records regulations: The Federal rules restrict any use of the information to criminally investigate or prosecute any alcohol or drug abuse patient.[facility] the event this information is protected by the Federal Confidentiality of Alcohol and Drug Abuse Patient Records regulations: The Federal rules restrict any use of the information to criminally investigate or prosecute any alcohol or drug abuse patient.[facility] HospitalIn the event this information is protected by the Federal Confidentiality of Alcohol and Drug Abuse Patient Records regulations: The Federal rules restrict any use of the information to criminally investigate or prosecute any alcohol or drug abuse patient.[facility] HospitalIn the event this information is protected by the Federal Confidentiality of Alcohol and Drug Abuse Patient Records regulations: The Federal rules restrict any use of the information to criminally investigate or prosecute any alcohol or drug abuse patient.[facility] HospitalIn the event this information is protected by the Federal Confidentiality of Alcohol and Drug Abuse Patient Records regulations: The Federal rules restrict any use of the information to criminally investigate or prosecute any alcohol or drug abuse patient.[facility] HospitalIn the event this information is protected by the Federal Confidentiality of Alcohol and Drug Abuse Patient Records regulations: The Federal rules restrict any use of the information to criminally investigate or prosecute any alcohol or drug abuse patient.[facility] HospitalIn the event this information is protected by the Federal Confidentiality of Alcohol and Drug Abuse Patient Records regulations: The Federal rules restrict any use of the information to criminally investigate or prosecute any alcohol or drug abuse patient.[facility] HospitalIn the event this information is protected by the Federal Confidentiality of Alcohol and Drug Abuse Patient Records regulations: The Federal rules restrict any use of the information to criminally investigate or prosecute any alcohol or drug abuse patient.[facility] HospitalIn the event this information is protected by the Federal Confidentiality of Alcohol and Drug Abuse Patient Records regulations: The Federal rules restrict any use of the information to criminally investigate or prosecute any alcohol or drug abuse patient.[facility] HospitalIn the event this information is protected by the Federal Confidentiality of Alcohol and Drug Abuse Patient Records regulations: The Federal rules restrict any use of the information to criminally investigate or prosecute any alcohol or drug abuse patient.[facility] HospitalIn the event this information is protected by the Federal Confidentiality of Alcohol and Drug Abuse Patient Records regulations: The Federal rules restrict any use of the information to criminally investigate or prosecute any alcohol or drug abuse patient.[facility] HospitalIn the event this information is protected by the Federal Confidentiality of Alcohol and Drug Abuse Patient Records regulations: The Federal rules restrict any use of the information to criminally investigate or prosecute any alcohol or drug abuse patient.[facility] HospitalIn the event this information is protected by the Federal Confidentiality of Alcohol and Drug Abuse Patient Records regulations: The Federal rules restrict any use of the information to criminally investigate or prosecute any alcohol or drug abuse patient.[facility] HospitalIn the event this information is protected by the Federal Confidentiality of Alcohol and Drug Abuse Patient Records regulations: The Federal rules restrict any use of the information to criminally investigate or prosecute any alcohol or drug abuse patient.[facility] HospitalIn the event this information is protected by the Federal Confidentiality of Alcohol and Drug Abuse Patient Records regulations: The Federal rules restrict any use of the information to criminally investigate or prosecute any alcohol or drug abuse patient.[facility] HospitalIn the event this information is protected by the Federal Confidentiality of Alcohol and Drug Abuse Patient Records regulations: The Federal rules restrict any use of the information to criminally investigate or prosecute any alcohol or drug abuse patient.[facility] HospitalIn the event this information is protected by the Federal Confidentiality of Alcohol and Drug Abuse Patient Records regulations: The Federal rules restrict any use of the information to criminally investigate or prosecute any alcohol or drug abuse patient.[facility] HospitalIn the event this information is protected by the Federal Confidentiality of Alcohol and Drug Abuse Patient Records regulations: The Federal rules restrict any use of the information to criminally investigate or prosecute any alcohol or drug abuse patient.[facility] HospitalIn the event this information is protected by the Federal Confidentiality of Alcohol and Drug Abuse Patient Records regulations: The Federal rules restrict any use of the information to criminally investigate or prosecute any alcohol or drug abuse patient.[facility] HospitalIn the event this information is protected by the Federal Confidentiality of Alcohol and Drug Abuse Patient Records regulations: The Federal rules restrict any use of the information to criminally investigate or prosecute any alcohol or drug abuse patient.[facility] HospitalIn the event this information is protected by the Federal Confidentiality of Alcohol and Drug Abuse Patient Records regulations: The Federal rules restrict any use of the information to criminally investigate or prosecute any alcohol or drug abuse patient.[facility] HospitalIn the event this information is protected by the Federal Confidentiality of Alcohol and Drug Abuse Patient Records regulations: The Federal rules restrict any use of the information to criminally investigate or prosecute any alcohol or drug abuse patient.[facility] HospitalIn the event this information is protected by the Federal Confidentiality of Alcohol and Drug Abuse Patient Records regulations: The Federal rules restrict any use of the information to criminally investigate or prosecute any alcohol or drug abuse patient.[facility] HospitalIn the event this information is protected by the Federal Confidentiality of Alcohol and Drug Abuse Patient Records regulations: The Federal rules restrict any use of the information to criminally investigate or prosecute any alcohol or drug abuse patient.[facility] HospitalIn the event this information is protected by the Federal Confidentiality of Alcohol and Drug Abuse Patient Records regulations: The Federal rules restrict any use of the information to criminally investigate or prosecute any alcohol or drug abuse patient.[facility] HospitalIn the event this information is protected by the Federal Confidentiality of Alcohol and Drug Abuse Patient Records regulations: The Federal rules restrict any use of the information to criminally investigate or prosecute any alcohol or drug abuse patient.[facility] HospitalIn the event this information is protected by the Federal Confidentiality of Alcohol and Drug Abuse Patient Records regulations: The Federal rules restrict any use of the information to criminally investigate or prosecute any alcohol or drug abuse patient.[facility] HospitalIn the event this information is protected by the Federal Confidentiality of Alcohol and Drug Abuse Patient Records regulations: The Federal rules restrict any use of the information to criminally investigate or prosecute any alcohol or drug abuse patient.[facility] HospitalIn the event this information is protected by the Federal Confidentiality of Alcohol and Drug Abuse Patient Records regulations: The Federal rules restrict any use of the information to criminally investigate or prosecute any alcohol or drug abuse patient.[facility] HospitalIn the event this information is protected by the Federal Confidentiality of Alcohol and Drug Abuse Patient Records regulations: The Federal rules restrict any use of the information to criminally investigate or prosecute any alcohol or drug abuse patient.[facility] HospitalIn the event this information is protected by the Federal Confidentiality of Alcohol and Drug Abuse Patient Records regulations: The Federal rules restrict any use of the information to criminally investigate or prosecute any alcohol or drug abuse patient.[facility] HospitalIn the event this information is protected by the Federal Confidentiality of Alcohol and Drug Abuse Patient Records regulations: The Federal rules restrict any use of the information to criminally investigate or prosecute any alcohol or drug abuse patient.[facility] HospitalIn the event this information is protected by the Federal Confidentiality of Alcohol and Drug Abuse Patient Records regulations: The Federal rules restrict any use of the information to criminally investigate or prosecute any alcohol or drug abuse patient.[facility] HospitalIn the event this information is protected by the Federal Confidentiality of Alcohol and Drug Abuse Patient Records regulations: The Federal rules restrict any use of the information to criminally investigate or prosecute any alcohol or drug abuse patient.[facility] HospitalIn the event this information is protected by the Federal Confidentiality of Alcohol and Drug Abuse Patient Records regulations: The Federal rules restrict any use of the information to criminally investigate or prosecute any alcohol or drug abuse patient.[facility] HospitalIn the event this information is protected by the Federal Confidentiality of Alcohol and Drug Abuse Patient Records regulations: The Federal rules restrict any use of the information to criminally investigate or prosecute any alcohol or drug abuse patient.[facility] HospitalIn the event this information is protected by the Federal Confidentiality of Alcohol and Drug Abuse Patient Records regulations: The Federal rules restrict any use of the information to criminally investigate or prosecute any alcohol or drug abuse patient.[facility] HospitalIn the event this information is protected by the Federal Confidentiality of Alcohol and Drug Abuse Patient Records regulations: The Federal rules restrict any use of the information to criminally investigate or prosecute any alcohol or drug abuse patient.[facility] HospitalIn the event this information is protected by the Federal Confidentiality of Alcohol and Drug Abuse Patient Records regulations: The Federal rules restrict any use of the information to criminally investigate or prosecute any alcohol or drug abuse patient.[facility] HospitalIn the event this information is protected by the Federal Confidentiality of Alcohol and Drug Abuse Patient Records regulations: The Federal rules restrict any use of the information to criminally investigate or prosecute any alcohol or drug abuse patient.[facility] HospitalIn the event this information is protected by the Federal Confidentiality of Alcohol and Drug Abuse Patient Records regulations: The Federal rules restrict any use of the information to criminally investigate or prosecute any alcohol or drug abuse patient.[facility] HospitalIn the event this information is protected by the Federal Confidentiality of Alcohol and Drug Abuse Patient Records regulations: The Federal rules restrict any use of the information to criminally investigate or prosecute any alcohol or drug abuse patient.[facility] HospitalIn the event this information is protected by the Federal Confidentiality of Alcohol and Drug Abuse Patient Records regulations: The Federal rules restrict any use of the information to criminally investigate or prosecute any alcohol or drug abuse patient.[facility] HospitalIn the event this information is protected by the Federal Confidentiality of Alcohol and Drug Abuse Patient Records regulations: The Federal rules restrict any use of the information to criminally investigate or prosecute any alcohol or drug abuse patient.[facility] HospitalIn the event this information is protected by the Federal Confidentiality of Alcohol and Drug Abuse Patient Records regulations: The Federal rules restrict any use of the information to criminally investigate or prosecute any alcohol or drug abuse patient.[facility] HospitalIn the event this information is protected by the Federal Confidentiality of Alcohol and Drug Abuse Patient Records regulations: The Federal rules restrict any use of the information to criminally investigate or prosecute any alcohol or drug abuse patient.[facility] HospitalIn the event this information is protected by the Federal Confidentiality of Alcohol and Drug Abuse Patient Records regulations: The Federal rules restrict any use of the information to criminally investigate or prosecute any alcohol or drug abuse patient.[facility] HospitalIn the event this information is protected by the Federal Confidentiality of Alcohol and Drug Abuse Patient Records regulations: The Federal rules restrict any use of the information to criminally investigate or prosecute any alcohol or drug abuse patient.[facility] HospitalIn the event this information is protected by the Federal Confidentiality of Alcohol and Drug Abuse Patient Records regulations: The Federal rules restrict any use of the information to criminally investigate or prosecute any alcohol or drug abuse patient.[facility] HospitalIn the event this information is protected by the Federal Confidentiality of Alcohol and Drug Abuse Patient Records regulations: The Federal rules restrict any use of the information to criminally investigate or prosecute any alcohol or drug abuse patient.[facility] HospitalIn the event this information is protected by the Federal Confidentiality of Alcohol and Drug Abuse Patient Records regulations: The Federal rules restrict any use of the information to criminally investigate or prosecute any alcohol or drug abuse patient.[facility] HospitalIn the event this information is protected by the Federal Confidentiality of Alcohol and Drug Abuse Patient Records regulations: The Federal rules restrict any use of the information to criminally investigate or prosecute any alcohol or drug abuse patient.[facility] HospitalIn the event this information is protected by the Federal Confidentiality of Alcohol and Drug Abuse Patient Records regulations: The Federal rules restrict any use of the information to criminally investigate or prosecute any alcohol or drug abuse patient.[facility] HospitalIn the event this information is protected by the Federal Confidentiality of Alcohol and Drug Abuse Patient Records regulations: The Federal rules restrict any use of the information to criminally investigate or prosecute any alcohol or drug abuse patient.[facility] HospitalIn the event this information is protected by the Federal Confidentiality of Alcohol and Drug Abuse Patient Records regulations: The Federal rules restrict any use of the information to criminally investigate or prosecute any alcohol or drug abuse patient.[facility] HospitalIn the event this information is protected by the Federal Confidentiality of Alcohol and Drug Abuse Patient Records regulations: The Federal rules restrict any use of the information to criminally investigate or prosecute any alcohol or drug abuse patient.[facility] HospitalIn the event this information is protected by the Federal Confidentiality of Alcohol and Drug Abuse Patient Records regulations: The Federal rules restrict any use of the information to criminally investigate or prosecute any alcohol or drug abuse patient.[facility] HospitalIn the event this information is protected by the Federal Confidentiality of Alcohol and Drug Abuse Patient Records regulations: The Federal rules restrict any use of the information to criminally investigate or prosecute any alcohol or drug abuse patient.[facility] HospitalIn the event this information is protected by the Federal Confidentiality of Alcohol and Drug Abuse Patient Records regulations: The Federal rules restrict any use of the information to criminally investigate or prosecute any alcohol or drug abuse patient.[facility] HospitalIn the event this information is protected by the Federal Confidentiality of Alcohol and Drug Abuse Patient Records regulations: The Federal rules restrict any use of the information to criminally investigate or prosecute any alcohol or drug abuse patient.[facility] HospitalIn the event this information is protected by the Federal Confidentiality of Alcohol and Drug Abuse Patient Records regulations: The Federal rules restrict any use of the information to criminally investigate or prosecute any alcohol or drug abuse patient.[facility] HospitalIn the event this information is protected by the Federal Confidentiality of Alcohol and Drug Abuse Patient Records regulations: The Federal rules restrict any use of the information to criminally investigate or prosecute any alcohol or drug abuse patient.[facility] HospitalIn the event this information is protected by the Federal Confidentiality of Alcohol and Drug Abuse Patient Records regulations: The Federal rules restrict any use of the information to criminally investigate or prosecute any alcohol or drug abuse patient.[facility] HospitalIn the event this information is protected by the Federal Confidentiality of Alcohol and Drug Abuse Patient Records regulations: The Federal rules restrict any use of the information to criminally investigate or prosecute any alcohol or drug abuse patient.[facility] HospitalIn the event this information is protected by the Federal Confidentiality of Alcohol and Drug Abuse Patient Records regulations: The Federal rules restrict any use of the information to criminally investigate or prosecute any alcohol or drug abuse patient.[facility] HospitalIn the event this information is protected by the Federal Confidentiality of Alcohol and Drug Abuse Patient Records regulations: The Federal rules restrict any use of the information to criminally investigate or prosecute any alcohol or drug abuse patient.[facility] Reason for Visit (unrecogniz ed section and content) Reason Comments ? ACID REFLUX burning sensation in throat after eating, throw up in my mouth, but all acid, mucus build up in my chest that will gag me when it comes up. Onset times 1 month. 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 Reason Comments Nausea sob, fever x [...] x4 days Reason Comments Well Child 17yr [facility] Reason Comments Orders Reason Comments Radiology US Specialty Diagnoses / Procedures Referred By Contac t Referred To Contact [facility] Diagnoses Pelvic pain in female Procedures US FEMALE PELVIS TRANSVAG US TRANSVAGINAL Delfina Watson APRN.CN [address] [place] [address] [place] [id number] Referral ID Status Reason Start Date Expiration Date V isits Requested Visits Authorized [id number] Closed Auto-Generate d Referral 05/03/2023 06/01/2024 1 [...] Referred To Contact [facility] Diagnoses Encounter for care in first trimester of first 7 weeks gestation of Procedures NUCHAL TRANSLUCENCY WHI US NUCHAL TRANSLUCENCY 1ST GESTATION Nilda Stiles APRN.HAY SORTER [address] [place] [address] [facility] [address] [place] [id number] Referral ID Status Reason Start Date Expiration Date V isits Requested Visits Authorized [id number] Closed Auto-Generate d Referral 02/21/2024 02/20/2025 1 1 Reason Onset Date Comments Refill Request 04/10/2024 Reason Onset Date Comments Care 04/27/2024 Reason Comments Question (OB Question) Reason Onset Date Comments Care 05/25/2024 Specialty Diagnoses / Procedures Referred By Contac t Referred To Contact [facility] Diagnoses Supervision of normal first teen in first trimester 13 weeks gestation of Obesity in Procedures OBSTETRIC ULTRASOUND WHI US PREG UTERUS AFTER 1ST TRIMEST 1 GESTATION Delfina Watson APRN.CNM [address] [place] [address] Phone: tel: fax: [address] [address] Referral ID Status Reason Start Date Expiration Date V isits Requested Visits Authorized [id number] Closed Auto-Generate d Referral 04/03/2024 04/03/2025 1 [...] Care Teams (unrecognized sec tion and content) Psychiatry Physician Relationship Specialty Start Date End Date Que Chavez MD [address] [place] [address] PCP - General Pediatrics 01/19/17 Psychiatry Physician Relationship Specialty Start Date End Date Que Chavez MD [address] [place] [address] PCP - General Pediatrics 01/19/17 Psychiatry Physician Relationship Specialty Start Date End Date Que Chavez MD [address] [place] [address] PCP - General Pediatrics 01/19/17 Psychiatry Physician Relationship Specialty Start Date End Date Que Chavez MD [address] [place] [address] PCP - General Pediatrics 01/19/17 Psychiatry Physician Relationship Specialty Start Date End Date Que Chavez MD [address] [place] [address] [place] [address] PCP - General Pediatrics 01/19/17 Psychiatry Physician Relationship Specialty Start Date End Date Que Chavez MD [address] [place] [address] PCP - General Pediatrics 01/19/17 Psychiatry Physician Relationship Specialty Start Date End Date Que Chavez MD [address] [place] [address] PCP - General Pediatrics 01/19/17 Psychiatry Physician Relationship Specialty Start Date End Date Que Chavez MD [address] [place] [address] PCP - General Pediatrics 01/19/17 Psychiatry Physician Relationship Specialty Start Date End Date Que Chavez MD [address] [place] [address] PCP - General Pediatrics 01/19/17 Psychiatry Physician Relationship Specialty Start Date End Date Que Chavez MD [address] [place] [address] PCP - General Pediatrics 01/19/17 Psychiatry Physician Relationship Specialty Start Date End Date Que Chavez MD [address] [place] [address] PCP - General Pediatrics 01/19/17 Psychiatry Physician Relationship Specialty Start Date End Date Que Chavez MD [address] [place] [address] PCP - General Pediatrics 01/19/17 Psychiatry Physician Relationship Specialty Start Date End Date Que Chavez MD [address] [place] [address] PCP - General Pediatrics 01/19/17 Psychiatry Physician Relationship Specialty Start Date End Date Que Chavez MD [address] [place] [address] PCP - General Pediatrics 01/19/17 Psychiatry Physician Relationship Specialty Start Date End Date Que Chavez MD [address] [place] [address] PCP - General Pediatrics 01/19/17 Psychiatry Physician Relationship Specialty Start Date End Date Que Chavez MD [address] [place] [address] PCP - General Pediatrics 01/19/17 Psychiatry Physician Relationship Specialty Start Date End Date Que Chavez MD [address] [place] [address] PCP - General Pediatrics 01/19/17 Psychiatry Physician Relationship Specialty Start Date End Date Que Chavez MD [address] [place] [address] PCP - General Pediatrics 01/19/17 Psychiatry Physician Relationship Specialty Start Date End Date Que Chavez MD [address] [place] [address] PCP - General Pediatrics 01/19/17 Psychiatry Physician Relationship Specialty Start Date End Date Que Chavez MD [address] [place] [address] PCP - General Pediatrics 01/19/17 Psychiatry Physician Relationship Specialty Start Date End Date Que Chavez MD [address] [place] [address] PCP - General Pediatrics 01/19/17 Psychiatry Physician Relationship Specialty Start Date End Date Que Chavez MD [address] [place] [address] PCP - General Pediatrics 01/19/17 Psychiatry Physician Relationship Specialty Start Date End Date Que Chavez MD [address] [place] [address] PCP - General Pediatrics 01/19/17 Psychiatry Physician Relationship Specialty Start Date End Date Que Chavez MD [address] [place] [address] PCP - General Pediatrics 01/19/17 Psychiatry Physician Relationship Specialty Start Date End Date Que Chavez MD [address] [place] [address] PCP - General Pediatrics 01/19/17 Psychiatry Physician Relationship Specialty Start Date End Date Que Chavez MD [address] [place] [address] PCP - General Pediatrics 01/19/17 Psychiatry Physician Relationship Specialty Start Date End Date Ruiz Vega DO [address] [place] [address] PCP - General Family Medicine 08/13/24 Psychiatry Physician Relationship Specialty Start Date End Date Ruiz Vega DO [address] [place] [address] PCP - General Family Medicine 08/13/24 Maria Alejandra Morel, ACID MIXER.HAY SORTER [address] [place] [address] Assessment Expert Family Medicine 08/16/24 Psychiatry Physician Relationship Specialty Start Date End Date Ruiz Vega DO [address] [place] [address] PCP - General Family Medicine 08/13/24 Maria Alejandra Morel, ACID MIXER.HAY SORTER [address] [place] [address] Assessment Expert Family Medicine 08/16/24 Sheri Harrison, ACID MIXER.HAY SORTER [address] [facility] [place] [address] Assessment Expert Family Medicine 08/20/24 Team Status: Active Member Role/Relationship Status Dates Dr. Ruiz Vega DO Primary Care Provider Active Team Status: Inactive Member Role/Relationship Status Dates Dr. Ruiz Vega DO Primary Care Provider Active Start: September 04, 2024 End: September 04, 2024 Dr. Conrado Richardson MD Emergency Provider Active S tart: September 04, 2024 End: September 04, 2024 Psychiatry Physician Relationship Specialty Start Date End Date Ruiz Vega DO [address] [place] [address] PCP - General Family Medicine 08/13/24 Maria Alejandra Morel, ACID MIXER.HAY SORTER [address] [place] [address] [facility] 08/16/24 Sheri Harrison, ACID MIXER.HAY SORTER [address] [place] [address] [facility] 08/20/24 Psychiatry Physician Relationship Specialty Start Date End Date Ruiz Vega DO [address] [place] [address] PCP - General Family Medicine 08/13/24 AdrielMaria Alejandra, ACID MIXER.HAY SORTER [address] [place] [address] Assessment Expert Family Medicine 08/16/24 Sheri Harrison, ACID MIXER.HAY SORTER [address] [place] [address] Assessment Expert Family Medicine 08/20/24 Psychiatry Physician Relationship Specialty Start Date End Date Ruiz Vega DO [address] [place] [address] PCP - General Family Medicine 08/13/24 Maria Alejandra Morel, ACID MIXER.HAY SORTER [address] [place] [address] Assessment Expert Family Medicine 08/16/24 Sheri Harrison APRN.HAY SORTER [address] [place] [address] Assessment Expert Family Medicine 08/20/24 Psychiatry Physician Relationship Specialty Start Date End Date Ruiz Vega DO [address] [place] [address] PCP - General Family Medicine 08/13/24 Maria Alejandra Morel, ACID MIXER.HAY SORTER [address] [place] [address] Assessment Expert Family Medicine 08/16/24 Sheri Harrison ACID MIXER.HAY SORTER [address] [place] [address] Assessment Expert Family Medicine 08/20/24 Psychiatry Physician Relationship Specialty Start Date End Date Ruiz Vega DO [address] [place] [address] PCP - General Family Medicine 08/13/24 Maria Alejandra Morel, ACID MIXER.HAY SORTER [address] [place] [address] Assessment Expert Family Medicine 08/16/24 Sheri Harrison, ACID MIXER.HAY SORTER [address] [place] [address] Assessment Expert Family Medicine 08/20/24 Psychiatry Physician Relationship Specialty Start Date End Date Ruiz Vega DO [address] [place] [address] PCP - General Family Medicine 08/13/24 Maria Alejandra Morel, ACID MIXER.HAY SORTER [address] [place] [address] Assessment Expert Family Medicine 08/16/24 Sheri Harrison, ACID MIXER.HAY SORTER [address] [place] [address] Assessment Expert Family Medicine 08/20/24 Psychiatry Physician Relationship Specialty Start Date End Date Ruiz Vega DO [address] [place] [address] PCP - General Family Medicine 08/13/24 Maria Alejandra Morel, ACID MIXER.HAY SORTER [address] [place] [address] Assessment Expert Family Medicine 08/16/24 Sheri Harrison, ACID MIXER.HAY SORTER [address] [place] [address] Assessment Expert Family Medicine 08/20/24 Psychiatry Physician Relationship Specialty Start Date End Date Ruiz Vega DO [address] [place] [address] PCP - General Family Medicine 08/13/24 Maria Alejandra Morel, ACID MIXER.HAY SORTER [address] [place], [place] [address] [facility] 08/16/24 Hunter Sherisusannah Cooper, ACID MIXER.HAY SORTER [address] [place] [address] [facility] 08/20/24 Team Status: Inactive Member Role/Relationship [...] section and content) DATE CREATED AUTHOR 10/08/2024 [facility] DATE CREATED AUTHOR AUTHOR'S TYRONE ATLILLIAN 10/11/2024 [place] FOR RECORDS PERTAINING TO PATIENTS WHO ARE [...] BE BASED ON THE PRIMARY CLINICAL RECORDS. [employer] provides no warranty or guarantee of the accuracy or completeness of information in this document.
--- OUTSIDE RECORDS SUMMARY | 2024-10-13 08:53 | XMS RPT_ITS | CCD ---
Author Organization [facility] Care Team Providers Care Inside B2B Sales Name Role Phone Que Chavez MD Primary Care Provider Unavailable Primary Care Provider Unavailbelkis e Ruiz Vega DO Primary Care Provider [facility] FACTORY MAINTENANCE MANAGER.Maria Alejandra ALVES Unavailable [phone] [facility] FACTORY MAINTENANCE MANAGER.Sheri ALVES Unavailable Dr. Ruiz Vega DO Primary Care Provider Dylan MUIR, Dr. Camp Emergency Provider [place] Admitting Unavailable Vega, Ruiz Primary Care Unavailable La Del Castillo Referring Unavailable La [place] Attending Unavailable Ruiz Vega Primary Care Unavailable Conrado Richardson Attending Unavailable Scott, Que Primary Care Unavailable Mj Lloyd Referring Unavailable jM Lloyd Attending Unavailable Antwon Miranda Attending Unavailable [...] Unavailable Dylan MUIR, Dr. Camp Attending Provider [phone] Delfina Watson CNM Attending Provider Allergies Allergy Classification Reported Allergen(s) Allergy Type Date of Onset Reaction(s) Facility (20 sources) Seasonal allergy; Translations: [SEASONAL ALLERGIES] Propensity to adverse reactions 8 Other: See Comments [facility] Medications Current Medications Medication Drug Class(es) Dates Sig (Normalized) Sig (Original) [id number] 200 actuat albuterol 0.09 mg/actuat metered dose [...] (FLONASE) 50 mcg/actuation nasal spray Use 1 [place] in each nostril once daily. 1 Each 3 07/29/2023 02/21/2024 Discontinued Comment on above: Use 1 [place] in each nostril once daily. Inhalational Spacing [...] 5 days. 15 tablet 10/31/2023 11/05/2023 Active Orpmar89-Nphn Fum-Folic Ac-Om3 (One A Day Women's Dha) 28 mg iron- 800 mcg combo pack (2 sources) Start: 02-24-2024 Nztgfh89-Rzqc Fum-Folic Ac-Om3 (One A Day Women's Dha) 28 mg iron- 800 mcg combo pack Active 1 NMA PO February 24, 2024 1:00am Start: 02-24-2024 Vtxtoo04-Wisu Fum-Folic Ac-Om3 (One A Day Women's Dha) 28 mg iron- 800 mcg combo pack Active NMA PO February 24, 2024 1:00am Lhqyrwxr-Fw-Mig-Fe-FA tab (20 sources) Start: 04-27-2024 take 1 tablet by mouth once daily Xkouuefq-Oo-Iyy-Fe-FA tab Take 1 tablet by mouth once daily. With folic acid and DHA as covered by insurance. 90 tablet 3 04/27/2024 Active Start: 04-27-2024 End: 07-26-2024 take 1 tablet by mouth once daily Sflgnapt-Kq-Ncg-Fe-FA tab Take 1 tablet by mouth once [...] 08/25/2023 10/31/2023 Discontinued 168 hr ethinyl estradiol 0.94910 mg/hr / norelgestromin 0.42673 mg/hr transdermal system (2 sources) Progestin, Estrogen [...] take 1 capsule by mouth once daily L.acid,gjptk-wcvzef-m actoferr (CLAIRVEE) 5 billion cell- 400 mcg DFE cpDR Take 1 capsule by mouth once daily. For 15 days out of the month. 10/31/2023 Discontinued take 1 capsule by mo uth once daily L.acid,ursit-otiawg-qrwficxwb (CLAIRVEE) 5 billion cell- 400 mcg DFE cpDR Take 1 capsule by mouth once daily. For 15 days out of the month. Active take 1 capsule by mo uth once daily L.acid,zrbmy-ifkkvk-sbuizjeik (CLAIRVEE) 5 billion cell- 400 mcg DFE [...] REFRIGERATED 30 capsule 11 07/29/2023 Active Lacto No.49-Ouwyly-Pcx-Larch 25B cell-25B cell-50 mg capsule (2 sources) Start: 10-04-2023 End: 10-12-2024 Lacto No.19-Twiiyk-Xiw-Larch 25B cell-25B cell-50 mg capsule Discontinued NMA PO October 04, 2023 12:00am October 12, 2024 11:37pm Start: 10-04-2023 Lacto No.76-Bi fkbg-Jvx-Jmtwh 25B cell-25B cell-50 mg capsule Active NMA [...] Comment on above: Take 1 tablet by [facility] twice daily for 7 days. naproxen [...] Translations: [Vaginal discharge during in third trimester (FORMERLY [facility])] Onset: 5 Episodic Other gastrointestinal disorders (1 source) Heartburn; Translations: [Heartburn during in third trimester (FORMERLY [facility])] Onset: Episodic Other inflammatory condition of skin [...] Ql (U) Negative Neg mg/dL [facility] Interpretation and review of laboratory results Normal [facility] Protein.monoclonal (U) [Mass/Vol] Negative Neg mg/dL [facility] URINE OB DIP B/Oon 5 Glucose Ql (U) Negative Neg mg/dL [facility] Protein.monoclonal (U) [Mass/Vol] Negative Neg mg/dL [facility] URINE OB DIP B/Oon 5 Glucose Ql (U) Negative Neg mg/dL [facility] Interpretation and review of laboratory results Normal [facility] Protein.monoclonal (U) [Mass/Vol] Negative Neg mg/dL [facility] ROUTINE, GROUP B ST REPTOCOCCUS BY PCRon 09-12-2024 ROUTINE, GROUP B STREPTOCOCCUS BY PCR Detected Abnormal [facility] Comment on above: Performed By: #### G BPCR ####[facility] LABCLIA [id number] [place] [address] [place] [facility] URINE OB DIP B/Oon 5 Glucose Ql (U) Negative Neg mg/dL [facility] Protein.monoclonal (U) [Mass/Vol] trace Neg mg/dL [facility] 12 Lead EKGon 09-04-2024 12 Lead EKG [facility] Cardiovascular Services [address] [place] [address] 12 Lead EKG 09/04/24 1024 MR#: [id number] Acct: [id number] Name: AMIRAH WOODARD Rep #: [id number] : 2005 19 From: Flo Smith MD [...] Abnormal ECG Confirmed by FLO SMITH MD ([id number]), acquisitions editor KAREN WATERS ([id number]) on 09/05/2024 1:39:37 PM Referred By: Confirmed By: FLO SMITH MD 09/05/24 1339 Date Flo Smith MD CC: Dr. Conrado Richardson MD; Dr. Ruiz Vega DO Signed Normal [facility] Absolute lymphocyte countOrd ered By: Conrado Richardson on 09-04-2024 Lymphocytes Auto (Unsp spec) [#/Vol] 1.97 10*3/uL 0.83-4.51 [facility] Absolute neutrophil countOrd ered By: Conrado Richardson on 09-04-2024 Neutrophils (Bld) [#/Vol] 8.4 10*3/uL High 2.0-7.7 [facility] Anion gap in Serum or Plasma Ordered By: Conrado Richardson on 09-04-2024 Anion gap [Moles/Vol] 11 mmol/L 5-15 [facility] Automated lymphocyte count a s percentage of total leukocytesOrdered By: Conrado Richardson on 09-04-2024 Lymphocytes/100 WBC Auto (Unsp spec) 16.7 % Low 19-41 [facility] BUN/creatinine ratioOrdered By: Conrado Richardson on 09-04-2024 Urea nitrogen/Creatinine [Mass ratio] 15.7 mg/mg 10- [facility] Basic Metabolic Profile (BMP )on 09-04-2024 BUN/CRE 15.7 RATIO Normal - [facility] Comment on above: Performed By: #### L 100.0100, L500.2500, L501.4021 #### [facility] [address] [place], [address] Calcium [Mass/Vol] 8.7 mg/dL Normal 7.6-11.0 [facility] Comment on above: Performed By: #### L 100.0100, L500.2500, L501.4021 #### [facility] [address] [place], [address] Chloride [Moles/Vol] 105 mmol/L Normal 98-108 [facility] Comment on above: Performed By: #### L 100.0100, L500.2500, L501.4021 #### [facility] [address] [place], [address] CO2 [Moles/Vol] 20.3 mmol/L Low 21.0-32.0 [facility] Comment on above: Performed By: #### L 100.0100, L500.2500, L501.4021 #### [facility] [address] [place], [address] Creatinine [Mass/Vol] 0.45 mg/dL Low 0.70-1.20 [facility] Comment on above: Performed By: #### L 100.0100, L500.2500, L501.4021 #### [facility] [address] [place], [address] ECRCL 226.86 ml/min Normal 50-250 [facility] Comment on above: Performed By: #### L 100.0100, L500.2500, L501.4021 #### [facility] [address] [place], [address] GAP 11 Normal 5-15 [facility] Comment on above: Performed By: #### L 100.0100, L500.2500, L501.4021 #### [facility] [address] [place], [address] GFR/1.73 sq M.predicted among non-blacks MDRD (S/P/Bld) [Vol rate/Area] 141 mL/min/{1.73_m2} Normal >60 [facility] Comment on above: Result Comment: mL/m in/1.73m2 CKD-EPI Creatinine Equation (2020) Performed By: #### L 100.0100, L500.2500, L501.4021 #### [facility] [address] [place], [address] Glucose [Mass/Vol] 91 mg/dL Normal 70-99 [facility] Comment on above: Performed By: #### L 100.0100, L500.2500, L501.4021 #### [facility] [address] [place], [address] Potassium [Moles/Vol] 3.8 mmol/L Normal 3.3-5.1 [facility] Comment on above: Performed By: #### L 100.0100, L500.2500, L501.4021 #### [facility] [address] [place], [address] Sodium [Moles/Vol] 137 mmol/L Normal 133-145 [facility] Comment on above: Performed By: #### L 100.0100, L500.2500, L501.4021 #### [facility] [address] [place], [address] Urea nitrogen [Mass/Vol] 7 mg/dL Normal 4-19 [facility] Comment on above: Performed By: #### L 100.0100, L500.2500, L501.4021 #### [facility] [address] [place], [address] Basophil percentageOrdered B y: Conrado Richardson on 09-04-2024 Basophils/100 WBC (Bld) 0.5 % 0-1 [facility] CBC W/Diff, Automatedon Absolute Lymph 1.97 X10 3/uL Normal 0.83-4.51 [facility] Comment on above: Performed By: #### L 100.0100, L500.2500, L501.4021 #### [facility] [address] [place], [address] Absolute Neut 8.4 X10 3/uL High 2.0-7.7 [facility] Comment on above: Performed By: #### L 100.0100, L500.2500, L501.4021 #### [facility] [address] [place], [address] Basophils/100 WBC (Bld) 0.5 % Normal 0-1 [facility] Comment on above: Performed By: #### L 100.0100, L500.2500, L501.4021 #### [facility] [address] [place], [address] Eosinophils/100 WBC (Bld) 2.2 % Normal 0-5 [facility] Comment on above: Performed By: #### L 100.0100, L500.2500, L501.4021 #### [facility] [address] [place], [address] Erythrocyte distribution width (RBC) [Ratio] 13.2 % Normal 11.6-14.6 [facility] Comment on above: Performed By: #### L 100.0100, L500.2500, L501.4021 #### [facility] [address] [place], [address] Hematocrit (Bld) [Volume fraction] 35.4 % Low 37-47 [facility] Comment on above: Performed By: #### L 100.0100, L500.2500, L501.4021 #### [facility] [address] [place], [address] Hemoglobin (Bld) [Mass/Vol] 11.6 g/dL Low 12.0-15.0 [facility] Comment on above: Performed By: #### L 100.0100, L500.2500, L501.4021 #### [facility] [address] [place], [address] IG% 1.200 High 0.0-0.9 [facility] Comment on above: Result Comment: IG% - Immature Granulocytes (promyelocytes, myelocytes and metamyelocytes) > 1% indicates that a LEFT SHIFT is Present. Performed By: #### L 100.0100, L500.2500, L501.4021 #### [facility] [address] [place], [address] Lymphocytes/100 WBC (Bld) 16.7 % Low 19-41 [facility] Comment on above: Performed By: #### L 100.0100, L500.2500, L501.4021 #### [facility] [address] [place], [address] MCH (RBC) [Entitic mass] 27.5 pg Normal 27.0-32.0 [facility] Comment on above: Performed By: #### L 100.0100, L500.2500, L501.4021 #### [facility] [address] [place], [address] MCHC (RBC) [Mass/Vol] 32.8 g/dL Normal 32-36 [facility] Comment on above: Performed By: #### L 100.0100, L500.2500, L501.4021 #### [facility] [address] [place], [address] MCV (RBC) [Entitic vol] 83.9 fL Normal 81-99 [facility] Comment on above: Performed By: #### L 100.0100, L500.2500, L501.4021 #### [facility] [address] [place], [address] Monocytes/100 WBC (Bld) 8.8 % Normal 0-10 [facility] Comment on above: Performed By: #### L 100.0100, L500.2500, L501.4021 #### [facility] [address] [place], [address] Neutrophils/100 WBC (Bld) 70.6 % High 47-70 [facility] Comment on above: Performed By: #### L 100.0100, L500.2500, L501.4021 #### [facility] [address] [place], [address] Nucleated RBC (Bld) [#/Vol] 0 10*3/uL Normal 0-5 [facility] Comment on above: Performed By: #### L 100.0100, L500.2500, L501.4021 #### [facility] [address] [place], [address] Platelet mean volume (Bld) [Entitic vol] 9.4 fL Normal 6.2-12.0 [facility] Comment on above: Performed By: #### L 100.0100, L500.2500, L501.4021 #### [facility] [address] [place], [address] Platelets (Bld) [#/Vol] 256 10*3/uL Normal 150-450 [facility] Comment on above: Performed By: #### L 100.0100, L500.2500, L501.4021 #### [facility] [address] [place], [address] RBC (Bld) [#/Vol] 4.22 10*6/uL Normal 4.2-5.4 [facility] Comment on above: Performed By: #### L 100.0100, L500.2500, L501.4021 #### [facility] [address] [place], [address] RDW SD 40.2 fl Normal 35.1-43.9 [facility] Comment on above: Performed By: #### L 100.0100, L500.2500, L501.4021 #### [facility] [address] [place], [address] WBC (Bld) [#/Vol] 11.8 10*3/uL High 4.4-11.0 [facility] Comment on above: Performed By: #### L 100.0100, L500.2500, L501.4021 #### [facility] [address] [place], [address] Rodrick 09-04-2024 JOSELYNN Telephone (OBGYWM) AMIRAH WOODARD ([id number]) 3 F Date Time Provider Department 09/04/24 [...] sprays in each nostril once daily. - Xseuabnt-Ud-Soa-Fe-FA tab Take 1 tablet by mouth once [...] Status:Closed by KIA BRASHER on 09/04/24 Normal [facility] CTA Chest W/WO Contraston CTA Chest W/WO Contrast [facility] Imaging Services [address] [place] [address] CTA Chest W/WO Contrast MR#: [id number] Acct: [id number] Name: AMIRAH WOODARD Rep #: [id number] : 2005 F 19 From: Gurjit Moreno MD PCP: Dr. Ruiz Vega, DO Status: REG ER Study: CTA Chest W/WO Contrast Date of Exam: 09/04/24 Exam# [id number] Ordering Dr: Conrado Richardson MD PROCEDURE: CTA [...] dissection No acute pulmonary process Reading Location: [id number] CC: Dr. Conrado Richardson MD; Dr. Ruiz Vega DO Director [employer]: Signed Normal [facility] Carbon dioxide, total [Moles /volume] in Central venous bloodOrdered By: Conrado Richardson on 09-04-2024 CO2 [Moles/Vol] 20.3 mmol/L Low 21.0-32.0 [facility] Chloride assayOrdered By: Wilson Richardson on 09-04-2024 Chloride [Moles/Vol] 105 mmol/L 98-108 [facility] Emergency Department Summary on 09-04-2024 Emergency Department Summary [facility] Medical Records Department [address] [place] [address] Emergency Department Summary 09/04/24 MR#: [id number] Acct: [id number] Name: AMIRAH WOODARD Rep #: [id number] : 2005 19 From: Conrado Richardson MD [...] discomfort that was diffuse. Lightheadedness. 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 Adrienne Marin. Who [...] Factors: Negative for Marfan's Syndrome or Hypertension [facility] Medical History Left ankle pain Home Medications ???Medication ???Instructions ???Recorded ???Last Taken ???Type Lactobacillus 25 billion cap PO 10/04/23 Unknown History cell-Bifido 25 billion rjim-RJV-lkctp capsule albuterol sulfate 90 mcg/actuation inhalation 10/04/23 [...] the ankles bilaterally. Dorsi plantarflexion intact. 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 Normal radial pulses. Back nontender. Neurologically [...] for ob (more content not included)... Normal [facility] Eosinophil percentageOrdered By: Conrado Richardson on 09-04-2024 Eosinophils/100 WBC (Bld) 2.2 % 0-5 [facility] Erythrocyte distribution wid th ratioOrdered By: Conrado Richardson on 09-04-2024 Erythrocyte distribution width (RBC) [Ratio] 13.2 % 11.6-14.6 [facility] Erythrocyte distribution wid th standard deviationOrdered By: Conrado Richardson on 09-04-2024 Erythrocyte distribution width (RBC) [Ratio] 40.2 fl 35.1-43.9 [facility] Glomerular filtration rate ( GFR) estimation/1.73 sq m using serum, plasma, or whole bOrdered By: Conrado Richardson on 09-04-2024 GFR/1.73 sq M.predicted among non-blacks MDRD (S/P/Bld) [Vol rate/Area] 141 mL/min/{1.73_m2} >60 [facility] Comment on above: mL/min/1.73m2 CKD-EP I Creatinine Equation (2020) Hematocrit Auto (Bld) [Volum e fraction]Ordered By: Conrado Richardson on 09-04-2024 Hematocrit (Bld) [Volume fraction] 35.4 % Low 37-47 [facility] Hemoglobin measurementOrdere d By: Conrado Richardson on 09-04-2024 Hemoglobin (Bld) [Mass/Vol] 11.6 g/dL Low 12.0-15.0 [facility] Immature granulocytes/100 WB C Auto (Bld)Ordered By: Conrado Richardson on 09-04-2024 Immature granulocytes/100 WBC (Bld) 1.200 % High 0.0-0.9 [facility] Comment on above: IG% - Immature Granu locytes (promyelocytes, myelocytes and metamyelocytes) > 1% indicates that a LEFT SHIFT is Present. L501.4021on 09-04-2024 Trop T High Sen 7 ng/L Normal <=14 [facility] Comment on above: Performed By: #### L 100.0100, L500.2500, L501.4021 #### [facility] [address] [place], [place], [address] MCV (mean corpuscular volume ) determinationOrdered By: Conrado Richardson on 09-04-2024 MCV (RBC) [Entitic vol] 83.9 fL 81-99 [facility] Mean corpuscular hemoglobin (MCH) determinationOrdered By: Conrado Richardson on 09-04-2024 MCH (RBC) [Entitic mass] 27.5 pg 27.0-32.0 [facility] Mean corpuscular hemoglobin concentration (MCHC) determinationOrdered By: Conrado Richardson on 09-04-2024 MCHC (RBC) [Mass/Vol] 32.8 g/dL 32-36 [facility] Mean platelet volume determi nationOrdered By: Conrado Richardson on 09-04-2024 Platelet mean volume (Bld) [Entitic vol] 9.4 fL 6.2-12.0 [facility] Monocyte percentageOrdered B y: Conrado Richardson on 09-04-2024 Monocytes/100 WBC (Bld) 8.8 % 0-10 [facility] Neutrophil percentageOrdered By: Conrado Richardson on 09-04-2024 Neutrophils/100 WBC (Bld) 70.6 % High 47-70 [facility] Nucleated red blood cell per centageOrdered By: Conrado Richardson on 09-04-2024 Nucleated RBC/100 WBC (Bld) [Ratio] 0 % 0-5 [facility] Platelet countOrdered By: Wilson Richardson on 09-04-2024 Platelets (Bld) [#/Vol] 256 10*3/uL 150-450 [facility] Potassium measurement (mass/ volume)Ordered By: Conrado Richardson on 09-04-2024 Potassium (Unsp spec) [Mass/Vol] 3.8 mmol/L 3.3-5.1 [facility] RBC Auto (Bld) [#/Vol]Ordere d By: Conrado Richardson on 09-04-2024 RBC (Bld) [#/Vol] 4.22 10*6/uL 4.2-5.4 [facility] Serum creatinine measurement (mass/volume)Ordered By: Conrado Richardson on 09-04-2024 Creatinine [Mass/Vol] 0.45 mg/dL Low 0.70-1.20 [facility] Serum glucose measurement (m ass/volume)Ordered By: Conrado Richardson on 09-04-2024 Glucose [Mass/Vol] 91 mg/dL 70-99 [facility] Serum or plasma calcium rta urement (mass/volume)Ordered By: Conrado Richardson on 09-04-2024 Calcium [Mass/Vol] 8.7 mg/dL 7.6-11.0 [facility] Serum or plasma urea nitroge n measurement (mass/volume)Ordered By: Conrado Richardson on 09-04-2024 Urea nitrogen [Mass/Vol] 7 mg/dL 4-19 [facility] Sodium levelOrdered By: Conrado Richardson on 09-04-2024 Sodium [Moles/Vol] 137 mmol/L 133-145 [facility] Troponin T.cardiac [Mass/vol ume] in Serum or Plasma by High sensitivity methodOrdered By: Conrado Richardson on 09-04-2024 Troponin T.cardiac High sensitivity method [Mass/Vol] 7 ng/L <14 [facility] URINE OB DIP B/Oon 5 Glucose Ql (U) Negative Neg mg/dL [facility] Protein.monoclonal (U) [Mass/Vol] trace Neg mg/dL [facility] White blood cell (WBC) count Ordered By: Conrado Richardson on 09-04-2024 WBC (Bld) [#/Vol] 11.8 10*3/uL High 4.4-11.0 [facility] URINE OB DIP B/Oon 5 Glucose Ql (U) Negative Neg mg/dL [facility] Interpretation and review of laboratory results Normal [facility] Protein.monoclonal (U) [Mass/Vol] Negative Neg mg/dL [facility] CNOVon 08-13-2024 CNOV Office Visit (FAMPWS ) SHAHZAD WOODARDJOSHAileen Clifford ([id number]) 3 F Date Time Provider Department 08/13/24 9:20 [facility] During your visit today, we recorded [...] Rhonda. - Planning a vaginal delivery at [place]. - Taking vitamins; denies nausea or emesis. 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 Recording using [employer] software for draft documentation of the visit was discussed with the patient/authorized retail field representative; all questions welcomed and answered. Patient/authorized retail field representative agreed to proceed Allergies As of [...] (CLARITIN ORA (more content not included)... Normal [facility] CNPNon 08-06-2024 CNPN Telephone (OBGYWM) AMIRAH WOODARD ([id number]) 3 F Date Time Provider Department 08/06/24 [place] OBGYWM During your visit today, we recorded the following information about you: Caroline Mora RN 08/06/2024 12:39 PM Signed Breast pump request received from [employer]. Order to provider to sign. JIA Shane [...] sprays in each nostril once daily. 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 - Azadteuq-Fo-Cwv-Fe-FA tab Take 1 tablet by mouth once [...] Status:Closed by TIO HUTCHISON on 08/03/24 Normal [facility] BILE ACIDS, TOTALon 08-02-19 25 Bile acid [Moles/Vol] 5.3 umol/L Normal <13.6 [facility] Comment on above: Order Comment: Speci men Type: SWAB Ordering Facility: [facility] Address: [address] [place] [address] Result Comment: Refe rence interval applies to [...] Performed By: #### C VTV, BVAMP #### [facility] CLIA [id number] [address] [place], [place] [id number] [place] CBC W Auto Differential pane l (Bld)on 08-01-2024 Basophils (Bld) [#/Vol] 0.09 10*3/uL [facility] Basophils/100 WBC (Bld) 0.6 % [facility] Differential cell count method Nom (Bld) Auto [facility] Eosinophils (Bld) [#/Vol] 0.82 10*3/uL High [facility] Eosinophils/100 WBC (Bld) 5.8 % [facility] Erythrocyte distribution width (RBC) [Ratio] 12.6 % 11.5 - 15.0 % [facility] Hematocrit (Bld) [Volume fraction] 36.5 % 36.0 - 46.0 % [facility] Hemoglobin (Bld) [Mass/Vol] 12 g/dL 11.5 - 15.5 g/dL [facility] Immature granulocytes (Bld) [#/Vol] 0.25 10*3/uL High [facility] Immature granulocytes/100 WBC (Bld) 1.8 % [facility] Interpretation and review of laboratory results Abnormal [facility] Lymphocytes (Bld) [#/Vol] 2.2 10*3/uL [facility] Lymphocytes/100 WBC (Bld) 15.6 % [facility] MCH (RBC) [Entitic mass] 28 pg 26.0 - 34.0 pg [facility] MCHC (RBC) [Mass/Vol] 32.9 g/dL 30.5 - 36.0 g/dL [facility] MCV (RBC) [Entitic vol] 85.3 fL 80.0 - 100.0 fL [facility] Monocytes (Bld) [#/Vol] 0.92 10*3/uL High [facility] Monocytes/100 WBC (Bld) 6.5 % [facility] Neutrophils (Bld) [#/Vol] 9.86 10*3/uL High [facility] Neutrophils/100 WBC (Bld) 69.7 % [facility] Nucleated RBC (Bld) [#/Vol] [facility] Nucleated RBC/100 WBC (Bld) [Ratio] 0 % /100 WBC [facility] Platelet mean volume (Bld) [Entitic vol] 9.1 fL 9.0 - 12.7 fL [facility] Platelets (Bld) [#/Vol] 282 10*3/uL [facility] RBC (Bld) [#/Vol] 4.28 10*6/uL 3.90 - 5.2 0 m/uL [facility] WBC (Bld) [#/Vol] 14.14 10*3/uL High [facility] Basophils (Bld) [#/Vol] 0.09 10*3/uL Normal <0.11 [facility] Comment on above: Order Comment: Speci men Type: BLOOD SPECIMENOrdering Facility: [facility] Address: [address] [place], [place] [address] Performed By: #### 5 7021-8 ####[facility] [id number] [place] [address] [place] Basophils/100 WBC (Bld) 0.6 % Normal [facility] Comment on above: Order Comment: Speci men Type: BLOOD SPECIMENOrdering Facility: [facility] Address: [address] [place] [address] Performed By: #### 5 7021-8 ####[facility]ERSON[facility] [id number] [place] [address] [place] Differential cell count method Nom (Bld) Auto Normal [facility] Comment on above: Order Comment: Speci men Type: BLOOD SPECIMENOrdering Facility: [facility] Address: [address] [place] [address] Performed By: #### 5 7021-8 ####[facility] [id number] [place] [address] [place] Eosinophils (Bld) [#/Vol] 0.82 10*3/uL High <0.46 [facility] Comment on above: Order Comment: Speci men Type: BLOOD SPECIMENOrdering Facility: [facility] Address: [address] [place] [address] Performed By: #### 5 7021-8 ####[facility] [id number] [place] [address] [place] Eosinophils/100 WBC (Bld) 5.8 % Normal [facility] Comment on above: Order Comment: Speci men Type: BLOOD SPECIMENOrdering Facility: [facility] Address: [address] [place] [address] Performed By: #### 5 7021-8 ####[facility] [id number] [place] [address] [place] Erythrocyte distribution width (RBC) [Ratio] 12.6 % Normal 11.5-15.0 [facility] Comment on above: Order Comment: Speci men Type: BLOOD SPECIMENOrdering Facility: [facility] Address: [address] [place] [address] Performed By: #### 5 7021-8 ####[facility] NEAL [id number] [place] [address] [place] Hematocrit (Bld) [Volume fraction] 36.5 % Normal 36.0-46.0 [facility] Comment on above: Order Comment: Speci men Type: BLOOD SPECIMENOrdering Facility: [facility] Address: [address] [place] [address] Performed By: #### 5 7021-8 ####[facility]ITALNCMILVIA [id number] [place] [address] [place] Hemoglobin (Bld) [Mass/Vol] 12.0 g/dL Normal 11.5-15.5 [facility] Comment on above: Order Comment: Speci men Type: BLOOD SPECIMENOrdering Facility: [facility] Address: [address] [place] [address] Performed By: #### 5 7021-8 ####[facility]OSPITALANNAHilario [id number] [place] [address] [place] Immature granulocytes (Bld) [#/Vol] 0.25 10*3/uL High <0.10 [facility] Comment on above: Order Comment: Speci men Type: BLOOD SPECIMENOrdering Facility: [facility] Address: [address] [place] [address] Performed By: #### 5 7021-8 ####[facility]ITALNCLIA [id number] [place] [address] [place] Immature granulocytes/100 WBC (Bld) 1.8 % Normal [facility] Comment on above: Order Comment: Speci men Type: BLOOD SPECIMENOrdering Facility: [facility] Address: [address] [place] [address] Performed By: #### 5 7021-8 ####[facility] MILLWNCLIA [id number] [place] [address] [place] Lymphocytes (Bld) [#/Vol] 2.20 10*3/uL Normal 1.00-4.00 [facility] Comment on above: Order Comment: Speci men Type: BLOOD SPECIMENOrdering Facility: [facility] Address: [address] [place] [address] Performed By: #### 5 7021-8 ####[facility] [id number] [place] [address] [place] Lymphocytes/100 WBC (Bld) 15.6 % Normal [facility] Comment on above: Order Comment: Speci men Type: BLOOD SPECIMENOrdering Facility: [facility] Address: [address] [place] [address] Performed By: #### 5 7021-8 ####[facility] [id number] [place] [address] [place] MCH (RBC) [Entitic mass] 28.0 pg Normal 26.0-34.0 [facility] Comment on above: Order Comment: Speci men Type: BLOOD SPECIMENOrdering Facility: [facility] Address: [address] [place] [address] Performed By: #### 5 7021-8 ####[facility]ERSONL[facility] [id number] [place] [address] [place] MCHC (RBC) [Mass/Vol] 32.9 g/dL Normal 30.5-36.0 [facility] Comment on above: Order Comment: Speci men Type: BLOOD SPECIMENOrdering Facility: [facility] Address: [address] [place] [address] Performed By: #### 5 7021-8 ####[facility]PITALNCLIA [id number] [place] [address] [place] MCV (RBC) [Entitic vol] 85.3 fL Normal 80.0-100.0 [facility] Comment on above: Order Comment: Speci men Type: BLOOD SPECIMENOrdering Facility: [facility] Address: [address] [place] [address] Performed By: #### 5 7021-8 ####[facility]ITALNCUN[facility] [id number] [place] [address] [place] Monocytes (Bld) [#/Vol] 0.92 10*3/uL High <0.87 [facility] Comment on above: Order Comment: Speci men Type: BLOOD SPECIMENOrdering Facility: [facility] Address: [address] [place] [address] Performed By: #### 5 7021-8 ####[facility]ITALNCUNIV[facility] [id number] [place] [address] [place] Monocytes/100 WBC (Bld) 6.5 % Normal [facility] Comment on above: Order Comment: Speci men Type: BLOOD SPECIMENOrdering Facility: [facility] Address: [address] [place] [address] Performed By: #### 5 7021-8 ####[facility] ANDERSONLI [id number] [place] [address] [place] Neutrophils (Bld) [#/Vol] 9.86 10*3/uL High 1.45-7.50 [facility] Comment on above: Order Comment: Speci men Type: BLOOD SPECIMENOrdering Facility: [facility] Address: [address] [place] [address] Performed By: #### 5 7021-8 ####[facility] HOSPITALNCLI [id number] [place] [address] [place] Neutrophils/100 WBC (Bld) 69.7 % Normal [facility] Comment on above: Order Comment: Speci men Type: BLOOD SPECIMENOrdering Facility: [facility] Address: [address] [place] [address] Performed By: #### 5 7021-8 ####[facility] MICAHNGOC [id number] [place] [address] [place] Nucleated RBC (Bld) [#/Vol] 10*3/uL Normal <0.01 [facility] Comment on above: Order Comment: Speci men Type: BLOOD SPECIMENOrdering Facility: [facility] Address: [address] [place] [address] Performed By: #### 5 7021-8 ####[facility]OSPITALNCMILVIA [id number] [place] [address] [place] Nucleated RBC/100 WBC (Bld) [Ratio] 0.0 /100 WBC Normal [facility] Comment on above: Order Comment: Speci men Type: BLOOD SPECIMENOrdering Facility: [facility] Address: [address] [place] [address] Performed By: #### 5 7021-8 ####[facility]PITALNCLIA [id number] [place] [address] [place] Platelet mean volume (Bld) [Entitic vol] 9.1 fL Normal 9.0-12.7 [facility] Comment on above: Order Comment: Speci men Type: BLOOD SPECIMENOrdering Facility: [facility] Address: [address] [place] [address] Performed By: #### 5 7021-8 ####[facility]OSPITALNCLIA [id number] [place] [address] [place] Platelets (Bld) [#/Vol] 282 10*3/uL Normal 150-400 [facility] Comment on above: Order Comment: Speci men Type: BLOOD SPECIMENOrdering Facility: [facility] Address: [address] [place] [address] Performed By: #### 5 7021-8 ####[facility]PITALNCLIA [id number] [place] [address] [place] RBC (Bld) [#/Vol] 4.28 10*6/uL Normal 3.90-5.20 [facility] Comment on above: Order Comment: Speci men Type: BLOOD SPECIMENOrdering Facility: [facility] Address: [address] [place] [address] Performed By: #### 5 7021-8 ####[facility]PITALNCLIA [id number] [place] [address] [place] WBC (Bld) [#/Vol] 14.14 10*3/uL High 3.70-11.00 [facility] Comment on above: Order Comment: Speci men Type: BLOOD SPECIMENOrdering Facility: [facility] Address: [address] [place] [address] Performed By: #### 5 7021-8 ####[facility]OSPITALNCLIA [id number] [place] [address] [place] Comprehensive metabolic 2000 panelOrdered By: Jazmyn Joshua on 08-01-2024 Albumin [Mass/Vol] 3.4 g/dL Low 3.9 - 4.9 g/dL [facility] ALP [Catalytic activity/Vol] 110 U/L 34 - 123 U/L [facility] ALT [Catalytic activity/Vol] 12 U/L 7 - 38 U/L [facility] Anion gap [Moles/Vol] 12 mmol/L 8 - 15 mmol/L [facility] AST [Catalytic activity/Vol] 12 U/L Low 13 - 35 U/L [facility] Bilirubin [Mass/Vol] 0.3 mg/dL 0.2 - 1.3 mg/dL [facility] Calcium [Mass/Vol] 9 mg/dL 8.5 - 10. 2 mg/dL [facility] Chloride [Moles/Vol] 105 mmol/L 98 - 107 mmol/L [facility] CO2 [Moles/Vol] 19 mmol/L Low 22 - 30 mmol/L [facility] Creatinine [Mass/Vol] 0.53 mg/dL Low 0.58 - 0.96 mg/dL [facility] GFR/1.73 sq M.predicted among non-blacks MDRD (S/P/Bld) [Vol rate/Area] 137 mL/min/{1.73_m2} - PINF [facility] Comment on above: Estimated Glomerular Filtration [...] [Mass/Vol] 91 mg/dL 74 - 99 mg/dL [facility] Comment on above: The [place] Di[employer] Association (ADA) provides guidance for [...] Standards of Medical Care in Diabetes 2016, [place] [employer]. Diabetes Care. 2016.39(Suppl 1). Interpretation and review of laboratory results Abnormal [facility] Potassium [Moles/Vol] 3.9 mmol/L 3.7 - 5.1 mmol/L [facility] Protein [Mass/Vol] 6.3 g/dL 6.3 - 8.0 g/dL [facility] Sodium [Moles/Vol] 136 mmol/L 136 - 144 mmol/L [facility] Urea nitrogen [Mass/Vol] 9 mg/dL 7 - 21 mg/dL [facility] Comprehensive metabolic 2000 panelon 08-01-2024 Albumin [Mass/Vol] 3.4 g/dL Low 3.9-4.9 [facility] Comment on above: Order Comment: Speci men Type: SWAB [facility]ing Facility: [facility] Address: [address] [place] [address] Performed By: #### C VTV, BVAMP #### [facility] CLIA [id number] [address] [place] [address] [place] ALP [Catalytic activity/Vol] 110 U/L Normal 34-123 [facility] Comment on above: Order Comment: Speci men Type: SWAB [facility]ing Facility: [facility] Address: [address] [place] [address] Performed By: #### C VTV, BVAMP #### [facility] CLIA [id number] [address] [place] [address] [place] ALT [Catalytic activity/Vol] 12 U/L Normal 7-38 [facility] Comment on above: Order Comment: Speci men Type: SWAB [facility]: [facility] Address: [address] [place] [address] Performed By: #### C VTV, BVAMP #### [facility] CLIA [id number] [address] [place] [address] [place] Anion gap [Moles/Vol] 12 mmol/L Normal 8-15 [facility] Comment on above: Order Comment: Speci men Type: SWAB [facility]ing [facility]: [facility] Address: [address] [place] [address] Performed By: #### C VTV, BVAMP #### [facility] CLIA [id number] [address] [place] [address] [place] AST [Catalytic activity/Vol] 12 U/L Low 13-35 [facility] Comment on above: Order Comment: Speci men Type: SWAB [facility]ing [facility]: [facility] Address: [address] [place] [address] Performed By: #### C VTV, BVAMP #### [facility] CLIA [id number] [address] [place] [address] [place] Bilirubin [Mass/Vol] 0.3 mg/dL Normal 0.2-1.3 [facility] Comment on above: Order Comment: Speci men Type: SWAB [facility]ing [facility]: [facility] Address: [address] [place] [address] Performed By: #### C VTV, BVAMP #### [facility] CLIA [id number] [address] [place] [address] [place] Calcium [Mass/Vol] 9.0 mg/dL Normal 8.5-10.2 [facility] Comment on above: Order Comment: Speci men Type: SWAB [facility]ing Facility: [facility] Address: [address] [place] [address] Performed By: #### C VTV, BVAMP #### [facility] CLIA [id number] [address] [place] [address] [place] Chloride [Moles/Vol] 105 mmol/L Normal 98-107 [facility] Comment on above: Order Comment: Speci men Type: SWAB [facility]ing Facility: [facility] Address: [address] [place] [address] Performed By: #### C VTV, BVAMP #### [facility] CLIA [id number] [address] [place] [address] [place] CO2 [Moles/Vol] 19 mmol/L Low 22-30 [facility] Comment on above: Order Comment: Speci men Type: SWAB [facility]ing Facility: [facility] Address: [address] [place] [address] Performed By: #### C VTV, BVAMP #### [facility] CLIA [id number] [address] [place] [address] [place] Creatinine [Mass/Vol] 0.53 mg/dL Low 0.58-0.96 [facility] Comment on above: Order Comment: Speci men Type: SWAB [facility]ing Facility: [facility] Address: [address] [place] [address] Performed By: #### C VTV, BVAMP #### [facility] CLIA [id number] [address] [place] [address] [place] Creatinine and Glomerular filtration rate.predicted panel (S/P/Bld) 137 mL/min/1.73m??? Normal >=60 [facility] Comment on above: Order Comment: Violeta alvarez Type: SWAB Ordering Facility: [facility] Address: [address] [place] [address] Result Comment: Ketty mated Glomerular Filtration Rate [...] Performed By: #### C VTV, BVAMP #### [facility] CLIA [id number] [address] [place] [address] [place] Glucose [Mass/Vol] 91 mg/dL Normal 74-99 [facility] Comment on above: Order Comment: Violeta alvarez Type: SWAB [facility]ing [facility]: [facility] Address: [address] [place] [address] Result Comment: The [place] Diabetes Association (ADA) provides guidance for cutoff [...] Standards of Medical Care in Diabetes 2016, [place] [employer]. Diabetes Care. 2016.39(Suppl 1). Performed By: #### C VTV, BVAMP #### [facility] CLIA [id number] [address] [place] [address] [place] Potassium [Moles/Vol] 3.9 mmol/L Normal 3.7-5.1 [facility] Comment on above: Order Comment: Speci men Type: SWAB [facility]ing Facility: [facility] Address: [address] [place] [address] Performed By: #### C VTV, BVAMP #### [facility] CLIA [id number] [address] [place] [address] [place] Protein [Mass/Vol] 6.3 g/dL Normal 6.3-8.0 [facility] Comment on above: Order Comment: Speci men Type: SWAB [facility]ing Facility: [facility] Address: [address] [place] [address] Performed By: #### C VTV, BVAMP #### [facility] CLIA [id number] [address] [place] [address] [place] Sodium [Moles/Vol] 136 mmol/L Normal 136-144 [facility] Comment on above: Order Comment: Speci men Type: SWAB [facility]ing Facility: [facility] Address: [address] [place] [address] Performed By: #### C VTV, BVAMP #### [facility] CLIA [id number] [address] [place] [address] [place] Urea nitrogen [Mass/Vol] 9 mg/dL Normal 7-21 [facility] Comment on above: Order Comment: Speci men Type: SWAB [facility]ing [facility]: [facility] Address: [address] [place] [address] Performed By: #### C VTV, BVAMP #### [facility] CLIA [id number] [address] [place] [address] [place] BACTERIAL VAGINOSIS NAATon 0 5- Lactobacillus crispatus+gasseri+imelda enii + Gardnerella vaginalis + Atopobium vaginae rRNA MEG+probe Ql (Vag fld) Not detected Normal Not detected [facility] Comment on above: Order Comment: Speci men Type: SWABOrdering Facility: [facility] Address: [address] [place] [address] Performed By: #### C VTV, BVAMP ####[facility] LABCLIA [id number] [place] [address] [place] FRANCO/TRICHOMONAS NAATon 0 07-20-2024 C. glabrata RNA MEG+probe Ql (Vag fld) Not detected Normal Not detected [facility] Comment on above: Order Comment: Speci men Type: SWABOrdering Facility: [facility] Address: [address] [place] [address] Performed By: #### C VTV, BVAMP ####[facility] LABCLIA [id number] [address] [facility] Franco sp DNA MEG+probe Ql (Vag fld) Not detected Normal Not detected [facility] Comment on above: Order Comment: Speci men Type: SWABOrdering Facility: [facility] Address: [address] [place] [address] Result Comment: The Franco species group target includes C. albicans, C. tropicalis, C. parapsilosis, and C. dubliniensis. Performed By: #### C VTV, BVAMP ####[facility] LABCLIA [id number] [address] [place] T. vaginalis DNA MEG+probe Ql (Unsp spec) Not detected Normal Not detected [facility] Comment on above: Order Comment: Speci men Type: SWABOrdering Facility: [facility] Address: [address] [place] [address] Performed By: #### C VTV, BVAMP ####[facility] LABCLIA [id number] [place] [address] [place] CBC W Auto Differential pane l (Bld)on 07-20-2024 Basophils (Bld) [#/Vol] 0.07 10*3/uL Normal <0.11 [facility] Comment on above: Order Comment: Speci men Type: BLOOD SPECIMEN Ordering Facility: [facility] Address: [address] [place] [address] Performed By: #### 5 7021-8 #### [facility] CLIA [id number] [address] [place] [address] [place] Basophils/100 WBC (Bld) 0.5 % Normal [facility] Comment on above: Order Comment: Speci men Type: BLOOD SPECIMEN Ordering Facility: [facility] Address: [address] [place] [address] Performed By: #### 5 7021-8 #### [facility] CLIA [id number] [address] [place] [address] [place] Differential cell count method Nom (Bld) Auto Normal [facility] Comment on above: Order Comment: Speci men Type: BLOOD SPECIMEN [facility]ing Facility: [facility] Address: [address] [place] [address] Performed By: #### 5 7021-8 #### [facility] CLIA [id number] [address] [place] [address] [place] Eosinophils (Bld) [#/Vol] 0.58 10*3/uL High <0.46 [facility] Comment on above: Order Comment: Speci men Type: BLOOD SPECIMEN Ordering Facility: [facility] Address: [address] [place] [address] Performed By: #### 5 7021-8 #### [facility] CLIA [id number] [address] [place] [address] [place] Eosinophils/100 WBC (Bld) 4.3 % Normal [facility] Comment on above: Order Comment: Speci men Type: BLOOD SPECIMEN Ordering Facility: [facility] Address: [address] [place] [address] Performed By: #### 5 7021-8 #### [facility] CLIA [id number] [address] [place] [address] [place] Erythrocyte distribution width (RBC) [Ratio] 12.7 % Normal 11.5-15.0 [facility] Comment on above: Order Comment: Speci men Type: BLOOD SPECIMEN Ordering Facility: [facility] Address: [address] [place] [address] Performed By: #### 5 7021-8 #### [facility] CLIA [id number] [address] [place] [address] [place] Hematocrit (Bld) [Volume fraction] 35.8 % Low 36.0-46.0 [facility] Comment on above: Order Comment: Speci men Type: BLOOD SPECIMEN [facility]ing Facility: [facility] Address: [address] [place] [address] Performed By: #### 5 7021-8 #### [id number] [address] [place] [address] [place] Hemoglobin (Bld) [Mass/Vol] 11.8 g/dL Normal 11.5-15.5 [facility] Comment on above: Order Comment: Speci men Type: BLOOD SPECIMEN Ordering Facility: [facility] Address: [address] [place] [address] Performed By: #### 5 7021-8 #### [id number] [address] [place] [address] [place] Immature granulocytes (Bld) [#/Vol] 0.15 10*3/uL High <0.10 [facility] Comment on above: Order Comment: Speci men Type: BLOOD SPECIMEN Ordering Facility: [facility] Address: [address] [place] [address] Performed By: #### 5 7021-8 #### [id number] [address] [place], [place] [address] [place] Immature granulocytes/100 WBC (Bld) 1.1 % Normal [facility] Comment on above: Order Comment: Speci men Type: BLOOD SPECIMEN Ordering Facility: [facility] Address: [address] [place] [address] Performed By: #### 5 7021-8 #### [facility] CLIA [id number] [address] [place] [address] [place] Lymphocytes (Bld) [#/Vol] 2.19 10*3/uL Normal 1.00-4.00 [facility] Comment on above: Order Comment: Speci men Type: BLOOD SPECIMEN Ordering Facility: [facility] Address: [address] [place] [address] Performed By: #### 5 7021-8 #### [facility] CLIA [id number] [address] [place] [address] [place] Lymphocytes/100 WBC (Bld) 16.1 % Normal [facility] Comment on above: Order Comment: Speci men Type: BLOOD SPECIMEN Ordering Facility: [facility] Address: [address] [place] [address] Performed By: #### 5 7021-8 #### [facility] CLIA [id number] [address] [place] [address] [place] MCH (RBC) [Entitic mass] 28.7 pg Normal 26.0-34.0 [facility] Comment on above: Order Comment: Speci men Type: BLOOD SPECIMEN Ordering Facility: [facility] Address: [address] [place] [address] Performed By: #### 5 7021-8 #### [facility] CLIA [id number] [address] [place] [address] [place] MCHC (RBC) [Mass/Vol] 33.0 g/dL Normal 30.5-36.0 [facility] Comment on above: Order Comment: Speci men Type: BLOOD SPECIMEN Ordering Facility: [facility] Address: [address] [place] [address] Performed By: #### 5 7021-8 #### [facility] CLIA [id number] [address] [place] [address] [place] MCV (RBC) [Entitic vol] 87.1 fL Normal 80.0-100.0 [facility] Comment on above: Order Comment: Speci men Type: BLOOD SPECIMEN Ordering Facility: [facility] Address: [address] [place] [address] Performed By: #### 5 7021-8 #### [facility] CLIA [id number] [address] [place] [address] [place] Monocytes (Bld) [#/Vol] 0.86 10*3/uL Normal <0.87 [facility] Comment on above: Order Comment: Speci men Type: BLOOD SPECIMEN Ordering Facility: [facility] Address: [address] [place] [address] Performed By: #### 5 7021-8 #### [facility] CLIA [id number] [address] [place] [address] [place] Monocytes/100 WBC (Bld) 6.3 % Normal [facility] Comment on above: Order Comment: Speci men Type: BLOOD SPECIMEN Ordering Facility: [facility] Address: [address] [place] [address] Performed By: #### 5 7021-8 #### [facility] CLIA [id number] [address] [place] [address] [place] Neutrophils (Bld) [#/Vol] 9.79 10*3/uL High 1.45-7.50 [facility] Comment on above: Order Comment: Speci men Type: BLOOD SPECIMEN Ordering Facility: [facility] Address: [address] [place] [address] Performed By: #### 5 7021-8 #### [facility] CLIA [id number] [address] [place] [address] [place] Neutrophils/100 WBC (Bld) 71.7 % Normal [facility] Comment on above: Order Comment: Speci men Type: BLOOD SPECIMEN Ordering Facility: [facility] Address: [address] [place] [address] Performed By: #### 5 7021-8 #### [facility] CLIA [id number] [address] [place] [address] [place] Nucleated RBC (Bld) [#/Vol] 10*3/uL Normal <0.01 [facility] Comment on above: Order Comment: Speci men Type: BLOOD SPECIMEN Ordering Facility: [facility] Address: [address] [place] [address] Performed By: #### 5 7021-8 #### [facility] CLIA [id number] [address] [place] [address] [place] Nucleated RBC/100 WBC (Bld) [Ratio] 0.0 /100 WBC Normal [facility] Comment on above: Order Comment: Speci men Type: BLOOD SPECIMEN Ordering Facility: [facility] Address: [address] [place] [address] Performed By: #### 5 7021-8 #### [facility] CLIA [id number] [address] [place] [address] [place] Platelet mean volume (Bld) [Entitic vol] 9.0 fL Normal 9.0-12.7 [facility] Comment on above: Order Comment: Speci men Type: BLOOD SPECIMEN Ordering Facility: [facility] Address: [address] [place] [address] Performed By: #### 5 7021-8 #### [facility] CLIA [id number] [address] [place] [address] [place] Platelets (Bld) [#/Vol] 269 10*3/uL Normal 150-400 [facility] Comment on above: Order Comment: Speci men Type: BLOOD SPECIMEN Ordering Facility: [facility] Address: [address] [place] [address] Performed By: #### 5 7021-8 #### [facility] CLIA [id number] [address] [place] [address] [place] RBC (Bld) [#/Vol] 4.11 10*6/uL Normal 3.90-5.20 [facility] Comment on above: Order Comment: Speci men Type: BLOOD SPECIMEN Ordering Facility: [facility] Address: [address] [place] [address] Performed By: #### 5 7021-8 #### [facility] CLIA [id number] [address] [place] [address] [place] WBC (Bld) [#/Vol] 13.64 10*3/uL High 3.70-11.00 [facility] Comment on above: Order Comment: Speci men Type: BLOOD SPECIMEN Ordering Facility: [facility] Address: [address] [place] [address] Performed By: #### 5 7021-8 #### [facility] CLIA [id number] [address] [place] [address] [place] GESTATIONAL GLUCOSE SCREEN, 1-HOUR, 50 GRAM, NON-FASTINGon 07-20-2024 Glucose [Mass/Vol] 116 mg/dL Normal 74-134 [facility] Comment on above: Order Comment: Speci men Type: BLOOD SPECIMENOrdering Facility: [facility] Address: [address] [place] [address] Result Comment: [facility] Congress of Obstetricians and Gynecologists (Emir/Shon) guidelines state a gestational diabetes mellitus positive screen is made, in women not previously diagnosed with overt diabetes, when the 1 hr plasma glucose level is equal to or above 140 mg/dL. The [facility] [employer] [facility] [place] recommends a 135 mg/dL cutoff. Performed By: #### G LTGST ####[facility] [id number] [place] [address] [place] Reagin and Treponema pallidu m IgG and IgM [Interp]on 07-20-2024 T. pallidum IgG+IgM IA Ql (S) Non-Reactive Normal Nonreactive [facility] Comment on above: Order Comment: Speci antonio Type: BLOOD SPECIMENOrdering Facility: [facility] Address: [address] [place] [address] Performed By: #### 7 3752-8 ####[facility] LABIA [id number] [place] [address] [place] Reagin+T pallidum IgG+IgM Se rPl-Impon 07-20-2024 Reagin and Treponema pallidum IgG and IgM [Interp] Cannot exclude recent Treponemal infection if specimen collected within 7-10 days after appearance of suspect lesions or 2-3 weeks after an exposure. Clinical correlation is required. Normal [facility] Comment on above: Order Comment: Violeta alvarez Type: BLOOD SPECIMENOrdering Facility: [facility] Address: [address] [place] [address] Performed By: #### 7 3752-8 ####[facility] LABIA [id number] [place] [address] [place] CNPSherine 07-19-2024 CNPN Telephone (OBGYWM) AMIRAH WOODARD ([id number]) 3 F Date Time Provider Department 07/19/24 CASTILLO MCKEON During your visit today, we recorded the following information about you: Kia Sheldon RN 07/19/2024 4:23 PM Signed 28w2d Patient called to report that she has not felt the baby move since this morning. Inquired if she did kick counts today. Patient has not. Advised that she would need to go to [facility] for evaluation given the office hours. Instructed patient how to do kick counts if she wanted to see how many movements she has in an hour first. Updated HANDP faxed to [facility]. JIA Bundy Rebecca L, MD 07/19/2024 4:27 PM Signed noted. thanks. Castillo Mckeon MD Allergies As of Date: 07/19/2024 Noted Allergy Reaction SEASONAL ALLERGIES 12/29/2017 14 - Other: See Comments Comments: Puffy itchy eyes and scratchy throat. Date Reviewed: 06/21/2024 Reviewed by: Shree Santos MA - Fully Assessed Reason for Visit: Decreased FM [Other] Prescriptions as of 07/19/2024 - Dmjxhrhv-Dp-Rlf-Fe-FA tab Take 1 tablet by mouth once [...] Status:Closed by VIVIAN ADAMS on 07/19/24 Normal [facility] UA DIP, URINE (POC)on 2024 BILIRUBIN UA (POCT) Negative Negative [facility] CLARITY UA (POCT) Clear [facility] COLOR UA (POCT) Yellow [facility] GLUCOSE UA (POCT) Negative Negative mg/dL [facility] Hemoglobin Ql (U) Negative Negative [facility] Interpretation and review of laboratory results Abnormal [facility] KETONE UA (POCT) Negative Negative mg/dL [facility] LEUKOCYTES UA (POCT) Trace Abnormal Negative [facility] NITRITE UA (POCT) Negative [facility] PH UA (POCT) 7 4.5 - 8.0 [facility] Protein Ql (U) Negative Negative mg/dL [facility] SPECIFIC GRAVITY UA (POCT) 1.025 1.005 - 1.030 [facility] UROBILINOGEN UA (POCT) 0.2 Normal E.U./d L [facility] Location:[facility], [address] , [place], [place], [id number] [place] [address] POINT OF CARE [facility] Examination level ultrasound on 05-29-2024 Indication [...] 14 oz EFW by: Hadlock (HC-AC-FL) Extended Manufacturing Accountant 5.0 mm CM 4.4 mm 28% Nicolaides [...] normal LVOT view: normal 3-vessel view: normal 9-sjrszd-qpcxtce view: normal Heart / Thorax Situs: situs [...] Kermit Carmen M.D. 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 Tele[facility] (OBGYWM) AMIRAH WOODARD ([id number]) 3 F Date Time Provider Department 05/01/24 [...] increased LOF tonight I recommend going to [facility]. MD Monalisa Oleary Jennifer, JIA 05/01/2024 3:44 PM Signed Left message for patient to call office. Kia Sheldon RN Allergies As of Date: 05/01/2024 Noted Allergy Reaction SEASONAL ALLERGIES 12/29/2017 14 - Other: See Comments Comments: Puffy itchy eyes and scratchy throat. Date Reviewed: 04/27/2024 Reviewed by: Shree Santos MA - Fully Assessed Reason for Visit: Question (OB Question) [8282] Prescriptions as of 05/01/2024 - Xrruxcla-Am-Cby-Fe-FA tab Take 1 tablet by mouth once [...] Status:Closed by KIA SHELDON on 05/01/24 Normal [facility] Emergency Department Summary on 04-28-2024 Emergency Department Summary [facility] Medical Records Department [address] [place] [address] Emergency Department Summary 04/28/24 MR#: [id number] Acct: [id number] Name: AMIRAH WOODARD Rep #: [id number] : 2005 18 From: Shraddha HAYDEN PCP: Dr. Que Chavez MD Status:DEP ER Location: ED HPI History of Present Illness Chief Complaint: General Illness Narrative Narrative: 18-year-old female is 16 weeks and developed congestion yesterday and this morning the fatigue, chills, body aches, headache and cough. She works in the [employer] and has been around patients with different respiratory viruses. She called her ROOM SERVICE CLERK who recommended she come in and be screened for the flu. She also has urinary frequency today but no burning or hematuria. She has no abdominal pain or vaginal bleeding or discharge. PFSH PFS Medical History Left ankle pain Home Medications ???Medication ???Instructions ???Recorded ???Last Taken ???Type Lactobacillus 25 billion cap PO 10/04/23 Unknown History cell-Bifido 25 billion onbk-ENT-smikw capsule albuterol sulfate 90 mcg/actuation inhalation 10/04/23 [...] Ox 100 Oxygen Delivery Method Room Air [facility] Narrative Medical decision making narrative: Differential: Viral [...] and recommended Tylenol and follow-up with her ROOM SERVICE CLERK. She was discharged in stable condition. Lab Data Attestation: I reviewed the patient's lab results. Labs: Laboratory Results - last 24 hr 04/28/24 20:42 Urine Color Yellow Urine Clarity Clear Urine pH 6.0 Ur Specific [place] 1.015 Urine Protein 15 H Urine Glucose (UA) Normal Urine Ketones Negative Urine Occult Blood Negative Urine Nitrite Negative Urine Bilirubin Negative Urine Urobilinogen Normal Ur Leukocyte Esterase Negative Urine RBC 0 SEEN Urine WBC 0 SEEN Ur Squamous Epith Cells 0 SEEN Urine Bacteria 0 SEEN Urine Mucus 0 SEEN [facility] Lab Data Labs: Laborator (more content not included)... Normal [facility] M100.678on 04-28-2024 M100.678 SARS-CoV-2 (COVID 19 ) Negative INFLUENZA A Negative INFLUENZA B Negative RSV PCR Negative Normal [facility] Comment on above: Performed By: #### M 100.678 #### [facility] [address] [place], [address] Urinalysis, Completeon 04-28 RBC 0 SEEN Normal 0-5 [facility] Comment on above: Order Comment: CLEAN CATCH Performed By: #### L 400.0001 #### [facility] [address] [place], [address] BACTERIA 0 SEEN Normal None Seen [facility] Comment on above: Order Comment: CLEAN CATCH Performed By: #### L 400.0001 #### [facility] [address] [place], [address] EPI,SQUAMOUS 0 SEEN Normal 5-10 [facility] Comment on above: Order Comment: CLEAN CATCH Performed By: #### L 400.0001 #### [facility] [address] [place], [address] Mucus Ql (Urine sed) 0 SEEN Normal [facility] Comment on above: Order Comment: CLEAN CATCH Performed By: #### L 400.0001 #### [facility] [address] [place], [address] WBC 0 SEEN Normal 0-5 [facility] Comment on above: Order Comment: CLEAN CATCH Performed By: #### L 400.0001 #### [facility] [address] [place], [address] CNPNon 04-13-2024 JOSELYNN Telephone (OBJERRODWM) AMIRAH WOODARD ([id number]) 3 F Date Time Provider Department 04/13/24 [...] by LA DEL CASTILLO on 04/13/24 Normal [facility] nuchal translucency me asured by Quentin 04-03-2024 Indication First trimester anatomic survey Maternal obesity, BMI >30 Impression REMOTE READ The patient is referred for a first trimester anatomy scan including nuchal translucency measurement as clinically indicated. - Single, live, intrauterine . - [employer] rump length measurement is consistent with the [...] view: normal 4-chamber view with color: normal 2-zinine-odcbczy view: normal Abdominal cord insertion: normal Stomach: [...] Marietta Burr M.D. MATERNAL MEDICINE [facility] Radiology Study observation (narrative) [facility] BACTERIAL VAGINOSIS NAATon 0 03-28-2024 Lactobacillus crispatus+gasseri+imelda enii + Gardnerella vaginalis + Atopobium vaginae rRNA MEG+probe Ql (Vag fld) Not detected Normal Not detected [facility] Comment on above: Order Comment: Speci men Type: SWABOrdering Facility: [facility] Address: [address] [place] [address] Performed By: #### C VTV, BVAMP ####[facility] LABCLIA [id number] [place] [address] [place] FRANCO/TRICHOMONAS NAATon 0 03-28-2024 C. glabrata RNA MEG+probe Ql (Vag fld) Not detected Normal Not detected [facility] Comment on above: Order Comment: Speci men Type: SWABOrdering Facility: [facility] Address: [address] [place] [address] Performed By: #### C VTV, BVAMP ####[facility] LABCLIA [id number] [address] [place] Franco sp DNA MEG+probe Ql (Vag fld) Detected Abnormal Not detected [facility] Comment on above: Order Comment: Speci men Type: SWABOrdering Facility: [facility] Address: [address] [place] [address] Result Comment: The Franco species group target includes C. albicans, C. tropicalis, C. parapsilosis, and C. dubliniensis. Performed By: #### C VTV, BVAMP ####[facility] LABCLIA [id number] [address] [place] T. vaginalis DNA MEG+probe Ql (Unsp spec) Not detected Normal Not detected [facility] Comment on above: Order Comment: Speci men Type: SWABOrdering Facility: [facility] Address: [address] [place] [address] Performed By: #### C VTV, BVAMP ####[facility] LABCLIA [id number] [address] [place] CNPSherine 03-22-2024 JOSELYNN Telephone (OBGYWM) AMIRAH WOODARD ([id number]) 3 F Date Time Provider Department 03/22/24 [...] Date Reviewed: 03/19/2024 Reviewed by: Josiane Goodwin APRN.RING MAKER - Fully Assessed Reason for Visit: Medication Question [8818] Prescriptions as of 03/22/2024 - amoxicillin (AMOXIL) [...] by LA DEL CASTILLO on 03/22/24 Normal [facility] CNOVon 03-19-2024 CNOV Office Visit (PEDSWS ) AMIRAH WOODARD ([id number]) 3 F Date Time Provider Department 03/19/24 1:45 PM JOSIANE GOODWIN PEDSWS During your visit today, we recorded the following information about you: Temperature Pulse Respiration Weight 98.2 degrees 84/minute 16/minute 87.6 kg Josiane Goodwin, FACTORY MAINTENANCE MANAGER.RING MAKER 03/20/2024 9:03 PM Signed PEDIATRIC SICK VISIT [...] Date Reviewed: 03/19/2024 Reviewed by: Josiane Goodwin APRN.RING MAKER - Fully Assessed Reason for Visit: Cough [...] 03/19/2024 Rou (more content not included)... Normal [facility] CNOVon 03-13-2024 CN Office Visit (WSTR ) VANCEAMIRAH Darrin ([id number]) 3 F Date Time Provider Department 03/13/24 1:00 PM ROBERTO POWERS [facility] During your visit today, we recorded the following information about you: Temperature Pulse Respiration Blood pressure 97.6 degrees 87/minute 18/minute 110/72 Weight 87.1 kg Roberto Powers PA-C 03/13/2024 12:33 PM Signed This note was created using Tapatapriter. Subjective Amirah Clifford Vance is a 18 [...] the patient was advised to see her ROOM SERVICE CLERK for further evaluation and management. CLINICAL IMPRESSION: [...] Diagnosis:Sore throat [J02.9] Order(s):STREP A MOLECULAR (POC) [2551102] Order #: [id number]. #:[id number] Prescriptions as of 03/13/2024 - aspirin, enteric [...] teen in f*02/21/2024 Level of Service: OFFICE/OUTPATIENT [facility] 30 MINUTES [29681] Encounter Status:Closed by PRIYA, ROBERTO on 03/13/24 Normal [facility] [id number] PLUSon 03-13-2024 Cell-free DNA./Cell-free DNA.total Dosage of chromosome-specific cfDNA (cfDNA) [Molar fraction] 18% Normal [facility] Comment on above: Order Comment: Speci men Type: BLOOD SPECIMENOrdering Facility: [facility] Address: [facility] [place] [address] Performed By: #### M AT21 ####[facility] LABCLIA [id number] [place] [address] Chr 13+18+21+X+Y aneuploidy Dosage of chromosome-specific cfDNA Ql (cfDNA) Negative Normal [facility] Comment on above: Order Comment: Speci men Type: BLOOD SPECIMENOrdering Facility: [facility] Address: [address] [place] [address] Performed By: #### M AT21 ####[facility] LABCLIA [id number] [place] [address] Chr 21 trisomy Dosage of chromosome-specific cfDNA Ql (cfDNA) Negative Normal [facility] Comment on above: Order Comment: Speci men Type: BLOOD SPECIMENOrdering Facility: [facility] Address: [address] [place] [address] Performed By: #### M AT21 ####[facility] LABCLIA [id number] [place] [address] Chr X and Y aneuploidy risk Sequencing Ql (cfDNA) [Interp] Not detected Normal [facility] Comment on above: Order Comment: Speci men Type: BLOOD SPECIMENOrdering Facility: [facility] Address: [address] [place] [address] Result Comment: Not Detected Not Detected Performed By: #### M AT21 ####[facility] LABCLIA [id number] [place] [address] Citation Jn (Reference lab test) Comment Normal [facility] Comment on above: Order Comment: Speci men Type: BLOOD SPECIMENOrdering Facility: [facility] Address: [address] [place] [address] Result Comment: 1. P иван DILL, et al. Audra Med. 2012;14(3):296-305. 2. Jamel HARRELL et al. Prenat Diag. 2013;33(6):591-597. 3. Edvin C, et al. Clin Chem. 2015 Jun;61(4):608-616. 4. Jacey DILL, et al. Audra Med. 2011;13(11):913-920. 5. ACOG/SMFM Practice Bulletin No. 226, Dec 2019. Performed By: #### M AT21 ####[facility] LABCLIA [id number] [place] [address] Gestational age Estimated from conception date Spencer Normal [facility] Comment on above: Order Comment: Speci men Type: BLOOD SPECIMENOrdering Facility: [facility] Address: [address] [place] [address] Performed By: #### M AT21 ####[facility] LABCLIA [id number] [place] [address] GESTATIONALAGE AGE > OR = 9W Yes Normal [facility] Comment on above: Order Comment: Speci men Type: BLOOD SPECIMENOrdering Facility: [facility] Address: [address] [place] [address] Performed By: #### M AT21 ####[facility] LABCLIA [id number] [place] [address] Laboratory comment Jn (Report) Comment Normal [facility] Comment on above: Order Comment: Speci men Type: BLOOD SPECIMENOrdering Facility: [facility] Address: [address] [place] [address] Result Comment: The MaterniT(R) 21 PLUS laboratory-developed test (LDT) analyzes circulating cell-free DNA from a maternal blood sample. This test is used for screening purposes and not diagnostic. Clinical correlation is recommended. Validation data on twin pregnancies is limited and the ability of this test to detect aneuploidy in higher multiple gestations has not yet been validated. Performed By: #### M AT21 ####[facility] LABCLIA [id number] [place] [address] nursing service director name Nom (Provider) Comment Normal [facility] Comment on above: Order Comment: Speci men Type: BLOOD SPECIMENOrdering Facility: [facility] Address: [address] [place] [address] Result Comment: This specimen showed an expected representation of chromosome 21, 18 and 13 material. Clinical correlation is suggested. Comment Jean Claude Guzmán MD, PhD, Director, [employer] Performed By: #### M AT21 ####[facility] LABCLIA [id number] [place] [address] LIMITATIONS OF THE TEST Comment Normal [facility] Comment on above: Order Comment: Speci men Type: BLOOD SPECIMENOrdering Facility: [facility] Address: [address], [place] [address] Result Comment: Steve shin the results of [...] Performed By: #### M AT21 ####[facility] LABCLIA [id number] [place] [id number] Monosomy X risk Dosage of chromosome-specific cfDNA Ql (Plasma cell-free+WBC DNA) [Interp] Not detected Normal [facility] Comment on above: Order Comment: Speci men Type: BLOOD SPECIMENOrdering Facility: [facility] Address: [address] [place] [address] Performed By: #### M AT21 ####[facility] LABCLIA [id number] [place] [id number] NEGATIVE PREDICTIVE VALUE Note Normal [facility] Comment on above: Order Comment: Speci men Type: BLOOD SPECIMENOrdering Facility: [facility] Address: [address] [place] [address] Result Comment: The Negative Predictive Value (NPV) for trisomy 21, 18, and 13 is greater than 99%. The NPV for SCA and ESS cannot be calculated as SCA and ESS are only reported when an abnormality is detected. Performed By: #### M AT21 ####[facility] LABCLIA [id number] [place] [address] NOTE Comment Normal [facility] Comment on above: Order Comment: Speci men Type: BLOOD SPECIMENOrdering Facility: [facility] Address: [address] [place] [address] Result Comment: See Notes [employer] is a subsidiary of [employer], using the brand [employer]. This test was developed and its performance characteristics determined by [employer]. It has not been cleared or approved by the Food and Drug Administration. This laboratory is certified under the Clinical Laboratory Improvement Amendments (CLIA) as qualified to perform high complexity clinical laboratory testing and accredited by the [employer] ([employer]). If there is future clinical need for adding MaterniT GENOME testing, this specimen will be available until term. [facility] samples will not be retained beyond 60 days. [facility] patients will have to send a new sample for re-sequencing ([facility] Test Code: [id number]). Performed By: #### M AT21 ####[facility] LABCLIA [id number] [place] [address] PERFORMANCE CHARACTERISTICS Note Normal [facility] Comment on above: Order Comment: Violeta alvarez Type: BLOOD SPECIMENOrdering Facility: [facility] Address: [address], [place] [address] Result Comment: ! Sex ! Accuracy: 99.4% [...] gestation only. Performed By: #### M AT21 ####[facility] LABMetagoIA [id number] [place] [address] POSITIVE PREDICTIVE VALUE N/A Normal [facility] Comment on above: Order Comment: Speci antonio Type: BLOOD SPECIMENOrdering Facility: [facility] Address: [address] [place] [address] Performed By: #### M AT21 ####[facility] LABCLIA [id number] [place] [address] Reference Lab Test Method Comment Normal [facility] Comment on above: Order Comment: Violeta alvarez Type: BLOOD SPECIMENOrdering Facility: [facility] Address: [address] [place] [address] Result Comment: See Notes Circulating cell-free DNA [...] and 22. Performed By: #### M AT21 ####[facility] LABCLIA [id number] [place] [address] Sex Dosage of chromosome-specific cfDNA Nom (cfDNA) Comment Normal [facility] Comment on above: Order Comment: Speci men Type: BLOOD SPECIMENOrdering Facility: [facility] Address: [address] [place] [address] Result Comment: Cons istent with Male Performed By: #### M AT21 ####[facility] LABCLIA [id number] [place] [address] Test performance information Jn (Unsp spec) Comment Normal [facility] Comment on above: Order Comment: Speci men Type: BLOOD SPECIMENOrdering Facility: [facility] Address: [address] [place] [address] Result Comment: The performance characteristics of the MaterniT(R) 21 PLUS laboratory-developed test (LDT) have been determined in a clinical validation study with women at increased risk for chromosomal aneuploidy.[1-4] Performed By: #### M AT21 ####[facility] LABCLIA [id number] [place] [address] Trisomy 13 risk Dosage of chromosome-specific cfDNA Ql (cfDNA) [Interp] Negative Normal [facility] Comment on above: Order Comment: Speci men Type: BLOOD SPECIMENOrdering Facility: [facility] Address: [address] [place] [address] Performed By: #### M AT21 ####[facility] LABCLIA [id number] [place] [address] Trisomy 18 risk Dosage of chromosome-specific cfDNA Ql (Plasma cell-free+WBC DNA) [Interp] Negative Normal [facility] Comment on above: Order Comment: Speci men Type: BLOOD SPECIMENOrdering Facility: [facility] Address: [address] [place] [address] Performed By: #### M AT21 ####[facility] LABCLIA [id number] [place] [address] STREP A MOLECULAR (POC)on Procedural Control Valid [facility] Strep A (POCT) Negative Negative [facility] CBC W Auto Differential pane l (Bld)on 02-24-2024 Basophils (Bld) [#/Vol] 0.07 10*3/uL Normal <0.11 [facility] Comment on above: Order Comment: Speci men Type: BLOOD SPECIMENOrdering Facility: [facility] Address: [address] [place] [address] Performed By: #### 5 7021-8 ####[facility] ANDERSONLIA [id number] [place] [address] [place] Basophils/100 WBC (Bld) 0.7 % Normal [facility] Comment on above: Order Comment: Speci men Type: BLOOD SPECIMENOrdering Facility: [facility] Address: [address] [place] [address] Performed By: #### 5 7021-8 ####[facility]ERSON[facility] [id number] [place] [address] [place] Differential cell count method Nom (Bld) Auto Normal [facility] Comment on above: Order Comment: Speci men Type: BLOOD SPECIMENOrdering Facility: [facility] Address: [address] [place] [address] Performed By: #### 5 7021-8 ####[facility] MILLWNCLIA [id number] [place] [address] [place] Eosinophils (Bld) [#/Vol] 0.24 10*3/uL Normal <0.46 [facility] Comment on above: Order Comment: Speci men Type: BLOOD SPECIMENOrdering Facility: [facility] Address: [address] [place] [address] Performed By: #### 5 7021-8 ####[facility] MILLWNCLIA [id number] [place] [address] [place] Eosinophils/100 WBC (Bld) 2.4 % Normal [facility] Comment on above: Order Comment: Speci men Type: BLOOD SPECIMENOrdering Facility: [facility] Address: [address] [place] [address] Performed By: #### 5 7021-8 ####[facility]ITALSONIA [id number] [place] [address] [place] Erythrocyte distribution width (RBC) [Ratio] 14.0 % Normal 11.5-15.0 [facility] Comment on above: Order Comment: Speci men Type: BLOOD SPECIMENOrdering Facility: [facility] Address: [address] [place] [address] Performed By: #### 5 7021-8 ####[facility]ITAL[facility]IA [id number] [place] [address] [place] Hematocrit (Bld) [Volume fraction] 41.8 % Normal 36.0-46.0 [facility] Comment on above: Order Comment: Speci men Type: BLOOD SPECIMENOrdering Facility: [facility] Address: [address] [place] [address] Performed By: #### 5 7021-8 ####[facility]OSPITALNCALMITA [id number] [place] [address] [place] Hemoglobin (Bld) [Mass/Vol] 13.9 g/dL Normal 11.5-15.5 [facility] Comment on above: Order Comment: Speci men Type: BLOOD SPECIMENOrdering Facility: [facility] Address: [address] [place] [address] Performed By: #### 5 7021-8 ####[facility]ITALNCLIA [id number] [place] [address] [place] Immature granulocytes (Bld) [#/Vol] 0.03 10*3/uL Normal <0.10 [facility] Comment on above: Order Comment: Speci men Type: BLOOD SPECIMENOrdering Facility: [facility] Address: [address] [place] [address] Performed By: #### 5 7021-8 ####[facility] MICAHBrunaNCMILVIA [id number] [place] [address] [place] Immature granulocytes/100 WBC (Bld) 0.3 % Normal [facility] Comment on above: Order Comment: Speci men Type: BLOOD SPECIMENOrdering Facility: [facility] Address: [address] [place] [address] Performed By: #### 5 7021-8 ####[facility]OSPITALANNAUNIVERSITY [facility] [id number] [place] [address] [place] Lymphocytes (Bld) [#/Vol] 2.44 10*3/uL Normal 1.00-4.00 [facility] Comment on above: Order Comment: Speci men Type: BLOOD SPECIMENOrdering Facility: [facility] Address: [address] [place] [address] Performed By: #### 5 7021-8 ####[facility] [id number] [place] [address] [place] Lymphocytes/100 WBC (Bld) 24.0 % Normal [facility] Comment on above: Order Comment: Speci men Type: BLOOD SPECIMENOrdering Facility: [facility] Address: [address] [place] [address] Performed By: #### 5 7021-8 ####[facility] HOSPITALA [id number] [place] [address] [place] MCH (RBC) [Entitic mass] 28.2 pg Normal 26.0-34.0 [facility] Comment on above: Order Comment: Speci men Type: BLOOD SPECIMENOrdering Facility: [facility] Address: [address] [place] [address] Performed By: #### 5 7021-8 ####[facility] MARYBrunaNCLIA [id number] [place] [address] [place] MCHC (RBC) [Mass/Vol] 33.3 g/dL Normal 30.5-36.0 [facility] Comment on above: Order Comment: Speci men Type: BLOOD SPECIMENOrdering Facility: [facility] Address: [address] [place] [address] Performed By: #### 5 7021-8 ####[facility] HOSPITALNCA [id number] [place] [address] [place] MCV (RBC) [Entitic vol] 84.8 fL Normal 80.0-100.0 [facility] Comment on above: Order Comment: Speci men Type: BLOOD SPECIMENOrdering Facility: [facility] Address: [address] [place] [address] Performed By: #### 5 7021-8 ####[facility] [id number] [place] [address] [place] Monocytes (Bld) [#/Vol] 0.59 10*3/uL Normal <0.87 [facility] Comment on above: Order Comment: Speci men Type: BLOOD SPECIMENOrdering Facility: [facility] Address: [address] [place] [address] Performed By: #### 5 7021-8 ####[facility] ANDERSONLIA [id number] [address] [place] Monocytes/100 WBC (Bld) 5.8 % Normal [facility] Comment on above: Order Comment: Speci men Type: BLOOD SPECIMENOrdering Facility: [facility] Address: [address] [place] [address] Performed By: #### 5 7021-8 ####[facility]PITALNCUNIVERS[facility] [id number] [place] [address] [place] Neutrophils (Bld) [#/Vol] 6.81 10*3/uL Normal 1.45-7.50 [facility] Comment on above: Order Comment: Speci men Type: BLOOD SPECIMENOrdering Facility: [facility] Address: [address] [place] [address] Performed By: #### 5 7021-8 ####[facility] ANDERSONLIA [id number] [place] [address] [place] Neutrophils/100 WBC (Bld) 66.8 % Normal [facility] Comment on above: Order Comment: Speci men Type: BLOOD SPECIMENOrdering Facility: [facility] Address: [address] [place] [address] Performed By: #### 5 7021-8 ####[facility]ITALNCUNIV[facility] [id number] [place] [address] [place] Nucleated RBC (Bld) [#/Vol] 10*3/uL Normal <0.01 [facility] Comment on above: Order Comment: Speci men Type: BLOOD SPECIMENOrdering Facility: [facility] Address: [address] [place] [address] Performed By: #### 5 7021-8 ####[facility]ITALNCLIA [id number] [place] [address] [place] Nucleated RBC/100 WBC (Bld) [Ratio] 0.0 /100 WBC Normal [facility] Comment on above: Order Comment: Speci men Type: BLOOD SPECIMENOrdering Facility: [facility] Address: [address] [place] [address] Performed By: #### 5 7021-8 ####[facility]PITALNCLI [id number] [place] [address] [place] Platelet mean volume (Bld) [Entitic vol] 8.5 fL Low 9.0-12.7 [facility] Comment on above: Order Comment: Speci men Type: BLOOD SPECIMENOrdering Facility: [facility] Address: [address] [place] [address] Performed By: #### 5 7021-8 ####[facility] LEAHWNCLIA [id number] [place] [address] [place] Platelets (Bld) [#/Vol] 304 10*3/uL Normal 150-400 [facility] Comment on above: Order Comment: Speci men Type: BLOOD SPECIMENOrdering Facility: [facility] Address: [address] [place] [address] Performed By: #### 5 7021-8 ####[facility]ITALNCLIA [id number] [place] [address] [place] RBC (Bld) [#/Vol] 4.93 10*6/uL Normal 3.90-5.20 [facility] Comment on above: Order Comment: Speci men Type: BLOOD SPECIMENOrdering Facility: [facility] Address: [address] [place] [address] Performed By: #### 5 7021-8 ####[facility]ITALNCLIA [id number] [place] [address] [place] WBC (Bld) [#/Vol] 10.18 10*3/uL Normal 3.70-11.00 [facility] Comment on above: Order Comment: Speci men Type: BLOOD SPECIMENOrdering Facility: [facility] Address: [address] [place] [address] Performed By: #### 5 7021-8 ####[facility]ITALNCLIA [id number] [place] [address] [place] HBV surface Ag Ser Qlon 12-2 HBV surface Ag Ql (S) Negative Normal Negative [facility] Comment on above: Order Comment: Speci men Type: BLOOD SPECIMENOrdering Facility: [facility] Address: [address] [place] [address] Performed By: #### 5 195-3, 59852-1, 16508-6 ####[facility] LABCLIA [id number] [place] [address] [place] HCV Ab Ser Qlon 02-24-2024 HCV Ab Ql (S) Negative Normal Negative [facility] Comment on above: Order Comment: Speci men Type: BLOOD SPECIMENOrdering Facility: [facility] Address: [address] [place] [address] Result Comment: The result suggests no evidence of active infection with Hepatitis C virus. Should recent infection be suspected, repeat testing may be considered 4-6 weeks after this draw. Performed By: #### 1 6128-1 ####[facility] LABCLIA [id number] [place] [address] [place] HIV 1+2 Ab IA Qlon HIV 1 and 2 Ab IA.rapid Nom (S/P/Bld) Normal [facility] Comment on above: Order Comment: Speci men Type: BLOOD SPECIMENOrdering Facility: [facility] Address: [address] [place] [address] Result Comment: Test not indicated. Performed By: #### 5 195-3, 51089-5, 23988-2 ####[facility] LABCLIA [id number] [place] [address] [place] HIV 1+2 Ab+HIV1 p24 Ag IA Ql Non-Reactive Normal Nonreactive [facility] Comment on above: Order Comment: Speci men Type: BLOOD SPECIMENOrdering Facility: [facility] Address: [address] [place] [address] Performed By: #### 5 195-3, 87346-3, 60458-8 ####[facility] LABCLIA [id number] [place] [address] [place] HIV immunoassay testing algorithm interpretation (S/P/Bld) [Interp] Normal [facility] Comment on above: Order Comment: Speci men Type: BLOOD SPECIMENOrdering Facility: [facility] Address: [address] [place] [address] Result Comment: No e vidence of HIV-1 or HIV-2 infection. Should recent infection be suspected, repeat testing may be considered 2-3 weeks after this draw. [place] Rev. Code 3701.243(E): This information has been [...] or diagnoses. Performed By: #### 5 195-3, 98962-1, 96333-9 ####[facility] LABCLIA [id number] [place] [address] [place] HbA1c (Bld)on 02-24-2024 Average glucose Estimated from glycated hemoglobin (Bld) [Mass/Vol] 94 mg/dL Normal [facility] Comment on above: Order Comment: Speci men Type: SWAB [facility] Address: [address] [place] [address] Result Comment: eAG: (Estimated average glucose) is a calculated value from HgbA1c and is retail field representative of the average blood glucose level in the last 2-3 month period. Performed By: #### C VTV, BVAMP #### [facility] LAB CLIA [id number] [address] [place] [address] [place] HbA1c (Bld) [Mass fraction] 4.9 % Normal 4.3-5.6 [facility] Comment on above: Order Comment: Speci men Type: SWAB [facility] Address: [address] [place] [address] Result Comment: [place] Diabetes Association guidelines indicate that patients with HgbA1c in the range 5.7-6.4% are at increased risk for development of diabetes, and intervention by lifestyle modification may be beneficial. HgbA1c greater or equal to 6.5% is considered diagnostic of diabetes. Performed By: #### C VTV, BVAMP #### [facility] CLIA [id number] [address] [place] [address] [place] RUBELLA IGG ANTIBODYon 02-23 RUBELLA IGG AB, QUAL Positive Normal Positive [facility] Comment on above: Order Comment: Speci men Type: BLOOD SPECIMENOrdering Facility: [facility] Address: [address] [place] [address] Result Comment: The result suggests recent or past exposure to Rubella virus or history of Rubella vaccination. Positive result may also be seen due to presence of passively-transferred antibodies. Please correlate with patient's history. Performed By: #### R UBIGG ####[facility] LABCLIA [id number] [place] [address] [place] Reagin and Treponema pallidu m IgG and IgM [Interp]on 02-24-2024 T. pallidum IgG+IgM IA Ql (S) Non-Reactive Normal Nonreactive [facility] Comment on above: Order Comment: Speci [facility] Type: BLOOD SPECIMENOrdering Facility: [facility] Address: [address] [place] [address] Performed By: #### 5 195-3, 63375-9, 30737-2 ####[facility] LABCLIA [id number] [place] [address] [place] Reagin+T pallidum IgG+IgM Se rPl-Impon 02-24-2024 Reagin and Treponema pallidum IgG and IgM [Interp] Cannot exclude recent Treponemal infection if specimen collected within 7-10 days after appearance of suspect lesions or 2-3 weeks after an exposure. Clinical correlation is required. Normal [facility] Comment on above: Order Comment: Speci men Type: BLOOD SPECIMENOrdering Facility: [facility] Address: [address] [place] [address] Performed By: #### 5 195-3, 79133-8, 86608-7 ####[facility] LABCLIA [id number] [place] [address] [place] TYPE + SCREEN PRENATALon ABO O Normal [facility] Comment on above: Order Comment: Speci men Type: SWAB [facility] Address: [address] [place] [address] Performed By: #### C VTV, BVAMP #### [facility] CLIA [id number] [address] [place] [address] [place] Rh Nom (Bld) Positive Normal [facility] Comment on above: Order Comment: Speci men Type: SWAB [facility] Address: [address] [place] [address] Performed By: #### C VTV, BVAMP #### [facility] CLIA [id number] [address] [place] [address] [place] TYPE AND SCREEN EXPIRATION 02/27/2024 23:59 Normal [facility] Comment on above: Order Comment: Speci men Type: SWAB [facility] Address: [address] [place] [address] Performed By: #### C VTV, BVAMP #### [facility] CLIA [id number] [address] [place] [address] [place] Urgent Care Visit Reporton 1 04-26-2023 Urgent Care Visit Report [facility] [address], [address] [place] [address] OFFICE VISIT Date of Service: 02/24/24 MR#: [id number] Acct: [id number] Name: AMIRAH WOODARD Rep #: [id number] 40 : 2005 Provider: CATRACHO Jacobo Age/Sex: 18/F [place] [facility] [place] Status: Signed Intake Vital Signs 11/14/23 09:57 Height 5 ft 3 in Intake Visit Reasons: [facility]/ [facility] Chief Complaint: Preemployment physical Accompanied by: Self Allergies No Known Allergies Allergy (Verified 02/24/24 12:06) Medications ???Medication ???Instructions ???Recorded ???Confirmed ???Type Lactobacillus 25 billion cap PO 10/04/23 11/15/23 History cell-Bifido 25 billion howc-XPB-irskz capsule albuterol sulfate 90 mcg/actuation inhalation 10/04/23 [...] Signature: Date (if applicable) CC: [facility] Rodrick 02-23-2024 MATTI Telephone (Storify[facility]BA) AMIRAH WOODARD ([id number]) 3 F Date Time Provider Department 02/23/24 [...] Date Reviewed: 02/21/2024 Reviewed by: Nilda Stiles APRN.RING MAKER - Fully Assessed Reason for Visit: PRAF [...] Status:Closed by PAULINE AU on 02/23/24 Normal [facility] BACTERIAL VAGINOSIS NAATon 1 2- Lactobacillus crispatus+gasseri+imelda enii + Gardnerella vaginalis + Atopobium vaginae rRNA MEG+probe Ql (Vag fld) Not detected Normal Not detected [facility] Comment on above: Order Comment: Speci men Type: SWABOrdering Facility: [facility] Address: [address] [place] [address] Performed By: #### Cherelle VAMP, 37933-4 ####[facility] LABCLIA [id number] [place] [address] [place] Bacteria Ur Culton [...] technique or straight catheterization for???urine???collecti on. Normal [facility] Comment on above: Performed By: #### 6 30-4 ####[facility] LABCLIA [id number] [place] [address] [place] C. trachomatis+N. gonorrhoea e DNA MEG+probe Ql (Unsp spec)on 02-21-2024 C. trachomatis rRNA MEG+probe Ql (Unsp spec) Not detected Normal Not detected [facility] Comment on above: Order Comment: Speci men Type: SWABOrdering Facility: [facility] Address: [address] [place] [address] Performed By: #### Cherelle VAMP, 42075-3 ####[facility] LABCLIA [id number] [place] [address] [place] N. gonorrhoeae rRNA MEG+probe Ql (Unsp spec) Not detected Normal Not detected [facility] Comment on above: Order Comment: Speci men Type: SWABOrdering Facility: [facility] Address: [address] [place] [address] Performed By: #### Cherelle VAMP, 06602-1 ####[facility] LABCLIA [id number] [place] [address] [place] FRANCO/TRICHOMONAS NAATon 1 2-17-2024 C. glabrata RNA MEG+probe Ql (Vag fld) Not detected Normal Not detected [facility] Comment on above: Order Comment: Speci men Type: SWAB Ordering Facility: [facility] Address: [address] [place] [address] Performed By: #### C VTV, BVAMP #### [facility] CLIA [id number] [address] [place] [address] [place] Franco sp DNA MEG+probe Ql (Vag fld) Not detected Normal Not detected [facility] Comment on above: Order Comment: Speci men Type: SWAB Ordering Facility: [facility] Address: [address] [place] [address] Result Comment: The Franco species group target includes C. albicans, C. tropicalis, C. parapsilosis, and C. dubliniensis. Performed By: #### C VTV, BVAMP #### [facility] LAB CLIA [id number] [address] [place] [address] [place] T. vaginalis DNA MEG+probe Ql (Unsp spec) Not detected Normal Not detected [facility] Comment on above: Order Comment: Speci men Type: SWAB [facility]ing Facility[facility] Address: [address] [place] [address] Performed By: #### C VTV, BVAMP #### [facility] CLIA [id number] [address] [place] [address] [place] CNCOon 02-21-2024 CNCO Letter Text Normal [facility] POC REGIONAL FORESTER ULTRASOUNDon 02-21-20 24 Indication Confirmation of intrauterine [...] Nilda Stiles CNP MATERNAL MEDICINE [facility] Radiology Study observation (narrative) [facility] CNCOon 02-01-2024 CNCO Letter Text Normal [facility] CNOVon 01-30-2024 CNOV Office Visit (OBGYWM ) AMIRAH WOODARD ([id number]) 3 F Date Time Provider Department 01/30/24 [...] L0 SAB0 IAB0 Ectopic0 Multiple0 Live Births0 Risk Assessment Consultant History LMP: 12/09/2023 (Exact Date), Having periods Age at Menarche: Age at First : Age at Menopause: Risk Assessment Consultant History Comments: Sexual Activity: Yes; Male Contraception: [...] (FLONASE) 50 mcg/actuation nasal spray Use 1 [place] in each nostril once daily. loratadine (CLARITIN) [...] result positive [Z32.01] Order(s):UA DIP,URINE HCG (POC) [[id number]] Order #: [id number] #:[id number] Prescriptions as of 01/30/2024 - vit no.124/iron/folic [...] (FLONASE) 50 mcg/actuation nasal spray Use 1 [place] in each nostril once daily. - loratadine [...] NOB. Follow (more content not included)... Normal [facility] UA DIP,URINE HCG (POC)on Beta HCG ( test) Ql (U) Positive Abnormal Negative [facility] Comment on above: Location:[facility], [address], [place], [address] Interpretation and review of laboratory results Abnormal [facility] Medical Concierge (POCT) Internal QC OK [facility] Location:[facility], [address], [place], [address] [facility] C[facility]N Telephone (OBGYWM) AMIRAH WOODARD ([id number]) 3 F Date Time Provider Department 12/15/23 [...] NILDA STILES Pharmacy Information Pharmacy Address Telephone [facility] [address] [place] [address] Allergies As of Date: 12/15/2023 [...] (FLONASE) 50 mcg/actuation nasal spray Use 1 [place] in each nostril once daily. - loratadine [...] Status:Closed by VIVIAN ADAMS on 12/15/23 Normal [facility] BACTERIAL VAGINOSIS NAATon 1 Lactobacillus crispatus+gasseri+imelda enii + Gardnerella vaginalis + Atopobium vaginae rRNA MEG+probe Ql (Vag fld) Negative Normal Negative for bacterial vaginosis [facility] Comment on above: Order Comment: Speci men Type: SWAB [facility]ing [facility] Address: [address] [place] [address] Performed By: #### C VTV, BVAMP #### [facility] CLIA [id number] [address] [place] [address] [place] FRANCO/TRICHOMONAS NAATon 1 C. glabrata RNA MEG+probe Ql (Vag fld) Negative Normal Negative for Franco glabrata [facility] Comment on above: Order Comment: Speci men Type: SWAB [facility]ing [facility] Address: [address] [place] [address] Performed By: #### C VTV, BVAMP #### [facility] CLIA [id number] [address] [place] [address] [place] Franco sp DNA MEG+probe Ql (Vag fld) Negative Normal Negative for Franco species [facility] Comment on above: Order Comment: Speci men Type: SWAB [facility]ing Facility[facility] Address: [address] [place] [address] Performed By: #### C VTV, BVAMP #### [facility] CLIA [id number] [address] [place] [address] [place] T. vaginalis DNA MEG+probe Ql (Unsp spec) Negative Normal Negative for Trichomonas vaginalis by amplification [facility] Comment on above: Order Comment: Speci men Type: SWAB [facility]ing Facility: [facility] Address: [address] [place] [address] Performed By: #### C VTV, BVAMP #### [facility] LAB CLIA [id number] [address] [place] [address] [place] CNOVon 12-12-2023 CNOV Office Visit (OBGYWM ) AMIRAH WOODADR ([id number]) 3 F Date Time Provider Department 12/12/23 3:45 PM NILDA STILES OBGYWM During your visit today, we recorded the following information about you: Blood pressure Weight Last Period 122/66 84.8 kg 12/09/23 Nilda Stiles APRN.RING MAKER 12/12/2023 4:43 PM 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 Amirah Woodard is a 18 year old [...] L0 SAB0 IAB0 Ectopic0 Multiple0 Live Births0 Risk Assessment Consultant History LMP: 10/08/2023 (Exact Date), Having periods Age at Menarche: Age at First : Age at Menopause: Risk Assessment Consultant History Comments: Sexual Activity: Yes; Male Contraception: [...] (FLONASE) 50 mcg/actuation nasal spray Use 1 [place] in each nostril once daily. loratadine (CLARITIN) [...] discussed with the Patient or Patient's Authorized Brand Ambassador. As applicable, any other physician, advance practice provider, medical student, or other health professional student that will be observing or involved in the sensitive examination for educational or training purposes was discussed with the Patient or Authorized Brand Ambassador. The Patient or Authorized Brand Ambassador has agreed to proceed with the sensitive examination. (Sensitive examination includes inspection and/or palpation of the breasts, pelvis, prostate and anorectal regions). EXAM: LMP 10/08/2023 GENERAL: pleasant, female in no apparent distress HEENT: Normocephalic, atraumatic, mucus membranes moist, and no lesions CHEST: Normal inspiratory effort PELVIC: external genitalia normal, normal Bartholin's glands, urethra, [place]'s glands, no vulvar lesions, no cervical lesions, [...] notify patient of test results. Nilda Stiles APRN.RING MAKER Medical Decision Making: Problems: Moderate: New problem with uncertain prognosis Data: U (more content not included)... Normal [facility] T3Free SerPl-mCncon 12-12-19 24 Free T3 [Mass/Vol] 3.2 pg/mL Normal 2.3-4.1 [facility] Comment on above: Order Comment: Speci men Type: BLOOD SPECIMENOrdering Facility: [facility] Address: [address] [place] [address] Performed By: #### 3 051-0, 7, 3 ####[facility] LABCLIA [id number] [place] [address] [place] T4 Free SerPl-mCncon 024 Free T4 [Mass/Vol] 1.2 ng/dL Normal 0.9-1.7 [facility] Comment on above: Order Comment: Speci men Type: BLOOD SPECIMENOrdering Facility: [facility] Address: [address] [place] [address] Performed By: #### 3 051-0, 3023-7, 3 ####[facility] LABCLIA [id number] [place] [address] [place] THYROID PEROXIDASE ANTIBODYo n 12-12-2023 TPO Ab Qn [IU]/mL Normal <5.6 [facility] Comment on above: Order Comment: Speci men Type: BLOOD SPECIMENOrdering Facility: [facility] Address: [address] [place] [address] Result Comment: Thyr oid Peroxidase Antibody test is used as an aid in diagnosis of autoimmune thyroid disease. Clinical correlation is required. Performed By: #### M ICRO ####[facility] LABCLIA [id number] [place] [address] [place] TSH SerPl-aCncon 12-12-2023 TSH Qn 1.050 m[IU]/L Normal 0.510-4.300 [facility] Comment on above: Order Comment: Speci men Type: BLOOD SPECIMENOrdering Facility: [facility] Address: [address] [place] [address] Result Comment: If t he patient is , TSH reference range varies by gestational period: First Trimester (weeks 9-12): 0.180-2.990 mIU/L Second Trimester: 0.110-3.980 mIU/L Third Trimester: 0.480-4.710 mIU/L Dayo Wagner, et al. A Practical Approach for the Verifications and Determination of Site- and Trimester-Specific Reference Intervals for Thyroid Function tests in . Thyroid, 2019:29:3:412-420. Edmar E, et al. 2017 Guidelines of the [place] Thyroid Association for the Diagnosis and Management of Thyroid Disease during and the . Thyroid, 2017:27:3:315-389. Reference ranges were not locally established for this patient's age group. The normal values are based on the following source: Yarelis W, Chante V. Reference Ranges for Adults and Children: Pre-analytical Considerations. [facility] Performed By: #### 3 051-0, 3024-7, 3016-3 ####[facility] LABCLIA [id number] [place] [address] [place] UROGENITAL UREAPLASMA AND MY COPLASMA SPECIES BY PCR, FOR GENITAL, RECTAL, URINE SAMPLESon 12-12-2023 M GENITALIUM PCR Not detected Normal [facility] Comment on above: Order Comment: Speci men Type: SWABOrdering Facility: [facility] Address: [address] [place] [address] Result Comment: INTE RPRETIVE INFORMATION: Urogenital Ureaplasma and Mycoplasma Species by PCR A negative result does not rule out the presence of PCR inhibitors in the patient specimen or test-specific nucleic acid in concentrations below the level of detection by this test. This test was developed and its performance characteristics determined by [employer]. It has not been cleared or approved by the [place] Food and Drug Administration. This test was performed in a CLIA certified laboratory and is intended for clinical purposes. Performed By: [email or web address] [address] [place] [address] Sales Professional Bilingual: Jonathan Guzman MD, PhD [facility] Number: [id number] Performed By: #### U RMPCR ####[facility]IES[facility]IA [id number] [place] [address] MYCOPLAS HOMINIS PCR Not detected Normal [facility] Comment on above: Order Comment: Speci men Type: SWABOrdering Facility: [facility] Address: [address] [place] [address] Performed By: #### U RMPCR ####[facility] [id number] [place] [address] UR PARVUM PCR Detected Abnormal [facility] Comment on above: Order Comment: Speci men Type: SWABOrdering Facility: [facility] Address: [address] [place] [address] Performed By: #### U RMPCR ####[facility] [id number] [place] [address] UR UREALYTICUM PCR Not detected Normal [facility] Comment on above: Order Comment: Speci men Type: SWABOrdering Facility: [facility] Address: [address] [place] [address] Performed By: #### U RMPCR ####[facility] [id number] [place] [address] UR/MYCO SOURCE Genital Normal [facility] Comment on above: Order Comment: Speci men Type: SWABOrdering Facility: [facility] Address: [address] [place] [address] Performed By: #### U RMPCR ####[facility]IESCLIA [id number] [place] [address] Ankle min 3 Viewson 11-15-19 Ankle min 3 Views [facility] [address] [place] [address] Ankle min 3 Views MR#: [id number] Acct: [id number] Name: AMIRAH WOODARD Rep #: [id number] : 2005 F 18 From: Bruno Méndez MD PCP: Dr. Que Chavez MD Status: DEP AMB Study: Ankle min 3 Views Date of Exam: 11/15/23 Exam# [id number] Ordering Dr: Antwon Miranda [place] [id number] STUDY: X-RAY - LEFT ANKLE REASON FOR [...] 15:51 EDT Reading Location ID and State: [address] [place] [address] , Service support , CC: Dr. Que Chavez MD; Dr. Antwon Miranda MD Director [employer]: Signed Normal [facility] Orthopedic Visit Reporton Orthopedic Visit Report [facility] [facility] [address] [place] [address] OFFICE VISIT Date of Service: 11/15/23 MR#: [id number] Acct: [id number] Name: AMIRAH WOODARD Rep #: [id number] : 2005 Provider: Dr. Antwon sebastian MD Age/Sex: 18/F [place] [facility] [place] Status: Signed Intake Vital Signs 11/14/23 09:57 Height 5 ft 3 in Intake Visit Reasons: LEFT LEG Chief Complaint: left ankle Accompanied by: Self Is patient in pain?: No Allergies No Known Allergies Allergy (Verified 11/15/23 15:06) Medications ???Medication ???Instructions ???Recorded ???Confirmed ???Type Lactobacillus 25 billion cap PO 10/04/23 11/15/23 History cell-Bifido 25 billion vmru-XZO-oypmp capsule albuterol sulfate 90 mcg/actuation inhalation 10/04/23 [...] Cosigner Signature: Date (if applicable) CC: Normal [facility] CNOVon 10-31-2023 CNOV Office Visit (PEDSWS ) AMIRAH WOODARD ([id number]) 3 F Date Time Provider Department 10/31/23 [...] button - completed 7 day course [employer], 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 loratadine (CLARITIN) [...] satisfactory Screening tools reviewed and discussed with patient/mbygmh-HJN-0 and Social Determinants of Health. Please see Patient Entered Data. SDOH: Food Insecurity: No F (more content not included)... Normal [facility] Ankle min 3 Viewson 10-18-19 Ankle min 3 Views [facility] [address] [place] [address] Ankle min 3 Views MR#: [id number] Acct: [id number] Name: AMIRAH WOODARD Rep #: [id number] : 2005 F 18 From: Feliciano narayan MD PCP: Dr. Que Chavez MD Status: DEP AMB Study: Ankle min 3 Views Date of Exam: 10/18/23 Exam# [id number] Ordering Dr: Antwon Miranda [place] [id number] INDICATION: fu EXAMINATION/TECHNIQUE: X-RAY - LEFT XR [...] Que Chavez MD; Dr. Antwon Miranda MD Director [employer]: Signed Normal [facility] Orthopedic Visit Reporton Orthopedic Visit Report [facility] [address] [place] [address] [address] [place] [address] OFFICE VISIT Date of Service: 10/18/23 MR#: [id number] Acct: [id number] Name: AMIRAH WOODARD Rep #: [id number] : 2005 Provider: Dr. Antwon sebastian MD Age/Sex: 18/F [place] [facility] [place] Status: Signed Intake Vital Signs 10/03/23 08:06 Height 5 ft 3 in Intake Visit Reasons: LEFT LEG Accompanied by: Mother Is patient in pain?: No Allergies No Known Allergies Allergy (Verified 10/18/23 10:05) Medications ???Medication ???Instructions ???Recorded ???Confirmed ???Type Lactobacillus 25 billion cap PO 10/04/23 10/18/23 History cell-Bifido 25 billion xobc-RDA-hmglq capsule albuterol sulfate 90 mcg/actuation inhalation 10/04/23 [...] Cosigner Signature: Date (if applicable) CC: Normal [facility] STREP A MOLECULAR (POC)on Procedural Control Valid [facility] Strep A (POCT) Negative Negative [facility] BACTERIAL VAGINOSIS NAATon 0 07-12-2023 Interpretation and review of laboratory results Abnormal [facility] Lactobacillus crispatus+gasseri+imelda enii + Gardnerella vaginalis + Atopobium vaginae rRNA MEG+probe Ql (Vag fld) Positive Abnormal Negative for bacterial vaginosis [facility] FRANCO/TRICHOMONAS NAATon 0 07-12-2023 C. glabrata RNA MEG+probe Ql (Vag fld) Negative Negative for Franco glabrata [facility] Franco sp DNA MEG+probe Ql (Vag fld) Negative Negative for Franco species [facility] Interpretation and review of laboratory results Normal [facility] T. vaginalis DNA MEG+probe Ql (Unsp spec) Negative Negative for Trichomonas vaginalis by amplification [facility] US Pelvis transvaginalon [facility] BACTERIAL VAGINOSIS NAATon 0 05-04-2023 Lactobacillus crispatus+gasseri+imelda enii + Gardnerella vaginalis + Atopobium vaginae rRNA MEG+probe Ql (Vag fld) Negative Negative for bacterial vaginosis [facility] C. trachomatis+N. gonorrhoea e DNA MEG+probe Ql (Unsp spec)on 05-04-2023 C. trachomatis rRNA MEG+probe Ql (Unsp spec) Negative Negative for Chlamydia trachomatis by amplificaton [facility] N. gonorrhoeae rRNA MEG+probe Ql (Unsp spec) Negative Negative for Neisseria gonorrhoeae by amplification [facility] FRANCO/TRICHOMONAS NAATon 0 05-04-2023 C. glabrata RNA MEG+probe Ql (Vag fld) Negative Negative for Franco glabrata [facility] Franco sp DNA MEG+probe Ql (Vag fld) Negative Negative for Franco species [facility] T. vaginalis DNA MEG+probe Ql (Unsp spec) Negative Negative for Trichomonas vaginalis by amplification [facility] HCG QUAL UR B/Oon 07-15-2022 status Negative neg - [facility] Quality Check Yes [facility] Vital Signs Date Time Vital Sign Value Performing Clinician Facility 10-13-2024 01:46-0400 Heart rate 90 /min Dr. Ruiz Vega DO Work Phone: [facility] 10-13-2024 01:46-0400 SaO2% (BldA) [Mass fraction] 97 % Dr. Ruiz Vega DO Work Phone: [facility] 10-12-2024 23:44-0400 Diastolic blood pressure 82 mm[Hg] Dr. Ruiz Vega DO Work Phone: [facility] 10-12-2024 23:44-0400 Systolic blood pressure 122 mm[Hg] Dr. Ruiz Vega DO Work Phone: [facility] 10-12-2024 23:43-0400 Body temperature 97.7 [degF] Dr. Ruiz Vega DO Work Phone: [facility] 10-12-2024 23:43-0400 Respiratory rate 16 /min Dr. Ruiz Vega DO Work Phone: [facility] 10-12-2024 23:35-0400 Body height 162.[address] Ruiz Vega DO Work Phone: [facility] 10-12-2024 23:35-0400 Body mass index (BMI) [Ratio] 38.6 kg/m2 Dr. Ruiz Vega DO Work Phone: [facility] 10-12-2024 23:35-0400 Body weight [address] Ruiz Vega DO Work Phone: [facility] 10-05-2024 16:20-0400 Body mass index (BMI) [Ratio] 37.85 kg/m2 Delfina Watson APRN.CNM Work Phone: [facility] 10-05-2024 16:20-0400 Body weight 103.06 kg Delfina Watson APRN.CNM Work Phone: [facility] 10-05-2024 16:20-0400 Diastolic blood pressure 74 mm[Hg] Delfina Watson APRN.CNM Work Phone: [facility] 10-05-2024 16:20-0400 Systolic blood pressure 110 mm[Hg] Delfina Watson APRN.CNM Work Phone: [facility] 09-25-2024 14:06-0400 Body mass index (BMI) [Ratio] 36.99 kg/m2 Janelle Marin MD Work Phone: [facility] 09-25-2024 14:06-0400 Body weight 100.7 kg Janelle Marin MD Work Phone: [facility] 09-25-2024 14:06-0400 Diastolic blood pressure 70 mm[Hg] Janelle Marin MD Work Phone: [facility] 09-25-2024 14:06-0400 Systolic blood pressure 110 mm[Hg] Janelle Marin MD Work Phone: [facility] 09-18-2024 13:26-0400 Body mass index (BMI) [Ratio] 37.02 kg/m2 Alo Thompson MD Work Phone: [facility] 09-18-2024 13:26-0400 Body weight 100.79 kg Alo Thompson MD Work Phone: [facility] 09-18-2024 13:26-0400 Diastolic blood pressure 72 mm[Hg] Alo Thompson MD Work Phone: [facility] 09-18-2024 13:26-0400 Systolic blood pressure 110 mm[Hg] Alo Thompson MD Work Phone: [facility] 09-12-2024 10:33-0400 Body mass index (BMI) [Ratio] 35.99 kg/m2 Castillo Mckeon MD Work Phone: [facility] 09-12-2024 10:33-0400 Body weight 97.98 kg Castillo Mckeon MD Work Phone: [facility] 09-12-2024 10:33-0400 Diastolic blood pressure 82 mm[Hg] Castillo Mckeon MD Work Phone: [facility] 09-12-2024 10:33-0400 Systolic blood pressure 124 mm[Hg] Castillo Mckeon MD Work Phone: [facility] 09-04-2024 12:22-0400 Body temperature 98 [degF] Dr. Ruiz Vega DO Work Phone: 6(342)588-973729 [place] [address] 09-04-2024 12:22-0400 Diastolic blood pressure 75 mm[Hg] Dr. Ruiz Vega DO Work Phone: 4(557)001-672450 [place] [address] 09-04-2024 12:22-0400 Heart rate 99 /min Dr. Ruiz Vega DO Work Phone: 1(223)601-124329 [place] [address] 09-04-2024 12:22-0400 Respiratory rate 17 /min Dr. Ruiz Vega DO Work Phone: 8(138)413-138650 [place] [address] 09-04-2024 12:22-0400 SaO2% (BldA) [Mass fraction] 94 % Dr. Ruiz Vega DO Work Phone: 2(790)187-080750 [place] [address] 09-04-2024 12:22-0400 Systolic blood pressure 115 mm[Hg] Dr. Ruiz Vega DO Work Phone: 1(696)572-442750 [place] [address] 09-04-2024 10:11-0400 Body height 162.[address] Ruiz Vega DO Work Phone: 3(141)016-475950 [place] [address] 09-04-2024 10:11-0400 Body mass index (BMI) [Ratio] 37.1 kg/m2 Dr. Ruiz Vega DO Work Phone: 5(487)582-812629 [place] [address] 09-04-2024 10:11-0400 Body weight 98.[address] Ruiz Vega DO Work Phone: 1(952)476-129350 [place] [address] 09-04-2024 09:32-0400 Body mass index (BMI) [Ratio] 35.65 kg/m2 Janelle Marin MD Work Phone: [facility] 09-04-2024 09:32-0400 Body weight 97.07 kg Janelle Marin MD Work Phone: [facility] 09-04-2024 09:32-0400 Diastolic blood pressure 76 mm[Hg] Janelle Marin MD Work Phone: [facility] 09-04-2024 09:32-0400 Heart rate 126 /min Janelle Marin MD Work Phone: [facility] 09-04-2024 09:32-0400 SaO2% (BldA) [Mass fraction] 98 % Janelle Marin MD Work Phone: [facility] 09-04-2024 09:32-0400 Systolic blood pressure 128 mm[Hg] Janelle Marin MD Work Phone: [facility] 08-30-2024 14:52-0400 Body mass index (BMI) [Ratio] 36.15 kg/m2 La Plotts FACTORY MAINTENANCE MANAGER.CNM Work Phone: [facility] 08-30-2024 14:52-0400 Body weight 98.43 kg [employer] FACTORY MAINTENANCE MANAGER.CNM Work Phone: [facility] 08-30-2024 14:52-0400 Diastolic blood pressure 68 mm[Hg] La Plotts FACTORY MAINTENANCE MANAGER.CNM Work Phone: [facility] 08-30-2024 14:52-0400 Systolic blood pressure 120 mm[Hg] Al Plotts FACTORY MAINTENANCE MANAGER.CNM Work Phone: [facility] 08-16-2024 14:23-0400 Body mass index (BMI) [Ratio] 35.49 kg/m2 Lindsey Hawander FACTORY MAINTENANCE MANAGER.RING MAKER Work Phone: [facility] 08-16-2024 14:23-0400 Body weight 96.62 kg Lindsey Haury FACTORY MAINTENANCE MANAGER.RING MAKER Work Phone: [facility] 08-16-2024 14:23-0400 Diastolic blood pressure 62 mm[Hg] Lindsey Haury FACTORY MAINTENANCE MANAGER.RING MAKER Work Phone: [facility] 08-16-2024 14:23-0400 Systolic blood pressure 112 mm[Hg] Lindsey Haury FACTORY MAINTENANCE MANAGER.RING MAKER Work Phone: [facility] 08-13-2024 09:18-0400 Body height 165 cm Ruiz Vega DO Work Phone: [facility] 08-13-2024 09:18-0400 Body mass index (BMI) [Ratio] 35.15 kg/m2 Ruiz Vega DO Work Phone: [facility] 08-13-2024 09:18-0400 Body temperature 96.4 [degF] Ruiz Vega DO Work Phone: [facility] 08-13-2024 09:18-0400 Body weight 95.71 kg Ruiz Vega DO Work Phone: [facility] 08-13-2024 09:18-0400 Diastolic blood pressure 60 mm[Hg] Ruiz Vega DO Work Phone: [facility] 08-13-2024 09:18-0400 Heart rate 88 /min Ruiz Vega DO Work Phone: [facility] 08-13-2024 09:18-0400 Respiratory rate 16 /min Ruiz Vega DO Work Phone: [facility] 08-13-2024 09:18-0400 Systolic blood pressure 90 mm[Hg] Ruiz Vega DO Work Phone: [facility] 08-01-2024 09:33-0400 Body mass index (BMI) [Ratio] 36.39 kg/m2 Castillo Mckeon MD Work Phone: [facility] 08-01-2024 09:33-0400 Body weight 96.16 kg Castillo Mckeon MD Work Phone: [facility] 08-01-2024 09:33-0400 Diastolic blood pressure 78 mm[Hg] Castillo Mckeon MD Work Phone: [facility] 08-01-2024 09:33-0400 Systolic blood pressure 128 mm[Hg] Castillo Mckeon MD Work Phone: [facility] 07-20-2024 08:32-0400 Body mass index (BMI) [Ratio] 35.36 kg/m2 Lindsey Moreno APRN.RING MAKER Work Phone: [facility] 07-20-2024 08:32-0400 Body weight 93.44 kg Lindsey Haury FACTORY MAINTENANCE MANAGER.RING MAKER Work Phone: [facility] 07-20-2024 08:32-0400 Diastolic blood pressure 64 mm[Hg] Lindsey Moreno FACTORY MAINTENANCE MANAGER.RING MAKER Work Phone: [facility] 07-20-2024 08:32-0400 Systolic blood pressure 118 mm[Hg] Lindsey Moreno FACTORY MAINTENANCE MANAGER.RING MAKER Work Phone: [facility] 06-21-2024 13:04-0400 Body mass index (BMI) [Ratio] 34.67 kg/m2 La Plotts FACTORY MAINTENANCE MANAGER.CNM Work Phone: [facility] 06-21-2024 13:04-0400 Body weight 91.63 kg La Plotts FACTORY MAINTENANCE MANAGER.CNM Work Phone: [facility] 06-21-2024 13:04-0400 Diastolic blood pressure 62 mm[Hg] La Plotts FACTORY MAINTENANCE MANAGER.CNM Work Phone: [facility] 06-21-2024 13:04-0400 Systolic blood pressure 114 mm[Hg] La Plotts FACTORY MAINTENANCE MANAGER.CNM Work Phone: [facility] 06-19-2024 14:38-0400 Body mass index (BMI) [Ratio] 35.02 kg/m2 Janelle Marin MD Work Phone: [facility] 06-19-2024 14:38-0400 Body weight 92.53 kg Janelle Marin MD Work Phone: [facility] 06-19-2024 14:38-0400 Diastolic blood pressure 60 mm[Hg] Janelle Marin MD Work Phone: [facility] 06-19-2024 14:38-0400 Systolic blood pressure 120 mm[Hg] Janelle Marin MD Work Phone: [facility] 06-06-2024 13:05-0400 Body mass index (BMI) [Ratio] 34.67 kg/m2 La Plotts FACTORY MAINTENANCE MANAGER.CNM Work Phone: [facility] 06-06-2024 13:05-0400 Body weight 91.63 kg La Plotvida FACTORY MAINTENANCE MANAGER.CNM Work Phone: [facility] 06-06-2024 13:05-0400 Diastolic blood pressure 66 mm[Hg] La Plotvida FACTORY MAINTENANCE MANAGER.CNM Work Phone: [facility] 06-06-2024 13:05-0400 Systolic blood pressure 114 mm[Hg] La Del Castillo FACTORY MAINTENANCE MANAGER.CNM Work Phone: [facility] 05-25-2024 15:18-0400 Body mass index (BMI) [Ratio] 34.16 kg/m2 Kia Lucero MD Work Phone: [facility] 05-25-2024 15:18-0400 Body weight 90.27 kg Kia Lucero MD Work Phone: [facility] 05-25-2024 15:18-0400 Diastolic blood pressure 70 mm[Hg] Kia Lucero MD Work Phone: [facility] 05-25-2024 15:18-0400 Systolic blood pressure 114 mm[Hg] Kia Lucero MD Work Phone: [facility] 04-27-2024 13:06-0500 Body mass index (BMI) [Ratio] 33.81 kg/m2 Delfina Watson FACTORY MAINTENANCE MANAGER.CNM Work Phone: [facility] 04-27-2024 13:06-0500 Body weight 89.36 kg Delfina Watson FACTORY MAINTENANCE MANAGER.CNM Work Phone: [facility] 04-27-2024 13:06-0500 Diastolic blood pressure 68 mm[Hg] Delfina Watson FACTORY MAINTENANCE MANAGER.CNM Work Phone: [facility] 04-27-2024 13:06-0500 Systolic blood pressure 116 mm[Hg] Delfina Watson FACTORY MAINTENANCE MANAGER.CNM Work Phone: [facility] 04-03-2024 16:15-0500 Body mass index (BMI) [Ratio] 33.3 kg/m2 Delfina Watson FACTORY MAINTENANCE MANAGER.CNM Work Phone: [facility] 04-03-2024 16:15-0500 Body weight 88 kg Delfina Watson FACTORY MAINTENANCE MANAGER.CNM Work Phone: [facility] 04-03-2024 16:15-0500 Diastolic blood pressure 60 mm[Hg] Delfina Watson FACTORY MAINTENANCE MANAGER.CNM Work Phone: [facility] 04-03-2024 16:15-0500 Systolic blood pressure 104 mm[Hg] Delfina Watson FACTORY MAINTENANCE MANAGER.CNM Work Phone: [facility] 03-28-2024 09:18-0500 Body mass index (BMI) [Ratio] 33.13 kg/m2 Duncan Munguia MD Work Phone: [facility] 03-28-2024 09:18-0500 Body weight 87.54 kg Duncan Munguia MD Work Phone: [facility] 03-28-2024 09:18-0500 Diastolic blood pressure 70 mm[Hg] Duncan Munguia MD Work Phone: [facility] 03-28-2024 09:18-0500 Systolic blood pressure 120 mm[Hg] Duncan Munguia MD Work Phone: [facility] 03-19-2024 13:50-0500 Body mass index (BMI) [Ratio] 33.15 kg/m2 Josiane Luzader FACTORY MAINTENANCE MANAGER.RING MAKER Work Phone: [facility] 03-19-2024 13:50-0500 Body temperature 98.2 [degF] Josiane Luzader FACTORY MAINTENANCE MANAGER.RING MAKER Work Phone: [facility] 03-19-2024 13:50-0500 Body weight 87.6 kg Josiane Luzader FACTORY MAINTENANCE MANAGER.RING MAKER Work Phone: [facility] 03-19-2024 13:50-0500 Heart rate 84 /min Josiane Luzader FACTORY MAINTENANCE MANAGER.RING MAKER Work Phone: [facility] 03-19-2024 13:50-0500 Respiratory rate 16 /min Josiane Luzader FACTORY MAINTENANCE MANAGER.RING MAKER Work Phone: [facility] 03-13-2024 11:57-0500 Body mass index (BMI) [Ratio] 32.96 kg/m2 Roberto Clutter PA-C Work Phone: [facility] 03-13-2024 11:57-0500 Body temperature 97.59 [degF] Roberto Clutter PA-C Work Phone: [facility] 03-13-2024 11:57-0500 Body weight 87.1 kg Roberto Clutter PA-C Work Phone: [facility] 03-13-2024 11:57-0500 Diastolic blood pressure 72 mm[Hg] Roberto Clutter PA-C Work Phone: [facility] 03-13-2024 11:57-0500 Heart rate 87 /min Roberto Clutter PA-C Work Phone: [facility] 03-13-2024 11:57-0500 Respiratory rate 18 /min Roberto Clutter PA-C Work Phone: [facility] 03-13-2024 11:57-0500 SaO2% (BldA) [Mass fraction] 98 % Roberto Clutter PA-C Work Phone: [facility] 03-13-2024 11:57-0500 Systolic blood pressure 110 mm[Hg] Roberto Clutter PA-C Work Phone: [facility] 02-21-2024 08:17-0500 Body height 162.6 cm Nilda Homosassa FACTORY MAINTENANCE MANAGER.RING MAKER Work Phone: [facility] 02-21-2024 08:17-0500 Body mass index (BMI) [Ratio] 32.41 kg/m2 Nilda Linsey FACTORY MAINTENANCE MANAGER.RING MAKER Work Phone: [facility] 02-21-2024 08:17-0500 Body weight 85.64 kg Nilda Linsey FACTORY MAINTENANCE MANAGER.RING MAKER Work Phone: [facility] 02-21-2024 08:17-0500 Diastolic blood pressure 78 mm[Hg] Nilda Homosassa FACTORY MAINTENANCE MANAGER.RING MAKER Work Phone: [facility] 02-21-2024 08:17-0500 Systolic blood pressure 124 mm[Hg] Nilda Linsey FACTORY MAINTENANCE MANAGER.RING MAKER Work Phone: [facility] 01-30-2024 14:05-0500 Body mass index (BMI) [Ratio] 30.55 kg/m2 Nilda Homosassa FACTORY MAINTENANCE MANAGER.RING MAKER Work Phone: [facility] 01-30-2024 14:05-0500 Body weight 85 kg Nilda Homosassa FACTORY MAINTENANCE MANAGER.RING MAKER Work Phone: [facility] 01-30-2024 14:05-0500 Diastolic blood pressure 72 mm[Hg] Nilda Homosassa FACTORY MAINTENANCE MANAGER.RING MAKER Work Phone: [facility] 01-30-2024 14:05-0500 Systolic blood pressure 116 mm[Hg] Nilda Linsey FACTORY MAINTENANCE MANAGER.RING MAKER Work Phone: [facility] 12-12-2023 15:32-0400 Body mass index (BMI) [Ratio] 30.49 kg/m2 Nilda Linsey FACTORY MAINTENANCE MANAGER.RING MAKER Work Phone: [facility] 12-12-2023 15:32-0400 Body weight 84.82 kg Nilda Linsey FACTORY MAINTENANCE MANAGER.RING MAKER Work Phone: [facility] 12-12-2023 15:32-0400 Diastolic blood pressure 66 mm[Hg] Nilda Linsey FACTORY MAINTENANCE MANAGER.RING MAKER Work Phone: [facility] 12-12-2023 15:32-0400 Systolic blood pressure 122 mm[Hg] Nilda Homosassa FACTORY MAINTENANCE MANAGER.RING MAKER Work Phone: [facility] 10-31-2023 10:56-0400 Body height 166.8 cm Sommer Hernandez PA-C Work Phone: [facility] 10-31-2023 10:56-0400 Body mass index (BMI) [Ratio] 30.8 kg/m2 Sommer Hernandez PA-C Work Phone: [facility] 10-31-2023 10:56-0400 Body temperature 98.2 [degF] Sommer Hernandez PA-C Work Phone: [facility] 10-31-2023 10:56-0400 Body weight 85.68 kg Sommer Hernandez PA-C Work Phone: [facility] Comment on above: in a boot at this time 10-31-2023 10:56-0400 Diastolic blood pressure 78 mm[Hg] Sommer Hernandez PA-C Work Phone: [facility] 10-31-2023 10:56-0400 Heart rate 102 /min Sommer Hernandez PA-C Work Phone: [facility] 10-31-2023 10:56-0400 Respiratory rate 18 /min Sommer Hernandez PA-C Work Phone: [facility] 10-31-2023 10:56-0400 Systolic blood pressure 116 mm[Hg] Sommer Hernandez PA-C Work Phone: [facility] 08-25-2023 13:59-0400 Body weight 86.91 kg Nilda Homosassa FACTORY MAINTENANCE MANAGER.RING MAKER Work Phone: [facility] 08-25-2023 13:59-0400 Diastolic blood pressure 60 mm[Hg] Nilda Homosassa FACTORY MAINTENANCE MANAGER.RING MAKER Work Phone: [facility] 08-25-2023 13:59-0400 Systolic blood pressure 110 mm[Hg] Nilda Linsey FACTORY MAINTENANCE MANAGER.RING MAKER Work Phone: [facility] 08-21-2023 10:35-0400 Body temperature 97.5 [degF] Alecia Vanessa FACTORY MAINTENANCE MANAGER.RING MAKER Work Phone: [facility] 08-21-2023 10:35-0400 Body weight 86.5 kg Alecia Vanessa FACTORY MAINTENANCE MANAGER.RING MAKER Work Phone: [facility] 08-21-2023 10:35-0400 Diastolic blood pressure 81 mm[Hg] Alecia Vanessa FACTORY MAINTENANCE MANAGER.RING MAKER Work Phone: [facility] 08-21-2023 10:35-0400 Heart rate 104 /min Alecia Vanessa FACTORY MAINTENANCE MANAGER.RING MAKER Work Phone: [facility] 08-21-2023 10:35-0400 Respiratory rate 18 /min Alecia Vanessa FACTORY MAINTENANCE MANAGER.RING MAKER Work Phone: [facility] 08-21-2023 10:35-0400 SaO2% (BldA) [Mass fraction] 98 % Alecia Vanessa FACTORY MAINTENANCE MANAGER.RING MAKER Work Phone: [facility] 08-21-2023 10:35-0400 Systolic blood pressure 112 mm[Hg] Alecia Vanessa FACTORY MAINTENANCE MANAGER.RING MAKER Work Phone: [facility] 07-29-2023 08:08-0400 Body weight 86.91 kg Nilda Linsey FACTORY MAINTENANCE MANAGER.RING MAKER Work Phone: [facility] 07-29-2023 08:08-0400 Diastolic blood pressure 66 mm[Hg] Nilda Linsey FACTORY MAINTENANCE MANAGER.RING MAKER Work Phone: [facility] 07-29-2023 08:08-0400 Systolic blood pressure 118 mm[Hg] Nilda Linsey FACTORY MAINTENANCE MANAGER.RING MAKER Work Phone: [facility] 07-11-2023 14:09-0400 Body weight 87.09 kg Nilda Linsey FACTORY MAINTENANCE MANAGER.RING MAKER Work Phone: [facility] 07-11-2023 14:09-0400 Diastolic blood pressure 74 mm[Hg] Nilda Linsey FACTORY MAINTENANCE MANAGER.RING MAKER Work Phone: [facility] 07-11-2023 14:09-0400 Systolic blood pressure 118 mm[Hg] Nilda Homosassa FACTORY MAINTENANCE MANAGER.RING MAKER Work Phone: [facility] 06-24-2023 14:28-0400 Body temperature 97.5 [degF] Que Chavez MD Work Phone: [facility] 06-24-2023 14:28-0400 Body weight 88.22 kg Que Chavez MD Work Phone: [facility] 06-24-2023 14:28-0400 Heart rate 80 /min Que Chavez MD Work Phone: [facility] 06-24-2023 14:28-0400 Respiratory rate 16 /min Que Chavez MD Work Phone: [facility] 05-16-2023 14:25-0400 Body weight 88.45 kg Kia Lucero MD Work Phone: [facility] 05-16-2023 14:25-0400 Diastolic blood pressure 70 mm[Hg] Kia Lucero MD Work Phone: [facility] 05-16-2023 14:25-0400 Systolic blood pressure 102 mm[Hg] Kia Lucero MD Work Phone: [facility] 05-03-2023 14:36-0500 Body weight 88.81 kg Delfina Watson FACTORY MAINTENANCE MANAGER.CNM Work Phone: [facility] 05-03-2023 14:36-0500 Diastolic blood pressure 72 mm[Hg] Delfina Watson FACTORY MAINTENANCE MANAGER.CNM Work Phone: [facility] 05-03-2023 14:36-0500 Systolic blood pressure 110 mm[Hg] Delfina Watson FACTORY MAINTENANCE MANAGER.CNM Work Phone: [facility] 10-05-2022 11:36-0400 Body height 158.2 cm Sommer Hernandez PA-C Work Phone: [facility] 10-05-2022 11:36-0400 Body mass index (BMI) [Percentile] Per age and sex 98.12 % Sommer Hernandez PA-C Work Phone: [facility] 10-05-2022 11:36-0400 Body temperature 97.7 [degF] Sommer Hernandez PA-C Work Phone: [facility] 10-05-2022 11:36-0400 Body weight 92.08 kg Sommer Hernandez PA-C Work Phone: [facility] 10-05-2022 11:36-0400 Diastolic blood pressure 74 mm[Hg] Sommer Hernandez PA-C Work Phone: [facility] 10-05-2022 11:36-0400 Heart rate 98 /min Sommer Hernandez PA-C Work Phone: [facility] 10-05-2022 11:36-0400 Respiratory rate 18 /min Sommer Hernandez PA-C Work Phone: [facility] 10-05-2022 11:36-0400 Systolic blood pressure 124 mm[Hg] Sommer Hernandez PA-C Work Phone: [facility] 07-15-2022 15:03-0400 Body weight 88 kg Nilad Linsey FACTORY MAINTENANCE MANAGER.RING MAKER Work Phone: [facility] 07-15-2022 15:03-0400 Diastolic blood pressure 76 mm[Hg] Nilda Homosassa FACTORY MAINTENANCE MANAGER.RING MAKER Work Phone: [facility] 07-15-2022 15:03-0400 Systolic blood pressure 100 mm[Hg] Nilda Linsey FACTORY MAINTENANCE MANAGER.RING MAKER Work Phone: [facility] 05-27-2022 11:36-0400 Body temperature 97.3 [degF] Ramon Patrick MD Work Phone: [facility] 05-27-2022 11:36-0400 Body weight 86.55 kg Ramon Patrick MD Work Phone: [facility] 05-27-2022 11:36-0400 Diastolic blood pressure 86 mm[Hg] Ramon Patrick MD Work Phone: [facility] 05-27-2022 11:36-0400 Heart rate 19 /min Ramon Patrick MD Work Phone: [facility] 05-27-2022 11:36-0400 Respiratory rate 18 /min Ramon Patrick MD Work Phone: [facility] 05-27-2022 11:36-0400 SaO2% (BldA) [Mass fraction] 97 % Ramon Patrick MD Work Phone: [facility] 05-27-2022 11:36-0400 Systolic blood pressure 110 mm[Hg] Ramon Patrick MD Work Phone: [facility] 05-07-2022 08:58-0500 Body temperature 98.6 [degF] Sommer Hernandez PA-C Work Phone: [facility] 05-07-2022 08:58-0500 Body weight 87.32 kg Sommer Hernandez PA-C Work Phone: [facility] 05-07-2022 08:58-0500 Heart rate 100 /min Sommer Hernandez PA-C Work Phone: [facility] 05-07-2022 08:58-0500 Respiratory rate 16 /min Sommer Hernandez PA-C Work Phone: [facility] 04-12-2022 08:30-0500 Body weight 86.82 kg Nilda Homosassa FACTORY MAINTENANCE MANAGER.RING MAKER Work Phone: [facility] 04-12-2022 08:30-0500 Diastolic blood pressure 60 mm[Hg] Nilda Linsey FACTORY MAINTENANCE MANAGER.RING MAKER Work Phone: [facility] 04-12-2022 08:30-0500 Systolic blood pressure 100 mm[Hg] Nilda Homosassa FACTORY MAINTENANCE MANAGER.RING MAKER Work Phone: [facility] 03-16-2022 09:53-0500 Body weight 86.46 kg Nilda Linsey FACTORY MAINTENANCE MANAGER.RING MAKER Work Phone: [facility] 03-16-2022 09:53-0500 Diastolic blood pressure 68 mm[Hg] Nilda Homosassa FACTORY MAINTENANCE MANAGER.RING MAKER Work Phone: [facility] 03-16-2022 09:53-0500 Systolic blood pressure 100 mm[Hg] Nilda Homosassa FACTORY MAINTENANCE MANAGER.RING MAKER Work Phone: [facility] 01-18-2022 10:13-0500 Body temperature 97.7 [degF] Alecia Mendez FACTORY MAINTENANCE MANAGER.RING MAKER Work Phone: [facility] 01-18-2022 10:13-0500 Body weight 83.46 kg Alecia Vanessa FACTORY MAINTENANCE MANAGER.RING MAKER Work Phone: [facility] 01-18-2022 10:13-0500 Diastolic blood pressure 64 mm[Hg] Alecia Vanessa FACTORY MAINTENANCE MANAGER.RING MAKER Work Phone: [facility] 01-18-2022 10:13-0500 Heart rate 112 /min Alecia Vanessa FACTORY MAINTENANCE MANAGER.RING MAKER Work Phone: [facility] 01-18-2022 10:13-0500 Respiratory rate 16 /min Alecia Vanessa FACTORY MAINTENANCE MANAGER.RING MAKER Work Phone: [facility] 01-18-2022 10:13-0500 SaO2% (BldA) [Mass fraction] 96 % Alecia Vanessa FACTORY MAINTENANCE MANAGER.RING MAKER Work Phone: [facility] 01-18-2022 10:13-0500 Systolic blood pressure 118 mm[Hg] Alecia Vanessa FACTORY MAINTENANCE MANAGER.RING MAKER Work Phone: [facility] 10-28-2021 08:55-0400 Body height 163.8 cm Sommer Hernandez PA-C Work Phone: [facility] 10-28-2021 08:55-0400 Body mass index (BMI) [Percentile] Per age and sex 96.45 % Sommer Hernandez PA-C Work Phone: [facility] 10-28-2021 08:55-0400 Body temperature 97.9 [degF] Sommer Hernandez PA-C Work Phone: [facility] 10-28-2021 08:55-0400 Body weight 84.37 kg Sommer Hernandez PA-C Work Phone: [facility] 10-28-2021 08:55-0400 Heart rate 80 /min Sommer Hernandez PA-C Work Phone: [facility] 10-28-2021 08:55-0400 Respiratory rate 16 /min Sommer Hernandez PA-C Work Phone: [facility] 10-05-2021 12:50-0400 Body temperature 97.9 [degF] Alecia Vanessa FACTORY MAINTENANCE MANAGER.RING MAKER Work Phone: [facility] 10-05-2021 12:50-0400 Body weight 83.46 kg Alecia Vanessa FACTORY MAINTENANCE MANAGER.RING MAKER Work Phone: [facility] 10-05-2021 12:50-0400 Diastolic blood pressure 76 mm[Hg] Alecia Vanessa FACTORY MAINTENANCE MANAGER.RING MAKER Work Phone: [facility] 10-05-2021 12:50-0400 Heart rate 88 /min Alecia Vanessa FACTORY MAINTENANCE MANAGER.RING MAKER Work Phone: [facility] 10-05-2021 12:50-0400 Respiratory rate 16 /min Alecia Vanessa FACTORY MAINTENANCE MANAGER.RING MAKER Work Phone: [facility] 10-05-2021 12:50-0400 SaO2% (BldA) [Mass fraction] 98 % Alecia Vanessa FACTORY MAINTENANCE MANAGER.RING MAKER Work Phone: [facility] 10-05-2021 12:50-0400 Systolic blood pressure 124 mm[Hg] Alecia Vanessa FACTORY MAINTENANCE MANAGER.RING MAKER Work Phone: [facility] 07-13-2021 09:04-0400 Body height 163.4 cm Que Chavez MD Work Phone: [facility] 07-13-2021 09:04-0400 Body mass index (BMI) [Percentile] Per age and sex 96.38 % uQe Chavez MD Work Phone: [facility] 07-13-2021 09:04-0400 Body temperature 97.7 [degF] Que Chavez MD Work Phone: [facility] 07-13-2021 09:04-0400 Body weight 83.01 kg Que Chavez MD Work Phone: [facility] 07-13-2021 09:04-0400 Heart rate 92 /min Que Chavez MD Work Phone: [facility] 07-13-2021 09:04-0400 Respiratory rate 20 /min Que Chavez MD Work Phone: [facility] 06-12-2021 09:04-0400 Body temperature 97.7 [degF] Que Chavez MD Work Phone: [facility] 06-12-2021 09:04-0400 Body weight 82.1 kg Que Chavez MD Work Phone: [facility] 06-12-2021 09:04-0400 Diastolic blood pressure 80 mm[Hg] Que Chavez MD Work Phone: [facility] 06-12-2021 09:04-0400 Heart rate 80 /min Que Chavez MD Work Phone: [facility] 06-12-2021 09:04-0400 Respiratory rate 18 /min Que Chavez MD Work Phone: [facility] 06-12-2021 09:04-0400 Systolic blood pressure 118 mm[Hg] Que Chavez MD Work Phone: [facility] Encounters Encounter Date Encounter Type Care Provider Facility Start: 10-12-2024 End: 10-13-[address] Ruiz Vega DO Work Phone: [facility] Start: 10-12-2024 End: 10-13-2024 Patient encounter procedure Delfina Watson CNM -[facility] Work Phone: Start: 10-09-2024 End: 10-09-2024 ambulatory RUIZ VEGA Facility:[facility] Start: 10-05-2024 End: 10-05-2024 Patient encounter procedure Delfina Watson APRN.CNM Work Phone: OB/Gynecology Comment on above: 39 weeks gestation o f (HCC) (Primary Dx); Supervision of high risk in third trimester (HCC); Obesity in (HCC); Positive GBS test Start: 10-05-2024 End: 10-05-2024 ambulatory RUIZ VEGA Facility:[facility] Start: 09-25-2024 End: 09-25-2024 Patient encounter procedure Janelle Marin MD Work Phone: OB/Gynecology Comment on above: Supervision of high risk in third trimester (HCC) (Primary Dx); 38 weeks gestation of (HCC) Start: 09-25-2024 End: 09-25-2024 ambulatory RUIZ VEGA Facility:[facility] Start: 09-18-2024 End: 09-18-2024 Patient encounter procedure Alo Thompson MD Work Phone: OB/Gynecology Comment on above: Supervision of high risk in third trimester (HCC) (Primary Dx); 37 weeks gestation of (HCC); Positive GBS test Start: 09-18-2024 End: 09-18-2024 ambulatory RUIZ VEGA Facility:[facility] Start: 09-12-2024 End: 09-12-2024 Patient encounter procedure Castillo Mckeon MD Work Phone: OB/Gynecology Comment on above: 36 weeks gestation o f (HCC) (Primary Dx); Supervision of high risk in third trimester (HCC); Obesity affecting in third trimester, unspecified obesity type (HCC); Heartburn during in third trimester (HCC) Start: 09-12-2024 End: 09-12-2024 ambulatory RUIZ VEGA Facility:[facility] Start: 09-04-2024 End: 09-04-2024 Follow-up encounter [...] 09-04-2024 End: 09-04-2024 ambulatory RUIZ L VEGA Facility:[facility] Start: 08-30-2024 End: 08-30-2024 Patient encounter procedure La Del Castillo APRN.CNM Work Phone: OB/Gynecology Comment on above: Supervision of high risk in third trimester (HCC) (Primary Dx); Obesity affecting in third trimester, unspecified obesity type (HCC); 34 weeks gestation of (HCC) Start: 08-30-2024 End: 08-30-2024 ambulatory RUIZ L VEGA Facility:[facility] Start: 08-16-2024 End: 08-16-2024 Patient encounter procedure Lindsey Moreno APRN.RING MAKER Work Phone: OB/Gynecology Comment on above: Supervision of high risk in third trimester (HCC) (Primary Dx); 32 weeks gestation of (HCC); Obesity affecting in third trimester, unspecified obesity type (HCC) Start: 08-16-2024 Encounter for genera l adult medical examination without abnormal findings RUIZ VEGA [facility] Start: 08-16-2024 End: 08-16-2024 ambulatory RUIZ L VEGA Facility:[facility] Start: 08-13-2024 End: 08-13-2024 Patient encounter procedure Ruiz Wagner Vega DO Work Phone: [facility] Comment on above: Well adult exam ([facility] Dx); 31 weeks gestation of (HCC); Class 2 obesity with body mass index (BMI) of 35.0 to 35.9 in adult, unspecified obesity type, unspecified whether serious comorbidity present; Gastroesophageal reflux disease without esophagitis Start: 08-13-2024 End: 08-13-2024 Patient encounter status Ruiz L Vega DO Work Phone: [facility] Work Phone: Start: 08-13-2024 End: 08-13-2024 ambulatory RUIZ L VEGA Facility:[facility] Start: 08-06-2024 End: 08-08-2024 Telephone encounter La Del Castillo APRN.CNM Work Phone: OB/Gynecology Comment on above: breast pump Start: 08-03-2024 End: 08-03-2024 Telephone encounter Nurse Thread Spooler Manisha Bond Work Phone: Obstetrics/Gynecology Comment on [...] Start: 08-01-2024 End: 08-01-2024 ambulatory CASTILLO MCKEON Facility:[facility] Start: 07-23-2024 End: 09-22-2024 Follow-up encounter Castillo Mckeon MD Work Phone: OB/Gynecology Start: 07-20-2024 End: 07-20-2024 Patient encounter procedure Lindsey Moreno APRN.RING MAKER Work Phone: OB/Gynecology Comment on above: Supervision of high risk in third trimester (HCC) (Primary Dx); 28 weeks gestation of (HCC); Obesity affecting in third trimester, unspecified obesity type (HCC); Vaginal discharge during in third trimester (HCC) Start: 07-20-2024 End: 07-20-2024 ambulatory SELF Facility:[facility] Start: 07-19-2024 End: 07-19-2024 Telephone encounter [...] 06-21-2024 End: 06-21-2024 ambulatory LA DEL CASTILLO Facility:[facility] Start: 06-19-2024 End: 06-19-2024 ambulatory KIA LUCERO Facility:[facility] Start: 06-19-2024 End: 06-19-2024 Patient encounter procedure Janelle Marin MD Work Phone: OB/Gynecology Comment on above: 24 weeks gestation o f (HCC) (Primary Dx); Obesity in (HCC); Screening for diabetes mellitus Start: 06-06-2024 End: 06-06-2024 ambulatory Kia Lucero MD Work Phone: OB/Gynecology Comment on above: Possible [place] hic ks Start: 06-06-2024 End: 06-06-2024 Patient encounter procedure La Del Castillo APRN.CNM Work Phone: OB/Gynecology Comment on above: Obesity in (HCC) (Primary Dx); Supervision of normal first teen in second trimester (HCC); 22 weeks gestation of (HCC); Cramping affecting , antepartum (HCC) Start: 05-29-2024 End: 07-29-2024 Follow-up encounter Delfina Watson APRN.CNM Work Phone: OB/Gynecology Start: 05-28-2024 End: 05-28-2024 Telephone encounter Nurse Thread Spooler Manisha Bond Work Phone: Obstetrics/Gynecology Comment on above: PRAF Start: 05-25-2024 End: 05-25-2024 Office outpatient visit 15 minutes Kia Lucero MD Work Phone: OB/Gynecology Comment on above: Supervision of jas l first teen in second trimester (Primary Dx); Obesity in ; 20 weeks gestation of Start: 05-25-2024 End: 05-25-2024 ambulatory DELFINA WATSON Facility:[facility] Start: 05-25-2024 End: 05-25-2024 Patient encounter procedure Whi Tech 1 Thread Spooler [facility] Comment on above: Obesity in (Primary Dx); Supervision of normal first teen in first trimester; 13 weeks gestation of Start: 05-01-2024 End: 05-01-2024 Telephone encounter Janelle Marin MD Work Phone: OB/Gynecology Comment on above: Question (OB Questio n) Start: 04-28-2024 End: 04-28-2024 Emergency department patient visit Que Chavez Facility:[facility] Start: 04-27-2024 End: 04-27-2024 ambulatory DELFINA WATSON Facility:[facility] Start: 04-27-2024 End: 04-27-2024 Patient encounter procedure Delfina Walter FACTORY MAINTENANCE MANAGER.CNM Work Phone: OB/Gynecology Comment on above: Supervision of jas l first teen in second trimester (Primary Dx); Obesity in ; 16 weeks gestation of ; Dizziness Start: 04-13-2024 End: 04-13-2024 Telephone encounter La Del Castillo APRN.CNM Work Phone: OB/Gynecology Start: 04-10-2024 End: 04-10-2024 Refill Que Chavez MD Work Phone: [facility] Comment on above: Refill Request Start: 04-03-2024 End: 04-03-2024 ambulatory NILDA LINSEY Facility:[facility] Start: 04-03-2024 End: 04-03-2024 Patient encounter procedure Delfina Watson FACTORY MAINTENANCE MANAGER.CNM Work Phone: OB/Gynecology Comment on above: Supervision of jas l first teen in first trimester (Primary Dx); 13 weeks gestation of ; Obesity in Encounter for jyoti efrrell screening for malformation using ultrasound (Primary Dx); 13 weeks gestation of Start: 03-28-2024 End: 03-28-2024 ambulatory DUNCAN MUNGUIA Facility:[facility] Start: 03-28-2024 End: 03-28-2024 Patient encounter procedure Duncan Munguia MD Work Phone: OB/Gynecology Comment on above: Vaginal irritation ( Primary Dx); Vaginal discharge; Encounter for care in first trimester of first ; 12 weeks gestation of Start: 03-27-2024 End: 03-27-2024 ambulatory Delfina Watson FACTORY MAINTENANCE MANAGER.CNM Work Phone: OB/Gynecology Comment on above: Possible yeast infec tion Start: 03-22-2024 End: 03-22-2024 Telephone encounter La Del Castillo FACTORY MAINTENANCE MANAGER.CNM Work Phone: OB/Gynecology Comment on above: Medication Question Start: 03-19-2024 End: 03-19-2024 ambulatory QUE CHAVEZ Facility:[facility] Start: 03-19-2024 End: 03-19-2024 Patient encounter procedure Josiane Goodwin FACTORY MAINTENANCE MANAGER.RING MAKER Work Phone: [facility] [place] Comment on above: Acute non-recurrent frontal sinusitis (Primary Dx) Start: 03-13-2024 End: 03-13-2024 Office outpatient new 30 minutes Roberto Powers PA-C Work Phone: [facility] Comment on above: Sore throat (Primary Dx) Start: 03-13-2024 End: 03-13-2024 ambulatory QUE CHAVEZ Facility:[facility] Start: 03-10-2024 End: 03-10-2024 ambulatory Vivian Jefferson RN NURSE INDUSTRIAL GAS SERVICE HELPER Start: 03-10-2024 End: 03-10-2024 Patient encounter procedure Vivian Jefferson RN NURSE ON [facility] Comment on above: Clinical Update Start: 02-24-2024 End: 02-24-2024 Get Medical Advice Nilda Stiles FACTORY MAINTENANCE MANAGER.RING MAKER Work Phone: OB/Gynecology Comment on above: Lab Orders Start: 02-23-2024 End: 02-23-2024 Telephone encounter Pauline Au RN Obstetrics/Gynecology Comment on above: PRAF Start: 02-21-2024 End: 02-21-2024 ambulatory QUE CHAVEZ Facility:[facility] Start: 02-21-2024 End: 02-21-2024 Patient encounter procedure Nilda Bellcalf FACTORY MAINTENANCE MANAGER.RING MAKER Work Phone: OB/Gynecology Comment on above: Encounter for prenat al care in first trimester of first (Primary Dx); 7 weeks gestation of ; Vaginal irritation; BMI 32.0-32.9,adult; Supervision of normal first teen in first trimester Start: 01-30-2024 End: 01-30-2024 ambulatory QUE CHAVEZ Facility:[facility] Start: 01-30-2024 End: 01-30-2024 Patient encounter procedure Nilda Stiles FACTORY MAINTENANCE MANAGER.RING MAKER Work Phone: OB/Gynecology Comment on above: Encounter for pregna ncy test, result positive (Primary Dx) Start: 12-15-2023 End: 12-15-2023 Telephone encounter Nilda Stiles APRN.RING MAKER Work Phone: OB/Gynecology Comment on above: Results Start: 12-12-2023 End: 12-12-2023 ambulatory QUE CHAVEZ Facility:[facility] Start: 12-12-2023 End: 12-12-2023 Patient encounter procedure Nilda Bellcalf FACTORY MAINTENANCE MANAGER.RING MAKER Work Phone: OB/Gynecology Comment on above: Vaginal discharge (P rimary Dx); Vaginal irritation; Family history of thyroid disorder Start: 11-15-2023 End: 11-15-2023 [facility] [place] Start: 10-31-2023 End: 10-31-2023 ambulatory QUE CHAVEZ Facility:[facility] Start: 10-31-2023 End: 10-31-2023 Patient encounter procedure Sommer Hernandez PA-C Work Phone: [facility] [place] Comment on above: Encounter for wellne ss examination in adult (Primary Dx); Mild intermittent asthma with (acute) exacerbation; Seborrhea; Adverse food reaction, initial encounter Start: 10-31-2023 End: 10-31-2023 Patient encounter status Sommer Hernandez PA-C Work Phone: [facility] Work Phone: Start: 10-28-2023 End: 10-28-2023 Refill Que Chavez MD Work Phone: [facility] [place] Comment on above: Refill Request Start: 10-18-2023 End: 10-18-2023 ambulatory [facility] Facility:[facility] Start: 09-05-2023 Refill Que Chavez MD Work Phone: [facility] [place] Comment on above: Refill Request Start: 08-25-2023 End: 08-25-2023 Patient encounter procedure Nilda Linsey FACTORY MAINTENANCE MANAGER.RING MAKER Work Phone: OB/Gynecology Comment on above: Vaginal burning (Yudith bell Dx) Start: 08-21-2023 End: 08-21-2023 Patient encounter procedure Alecia Vanessa FACTORY MAINTENANCE MANAGER.RING MAKER Work Phone: [facility] Comment on above: Sore throat (Primary Dx); Viral illness Start: 08-02-2023 Telephone encounter Nilda [facility] detention FACTORY MAINTENANCE MANAGER.RING MAKER Work Phone: OB/Gynecology Comment on above: Results Start: 07-29-2023 End: 07-29-2023 Patient encounter procedure Nilda Homosassa FACTORY MAINTENANCE MANAGER.RING MAKER Work Phone: OB/Gynecology Comment on above: Vaginal discharge (P rimary Dx) Start: 07-28-2023 Refill Rachael Huffman FACTORY MAINTENANCE MANAGER.RING MAKER Work Phone: OB/Gynecology Comment on above: Refill Request Start: 07-12-2023 Telephone encounter Nilda [facility] detention FACTORY MAINTENANCE MANAGER.RING MAKER Work Phone: OB/Gynecology Comment on above: Results Start: 07-11-2023 End: 07-11-2023 Patient encounter procedure Nilda Linsey FACTORY MAINTENANCE MANAGER.RING MAKER Work Phone: OB/Gynecology Comment on above: Vaginal [...] 05-13-2023 Subsequent hospital visit by physician [facility] Wstr Mob 2 [...] Allergy testing Start: 11-11-2022 ambulatory Nilda Stiles FACTORY MAINTENANCE MANAGER.RING MAKER Work Phone: [facility] Start: 11-11-2022 Patient encounter procedure Re nee Homosassa FACTORY MAINTENANCE MANAGER.RING MAKER Work Phone: OB/Gynecology Comment on above: Should I make an ck ointment Start: 10-05-2022 End: 10-05-2022 Patient encounter procedure Sommer Hernandez PA-C Work Phone: [facility] [place] Comment on above: Encounter for wellne ss examination in adult (Primary Dx); Encounter for immunization Start: 10-05-2022 End: 10-05-2022 Patient encounter status Sommer Hernandez PA-C Work Phone: [facility] Work Phone: Start: 07-15-2022 End: 07-15-2022 Patient encounter procedure Nilda Homosassa FACTORY MAINTENANCE MANAGER.RING MAKER Work Phone: OB/Gynecology Comment on above: Missed period (Prima ry Dx); Encounter for other contraceptive management Start: 07-09-2022 ambulatory Nilda Homosassa FACTORY MAINTENANCE MANAGER.RING MAKER Work Phone: OB/Gynecology Comment on above: control Start: 05-27-2022 End: 05-27-2022 Patient encounter procedure Ramon Patrick MD Work Phone: [facility] Comment on above: URI, acute (Primary Dx); Wheezing Start: 05-10-2022 E-mail encounter fro m caregiver Nilda Bellcalf FACTORY MAINTENANCE MANAGER.RING MAKER Work Phone: [facility] Start: 05-10-2022 Patient encounter procedure Re nee Homosassa FACTORY MAINTENANCE MANAGER.RING MAKER Work Phone: OB/Gynecology Comment on above: appointment 05/17/22 Start: 05-07-2022 End: 05-07-2022 Patient encounter procedure Sommer Hernandez PA-C Work Phone: [facility] Comment on above: Dysfunction of both eustachian tubes (Primary Dx); Seasonal allergies Start: 04-30-2022 ambulatory Nilda Homosassa FACTORY MAINTENANCE MANAGER.RING MAKER Work Phone: OB/Gynecology Comment on above: Bacterial Vaginosis Start: 04-13-2022 Telephone encounter Nilda [facility]na FACTORY MAINTENANCE MANAGER.RING MAKER Work Phone: OB/Gynecology Comment on above: Results Start: 04-12-2022 End: 04-12-2022 Patient encounter procedure Nilda Linsey FACTORY MAINTENANCE MANAGER.RING MAKER Work Phone: OB/Gynecology Comment on above: Vaginal irritation ( Primary Dx) Start: 04-09-2022 Telephone encounter Nilda [facility] detention FACTORY MAINTENANCE MANAGER.RING MAKER Work Phone: OB/Gynecology Comment on above: Appointment (1st att empt no answer, no voicemail. Called to R/S w/ R.Homosassa for 2/6.) Start: 03-16-2022 End: 03-16-2022 Patient encounter procedure Nilda Stiles FACTORY MAINTENANCE MANAGER.RING MAKER Work Phone: OB/Gynecology Comment on above: Pelvic pain in femal e (Primary Dx); Encounter for surveillance of contraceptive pills Start: 01-18-2022 End: 01-18-2022 Patient encounter procedure Alecia Hodarrin FRITZ.RING MAKER Work Phone: [facility] Comment on above: Acute cough (Primary Dx); Fever, unspecified fever cause; Sore throat; URI with cough and congestion Start: 12-28-2021 End: 12-28-2021 Patient encounter procedure [facility] [place] Comment on above: Encounter for immuni zation (Primary Dx) Start: 10-28-2021 End: 10-28-2021 Patient encounter procedure Sommer Hernandez PA-C Work Phone: [facility] [place] Comment on above: Seasonal allergies ( Primary Dx) Start: 10-05-2021 End: 10-05-2021 Patient encounter procedure Alecia Hodarrin FRITZ.RING MAKER Work Phone: [facility] Comment on above: Upper respiratory sy mptom (Primary Dx); Suspected COVID-19 virus infection Start: 09-18-2021 End: 09-18-2021 ambulatory Erinn Woody MD Work Phone: OB/Gynecology Comment on above: 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 Start: 09-18-2021 End: 09-18-2021 Patient encounter procedure Erinn Woody MD Work Phone: [facility] Start: 07-13-2021 End: 07-13-2021 Patient encounter procedure Que Chavez MD Work Phone: [facility] [place] Comment on above: Encounter for [facility] (w ell child check) with abnormal findings [...] et rgnt non-auto w/o micrscp Delfina Watson FACTORY MAINTENANCE MANAGER.CNM Work Phone: Start: 09-25-2024 Urnls dip stick/tabl [...] rgnt non-auto w/o micrscp La Del Castillo FACTORY MAINTENANCE MANAGER.CNM Work Phone: Start: 06-06-2024 Urnls dip stick/tabl et rgnt auto w/o microscopy La Del Castillo FACTORY MAINTENANCE MANAGER.CNM Work Phone: Start: 05-25-2024 Us preg uterus after 1st trimest / gestation Delfina Watson FACTORY MAINTENANCE MANAGER.CNM Work Phone: Start: 04-03-2024 Us nuchal translucency 1st gestation Nilda Linsey FACTORY MAINTENANCE MANAGER.RING MAKER Work Phone: Start: 03-13-2024 STREP A MOLECULAR (POC) Delfina Nicholas FACTORY MAINTENANCE MANAGER.RING MAKER Work Phone: Start: 02-24-2024 Antibody screen NILDA LOWE Comment on above: Order Comment: Speci men Type: SWAB Ordering Facility: [facility] Address: [address] [place] [address] Performed By: #### C VTV, BVAMP #### [facility] CLIA [id number] [address] [place] [address] [place] [address] [place] Start: 02-21-2024 Us uterus l imited fetuses Nlida Homosassa FACTORY MAINTENANCE MANAGER.RING MAKER Work Phone: Start: 01-30-2024 UA DIP,URINE HCG (POC) Nilda Bellcalf FACTORY MAINTENANCE MANAGER.RING MAKER Work Phone: Start: 10-31-2023 Adult depression scr eening assessment Nilda Linsey FACTORY MAINTENANCE MANAGER.RING MAKER Work Phone: Start: 08-21-2023 STREP A MOLECULAR (POC) [facility] Provider Start: 07-11-2023 BACTERIAL VAGINOSIS NAAT Nilda Bellcalf FACTORY MAINTENANCE MANAGER.RING MAKER Work Phone: Start: 07-11-2023 Iadna trichomonas vaginalis amplified probe tech Nilda Bellcalf FACTORY MAINTENANCE MANAGER.RING MAKER Work Phone: Start: 05-13-2023 Us transvaginal Delfina Watson FACTORY MAINTENANCE MANAGER.CNM Work Phone: Start: 05-03-2023 BACTERIAL VAGINOSIS NAAT Delfina Watson FACTORY MAINTENANCE MANAGER.CNM Work Phone: Start: 05-03-2023 Iadna chlamydia trachomatis amplified probe tq Delfina Watson FACTORY MAINTENANCE MANAGER.CNM Work Phone: Start: 07-15-2022 Urine test visual color cmprsn meths Nilda Homosassa FACTORY MAINTENANCE MANAGER.RING MAKER Work Phone: Start: 12-28-2021 [employer] COVI D-19 PRIMARY SERIES VACCINE, AGE 12+ YR Sommer Hernandez PA-C Work Phone: Start: 07-13-2021 Adult depression scr eening assessment Que Chavez MD Work Phone: Start: 05-05-2017 Adult depression scr eening assessment Que Chavez MD Work Phone: Plan of Treatment Date Care Activity Detail Author Start: 06-13-2031 Urine microalbumin profile [facility] Start: 08-13-2025 Annual PCP Team [facility] lluvia Disease Visit Annual PCP Team Chronic Disease Visit [facility] Start: 03-19-2025 Annual PCP Team [facility] Cutter lluvia Disease Visit Annual PCP Team Chronic Disease Visit [facility] Start: 02-20-2025 GC (Gonorrhea) Scree alexsandra (18) GC (Gonorrhea) Screening () [facility] Start: 02-20-2025 Screening for Chlamy morgan trachomatis Chlamydia Screening () [facility] Start: 12-14-2024 End: 12-14-2024 Patient encounter procedure 12/14/2024 1:40 PM EDT Office Visit [facility] [place] [address], [place] [id number] Ruiz Vega DO [address] [place], [place] [address] Follow up [facility] [place] Comment on above: Follow up Start: 11-05-2024 Influenza vaccination Influenza Vacc ine (#1) [facility] Start: 10-30-2024 Annual PCP Team [facility] lluvia Disease Visit Annual PCP Team Chronic Disease Visit [facility] Start: 10-30-2024 Anxiety Screening Anxiety Screening [facility] Start: 10-30-2024 Asthma Control Test Asthma Control T est [facility] Start: 10-30-2024 Depression Screening Depression Scre ening [facility] Start: 10-15-2024 ambulatory Ambulatory Facility:[facility] Start: 10-13-2024 Patient discharge [facility] Start: 10-12-2024 Nonstress test [facility] Start: 10-12-2024 Obstetric monitoring [facility] Start: 10-12-2024 Vital signs measurements [facility] Start: 10-12-2024 [facility] Start: 10-09-2024 End: 10-09-2024 Patient encounter procedure 10/09/2024 1:40 PM EDT Routine Office Visit OB/Gynecology [address] [place] [address] Castillo Mckeon MD [address] [place] [address] OB OB/Gynecology Comment on above: OB Start: 10-05-2024 End: 10-05-2024 Patient encounter procedure 10/05/2024 4:30 PM EDT Routine Office Visit OB/Gynecology [address] [place] [address] Delfina Watson APRN.[facility] [address] [place] [address] OB OB/Gynecology Comment on above: OB Start: 10-02-2024 End: 10-02-2024 Patient encounter procedure 10/02/2024 1:30 PM EDT Routine Office Visit OB/Gynecology [address] [place] [address] Kia Lucero MD [address] [place] [address] OB OB/Gynecology Comment on above: OB Start: 09-25-2024 End: 09-25-2024 Patient encounter procedure 09/25/2024 2:20 PM EDT Routine Office Visit OB/Gynecology [address] [place] [address] Janelle Marin MD [address] [place] [address] OB OB/Gynecology Comment on above: OB Start: 09-18-2024 End: 09-18-2024 Patient encounter procedure 09/18/2024 1:30 PM EDT Routine Office Visit OB/Gynecology [address] [place] [address] Alo Thompson MD [address] [place] [address] (Fax) OB OB/Gynecology Comment on above: OB Start: 09-12-2024 End: 09-12-2024 Patient encounter procedure 09/12/2024 10:10 AM EDT Routine Office Visit OB/Gynecology [address] [place] [address] Castillo Mckeon MD [address] [place] [address] (Fax) OB OB/Gynecology Comment on above: OB Start: 09-04-2024 [facility] Start: 09-04-2024 [facility] Start: 08-30-2024 End: 08-30-2024 Patient encounter procedure 08/30/2024 3:15 PM EDT Routine Office Visit OB/Gynecology [address] [place] [address] La Del Castillo APRN.CNM [address] [place] [address] (Fax) Ob OB/Gynecology Comment on above: Ob Start: 08-16-2024 End: 08-16-2024 Patient encounter procedure 08/16/2024 2:30 PM EDT Routine Office Visit OB/Gynecology [address] [place] [address] Lindsey Moreno APRN.RING MAKER [address] [place] [address] (Fax) OB OB/Gynecology Comment on above: OB Start: 08-13-2024 End: 08-13-2024 Patient encounter procedure 08/13/2024 9:20 AM EDT Office Visit [facility] [place] [address] [place] [address] Ruiz Vega L, DO [address] [place] [address] Transfer from peds/[facility] Comment on above: Transfer from peds/[facility] Start: 08-03-2024 End: 08-03-2024 Patient encounter procedure 08/03/2024 2:30 PM EDT Routine Office Visit OB/Gynecology [address] [place] [address] Erinn Schwartz MD [address] [place] [address] OB OB/Gynecology Comment on above: OB Start: 08-02-2024 End: 08-02-2024 Patient encounter procedure 08/02/2024 10:30 AM EDT Routine Office Visit OB/Gynecology [address] [place] [address] La Del Castillo APRN.CNM [address] [place] [address] OB OB/Gynecology Comment on above: OB Start: 08-01-2024 End: 10-31-2024 BILE ACIDS, TOTAL [facility] Work Phone: Comment on above: Expected: 08/01/2024 , Expires: 10/31/2024 Start: 07-20-2024 End: 07-20-2024 Patient encounter procedure 07/20/2024 8:45 AM EDT Routine Office Visit OB/Gynecology [address] [place] [address] Lindsey Moreno APRN.RING MAKER [address] [place] [address] OB Routine OB/Gynecology Comment on above: OB Routine Start: 07-20-2024 End: 07-20-2024 ambulatory 07/20/2024 8:30 AM EDT Results Only [place] [facility] [address] [place] [address] Glucose Test and LABs [facility] Comment on above: Glucose Test and LAB s Start: 06-23-2024 Annual PCP Team [facility] Cutter lluvia Disease Visit Annual PCP Team Chronic Disease Visit [facility] Start: 06-19-2024 End: 06-19-2024 Patient encounter procedure 06/19/2024 2:40 PM EDT Routine Office Visit OB/Gynecology [address] [place] [address] Kia Lucero MD [address] [place] [address] OB OB/Gynecology Comment on above: OB Start: 06-19-2024 End: 09-18-2024 ANEMIA REFLEX PANEL ANEMIA REFLEX PANEL Lab Routine 24 weeks gestation of ([facility]) Expected: 06/19/2024, Expires: 09/18/2024 [facility] Comment on above: Expected: 06/19/2024 , Expires: 09/18/2024 Start: 06-19-2024 End: 06-19-2025 GESTATIONAL GLUCOSE SCREEN, 1-HOUR, 50 GRAM, NON-FASTING GESTATIONAL GLUCOSE SCREEN, 1-HOUR, 50 GRAM, NON-FASTING Lab Routine 24 weeks gestation of ([facility]) Screening for diabetes mellitus Expected: 06/19/2024, Expires: 06/19/2025 [facility] Work Phone: Comment on above: Expected: 06/19/2024 , Expires: 06/19/2025 Start: 06-19-2024 End: 06-19-2025 SYPHILIS TREPONEMAL W/REFLEX SYPHILIS TREPONEMAL W/REFLEX Lab Routine 24 weeks gestation of ([facility]) Expected: 06/19/2024, Expires: 06/19/2025 [facility] Comment on above: Expected: 06/19/2024 , Expires: 06/19/2025 Start: 05-25-2024 End: 05-25-2024 Patient encounter procedure Maternal Medicine Comment on above: Anatomy OB Start: 05-03-2024 GC (Gonorrhea) Scree alexsandra (17) GC (Gonorrhea) Screening () [facility] Start: 05-03-2024 Screening for Chlamy morgan trachomatis Chlamydia Screening () [facility] Start: 04-27-2024 End: 04-27-2024 Patient encounter procedure 04/27/2024 1:15 PM EST Routine Office Visit OB/Gynecology [address] [place], [place] [id number] Delfina Watson APRN.CN [address] [place] [address] OB OB/Gynecology Comment on above: OB Start: 04-03-2024 End: 04-03-2024 Patient encounter procedure Maternal Medicine Comment on above: Nuchal Nuchal/ OB Start: 04-03-2024 End: 04-03-2025 OBSTETRIC ULTRASOUND WHI OBSTETRIC ULTRASOUND WHI Anc Imaging Routine Supervision of normal first teen in first trimester 13 weeks gestation of Obesity in Expected: 04/03/2024, Expires: 04/03/2025 [facility] Work Phone: Comment on above: Expected: 04/03/2024 , Expires: 04/03/2025 Start: 03-28-2024 End: 03-28-2024 Patient encounter procedure 03/28/2024 9:10 AM EST Routine Office Visit OB/Gynecology [address] [place], [place] [id number] Duncan Munguia MD [address] [place] [address] vaginal infection OB/Gynecology Comment on above: vaginal infection Start: 02-21-2024 End: 05-22-2024 ANEMIA REFLEX PANEL ANEMIA REFLEX PANEL Lab Routine Encounter for care in first trimester of first 7 weeks gestation of Expected: 02/21/2024, Expires: 05/22/2024 [facility] Work Phone: Comment on above: Expected: 02/21/2024 , Expires: 05/22/2024 Start: 02-21-2024 End: 05-22-2024 Chromosome 21 trisomy [Presence] in Blood or Tissue by Cytogenetics [id number] [id number] Lab Routine 7 weeks gestation of Expected: 02/21/2024, Expires: 05/22/2024 [facility] Comment on above: Expected: 02/21/2024 , Expires: 05/22/2024 Start: 02-21-2024 End: 05-22-2024 Hemoglobin A1c in Blood HEMOGLOBIN A1C Lab Routine Encounter for care in first trimester of first 7 weeks gestation of Expected: 02/21/2024, Expires: 05/22/2024 [facility] Comment on above: Expected: 02/21/2024 , Expires: 05/22/2024 Start: 02-21-2024 End: 05-22-2024 Hepatitis B virus surface Ag [Presence] in Serum HEPATITIS B SURFACE ANTIGEN Lab Routine Encounter for care in first trimester of first 7 weeks gestation of Expected: 02/21/2024, Expires: 05/22/2024 [facility] Comment on above: Expected: 02/21/2024 , Expires: 05/22/2024 Start: 02-21-2024 End: 05-22-2024 Hepatitis C virus Ab [Presence] in Serum HEPATITIS C ANTIBODY IA WITH CONFIRMATION Lab Routine Encounter for care in first trimester of first 7 weeks gestation of Expected: 02/21/2024, Expires: 05/22/2024 [facility] Comment on above: Expected: 02/21/2024 , Expires: 05/22/2024 Start: 02-21-2024 End: 05-22-2024 HIV 1+2 Ab [Presence] in Serum or Plasma by Immunoassay HIV 1/2 COMBO WITH REFLEX TO DIFFERENTIATION Lab Routine Encounter for care in first trimester of first 7 weeks gestation of Expected: 02/21/2024, Expires: 05/22/2024 [facility] Comment on above: Expected: 02/21/2024 , Expires: 05/22/2024 Start: 02-21-2024 End: 02-20-2025 NUCHAL TRANSLUCENCY WHI NUCHAL TRANSLUCENCY WHI Anc Imaging Routine Encounter for care in first trimester of first 7 weeks gestation of Expected: 02/21/2024, Expires: 02/20/2025 [facility] Comment on above: Expected: 02/21/2024 , Expires: 02/20/2025 Start: 02-21-2024 End: 05-22-2024 RUBELLA IGG ANTIBODY RUBELLA IGG ANTIBODY Lab Routine Encounter for care in first trimester of first 7 weeks gestation of Expected: 02/21/2024, Expires: 05/22/2024 [facility] Comment on above: Expected: 02/21/2024 , Expires: 05/22/2024 Start: 02-21-2024 End: 05-22-2024 SYPHILIS TREPONEMAL W/REFLEX SYPHILIS TREPONEMAL W/REFLEX Lab Routine Encounter for care in first trimester of first 7 weeks gestation of Expected: 02/21/2024, Expires: 05/22/2024 [facility] Comment on above: Expected: 02/21/2024 , Expires: 05/22/2024 Start: 02-21-2024 End: 05-22-2024 TYPE + SCREEN TYPE + SCREEN Blood Bank Routine Encounter for care in first trimester of first 7 weeks gestation of Expected: 02/21/2024, Expires: 05/22/2024 [facility] Comment on above: Expected: 02/21/2024 , Expires: 05/22/2024 Start: 02-21-2024 End: 02-21-2024 Patient encounter procedure 02/21/2024 8:15 AM EST Initial Office Visit OB/Gynecology [address] [place] [address] Nilda Stiles APRN.RING MAKER [address] [place] [address] New OB OB/Gynecology Comment on above: New OB Start: 12-12-2023 End: 03-12-2024 THYROID PEROXIDASE ANTIBODY [facility] Comment on above: Expected: 12/12/2023 , Expires: 03/12/2024 Start: 12-12-2023 End: 03-12-2024 Thyrotropin [Units/volume] in Serum or Plasma [facility] Work Phone: Comment on above: Expected: 12/12/2023 , Expires: 03/12/2024 Start: 12-12-2023 End: 03-12-2024 Thyroxine (T4) free [Mass/volume] in Serum or Plasma [facility] Comment on above: Expected: 12/12/2023 , Expires: 03/12/2024 Start: 12-12-2023 End: 03-12-2024 Triiodothyronine (T3) Free [Mass/volume] in Serum or Plasma [facility] Comment on above: Expected: 12/12/2023 , Expires: 03/12/2024 Start: 12-07-2023 End: 12-07-2023 Patient encounter procedure 12/07/2023 8:30 AM EDT Office Visit Allergy [address] [id number] Tio Wilcox MD [address] [place], [place] [id number] Adverse food reaction, initial encounter [T78.1XXA] Allergy Comment on above: Adverse food reactio n, initial encounter [T78.1XXA] Start: 11-11-2023 End: 11-11-2023 Patient encounter procedure 11/11/2023 8:00 AM EDT Office Visit OB/Gynecology [address] [place] [address] Nilda Stiles APRN.RING MAKER [address] [facility] [place] [address] yeast infection resistant OB/Gynecology Comment on above: yeast infection resi stant Start: 11-06-2023 Covid-19 Vaccine ( season) Covid-19 Vaccine ( season) [facility] Start: 11-06-2023 Influenza vaccination C [facility] Start: 10-31-2023 End: 10-31-2023 Patient encounter procedure 10/31/2023 11:00 AM EDT Office Visit [facility] [place] [address] [place] [address] Sommer Hernandez PA-C [address] [place] [address] [facility] Comment on above: [facility] Start: 03-16-2023 CHLAMYDIA SCREENING (18-24) CHLAMYDIA SCREENING (18-24) [facility] Start: 03-16-2023 CHLAMYDIA SCREENING (<18) CHLA MYDIA SCREENING (<18) [facility] Start: 03-16-2023 GC (GONORRHEA) SCREE ALEXSANDRA (18-24) GC (GONORRHEA) SCREENING (18-24) [facility] Start: 03-16-2023 GC (GONORRHEA) SCREE ALEXSANDRA (<18) GC (GONORRHEA) SCREENING (<18) [facility] Start: 03-16-2023 Screening for Chlamy morgan trachomatis Chlamydia Screening (18-24) [facility] Start: 03-07-2023 Behavioral Health Screening Behavioral Health Screening [facility] Start: 03-07-2023 Depression Assessment Depression Ass [facility] Start: 11-05-2022 Covid-19 Vaccine ( season) Covid-19 Vaccine ( season) [facility] Start: 11-05-2022 Influenza vaccination [facility] Start: 2022 Anxiety Screening Anxiety Screening [facility] Start: 2022 Depression Screening Depression Scre ening [facility] Start: 2022 HEPATITIS C SCREENING HEPATITIS C [facility] Start: 2022 Hepatitis C screening Hepatitis C [facility] Start: 2022 HIV SCREENING HIV SCREENING [facility] Start: 2022 HIV screening HIV Screening [facility] Start: 2022 Spirometry Spirometry [facility] Start: 07-13-2022 Adult depression screening assessment DEPRESSION SCREENING [facility] Start: 03-07-2022 DEPRESSION ASSESSMENT DEPRESSION ASS ESSMENT [facility] Start: 02-22-2022 COVID-19 VACCINE (3 - Booster for Pfizer series) COVID-19 VACCINE (3 - Booster for Pfizer series) [facility] Start: 02-22-2022 COVID-19 VACCINE (3 - Pfizer series) COVID-19 VACCINE (3 - Pfizer series) [facility] Start: 01-18-2022 End: 02-01-2022 COVID, FLU A/B + RSV, ROUTINE [facility] Work Phone: Comment on above: Expected: 01/18/2022 , Expires: 02/01/2022 Start: 11-05-2021 Influenza vaccination C [facility] Start: 10-05-2021 End: 10-19-2021 COVID, FLU A/B + RSV, ROUTINE COVID, FLU A/B + RSV, ROUTINE Microbiology Routine Upper respiratory symptom Suspected COVID-19 virus infection Expected: 10/05/2021, Expires: 10/19/2021 [facility] Work Phone: Comment on above: Expected: 10/05/2021 , Expires: 10/19/2021 Start: 04-27-2021 Asthma Action Plan Asthma Action Yessenia n [facility] Start: 2020 Meningococcal B Vacc ine (1 of 2 - Standard) Meningococcal B Vaccine (1 of 2 - Standard) [facility] Start: 2020 Meningococcal B Vacc ine: Consider Based On Risk (1 of 2 - Patient Seeks Protection) Meningococcal B Vaccine: Consider Based On Risk (1 of 2 - Patient Seeks Protection) [facility] Start: 2020 MENINGOCOCCAL B: Con lockstitch lining maker based on risk (1 of 2 - Patient Seeks Protection) MENINGOCOCCAL B: Consider based on risk (1 of 2 - Patient Seeks Protection) [facility] Start: 04-27-2020 Asthma Control Test Asthma Control T est [facility] Start: 10-26-2019 HPV VACCINE (2 - 2-d ose series) HPV VACCINE (2 - 2-dose series) [facility] Start: 08-13-2019 CHLAMYDIA SCREENING (<18) CHLA MYDIA SCREENING (<18) [facility] Start: 08-13-2019 GC (GONORRHEA) SCREE ALEXSANDRA (<18) GC (GONORRHEA) SCREENING (<18) [facility] Start: 2018 PEDS TO ADULT TRANSI TION ANNUAL ASSESSMENT PEDS TO ADULT TRANSITION ANNUAL ASSESSMENT [facility] Start: 05-05-2018 Adult depression screening assessment DEPRESSION SCREENING [facility] Start: 2016 PEDS TO ADULT TRANSI TION INITIAL DISCUSSION PEDS TO ADULT TRANSITION INITIAL DISCUSSION [facility] Start: 2014 MENINGOCOCCAL B: Con lockstitch lining maker based on risk (1 of 2 - Risk Bexsero 2-dose series) MENINGOCOCCAL B: Consider based on risk (1 of 2 - Risk Bexsero 2-dose series) [facility] Start: 2009 COVID-19 VACCINE (#1) COVID-19 VACCI NE (#1) [facility] Start: 2009 COVID-19 VACCINE (1) COVID-19 VACCIN E (1) [facility] Start: 02-11-2005 COVID-19 VACCINE (#1) COVID-19 VACCI NE (#1) [facility] Bacteria identified in Urine by Culture URINE CULTURE Microbiology Routine Encounter for care in first trimester of first 7 weeks gestation of 02/21/2024 8:57 AM [facility] BACTERIAL VAGINOSIS AMPLIFICATION BACTERIAL VAGINOSIS AMPLIFICATION Lab Routine Pelvic pain in female 03/16/2022 10:38 AM [facility] Work Phone: BACTERIAL VAGINOSIS AMPLIFICATION BACTERIAL VAGINOSIS AMPLIFICATION Lab Routine Vaginal irritation 04/12/2022 8:51 AM [facility] Work Phone: BACTERIAL VAGINOSIS NAAT BACTERI AL VAGINOSIS NAAT Lab Routine Vaginal discharge 07/29/2023 8:31 AM EDT [facility] BACTERIAL VAGINOSIS NAAT BACTERI AL VAGINOSIS NAAT Lab Routine Vaginal discharge Vaginal irritation [facility] NAAT BACTERI AL VAGINOSIS NAAT Lab Routine Vaginal irritation 02/21/2024 8:57 AM [facility] BACTERIAL VAGINOSIS NAAT BACTERI AL VAGINOSIS NAAT Lab Routine Vaginal irritation Vaginal discharge 03/28/2024 10:13 AM [facility] Work Phone: BACTERIAL VAGINOSIS NAAT BACTERI AL VAGINOSIS NAAT Lab Routine Vaginal discharge during in third trimester (HCC) 07/20/2024 8:54 AM [facility] Work Phone: FRANCO / TRICHOMONA S AMPLIFICATION FRANCO / TRICHOMONAS AMPLIFICATION Microbiology Routine Pelvic pain in female 03/16/2022 10:38 AM [facility] Work Phone: FRANCO / TRICHOMONA S AMPLIFICATION FRANCO / TRICHOMONAS AMPLIFICATION Microbiology Routine Vaginal irritation 04/12/2022 8:51 AM [facility] Work Phone: FRANCO/TRICHOMONAS NAAT FRANCO /TRICHOMONAS NAAT Lab Routine Vaginal discharge 07/29/2023 8:31 AM T [facility] Work Phone: FRANCO/TRICHOMONAS NAAT FRANCO /TRICHOMONAS NAAT Lab Routine Vaginal discharge Vaginal irritation 12/12/2023 4:17 PM EDT [facility] FRANCO/TRICHOMONAS NAAT FRANCO /TRICHOMONAS NAAT Lab Routine Vaginal irritation 02/21/2024 8:57 AM [facility] FRANCO/TRICHOMONAS NAAT FRANCO /TRICHOMONAS NAAT Lab Routine Vaginal irritation Vaginal discharge 03/28/2024 10:13 AM [facility] FRANCO/TRICHOMONAS NAAT FRANCO /TRICHOMONAS NAAT Lab Routine Vaginal discharge during in third trimester (HCC) 07/20/2024 8:54 AM [facility] Chlamydia trachomatis+Neisseria gonorrhoeae DNA [Presence] in Unspecified specimen by MEG with probe detection GC/CHLAMYDIA DNA DET Lab Routine Pelvic pain in female 03/16/2022 10:38 AM [facility] Work Phone: Chlamydia trachomatis+Neisseria gonorrhoeae DNA [Presence] in Unspecified specimen by MEG with probe detection GONORRHEA/CHLAMYDIA NAAT Lab Routine Encounter for care in first trimester of first 7 weeks gestation of 02/21/2024 8:57 AM [facility] Measurement of pH in vaginal fluid specimen using nitrazine yellow for detection of rupture of amniotic membrane [facility] Patient Education [facility] Work Phone: Removal intrauterine device iud REMOVE INTRAUTERINE DEVICE Procedures Routine Malpositioned intrauterine device (IUD), initial encounter Encounter for IUD removal Ordered: 05/13/2023 [facility] Work Phone: Comment on above: Ordered: 05/13/2023 ROUTINE FLU A/B + RSV ROUTINE FL U A/B + RSV Lab Routine Upper respiratory symptom Suspected COVID-19 virus infection Ordered: 10/05/2021 [facility] Work Phone: Comment on above: Ordered: 10/05/2021 ROUTINE FLU A/B + RSV ROUTINE FL U A/B + RSV Lab Routine Acute cough Fever, unspecified fever cause Sore throat URI with cough and congestion 01/18/2022 10:38 AM [facility] Work Phone: ROUTINE, GR OUP B STREPTOCOCCUS BY PCR ROUTINE, GROUP B STREPTOCOCCUS BY PCR Microbiology Routine 36 weeks gestation of ([facility]) 09/12/2024 10:54 AM EDT [facility] Work Phone: SARS-CoV-2 (COVID-19 ) RNA [Presence] in Respiratory specimen by MEG with probe detection 2019 CORONAVIRUS Microbiology Routine Upper respiratory symptom Suspected COVID-19 virus infection Ordered: 10/05/2021 [facility] Work Phone: Comment on above: Ordered: 10/05/2021 SARS-CoV-2 (COVID-19 ) RNA [Presence] in Respiratory specimen by MEG with probe detection 2019 CORONAVIRUS Microbiology Routine Acute cough Fever, unspecified fever cause Sore throat URI with cough and congestion 01/18/2022 10:38 AM [facility] Work Phone: SARS-CoV-2 (COVID-19 ) RNA [Presence] in Respiratory specimen by MEG with probe detection 2019 CORONAVIRUS Microbiology Routine URI, acute Wheezing Ordered: 05/27/2022 [facility] Work Phone: Comment on above: Ordered: 05/27/2022 UROGENITAL UREAPLASM A AND MYCOPLASMA SPECIES BY PCR, FOR GENITAL, RECTAL, URINE SAMPLES UROGENITAL UREAPLASMA AND MYCOPLASMA SPECIES BY PCR, FOR GENITAL, RECTAL, URINE SAMPLES Lab Routine Vaginal discharge Vaginal irritation 12/12/2023 4:17 PM EDT [facility] c [facility] c [facility] Immunizations Immunization Date Immunization Notes Care Provider [facility] 12-14-2023 influenza, seasonal, injectable, preservative free Dr. Ruiz Vega DO Work Phone: [facility] 12-14-2023 influenza virus vacc ine, unspecified formulation Janelle Marin MD Work Phone: [facility] 10-05-2022 Human Papillomavirus 9-valent vaccine Sommer Hernandez PA-C Work Phone: [facility] 12-28-2021 Covid (Pfizer) Dr. Ruiz Vega DO Work Phone: [facility] 12-28-2021 COVID-19 original vaccine, age 12+ yr, monovalent (PFIZER-BIONTECH - MARTINEZ TOP) Nurse [facility] 12-03-2021 Covid (Pfizer) Dr. Ruiz Vega DO Work Phone: [facility] 12-03-2021 COVID-19 original vaccine, age 12+ yr, monovalent (PFIZER-BIONTECH - MARTINEZ TOP) Nurse [facility] 06-12-2021 meningococcal polysaccharide (groups A, C, Y and W-135) diphtheria toxoid conjugate vaccine (MCV4P) Que Chavez MD Work Phone: [facility] Work Phone: 06-12-2021 tetanus toxoid, redu monique diphtheria toxoid, and acellular pertussis vaccine, adsorbed Que Chavez MD Work Phone: [facility] Work Phone: 06-12-2021 Meningococcal, MCV4, unspecified conjugate formulation(groups A, C, Y and W-135) Que Chavez MD Work Phone: [facility] Work Phone: 04-27-2019 Human Papillomavirus 9-valent vaccine Que Chavez MD Work Phone: [facility] 04-27-2019 influenza, injectabl e, quadrivalent, preservative free Que Chavez MD Work Phone: [facility] 04-27-2019 influenza virus vacc ine, unspecified formulation Sommer Hernandez PA-C Work Phone: [facility] 01-07-2010 hepatitis A vaccine, pediatric/adolescent dosage, 2 dose schedule Que Chavez MD Work Phone: [facility] Work Phone: 01-07-2010 influenza, seasonal, injectable Que Chavez MD Work Phone: [facility] 11-03-2009 poliovirus vaccine, inactivated Que Chavez MD Work Phone: [facility] 10-27-2009 diphtheria, tetanus toxoids and acellular pertussis vaccine Que Chavez MD Work Phone: [facility] 10-27-2009 measles, mumps, rube lla, and varicella virus vaccine Que Chavez MD Work Phone: [facility] 10-27-2009 poliovirus vaccine, unspecified formulation Que Chavez MD Work Phone: [facility] Work Phone: 12-03-2008 Diphtheria, tetanus toxoids and acellular pertussis vaccine, and poliovirus vaccine, inactivated Que Chavez MD Work Phone: [facility] Work Phone: 12-03-2008 influenza, seasonal, injectable Que Chavez MD Work Phone: [facility] 12-03-2008 measles, mumps and rubella virus vaccine uQe Chavez MD Work Phone: [facility] Work Phone: 10-03-2006 diphtheria, tetanus toxoids and acellular pertussis vaccine Que Chavez MD Work Phone: [facility] Work Phone: 10-03-2006 haemophilus influenz ae type b vaccine, HbOC conjugate Que Chavez MD Work Phone: [facility] 10-03-2006 measles, mumps, rube lla, and varicella virus vaccine Que Chavez MD Work Phone: [facility] Work Phone: 10-03-2006 pneumococcal conjuga te vaccine, 7 valent Que Chavez MD Work Phone: [facility] Work Phone: 06-17-2005 diphtheria, tetanus toxoids and acellular pertussis vaccine Que Chavez MD Work Phone: [facility] Work Phone: 06-17-2005 haemophilus influenz ae type b vaccine, HbOC conjugate Que Chavez MD Work Phone: [facility] 06-17-2005 pneumococcal conjuga te vaccine, 7 valent Que Chavez MD Work Phone: [facility] Work Phone: 06-17-2005 poliovirus vaccine, inactivated Que Chavez MD Work Phone: [facility] Work Phone: 05-06-2005 DTaP-hepatitis B and poliovirus vaccine Que Chavez MD Work Phone: [facility] Work Phone: 05-06-2005 haemophilus influenz ae type b vaccine, HbOC conjugate Que Chavez MD Work Phone: [facility] 05-06-2005 pneumococcal conjuga te vaccine, 7 valent Que Chavez MD Work Phone: [facility] Work Phone: 2004 DTaP-hepatitis B and poliovirus vaccine Que Chavez MD Work Phone: [facility] Work Phone: 2004 haemophilus influenz ae type b vaccine, HbOC conjugate Que Chavez MD Work Phone: [facility] 2004 pneumococcal conjuga te vaccine, 7 valent Que Chavez MD Work Phone: [facility] Work Phone: 2004 hepatitis B vaccine, pediatric or pediatric/adolescent dosage Que Chavez MD Work Phone: [facility] Payers Date Payer Category Payer Self-pay 2022 Unknown [id number] 2021 Medicaid [place] [employer] [place] [employer] [id number] 2021-Present [phone] [facility] [address] [place] [address] Medicaid [id number] 2021 Medicaid [id number] 2016 Medicaid [id number] 2016 Unknown [id number] Unknown [id number] Unknown [id number] Unknown [id number] Unknown [id number] Unknown [id number] Unknown [id number] Unknown [id number] Unknown [id number] Social History Date Type Detail Facility Start: 01-13-2021 End: 09-04-2024 Tobacco smoking status NHIS Never smoked tobacco [facility] Work Phone: Start: 01-13-2021 End: 10-28-2021 Tobacco use and exposure Smokeless tobacco non-user [facility] Work Phone: Start: 06-12-2021 End: 10-05-2024 Alcohol intake Current non-drinker of alcohol (finding) [facility] Start: 12-29-2017 End: 10-28-2021 Tobacco Comment Second hand smoke exposure [facility] Start: 2004 Sex Assigned At Female [facility] Start: 06-02-2021 End: 01-18-2022 Exposure to SARS-CoV-2 (event) Not sure [facility] Work Phone: Start: 07-13-2021 History SDOH Physical Activity DPW 2 [facility] Start: 07-13-2021 History SDOH Financial 4 [facility] Start: 07-13-2021 History SDOH Food Worry 1 [facility] Start: 10-05-2022 End: 08-23-2023 History of Social function [facility] Start: 10-05-2022 End: 08-23-2023 Tobacco use panel [facility] How hard is it for y ou to pay for the very basics like food, housing, medical care, and heating Not very hard [facility] (I/We) worried wheth er (my/our) food would run out before (I/we) got money to buy more. Never true [facility] In the past 12 month s, has lack of transportation kept you from medical appointments or from getting medications? No [facility] In the past 12 month s, was there a time when you were not able to pay the mortgage or rent on time? No [facility] Start: 12-29-2017 Gender identity Identifies as female gender (finding) [facility] Start: 12-29-2017 Sexual orientation Heterosexual (finding) [facility] Are you now , , , , never or living with a partner? Never [facility] How often to you hav e a drink containing alcohol? Never [facility] Do you feel stress - tense, restless, nervous, or anxious, or unable to sleep at night because your mind is troubled all the time - these days [OSQ] Not at all [facility] Start: 02-16-2024 Education 12 [facility] Start: 01-17-2024 [facility] Goals Date Patient Goal Desired Activity /State Personal health goal Mental Status Date Assessment Result Facility 09-04-2024 Cognitive function Awake;Alert;A ppropriate;Fol lows Commands [facility] Work Phone: Clinical Notes 08-09-2016 to [...] discussed with the Patient or Patient's Authorized Brand Ambassador. As applicable, any other physician, advance practice provider, medical student, or other health professional student that will be observing or involved in the sensitive examination for educational or training purposes was discussed with the Patient or Authorized Brand Ambassador. The Patient or Authorized Brand Ambassador has agreed to proceed with the sensitive [...] one week Delfina Watson APRN.CNM [facility] 10-05-2024 Note HNO ID: [id number] Author: DELFINA WATSON APRN.CNM Service: ? Author Type: Green Feed Attendant Type: Progress Notes Filed: 10/05/2024 16:56 Note Text: MEKA- [facility] 10-05-2024 History of Presen t illness Narrative MEKA- documented in this encounter [facility] 10-05-2024 Miscellaneous Notes Formattin g of [...] discussed with the Patient or Patient's Authorized Brand Ambassador. As applicable, any other physician, advance practice provider, medical student, or other health professional student that will be observing or involved in the sensitive examination for educational or training purposes was discussed with the Patient or Authorized Brand Ambassador. The Patient or Authorized Brand Ambassador has agreed to proceed with the sensitive [...] APRN.CNM documented in this encounter [facility] 10-05-2024 Instructions Karen Dimas MA - 10/05/2024 4:19 PM EDT SEQUENTIAL SCREENINGS The [facility] offers sequential screenings for women who [...] It will require an appointment with our maintenance technician. This is not an ultrasound performed [...] the above symptoms, contact our office at [phone] and ask to speak with a nurse. After hours, you can call doctors registry at [phone] OR call [facility] at [phone] and ask to have the doctor application security developer paged. If you consider this an emergency, dial 9-1-1 or go to your nearest emergency department. NEED HELP? Are you dealing with a violent or abusive relationship? Are you a victim of rape or sexual assult? Call [facility] ([place]) 24 hour Crisis Hotline: 784.126.7868 or 643-608-4037. MANUAL Your Guide to a Healthy manual is now on-line. Visit [email or web address] [email or web address] to download your free copy documented in this encounter [facility] 09-25-2024 Progress note Formatting of t his note might be different from the original. KJ - S: Amirah denies LOF or vaginal bleeding. She reports some irregular ctxs. O: 38w0d, see flow sheet SENSITIVE EXAM: The sensitive examination was discussed with the Patient or Patient's Authorized Brand Ambassador. As applicable, any other physician, advance practice provider, medical student, or other health professional student that will be observing or involved in the sensitive examination for educational or training purposes was discussed with the Patient or Authorized Brand Ambassador. The Patient or Authorized Brand Ambassador has agreed to proceed with the sensitive examination. (Sensitive examination includes inspection and/or palpation of the breasts, pelvis, prostate and anorectal regions). A/P: Assessment & Plan Supervision of high risk in third trimester (HCC) Orders: URINE OB DIP B/O 38 weeks gestation of (HCC) Orders: URINE OB DIP B/O Reviewed labor & FM precautions Janelle Marin MD [facility] 09-25-2024 Miscellaneous Notes Formattin g of this note might be different from the original. KJ - S: Amirah denies LOF or vaginal bleeding. She reports some irregular ctxs. O: 38w0d, see flow sheet SENSITIVE EXAM: The sensitive examination was discussed with the Patient or Patient's Authorized Brand Ambassador. As applicable, any other physician, advance practice provider, medical student, or other health professional student that will be observing or involved in the sensitive examination for educational or training purposes was discussed with the Patient or Authorized Brand Ambassador. The Patient or Authorized Brand Ambassador has agreed to proceed with the sensitive examination. (Sensitive examination includes inspection and/or palpation of the breasts, pelvis, prostate and anorectal regions). A/P: Assessment & Plan Supervision of high risk in third trimester (HCC) Orders: URINE OB DIP B/O 38 weeks gestation of (HCC) Orders: URINE OB DIP B/O Reviewed labor & FM precautions Janelle Marin MD documented in this encounter [facility] 09-25-2024 Instructions Cassie Abad MA - 09/25/2024 2:00 PM EDT SEQUENTIAL SCREENINGS The [facility] offers sequential screenings for women who [...] It will require an appointment with our maintenance technician. This is not an ultrasound performed [...] the above symptoms, contact our office at [phone] and ask to speak with a nurse. After hours, you can call [facility] at [phone] OR call [facility] at [phone] and ask to have the doctor application security developer paged. If you consider this an emergency, dial 9--1 or go to your nearest emergency department. NEED HELP? Are you dealing with a violent or abusive relationship? Are you a victim of rape or sexual assult? Call [facility] ([place]) 24 hour Crisis Hotline: 619.978.2290 or 393-992-4511. MANUAL Your Guide to a Healthy manual is now on-line. Visit [email or web address] [email or web address] to download your free copy documented in this encounter [facility] 09-18-2024 Progress note Formatting of t his note might be different from the original. SW- Pt doing well. No ctx, vb, lof. Good FM PE: Gen- NAD, well appearing Abd- Soft, gravid, NT See flowsheet A/p 37 wk gestation - GBS positive - Reviewed labor precautions - Weekly visits Alo Thompson DO [facility] 09-18-2024 Miscellaneous Notes Formattin g of this note might be different from the original. SW- Pt doing well. No ctx, vb, lof. Good FM PE: Gen- NAD, well appearing Abd- Soft, gravid, NT See flowsheet A/p 37 wk gestation - GBS positive - Reviewed labor precautions - Weekly visits lAo Thompson DO documented in this encounter [facility] 09-18-2024 Instructions Karen Dimas MA - 09/18/2024 1:22 PM EDT SEQUENTIAL SCREENINGS The [facility] offers sequential screenings for women who [...] It will require an appointment with our maintenance technician. This is not an ultrasound performed [...] the above symptoms, contact our office at [phone] and ask to speak with a nurse. After hours, you can call doctors registry at [phone] OR call [facility] at [phone] and ask to have the doctor application security developer paged. If you consider this an emergency, dial 9-1-0 or go to your nearest emergency department. NEED HELP? Are you dealing with a violent or abusive relationship? Are you a victim of rape or sexual assult? Call [facility] ([place]) 24 hour Crisis Hotline: 178.753.4690 or 441-198-7347. MANUAL Your Guide to a Healthy manual is now on-line. Visit [email or web address] to download your free copy documented in this encounter [facility] 09-12-2024 Note HNO ID: [id number] Author: CASTILLO MCKEON MD Service: ? Author Type: Physician Type: Progress Notes Filed: 09/12/2024 10:52 Note Text: RR- VB No. LOF No. CTXS some BH, crampy. no regular ctxs. Movement: present. Other c/o: heartburn not relived w/ tums Medication list reviewed. SENSITIVE EXAM: The sensitive examination was discussed with the Patient or Patient's Authorized Brand Ambassador. As applicable, any other physician, advance practice provider, medical student, or other health professional student that will be observing or involved in the sensitive examination for educational or training purposes was discussed with the Patient or Authorized Brand Ambassador. The Patient or Authorized Brand Ambassador has agreed to proceed with the sensitive [...] of high risk in third trimester ([facility]) Orders: URINE OB DIP B/O Obesity affecting in third trimester, unspecified obesity type ([facility]) Orders: URINE OB DIP B/O Heartburn during in third trimester ([facility]) rx pepcid reviewed urine dip. Brief US confirms vtx f/u 1 week or prn Castillo Mckeon M.D. [facility] 09-12-2024 History of Presen t illness Narrative RR- VB No. LOF No. CTXS some BH, crampy. no regular ctxs. Movement: present. Other c/o: heartburn not relived w/ tums Medication list reviewed. SENSITIVE EXAM: The sensitive examination was discussed with the Patient or Patient's Authorized Brand Ambassador. As applicable, any other physician, advance practice provider, medical student, or other health professional student that will be observing or involved in the sensitive examination for educational or training purposes was discussed with the Patient or Authorized Brand Ambassador. The Patient or Authorized Brand Ambassador has agreed to proceed with the sensitive [...] of high risk in third trimester ([facility]) Orders: URINE OB DIP B/O Obesity affecting in third trimester, unspecified obesity type ([facility]) Orders: URINE OB DIP B/O Heartburn during in third trimester ([facility]) rx pepcid reviewed urine dip. Brief US confirms vtx f/u 1 week or prn Castillo Mckeon M.D. documented in this encounter [facility] 09-12-2024 Instructions Leah Villaseñor MA - 09/12/2024 10:14 AM EDT SEQUENTIAL SCREENINGS The [facility] offers sequential screenings for women who [...] It will require an appointment with our maintenance technician. This is not an ultrasound performed [...] the above symptoms, contact our office at [phone] and ask to speak with a nurse. After hours, you can call doctors registry at [phone] OR call [facility] at [phone] and ask to have the doctor application security developer paged. If you consider this an emergency, dial 9-1-3 or go to your nearest emergency department. NEED HELP? Are you dealing with a violent or abusive relationship? Are you a victim of rape or sexual assult? Call [facility] ([place]) 24 hour Crisis Hotline: 332.960.6460 or 121-665-7919. MANUAL Your Guide to a Healthy manual is now on-line. Visit [email or web address] to download your free copy documented in this encounter [facility] 09-04-2024 Telephone encount er Note Noted. Thanks! Janelle Marin MD [facility] 09-04-2024 Miscellaneous Notes Formattin g of this note might be different from the original. Noted. Thanks! Janelle Marin MD Spoke with in ED. All work up normal. Patient D/Cd home. Delfina Watson APRN.CNM documented in this encounter [facility] 09-04-2024 Telephone encount er Note Spoke with in ED. All work up normal. Patient D/Cd home. Delfina Watson APRN.CNM [facility] 09-04-2024 Discharge summary [facility] 09-04-2024 Radiology Diagnostic study note [facility] Imaging Services [address] [place] [address] CTA Chest W/WO Contrast MR#: [id number] Acct: [id number] Name: AMIRAH WOODARD Rep #: [id number] : 2005 F 19 From: Gatito Moreno MD PCP: Dr. Ruiz Vega, DO Status: RE G ER Study:CTA Chest W/WO Contrast Date of Exam: 09/04/24 Exam# [id number] Ordering Dr: Raisa Richardson MD PROCEDURE: CTA [...] dissection No acute pulmonary process Reading Location: [id number] CC: Dr. Conrado Richardson MD; Dr. Ruiz Vega, DO ~ Director Enterprise Systems: Signed [facility] 09-04-2024 Telephone encounter Note Patient should be in ED at this time. No concern about urine dip. Janelle Marin MD [facility] 09-04-2024 Miscellaneous Notes Patient should be in ED at this time. No concern about urine dip. Janelle Marin MD documented in this encounter [facility] 09-04-2024 Progress note Formatting of t [...] Orders: URINE OB DIP B/O Patient to [facility] for eval of tachycardia and Shortness of Breath. No evidence labor. Janelle Marin MD [facility] 09-04-2024 Miscellaneous Notes KJ - S: Patient seen urgently for heart racing and Shortness of Breath that started this morning. Denies fevers/chils. Amirah denies LOF, contractions or vaginal bleeding. She reports stable cramps. O: 35w0d, see flow sheet SENSITIVE EXAM: Sensitive exam not performed. A/P: Assessment & Plan Supervision of high risk in third trimester ([facility]) Orders: URINE OB DIP B/O Obesity affecting in third trimester, unspecified obesity type ([facility]) Orders: URINE OB DIP B/O 35 weeks gestation of ([facility]) Orders: URINE OB DIP B/O Patient to [facility] for eval of tachycardia and Shortness of Breath. No evidence labor. Janelle Marin MD documented in this encounter [facility] 09-04-2024 Instructions Cassie Abad MA - 09/04/2024 9:30 AM EDT SEQUENTIAL SCREENINGS The [facility] offers sequential screenings for women who [...] It will require an appointment with our maintenance technician. This is not an ultrasound performed [...] the above symptoms, contact our office at [phone] and ask to speak with a nurse. After hours, you can call doctors registry at [phone] OR call [facility] at [phone] and ask to have the doctor application security developer paged. If you consider this an emergency, dial 9-1-9 or go to your nearest emergency department. NEED HELP? Are you dealing with a violent or abusive relationship? Are you a victim of rape or sexual assult? Call [facility] ([place]) 24 hour Crisis Hotline: 217.221.1106 or 267-054-5329. MANUAL Your Guide to a Healthy manual is now on-line. Visit [email or web address] See to download your free copy documented in this encounter [facility] 08-30-2024 Progress note Formatting of t his note might be different from the original. S: Amirah Woodard is a 19 year old female who presents at 34 weeks gestation for a routine visit. Positive movements. 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 Requesting to [...] GERRI with GBS La Del Castillo APRN.CNM [facility] Work Phone: 08-30-2024 Miscellaneous Notes S: Amirah Woodard is a 19 year old female who presents at 34 weeks gestation for a routine visit. Positive movements. 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 Requesting to [...] APRN.CNM documented in this encounter [facility] 08-30-2024 Instructions La Del Castillo APRN.CNM - 08/30/2024 2:46 PM EDT Images from the original note were not included. SEQUENTIAL SCREENINGS The [facility] offers sequential screenings for women who [...] It will require an appointment with our maintenance technician. 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 Add soaked dates to homemade nut butter for a sweet treat. Add dates to casandra homemade salad dressing. Add dates during easily with these yummy (paleo friendly) bars made from dates. What Is Red Raspberry Lamesa Tea? Red raspberry leaf tea comes from [...] , and too. How Much Red Raspberry Lamesa Tea to Drink? With your doctor or shoemaker apprentice s approval, start with 1 cup of [...] because of uterine cramping. Is Red Raspberry Lamesa Tea the Same as Raspberry [place]amesa Tea? How About Plain Old Raspberry Tea? Sometimes. You really need to look at the ingredients to be sure. Note that there is no difference between red raspberry leaf and raspberry leaf. Fashion One or ResoServ Raspberry Lamesa Tea are two good brands. The red [...] of RRLT outlined in this article. [employer] www.Behind the Burner I named this 'circuit' after my friend [...] sideways, 2 at a time, (have a teacher of the emotionally disturbed downstairs of you!), take a walk outside [...] the pelvis. Katey Harris: Circuit Creator - www.Broadcast Pixundbirthcollective.Categorical Nicolette Heaton, LEONEL, BDT (MARIANN), LCCE, FACCE: Supporting Content - www.GetSetjazAppLayerdayana.Categorical Lindsey Griffith: Photography - www.Zzzz[employer] ltd.wabeo Meghna Green CD/CDT (NICHOLAS): Print and Electronic Equipment Repairmen - www.WSI Onlinebiz Circuit Masterminds [employer] www.Behind the Burner SIGNS AND SYMPTOMS OF LABOR 1. Contractions every 10 minutes or more often 2. Clear, pink, or brownish fluid (water) leaking from vagina 3. Feeling that baby is pushing down, pressure 4. Low, dull backache 5. Cramps that feel like a period 6. Cramps with or without diarrhea If you notice any of the above symptoms, contact our office at [phone] and ask to speak with a nurse. After hours, you can call doctors registry at [phone] OR call [facility] at [phone] and ask to have the doctor application security developer paged. If you consider this an emergency, dial 9-1- or go to your nearest emergency department. NEED HELP? Are you dealing with a violent or abusive relationship? Are you a victim of rape or sexual assult? Call [facility] ([place]) 24 hour Crisis Hotline: 459.425.3578 or 727-024-9912. MANUAL Your Guide to a Healthy manual is now on-line. Visit [email or web address] See to download your free copy documented in this encounter [facility] 08-16-2024 Progress note Formatting of t [...] of high risk in third trimester ([facility]) - ICD9: V23.9, ICD10: O09.93 (primary diagnosis) - Continue PNV and LDA 2. 32 weeks gestation of ([facility]) - ICD9: V22.2, ICD10: Z3A.32 - Discussed child care center assistant director, support band, gentle stretching for musculoskeletal pain - Discussed signs of Florin Tan - increase hydration 3. Obesity affecting in third trimester, unspecified obesity type ([facility]) - ICD9: 649.13, ICD10: O99.213 - Pre BMI 31 PTL precautions and kick counts reviewed. RTO in 2 weeks or sooner as needed. Lindsey Moreno APRN.RING MAKER [facility] 08-16-2024 Miscellaneous Notes EH - S: [...] of high risk in third trimester ([facility]) - ICD9: V23.9, ICD10: O09.93 (primary diagnosis) - Continue PNV and LDA 2. 32 weeks gestation of ([facility]) - ICD9: V22.2, ICD10: Z3A.32 - Discussed child care center assistant director, support band, gentle stretching for musculoskeletal pain - Discussed signs of Florin Tan - increase hydration 3. Obesity affecting in third trimester, unspecified obesity type (HCC) - ICD9: 649.13, ICD10: O99.213 - Pre BMI 31 PTL precautions and kick counts reviewed. RTO in 2 weeks or sooner as needed. Lindsey Moreno APRN.RING MAKER documented in this encounter [facility] 08-16-2024 Instructions Yumiko Meza MA - 08/16/2024 2:22 PM EDT SEQUENTIAL SCREENINGS The [facility] offers sequential screenings for women who [...] It will require an appointment with our maintenance technician. This is not an ultrasound performed [...] the above symptoms, contact our office at [phone] and ask to speak with a nurse. After hours, you can call doctors registry at [phone] OR call [facility] at [phone] and ask to have the doctor application security developer paged. If you consider this an emergency, dial or go to your nearest emergency department. NEED HELP? Are you dealing with a violent or abusive relationship? Are you a victim of rape or sexual assult? Call [facility] ([place]) 24 hour Crisis Hotline: 469.971.7909 or 663-750-7926. MANUAL Your Guide to a Healthy manual is now on-line. Visit [email or web address] See to download your free copy documented in this encounter [facility] 08-13-2024 Note HNO ID: [id number] Author: RUIZ VEGA, DO Service: ? Author [...] Rhonda. - Planning a vaginal delivery at [place]. - Taking vitamins; denies nausea or emesis. 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 Recording using [employer] software for draft documentation of the visit was discussed with the patient/authorized retail field representative; all questions welcomed and answered. Patient/authorized retail field representative agreed to proceed [facility] 08-13-2024 History of Present illness Narrative Pennie Woodard is a 19-year-old female, 1 para 0, presenting for an initial visit and evaluation of -related symptoms. : - Currently 31-32 weeks gestation with a male fetus; ANA: October 09. - First . - care managed by Dr. Mckeon and team; next appointment scheduled with Lindsey and La. - Planning a vaginal delivery at [place]. - Taking vitamins; denies nausea or emesis. 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 Recording using [employer] software for draft documentation of the visit was discussed with the patient/authorized retail field representative; all questions welcomed and answered. Patient/authorized retail field representative agreed to proceed documented in this encounter [facility] 08-08-2024 Telephone encounter Note Order signed and faxed. Caroline Mora RN [facility] 08-08-2024 Miscellaneous Notes Order signed and faxed. Caroline Mora RN Breast pump request received from [employer]. Order to provider to sign. Caroline Mora RN documented in this encounter [facility] 08-06-2024 Telephone encounter Note Breast pump request received from [employer]. Order to provider to sign. Caroline Mora RN [facility] 08-03-2024 Telephone encounter Note 3rd risk assessment form submitted 08/03/24 Tio Hutchison RN [facility] 08-03-2024 Miscellaneous Notes 3rd risk assessment form submitted 08/03/24 Tio Hutchison RN documented in this encounter [facility] 08-01-2024 Progress note Formatting of t [...] unspecified trigger Castillo Mckeon M.D. [facility] 08-01-2024 Miscellaneous Notes RR- VB No. [...] of high risk in third trimester ([facility]) Orders: COMPLETE BLOOD COUNT AND DIFFERENTIAL; Future [...] M.D. documented in this encounter [facility] 07-20-2024 Note HNO ID: [id number] Author: LINDSEY MORENO APRN.RING MAKER Service: ? Author Type: Nurse Practitioner Type: [...] of high risk in third trimester ([facility]) - ICD9: V23.9, ICD10: O09.93 (primary diagnosis) - Continue PNV and LDA 2. 28 weeks gestation of ([facility]) - ICD9: V22.2, ICD10: Z3A.28 - 1 hour GCT, CBC, and RPR today - Rh positive - Declines TDAP - LARC form reviewed and signed. Declines. - Depression screen negative - Opioid screen negative - plan form discussed and given to Amirah - Reviewed how to pre register through [facility] - Planning Paragard during period 3. Obesity affecting in third trimester, unspecified obesity type (FORMERLY [facility]) - ICD9: 649.13, ICD10: O99.213 - Pre BMI 32 4. Vaginal discharge during in third trimester (FORMERLY [facility]) - ICD9: 646.83, 623.5, ICD10: O26.893, N89.8 - BACTERIAL VAGINOSIS NAAT - FRANCO/TRICHOMONAS NAAT PTL precautions and kick counts reviewed. RTO in 2 weeks or sooner as needed. Lindsey Moreno APRN.RING MAKER [facility] 07-20-2024 History of Present illness Narrative EH [...] of high risk in third trimester (FORMERLY [facility]) - ICD9: V23.9, ICD10: O09.93 (primary diagnosis) [...] - Reviewed how to pre register through [facility] - Planning Paragard during period 3. Obesity affecting in third trimester, unspecified obesity type (FORMERLY [facility]) - ICD9: 649.13, ICD10: O99.213 - Pre BMI 32 4. Vaginal discharge during in third trimester (FORMERLY [facility]) - ICD9: 646.83, 623.5, ICD10: O26.893, N89.8 - BACTERIAL VAGINOSIS NAAT - FRANCO/TRICHOMONAS NAAT PTL precautions and kick counts reviewed. RTO in 2 weeks or sooner as needed. Lindsey Moreno APRN.RING MAKER documented in this encounter [facility] 07-20-2024 Instructions Yumiko Meza MA - 07/20/2024 8:16 AM EDT SEQUENTIAL SCREENINGS The [facility] offers sequential screenings for women who [...] It will require an appointment with our maintenance technician. This is not an ultrasound performed [...] the above symptoms, contact our office at [phone] and ask to speak with a nurse. After hours, you can call doctors registry at [phone] OR call [facility] at [phone] and ask to have the doctor application security developer paged. If you consider this an emergency, dial 9-1-2 or go to your nearest emergency department. NEED HELP? Are you dealing with a violent or abusive relationship? Are you a victim of rape or sexual assult? Call [facility] ([place]) 24 hour Crisis Hotline: 473.611.1297 or 398-409-8106. MANUAL Your Guide to a Healthy manual is now on-line. Visit [email or web address] See to download your free copy documented in this encounter [facility] 07-19-2024 Telephone encounter Note noted. thanks. Castillo Mckeon MD [facility] Work Phone: 07-19-2024 Miscellaneous Notes noted. [...] Kia Sheldon, JIA documented in this encounter [facility] 07-19-2024 Telephone encounter Note 28w2d Patient [...] H&P faxed to L&D. Kia Sheldon, RN [facility] 07-09-2024 Telephone encounter Note agree [facility] Work Phone: 07-09-2024 Miscellaneous Notes agree documented in this encounter [facility] 06-21-2024 Progress note Formatting of t [...] visit La Del Castillo APRN.CNM [facility] 06-21-2024 Miscellaneous Notes S: Amirah Woodard [...] APRN.CNM documented in this encounter [facility] 06-21-2024 Instructions Shree Santos MA - 06/21/2024 1:02 PM EDT SEQUENTIAL SCREENINGS The [facility] offers sequential screenings for women who [...] It will require an appointment with our maintenance technician. This is not an ultrasound performed [...] the above symptoms, contact our office at [phone] and ask to speak with a nurse. After hours, you can call [facility] at [phone] OR call [facility] at [phone] and ask to have the doctor application security developer paged. If you consider this an emergency, dial 11-05-3 or go to your nearest emergency department. NEED HELP? Are you dealing with a violent or abusive relationship? Are you a victim of rape or sexual assult? Call [facility] ([place]) 24 hour Crisis Hotline: 583.317.2516 or 409-584-7837. MANUAL Your Guide to a Healthy manual is now on-line. Visit [email or web address] See to download your free copy documented in this encounter [facility] 06-19-2024 Progress note Formatting of t [...] ANEMIA REFLEX PANEL; Future Obesity in (FORMERLY [facility]) Screening for diabetes mellitus Orders: GESTATIONAL GLUCOSE SCREEN, 1-HOUR, 50 GRAM, NON-FASTING; Future Advised on musculoskeletal pain in . Discussed if any CP/SOB should call immediately. Janelle Marin MD [facility] 06-19-2024 Miscellaneous Notes KJ - S: [...] ANEMIA REFLEX PANEL; Future Obesity in (FORMERLY [facility]) Screening for diabetes mellitus Orders: GESTATIONAL GLUCOSE SCREEN, 1-HOUR, 50 GRAM, NON-FASTING; Future Advised on musculoskeletal pain in . Discussed if any CP/SOB should call immediately. Janelle Marin MD documented in this encounter [facility] 06-19-2024 Instructions Yumiko Meza MA - 06/19/2024 2:34 PM EDT SEQUENTIAL SCREENINGS The [facility] offers sequential screenings for women who [...] It will require an appointment with our maintenance technician. This is not an ultrasound performed [...] the above symptoms, contact our office at [phone] and ask to speak with a nurse. After hours, you can call doctors registry at [phone] OR call [facility] at [phone] and ask to have the doctor application security developer paged. If you consider this an emergency, dial 9-- or go to your nearest emergency department. NEED HELP? Are you dealing with a violent or abusive relationship? Are you a victim of rape or sexual assult? Call [facility] ([place]) 24 hour Crisis Hotline: 726.760.8014 or 221-151-6492. MANUAL Your Guide to a Healthy manual is now on-line. Visit [email or web address] to download your free copy documented in this encounter [facility] 06-06-2024 Progress note Formatting of t [...] visit La Del Castillo APRN.CNM [facility] 06-06-2024 Miscellaneous Notes S: Amirah Woodard [...] APRN.CNM documented in this encounter [facility] 06-06-2024 Shree Beltran MA - 06/06/2024 1:06 PM EDT SEQUENTIAL SCREENINGS The [facility] offers sequential screenings for women who [...] It will require an appointment with our maintenance technician. This is not an ultrasound performed [...] the above symptoms, contact our office at [phone] and ask to speak with a nurse. After hours, you can call doctors registry at [phone] OR call [facility] at [phone] and ask to have the doctor application security developer paged. If you consider this an emergency, dial 8-3-9 or go to your nearest emergency department. NEED HELP? Are you dealing with a violent or abusive relationship? Are you a victim of rape or sexual assult? Call [facility] ([place]) 24 hour Crisis Hotline: 431.553.5083 or 078-017-2392. MANUAL Your Guide to a Healthy manual is now on-line. Visit [email or web address] See to download your free copy documented in this encounter [facility] 06-06-2024 Telephone encounter Note 22w1d Patient [...] patient accepted. Vivian Adams RN [facility] 06-06-2024 Miscellaneous Notes 22w1d Patient called [...] RN documented in this encounter [facility] 05-28-2024 Telephone encounter Note 2nd risk assessment form submitted 05/28/24 Tio Hutchison RN [facility] 05-28-2024 Miscellaneous Notes 2nd risk assessment form submitted 05/28/24 Tio Hutchison RN documented in this encounter [facility] 05-25-2024 Progress note Formatting of t [...] ICD10: Z3A.20 Kia Lucero MD [facility] 05-25-2024 Miscellaneous Notes S: Amirah Woodard [...] MD documented in this encounter [facility] 05-25-2024 Instructions Cassie Abad MA - 05/25/2024 2:03 PM EDT SEQUENTIAL SCREENINGS The [facility] offers sequential screenings for women who [...] It will require an appointment with our maintenance technician. This is not an ultrasound performed [...] the above symptoms, contact our office at [phone] and ask to speak with a nurse. After hours, you can call doctors registry at [phone] OR call [facility] at [phone] and ask to have the doctor application security developer paged. If you consider this an emergency, dial 9-1-6 or go to your nearest emergency department. NEED HELP? Are you dealing with a violent or abusive relationship? Are you a victim of rape or sexual assult? Call [facility] ([place]) 24 hour Crisis Hotline: 443.937.9031 or 430-742-3703. MANUAL Your Guide to a Healthy manual is now on-line. Visit [email or web address] See to download your free copy documented in this encounter [facility] 05-01-2024 Telephone encounter Note Left message for patient to call office. Kia Sheldon RN [facility] 05-01-2024 Miscellaneous Notes Left message for patient to call office. Kia Sheldon, RN Noted & agree with recommendations. If patient has increased LOF tonight I recommend going to [facility]. Janelle Marin MD 17w0d Calling concerned [...] RN documented in this encounter [facility] 05-01-2024 Telephone encounter Note Noted & agree with recommendations. If patient has increased LOF tonight I recommend going to [facility]. Janelle Marin MD [facility] Work Phone: 05-01-2024 Telephone encounter Note [...] with it. Please advise. Vivian Adams RN [facility] 04-27-2024 Progress note Formatting of t [...] RTO in 4 weeks Delfina Watson APRN.CNM [facility] 04-27-2024 Miscellaneous Notes MEKA-S: Amirah Woodard [...] APRN.CNM documented in this encounter [facility] 04-27-2024 Instructions Shree Santos MA - 04/27/2024 1:04 PM EST SEQUENTIAL SCREENINGS The [facility] offers sequential screenings for women who [...] It will require an appointment with our maintenance technician. This is not an ultrasound performed [...] the above symptoms, contact our office at [phone] and ask to speak with a nurse. After hours, you can call doctors registry at [phone] OR call [facility] at [phone] and ask to have the doctor application security developer paged. If you consider this an emergency, dial 9-1-1 or go to your nearest emergency department. NEED HELP? Are you dealing with a violent or abusive relationship? Are you a victim of rape or sexual assult? Call [facility] ([facility] 24 hour Crisis Hotline: 531.744.6807 or 787-891-1479. MANUAL Your Guide to a Healthy manual is now on-line. Visit [email or web address] See to download your free copy documented in this encounter [facility] 04-13-2024 Telephone encounter Note Patient notified and voiced understanding. Caroline Mora RN [facility] 04-13-2024 Miscellaneous Notes Patient notified and [...] RN documented in this encounter [facility] 04-13-2024 Telephone encounter Note Agree with plan of care. May try wearing compression stockings if on feet as well. This can help with blood flow back to to heart/head. La Del Castillo APRN.CNM [facility] Work Phone: 04-13-2024 Telephone encounter Note [...] until 04/27/24. Please advise. Marisela Lopez, RN [facility] 04-10-2024 Telephone encounter Note Refill provided. Has adult medicine appointment in August. Thanks. Josiane Goodwin APRN.RING MAKER [facility] 04-10-2024 Miscellaneous Notes Refill provided. Has adult medicine appointment in August. Thanks. Josiane Goodwin APRN.RING MAKER Last [facility]: 10/31/2023 Verify RX Benefits Completed [...] LPN documented in this encounter [facility] 04-10-2024 Telephone encounter Note Last [facility]: 10/31/2023 Verify RX Benefits Completed Last medication [...] season) due on 11/06/2023 Eloisa Suarez LPN [facility] 04-03-2024 Progress note Formatting of t [...] RTO in 4 weeks Delfina Watson APRN.CNM [facility] 04-03-2024 Miscellaneous Notes MEKAUrbanoS: Amirah Woodard [...] APRN.CNM documented in this encounter [facility] 04-03-2024 Instructions Leah Villaseñor MA - 04/03/2024 3:53 PM EST SEQUENTIAL SCREENINGS The [facility] offers sequential screenings for women who [...] It will require an appointment with our maintenance technician. This is not an ultrasound performed [...] the above symptoms, contact our office at [phone] and ask to speak with a nurse. After hours, you can call doctors registry at [phone] OR call [facility] at [phone] and ask to have the doctor application security developer paged. If you consider this an emergency, dial 91-5 or go to your nearest emergency department. NEED HELP? Are you dealing with a violent or abusive relationship? Are you a victim of rape or sexual assult? Call [facility] ([place]) 24 hour Crisis Hotline: 720.495.3745 or 676-816-6838. MANUAL Your Guide to a Healthy manual is now on-line. Visit [email or web address] See to download your free copy documented in this encounter [facility] 03-28-2024 Progress note Formatting of t [...] culture collected and submitted. RTO 04/03 routine [facility] Clinical yeast infection - tx monistat. Duncan Munguia MD [facility] Work Phone: 03-28-2024 Miscellaneous Notes Primigravida at 12 weeks c/o vaginal itching and burning subsequent to a course of amoxicillin for a sinus infection. Sx began 5 days after beginning tx. Denies vaginal bleeding and slightly increased discharge Pelvic exam. 12 week uterus. moderate clumpy white discharge. Yeast culture collected and submitted. RTO 04/03 routine [facility] Clinical yeast infection - tx monistat. Duncan Munguia MD documented in this encounter [facility] 03-28-2024 Instructions Yumiko Meza MA - 03/28/2024 9:08 AM EST SEQUENTIAL SCREENINGS The [facility] offers sequential screenings for women who [...] It will require an appointment with our maintenance technician. This is not an ultrasound performed [...] the above symptoms, contact our office at [phone] and ask to speak with a nurse. After hours, you can call doctors registry at [phone] OR call [facility] at [phone] and ask to have the doctor application security developer paged. If you consider this an emergency, dial -5 or go to your nearest emergency department. NEED HELP? Are you dealing with a violent or abusive relationship? Are you a victim of rape or sexual assult? Call [facility] ([facility] 24 hour Crisis Hotline: 766.407.3933 or 149-975-9540. MANUAL Your Guide to a Healthy manual is now on-line. Visit [email or web address] to download your free copy documented in this encounter [facility] 03-22-2024 Telephone encounter Note Patient notified and voiced understanding. Caroline Mora RN [facility] 03-22-2024 Miscellaneous Notes Patient notified and voiced understanding. Caroline Mora RN Yes. La Del Castillo APRN.CNM Patient 11w2d calling with questions in regards to medication she was prescribed for a sinus infection. Patient was prescribed Amoxicillin 1000 mg BID. Patient wanting to know if that dosage is ok with . Caroline Mora RN documented in this encounter [facility] 03-22-2024 Telephone encounter Note Yes. La Del Castillo APRN.CNM [facility] Work Phone: 03-22-2024 Telephone encounter Note Patient 11w2d calling with questions in regards to medication she was prescribed for a sinus infection. Patient was prescribed Amoxicillin 1000 mg BID. Patient wanting to know if that dosage is ok with . Caroline Mora RN [facility] 03-19-2024 Note HNO ID: [id number] Author: JOSIANE GOODWIN APRN.RING MAKER Service: ? Author Type: Nurse Practitioner Type: [...] provider while in office today. Josiane Goodwin APRN.[facility] 03-19-2024 History of Present illness Narrative [...] Josiane Goodwin APRN.JOSELYN documented in this encounter [facility] 03-13-2024 Note HNO ID: [id number] Author: ROBERTO POWERS PA-C Service: ? Author Type: Physician Supervisor Stitching Department Type: Progress Notes Filed: 03/13/2024 12:33 Note [...] the patient was advised to see her ROOM SERVICE CLERK for further evaluation and management. CLINICAL IMPRESSION: Sore Throat ASSESSMENT/PLAN: 1. Sore throat - ICD9: 462, ICD10: J02.9 - STREP A MOLECULAR (POC) Roberto Powers PA-C [facility] 03-13-2024 History of Present illness Narrative This note was created using Hi[employer]. Subjective Amirah Woodard is a 18 year [...] the patient was advised to see her ROOM SERVICE CLERK for further evaluation and management. CLINICAL IMPRESSION: Sore Throat ASSESSMENT/PLAN: 1. Sore throat - ICD9: 462, ICD10: J02.9 - STREP A MOLECULAR (POC) Roberto Powers PA-C documented in this encounter [facility] 03-10-2024 Telephone encounter Note Reason for Call: 9 weeks , dizziness and felt like she would pass out, vision dark vomiting Denies fever Outcome: Patient warm conferenced to main campus washerette machine operator to assist patient in connecting patient to application security developer provider for LEATHER COVERER Nilda Stiles FACTORY MAINTENANCE MANAGER. [facility] 03-10-2024 Miscellaneous Notes Reason for Call: 9 weeks , dizziness and felt like she would pass out, vision dark vomiting Denies fever Outcome: Patient warm conferenced to main campus washerette machine operator to assist patient in connecting patient to application security developer provider for LEATHER COVERER Nilda Martínezf FACTORY MAINTENANCE MANAGER. documented in this encounter [facility] 02-23-2024 Telephone encounter Note 1st risk assessment form submitted 02/23/24. Pauline Au RN [facility] 02-23-2024 Miscellaneous Notes 1st risk assessment form submitted 02/23/24. Pauline Au RN documented in this encounter [facility] 02-16-2024 Note HNO ID: [id number] Author: NILDA STILES APRN.JOSELYN Service: ? Author Type: Nurse Practitioner Type: Progress Notes Filed: 02/21/2024 09:02 Note Text: 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 INITIAL OB ASSESSMENT HPI: Amirah is a [...] (FLONASE) 50 mcg/actuation nasal spray Use 1 [place] in each nostril once daily. (Patient not [...] Impaired Vision, Ringing (more content not included)... [facility] 02-16-2024 History of Present illness Narrative 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 INITIAL OB ASSESSMENT HPI: Amirah is a [...] (FLONASE) 50 mcg/actuation nasal spray Use 1 [place] in each nostril once daily. (Patient not [...] discussed with the Patient or Patient's Authorized Brand Ambassador. As applicable, any other physician, advance practice provider, medical student, or other health professional student that will be observing or involved in the sensitive examination for educational or training purposes was discussed with the Patient or Authorized Brand Ambassador. The Patient or Authorized Brand Ambassador has agreed to proceed with the sensitive [...] Your guide to a health and the Marketing Coordinator. Reviewed midwifery and blanker press operator services that are available. 2) Screening: [...] APRN.CNP documented in this encounter [facility] 02-16-2024 Instructions Kelly Fields LPN - 02/16/2024 3:31 PM EST Please select the following link to access the [facility] Your Guide to a Healthy . [email or web address] Please select the following link to access the [facility] Your Guide to a Healthy . [email or web address] documented in this encounter [facility] 01-30-2024 Note HNO ID: [id number] Author: NILDA STILES APRN.RING MAKER Service: ? Author Type: Nurse Practitioner Type: Progress Notes Filed: 01/30/2024 14:33 Note Text: Amirah Woodard is a 18 year old female who presents for problem visit testing, reported +hpt 01/27/2024, 01/03/2024. HPI: positive test- some cramping no bleeding LMP 01/03/24 OB History T0 L0 SAB0 IAB0 Ectopic0 Multiple0 Live Births0 Risk Assessment Consultant History LMP: 12/09/2023 (Exact Date), Having periods Age at Menarche: Age at First : Age at Menopause: Risk Assessment Consultant History Comments: Sexual Activity: Yes; Male Contraception: [...] (FLONASE) 50 mcg/actuation nasal spray Use 1 [place] in each nostril once daily. loratadine (CLARITIN) [...] NOB appt Review miscarriage precautions Nilda Stiles, FACTORY MAINTENANCE MANAGER.RING MAKER Medical Decision Making: Problems: Low: Acute, uncomplicated illness or injury Data: Unique test(s) ordered: 1 Risk: Low: Low risk from testing/treatment Medical Decision Making Level: 3 - Low [facility] 01-30-2024 History of Present illness Narrative Amirah Woodard is a 18 year old female who presents for problem visit testing, reported +hpt 01/27/2024, 01/03/2024. HPI: positive test- some cramping no bleeding LMP 01/03/24 OB History T0 L0 SAB0 IAB0 Ectopic0 Multiple0 Live Births0 Risk Assessment Consultant History LMP: 12/09/2023 (Exact Date), Having periods Age at Menarche: Age at First : Age at Menopause: Risk Assessment Consultant History Comments: Sexual Activity: Yes; Male Contraception: [...] (FLONASE) 50 mcg/actuation nasal spray Use 1 [place] in each nostril once daily. loratadine (CLARITIN) [...] Low documented in this encounter [facility] 12-15-2023 Telephone encounter Note Patient notified. [...] NILDA STILES Pharmacy Information Pharmacy Address Telephone [facility] [address] [place] [address] [facility] 12-15-2023 Miscellaneous Notes Patient notified. Vivian [...] NILDA STILES Pharmacy Information Pharmacy Address Telephone [facility] [address] [place] [address] Mycoplasma positive. Moxifloxacin x 7 days, then Doxy to follow x 7 days. Partner should be treated. Nilda Stiles APRN.CNP documented in this encounter [facility] 12-15-2023 Telephone encounter Note Mycoplasma positive. Moxifloxacin x 7 days, then Doxy to follow x 7 days. Partner should be treated. Nilda Stiles APRN.JOSELYN [facility] 12-12-2023 Note HNO ID: [id number] Author: NILDA STILES APRN.CNP Service: ? Author Type: Nurse Practitioner Type: Progress Notes Filed: 12/12/2023 16:43 Note Text: 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 Amirah Woodard is a 18 year old [...] L0 SAB0 IAB0 Ectopic0 Multiple0 Live Births0 Risk Assessment Consultant History LMP: 10/08/2023 (Exact Date), Having periods Age at Menarche: Age at First : Age at Menopause: Risk Assessment Consultant History Comments: Sexual Activity: Yes; Male Contraception: [...] (FLONASE) 50 mcg/actuation nasal spray Use 1 [place] in each nostril once daily. loratadine (CLARITIN) [...] discussed with the Patient or Patient's Authorized Brand Ambassador. As applicable, any other physician, advance practice provider, medical student, or other health professional student that will be observing or involved in the sensitive examination for educational or training purposes was discussed with the Patient or Authorized Brand Ambassador. The Patient or Authorized Brand Ambassador has agreed to proceed with the sensitive examination. (Sensitive examination includes inspection and/or palpation of the breasts, pelvis, prostate and anorectal regions). EXAM: LMP 10/08/2023 GENERAL: pleasant, female in no apparent distress HEENT: Normocephalic, atraumatic, mucus membranes moist, and no lesions CHEST: Normal inspiratory effort PELVIC: external genitalia normal, normal Bartholin's glands, urethra, [place]'s glands, no vulvar lesions, no cervical lesions, [...] notify patient of test results. Nilda Stiles APRN.RING MAKER Medical Decision Making: Problems: Moderate: New problem with uncertain prognosis Data: Unique test(s) ordered: 3+ Risk: Low: Low risk from testing/treatment Medical Decision Making Level: 4 - Moderate [facility] 12-12-2023 History of Present illness Narrative 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 Amirah Woodard is a 18 year old [...] L0 SAB0 IAB0 Ectopic0 Multiple0 Live Births0 Risk Assessment Consultant History LMP: 10/08/2023 (Exact Date), Having periods Age at Menarche: Age at First : Age at Menopause: Risk Assessment Consultant History Comments: Sexual Activity: Yes; Male Contraception: [...] (FLONASE) 50 mcg/actuation nasal spray Use 1 [place] in each nostril once daily. loratadine (CLARITIN) [...] discussed with the Patient or Patient's Authorized Brand Ambassador. As applicable, any other physician, advance practice provider, medical student, or other health professional student that will be observing or involved in the sensitive examination for educational or training purposes was discussed with the Patient or Authorized Brand Ambassador. The Patient or Authorized Brand Ambassador has agreed to proceed with the sensitive examination. (Sensitive examination includes inspection and/or palpation of the breasts, pelvis, prostate and anorectal regions). EXAM: LMP 10/08/2023 GENERAL: pleasant, female in no apparent distress HEENT: Normocephalic, atraumatic, mucus membranes moist, and no lesions CHEST: Normal inspiratory effort PELVIC: external genitalia normal, normal Bartholin's glands, urethra, [place]'s glands, no vulvar lesions, no cervical lesions, [...] Moderate documented in this encounter [facility] 10-31-2023 Sommer Panchal PA-C - 10/31/2023 [...] drinks Go! Be healthy, inside and out! [email or web address] Adolescent to Adult Transition Program [facility] cares about helping you and each of our adolescents and young adults make a smooth transition to adult care. If your current doctor is a weight recorder, we will work with you to decide [...] doctor is in family medicine, [facility] will prepare you and your family [...] joining our practice from outside [facility], we will help you request your [...] the use of evidence-driven strategies for health respiratory care technician, youth, young adults, and their families. www.gottransition.org https://gottransition.org/resource /?epl-mncwro-xlcxdot documented in this encounter [facility] 10-31-2023 Note HNO ID: [id number] Author: SOMMER HERNANDEZ PA-C Service: ? Author Type: Physician Supervisor Stitching Department Type: Progress Notes Filed: 11/04/2023 07:46 Note Text: WELL VISIT PEDIATRIC 18+ YRS OLD Amirah is a 18 year old who presents today for well exam. SUBJECTIVE CONCERNS: Yeast infection in vaginal area, scalp, belly button - completed 7 day course [place], 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 loratadine (CLARITIN) [...] satisfactory Screening tools reviewed and discussed with patient/[id number]-[id number]-7 and Social Determinants of Health. Please see [...] hard Transportation Ne (more content not included)... [facility] 10-31-2023 History of Present illness Narrative WELL VISIT PEDIATRIC 18+ YRS OLD Amirah is a 18 year old who presents today for well exam. SUBJECTIVE CONCERNS: Yeast infection in vaginal area, scalp, belly button - completed 7 day course [place], 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 loratadine (CLARITIN) [...] satisfactory Screening tools reviewed and discussed with patient/[id number]-[id number]-5 and Social Determinants of Health. Please see [...] and safety. - Dental care discussed. - EventTools handout given (See Patient Instructions). - No immunizations were given at this visit. - Follow up in one year for routine physical. Sommer Hernandez PA-C documented in this encounter [facility] 10-28-2023 Telephone encounter Note The following approved medication requests have been transmitted electronically. Requested Prescriptions Pending Prescriptions Disp Refills albuterol HFA (PROVENTIL HFA, VENTOLIN HFA) 90 mcg/actuation inhaler 18 g 0 Sig: Inhale 2 Puffs as instructed every 4 hours as needed for wheezing/shortness of breath. Que Chavez MD [facility] 10-28-2023 Miscellaneous Notes The following approved [...] RN documented in this encounter [facility] 10-28-2023 Telephone encounter Note Last WCC: [...] season) due on 11/05/2022 Antonina Morse RN [facility] 08-25-2023 History of Present illness Narrative Amirah Woodard is a 18 year old female who presents for problem visit burning with intercourse HPI: pt states that her previous symptoms are cleared up, but will have vaginal burning with intercourse and after. OB History T0 L0 SAB0 IAB0 Ectopic0 Multiple0 Live Births0 Risk Assessment Consultant History LMP: 07/04/2023 (Exact Date), Having periods Age at Menarche: Age at First : Age at Menopause: Risk Assessment Consultant History Comments: Sexual Activity: Yes; Male Contraception: [...] (FLONASE) 50 mcg/actuation nasal spray Use 1 [place] in each nostril once daily. albuterol HFA [...] Low documented in this encounter [facility] 08-21-2023 Instructions Alecia Mendez APRN.JOSELYN - [...] swallow. documented in this encounter [facility] 08-21-2023 History of Present illness Narrative Subjective The history is provided by the patient. No fire loss prevention engineer was used. HPI Amirah Woodard is a 18 year old female who presents today for CC of sore throat and ever for one day. She is also having nasal congestion, and cough. She has used ibuprofen with short term relief. 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 BP 112/81 Pulse 104 Temp 36.4 C [...] have confirmed and edited as necessary, the [facility] Review of Systems Constitutional: Negative for chills [...] APRN.JOSELYN documented in this encounter [facility] 08-02-2023 Telephone encounter Note BV positive. To treat with Flagyl 500mg PO BID for 7 days. 1) No alcohol during treatment and for 24 hours after last dose. 2) No intercourse during treatment. 3) Probiotic by mouth once daily for 30 days or as needed. I would also recommend using boric acid vaginal suppositories for 7 night. Nilda Stiles APRN.CNP [facility] 08-02-2023 Miscellaneous Notes BV positive. To [...] APRN.JOSELYN documented in this encounter [facility] 07-29-2023 Telephone encounter Note The following approved medication requests have been transmitted electronically. Requested Prescriptions Pending Prescriptions Disp Refills fluticasone (FLONASE) 50 mcg/actuation nasal spray 1 Each 3 Sig: Use 1 [place] in each nostril once daily. albuterol HFA (PROVENTIL HFA, VENTOLIN HFA) 90 mcg/actuation inhaler 18 g 0 Sig: Inhale 2 Puffs as instructed every 4 hours as needed for wheezing/shortness of breath. Que Chavez MD [facility] 07-29-2023 Miscellaneous Notes The following approved medication requests have been transmitted electronically. Requested Prescriptions Pending Prescriptions Disp Refills fluticasone (FLONASE) 50 mcg/actuation nasal spray 1 Each 3 Sig: Use 1 [place] in each nostril once daily. albuterol HFA (PROVENTIL HFA, VENTOLIN HFA) 90 mcg/actuation inhaler 18 g 0 Sig: Inhale 2 Puffs as instructed every 4 hours as needed for wheezing/shortness of breath. Que Chavez MD Last [facility]: 10/05/22 Verify RX Benefits Completed Last medication [...] RN documented in this encounter [facility] 07-29-2023 Telephone encounter Note Refill request received via eTectt. Patient last seen in office on 07/11/23. Caroline Mora RN [facility] 07-29-2023 Miscellaneous Notes Refill request received via eTectt. Patient last seen in office on 07/11/23. Caroline Mora RN documented in this encounter [facility] 07-29-2023 Telephone encounter Note Last [facility]: 10/05/22 Verify RX Benefits Completed Last medication [...] Never done Antonina Morse RN [facility] 07-29-2023 History of Present illness Narrative Long Lines Operator offered: Patient declines. Amirah Woodard is a [...] external genitalia normal, normal Bartholin's glands, urethra, [place]'s glands, no vulvar lesions, no cervical lesions, [...] Moderate documented in this encounter [facility] 07-12-2023 Note Addended by: NILDA STILES on: 07/12/2023 02:21 PM Modules accepted: Orders [facility] 07-12-2023 Miscellaneous Notes Addended by: NILDA [...] APRN.CNP documented in this encounter [facility] 07-12-2023 Telephone encounter Note BV positive. To treat with Flagyl 500mg PO BID for 7 days. 1) No alcohol during treatment and for 24 hours after last dose. 2) No intercourse during treatment. 3) Probiotic by mouth once daily for 30 days or as needed. Nilda Stiles APRN.CNP [facility] 07-11-2023 History of Present illness Narrative Long Lines Operator offered: Patient declines. Amirah Woodard is a [...] external genitalia normal, normal Bartholin's glands, urethra, [place]'s glands, no vulvar lesions, no cervical lesions, [...] Low documented in this encounter [facility] 06-29-2023 Telephone encounter Note The following approved medication requests have been transmitted electronically. Requested Prescriptions Pending Prescriptions Disp Refills albuterol HFA (PROVENTIL HFA, VENTOLIN HFA) 90 mcg/actuation inhaler 18 g 0 Sig: Inhale 2 Puffs as instructed every 4 hours as needed for wheezing/shortness of breath. Que Chavez MD [facility] 06-29-2023 Miscellaneous Notes The following approved medication requests have been transmitted electronically. Requested Prescriptions Pending Prescriptions Disp Refills albuterol HFA (PROVENTIL HFA, VENTOLIN HFA) 90 mcg/actuation inhaler 18 g 0 Sig: Inhale 2 Puffs as instructed every 4 hours as needed for wheezing/shortness of breath. Que Chavez MD documented in this encounter [facility] 06-24-2023 History of Present illness Narrative [...] MD documented in this encounter [facility] 05-16-2023 History of Present illness Narrative [...] MD documented in this encounter [facility] 05-13-2023 Miscellaneous Notes Linked to appointment. Jody Hall RN Done Janelle Marin MD Patient is scheduled with today for IUD removal. Please file pending order to attach to her visit. Thank you. Kia Sheldon RN documented in this encounter [facility] 05-13-2023 History of Present illness Narrative [...] PATIENT PRESENTS WITH AN IMPLANTABLE OR ATTACHED ASSISTANT REAL ESTATE MANAGER: No RADIOLOGY DEPARTMENT: Ultrasound PERIPHERAL IV DATA: Not applicable SIGNED BY: Alla Daivd RDMS May 13, 2023 8:31 AM documented in this encounter [facility] 05-03-2023 History of Present illness Narrative [...] L0 SAB0 IAB0 Ectopic0 Multiple0 Live Births0 Risk Assessment Consultant History LMP: 04/04/2023 (Exact Date), Having periods Age at Menarche: Age at First : Age at Menopause: Risk Assessment Consultant History Comments: Sexual Activity: Not Currently; Male [...] (FLONASE) 50 mcg/actuation nasal spray Use 1 [place] in each nostril once daily. (Patient taking differently: Use 1 [place] in each nostril once daily. 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 I have re-performed the HPI, Physical Examination, Assessment and Plan. Delfina Watson APRN.CNM documented in this encounter [facility] 11-12-2022 Miscellaneous Notes Please see pt's mychart message and further advise. Charis Crook LPN documented in this encounter [facility] 10-05-2022 Instructions Sommer Hernandez PA-C - [...] drinks Go! Be healthy, inside and out! [email or web address] Adolescent to Adult Transition Program [facility] cares about helping you and each of our adolescents and young adults make a smooth transition to adult care. If your current doctor is a weight recorder, we will work with you to decide [...] doctor is in family medicine, [facility] will prepare you and your family [...] joining our practice from outside [facility], we will help you request your [...] the use of evidence-driven strategies for health respiratory care technician, youth, young adults, and their families. www.gottransition.org https://gottransition.org/resource /?ijg-nwqhzw-avvkang documented in this encounter [facility] 10-05-2022 History of Present illness Narrative [...] (FLONASE) 50 mcg/actuation nasal spray Use 1 [place] in each nostril once daily. (Patient taking differently: Use 1 [place] in each nostril once daily. PRN) Olopatadine [...] satisfactory Screening tools reviewed and discussed with patient/[id number]-5 and Social Determinants of Health. Please see [...] safety. - Dental care discussed. - Bright Just Soless handout given (See Patient Instructions). - Patient was counseled [id number] by myself (the billing provider) for the following immunizations and vaccine components, including side effects: HPV. Patient consents for immunization and understands risks and benefits. A VIS sheet on each immunization was given to the patient. - Follow up in one year for routine physical. Sommer Hernandez PA-C documented in this encounter [facility] 07-15-2022 History of Present illness Narrative [...] (FLONASE) 50 mcg/actuation nasal spray Use 1 [place] in each nostril once daily. Olopatadine (PATADAY [...] Low documented in this encounter [facility] 07-12-2022 Miscellaneous Notes She can do a virtual visit since I've seen her this year. Nilda Stiles APRN.CNP Do you want patient to have an in person or virtual visit to discuss? documented in this encounter [facility] 05-27-2022 History of Present illness Narrative Patient presents with: Sore Throat: Cough, chest congestion, runny nose x4 days HPI: Feeling sick for 5 days. Her boyfriend is sick with cough and sore throat also. 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 Positive symptoms: Cough, Sore throat, Nasal Congestion, [...] (FLONASE) 50 mcg/actuation nasal spray Use 1 [place] in each nostril once daily. Olopatadine (PATADAY [...] MD documented in this encounter [facility] 05-10-2022 Miscellaneous Notes Voicemail and [employer] message to pt to offer sooner appt. Pt is currently scheduled for 05/17/22 for vaginal burning with intercourse. When pt calls the office please offer her time tomorrow to be seen. Charis Crook LPN documented in this encounter [facility] 05-07-2022 History of Present illness Narrative PEDIATRIC SICK VISIT SERVICE DATE: 04/18/2022 TEACHING PROVIDER (Physician/PA/FACTORY MAINTENANCE MANAGER) NOTE OF PERSONAL INVOLVEMENT IN CARE: I have personally seen and examined the patient and performed the medical decision-making components. I have reviewed the Physician Supervisor Stitching Department (PA) Student's documentation and verified the findings in the note as written. Signature: Sommer Hernandez PA-C Date: 05/07/2022 Time: 9:01 AM This note was generated by a PA STUDENT working under the supervision of an Attending Physician Supervisor Stitching Department. As applicable, the findings, conclusions, and assessment of risk have been confirmed by a qualified provider. The note is NOT considered authenticated until addended and co-signed by the Attending Physician Supervisor Stitching Department at the beginning of this note. SUBJECTIVE: [...] contacts: No known sick contacts (works at long-term) HISTORY: ACTIVE PROBLEM LIST Allergic Rhinitis - [...] (FLONASE) 50 mcg/actuation nasal spray Use 1 [place] in each nostril once daily. Olopatadine (PATADAY [...] AM documented in this encounter [facility] 05-03-2022 Miscellaneous Notes Please have the patient make another appointment so that we can repeat the vaginal swabs to see if the infection has cleared. Nilda Stiles APRN.JOSELYN documented in this encounter [facility] 04-13-2022 Miscellaneous Notes Patient notified. States [...] APRN.CNP documented in this encounter [facility] 04-12-2022 History of Present illness Narrative [...] external genitalia normal, normal Bartholin's glands, urethra, [place]'s glands, no vulvar lesions, no cervical lesions, [...] Low documented in this encounter [facility] 04-09-2022 Miscellaneous Notes 1st attempt no answer, no voicemail. Called to R/S w/ Paxton for 04/12. Kia Tijerina documented in this encounter [facility] 03-16-2022 History of Present illness Narrative [...] L0 SAB0 IAB0 Ectopic0 Multiple0 Live Births0 Risk Assessment Consultant History LMP: 03/04/2022, Having periods Age at Menarche: Age at First : Age at Menopause: Risk Assessment Consultant History Comments: Sexual Activity: Not Currently; Male [...] (FLONASE) 50 mcg/actuation nasal spray Use 1 [place] in each nostril once daily. Olopatadine (PATADAY [...] external genitalia normal, normal Bartholin's glands, urethra, [place]'s glands, no vulvar lesions, no cervical lesions, [...] Low documented in this encounter [facility] 01-18-2022 Instructions Alecia Mendez APRN.CNP - 01/18/2022 10:23 AM EST covid test ordered You will be notified in 12-24 hours, results available on [facility] Home isolation until covid results are [...] swallow. documented in this encounter [facility] 01-18-2022 History of Present illness Narrative Subjective The history is provided by the patient. No fire loss prevention engineer was used. HPI Amirah Woodard is a 16 year old female who presents today for CC of cough, congestion, sore throat and fever that started on Tuesday. She has use tylenol, and nyquil with short term relief. 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 BP 118/64 Pulse 112 Temp 36.5 C [...] have confirmed and edited as necessary, the [facility] Review of Systems Constitutional: Negative for chills [...] in 24-48 hours with results, available on [employer] - COVID, FLU A/B + RSV, ROUTINE [...] APRN.JOSELYN documented in this encounter [facility] 10-28-2021 History of Present illness Narrative PEDIATRIC SICK VISIT SERVICE DATE: 10/28/2021 TEACHING PROVIDER (Physician/PA/CATRINA) NOTE OF PERSONAL INVOLVEMENT IN CARE: I have personally seen and examined the patient and performed the medical decision-making components. I have reviewed the Physician Supervisor Stitching Department (PA) Student's documentation and verified the findings in the note as written. Signature: Sommer Hernandez PA-C Date: 10/28/2021 Time: 9:59 AM This note was generated by a PA STUDENT working under the supervision of an Attending Physician Supervisor Stitching Department. As applicable, the findings, conclusions, and assessment of risk have been confirmed by a qualified provider. The note is NOT considered authenticated until addended and co-signed by the Attending Physician Supervisor Stitching Department at the beginning of this note. SUBJECTIVE: [...] (FLONASE) 50 mcg/actuation nasal spray Use 1 [place] in each nostril once daily. Olopatadine (PATADAY [...] AM documented in this encounter [facility] 10-05-2021 Instructions Alecia Mendez APRN.RING MAKER - 10/05/2021 1:02 PM EDT covid test ordered You will be notified in 24 -48 hours, [facility] Home [facility] until covid results are [...] swallow. documented in this encounter [facility] 10-05-2021 History of Present illness Narrative [...] have confirmed and edited as necessary, the [facility] Review of Systems Constitutional: Positive for chills, [...] in 24-48 hours with results, available on [employer] - COVID, FLU A/B + RSV, ROUTINE [...] APRN.JOSELYN documented in this encounter [facility] 07-13-2021 Instructions Que Chavez MD - [...] drinks Go! Be healthy, inside and out! [email or web address] Adolescent to Adult Transition Program [facility] cares about helping you and each of our adolescents and young adults make a smooth transition to adult care. If your current doctor is a weight recorder, we will work with you to decide [...] doctor is in family medicine, [facility] will prepare you and your family [...] joining our practice from outside [facility], we will help you request your [...] the use of evidence-driven strategies for health respiratory care technician, youth, young adults, and their families. www.gottransition.org https://Parkt.org/resource /?rtz-hzoxph-ofokxsj Healthy Children Ages & Stages Texting Program HealthyChildren.org is an AAP ([place] [employer]) parenting website. It is [...] https://www.healthychildren.org/En natachash/tips-tools/HealthyChildren-T exting-Program/Pages/default.aspx documented in this encounter [facility] 07-13-2021 History of Present illness Narrative [...] (FLONASE) 50 mcg/actuation nasal spray Use 1 [place] in each nostril once daily. Olopatadine (PATADAY [...] No Screening tools reviewed and discussed with patient/[id number] and Social Determinants of Health. Please see [...] AM documented in this encounter [facility] 06-12-2021 History of Present illness Narrative [...] TDAP VACCINE AGE 7+ IM MENINGOCOCCAL CONJUGATE [id number], IM She has had a partial response [...] 2021 TIME: 9:13 AM Parent/guardian was counseled [id number] by myself (the billing provider) for the following immunizations, including side effects: Menactra and TdaP. Parent/guardian consents for immunization and understands risks and benefits. A VIS sheet on each immunization was offered to the parent. SIGNATURE: Que Chavez MD PATIENT NAME: Amirah Woodard DATE: June 12, 2021 TIME: 9:29 AM documented in this encounter [facility] 06-12-2021 Instructions Que Chavez MD - [...] drinks Go! Be healthy, inside and out! [email or web address] documented in this encounter [facility] 08-09-2016 History of Past i llness Narrative Problem Noted Date Resolved Date Exercise-induced asthma with acute exacerbation 08/09/2016 06/12/2021 documented as of this encounter (statuses as of 06/12/2021) [facility] History of Past illness Narrative* Problem Noted Date Resolved Date Exercise-induced asthma with acute exacerbation 08/09/2016 06/12/2021 documented as of this encounter (statuses as of 07/13/2021) [facility] History of Past illness Narrative* Problem Noted Date Resolved Date Exercise-induced asthma with acute exacerbation 08/09/2016 06/12/2021 documented as of this encounter (statuses as of 09/18/2021) [facility] History of Past illness Narrative* Problem Noted Date Resolved Date Exercise-induced asthma with acute exacerbation 08/09/2016 06/12/2021 documented as of this encounter (statuses as of 10/05/2021) [facility] History of Past illness Narrative* Problem Noted Date Resolved Date Exercise-induced asthma with acute exacerbation 08/09/2016 06/12/2021 documented as of this encounter (statuses as of 10/28/2021) [facility] History of Past illness Narrative* Problem Noted Date Resolved Date Exercise-induced asthma with acute exacerbation 08/09/2016 06/12/2021 documented as of this encounter (statuses as of 12/28/2021) [facility] History of Past illness Narrative* Problem Noted Date Resolved Date Exercise-induced asthma with acute exacerbation 08/09/2016 06/12/2021 documented as of this encounter (statuses as of 01/18/2022) [facility] of Past illness Narrative* Problem Noted Date Resolved Date Exercise-induced asthma with acute exacerbation 08/09/2016 06/12/2021 documented as of this encounter (statuses as of 03/16/2022) [facility] of Past illness Narrative* Problem Noted Date Resolved Date Exercise-induced asthma with acute exacerbation 08/09/2016 06/12/2021 documented as of this encounter (statuses as of 04/09/2022) [facility] of Past illness Narrative* Problem Noted Date Resolved Date Exercise-induced asthma with acute exacerbation 08/09/2016 06/12/2021 documented as of this encounter (statuses as of 04/12/2022) [facility] of Past illness Narrative* Problem Noted Date Resolved Date Exercise-induced asthma with acute exacerbation 08/09/2016 06/12/2021 documented as of this encounter (statuses as of 04/13/2022) [facility] of Past illness Narrative* Problem Noted Date Resolved Date Exercise-induced asthma with acute exacerbation 08/09/2016 06/12/2021 documented as of this encounter (statuses as of 05/03/2022) [facility] of Past illness Narrative* Problem Noted Date Resolved Date Exercise-induced asthma with acute exacerbation 08/09/2016 06/12/2021 documented as of this encounter (statuses as of 05/07/2022) [facility] of Past illness Narrative* Problem Noted Date Resolved Date Exercise-induced asthma with acute exacerbation 08/09/2016 06/12/2021 documented as of this encounter (statuses as of 05/11/2022) [facility] of [facility] illness Narrative* Problem Noted Date Resolved Date Exercise-induced asthma with acute exacerbation 08/09/2016 06/12/2021 documented as of this encounter (statuses as of 05/27/2022) [facility] of Past illness Narrative* Problem Noted Date Resolved Date Exercise-induced asthma with acute exacerbation 08/09/2016 06/12/2021 documented as of this encounter (statuses as of 07/13/2022) [facility] of Past illness Narrative* Problem Noted Date Resolved Date Exercise-induced asthma with acute exacerbation 08/09/2016 06/12/2021 documented as of this encounter (statuses as of 07/16/2022) [facility] of Past illness Narrative* Problem Noted Date Diagnosed Date Resolved Date Exercise-induced asthma with acute exacerbation 08/09/2016 06/12/2021 documented as of this encounter (statuses as of 10/06/2022) [facility] of [facility] illness Narrative* Problem Noted Date Diagnosed Date Resolved Date Exercise-induced asthma with acute exacerbation 08/09/2016 06/12/2021 documented as of this encounter (statuses as of 11/12/2022) [facility] of Past illness Narrative* Problem Noted Date Diagnosed Date Resolved Date Exercise-induced asthma with acute exacerbation 08/09/2016 06/12/2021 documented as of this encounter (statuses as of 04/28/2023) [facility] of Past illness Narrative* Problem Noted Date Diagnosed Date Resolved Date Exercise-induced asthma with acute exacerbation 08/09/2016 06/12/2021 documented as of this encounter (statuses as of 05/13/2023) [facility] of Past illness Narrative* Problem Noted Date Diagnosed Date Resolved Date Exercise-induced asthma with acute exacerbation 08/09/2016 06/12/2021 documented as of this encounter (statuses as of 05/14/2023) [facility] of Past illness Narrative* Problem Noted Date Diagnosed Date Resolved Date Exercise-induced asthma with acute exacerbation 08/09/2016 06/12/2021 documented as of this encounter (statuses as of 05/16/2023) [facility] of Past illness Narrative* Problem Noted Date Diagnosed Date Resolved Date Exercise-induced asthma with acute exacerbation 08/09/2016 06/12/2021 documented as of this encounter (statuses as of 05/18/2023) [facility] of Past illness Narrative* Problem Noted Date Diagnosed Date Resolved Date Exercise-induced asthma with acute exacerbation 08/09/2016 06/12/2021 documented as of this encounter (statuses as of 06/24/2023) [facility] Conrado Richardson [facility] Note Date/Time September 04, 2024 12:01 pm [facility] Medical Records Department [address] [place] [address] Emergency Department Summary 09/04/24 MR#: [id number] Acct: [id number] Name: AMIRAH WOODARD Rep #:[id number] : [...] discomfort that was diffuse. Lightheadedness. 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 Adrienne Marin. 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 Dorsi plantarflexion intact. 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 Normal radial pulses. Back nontender. Neurologically [...] Tylenol for pain. Outpatient follow-up with her ROOM SERVICE CLERK. History & Record Review Discussion w/independent historian: [...] 70.6 H Lymph % (Auto) 16.7 L [place] % (Auto) 8.8 Eos % (Auto) 2.2 [...] dissection No acute pulmonary process Reading Location: [facility] Rhythm Strip Rhythm Strip: Sinus Tach Rate: 113 Ectopy: None EKG Initial EKG: Attestation: I personally reviewed and interpreted this EKG as follows: Interpretation: No Acute Injury Pattern and Sinus Tachycardia Comments: Sinus tachycardia rate of 113 no acute signs of PR or ischemia. Discharge Plan Triage Chief Complaint: Chest Pain ED Provider: Conrado Richardson Dx/Rx/DC Orders Clinical Impression: Chest pain, Third trimester Instructions: ED Chest Pain, Uncertain Cause Prescriptions: No Action albuterol sulfate 90 mcg/actuation HFA aerosol inhaler inhalation Lacto no.[id number]-larch 25B cell-25B cell-50 mg capsule PO One A Day Women's DHA 28 mg iron- 800 mcg combo pack PO Primary Care Provider: Ruiz Vega Referrals: Ruiz Vega DO [Primary Care Provider] - As Needed Janelle Marin MD [Med Staff - Active Staff] - As Needed Activity Restrictions/Additional Instructions: Follow-up your ROOM SERVICE CLERK and your primary care physician as needed. Your test today looked good. No signs of a blood clot or heart attack. Print Language: [place] Disposition Disposition: Home, Self Care What to do if you have Problems For any increased pain, shortness of breath, bleeding, nausea or vomiting, chestpain, or any unexpected problems, contact your Primary Care Provider. Call [facility] ([phone]) or report to the closest Emergency Room. Call 911 if necessary. 09/04/24 1201 <Electronically signed by Conrado Richardson MD> Cosigner Signature (if applicable): CC: Dr. Ruiz Vega DO ~ Signed [facility] Work Phone: Evaluation note* Diagnosis Gastroesophageal reflux disease, unspecified whether esophagitis present- Primary Encounter for immunization Need for other specified prophylactic vaccination against single bacterial disease [facility] Encounter for WCC (well child check) with abnormal findings- Primary Gastroesophageal reflux disease, unspecified whether esophagitis present Allergic rhinitis, unspecified seasonality, unspecified trigger [facility] Diagnosis Pelvic pain in female- Primary Unspecified symptom associated with female genital organs [facility] Diagnosis Upper respiratory symptom- Primary Other symptoms involving respiratory system and chest Suspected COVID-19 virus infection [facility] Diagnosis Seasonal allergies- Primary Allergic rhinitis, cause unspecified [facility] Diagnosis Encounter for immunization- Primary Need for other specified prophylactic vaccination against single bacterial disease [facility] Diagnosis Acute cough- Primary Fever, unspecified fever cause Sore throat Acute pharyngitis URI with cough and congestion [facility] Diagnosis Pelvic pain in female- Primary Unspecified symptom associated with female genital organs Encounter for surveillance of contraceptive pills Surveillance of previously prescribed contraceptive pill [facility] Diagnosis Vaginal irritation- Primary Unspecified noninflammatory disorder of vagina [facility] Diagnosis Dysfunction of both eustachian tubes- Primary Dysfunction of Eustachian tube Seasonal allergies Allergic rhinitis, cause unspecified [facility]* Diagnosis URI, acute- Primary Acute upper respiratory infections of unspecified site Wheezing [facility]* Diagnosis Missed period- Primary Irregular menstrual cycle Encounter for other contraceptive management [facility] Diagnosis Encounter for wellness examination in adult- Primary Encounter for immunization Need for other specified prophylactic vaccination against single bacterial disease [facility] Diagnosis Malpositioned intrauterine device (IUD), initial encounter- Primary Encounter for IUD removal Encounter for removal of intrauterine contraceptive device [facility] Diagnosis Pelvic pain in female Unspecified symptom associated with female genital organs [facility] Diagnosis Encounter for IUD removal- Primary Encounter for removal of intrauterine contraceptive device Displacement of intrauterine contraceptive device, initial encounter Malpositioned intrauterine device (IUD), initial encounter [facility] Diagnosis Vaginal discharge- Primary Leukorrhea, not specified as infective Vaginal itching Pruritus of genital organs Pelvic pain in female Unspecified symptom associated with female genital organs [facility] [place] [facility] Diagnosis Pes planus of both feet- Primary Pain in archer, unspecified laterality Acute upper respiratory infection Acute upper respiratory infections of unspecified site Mild intermittent asthma with (acute) exacerbation [facility] [place] [facility]* Diagnosis Wheezing [facility] [place] [facility]* Diagnosis Vaginal burning- Primary Other specified symptom associated with female genital organs [facility] [place] [facility]* Diagnosis BV (bacterial vaginosis) Vaginitis and vulvovaginitis, unspecified [facility] [place] [facility]* Diagnosis Wheezing [facility] [place] [facility]* Diagnosis Vaginal discharge- Primary Leukorrhea, not specified as infective [facility]* Diagnosis Sore throat- Primary Acute pharyngitis Viral illness Unspecified viral infection, in conditions classified elsewhere and of unspecified site documented [facility] [place] [facility]* Diagnosis Vaginal burning- Primary Other specified symptom associated with female genital organs [facility]* Diagnosis Wheezing [facility] [place] [facility]* Diagnosis Wheezing [facility] [place] [facility]* Diagnosis Encounter for wellness examination in adult- Primary Mild intermittent asthma with (acute) exacerbation Seborrhea Adverse food reaction, initial encounter [facility]* Diagnosis Vaginal discharge- Primary Leukorrhea, not specified as infective Vaginal irritation Unspecified noninflammatory disorder of vagina Family history of thyroid disorder Family history of other endocrine and metabolic diseases documented [facility] [place] [facility]* Diagnosis Encounter for test, result positive- Primary examination or test, positive result [facility]* Diagnosis Encounter for care in first trimester of first - Primary 7 weeks gestation of state, incidental Vaginal irritation Unspecified noninflammatory disorder of vagina BMI 32.0-32.9,adult Body Mass Index 32.0-32.9, adult Supervision of normal first teen in first trimester documented [facility] [place] [facility]* Diagnosis Sore throat- Primary Acute pharyngitis [facility] [place] [facility]* Diagnosis Acute non-recurrent frontal sinusitis- Primary documented in this encounter [facility] note* Diagnosis Vaginal irritation- Primary Unspecified noninflammatory disorder of vagina Vaginal discharge Leukorrhea, not specified as infective Encounter for care in first trimester of first 12 weeks gestation of state, incidental [facility] Diagnosis Supervision of normal first teen in first trimester- Primary 13 weeks gestation of state, incidental Obesity in Obesity complicating , childbirth, or the puerperium, unspecified as to episode of care or not applicable documented [facility] [place] [facility]* Diagnosis Encounter for screening for malformation using ultrasound- Primary 13 weeks gestation of state, incidental documented in this encounter [facility] note* Diagnosis Wheezing documented [facility] [place] [facility]* Diagnosis Supervision of normal first teen in second trimester- Primary Obesity in Obesity complicating , childbirth, or the puerperium, unspecified as to episode of care or not applicable 16 weeks gestation of state, incidental Dizziness Dizziness and giddiness documented [facility] [place] [facility]* Diagnosis Supervision of normal first teen in second trimester- Primary Obesity in Obesity complicating , childbirth, or the puerperium, unspecified as to episode of care or not applicable 20 weeks gestation of state, incidental documented in this encounter [facility] note* Diagnosis Obesity in - Primary Obesity complicating , childbirth, or the puerperium, unspecified as to episode of care or not applicable Supervision of normal first teen in first trimester 13 weeks gestation of state, incidental [facility]* Diagnosis Obesity in (HCC)- Primary Obesity complicating , childbirth, or the puerperium, unspecified as to episode of care or not applicable Supervision of normal first teen in second trimester (HCC) 22 weeks gestation of (HCC) state, incidental Cramping affecting , antepartum (HCC) documented in this encounter [facility] note* Diagnosis 24 weeks gestation of (HCC)- Primary state, incidental Obesity in (HCC) Obesity complicating , childbirth, or the puerperium, unspecified as to episode of care or not applicable Screening for diabetes mellitus * Assessment & Plan Note - Janelle Marin MD - 06/19/2024 2:51 PM EDTAssociated Problem(s): Obesity in (HCC) documented in this encounter [facility] note* Diagnosis 24 weeks gestation of (HCC)- [...] of normal first teen in second trimester ([facility]) Decreased movements in second trimester, single or unspecified fetus ([facility]) documented in this encounter [facility] note* Diagnosis 24 weeks gestation of (HCC)- Primary state, incidental Obesity in (HCC) Obesity complicating , childbirth, or the puerperium, unspecified as to episode of care or not applicable Screening for diabetes mellitus Supervision of high risk in third trimester ([facility])- Primary Unspecified high-risk 28 weeks gestation of ([facility]) state, incidental Obesity affecting in third trimester, unspecified obesity type ([facility]) Vaginal discharge during in third trimester ([facility]) documented in this encounter [facility] note* Diagnosis 24 weeks gestation of (HCC)- Primary state, incidental Obesity in (HCC) Obesity complicating , childbirth, or the puerperium, unspecified as to episode of care or not applicable Screening for diabetes mellitus Supervision of high risk in third trimester ([facility])- Primary Unspecified high-risk 30 weeks gestation of ([facility]) state, incidental Rash Rash and other nonspecific skin eruption Other obesity due to excess calories affecting , antepartum ([facility]) Allergic rhinitis, unspecified seasonality, unspecified trigger * Assessment & Plan Note - Castillo Mckeon MD - 08/01/2024 9:51 AM EDT Associated Problem(s): Supervision of high risk in third trimester ([facility]) Orders: COMPLETE BLOOD COUNT AND DIFFERENTIAL; Future COMPREHENSIVE METABOLIC PANEL; Future BILE ACIDS, TOTAL; Future * Assessment & Plan Note - Castillo Mckeon MD - 08/01/2024 9:51 AM EDT Associated Problem(s): Allergic rhinitis documented [facility] [place] [facility]* Diagnosis 24 weeks gestation of ([facility])- Primary state, incidental Obesity in ([facility]) Obesity complicating , childbirth, or the puerperium, unspecified as to episode of care or not applicable Screening for diabetes mellitus Supervision of high risk in third trimester ([facility])- Primary Unspecified high-risk 30 weeks gestation of ([facility]) state, incidental Rash Rash and other nonspecific skin eruption Other obesity due to excess calories affecting , antepartum ([facility]) Allergic rhinitis, unspecified seasonality, unspecified trigger Well adult exam- Primary Routine general medical examination at a health care facility 31 weeks gestation of ([facility]) state, incidental Class 2 obesity with body mass index (BMI) of 35.0 to 35.9 in adult, unspecified obesity type, unspecified whether serious comorbidity present Gastroesophageal reflux disease without esophagitis Esophageal reflux [facility] [place] [facility]* Diagnosis 24 weeks gestation of (HCC)- Primary state, incidental Obesity in ([facility]) Obesity complicating , childbirth, or the puerperium, unspecified as to episode of care or not applicable Screening for diabetes mellitus Supervision of high risk in third trimester ([facility])- Primary Unspecified high-risk 30 weeks gestation of ([facility]) state, incidental Rash Rash and other nonspecific skin eruption Other obesity due to excess calories affecting , antepartum ([facility]) Allergic rhinitis, unspecified seasonality, unspecified trigger Supervision of high risk in third trimester (HCC)- Primary Unspecified high-risk 32 weeks gestation of (HCC) state, incidental Obesity affecting in third trimester, unspecified obesity type (HCC) documented in this encounter [facility] note* Diagnosis 24 weeks gestation of (HCC)- [...] (HCC) state, incidental documented in this encounter [facility] noteNo assessment information availableWMount [facility] Work Phone: Evaluation note* Diagnosis 24 weeks [...] B/O [facility] Diagnosis 24 weeks gestation of [...] to excess calories affecting , antepartum ([facility]) Allergic rhinitis, unspecified seasonality, unspecified trigger Supervision [...] (HCC) rx pepcid documented in this encounter [facility] note* Diagnosis 24 weeks gestation of (HCC)- Primary state, incidental Obesity in ([facility]) Obesity complicating , childbirth, or the puerperium, unspecified as to episode of care or not applicable Screening for diabetes mellitus Supervision of high risk in third trimester ([facility])- Primary Unspecified high-risk 30 weeks gestation of ([facility]) state, incidental Rash Rash and other nonspecific skin eruption Other obesity due to excess calories affecting , antepartum ([facility]) Allergic rhinitis, unspecified seasonality, unspecified trigger Supervision of high risk in third trimester ([facility])- Primary Unspecified high-risk Obesity affecting in third trimester, unspecified obesity type ([facility]) 35 weeks gestation of ([facility]) state, incidental 36 weeks gestation of ([facility])- Primary state, incidental Supervision of high risk in third trimester ([facility] [facility]) Unspecified high-risk Obesity affecting in third trimester, unspecified obesity type ([facility]) Heartburn during in third trimester ([facility]) Supervision of high risk in third trimester ([facility])- Primary Unspecified high-risk 37 weeks gestation of ([facility]) state, incidental Positive GBS test documented in this encounter [facility] note* Diagnosis 24 weeks gestation of (HCC)- Primary state, incidental Obesity in ([facility]) Obesity complicating , childbirth, or the puerperium, unspecified as to episode of care or not applicable Screening for diabetes mellitus Supervision of high risk in third trimester ([facility])- Primary Unspecified high-risk 30 weeks gestation of ([facility]) state, incidental Rash Rash and other nonspecific skin eruption Other obesity due to excess calories affecting , antepartum ([facility]) Allergic rhinitis, unspecified seasonality, unspecified trigger Supervision of high risk in third trimester ([facility])- Primary Unspecified high-risk Obesity affecting in third trimester, unspecified obesity type (HCC) 35 weeks gestation of ([facility]) state, incidental 36 weeks gestation of (HCC)- [...] [facility] Diagnosis 24 weeks gestation of [...] to excess calories affecting , antepartum ([facility]) Allergic rhinitis, unspecified seasonality, unspecified trigger Supervision [...] third trimester (HCC) Unspecified high-risk Obesity in ([facility]) Obesity complicating , childbirth, or the puerperium, unspecified as to episode of care or not applicable Positive GBS test documented in this encounter 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 Your test today looked good. No signs of a blood clot or heart attack.[facility] Work Phone: Reason for referral (narrative)* Outpatient Procedure (Routine) - Pending Review Specialty Diagnoses / Procedures Referred By Lance t Referred To Contact [facility] Diagnoses Malpositioned intrauterine device (IUD), initial encounter Encounter for IUD removal Procedures REMOVE INTRAUTERINE DEVICE REMOVE INTRAUTERINE DEVICE Janelle Marin MD [address] [place] [address] [facility] [address] [place] [address] Referral ID Status Reason Start Date Expiration Date Visits Requested Visits Authorized [id number] Pending Review Auto-Generat ed Referral 05/13/2023 05/12/2024 1 1 [facility] for referral (narrative)* Diagnostic Procedure Only (Routine) - Closed Specialty Diagnoses / Procedures Referred By Contac t Referred To Contact [facility] Diagnoses Pelvic pain in female Procedures US FEMALE PELVIS TRANSVAG US TRANSVAGINAL Delfina Watson APRN.CNM [address] [place] [address] [place] [address] Referral ID Status Reason Start Date Expiration Date V isits Requested Visits Authorized [id number] Closed Auto-Generate d Referral 05/03/2023 06/01/2024 1 1 [facility] for referral (narrative)* Diagnostic Procedure Only (Routine) - Closed Specialty Diagnoses / Procedures Referred By Contac t Referred To Contact [facility] Diagnoses Pelvic pain in female Procedures US FEMALE PELVIS TRANSVAG US TRANSVAGINAL Delfina Watson APRN.CNM [address] [place] [address] [place] [address] Referral ID Status Reason Start Date Expiration Date V isits Requested Visits Authorized [id number] Closed Auto-Generate d Referral 05/03/2023 06/01/2024 1 1 [facility] for referral (narrative)* Diagnostic Procedure Only (Routine) - Authorized Specialty Diagnoses / Procedures Referred By Contac t Referred To Contact [facility] Diagnoses Encounter for care in first trimester of first 7 weeks gestation of Procedures NUCHAL TRANSLUCENCY WHI US NUCHAL TRANSLUCENCY 1ST GESTATION Nilda Stiles APRN.CNP [address] [place] [address] [place] [id number] Referral ID Status Reason Start Date Expiration Date Visits Requested Visits Authorized [id number] Authorized Auto-Generat ed Referral 02/20/2025 1 1 [facility] for referral (narrative)* Diagnostic Procedure Only (Routine) - Authorized Specialty Diagnoses / Procedures Referred By Contac t Referred To Contact [facility] Diagnoses Supervision of normal first teen in first trimester 13 weeks gestation of Obesity in Procedures OBSTETRIC ULTRASOUND WHI US PREG UTERUS AFTER 1ST TRIMEST GESTATION Delfina Watson APRN.CNM [address] [place] [address] [facility] [address] [place] [address] Referral ID Status Reason Start Date Expiration Date Visits Requested Visits Authorized [id number] Authorized Auto-Generat ed Referral 04/03/2024 04/03/2025 1 1 [facility] for referral (narrative)No reason for referral information availableWM[facility] Work Phone: Reason for visit Narrative* Outpatient Procedure (Routine) - Authorized Specialty Diagnoses / Procedures Referred By Contac t Referred To Contact [facility] Diagnoses Malpositioned intrauterine device (IUD), initial encounter Encounter for IUD removal Procedures REMOVE INTRAUTERINE DEVICE REMOVE INTRAUTERINE DEVICE Janelle Marin MD [address] [place] [address] [facility] [address] [place] [address] Referral ID Status Reason Start Date Expiration Date Visits Requested Visits Authorized [id number] Authorized Auto-Generat ed Referral 05/16/2023 03/06/2024 2 2 [facility] Concerns Infection Onset Date Last Indicated Resolved Time COVID-19 Rule-Out 10/05/2021 10/05/2021 Infection Onset Date Last Indicated Resolved Time COVID-19 Rule-Out 01/18/2022 01/18/2022 Reason for Referral Specialty Diagnoses / Procedures Referred By Contac t Referred To Contact Diagnoses Ramon Chinchilla MD [address] [place] [address] Referral ID Status Reason Start Date Expiration Date Visits Re quested Visits Authorized [id number] Closed 1 1 Specialty Diagnoses / Procedures Referred By Contac t Referred To Contact Diagnoses BV (bacterial vaginosis) Nilda Stiles APRN.RING MAKER [address] [place] [address] Referral ID Status Reason Start Date Expiration Date Visits Re quested Visits Authorized [id number] Closed 1 1 Specialty Diagnoses / Procedures Referred By Contac t Referred To Contact Allergy Diagnoses Adverse food reaction, initial encounter Procedures CONSULT TO ALLERGY/IMMUNOLOGY OFFICE/OUTPATIENT [facility] 60 MINUTES Sommer Hernandez PA-C [address] [place] [address] Referral ID Status Reason Start Date Expiration Date Visits Requested Visits Authorized [id number] Authorized PCP Requested Referral 10/31/2023 10/30/2024 1 1 Chief Complaint and Reason for Visit Chief Complaint Admit Date SOB September 04, 2024 10:11 am Chief Complaint Admit Date SOB September 04, 2024 10:11 am [employer] October 12, 2024 11: 20pm Advance Directives Advance Directive Response Recorded Date/ Time Do you have a Healthcare Power of Operations Management Professionals? No September 04, 2024 10:30am Summary Purpose [...] any alcohol or drug abuse patient.[facility] the event this information is protected by the Federal Confidentiality of Alcohol and Drug Abuse Patient Records regulations: The Federal rules restrict any use of the information to criminally investigate or prosecute any alcohol or drug abuse patient.[facility] the event this information is protected by the Federal Confidentiality of Alcohol and Drug Abuse Patient Records regulations: The Federal rules restrict any use of the information to criminally investigate or prosecute any alcohol or drug abuse patient.[facility] the event this information is protected by the Federal Confidentiality of Alcohol and Drug Abuse Patient Records regulations: The Federal rules restrict any use of the information to criminally investigate or prosecute any alcohol or drug abuse patient.[facility] the event this information is protected by the Federal Confidentiality of Alcohol and Drug Abuse Patient Records regulations: The Federal rules restrict any use of the information to criminally investigate or prosecute any alcohol or drug abuse patient.[facility] Hospital[facility] the event this information is protected by the Federal Confidentiality of Alcohol and Drug Abuse Patient Records regulations: The Federal rules restrict any use of the information to criminally investigate or prosecute any alcohol or drug abuse patient.[facility] Hospital[facility] the event this information is protected by the Federal Confidentiality of Alcohol and Drug Abuse Patient Records regulations: The Federal rules restrict any use of the information to criminally investigate or prosecute any alcohol or drug abuse patient.[facility] the event this information is protected by the Federal Confidentiality of Alcohol and Drug Abuse Patient Records regulations: The Federal rules restrict any use of the information to criminally investigate or prosecute any alcohol or drug abuse patient.[facility] Hospital[facility] the event this information is protected by the Federal Confidentiality of Alcohol and Drug Abuse Patient Records regulations: The Federal rules restrict any use of the information to criminally investigate or prosecute any alcohol or drug abuse patient.[facility] Hospital[facility] the event this information is protected by the Federal Confidentiality of Alcohol and Drug Abuse Patient Records regulations: The Federal rules restrict any use of the information to criminally investigate or prosecute any alcohol or drug abuse patient.[facility] Hospital[facility] the event this information is protected by the Federal Confidentiality of Alcohol and Drug Abuse Patient Records regulations: The Federal rules restrict any use of the information to criminally investigate or prosecute any alcohol or drug abuse patient.[facility] HospitalIn the event this information is protected by the Federal Confidentiality of Alcohol and Drug Abuse Patient Records regulations: The Federal rules restrict any use of the information to criminally investigate or prosecute any alcohol or drug abuse patient.[facility] HospitalIn the event this information is protected by the Federal Confidentiality of Alcohol and Drug Abuse Patient Records regulations: The Federal rules restrict any use of the information to criminally investigate or prosecute any alcohol or drug abuse patient.[facility] HospitalIn the event this information is protected by the Federal Confidentiality of Alcohol and Drug Abuse Patient Records regulations: The Federal rules restrict any use of the information to criminally investigate or prosecute any alcohol or drug abuse patient.[facility] HospitalIn the event this information is protected by the Federal Confidentiality of Alcohol and Drug Abuse Patient Records regulations: The Federal rules restrict any use of the information to criminally investigate or prosecute any alcohol or drug abuse patient.[facility] HospitalIn the event this information is protected by the Federal Confidentiality of Alcohol and Drug Abuse Patient Records regulations: The Federal rules restrict any use of the information to criminally investigate or prosecute any alcohol or drug abuse patient.[facility] HospitalIn the event this information is protected by the Federal Confidentiality of Alcohol and Drug Abuse Patient Records regulations: The Federal rules restrict any use of the information to criminally investigate or prosecute any alcohol or drug abuse patient.[facility] HospitalIn the event this information is protected by the Federal Confidentiality of Alcohol and Drug Abuse Patient Records regulations: The Federal rules restrict any use of the information to criminally investigate or prosecute any alcohol or drug abuse patient.[facility] HospitalIn the event this information is protected by the Federal Confidentiality of Alcohol and Drug Abuse Patient Records regulations: The Federal rules restrict any use of the information to criminally investigate or prosecute any alcohol or drug abuse patient.[facility] HospitalIn the event this information is protected by the Federal Confidentiality of Alcohol and Drug Abuse Patient Records regulations: The Federal rules restrict any use of the information to criminally investigate or prosecute any alcohol or drug abuse patient.[facility] HospitalIn the event this information is protected by the Federal Confidentiality of Alcohol and Drug Abuse Patient Records regulations: The Federal rules restrict any use of the information to criminally investigate or prosecute any alcohol or drug abuse patient.[facility] HospitalIn the event this information is protected by the Federal Confidentiality of Alcohol and Drug Abuse Patient Records regulations: The Federal rules restrict any use of the information to criminally investigate or prosecute any alcohol or drug abuse patient.[facility] HospitalIn the event this information is protected by the Federal Confidentiality of Alcohol and Drug Abuse Patient Records regulations: The Federal rules restrict any use of the information to criminally investigate or prosecute any alcohol or drug abuse patient.[facility] HospitalIn the event this information is protected by the Federal Confidentiality of Alcohol and Drug Abuse Patient Records regulations: The Federal rules restrict any use of the information to criminally investigate or prosecute any alcohol or drug abuse patient.[facility] HospitalIn the event this information is protected by the Federal Confidentiality of Alcohol and Drug Abuse Patient Records regulations: The Federal rules restrict any use of the information to criminally investigate or prosecute any alcohol or drug abuse patient.[facility] HospitalIn the event this information is protected by the Federal Confidentiality of Alcohol and Drug Abuse Patient Records regulations: The Federal rules restrict any use of the information to criminally investigate or prosecute any alcohol or drug abuse patient.[facility] HospitalIn the event this information is protected by the Federal Confidentiality of Alcohol and Drug Abuse Patient Records regulations: The Federal rules restrict any use of the information to criminally investigate or prosecute any alcohol or drug abuse patient.[facility] HospitalIn the event this information is protected by the Federal Confidentiality of Alcohol and Drug Abuse Patient Records regulations: The Federal rules restrict any use of the information to criminally investigate or prosecute any alcohol or drug abuse patient.[facility] HospitalIn the event this information is protected by the Federal Confidentiality of Alcohol and Drug Abuse Patient Records regulations: The Federal rules restrict any use of the information to criminally investigate or prosecute any alcohol or drug abuse patient.[facility] HospitalIn the event this information is protected by the Federal Confidentiality of Alcohol and Drug Abuse Patient Records regulations: The Federal rules restrict any use of the information to criminally investigate or prosecute any alcohol or drug abuse patient.[facility] HospitalIn the event this information is protected by the Federal Confidentiality of Alcohol and Drug Abuse Patient Records regulations: The Federal rules restrict any use of the information to criminally investigate or prosecute any alcohol or drug abuse patient.[facility] HospitalIn the event this information is protected by the Federal Confidentiality of Alcohol and Drug Abuse Patient Records regulations: The Federal rules restrict any use of the information to criminally investigate or prosecute any alcohol or drug abuse patient.[facility] HospitalIn the event this information is protected by the Federal Confidentiality of Alcohol and Drug Abuse Patient Records regulations: The Federal rules restrict any use of the information to criminally investigate or prosecute any alcohol or drug abuse patient.[facility] HospitalIn the event this information is protected by the Federal Confidentiality of Alcohol and Drug Abuse Patient Records regulations: The Federal rules restrict any use of the information to criminally investigate or prosecute any alcohol or drug abuse patient.[facility] HospitalIn the event this information is protected by the Federal Confidentiality of Alcohol and Drug Abuse Patient Records regulations: The Federal rules restrict any use of the information to criminally investigate or prosecute any alcohol or drug abuse patient.[facility] HospitalIn the event this information is protected by the Federal Confidentiality of Alcohol and Drug Abuse Patient Records regulations: The Federal rules restrict any use of the information to criminally investigate or prosecute any alcohol or drug abuse patient.[facility] HospitalIn the event this information is protected by the Federal Confidentiality of Alcohol and Drug Abuse Patient Records regulations: The Federal rules restrict any use of the information to criminally investigate or prosecute any alcohol or drug abuse patient.[facility] HospitalIn the event this information is protected by the Federal Confidentiality of Alcohol and Drug Abuse Patient Records regulations: The Federal rules restrict any use of the information to criminally investigate or prosecute any alcohol or drug abuse patient.[facility] HospitalIn the event this information is protected by the Federal Confidentiality of Alcohol and Drug Abuse Patient Records regulations: The Federal rules restrict any use of the information to criminally investigate or prosecute any alcohol or drug abuse patient.[facility] HospitalIn the event this information is protected by the Federal Confidentiality of Alcohol and Drug Abuse Patient Records regulations: The Federal rules restrict any use of the information to criminally investigate or prosecute any alcohol or drug abuse patient.[facility] HospitalIn the event this information is protected by the Federal Confidentiality of Alcohol and Drug Abuse Patient Records regulations: The Federal rules restrict any use of the information to criminally investigate or prosecute any alcohol or drug abuse patient.[facility] HospitalIn the event this information is protected by the Federal Confidentiality of Alcohol and Drug Abuse Patient Records regulations: The Federal rules restrict any use of the information to criminally investigate or prosecute any alcohol or drug abuse patient.[facility] HospitalIn the event this information is protected by the Federal Confidentiality of Alcohol and Drug Abuse Patient Records regulations: The Federal rules restrict any use of the information to criminally investigate or prosecute any alcohol or drug abuse patient.[facility] HospitalIn the event this information is protected by the Federal Confidentiality of Alcohol and Drug Abuse Patient Records regulations: The Federal rules restrict any use of the information to criminally investigate or prosecute any alcohol or drug abuse patient.[facility] HospitalIn the event this information is protected by the Federal Confidentiality of Alcohol and Drug Abuse Patient Records regulations: The Federal rules restrict any use of the information to criminally investigate or prosecute any alcohol or drug abuse patient.[facility] HospitalIn the event this information is protected by the Federal Confidentiality of Alcohol and Drug Abuse Patient Records regulations: The Federal rules restrict any use of the information to criminally investigate or prosecute any alcohol or drug abuse patient.[facility] HospitalIn the event this information is protected by the Federal Confidentiality of Alcohol and Drug Abuse Patient Records regulations: The Federal rules restrict any use of the information to criminally investigate or prosecute any alcohol or drug abuse patient.[facility] HospitalIn the event this information is protected by the Federal Confidentiality of Alcohol and Drug Abuse Patient Records regulations: The Federal rules restrict any use of the information to criminally investigate or prosecute any alcohol or drug abuse patient.[facility] HospitalIn the event this information is protected by the Federal Confidentiality of Alcohol and Drug Abuse Patient Records regulations: The Federal rules restrict any use of the information to criminally investigate or prosecute any alcohol or drug abuse patient.[facility] HospitalIn the event this information is protected by the Federal Confidentiality of Alcohol and Drug Abuse Patient Records regulations: The Federal rules restrict any use of the information to criminally investigate or prosecute any alcohol or drug abuse patient.[facility] HospitalIn the event this information is protected by the Federal Confidentiality of Alcohol and Drug Abuse Patient Records regulations: The Federal rules restrict any use of the information to criminally investigate or prosecute any alcohol or drug abuse patient.[facility] HospitalIn the event this information is protected by the Federal Confidentiality of Alcohol and Drug Abuse Patient Records regulations: The Federal rules restrict any use of the information to criminally investigate or prosecute any alcohol or drug abuse patient.[facility] HospitalIn the event this information is protected by the Federal Confidentiality of Alcohol and Drug Abuse Patient Records regulations: The Federal rules restrict any use of the information to criminally investigate or prosecute any alcohol or drug abuse patient.[facility] HospitalIn the event this information is protected by the Federal Confidentiality of Alcohol and Drug Abuse Patient Records regulations: The Federal rules restrict any use of the information to criminally investigate or prosecute any alcohol or drug abuse patient.[facility] HospitalIn the event this information is protected by the Federal Confidentiality of Alcohol and Drug Abuse Patient Records regulations: The Federal rules restrict any use of the information to criminally investigate or prosecute any alcohol or drug abuse patient.[facility] HospitalIn the event this information is protected by the Federal Confidentiality of Alcohol and Drug Abuse Patient Records regulations: The Federal rules restrict any use of the information to criminally investigate or prosecute any alcohol or drug abuse patient.[facility] HospitalIn the event this information is protected by the Federal Confidentiality of Alcohol and Drug Abuse Patient Records regulations: The Federal rules restrict any use of the information to criminally investigate or prosecute any alcohol or drug abuse patient.[facility] HospitalIn the event this information is protected by the Federal Confidentiality of Alcohol and Drug Abuse Patient Records regulations: The Federal rules restrict any use of the information to criminally investigate or prosecute any alcohol or drug abuse patient.[facility] HospitalIn the event this information is protected by the Federal Confidentiality of Alcohol and Drug Abuse Patient Records regulations: The Federal rules restrict any use of the information to criminally investigate or prosecute any alcohol or drug abuse patient.[facility] HospitalIn the event this information is protected by the Federal Confidentiality of Alcohol and Drug Abuse Patient Records regulations: The Federal rules restrict any use of the information to criminally investigate or prosecute any alcohol or drug abuse patient.[facility] HospitalIn the event this information is protected by the Federal Confidentiality of Alcohol and Drug Abuse Patient Records regulations: The Federal rules restrict any use of the information to criminally investigate or prosecute any alcohol or drug abuse patient.[facility] HospitalIn the event this information is protected by the Federal Confidentiality of Alcohol and Drug Abuse Patient Records regulations: The Federal rules restrict any use of the information to criminally investigate or prosecute any alcohol or drug abuse patient.[facility] HospitalIn the event this information is protected by the Federal Confidentiality of Alcohol and Drug Abuse Patient Records regulations: The Federal rules restrict any use of the information to criminally investigate or prosecute any alcohol or drug abuse patient.[facility] HospitalIn the event this information is protected by the Federal Confidentiality of Alcohol and Drug Abuse Patient Records regulations: The Federal rules restrict any use of the information to criminally investigate or prosecute any alcohol or drug abuse patient.[facility] HospitalIn the event this information is protected by the Federal Confidentiality of Alcohol and Drug Abuse Patient Records regulations: The Federal rules restrict any use of the information to criminally investigate or prosecute any alcohol or drug abuse patient.[facility] HospitalIn the event this information is protected by the Federal Confidentiality of Alcohol and Drug Abuse Patient Records regulations: The Federal rules restrict any use of the information to criminally investigate or prosecute any alcohol or drug abuse patient.[facility] HospitalIn the event this information is protected by the Federal Confidentiality of Alcohol and Drug Abuse Patient Records regulations: The Federal rules restrict any use of the information to criminally investigate or prosecute any alcohol or drug abuse patient.[facility] HospitalIn the event this information is protected by the Federal Confidentiality of Alcohol and Drug Abuse Patient Records regulations: The Federal rules restrict any use of the information to criminally investigate or prosecute any alcohol or drug abuse patient.[facility] HospitalIn the event this information is protected by the Federal Confidentiality of Alcohol and Drug Abuse Patient Records regulations: The Federal rules restrict any use of the information to criminally investigate or prosecute any alcohol or drug abuse patient.[facility] HospitalIn the event this information is protected by the Federal Confidentiality of Alcohol and Drug Abuse Patient Records regulations: The Federal rules restrict any use of the information to criminally investigate or prosecute any alcohol or drug abuse patient.[facility] HospitalIn the event this information is protected by the Federal Confidentiality of Alcohol and Drug Abuse Patient Records regulations: The Federal rules restrict any use of the information to criminally investigate or prosecute any alcohol or drug abuse patient.[facility] HospitalIn the event this information is protected by the Federal Confidentiality of Alcohol and Drug Abuse Patient Records regulations: The Federal rules restrict any use of the information to criminally investigate or prosecute any alcohol or drug abuse patient.[facility] HospitalIn the event this information is protected by the Federal Confidentiality of Alcohol and Drug Abuse Patient Records regulations: The Federal rules restrict any use of the information to criminally investigate or prosecute any alcohol or drug abuse patient.[facility] HospitalIn the event this information is protected by the Federal Confidentiality of Alcohol and Drug Abuse Patient Records regulations: The Federal rules restrict any use of the information to criminally investigate or prosecute any alcohol or drug abuse patient.[facility] HospitalIn the event this information is protected by the Federal Confidentiality of Alcohol and Drug Abuse Patient Records regulations: The Federal rules restrict any use of the information to criminally investigate or prosecute any alcohol or drug abuse patient.[facility] HospitalIn the event this information is protected by the Federal Confidentiality of Alcohol and Drug Abuse Patient Records regulations: The Federal rules restrict any use of the information to criminally investigate or prosecute any alcohol or drug abuse patient.[facility] HospitalIn the event this information is protected by the Federal Confidentiality of Alcohol and Drug Abuse Patient Records regulations: The Federal rules restrict any use of the information to criminally investigate or prosecute any alcohol or drug abuse patient.[facility] HospitalIn the event this information is protected by the Federal Confidentiality of Alcohol and Drug Abuse Patient Records regulations: The Federal rules restrict any use of the information to criminally investigate or prosecute any alcohol or drug abuse patient.[facility] HospitalIn the event this information is protected by the Federal Confidentiality of Alcohol and Drug Abuse Patient Records regulations: The Federal rules restrict any use of the information to criminally investigate or prosecute any alcohol or drug abuse patient.[facility] HospitalIn the event this information is protected by the Federal Confidentiality of Alcohol and Drug Abuse Patient Records regulations: The Federal rules restrict any use of the information to criminally investigate or prosecute any alcohol or drug abuse patient.[facility] HospitalIn the event this information is protected by the Federal Confidentiality of Alcohol and Drug Abuse Patient Records regulations: The Federal rules restrict any use of the information to criminally investigate or prosecute any alcohol or drug abuse patient.[facility] Reason for Visit (unrecogniz ed section and content) Reason Comments ? ACID REFLUX burning sensation in throat after eating, throw up in my mouth, but all acid, mucus build up in my chest that will gag me when it comes up. Onset times 1 month. 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 Reason Comments Nausea sob, fever x [...] x4 days Reason Comments Well Child 17yr [facility] Reason Comments Orders Reason Comments Radiology US Specialty Diagnoses / Procedures Referred By Contac t Referred To Contact [facility] Diagnoses Pelvic pain in female Procedures US FEMALE PELVIS TRANSVAG US TRANSVAGINAL Delfian Watson APRN.CN [address] [place] [address] [place] [address] Referral ID Status Reason Start Date Expiration Date V isits Requested Visits Authorized [id number] Closed Auto-Generate d Referral 05/03/2023 06/01/2024 1 [...] Referred By Contac t Referred To Contact [facility] Diagnoses Encounter for care in first trimester of first 7 weeks gestation of Procedures NUCHAL TRANSLUCENCY WHI US NUCHAL TRANSLUCENCY 1ST GESTATION Nilda Stiles APRN.RING MAKER [address] [place] [address] [facility] [address] [place] [id number] Referral ID Status Reason Start Date Expiration Date V isits Requested Visits Authorized [id number] Closed Auto-Generate d Referral 02/21/2024 02/20/2025 1 1 Reason Onset Date Comments Refill Request 04/10/2024 Reason Onset Date Comments Care 04/27/2024 Reason Comments Question (OB Question) Reason Onset Date Comments Care 05/25/2024 Specialty Diagnoses / Procedures Referred By Contac t Referred To Contact [facility] Diagnoses Supervision of normal first teen in first trimester 13 weeks gestation of Obesity in Procedures OBSTETRIC ULTRASOUND WHI US PREG UTERUS AFTER 1ST TRIMEST 1 GESTATION Delfina Watson APRN.CNM [address] [place] [address] Phone: tel: fax: [address] [address] Referral ID Status Reason Start Date Expiration Date V isits Requested Visits Authorized [id number] Closed Auto-Generate d Referral 04/03/2024 04/03/2025 1 [...] Care Teams (unrecognized sec tion and content) Inside B2B Sales Relationship Specialty Start Date End Date Que Chavez MD [address] [place] [id number] PCP - General Pediatrics 01/19/17 Inside B2B Sales Relationship Specialty Start Date End Date Que Chavez MD [address] [place] [id number] PCP - General Pediatrics 01/19/17 Inside B2B Sales Relationship Specialty Start Date End Date Que Chavez MD [address] [place] [address] PCP - General Pediatrics 01/19/17 Inside B2B Sales Relationship Specialty Start Date End Date Que Chavez MD [address] [place] [address] PCP - General Pediatrics 01/19/17 Inside B2B Sales Relationship Specialty Start Date End Date Que Chavez MD [address] [place] [address] [place] [address] PCP - General Pediatrics 01/19/17 Inside B2B Sales Relationship Specialty Start Date End Date Que Chavez MD [address] [place] [address] PCP - General Pediatrics 01/19/17 Inside B2B Sales Relationship Specialty Start Date End Date Que Chavez MD [address] [place] [address] PCP - General Pediatrics 01/19/17 Inside B2B Sales Relationship Specialty Start Date End Date Que Chavez MD [address] [place] [address] PCP - General Pediatrics 01/19/17 Inside B2B Sales Relationship Specialty Start Date End Date Que Chavez MD [address] [place] [address] PCP - General Pediatrics 01/19/17 Inside B2B Sales Relationship Specialty Start Date End Date Que Chavez MD [address] [place] [address] PCP - General Pediatrics 01/19/17 Inside B2B Sales Relationship Specialty Start Date End Date Que Chavez MD [address] [place] [address] PCP - General Pediatrics 01/19/17 Inside B2B Sales Relationship Specialty Start Date End Date Que Chavez MD [address] [place] [address] PCP - General Pediatrics 01/19/17 Inside B2B Sales Relationship Specialty Start Date End Date Que Chavez MD [address] [place] [address] PCP - General Pediatrics 01/19/17 Inside B2B Sales Relationship Specialty Start Date End Date Que Chavez MD [address] [place] [address] PCP - General Pediatrics 01/19/17 Inside B2B Sales Relationship Specialty Start Date End Date Que Chavez MD [address] [place] [address] PCP - General Pediatrics 01/19/17 Inside B2B Sales Relationship Specialty Start Date End Date Que Chavez MD [address] [place] [address] PCP - General Pediatrics 01/19/17 Inside B2B Sales Relationship Specialty Start Date End Date Que Chavez MD [address] [place] [address] PCP - General Pediatrics 01/19/17 Inside B2B Sales Relationship Specialty Start Date End Date Que Chavez MD [address] [place] [address] PCP - General Pediatrics 01/19/17 Inside B2B Sales Relationship Specialty Start Date End Date Que Chavez MD [address] [place] [address] PCP - General Pediatrics 01/19/17 Inside B2B Sales Relationship Specialty Start Date End Date Que Chavez MD [address] [place] [address] PCP - General Pediatrics 01/19/17 Inside B2B Sales Relationship Specialty Start Date End Date Que Chavez MD [address] [place] [address] PCP - General Pediatrics 01/19/17 Inside B2B Sales Relationship Specialty Start Date End Date Que Chavez MD [address] [place] [address] PCP - General Pediatrics 01/19/17 Inside B2B Sales Relationship Specialty Start Date End Date Que Chavez MD [address] [place] [address] PCP - General Pediatrics 01/19/17 Inside B2B Sales Relationship Specialty Start Date End Date Que Chavez MD [address] [place] [address] PCP - General Pediatrics 01/19/17 Inside B2B Sales Relationship Specialty Start Date End Date Que Chavez MD [address] [place] [address] PCP - General Pediatrics 01/19/17 Inside B2B Sales Relationship Specialty Start Date End Date Que Chavez MD [address] [place] [address] PCP - General Pediatrics 01/19/17 Inside B2B Sales Relationship Specialty Start Date End Date Ruiz Vega DO [address] [place] [address] PCP - General Family Medicine 08/13/24 Inside B2B Sales Relationship Specialty Start Date End Date Ruiz Vega DO [address] [place] [address] PCP - General Family Medicine 08/13/24 Maria Alejandra Morel, FACTORY MAINTENANCE MANAGER.RING MAKER [address] [place] [address] Scheduling Manager Family Medicine 08/16/24 Inside B2B Sales Relationship Specialty Start Date End Date Ruiz Vega DO [address] [place] [address] PCP - General Family Medicine 08/13/24 Maria Alejandra Morel, FACTORY MAINTENANCE MANAGER.RING MAKER [address] [facility] [place] [address] Scheduling Manager Family Medicine 08/16/24 Sheri Harrison, FACTORY MAINTENANCE MANAGER.RING MAKER [address] [place] [address] Scheduling Manager Family Medicine 08/20/24 Team Status: Active Member Role/Relationship Status Dates Dr. Ruiz Vega DO Primary Care Provider Active Team Status: Inactive Member Role/Relationship Status Dates Dr. Ruiz Vega DO Primary Care Provider Active Start: September 04, 2024 End: September 04, 2024 Dr. Conrado Richardson MD Emergency Provider Active S tart: September 04, 2024 End: September 04, 2024 Inside B2B Sales Relationship Specialty Start Date End Date Ruiz Vega DO [address] [place] [address] PCP - General Family Medicine 08/13/24 Maria Alejandra Morel, FACTORY MAINTENANCE MANAGER.RING MAKER [address] [place] [address] [facility] 08/16/24 Sheri Harrison, FACTORY MAINTENANCE MANAGER.RING MAKER [address] [place] [address] [facility] 08/20/24 Inside B2B Sales Relationship Specialty Start Date End Date Ruiz Vega DO [address] [facility] [place] [address] PCP - General Family Medicine 08/13/24 AdrielMaria Alejandra, FACTORY MAINTENANCE MANAGER.RING MAKER [address] [facility] [place] [address] Scheduling Manager Family Medicine 08/16/24 Sheri Harrison, FACTORY MAINTENANCE MANAGER.RING MAKER [address] [place] [address] Scheduling Manager Family Medicine 08/20/24 Inside B2B Sales Relationship Specialty Start Date End Date Ruiz Vega DO [address] [place] [address] PCP - General Family Medicine 08/13/24 Maria Alejandra Morel, FACTORY MAINTENANCE MANAGER.RING MAKER [address] [place] [address] Scheduling Manager Family Medicine 08/16/24 Sheri Harrison APRN.RING MAKER [address] [place] [address] Scheduling Manager Family Medicine 08/20/24 Inside B2B Sales Relationship Specialty Start Date End Date Ruiz Vega DO [address] [place] [address] PCP - General Family Medicine 08/13/24 Maria Alejandra Morel, FACTORY MAINTENANCE MANAGER.RING MAKER [address] [place] [address] Scheduling Manager Family Medicine 08/16/24 Sheri Harrison FACTORY MAINTENANCE MANAGER.RING MAKER [address] [place] [address] Scheduling Manager Family Medicine 08/20/24 Inside B2B Sales Relationship Specialty Start Date End Date Ruiz Vega DO [address] [place] [address] PCP - General Family Medicine 08/13/24 Maria Alejandra Morel, FACTORY MAINTENANCE MANAGER.RING MAKER [address] [place] [address] Scheduling Manager Family Medicine 08/16/24 Sheri Harrison, FACTORY MAINTENANCE MANAGER.RING MAKER [address] [place] [address] Scheduling Manager Family Medicine 08/20/24 Inside B2B Sales Relationship Specialty Start Date End Date Ruiz Vega DO [address] [place] [address] PCP - General Family Medicine 08/13/24 Maria Alejandra Morel, FACTORY MAINTENANCE MANAGER.RING MAKER [address] [place] [address] Scheduling Manager Family Medicine 08/16/24 Sheri Harrison, FACTORY MAINTENANCE MANAGER.RING MAKER [address] [place] [address] Scheduling Manager Family Medicine 08/20/24 Inside B2B Sales Relationship Specialty Start Date End Date Ruiz Vega DO [address] [place] [address] PCP - General Family Medicine 08/13/24 Maria Alejandra Morel, FACTORY MAINTENANCE MANAGER.RING MAKER [address] [place] [address] Scheduling Manager Family Medicine 08/16/24 Sheri Harrison, FACTORY MAINTENANCE MANAGER.RING MAKER [address] [place] [address] Scheduling Manager Family Medicine 08/20/24 Inside B2B Sales Relationship Specialty Start Date End Date Ruiz Vega DO [address] [place] [address] PCP - General Family Medicine 08/13/24 Maria Alejandra Morel, FACTORY MAINTENANCE MANAGER.RING MAKER [address] [place] [place] [address] [facility] 08/16/24 Hunter Sherisusannah Cooper, FACTORY MAINTENANCE MANAGER.RING MAKER [address] [place], [place] [address] [facility] 08/20/24 Team Status: Inactive Member Role/Relationship [...] section and content) DATE CREATED AUTHOR 10/08/2024 [facility] DATE CREATED AUTHOR AUTHOR'S TYRONE ATLILLIAN 10/11/2024 [facility] FOR RECORDS PERTAINING TO PATIENTS WHO ARE [...] BE BASED ON THE PRIMARY CLINICAL RECORDS. [employer] provides no warranty or guarantee of the accuracy or completeness of information in this document.
--- OUTSIDE RECORDS SUMMARY | 2024-10-13 09:17 | XMS RPT_ITS | CCD ---
Author Organization [facility] Care Team Providers Care Fiber Glass Worker Name Role Phone Que Chavez MD Primary Care Provider Unavailable Primary Care Provider Unavailbelkis e Ruiz Vega DO Primary Care Provider [facility] HEEL WASHER STRINGING MACHINE OPERATOR.Maria Alejandra ALVES Unavailable [phone] [place] HEEL WASHER STRINGING MACHINE OPERATOR.Sheri ALVES Unavailable Dr. Ruiz Vega DO Primary [...] RUIZ L Primary Care Unavailable LA DEL CATSILLO Attending Unavailable VEGA, RUIZ L Primary Care Unavailable JANELLE MARIN Attending Unavailable VEGA, RUIZ L Primary Care Unavailable CASTILLO MCKEON Attending Unavailable SCOTT, QUE P Primary Care Unavailable LINSEY, NILDA Referring Unavailable PLOTLA RIZZO Attending Unavailable SCOTT, QUE P Primary Care Unavailable LINSEY, NILDA Referring Unavailable Dylan MUIR, Dr. Camp Attending Provider Delfina Watson CNM Attending Provider [phone] Allergies Allergy Classification Reported Allergen(s) Allergy Type Date of Onset Reaction(s) Facility (20 sources) Seasonal allergy; Translations: [SEASONAL ALLERGIES] Propensity to adverse reactions 8 Other: See Comments [facility] Medications Current Medications Medication Drug Class(es) Dates Sig (Normalized) Sig (Original) [id number] 200 actuat albuterol 0.09 mg/actuat metered dose [...] (FLONASE) 50 mcg/actuation nasal spray Use 1 [place] in each nostril once daily. 1 Each 3 07/29/2023 02/21/2024 Discontinued Comment on above: Use 1 [place] in each nostril once daily. Inhalational Spacing [...] 5 days. 15 tablet 10/31/2023 11/05/2023 Active Imqagg84-Ngcd Fum-Folic Ac-Om3 (One A Day Women's Dha) 28 mg iron- 800 mcg combo pack (2 sources) Start: 02-24-2024 Mzvnlm56-Cvmk Fum-Folic Ac-Om3 (One A Day Women's Dha) 28 mg iron- 800 mcg combo pack Active 1 NMA PO February 24, 2024 1:00am Start: 02-24-2024 Dnojds46-Elkj Fum-Folic Ac-Om3 (One A Day Women's Dha) 28 mg iron- 800 mcg combo pack Active NMA PO February 24, 2024 1:00am Dhogsfbi-Ve-Vea-Fe-FA tab (20 sources) Start: 04-27-2024 take 1 tablet by mouth once daily Rlszzyqa-Qw-Dix-Fe-FA tab Take 1 tablet by mouth once daily. With folic acid and DHA as covered by insurance. 90 tablet 3 04/27/2024 Active Start: 04-27-2024 End: 07-26-2024 take 1 tablet by mouth once daily Urqpqdaz-Us-Gjb-Fe-FA tab Take 1 tablet by mouth once [...] 08/25/2023 10/31/2023 Discontinued 168 hr ethinyl estradiol 0.05411 mg/hr / norelgestromin 0.13945 mg/hr transdermal system (2 sources) Progestin, Estrogen [...] take 1 capsule by mouth once daily L.acid,kubjo-eeeyvt-n actoferr (CLAIRVEE) 5 billion cell- 400 mcg DFE cpDR Take 1 capsule by mouth once daily. For 15 days out of the month. 10/31/2023 Discontinued take 1 capsule by mo uth once daily L.acid,tbqgm-lfnbgm-fjtehmccz (CLAIRVEE) 5 billion cell- 400 mcg DFE cpDR Take 1 capsule by mouth once daily. For 15 days out of the month. Active take 1 capsule by mo uth once daily L.acid,gjlyg-mrmejp-wsaishxxn (CLAIRVEE) 5 billion cell- 400 mcg DFE [...] REFRIGERATED 30 capsule 11 07/29/2023 Active Lacto No.33-Fihujc-Hdq-Larch 25B cell-25B cell-50 mg capsule (2 sources) Start: 10-04-2023 End: 10-12-2024 Lacto No.71-Nvygjb-Dwq-Larch 25B cell-25B cell-50 mg capsule Discontinued NMA PO October 04, 2023 12:00am October 12, 2024 11:37pm Start: 10-04-2023 Lacto No.76-Bi kfad-Azg-Nlnjt 25B cell-25B cell-50 mg capsule Active NMA [...] Comment on above: Take 1 tablet by [facility] twice daily for 7 days. naproxen 500 [...] discharge during in third trimester ([facility])] Onset: 5 Episodic Other gastrointestinal disorders (1 source) Heartburn; Translations: [Heartburn during in third trimester ([facility])] Onset: Episodic Other inflammatory condition of skin [...] 5 Glucose Ql (U) Negative Neg mg/dL [facility] Interpretation and review of laboratory results Normal [facility] Protein.monoclonal (U) [Mass/Vol] Negative Neg mg/dL [facility] URINE OB DIP B/Oon 5 Glucose Ql (U) Negative Neg mg/dL [facility] Protein.monoclonal (U) [Mass/Vol] Negative Neg mg/dL [facility] URINE OB DIP B/Oon 5 Glucose Ql (U) Negative Neg mg/dL [facility] Interpretation and review of laboratory results Normal [facility] Protein.monoclonal (U) [Mass/Vol] Negative Neg mg/dL [facility] ROUTINE, GROUP B ST REPTOCOCCUS BY PCRon 09-12-2024 ROUTINE, GROUP B STREPTOCOCCUS BY PCR Detected Abnormal [facility] Comment on above: Performed By: #### G BPCR ####[facility] [id number] [place] [address] [place] [facility] URINE OB DIP B/Oon 5 Glucose Ql (U) Negative Neg mg/dL [facility] Protein.monoclonal (U) [Mass/Vol] trace Neg mg/dL [facility] 12 Lead EKGon 09-04-2024 12 [address] [facility] Cardiovascular Services [address] [place] [address] 12 Lead EKG 09/04/24 1024 MR#: [id number] Acct: [id number] Name: AMIRAH WOODARD Rep #: [id number] : 2005 19 From: Flo Smith MD [...] Abnormal ECG Confirmed by FLO SMITH MD ([id number]), website/blog editor KAREN WATERS ([id number]) on 09/05/2024 1:39:37 PM Referred By: Confirmed By: FLO SMITH MD 09/05/24 1339 Date Flo Smith MD CC: Dr. Conrado Richardson MD; Dr. Ruiz Vega DO Signed Normal [facility] Absolute lymphocyte countOrd ered By: Conrado Richardson on 09-04-2024 Lymphocytes Auto (Unsp spec) [#/Vol] 1.97 10*3/uL 0.83-4.51 [facility] Absolute neutrophil countOrd ered By: Conrado Richardson on 09-04-2024 Neutrophils (Bld) [#/Vol] 8.4 10*3/uL High 2.0-7.7 [facility] Anion gap in Serum or Plasma Ordered By: Conrado Richardson on 09-04-2024 Anion gap [Moles/Vol] 11 mmol/L 5-15 [facility] Automated lymphocyte count a s percentage of total leukocytesOrdered By: Conrado Richardson on 09-04-2024 Lymphocytes/100 WBC Auto (Unsp spec) 16.7 % Low 19-41 [facility] BUN/creatinine ratioOrdered By: Conrado Richardson on 09-04-2024 Urea nitrogen/Creatinine [Mass ratio] 15.7 mg/mg 10- [facility] Basic Metabolic Profile (BMP )on 09-04-2024 BUN/CRE 15.7 RATIO Normal - [facility] Comment on above: Performed By: #### L 100.0100, L500.2500, L501.4021 #### [facility] [address] [place], [address] Calcium [Mass/Vol] 8.7 mg/dL Normal 7.6-11.0 [facility] Comment on above: Performed By: #### L 100.0100, L500.2500, L501.4021 #### [facility] [address] [place], [address] Chloride [Moles/Vol] 105 mmol/L Normal 98-108 [facility] Comment on above: Performed By: #### L 100.0100, L500.2500, L501.4021 #### [facility] [address] [place], [address] CO2 [Moles/Vol] 20.3 mmol/L Low 21.0-32.0 [facility] Comment on above: Performed By: #### L 100.0100, L500.2500, L501.4021 #### [facility] [address] [place], [address] Creatinine [Mass/Vol] 0.45 mg/dL Low 0.70-1.20 [facility] Comment on above: Performed By: #### L 100.0100, L500.2500, L501.4021 #### [facility] [address] [place], [address] ECRCL 226.86 ml/min Normal 50-250 [facility] Comment on above: Performed By: #### L 100.0100, L500.2500, L501.4021 #### [facility] [address] [place], [address] GAP 11 Normal 5-15 [facility] Comment on above: Performed By: #### L 100.0100, L500.2500, L501.4021 #### [facility] [address] [place], [address] GFR/1.73 sq M.predicted among non-blacks MDRD (S/P/Bld) [Vol rate/Area] 141 mL/min/{1.73_m2} Normal >60 [facility] Comment on above: Result Comment: mL/m in/1.73m2 CKD-EPI Creatinine Equation (2020) Performed By: #### L 100.0100, L500.2500, L501.4021 #### [facility] [address] [place], [address] Glucose [Mass/Vol] 91 mg/dL Normal 70-99 [facility] Comment on above: Performed By: #### L 100.0100, L500.2500, L501.4021 #### [facility] [address] [place], [address] Potassium [Moles/Vol] 3.8 mmol/L Normal 3.3-5.1 [facility] Comment on above: Performed By: #### L 100.0100, L500.2500, L501.4021 #### [facility] [address] [place], [address] Sodium [Moles/Vol] 137 mmol/L Normal 133-145 [facility] Comment on above: Performed By: #### L 100.0100, L500.2500, L501.4021 #### [facility] [address] [place], [address] Urea nitrogen [Mass/Vol] 7 mg/dL Normal 4-19 [facility] Comment on above: Performed By: #### L 100.0100, L500.2500, L501.4021 #### [facility] [address] [place], [address] Basophil percentageOrdered B y: Conrado Richardson on 09-04-2024 Basophils/100 WBC (Bld) 0.5 % 0-1 [facility] CBC W/Diff, Automatedon Absolute Lymph 1.97 X10 3/uL Normal 0.83-4.51 [facility] Comment on above: Performed By: #### L 100.0100, L500.2500, L501.4021 #### [facility] [address] [place], [address] Absolute Neut 8.4 X10 3/uL High 2.0-7.7 [facility] Comment on above: Performed By: #### L 100.0100, L500.2500, L501.4021 #### [facility] [address] [place], [address] Basophils/100 WBC (Bld) 0.5 % Normal 0-1 [facility] Comment on above: Performed By: #### L 100.0100, L500.2500, L501.4021 #### [facility] [address] [place], [address] Eosinophils/100 WBC (Bld) 2.2 % Normal 0-5 [facility] Comment on above: Performed By: #### L 100.0100, L500.2500, L501.4021 #### [facility] [address] [place], [address] Erythrocyte distribution width (RBC) [Ratio] 13.2 % Normal 11.6-14.6 [facility] Comment on above: Performed By: #### L 100.0100, L500.2500, L501.4021 #### [facility] [address] [place], [address] Hematocrit (Bld) [Volume fraction] 35.4 % Low 37-47 [facility] Comment on above: Performed By: #### L 100.0100, L500.2500, L501.4021 #### [facility] [address] [place], [address] Hemoglobin (Bld) [Mass/Vol] 11.6 g/dL Low 12.0-15.0 [facility] Comment on above: Performed By: #### L 100.0100, L500.2500, L501.4021 #### [facility] [address] [place], [address] IG% 1.200 High 0.0-0.9 [facility] Comment on above: Result Comment: IG% - Immature Granulocytes (promyelocytes, myelocytes and metamyelocytes) > 1% indicates that a LEFT SHIFT is Present. Performed By: #### L 100.0100, L500.2500, L501.4021 #### [facility] [address] [place], [address] Lymphocytes/100 WBC (Bld) 16.7 % Low 19-41 [facility] Comment on above: Performed By: #### L 100.0100, L500.2500, L501.4021 #### [facility] [address] [place], [address] MCH (RBC) [Entitic mass] 27.5 pg Normal 27.0-32.0 [facility] Comment on above: Performed By: #### L 100.0100, L500.2500, L501.4021 #### [facility] [address] [place], [address] MCHC (RBC) [Mass/Vol] 32.8 g/dL Normal 32-36 [facility] Comment on above: Performed By: #### L 100.0100, L500.2500, L501.4021 #### [facility] [address] [place], [address] MCV (RBC) [Entitic vol] 83.9 fL Normal 81-99 [facility] Comment on above: Performed By: #### L 100.0100, L500.2500, L501.4021 #### [facility] [address] [place], [address] Monocytes/100 WBC (Bld) 8.8 % Normal 0-10 [facility] Comment on above: Performed By: #### L 100.0100, L500.2500, L501.4021 #### [facility] [address] [place], [address] Neutrophils/100 WBC (Bld) 70.6 % High 47-70 [facility] Comment on above: Performed By: #### L 100.0100, L500.2500, L501.4021 #### [facility] [address] [place], [address] Nucleated RBC (Bld) [#/Vol] 0 10*3/uL Normal 0-5 [facility] Comment on above: Performed By: #### L 100.0100, L500.2500, L501.4021 #### [facility] [address] [place], [address] Platelet mean volume (Bld) [Entitic vol] 9.4 fL Normal 6.2-12.0 [facility] Comment on above: Performed By: #### L 100.0100, L500.2500, L501.4021 #### [facility] [address] [place], [address] Platelets (Bld) [#/Vol] 256 10*3/uL Normal 150-450 [facility] Comment on above: Performed By: #### L 100.0100, L500.2500, L501.4021 #### [facility] [address] [place], [address] RBC (Bld) [#/Vol] 4.22 10*6/uL Normal 4.2-5.4 [facility] Comment on above: Performed By: #### L 100.0100, L500.2500, L501.4021 #### [facility] [address] [place], [address] RDW SD 40.2 fl Normal 35.1-43.9 [facility] Comment on above: Performed By: #### L 100.0100, L500.2500, L501.4021 #### [facility] [address] [place], [address] WBC (Bld) [#/Vol] 11.8 10*3/uL High 4.4-11.0 [facility] Comment on above: Performed By: #### L 100.0100, L500.2500, L501.4021 #### [facility] [address] [place], [address] Rodrick 09-04-2024 JOSELYNN Telephone (OBGYWM) AMIRAH WOODARD ([id number]) 3 F Date Time Provider Department 09/04/24 [...] sprays in each nostril once daily. - Pudnesij-Ai-Xdd-Fe-FA tab Take 1 tablet by mouth once [...] Status:Closed by KIA BRASHER on 09/04/24 Normal [facility] CTA Chest W/WO Contraston CTA Chest W/WO Contrast [facility] Imaging Services [address] [place] [address] CTA Chest W/WO Contrast MR#: [id number] Acct: [id number] Name: AMIRAH WOODARD Rep #: [id number] : 2005 F 19 From: Gurjit Moreno MD PCP: Dr. Ruiz Vega, DO Status: REG ER Study: CTA Chest W/WO Contrast Date of Exam: 09/04/24 Exam# [id number] Ordering Dr: Conrado Richardson MD PROCEDURE: CTA [...] dissection No acute pulmonary process Reading Location: [id number] CC: Dr. Conrado Richardson MD; Dr. Ruiz Vega DO [employer]: Signed Normal [facility] Carbon dioxide, total [Moles /volume] in Central venous bloodOrdered By: Conrado Richardson on 09-04-2024 CO2 [Moles/Vol] 20.3 mmol/L Low 21.0-32.0 [facility] Chloride assayOrdered By: Wilson Richardson on 09-04-2024 Chloride [Moles/Vol] 105 mmol/L 98-108 [facility] Emergency Department Summary on 09-04-2024 Emergency Department Summary [facility] Medical Records Department [address] [place] [address] Emergency Department Summary 09/04/24 MR#: [id number] Acct: [id number] Name: AMIRAH WOODARD Rep #: [id number] : 2005 19 From: Conrado Richardson MD [...] discomfort that was diffuse. Lightheadedness. Saw her HEALTH ADMINISTRATOR in the office Dr. Adrienne Marin. Who [...] Factors: Negative for Marfan's Syndrome or Hypertension [facility] Medical History Left ankle pain Home Medications ???Medication ???Instructions ???Recorded ???Last Taken ???Type Lactobacillus 25 billion cap PO 10/04/23 Unknown History cell-Bifido 25 billion vetc-YFM-meavo capsule albuterol sulfate 90 mcg/actuation inhalation 10/04/23 [...] the ankles bilaterally. Dorsi plantarflexion intact. Normal stationary engineer refrigeration strength. Normal radial pulses. Back nontender. Neurologically [...] for ob (more content not included)... Normal [facility] Eosinophil percentageOrdered By: Conrado Richardson on 09-04-2024 Eosinophils/100 WBC (Bld) 2.2 % 0-5 [facility] Erythrocyte distribution wid th ratioOrdered By: Conrado Richardson on 09-04-2024 Erythrocyte distribution width (RBC) [Ratio] 13.2 % 11.6-14.6 [facility] Erythrocyte distribution wid th standard deviationOrdered By: Conrado Richardson on 09-04-2024 Erythrocyte distribution width (RBC) [Ratio] 40.2 fl 35.1-43.9 [facility] Glomerular filtration rate ( GFR) estimation/1.73 sq m using serum, plasma, or whole bOrdered By: Conrado Richardson on 09-04-2024 GFR/1.73 sq M.predicted among non-blacks MDRD (S/P/Bld) [Vol rate/Area] 141 mL/min/{1.73_m2} >60 [facility] Comment on above: mL/min/1.73m2 CKD-EP I Creatinine Equation (2020) Hematocrit Auto (Bld) [Volum e fraction]Ordered By: Conrado Richardson on 09-04-2024 Hematocrit (Bld) [Volume fraction] 35.4 % Low 37-47 [facility] Hemoglobin measurementOrdere d By: Conrado Richardson on 09-04-2024 Hemoglobin (Bld) [Mass/Vol] 11.6 g/dL Low 12.0-15.0 [facility] Immature granulocytes/100 WB C Auto (Bld)Ordered By: Conrado Richardson on 09-04-2024 Immature granulocytes/100 WBC (Bld) 1.200 % High 0.0-0.9 [facility] Comment on above: IG% - Immature Granu locytes (promyelocytes, myelocytes and metamyelocytes) > 1% indicates that a LEFT SHIFT is Present. L501.4021on 09-04-2024 Trop T High Sen 7 ng/L Normal <=14 [facility] Comment on above: Performed By: #### L 100.0100, L500.2500, L501.4021 #### [facility] [address] [place], [place], [id number] MCV (mean corpuscular volume ) determinationOrdered By: Conrado Richardson on 09-04-2024 MCV (RBC) [Entitic vol] 83.9 fL 81-99 [facility] Mean corpuscular hemoglobin (MCH) determinationOrdered By: Conrado Richardson on 09-04-2024 MCH (RBC) [Entitic mass] 27.5 pg 27.0-32.0 [facility] Mean corpuscular hemoglobin concentration (MCHC) determinationOrdered By: Conrado Richardson on 09-04-2024 MCHC (RBC) [Mass/Vol] 32.8 g/dL 32-36 [facility] Mean platelet volume determi nationOrdered By: Conrado Richardson on 09-04-2024 Platelet mean volume (Bld) [Entitic vol] 9.4 fL 6.2-12.0 [facility] Monocyte percentageOrdered B y: Conrado Richardson on 09-04-2024 Monocytes/100 WBC (Bld) 8.8 % 0-10 [facility] Neutrophil percentageOrdered By: Conrado Richardson on 09-04-2024 Neutrophils/100 WBC (Bld) 70.6 % High 47-70 [facility] Nucleated red blood cell per centageOrdered By: Conrado Richardson on 09-04-2024 Nucleated RBC/100 WBC (Bld) [Ratio] 0 % 0-5 [facility] Platelet countOrdered By: Wilson Richardson on 09-04-2024 Platelets (Bld) [#/Vol] 256 10*3/uL 150-450 [facility] Potassium measurement (mass/ volume)Ordered By: Conrado Richardson on 09-04-2024 Potassium (Unsp spec) [Mass/Vol] 3.8 mmol/L 3.3-5.1 [facility] RBC Auto (Bld) [#/Vol]Ordere d By: Conrado Richardson on 09-04-2024 RBC (Bld) [#/Vol] 4.22 10*6/uL 4.2-5.4 [facility] Serum creatinine measurement (mass/volume)Ordered By: Conrado Richardson on 09-04-2024 Creatinine [Mass/Vol] 0.45 mg/dL Low 0.70-1.20 [facility] Serum glucose measurement (m ass/volume)Ordered By: Conrdao Richardson on 09-04-2024 Glucose [Mass/Vol] 91 mg/dL 70-99 [facility] Serum or plasma calcium tra urement (mass/volume)Ordered By: Conrado Richardson on 09-04-2024 Calcium [Mass/Vol] 8.7 mg/dL 7.6-11.0 [facility] Serum or plasma urea nitroge n measurement (mass/volume)Ordered By: Conrado Richardson on 09-04-2024 Urea nitrogen [Mass/Vol] 7 mg/dL 4-19 [facility] Sodium levelOrdered By: Conrado Richardson on 09-04-2024 Sodium [Moles/Vol] 137 mmol/L 133-145 [facility] Troponin T.cardiac [Mass/vol ume] in Serum or Plasma by High sensitivity methodOrdered By: Conrado Richardson on 09-04-2024 Troponin T.cardiac High sensitivity method [Mass/Vol] 7 ng/L <14 [facility] URINE OB DIP B/Oon 5 Glucose Ql (U) Negative Neg mg/dL [facility] Protein.monoclonal (U) [Mass/Vol] trace Neg mg/dL [facility] White blood cell (WBC) count Ordered By: Conrado Richardson on 09-04-2024 WBC (Bld) [#/Vol] 11.8 10*3/uL High 4.4-11.0 [facility] URINE OB DIP B/Oon 5 Glucose Ql (U) Negative Neg mg/dL [facility] Interpretation and review of laboratory results Normal [facility] Protein.monoclonal (U) [Mass/Vol] Negative Neg mg/dL [facility] CNOVon 08-13-2024 CNOV Office Visit (FAMPWS ) SHAHZAD WOODARDJOSHAileen Clifford ([id number]) 3 F Date Time Provider Department 08/13/24 9:20 AM [facility] During your visit today, we recorded [...] Rhonda. - Planning a vaginal delivery at [place]. - Taking vitamins; denies nausea or emesis. 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 Recording using [employer] software for draft documentation of the visit was discussed with the patient/authorized automobile sales representative; all questions welcomed and answered. Patient/authorized automobile sales representative agreed to proceed Allergies As [...] (CLARITIN ORA (more content not included)... Normal [facility] CNPNon 08-06-2024 CNPN Telephone (OBGYWM) AMIRAH WOODARD ([id number]) 3 F Date Time Provider Department 08/06/24 [place] OBGYWM During your visit today, we recorded the following information about you: Caroline Mora RN 08/06/2024 12:39 PM Signed Breast pump request received from [employer]. Order to provider to sign. JIA Shane [...] sprays in each nostril once daily. - Kmlpjbhj-Vo-Xuv-Fe-FA tab Take 1 tablet by mouth once [...] Encounter Status:Closed by CAROLINE MORA on 08/08/24 [facility] 08-03-2024 [facility] Telephone (OGFVWE) AMIRAH WOODARD ([id number]) 3 F Date Time Provider Department 08/03/24 NURSE ENVIRONMENTAL COMMUNICATIONS SPECIALIST [facility] KAITY OGFVWE During your visit today, [...] sprays in each nostril once daily. - Juzqxate-Zd-Usm-Fe-FA tab Take 1 tablet by mouth once [...] Status:Closed by TIO HUTCHISON on 08/03/24 Normal [facility] BILE ACIDS, TOTALon 08-02-19 25 Bile acid [Moles/Vol] 5.3 umol/L Normal <13.6 [facility] Comment on above: Order Comment: Speci men Type: SWAB Ordering Facility: [facility] Address: [address] [place] [address] Result Comment: Refe rence interval applies to [...] Performed By: #### C VTV, BVAMP #### [facility] CLIA [id number] [address] [place], [place] [address] [place] CBC W Auto Differential pane l (Bld)on 08-01-2024 Basophils (Bld) [#/Vol] 0.09 10*3/uL [facility] Basophils/100 WBC (Bld) 0.6 % [facility] Differential cell count method Nom (Bld) Auto [facility] Eosinophils (Bld) [#/Vol] 0.82 10*3/uL High [facility] Eosinophils/100 WBC (Bld) 5.8 % [facility] Erythrocyte distribution width (RBC) [Ratio] 12.6 % 11.5 - 15.0 % [facility] Hematocrit (Bld) [Volume fraction] 36.5 % 36.0 - 46.0 % [facility] Hemoglobin (Bld) [Mass/Vol] 12 g/dL 11.5 - 15.5 g/dL [facility] Immature granulocytes (Bld) [#/Vol] 0.25 10*3/uL [facility] Immature granulocytes/100 WBC (Bld) 1.8 % [facility] Interpretation and review of laboratory results Abnormal [facility] Lymphocytes (Bld) [#/Vol] 2.2 10*3/uL [facility] Lymphocytes/100 WBC (Bld) 15.6 % [facility] MCH (RBC) [Entitic mass] 28 pg 26.0 - 34.0 pg [facility] MCHC (RBC) [Mass/Vol] 32.9 g/dL 30.5 - 36.0 g/dL [facility] MCV (RBC) [Entitic vol] 85.3 fL 80.0 - 100.0 fL [facility] Monocytes (Bld) [#/Vol] 0.92 10*3/uL High [facility] Monocytes/100 WBC (Bld) 6.5 % [facility] Neutrophils (Bld) [#/Vol] 9.86 10*3/uL High [facility] Neutrophils/100 WBC (Bld) 69.7 % [facility] Nucleated RBC (Bld) [#/Vol] [facility] Nucleated RBC/100 WBC (Bld) [Ratio] 0 % /100 WBC [facility] Platelet mean volume (Bld) [Entitic vol] 9.1 fL 9.0 - 12.7 fL [facility] Platelets (Bld) [#/Vol] 282 10*3/uL [facility] RBC (Bld) [#/Vol] 4.28 10*6/uL 3.90 - 5.2 0 m/uL [facility] WBC (Bld) [#/Vol] 14.14 10*3/uL High [facility] Basophils (Bld) [#/Vol] 0.09 10*3/uL Normal <0.11 [facility] Comment on above: Order Comment: Speci men Type: BLOOD SPECIMENOrdering Facility: [facility] Address: [address] [place], [place] [address] Performed By: #### 5 7021-8 ####[facility] [id number] [place] [address] [place] Basophils/100 WBC (Bld) 0.6 % Normal [facility] Comment on above: Order Comment: Speci men Type: BLOOD SPECIMENOrdering Facility: [facility] Address: [address] [place] [address] Performed By: #### 5 7021-8 ####[facility] [id number] [place] [address] [place] Differential cell count method Nom (Bld) Auto Normal [facility] Comment on above: Order Comment: Speci men Type: BLOOD SPECIMENOrdering Facility: [facility] Address: [address] [place] [address] Performed By: #### 5 7021-8 ####[facility] [id number] [place] [address] [place] Eosinophils (Bld) [#/Vol] 0.82 10*3/uL High <0.46 [facility] Comment on above: Order Comment: Speci men Type: BLOOD SPECIMENOrdering Facility: [facility] Address: [address] [place] [address] Performed By: #### 5 7021-8 ####[facility] [id number] [place] [address] [place] Eosinophils/100 WBC (Bld) 5.8 % Normal [facility] Comment on above: Order Comment: Speci men Type: BLOOD SPECIMENOrdering Facility: [facility] Address: [address] [place] [address] Performed By: #### 5 7021-8 ####[facility] [id number] [place] [address] [place] Erythrocyte distribution width (RBC) [Ratio] 12.6 % Normal 11.5-15.0 [facility] Comment on above: Order Comment: Speci men Type: BLOOD SPECIMENOrdering Facility: [facility] Address: [address] [place] [address] Performed By: #### 5 7021-8 ####[facility] NEAL [id number] [place] [address] [place] Hematocrit (Bld) [Volume fraction] 36.5 % Normal 36.0-46.0 [facility] Comment on above: Order Comment: Speci men Type: BLOOD SPECIMENOrdering Facility: [facility] Address: [address] [place] [address] Performed By: #### 5 7021-8 ####[facility] ERNCMILVIA [id number] [place] [address] [place] Hemoglobin (Bld) [Mass/Vol] 12.0 g/dL Normal 11.5-15.5 [facility] Comment on above: Order Comment: Speci men Type: BLOOD SPECIMENOrdering Facility: [facility] Address: [address] [place] [address] Performed By: #### 5 7021-8 ####[facility] ERANNAHilario [id number] [place] [address] [place] Immature granulocytes (Bld) [#/Vol] 0.25 10*3/uL High <0.10 [facility] Comment on above: Order Comment: Speci men Type: BLOOD SPECIMENOrdering Facility: [facility] Address: [address] [place] [address] Performed By: #### 5 7021-8 ####[facility] ERNCLIA [id number] [place] [address] [place] Immature granulocytes/100 WBC (Bld) 1.8 % Normal [facility] Comment on above: Order Comment: Speci men Type: BLOOD SPECIMENOrdering Facility: [facility] Address: [address] [place] [address] Performed By: #### 5 7021-8 ####[facility] MILLWNCLIA [id number] [place] [address] [place] Lymphocytes (Bld) [#/Vol] 2.20 10*3/uL Normal 1.00-4.00 [facility] Comment on above: Order Comment: Speci men Type: BLOOD SPECIMENOrdering Facility: [facility] Address: [address] [place] [address] Performed By: #### 5 7021-8 ####[facility] [id number] [place] [address] [place] Lymphocytes/100 WBC (Bld) 15.6 % Normal [facility] Comment on above: Order Comment: Speci men Type: BLOOD SPECIMENOrdering Facility: [facility] Address: [address] [place] [address] Performed By: #### 5 7021-8 ####[facility] [id number] [place] [address] [place] MCH (RBC) [Entitic mass] 28.0 pg Normal 26.0-34.0 [facility] Comment on above: Order Comment: Speci men Type: BLOOD SPECIMENOrdering Facility: [facility] Address: [address] [place] [address] Performed By: #### 5 7021-8 ####[facility] [id number] [place] [address] [place] MCHC (RBC) [Mass/Vol] 32.9 g/dL Normal 30.5-36.0 [facility] Comment on above: Order Comment: Speci men Type: BLOOD SPECIMENOrdering Facility: [facility] Address: [address] [place] [address] Performed By: #### 5 7021-8 ####[facility] ERNCLIA [id number] [place] [address] [place] MCV (RBC) [Entitic vol] 85.3 fL Normal 80.0-100.0 [facility] Comment on above: Order Comment: Speci men Type: BLOOD SPECIMENOrdering Facility: [facility] Address: [address] [place] [address] Performed By: #### 5 7021-8 ####[facility] [id number] [place] [address] [place] Monocytes (Bld) [#/Vol] 0.92 10*3/uL High <0.87 [facility] Comment on above: Order Comment: Speci men Type: BLOOD SPECIMENOrdering Facility: [facility] Address: [address] [place] [address] Performed By: #### 5 7021-8 ####[facility]NCO[facility] [id number] [place] [address] [place] Monocytes/100 WBC (Bld) 6.5 % Normal [facility] Comment on above: Order Comment: Speci men Type: BLOOD SPECIMENOrdering Facility: [facility] Address: [address] [place] [address] Performed By: #### 5 7021-8 ####[facility] [id number] [place] [address] [place] Neutrophils (Bld) [#/Vol] 9.86 10*3/uL High 1.45-7.50 [facility] Comment on above: Order Comment: Speci men Type: BLOOD SPECIMENOrdering Facility: [facility] Address: [address] [place] [address] Performed By: #### 5 7021-8 ####[facility] ERNCLI [id number] [place] [address] [place] Neutrophils/100 WBC (Bld) 69.7 % Normal [facility] Comment on above: Order Comment: Speci men Type: BLOOD SPECIMENOrdering Facility: [facility] Address: [address] [place] [address] Performed By: #### 5 7021-8 ####[facility] MICAHNGOC [id number] [place] [address] [place] Nucleated RBC (Bld) [#/Vol] 10*3/uL Normal <0.01 [facility] Comment on above: Order Comment: Speci men Type: BLOOD SPECIMENOrdering Facility: [facility] Address: [address] [place] [address] Performed By: #### 5 7021-8 ####[facility] ERNCMILVIA [id number] [place] [address] [place] Nucleated RBC/100 WBC (Bld) [Ratio] 0.0 /100 WBC Normal [facility] Comment on above: Order Comment: Speci men Type: BLOOD SPECIMENOrdering Facility: [facility] Address: [address] [place] [address] Performed By: #### 5 7021-8 ####[facility] ERNCLIA [id number] [place] [address] [place] Platelet mean volume (Bld) [Entitic vol] 9.1 fL Normal 9.0-12.7 [facility] Comment on above: Order Comment: Speci men Type: BLOOD SPECIMENOrdering Facility: [facility] Address: [address] [place] [address] Performed By: #### 5 7021-8 ####[facility] ERNCLIA [id number] [place] [address] [place] Platelets (Bld) [#/Vol] 282 10*3/uL Normal 150-400 [facility] Comment on above: Order Comment: Speci men Type: BLOOD SPECIMENOrdering Facility: [facility] Address: [address] [place] [address] Performed By: #### 5 7021-8 ####[facility] ERNCLIA [id number] [place] [address] [place] RBC (Bld) [#/Vol] 4.28 10*6/uL Normal 3.90-5.20 [facility] Comment on above: Order Comment: Speci men Type: BLOOD SPECIMENOrdering Facility: [facility] Address: [address] [place] [address] Performed By: #### 5 7021-8 ####[facility] ERNCLIA [id number] [place] [address] [place] WBC (Bld) [#/Vol] 14.14 10*3/uL High 3.70-11.00 [facility] Comment on above: Order Comment: Speci men Type: BLOOD SPECIMENOrdering Facility: [facility] Address: [address] [place] [address] Performed By: #### 5 7021-8 ####[facility] ERNCLIA [id number] [place] [address] [place] Comprehensive metabolic 2000 panelOrdered By: Jazmyn Joshua on 08-01-2024 Albumin [Mass/Vol] 3.4 g/dL Low 3.9 - 4.9 g/dL [facility] ALP [Catalytic activity/Vol] 110 U/L 34 - 123 U/L [facility] ALT [Catalytic activity/Vol] 12 U/L 7 - 38 U/L [facility] Anion gap [Moles/Vol] 12 mmol/L 8 - 15 mmol/L [facility] AST [Catalytic activity/Vol] 12 U/L Low 13 - 35 U/L [facility] Bilirubin [Mass/Vol] 0.3 mg/dL 0.2 - 1.3 mg/dL [facility] Calcium [Mass/Vol] 9 mg/dL 8.5 - 10. 2 mg/dL [facility] Chloride [Moles/Vol] 105 mmol/L 98 - 107 mmol/L [facility] CO2 [Moles/Vol] 19 mmol/L Low 22 - 30 mmol/L [facility] Creatinine [Mass/Vol] 0.53 mg/dL Low 0.58 - 0.96 mg/dL [facility] GFR/1.73 sq M.predicted among non-blacks MDRD (S/P/Bld) [Vol rate/Area] 137 mL/min/{1.73_m2} - PINF [facility] Comment on above: Estimated Glomerular Filtration [...] [Mass/Vol] 91 mg/dL 74 - 99 mg/dL [facility] Comment on above: The [place] Diab[employer] [place] Association (ADA) provides guidance for [...] Standards of Medical Care in Diabetes 2016, [place] [employer]. Diabetes Care. 2016.39(Suppl 1). Interpretation and review of laboratory results Abnormal [facility] Potassium [Moles/Vol] 3.9 mmol/L 3.7 - 5.1 mmol/L [facility] Protein [Mass/Vol] 6.3 g/dL 6.3 - 8.0 g/dL [facility] Sodium [Moles/Vol] 136 mmol/L 136 - 144 mmol/L [facility] Urea nitrogen [Mass/Vol] 9 mg/dL 7 - 21 mg/dL [facility] Comprehensive metabolic 2000 panelon 08-01-2024 Albumin [Mass/Vol] 3.4 g/dL Low 3.9-4.9 [facility] Comment on above: Order Comment: Speci men Type: SWAB Ordering Facility: [facility] Address: [address] [place] [address] Performed By: #### C VTV, BVAMP #### [facility] CLIA [id number] [address] [place] [address] [place] ALP [Catalytic activity/Vol] 110 U/L Normal 34-123 [facility] Comment on above: Order Comment: Speci men Type: SWAB Ordering Facility: [facility] Address: [address] [place] [address] Performed By: #### C VTV, BVAMP #### [facility] CLIA [id number] [address] [place] [address] [place] ALT [Catalytic activity/Vol] 12 U/L Normal 7-38 [facility] Comment on above: Order Comment: Speci men Type: SWAB Ordering Facility: [facility] Address: [address] [place] [address] Performed By: #### C VTV, BVAMP #### [facility] CLIA [id number] [address] [place] [address] [place] Anion gap [Moles/Vol] 12 mmol/L Normal 8-15 [facility] Comment on above: Order Comment: Speci men Type: SWAB [facility]ing Facility: [facility] Address: [address] [place] [address] Performed By: #### C VTV, BVAMP #### [facility] CLIA [id number] [address] [place] [address] [place] AST [Catalytic activity/Vol] 12 U/L Low 13-35 [facility] Comment on above: Order Comment: Speci men Type: SWAB [facility]ing Facility: [facility] Address: [address] [place] [address] Performed By: #### C VTV, BVAMP #### [facility] CLIA [id number] [address] [place] [address] [place] Bilirubin [Mass/Vol] 0.3 mg/dL Normal 0.2-1.3 [facility] Comment on above: Order Comment: Speci men Type: SWAB [facility]ing [facility]: [facility] Address: [address] [place] [address] Performed By: #### C VTV, BVAMP #### [facility] CLIA [id number] [address] [place] [address] [place] Calcium [Mass/Vol] 9.0 mg/dL Normal 8.5-10.2 [facility] Comment on above: Order Comment: Speci men Type: SWAB [facility]ing Facility: [facility] Address: [address] [place] [address] Performed By: #### C VTV, BVAMP #### [facility] CLIA [id number] [address] [place] [address] [place] Chloride [Moles/Vol] 105 mmol/L Normal 98-107 [facility] Comment on above: Order Comment: Speci men Type: SWAB [facility]ing Facility: [facility] Address: [address] [place] [address] Performed By: #### C VTV, BVAMP #### [facility] CLIA [id number] [address] [place] [address] [place] CO2 [Moles/Vol] 19 mmol/L Low 22-30 [facility] Comment on above: Order Comment: Speci men Type: SWAB Ordering Facility: [facility] Address: [address] [place] [address] Performed By: #### C VTV, BVAMP #### [facility] CLIA [id number] [address] [place] [address] [place] Creatinine [Mass/Vol] 0.53 mg/dL Low 0.58-0.96 [facility] Comment on above: Order Comment: Speci men Type: SWAB Ordering Facility: [facility] Address: [address] [place] [address] Performed By: #### C VTV, BVAMP #### [facility] CLIA [id number] [address] [place] [address] [place] Creatinine and Glomerular filtration rate.predicted panel (S/P/Bld) 137 mL/min/1.73m??? Normal >=60 [facility] Comment on above: Order Comment: Violeta alvarez Type: SWAB Ordering Facility: [facility] Address: [address] [place] [address] Result Comment: Ketty mated Glomerular Filtration Rate [...] Performed By: #### C VTV, BVAMP #### [facility] CLIA [id number] [address] [place] [address] [place] Glucose [Mass/Vol] 91 mg/dL Normal 74-99 [facility] Comment on above: Order Comment: Violeta alvarez Type: SWAB Ordering Facility: [facility] Address: [address] [place] [address] Result Comment: The [place] Diabetes Association (ADA) provides guidance for cutoff [...] Standards of Medical Care in Diabetes 2016, [place] Diabetes Association. Diabetes Care. 2016.39(Suppl 1). Performed By: #### C VTV, BVAMP #### [facility] CLIA [id number] [address] [place] [address] [place] Potassium [Moles/Vol] 3.9 mmol/L Normal 3.7-5.1 [facility] Comment on above: Order Comment: Speci men Type: SWAB Ordering Facility: [facility] Address: [address] [place] [address] Performed By: #### C VTV, BVAMP #### [facility] CLIA [id number] [address] [place] [address] [place] Protein [Mass/Vol] 6.3 g/dL Normal 6.3-8.0 [facility] Comment on above: Order Comment: Speci men Type: SWAB [facility]ing [facility]: [facility] Address: [address] [place] [address] Performed By: #### C VTV, BVAMP #### [facility] CLIA [id number] [address] [place] [address] [place] Sodium [Moles/Vol] 136 mmol/L Normal 136-144 [facility] Comment on above: Order Comment: Speci men Type: SWAB [facility]ing Facility: [facility] Address: [address] [place] [address] Performed By: #### C VTV, BVAMP #### [facility] CLIA [id number] [address] [place] [address] [place] Urea nitrogen [Mass/Vol] 9 mg/dL Normal 7-21 [facility] Comment on above: Order Comment: Speci men Type: SWAB [facility]ing Facility: [facility] Address: [address] [place] [address] Performed By: #### C VTV, BVAMP #### [facility] CLIA [id number] [address] [place] [address] [place] BACTERIAL VAGINOSIS NAATon 0 5- Lactobacillus crispatus+gasseri+imelda enii + Gardnerella vaginalis + Atopobium vaginae rRNA MEG+probe Ql (Vag fld) Not detected Normal Not detected [facility] Comment on above: Order Comment: Speci men Type: SWABOrdering Facility: [facility] Address: [address] [place] [address] Performed By: #### C VTV, BVAMP ####[facility] LABCLIA [id number] [place] [address] [place] FRANCO/TRICHOMONAS NAATon 0 07-20-2024 C. glabrata RNA MEG+probe Ql (Vag fld) Not detected Normal Not detected [facility] Comment on above: Order Comment: Speci men Type: SWABOrdering Facility: [facility] Address: [address] [place] [address] Performed By: #### C VTV, BVAMP ####[facility] LABCLIA [id number] [address] [place] [facility] Franco sp DNA MEG+probe Ql (Vag fld) Not detected Normal Not detected [facility] Comment on above: Order Comment: Speci men Type: SWABOrdering Facility: [facility] Address: [address] [place] [address] Result Comment: The Franco species group target includes C. albicans, C. tropicalis, C. parapsilosis, and C. dubliniensis. Performed By: #### C VTV, BVAMP ####[facility] LABCLIA [id number] [address] [place] T. vaginalis DNA MEG+probe Ql (Unsp spec) Not detected Normal Not detected [facility] Comment on above: Order Comment: Speci men Type: SWABOrdering Facility: [facility] Address: [address] [place] [address] Performed By: #### C VTV, BVAMP ####[facility] LABCLIA [id number] [place] [address] [place] CBC W Auto Differential pane l (Bld)on 07-20-2024 Basophils (Bld) [#/Vol] 0.07 10*3/uL Normal <0.11 [facility] Comment on above: Order Comment: Speci men Type: BLOOD SPECIMEN Ordering Facility: [facility] Address: [address] [place] [address] Performed By: #### 5 7021-8 #### [facility] CLIA [id number] [address] [place] [address] [place] Basophils/100 WBC (Bld) 0.5 % Normal [facility] Comment on above: Order Comment: Speci men Type: BLOOD SPECIMEN Ordering Facility: [facility] Address: [address] [place] [address] Performed By: #### 5 7021-8 #### [facility] CLIA [id number] [address] [place] [address] [place] Differential cell count method Nom (Bld) Auto Normal [facility] Comment on above: Order Comment: Speci men Type: BLOOD SPECIMEN Ordering Facility: [facility] Address: [address] [place] [address] Performed By: #### 5 7021-8 #### [facility] CLIA [id number] [address] [place] [address] [place] Eosinophils (Bld) [#/Vol] 0.58 10*3/uL High <0.46 [facility] Comment on above: Order Comment: Speci men Type: BLOOD SPECIMEN Ordering Facility: [facility] Address: [address] [place] [address] Performed By: #### 5 7021-8 #### [facility] CLIA [id number] [address] [place] [address] [place] Eosinophils/100 WBC (Bld) 4.3 % Normal [facility] Comment on above: Order Comment: Speci men Type: BLOOD SPECIMEN Ordering Facility: [facility] Address: [address] [place] [address] Performed By: #### 5 7021-8 #### [facility] CLIA [id number] [address] [place] [address] [place] Erythrocyte distribution width (RBC) [Ratio] 12.7 % Normal 11.5-15.0 [facility] Comment on above: Order Comment: Speci men Type: BLOOD SPECIMEN Ordering Facility: [facility] Address: [address] [place] [address] Performed By: #### 5 7021-8 #### [facility] CLIA [id number] [address] [place] [address] [place] Hematocrit (Bld) [Volume fraction] 35.8 % Low 36.0-46.0 [facility] Comment on above: Order Comment: Speci men Type: BLOOD SPECIMEN Ordering Facility: [facility] Address: [address] [place] [address] Performed By: #### 5 7021-8 #### [facility] [id number] [address] [place] [address] [place] Hemoglobin (Bld) [Mass/Vol] 11.8 g/dL Normal 11.5-15.5 [facility] Comment on above: Order Comment: Speci men Type: BLOOD SPECIMEN [facility] [facility] Address: [address] [place] [address] Performed By: #### 5 7021-8 #### [facility] [id number] [address] [place] [address] [place] Immature granulocytes (Bld) [#/Vol] 0.15 10*3/uL High <0.10 [facility] Comment on above: Order Comment: Speci men Type: BLOOD SPECIMEN Ordering Facility: [facility] Address: [address] [place] [address] Performed By: #### 5 7021-8 #### [facility] [id number] [address] [place] [address] [place] Immature granulocytes/100 WBC (Bld) 1.1 % Normal [facility] Comment on above: Order Comment: Speci men Type: BLOOD SPECIMEN Ordering Facility: [facility] Address: [address] [place] [address] Performed By: #### 5 7021-8 #### [facility] CLIA [id number] [address] [place] [address] [place] Lymphocytes (Bld) [#/Vol] 2.19 10*3/uL Normal 1.00-4.00 [facility] Comment on above: Order Comment: Speci men Type: BLOOD SPECIMEN Ordering Facility: [facility] Address: [address] [place] [address] Performed By: #### 5 7021-8 #### [facility] CLIA [id number] [address] [place] [address] [place] Lymphocytes/100 WBC (Bld) 16.1 % Normal [facility] Comment on above: Order Comment: Speci men Type: BLOOD SPECIMEN Ordering Facility: [facility] Address: [address] [place] [address] Performed By: #### 5 7021-8 #### [facility] CLIA [id number] [address] [place] [address] [place] MCH (RBC) [Entitic mass] 28.7 pg Normal 26.0-34.0 [facility] Comment on above: Order Comment: Speci men Type: BLOOD SPECIMEN Ordering Facility: [facility] Address: [address] [place] [address] Performed By: #### 5 7021-8 #### [facility] CLIA [id number] [address] [place] [address] [place] MCHC (RBC) [Mass/Vol] 33.0 g/dL Normal 30.5-36.0 [facility] Comment on above: Order Comment: Speci men Type: BLOOD SPECIMEN Ordering Facility: [facility] Address: [address] [place] [address] Performed By: #### 5 7021-8 #### [facility] CLIA [id number] [address] [place] [address] [place] MCV (RBC) [Entitic vol] 87.1 fL Normal 80.0-100.0 [facility] Comment on above: Order Comment: Speci men Type: BLOOD SPECIMEN Ordering Facility: [facility] Address: [address] [place] [address] Performed By: #### 5 7021-8 #### [facility] CLIA [id number] [address] [place] [address] [place] Monocytes (Bld) [#/Vol] 0.86 10*3/uL Normal <0.87 [facility] Comment on above: Order Comment: Speci men Type: BLOOD SPECIMEN Ordering Facility: [facility] Address: [address] [place] [address] Performed By: #### 5 7021-8 #### [facility] CLIA [id number] [address] [place] [address] [place] Monocytes/100 WBC (Bld) 6.3 % Normal [facility] Comment on above: Order Comment: Speci men Type: BLOOD SPECIMEN Ordering Facility: [facility] Address: [address] [place] [address] Performed By: #### 5 7021-8 #### [facility] CLIA [id number] [address] [place] [address] [place] Neutrophils (Bld) [#/Vol] 9.79 10*3/uL High 1.45-7.50 [facility] Comment on above: Order Comment: Speci men Type: BLOOD SPECIMEN Ordering Facility: [facility] Address: [address] [place] [address] Performed By: #### 5 7021-8 #### [facility] CLIA [id number] [address] [place] [address] [place] Neutrophils/100 WBC (Bld) 71.7 % Normal [facility] Comment on above: Order Comment: Speci men Type: BLOOD SPECIMEN Ordering Facility: [facility] Address: [address] [place] [address] Performed By: #### 5 7021-8 #### [facility] CLIA [id number] [address] [place] [address] [place] Nucleated RBC (Bld) [#/Vol] 10*3/uL Normal <0.01 [facility] Comment on above: Order Comment: Speci men Type: BLOOD SPECIMEN Ordering Facility: [facility] Address: [address] [place] [address] Performed By: #### 5 7021-8 #### [facility] CLIA [id number] [address] [place] [address] [place] Nucleated RBC/100 WBC (Bld) [Ratio] 0.0 /100 WBC Normal [facility] Comment on above: Order Comment: Speci men Type: BLOOD SPECIMEN Ordering Facility: [facility] Address: [address] [place] [address] Performed By: #### 5 7021-8 #### [facility] CLIA [id number] [address] [place] [address] [place] Platelet mean volume (Bld) [Entitic vol] 9.0 fL Normal 9.0-12.7 [facility] Comment on above: Order Comment: Speci men Type: BLOOD SPECIMEN Ordering Facility: [facility] Address: [address] [place] [address] Performed By: #### 5 7021-8 #### [facility] CLIA [id number] [address] [place] [address] [place] Platelets (Bld) [#/Vol] 269 10*3/uL Normal 150-400 [facility] Comment on above: Order Comment: Speci men Type: BLOOD SPECIMEN Ordering Facility: [facility] Address: [address] [place] [address] Performed By: #### 5 7021-8 #### [facility] CLIA [id number] [address] [place] [address] [place] RBC (Bld) [#/Vol] 4.11 10*6/uL Normal 3.90-5.20 [facility] Comment on above: Order Comment: Speci men Type: BLOOD SPECIMEN Ordering Facility: [facility] Address: [address] [place] [address] Performed By: #### 5 7021-8 #### [facility] CLIA [id number] [address] [place] [address] [place] WBC (Bld) [#/Vol] 13.64 10*3/uL High 3.70-11.00 [facility] Comment on above: Order Comment: Speci men Type: BLOOD SPECIMEN Ordering Facility: [facility] Address: [address] [place] [address] Performed By: #### 5 7021-8 #### [facility] CLIA [id number] [address] [place] [address] [place] GESTATIONAL GLUCOSE SCREEN, 1-HOUR, 50 GRAM, NON-FASTINGon 07-20-2024 Glucose [Mass/Vol] 116 mg/dL Normal 74-134 [facility] Comment on above: Order Comment: Speci men Type: BLOOD SPECIMENOrdering Facility: [facility] Address: [address] [place] [address] Result Comment: [facility] Congress of Obstetricians and Gynecologists (Emir/Shon) guidelines state a gestational diabetes mellitus positive screen is made, in women not previously diagnosed with overt diabetes, when the 1 hr plasma glucose level is equal to or above 140 mg/dL. The [facility] Ground Service Equipment Mechanic and [facility] [place] recommends a 135 mg/dL cutoff. Performed By: #### G LTGST ####[facility] [id number] [place] [address] [place] Reagin and Treponema pallidu m IgG and IgM [Interp]on 07-20-2024 T. pallidum IgG+IgM IA Ql (S) Non-Reactive Normal Nonreactive [facility] Comment on above: Order Comment: Speci antonio Type: BLOOD SPECIMENOrdering Facility: [facility] Address: [address] [place] [address] Performed By: #### 7 3752-8 ####[facility] LABIA [id number] [place] [address] [place] Reagin+T pallidum IgG+IgM Se rPl-Impon 07-20-2024 Reagin and Treponema pallidum IgG and IgM [Interp] Cannot exclude recent Treponemal infection if specimen collected within 7-10 days after appearance of suspect lesions or 2-3 weeks after an exposure. Clinical correlation is required. Normal [facility] Comment on above: Order Comment: Violeta alvarez Type: BLOOD SPECIMENOrdering Facility: [facility] Address: [address] [place] [address] Performed By: #### 7 3752-8 ####[facility] LABIA [id number] [place] [address] [place] CNPSherine 07-19-2024 CNPN Telephone (OBGYWM) AMIRAH WOODARD ([id number]) 3 F Date Time Provider Department 07/19/24 CASTILLO MCKEON During your visit today, we recorded the following information about you: Kia Sheldon RN 07/19/2024 4:23 PM Signed 28w2d Patient called to report that she has not felt the baby move since this morning. Inquired if she did kick counts today. Patient has not. Advised that she would need to go to [facility] for evaluation given the office hours. Instructed patient how to do kick counts if she wanted to see how many movements she has in an hour first. Updated HANDP faxed to [facility]. JIA Bundy Rebecca L, MD 07/19/2024 4:27 PM Signed noted. thanks. Castillo Mckeon MD Allergies As of Date: 07/19/2024 Noted Allergy Reaction SEASONAL ALLERGIES 12/29/2017 14 - Other: See Comments Comments: Puffy itchy eyes and scratchy throat. Date Reviewed: 06/21/2024 Reviewed by: Shree Santos MA - Fully Assessed Reason for Visit: Decreased FM [Other] Prescriptions as of 07/19/2024 - Dprdluer-Io-Cst-Fe-FA tab Take 1 tablet by mouth once [...] Status:Closed by VIVIAN ADAMS on 07/19/24 Normal [facility] UA DIP, URINE (POC)on 2024 BILIRUBIN UA (POCT) Negative Negative [facility] CLARITY UA (POCT) Clear [facility] COLOR UA (POCT) Yellow [facility] GLUCOSE UA (POCT) Negative Negative mg/dL [facility] Hemoglobin Ql (U) Negative Negative [facility] Interpretation and review of laboratory results Abnormal [facility] KETONE UA (POCT) Negative Negative mg/dL [facility] LEUKOCYTES UA (POCT) Trace Abnormal Negative [facility] NITRITE UA (POCT) Negative [facility] PH UA (POCT) 7 4.5 - 8.0 [facility] Protein Ql (U) Negative Negative mg/dL [facility] SPECIFIC GRAVITY UA (POCT) 1.025 1.005 - 1.030 [facility] UROBILINOGEN UA (POCT) 0.2 Normal E.U./d L [facility] Location:[facility], [address] , [place], [place], [id number] [place] [address] POINT OF CARE [facility] Examination level ultrasound on 05-29-2024 Indication [...] 14 oz EFW by: Hadlock (HC-AC-FL) Extended Timber Inspector 5.0 mm CM 4.4 mm 28% Nicolaides [...] normal LVOT view: normal 3-vessel view: normal 5-upftry-ftfcvka view: normal Heart / Thorax Situs: situs [...] Read By: Kermit Carmen M.D. 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 MD Monalisa Oleary Jennifer, JIA 05/01/2024 3:44 PM Signed Left message for patient to call office. Kia Sheldon RN Allergies As of Date: 05/01/2024 Noted Allergy Reaction SEASONAL ALLERGIES 12/29/2017 14 - Other: See Comments Comments: Puffy itchy eyes and scratchy throat. Date Reviewed: 04/27/2024 Reviewed by: Shree Santos MA - Fully Assessed Reason for Visit: Question (OB Question) [4952] Prescriptions as of 05/01/2024 - Mqzcaold-Zt-Fye-Fe-FA tab Take 1 tablet by mouth once [...] Status:Closed by KIA SHELDON on 05/01/24 Normal [facility] Emergency Department Summary on 04-28-2024 Emergency Department Summary [facility] Medical Records Department [address] [place] [address] Emergency Department Summary 04/28/24 MR#: [id number] Acct: [id number] Name: AMIRAH WOODARD Rep #: [id number] : 2005 18 From: Shraddha HAYDEN PCP: Dr. Que Chavez MD Status:DEP ER Location: ED HPI History of Present Illness Chief Complaint: General Illness Narrative Narrative: 18-year-old female is 16 weeks and developed congestion yesterday and this morning the fatigue, chills, body aches, headache and cough. She works in the [employer] and has been around patients with different respiratory viruses. She called her HEALTH ADMINISTRATOR who recommended she come in and be screened for the flu. She also has urinary frequency today but no burning or hematuria. She has no abdominal pain or vaginal bleeding or discharge. PFSH PFS Medical History Left ankle pain Home Medications ???Medication ???Instructions ???Recorded ???Last Taken ???Type Lactobacillus 25 billion cap PO 10/04/23 Unknown History cell-Bifido 25 billion szhs-AEE-atuii capsule albuterol sulfate 90 mcg/actuation inhalation 10/04/23 [...] Ox 100 Oxygen Delivery Method Room Air [facility] Narrative Medical decision making narrative: Differential: Viral [...] and recommended Tylenol and follow-up with her HEALTH ADMINISTRATOR. She was discharged in stable condition. Lab Data Attestation: I reviewed the patient's lab results. Labs: Laboratory Results - last 24 hr 04/28/24 20:42 Urine Color Yellow Urine Clarity Clear Urine pH 6.0 Ur Specific [place] 1.015 Urine Protein 15 H Urine Glucose (UA) Normal Urine Ketones Negative Urine Occult Blood Negative Urine Nitrite Negative Urine Bilirubin Negative Urine Urobilinogen Normal Ur Leukocyte Esterase Negative Urine RBC 0 SEEN Urine WBC 0 SEEN Ur Squamous Epith Cells 0 SEEN Urine Bacteria 0 SEEN Urine Mucus 0 SEEN [facility] Lab Data Labs: Laborator (more content not included)... Normal [facility] M100.678on 04-28-2024 M100.678 SARS-CoV-2 (COVID 19 ) Negative INFLUENZA A Negative INFLUENZA B Negative RSV PCR Negative Normal [facility] Comment on above: Performed By: #### M 100.678 #### [facility] [address] [place], [address] Urinalysis, Completeon 04-28 RBC 0 SEEN Normal 0-5 [facility] Comment on above: Order Comment: CLEAN CATCH Performed By: #### L 400.0001 #### [facility] [address] [place], [address] BACTERIA 0 SEEN Normal None Seen [facility] Comment on above: Order Comment: CLEAN CATCH Performed By: #### L 400.0001 #### [facility] [address] [place], [address] EPI,SQUAMOUS 0 SEEN Normal 5-10 [facility] Comment on above: Order Comment: CLEAN CATCH Performed By: #### L 400.0001 #### [facility] [address] [place], [address] Mucus Ql (Urine sed) 0 SEEN Normal [facility] Comment on above: Order Comment: CLEAN CATCH Performed By: #### L 400.0001 #### [facility] [address] [place], [address] WBC 0 SEEN Normal 0-5 [facility] Comment on above: Order Comment: CLEAN CATCH Performed By: #### L 400.0001 #### [facility] [address] [place], [address] CNPNon 04-13-2024 JOSELYNN Telephone (OBJERRODWM) AMIRAH WOODARD ([id number]) 3 F Date Time Provider Department 04/13/24 [...] by LA DEL CASTILLO on 04/13/24 Normal [facility] nuchal translucency me asured by Quentin 04-03-2024 Indication First trimester anatomic survey Maternal obesity, BMI >30 Impression REMOTE READ The patient is referred for a first trimester anatomy scan including nuchal translucency measurement as clinically indicated. - Single, live, intrauterine . - [facility] rump length measurement is consistent with the [...] view: normal 4-chamber view with color: normal 5-tqlpyu-lxpwktk view: normal Abdominal cord insertion: normal Stomach: [...] Read By: Marietta Burr M.D. MATERNAL MEDICINE [facility] Radiology Study observation (narrative) [facility] BACTERIAL VAGINOSIS NAATon 0 03-28-2024 Lactobacillus crispatus+gasseri+imelda enii + Gardnerella vaginalis + Atopobium vaginae rRNA MEG+probe Ql (Vag fld) Not detected Normal Not detected [facility] Comment on above: Order Comment: Speci men Type: SWABOrdering Facility: [facility] Address: [address] [place] [address] Performed By: #### C VTV, BVAMP ####[facility] LABCLIA [id number] [place] [address] [place] FRANCO/TRICHOMONAS NAATon 0 03-28-2024 C. glabrata RNA MEG+probe Ql (Vag fld) Not detected Normal Not detected [facility] Comment on above: Order Comment: Speci men Type: SWABOrdering Facility: [facility] Address: [address] [place] [address] Performed By: #### C VTV, BVAMP ####[facility] LABCLIA [id number] [address] [place] Franco sp DNA MEG+probe Ql (Vag fld) Detected Abnormal Not detected [facility] Comment on above: Order Comment: Speci men Type: SWABOrdering Facility: [facility] Address: [address] [place] [address] Result Comment: The Franco species group target includes C. albicans, C. tropicalis, C. parapsilosis, and C. dubliniensis. Performed By: #### C VTV, BVAMP ####[facility] LABCLIA [id number] [address] [place] T. vaginalis DNA MEG+probe Ql (Unsp spec) Not detected Normal Not detected [facility] Comment on above: Order Comment: Speci men Type: SWABOrdering Facility: [facility] Address: [address] [place] [address] Performed By: #### C VTV, BVAMP ####[facility] LABCLIA [id number] [address] [place] CNPSherine 03-22-2024 JOSELYNN Telephone (OBGYWM) AMIRAH WOODARD ([id number]) 3 F Date Time Provider Department 03/22/24 [...] Date Reviewed: 03/19/2024 Reviewed by: Josiane Goodwin APRN.GLASS SCULLION - Fully Assessed Reason for Visit: Medication Question [2218] Prescriptions as of 03/22/2024 - amoxicillin (AMOXIL) [...] by LA DEL CASTILLO on 03/22/24 Normal [facility] CNOVon 03-19-2024 CNOV Office Visit (PEDSWS ) AMIRAH WOODARD ([id number]) 3 F Date Time Provider Department 03/19/24 1:45 PM JOSIANE GOODWIN PEDSWS During your visit today, we recorded the following information about you: Temperature Pulse Respiration Weight 98.2 degrees 84/minute 16/minute 87.6 kg Josiane Goodwin, HEEL WASHER STRINGING MACHINE OPERATOR.GLASS SCULLION 03/20/2024 9:03 PM Signed PEDIATRIC SICK VISIT [...] Date Reviewed: 03/19/2024 Reviewed by: Josiane Goodwin APRN.GLASS SCULLION - Fully Assessed Reason for Visit: Cough [...] 03/19/2024 Rou (more content not included)... Normal [facility] CNOVon 03-13-2024 CN Office Visit (WSTR ) VANCEAMIRAH Darrin ([id number]) 3 F Date Time Provider Department 03/13/24 1:00 PM ROBERTO POWERS [facility] During your visit today, we recorded the following information about you: Temperature Pulse Respiration Blood pressure 97.6 degrees 87/minute 18/minute 110/72 Weight 87.1 kg Roberto Powers PA-C 03/13/2024 12:33 PM Signed This note was created using Groove Club[employer]. Subjective Amirah Clifford Vance is a 18 [...] the patient was advised to see her HEALTH ADMINISTRATOR for further evaluation and management. CLINICAL IMPRESSION: [...] Diagnosis:Sore throat [J02.9] Order(s):STREP A MOLECULAR (POC) [0194639] Order #: [id number]. #:[id number] Prescriptions as of 03/13/2024 - aspirin, enteric [...] teen in f*02/21/2024 Level of Service: OFFICE/OUTPATIENT [facility] 30 MINUTES [77072] Encounter Status:Closed by PRIYA, ROBERTO on 03/13/24 Normal [facility] [id number] PLUSon 03-13-2024 Cell-free DNA./Cell-free DNA.total Dosage of chromosome-specific cfDNA (cfDNA) [Molar fraction] 18% Normal [facility] Comment on above: Order Comment: Speci men Type: BLOOD SPECIMENOrdering Facility: [facility] Address: [facility] [place] [address] Performed By: #### M AT21 ####[facility] LABCLIA [id number] [place] [address] Chr 13+18+21+X+Y aneuploidy Dosage of chromosome-specific cfDNA Ql (cfDNA) Negative Normal [facility] Comment on above: Order Comment: Speci men Type: BLOOD SPECIMENOrdering Facility: [facility] Address: [address] [place] [address] Performed By: #### M AT21 ####[facility] LABCLIA [id number] [place] [address] Chr 21 trisomy Dosage of chromosome-specific cfDNA Ql (cfDNA) Negative Normal [facility] Comment on above: Order Comment: Speci men Type: BLOOD SPECIMENOrdering Facility: [facility] Address: [address] [place] [address] Performed By: #### M AT21 ####[facility] LABCLIA [id number] [place] [address] Chr X and Y aneuploidy risk Sequencing Ql (cfDNA) [Interp] Not detected Normal [facility] Comment on above: Order Comment: Speci men Type: BLOOD SPECIMENOrdering Facility: [facility] Address: [address] [place] [address] Result Comment: Not Detected Not Detected Performed By: #### M AT21 ####[facility] LABCLIA [id number] [place] [address] Citation Jn (Reference lab test) Comment Normal [facility] Comment on above: Order Comment: Speci men Type: BLOOD SPECIMENOrdering Facility: [facility] Address: [address] [place] [address] Result Comment: 1. P иван DILL, et al. Audra Med. 2012;14(3):296-305. 2. Jamel HARRELL et al. Prenat Diag. 2013;33(6):591-597. 3. Edvin C, et al. Clin Chem. 2015 Jun;61(4):608-616. 4. Jacey DILL, et al. Audra Med. 2011;13(11):913-920. 5. ACOG/SMFM Practice Bulletin No. 226, Dec 2019. Performed By: #### M AT21 ####[facility] LABCLIA [id number] [place] [address] Gestational age Estimated from conception date Spencer Normal [facility] Comment on above: Order Comment: Speci men Type: BLOOD SPECIMENOrdering Facility: [facility] Address: [address] [place] [address] Performed By: #### M AT21 ####[facility] LABCLIA [id number] [place] [address] GESTATIONALAGE AGE > OR = 9W Yes Normal [facility] Comment on above: Order Comment: Speci men Type: BLOOD SPECIMENOrdering Facility: [facility] Address: [address] [place] [address] Performed By: #### M AT21 ####[facility] LABCLIA [id number] [place] [address] Laboratory comment Jn (Report) Comment Normal [facility] [facility] Comment on above: Order Comment: Speci men Type: BLOOD SPECIMENOrdering Facility: [facility] Address: [address] [place] [address] Result Comment: The MaterniT(R) 21 PLUS laboratory-developed test (LDT) analyzes circulating cell-free DNA from a maternal blood sample. This test is used for screening purposes and not diagnostic. Clinical correlation is recommended. Validation data on twin pregnancies is limited and the ability of this test to detect aneuploidy in higher multiple gestations has not yet been validated. Performed By: #### M AT21 ####[facility] LABCLIA [id number] [place] [address] guest services director name Nom (Provider) Comment Normal [facility] Comment on above: Order Comment: Speci men Type: BLOOD SPECIMENOrdering Facility: [facility] Address: [address] [place] [address] Result Comment: This specimen showed an expected representation of chromosome 21, 18 and 13 material. Clinical correlation is suggested. Comment Jean Claude Guzmán MD, PhD, Director, [employer] Performed By: #### M AT21 ####Online [facility] LABCLIA [id number] [place] [address] LIMITATIONS OF THE TEST Comment Normal [facility] Comment on above: Order Comment: Speci men Type: BLOOD SPECIMENOrdering Facility: [facility] Address: [address], [place] [address] Result Comment: Steve shin the results of [...] Performed By: #### M AT21 ####[facility] LABCLIA [id number] [place] [id number] Monosomy X risk Dosage of chromosome-specific cfDNA Ql (Plasma cell-free+WBC DNA) [Interp] Not detected Normal [facility] Comment on above: Order Comment: Speci men Type: BLOOD SPECIMENOrdering Facility: [facility] Address: [address] [place] [address] Performed By: #### M AT21 ####[facility] LABCLIA [id number] [place] [id number] NEGATIVE PREDICTIVE VALUE Note Normal [facility] Comment on above: Order Comment: Speci men Type: BLOOD SPECIMENOrdering Facility: [facility] Address: [address] [place] [address] Result Comment: The Negative Predictive Value (NPV) for trisomy 21, 18, and 13 is greater than 99%. The NPV for SCA and ESS cannot be calculated as SCA and ESS are only reported when an abnormality is detected. Performed By: #### M AT21 ####[facility] LABCLIA [id number] [place] [address] NOTE Comment Normal [facility] Comment on above: Order Comment: Speci men Type: BLOOD SPECIMENOrdering Facility: [facility] Address: [address] [place] [address] Result Comment: See Notes [employer] is a subsidiary of [employer], using the brand [employer]. This test was developed and its performance characteristics determined by [employer]. It has not been cleared or approved by the Food and Drug Administration. This laboratory is certified under the Clinical Laboratory Improvement Amendments (CLIA) as qualified to perform high complexity clinical laboratory testing and accredited by the [employer] (CAP). If there is future clinical need for adding MaterniT GENOME testing, this specimen will be available until term. [facility] samples will not be retained beyond 60 days. [facility] patients will have to send a new sample for re-sequencing ([facility] Test Code: [id number]). Performed By: #### M AT21 ####[facility] LABCLIA [id number] [facility] [place] [place] [address] PERFORMANCE CHARACTERISTICS Note Normal [facility] Comment on above: Order Comment: Violeta alvarez Type: BLOOD SPECIMENOrdering Facility: [facility] Address: [address], [place] [address] Result Comment: ! Sex ! Accuracy: 99.4% [...] gestation only. Performed By: #### M AT21 ####[employer] LABmobiDEOSIA [id number] [place] [address] POSITIVE PREDICTIVE VALUE N/A Normal [facility] Comment on above: Order Comment: Speci antonio Type: BLOOD SPECIMENOrdering Facility: [facility] Address: [address] [place] [address] Performed By: #### M AT21 ####[employer] LABCLIA [id number] [place] [address] Reference Lab Test Method Comment Normal [facility] Comment on above: Order Comment: Violeta alvarez Type: BLOOD SPECIMENOrdering Facility: [facility] Address: [address] [place] [address] Result Comment: See Notes Circulating cell-free DNA [...] and 22. Performed By: #### M AT21 ####[facility] LABCLIA [id number] [place] [address] Sex Dosage of chromosome-specific cfDNA Nom (cfDNA) Comment Normal [facility] Comment on above: Order Comment: Speci men Type: BLOOD SPECIMENOrdering Facility: [facility] Address: [address] [place] [address] Result Comment: Cons istent with Male Performed By: #### M AT21 ####[facility] LABCLIA [id number] [place] [address] Test performance information Jn (Unsp spec) Comment Normal [facility] Comment on above: Order Comment: Speci men Type: BLOOD SPECIMENOrdering Facility: [facility] Address: [address] [place] [address] Result Comment: The performance characteristics of the MaterniT(R) 21 PLUS laboratory-developed test (LDT) have been determined in a clinical validation study with women at increased risk for chromosomal aneuploidy.[1-4] Performed By: #### M AT21 ####Online [facility] LABCLIA [id number] [place] [address] Trisomy 13 risk Dosage of chromosome-specific cfDNA Ql (cfDNA) [Interp] Negative Normal [facility] Comment on above: Order Comment: Speci men Type: BLOOD SPECIMENOrdering Facility: [facility] Address: [address] [place] [address] Performed By: #### M AT21 ####[facility] LABCLIA [id number] [place] [address] Trisomy 18 risk Dosage of chromosome-specific cfDNA Ql (Plasma cell-free+WBC DNA) [Interp] Negative Normal [facility] Comment on above: Order Comment: Speci men Type: BLOOD SPECIMENOrdering Facility: [facility] Address: [address] [place] [address] Performed By: #### M AT21 ####Online [facility] LABCLIA [id number] [facility] [place] [address] STREP A MOLECULAR (POC)on Procedural Control Valid [facility] Strep A (POCT) Negative Negative [facility] CBC W Auto Differential pane l (Bld)on 02-24-2024 Basophils (Bld) [#/Vol] 0.07 10*3/uL Normal <0.11 [facility] Comment on above: Order Comment: Speci men Type: BLOOD SPECIMENOrdering Facility: [facility] Address: [address] [place] [address] Performed By: #### 5 7021-8 ####[facility] [id number] [place] [address] [place] Basophils/100 WBC (Bld) 0.7 % Normal [facility] Comment on above: Order Comment: Speci men Type: BLOOD SPECIMENOrdering Facility: [facility] Address: [address] [place] [address] Performed By: #### 5 7021-8 ####[facility] [id number] [place] [address] [place] Differential cell count method Nom (Bld) Auto Normal [facility] Comment on above: Order Comment: Speci men Type: BLOOD SPECIMENOrdering Facility: [facility] Address: [address] [place] [address] Performed By: #### 5 7021-8 ####[facility] MILLWNCLIA [id number] [place] [address] [place] Eosinophils (Bld) [#/Vol] 0.24 10*3/uL Normal <0.46 [facility] Comment on above: Order Comment: Speci men Type: BLOOD SPECIMENOrdering Facility: [facility] Address: [address] [place] [address] Performed By: #### 5 7021-8 ####[facility] MILLWNCLIA [id number] [place] [address] [place] Eosinophils/100 WBC (Bld) 2.4 % Normal [facility] Comment on above: Order Comment: Speci men Type: BLOOD SPECIMENOrdering Facility: [facility] Address: [address] [place] [address] Performed By: #### 5 7021-8 ####[facility] ERSONIA [id number] [place] [address] [place] Erythrocyte distribution width (RBC) [Ratio] 14.0 % Normal 11.5-15.0 [facility] Comment on above: Order Comment: Speci men Type: BLOOD SPECIMENOrdering Facility: [facility] Address: [address] [place] [address] Performed By: #### 5 7021-8 ####[facility] ERSONIA [id number] [place] [address] [place] Hematocrit (Bld) [Volume fraction] 41.8 % Normal 36.0-46.0 [facility] Comment on above: Order Comment: Speci men Type: BLOOD SPECIMENOrdering Facility: [facility] Address: [address] [place] [address] Performed By: #### 5 7021-8 ####[facility] ERNCALMITA [id number] [place] [address] [place] Hemoglobin (Bld) [Mass/Vol] 13.9 g/dL Normal 11.5-15.5 [facility] Comment on above: Order Comment: Speci men Type: BLOOD SPECIMENOrdering Facility: [facility] Address: [address] [place] [address] Performed By: #### 5 7021-8 ####[facility] ERNCLIA [id number] [place] [address] [place] Immature granulocytes (Bld) [#/Vol] 0.03 10*3/uL Normal <0.10 [facility] Comment on above: Order Comment: Speci men Type: BLOOD SPECIMENOrdering Facility: [facility] Address: [address] [place] [address] Performed By: #### 5 7021-8 ####[facility] MICAHBrunaNCMILVIA [id number] [place] [address] [place] Immature granulocytes/100 WBC (Bld) 0.3 % Normal [facility] Comment on above: Order Comment: Speci men Type: BLOOD SPECIMENOrdering Facility: [facility] Address: [address] [place] [address] Performed By: #### 5 7021-8 ####[facility] ERANNAOG[facility] [id number] [place] [address] [place] Lymphocytes (Bld) [#/Vol] 2.44 10*3/uL Normal 1.00-4.00 [facility] Comment on above: Order Comment: Speci men Type: BLOOD SPECIMENOrdering Facility: [facility] Address: [address] [place] [address] Performed By: #### 5 7021-8 ####[facility] [id number] [place] [address] [place] Lymphocytes/100 WBC (Bld) 24.0 % Normal [facility] Comment on above: Order Comment: Speci men Type: BLOOD SPECIMENOrdering Facility: [facility] Address: [address] [place] [address] Performed By: #### 5 7021-8 ####[facility]ITAL[facility] [id number] [place] [address] [place] MCH (RBC) [Entitic mass] 28.2 pg Normal 26.0-34.0 [facility] Comment on above: Order Comment: Speci men Type: BLOOD SPECIMENOrdering Facility: [facility] Address: [address] [place] [address] Performed By: #### 5 7021-8 ####[facility] SPRINGSBrunaNCLIA [id number] [place] [address] [place] MCHC (RBC) [Mass/Vol] 33.3 g/dL Normal 30.5-36.0 [facility] Comment on above: Order Comment: Speci men Type: BLOOD SPECIMENOrdering Facility: [facility] Address: [address] [place] [address] Performed By: #### 5 7021-8 ####[facility] ERNCA [id number] [place] [address] [place] MCV (RBC) [Entitic vol] 84.8 fL Normal 80.0-100.0 [facility] Comment on above: Order Comment: Speci men Type: BLOOD SPECIMENOrdering Facility: [facility] Address: [address] [place] [address] Performed By: #### 5 7021-8 ####[facility] [id number] [place] [address] [place] Monocytes (Bld) [#/Vol] 0.59 10*3/uL Normal <0.87 [facility] Comment on above: Order Comment: Speci men Type: BLOOD SPECIMENOrdering Facility: [facility] Address: [address] [place] [address] Performed By: #### 5 7021-8 ####[facility] [id number] [address] [place] Monocytes/100 WBC (Bld) 5.8 % Normal [facility] Comment on above: Order Comment: Speci men Type: BLOOD SPECIMENOrdering Facility: [facility] Address: [address] [place] [address] Performed By: #### 5 7021-8 ####[facility] ERNCOGDEN [facility] [id number] [place] [address] [place] Neutrophils (Bld) [#/Vol] 6.81 10*3/uL Normal 1.45-7.50 [facility] Comment on above: Order Comment: Speci men Type: BLOOD SPECIMENOrdering Facility: [facility] Address: [address] [place] [address] Performed By: #### 5 7021-8 ####[facility] [id number] [place] [address] [place] Neutrophils/100 WBC (Bld) 66.8 % Normal [facility] Comment on above: Order Comment: Speci men Type: BLOOD SPECIMENOrdering Facility: [facility] Address: [address] [place] [address] Performed By: #### 5 7021-8 ####[facility] ERNCOGD[facility] [id number] [place] [address] [place] Nucleated RBC (Bld) [#/Vol] 10*3/uL Normal <0.01 [facility] Comment on above: Order Comment: Speci men Type: BLOOD SPECIMENOrdering Facility: [facility] Address: [address] [place] [address] Performed By: #### 5 7021-8 ####[facility] ERNCLIA [id number] [place] [address] [place] Nucleated RBC/100 WBC (Bld) [Ratio] 0.0 /100 WBC Normal [facility] Comment on above: Order Comment: Speci men Type: BLOOD SPECIMENOrdering Facility: [facility] Address: [address] [place] [address] Performed By: #### 5 7021-8 ####[facility] ERNCLI [id number] [place] [address] [place] Platelet mean volume (Bld) [Entitic vol] 8.5 fL Low 9.0-12.7 [facility] Comment on above: Order Comment: Speci men Type: BLOOD SPECIMENOrdering Facility: [facility] Address: [address] [place] [address] Performed By: #### 5 7021-8 ####[facility] LEAHWNCLIA [id number] [place] [address] [place] Platelets (Bld) [#/Vol] 304 10*3/uL Normal 150-400 [facility] Comment on above: Order Comment: Speci men Type: BLOOD SPECIMENOrdering Facility: [facility] Address: [address] [place] [address] Performed By: #### 5 7021-8 ####[facility] ERNCLIA [id number] [place] [address] [place] RBC (Bld) [#/Vol] 4.93 10*6/uL Normal 3.90-5.20 [facility] Comment on above: Order Comment: Speci men Type: BLOOD SPECIMENOrdering Facility: [facility] Address: [address] [place] [address] Performed By: #### 5 7021-8 ####[facility] ERNCLIA [id number] [place] [address] [place] WBC (Bld) [#/Vol] 10.18 10*3/uL Normal 3.70-11.00 [facility] Comment on above: Order Comment: Speci men Type: BLOOD SPECIMENOrdering Facility: [facility] Address: [address] [place] [address] Performed By: #### 5 7021-8 ####[facility] ERNCLIA [id number] [place] [address] [place] HBV surface Ag Ser Qlon 12-2 HBV surface Ag Ql (S) Negative Normal Negative [facility] Comment on above: Order Comment: Speci men Type: BLOOD SPECIMENOrdering Facility: [facility] Address: [address] [place] [address] Performed By: #### 5 195-3, 69335-7, 45772-9 ####[facility] LABCLIA [id number] [place] [address] [place] HCV Ab Ser Qlon 02-24-2024 HCV Ab Ql (S) Negative Normal Negative [facility] Comment on above: Order Comment: Speci men Type: BLOOD SPECIMENOrdering Facility: [facility] Address: [address] [place] [address] Result Comment: The result suggests no evidence of active infection with Hepatitis C virus. Should recent infection be suspected, repeat testing may be considered 4-6 weeks after this draw. Performed By: #### 1 6128-1 ####[facility] LABCLIA [id number] [place] [address] [place] HIV 1+2 Ab IA Qlon HIV 1 and 2 Ab IA.rapid Nom (S/P/Bld) Normal [facility] Comment on above: Order Comment: Speci men Type: BLOOD SPECIMENOrdering Facility: [facility] Address: [address] [place] [address] Result Comment: Test not indicated. Performed By: #### 5 195-3, 31787-0, 58885-8 ####[facility] LABCLIA [id number] [place] [address] [place] HIV 1+2 Ab+HIV1 p24 Ag IA Ql Non-Reactive Normal Nonreactive [facility] Comment on above: Order Comment: Speci men Type: BLOOD SPECIMENOrdering Facility: [facility] Address: [address] [place] [address] Performed By: #### 5 195-3, 90108-8, 31315-3 ####[facility] LABCLIA [id number] [place] [address] [place] HIV immunoassay testing algorithm interpretation (S/P/Bld) [Interp] Normal [facility] Comment on above: Order Comment: Speci men Type: BLOOD SPECIMENOrdering Facility: [facility] Address: [address] [place] [address] Result Comment: No e vidence of HIV-1 [...] or diagnoses. Performed By: #### 5 195-3, 16427-1, 05924-8 ####[facility] LABCLIA [id number] [place] [address] [place] HbA1c (Bld)on 02-24-2024 Average glucose Estimated from glycated hemoglobin (Bld) [Mass/Vol] 94 mg/dL Normal [facility] Comment on above: Order Comment: Speci men Type: SWAB Ordering [facility]: [facility] Address: [address] [place] [address] Result Comment: eAG: (Estimated average glucose) is a calculated value from HgbA1c and is automobile sales representative of the average blood glucose level in the last 2-3 month period. Performed By: #### C VTV, BVAMP #### [facility] LAB CLIA [id number] [address] [place] [address] [place] HbA1c (Bld) [Mass fraction] 4.9 % Normal 4.3-5.6 [facility] Comment on above: Order Comment: Speci men Type: SWAB [facility]ing [facility]: [facility] Address: [address] [place] [address] Result Comment: Amer [place] Diabetes Association guidelines indicate that patients with HgbA1c in the range 5.7-6.4% are at increased risk for development of diabetes, and intervention by lifestyle modification may be beneficial. HgbA1c greater or equal to 6.5% is considered diagnostic of diabetes. Performed By: #### C VTV, BVAMP #### [facility] CLIA [id number] [address] [place] [address] [place] RUBELLA IGG ANTIBODYon 02-23 RUBELLA IGG AB, QUAL Positive Normal Positive [facility] Comment on above: Order Comment: Speci men Type: BLOOD SPECIMENOrdering Facility: [facility] Address: [address] [place] [address] Result Comment: The result suggests recent or past exposure to Rubella virus or history of Rubella vaccination. Positive result may also be seen due to presence of passively-transferred antibodies. Please correlate with patient's history. Performed By: #### R UBIGG ####[facility] LABCLIA [id number] [place] [address] [place] Reagin and Treponema pallidu m IgG and IgM [Interp]on 02-24-2024 T. pallidum IgG+IgM IA Ql (S) Non-Reactive Normal Nonreactive [facility] Comment on above: Order Comment: Speci [facility] Type: BLOOD SPECIMENOrdering Facility: [facility] Address: [address] [place] [address] Performed By: #### 5 195-3, 90059-8, 09238-2 ####[facility] LABCLIA [id number] [place] [address] [place] Reagin+T pallidum IgG+IgM Se rPl-Impon 02-24-2024 Reagin and Treponema pallidum IgG and IgM [Interp] Cannot exclude recent Treponemal infection if specimen collected within 7-10 days after appearance of suspect lesions or 2-3 weeks after an exposure. Clinical correlation is required. Normal [facility] Comment on above: Order Comment: Speci men Type: BLOOD SPECIMENOrdering Facility: [facility] Address: [address] [place] [address] Performed By: #### 5 195-3, 94360-0, 87279-7 ####[facility] LABCLIA [id number] [place] [address] [place] TYPE + SCREEN PRENATALon ABO O Normal [facility] Comment on above: Order Comment: Speci men Type: SWAB [facility]ing [facility] Address: [address] [place] [address] Performed By: #### C VTV, BVAMP #### [facility] CLIA [id number] [address] [place] [address] [place] Rh Nom (Bld) Positive Normal [facility] Comment on above: Order Comment: Speci men Type: SWAB [facility]ing [facility]: [facility] Address: [address] [place] [address] Performed By: #### C VTV, BVAMP #### [facility] CLIA [id number] [address] [place] [address] [place] TYPE AND SCREEN EXPIRATION 02/27/2024 23:59 Normal [facility] Comment on above: Order Comment: Speci men Type: SWAB [facility]ing Facility: [facility] Address: [address] [place] [address] Performed By: #### C VTV, BVAMP #### [facility] CLIA [id number] [address] [place] [address] [place] Urgent Care Visit Reporton 1 04-26-2023 Urgent Care Visit Report [facility] [address], [address] [place] [address] OFFICE VISIT Date of Service: 02/24/24 MR#: [id number] Acct: [id number] Name: AMIRAH WOODARD Rep #: [id number] 40 : 2005 Provider: CATRACHO Jacobo Age/Sex: 18/F Location: [facility] Status: Signed Intake Vital Signs 11/14/23 09:57 Height 5 ft 3 in Intake Visit Reasons: [facility]/ [facility] Chief Complaint: Preemployment physical Accompanied by: Self Allergies No Known Allergies Allergy (Verified 02/24/24 12:06) Medications ???Medication ???Instructions ???Recorded ???Confirmed ???Type Lactobacillus 25 billion cap PO 10/04/23 11/15/23 History cell-Bifido 25 billion hfqa-NWQ-netgw capsule albuterol sulfate 90 mcg/actuation inhalation 10/04/23 [...] Chico Gomez Signature: Date (if applicable) CC: [facility] Rodrick 02-23-2024 MATTI Telephone (Response AnalyticsOBA) AMIRAH WOODARD ([id number]) 3 F Date Time Provider Department 02/23/24 [...] Date Reviewed: 02/21/2024 Reviewed by: Nilda Stiles APRN.GLASS SCULLION - Fully Assessed Reason for Visit: PRAF [...] Status:Closed by PAULINE AU on 02/23/24 Normal [facility] BACTERIAL VAGINOSIS NAATon 1 2- Lactobacillus crispatus+gasseri+imelda enii + Gardnerella vaginalis + Atopobium vaginae rRNA MEG+probe Ql (Vag fld) Not detected Normal Not detected [facility] Comment on above: Order Comment: Speci men Type: SWABOrdering Facility: [facility] Address: [address] [place] [address] Performed By: #### Cherelle VAMP, 34721-5 ####[facility] LABCLIA [id number] [place] [address] [place] Bacteria Ur Culton [...] technique or straight catheterization for???urine???collecti on. Normal [facility] Comment on above: Performed By: #### 6 30-4 ####[facility] LABCLIA [id number] [place] [address] [place] C. trachomatis+N. gonorrhoea e DNA MEG+probe Ql (Unsp spec)on 02-21-2024 C. trachomatis rRNA MEG+probe Ql (Unsp spec) Not detected Normal Not detected [facility] Comment on above: Order Comment: Speci men Type: SWABOrdering Facility: [facility] Address: [address] [place] [address] Performed By: #### Cherelle VAMP, 17082-3 ####[facility] LABCLIA [id number] [place] [address] [place] N. gonorrhoeae rRNA MEG+probe Ql (Unsp spec) Not detected Normal Not detected [facility] Comment on above: Order Comment: Speci men Type: SWABOrdering Facility: [facility] Address: [address] [place] [address] Performed By: #### Cherelle VAMP, 42234-2 ####[facility] LABCLIA [id number] [place] [address] [place] FRANCO/TRICHOMONAS NAATon 1 2-17-2024 C. glabrata RNA MEG+probe Ql (Vag fld) Not detected Normal Not detected [facility] Comment on above: Order Comment: Speci men Type: SWAB Ordering Facility: [facility] Address: [address] [place] [address] Performed By: #### C VTV, BVAMP #### [facility] LAB CLIA [id number] [address] [place] [address] [place] Franco sp DNA MEG+probe Ql (Vag fld) Not detected Normal Not detected [facility] Comment on above: Order Comment: Speci men Type: SWAB Ordering Facility: [facility] Address: [address] [place] [address] Result Comment: The Franco species group target includes C. albicans, C. tropicalis, C. parapsilosis, and C. dubliniensis. Performed By: #### C VTV, BVAMP #### [facility] LAB CLIA [id number] [address] [place] [address] [place] T. vaginalis DNA MEG+probe Ql (Unsp spec) Not detected Normal Not detected [facility] Comment on above: Order Comment: Speci men Type: SWAB [facility]ing [facility]: [facility] Address: [address] [place] [address] Performed By: #### C VTV, BVAMP #### [facility] CLIA [id number] [address] [place] [address] [place] CNCOon 02-21-2024 CNCO Letter Text Normal [facility] POC ENERGY OPERATIONS VICE PRESIDENT ULTRASOUNDon 02-21-20 24 Indication Confirmation of intrauterine [...] Read By: Nilda Stiles CNP MATERNAL MEDICINE [facility] Radiology Study observation (narrative) [facility] CNCOon 02-01-2024 CNCO Letter Text Normal [facility] CNOVon 01-30-2024 CNOV Office Visit (OBGYWM ) AMIRAH WOODARD ([id number]) 3 F Date Time Provider Department 01/30/24 [...] L0 SAB0 IAB0 Ectopic0 Multiple0 Live Births0 Rounding Machine Operator History LMP: 12/09/2023 (Exact Date), Having periods Age at Menarche: Age at First : Age at Menopause: Rounding Machine Operator History Comments: Sexual Activity: Yes; Male Contraception: [...] (FLONASE) 50 mcg/actuation nasal spray Use 1 [place] in each nostril once daily. loratadine (CLARITIN) [...] result positive [Z32.01] Order(s):UA DIP,URINE HCG (POC) [[id number]] Order #: [id number] #:[id number] Prescriptions as of 01/30/2024 - vit no.124/iron/folic [...] (FLONASE) 50 mcg/actuation nasal spray Use 1 [place] in each nostril once daily. - loratadine [...] NOB. Follow (more content not included)... Normal [facility] UA DIP,URINE HCG (POC)on Beta HCG ( test) Ql (U) Positive Abnormal Negative [facility] Comment on above: Location:[facility], [address], [place], [address] Interpretation and review of laboratory results Abnormal [facility] Larriman (POCT) Internal QC OK [facility] Location:[facility], [address], [place], [address] [facility] Telephone (OBGYWM) AMIRAH WOODARD ([id number]) 3 F Date Time Provider Department 12/15/23 [...] Pharmacy Information Pharmacy Address Telephone [facility] [address] [place] [address] Allergies As of Date: 12/15/2023 [...] (FLONASE) 50 mcg/actuation nasal spray Use 1 [place] in each nostril once daily. - loratadine [...] Status:Closed by VIVIAN ADAMS on 12/15/23 Normal [facility] BACTERIAL VAGINOSIS NAATon 1 Lactobacillus crispatus+gasseri+imelda enii + Gardnerella vaginalis + Atopobium vaginae rRNA MEG+probe Ql (Vag fld) Negative Normal Negative for bacterial vaginosis [facility] Comment on above: Order Comment: Speci men Type: SWAB Ordering [facility]: [facility] Address: [address] [place] [address] Performed By: #### C VTV, BVAMP #### [facility] CLIA [id number] [address] [place] [address] [place] FRANCO/TRICHOMONAS NAATon 1 C. glabrata RNA MEG+probe Ql (Vag fld) Negative Normal Negative for Franco glabrata [facility] Comment on above: Order Comment: Speci men Type: SWAB Ordering Facility: [facility] Address: [address] [place] [address] Performed By: #### C VTV, BVAMP #### [facility] CLIA [id number] [address] [place] [address] [place] Franco sp DNA MEG+probe Ql (Vag fld) Negative Normal Negative for Franco species [facility] Comment on above: Order Comment: Speci men Type: SWAB Ordering Facility: [facility] Address: [address] [place] [address] Performed By: #### C VTV, BVAMP #### [facility] CLIA [id number] [address] [place] [address] [place] T. vaginalis DNA MEG+probe Ql (Unsp spec) Negative Normal Negative for Trichomonas vaginalis by amplification [facility] Comment on above: Order Comment: Speci men Type: SWAB Ordering Facility: [facility] Address: [address] [place] [address] Performed By: #### C VTV, BVAMP #### [facility] CLIA [id number] [address] [place] [address] [place] CNOVon 12-12-2023 CNOV Office Visit (OBGYWM ) AMIRAH WOODARD ([id number]) 3 F Date Time Provider Department 12/12/23 3:45 PM NILDA STILES OBGYWM During your visit today, we recorded the following information about you: Blood pressure Weight Last Period 122/66 84.8 kg 12/09/23 Nilda Stiles APRN.GLASS SCULLION 12/12/2023 4:43 PM Signed Patient declined deliverer outside. Amirah Woodard is a 18 year old [...] L0 SAB0 IAB0 Ectopic0 Multiple0 Live Births0 Rounding Machine Operator History LMP: 10/08/2023 (Exact Date), Having periods Age at Menarche: Age at First : Age at Menopause: Rounding Machine Operator History Comments: Sexual Activity: Yes; Male Contraception: [...] (FLONASE) 50 mcg/actuation nasal spray Use 1 [place] in each nostril once daily. loratadine (CLARITIN) [...] discussed with the Patient or Patient's Authorized Client Solutions Specialist. As applicable, any other physician, advance practice provider, medical student, or other health professional student that will be observing or involved in the sensitive examination for educational or training purposes was discussed with the Patient or Authorized Client Solutions Specialist. The Patient or Authorized Client Solutions Specialist has agreed to proceed with the sensitive examination. (Sensitive examination includes inspection and/or palpation of the breasts, pelvis, prostate and anorectal regions). EXAM: LMP 10/08/2023 GENERAL: pleasant, female in no apparent distress HEENT: Normocephalic, atraumatic, mucus membranes moist, and no lesions CHEST: Normal inspiratory effort PELVIC: external genitalia normal, normal Bartholin's glands, urethra, Navarro's glands, no vulvar lesions, no cervical lesions, [...] notify patient of test results. Nilda Stiles APRN.GLASS SCULLION Medical Decision Making: Problems: Moderate: New problem with uncertain prognosis Data: U (more content not included)... Normal [facility] T3Free SerPl-mCncon 12-12-19 24 Free T3 [Mass/Vol] 3.2 pg/mL Normal 2.3-4.1 [facility] Comment on above: Order Comment: Speci men Type: BLOOD SPECIMENOrdering Facility: [facility] Address: [address] [place] [address] Performed By: #### 3 051-0, 7, 3 ####[facility] LABCLIA [id number] [place] [address] [place] T4 Free SerPl-mCncon 024 Free T4 [Mass/Vol] 1.2 ng/dL Normal 0.9-1.7 [facility] Comment on above: Order Comment: Speci men Type: BLOOD SPECIMENOrdering Facility: [facility] Address: [address] [place] [address] Performed By: #### 3 051-0, 3023-7, 3 ####[facility] LABCLIA [id number] [place] [address] [place] THYROID PEROXIDASE ANTIBODYo n 12-12-2023 TPO Ab Qn [IU]/mL Normal <5.6 [facility] Comment on above: Order Comment: Speci men Type: BLOOD SPECIMENOrdering Facility: [facility] Address: [address] [place] [address] Result Comment: Thyr oid Peroxidase Antibody test is used as an aid in diagnosis of autoimmune thyroid disease. Clinical correlation is required. Performed By: #### M ICRO ####[facility] LABCLIA [id number] [place] [address] [place] TSH SerPl-aCncon 12-12-2023 TSH Qn 1.050 m[IU]/L Normal 0.510-4.300 [facility] Comment on above: Order Comment: Speci men Type: BLOOD SPECIMENOrdering Facility: [facility] Address: [address] [place] [address] Result Comment: If t he patient is , TSH reference range varies by gestational period: First Trimester (weeks 9-12): 0.180-2.990 mIU/L Second Trimester: 0.110-3.980 mIU/L Third Trimester: 0.480-4.710 mIU/L Dayo Wagner, et al. A Practical Approach for the Verifications and Determination of Site- and Trimester-Specific Reference Intervals for Thyroid Function tests in . Thyroid, 2019:29:3:412-420. Edmar E, et al. 2017 Guidelines of the [place] Thyroid Association for the Diagnosis and Management of Thyroid Disease during and the . Thyroid, 2017:27:3:315-389. Reference ranges were not locally established for this patient's age group. The normal values are based on the following source: Yarelis W, Chante V. Reference Ranges for Adults and Children: Pre-analytical Considerations. [facility] Performed By: #### 3 051-0, 3024-7, 3016-3 ####[facility] LABCLIA [id number] [place] [address] [place] UROGENITAL UREAPLASMA AND MY COPLASMA SPECIES BY PCR, FOR GENITAL, RECTAL, URINE SAMPLESon 12-12-2023 M GENITALIUM PCR Not detected Normal [facility] Comment on above: Order Comment: Speci men Type: SWABOrdering Facility: [facility] Address: [address] [place] [address] Result Comment: INTE RPRETIVE INFORMATION: Urogenital Ureaplasma and Mycoplasma Species by PCR A negative result does not rule out the presence of PCR inhibitors in the patient specimen or test-specific nucleic acid in concentrations below the level of detection by this test. This test was developed and its performance characteristics determined by [employer]. It has not been cleared or approved by the [place] Food and Drug Administration. This test was performed in a CLIA certified laboratory and is intended for clinical purposes. Performed By: [facility] [address] [place] [address] Welding Supervisor: Jonathan Guzman MD, PhD [facility] Number: [id number] Performed By: #### U RMPCR ####[facility] [id number] [place] [address] MYCOPLAS HOMINIS PCR Not detected Normal [facility] Comment on above: Order Comment: Speci men Type: SWABOrdering Facility: [facility] Address: [address] [place] [address] Performed By: #### U RMPCR ####[facility] [id number] [place] [address] UR PARVUM PCR Detected Abnormal [facility] Comment on above: Order Comment: Speci men Type: SWABOrdering Facility: [facility] Address: [address] [place] [address] Performed By: #### U RMPCR ####[facility] [id number] [place] [address] UR UREALYTICUM PCR Not detected Normal [facility] Comment on above: Order Comment: Speci men Type: SWABOrdering Facility: [facility] Address: [address] [place] [address] Performed By: #### U RMPCR ####[facility] [id number] [place] [address] UR/MYCO SOURCE Genital Normal [facility] Comment on above: Order Comment: Speci men Type: SWABOrdering Facility: [facility] Address: [address] [place] [address] Performed By: #### U RMPCR ####[facility] [id number] [place] [address] Ankle min 3 Viewson 11-15-19 Ankle min 3 Views [facility] [address] [place] [address] Ankle min 3 Views MR#: [id number] Acct: [id number] Name: AMIRAH WOODARD Rep #: [id number] : 2005 F 18 From: Bruno Méndez MD PCP: Dr. Que Chavez MD Status: DEP AMB Study: Ankle min 3 Views Date of Exam: 11/15/23 Exam# [id number] Ordering Dr: Antwon Miranda MD [id number] STUDY: X-RAY - LEFT ANKLE REASON FOR [...] overlying the lateral malleolus. Electronically Signed: Bruno Méndze MD at 15:51 EDT Reading Location ID and State: [address] [place] [address] , Service support , CC: Dr. Que Chavez MD; Dr. Antwon Miranda MD [employer]: Signed Normal [facility] Orthopedic Visit Reporton Orthopedic Visit Report [facility] [address] [place] [address] OFFICE VISIT Date of Service: 11/15/23 MR#: [id number] Acct: [id number] Name: AMIRAH WOODARD Rep #: [id number] : 2005 Provider: Dr. Antwon sebastian MD Age/Sex: 18/F Location: [facility].JAMA[facility] Status: Signed Intake Vital Signs 11/14/23 09:57 Height 5 ft 3 in Intake Visit Reasons: LEFT LEG Chief Complaint: left ankle Accompanied by: Self Is patient in pain?: No Allergies No Known Allergies Allergy (Verified 11/15/23 15:06) Medications ???Medication ???Instructions ???Recorded ???Confirmed ???Type Lactobacillus 25 billion cap PO 10/04/23 11/15/23 History cell-Bifido 25 billion cxkb-FHY-fekvh capsule albuterol sulfate 90 mcg/actuation inhalation 10/04/23 [...] Cosigner Signature: Date (if applicable) CC: Normal [facility] CNOVon 10-31-2023 CNOV Office Visit (PEDSWS ) AMIRAH WOODARD ([id number]) 3 F Date Time Provider Department 10/31/23 [...] button - completed 7 day course [employer], [employer] advised in office visit with them Allergy/Immunology [...] (FLONASE) 50 mcg/actuation nasal spray Use 1 [place] in each nostril once daily. loratadine (CLARITIN) [...] satisfactory Screening tools reviewed and discussed with patient/jqbbza-MOJ-2 and Social Determinants of Health. Please see Patient Entered Data. SDOH: Food Insecurity: No F (more content not included)... Normal [facility] Ankle min 3 Viewson 10-18-19 Ankle min 3 Views [facility] [address] [place] [address] Ankle min 3 Views MR#: [id number] Acct: [id number] Name: AMIRAH WOODARD Rep #: [id number] : 2005 F 18 From: Feliciano narayan MD PCP: Dr. Que Chavez MD Status: DEP AMB Study: Ankle min 3 Views Date of Exam: 10/18/23 Exam# [id number] Ordering Dr: Antwon Miranda MD [id number] INDICATION: fu EXAMINATION/TECHNIQUE: X-RAY - LEFT XR [...] Que Chavez MD; Dr. Antwon Miranda MD [employer]: Signed Normal [facility] Orthopedic Visit Reporton Orthopedic Visit Report [facility] [address] [place] [address] [address] [place] [address] OFFICE VISIT Date of Service: 10/18/23 MR#: [id number] Acct: [id number] Name: AMIRAH WOODARD Rep #: [id number] : 2005 Provider: Dr. Antwon sebastian MD Age/Sex: 18/F Location: [facility].JAMAAL Status: Signed Intake Vital Signs 10/03/23 08:06 Height 5 ft 3 in Intake Visit Reasons: LEFT LEG Accompanied by: Mother Is patient in pain?: No Allergies No Known Allergies Allergy (Verified 10/18/23 10:05) Medications ???Medication ???Instructions ???Recorded ???Confirmed ???Type Lactobacillus 25 billion cap PO 10/04/23 10/18/23 History cell-Bifido 25 billion lxvw-SWK-tlnzu capsule albuterol sulfate 90 mcg/actuation inhalation 10/04/23 [...] Cosigner Signature: Date (if applicable) CC: Normal [facility] STREP A MOLECULAR (POC)on Procedural Control Valid [facility] Strep A (POCT) Negative Negative [facility] BACTERIAL VAGINOSIS NAATon 0 07-12-2023 Interpretation and review of laboratory results Abnormal [facility] Lactobacillus crispatus+gasseri+imelda enii + Gardnerella vaginalis + Atopobium vaginae rRNA MEG+probe Ql (Vag fld) Positive Abnormal Negative for bacterial vaginosis [facility] FRANCO/TRICHOMONAS NAATon 0 07-12-2023 C. glabrata RNA MEG+probe Ql (Vag fld) Negative Negative for Franco glabrata [facility] Franco sp DNA MEG+probe Ql (Vag fld) Negative Negative for Franco species [facility] Interpretation and review of laboratory results Normal [facility] T. vaginalis DNA MEG+probe Ql (Unsp spec) Negative Negative for Trichomonas vaginalis by amplification [facility] US Pelvis transvaginalon [facility] BACTERIAL VAGINOSIS NAATon 0 05-04-2023 Lactobacillus crispatus+gasseri+imelda enii + Gardnerella vaginalis + Atopobium vaginae rRNA MEG+probe Ql (Vag fld) Negative Negative for bacterial vaginosis [facility] C. trachomatis+N. gonorrhoea e DNA MEG+probe Ql (Unsp spec)on 05-04-2023 C. trachomatis rRNA MEG+probe Ql (Unsp spec) Negative Negative for Chlamydia trachomatis by amplificaton [facility] N. gonorrhoeae rRNA MEG+probe Ql (Unsp spec) Negative Negative for Neisseria gonorrhoeae by amplification [facility] FRANCO/TRICHOMONAS NAATon 0 05-04-2023 C. glabrata RNA MEG+probe Ql (Vag fld) Negative Negative for Franco glabrata [facility] Franco sp DNA MEG+probe Ql (Vag fld) Negative Negative for Franco species [facility] T. vaginalis DNA MEG+probe Ql (Unsp spec) Negative Negative for Trichomonas vaginalis by amplification [facility] HCG QUAL UR B/Oon 07-15-2022 status Negative neg - pos [facility] Quality Check Yes [facility] Vital Signs Date Time Vital Sign Value Performing Clinician Facility 10-13-2024 01:46-0400 Heart rate 90 /min Dr. Ruiz Vega DO Work Phone: [facility] 10-13-2024 01:46-0400 SaO2% (BldA) [Mass fraction] 97 % Dr. Ruiz Vega DO Work Phone: [facility] 10-12-2024 23:44-0400 Diastolic blood pressure 82 mm[Hg] Dr. Ruiz Vega DO Work Phone: [facility] 10-12-2024 23:44-0400 Systolic blood pressure 122 mm[Hg] Dr. Ruiz Vega DO Work Phone: [facility] 10-12-2024 23:43-0400 Body temperature 97.7 [degF] Dr. Ruiz Vega DO Work Phone: [facility] 10-12-2024 23:43-0400 Respiratory rate 16 /min Dr. Ruiz Vega DO Work Phone: [facility] 10-12-2024 23:35-0400 Body height 162.[address] Ruiz Vega DO Work Phone: [facility] 10-12-2024 23:35-0400 Body mass index (BMI) [Ratio] 38.6 kg/m2 Dr. Ruiz Vega DO Work Phone: [facility] 10-12-2024 23:35-0400 Body weight [address] Ruiz Vega DO Work Phone: [facility] 10-05-2024 16:20-0400 Body mass index (BMI) [Ratio] 37.85 kg/m2 Delfina Watson APRN.CNM Work Phone: [facility] 10-05-2024 16:20-0400 Body weight 103.06 kg Delfina Watson APRN.CNM Work Phone: [facility] 10-05-2024 16:20-0400 Diastolic blood pressure 74 mm[Hg] Delfina Watson APRN.CNM Work Phone: [facility] 10-05-2024 16:20-0400 Systolic blood pressure 110 mm[Hg] Delfina Watson APRN.CNM Work Phone: [facility] 09-25-2024 14:06-0400 Body mass index (BMI) [Ratio] 36.99 kg/m2 Janelle Marin MD Work Phone: [facility] 09-25-2024 14:06-0400 Body weight 100.7 kg Janelle Marin MD Work Phone: [facility] 09-25-2024 14:06-0400 Diastolic blood pressure 70 mm[Hg] Janelle Marin MD Work Phone: [facility] 09-25-2024 14:06-0400 Systolic blood pressure 110 mm[Hg] Janelle Marin MD Work Phone: [facility] 09-18-2024 13:26-0400 Body mass index (BMI) [Ratio] 37.02 kg/m2 Alo Thompson MD Work Phone: [facility] 09-18-2024 13:26-0400 Body weight 100.79 kg Alo Thompson MD Work Phone: [facility] 09-18-2024 13:26-0400 Diastolic blood pressure 72 mm[Hg] Alo Thompson MD Work Phone: [facility] 09-18-2024 13:26-0400 Systolic blood pressure 110 mm[Hg] Alo Thompson MD Work Phone: [facility] 09-12-2024 10:33-0400 Body mass index (BMI) [Ratio] 35.99 kg/m2 Castillo Mckeon MD Work Phone: [facility] 09-12-2024 10:33-0400 Body weight 97.98 kg Castillo Mckeon MD Work Phone: [facility] 09-12-2024 10:33-0400 Diastolic blood pressure 82 mm[Hg] Castillo Mckeon MD Work Phone: [facility] 09-12-2024 10:33-0400 Systolic blood pressure 124 mm[Hg] Castillo Mckeon MD Work Phone: [facility] 09-04-2024 12:22-0400 Body temperature 98 [degF] Dr. Ruiz Vega DO Work Phone: 6(320)820-[address] [place] [address] 09-04-2024 12:22-0400 Diastolic blood pressure 75 mm[Hg] Dr. Ruiz Vega DO Work Phone: 5(921)141-485086 [place] [address] 09-04-2024 12:22-0400 Heart rate 99 /min Dr. Ruiz Vega DO Work Phone: 6(882)952-432385 [place] [address] 09-04-2024 12:22-0400 Respiratory rate 17 /min Dr. Ruiz Vega DO Work Phone: 0(452)150-519086 [place] [address] 09-04-2024 12:22-0400 SaO2% (BldA) [Mass fraction] 94 % Dr. Ruiz Vega DO Work Phone: 8(517)914-207286 [place] [address] 09-04-2024 12:22-0400 Systolic blood pressure 115 mm[Hg] Dr. Ruiz Vega DO Work Phone: [phone] [place] [address] 09-04-2024 10:11-0400 Body height 162.[address] Ruiz Vega DO Work Phone: 5(491)[phone] [place] [address] 09-04-2024 10:11-0400 Body mass index (BMI) [Ratio] 37.1 kg/m2 Dr. Ruiz Vega DO Work Phone: 4(191)[phone] [place] [address] 09-04-2024 10:11-0400 Body weight 98.[address] Ruiz Vega DO Work Phone: 5(150)[phone] [place] [address] 09-04-2024 09:32-0400 Body mass index (BMI) [Ratio] 35.65 kg/m2 Janelle Marin MD Work Phone: [facility] 09-04-2024 09:32-0400 Body weight 97.07 kg Janelle Marin MD Work Phone: [facility] 09-04-2024 09:32-0400 Diastolic blood pressure 76 mm[Hg] Janelle Marin MD Work Phone: [facility] 09-04-2024 09:32-0400 Heart rate 126 /min Janelle Marin MD Work Phone: [facility] 09-04-2024 09:32-0400 SaO2% (BldA) [Mass fraction] 98 % Janelle Marin MD Work Phone: [facility] 09-04-2024 09:32-0400 Systolic blood pressure 128 mm[Hg] Janelle Marin MD Work Phone: [facility] 08-30-2024 14:52-0400 Body mass index (BMI) [Ratio] 36.15 kg/m2 La Plotts HEEL WASHER STRINGING MACHINE OPERATOR.CNM Work Phone: [facility] 08-30-2024 14:52-0400 Body weight 98.43 kg La Plotts HEEL WASHER STRINGING MACHINE OPERATOR.CNM Work Phone: [facility] 08-30-2024 14:52-0400 Diastolic blood pressure 68 mm[Hg] La Plotts HEEL WASHER STRINGING MACHINE OPERATOR.CNM Work Phone: [facility] 08-30-2024 14:52-0400 Systolic blood pressure 120 mm[Hg] La Plotts HEEL WASHER STRINGING MACHINE OPERATOR.CNM Work Phone: [facility] 08-16-2024 14:23-0400 Body mass index (BMI) [Ratio] 35.49 kg/m2 Lindsey Hawander HEEL WASHER STRINGING MACHINE OPERATOR.[employer]ASS [employer] Work Phone: [facility] 08-16-2024 14:23-0400 Body weight 96.62 kg Lindsey Haury HEEL WASHER STRINGING MACHINE OPERATOR.[employer] Work Phone: [facility] 08-16-2024 14:23-0400 Diastolic blood pressure 62 mm[Hg] Lindsey Haury HEEL WASHER STRINGING MACHINE OPERATOR.[employer] Work Phone: [facility] 08-16-2024 14:23-0400 Systolic blood pressure 112 mm[Hg] Lindsey Haury HEEL WASHER STRINGING MACHINE OPERATOR.[employer] Work Phone: [facility] 08-13-2024 09:18-0400 Body height 165 cm Ruiz Vega DO Work Phone: [facility] 08-13-2024 09:18-0400 Body mass index (BMI) [Ratio] 35.15 kg/m2 Ruiz Vega DO Work Phone: [facility] 08-13-2024 09:18-0400 Body temperature 96.4 [degF] Ruiz Vega DO Work Phone: [facility] 08-13-2024 09:18-0400 Body weight 95.71 kg Ruiz Vega DO Work Phone: [facility] 08-13-2024 09:18-0400 Diastolic blood pressure 60 mm[Hg] Ruiz Vega DO Work Phone: [facility] 08-13-2024 09:18-0400 Heart rate 88 /min Ruiz Vega DO Work Phone: [facility] 08-13-2024 09:18-0400 Respiratory rate 16 /min Ruiz Vega DO Work Phone: [facility] 08-13-2024 09:18-0400 Systolic blood pressure 90 mm[Hg] Ruiz Vega DO Work Phone: [facility] 08-01-2024 09:33-0400 Body mass index (BMI) [Ratio] 36.39 kg/m2 Castillo Mckeon MD Work Phone: [facility] 08-01-2024 09:33-0400 Body weight 96.16 kg Castillo Mckeon MD Work Phone: [facility] 08-01-2024 09:33-0400 Diastolic blood pressure 78 mm[Hg] Castillo Mckeon MD Work Phone: [facility] 08-01-2024 09:33-0400 Systolic blood pressure 128 mm[Hg] Castillo Mckoen MD Work Phone: [facility] 07-20-2024 08:32-0400 Body mass index (BMI) [Ratio] 35.36 kg/m2 Lindsey Moreno APRN.[employer] Work Phone: [facility] 07-20-2024 08:32-0400 Body weight 93.44 kg Lindsey Haury HEEL WASHER STRINGING MACHINE OPERATOR.[employer] Work Phone: [facility] 07-20-2024 08:32-0400 Diastolic blood pressure 64 mm[Hg] Lindsey Moreno HEEL WASHER STRINGING MACHINE OPERATOR.[employer] Work Phone: [facility] 07-20-2024 08:32-0400 Systolic blood pressure 118 mm[Hg] Lindsey Moreno HEEL WASHER STRINGING MACHINE OPERATOR.[employer] Work Phone: [facility] 06-21-2024 13:04-0400 Body mass index (BMI) [Ratio] 34.67 kg/m2 La Plotts HEEL WASHER STRINGING MACHINE OPERATOR.CNM Work Phone: [facility] 06-21-2024 13:04-0400 Body weight 91.63 kg La Plotts HEEL WASHER STRINGING MACHINE OPERATOR.CNM Work Phone: [facility] 06-21-2024 13:04-0400 Diastolic blood pressure 62 mm[Hg] La Plotts HEEL WASHER STRINGING MACHINE OPERATOR.CNM Work Phone: [facility] 06-21-2024 13:04-0400 Systolic blood pressure 114 mm[Hg] La Plotts HEEL WASHER STRINGING MACHINE OPERATOR.CNM Work Phone: [facility] 06-19-2024 14:38-0400 Body mass index (BMI) [Ratio] 35.02 kg/m2 Janelle Marin MD Work Phone: [facility] 06-19-2024 14:38-0400 Body weight 92.53 kg Janelle Marin MD Work Phone: [facility] 06-19-2024 14:38-0400 Diastolic blood pressure 60 mm[Hg] Janelle Marin MD Work Phone: [facility] 06-19-2024 14:38-0400 Systolic blood pressure 120 mm[Hg] Janelle Marin MD Work Phone: [facility] 06-06-2024 13:05-0400 Body mass index (BMI) [Ratio] 34.67 kg/m2 La Plotts HEEL WASHER STRINGING MACHINE OPERATOR.CNM Work Phone: [facility] 06-06-2024 13:05-0400 Body weight 91.63 kg La Plotvida HEEL WASHER STRINGING MACHINE OPERATOR.CNM Work Phone: [facility] 06-06-2024 13:05-0400 Diastolic blood pressure 66 mm[Hg] La Plotvida HEEL WASHER STRINGING MACHINE OPERATOR.CNM Work Phone: [facility] 06-06-2024 13:05-0400 Systolic blood pressure 114 mm[Hg] La Del Castillo HEEL WASHER STRINGING MACHINE OPERATOR.CNM Work Phone: [facility] 05-25-2024 15:18-0400 Body mass index (BMI) [Ratio] 34.16 kg/m2 Kia Lucero MD Work Phone: [facility] 05-25-2024 15:18-0400 Body weight 90.27 kg Kia Lucero MD Work Phone: [facility] 05-25-2024 15:18-0400 Diastolic blood pressure 70 mm[Hg] Kia Lucero MD Work Phone: [facility] 05-25-2024 15:18-0400 Systolic blood pressure 114 mm[Hg] Kia Lucero MD Work Phone: [facility] 04-27-2024 13:06-0500 Body mass index (BMI) [Ratio] 33.81 kg/m2 Delfina Watson HEEL WASHER STRINGING MACHINE OPERATOR.CNM Work Phone: [facility] 04-27-2024 13:06-0500 Body weight 89.36 kg Delfina Watson HEEL WASHER STRINGING MACHINE OPERATOR.CNM Work Phone: [facility] 04-27-2024 13:06-0500 Diastolic blood pressure 68 mm[Hg] Delfina Watson HEEL WASHER STRINGING MACHINE OPERATOR.CNM Work Phone: [facility] 04-27-2024 13:06-0500 Systolic blood pressure 116 mm[Hg] Delfina Watson HEEL WASHER STRINGING MACHINE OPERATOR.CNM Work Phone: [facility] 04-03-2024 16:15-0500 Body mass index (BMI) [Ratio] 33.3 kg/m2 Delfina Watson HEEL WASHER STRINGING MACHINE OPERATOR.CNM Work Phone: [facility] 04-03-2024 16:15-0500 Body weight 88 kg Delfina Watson HEEL WASHER STRINGING MACHINE OPERATOR.CNM Work Phone: [facility] 04-03-2024 16:15-0500 Diastolic blood pressure 60 mm[Hg] Delfina Watson HEEL WASHER STRINGING MACHINE OPERATOR.CNM Work Phone: [facility] 04-03-2024 16:15-0500 Systolic blood pressure 104 mm[Hg] Delfina Watson HEEL WASHER STRINGING MACHINE OPERATOR.CNM Work Phone: [facility] 03-28-2024 09:18-0500 Body mass index (BMI) [Ratio] 33.13 kg/m2 Duncan Munguia MD Work Phone: [facility] 03-28-2024 09:18-0500 Body weight 87.54 kg Duncan Munguia MD Work Phone: [facility] 03-28-2024 09:18-0500 Diastolic blood pressure 70 mm[Hg] Duncan Munguia MD Work Phone: [facility] 03-28-2024 09:18-0500 Systolic blood pressure 120 mm[Hg] Duncan Munguia MD Work Phone: [facility] 03-19-2024 13:50-0500 Body mass index (BMI) [Ratio] 33.15 kg/m2 Josiane Luzader HEEL WASHER STRINGING MACHINE OPERATOR.[employer] Work Phone: [facility] 03-19-2024 13:50-0500 Body temperature 98.2 [degF] Josiane Luzader HEEL WASHER STRINGING MACHINE OPERATOR.[employer] Work Phone: [facility] 03-19-2024 13:50-0500 Body weight 87.6 kg Josiane Luzader HEEL WASHER STRINGING MACHINE OPERATOR.[employer] Work Phone: [facility] 03-19-2024 13:50-0500 Heart rate 84 /min Josiane Luzader HEEL WASHER STRINGING MACHINE OPERATOR.[employer] Work Phone: [facility] 03-19-2024 13:50-0500 Respiratory rate 16 /min Josiane Luzader HEEL WASHER STRINGING MACHINE OPERATOR.[employer] Work Phone: [facility] 03-13-2024 11:57-0500 Body mass index (BMI) [Ratio] 32.96 kg/m2 Roberto Clutter PA-C Work Phone: [facility] 03-13-2024 11:57-0500 Body temperature 97.59 [degF] Roberto Clutter PA-C Work Phone: [facility] 03-13-2024 11:57-0500 Body weight 87.1 kg Roberto Clutter PA-C Work Phone: [facility] 03-13-2024 11:57-0500 Diastolic blood pressure 72 mm[Hg] Roberto Clutter PA-C Work Phone: [facility] 03-13-2024 11:57-0500 Heart rate 87 /min Roberto Clutter PA-C Work Phone: [facility] 03-13-2024 11:57-0500 Respiratory rate 18 /min Roberto Clutter PA-C Work Phone: [facility] 03-13-2024 11:57-0500 SaO2% (BldA) [Mass fraction] 98 % Roberto Clutter PA-C Work Phone: [facility] 03-13-2024 11:57-0500 Systolic blood pressure 110 mm[Hg] Roberto Clutter PA-C Work Phone: [facility] 02-21-2024 08:17-0500 Body height 162.6 cm Nilda Whitehall HEEL WASHER STRINGING MACHINE OPERATOR.[employer] Work Phone: [facility] 02-21-2024 08:17-0500 Body mass index (BMI) [Ratio] 32.41 kg/m2 Nilda Linsey HEEL WASHER STRINGING MACHINE OPERATOR.[employer] Work Phone: [facility] 02-21-2024 08:17-0500 Body weight 85.64 kg Nilda Linsey HEEL WASHER STRINGING MACHINE OPERATOR.[employer] Work Phone: [facility] 02-21-2024 08:17-0500 Diastolic blood pressure 78 mm[Hg] Nilda Whitehall HEEL WASHER STRINGING MACHINE OPERATOR.[employer] Work Phone: [facility] 02-21-2024 08:17-0500 Systolic blood pressure 124 mm[Hg] Nilda Linsey HEEL WASHER STRINGING MACHINE OPERATOR.[employer]ION Work Phone: [facility] 01-30-2024 14:05-0500 Body mass index (BMI) [Ratio] 30.55 kg/m2 Nilda Whitehall HEEL WASHER STRINGING MACHINE OPERATOR.[employer]ION Work Phone: [facility] 01-30-2024 14:05-0500 Body weight 85 kg Nilda Whitehall HEEL WASHER STRINGING MACHINE OPERATOR.[employer] Work Phone: [facility] 01-30-2024 14:05-0500 Diastolic blood pressure 72 mm[Hg] Nilda Whitehall HEEL WASHER STRINGING MACHINE OPERATOR.[employer] Work Phone: [facility] 01-30-2024 14:05-0500 Systolic blood pressure 116 mm[Hg] Nilda Linsey HEEL WASHER STRINGING MACHINE OPERATOR.[employer] Work Phone: [facility] 12-12-2023 15:32-0400 Body mass index (BMI) [Ratio] 30.49 kg/m2 Nilda Linsey HEEL WASHER STRINGING MACHINE OPERATOR.[employer]ION Work Phone: [facility] 12-12-2023 15:32-0400 Body weight 84.82 kg Nilda Linsey HEEL WASHER STRINGING MACHINE OPERATOR.[employer] Work Phone: [facility] 12-12-2023 15:32-0400 Diastolic blood pressure 66 mm[Hg] Nilda Linsey HEEL WASHER STRINGING MACHINE OPERATOR.[employer] Work Phone: [facility] 12-12-2023 15:32-0400 Systolic blood pressure 122 mm[Hg] Nilda Whitehall HEEL WASHER STRINGING MACHINE OPERATOR.[employer] Work Phone: [facility] 10-31-2023 10:56-0400 Body height 166.8 cm Sommer Hernandez PA-C Work Phone: [facility] 10-31-2023 10:56-0400 Body mass index (BMI) [Ratio] 30.8 kg/m2 Sommer Hernandez PA-C Work Phone: [facility] 10-31-2023 10:56-0400 Body temperature 98.2 [degF] Sommer Hernandez PA-C Work Phone: [facility] 10-31-2023 10:56-0400 Body weight 85.68 kg Sommer Hernandez PA-C Work Phone: [facility] Comment on above: in a boot at this time 10-31-2023 10:56-0400 Diastolic blood pressure 78 mm[Hg] Sommer Hernandez PA-C Work Phone: [facility] 10-31-2023 10:56-0400 Heart rate 102 /min Sommer Hernandez PA-C Work Phone: [facility] 10-31-2023 10:56-0400 Respiratory rate 18 /min Sommer Hernandez PA-C Work Phone: [facility] 10-31-2023 10:56-0400 Systolic blood pressure 116 mm[Hg] Sommer Hernandez PA-C Work Phone: [facility] 08-25-2023 13:59-0400 Body weight 86.91 kg Nilda Whitehall HEEL WASHER STRINGING MACHINE OPERATOR.[employer] Work Phone: [facility] 08-25-2023 13:59-0400 Diastolic blood pressure 60 mm[Hg] Nilda Whitehall HEEL WASHER STRINGING MACHINE OPERATOR.[employer] Work Phone: [facility] 08-25-2023 13:59-0400 Systolic blood pressure 110 mm[Hg] Nilda Linsey HEEL WASHER STRINGING MACHINE OPERATOR.[employer] Work Phone: [facility] 08-21-2023 10:35-0400 Body temperature 97.5 [degF] Alecia Vanessa HEEL WASHER STRINGING MACHINE OPERATOR.[employer] Work Phone: [facility] 08-21-2023 10:35-0400 Body weight 86.5 kg Alecia Vanessa HEEL WASHER STRINGING MACHINE OPERATOR.[employer] Work Phone: [facility] 08-21-2023 10:35-0400 Diastolic blood pressure 81 mm[Hg] Alecia Vanessa HEEL WASHER STRINGING MACHINE OPERATOR.[employer] Work Phone: [facility] 08-21-2023 10:35-0400 Heart rate 104 /min Alecia Vanessa HEEL WASHER STRINGING MACHINE OPERATOR.[employer] Work Phone: [facility] 08-21-2023 10:35-0400 Respiratory rate 18 /min Alecia Vanessa HEEL WASHER STRINGING MACHINE OPERATOR.[employer] Work Phone: [facility] 08-21-2023 10:35-0400 SaO2% (BldA) [Mass fraction] 98 % Alecia Vanessa HEEL WASHER STRINGING MACHINE OPERATOR.[employer] Work Phone: [facility] 08-21-2023 10:35-0400 Systolic blood pressure 112 mm[Hg] Alecia Vanessa HEEL WASHER STRINGING MACHINE OPERATOR.[employer] Work Phone: [facility] 07-29-2023 08:08-0400 Body weight 86.91 kg Nilda Linsey HEEL WASHER STRINGING MACHINE OPERATOR.[employer] Work Phone: [facility] 07-29-2023 08:08-0400 Diastolic blood pressure 66 mm[Hg] Nilda Linsey HEEL WASHER STRINGING MACHINE OPERATOR.[employer] Work Phone: [facility] 07-29-2023 08:08-0400 Systolic blood pressure 118 mm[Hg] Nilda Linsey HEEL WASHER STRINGING MACHINE OPERATOR.[employer] Work Phone: [facility] 07-11-2023 14:09-0400 Body weight 87.09 kg Nilda Linsey HEEL WASHER STRINGING MACHINE OPERATOR.[employer] Work Phone: [facility] 07-11-2023 14:09-0400 Diastolic blood pressure 74 mm[Hg] Nilda Linsey HEEL WASHER STRINGING MACHINE OPERATOR.[employer] Work Phone: [facility] 07-11-2023 14:09-0400 Systolic blood pressure 118 mm[Hg] Nilda Whitehall HEEL WASHER STRINGING MACHINE OPERATOR.[employer] Work Phone: [facility] 06-24-2023 14:28-0400 Body temperature 97.5 [degF] Que Chavez MD Work Phone: [facility] 06-24-2023 14:28-0400 Body weight 88.22 kg Que Chavez MD Work Phone: [facility] 06-24-2023 14:28-0400 Heart rate 80 /min Que Chavez MD Work Phone: [facility] 06-24-2023 14:28-0400 Respiratory rate 16 /min Que Chavez MD Work Phone: [facility] 05-16-2023 14:25-0400 Body weight 88.45 kg Kia Lucero MD Work Phone: [facility] 05-16-2023 14:25-0400 Diastolic blood pressure 70 mm[Hg] Kia Lucero MD Work Phone: [facility] 05-16-2023 14:25-0400 Systolic blood pressure 102 mm[Hg] Kia Lucero MD Work Phone: [facility] 05-03-2023 14:36-0500 Body weight 88.81 kg Delfina Watson HEEL WASHER STRINGING MACHINE OPERATOR.CNM Work Phone: [facility] 05-03-2023 14:36-0500 Diastolic blood pressure 72 mm[Hg] Delfina Watson HEEL WASHER STRINGING MACHINE OPERATOR.CNM Work Phone: [facility] 05-03-2023 14:36-0500 Systolic blood pressure 110 mm[Hg] Delfina Watson HEEL WASHER STRINGING MACHINE OPERATOR.CNM Work Phone: [facility] 10-05-2022 11:36-0400 Body height 158.2 cm Sommer Hernandez PA-C Work Phone: [facility] 10-05-2022 11:36-0400 Body mass index (BMI) [Percentile] Per age and sex 98.12 % Sommer Hernandez PA-C Work Phone: [facility] 10-05-2022 11:36-0400 Body temperature 97.7 [degF] Sommer Hernandez PA-C Work Phone: [facility] 10-05-2022 11:36-0400 Body weight 92.08 kg Sommer Hernandez PA-C Work Phone: [facility] 10-05-2022 11:36-0400 Diastolic blood pressure 74 mm[Hg] Sommer Hernandez PA-C Work Phone: [facility] 10-05-2022 11:36-0400 Heart rate 98 /min Sommer Hernandez PA-C Work Phone: [facility] 10-05-2022 11:36-0400 Respiratory rate 18 /min Sommer Hernandez PA-C Work Phone: [facility] 10-05-2022 11:36-0400 Systolic blood pressure 124 mm[Hg] Sommer Hernandez PA-C Work Phone: [facility] 07-15-2022 15:03-0400 Body weight 88 kg Nilda Linsey HEEL WASHER STRINGING MACHINE OPERATOR.[employer] Work Phone: [facility] 07-15-2022 15:03-0400 Diastolic blood pressure 76 mm[Hg] Nilda Whitehall HEEL WASHER STRINGING MACHINE OPERATOR.[employer] Work Phone: [facility] 07-15-2022 15:03-0400 Systolic blood pressure 100 mm[Hg] Nilda Linsey HEEL WASHER STRINGING MACHINE OPERATOR.[employer] Work Phone: [facility] 05-27-2022 11:36-0400 Body temperature 97.3 [degF] Ramon Patrick MD Work Phone: [facility] 05-27-2022 11:36-0400 Body weight 86.55 kg Ramon Patrick MD Work Phone: [facility] 05-27-2022 11:36-0400 Diastolic blood pressure 86 mm[Hg] Ramon Patrick MD Work Phone: [facility] 05-27-2022 11:36-0400 Heart rate 19 /min Ramon Patrick MD Work Phone: [facility] 05-27-2022 11:36-0400 Respiratory rate 18 /min Ramon Patrick MD Work Phone: [facility] 05-27-2022 11:36-0400 SaO2% (BldA) [Mass fraction] 97 % Ramon Patrick MD Work Phone: [facility] 05-27-2022 11:36-0400 Systolic blood pressure 110 mm[Hg] Ramon Patrick MD Work Phone: [facility] 05-07-2022 08:58-0500 Body temperature 98.6 [degF] Sommer Hernandez PA-C Work Phone: [facility] 05-07-2022 08:58-0500 Body weight 87.32 kg Sommer Hernandez PA-C Work Phone: [facility] 05-07-2022 08:58-0500 Heart rate 100 /min Sommer Hernandez PA-C Work Phone: [facility] 05-07-2022 08:58-0500 Respiratory rate 16 /min Sommer Hernandez PA-C Work Phone: [facility] 04-12-2022 08:30-0500 Body weight 86.82 kg Nilda Whitehall HEEL WASHER STRINGING MACHINE OPERATOR.[employer] Work Phone: [facility] 04-12-2022 08:30-0500 Diastolic blood pressure 60 mm[Hg] Nilda Linsey HEEL WASHER STRINGING MACHINE OPERATOR.[employer] Work Phone: [facility] 04-12-2022 08:30-0500 Systolic blood pressure 100 mm[Hg] Nilda Whitehall HEEL WASHER STRINGING MACHINE OPERATOR.[employer] Work Phone: [facility] 03-16-2022 09:53-0500 Body weight 86.46 kg Nilda Linsey HEEL WASHER STRINGING MACHINE OPERATOR.[employer] Work Phone: [facility] 03-16-2022 09:53-0500 Diastolic blood pressure 68 mm[Hg] Nilda Whitehall HEEL WASHER STRINGING MACHINE OPERATOR.[employer] Work Phone: [facility] 03-16-2022 09:53-0500 Systolic blood pressure 100 mm[Hg] Nilda Whitehall HEEL WASHER STRINGING MACHINE OPERATOR.[employer] Work Phone: [facility] 01-18-2022 10:13-0500 Body temperature 97.7 [degF] Alecia Mendez HEEL WASHER STRINGING MACHINE OPERATOR.[employer] Work Phone: [facility] 01-18-2022 10:13-0500 Body weight 83.46 kg Alecia Vanessa HEEL WASHER STRINGING MACHINE OPERATOR.[employer] Work Phone: [facility] 01-18-2022 10:13-0500 Diastolic blood pressure 64 mm[Hg] Alecia Vanessa HEEL WASHER STRINGING MACHINE OPERATOR.[employer] Work Phone: [facility] 01-18-2022 10:13-0500 Heart rate 112 /min Alecia Vanessa HEEL WASHER STRINGING MACHINE OPERATOR.[employer] Work Phone: [facility] 01-18-2022 10:13-0500 Respiratory rate 16 /min Alecia Vanessa HEEL WASHER STRINGING MACHINE OPERATOR.[employer] Work Phone: [facility] 01-18-2022 10:13-0500 SaO2% (BldA) [Mass fraction] 96 % Alecia Vanessa HEEL WASHER STRINGING MACHINE OPERATOR.[employer] Work Phone: [facility] 01-18-2022 10:13-0500 Systolic blood pressure 118 mm[Hg] Alecia Vanessa HEEL WASHER STRINGING MACHINE OPERATOR.[employer] Work Phone: [facility] 10-28-2021 08:55-0400 Body height 163.8 cm Sommer Hernandez PA-C Work Phone: [facility] 10-28-2021 08:55-0400 Body mass index (BMI) [Percentile] Per age and sex 96.45 % Sommer Hernandez PA-C Work Phone: [facility] 10-28-2021 08:55-0400 Body temperature 97.9 [degF] Sommer Hernandez PA-C Work Phone: [facility] 10-28-2021 08:55-0400 Body weight 84.37 kg Sommer Hernandez PA-C Work Phone: [facility] 10-28-2021 08:55-0400 Heart rate 80 /min Sommer Hernandez PA-C Work Phone: [facility] 10-28-2021 08:55-0400 Respiratory rate 16 /min Sommer Hernandez PA-C Work Phone: [facility] 10-05-2021 12:50-0400 Body temperature 97.9 [degF] Alecia Vanessa HEEL WASHER STRINGING MACHINE OPERATOR.[employer] Work Phone: [facility] 10-05-2021 12:50-0400 Body weight 83.46 kg Alecia Vanessa HEEL WASHER STRINGING MACHINE OPERATOR.[employer] Work Phone: [facility] 10-05-2021 12:50-0400 Diastolic blood pressure 76 mm[Hg] Alecia Vanessa HEEL WASHER STRINGING MACHINE OPERATOR.[employer] Work Phone: [facility] 10-05-2021 12:50-0400 Heart rate 88 /min Alecia Vanessa HEEL WASHER STRINGING MACHINE OPERATOR.[employer] Work Phone: [facility] 10-05-2021 12:50-0400 Respiratory rate 16 /min Alecia Vanessa HEEL WASHER STRINGING MACHINE OPERATOR.[employer] Work Phone: [facility] 10-05-2021 12:50-0400 SaO2% (BldA) [Mass fraction] 98 % Alecia Vanessa HEEL WASHER STRINGING MACHINE OPERATOR.[employer] Work Phone: [facility] 10-05-2021 12:50-0400 Systolic blood pressure 124 mm[Hg] Alecia Vanessa HEEL WASHER STRINGING MACHINE OPERATOR.[employer] Work Phone: [facility] 07-13-2021 09:04-0400 Body height 163.4 cm Que Chavez MD Work Phone: [facility] 07-13-2021 09:04-0400 Body mass index (BMI) [Percentile] Per age and sex 96.38 % Que Chavez MD Work Phone: [facility] 07-13-2021 09:04-0400 Body temperature 97.7 [degF] Que Chavez MD Work Phone: [facility] 07-13-2021 09:04-0400 Body weight 83.01 kg Que Chavez MD Work Phone: [facility] 07-13-2021 09:04-0400 Heart rate 92 /min Que Chavez MD Work Phone: [facility] 07-13-2021 09:04-0400 Respiratory rate 20 /min Que Chavez MD Work Phone: [facility] 06-12-2021 09:04-0400 Body temperature 97.7 [degF] Que Chavez MD Work Phone: [facility] 06-12-2021 09:04-0400 Body weight 82.1 kg Que Chavez MD Work Phone: [facility] 06-12-2021 09:04-0400 Diastolic blood pressure 80 mm[Hg] Que Chavez MD Work Phone: [facility] 06-12-2021 09:04-0400 Heart rate 80 /min Que Chavez MD Work Phone: [facility] 06-12-2021 09:04-0400 Respiratory rate 18 /min Que Chavez MD Work Phone: [facility] 06-12-2021 09:04-0400 Systolic blood pressure 118 mm[Hg] Que Chavez MD Work Phone: [facility] Encounters Encounter Date Encounter Type Care Provider Facility Start: 10-12-2024 End: 10-13-[address] Ruiz Vega DO Work Phone: [facility] Start: 10-12-2024 End: 10-13-2024 Patient encounter procedure Delfina Watson CNM [facility] Work Phone: Start: 10-09-2024 End: 10-09-2024 ambulatory RUIZ VEGA Facility:[facility] Start: 10-05-2024 End: 10-05-2024 Patient encounter procedure Delfina Watson APRN.CNM Work Phone: OB/Gynecology Comment on above: 39 weeks gestation o f (HCC) (Primary Dx); Supervision of high risk in third trimester (HCC); Obesity in (HCC); Positive GBS test Start: 10-05-2024 End: 10-05-2024 ambulatory RUIZ VEGA Facility:[facility] Start: 09-25-2024 End: 09-25-2024 Patient encounter procedure Janelle Marin MD Work Phone: OB/Gynecology Comment on above: Supervision of high risk in third trimester (HCC) (Primary Dx); 38 weeks gestation of (HCC) Start: 09-25-2024 End: 09-25-2024 ambulatory RUIZ VEGA Facility:[facility] Start: 09-18-2024 End: 09-18-2024 Patient encounter procedure Alo Thompson MD Work Phone: OB/Gynecology Comment on above: Supervision of high risk in third trimester (HCC) (Primary Dx); 37 weeks gestation of (HCC); Positive GBS test Start: 09-18-2024 End: 09-18-2024 ambulatory RUIZ VEGA Facility:[facility] Start: 09-12-2024 End: 09-12-2024 Patient encounter procedure Castillo Mckeon MD Work Phone: OB/Gynecology Comment on above: 36 weeks gestation o f (HCC) (Primary Dx); Supervision of high risk in third trimester (HCC); Obesity affecting in third trimester, unspecified obesity type (HCC); Heartburn during in third trimester (HCC) Start: 09-12-2024 End: 09-12-2024 ambulatory RUIZ VEGA Facility:[facility] Start: 09-04-2024 End: 09-04-2024 Follow-up encounter Janelle [...] 09-04-2024 End: 09-04-2024 ambulatory RUIZ L VEGA Facility:[facility] Start: 08-30-2024 End: 08-30-2024 Patient encounter procedure La Del Castillo APRN.CNM Work Phone: OB/Gynecology Comment on above: Supervision of high risk in third trimester (HCC) (Primary Dx); Obesity affecting in third trimester, unspecified obesity type (HCC); 34 weeks gestation of (HCC) Start: 08-30-2024 End: 08-30-2024 ambulatory RUIZ L VEGA Facility:[facility] Start: 08-16-2024 End: 08-16-2024 Patient encounter procedure Lindsey Moreno APRN.GLASS SCULLION Work Phone: OB/Gynecology Comment on above: Supervision of high risk in third trimester (HCC) (Primary Dx); 32 weeks gestation of (HCC); Obesity affecting in third trimester, unspecified obesity type (HCC) Start: 08-16-2024 Encounter for genera l adult medical examination without abnormal findings RUIZ VEGA [facility] Start: 08-16-2024 End: 08-16-2024 ambulatory RUIZ L VEGA Facility:[facility] Start: 08-13-2024 End: 08-13-2024 Patient encounter procedure Ruiz Wagner Vega DO Work Phone: [facility] [place] Comment on above: Well adult exam ([facility] Dx); 31 weeks gestation of (HCC); Class 2 obesity with body mass index (BMI) of 35.0 to 35.9 in adult, unspecified obesity type, unspecified whether serious comorbidity present; Gastroesophageal reflux disease without esophagitis Start: 08-13-2024 End: 08-13-2024 Patient encounter status Ruiz L Vega DO Work Phone: [facility] Work Phone: Start: 08-13-2024 End: 08-13-2024 ambulatory RUIZ L VEGA Facility:[facility] Start: 08-06-2024 End: 08-08-2024 Telephone encounter La Del Castillo APRN.CNM Work Phone: OB/Gynecology Comment on above: breast pump Start: 08-03-2024 End: 08-03-2024 Telephone encounter Nurse Senior [employer] So[employer] Developer Manisha Bond Work Phone: Obstetrics/Gynecology Comment on [...] Start: 08-01-2024 End: 08-01-2024 ambulatory CASTILLO MCKEON Facility:[facility] Start: 07-23-2024 End: 09-22-2024 Follow-up encounter Castillo Mckeon MD Work Phone: OB/Gynecology Start: 07-20-2024 End: 07-20-2024 Patient encounter procedure Lindsey Moreno APRN.GLASS SCULLION Work Phone: OB/Gynecology Comment on above: Supervision of high risk in third trimester (HCC) (Primary Dx); 28 weeks gestation of (HCC); Obesity affecting in third trimester, unspecified obesity type (HCC); Vaginal discharge during in third trimester (HCC) Start: 07-20-2024 End: 07-20-2024 ambulatory SELF Facility:[facility] Start: 07-19-2024 End: 07-19-2024 Telephone encounter Castillo [...] 06-21-2024 End: 06-21-2024 ambulatory LA DEL CASTILLO Facility:[facility] Start: 06-19-2024 End: 06-19-2024 ambulatory KIA LUCERO Facility:[facility] Start: 06-19-2024 End: 06-19-2024 Patient encounter procedure Janelle Marin MD Work Phone: OB/Gynecology Comment on above: 24 weeks gestation o f (HCC) (Primary Dx); Obesity in (HCC); Screening for diabetes mellitus Start: 06-06-2024 End: 06-06-2024 ambulatory Kia Lucero MD Work Phone: OB/Gynecology Comment on above: Possible [place] hic ks Start: 06-06-2024 End: 06-06-2024 Patient encounter procedure La Del Castillo APRN.CNM Work Phone: OB/Gynecology Comment on above: Obesity in (HCC) (Primary Dx); Supervision of normal first teen in second trimester (HCC); 22 weeks gestation of (HCC); Cramping affecting , antepartum (HCC) Start: 05-29-2024 End: 07-29-2024 Follow-up encounter Delfina Watson APRN.CNM Work Phone: OB/Gynecology Start: 05-28-2024 End: 05-28-2024 Telephone encounter Nurse Senior [employer] So[employer] Developer Manisha Bond Work Phone: Obstetrics/Gynecology Comment on above: PRAF Start: 05-25-2024 End: 05-25-2024 Office outpatient visit 15 minutes Kia Lucero MD Work Phone: OB/Gynecology Comment on above: Supervision of jas l first teen in second trimester (Primary Dx); Obesity in ; 20 weeks gestation of Start: 05-25-2024 End: 05-25-2024 ambulatory DELFINA WATSON Facility:[facility] Start: 05-25-2024 End: 05-25-2024 Patient encounter procedure Whi [employer] 1 Senior [employer] So[employer] Developer [facility] Comment on above: Obesity in (Primary Dx); Supervision of normal first teen in first trimester; 13 weeks gestation of Start: 05-01-2024 End: 05-01-2024 Telephone encounter Janelle Marin MD Work Phone: OB/Gynecology Comment on above: Question (OB Questio n) Start: 04-28-2024 End: 04-28-2024 Emergency department patient visit Que Chavez Facility:[facility] Start: 04-27-2024 End: 04-27-2024 ambulatory DELFINA WATSON Facility:[facility] Start: 04-27-2024 End: 04-27-2024 Patient encounter procedure Delfina Walter HEEL WASHER STRINGING MACHINE OPERATOR.CNM Work Phone: OB/Gynecology Comment on above: Supervision of jas l first teen in second trimester (Primary Dx); Obesity in ; 16 weeks gestation of ; Dizziness Start: 04-13-2024 End: 04-13-2024 Telephone encounter La Del Castillo APRN.CNM Work Phone: OB/Gynecology Start: 04-10-2024 End: 04-10-2024 Refill Que Chavez MD Work Phone: [facility] Comment on above: Refill Request Start: 04-03-2024 End: 04-03-2024 ambulatory NILDA LINSEY Facility:[facility] Start: 04-03-2024 End: 04-03-2024 Patient encounter procedure Delfina Watson HEEL WASHER STRINGING MACHINE OPERATOR.CNM Work Phone: OB/Gynecology Comment on above: Supervision of jas l first teen in first trimester (Primary Dx); 13 weeks gestation of ; Obesity in Encounter for jyoti ferrell screening for malformation using ultrasound (Primary Dx); 13 weeks gestation of Start: 03-28-2024 End: 03-28-2024 ambulatory DUNCAN MUNGUIA Facility:[facility] Start: 03-28-2024 End: 03-28-2024 Patient encounter procedure Duncan Munguia MD Work Phone: OB/Gynecology Comment on above: Vaginal irritation ( Primary Dx); Vaginal discharge; Encounter for care in first trimester of first ; 12 weeks gestation of Start: 03-27-2024 End: 03-27-2024 ambulatory Delfina Watson HEEL WASHER STRINGING MACHINE OPERATOR.CNM Work Phone: OB/Gynecology Comment on above: Possible yeast infec tion Start: 03-22-2024 End: 03-22-2024 Telephone encounter La Del Castillo HEEL WASHER STRINGING MACHINE OPERATOR.CNM Work Phone: OB/Gynecology Comment on above: Medication Question Start: 03-19-2024 End: 03-19-2024 ambulatory QUE CHAVEZ Facility:[facility] Start: 03-19-2024 End: 03-19-2024 Patient encounter procedure Josiane Goodwin HEEL WASHER STRINGING MACHINE OPERATOR.GLASS SCULLION Work Phone: [facility] [place] Comment on above: Acute non-recurrent frontal sinusitis (Primary Dx) Start: 03-13-2024 End: 03-13-2024 Office outpatient new 30 minutes Roberto Powers PA-C Work Phone: [facility] Comment on above: Sore throat (Primary Dx) Start: 03-13-2024 End: 03-13-2024 ambulatory QUE CHAVEZ Facility:[facility] Start: 03-10-2024 End: 03-10-2024 ambulatory Vivian Jefferson RN NURSE PIECER Start: 03-10-2024 End: 03-10-2024 Patient encounter procedure Vivian Jefferson RN NURSE ON [place] Comment on above: Clinical Update Start: 02-24-2024 End: 02-24-2024 Get Medical Advice Nilda Stiles HEEL WASHER STRINGING MACHINE OPERATOR.GLASS SCULLION Work Phone: OB/Gynecology Comment on above: Lab Orders Start: 02-23-2024 End: 02-23-2024 Telephone encounter Pauline Au RN Obstetrics/Gynecology Comment on above: PRAF Start: 02-21-2024 End: 02-21-2024 ambulatory QUE CHAVEZ Facility:[facility] Start: 02-21-2024 End: 02-21-2024 Patient encounter procedure Nilda Bellcalf HEEL WASHER STRINGING MACHINE OPERATOR.GLASS SCULLION Work Phone: OB/Gynecology Comment on above: Encounter for prenat al care in first trimester of first (Primary Dx); 7 weeks gestation of ; Vaginal irritation; BMI 32.0-32.9,adult; Supervision of normal first teen in first trimester Start: 01-30-2024 End: 01-30-2024 ambulatory QUE CHAVEZ Facility:[facility] Start: 01-30-2024 End: 01-30-2024 Patient encounter procedure Nilda Stiles HEEL WASHER STRINGING MACHINE OPERATOR.GLASS SCULLION Work Phone: OB/Gynecology Comment on above: Encounter for pregna ncy test, result positive (Primary Dx) Start: 12-15-2023 End: 12-15-2023 Telephone encounter Nilda Stiles APRN.GLASS SCULLION Work Phone: OB/Gynecology Comment on above: Results Start: 12-12-2023 End: 12-12-2023 ambulatory QUE CHAVEZ Facility:[facility] Start: 12-12-2023 End: 12-12-2023 Patient encounter procedure Nilda Bellcalf HEEL WASHER STRINGING MACHINE OPERATOR.GLASS SCULLION Work Phone: OB/Gynecology Comment on above: Vaginal discharge (P rimary Dx); Vaginal irritation; Family history of thyroid disorder Start: 11-15-2023 End: 11-15-2023 [facility] Start: 10-31-2023 End: 10-31-2023 ambulatory QUE CHAVEZ Facility:[facility] Start: 10-31-2023 End: 10-31-2023 Patient encounter procedure Sommer Hernandez PA-C Work Phone: [facility] [place] Comment on above: Encounter for wellne ss examination in adult (Primary Dx); Mild intermittent asthma with (acute) exacerbation; Seborrhea; Adverse food reaction, initial encounter Start: 10-31-2023 End: 10-31-2023 Patient encounter status Sommer Hernandez PA-C Work Phone: [facility] Work Phone: Start: 10-28-2023 End: 10-28-2023 Refill Que Chavez MD Work Phone: [facility] [place] Comment on above: Refill Request Start: 10-18-2023 End: 10-18-2023 ambulatory [facility] Facility:[facility] Start: 09-05-2023 Refill Que Chavez MD Work Phone: [facility] [place] Comment on above: Refill Request Start: 08-25-2023 End: 08-25-2023 Patient encounter procedure Nilda Linsey HEEL WASHER STRINGING MACHINE OPERATOR.GLASS SCULLION Work Phone: OB/Gynecology Comment on above: Vaginal burning (Yudith bell Dx) Start: 08-21-2023 End: 08-21-2023 Patient encounter procedure Alecia Vanessa HEEL WASHER STRINGING MACHINE OPERATOR.GLASS SCULLION Work Phone: [facility] Comment on above: Sore throat (Primary Dx); Viral illness Start: 08-02-2023 Telephone encounter Nilda [facility] skilled nursing HEEL WASHER STRINGING MACHINE OPERATOR.GLASS SCULLION Work Phone: OB/Gynecology Comment on above: Results Start: 07-29-2023 End: 07-29-2023 Patient encounter procedure Nilda Whitehall HEEL WASHER STRINGING MACHINE OPERATOR.GLASS SCULLION Work Phone: OB/Gynecology Comment on above: Vaginal discharge (P rimary Dx) Start: 07-28-2023 Refill Rachael Huffman HEEL WASHER STRINGING MACHINE OPERATOR.GLASS SCULLION Work Phone: OB/Gynecology Comment on above: Refill Request Start: 07-12-2023 Telephone encounter Nilda [facility] skilled nursing HEEL WASHER STRINGING MACHINE OPERATOR.GLASS SCULLION Work Phone: OB/Gynecology Comment on above: Results Start: 07-11-2023 End: 07-11-2023 Patient encounter procedure Nilda Linsey HEEL WASHER STRINGING MACHINE OPERATOR.GLASS SCULLION Work Phone: OB/Gynecology Comment on above: Vaginal [...] End: 05-13-2023 Subsequent hospital visit by physician [facility] 2 Work Phone: Radiology Comment on above: Pelvic pain in femal e [R10.2] Start: 05-03-2023 End: 05-03-2023 Patient encounter procedure Delfina Watson APRN.CNM Work Phone: OB/Gynecology Comment on above: Vaginal discharge (P rimary Dx); Vaginal itching; Pelvic pain in female Start: 04-28-2023 ambulatory Sommer Hernandez PA-C Work Phone: [facility] [place] Comment on above: Allergy testing Start: 11-11-2022 ambulatory Nilda Stiles HEEL WASHER STRINGING MACHINE OPERATOR.GLASS SCULLION Work Phone: [place] [facility] Start: 11-11-2022 Patient encounter procedure Re nee Whitehall HEEL WASHER STRINGING MACHINE OPERATOR.GLASS SCULLION Work Phone: OB/Gynecology Comment on above: Should I make an ck ointment Start: 10-05-2022 End: 10-05-2022 Patient encounter procedure Sommer Hernandez PA-C Work Phone: [facility] [place] Comment on above: Encounter for wellne ss examination in adult (Primary Dx); Encounter for immunization Start: 10-05-2022 End: 10-05-2022 Patient encounter status Sommer Hernandez PA-C Work Phone: [facility] Work Phone: Start: 07-15-2022 End: 07-15-2022 Patient encounter procedure Nilda Whitehall HEEL WASHER STRINGING MACHINE OPERATOR.GLASS SCULLION Work Phone: OB/Gynecology Comment on above: Missed period (Prima ry Dx); Encounter for other contraceptive management Start: 07-09-2022 ambulatory Nilda Whitehall HEEL WASHER STRINGING MACHINE OPERATOR.GLASS SCULLION Work Phone: OB/Gynecology Comment on above: control Start: 05-27-2022 End: 05-27-2022 Patient encounter procedure Ramon Patrick MD Work Phone: [facility] Comment on above: URI, acute (Primary Dx); Wheezing Start: 05-10-2022 E-mail encounter fro m caregiver Nilda Bellcalf HEEL WASHER STRINGING MACHINE OPERATOR.GLASS SCULLION Work Phone: [facility] Start: 05-10-2022 Patient encounter procedure Re nee Whitehall HEEL WASHER STRINGING MACHINE OPERATOR.GLASS SCULLION Work Phone: OB/Gynecology Comment on above: appointment 05/17/22 Start: 05-07-2022 End: 05-07-2022 Patient encounter procedure Sommer Hernandez PA-C Work Phone: [facility] Comment on above: Dysfunction of both eustachian tubes (Primary Dx); Seasonal allergies Start: 04-30-2022 ambulatory Nilda Whitehall HEEL WASHER STRINGING MACHINE OPERATOR.GLASS SCULLION Work Phone: OB/Gynecology Comment on above: Bacterial Vaginosis Start: 04-13-2022 Telephone encounter Nilda [facility] edna HEEL WASHER STRINGING MACHINE OPERATOR.GLASS SCULLION Work Phone: OB/Gynecology Comment on above: Results Start: 04-12-2022 End: 04-12-2022 Patient encounter procedure Nilda Linsey HEEL WASHER STRINGING MACHINE OPERATOR.GLASS SCULLION Work Phone: OB/Gynecology Comment on above: Vaginal irritation ( Primary Dx) Start: 04-09-2022 Telephone encounter Nilda [facility] skilled nursing HEEL WASHER STRINGING MACHINE OPERATOR.GLASS SCULLION Work Phone: OB/Gynecology Comment on above: Appointment (1st att empt no answer, no voicemail. Called to R/S w/ R.Whitehall for 2/6.) Start: 03-16-2022 End: 03-16-2022 Patient encounter procedure Nilda Stiles HEEL WASHER STRINGING MACHINE OPERATOR.GLASS SCULLION Work Phone: OB/Gynecology Comment on above: Pelvic pain in femal e (Primary Dx); Encounter for surveillance of contraceptive pills Start: 01-18-2022 End: 01-18-2022 Patient encounter procedure Alecia Hodarrin FRITZ.GLASS SCULLION Work Phone: [facility] Comment on above: Acute cough (Primary Dx); Fever, unspecified fever cause; Sore throat; URI with cough and congestion Start: 12-28-2021 End: 12-28-2021 Patient encounter procedure Nurse [facility] [place] [facility] [place] Comment on above: Encounter for immuni zation (Primary Dx) Start: 10-28-2021 End: 10-28-2021 Patient encounter procedure Sommer Hernandez PA-C Work Phone: [facility] [place] Comment on above: Seasonal allergies ( Primary Dx) Start: 10-05-2021 End: 10-05-2021 Patient encounter procedure Alecia Hodarrin FRITZ.GLASS SCULLION Work Phone: [facility] Comment on above: Upper respiratory sy mptom (Primary Dx); Suspected COVID-19 virus infection Start: 09-18-2021 End: 09-18-2021 ambulatory Erinn Woody MD Work Phone: OB/Gynecology Comment on above: [employer]ET[employer] Ultrasound Start: 09-18-2021 End: 09-18-2021 Patient encounter procedure Erinn Woody MD Work Phone: [facility] Start: 07-13-2021 End: 07-13-2021 Patient encounter procedure Que Chavez MD Work Phone: [facility] [place] Comment on above: Encounter for [facility] (w ell child check) with abnormal [...] et rgnt non-auto w/o micrscp Delfina Watson HEEL WASHER STRINGING MACHINE OPERATOR.CNM Work Phone: Start: 09-25-2024 Urnls dip stick/tabl [...] rgnt non-auto w/o micrscp La Del Castillo HEEL WASHER STRINGING MACHINE OPERATOR.CNM Work Phone: Start: 06-06-2024 Urnls dip stick/tabl et rgnt auto w/o microscopy La Del Castillo HEEL WASHER STRINGING MACHINE OPERATOR.CNM Work Phone: Start: 05-25-2024 Us preg uterus after 1st trimest / gestation Delfina Watson HEEL WASHER STRINGING MACHINE OPERATOR.CNM Work Phone: Start: 04-03-2024 Us nuchal translucency 1st gestation Nilda Linsey HEEL WASHER STRINGING MACHINE OPERATOR.GLASS SCULLION Work Phone: Start: 03-13-2024 STREP A MOLECULAR (POC) Delfina Nicholas HEEL WASHER STRINGING MACHINE OPERATOR.GLASS SCULLION Work Phone: Start: 02-24-2024 Antibody screen NILDA LOWE Comment on above: Order Comment: Speci men Type: SWAB Ordering Facility: [facility] Address: [address] [place] [address] Performed By: #### C VTV, BVAMP #### [facility] CLIA [id number] [address] [place] [address] [place] [address] [place] Start: 02-21-2024 Us uterus l imited fetuses Nilda Whitehall HEEL WASHER STRINGING MACHINE OPERATOR.GLASS SCULLION Work Phone: Start: 01-30-2024 UA DIP,URINE HCG (POC) Nilda Bellcalf HEEL WASHER STRINGING MACHINE OPERATOR.GLASS SCULLION Work Phone: Start: 10-31-2023 Adult depression scr eening assessment Nilda Linsey HEEL WASHER STRINGING MACHINE OPERATOR.GLASS SCULLION Work Phone: Start: 08-21-2023 STREP A MOLECULAR (POC) [facility] Provider Start: 07-11-2023 BACTERIAL VAGINOSIS NAAT Nilda Bellcalf HEEL WASHER STRINGING MACHINE OPERATOR.GLASS SCULLION Work Phone: Start: 07-11-2023 Iadna trichomonas vaginalis amplified probe tech Nilda Bellcalf HEEL WASHER STRINGING MACHINE OPERATOR.GLASS SCULLION Work Phone: Start: 05-13-2023 Us transvaginal Delfina Watson HEEL WASHER STRINGING MACHINE OPERATOR.CNM Work Phone: Start: 05-03-2023 BACTERIAL VAGINOSIS NAAT Delfina Watson HEEL WASHER STRINGING MACHINE OPERATOR.CNM Work Phone: Start: 05-03-2023 Iadna chlamydia trachomatis amplified probe tq Delfina Watson HEEL WASHER STRINGING MACHINE OPERATOR.CNM Work Phone: Start: 07-15-2022 Urine test visual color cmprsn meths Nilda Whitehall HEEL WASHER STRINGING MACHINE OPERATOR.GLASS SCULLION Work Phone: Start: 12-28-2021 [employer] COVI D-19 PRIMARY SERIES VACCINE, AGE 12+ YR Sommer Hernandez PA-C Work Phone: Start: 07-13-2021 Adult depression scr eening assessment Que Chavez MD Work Phone: Start: 05-05-2017 Adult depression scr eening assessment Que Chavez MD Work Phone: Plan of Treatment Date Care Activity Detail Author Start: 06-13-2031 Urine microalbumin profile [facility] Start: 08-13-2025 Annual PCP Team Senior Game Designer lluvia Disease Visit Annual PCP Team Chronic Disease Visit [facility] Start: 03-19-2025 Annual PCP Team Senior Game Designer lluvia Disease Visit Annual PCP Team Chronic Disease Visit [facility] Start: 02-20-2025 GC (Gonorrhea) Scree alexsandra (18) GC (Gonorrhea) Screening () [facility] Start: 02-20-2025 Screening for Chlamy morgan trachomatis Chlamydia Screening () [facility] Start: 12-14-2024 End: 12-14-2024 Patient encounter procedure 12/14/2024 1:40 PM EDT Office Visit [facility] [place] [address] [place], [place] [id number] Ruiz Vega DO [address] [place], [place] [id number] Follow up [facility] [place] Comment on above: Follow up Start: 11-05-2024 Influenza vaccination Influenza Vacc ine (#1) [facility] Start: 10-30-2024 Annual PCP Team Senior Game Designer lluvia Disease Visit Annual PCP Team Chronic Disease Visit [facility] Start: 10-30-2024 Anxiety Screening Anxiety Screening [facility] Start: 10-30-2024 Asthma Control Test Asthma Control T est [facility] Start: 10-30-2024 Depression Screening Depression Scre ening [facility] Start: 10-15-2024 ambulatory Ambulatory Facility:[facility] Start: 10-13-2024 [facility] Start: 10-12-2024 Nonstress test [facility] Start: 10-12-2024 Obstetric monitoring [facility] Start: 10-12-2024 Vital signs measurements [facility] Start: 10-12-2024 [facility] Start: 10-09-2024 End: 10-09-2024 Patient encounter procedure 10/09/2024 1:40 PM EDT Routine Office Visit OB/Gynecology [address] [place] [address] Castillo Mckeon MD [address] [place] [address] OB OB/Gynecology Comment on above: OB Start: 10-05-2024 End: 10-05-2024 Patient encounter procedure 10/05/2024 4:30 PM EDT Routine Office Visit OB/Gynecology [address] [place] [address] Delfina Watson APRN.[facility] [address] [place] [address] OB OB/Gynecology Comment on above: OB Start: 10-02-2024 End: 10-02-2024 Patient encounter procedure 10/02/2024 1:30 PM EDT Routine Office Visit OB/Gynecology [address] [place] [address] Kia Lucero MD [address] [place] [address] OB OB/Gynecology Comment on above: OB Start: 09-25-2024 End: 09-25-2024 Patient encounter procedure 09/25/2024 2:20 PM EDT Routine Office Visit OB/Gynecology [address] [place] [address] Janelle Marin MD [address] [place] [address] OB OB/Gynecology Comment on above: OB Start: 09-18-2024 End: 09-18-2024 Patient encounter procedure 09/18/2024 1:30 PM EDT Routine Office Visit OB/Gynecology [address] [place] [address] Alo Thompson MD [address] [place] [address] (Fax) OB OB/Gynecology Comment on above: OB Start: 09-12-2024 End: 09-12-2024 Patient encounter procedure 09/12/2024 10:10 AM EDT Routine Office Visit OB/Gynecology [address] [place] [address] Castillo Mckeon MD [address] [place] [address] (Fax) OB OB/Gynecology Comment on above: OB Start: 09-04-2024 [facility] Start: 09-04-2024 [facility] Start: 08-30-2024 End: 08-30-2024 Patient encounter procedure 08/30/2024 3:15 PM EDT Routine Office Visit OB/Gynecology [address] [place] [address] La Del Castillo APRN.CNM [address] [place] [address] (Fax) Ob OB/Gynecology Comment on above: Ob Start: 08-16-2024 End: 08-16-2024 Patient encounter procedure 08/16/2024 2:30 PM EDT Routine Office Visit OB/Gynecology [address] [place] [address] Lindsey Moreno APRN.GLASS SCULLION [address] [place] [address] (Fax) OB OB/Gynecology Comment on above: OB Start: 08-13-2024 End: 08-13-2024 Patient encounter procedure 08/13/2024 9:20 AM EDT Office Visit [facility] [place] [address] [place] [address] Ruiz Vega L, DO [address] [place] [address] Transfer from peds/[facility] Comment on above: Transfer from peds/[facility] Start: 08-03-2024 End: 08-03-2024 Patient encounter procedure 08/03/2024 2:30 PM EDT Routine Office Visit OB/Gynecology [address] [place] [address] Erinn Schwartz MD [address] [place] [address] OB OB/Gynecology Comment on above: OB Start: 08-02-2024 End: 08-02-2024 Patient encounter procedure 08/02/2024 10:30 AM EDT Routine Office Visit OB/Gynecology [address] [place] [address] La Del Castillo APRN.CNM [address] [place] [address] OB OB/Gynecology Comment on above: OB Start: 08-01-2024 End: 10-31-2024 BILE ACIDS, TOTAL [facility] Work Phone: Comment on above: Expected: 08/01/2024 , Expires: 10/31/2024 Start: 07-20-2024 End: 07-20-2024 Patient encounter procedure 07/20/2024 8:45 AM EDT Routine Office Visit OB/Gynecology [address] [place] [address] Lindsey Moreno APRN.[facility] SCULLION [address] [place] [address] OB Routine OB/Gynecology Comment on above: OB Routine Start: 07-20-2024 End: 07-20-2024 ambulatory 07/20/2024 8:30 AM EDT Results Only [place] [facility] [address] [place] [address] Glucose Test and LABs [facility] Comment on above: Glucose Test and LAB s Start: 06-23-2024 Annual PCP Team Senior Game Designer lluvia Disease Visit Annual PCP Team Chronic Disease Visit [facility] Start: 06-19-2024 End: 06-19-2024 Patient encounter procedure 06/19/2024 2:40 PM EDT Routine Office Visit OB/Gynecology [address] [place] [address] Kia Lucero MD [address] [place] [address] OB OB/Gynecology Comment on above: OB Start: 06-19-2024 End: 09-18-2024 ANEMIA REFLEX PANEL ANEMIA REFLEX PANEL Lab Routine 24 weeks gestation of ([facility]) Expected: 06/19/2024, Expires: 09/18/2024 [facility] Comment on above: Expected: 06/19/2024 , Expires: 09/18/2024 Start: 06-19-2024 End: 06-19-2025 GESTATIONAL GLUCOSE SCREEN, 1-HOUR, 50 GRAM, NON-FASTING GESTATIONAL GLUCOSE SCREEN, 1-HOUR, 50 GRAM, NON-FASTING Lab Routine 24 weeks gestation of ([facility]) Screening for diabetes mellitus Expected: 06/19/2024, Expires: 06/19/2025 [facility] Work Phone: Comment on above: Expected: 06/19/2024 , Expires: 06/19/2025 Start: 06-19-2024 End: 06-19-2025 SYPHILIS TREPONEMAL W/REFLEX SYPHILIS TREPONEMAL W/REFLEX Lab Routine 24 weeks gestation of ([facility]) Expected: 06/19/2024, Expires: 06/19/2025 [facility] Comment on above: Expected: 06/19/2024 , Expires: 06/19/2025 Start: 05-25-2024 End: 05-25-2024 Patient encounter procedure Maternal Medicine Comment on above: Anatomy OB Start: 05-03-2024 GC (Gonorrhea) Scree alexsandra (18) GC (Gonorrhea) Screening () [facility] Start: 05-03-2024 Screening for Chlamy morgan trachomatis Chlamydia Screening () [facility] Start: 04-27-2024 End: 04-27-2024 Patient encounter procedure 04/27/2024 1:15 PM EST Routine Office Visit OB/Gynecology [address] [place], [place] [id number] Delfina Watson APRN.CN [address] [place] [address] OB OB/Gynecology Comment on above: OB Start: 04-03-2024 End: 04-03-2024 Patient encounter procedure Maternal Medicine Comment on above: Nuchal Nuchal/ OB Start: 04-03-2024 End: 04-03-2025 OBSTETRIC ULTRASOUND WHI OBSTETRIC ULTRASOUND WHI Anc Imaging Routine Supervision of normal first teen in first trimester 13 weeks gestation of Obesity in Expected: 04/03/2024, Expires: 04/03/2025 [facility] Work Phone: Comment on above: Expected: 04/03/2024 , Expires: 04/03/2025 Start: 03-28-2024 End: 03-28-2024 Patient encounter procedure 03/28/2024 9:10 AM EST Routine Office Visit OB/Gynecology [address] [place], [place] [id number] Duncan Munguia MD [address] [place] [address] vaginal infection OB/Gynecology Comment on above: vaginal infection Start: 02-21-2024 End: 05-22-2024 ANEMIA REFLEX PANEL ANEMIA REFLEX PANEL Lab Routine Encounter for care in first trimester of first 7 weeks gestation of Expected: 02/21/2024, Expires: 05/22/2024 [facility] Work Phone: Comment on above: Expected: 02/21/2024 , Expires: 05/22/2024 Start: 02-21-2024 End: 05-22-2024 Chromosome 21 trisomy [Presence] in Blood or Tissue by Cytogenetics [id number] PLUS Lab Routine 7 weeks gestation of Expected: 02/21/2024, Expires: 05/22/2024 [facility] Comment on above: Expected: 02/21/2024 , Expires: 05/22/2024 Start: 02-21-2024 End: 05-22-2024 Hemoglobin A1c in Blood HEMOGLOBIN A1C Lab Routine Encounter for care in first trimester of first 7 weeks gestation of Expected: 02/21/2024, Expires: 05/22/2024 [facility] Comment on above: Expected: 02/21/2024 , Expires: 05/22/2024 Start: 02-21-2024 End: 05-22-2024 Hepatitis B virus surface Ag [Presence] in Serum HEPATITIS B SURFACE ANTIGEN Lab Routine Encounter for care in first trimester of first 7 weeks gestation of Expected: 02/21/2024, Expires: 05/22/2024 [facility] Comment on above: Expected: 02/21/2024 , Expires: 05/22/2024 Start: 02-21-2024 End: 05-22-2024 Hepatitis C virus Ab [Presence] in Serum HEPATITIS C ANTIBODY IA WITH CONFIRMATION Lab Routine Encounter for care in first trimester of first 7 weeks gestation of Expected: 02/21/2024, Expires: 05/22/2024 [facility] Comment on above: Expected: 02/21/2024 , Expires: 05/22/2024 Start: 02-21-2024 End: 05-22-2024 HIV 1+2 Ab [Presence] in Serum or Plasma by Immunoassay HIV 1/2 COMBO WITH REFLEX TO DIFFERENTIATION Lab Routine Encounter for care in first trimester of first 7 weeks gestation of Expected: 02/21/2024, Expires: 05/22/2024 [facility] Comment on above: Expected: 02/21/2024 , Expires: 05/22/2024 Start: 02-21-2024 End: 02-20-2025 NUCHAL TRANSLUCENCY WHI NUCHAL TRANSLUCENCY WHI Anc Imaging Routine Encounter for care in first trimester of first 7 weeks gestation of Expected: 02/21/2024, Expires: 02/20/2025 [facility] Comment on above: Expected: 02/21/2024 , Expires: 02/20/2025 Start: 02-21-2024 End: 05-22-2024 RUBELLA IGG ANTIBODY RUBELLA IGG ANTIBODY Lab Routine Encounter for care in first trimester of first 7 weeks gestation of Expected: 02/21/2024, Expires: 05/22/2024 [facility] Comment on above: Expected: 02/21/2024 , Expires: 05/22/2024 Start: 02-21-2024 End: 05-22-2024 SYPHILIS TREPONEMAL W/REFLEX SYPHILIS TREPONEMAL W/REFLEX Lab Routine Encounter for care in first trimester of first 7 weeks gestation of Expected: 02/21/2024, Expires: 05/22/2024 [facility] Comment on above: Expected: 02/21/2024 , Expires: 05/22/2024 Start: 02-21-2024 End: 05-22-2024 TYPE + SCREEN TYPE + SCREEN Blood Bank Routine Encounter for care in first trimester of first 7 weeks gestation of Expected: 02/21/2024, Expires: 05/22/2024 [facility] Comment on above: Expected: 02/21/2024 , Expires: 05/22/2024 Start: 02-21-2024 End: 02-21-2024 Patient encounter procedure 02/21/2024 8:15 AM EST Initial Office Visit OB/Gynecology [address] [place] [address] Nilda Stiles APRN.[employer] [address] [place] [address] New OB OB/Gynecology Comment on above: New OB Start: 12-12-2023 End: 03-12-2024 THYROID PEROXIDASE ANTIBODY [facility] Comment on above: Expected: 12/12/2023 , Expires: 03/12/2024 Start: 12-12-2023 End: 03-12-2024 Thyrotropin [Units/volume] in Serum or Plasma [facility] Work Phone: Comment on above: Expected: 12/12/2023 , Expires: 03/12/2024 Start: 12-12-2023 End: 03-12-2024 Thyroxine (T4) free [Mass/volume] in Serum or Plasma [facility] Comment on above: Expected: 12/12/2023 , Expires: 03/12/2024 Start: 12-12-2023 End: 03-12-2024 Triiodothyronine (T3) Free [Mass/volume] in Serum or Plasma [facility] Comment on above: Expected: 12/12/2023 , Expires: 03/12/2024 Start: 12-07-2023 End: 12-07-2023 Patient encounter procedure 12/07/2023 8:30 AM EDT Office Visit Allergy [address] [id number] Tio Wilcox MD [address] [place], [place] [id number] Adverse food reaction, initial encounter [T78.1XXA] Allergy Comment on above: Adverse food reactio n, initial encounter [T78.1XXA] Start: 11-11-2023 End: 11-11-2023 Patient encounter procedure 11/11/2023 8:00 AM EDT Office Visit OB/Gynecology [address] [place] [address] Nilda Stiles APRN.[facility] [address] [facility] [place] [address] yeast infection resistant OB/Gynecology Comment on above: yeast infection resi stant Start: 11-06-2023 Covid-19 Vaccine ( season) Covid-19 Vaccine ( season) [facility] Start: 11-06-2023 Influenza vaccination C [facility] Start: 10-31-2023 End: 10-31-2023 Patient encounter procedure 10/31/2023 11:00 AM EDT Office Visit Pediatrics [place] [address] [place] [address] Sommer Hernandez PA-C [address] [place] [address] [facility] [place] Comment on above: [facility] Start: 03-16-2023 CHLAMYDIA SCREENING (18-24) CHLAMYDIA SCREENING (18-24) [facility] Start: 03-16-2023 CHLAMYDIA SCREENING (<18) CHLA MYDIA SCREENING (<18) [facility] Start: 03-16-2023 GC (GONORRHEA) SCREE ALEXSANDRA (18-24) GC (GONORRHEA) SCREENING (18-24) [facility] Start: 03-16-2023 GC (GONORRHEA) SCREE ALEXSANDRA (<18) GC (GONORRHEA) SCREENING (<18) [facility] Start: 03-16-2023 Screening for Chlamy morgan trachomatis Chlamydia Screening (18-24) [facility] Start: 03-07-2023 Behavioral Health Screening Behavioral Health Screening [facility] Start: 03-07-2023 Depression Assessment Depression Ass [facility] Start: 11-05-2022 Covid-19 Vaccine ( season) Covid-19 Vaccine ( season) [facility] Start: 11-05-2022 Influenza vaccination [facility] Start: 2022 Anxiety Screening Anxiety Screening [facility] Start: 2022 Depression Screening Depression Scre ening [facility] Start: 2022 HEPATITIS C SCREENING HEPATITIS C [facility] Start: 2022 Hepatitis C screening Hepatitis C [facility] Start: 2022 HIV SCREENING HIV SCREENING [facility] Start: 2022 HIV screening HIV Screening [facility] Start: 2022 Spirometry Spirometry [facility] Start: 07-13-2022 Adult depression screening assessment DEPRESSION SCREENING [facility] Start: 03-07-2022 DEPRESSION ASSESSMENT DEPRESSION ASS ESSMENT [facility] Start: 02-22-2022 COVID-19 VACCINE (3 - Booster for Pfizer series) COVID-19 VACCINE (3 - Booster for Pfizer series) [facility] Start: 02-22-2022 COVID-19 VACCINE (3 - Pfizer series) COVID-19 VACCINE (3 - Pfizer series) [facility] Start: 01-18-2022 End: 02-01-2022 COVID, FLU A/B + RSV, ROUTINE [facility] Work Phone: Comment on above: Expected: 01/18/2022 , Expires: 02/01/2022 Start: 11-05-2021 Influenza vaccination C [facility] Start: 10-05-2021 End: 10-19-2021 COVID, FLU A/B + RSV, ROUTINE COVID, FLU A/B + RSV, ROUTINE Microbiology Routine Upper respiratory symptom Suspected COVID-19 virus infection Expected: 10/05/2021, Expires: 10/19/2021 [facility] Work Phone: Comment on above: Expected: 10/05/2021 , Expires: 10/19/2021 Start: 04-27-2021 Asthma Action Plan Asthma Action Yessenia n [facility] Start: 2020 Meningococcal B Vacc ine (1 of 2 - Standard) Meningococcal B Vaccine (1 of 2 - Standard) [facility] Start: 2020 Meningococcal B Vacc ine: Consider Based On Risk (1 of 2 - Patient Seeks Protection) Meningococcal B Vaccine: Consider Based On Risk (1 of 2 - Patient Seeks Protection) [facility] Start: 2020 MENINGOCOCCAL B: Con rn procedure based on risk (1 of 2 - Patient Seeks Protection) MENINGOCOCCAL B: Consider based on risk (1 of 2 - Patient Seeks Protection) [facility] Start: 04-27-2020 Asthma Control Test Asthma Control T est [facility] Start: 10-26-2019 HPV VACCINE (2 - 2-d ose series) HPV VACCINE (2 - 2-dose series) [facility] Start: 08-13-2019 CHLAMYDIA SCREENING (<18) CHLA MYDIA SCREENING (<18) [facility] Start: 08-13-2019 GC (GONORRHEA) SCREE ALEXSANDRA (<18) GC (GONORRHEA) SCREENING (<18) [facility] Start: 2018 PEDS TO ADULT TRANSI TION ANNUAL ASSESSMENT PEDS TO ADULT TRANSITION ANNUAL ASSESSMENT [facility] Start: 05-05-2018 Adult depression screening assessment DEPRESSION SCREENING [facility] Start: 2016 PEDS TO ADULT TRANSI TION INITIAL DISCUSSION PEDS TO ADULT TRANSITION INITIAL DISCUSSION [facility] Start: 2014 MENINGOCOCCAL B: Con rn procedure based on risk (1 of 2 - Risk Bexsero 2-dose series) MENINGOCOCCAL B: Consider based on risk (1 of 2 - Risk Bexsero 2-dose series) [facility] Start: 2009 COVID-19 VACCINE (#1) COVID-19 VACCI NE (#1) [facility] Start: 2009 COVID-19 VACCINE (1) COVID-19 VACCIN E (1) [facility] Start: 02-11-2005 COVID-19 VACCINE (#1) COVID-19 VACCI NE (#1) [facility] Bacteria identified in Urine by Culture URINE CULTURE Microbiology Routine Encounter for care in first trimester of first 7 weeks gestation of 02/21/2024 8:57 AM [facility] BACTERIAL VAGINOSIS AMPLIFICATION BACTERIAL VAGINOSIS AMPLIFICATION Lab Routine Pelvic pain in female 03/16/2022 10:38 AM [facility] Work Phone: BACTERIAL VAGINOSIS AMPLIFICATION BACTERIAL VAGINOSIS AMPLIFICATION Lab Routine Vaginal irritation 04/12/2022 8:51 AM [facility] Work Phone: BACTERIAL VAGINOSIS NAAT BACTERI AL VAGINOSIS NAAT Lab Routine Vaginal discharge 07/29/2023 8:31 AM EDT [facility] BACTERIAL VAGINOSIS NAAT BACTERI AL VAGINOSIS NAAT Lab Routine Vaginal discharge Vaginal irritation [facility] BACTERI AL VAGINOSIS NAAT Lab Routine Vaginal irritation 02/21/2024 8:57 AM [facility] BACTERIAL VAGINOSIS NAAT BACTERI AL VAGINOSIS NAAT Lab Routine Vaginal irritation Vaginal discharge 03/28/2024 10:13 AM [facility] Work Phone: BACTERIAL VAGINOSIS NAAT BACTERI AL VAGINOSIS NAAT Lab Routine Vaginal discharge during in third trimester (HCC) 07/20/2024 8:54 AM [facility] Work Phone: FRANCO / TRICHOMONA S AMPLIFICATION FRANCO / TRICHOMONAS AMPLIFICATION Microbiology Routine Pelvic pain in female 03/16/2022 10:[address] [facility] Work Phone: FRANCO / TRICHOMONA S AMPLIFICATION FRANCO / TRICHOMONAS AMPLIFICATION Microbiology Routine Vaginal irritation 04/12/2022 8:51 AM [facility] Work Phone: FRANCO/TRICHOMONAS NAAT FRANCO /TRICHOMONAS NAAT Lab Routine Vaginal discharge 07/29/2023 8:[address] [facility] Work Phone: FRANCO/TRICHOMONAS NAAT FRANCO /TRICHOMONAS NAAT Lab Routine Vaginal discharge Vaginal irritation 12/12/2023 4:17 PM EDT [facility] FRANCO/TRICHOMONAS NAAT FRANCO /TRICHOMONAS NAAT Lab Routine Vaginal irritation 02/21/2024 8:57 AM [facility] FRANCO/TRICHOMONAS NAAT FRANCO /TRICHOMONAS NAAT Lab Routine Vaginal irritation Vaginal discharge 03/28/2024 10:13 AM [facility] FRANCO/TRICHOMONAS NAAT FRANCO /TRICHOMONAS NAAT Lab Routine Vaginal discharge during in third trimester (HCC) 07/20/2024 8:54 AM [facility] Chlamydia trachomatis+Neisseria gonorrhoeae DNA [Presence] in Unspecified specimen by MEG with probe detection GC/CHLAMYDIA DNA DET Lab Routine Pelvic pain in female 03/16/2022 10:38 AM [facility] Work Phone: Chlamydia trachomatis+Neisseria gonorrhoeae DNA [Presence] in Unspecified specimen by MEG with probe detection GONORRHEA/CHLAMYDIA NAAT Lab Routine Encounter for care in first trimester of first 7 weeks gestation of 02/21/2024 8:57 AM [facility] Measurement of pH in vaginal fluid specimen using nitrazine yellow for detection of rupture of amniotic membrane [facility] Patient Education [facility] Work Phone: Removal intrauterine device iud REMOVE INTRAUTERINE DEVICE Procedures Routine Malpositioned intrauterine device (IUD), initial encounter Encounter for IUD removal Ordered: 05/13/2023 [facility] Work Phone: Comment on above: Ordered: 05/13/2023 ROUTINE FLU A/B + RSV ROUTINE FL U A/B + RSV Lab Routine Upper respiratory symptom Suspected COVID-19 virus infection Ordered: 10/05/2021 [facility] Work Phone: Comment on above: Ordered: 10/05/2021 ROUTINE FLU A/B + RSV ROUTINE FL U A/B + RSV Lab Routine Acute cough Fever, unspecified fever cause Sore throat URI with cough and congestion 01/18/2022 10:38 AM [facility] Work Phone: ROUTINE, GR OUP B STREPTOCOCCUS BY PCR ROUTINE, GROUP B STREPTOCOCCUS BY PCR Microbiology Routine 36 weeks gestation of ([facility]) 09/12/2024 10:[address] [facility] Work Phone: SARS-CoV-2 (COVID-19 ) RNA [Presence] in Respiratory specimen by MEG with probe detection 2019 CORONAVIRUS Microbiology Routine Upper respiratory symptom Suspected COVID-19 virus infection Ordered: 10/05/2021 [facility] Work Phone: Comment on above: Ordered: 10/05/2021 SARS-CoV-2 (COVID-19 ) RNA [Presence] in Respiratory specimen by MEG with probe detection 2019 CORONAVIRUS Microbiology Routine Acute cough Fever, unspecified fever cause Sore throat URI with cough and congestion 01/18/2022 10:38 AM [facility] Work Phone: SARS-CoV-2 (COVID-19 ) RNA [Presence] in Respiratory specimen by MEG with probe detection 2019 CORONAVIRUS Microbiology Routine URI, acute Wheezing Ordered: 05/27/2022 [facility] Work Phone: Comment on above: Ordered: 05/27/2022 UROGENITAL UREAPLASM A AND MYCOPLASMA SPECIES BY PCR, FOR GENITAL, RECTAL, URINE SAMPLES UROGENITAL UREAPLASMA AND MYCOPLASMA SPECIES BY PCR, FOR GENITAL, RECTAL, URINE SAMPLES Lab Routine Vaginal discharge Vaginal irritation 12/12/2023 4:17 PM EDT [facility] Immunizations Immunization Date Immunization Notes Care Provider Lana [facility] 12-14-2023 influenza, seasonal, injectable, preservative free Dr. Ruiz Vega DO Work Phone: [facility] 12-14-2023 influenza virus vacc ine, unspecified formulation Janelle Marin MD Work Phone: [facility] 10-05-2022 Human Papillomavirus 9-valent vaccine Sommer Hernandez PA-C Work Phone: [facility] 12-28-2021 Covid (Pfizer) Dr. Ruiz Vega DO Work Phone: [facility] 12-28-2021 COVID-19 original vaccine, age 12+ yr, monovalent (PFIZER-BIONTECH - MARTINEZ TOP) Nurse [facility] 12-03-2021 Covid (Pfizer) Dr. Ruiz Vega DO Work Phone: [facility] 12-03-2021 COVID-19 original vaccine, age 12+ yr, monovalent (PFIZER-BIONTECH - MARTINEZ TOP) Nurse [facility] 06-12-2021 meningococcal polysaccharide (groups A, C, Y and W-135) diphtheria toxoid conjugate vaccine (MCV4P) Que Chavez MD Work Phone: [facility] Work Phone: 06-12-2021 tetanus toxoid, redu monique diphtheria toxoid, and acellular pertussis vaccine, adsorbed Que Chavez MD Work Phone: [facility] Work Phone: 06-12-2021 Meningococcal, MCV4, unspecified conjugate formulation(groups A, C, Y and W-135) Que Chavez MD Work Phone: [facility] Work Phone: 04-27-2019 Human Papillomavirus 9-valent vaccine Que Chavez MD Work Phone: [facility] 04-27-2019 influenza, injectabl e, quadrivalent, preservative free Que Chavez MD Work Phone: [facility] 04-27-2019 influenza virus vacc ine, unspecified formulation Sommer Hernandez PA-C Work Phone: [facility] 01-07-2010 hepatitis A vaccine, pediatric/adolescent dosage, 2 dose schedule Que Chavez MD Work Phone: [facility] Work Phone: 01-07-2010 influenza, seasonal, injectable Que Chavez MD Work Phone: [facility] 11-03-2009 poliovirus vaccine, inactivated Que Chavez MD Work Phone: [facility] 10-27-2009 diphtheria, tetanus toxoids and acellular pertussis vaccine Que Chavez MD Work Phone: [facility] 10-27-2009 measles, mumps, rube lla, and varicella virus vaccine Que Chavez MD Work Phone: [facility] 10-27-2009 poliovirus vaccine, unspecified formulation Que Chavez MD Work Phone: [facility] Work Phone: 12-03-2008 Diphtheria, tetanus toxoids and acellular pertussis vaccine, and poliovirus vaccine, inactivated Que Chavez MD Work Phone: [facility] Work Phone: 12-03-2008 influenza, seasonal, injectable Que Chavez MD Work Phone: [facility] 12-03-2008 measles, mumps and rubella virus vaccine Que Chavez MD Work Phone: [facility] Work Phone: 10-03-2006 diphtheria, tetanus toxoids and acellular pertussis vaccine Que Chavez MD Work Phone: [facility] Work Phone: 10-03-2006 haemophilus influenz ae type b vaccine, HbOC conjugate Que Chavez MD Work Phone: [facility] 10-03-2006 measles, mumps, rube lla, and varicella virus vaccine Que Chavez MD Work Phone: [facility] Work Phone: 10-03-2006 pneumococcal conjuga te vaccine, 7 valent Que Chavez MD Work Phone: [facility] Work Phone: 06-17-2005 diphtheria, tetanus toxoids and acellular pertussis vaccine Que Chavez MD Work Phone: [facility] Work Phone: 06-17-2005 haemophilus influenz ae type b vaccine, HbOC conjugate Que Chavez MD Work Phone: [facility] 06-17-2005 pneumococcal conjuga te vaccine, 7 valent Que Chavez MD Work Phone: [facility] Work Phone: 06-17-2005 poliovirus vaccine, inactivated Que Chavez MD Work Phone: [facility] Work Phone: 05-06-2005 DTaP-hepatitis B and poliovirus vaccine Que Chavez MD Work Phone: [facility] Work Phone: 05-06-2005 haemophilus influenz ae type b vaccine, HbOC conjugate Que Chavez MD Work Phone: [facility] 05-06-2005 pneumococcal conjuga te vaccine, 7 valent Que Chavez MD Work Phone: [facility] Work Phone: 2004 DTaP-hepatitis B and poliovirus vaccine Que Chavez MD Work Phone: [facility] Work Phone: 2004 haemophilus influenz ae type b vaccine, HbOC conjugate Que Chavez MD Work Phone: [facility] 2004 pneumococcal conjuga te vaccine, 7 valent Que Chavez MD Work Phone: [facility] Work Phone: 2004 hepatitis B vaccine, pediatric or pediatric/adolescent dosage Que Chavez MD Work Phone: [facility] Payers Date Payer Category Payer Self-pay 2022 Unknown [id number] 2021 Medicaid [employer] [id number] 2021-Present [phone] [facility] [address] [place] [id number] Medicaid [id number] 2021 Medicaid [id number] 2016 Medicaid [id number] 2016 Unknown [id number] Unknown [id number] Unknown [id number] Unknown [id number] Unknown [id number] Unknown [id number] Unknown [id number] Unknown [id number] Unknown [id number] Social History Date Type Detail Facility Start: 01-13-2021 End: 09-04-2024 Tobacco smoking status NHIS Never smoked tobacco [facility] Work Phone: Start: 01-13-2021 End: 10-28-2021 Tobacco use and exposure Smokeless tobacco non-user [facility] Work Phone: Start: 06-12-2021 End: 10-05-2024 Alcohol intake Current non-drinker of alcohol (finding) [facility] Start: 12-29-2017 End: 10-28-2021 Tobacco Comment Second hand smoke exposure [facility] Start: 2005 Sex Assigned At Female [facility] Start: 06-02-2021 End: 01-18-2022 Exposure to SARS-CoV-2 (event) Not sure [facility] Work Phone: Start: 07-13-2021 History SDOH Physical Activity DPW 2 [facility] Start: 07-13-2021 History SDOH Financial 4 [facility] Start: 07-13-2021 History SDOH Food Worry 1 [facility] Start: 10-05-2022 End: 08-23-2023 History of Social function [facility] Start: 10-05-2022 End: 08-23-2023 Tobacco use panel [facility] How hard is it for y ou to pay for the very basics like food, housing, medical care, and heating Not very hard [facility] (I/We) worried wheth er (my/our) food would run out before (I/we) got money to buy more. Never true [facility] In the past 12 month s, has lack of transportation kept you from medical appointments or from getting medications? No [facility] In the past 12 month s, was there a time when you were not able to pay the mortgage or rent on time? No [facility] Start: 12-29-2017 Gender identity Identifies as female gender (finding) [facility] Start: 12-29-2017 Sexual orientation Heterosexual (finding) [facility] Are you now , , , , never or living with a partner? Never [facility] How often to you hav e a drink containing alcohol? Never [facility] Do you feel stress - tense, restless, nervous, or anxious, or unable to sleep at night because your mind is troubled all the time - these days [OSQ] Not at all [facility] Start: 02-16-2024 Education 12 [facility] Start: 01-17-2024 [facility] Goals Date Patient Goal Desired Activity /State Personal health goal Mental Status Date Assessment Result Facility 09-04-2024 Cognitive function Awake;Alert;A ppropriate;Fol lows Commands [facility] Work Phone: Clinical Notes 08-09-2016 to [...] discussed with the Patient or Patient's Authorized Client Solutions Specialist. As applicable, any other physician, advance practice provider, medical student, or other health professional student that will be observing or involved in the sensitive examination for educational or training purposes was discussed with the Patient or Authorized Client Solutions Specialist. The Patient or Authorized Client Solutions Specialist has agreed to proceed with the sensitive [...] RTO in one week Delfina Watson APRN.CNM [facility] 10-05-2024 Note HNO ID: [id number] Author: DELFINA WATSON APRN.CNM Service: ? Author Type: Care Management Assistant Type: Progress Notes Filed: 10/05/2024 16:56 Note Text: MEKA- [facility] 10-05-2024 History of Presen t illness Narrative MEKA- documented in this encounter [facility] 10-05-2024 Miscellaneous Notes Formattin g of [...] discussed with the Patient or Patient's Authorized Client Solutions Specialist. As applicable, any other physician, advance practice provider, medical student, or other health professional student that will be observing or involved in the sensitive examination for educational or training purposes was discussed with the Patient or Authorized Client Solutions Specialist. The Patient or Authorized Client Solutions Specialist has agreed to proceed with the sensitive [...] Delfina Watson APRN.CNM documented in this encounter [facility] 10-05-2024 Instructions Karen Dimas MA - 10/05/2024 4:19 PM EDT SEQUENTIAL SCREENINGS The [facility] offers sequential screenings for women who [...] It will require an appointment with our automotive exhaust emissions technician. This is not an ultrasound performed [...] the above symptoms, contact our office at [phone] and ask to speak with a nurse. After hours, you can call doctors registry at [phone] OR call [facility] at [phone] and ask to have the doctor contact lens inspector paged. If you consider this an emergency, dial 9-1-1 or go to your nearest emergency department. NEED HELP? Are you dealing with a violent or abusive relationship? Are you a victim of rape or sexual assult? Call [facility] ([place]) 24 hour Crisis Hotline: 579.821.4788 or 716-659-2676. MANUAL Your Guide to a Healthy manual is now on-line. Visit [email or web address] [email or web address] to download your free copy documented in this encounter [facility] 09-25-2024 Progress note Formatting of t his note might be different from the original. KJ - S: Amirah denies LOF or vaginal bleeding. She reports some irregular ctxs. O: 38w0d, see flow sheet SENSITIVE EXAM: The sensitive examination was discussed with the Patient or Patient's Authorized Client Solutions Specialist. As applicable, any other physician, advance practice provider, medical student, or other health professional student that will be observing or involved in the sensitive examination for educational or training purposes was discussed with the Patient or Authorized Client Solutions Specialist. The Patient or Authorized Client Solutions Specialist has agreed to proceed with the sensitive examination. (Sensitive examination includes inspection and/or palpation of the breasts, pelvis, prostate and anorectal regions). A/P: Assessment & Plan Supervision of high risk in third trimester (HCC) Orders: URINE OB DIP B/O 38 weeks gestation of (HCC) Orders: URINE OB DIP B/O Reviewed labor & FM precautions Janelle Marin MD [facility] 09-25-2024 Miscellaneous Notes Formattin g of this note might be different from the original. KJ - S: Amirah denies LOF or vaginal bleeding. She reports some irregular ctxs. O: 38w0d, see flow sheet SENSITIVE EXAM: The sensitive examination was discussed with the Patient or Patient's Authorized Client Solutions Specialist. As applicable, any other physician, advance practice provider, medical student, or other health professional student that will be observing or involved in the sensitive examination for educational or training purposes was discussed with the Patient or Authorized Client Solutions Specialist. The Patient or Authorized Client Solutions Specialist has agreed to proceed with the sensitive examination. (Sensitive examination includes inspection and/or palpation of the breasts, pelvis, prostate and anorectal regions). A/P: Assessment & Plan Supervision of high risk in third trimester (HCC) Orders: URINE OB DIP B/O 38 weeks gestation of (HCC) Orders: URINE OB DIP B/O Reviewed labor & FM precautions Janelle Marin MD documented in this encounter [facility] 09-25-2024 Instructions Cassie Abad MA - 09/25/2024 2:00 PM EDT SEQUENTIAL SCREENINGS The [facility] offers sequential screenings for women who [...] It will require an appointment with our automotive exhaust emissions technician. This is not an ultrasound performed [...] the above symptoms, contact our office at [phone] and ask to speak with a nurse. After hours, you can call [facility] at [phone] OR call [facility] at [phone] and ask to have the doctor contact lens inspector paged. If you consider this an emergency, dial 9--1 or go to your nearest emergency department. NEED HELP? Are you dealing with a violent or abusive relationship? Are you a victim of rape or sexual assult? Call [facility] ([place]) 24 hour Crisis Hotline: 679.457.4268 or 428-126-6566. MANUAL Your Guide to a Healthy manual is now on-line. Visit [email or web address] [email or web address] to download your free copy documented in this encounter [facility] 09-18-2024 Progress note Formatting of t his note might be different from the original. SW- Pt doing well. No ctx, vb, lof. Good FM PE: Gen- NAD, well appearing Abd- Soft, gravid, NT See flowsheet A/p 37 wk gestation - GBS positive - Reviewed labor precautions - Weekly visits Alo Thompson DO [facility] 09-18-2024 Miscellaneous Notes Formattin g of this note might be different from the original. SW- Pt doing well. No ctx, vb, lof. Good FM PE: Gen- NAD, well appearing Abd- Soft, gravid, NT See flowsheet A/p 37 wk gestation - GBS positive - Reviewed labor precautions - Weekly visits Alo Thompson DO documented in this encounter [facility] 09-18-2024 Instructions Karen Dimas MA - 09/18/2024 1:22 PM EDT SEQUENTIAL SCREENINGS The [facility] offers sequential screenings for women who [...] It will require an appointment with our automotive exhaust emissions technician. This is not an ultrasound performed [...] the above symptoms, contact our office at [phone] and ask to speak with a nurse. After hours, you can call doctors registry at [phone] OR call [facility] at [phone] and ask to have the doctor contact lens inspector paged. If you consider this an emergency, dial 9-1-9 or go to your nearest emergency department. NEED HELP? Are you dealing with a violent or abusive relationship? Are you a victim of rape or sexual assult? Call [facility] ([place]) 24 hour Crisis Hotline: 371.544.4638 or 737-673-7959. MANUAL Your Guide to a Healthy manual is now on-line. Visit [email or web address] to download your free copy documented in this encounter [facility] 09-12-2024 Note HNO ID: [id number] Author: CASTILLO MCKENO MD Service: ? Author Type: Physician Type: Progress Notes Filed: 09/12/2024 10:52 Note Text: RR- VB No. LOF No. CTXS some BH, crampy. no regular ctxs. Movement: present. Other c/o: heartburn not relived w/ tums Medication list reviewed. SENSITIVE EXAM: The sensitive examination was discussed with the Patient or Patient's Authorized Client Solutions Specialist. As applicable, any other physician, advance practice provider, medical student, or other health professional student that will be observing or involved in the sensitive examination for educational or training purposes was discussed with the Patient or Authorized Client Solutions Specialist. The Patient or Authorized Client Solutions Specialist has agreed to proceed with the sensitive [...] high risk in third trimester ([facility]) Orders: URINE OB DIP B/O Obesity affecting in third trimester, unspecified obesity type ([facility]) Orders: URINE OB DIP B/O Heartburn during in third trimester ([facility]) rx pepcid reviewed urine dip. Brief US confirms vtx f/u 1 week or prn Castillo Mckeon M.D. [facility] 09-12-2024 History of Presen t illness Narrative RR- VB No. LOF No. CTXS some BH, crampy. no regular ctxs. Movement: present. Other c/o: heartburn not relived w/ tums Medication list reviewed. SENSITIVE EXAM: The sensitive examination was discussed with the Patient or Patient's Authorized Client Solutions Specialist. As applicable, any other physician, advance practice provider, medical student, or other health professional student that will be observing or involved in the sensitive examination for educational or training purposes was discussed with the Patient or Authorized Client Solutions Specialist. The Patient or Authorized Client Solutions Specialist has agreed to proceed with the sensitive [...] high risk in third trimester ([facility]) Orders: URINE OB DIP B/O Obesity affecting in third trimester, unspecified obesity type ([facility]) Orders: URINE OB DIP B/O Heartburn during in third trimester ([facility]) rx pepcid reviewed urine dip. Brief US confirms vtx f/u 1 week or prn Castillo Mckeon M.D. documented in this encounter [facility] 09-12-2024 Instructions Leah Villaseñor MA - 09/12/2024 10:14 AM EDT SEQUENTIAL SCREENINGS The [facility] offers sequential screenings for women who [...] It will require an appointment with our automotive exhaust emissions technician. This is not an ultrasound performed [...] the above symptoms, contact our office at [phone] and ask to speak with a nurse. After hours, you can call doctors registry at [phone] OR call [facility] at [phone] and ask to have the doctor contact lens inspector paged. If you consider this an emergency, dial 9-1-7 or go to your nearest emergency department. NEED HELP? Are you dealing with a violent or abusive relationship? Are you a victim of rape or sexual assult? Call [facility] ([place]) 24 hour Crisis Hotline: 493.659.6622 or 001-436-2626. MANUAL Your Guide to a Healthy manual is now on-line. Visit [email or web address] to download your free copy documented in this encounter [facility] 09-04-2024 Telephone encount er Note Noted. Thanks! Janelle Marin MD [facility] 09-04-2024 Miscellaneous Notes Formattin g of this note might be different from the original. Noted. Thanks! Janelle Marin MD Spoke with in ED. All work up normal. Patient D/Cd home. Delfina Watson APRN.CNM documented in this encounter [facility] 09-04-2024 Telephone encount er Note Spoke with in ED. All work up normal. Patient D/Cd home. Delfina Watson APRN.CNM [facility] 09-04-2024 Discharge summary [facility] 09-04-2024 Radiology Diagnostic study note [facility] Imaging Services [address] [place] [address] CTA Chest W/WO Contrast MR#: [id number] Acct: [id number] Name: AMIRAH WOODARD Rep #: [id number] : 2005 F 19 From: Gatito Moreno MD PCP: Dr. Ruiz Vega, DO Status: RE G ER Study:CTA Chest W/WO Contrast Date of Exam: 09/04/24 Exam# [id number] Ordering Dr: Raisa Richardson MD PROCEDURE: CTA [...] dissection No acute pulmonary process Reading Location: [id number] CC: Dr. Conrado Richardson MD; Dr. Ruiz Vega, DO ~ [employer]: Signed [facility] 09-04-2024 Telephone encounter Note Patient should be in ED at this time. No concern about urine dip. Janelle Marin MD [facility] 09-04-2024 Miscellaneous Notes Patient should be in ED at this time. No concern about urine dip. Janelle Marin MD documented in this encounter [facility] 09-04-2024 Progress note Formatting of t [...] Orders: URINE OB DIP B/O Patient to [facility] for eval of tachycardia and Shortness of Breath. No evidence labor. Janelle Marin MD [facility] 09-04-2024 Miscellaneous Notes KJ - S: Patient seen urgently for heart racing and Shortness of Breath that started this morning. Denies fevers/chils. Amirah denies LOF, contractions or vaginal bleeding. She reports stable cramps. O: 35w0d, see flow sheet SENSITIVE EXAM: Sensitive exam not performed. A/P: Assessment & Plan Supervision of high risk in third trimester ([facility]) Orders: URINE OB DIP B/O Obesity affecting in third trimester, unspecified obesity type ([facility]) Orders: URINE OB DIP B/O 35 weeks gestation of ([facility]) Orders: URINE OB DIP B/O Patient to [facility] for eval of tachycardia and Shortness of Breath. No evidence labor. Janelle Marin MD documented in this encounter [facility] 09-04-2024 Instructions Cassie Abad MA - 09/04/2024 9:30 AM EDT SEQUENTIAL SCREENINGS The [facility] offers sequential screenings for women who [...] It will require an appointment with our automotive exhaust emissions technician. This is not an ultrasound performed [...] the above symptoms, contact our office at [phone] and ask to speak with a nurse. After hours, you can call doctors registry at [phone] OR call [facility] at [phone] and ask to have the doctor contact lens inspector paged. If you consider this an emergency, dial 9-1- or go to your nearest emergency department. NEED HELP? Are you dealing with a violent or abusive relationship? Are you a victim of rape or sexual assult? Call [facility] ([place]) 24 hour Crisis Hotline: 903.741.1254 or 336-348-7865. MANUAL Your Guide to a Healthy manual is now on-line. Visit [email or web address] See to download your free copy documented in this encounter [facility] 08-30-2024 Progress note Formatting of t his note might be different from the original. S: Amirah Woodard is a 19 year old female who presents at 34 weeks gestation for a routine visit. Positive movements. 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 Requesting to [...] GERRI with GBS La Del Castillo APRN.CNM [facility] Work Phone: 08-30-2024 Miscellaneous Notes S: Amirah Woodard is a 19 year old female who presents at 34 weeks gestation for a routine visit. Positive movements. 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 Requesting to [...] Del Castillo APRN.CNM documented in this encounter [facility] 08-30-2024 Instructions La Del Castillo APRN.CNM - 08/30/2024 2:46 PM EDT Images from the original note were not included. SEQUENTIAL SCREENINGS The [facility] offers sequential screenings for women who [...] It will require an appointment with our automotive exhaust emissions technician. This is not an ultrasound performed [...] make an easy pie crust in the mexican food machine tender. Add soaked dates to homemade nut butter for a sweet treat. Add dates to casandra homemade salad dressing. Add dates during easily with these yummy (paleo friendly) bars made from dates. What Is Red Raspberry [place] Tea? Red raspberry leaf tea comes from [...] , and too. How Much Red Raspberry [place] Tea to Drink? With your doctor or tour conductor s approval, start with 1 cup of [...] because of uterine cramping. Is Red Raspberry [place] Tea the Same as Raspberry [place] Tea? How About Plain Old Raspberry Tea? Sometimes. You really need to look at the ingredients to be sure. Note that there is no difference between red raspberry leaf and raspberry leaf. BodBot or Discomixdownload.com Raspberry [place] Tea are two good brands. The red [...] of RRLT outlined in this article. [employer] www.[employer] I named this 'circuit' after my friend [...] sideways, 2 at a time, (have a aquatic instructor downstairs of you!), take a walk outside [...] the pelvis. Katey Harris: Circuit Creator - www.Loop Surveyundbirthcollective.[employer] Nicolette Heaton, LEONEL, BDT (MARIANN), LCCE, FACCE: Supporting Content - www.FlayrjazPolaris Wirelessdayana.[employer] Lindsey Griffith: Photography - www.MyFeelBackwInnoveer [employer] (now [employer]) Meghna Green CD/CDT (NICHOLAS): Print and Core Shaper - www.[employer] Masterminds [employer] www.[employer] SIGNS AND SYMPTOMS OF LABOR 1. Contractions every 10 minutes or more often 2. Clear, pink, or brownish fluid (water) leaking from vagina 3. Feeling that baby is pushing down, pressure 4. Low, dull backache 5. Cramps that feel like a period 6. Cramps with or without diarrhea If you notice any of the above symptoms, contact our office at [phone] and ask to speak with a nurse. After hours, you can call doctors registry at [phone] OR call [facility] at [phone] and ask to have the doctor contact lens inspector paged. If you consider this an emergency, dial 9-1-2 or go to your nearest emergency department. NEED HELP? Are you dealing with a violent or abusive relationship? Are you a victim of rape or sexual assult? Call [facility] ([place]) 24 hour Crisis Hotline: 752.290.5022 or 535-495-6682. MANUAL Your Guide to a Healthy manual is now on-line. Visit [email or web address] See to download your free copy documented in this encounter [facility] 08-16-2024 Progress note Formatting of t [...] high risk in third trimester ([facility]) - ICD9: V23.9, ICD10: O09.93 (primary diagnosis) - Continue PNV and LDA 2. 32 weeks gestation of ([facility]) - ICD9: V22.2, ICD10: Z3A.32 - Discussed assistant child care teacher, support band, gentle stretching for musculoskeletal pain - Discussed signs of Florin Tan - increase hydration 3. Obesity affecting in third trimester, unspecified obesity type ([facility]) - ICD9: 649.13, ICD10: O99.213 - Pre BMI 31 PTL precautions and kick counts reviewed. RTO in 2 weeks or sooner as needed. Lindsey Moreno APRN.GLASS SCULLION [facility] 08-16-2024 Miscellaneous Notes EH - S: [...] high risk in third trimester ([facility]) - ICD9: V23.9, ICD10: O09.93 (primary diagnosis) - Continue PNV and LDA 2. 32 weeks gestation of ([facility]) - ICD9: V22.2, ICD10: Z3A.32 - Discussed assistant child care teacher, support band, gentle stretching for musculoskeletal pain - Discussed signs of Florin Tan - increase hydration 3. Obesity affecting in third trimester, unspecified obesity type (HCC) - ICD9: 649.13, ICD10: O99.213 - Pre BMI 31 PTL precautions and kick counts reviewed. RTO in 2 weeks or sooner as needed. Lindsey Moreno APRN.GLASS SCULLION documented in this encounter [facility] 08-16-2024 Instructions Yumiko Meza MA - 08/16/2024 2:22 PM EDT SEQUENTIAL SCREENINGS The [facility] offers sequential screenings for women who [...] It will require an appointment with our automotive exhaust emissions technician. This is not an ultrasound performed [...] the above symptoms, contact our office at [phone] and ask to speak with a nurse. After hours, you can call doctors registry at [phone] OR call [facility] at [phone] and ask to have the doctor contact lens inspector paged. If you consider this an emergency, dial or go to your nearest emergency department. NEED HELP? Are you dealing with a violent or abusive relationship? Are you a victim of rape or sexual assult? Call [facility] ([place]) 24 hour Crisis Hotline: 658.180.1012 or 290-325-6165. MANUAL Your Guide to a Healthy manual is now on-line. Visit [email or web address] See to download your free copy documented in this encounter [facility] 08-13-2024 Note HNO ID: [id number] Author: RUIZ VEGA, DO Service: ? Author [...] Rhonda. - Planning a vaginal delivery at [place]. - Taking vitamins; denies nausea or emesis. 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 Recording using GiftMe software for draft documentation of the visit was discussed with the patient/authorized automobile sales representative; all questions welcomed and answered. Patient/authorized automobile sales representative agreed to proceed [facility] 08-13-2024 History of Present illness Narrative Pennie Woodard is a 19-year-old female, 1 para 0, presenting for an initial visit and evaluation of -related symptoms. : - Currently 31-32 weeks gestation with a male fetus; ANA: October 09. - First . - care managed by Dr. Mckeon and team; next appointment scheduled with Lindsey and La. - Planning a vaginal delivery at [place]. - Taking vitamins; denies nausea or emesis. 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 Recording using [employer] software for draft documentation of the visit was discussed with the patient/authorized automobile sales representative; all questions welcomed and answered. Patient/authorized automobile sales representative agreed to proceed documented in this encounter [facility] 08-08-2024 Telephone encounter Note Order signed and faxed. Caroline Mora RN [facility] 08-08-2024 Miscellaneous Notes Order signed and faxed. Caroline Mora RN Breast pump request received from [employer]. Order to provider to sign. Caroline Mora RN documented in this encounter [facility] 08-06-2024 Telephone encounter Note Breast pump request received from [employer]. Order to provider to sign. Caroline Mora RN [facility] 08-03-2024 Telephone encounter Note 3rd risk assessment form submitted 08/03/24 Tio Hutchison RN [facility] 08-03-2024 Miscellaneous Notes 3rd risk assessment form submitted 08/03/24 Tio Hutchison RN documented in this encounter [facility] 08-01-2024 Progress note Formatting of t [...] unspecified seasonality, unspecified trigger Castillo Mckeon M.D. [facility] 08-01-2024 Miscellaneous Notes RR- VB No. [...] high risk in third trimester ([facility]) Orders: COMPLETE BLOOD COUNT AND DIFFERENTIAL; Future [...] Castillo Mckeon M.D. documented in this encounter [facility] 07-20-2024 Note HNO ID: [id number] Author: LINDSEY MORENO APRN.GLASS SCULLION Service: ? Author Type: Nurse Practitioner Type: [...] high risk in third trimester ([facility]) - ICD9: V23.9, ICD10: O09.93 (primary diagnosis) - Continue PNV and LDA 2. 28 weeks gestation of ([facility]) - ICD9: V22.2, ICD10: Z3A.28 - 1 hour GCT, CBC, and RPR today - Rh positive - Declines TDAP - LARC form reviewed and signed. Declines. - Depression screen negative - Opioid screen negative - plan form discussed and given to Amirah - Reviewed how to pre register through [facility] - Planning Paragard during period 3. Obesity affecting in third trimester, unspecified obesity type ([facility]) - ICD9: 649.13, ICD10: O99.213 - Pre BMI 32 4. Vaginal discharge during in third trimester ([facility]) - ICD9: 646.83, 623.5, ICD10: O26.893, N89.8 - BACTERIAL VAGINOSIS NAAT - FRANCO/TRICHOMONAS NAAT PTL precautions and kick counts reviewed. RTO in 2 weeks or sooner as needed. Lindsey Moreno APRN.GLASS SCULLION [facility] 07-20-2024 History of Present illness Narrative EH [...] high risk in third trimester ([facility]) - ICD9: V23.9, ICD10: O09.93 (primary diagnosis) [...] - Reviewed how to pre register through [facility] - Planning Paragard during period 3. Obesity affecting in third trimester, unspecified obesity type ([facility]) - ICD9: 649.13, ICD10: O99.213 - Pre BMI 32 4. Vaginal discharge during in third trimester ([facility]) - ICD9: 646.83, 623.5, ICD10: O26.893, N89.8 - BACTERIAL VAGINOSIS NAAT - FRANCO/TRICHOMONAS NAAT PTL precautions and kick counts reviewed. RTO in 2 weeks or sooner as needed. Lindsey Moreno APRN.GLASS SCULLION documented in this encounter [facility] 07-20-2024 Instructions Yumiko Meza MA - 07/20/2024 8:16 AM EDT SEQUENTIAL SCREENINGS The [facility] offers sequential screenings for women who [...] It will require an appointment with our automotive exhaust emissions technician. This is not an ultrasound performed [...] the above symptoms, contact our office at [phone] and ask to speak with a nurse. After hours, you can call doctors registry at [phone] OR call [facility] at [phone] and ask to have the doctor contact lens inspector paged. If you consider this an emergency, dial 9-1-7 or go to your nearest emergency department. NEED HELP? Are you dealing with a violent or abusive relationship? Are you a victim of rape or sexual assult? Call [facility] ([place]) 24 hour Crisis Hotline: 711.311.2735 or 587-554-2966. MANUAL Your Guide to a Healthy manual is now on-line. Visit [email or web address] See to download your free copy documented in this encounter [facility] 07-19-2024 Telephone encounter Note noted. thanks. Castillo Mckeon MD [facility] Work Phone: 07-19-2024 Miscellaneous Notes noted. [...] Kia Sheldon, JIA documented in this encounter [facility] 07-19-2024 Telephone encounter Note 28w2d Patient [...] H&P faxed to L&D. Kia Sheldon, RN [facility] 07-09-2024 Telephone encounter Note agree [facility] Work Phone: 07-09-2024 Miscellaneous Notes agree documented in this encounter [facility] 06-21-2024 Progress note Formatting of t [...] before next visit La Del Castillo APRN.CNM [facility] 06-21-2024 Miscellaneous Notes S: Amirah Woodard [...] FHT via doppler before next visit La Dle Castillo APRN.CNM documented in this encounter [facility] 06-21-2024 Instructions Shree Santos MA - 06/21/2024 1:02 PM EDT SEQUENTIAL SCREENINGS The [facility] offers sequential screenings for women who [...] It will require an appointment with our automotive exhaust emissions technician. This is not an ultrasound performed [...] the above symptoms, contact our office at [phone] and ask to speak with a nurse. After hours, you can call [employer] registry at [phone] OR call [facility] at [phone] and ask to have the doctor contact lens inspector paged. If you consider this an emergency, dial 11-05-3 or go to your nearest emergency department. NEED HELP? Are you dealing with a violent or abusive relationship? Are you a victim of rape or sexual assult? Call [facility] ([place]) 24 hour Crisis Hotline: 442.273.7535 or 582-180-8462. MANUAL Your Guide to a Healthy manual is now on-line. Visit [email or web address] See to download your free copy documented in this encounter [facility] 06-19-2024 Progress note Formatting of t [...] REFLEX PANEL; Future Obesity in ([facility]) Screening for diabetes mellitus Orders: GESTATIONAL GLUCOSE SCREEN, 1-HOUR, 50 GRAM, NON-FASTING; Future Advised on musculoskeletal pain in . Discussed if any CP/SOB should call immediately. Janelle Marin MD [facility] 06-19-2024 Miscellaneous Notes KJ - S: [...] REFLEX PANEL; Future Obesity in ([facility]) Screening for diabetes mellitus Orders: GESTATIONAL GLUCOSE SCREEN, 1-HOUR, 50 GRAM, NON-FASTING; Future Advised on musculoskeletal pain in . Discussed if any CP/SOB should call immediately. Janelle Marin MD documented in this encounter [facility] 06-19-2024 Instructions Yumiko Meza MA - 06/19/2024 2:34 PM EDT SEQUENTIAL SCREENINGS The [facility] offers sequential screenings for women who [...] It will require an appointment with our automotive exhaust emissions technician. This is not an ultrasound performed [...] the above symptoms, contact our office at [phone] and ask to speak with a nurse. After hours, you can call doctors registry at [phone] OR call [facility] at [phone] and ask to have the doctor contact lens inspector paged. If you consider this an emergency, dial 9-- or go to your nearest emergency department. NEED HELP? Are you dealing with a violent or abusive relationship? Are you a victim of rape or sexual assult? Call [facility] ([place]) 24 hour Crisis Hotline: 494.224.4524 or 403-425-6596. MANUAL Your Guide to a Healthy manual is now on-line. Visit [email or web address] cyGuide to download your free copy documented in this encounter [facility] 06-06-2024 Progress note Formatting of t [...] scheduled OB visit La Del Castillo APRN.CNM [facility] 06-06-2024 Miscellaneous Notes S: Amirah Woodard [...] Del Castillo APRN.CNM documented in this encounter [facility] 06-06-2024 Shree Beltran MA - 06/06/2024 1:06 PM EDT SEQUENTIAL SCREENINGS The [facility] offers sequential screenings for women who [...] It will require an appointment with our automotive exhaust emissions technician. This is not an ultrasound performed [...] the above symptoms, contact our office at [phone] and ask to speak with a nurse. After hours, you can call doctors registry at [phone] OR call [facility] at [phone] and ask to have the doctor contact lens inspector paged. If you consider this an emergency, dial 1-0- or go to your nearest emergency department. NEED HELP? Are you dealing with a violent or abusive relationship? Are you a victim of rape or sexual assult? Call [facility] ([place]) 24 hour Crisis Hotline: 893.217.5966 or 140-680-9304. MANUAL Your Guide to a Healthy manual is now on-line. Visit [email or web address] See to download your free copy documented in this encounter [facility] 06-06-2024 Telephone encounter Note 22w1d Patient [...] today and patient accepted. Vivian Adams RN [facility] 06-06-2024 Miscellaneous Notes 22w1d Patient called [...] Vivian Adams RN documented in this encounter [facility] 05-28-2024 Telephone encounter Note 2nd risk assessment form submitted 05/28/24 Tio Hutchison RN [facility] 05-28-2024 Miscellaneous Notes 2nd risk assessment form submitted 05/28/24 Tio Hutchison RN documented in this encounter [facility] 05-25-2024 Progress note Formatting of t [...] ICD9: V22.2, ICD10: Z3A.20 Kia Lucero MD [facility] 05-25-2024 Miscellaneous Notes S: Amirah Woodard [...] Kia Lucero MD documented in this encounter [facility] 05-25-2024 Instructions Cassie Abad MA - 05/25/2024 2:03 PM EDT SEQUENTIAL SCREENINGS The [facility] offers sequential screenings for women who [...] It will require an appointment with our automotive exhaust emissions technician. This is not an ultrasound performed [...] the above symptoms, contact our office at [phone] and ask to speak with a nurse. After hours, you can call doctors registry at [phone] OR call [facility] at [phone] and ask to have the doctor contact lens inspector paged. If you consider this an emergency, dial 9-1-8 or go to your nearest emergency department. NEED HELP? Are you dealing with a violent or abusive relationship? Are you a victim of rape or sexual assult? Call [facility] ([place]) 24 hour Crisis Hotline: 734.529.1545 or 314-619-9329. MANUAL Your Guide to a Healthy manual is now on-line. Visit [email or web address] See to download your free copy documented in this encounter [facility] 05-01-2024 Telephone encounter Note Left message for patient to call office. Kia Sheldon RN [facility] 05-01-2024 Miscellaneous Notes Left message for patient to call office. Kia Sheldon, RN Noted & agree with recommendations. If patient has increased LOF tonight I recommend going to [facility]. Janelle Marin MD 17w0d Calling concerned about [...] Vivian Adams RN documented in this encounter [facility] 05-01-2024 Telephone encounter Note Noted & agree with recommendations. If patient has increased LOF tonight I recommend going to [facility]. Janelle Marin MD [facility] Work Phone: 05-01-2024 Telephone encounter Note [...] with it. Please advise. Vivian Adams RN [facility] 04-27-2024 Progress note Formatting of t [...] RTO in 4 weeks Delfina Watson APRN.CNM [facility] 04-27-2024 Miscellaneous Notes MEKA-S: Amirah Woodard [...] Delfina Watson APRN.CNM documented in this encounter [facility] 04-27-2024 Instructions Shree Santos MA - 04/27/2024 1:04 PM EST SEQUENTIAL SCREENINGS The [facility] offers sequential screenings for women who [...] It will require an appointment with our automotive exhaust emissions technician. This is not an ultrasound performed [...] the above symptoms, contact our office at [phone] and ask to speak with a nurse. After hours, you can call doctors registry at [phone] OR call [facility] at [phone] and ask to have the doctor contact lens inspector paged. If you consider this an emergency, dial 9-1-1 or go to your nearest emergency department. NEED HELP? Are you dealing with a violent or abusive relationship? Are you a victim of rape or sexual assult? Call [facility] ([facility] 24 hour Crisis Hotline: 365.231.3815 or 155-482-7651. MANUAL Your Guide to a Healthy manual is now on-line. Visit [email or web address] See to download your free copy documented in this encounter [facility] 04-13-2024 Telephone encounter Note Patient notified and voiced understanding. Caroline Mora RN [facility] 04-13-2024 Miscellaneous Notes Patient notified and [...] Marisela Lopez RN documented in this encounter [facility] 04-13-2024 Telephone encounter Note Agree with plan of care. May try wearing compression stockings if on feet as well. This can help with blood flow back to to heart/head. La Del Castillo APRN.CNM [facility] Work Phone: 04-13-2024 Telephone encounter Note 14w3d [...] until 04/27/24. Please advise. Marisela Lopez, RN [facility] 04-10-2024 Telephone encounter Note Refill provided. Has adult medicine appointment in August. Thanks. Josiane Goodwin APRN.GLASS SCULLION [facility] 04-10-2024 Miscellaneous Notes Refill provided. Has adult medicine appointment in August. Thanks. Joisane Goodwin APRN.GL[employer] SCULLION Last [facility]: 10/31/2023 Verify RX Benefits Completed [...] Eloisa Suarez LPN documented in this encounter [facility] 04-10-2024 Telephone encounter Note Last [facility]: 10/31/2023 Verify RX Benefits Completed Last [...] season) due on 11/06/2023 Eloisa Suarez LPN [facility] 04-03-2024 Progress note Formatting of t [...] RTO in 4 weeks Delfina Watson APRN.CNM [facility] 04-03-2024 Miscellaneous Notes MEKAUrbanoS: Amirah Woodard [...] Delfina Watson APRN.CNM documented in this encounter [facility] 04-03-2024 Instructions Leah Villaseñor MA - 04/03/2024 3:53 PM EST SEQUENTIAL SCREENINGS The [facility] offers sequential screenings for women who [...] It will require an appointment with our automotive exhaust emissions technician. This is not an ultrasound performed [...] the above symptoms, contact our office at [phone] and ask to speak with a nurse. After hours, you can call doctors registry at [phone] OR call [facility] at [phone] and ask to have the doctor contact lens inspector paged. If you consider this an emergency, dial 91-4 or go to your nearest emergency department. NEED HELP? Are you dealing with a violent or abusive relationship? Are you a victim of rape or sexual assult? Call [facility] [place] ([place]) 24 hour Crisis Hotline: 294.334.5324 or 210-754-4644. MANUAL Your Guide to a Healthy manual is now on-line. Visit [email or web address] See to download your free copy documented in this encounter [facility] 03-28-2024 Progress note Formatting of t [...] culture collected and submitted. RTO 04/03 routine [facility] Clinical yeast infection - tx monistat. Duncan Munguia MD [facility] Work Phone: 03-28-2024 Miscellaneous Notes Primigravida at 12 weeks c/o vaginal itching and burning subsequent to a course of amoxicillin for a sinus infection. Sx began 5 days after beginning tx. Denies vaginal bleeding and slightly increased discharge Pelvic exam. 12 week uterus. moderate clumpy white discharge. Yeast culture collected and submitted. RTO 04/03 routine [facility] Clinical yeast infection - tx monistat. Duncan Munguia MD documented in this encounter [facility] 03-28-2024 Instructions Yumiko Meza MA - 03/28/2024 9:08 AM EST SEQUENTIAL SCREENINGS The [facility] offers sequential screenings for women who [...] It will require an appointment with our automotive exhaust emissions technician. This is not an ultrasound performed [...] the above symptoms, contact our office at [phone] and ask to speak with a nurse. After hours, you can call doctors registry at [phone] OR call [facility] at [phone] and ask to have the doctor contact lens inspector paged. If you consider this an emergency, dial -0 or go to your nearest emergency department. NEED HELP? Are you dealing with a violent or abusive relationship? Are you a victim of rape or sexual assult? Call [facility] ([facility] 24 hour Crisis Hotline: 377.884.4601 or 034-928-1200. MANUAL Your Guide to a Healthy manual is now on-line. Visit [email or web address] to download your free copy documented in this encounter [facility] 03-22-2024 Telephone encounter Note Patient notified and voiced understanding. Caroline Mora RN [facility] 03-22-2024 Miscellaneous Notes Patient notified and voiced understanding. Caroline Mora RN Yes. La Del Castillo APRN.CNM Patient 11w2d calling with questions in regards to medication she was prescribed for a sinus infection. Patient was prescribed Amoxicillin 1000 mg BID. Patient wanting to know if that dosage is ok with . Caroline Mora RN documented in this encounter [facility] 03-22-2024 Telephone encounter Note Yes. La Del Castillo APRN.CNM [facility] Work Phone: 03-22-2024 Telephone encounter Note Patient 11w2d calling with questions in regards to medication she was prescribed for a sinus infection. Patient was prescribed Amoxicillin 1000 mg BID. Patient wanting to know if that dosage is ok with . Caroline Mora RN [facility] 03-19-2024 Note HNO ID: [id number] Author: JOSIANE GOODWIN APRN.GLASS SCULLION Service: ? Author Type: Nurse Practitioner Type: [...] provider while in office today. Josiane Goodwin APRN.[facility] 03-19-2024 History of Present illness Narrative [...] Josiane Goodwin APRN.JOSELYN documented in this encounter [facility] 03-13-2024 Note HNO ID: [id number] Author: ROBERTO POWERS PA-C Service: ? Author Type: Physician Infection Control Nurse Type: Progress Notes Filed: 03/13/2024 12:33 Note [...] the patient was advised to see her HEALTH ADMINISTRATOR for further evaluation and management. CLINICAL IMPRESSION: Sore Throat ASSESSMENT/PLAN: 1. Sore throat - ICD9: 462, ICD10: J02.9 - STREP A MOLECULAR (POC) Roberto Powers PA-C [facility] 03-13-2024 History of Present illness Narrative This note was created using [employer]. Subjective Amirah Woodard is a 18 year [...] the patient was advised to see her HEALTH ADMINISTRATOR for further evaluation and management. CLINICAL IMPRESSION: Sore Throat ASSESSMENT/PLAN: 1. Sore throat - ICD9: 462, ICD10: J02.9 - STREP A MOLECULAR (POC) Roberto Powers PA-C documented in this encounter [facility] 03-10-2024 Telephone encounter Note Reason for Call: 9 weeks , dizziness and felt like she would pass out, vision dark vomiting Denies fever Outcome: Patient warm conferenced to main campus chief telephone operator to assist patient in connecting patient to contact lens inspector provider for ENVIRONMENTAL COMMUNICATIONS SPECIALIST Nilda Stiles HEEL WASHER STRINGING MACHINE OPERATOR. [facility] 03-10-2024 Miscellaneous Notes Reason for Call: 9 weeks , dizziness and felt like she would pass out, vision dark vomiting Denies fever Outcome: Patient warm conferenced to main campus chief telephone operator to assist patient in connecting patient to contact lens inspector provider for ENVIRONMENTAL COMMUNICATIONS SPECIALIST Nilda Martínezf HEEL WASHER STRINGING MACHINE OPERATOR. documented in this encounter [facility] 02-23-2024 Telephone encounter Note 1st risk assessment form submitted 02/23/24. Pauline Au RN [facility] 02-23-2024 Miscellaneous Notes 1st risk assessment form submitted 02/23/24. Pauline Au RN documented in this encounter [facility] 02-16-2024 Note HNO ID: [id number] Author: NILDA STILES APRN.JOSELYN Service: ? Author Type: Nurse Practitioner Type: Progress Notes Filed: 02/21/2024 09:02 Note Text: Patient declined deliverer outside. INITIAL OB ASSESSMENT HPI: Amirah is a [...] for delivery: Have you had a prior sepncer between 20w and 36w6d? No How many [...] (FLONASE) 50 mcg/actuation nasal spray Use 1 [place] in each nostril once daily. (Patient not [...] Impaired Vision, Ringing (more content not included)... [facility] 02-16-2024 History of Present illness Narrative Patient declined deliverer outside. INITIAL OB ASSESSMENT HPI: Amirah is a [...] (FLONASE) 50 mcg/actuation nasal spray Use 1 [place] in each nostril once daily. (Patient not [...] discussed with the Patient or Patient's Authorized Client Solutions Specialist. As applicable, any other physician, advance practice provider, medical student, or other health professional student that will be observing or involved in the sensitive examination for educational or training purposes was discussed with the Patient or Authorized Client Solutions Specialist. The Patient or Authorized Client Solutions Specialist has agreed to proceed with the sensitive [...] Your guide to a health and the Lens Assorter. Reviewed midwifery and surgical endoscopist services that are available. 2) Screening: Hemoglobin [...] Nilda Stiles APRN.CNP documented in this encounter [facility] 02-16-2024 Instructions Kelly Fields LPN - 02/16/2024 3:31 PM EST Please select the following link to access the [facility] Your Guide to a Healthy . [email or web address] Please select the following link to access the [facility] Your Guide to a Healthy . [email or web address] documented in this encounter [facility] 01-30-2024 Note HNO ID: [id number] Author: NILDA STILES APRN.GLASS SCULLION Service: ? Author Type: Nurse Practitioner Type: Progress Notes Filed: 01/30/2024 14:33 Note Text: Amirah Woodard is a 18 year old female who presents for problem visit testing, reported +hpt 01/27/2024, 01/03/2024. HPI: positive test- some cramping no bleeding LMP 01/03/24 OB History T0 L0 SAB0 IAB0 Ectopic0 Multiple0 Live Births0 Rounding Machine Operator History LMP: 12/09/2023 (Exact Date), Having periods Age at Menarche: Age at First : Age at Menopause: Rounding Machine Operator History Comments: Sexual Activity: Yes; Male Contraception: [...] (FLONASE) 50 mcg/actuation nasal spray Use 1 [place] in each nostril once daily. loratadine (CLARITIN) [...] NOB appt Review miscarriage precautions Nilda Stiles, HEEL WASHER STRINGING MACHINE OPERATOR.GLASS SCULLION Medical Decision Making: Problems: Low: Acute, uncomplicated illness or injury Data: Unique test(s) ordered: 1 Risk: Low: Low risk from testing/treatment Medical Decision Making Level: 3 - Low [facility] 01-30-2024 History of Present illness Narrative Amirah Woodard is a 18 year old female who presents for problem visit testing, reported +hpt 01/27/2024, 01/03/2024. HPI: positive test- some cramping no bleeding LMP 01/03/24 OB History T0 L0 SAB0 IAB0 Ectopic0 Multiple0 Live Births0 Rounding Machine Operator History LMP: 12/09/2023 (Exact Date), Having periods Age at Menarche: Age at First : Age at Menopause: Rounding Machine Operator History Comments: Sexual Activity: Yes; Male Contraception: [...] (FLONASE) 50 mcg/actuation nasal spray Use 1 [place] in each nostril once daily. loratadine (CLARITIN) [...] 3 - Low documented in this encounter [facility] 12-15-2023 Telephone encounter Note Patient notified. [...] Pharmacy Information Pharmacy Address Telephone [facility] [address] [place] [address] [facility] 12-15-2023 Miscellaneous Notes Patient notified. Vivian [...] Pharmacy Information Pharmacy Address Telephone [facility] [address] [place] [address] Mycoplasma positive. Moxifloxacin x 7 days, then Doxy to follow x 7 days. Partner should be treated. Nilda Stiles APRN.CNP documented in this encounter [facility] 12-15-2023 Telephone encounter Note Mycoplasma positive. Moxifloxacin x 7 days, then Doxy to follow x 7 days. Partner should be treated. Nilda Stiles APRN.JOSELYN [facility] 12-12-2023 Note HNO ID: [id number] Author: NILDA STILES APRN.CNP Service: ? Author Type: Nurse Practitioner Type: Progress Notes Filed: 12/12/2023 16:43 Note Text: Patient declined deliverer outside. Amirah Woodard is a 18 year old [...] L0 SAB0 IAB0 Ectopic0 Multiple0 Live Births0 Rounding Machine Operator History LMP: 10/08/2023 (Exact Date), Having periods Age at Menarche: Age at First : Age at Menopause: Rounding Machine Operator History Comments: Sexual Activity: Yes; Male Contraception: [...] (FLONASE) 50 mcg/actuation nasal spray Use 1 [place] in each nostril once daily. loratadine (CLARITIN) [...] discussed with the Patient or Patient's Authorized Client Solutions Specialist. As applicable, any other physician, advance practice provider, medical student, or other health professional student that will be observing or involved in the sensitive examination for educational or training purposes was discussed with the Patient or Authorized Client Solutions Specialist. The Patient or Authorized Client Solutions Specialist has agreed to proceed with the sensitive examination. (Sensitive examination includes inspection and/or palpation of the breasts, pelvis, prostate and anorectal regions). EXAM: LMP 10/08/2023 GENERAL: pleasant, female in no apparent distress HEENT: Normocephalic, atraumatic, mucus membranes moist, and no lesions CHEST: Normal inspiratory effort PELVIC: external genitalia normal, normal Bartholin's glands, urethra, Navarro's glands, no vulvar lesions, no cervical lesions, [...] notify patient of test results. Nilda Stiles APRN.GLASS SCULLION Medical Decision Making: Problems: Moderate: New problem with uncertain prognosis Data: Unique test(s) ordered: 3+ Risk: Low: Low risk from testing/treatment Medical Decision Making Level: 4 - Moderate [facility] 12-12-2023 History of Present illness Narrative Patient declined deliverer outside. Amirah Woodard is a 18 year old [...] L0 SAB0 IAB0 Ectopic0 Multiple0 Live Births0 Rounding Machine Operator History LMP: 10/08/2023 (Exact Date), Having periods Age at Menarche: Age at First : Age at Menopause: Rounding Machine Operator History Comments: Sexual Activity: Yes; Male Contraception: [...] (FLONASE) 50 mcg/actuation nasal spray Use 1 [place] in each nostril once daily. loratadine (CLARITIN) [...] discussed with the Patient or Patient's Authorized Client Solutions Specialist. As applicable, any other physician, advance practice provider, medical student, or other health professional student that will be observing or involved in the sensitive examination for educational or training purposes was discussed with the Patient or Authorized Client Solutions Specialist. The Patient or Authorized Client Solutions Specialist has agreed to proceed with the sensitive examination. (Sensitive examination includes inspection and/or palpation of the breasts, pelvis, prostate and anorectal regions). EXAM: LMP 10/08/2023 GENERAL: pleasant, female in no apparent distress HEENT: Normocephalic, atraumatic, mucus membranes moist, and no lesions CHEST: Normal inspiratory effort PELVIC: external genitalia normal, normal Bartholin's glands, urethra, Navarro's glands, no vulvar lesions, no cervical lesions, [...] 4 - Moderate documented in this encounter [facility] 10-31-2023 Sommer Panchal PA-C - 10/31/2023 [...] drinks Go! Be healthy, inside and out! [email or web address] Adolescent to Adult Transition Program [facility] cares about helping you and each of our adolescents and young adults make a smooth transition to adult care. If your current doctor is a diesel truck driver, we will work with you [...] your current doctor is in family medicine, [facility] will prepare you and your family [...] details. If joining our practice from outside [facility], we will help you request your [...] the use of evidence-driven strategies for health health care facilities inspector, youth, young adults, and their families. www.gottransition.org https://gottransition.org/resource /?goj-lcffyv-ibadqsq documented in this encounter [facility] 10-31-2023 Note HNO ID: [id number] Author: SOMMER HERNANDEZ PA-C Service: ? Author Type: Physician Infection Control Nurse Type: Progress Notes Filed: 11/04/2023 07:46 Note Text: WELL VISIT PEDIATRIC 18+ YRS OLD Amirah is a 18 year old who presents today for well exam. 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 loratadine (CLARITIN) [...] satisfactory Screening tools reviewed and discussed with patient/[id number] and Social Determinants of Health. Please see [...] hard Transportation Ne (more content not included)... [facility] 10-31-2023 History of Present illness Narrative WELL VISIT PEDIATRIC 18+ YRS OLD Amirah is a 18 year old who presents today for well exam. 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 loratadine (CLARITIN) [...] satisfactory Screening tools reviewed and discussed with patient/[id number] and Social Determinants of Health. Please see [...] and safety. - Dental care discussed. - [employer] handout given (See Patient Instructions). - No immunizations were given at this visit. - Follow up in one year for routine physical. Sommer Hernandez PA-C documented in this encounter [facility] 10-28-2023 Telephone encounter Note The following approved medication requests have been transmitted electronically. Requested Prescriptions Pending Prescriptions Disp Refills albuterol HFA (PROVENTIL HFA, VENTOLIN HFA) 90 mcg/actuation inhaler 18 g 0 Sig: Inhale 2 Puffs as instructed every 4 hours as needed for wheezing/shortness of breath. Que Chavez MD [facility] 10-28-2023 Miscellaneous Notes The following approved [...] Antonina Morse RN documented in this encounter [facility] 10-28-2023 Telephone encounter Note Last WCC: [...] season) due on 11/05/2022 Antonina Morse RN [facility] 08-25-2023 History of Present illness Narrative Amirah Woodard is a 18 year old female who presents for problem visit burning with intercourse HPI: pt states that her previous symptoms are cleared up, but will have vaginal burning with intercourse and after. OB History T0 L0 SAB0 IAB0 Ectopic0 Multiple0 Live Births0 Rounding Machine Operator History LMP: 07/04/2023 (Exact Date), Having periods Age at Menarche: Age at First : Age at Menopause: Rounding Machine Operator History Comments: Sexual Activity: Yes; Male Contraception: [...] (FLONASE) 50 mcg/actuation nasal spray Use 1 [place] in each nostril once daily. albuterol HFA [...] 3 - Low documented in this encounter [facility] 08-21-2023 Instructions Alecia Mendez APRN.JOSELYN - [...] inability to swallow. documented in this encounter [facility] 08-21-2023 History of Present illness Narrative Subjective The history is provided by the patient. No bar waiter/waitress was used. HPI Amirah Woodard is a 18 year old female who presents today for CC of sore throat and ever for one day. She is also having nasal congestion, and cough. She has used ibuprofen with short term relief. 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 BP 112/81 Pulse 104 Temp 36.4 C [...] have confirmed and edited as necessary, the [facility] Review of Systems Constitutional: Negative for chills [...] Alecia Mendez APRN.JOSELYN documented in this encounter [facility] 08-02-2023 Telephone encounter Note BV positive. To treat with Flagyl 500mg PO BID for 7 days. 1) No alcohol during treatment and for 24 hours after last dose. 2) No intercourse during treatment. 3) Probiotic by mouth once daily for 30 days or as needed. I would also recommend using boric acid vaginal suppositories for 7 night. Nilda Stiles APRN.CNP [facility] 08-02-2023 Miscellaneous Notes BV positive. To [...] Nilda Stiles APRN.JOSELYN documented in this encounter [facility] 07-29-2023 Telephone encounter Note The following approved medication requests have been transmitted electronically. Requested Prescriptions Pending Prescriptions Disp Refills fluticasone (FLONASE) 50 mcg/actuation nasal spray 1 Each 3 Sig: Use 1 [place] in each nostril once daily. albuterol HFA (PROVENTIL HFA, VENTOLIN HFA) 90 mcg/actuation inhaler 18 g 0 Sig: Inhale 2 Puffs as instructed every 4 hours as needed for wheezing/shortness of breath. Que Chavez MD [facility] 07-29-2023 Miscellaneous Notes The following approved medication requests have been transmitted electronically. Requested Prescriptions Pending Prescriptions Disp Refills fluticasone (FLONASE) 50 mcg/actuation nasal spray 1 Each 3 Sig: Use 1 [place] in each nostril once daily. albuterol HFA (PROVENTIL HFA, VENTOLIN HFA) 90 mcg/actuation inhaler 18 g 0 Sig: Inhale 2 Puffs as instructed every 4 hours as needed for wheezing/shortness of breath. Que Chavez MD Last [facility]: 10/05/22 Verify RX Benefits Completed Last [...] Antonina Morse RN documented in this encounter [facility] 07-29-2023 Telephone encounter Note Refill request received via [employer]. Patient last seen in office on 07/11/23. Caroline Mora RN [facility] 07-29-2023 Miscellaneous Notes Refill request received via [employer]. Patient last seen in office on 07/11/23. Caroline Mora RN documented in this encounter [facility] 07-29-2023 Telephone encounter Note Last [facility]: 10/05/22 Verify RX Benefits Completed Last [...] Health Screening Never done Antonina Morse RN [facility] 07-29-2023 History of Present illness Narrative Anesthesiology Crna offered: Patient declines. Amirah Woodard is a [...] external genitalia normal, normal Bartholin's glands, urethra, Navarro's glands, no vulvar lesions, no cervical lesions, [...] 4 - Moderate documented in this encounter [facility] 07-12-2023 Note Addended by: NILDA STILES on: 07/12/2023 02:21 PM Modules accepted: Orders [facility] 07-12-2023 Miscellaneous Notes Addended by: NILDA STILES on: 07/12/2023 02:21 PM Modules accepted: Orders BV positive. To treat with Flagyl 500mg PO BID for 7 days. 1) No alcohol during treatment and for 24 hours after last dose. 2) No intercourse during treatment. 3) Probiotic by mouth once daily for 30 days or as needed. Nilda Stiles APRN.CNP documented in this encounter [facility] 07-12-2023 Telephone encounter Note BV positive. To treat with Flagyl 500mg PO BID for 7 days. 1) No alcohol during treatment and for 24 hours after last dose. 2) No intercourse during treatment. 3) Probiotic by mouth once daily for 30 days or as needed. Nilda Stiles APRN.CNP [facility] 07-11-2023 History of Present illness Narrative Anesthesiology Crna offered: Patient declines. Amirah Woodard is a [...] external genitalia normal, normal Bartholin's glands, urethra, Navarro's glands, no vulvar lesions, no cervical lesions, [...] 3 - Low documented in this encounter [facility] 06-29-2023 Telephone encounter Note The following approved medication requests have been transmitted electronically. Requested Prescriptions Pending Prescriptions Disp Refills albuterol HFA (PROVENTIL HFA, VENTOLIN HFA) 90 mcg/actuation inhaler 18 g 0 Sig: Inhale 2 Puffs as instructed every 4 hours as needed for wheezing/shortness of breath. Que Chavez MD [facility] 06-29-2023 Miscellaneous Notes The following approved medication requests have been transmitted electronically. Requested Prescriptions Pending Prescriptions Disp Refills albuterol HFA (PROVENTIL HFA, VENTOLIN HFA) 90 mcg/actuation inhaler 18 g 0 Sig: Inhale 2 Puffs as instructed every 4 hours as needed for wheezing/shortness of breath. Que Chavez MD documented in this encounter [facility] 06-24-2023 History of Present illness Narrative [...] Que Chavez MD documented in this encounter [facility] 05-16-2023 History of Present illness Narrative [...] Kia Lucero MD documented in this encounter [facility] 05-13-2023 Miscellaneous Notes Linked to appointment. Jody Hall RN Done Janelle Marin MD Patient is scheduled with today for IUD removal. Please file pending order to attach to her visit. Thank you. Kia Sheldon RN documented in this encounter [facility] 05-13-2023 History of Present illness Narrative [...] PATIENT PRESENTS WITH AN IMPLANTABLE OR ATTACHED DIESEL SCOOP OPERATOR: No RADIOLOGY DEPARTMENT: Ultrasound PERIPHERAL IV DATA: Not applicable SIGNED BY: Alla David RDMS May 13, 2023 8:31 AM documented in this encounter [facility] 05-03-2023 History of Present illness Narrative [...] L0 SAB0 IAB0 Ectopic0 Multiple0 Live Births0 Rounding Machine Operator History LMP: 04/04/2023 (Exact Date), Having periods Age at Menarche: Age at First : Age at Menopause: Rounding Machine Operator History Comments: Sexual Activity: Not Currently; Male [...] (FLONASE) 50 mcg/actuation nasal spray Use 1 [place] in each nostril once daily. (Patient taking differently: Use 1 [place] in each nostril once daily. 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 I have re-performed the HPI, Physical Examination, Assessment and Plan. Delfina Watson APRN.CNM documented in this encounter [facility] 11-12-2022 Miscellaneous Notes Please see pt's mychart message and further advise. Charis Crook LPN documented in this encounter [facility] 10-05-2022 Instructions Sommer Hernandez PA-C - [...] drinks Go! Be healthy, inside and out! [email or web address] Adolescent to Adult Transition Program [facility] cares about helping you and each of our adolescents and young adults make a smooth transition to adult care. If your current doctor is a diesel truck driver, we will work with you [...] your current doctor is in family medicine, [facility] will prepare you and your family [...] details. If joining our practice from outside [facility], we will help you request your [...] the use of evidence-driven strategies for health health care facilities inspector, youth, young adults, and their families. www.gottransition.org https://gottransition.org/resource /?hdv-mhddjs-dgymvce documented in this encounter [facility] 10-05-2022 History of Present illness Narrative [...] (FLONASE) 50 mcg/actuation nasal spray Use 1 [place] in each nostril once daily. (Patient taking differently: Use 1 [place] in each nostril once daily. PRN) Olopatadine [...] satisfactory Screening tools reviewed and discussed with patient/[id number] and Social Determinants of Health. Please see [...] safety. - Dental care discussed. - [employer] handout given (See Patient Instructions). - Patient was counseled [id number] by myself (the billing provider) for the following immunizations and vaccine components, including side effects: HPV. Patient consents for immunization and understands risks and benefits. A VIS sheet on each immunization was given to the patient. - Follow up in one year for routine physical. Sommer Hernandez PA-C documented in this encounter [facility] 07-15-2022 History of Present illness Narrative [...] (FLONASE) 50 mcg/actuation nasal spray Use 1 [place] in each nostril once daily. Olopatadine (PATADAY [...] 3 - Low documented in this encounter [facility] 07-12-2022 Miscellaneous Notes She can do a virtual visit since I've seen her this year. Nilda Stiles APRN.CNP Do you want patient to have an in person or virtual visit to discuss? documented in this encounter [facility] 05-27-2022 History of Present illness Narrative Patient presents with: Sore Throat: Cough, chest congestion, runny nose x4 days HPI: Feeling sick for 5 days. Her boyfriend is sick with cough and sore throat also. 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 Positive symptoms: Cough, Sore throat, Nasal Congestion, [...] (FLONASE) 50 mcg/actuation nasal spray Use 1 [place] in each nostril once daily. Olopatadine (PATADAY [...] Ramon Patrick MD documented in this encounter [facility] 05-10-2022 Miscellaneous Notes Voicemail and [email or web address] message to pt to offer sooner appt. Pt is currently scheduled for 05/17/22 for vaginal burning with intercourse. When pt calls the office please offer her time tomorrow to be seen. Charis Crook LPN documented in this encounter [facility] 05-07-2022 History of Present illness Narrative PEDIATRIC SICK VISIT SERVICE DATE: 04/18/2022 TEACHING PROVIDER (Physician/PA/HEEL WASHER STRINGING MACHINE OPERATOR) NOTE OF PERSONAL INVOLVEMENT IN CARE: I have personally seen and examined the patient and performed the medical decision-making components. I have reviewed the Physician Infection Control Nurse (PA) Student's documentation and verified the findings in the note as written. Signature: Sommer Hernandez PA-C Date: 05/07/2022 Time: 9:01 AM This note was generated by a PA STUDENT working under the supervision of an Attending Physician Infection Control Nurse. As applicable, the findings, conclusions, and assessment of risk have been confirmed by a qualified provider. The note is NOT considered authenticated until addended and co-signed by the Attending Physician Infection Control Nurse at the beginning of this note. SUBJECTIVE: [...] contacts: No known sick contacts (works at fdc) HISTORY: ACTIVE PROBLEM LIST Allergic Rhinitis - [...] (FLONASE) 50 mcg/actuation nasal spray Use 1 [place] in each nostril once daily. Olopatadine (PATADAY [...] TIME: 9:00 AM documented in this encounter [facility] 05-03-2022 Miscellaneous Notes Please have the patient make another appointment so that we can repeat the vaginal swabs to see if the infection has cleared. Nilda Stiles APRN.JOSELYN documented in this encounter [facility] 04-13-2022 Miscellaneous Notes Patient notified. States [...] Nilda Stiles APRN.CNP documented in this encounter [facility] 04-12-2022 History of Present illness Narrative [...] external genitalia normal, normal Bartholin's glands, urethra, Navarro's glands, no vulvar lesions, no cervical lesions, [...] 3 - Low documented in this encounter [facility] 04-09-2022 Miscellaneous Notes 1st attempt no answer, no voicemail. Called to R/S w/ Paxton for 04/12. Kia Tijerina documented in this encounter [facility] 03-16-2022 History of Present illness Narrative [...] L0 SAB0 IAB0 Ectopic0 Multiple0 Live Births0 Rounding Machine Operator History LMP: 03/04/2022, Having periods Age at Menarche: Age at First : Age at Menopause: Rounding Machine Operator History Comments: Sexual Activity: Not Currently; Male [...] (FLONASE) 50 mcg/actuation nasal spray Use 1 [place] in each nostril once daily. Olopatadine (PATADAY [...] external genitalia normal, normal Bartholin's glands, urethra, Navarro's glands, no vulvar lesions, no cervical lesions, [...] 3 - Low documented in this encounter [facility] 01-18-2022 Instructions Alecia Mendez APRN.CNP - 01/18/2022 10:23 AM EST covid test ordered You will be notified in 12-24 hours, results available on [facility] Home isolation until covid results are [...] inability to swallow. documented in this encounter [facility] 01-18-2022 History of Present illness Narrative Subjective The history is provided by the patient. No bar waiter/waitress was used. HPI Amirah Woodard is a 16 year old female who presents today for CC of cough, congestion, sore throat and fever that started on Tuesday. She has use tylenol, and nyquil with short term relief. 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 BP 118/64 Pulse 112 Temp 36.5 C [...] have confirmed and edited as necessary, the [facility] Review of Systems Constitutional: Negative for chills [...] in 24-48 hours with results, available on [email or web address] - COVID, FLU A/B + RSV, ROUTINE [...] Alecia Mendez APRN.JOSELYN documented in this encounter [facility] 10-28-2021 History of Present illness Narrative PEDIATRIC SICK VISIT SERVICE DATE: 10/28/2021 TEACHING PROVIDER (Physician/PA/CATRINA) NOTE OF PERSONAL INVOLVEMENT IN CARE: I have personally seen and examined the patient and performed the medical decision-making components. I have reviewed the Physician Infection Control Nurse (PA) Student's documentation and verified the findings in the note as written. Signature: Sommer Hernandez PA-C Date: 10/28/2021 Time: 9:59 AM This note was generated by a PA STUDENT working under the supervision of an Attending Physician Infection Control Nurse. As applicable, the findings, conclusions, and assessment of risk have been confirmed by a qualified provider. The note is NOT considered authenticated until addended and co-signed by the Attending Physician Infection Control Nurse at the beginning of this note. SUBJECTIVE: [...] (FLONASE) 50 mcg/actuation nasal spray Use 1 [place] in each nostril once daily. Olopatadine (PATADAY [...] TIME: 9:00 AM documented in this encounter [facility] 10-05-2021 Instructions Alecia Mendez APRN.GLASS SCULLION - 10/05/2021 1:02 PM EDT covid test ordered You will be notified in 24 -48 hours, [facility] until covid results are back [...] inability to swallow. documented in this encounter [facility] 10-05-2021 History of Present illness Narrative [...] have confirmed and edited as necessary, the [facility] Review of Systems Constitutional: Positive for chills, [...] in 24-48 hours with results, available on [email or web address] - COVID, FLU A/B + RSV, ROUTINE [...] Alecia Mendez APRN.JOSELYN documented in this encounter [facility] 07-13-2021 Instructions Que Chavez MD - [...] drinks Go! Be healthy, inside and out! [email or web address]/5toGo Adolescent to Adult Transition Program [facility] cares about helping you and each of our adolescents and young adults make a smooth transition to adult care. If your current doctor is a diesel truck driver, we will work with you [...] your current doctor is in family medicine, [facility] will prepare you and your family [...] details. If joining our practice from outside [facility], we will help you request your [...] the use of evidence-driven strategies for health health care facilities inspector, youth, young adults, and their families. www.gottransition.org https://[employer].org/resource /?sny-rpmssc-mjxatlg Healthy Children Ages & Stages Texting Program HealthyChildren.org is an AAP ([place] [employer]) parenting website. It is [...] https://www.healthychildren.org/En natachash/tips-tools/HealthyChildren-T exting-Program/Pages/default.aspx documented in this encounter [facility] 07-13-2021 History of Present illness Narrative [...] (FLONASE) 50 mcg/actuation nasal spray Use 1 [place] in each nostril once daily. Olopatadine (PATADAY [...] No Screening tools reviewed and discussed with patient/ygkdzq-PHL-D and Social Determinants of Health. Please see [...] TIME: 9:00 AM documented in this encounter [facility] 06-12-2021 History of Present illness Narrative [...] TDAP VACCINE AGE 7+ IM MENINGOCOCCAL CONJUGATE [id number], IM She has had a partial response [...] 2021 TIME: 9:13 AM Parent/guardian was counseled [id number] by myself (the billing provider) for the following immunizations, including side effects: Menactra and TdaP. Parent/guardian consents for immunization and understands risks and benefits. A VIS sheet on each immunization was offered to the parent. SIGNATURE: Que Chavez MD PATIENT NAME: Amirah Woodard DATE: June 12, 2021 TIME: 9:29 AM documented in this encounter [facility] 06-12-2021 Instructions Que Chavez MD - [...] drinks Go! Be healthy, inside and out! www.[facility].org/5toGo documented in this encounter [facility] 08-09-2016 History of Past i llness Narrative Problem Noted Date Resolved Date Exercise-induced asthma with acute exacerbation 08/09/2016 06/12/2021 documented as of this encounter (statuses as of 06/12/2021) [facility] History of Past illness Narrative* Problem Noted Date Resolved Date Exercise-induced asthma with acute exacerbation 08/09/2016 06/12/2021 documented as of this encounter (statuses as of 07/13/2021) [facility] of Past illness Narrative* Problem Noted Date Resolved Date Exercise-induced asthma with acute exacerbation 08/09/2016 06/12/2021 documented as of this encounter (statuses as of 09/18/2021) [facility] of [facility] illness Narrative* Problem Noted Date Resolved Date Exercise-induced asthma with acute exacerbation 08/09/2016 06/12/2021 documented as of this encounter (statuses as of 10/05/2021) [facility] of [facility] illness Narrative* Problem Noted Date Resolved Date Exercise-induced asthma with acute exacerbation 08/09/2016 06/12/2021 documented as of this encounter (statuses as of 10/28/2021) [facility] of [facility] illness Narrative* Problem Noted Date Resolved Date Exercise-induced asthma with acute exacerbation 08/09/2016 06/12/2021 documented as of this encounter (statuses as of 12/28/2021) [facility] illness Narrative* Problem Noted Date Resolved Date Exercise-induced asthma with acute exacerbation 08/09/2016 06/12/2021 documented as of this encounter (statuses as of 01/18/2022) [facility] Narrative* Problem Noted Date Resolved Date Exercise-induced asthma with acute exacerbation 08/09/2016 06/12/2021 documented as of this encounter (statuses as of 03/16/2022) [facility] of [facility] illness Narrative* Problem Noted Date Resolved Date Exercise-induced asthma with acute exacerbation 08/09/2016 06/12/2021 documented as of this encounter (statuses as of 04/09/2022) [facility] Narrative* Problem Noted Date Resolved Date Exercise-induced asthma with acute exacerbation 08/09/2016 06/12/2021 documented as of this encounter (statuses as of 04/12/2022) [facility] Narrative* Problem Noted Date Resolved Date Exercise-induced asthma with acute exacerbation 08/09/2016 06/12/2021 documented as of this encounter (statuses as of 04/13/2022) [facility] Narrative* Problem Noted Date Resolved Date Exercise-induced asthma with acute exacerbation 08/09/2016 06/12/2021 documented as of this encounter (statuses as of 05/03/2022) [facility] Narrative* Problem Noted Date Resolved Date Exercise-induced asthma with acute exacerbation 08/09/2016 06/12/2021 documented as of this encounter (statuses as of 05/07/2022) [facility] Narrative* Problem Noted Date Resolved Date Exercise-induced asthma with acute exacerbation 08/09/2016 06/12/2021 documented as of this encounter (statuses as of 05/11/2022) [facility] Narrative* Problem Noted Date Resolved Date Exercise-induced asthma with acute exacerbation 08/09/2016 06/12/2021 documented as of this encounter (statuses as of 05/27/2022) [facility] Narrative* Problem Noted Date Resolved Date Exercise-induced asthma with acute exacerbation 08/09/2016 06/12/2021 documented as of this encounter (statuses as of 07/13/2022) [facility] Narrative* Problem Noted Date Resolved Date Exercise-induced asthma with acute exacerbation 08/09/2016 06/12/2021 documented as of this encounter (statuses as of 07/16/2022) [facility] Narrative* Problem Noted Date Diagnosed Date Resolved Date Exercise-induced asthma with acute exacerbation 08/09/2016 06/12/2021 documented as of this encounter (statuses as of 10/06/2022) [facility] Narrative* Problem Noted Date Diagnosed Date Resolved Date Exercise-induced asthma with acute exacerbation 08/09/2016 06/12/2021 documented as of this encounter (statuses as of 11/12/2022) [facility] illness Narrative* Problem Noted Date Diagnosed Date Resolved Date Exercise-induced asthma with acute exacerbation 08/09/2016 06/12/2021 documented as of this encounter (statuses as of 04/28/2023) [facility] Narrative* Problem Noted Date Diagnosed Date Resolved Date Exercise-induced asthma with acute exacerbation 08/09/2016 06/12/2021 documented as of this encounter (statuses as of 05/13/2023) [facility] Narrative* Problem Noted Date Diagnosed Date Resolved Date Exercise-induced asthma with acute exacerbation 08/09/2016 06/12/2021 documented as of this encounter (statuses as of 05/14/2023) [facility] Narrative* Problem Noted Date Diagnosed Date Resolved Date Exercise-induced asthma with acute exacerbation 08/09/2016 06/12/2021 documented as of this encounter (statuses as of 05/16/2023) [facility] Narrative* Problem Noted Date Diagnosed Date Resolved Date Exercise-induced asthma with acute exacerbation 08/09/2016 06/12/2021 documented as of this encounter (statuses as of 05/18/2023) [facility] Narrative* Problem Noted Date Diagnosed Date Resolved Date Exercise-induced asthma with acute exacerbation 08/09/2016 06/12/2021 documented as of this encounter (statuses as of 06/24/2023) [facility] Conrado Richardson [facility] Note Date/Time September 04, 2024 12:01 pm [facility] Medical Records Department [address] [place] [address] Emergency Department Summary 09/04/24 MR#: [id number] Acct: [id number] Name: AMIRAH WOODARD Rep #:[id number] : [...] discomfort that was diffuse. Lightheadedness. Saw her HEALTH ADMINISTRATOR in the office Dr. Adrienne Marin. Who [...] 10/04/23 Unknown Hist ory cell-Bifido 25 billion xjsc-UVD-emkwq capsule albuterol sulfate 90 mcg/actuation inhalation 10/04/23 [...] the ankles bilaterally. Dorsi plantarflexion intact. Normal stationary engineer refrigeration strength. Normal radial pulses. Back nontender. Neurologically [...] Tylenol for pain. Outpatient follow-up with her HEALTH ADMINISTRATOR. History & Record Review Discussion w/independent historian: [...] 70.6 H Lymph % (Auto) 16.7 L [place] % (Auto) 8.8 Eos % (Auto) 2.2 [...] dissection No acute pulmonary process Reading Location: [facility] Rhythm Strip Rhythm Strip: Sinus Tach Rate: 113 Ectopy: None EKG Initial EKG: Attestation: I personally reviewed and interpreted this EKG as follows: Interpretation: No Acute Injury Pattern and Sinus Tachycardia Comments: Sinus tachycardia rate of 113 no acute signs of [place] or ischemia. Discharge Plan Triage Chief Complaint: Chest Pain ED Provider: Conrado Richardson Dx/Rx/DC Orders Clinical Impression: Chest pain, Third trimester Instructions: ED Chest Pain, Uncertain Cause Prescriptions: No Action albuterol sulfate 90 mcg/actuation HFA aerosol inhaler inhalation Lacto no.02-Hteabd-CIA-larch 25B cell-25B cell-50 mg capsule PO One A Day Women's DHA 28 mg iron- 800 mcg combo pack PO Primary Care Provider: Ruiz Vega Referrals: Ruiz Vega DO [Primary Care Provider] - As Needed Janelle Marin MD [Med Staff - Active Staff] - As Needed Activity Restrictions/Additional Instructions: Follow-up your HEALTH ADMINISTRATOR and your primary care physician as needed. Your test today looked good. No signs of a blood clot or heart attack. Print Language: Swedish Disposition Disposition: Home, Self Care What to do if you have Problems For any increased pain, shortness of breath, bleeding, nausea or vomiting, chestpain, or any unexpected problems, contact your Primary Care Provider. Call [facility] ([phone]) or report to the closest Emergency Room. Call 911 if necessary. 09/04/24 1201 <Electronically signed by Conrado Richardson MD> Cosigner Signature (if applicable): CC: Dr. Ruiz Vega DO ~ Signed [facility] Work Phone: Evaluation note* Diagnosis Gastroesophageal reflux disease, unspecified whether esophagitis present- Primary Encounter for immunization Need for other specified prophylactic vaccination against single bacterial disease [facility] Encounter for WCC (well child check) with abnormal findings- Primary Gastroesophageal reflux disease, unspecified whether esophagitis present Allergic rhinitis, unspecified seasonality, unspecified trigger [facility] Diagnosis Pelvic pain in female- Primary Unspecified symptom associated with female genital organs [facility] Diagnosis Upper respiratory symptom- Primary Other symptoms involving respiratory system and chest Suspected COVID-19 virus infection [facility] Diagnosis Seasonal allergies- Primary Allergic rhinitis, cause unspecified [facility] Diagnosis Encounter for immunization- Primary Need for other specified prophylactic vaccination against single bacterial disease [facility] Diagnosis Acute cough- Primary Fever, unspecified fever cause Sore throat Acute pharyngitis URI with cough and congestion [facility] Diagnosis Pelvic pain in female- Primary Unspecified symptom associated with female genital organs Encounter for surveillance of contraceptive pills Surveillance of previously prescribed contraceptive pill [facility] Diagnosis Vaginal irritation- Primary Unspecified noninflammatory disorder of vagina [facility] Diagnosis Dysfunction of both eustachian tubes- Primary Dysfunction of Eustachian tube Seasonal allergies Allergic rhinitis, cause unspecified [facility]* Diagnosis URI, acute- Primary Acute upper respiratory infections of unspecified site Wheezing [facility]* Diagnosis Missed period- Primary Irregular menstrual cycle Encounter for other contraceptive management [facility] Diagnosis Encounter for wellness examination in adult- Primary Encounter for immunization Need for other specified prophylactic vaccination against single bacterial disease [facility] Diagnosis Malpositioned intrauterine device (IUD), initial encounter- Primary Encounter for IUD removal Encounter for removal of intrauterine contraceptive device [facility] Diagnosis Pelvic pain in female Unspecified symptom associated with female genital organs [facility] Diagnosis Encounter for IUD removal- Primary Encounter for removal of intrauterine contraceptive device Displacement of intrauterine contraceptive device, initial encounter Malpositioned intrauterine device (IUD), initial encounter [facility] Diagnosis Vaginal discharge- Primary Leukorrhea, not specified as infective Vaginal itching Pruritus of genital organs Pelvic pain in female Unspecified symptom associated with female genital organs [facility] Diagnosis Pes planus of both feet- Primary Pain in archer, unspecified laterality Acute upper respiratory infection Acute upper respiratory infections of unspecified site Mild intermittent asthma with (acute) exacerbation [facility] Diagnosis Wheezing [facility] Diagnosis Vaginal burning- Primary Other specified symptom associated with female genital organs [facility]* Diagnosis BV (bacterial vaginosis) Vaginitis and vulvovaginitis, unspecified [facility] Diagnosis Wheezing [facility]* Diagnosis Vaginal discharge- Primary Leukorrhea, not specified as infective [facility]* Diagnosis Sore throat- Primary Acute pharyngitis Viral illness Unspecified viral infection, in conditions classified elsewhere and of unspecified site [facility]* Diagnosis Vaginal burning- Primary Other specified symptom associated with female genital organs [facility]* Diagnosis Wheezing [facility] Diagnosis Wheezing [facility]* Diagnosis Encounter for wellness examination in adult- Primary Mild intermittent asthma with (acute) exacerbation Seborrhea Adverse food reaction, initial encounter [facility]* Diagnosis Vaginal discharge- Primary Leukorrhea, not specified as infective Vaginal irritation Unspecified noninflammatory disorder of vagina Family history of thyroid disorder Family history of other endocrine and metabolic diseases [facility]* Diagnosis Encounter for test, result positive- Primary examination or test, positive result [facility]* Diagnosis Encounter for care in first trimester of first - Primary 7 weeks gestation of state, incidental Vaginal irritation Unspecified noninflammatory disorder of vagina BMI 32.0-32.9,adult Body Mass Index 32.0-32.9, adult Supervision of normal first teen in first trimester [facility]* Diagnosis Sore throat- Primary Acute pharyngitis [facility] Diagnosis Acute non-recurrent frontal sinusitis- Primary documented in this encounter [facility]* Diagnosis Vaginal irritation- Primary Unspecified noninflammatory disorder of vagina Vaginal discharge Leukorrhea, not specified as infective Encounter for care in first trimester of first 12 weeks gestation of state, incidental [facility] Diagnosis Supervision of normal first teen in first trimester- Primary 13 weeks gestation of state, incidental Obesity in Obesity complicating , childbirth, or the puerperium, unspecified as to episode of care or not applicable [facility]* Diagnosis Encounter for screening for malformation using ultrasound- Primary 13 weeks gestation of state, incidental documented in this encounter [facility] note* Diagnosis Wheezing [facility]* Diagnosis Supervision of normal first teen in second trimester- Primary Obesity in Obesity complicating , childbirth, or the puerperium, unspecified as to episode of care or not applicable 16 weeks gestation of state, incidental Dizziness Dizziness and giddiness [facility]* Diagnosis Supervision of normal first teen in second trimester- Primary Obesity in Obesity complicating , childbirth, or the puerperium, unspecified as to episode of care or not applicable 20 weeks gestation of state, incidental documented in this encounter [facility] note* Diagnosis Obesity in - Primary Obesity complicating , childbirth, or the puerperium, unspecified as to episode of care or not applicable Supervision of normal first teen in first trimester 13 weeks gestation of state, incidental [facility]* Diagnosis Obesity in (HCC)- Primary Obesity complicating , childbirth, or the puerperium, unspecified as to episode of care or not applicable Supervision of normal first teen in second trimester (HCC) 22 weeks gestation of (HCC) state, incidental Cramping affecting , antepartum (HCC) documented in this encounter [facility] note* Diagnosis 24 weeks gestation of (HCC)- Primary state, incidental Obesity in (HCC) Obesity complicating , childbirth, or the puerperium, unspecified as to episode of care or not applicable Screening for diabetes mellitus * Assessment & Plan Note - Janelle Marin MD - 06/19/2024 2:51 PM EDTAssociated Problem(s): Obesity in (HCC) documented in this encounter [facility] note* Diagnosis 24 weeks gestation of (HCC)- [...] first teen in second trimester ([facility]) Decreased movements in second trimester, single or unspecified fetus ([facility]) documented in this encounter [facility] note* Diagnosis 24 weeks gestation of (HCC)- Primary state, incidental Obesity in (HCC) Obesity complicating , childbirth, or the puerperium, unspecified as to episode of care or not applicable Screening for diabetes mellitus Supervision of high risk in third trimester ([facility])- Primary Unspecified high-risk 28 weeks gestation of ([facility]) state, incidental Obesity affecting in third trimester, unspecified obesity type ([facility]) Vaginal discharge during in third trimester ([facility]) documented in this encounter [facility] note* Diagnosis 24 weeks gestation of (HCC)- Primary state, incidental Obesity in (HCC) Obesity complicating , childbirth, or the puerperium, unspecified as to episode of care or not applicable Screening for diabetes mellitus Supervision of high risk in third trimester ([facility])- Primary Unspecified high-risk 30 weeks gestation of ([facility]) state, incidental Rash Rash and other nonspecific skin eruption Other obesity due to excess calories affecting , antepartum ([facility]) Allergic rhinitis, unspecified seasonality, unspecified trigger * Assessment & Plan Note - Castillo Mckeon MD - 08/01/2024 9:51 AM EDT Associated Problem(s): Supervision of high risk in third trimester ([facility]) Orders: COMPLETE BLOOD COUNT AND DIFFERENTIAL; Future COMPREHENSIVE METABOLIC PANEL; Future BILE ACIDS, TOTAL; Future * Assessment & Plan Note - Castillo Mckeon MD - 08/01/2024 9:51 AM EDT Associated Problem(s): Allergic rhinitis documented [facility]* Diagnosis 24 weeks gestation of ([facility])- Primary state, incidental Obesity in ([facility]) Obesity complicating , childbirth, or the puerperium, unspecified as to episode of care or not applicable Screening for diabetes mellitus Supervision of high risk in third trimester ([facility])- Primary Unspecified high-risk 30 weeks gestation of ([facility]) state, incidental Rash Rash and other nonspecific skin eruption Other obesity due to excess calories affecting , antepartum ([facility]) Allergic rhinitis, unspecified seasonality, unspecified trigger Well adult exam- Primary Routine general medical examination at a health care facility 31 weeks gestation of ([facility]) state, incidental Class 2 obesity with body mass index (BMI) of 35.0 to 35.9 in adult, unspecified obesity type, unspecified whether serious comorbidity present Gastroesophageal reflux disease without esophagitis Esophageal reflux [facility]* Diagnosis 24 weeks gestation of (HCC)- Primary state, incidental Obesity in ([facility]) Obesity complicating , childbirth, or the puerperium, unspecified as to episode of care or not applicable Screening for diabetes mellitus Supervision of high risk in third trimester ([facility])- Primary Unspecified high-risk 30 weeks gestation of ([facility] [facility]) state, incidental Rash Rash and other nonspecific skin eruption Other obesity due to excess calories affecting , antepartum ([facility]) Allergic rhinitis, unspecified seasonality, unspecified trigger Supervision of high risk in third trimester (HCC)- Primary Unspecified high-risk 32 weeks gestation of (HCC) state, incidental Obesity affecting in third trimester, unspecified obesity type (HCC) documented in this encounter [facility] note* Diagnosis 24 weeks gestation of (HCC)- [...] (HCC) state, incidental documented in this encounter [facility] noteNo assessment information availableWMercy [facility] Work Phone: Evaluation note* Diagnosis 24 [...] OB DIP B/O [facility] Diagnosis 24 weeks gestation of [...] excess calories affecting , antepartum ([facility]) Allergic rhinitis, unspecified seasonality, unspecified trigger Supervision [...] (HCC) rx pepcid documented in this encounter [facility] note* Diagnosis 24 weeks gestation of (HCC)- Primary state, incidental Obesity in ([facility]) Obesity complicating , childbirth, or the puerperium, unspecified as to episode of care or not applicable Screening for diabetes mellitus Supervision of high risk in third trimester ([facility])- Primary Unspecified high-risk 30 weeks gestation of ([facility]) state, incidental Rash Rash and other nonspecific skin eruption Other obesity due to excess calories affecting , antepartum ([facility]) Allergic rhinitis, unspecified seasonality, unspecified trigger Supervision of high risk in third trimester ([facility])- Primary Unspecified high-risk Obesity affecting in third trimester, unspecified obesity type ([facility]) 35 weeks gestation of ([facility]) state, incidental 36 weeks gestation of ([facility])- Primary state, incidental Supervision of high risk in third trimester ([facility]) Unspecified high-risk Obesity affecting in third trimester, unspecified obesity type ([facility]) Heartburn during in third trimester ([facility]) Supervision of high risk in third trimester ([facility])- Primary Unspecified high-risk 37 weeks gestation of ([facility]) state, incidental Positive GBS test documented in this encounter [facility] note* Diagnosis 24 weeks gestation of (HCC)- Primary state, incidental Obesity in ([facility]) Obesity complicating , childbirth, or the puerperium, unspecified as to episode of care or not applicable Screening for diabetes mellitus Supervision of high risk in third trimester ([facility])- Primary Unspecified high-risk 30 weeks gestation of ([facility]) state, incidental Rash Rash and other nonspecific skin eruption Other obesity due to excess calories affecting , antepartum ([facility]) Allergic rhinitis, unspecified seasonality, unspecified trigger Supervision of high risk in third trimester ([facility])- Primary Unspecified high-risk Obesity affecting in third trimester, unspecified obesity type (HCC) 35 weeks gestation of ([facility]) state, incidental 36 weeks gestation of (HCC)- [...] OB DIP B/O [facility] Diagnosis 24 weeks gestation of [...] excess calories affecting , antepartum ([facility]) Allergic rhinitis, unspecified seasonality, unspecified trigger Supervision [...] (HCC) Unspecified high-risk Obesity in ([facility]) Obesity complicating , childbirth, or the puerperium, unspecified as to episode of care or not applicable Positive GBS test documented in this encounter [facility] Discharge instructionsAdditional Instructions Follow-up your HEALTH ADMINISTRATOR and your primary care physician as needed. Your test today looked good. No signs of a blood clot or heart attack.[facility] Work Phone: Reason for referral (narrative)* Outpatient Procedure (Routine) - Pending Review Specialty Diagnoses / Procedures Referred By Lance t Referred To Contact [facility] Diagnoses Malpositioned intrauterine device (IUD), initial encounter Encounter for IUD removal Procedures REMOVE INTRAUTERINE DEVICE REMOVE INTRAUTERINE DEVICE Janelle Marin MD [address] [place] [address] [facility] [address] [place] [address] Referral ID Status Reason Start Date Expiration Date Visits Requested Visits Authorized [id number] Pending Review Auto-Generat ed Referral 05/13/2023 05/12/2024 1 1 [facility] for referral (narrative)* Diagnostic Procedure Only (Routine) - Closed Specialty Diagnoses / Procedures Referred By Contac t Referred To Contact [facility] Diagnoses Pelvic pain in female Procedures US FEMALE PELVIS TRANSVAG US TRANSVAGINAL Delfina Watson APRN.CNM [address] [place] [address] [place] [address] Referral ID Status Reason Start Date Expiration Date V isits Requested Visits Authorized [id number] Closed Auto-Generate d Referral 05/03/2023 06/01/2024 1 1 [facility] for referral (narrative)* Diagnostic Procedure Only (Routine) - Closed Specialty Diagnoses / Procedures Referred By Contac t Referred To Contact [facility] Diagnoses Pelvic pain in female Procedures US FEMALE PELVIS TRANSVAG US TRANSVAGINAL Delfina Watson APRN.CNM [address] [place] [address] [place] [address] Referral ID Status Reason Start Date Expiration Date V isits Requested Visits Authorized [id number] Closed Auto-Generate d Referral 05/03/2023 06/01/2024 1 1 [facility] for referral (narrative)* Diagnostic Procedure Only (Routine) - Authorized Specialty Diagnoses / Procedures Referred By Contac t Referred To Contact [facility] Diagnoses Encounter for care in first trimester of first 7 weeks gestation of Procedures NUCHAL TRANSLUCENCY WHI US NUCHAL TRANSLUCENCY 1ST GESTATION Nilda Stiles APRN.CNP [address] [place] [address] [place] [id number] Referral ID Status Reason Start Date Expiration Date Visits Requested Visits Authorized [id number] Authorized Auto-Generat ed Referral 02/20/2025 1 1 [facility] for referral (narrative)* Diagnostic Procedure Only (Routine) - Authorized Specialty Diagnoses / Procedures Referred By Contac t Referred To Contact [facility] Diagnoses Supervision of normal first teen in first trimester 13 weeks gestation of Obesity in Procedures OBSTETRIC ULTRASOUND WHI US PREG UTERUS AFTER 1ST TRIMEST GESTATION Delfina Watson APRN.CNM [address] [place] [address] [facility] [address] [place] [address] Referral ID Status Reason Start Date Expiration Date Visits Requested Visits Authorized [id number] Authorized Auto-Generat ed Referral 04/03/2024 04/03/2025 1 1 [facility] for referral (narrative)No reason for referral information availableWMercy Health [facility] Work Phone: Reason for visit Narrative* Outpatient Procedure (Routine) - Authorized Specialty Diagnoses / Procedures Referred By Contac t Referred To Contact [facility] Diagnoses Malpositioned intrauterine device (IUD), initial encounter Encounter for IUD removal Procedures REMOVE INTRAUTERINE DEVICE REMOVE INTRAUTERINE DEVICE Janelle Marin MD [address] [place] [address] [facility] [address] [place] [address] Referral ID Status Reason Start Date Expiration Date Visits Requested Visits Authorized [id number] Authorized Auto-Generat ed Referral 05/16/2023 03/06/2024 2 2 [facility] Concerns Infection Onset Date Last Indicated Resolved Time COVID-19 Rule-Out 10/05/2021 10/05/2021 Infection Onset Date Last Indicated Resolved Time COVID-19 Rule-Out 01/18/2022 01/18/2022 Reason for Referral Specialty Diagnoses / Procedures Referred By Contac t Referred To Contact Diagnoses Ramon Chinchilla MD [address] [place] [address] Referral ID Status Reason Start Date Expiration Date Visits Re quested Visits Authorized [id number] Closed 1 1 Specialty Diagnoses / Procedures Referred By Contac t Referred To Contact Diagnoses BV (bacterial vaginosis) Nilda Stiles APRN.[employer]ASS SC[employer]ION [address] [place] [address] Referral ID Status Reason Start Date Expiration Date Visits Re quested Visits Authorized [id number] Closed 1 1 Specialty Diagnoses / Procedures Referred By Contac t Referred To Contact Allergy Diagnoses Adverse food reaction, initial encounter Procedures CONSULT TO ALLERGY/IMMUNOLOGY OFFICE/OUTPATIENT [facility] 60 MINUTES Sommer Hernandez PA-C [address] [place] [address] Referral ID Status Reason Start Date Expiration Date Visits Requested Visits Authorized [id number] Authorized PCP Requested Referral 10/31/2023 10/30/2024 1 1 Chief Complaint and Reason for Visit Chief Complaint Admit Date SOB September 04, 2024 10:11 am Chief Complaint Admit Date SOB September 04, 2024 10:11 am [facility] [employer] October 12, 2024 11: 20pm Advance Directives Advance Directive Response Recorded Date/ Time Do you have a Healthcare Power of Ornament Stitcher? No September 04, 2024 10:30am Summary Purpose [...] or prosecute any alcohol or drug abuse patient.[facility] the event this information is protected by the Federal Confidentiality of Alcohol and Drug Abuse Patient Records regulations: The Federal rules restrict any use of the information to criminally investigate or prosecute any alcohol or drug abuse patient.[facility] HospitalIn the event this information is protected by the Federal Confidentiality of Alcohol and Drug Abuse Patient Records regulations: The Federal rules restrict any use of the information to criminally investigate or prosecute any alcohol or drug abuse patient.[facility] HospitalIn the event this information is protected by the Federal Confidentiality of Alcohol and Drug Abuse Patient Records regulations: The Federal rules restrict any use of the information to criminally investigate or prosecute any alcohol or drug abuse patient.[facility] HospitalIn the event this information is protected by the Federal Confidentiality of Alcohol and Drug Abuse Patient Records regulations: The Federal rules restrict any use of the information to criminally investigate or prosecute any alcohol or drug abuse patient.[facility] HospitalIn the event this information is protected by the Federal Confidentiality of Alcohol and Drug Abuse Patient Records regulations: The Federal rules restrict any use of the information to criminally investigate or prosecute any alcohol or drug abuse patient.[facility] HospitalIn the event this information is protected by the Federal Confidentiality of Alcohol and Drug Abuse Patient Records regulations: The Federal rules restrict any use of the information to criminally investigate or prosecute any alcohol or drug abuse patient.[facility] HospitalIn the event this information is protected by the Federal Confidentiality of Alcohol and Drug Abuse Patient Records regulations: The Federal rules restrict any use of the information to criminally investigate or prosecute any alcohol or drug abuse patient.[facility] HospitalIn the event this information is protected by the Federal Confidentiality of Alcohol and Drug Abuse Patient Records regulations: The Federal rules restrict any use of the information to criminally investigate or prosecute any alcohol or drug abuse patient.[facility] HospitalIn the event this information is protected by the Federal Confidentiality of Alcohol and Drug Abuse Patient Records regulations: The Federal rules restrict any use of the information to criminally investigate or prosecute any alcohol or drug abuse patient.[facility] HospitalIn the event this information is protected by the Federal Confidentiality of Alcohol and Drug Abuse Patient Records regulations: The Federal rules restrict any use of the information to criminally investigate or prosecute any alcohol or drug abuse patient.[facility] HospitalIn the event this information is protected by the Federal Confidentiality of Alcohol and Drug Abuse Patient Records regulations: The Federal rules restrict any use of the information to criminally investigate or prosecute any alcohol or drug abuse patient.[facility] HospitalIn the event this information is protected by the Federal Confidentiality of Alcohol and Drug Abuse Patient Records regulations: The Federal rules restrict any use of the information to criminally investigate or prosecute any alcohol or drug abuse patient.[facility] HospitalIn the event this information is protected by the Federal Confidentiality of Alcohol and Drug Abuse Patient Records regulations: The Federal rules restrict any use of the information to criminally investigate or prosecute any alcohol or drug abuse patient.[facility] HospitalIn the event this information is protected by the Federal Confidentiality of Alcohol and Drug Abuse Patient Records regulations: The Federal rules restrict any use of the information to criminally investigate or prosecute any alcohol or drug abuse patient.[facility] HospitalIn the event this information is protected by the Federal Confidentiality of Alcohol and Drug Abuse Patient Records regulations: The Federal rules restrict any use of the information to criminally investigate or prosecute any alcohol or drug abuse patient.[facility] HospitalIn the event this information is protected by the Federal Confidentiality of Alcohol and Drug Abuse Patient Records regulations: The Federal rules restrict any use of the information to criminally investigate or prosecute any alcohol or drug abuse patient.[facility] HospitalIn the event this information is protected by the Federal Confidentiality of Alcohol and Drug Abuse Patient Records regulations: The Federal rules restrict any use of the information to criminally investigate or prosecute any alcohol or drug abuse patient.[facility] HospitalIn the event this information is protected by the Federal Confidentiality of Alcohol and Drug Abuse Patient Records regulations: The Federal rules restrict any use of the information to criminally investigate or prosecute any alcohol or drug abuse patient.[facility] HospitalIn the event this information is protected by the Federal Confidentiality of Alcohol and Drug Abuse Patient Records regulations: The Federal rules restrict any use of the information to criminally investigate or prosecute any alcohol or drug abuse patient.[facility] HospitalIn the event this information is protected by the Federal Confidentiality of Alcohol and Drug Abuse Patient Records regulations: The Federal rules restrict any use of the information to criminally investigate or prosecute any alcohol or drug abuse patient.[facility] HospitalIn the event this information is protected by the Federal Confidentiality of Alcohol and Drug Abuse Patient Records regulations: The Federal rules restrict any use of the information to criminally investigate or prosecute any alcohol or drug abuse patient.[facility] HospitalIn the event this information is protected by the Federal Confidentiality of Alcohol and Drug Abuse Patient Records regulations: The Federal rules restrict any use of the information to criminally investigate or prosecute any alcohol or drug abuse patient.[facility] HospitalIn the event this information is protected by the Federal Confidentiality of Alcohol and Drug Abuse Patient Records regulations: The Federal rules restrict any use of the information to criminally investigate or prosecute any alcohol or drug abuse patient.[facility] HospitalIn the event this information is protected by the Federal Confidentiality of Alcohol and Drug Abuse Patient Records regulations: The Federal rules restrict any use of the information to criminally investigate or prosecute any alcohol or drug abuse patient.[facility] HospitalIn the event this information is protected by the Federal Confidentiality of Alcohol and Drug Abuse Patient Records regulations: The Federal rules restrict any use of the information to criminally investigate or prosecute any alcohol or drug abuse patient.[facility] HospitalIn the event this information is protected by the Federal Confidentiality of Alcohol and Drug Abuse Patient Records regulations: The Federal rules restrict any use of the information to criminally investigate or prosecute any alcohol or drug abuse patient.[facility] HospitalIn the event this information is protected by the Federal Confidentiality of Alcohol and Drug Abuse Patient Records regulations: The Federal rules restrict any use of the information to criminally investigate or prosecute any alcohol or drug abuse patient.[facility] HospitalIn the event this information is protected by the Federal Confidentiality of Alcohol and Drug Abuse Patient Records regulations: The Federal rules restrict any use of the information to criminally investigate or prosecute any alcohol or drug abuse patient.[facility] HospitalIn the event this information is protected by the Federal Confidentiality of Alcohol and Drug Abuse Patient Records regulations: The Federal rules restrict any use of the information to criminally investigate or prosecute any alcohol or drug abuse patient.[facility] HospitalIn the event this information is protected by the Federal Confidentiality of Alcohol and Drug Abuse Patient Records regulations: The Federal rules restrict any use of the information to criminally investigate or prosecute any alcohol or drug abuse patient.[facility] HospitalIn the event this information is protected by the Federal Confidentiality of Alcohol and Drug Abuse Patient Records regulations: The Federal rules restrict any use of the information to criminally investigate or prosecute any alcohol or drug abuse patient.[facility] HospitalIn the event this information is protected by the Federal Confidentiality of Alcohol and Drug Abuse Patient Records regulations: The Federal rules restrict any use of the information to criminally investigate or prosecute any alcohol or drug abuse patient.[facility] HospitalIn the event this information is protected by the Federal Confidentiality of Alcohol and Drug Abuse Patient Records regulations: The Federal rules restrict any use of the information to criminally investigate or prosecute any alcohol or drug abuse patient.[facility] HospitalIn the event this information is protected by the Federal Confidentiality of Alcohol and Drug Abuse Patient Records regulations: The Federal rules restrict any use of the information to criminally investigate or prosecute any alcohol or drug abuse patient.[facility] HospitalIn the event this information is protected by the Federal Confidentiality of Alcohol and Drug Abuse Patient Records regulations: The Federal rules restrict any use of the information to criminally investigate or prosecute any alcohol or drug abuse patient.[facility] HospitalIn the event this information is protected by the Federal Confidentiality of Alcohol and Drug Abuse Patient Records regulations: The Federal rules restrict any use of the information to criminally investigate or prosecute any alcohol or drug abuse patient.[facility] HospitalIn the event this information is protected by the Federal Confidentiality of Alcohol and Drug Abuse Patient Records regulations: The Federal rules restrict any use of the information to criminally investigate or prosecute any alcohol or drug abuse patient.[facility] HospitalIn the event this information is protected by the Federal Confidentiality of Alcohol and Drug Abuse Patient Records regulations: The Federal rules restrict any use of the information to criminally investigate or prosecute any alcohol or drug abuse patient.[facility] HospitalIn the event this information is protected by the Federal Confidentiality of Alcohol and Drug Abuse Patient Records regulations: The Federal rules restrict any use of the information to criminally investigate or prosecute any alcohol or drug abuse patient.[facility] HospitalIn the event this information is protected by the Federal Confidentiality of Alcohol and Drug Abuse Patient Records regulations: The Federal rules restrict any use of the information to criminally investigate or prosecute any alcohol or drug abuse patient.[facility] HospitalIn the event this information is protected by the Federal Confidentiality of Alcohol and Drug Abuse Patient Records regulations: The Federal rules restrict any use of the information to criminally investigate or prosecute any alcohol or drug abuse patient.[facility] HospitalIn the event this information is protected by the Federal Confidentiality of Alcohol and Drug Abuse Patient Records regulations: The Federal rules restrict any use of the information to criminally investigate or prosecute any alcohol or drug abuse patient.[facility] HospitalIn the event this information is protected by the Federal Confidentiality of Alcohol and Drug Abuse Patient Records regulations: The Federal rules restrict any use of the information to criminally investigate or prosecute any alcohol or drug abuse patient.[facility] HospitalIn the event this information is protected by the Federal Confidentiality of Alcohol and Drug Abuse Patient Records regulations: The Federal rules restrict any use of the information to criminally investigate or prosecute any alcohol or drug abuse patient.[facility] HospitalIn the event this information is protected by the Federal Confidentiality of Alcohol and Drug Abuse Patient Records regulations: The Federal rules restrict any use of the information to criminally investigate or prosecute any alcohol or drug abuse patient.[facility] HospitalIn the event this information is protected by the Federal Confidentiality of Alcohol and Drug Abuse Patient Records regulations: The Federal rules restrict any use of the information to criminally investigate or prosecute any alcohol or drug abuse patient.[facility] HospitalIn the event this information is protected by the Federal Confidentiality of Alcohol and Drug Abuse Patient Records regulations: The Federal rules restrict any use of the information to criminally investigate or prosecute any alcohol or drug abuse patient.[facility] HospitalIn the event this information is protected by the Federal Confidentiality of Alcohol and Drug Abuse Patient Records regulations: The Federal rules restrict any use of the information to criminally investigate or prosecute any alcohol or drug abuse patient.[facility] HospitalIn the event this information is protected by the Federal Confidentiality of Alcohol and Drug Abuse Patient Records regulations: The Federal rules restrict any use of the information to criminally investigate or prosecute any alcohol or drug abuse patient.[facility] HospitalIn the event this information is protected by the Federal Confidentiality of Alcohol and Drug Abuse Patient Records regulations: The Federal rules restrict any use of the information to criminally investigate or prosecute any alcohol or drug abuse patient.[facility] HospitalIn the event this information is protected by the Federal Confidentiality of Alcohol and Drug Abuse Patient Records regulations: The Federal rules restrict any use of the information to criminally investigate or prosecute any alcohol or drug abuse patient.[facility] HospitalIn the event this information is protected by the Federal Confidentiality of Alcohol and Drug Abuse Patient Records regulations: The Federal rules restrict any use of the information to criminally investigate or prosecute any alcohol or drug abuse patient.[facility] HospitalIn the event this information is protected by the Federal Confidentiality of Alcohol and Drug Abuse Patient Records regulations: The Federal rules restrict any use of the information to criminally investigate or prosecute any alcohol or drug abuse patient.[facility] HospitalIn the event this information is protected by the Federal Confidentiality of Alcohol and Drug Abuse Patient Records regulations: The Federal rules restrict any use of the information to criminally investigate or prosecute any alcohol or drug abuse patient.[facility] HospitalIn the event this information is protected by the Federal Confidentiality of Alcohol and Drug Abuse Patient Records regulations: The Federal rules restrict any use of the information to criminally investigate or prosecute any alcohol or drug abuse patient.[facility] HospitalIn the event this information is protected by the Federal Confidentiality of Alcohol and Drug Abuse Patient Records regulations: The Federal rules restrict any use of the information to criminally investigate or prosecute any alcohol or drug abuse patient.[facility] HospitalIn the event this information is protected by the Federal Confidentiality of Alcohol and Drug Abuse Patient Records regulations: The Federal rules restrict any use of the information to criminally investigate or prosecute any alcohol or drug abuse patient.[facility] HospitalIn the event this information is protected by the Federal Confidentiality of Alcohol and Drug Abuse Patient Records regulations: The Federal rules restrict any use of the information to criminally investigate or prosecute any alcohol or drug abuse patient.[facility] HospitalIn the event this information is protected by the Federal Confidentiality of Alcohol and Drug Abuse Patient Records regulations: The Federal rules restrict any use of the information to criminally investigate or prosecute any alcohol or drug abuse patient.[facility] HospitalIn the event this information is protected by the Federal Confidentiality of Alcohol and Drug Abuse Patient Records regulations: The Federal rules restrict any use of the information to criminally investigate or prosecute any alcohol or drug abuse patient.[facility] HospitalIn the event this information is protected by the Federal Confidentiality of Alcohol and Drug Abuse Patient Records regulations: The Federal rules restrict any use of the information to criminally investigate or prosecute any alcohol or drug abuse patient.[facility] HospitalIn the event this information is protected by the Federal Confidentiality of Alcohol and Drug Abuse Patient Records regulations: The Federal rules restrict any use of the information to criminally investigate or prosecute any alcohol or drug abuse patient.[facility] HospitalIn the event this information is protected by the Federal Confidentiality of Alcohol and Drug Abuse Patient Records regulations: The Federal rules restrict any use of the information to criminally investigate or prosecute any alcohol or drug abuse patient.[facility] HospitalIn the event this information is protected by the Federal Confidentiality of Alcohol and Drug Abuse Patient Records regulations: The Federal rules restrict any use of the information to criminally investigate or prosecute any alcohol or drug abuse patient.[facility] HospitalIn the event this information is protected by the Federal Confidentiality of Alcohol and Drug Abuse Patient Records regulations: The Federal rules restrict any use of the information to criminally investigate or prosecute any alcohol or drug abuse patient.[facility] HospitalIn the event this information is protected by the Federal Confidentiality of Alcohol and Drug Abuse Patient Records regulations: The Federal rules restrict any use of the information to criminally investigate or prosecute any alcohol or drug abuse patient.[facility] HospitalIn the event this information is protected by the Federal Confidentiality of Alcohol and Drug Abuse Patient Records regulations: The Federal rules restrict any use of the information to criminally investigate or prosecute any alcohol or drug abuse patient.[facility] HospitalIn the event this information is protected by the Federal Confidentiality of Alcohol and Drug Abuse Patient Records regulations: The Federal rules restrict any use of the information to criminally investigate or prosecute any alcohol or drug abuse patient.[facility] HospitalIn the event this information is protected by the Federal Confidentiality of Alcohol and Drug Abuse Patient Records regulations: The Federal rules restrict any use of the information to criminally investigate or prosecute any alcohol or drug abuse patient.[facility] HospitalIn the event this information is protected by the Federal Confidentiality of Alcohol and Drug Abuse Patient Records regulations: The Federal rules restrict any use of the information to criminally investigate or prosecute any alcohol or drug abuse patient.[facility] HospitalIn the event this information is protected by the Federal Confidentiality of Alcohol and Drug Abuse Patient Records regulations: The Federal rules restrict any use of the information to criminally investigate or prosecute any alcohol or drug abuse patient.[facility] HospitalIn the event this information is protected by the Federal Confidentiality of Alcohol and Drug Abuse Patient Records regulations: The Federal rules restrict any use of the information to criminally investigate or prosecute any alcohol or drug abuse patient.[facility] HospitalIn the event this information is protected by the Federal Confidentiality of Alcohol and Drug Abuse Patient Records regulations: The Federal rules restrict any use of the information to criminally investigate or prosecute any alcohol or drug abuse patient.[facility] HospitalIn the event this information is protected by the Federal Confidentiality of Alcohol and Drug Abuse Patient Records regulations: The Federal rules restrict any use of the information to criminally investigate or prosecute any alcohol or drug abuse patient.[facility] HospitalIn the event this information is protected by the Federal Confidentiality of Alcohol and Drug Abuse Patient Records regulations: The Federal rules restrict any use of the information to criminally investigate or prosecute any alcohol or drug abuse patient.[facility] HospitalIn the event this information is protected by the Federal Confidentiality of Alcohol and Drug Abuse Patient Records regulations: The Federal rules restrict any use of the information to criminally investigate or prosecute any alcohol or drug abuse patient.[facility] HospitalIn the event this information is protected by the Federal Confidentiality of Alcohol and Drug Abuse Patient Records regulations: The Federal rules restrict any use of the information to criminally investigate or prosecute any alcohol or drug abuse patient.[facility] HospitalIn the event this information is protected by the Federal Confidentiality of Alcohol and Drug Abuse Patient Records regulations: The Federal rules restrict any use of the information to criminally investigate or prosecute any alcohol or drug abuse patient.[facility] HospitalIn the event this information is protected by the Federal Confidentiality of Alcohol and Drug Abuse Patient Records regulations: The Federal rules restrict any use of the information to criminally investigate or prosecute any alcohol or drug abuse patient.[facility] HospitalIn the event this information is protected by the Federal Confidentiality of Alcohol and Drug Abuse Patient Records regulations: The Federal rules restrict any use of the information to criminally investigate or prosecute any alcohol or drug abuse patient.[facility] Reason for Visit (unrecogniz ed section and content) Reason Comments ? ACID REFLUX burning sensation in throat after eating, throw up in my mouth, but all acid, mucus build up in my chest that will gag me when it comes up. Onset times 1 month. Reason Comments Well Child 15 yr [facility] Discussion Acid reflux; Allergi es- sees ENT Reason Comments [employer] Ultrasound Reason Comments Nausea sob, fever x [...] x4 days Reason Comments Well Child 17yr [facility] Reason Comments Orders Reason Comments Radiology US Specialty Diagnoses / Procedures Referred By Contac t Referred To Contact [facility] Diagnoses Pelvic pain in female Procedures US FEMALE PELVIS TRANSVAG US TRANSVAGINAL Delfina Watson APRN.CN [address] [place] [address] [place] [address] Referral ID Status Reason Start Date Expiration Date V isits Requested Visits Authorized [id number] Closed Auto-Generate d Referral 05/03/2023 06/01/2024 1 [...] Referred By Contac t Referred To Contact [facility] Diagnoses Encounter for care in first trimester of first 7 weeks gestation of Procedures NUCHAL TRANSLUCENCY WHI US NUCHAL TRANSLUCENCY 1ST GESTATION Nilda Stiles APRN.GLASS SCULLION [address] [place] [address] [facility] [address] [place] [address] Referral ID Status Reason Start Date Expiration Date V isits Requested Visits Authorized [id number] Closed Auto-Generate d Referral 02/21/2024 02/20/2025 1 1 Reason Onset Date Comments Refill Request 04/10/2024 Reason Onset Date Comments Care 04/27/2024 Reason Comments Question (OB Question) Reason Onset Date Comments Care 05/25/2024 Specialty Diagnoses / Procedures Referred By Contac t Referred To Contact [facility] Diagnoses Supervision of normal first teen in first trimester 13 weeks gestation of Obesity in Procedures OBSTETRIC ULTRASOUND WHI US PREG UTERUS AFTER 1ST TRIMEST 1 GESTATION Delfina Watson APRN.CNM [address] [place] [address] Phone: tel: fax: [address] [phone] Referral ID Status Reason Start Date Expiration Date V isits Requested Visits Authorized [id number] Closed Auto-Generate d Referral 04/03/2024 04/03/2025 1 [...] Care Teams (unrecognized sec tion and content) Fiber Glass Worker Relationship Specialty Start Date End Date Que Chavez MD [address] [place] [id number] PCP - General Pediatrics 01/19/17 Fiber Glass Worker Relationship Specialty Start Date End Date Que Chavez MD [address] [place] [address] PCP - General Pediatrics 01/19/17 Fiber Glass Worker Relationship Specialty Start Date End Date Que Chavez MD [address] [place] [address] PCP - General Pediatrics 01/19/17 Fiber Glass Worker Relationship Specialty Start Date End Date Que Chavez MD [address] [place] [address] PCP - General Pediatrics 01/19/17 Fiber Glass Worker Relationship Specialty Start Date End Date Que Chavez MD [address] [place] [address] [place] [address] PCP - General Pediatrics 01/19/17 Fiber Glass Worker Relationship Specialty Start Date End Date Que Chavez MD [address] [place] [address] PCP - General Pediatrics 01/19/17 Fiber Glass Worker Relationship Specialty Start Date End Date Que Chavez MD [address] [place] [address] PCP - General Pediatrics 01/19/17 Fiber Glass Worker Relationship Specialty Start Date End Date Que Chavez MD [address] [place] [address] PCP - General Pediatrics 01/19/17 Fiber Glass Worker Relationship Specialty Start Date End Date Que Chavez MD [address] [place] [address] PCP - General Pediatrics 01/19/17 Fiber Glass Worker Relationship Specialty Start Date End Date Que Chavez MD [address] [place] [address] PCP - General Pediatrics 01/19/17 Fiber Glass Worker Relationship Specialty Start Date End Date Que Chavez MD [address] [place] [address] PCP - General Pediatrics 01/19/17 Fiber Glass Worker Relationship Specialty Start Date End Date Que Chavez MD [address] [place] [address] PCP - General Pediatrics 01/19/17 Fiber Glass Worker Relationship Specialty Start Date End Date Que Chavez MD [address] [place] [address] PCP - General Pediatrics 01/19/17 Fiber Glass Worker Relationship Specialty Start Date End Date Que Chavez MD [address] [place] [address] PCP - General Pediatrics 01/19/17 Fiber Glass Worker Relationship Specialty Start Date End Date Que Chavez MD [address] [place] [address] PCP - General Pediatrics 01/19/17 Fiber Glass Worker Relationship Specialty Start Date End Date Que Chavez MD [address] [place] [address] PCP - General Pediatrics 01/19/17 Fiber Glass Worker Relationship Specialty Start Date End Date Que Chavez MD [address] [place] [address] PCP - General Pediatrics 01/19/17 Fiber Glass Worker Relationship Specialty Start Date End Date Que Chavez MD [address] [place] [address] PCP - General Pediatrics 01/19/17 Fiber Glass Worker Relationship Specialty Start Date End Date Que Chavez MD [address] [place] [address] PCP - General Pediatrics 01/19/17 Fiber Glass Worker Relationship Specialty Start Date End Date Que Chavez MD [address] [place] [address] PCP - General Pediatrics 01/19/17 Fiber Glass Worker Relationship Specialty Start Date End Date Que Chavez MD [address] [place] [address] PCP - General Pediatrics 01/19/17 Fiber Glass Worker Relationship Specialty Start Date End Date Que Chavez MD [address] [place] [address] PCP - General Pediatrics 01/19/17 Fiber Glass Worker Relationship Specialty Start Date End Date Que Chavez MD [address] [place] [address] PCP - General Pediatrics 01/19/17 Fiber Glass Worker Relationship Specialty Start Date End Date Que Chavez MD [address] [place] [address] PCP - General Pediatrics 01/19/17 Fiber Glass Worker Relationship Specialty Start Date End Date Que Chavez MD [address] [place] [address] PCP - General Pediatrics 01/19/17 Fiber Glass Worker Relationship Specialty Start Date End Date Que Chavez MD [address] [place] [address] PCP - General Pediatrics 01/19/17 Fiber Glass Worker Relationship Specialty Start Date End Date Ruiz Vega DO [address] [place] [address] PCP - General Family Medicine 08/13/24 Fiber Glass Worker Relationship Specialty Start Date End Date Ruiz Vega DO [address] [place] [address] PCP - General Family Medicine 08/13/24 Maria Alejandra Morel, HEEL WASHER STRINGING MACHINE OPERATOR.GLASS SCULLION [address] [place] [address] Legal Researcher Family Medicine 08/16/24 Fiber Glass Worker Relationship Specialty Start Date End Date Ruiz Vega DO [address] [place] [address] PCP - General Family Medicine 08/13/24 Maria Alejandra Morel, HEEL WASHER STRINGING MACHINE OPERATOR.GLASS SCULLION [address] [place] [address] Legal Researcher Family Medicine 08/16/24 Sheri Harrison, HEEL WASHER STRINGING MACHINE OPERATOR.[employer]ASS SCULLION [address] [facility] [address] Legal Researcher Family Medicine 08/20/24 Team Status: Active Member Role/Relationship Status Dates Dr. Ruiz Vega DO Primary Care Provider Active Team Status: Inactive Member Role/Relationship Status Dates Dr. Ruiz Vega DO Primary Care Provider Active Start: September 04, 2024 End: September 04, 2024 Dr. Conrado Richardson MD Emergency Provider Active S tart: September 04, 2024 End: September 04, 2024 Fiber Glass Worker Relationship Specialty Start Date End Date Ruiz Vega DO [address] [place] [address] PCP - General Family Medicine 08/13/24 Maria Alejandra Morel, HEEL WASHER STRINGING MACHINE OPERATOR.GLASS SCULLION [address] [place] [address] [facility] 08/16/24 Sheri Harrison, HEEL WASHER STRINGING MACHINE OPERATOR.GLASS SCULLION [address] [place] [address] [facility] 08[facility]20/24 Fiber Glass Worker Relationship Specialty Start Date End Date Ruiz Vega DO [address] [place] [address] PCP - General Family Medicine 08/13/24 AdrielMaria Alejandra, HEEL WASHER STRINGING MACHINE OPERATOR.[employer] SC[employer]ION [address] [place] [address] Legal Researcher Family Medicine 08/16/24 Sheri Harrison, HEEL WASHER STRINGING MACHINE OPERATOR.[employer] SCULLION [address] [place] [address] Legal Researcher Family Medicine 08/20/24 Fiber Glass Worker Relationship Specialty Start Date End Date Ruiz Vega DO [address] [place] [address] PCP - General Family Medicine 08/13/24 Maria Alejandra Morel, HEEL WASHER STRINGING MACHINE OPERATOR.[employer] SCULLION [address] [place] [address] Legal Researcher Family Medicine 08/16/24 Sheri Harrison APRN.[facility] SC[employer] [address] [place] [address] Legal Researcher Family Medicine 08/20/24 Fiber Glass Worker Relationship Specialty Start Date End Date Ruiz Vega DO [address] [place] [address] PCP - General Family Medicine 08/13/24 Maria Alejandra Morel, HEEL WASHER STRINGING MACHINE OPERATOR.[employer] SCULLION [address] [place] [address] Legal Researcher Family Medicine 08/16/24 Sheri Harrison HEEL WASHER STRINGING MACHINE OPERATOR.[employer] SC[employer] [address] [place] [address] Legal Researcher Family Medicine 08/20/24 Fiber Glass Worker Relationship Specialty Start Date End Date Ruiz Vega DO [address] [place] [address] PCP - General Family Medicine 08/13/24 Maria Alejandra Morel, HEEL WASHER STRINGING MACHINE OPERATOR.[employer]ASS SCULLION [address] [place] [address] Legal Researcher Family Medicine 08/16/24 Sheri Harrison, HEEL WASHER STRINGING MACHINE OPERATOR.[employer] SCULLION [address] [place] [address] Legal Researcher Family Medicine 08/20/24 Fiber Glass Worker Relationship Specialty Start Date End Date Ruiz Vega DO [address] [place] [address] PCP - General Family Medicine 08/13/24 Maria Alejandra Morel, HEEL WASHER STRINGING MACHINE OPERATOR.GLASS SCULLION [address] [place] [address] Legal Researcher Family Medicine 08/16/24 Sheri Harrison, HEEL WASHER STRINGING MACHINE OPERATOR.[employer] SC[employer]ION [address] [place] [address] Legal Researcher Family Medicine 08/20/24 Fiber Glass Worker Relationship Specialty Start Date End Date Ruiz Vega DO [address] [place] [address] PCP - General Family Medicine 08/13/24 Maria Alejandra Morel, HEEL WASHER STRINGING MACHINE OPERATOR.[employer]ASS SCULLION [address] [place] [address] Legal Researcher Family Medicine 08/16/24 Sheri Harrison, HEEL WASHER STRINGING MACHINE OPERATOR.[employer] SC[employer]ION [address] [place] [address] Legal Researcher Family Medicine 08/20/24 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 DATE CREATED AUTHOR AUTHOR'S TYRONE ATLILLIAN 10/11/2024 [facility] FOR RECORDS PERTAINING TO PATIENTS WHO ARE [...] BE BASED ON THE PRIMARY CLINICAL RECORDS. [employer] provides no warranty or guarantee of the accuracy or completeness of information in this document.
--- OUTSIDE RECORDS SUMMARY | 2024-10-13 09:17 | XMS RPT_ITS | CCD ---
Author Organization [facility] Care Team Providers Care Marketing Finance Manager Name Role Phone Que Chavez MD Primary Care Provider Unavailable Primary Care Provider Unavailbelkis e Ruiz Vega DO Primary Care Provider [facility] BRAKE SHOE REBUILDER.Maria Alejandra ALVES Unavailable [phone] [place] BRAKE SHOE REBUILDER.Sheri ALVES Unavailable [phone] Dr. Ruiz Vega DO Primary Care Provider [...] Primary Care Unavailable Flo Smith Attending Unavailable Anwton Miranda Attending Unavailable Scott, Que Referring Unavailable [...] to adverse reactions 8 Other: See Comments [facility] Medications Current Medications Medication Drug Class(es) Dates Sig (Normalized) Sig (Original) [id number] 200 actuat albuterol 0.09 mg/actuat metered dose [...] (FLONASE) 50 mcg/actuation nasal spray Use 1 [place] in each nostril once daily. 1 Each 3 07/29/2023 02/21/2024 Discontinued Comment on above: Use 1 [place] in each nostril once daily. Inhalational Spacing [...] 5 days. 15 tablet 10/31/2023 11/05/2023 Active Azveyu85-Olpe Fum-Folic Ac-Om3 (One A Day Women's Dha) 28 mg iron- 800 mcg combo pack (2 sources) Start: 02-24-2024 Vsmhbt22-Zktp Fum-Folic Ac-Om3 (One A Day Women's Dha) 28 mg iron- 800 mcg combo pack Active 1 NMA PO February 24, 2024 1:00am Start: 02-24-2024 Jvctnp98-Htmk Fum-Folic Ac-Om3 (One A Day Women's Dha) 28 mg iron- 800 mcg combo pack Active NMA PO February 24, 2024 1:00am Cjboatjc-Gt-Yxf-Fe-FA tab (20 sources) Start: 04-27-2024 take 1 tablet by mouth once daily Xvdfsdtv-La-Tpg-Fe-FA tab Take 1 tablet by mouth once daily. With folic acid and DHA as covered by insurance. 90 tablet 3 04/27/2024 Active Start: 04-27-2024 End: 07-26-2024 take 1 tablet by mouth once daily Qfzxdfes-Jt-Gfy-Fe-FA tab Take 1 tablet by mouth once [...] 08/25/2023 10/31/2023 Discontinued 168 hr ethinyl estradiol 0.75735 mg/hr / norelgestromin 0.36017 mg/hr transdermal system (2 sources) Progestin, Estrogen [...] take 1 capsule by mouth once daily L.acid,besnx-cifurw-p actoferr (CLAIRVEE) 5 billion cell- 400 mcg DFE cpDR Take 1 capsule by mouth once daily. For 15 days out of the month. 10/31/2023 Discontinued take 1 capsule by mo uth once daily L.acid,rdbnc-hmoxrp-iqyvlliih (CLAIRVEE) 5 billion cell- 400 mcg DFE cpDR Take 1 capsule by mouth once daily. For 15 days out of the month. Active take 1 capsule by mo uth once daily L.acid,rtlsw-ogltgv-arkawcgeh (CLAIRVEE) 5 billion cell- 400 mcg DFE [...] REFRIGERATED 30 capsule 11 07/29/2023 Active Lacto No.14-Dffezi-Wby-Larch 25B cell-25B cell-50 mg capsule (2 sources) Start: 10-04-2023 End: 10-12-2024 Lacto No.58-Vhvsnm-Byx-Larch 25B cell-25B cell-50 mg capsule Discontinued NMA PO October 04, 2023 12:00am October 12, 2024 11:37pm Start: 10-04-2023 Lacto No.76-Bi lujg-Gcg-Xlavd 25B cell-25B cell-50 mg capsule Active NMA [...] tablet by [facility] twice daily for 7 days. naproxen 500 [...] [Vaginal discharge during in third trimester ([facility])] Onset: 5 Episodic Other gastrointestinal disorders (1 source) Heartburn; Translations: [Heartburn during in third trimester ([facility])] Onset: Episodic Other inflammatory condition of skin [...] 5 Glucose Ql (U) Negative Neg mg/dL [facility] Interpretation and review of laboratory results Normal [facility] Protein.monoclonal (U) [Mass/Vol] Negative Neg mg/dL [facility] URINE OB DIP B/Oon 5 Glucose Ql (U) Negative Neg mg/dL [facility] Protein.monoclonal (U) [Mass/Vol] Negative Neg mg/dL [facility] URINE OB DIP B/Oon 5 Glucose Ql (U) Negative Neg mg/dL [facility] Interpretation and review of laboratory results Normal [facility] Protein.monoclonal (U) [Mass/Vol] Negative Neg mg/dL [facility] ROUTINE, GROUP B ST REPTOCOCCUS BY PCRon 09-12-2024 ROUTINE, GROUP B STREPTOCOCCUS BY PCR Detected Abnormal [facility] Comment on above: Performed By: #### G BPCR ####[facility] LAB[facility]IA [id number] [place] [address] [place] [facility] URINE OB DIP B/Oon 5 Glucose Ql (U) Negative Neg mg/dL [facility] Protein.monoclonal (U) [Mass/Vol] trace Neg mg/dL [facility] 12 Lead EKGon 09-04-2024 12 Lead EKG [facility] Cardiovascular Services [address] [place] [address] 12 Lead EKG 09/04/24 1024 MR#: [id number] Acct: [id number] Name: AMIRAH WOODARD Rep #: [id number] : 2005 19 From: Flo Smith MD [...] Abnormal ECG Confirmed by FLO SMITH MD ([id number]), magazine editor KAREN WATERS ([id number]) on 09/05/2024 1:39:37 PM Referred By: Confirmed By: FLO SMITH MD 09/05/24 1339 Date Flo Smith MD CC: Dr. Conrado Richardson MD; Dr. Ruiz Vega DO Signed Normal [facility] Absolute lymphocyte countOrd ered By: Conrado Richardson on 09-04-2024 Lymphocytes Auto (Unsp spec) [#/Vol] 1.97 10*3/uL 0.83-4.51 [facility] Absolute neutrophil countOrd ered By: Conrado Richardson on 09-04-2024 Neutrophils (Bld) [#/Vol] 8.4 10*3/uL High 2.0-7.7 [facility] Anion gap in Serum or Plasma Ordered By: Conrado Richardson on 09-04-2024 Anion gap [Moles/Vol] 11 mmol/L 5-15 [facility] Automated lymphocyte count a s percentage of total leukocytesOrdered By: Conrado Richardson on 09-04-2024 Lymphocytes/100 WBC Auto (Unsp spec) 16.7 % Low 19-41 [facility] BUN/creatinine ratioOrdered By: Conrado Richardson on 09-04-2024 Urea nitrogen/Creatinine [Mass ratio] 15.7 mg/mg 10- [facility] Basic Metabolic Profile (BMP )on 09-04-2024 BUN/CRE 15.7 RATIO Normal - [facility] Comment on above: Performed By: #### L 100.0100, L500.2500, L501.4021 #### [facility] [address] [place], [address] Calcium [Mass/Vol] 8.7 mg/dL Normal 7.6-11.0 [facility] Comment on above: Performed By: #### L 100.0100, L500.2500, L501.4021 #### [facility] [address] [place], [address] Chloride [Moles/Vol] 105 mmol/L Normal 98-108 [facility] Comment on above: Performed By: #### L 100.0100, L500.2500, L501.4021 #### [facility] [address] [place], [address] CO2 [Moles/Vol] 20.3 mmol/L Low 21.0-32.0 [facility] Comment on above: Performed By: #### L 100.0100, L500.2500, L501.4021 #### [facility] [address] [place], [address] Creatinine [Mass/Vol] 0.45 mg/dL Low 0.70-1.20 [facility] Comment on above: Performed By: #### L 100.0100, L500.2500, L501.4021 #### [facility] [address] [place], [address] ECRCL 226.86 ml/min Normal 50-250 [facility] Comment on above: Performed By: #### L 100.0100, L500.2500, L501.4021 #### [facility] [address] [place], [address] GAP 11 Normal 5-15 [facility] Comment on above: Performed By: #### L 100.0100, L500.2500, L501.4021 #### [facility] [address] [place], [address] GFR/1.73 sq M.predicted among non-blacks MDRD (S/P/Bld) [Vol rate/Area] 141 mL/min/{1.73_m2} Normal >60 [facility] Comment on above: Result Comment: mL/m in/1.73m2 CKD-EPI Creatinine Equation (2020) Performed By: #### L 100.0100, L500.2500, L501.4021 #### [facility] [address] [place], [address] Glucose [Mass/Vol] 91 mg/dL Normal 70-99 [facility] Comment on above: Performed By: #### L 100.0100, L500.2500, L501.4021 #### [facility] [address] [place], [address] Potassium [Moles/Vol] 3.8 mmol/L Normal 3.3-5.1 [facility] Comment on above: Performed By: #### L 100.0100, L500.2500, L501.4021 #### [facility] [address] [place], [address] Sodium [Moles/Vol] 137 mmol/L Normal 133-145 [facility] Comment on above: Performed By: #### L 100.0100, L500.2500, L501.4021 #### [facility] [address] [place], [address] Urea nitrogen [Mass/Vol] 7 mg/dL Normal 4-19 [facility] Comment on above: Performed By: #### L 100.0100, L500.2500, L501.4021 #### [facility] [address] [place], [address] Basophil percentageOrdered B y: Conrado Richardson on 09-04-2024 Basophils/100 WBC (Bld) 0.5 % 0-1 [facility] CBC W/Diff, Automatedon Absolute Lymph 1.97 X10 3/uL Normal 0.83-4.51 [facility] Comment on above: Performed By: #### L 100.0100, L500.2500, L501.4021 #### [facility] [address] [place], [address] Absolute Neut 8.4 X10 3/uL High 2.0-7.7 [facility] Comment on above: Performed By: #### L 100.0100, L500.2500, L501.4021 #### [facility] [address] [place], [address] Basophils/100 WBC (Bld) 0.5 % Normal 0-1 [facility] Comment on above: Performed By: #### L 100.0100, L500.2500, L501.4021 #### [facility] [address] [place], [address] Eosinophils/100 WBC (Bld) 2.2 % Normal 0-5 [facility] Comment on above: Performed By: #### L 100.0100, L500.2500, L501.4021 #### [facility] [address] [place], [address] Erythrocyte distribution width (RBC) [Ratio] 13.2 % Normal 11.6-14.6 [facility] Comment on above: Performed By: #### L 100.0100, L500.2500, L501.4021 #### [facility] [address] [place], [address] Hematocrit (Bld) [Volume fraction] 35.4 % Low 37-47 [facility] Comment on above: Performed By: #### L 100.0100, L500.2500, L501.4021 #### [facility] [address] [place], [address] Hemoglobin (Bld) [Mass/Vol] 11.6 g/dL Low 12.0-15.0 [facility] Comment on above: Performed By: #### L 100.0100, L500.2500, L501.4021 #### [facility] [address] [place], [address] IG% 1.200 High 0.0-0.9 [facility] Comment on above: Result Comment: IG% - Immature Granulocytes (promyelocytes, myelocytes and metamyelocytes) > 1% indicates that a LEFT SHIFT is Present. Performed By: #### L 100.0100, L500.2500, L501.4021 #### [facility] [address] [place], [address] Lymphocytes/100 WBC (Bld) 16.7 % Low 19-41 [facility] Comment on above: Performed By: #### L 100.0100, L500.2500, L501.4021 #### [facility] [address] [place], [address] MCH (RBC) [Entitic mass] 27.5 pg Normal 27.0-32.0 [facility] Comment on above: Performed By: #### L 100.0100, L500.2500, L501.4021 #### [facility] [address] [place], [address] MCHC (RBC) [Mass/Vol] 32.8 g/dL Normal 32-36 [facility] Comment on above: Performed By: #### L 100.0100, L500.2500, L501.4021 #### [facility] [address] [place], [address] MCV (RBC) [Entitic vol] 83.9 fL Normal 81-99 [facility] Comment on above: Performed By: #### L 100.0100, L500.2500, L501.4021 #### [facility] [address] [place], [address] Monocytes/100 WBC (Bld) 8.8 % Normal 0-10 [facility] Comment on above: Performed By: #### L 100.0100, L500.2500, L501.4021 #### [facility] [address] [place], [address] Neutrophils/100 WBC (Bld) 70.6 % High 47-70 [facility] Comment on above: Performed By: #### L 100.0100, L500.2500, L501.4021 #### [facility] [address] [place], [address] Nucleated RBC (Bld) [#/Vol] 0 10*3/uL Normal 0-5 [facility] Comment on above: Performed By: #### L 100.0100, L500.2500, L501.4021 #### [facility] [address] [place], [address] Platelet mean volume (Bld) [Entitic vol] 9.4 fL Normal 6.2-12.0 [facility] Comment on above: Performed By: #### L 100.0100, L500.2500, L501.4021 #### [facility] [address] [place], [address] Platelets (Bld) [#/Vol] 256 10*3/uL Normal 150-450 [facility] Comment on above: Performed By: #### L 100.0100, L500.2500, L501.4021 #### [facility] [address] [place], [address] RBC (Bld) [#/Vol] 4.22 10*6/uL Normal 4.2-5.4 [facility] Comment on above: Performed By: #### L 100.0100, L500.2500, L501.4021 #### [facility] [address] [place], [address] RDW SD 40.2 fl Normal 35.1-43.9 [facility] Comment on above: Performed By: #### L 100.0100, L500.2500, L501.4021 #### [facility] [address] [place], [address] WBC (Bld) [#/Vol] 11.8 10*3/uL High 4.4-11.0 [facility] Comment on above: Performed By: #### L 100.0100, L500.2500, L501.4021 #### [facility] [address] [place], [address] Rodrick 09-04-2024 JOSELYNN Telephone (OBGYWM) AMIRAH WOODARD ([id number]) 3 F Date Time Provider Department 09/04/24 [...] sprays in each nostril once daily. - Pvoddfjq-Nk-Ycw-Fe-FA tab Take 1 tablet by mouth once [...] Status:Closed by KIA BRASHER on 09/04/24 Normal [facility] CTA Chest W/WO Contraston CTA Chest W/WO Contrast [facility] Imaging Services [address] [place] [address] CTA Chest W/WO Contrast MR#: [id number] Acct: [id number] Name: AMIRAH WOODARD Rep #: [id number] : 2005 F 19 From: Gurjit Moreno MD PCP: Dr. Ruiz Vega, DO Status: REG ER Study: CTA Chest W/WO Contrast Date of Exam: 09/04/24 Exam# [id number] Ordering Dr: Conrado Richardson MD PROCEDURE: CTA [...] dissection No acute pulmonary process Reading Location: [id number] CC: Dr. Conrado Richardson MD; Dr. Ruiz Vega DO Personal Banking Assistant: Signed Normal [facility] Carbon dioxide, total [Moles /volume] in Central venous bloodOrdered By: Conrado Richardson on 09-04-2024 CO2 [Moles/Vol] 20.3 mmol/L Low 21.0-32.0 [facility] Chloride assayOrdered By: Wilson Richardson on 09-04-2024 Chloride [Moles/Vol] 105 mmol/L 98-108 [facility] Emergency Department Summary on 09-04-2024 Emergency Department Summary [facility] Medical Records Department [address] [place] [address] Emergency Department Summary 09/04/24 MR#: [id number] Acct: [id number] Name: AMIRAH WOODARD Rep #: [id number] : 2005 19 From: Conrado Richardson MD [...] discomfort that was diffuse. Lightheadedness. Saw her OTOLARYNGOLOGY PHYSICIAN in the office Dr. Adrienne Marin. Who [...] Factors: Negative for Marfan's Syndrome or Hypertension [facility] Medical History Left ankle pain Home Medications ???Medication ???Instructions ???Recorded ???Last Taken ???Type Lactobacillus 25 billion cap PO 10/04/23 Unknown History cell-Bifido 25 billion pusv-PQX-ipuwy capsule albuterol sulfate 90 mcg/actuation inhalation 10/04/23 [...] the ankles bilaterally. Dorsi plantarflexion intact. Normal ultrasound supervisor strength. Normal radial pulses. Back nontender. Neurologically [...] for ob (more content not included)... Normal [facility] Eosinophil percentageOrdered By: Conrado Richardson on 09-04-2024 Eosinophils/100 WBC (Bld) 2.2 % 0-5 [facility] Erythrocyte distribution wid th ratioOrdered By: Conrado Richardson on 09-04-2024 Erythrocyte distribution width (RBC) [Ratio] 13.2 % 11.6-14.6 [facility] Erythrocyte distribution wid th standard deviationOrdered By: Conrado Richardson on 09-04-2024 Erythrocyte distribution width (RBC) [Ratio] 40.2 fl 35.1-43.9 [facility] Glomerular filtration rate ( GFR) estimation/1.73 sq m using serum, plasma, or whole bOrdered By: Conrado Richardson on 09-04-2024 GFR/1.73 sq M.predicted among non-blacks MDRD (S/P/Bld) [Vol rate/Area] 141 mL/min/{1.73_m2} >60 [facility] Comment on above: mL/min/1.73m2 CKD-EP I Creatinine Equation (2020) Hematocrit Auto (Bld) [Volum e fraction]Ordered By: Conrado Richardson on 09-04-2024 Hematocrit (Bld) [Volume fraction] 35.4 % Low 37-47 [facility] Hemoglobin measurementOrdere d By: Conrado Richardson on 09-04-2024 Hemoglobin (Bld) [Mass/Vol] 11.6 g/dL Low 12.0-15.0 [facility] Immature granulocytes/100 WB C Auto (Bld)Ordered By: Conrado Richardson on 09-04-2024 Immature granulocytes/100 WBC (Bld) 1.200 % High 0.0-0.9 [facility] Comment on above: IG% - Immature Granu locytes (promyelocytes, myelocytes and metamyelocytes) > 1% indicates that a LEFT SHIFT is Present. L501.4021on 09-04-2024 Trop T High Sen 7 ng/L Normal <=14 [facility] Comment on above: Performed By: #### L 100.0100, L500.2500, L501.4021 #### [facility] [address] [place], [place], [address] MCV (mean corpuscular volume ) determinationOrdered By: Conrado Richardson on 09-04-2024 MCV (RBC) [Entitic vol] 83.9 fL 81-99 [facility] Mean corpuscular hemoglobin (MCH) determinationOrdered By: Conrado Richardson on 09-04-2024 MCH (RBC) [Entitic mass] 27.5 pg 27.0-32.0 [facility] Mean corpuscular hemoglobin concentration (MCHC) determinationOrdered By: Conrado Richardson on 09-04-2024 MCHC (RBC) [Mass/Vol] 32.8 g/dL 32-36 [facility] Mean platelet volume determi nationOrdered By: Conrado Richardson on 09-04-2024 Platelet mean volume (Bld) [Entitic vol] 9.4 fL 6.2-12.0 [facility] Monocyte percentageOrdered B y: Conrado Richardson on 09-04-2024 Monocytes/100 WBC (Bld) 8.8 % 0-10 [facility] Neutrophil percentageOrdered By: Conrado Richardson on 09-04-2024 Neutrophils/100 WBC (Bld) 70.6 % High 47-70 [facility] Nucleated red blood cell per centageOrdered By: Conrado Richardson on 09-04-2024 Nucleated RBC/100 WBC (Bld) [Ratio] 0 % 0-5 [facility] Platelet countOrdered By: Wilson Richardson on 09-04-2024 Platelets (Bld) [#/Vol] 256 10*3/uL 150-450 [facility] Potassium measurement (mass/ volume)Ordered By: Conrado Richardson on 09-04-2024 Potassium (Unsp spec) [Mass/Vol] 3.8 mmol/L 3.3-5.1 [facility] RBC Auto (Bld) [#/Vol]Ordere d By: Conrado Richardson on 09-04-2024 RBC (Bld) [#/Vol] 4.22 10*6/uL 4.2-5.4 [facility] Serum creatinine measurement (mass/volume)Ordered By: Conrado Richardson on 09-04-2024 Creatinine [Mass/Vol] 0.45 mg/dL Low 0.70-1.20 [facility] Serum glucose measurement (m ass/volume)Ordered By: Conrado Richardson on 09-04-2024 Glucose [Mass/Vol] 91 mg/dL 70-99 [facility] Serum or plasma calcium tra urement (mass/volume)Ordered By: Conrado iRchardson on 09-04-2024 Calcium [Mass/Vol] 8.7 mg/dL 7.6-11.0 [facility] Serum or plasma urea nitroge n measurement (mass/volume)Ordered By: Conrado Richardson on 09-04-2024 Urea nitrogen [Mass/Vol] 7 mg/dL 4-19 [facility] Sodium levelOrdered By: Conrado Richardson on 09-04-2024 Sodium [Moles/Vol] 137 mmol/L 133-145 [facility] Troponin T.cardiac [Mass/vol ume] in Serum or Plasma by High sensitivity methodOrdered By: Conrado Richardson on 09-04-2024 Troponin T.cardiac High sensitivity method [Mass/Vol] 7 ng/L <14 [facility] URINE OB DIP B/Oon 5 Glucose Ql (U) Negative Neg mg/dL [facility] Protein.monoclonal (U) [Mass/Vol] trace Neg mg/dL Connor [facility] White blood cell (WBC) count Ordered By: Conrado Richardson on 09-04-2024 WBC (Bld) [#/Vol] 11.8 10*3/uL High 4.4-11.0 [facility] URINE OB DIP B/Oon 5 Glucose Ql (U) Negative Neg mg/dL [facility] Interpretation and review of laboratory results Normal [facility] Protein.monoclonal (U) [Mass/Vol] Negative Neg mg/dL [facility] CNOVon 08-13-2024 CNOV Office Visit (FAMPWS ) SHAHZAD WOODARDJOSHAileen Clifford ([id number]) 3 F Date Time Provider Department 08/13/24 9:20 [facility] During your visit today, we [...] Rhonda. - Planning a vaginal delivery at [place]. - Taking vitamins; denies nausea or emesis. 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 Recording using [employer] software for draft documentation of the visit was discussed with the patient/authorized loan servicing representative; all questions welcomed and answered. Patient/authorized loan servicing representative agreed to proceed Allergies As of [...] (CLARITIN ORA (more content not included)... Normal [facility] CNPNon 08-06-2024 CNPN Telephone (OBGYWM) AMIRAH WOODARD ([id number]) 3 F Date Time Provider Department 08/06/24 [place] OBGYWM During your visit today, we recorded the following information about you: Caroline Mora RN 08/06/2024 12:39 PM Signed Breast pump request received from [employer]. Order to provider to sign. JIA Shane [...] sprays in each nostril once daily. - Ercihjgx-Ej-Vft-Fe-FA tab Take 1 tablet by mouth once [...] Encounter Status:Closed by CAROLINE MORA on 08/08/24 [facility] 08-03-2024 [facility] Telephone (OGFVWE) AMIRAH WOODARD ([id number]) 3 F Date Time Provider Department 08/03/24 NURSE ELECTRIC TOOL REPAIRER FRVW KAITY OGFVWE During your visit today, [...] sprays in each nostril once daily. - Ktmgfkrh-Ib-Ind-Fe-FA tab Take 1 tablet by mouth once [...] Status:Closed by TIO HUTCHISON on 08/03/24 Normal [facility] BILE ACIDS, TOTALon 08-02-19 25 Bile acid [Moles/Vol] 5.3 umol/L Normal <13.6 [facility] Comment on above: Order Comment: Speci men Type: SWAB Ordering Facility: [facility] Address: [address] [place] [address] Result Comment: Refe rence interval applies to [...] Performed By: #### C VTV, BVAMP #### [facility] CLIA [id number] [address] [place], [place] [id number] [place] CBC W Auto Differential pane l (Bld)on 08-01-2024 Basophils (Bld) [#/Vol] 0.09 10*3/uL [facility] Basophils/100 WBC (Bld) 0.6 % [facility] Differential cell count method Nom (Bld) Auto [facility] Eosinophils (Bld) [#/Vol] 0.82 10*3/uL High [facility] Eosinophils/100 WBC (Bld) 5.8 % [facility] Erythrocyte distribution width (RBC) [Ratio] 12.6 % 11.5 - 15.0 % [facility] Hematocrit (Bld) [Volume fraction] 36.5 % 36.0 - 46.0 % [facility] Hemoglobin (Bld) [Mass/Vol] 12 g/dL 11.5 - 15.5 g/dL [facility] Immature granulocytes (Bld) [#/Vol] 0.25 10*3/uL [facility] Immature granulocytes/100 WBC (Bld) 1.8 % [facility] Interpretation and review of laboratory results Abnormal [facility] Lymphocytes (Bld) [#/Vol] 2.2 10*3/uL [facility] Lymphocytes/100 WBC (Bld) 15.6 % [facility] MCH (RBC) [Entitic mass] 28 pg 26.0 - 34.0 pg [facility] MCHC (RBC) [Mass/Vol] 32.9 g/dL 30.5 - 36.0 g/dL [facility] MCV (RBC) [Entitic vol] 85.3 fL 80.0 - 100.0 fL [facility] Monocytes (Bld) [#/Vol] 0.92 10*3/uL High [facility] Monocytes/100 WBC (Bld) 6.5 % [facility] Neutrophils (Bld) [#/Vol] 9.86 10*3/uL High [facility] Neutrophils/100 WBC (Bld) 69.7 % [facility] Nucleated RBC (Bld) [#/Vol] [facility] Nucleated RBC/100 WBC (Bld) [Ratio] 0 % /100 WBC [facility] Platelet mean volume (Bld) [Entitic vol] 9.1 fL 9.0 - 12.7 fL [facility] Platelets (Bld) [#/Vol] 282 10*3/uL [facility] RBC (Bld) [#/Vol] 4.28 10*6/uL 3.90 - 5.2 0 m/uL [facility] WBC (Bld) [#/Vol] 14.14 10*3/uL High [facility] Basophils (Bld) [#/Vol] 0.09 10*3/uL Normal <0.11 [facility] Comment on above: Order Comment: Speci men Type: BLOOD SPECIMENOrdering Facility: [facility] Address: [address] [place], [place] [address] Performed By: #### 5 7021-8 ####[facility] [id number] [place] [address] [place] Basophils/100 WBC (Bld) 0.6 % Normal [facility] Comment on above: Order Comment: Speci men Type: BLOOD SPECIMENOrdering Facility: [facility] Address: [address] [place] [address] Performed By: #### 5 7021-8 ####[facility] CENTERLIA [id number] [place] [address] [place] Differential cell count method Nom (Bld) Auto Normal [facility] Comment on above: Order Comment: Speci men Type: BLOOD SPECIMENOrdering Facility: [facility] Address: [address] [place] [address] Performed By: #### 5 7021-8 ####[facility] [id number] [place] [address] [place] Eosinophils (Bld) [#/Vol] 0.82 10*3/uL High <0.46 [facility] Comment on above: Order Comment: Speci men Type: BLOOD SPECIMENOrdering Facility: [facility] Address: [address] [place] [address] Performed By: #### 5 7021-8 ####[facility] CENTERLIA [id number] [place] [address] [place] Eosinophils/100 WBC (Bld) 5.8 % Normal [facility] Comment on above: Order Comment: Speci men Type: BLOOD SPECIMENOrdering Facility: [facility] Address: [address] [place] [address] Performed By: #### 5 7021-8 ####[facility] [id number] [place] [address] [place] Erythrocyte distribution width (RBC) [Ratio] 12.6 % Normal 11.5-15.0 [facility] Comment on above: Order Comment: Speci men Type: BLOOD SPECIMENOrdering Facility: [facility] Address: [address] [place] [address] Performed By: #### 5 7021-8 ####[facility] NEAL [id number] [place] [address] [place] Hematocrit (Bld) [Volume fraction] 36.5 % Normal 36.0-46.0 [facility] Comment on above: Order Comment: Speci men Type: BLOOD SPECIMENOrdering Facility: [facility] Address: [address] [place] [address] Performed By: #### 5 7021-8 ####[facility] HOSPITALNCMILVIA [id number] [place] [address] [place] Hemoglobin (Bld) [Mass/Vol] 12.0 g/dL Normal 11.5-15.5 [facility] Comment on above: Order Comment: Speci men Type: BLOOD SPECIMENOrdering Facility: [facility] Address: [address] [place] [address] Performed By: #### 5 7021-8 ####[facility] HOSPITALANNAHilario [id number] [place] [address] [place] Immature granulocytes (Bld) [#/Vol] 0.25 10*3/uL High <0.10 [facility] Comment on above: Order Comment: Speci men Type: BLOOD SPECIMENOrdering Facility: [facility] Address: [address] [place] [address] Performed By: #### 5 7021-8 ####[facility]PITALNCLIA [id number] [place] [address] [place] Immature granulocytes/100 WBC (Bld) 1.8 % Normal [facility] Comment on above: Order Comment: Speci men Type: BLOOD SPECIMENOrdering Facility: [facility] Address: [address] [place] [address] Performed By: #### 5 7021-8 ####[facility] MILLWNCLIA [id number] [place] [address] [place] Lymphocytes (Bld) [#/Vol] 2.20 10*3/uL Normal 1.00-4.00 [facility] Comment on above: Order Comment: Speci men Type: BLOOD SPECIMENOrdering Facility: [facility] Address: [address] [place] [address] Performed By: #### 5 7021-8 ####[facility] CENTERLIA [id number] [place] [address] [place] Lymphocytes/100 WBC (Bld) 15.6 % Normal [facility] Comment on above: Order Comment: Speci men Type: BLOOD SPECIMENOrdering Facility: [facility] Address: [address] [place] [address] Performed By: #### 5 7021-8 ####[facility] [id number] [place] [address] [place] MCH (RBC) [Entitic mass] 28.0 pg Normal 26.0-34.0 [facility] Comment on above: Order Comment: Speci men Type: BLOOD SPECIMENOrdering Facility: [facility] Address: [address] [place] [address] Performed By: #### 5 7021-8 ####[facility] CENTERLIA [id number] [place] [address] [place] MCHC (RBC) [Mass/Vol] 32.9 g/dL Normal 30.5-36.0 [facility] Comment on above: Order Comment: Speci men Type: BLOOD SPECIMENOrdering Facility: [facility] Address: [address] [place] [address] Performed By: #### 5 7021-8 ####[facility] HOSPITALNCLIA [id number] [place] [address] [place] MCV (RBC) [Entitic vol] 85.3 fL Normal 80.0-100.0 [facility] Comment on above: Order Comment: Speci men Type: BLOOD SPECIMENOrdering Facility: [facility] Address: [address] [place] [address] Performed By: #### 5 7021-8 ####[facility] HOSPITALNCSHRINERS HOSPITALS FOR CHILDREN [id number] [place] [address] [place] Monocytes (Bld) [#/Vol] 0.92 10*3/uL High <0.87 [facility] Comment on above: Order Comment: Speci men Type: BLOOD SPECIMENOrdering Facility: [facility] Address: [address] [place] [address] Performed By: #### 5 7021-8 ####[facility] HOSPITALNCSHRINERS HOSPITALS FOR CHILDREN [id number] [place] [address] [place] Monocytes/100 WBC (Bld) 6.5 % Normal [facility] Comment on above: Order Comment: Speci men Type: BLOOD SPECIMENOrdering Facility: [facility] Address: [address] [place] [address] Performed By: #### 5 7021-8 ####[facility] CENTERLI [id number] [place] [address] [place] Neutrophils (Bld) [#/Vol] 9.86 10*3/uL High 1.45-7.50 [facility] Comment on above: Order Comment: Speci men Type: BLOOD SPECIMENOrdering Facility: [facility] Address: [address] [place] [address] Performed By: #### 5 7021-8 ####[facility] HOSPITALNCLI [id number] [place] [address] [place] Neutrophils/100 WBC (Bld) 69.7 % Normal [facility] Comment on above: Order Comment: Speci men Type: BLOOD SPECIMENOrdering Facility: [facility] Address: [address] [place] [address] Performed By: #### 5 7021-8 ####[facility] MICAHNGOC [id number] [place] [address] [place] Nucleated RBC (Bld) [#/Vol] 10*3/uL Normal <0.01 [facility] Comment on above: Order Comment: Speci men Type: BLOOD SPECIMENOrdering Facility: [facility] Address: [address] [place] [address] Performed By: #### 5 7021-8 ####[facility] HOSPITALNCMILVIA [id number] [place] [address] [place] Nucleated RBC/100 WBC (Bld) [Ratio] 0.0 /100 WBC Normal [facility] Comment on above: Order Comment: Speci men Type: BLOOD SPECIMENOrdering Facility: [facility] Address: [address] [place] [address] Performed By: #### 5 7021-8 ####[facility] HOSPITALNCLIA [id number] [place] [address] [place] Platelet mean volume (Bld) [Entitic vol] 9.1 fL Normal 9.0-12.7 [facility] Comment on above: Order Comment: Speci men Type: BLOOD SPECIMENOrdering Facility: [facility] Address: [address] [place] [address] Performed By: #### 5 7021-8 ####[facility] HOSPITALNCLIA [id number] [place] [address] [place] Platelets (Bld) [#/Vol] 282 10*3/uL Normal 150-400 [facility] Comment on above: Order Comment: Speci men Type: BLOOD SPECIMENOrdering Facility: [facility] Address: [address] [place] [address] Performed By: #### 5 7021-8 ####[facility] HOSPITALNCLIA [id number] [place] [address] [place] RBC (Bld) [#/Vol] 4.28 10*6/uL Normal 3.90-5.20 [facility] Comment on above: Order Comment: Speci men Type: BLOOD SPECIMENOrdering Facility: [facility] Address: [address] [place] [address] Performed By: #### 5 7021-8 ####[facility] HOSPITALNCLIA [id number] [place] [address] [place] WBC (Bld) [#/Vol] 14.14 10*3/uL High 3.70-11.00 [facility] Comment on above: Order Comment: Speci men Type: BLOOD SPECIMENOrdering Facility: [facility] Address: [address] [place] [address] Performed By: #### 5 7021-8 ####[facility] HOSPITALNCLIA [id number] [place] [address] [place] Comprehensive metabolic 2000 panelOrdered By: Jazmyn Joshua on 08-01-2024 Albumin [Mass/Vol] 3.4 g/dL Low 3.9 - 4.9 g/dL [facility] ALP [Catalytic activity/Vol] 110 U/L 34 - 123 U/L [facility] ALT [Catalytic activity/Vol] 12 U/L 7 - 38 U/L [facility] Anion gap [Moles/Vol] 12 mmol/L 8 - 15 mmol/L [facility] AST [Catalytic activity/Vol] 12 U/L Low 13 - 35 U/L [facility] Bilirubin [Mass/Vol] 0.3 mg/dL 0.2 - 1.3 mg/dL [facility] Calcium [Mass/Vol] 9 mg/dL 8.5 - 10. 2 mg/dL [facility] Chloride [Moles/Vol] 105 mmol/L 98 - 107 mmol/L [facility] CO2 [Moles/Vol] 19 mmol/L Low 22 - 30 mmol/L [facility] Creatinine [Mass/Vol] 0.53 mg/dL Low 0.58 - 0.96 mg/dL [facility] GFR/1.73 sq M.predicted among non-blacks MDRD (S/P/Bld) [Vol rate/Area] 137 mL/min/{1.73_m2} - PINF [facility] Comment on above: Estimated Glomerular Filtration [...] [Mass/Vol] 91 mg/dL 74 - 99 mg/dL [facility] Comment on above: The [place] Diab[employer] s Association (ADA) provides guidance for [...] Standards of Medical Care in Diabetes 2016, [place] [employer]. Diabetes Care. 2016.39(Suppl 1). Interpretation and review of laboratory results Abnormal [facility] Potassium [Moles/Vol] 3.9 mmol/L 3.7 - 5.1 mmol/L [facility] Protein [Mass/Vol] 6.3 g/dL 6.3 - 8.0 g/dL [facility] Sodium [Moles/Vol] 136 mmol/L 136 - 144 mmol/L [facility] Urea nitrogen [Mass/Vol] 9 mg/dL 7 - 21 mg/dL [facility] Comprehensive metabolic 2000 panelon 08-01-2024 Albumin [Mass/Vol] 3.4 g/dL Low 3.9-4.9 [facility] Comment on above: Order Comment: Speci men Type: SWAB [facility] Address: [address] [place] [address] Performed By: #### C VTV, BVAMP #### [facility] CLIA [id number] [address] [place] [address] [place] ALP [Catalytic activity/Vol] 110 U/L Normal 34-123 [facility] Comment on above: Order Comment: Speci men Type: SWAB [facility] Address: [address] [place] [address] Performed By: #### C VTV, BVAMP #### [facility] CLIA [id number] [address] [place] [address] [place] ALT [Catalytic activity/Vol] 12 U/L Normal 7-38 [facility] Comment on above: Order Comment: Speci men Type: SWAB [facility] Address: [address] [place] [address] Performed By: #### C VTV, BVAMP #### [facility] CLIA [id number] [address] [place] [address] [place] Anion gap [Moles/Vol] 12 mmol/L Normal 8-15 [facility] Comment on above: Order Comment: Speci men Type: SWAB [facility] Address: [address] [place] [address] Performed By: #### C VTV, BVAMP #### [facility] CLIA [id number] [address] [place] [address] [place] AST [Catalytic activity/Vol] 12 U/L Low 13-35 [facility] Comment on above: Order Comment: Speci men Type: SWAB [facility] Address: [address] [place] [address] Performed By: #### C VTV, BVAMP #### [facility] CLIA [id number] [address] [place] [address] [place] Bilirubin [Mass/Vol] 0.3 mg/dL Normal 0.2-1.3 [facility] Comment on above: Order Comment: Speci men Type: SWAB [facility] Address: [address] [place] [address] Performed By: #### C VTV, BVAMP #### [facility] CLIA [id number] [address] [place] [address] [place] Calcium [Mass/Vol] 9.0 mg/dL Normal 8.5-10.2 [facility] Comment on above: Order Comment: Speci men Type: SWAB [facility] Address: [address] [place] [address] Performed By: #### C VTV, BVAMP #### [facility] CLIA [id number] [address] [place] [address] [place] Chloride [Moles/Vol] 105 mmol/L Normal 98-107 [facility] Comment on above: Order Comment: Speci men Type: SWAB [facility] Address: [address] [place] [address] Performed By: #### C VTV, BVAMP #### [facility] CLIA [id number] [address] [place] [address] [place] CO2 [Moles/Vol] 19 mmol/L Low 22-30 [facility] Comment on above: Order Comment: Speci men Type: SWAB [facility] Address: [address] [place] [address] Performed By: #### C VTV, BVAMP #### [facility] CLIA [id number] [address] [place] [address] [place] Creatinine [Mass/Vol] 0.53 mg/dL Low 0.58-0.96 [facility] Comment on above: Order Comment: Speci men Type: SWAB [facility] Address: [address] [place] [address] Performed By: #### C VTV, BVAMP #### [facility] CLIA [id number] [address] [place] [address] [place] Creatinine and Glomerular filtration rate.predicted panel (S/P/Bld) 137 mL/min/1.73m??? Normal >=60 [facility] Comment on above: Order Comment: Violeta alvarez Type: SWAB [facility] Address: [address] [place] [address] Result Comment: Ketty mated Glomerular Filtration Rate [...] Performed By: #### C VTV, BVAMP #### [facility] CLIA [id number] [address] [place] [address] [place] Glucose [Mass/Vol] 91 mg/dL Normal 74-99 [facility] Comment on above: Order Comment: Violeta alvarez Type: SWAB [facility] Address: [address] [place] [address] Result Comment: The [place] Diabetes Association (ADA) provides guidance for cutoff [...] Standards of Medical Care in Diabetes 2016, [place] [employer]. Diabetes Care. 2016.39(Suppl 1). Performed By: #### C VTV, BVAMP #### [facility] CLIA [id number] [address] [place] [address] [place] Potassium [Moles/Vol] 3.9 mmol/L Normal 3.7-5.1 [facility] Comment on above: Order Comment: Speci men Type: SWAB [facility] Address: [address] [place] [address] Performed By: #### C VTV, BVAMP #### [facility] CLIA [id number] [address] [place] [address] [place] Protein [Mass/Vol] 6.3 g/dL Normal 6.3-8.0 [facility] Comment on above: Order Comment: Speci men Type: SWAB [facility] Address: [address] [place] [address] Performed By: #### C VTV, BVAMP #### [facility] CLIA [id number] [address] [place] [address] [place] Sodium [Moles/Vol] 136 mmol/L Normal 136-144 [facility] Comment on above: Order Comment: Speci men Type: SWAB [facility] Address: [address] [place] [address] Performed By: #### C VTV, BVAMP #### [facility] CLIA [id number] [address] [place] [address] [place] Urea nitrogen [Mass/Vol] 9 mg/dL Normal 7-21 [facility] Comment on above: Order Comment: Speci men Type: SWAB [facility] Address: [address] [place] [address] Performed By: #### C VTV, BVAMP #### [facility] CLIA [id number] [address] [place] [address] [place] BACTERIAL VAGINOSIS NAATon 0 5- Lactobacillus crispatus+gasseri+imelda enii + Gardnerella vaginalis + Atopobium vaginae rRNA MEG+probe Ql (Vag fld) Not detected Normal Not detected [facility] Comment on above: Order Comment: Speci men Type: SWABOrdering Facility: [facility] Address: [address] [place] [address] Performed By: #### C VTV, BVAMP ####[facility] LABCLIA [id number] [place] [address] [place] FRANCO/TRICHOMONAS NAATon 0 07-20-2024 C. glabrata RNA MEG+probe Ql (Vag fld) Not detected Normal Not detected [facility] Comment on above: Order Comment: Speci men Type: SWABOrdering Facility: [facility] Address: [address] [place] [address] Performed By: #### C VTV, BVAMP ####[facility] LABCLIA [id number] [address] [place] [facility] Franco sp DNA MEG+probe Ql (Vag fld) Not detected Normal Not detected [facility] Comment on above: Order Comment: Speci men Type: SWABOrdering Facility: [facility] Address: [address] [place] [address] Result Comment: The Franco species group target includes C. albicans, C. tropicalis, C. parapsilosis, and C. dubliniensis. Performed By: #### C VTV, BVAMP ####[facility] LABCLIA [id number] [address] [place] T. vaginalis DNA MEG+probe Ql (Unsp spec) Not detected Normal Not detected [facility] Comment on above: Order Comment: Speci men Type: SWABOrdering Facility: [facility] Address: [address] [place] [address] Performed By: #### C VTV, BVAMP ####[facility] LABCLIA [id number] [place] [address] [place] CBC W Auto Differential pane l (Bld)on 07-20-2024 Basophils (Bld) [#/Vol] 0.07 10*3/uL Normal <0.11 [facility] Comment on above: Order Comment: Speci men Type: BLOOD SPECIMEN [facility] Address: [address] [place] [address] Performed By: #### 5 7021-8 #### [facility] CLIA [id number] [address] [place] [address] [place] Basophils/100 WBC (Bld) 0.5 % Normal [facility] Comment on above: Order Comment: Speci men Type: BLOOD SPECIMEN [facility] Address: [address] [place] [address] Performed By: #### 5 7021-8 #### [facility] CLIA [id number] [address] [place] [address] [place] Differential cell count method Nom (Bld) Auto Normal [facility] Comment on above: Order Comment: Speci men Type: BLOOD SPECIMEN [facility] Address: [address] [place] [address] Performed By: #### 5 7021-8 #### [facility] CLIA [id number] [address] [place] [address] [place] Eosinophils (Bld) [#/Vol] 0.58 10*3/uL High <0.46 [facility] Comment on above: Order Comment: Speci men Type: BLOOD SPECIMEN [facility] Address: [address] [place] [address] Performed By: #### 5 7021-8 #### [facility] CLIA [id number] [address] [place] [address] [place] Eosinophils/100 WBC (Bld) 4.3 % Normal [facility] Comment on above: Order Comment: Speci men Type: BLOOD SPECIMEN [facility] Address: [address] [place] [address] Performed By: #### 5 7021-8 #### [facility] CLIA [id number] [address] [place] [address] [place] Erythrocyte distribution width (RBC) [Ratio] 12.7 % Normal 11.5-15.0 [facility] Comment on above: Order Comment: Speci men Type: BLOOD SPECIMEN [facility] Address: [address] [place] [address] Performed By: #### 5 7021-8 #### [facility] CLIA [id number] [address] [place] [address] [place] Hematocrit (Bld) [Volume fraction] 35.8 % Low 36.0-46.0 [facility] Comment on above: Order Comment: Speci men Type: BLOOD SPECIMEN [facility] Address: [address] [place] [address] Performed By: #### 5 7021-8 #### [facility] DORALIA [id number] [address] [place] [address] [place] Hemoglobin (Bld) [Mass/Vol] 11.8 g/dL Normal 11.5-15.5 [facility] Comment on above: Order Comment: Speci men Type: BLOOD SPECIMEN [facility] Address: [address] [place] [address] Performed By: #### 5 7021-8 #### [facility] DORALIA [id number] [address] [place] [address] [place] Immature granulocytes (Bld) [#/Vol] 0.15 10*3/uL High <0.10 [facility] Comment on above: Order Comment: Speci men Type: BLOOD SPECIMEN [facility] Address: [address] [place] [address] Performed By: #### 5 7021-8 #### [facility] DORALIA [id number] [address] [place] [address] [place] Immature granulocytes/100 WBC (Bld) 1.1 % Normal [facility] Comment on above: Order Comment: Speci men Type: BLOOD SPECIMEN [facility] Address: [address] [place] [address] Performed By: #### 5 7021-8 #### [facility] CLIA [id number] [address] [place] [address] [place] Lymphocytes (Bld) [#/Vol] 2.19 10*3/uL Normal 1.00-4.00 [facility] Comment on above: Order Comment: Speci men Type: BLOOD SPECIMEN [facility] Address: [address] [place] [address] Performed By: #### 5 7021-8 #### [facility] CLIA [id number] [address] [place] [address] [place] Lymphocytes/100 WBC (Bld) 16.1 % Normal [facility] Comment on above: Order Comment: Speci men Type: BLOOD SPECIMEN [facility] Address: [address] [place] [address] Performed By: #### 5 7021-8 #### [facility] CLIA [id number] [address] [place] [address] [place] MCH (RBC) [Entitic mass] 28.7 pg Normal 26.0-34.0 [facility] Comment on above: Order Comment: Speci men Type: BLOOD SPECIMEN Ordering Facility: [facility] Address: [address] [place] [address] Performed By: #### 5 7021-8 #### [facility] CLIA [id number] [address] [place] [address] [place] MCHC (RBC) [Mass/Vol] 33.0 g/dL Normal 30.5-36.0 [facility] Comment on above: Order Comment: Speci men Type: BLOOD SPECIMEN Ordering Facility: [facility] Address: [address] [place] [address] Performed By: #### 5 7021-8 #### [facility] CLIA [id number] [address] [place] [address] [place] MCV (RBC) [Entitic vol] 87.1 fL Normal 80.0-100.0 [facility] Comment on above: Order Comment: Speci men Type: BLOOD SPECIMEN Ordering Facility: [facility] Address: [address] [place] [address] Performed By: #### 5 7021-8 #### [facility] CLIA [id number] [address] [place] [address] [place] Monocytes (Bld) [#/Vol] 0.86 10*3/uL Normal <0.87 [facility] Comment on above: Order Comment: Speci men Type: BLOOD SPECIMEN Ordering Facility: [facility] Address: [address] [place] [address] Performed By: #### 5 7021-8 #### [facility] CLIA [id number] [address] [place] [address] [place] Monocytes/100 WBC (Bld) 6.3 % Normal [facility] Comment on above: Order Comment: Speci men Type: BLOOD SPECIMEN Ordering Facility: [facility] Address: [address] [place] [address] Performed By: #### 5 7021-8 #### [facility] CLIA [id number] [address] [place] [address] [place] Neutrophils (Bld) [#/Vol] 9.79 10*3/uL High 1.45-7.50 [facility] Comment on above: Order Comment: Speci men Type: BLOOD SPECIMEN Ordering Facility: [facility] Address: [address] [place] [address] Performed By: #### 5 7021-8 #### [facility] CLIA [id number] [address] [place] [address] [place] Neutrophils/100 WBC (Bld) 71.7 % Normal [facility] Comment on above: Order Comment: Speci men Type: BLOOD SPECIMEN Ordering Facility: [facility] Address: [address] [place] [address] Performed By: #### 5 7021-8 #### [facility] CLIA [id number] [address] [place] [address] [place] Nucleated RBC (Bld) [#/Vol] 10*3/uL Normal <0.01 [facility] Comment on above: Order Comment: Speci men Type: BLOOD SPECIMEN Ordering Facility: [facility] Address: [address] [place] [address] Performed By: #### 5 7021-8 #### [facility] CLIA [id number] [address] [place] [address] [place] Nucleated RBC/100 WBC (Bld) [Ratio] 0.0 /100 WBC Normal [facility] Comment on above: Order Comment: Speci men Type: BLOOD SPECIMEN Ordering Facility: [facility] Address: [address] [place] [address] Performed By: #### 5 7021-8 #### [facility] CLIA [id number] [address] [place] [address] [place] Platelet mean volume (Bld) [Entitic vol] 9.0 fL Normal 9.0-12.7 [facility] Comment on above: Order Comment: Speci men Type: BLOOD SPECIMEN Ordering Facility: [facility] Address: [address] [place] [address] Performed By: #### 5 7021-8 #### [facility] CLIA [id number] [address] [place] [address] [place] Platelets (Bld) [#/Vol] 269 10*3/uL Normal 150-400 [facility] Comment on above: Order Comment: Speci men Type: BLOOD SPECIMEN Ordering Facility: [facility] Address: [address] [place] [address] Performed By: #### 5 7021-8 #### [facility] CLIA [id number] [address] [place] [address] [place] RBC (Bld) [#/Vol] 4.11 10*6/uL Normal 3.90-5.20 [facility] Comment on above: Order Comment: Speci men Type: BLOOD SPECIMEN Ordering Facility: [facility] Address: [address] [place] [address] Performed By: #### 5 7021-8 #### [facility] CLIA [id number] [address] [place] [address] [place] WBC (Bld) [#/Vol] 13.64 10*3/uL High 3.70-11.00 [facility] Comment on above: Order Comment: Speci men Type: BLOOD SPECIMEN Ordering Facility: [facility] Address: [address] [place] [address] Performed By: #### 5 7021-8 #### [facility] CLIA [id number] [address] [place] [address] [place] GESTATIONAL GLUCOSE SCREEN, 1-HOUR, 50 GRAM, NON-FASTINGon 07-20-2024 Glucose [Mass/Vol] 116 mg/dL Normal 74-134 [facility] Comment on above: Order Comment: Speci men Type: BLOOD SPECIMENOrdering Facility: [facility] Address: [address] [place] [address] Result Comment: [facility] Congress of Obstetricians and Gynecologists (Emir/Shon) guidelines state a gestational diabetes mellitus positive screen is made, in women not previously diagnosed with overt diabetes, when the 1 hr plasma glucose level is equal to or above 140 mg/dL. The [facility] Senior Wind Energy Consultant and [facility] [place] recommends a 135 mg/dL cutoff. Performed By: #### G LTGST ####[facility] [id number] [place] [address] [place] Reagin and Treponema pallidu m IgG and IgM [Interp]on 07-20-2024 T. pallidum IgG+IgM IA Ql (S) Non-Reactive Normal Nonreactive [facility] Comment on above: Order Comment: Speci antonio Type: BLOOD SPECIMENOrdering Facility: [facility] Address: [address] [place] [address] Performed By: #### 7 3752-8 ####[facility] LABIA [id number] [place] [address] [place] Reagin+T pallidum IgG+IgM Se rPl-Impon 07-20-2024 Reagin and Treponema pallidum IgG and IgM [Interp] Cannot exclude recent Treponemal infection if specimen collected within 7-10 days after appearance of suspect lesions or 2-3 weeks after an exposure. Clinical correlation is required. Normal [facility] Comment on above: Order Comment: Violeta alvarez Type: BLOOD SPECIMENOrdering Facility: [facility] Address: [address] [place] [address] Performed By: #### 7 3752-8 ####[facility] LABIA [id number] [place] [address] [place] CNPSherine 07-19-2024 CNPN Telephone (OBGYWM) AMIRAH WOODARD ([id number]) 3 F Date Time Provider Department 07/19/24 CASTILLO MCKEON During your visit today, we recorded the following information about you: Kia Sheldon RN 07/19/2024 4:23 PM Signed 28w2d Patient called to report that she has not felt the baby move since this morning. Inquired if she did kick counts today. Patient has not. Advised that she would need to go to [facility] for evaluation given the office hours. Instructed patient how to do kick counts if she wanted to see how many movements she has in an hour first. Updated HANDP faxed to [facility]. JIA Bundy Rebecca L, MD 07/19/2024 4:27 PM Signed noted. thanks. Castillo Mckeon MD Allergies As of Date: 07/19/2024 Noted Allergy Reaction SEASONAL ALLERGIES 12/29/2017 14 - Other: See Comments Comments: Puffy itchy eyes and scratchy throat. Date Reviewed: 06/21/2024 Reviewed by: Shree Santos MA - Fully Assessed Reason for Visit: Decreased FM [Other] Prescriptions as of 07/19/2024 - Bfdlhbed-Hx-Fpp-Fe-FA tab Take 1 tablet by mouth once [...] Status:Closed by VIVIAN ADAMS on 07/19/24 Normal [facility] UA DIP, URINE (POC)on 2024 BILIRUBIN UA (POCT) Negative Negative [facility] CLARITY UA (POCT) Clear [facility] COLOR UA (POCT) Yellow [facility] GLUCOSE UA (POCT) Negative Negative mg/dL [facility] Hemoglobin Ql (U) Negative Negative [facility] Interpretation and review of laboratory results Abnormal [facility] KETONE UA (POCT) Negative Negative mg/dL [facility] LEUKOCYTES UA (POCT) Trace Abnormal Negative [facility] NITRITE UA (POCT) Negative Negative [facility] PH UA (POCT) 7 4.5 - 8.0 [facility] Protein Ql (U) Negative Negative mg/dL [facility] SPECIFIC GRAVITY UA (POCT) 1.025 1.005 - 1.030 [facility] UROBILINOGEN UA (POCT) 0.2 Normal E.U./d L [facility] Location:[facility], [address] , [place], [place], [id number] [place] [address] POINT OF CARE [facility] Examination level ultrasound on 05-29-2024 Indication [...] 14 oz EFW by: Hadlock (HC-AC-FL) Extended Video Camera Operator 5.0 mm CM 4.4 mm 28% Nicolaides [...] normal LVOT view: normal 3-vessel view: normal 3-kqrics-sbnliuz view: normal Heart / Thorax Situs: situs [...] Read By: Kermit Carmen M.D. 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 During your visit today, we recorded the [...] PRAF [4193] Prescriptions as of 05/28/2024 - Zuljfvwn-Qm-Wjn-Fe-FA tab Take 1 tablet by mouth once [...] Status:Closed by TIO HUTCHISON on 05/28/24 Normal [facility] Examination level ultrasound on 05-25-2024 Radiology Study observation (narrative) [facility] CNPN Telephone (OBGYWM) AMIRAH WOODARD ([id number]) 3 F Date Time Provider Department 05/01/24 [...] increased LOF tonight I recommend going to [facility]. MD Monalisa Oleary Jennifer, JIA 05/01/2024 3:44 PM Signed Left message for patient to call office. Kia Sheldon RN Allergies As of Date: 05/01/2024 Noted Allergy Reaction SEASONAL ALLERGIES 12/29/2017 14 - Other: See Comments Comments: Puffy itchy eyes and scratchy throat. Date Reviewed: 04/27/2024 Reviewed by: Shree Santos MA - Fully Assessed Reason for Visit: Question (OB Question) [9532] Prescriptions as of 05/01/2024 - Znejqfqq-Cg-Ywd-Fe-FA tab Take 1 tablet by mouth once [...] Status:Closed by KIA SHELDON on 05/01/24 Normal [facility] Emergency Department Summary on 04-28-2024 Emergency Department Summary [facility] Medical Records Department [address] [place] [address] Emergency Department Summary 04/28/24 MR#: [id number] Acct: [id number] Name: AMIRAH WOODARD Rep #: [id number] : 2005 18 From: Shraddha HAYDEN PCP: Dr. Que Chavez MD Status:DEP ER Location: ED HPI History of Present Illness Chief Complaint: General Illness Narrative Narrative: 18-year-old female is 16 weeks and developed congestion yesterday and this morning the fatigue, chills, body aches, headache and cough. She works in the [employer] and has been around patients with different respiratory viruses. She called her OTOLARYNGOLOGY PHYSICIAN who recommended she come in and be screened for the flu. She also has urinary frequency today but no burning or hematuria. She has no abdominal pain or vaginal bleeding or discharge. PFSH PFS Medical History Left ankle pain Home Medications ???Medication ???Instructions ???Recorded ???Last Taken ???Type Lactobacillus 25 billion cap PO 10/04/23 Unknown History cell-Bifido 25 billion wjsx-DFM-vdell capsule albuterol sulfate 90 mcg/actuation inhalation 10/04/23 [...] Ox 100 Oxygen Delivery Method Room Air [facility] [place]arr[place] Medical decision making narrative: Differential: Viral [...] and recommended Tylenol and follow-up with her OTOLARYNGOLOGY PHYSICIAN. She was discharged in stable condition. Lab Data Attestation: I reviewed the patient's lab results. Labs: Laboratory Results - last 24 hr 04/28/24 20:42 Urine Color Yellow Urine Clarity Clear Urine pH 6.0 Ur Specific Bessie 1.015 Urine Protein 15 H Urine Glucose (UA) Normal Urine Ketones Negative Urine Occult Blood Negative Urine Nitrite Negative Urine Bilirubin Negative Urine Urobilinogen Normal Ur Leukocyte Esterase Negative Urine RBC 0 SEEN Urine WBC 0 SEEN Ur Squamous Epith Cells 0 SEEN Urine Bacteria 0 SEEN Urine Mucus 0 SEEN [facility] Lab Data Labs: Laborator (more content not included)... Normal [facility] M100.678on 04-28-2024 M100.678 SARS-CoV-2 (COVID 19 ) Negative INFLUENZA A Negative INFLUENZA B Negative RSV PCR Negative Normal [facility] Comment on above: Performed By: #### M 100.678 #### [facility] [address] [place], [address] Urinalysis, Completeon 04-28 RBC 0 SEEN Normal 0-5 [facility] Comment on above: Order Comment: CLEAN CATCH Performed By: #### L 400.0001 #### [facility] [address] [place], [address] BACTERIA 0 SEEN Normal None Seen [facility] Comment on above: Order Comment: CLEAN CATCH Performed By: #### L 400.0001 #### [facility] [address] [place], [address] EPI,SQUAMOUS 0 SEEN Normal 5-10 [facility] Comment on above: Order Comment: CLEAN CATCH Performed By: #### L 400.0001 #### [facility] [address] [place], [address] Mucus Ql (Urine sed) 0 SEEN Normal [facility] Comment on above: Order Comment: CLEAN CATCH Performed By: #### L 400.0001 #### [facility] [address] [place], [address] WBC 0 SEEN Normal 0-5 [facility] Comment on above: Order Comment: CLEAN CATCH Performed By: #### L 400.0001 #### [facility] [address] [place], [address] CNPNon 04-13-2024 JOSELYNN Telephone (OBJERRODWM) AMIRAH WOODARD ([id number]) 3 F Date Time Provider Department 04/13/24 [...] by LA DEL CASTILLO on 04/13/24 Normal [facility] nuchal translucency me asured by Quentin 04-03-2024 Indication First trimester anatomic survey Maternal obesity, BMI >30 Impression REMOTE READ The patient is referred for a first trimester anatomy scan including nuchal translucency measurement as clinically indicated. - Single, live, intrauterine . - [place] rump length measurement is consistent with the [...] view: normal 4-chamber view with color: normal 4-arciqa-rmobzfl view: normal Abdominal cord insertion: normal Stomach: [...] By: Caroline Vides RDMS, RVT Read By: Mairetta Burr M.D. MATERNAL MEDICINE [facility] Radiology Study observation (narrative) [facility] BACTERIAL VAGINOSIS NAATon 0 03-28-2024 Lactobacillus crispatus+gasseri+imelda enii + Gardnerella vaginalis + Atopobium vaginae rRNA MEG+probe Ql (Vag fld) Not detected Normal Not detected [facility] Comment on above: Order Comment: Speci men Type: SWABOrdering Facility: [facility] Address: [address] [place] [address] Performed By: #### C VTV, BVAMP ####[facility] LABCLIA [id number] [place] [address] [place] FRANCO/TRICHOMONAS NAATon 0 03-28-2024 C. glabrata RNA MEG+probe Ql (Vag fld) Not detected Normal Not detected [facility] Comment on above: Order Comment: Speci men Type: SWABOrdering Facility: [facility] Address: [address] [place] [address] Performed By: #### C VTV, BVAMP ####[facility] LABCLIA [id number] [address] [place] Franco sp DNA MEG+probe Ql (Vag fld) Detected Abnormal Not detected [facility] Comment on above: Order Comment: Speci men Type: SWABOrdering Facility: [facility] Address: [address] [place] [address] Result Comment: The Franco species group target includes C. albicans, C. tropicalis, C. parapsilosis, and C. dubliniensis. Performed By: #### C VTV, BVAMP ####[facility] LABCLIA [id number] [address] [place] T. vaginalis DNA MEG+probe Ql (Unsp spec) Not detected Normal Not detected [facility] Comment on above: Order Comment: Speci men Type: SWABOrdering Facility: [facility] Address: [address] [place] [address] Performed By: #### C VTV, BVAMP ####[facility] LABCLIA [id number] [address] [place] CNPSherine 03-22-2024 JOSELYNN Telephone (OBGYWM) AMIRAH WOODARD ([id number]) 3 F Date Time Provider Department 03/22/24 [...] Date Reviewed: 03/19/2024 Reviewed by: Josiane Goodwin APRN.WATERMASTER - Fully Assessed Reason for Visit: Medication Question [8768] Prescriptions as of 03/22/2024 - amoxicillin (AMOXIL) [...] by LA DEL CASTILLO on 03/22/24 Normal [facility] CNOVon 03-19-2024 CNOV Office Visit (PEDSWS ) AMIRAH WOODARD ([id number]) 3 F Date Time Provider Department 03/19/24 1:45 PM JOSIANE GOODWIN PEDSWS During your visit today, we recorded the following information about you: Temperature Pulse Respiration Weight 98.2 degrees 84/minute 16/minute 87.6 kg Josiane Goodwin, BRAKE SHOE REBUILDER.WATERMASTER 03/20/2024 9:03 PM Signed PEDIATRIC SICK VISIT [...] Date Reviewed: 03/19/2024 Reviewed by: Josiane Goodwin APRN.WATERMASTER - Fully Assessed Reason for Visit: Cough [...] 03/19/2024 Rou (more content not included)... Normal [facility] CNOVon 03-13-2024 CN Office Visit (WSTR ) VANCEAMIRAH Darrin ([id number]) 3 F Date Time Provider Department 03/13/24 1:00 PM ROBERTO POWERS [facility] During your visit today, we recorded the following information about you: Temperature Pulse Respiration Blood pressure 97.6 degrees 87/minute 18/minute 110/72 Weight 87.1 kg Roberto Powers PA-C 03/13/2024 12:33 PM Signed This note was created using DNART LIMITADAriter. Subjective Amirah Clifford Vance is a 18 [...] the patient was advised to see her OTOLARYNGOLOGY PHYSICIAN for further evaluation and management. CLINICAL IMPRESSION: [...] Diagnosis:Sore throat [J02.9] Order(s):STREP A MOLECULAR (POC) [8541241] Order #: [id number] #:[id number] Prescriptions as of 03/13/2024 - aspirin, enteric [...] teen in f*02/21/2024 Level of Service: OFFICE/OUTPATIENT [facility] 30 MINUTES [40581] Encounter Status:Closed by PRIYA, ROBERTO on 03/13/24 Normal [facility] [id number] PLUSon 03-13-2024 Cell-free DNA./Cell-free DNA.total Dosage of chromosome-specific cfDNA (cfDNA) [Molar fraction] 18% Normal [facility] Comment on above: Order Comment: Speci men Type: BLOOD SPECIMENOrdering Facility: [facility] Address: [facility] [place] [address] Performed By: #### M AT21 ####[facility] LABCLIA [id number] [place] [address] Chr 13+18+21+X+Y aneuploidy Dosage of chromosome-specific cfDNA Ql (cfDNA) Negative Normal [facility] Comment on above: Order Comment: Speci men Type: BLOOD SPECIMENOrdering Facility: [facility] Address: [address] [place] [address] Performed By: #### M AT21 ####[facility]People[facility] [employer] [facility] LABCLIA [id number] [place] [address] Chr 21 trisomy Dosage of chromosome-specific cfDNA Ql (cfDNA) Negative Normal [facility] Comment on above: Order Comment: Speci men Type: BLOOD SPECIMENOrdering Facility: [facility] Address: [address] [place] [address] Performed By: #### M AT21 ####[facility] LABCLIA [id number] [place] [address] Chr X and Y aneuploidy risk Sequencing Ql (cfDNA) [Interp] Not detected Normal [facility] Comment on above: Order Comment: Speci men Type: BLOOD SPECIMENOrdering Facility: [facility] Address: [address] [place] [address] Result Comment: Not Detected Not Detected Performed By: #### M AT21 ####[facility]People[facility] [employer] [facility] LABCLIA [id number] [place] [address] Citation Jn (Reference lab test) Comment Normal [facility] Comment on above: Order Comment: Speci men Type: BLOOD SPECIMENOrdering Facility: [facility] Address: [address] [place] [address] Result Comment: 1. P иван DILL, et al. Audra Med. 2012;14(3):296-305. 2. Jamel HARRELL et al. Prenat Diag. 2013;33(6):591-597. 3. Edvin C, et al. Clin Chem. 2015 Jun;61(4):608-616. 4. Jacey DILL, et al. Audra Med. 2011;13(11):913-920. 5. ACOG/SMFM Practice Bulletin No. 226, Dec 2019. Performed By: #### M AT21 ####[facility] LABCLIA [id number] [place] [address] Gestational age Estimated from conception date Spencer Normal [facility] Comment on above: Order Comment: Speci men Type: BLOOD SPECIMENOrdering Facility: [facility] Address: [address] [place] [address] Performed By: #### M AT21 ####[facility] LABCLIA [id number] [place] [address] GESTATIONALAGE AGE > OR = 9W Yes Normal [facility] Comment on above: Order Comment: Speci men Type: BLOOD SPECIMENOrdering Facility: [facility] Address: [address] [place] [address] Performed By: #### M AT21 ####[facility] LABCLIA [id number] [place] [address] Laboratory comment Jn (Report) Comment Normal [facility] Comment on above: Order Comment: Speci men Type: BLOOD SPECIMENOrdering Facility: [facility] Address: [address] [place] [address] Result Comment: The MaterniT(R) 21 PLUS laboratory-developed test (LDT) analyzes circulating cell-free DNA from a maternal blood sample. This test is used for screening purposes and not diagnostic. Clinical correlation is recommended. Validation data on twin pregnancies is limited and the ability of this test to detect aneuploidy in higher multiple gestations has not yet been validated. Performed By: #### M AT21 ####[facility] LABCLIA [id number] [place] [address] director center name Nom (Provider) Comment Normal [facility] Comment on above: Order Comment: Speci men Type: BLOOD SPECIMENOrdering Facility: [facility] Address: [address] [place] [address] Result Comment: This specimen showed an expected representation of chromosome 21, 18 and 13 material. Clinical correlation is suggested. Comment Jean Claude Guzmán MD, PhD, Director, [employer] Performed By: #### M AT21 ####[facility] LABCLIA [id number] [place] [address] LIMITATIONS OF THE TEST Comment Normal [facility] Comment on above: Order Comment: Speci men Type: BLOOD SPECIMENOrdering Facility: [facility] Address: [address], [place] [address] Result Comment: Steve shin the results of [...] Performed By: #### M AT21 ####[facility] LABCLIA [id number] [place] [id number] Monosomy X risk Dosage of chromosome-specific cfDNA Ql (Plasma cell-free+WBC DNA) [Interp] Not detected Normal [facility] Comment on above: Order Comment: Speci men Type: BLOOD SPECIMENOrdering Facility: [facility] Address: [address] [place] [address] Performed By: #### M AT21 ####[facility] LABCLIA [id number] [place] [id number] NEGATIVE PREDICTIVE VALUE Note Normal [facility] Comment on above: Order Comment: Speci men Type: BLOOD SPECIMENOrdering Facility: [facility] Address: [address] [place] [address] Result Comment: The Negative Predictive Value (NPV) for trisomy 21, 18, and 13 is greater than 99%. The NPV for SCA and ESS cannot be calculated as SCA and ESS are only reported when an abnormality is detected. Performed By: #### M AT21 ####[facility] LABCLIA [id number] [place] [address] NOTE Comment Normal [facility] Comment on above: Order Comment: Speci men Type: BLOOD SPECIMENOrdering Facility: [facility] Address: [address] [place] [address] Result Comment: See Notes [employer] is a subsidiary of [employer], using the brand [employer]. This test was developed and its performance characteristics determined by [employer]. It has not been cleared or approved by the Food and Drug Administration. This laboratory is certified under the Clinical Laboratory Improvement Amendments (CLIA) as qualified to perform high complexity clinical laboratory testing and accredited by the [employer] (CAP). If there is future clinical need for adding MaterniT GENOME testing, this specimen will be available until term. [facility] samples will not be retained beyond 60 days. [facility] patients will have to send a new sample for re-sequencing ([facility] Test Code: 620834). Performed By: #### M AT21 ####[facility] LABCLIA [id number] [facility] [place] [address] PERFORMANCE CHARACTERISTICS Note Normal [facility] Comment on above: Order Comment: Violeta alvarez Type: BLOOD SPECIMENOrdering Facility: [facility] Address: [address], [place] [address] Result Comment: ! Sex ! Accuracy: 99.4% [...] gestation only. Performed By: #### M AT21 ####[facility] LABVigilentIA [id number] [place] [address] POSITIVE PREDICTIVE VALUE N/A Normal [facility] Comment on above: Order Comment: Speci antonio Type: BLOOD SPECIMENOrdering Facility: [facility] Address: [address] [place] [address] Performed By: #### M AT21 ####[facility] LABCLIA [id number] [place] [address] Reference Lab Test Method Comment Normal [facility] Comment on above: Order Comment: Violeta alvarez Type: BLOOD SPECIMENOrdering Facility: [facility] Address: [address] [place] [address] Result Comment: See Notes Circulating cell-free DNA [...] and 22. Performed By: #### M AT21 ####[facility] [facility] LABCLIA [id number] [place] [address] Sex Dosage of chromosome-specific cfDNA Nom (cfDNA) Comment Normal [facility] Comment on above: Order Comment: Speci men Type: BLOOD SPECIMENOrdering Facility: [facility] Address: [address] [place] [address] Result Comment: Cons istent with Male Performed By: #### M AT21 ####[employer] [facility] LABCLIA [id number] [place] [address] Test performance information Jn (Unsp spec) Comment Normal [facility] Comment on above: Order Comment: Speci men Type: BLOOD SPECIMENOrdering Facility: [facility] Address: [address] [place] [address] Result Comment: The performance characteristics of the MaterniT(R) 21 PLUS laboratory-developed test (LDT) have been determined in a clinical validation study with women at increased risk for chromosomal aneuploidy.[1-4] Performed By: #### M AT21 ####[facility] LABCLIA [id number] [place] [address] Trisomy 13 risk Dosage of chromosome-specific cfDNA Ql (cfDNA) [Interp] Negative Normal [facility] Comment on above: Order Comment: Speci men Type: BLOOD SPECIMENOrdering Facility: [facility] Address: [address] [place] [address] Performed By: #### M AT21 ####[facility] LABCLIA [id number] [place] [address] Trisomy 18 risk Dosage of chromosome-specific cfDNA Ql (Plasma cell-free+WBC DNA) [Interp] Negative Normal [facility] Comment on above: Order Comment: Speci men Type: BLOOD SPECIMENOrdering Facility: [facility] Address: [address] [place] [address] Performed By: #### M AT21 ####[facility] LABCLIA [id number] [facility] [place] [address] STREP A MOLECULAR (POC)on Procedural Control Valid [facility] Strep A (POCT) Negative Negative [facility] CBC W Auto Differential pane l (Bld)on 02-24-2024 Basophils (Bld) [#/Vol] 0.07 10*3/uL Normal <0.11 [facility] Comment on above: Order Comment: Speci men Type: BLOOD SPECIMENOrdering Facility: [facility] Address: [address] [place] [address] Performed By: #### 5 7021-8 ####[facility] CENTERLIA [id number] [place] [address] [place] Basophils/100 WBC (Bld) 0.7 % Normal [facility] Comment on above: Order Comment: Speci men Type: BLOOD SPECIMENOrdering Facility: [facility] Address: [address] [place] [address] Performed By: #### 5 7021-8 ####[facility] CENTERLIA [id number] [place] [address] [place] Differential cell count method Nom (Bld) Auto Normal [facility] Comment on above: Order Comment: Speci men Type: BLOOD SPECIMENOrdering Facility: [facility] Address: [address] [place] [address] Performed By: #### 5 7021-8 ####[facility] MILLWNCLIA [id number] [place] [address] [place] Eosinophils (Bld) [#/Vol] 0.24 10*3/uL Normal <0.46 [facility] Comment on above: Order Comment: Speci men Type: BLOOD SPECIMENOrdering Facility: [facility] Address: [address] [place] [address] Performed By: #### 5 7021-8 ####[facility] MILLWNCLIA [id number] [place] [address] [place] Eosinophils/100 WBC (Bld) 2.4 % Normal [facility] Comment on above: Order Comment: Speci men Type: BLOOD SPECIMENOrdering Facility: [facility] Address: [address] [place] [address] Performed By: #### 5 7021-8 ####[facility] HOSPITALSONIA [id number] [place] [address] [place] Erythrocyte distribution width (RBC) [Ratio] 14.0 % Normal 11.5-15.0 [facility] Comment on above: Order Comment: Speci men Type: BLOOD SPECIMENOrdering Facility: [facility] Address: [address] [place] [address] Performed By: #### 5 7021-8 ####[facility] HOSPITALSONIA [id number] [place] [address] [place] Hematocrit (Bld) [Volume fraction] 41.8 % Normal 36.0-46.0 [facility] Comment on above: Order Comment: Speci men Type: BLOOD SPECIMENOrdering Facility: [facility] Address: [address] [place] [address] Performed By: #### 5 7021-8 ####[facility] HOSPITALNCALMITA [id number] [place] [address] [place] Hemoglobin (Bld) [Mass/Vol] 13.9 g/dL Normal 11.5-15.5 [facility] Comment on above: Order Comment: Speci men Type: BLOOD SPECIMENOrdering Facility: [facility] Address: [address] [place] [address] Performed By: #### 5 7021-8 ####[facility] H[facility]ITALNCLIA [id number] [place] [address] [place] Immature granulocytes (Bld) [#/Vol] 0.03 10*3/uL Normal <0.10 [facility] Comment on above: Order Comment: Speci men Type: BLOOD SPECIMENOrdering Facility: [facility] Address: [address] [place] [address] Performed By: #### 5 7021-8 ####[facility] MICAHBrunaNCMILVIA [id number] [place] [address] [place] Immature granulocytes/100 WBC (Bld) 0.3 % Normal [facility] Comment on above: Order Comment: Speci men Type: BLOOD SPECIMENOrdering Facility: [facility] Address: [address] [place] [address] Performed By: #### 5 7021-8 ####[facility] HOSPITALANNASHRINERS HOSPITALS FOR CHILDREN [id number] [place] [address] [place] Lymphocytes (Bld) [#/Vol] 2.44 10*3/uL Normal 1.00-4.00 [facility] Comment on above: Order Comment: Speci men Type: BLOOD SPECIMENOrdering Facility: [facility] Address: [address] [place] [address] Performed By: #### 5 7021-8 ####[facility] [id number] [place] [address] [place] Lymphocytes/100 WBC (Bld) 24.0 % Normal [facility] Comment on above: Order Comment: Speci men Type: BLOOD SPECIMENOrdering Facility: [facility] Address: [address] [place] [address] Performed By: #### 5 7021-8 ####[facility]ENTERA [id number] [place] [address] [place] MCH (RBC) [Entitic mass] 28.2 pg Normal 26.0-34.0 [facility] Comment on above: Order Comment: Speci men Type: BLOOD SPECIMENOrdering Facility: [facility] Address: [address] [place] [address] Performed By: #### 5 7021-8 ####[facility] FLORIDABrunaNCLIA [id number] [place] [address] [place] MCHC (RBC) [Mass/Vol] 33.3 g/dL Normal 30.5-36.0 [facility] Comment on above: Order Comment: Speci men Type: BLOOD SPECIMENOrdering Facility: [facility] Address: [address] [place] [address] Performed By: #### 5 7021-8 ####[facility] HOSPITALNCA [id number] [place] [address] [place] MCV (RBC) [Entitic vol] 84.8 fL Normal 80.0-100.0 [facility] Comment on above: Order Comment: Speci men Type: BLOOD SPECIMENOrdering Facility: [facility] Address: [address] [place] [address] Performed By: #### 5 7021-8 ####[facility] [id number] [place] [address] [place] Monocytes (Bld) [#/Vol] 0.59 10*3/uL Normal <0.87 [facility] Comment on above: Order Comment: Speci men Type: BLOOD SPECIMENOrdering Facility: [facility] Address: [address] [place] [address] Performed By: #### 5 7021-8 ####[facility] CENTERLIA [id number] [address] [place] Monocytes/100 WBC (Bld) 5.8 % Normal [facility] Comment on above: Order Comment: Speci men Type: BLOOD SPECIMENOrdering Facility: [facility] Address: [address] [place] [address] Performed By: #### 5 7021-8 ####[facility] HOSPITALNCSHRINERS HOSPITALS FOR CHILDREN [id number] [place] [address] [place] Neutrophils (Bld) [#/Vol] 6.81 10*3/uL Normal 1.45-7.50 [facility] Comment on above: Order Comment: Speci men Type: BLOOD SPECIMENOrdering Facility: [facility] Address: [address] [place] [address] Performed By: #### 5 7021-8 ####[facility] CENTERLIA [id number] [place] [address] [place] Neutrophils/100 WBC (Bld) 66.8 % Normal [facility] Comment on above: Order Comment: Speci men Type: BLOOD SPECIMENOrdering Facility: [facility] Address: [address] [place] [address] Performed By: #### 5 7021-8 ####[facility] HOSPITALNCSHRINERS HOSPITALS FOR CHILDREN [id number] [place] [address] [place] Nucleated RBC (Bld) [#/Vol] 10*3/uL Normal <0.01 [facility] Comment on above: Order Comment: Speci men Type: BLOOD SPECIMENOrdering Facility: [facility] Address: [address] [place] [address] Performed By: #### 5 7021-8 ####[facility] HOSPITALNCLIA [id number] [place] [address] [place] Nucleated RBC/100 WBC (Bld) [Ratio] 0.0 /100 WBC Normal [facility] Comment on above: Order Comment: Speci men Type: BLOOD SPECIMENOrdering Facility: [facility] Address: [address] [place] [address] Performed By: #### 5 7021-8 ####[facility] HOSPITALNCLI [id number] [place] [address] [place] Platelet mean volume (Bld) [Entitic vol] 8.5 fL Low 9.0-12.7 [facility] Comment on above: Order Comment: Speci men Type: BLOOD SPECIMENOrdering Facility: [facility] Address: [address] [place] [address] Performed By: #### 5 7021-8 ####[facility] LEAHWNCLIA [id number] [place] [address] [place] Platelets (Bld) [#/Vol] 304 10*3/uL Normal 150-400 [facility] Comment on above: Order Comment: Speci men Type: BLOOD SPECIMENOrdering Facility: [facility] Address: [address] [place] [address] Performed By: #### 5 7021-8 ####[facility] HOSPITALNCLIA [id number] [place] [address] [place] RBC (Bld) [#/Vol] 4.93 10*6/uL Normal 3.90-5.20 [facility] Comment on above: Order Comment: Speci men Type: BLOOD SPECIMENOrdering Facility: [facility] Address: [address] [place] [address] Performed By: #### 5 7021-8 ####[facility] HOSPITALNCLIA [id number] [place] [address] [place] WBC (Bld) [#/Vol] 10.18 10*3/uL Normal 3.70-11.00 [facility] Comment on above: Order Comment: Speci men Type: BLOOD SPECIMENOrdering Facility: [facility] Address: [address] [place] [address] Performed By: #### 5 7021-8 ####[facility] HOSPITALNCLIA [id number] [place] [address] [place] HBV surface Ag Ser Qlon 12-2 HBV surface Ag Ql (S) Negative Normal Negative [facility] Comment on above: Order Comment: Speci men Type: BLOOD SPECIMENOrdering Facility: [facility] Address: [address] [place] [address] Performed By: #### 5 195-3, 30143-1, 10463-3 ####[facility] LABCLIA [id number] [place] [address] [place] HCV Ab Ser Qlon 02-24-2024 HCV Ab Ql (S) Negative Normal Negative [facility] Comment on above: Order Comment: Speci men Type: BLOOD SPECIMENOrdering Facility: [facility] Address: [address] [place] [address] Result Comment: The result suggests no evidence of active infection with Hepatitis C virus. Should recent infection be suspected, repeat testing may be considered 4-6 weeks after this draw. Performed By: #### 1 6128-1 ####[facility] LABCLIA [id number] [place] [address] [place] HIV 1+2 Ab IA Qlon HIV 1 and 2 Ab IA.rapid Nom (S/P/Bld) Normal [facility] Comment on above: Order Comment: Speci men Type: BLOOD SPECIMENOrdering Facility: [facility] Address: [address] [place] [address] Result Comment: Test not indicated. Performed By: #### 5 195-3, 08987-7, 06384-0 ####[facility] LABCLIA [id number] [place] [address] [place] HIV 1+2 Ab+HIV1 p24 Ag IA Ql Non-Reactive Normal Nonreactive [facility] Comment on above: Order Comment: Speci men Type: BLOOD SPECIMENOrdering Facility: [facility] Address: [address] [place] [address] Performed By: #### 5 195-3, 73534-0, 82434-4 ####[facility] LABCLIA [id number] [place] [address] [place] HIV immunoassay testing algorithm interpretation (S/P/Bld) [Interp] Normal [facility] Comment on above: Order Comment: Speci men Type: BLOOD SPECIMENOrdering Facility: [facility] Address: [address] [place] [address] Result Comment: No e vidence of HIV-1 or HIV-2 infection. Should recent infection be suspected, repeat testing may be considered 2-3 weeks after this draw. [place] Rev. Code 3701.243(E): This information has been [...] or diagnoses. Performed By: #### 5 195-3, 04077-5, 26292-6 ####[facility] LABCLIA [id number] [place] [address] [place] HbA1c (Bld)on 02-24-2024 Average glucose Estimated from glycated hemoglobin (Bld) [Mass/Vol] 94 mg/dL Normal [facility] Comment on above: Order Comment: Speci men Type: SWAB [facility] Address: [address] [place] [address] Result Comment: eAG: (Estimated average glucose) is a calculated value from HgbA1c and is loan servicing representative of the average blood glucose level in the last 2-3 month period. Performed By: #### C VTV, BVAMP #### [facility] LAB CLIA [id number] [address] [place] [address] [place] HbA1c (Bld) [Mass fraction] 4.9 % Normal 4.3-5.6 [facility] Comment on above: Order Comment: Speci men Type: SWAB [facility] Address: [address] [place] [address] Result Comment: Amer [place] Diabetes Association guidelines indicate that patients with HgbA1c in the range 5.7-6.4% are at increased risk for development of diabetes, and intervention by lifestyle modification may be beneficial. HgbA1c greater or equal to 6.5% is considered diagnostic of diabetes. Performed By: #### C VTV, BVAMP #### [facility] CLIA [id number] [address] [place] [address] [place] RUBELLA IGG ANTIBODYon 02-23 RUBELLA IGG AB, QUAL Positive Normal Positive [facility] Comment on above: Order Comment: Speci men Type: BLOOD SPECIMENOrdering Facility: [facility] Address: [address] [place] [address] Result Comment: The result suggests recent or past exposure to Rubella virus or history of Rubella vaccination. Positive result may also be seen due to presence of passively-transferred antibodies. Please correlate with patient's history. Performed By: #### R UBIGG ####[facility] LABCLIA [id number] [place] [address] [place] Reagin and Treponema pallidu m IgG and IgM [Interp]on 02-24-2024 T. pallidum IgG+IgM IA Ql (S) Non-Reactive Normal Nonreactive [facility] Comment on above: Order Comment: Speci [facility] Type: BLOOD SPECIMENOrdering Facility: [facility] Address: [address] [place] [address] Performed By: #### 5 195-3, 75886-1, 00740-2 ####[facility] LABCLIA [id number] [place] [address] [place] Reagin+T pallidum IgG+IgM Se rPl-Impon 02-24-2024 Reagin and Treponema pallidum IgG and IgM [Interp] Cannot exclude recent Treponemal infection if specimen collected within 7-10 days after appearance of suspect lesions or 2-3 weeks after an exposure. Clinical correlation is required. Normal [facility] Comment on above: Order Comment: Speci men Type: BLOOD SPECIMENOrdering Facility: [facility] Address: [address] [place] [address] Performed By: #### 5 195-3, 39975-0, 85946-5 ####[facility] LABCLIA [id number] [place] [address] [place] TYPE + SCREEN PRENATALon ABO O Normal [facility] Comment on above: Order Comment: Speci men Type: SWAB [facility] Address: [address] [place] [address] Performed By: #### C VTV, BVAMP #### [facility] CLIA [id number] [address] [place] [address] [place] Rh Nom (Bld) Positive Normal [facility] Comment on above: Order Comment: Speci men Type: SWAB [facility] Address: [address] [place] [address] Performed By: #### C VTV, BVAMP #### [facility] CLIA [id number] [address] [place] [address] [place] TYPE AND SCREEN EXPIRATION 02/27/2024 23:59 Normal [facility] Comment on above: Order Comment: Speci men Type: SWAB [facility] Address: [address] [place] [address] Performed By: #### C VTV, BVAMP #### [facility] CLIA [id number] [address] [place] [address] [place] Urgent Care Visit Reporton 1 04-26-2023 Urgent Care Visit Report [facility] [address], [address] [place] [address] OFFICE VISIT Date of Service: 02/24/24 MR#: [id number] Acct: [id number] Name: AMIRAH WOODARD Rep #: [id number] 40 : 2005 Provider: CATRACHO Jacobo Age/Sex: 18/F Location: [facility] Status: Signed Intake Vital Signs 11/14/23 09:57 Height 5 ft 3 in Intake Visit Reasons: [facility]/ [facility] Chief Complaint: Preemployment physical Accompanied by: Self Allergies No Known Allergies Allergy (Verified 02/24/24 12:06) Medications ???Medication ???Instructions ???Recorded ???Confirmed ???Type Lactobacillus 25 billion cap PO 10/04/23 11/15/23 History cell-Bifido 25 billion wqtw-FGP-azrqt capsule albuterol sulfate 90 mcg/actuation inhalation 10/04/23 [...] Chico Gomez Signature: Date (if applicable) CC: [facility] Rodrick 02-23-2024 MATTI Telephone ([employer]) AMIRAH WOODARD ([id number]) 3 F Date Time Provider Department 02/23/24 [...] Date Reviewed: 02/21/2024 Reviewed by: Nilda Stiles APRN.[employer] - Fully Assessed Reason for Visit: PRAF [...] Status:Closed by PAULINE AU on 02/23/24 Normal [facility] BACTERIAL VAGINOSIS NAATon 1 2- Lactobacillus crispatus+gasseri+imelda enii + Gardnerella vaginalis + Atopobium vaginae rRNA MEG+probe Ql (Vag fld) Not detected Normal Not detected [facility] Comment on above: Order Comment: Speci men Type: SWABOrdering Facility: [facility] Address: [address] [place] [address] Performed By: #### Cherelle VAMP, 00322-6 ####[facility] LABCLIA [id number] [place] [address] [place] Bacteria Ur Culton [...] technique or straight catheterization for???urine???collecti on. Normal [facility] Comment on above: Performed By: #### 6 30-4 ####[facility] LABCLIA [id number] [place] [address] [place] C. trachomatis+N. gonorrhoea e DNA MEG+probe Ql (Unsp spec)on 02-21-2024 C. trachomatis rRNA MEG+probe Ql (Unsp spec) Not detected Normal Not detected [facility] Comment on above: Order Comment: Speci men Type: SWABOrdering Facility: [facility] Address: [address] [place] [address] Performed By: #### Cherelle VAMP, 50178-9 ####[facility] LABCLIA [id number] [place] [address] [place] N. gonorrhoeae rRNA MEG+probe Ql (Unsp spec) Not detected Normal Not detected [facility] Comment on above: Order Comment: Speci men Type: SWABOrdering Facility: [facility] Address: [address] [place] [address] Performed By: #### Cherelle VAMP, 37811-8 ####[facility] LABCLIA [id number] [place] [address] [place] FRANCO/TRICHOMONAS NAATon 1 2-17-2024 C. glabrata RNA MEG+probe Ql (Vag fld) Not detected Normal Not detected [facility] Comment on above: Order Comment: Speci men Type: SWAB [facility] Address: [address] [place] [address] Performed By: #### C VTV, BVAMP #### [facility] CLIA [id number] [address] [place] [address] [place] Franco sp DNA MEG+probe Ql (Vag fld) Not detected Normal Not detected [facility] Comment on above: Order Comment: Speci men Type: SWAB [facility] Address: [address] [place] [address] Result Comment: The Franco species group target includes C. albicans, C. tropicalis, C. parapsilosis, and C. dubliniensis. Performed By: #### C VTV, BVAMP #### [facility] CLIA [id number] [address] [place] [address] [place] T. vaginalis DNA MEG+probe Ql (Unsp spec) Not detected Normal Not detected [facility] Comment on above: Order Comment: Speci men Type: SWAB [facility] Address: [address] [place] [address] Performed By: #### C VTV, BVAMP #### [facility] CLIA [id number] [address] [place] [address] [place] CNCOon 02-21-2024 CNCO Letter Text Normal [facility] POC PHOTO GRAPHICS LIBRARIAN ULTRASOUNDon 02-21-20 24 Indication Confirmation of intrauterine [...] Read By: Nilda Stiles CNP MATERNAL MEDICINE [facility] Radiology Study observation (narrative) [facility] CNCOon 02-01-2024 CNCO Letter Text Normal [facility] CNOVon 01-30-2024 CNOV Office Visit (OBGYWM ) AMIRAH WOODARD ([id number]) 3 F Date Time Provider Department 01/30/24 [...] L0 SAB0 IAB0 Ectopic0 Multiple0 Live Births0 Loss Prevention Analyst History LMP: 12/09/2023 (Exact Date), Having periods Age at Menarche: Age at First : Age at Menopause: Loss Prevention Analyst History Comments: Sexual Activity: Yes; Male Contraception: [...] (FLONASE) 50 mcg/actuation nasal spray Use 1 [place] in each nostril once daily. loratadine (CLARITIN) [...] throat. Date Reviewed: 01/30/2024 Reviewed by: Kelly Fileds LPN - Fully Assessed Primary Visit Diagnosis:Encounter for test, result positive [Z32.01] Order(s):UA DIP,URINE HCG (POC) [3201010] Order #: [id number] #:[id number] Prescriptions as of 01/30/2024 - vit no.124/iron/folic [...] (FLONASE) 50 mcg/actuation nasal spray Use 1 [place] in each nostril once daily. - loratadine [...] NOB. Follow (more content not included)... Normal [facility] UA DIP,URINE HCG (POC)on Beta HCG ( test) Ql (U) Positive Abnormal Negative [facility] Comment on above: Location:[facility], [address], [place], [address] Interpretation and review of laboratory results Abnormal [facility] Army Manager (POCT) Internal QC OK [facility] Location:[facility], [address], [place], [address] [facility] POINT [facility] CARE [facility] CNPN Telephone (OBGYWM) AMIRAH WOODARD ([id number]) 3 F Date Time Provider Department 12/15/23 NILDA STILES OBFAIVO During your visit today, we recorded the [...] NILDA STILES Pharmacy Information Pharmacy Address Telephone [facility] [address] [place] [address] Allergies As of Date: 12/15/2023 [...] (FLONASE) 50 mcg/actuation nasal spray Use 1 [place] in each nostril once daily. - loratadine [...] Status:Closed by VIVIAN ADAMS on 12/15/23 Normal [facility] BACTERIAL VAGINOSIS NAATon 1 Lactobacillus crispatus+gasseri+imelda enii + Gardnerella vaginalis + Atopobium vaginae rRNA MEG+probe Ql (Vag fld) Negative Normal Negative for bacterial vaginosis [facility] Comment on above: Order Comment: Speci men Type: SWAB Ordering Facility: [facility] Address: [address] [place] [address] Performed By: #### C VTV, BVAMP #### [facility] CLIA [id number] [address] [place] [address] [place] FRANCO/TRICHOMONAS NAATon 1 C. glabrata RNA MEG+probe Ql (Vag fld) Negative Normal Negative for Franco glabrata [facility] Comment on above: Order Comment: Speci men Type: SWAB Ordering Facility: [facility] Address: [address] [place] [address] Performed By: #### C VTV, BVAMP #### [facility] CLIA [id number] [address] [place] [address] [place] Franco sp DNA MEG+probe Ql (Vag fld) Negative Normal Negative for Franco species [facility] Comment on above: Order Comment: Speci men Type: SWAB [facility]ing Facility: [facility] Address: [address] [place] [address] Performed By: #### C VTV, BVAMP #### [facility] CLIA [id number] [address] [place] [address] [place] T. vaginalis DNA MEG+probe Ql (Unsp spec) Negative Normal Negative for Trichomonas vaginalis by amplification [facility] Comment on above: Order Comment: Speci men Type: SWAB [facility]ing Facility[facility] Address: [address] [place] [address] Performed By: #### C VTV, BVAMP #### [facility] CLIA [id number] [address] [place] [address] [place] CNOVon 12-12-2023 CNOV Office Visit (OBGYWM ) AMIRAH WOODARD ([id number]) 3 F Date Time Provider Department 12/12/23 3:45 PM NILDA STILES OBGYWM During your visit today, we recorded the following information about you: Blood pressure Weight Last Period 122/66 84.8 kg 12/09/23 Nilda Stiles APRN.WATERMASTER 12/12/2023 4:43 PM Signed Patient declined verify rep. Amirah Woodard is a 18 year old [...] L0 SAB0 IAB0 Ectopic0 Multiple0 Live Births0 Loss Prevention Analyst History LMP: 10/08/2023 (Exact Date), Having periods Age at Menarche: Age at First : Age at Menopause: Loss Prevention Analyst History Comments: Sexual Activity: Yes; Male Contraception: [...] (FLONASE) 50 mcg/actuation nasal spray Use 1 [place] in each nostril once daily. loratadine (CLARITIN) [...] discussed with the Patient or Patient's Authorized Iron Plastic Bullet Maker. As applicable, any other physician, advance practice provider, medical student, or other health professional student that will be observing or involved in the sensitive examination for educational or training purposes was discussed with the Patient or Authorized Iron Plastic Bullet Maker. The Patient or Authorized Iron Plastic Bullet Maker has agreed to proceed with the sensitive examination. (Sensitive examination includes inspection and/or palpation of the breasts, pelvis, prostate and anorectal regions). EXAM: LMP 10/08/2023 GENERAL: pleasant, female in no apparent distress HEENT: Normocephalic, atraumatic, mucus membranes moist, and no lesions CHEST: Normal inspiratory effort PELVIC: external genitalia normal, normal Bartholin's glands, urethra, [place]'s glands, no vulvar lesions, no cervical lesions, [...] notify patient of test results. Nilda Stiles APRN.WATERMASTER Medical Decision Making: Problems: Moderate: New problem with uncertain prognosis Data: U (more content not included)... Normal [facility] T3Free SerPl-mCncon 12-12-19 24 Free T3 [Mass/Vol] 3.2 pg/mL Normal 2.3-4.1 [facility] Comment on above: Order Comment: Speci men Type: BLOOD SPECIMENOrdering Facility: [facility] Address: [address] [place] [address] Performed By: #### 3 051-0, 7, 3 ####[facility] [id number] [place] [address] [place] T4 Free SerPl-mCncon 024 Free T4 [Mass/Vol] 1.2 ng/dL Normal 0.9-1.7 [facility] Comment on above: Order Comment: Speci men Type: BLOOD SPECIMENOrdering Facility: [facility] Address: [address] [place] [address] Performed By: #### 3 051-0, 3023-7, 3 ####[facility] [id number] [place] [address] [place] THYROID PEROXIDASE ANTIBODYo n 12-12-2023 TPO Ab Qn [IU]/mL Normal <5.6 [facility] Comment on above: Order Comment: Speci men Type: BLOOD SPECIMENOrdering Facility: [facility] Address: [address] [place] [address] Result Comment: Thyr oid Peroxidase Antibody test is used as an aid in diagnosis of autoimmune thyroid disease. Clinical correlation is required. Performed By: #### M ICRO ####[facility] [id number] [place] [address] [place] TSH SerPl-aCncon 12-12-2023 TSH Qn 1.050 m[IU]/L Normal 0.510-4.300 [facility] Comment on above: Order Comment: Speci men Type: BLOOD SPECIMENOrdering Facility: [facility] Address: [address] [place] [address] Result Comment: If t he patient is , TSH reference range varies by gestational period: First Trimester (weeks 9-12): 0.180-2.990 mIU/L Second Trimester: 0.110-3.980 mIU/L Third Trimester: 0.480-4.710 mIU/L Dayo Wagner, et al. A Practical Approach for the Verifications and Determination of Site- and Trimester-Specific Reference Intervals for Thyroid Function tests in . Thyroid, 2019:29:3:412-420. Edmar E, et al. 2017 Guidelines of the [place] Thyroid Association for the Diagnosis and Management of Thyroid Disease during and the . Thyroid, 2017:27:3:315-389. Reference ranges were not locally established for this patient's age group. The normal values are based on the following source: Yarelis W, Chante V. Reference Ranges for Adults and Children: Pre-analytical Considerations. [facility] Performed By: #### 3 051-0, 3024-7, 3016-3 ####[facility]IA [id number] [place] [address] [place] UROGENITAL UREAPLASMA AND MY COPLASMA SPECIES BY PCR, FOR GENITAL, RECTAL, URINE SAMPLESon 12-12-2023 M GENITALIUM PCR Not detected Normal [facility] Comment on above: Order Comment: Speci men Type: SWABOrdering Facility: [facility] Address: [address] [place] [address] Result Comment: INTE RPRETIVE INFORMATION: Urogenital Ureaplasma and Mycoplasma Species by PCR A negative result does not rule out the presence of PCR inhibitors in the patient specimen or test-specific nucleic acid in concentrations below the level of detection by this test. This test was developed and its performance characteristics determined by [employer]. It has not been cleared or approved by the [place] Food and Drug Administration. This test was performed in a CLIA certified laboratory and is intended for clinical purposes. Performed By: [facility] [address] [place] [address] Other Spatial Scientist: Jonathan Guzman MD, PhD [facility] Number: [id number] Performed By: #### U RMPCR ####[facility] [id number] [place] [address] MYCOPLAS HOMINIS PCR Not detected Normal [facility] Comment on above: Order Comment: Speci men Type: SWABOrdering Facility: [facility] Address: [address] [place] [address] Performed By: #### U RMPCR ####[facility] [id number] [place] [address] UR PARVUM PCR Detected Abnormal [facility] Comment on above: Order Comment: Speci men Type: SWABOrdering Facility: [facility] Address: [address] [place] [address] Performed By: #### U RMPCR ####[facility] [id number] [place] [address] UR UREALYTICUM PCR Not detected Normal [facility] Comment on above: Order Comment: Speci men Type: SWABOrdering Facility: [facility] Address: [address] [place] [address] Performed By: #### U RMPCR ####[facility] [id number] [place] [address] UR/MYCO SOURCE Genital Normal [facility] Comment on above: Order Comment: Speci men Type: SWABOrdering Facility: [facility] Address: [address] [place] [address] Performed By: #### U RMPCR ####[facility] [id number] [place] [address] Ankle min 3 Viewson 11-15-19 Ankle min 3 Views [facility] [address] [place] [address] Ankle min 3 Views MR#: [id number] Acct: [id number] Name: AMIRAH WOODARD Rep #: [id number] : 2005 F 18 From: Bruno Méndez MD PCP: Dr. Que Chavez MD Status: DEP AMB Study: Ankle min 3 Views Date of Exam: 11/15/23 Exam# [id number] Ordering Dr: Antwon Miranda MD [id number] STUDY: X-RAY - LEFT ANKLE REASON FOR [...] 15:51 EDT Reading Location ID and State: [address] [place] [address] , Service support , CC: Dr. Que Chavez MD; Dr. Antwon Miranda MD Personal Banking Assistant: Signed Normal [facility] Orthopedic Visit Reporton Orthopedic Visit Report [facility] [address] [place] [address] OFFICE VISIT Date of Service: 11/15/23 MR#: [id number] Acct: [id number] Name: AMIRAH WOODARD Rep #: [id number] : 2005 Provider: Dr. Antwon sebastian MD Age/Sex: 18/F Location: [facility] Status: Signed Intake Vital Signs 11/14/23 09:57 Height 5 ft 3 in Intake Visit Reasons: LEFT LEG Chief Complaint: left ankle Accompanied by: Self Is patient in pain?: No Allergies No Known Allergies Allergy (Verified 11/15/23 15:06) Medications ???Medication ???Instructions ???Recorded ???Confirmed ???Type Lactobacillus 25 billion cap PO 10/04/23 11/15/23 History cell-Bifido 25 billion uqhw-OAZ-ycuzr capsule albuterol sulfate 90 mcg/actuation inhalation 10/04/23 [...] Cosigner Signature: Date (if applicable) CC: Normal [facility] CNOVon 10-31-2023 CNOV Office Visit (PEDSWS ) AMIRAH WOODARD ([id number]) 3 F Date Time Provider Department 10/31/23 [...] button - completed 7 day course [employer], RECOVERY COACH advised in office visit with them Allergy/Immunology [...] (FLONASE) 50 mcg/actuation nasal spray Use 1 [place] in each nostril once daily. loratadine (CLARITIN) [...] satisfactory Screening tools reviewed and discussed with patient/ysrbbk-LUQ-8 and Social Determinants of Health. Please see Patient Entered Data. SDOH: Food Insecurity: No F (more content not included)... Normal [facility] Ankle min 3 Viewson 10-18-19 Ankle min 3 Views [facility] [address] [place] [address] Ankle min 3 Views MR#: [id number] Acct: [id number] Name: AMIRAH WOODARD Rep #: [id number] : 2005 F 18 From: Feliciano narayan MD PCP: Dr. Que Chavez MD Status: DEP AMB Study: Ankle min 3 Views Date of Exam: 10/18/23 Exam# [id number] Ordering Dr: Antwon Miranda MD [id number] INDICATION: fu EXAMINATION/TECHNIQUE: X-RAY - LEFT XR [...] Que Chavez MD; Dr. Antwon Miranda MD Personal Banking Assistant: Signed Normal [facility] Orthopedic Visit Reporton Orthopedic Visit Report [facility] [address] [place] [address] [address] [place] [address] OFFICE VISIT Date of Service: 10/18/23 MR#: [id number] Acct: [id number] Name: AMIRAH WOODARD Rep #: [id number] : 2005 Provider: Dr. Antwon sebastian MD Age/Sex: 18/F Location: [facility] Status: Signed Intake Vital Signs 10/03/23 08:06 Height 5 ft 3 in Intake Visit Reasons: LEFT LEG Accompanied by: Mother Is patient in pain?: No Allergies No Known Allergies Allergy (Verified 10/18/23 10:05) Medications ???Medication ???Instructions ???Recorded ???Confirmed ???Type Lactobacillus 25 billion cap PO 10/04/23 10/18/23 History cell-Bifido 25 billion mdiw-HPQ-zrwmo capsule albuterol sulfate 90 mcg/actuation inhalation 10/04/23 [...] Cosigner Signature: Date (if applicable) CC: Normal [facility] STREP A MOLECULAR (POC)on Procedural Control Valid [facility] Strep A (POCT) Negative Negative [facility] BACTERIAL VAGINOSIS NAATon 0 07-12-2023 Interpretation and review of laboratory results Abnormal [facility] Lactobacillus crispatus+gasseri+imelda enii + Gardnerella vaginalis + Atopobium vaginae rRNA MEG+probe Ql (Vag fld) Positive Abnormal Negative for bacterial vaginosis [facility] FRANCO/TRICHOMONAS NAATon 0 07-12-2023 C. glabrata RNA MEG+probe Ql (Vag fld) Negative Negative for Franco glabrata [facility] Franco sp DNA MEG+probe Ql (Vag fld) Negative Negative for Franco species [facility] Interpretation and review of laboratory results Normal [facility] T. vaginalis DNA MEG+probe Ql (Unsp spec) Negative Negative for Trichomonas vaginalis by amplification [facility] US Pelvis transvaginalon [facility] BACTERIAL VAGINOSIS NAATon 0 05-04-2023 Lactobacillus crispatus+gasseri+imelda enii + Gardnerella vaginalis + Atopobium vaginae rRNA MEG+probe Ql (Vag fld) Negative Negative for bacterial vaginosis [facility] C. trachomatis+N. gonorrhoea e DNA MEG+probe Ql (Unsp spec)on 05-04-2023 C. trachomatis rRNA MEG+probe Ql (Unsp spec) Negative Negative for Chlamydia trachomatis by amplificaton [facility] N. gonorrhoeae rRNA MEG+probe Ql (Unsp spec) Negative Negative for Neisseria gonorrhoeae by amplification [facility] FRANCO/TRICHOMONAS NAATon 0 05-04-2023 C. glabrata RNA MEG+probe Ql (Vag fld) Negative Negative for Franco glabrata [facility] Franco sp DNA MEG+probe Ql (Vag fld) Negative Negative for Franco species [facility] T. vaginalis DNA MEG+probe Ql (Unsp spec) Negative Negative for Trichomonas vaginalis by amplification [facility] HCG QUAL UR B/Oon 07-15-2022 status Negative neg - pos [facility] Quality Check Yes [facility] Vital Signs Date Time Vital Sign Value Performing Clinician Facility 10-13-2024 01:46-0400 Heart rate 90 /min Dr. Ruiz Vega DO Work Phone: [facility] 10-13-2024 01:46-0400 SaO2% (BldA) [Mass fraction] 97 % Dr. Ruiz Vega DO Work Phone: [facility] 10-12-2024 23:44-0400 Diastolic blood pressure 82 mm[Hg] Dr. Ruiz Vega DO Work Phone: [facility] 10-12-2024 23:44-0400 Systolic blood pressure 122 mm[Hg] Dr. Ruiz Vega DO Work Phone: [facility] 10-12-2024 23:43-0400 Body temperature 97.7 [degF] Dr. Ruiz Vega DO Work Phone: [facility] 10-12-2024 23:43-0400 Respiratory rate 16 /min Dr. Ruiz Vega DO Work Phone: [facility] 10-12-2024 23:35-0400 Body height 162.[address] Ruiz Vega DO Work Phone: [facility] 10-12-2024 23:35-0400 Body mass index (BMI) [Ratio] 38.6 kg/m2 Dr. Ruiz Vega DO Work Phone: [facility] 10-12-2024 23:35-0400 Body weight [address] Ruiz Vega DO Work Phone: [facility] 10-05-2024 16:20-0400 Body mass index (BMI) [Ratio] 37.85 kg/m2 Delfina Watson APRN.CNM Work Phone: [facility] 10-05-2024 16:20-0400 Body weight 103.06 kg Delfina Watson APRN.CNM Work Phone: [facility] 10-05-2024 16:20-0400 Diastolic blood pressure 74 mm[Hg] Delfina Watson APRN.CNM Work Phone: [facility] 10-05-2024 16:20-0400 Systolic blood pressure 110 mm[Hg] Delfina Watson APRN.CNM Work Phone: [facility] 09-25-2024 14:06-0400 Body mass index (BMI) [Ratio] 36.99 kg/m2 Janelle Marin MD Work Phone: [facility] 09-25-2024 14:06-0400 Body weight 100.7 kg Janelle Marin MD Work Phone: [facility] 09-25-2024 14:06-0400 Diastolic blood pressure 70 mm[Hg] Janelle Marin MD Work Phone: [facility] 09-25-2024 14:06-0400 Systolic blood pressure 110 mm[Hg] Janelle Marin MD Work Phone: [facility] 09-18-2024 13:26-0400 Body mass index (BMI) [Ratio] 37.02 kg/m2 Alo Thompson MD Work Phone: [facility] 09-18-2024 13:26-0400 Body weight 100.79 kg Alo Thompson MD Work Phone: [facility] 09-18-2024 13:26-0400 Diastolic blood pressure 72 mm[Hg] Alo Thompson MD Work Phone: [facility] 09-18-2024 13:26-0400 Systolic blood pressure 110 mm[Hg] Alo Thompson MD Work Phone: [facility] 09-12-2024 10:33-0400 Body mass index (BMI) [Ratio] 35.99 kg/m2 Castillo Mckeon MD Work Phone: [facility] 09-12-2024 10:33-0400 Body weight 97.98 kg Castillo Mckeon MD Work Phone: [facility] 09-12-2024 10:33-0400 Diastolic blood pressure 82 mm[Hg] Castillo Mckeon MD Work Phone: [facility] 09-12-2024 10:33-0400 Systolic blood pressure 124 mm[Hg] Castillo Mckeon MD Work Phone: [facility] 09-04-2024 12:22-0400 Body temperature 98 [degF] Dr. Ruiz Vega DO Work Phone: 6(708)269-[address] [place] [address] 09-04-2024 12:22-0400 Diastolic blood pressure 75 mm[Hg] Dr. Ruiz Vega DO Work Phone: 1(554)030-395628 [place] [address] 09-04-2024 12:22-0400 Heart rate 99 /min Dr. Ruiz Vega DO Work Phone: 7(596)411-226149 [place] [address] 09-04-2024 12:22-0400 Respiratory rate 17 /min Dr. Ruiz Vega DO Work Phone: 2(394)125-534328 [place] [address] 09-04-2024 12:22-0400 SaO2% (BldA) [Mass fraction] 94 % Dr. Ruiz Vega DO Work Phone: 4(448)662-082328 [place] [address] 09-04-2024 12:22-0400 Systolic blood pressure 115 mm[Hg] Dr. Ruiz Vega DO Work Phone: 7(891)173-294228 [place] [address] 09-04-2024 10:11-0400 Body height 162.[address] Ruiz Vega DO Work Phone: 2(289)482-556928 [place] [address] 09-04-2024 10:11-0400 Body mass index (BMI) [Ratio] 37.1 kg/m2 Dr. Ruiz Vega DO Work Phone: 9(906)658-125849 [place] [address] 09-04-2024 10:11-0400 Body weight 98.[address] Ruiz Vega DO Work Phone: 6(870)933-000228 [place] [address] 09-04-2024 09:32-0400 Body mass index (BMI) [Ratio] 35.65 kg/m2 Janelle Marin MD Work Phone: [facility] 09-04-2024 09:32-0400 Body weight 97.07 kg Janelle Marin MD Work Phone: [facility] 09-04-2024 09:32-0400 Diastolic blood pressure 76 mm[Hg] Janelle Marin MD Work Phone: [facility] 09-04-2024 09:32-0400 Heart rate 126 /min Janelle Marin MD Work Phone: [facility] 09-04-2024 09:32-0400 SaO2% (BldA) [Mass fraction] 98 % Janelle Marin MD Work Phone: [facility] 09-04-2024 09:32-0400 Systolic blood pressure 128 mm[Hg] Janelle Marin MD Work Phone: [facility] 08-30-2024 14:52-0400 Body mass index (BMI) [Ratio] 36.15 kg/m2 La Plotts BRAKE SHOE REBUILDER.CNM Work Phone: [facility] 08-30-2024 14:52-0400 Body weight 98.43 kg La Plotts BRAKE SHOE REBUILDER.CNM Work Phone: [facility] 08-30-2024 14:52-0400 Diastolic blood pressure 68 mm[Hg] La Plotts BRAKE SHOE REBUILDER.CNM Work Phone: [facility] 08-30-2024 14:52-0400 Systolic blood pressure 120 mm[Hg] La Plotts BRAKE SHOE REBUILDER.CNM Work Phone: [facility] 08-16-2024 14:23-0400 Body mass index (BMI) [Ratio] 35.49 kg/m2 Lindsey Hawander BRAKE SHOE REBUILDER.WATERMASTER Work Phone: [facility] 08-16-2024 14:23-0400 Body weight 96.62 kg Lindsey Haury BRAKE SHOE REBUILDER.WATERMASTER Work Phone: [facility] 08-16-2024 14:23-0400 Diastolic blood pressure 62 mm[Hg] Lindsey Haury BRAKE SHOE REBUILDER.WATERMASTER Work Phone: [facility] 08-16-2024 14:23-0400 Systolic blood pressure 112 mm[Hg] Lindsey Haury BRAKE SHOE REBUILDER.WATERMASTER Work Phone: [facility] 08-13-2024 09:18-0400 Body height 165 cm Ruiz Vega DO Work Phone: [facility] 08-13-2024 09:18-0400 Body mass index (BMI) [Ratio] 35.15 kg/m2 Ruiz Vega DO Work Phone: [facility] 08-13-2024 09:18-0400 Body temperature 96.4 [degF] Ruiz Vega DO Work Phone: [facility] 08-13-2024 09:18-0400 Body weight 95.71 kg Ruiz Vega DO Work Phone: [facility] 08-13-2024 09:18-0400 Diastolic blood pressure 60 mm[Hg] Ruiz Vega DO Work Phone: [facility] [facility] 08-13-2024 09:18-0400 Heart rate 88 /min Ruiz Vega DO Work Phone: [facility] 08-13-2024 09:18-0400 Respiratory rate 16 /min Ruiz Vega DO Work Phone: [facility] 08-13-2024 09:18-0400 Systolic blood pressure 90 mm[Hg] Ruiz Vega DO Work Phone: [facility] 08-01-2024 09:33-0400 Body mass index (BMI) [Ratio] 36.39 kg/m2 Castillo Mckeon MD Work Phone: [facility] 08-01-2024 09:33-0400 Body weight 96.16 kg Castillo Mckeon MD Work Phone: [facility] 08-01-2024 09:33-0400 Diastolic blood pressure 78 mm[Hg] Castillo Mckeon MD Work Phone: [facility] 08-01-2024 09:33-0400 Systolic blood pressure 128 mm[Hg] Castillo Mckeon MD Work Phone: [facility] 07-20-2024 08:32-0400 Body mass index (BMI) [Ratio] 35.36 kg/m2 Lindsey Moreno APRN.WATERMASTER Work Phone: [facility] 07-20-2024 08:32-0400 Body weight 93.44 kg Lindsey Haury BRAKE SHOE REBUILDER.WATERMASTER Work Phone: [facility] 07-20-2024 08:32-0400 Diastolic blood pressure 64 mm[Hg] Lindsey Moreno BRAKE SHOE REBUILDER.WATERMASTER Work Phone: [facility] 07-20-2024 08:32-0400 Systolic blood pressure 118 mm[Hg] Lindsey Moreno BRAKE SHOE REBUILDER.WATERMASTER Work Phone: [facility] 06-21-2024 13:04-0400 Body mass index (BMI) [Ratio] 34.67 kg/m2 La Plotts BRAKE SHOE REBUILDER.CNM Work Phone: [facility] 06-21-2024 13:04-0400 Body weight 91.63 kg La Plotts BRAKE SHOE REBUILDER.CNM Work Phone: [facility] 06-21-2024 13:04-0400 Diastolic blood pressure 62 mm[Hg] La Plotts BRAKE SHOE REBUILDER.CNM Work Phone: [facility] 06-21-2024 13:04-0400 Systolic blood pressure 114 mm[Hg] La Plotts BRAKE SHOE REBUILDER.CNM Work Phone: [facility] 06-19-2024 14:38-0400 Body mass index (BMI) [Ratio] 35.02 kg/m2 Janelle Marin MD Work Phone: [facility] 06-19-2024 14:38-0400 Body weight 92.53 kg Janelle Marin MD Work Phone: [facility] 06-19-2024 14:38-0400 Diastolic blood pressure 60 mm[Hg] Janelle Marin MD Work Phone: [facility] 06-19-2024 14:38-0400 Systolic blood pressure 120 mm[Hg] Janelle Marin MD Work Phone: [facility] 06-06-2024 13:05-0400 Body mass index (BMI) [Ratio] 34.67 kg/m2 La Plotts BRAKE SHOE REBUILDER.CNM Work Phone: [facility] 06-06-2024 13:05-0400 Body weight 91.63 kg La Plotvida BRAKE SHOE REBUILDER.CNM Work Phone: [facility] 06-06-2024 13:05-0400 Diastolic blood pressure 66 mm[Hg] La Plotvida BRAKE SHOE REBUILDER.CNM Work Phone: [facility] 06-06-2024 13:05-0400 Systolic blood pressure 114 mm[Hg] La Del Castillo BRAKE SHOE REBUILDER.CNM Work Phone: [facility] 05-25-2024 15:18-0400 Body mass index (BMI) [Ratio] 34.16 kg/m2 Kia Lucero MD Work Phone: [facility] 05-25-2024 15:18-0400 Body weight 90.27 kg Kia Lucero MD Work Phone: [facility] 05-25-2024 15:18-0400 Diastolic blood pressure 70 mm[Hg] Kia Lucero MD Work Phone: [facility] 05-25-2024 15:18-0400 Systolic blood pressure 114 mm[Hg] Kia Lucero MD Work Phone: [facility] 04-27-2024 13:06-0500 Body mass index (BMI) [Ratio] 33.81 kg/m2 Delfina Watson BRAKE SHOE REBUILDER.CNM Work Phone: [facility] 04-27-2024 13:06-0500 Body weight 89.36 kg Delfina Watson BRAKE SHOE REBUILDER.CNM Work Phone: [facility] 04-27-2024 13:06-0500 Diastolic blood pressure 68 mm[Hg] Delfina Watson BRAKE SHOE REBUILDER.CNM Work Phone: [facility] 04-27-2024 13:06-0500 Systolic blood pressure 116 mm[Hg] Delfina Watson BRAKE SHOE REBUILDER.CNM Work Phone: [facility] 04-03-2024 16:15-0500 Body mass index (BMI) [Ratio] 33.3 kg/m2 Delfina Watson BRAKE SHOE REBUILDER.CNM Work Phone: [facility] 04-03-2024 16:15-0500 Body weight 88 kg Delfina Watson BRAKE SHOE REBUILDER.CNM Work Phone: [facility] 04-03-2024 16:15-0500 Diastolic blood pressure 60 mm[Hg] Delfina Watson BRAKE SHOE REBUILDER.CNM Work Phone: [facility] 04-03-2024 16:15-0500 Systolic blood pressure 104 mm[Hg] Delfina Watson BRAKE SHOE REBUILDER.CNM Work Phone: [facility] 03-28-2024 09:18-0500 Body mass index (BMI) [Ratio] 33.13 kg/m2 Duncan Munguia MD Work Phone: [facility] 03-28-2024 09:18-0500 Body weight 87.54 kg Duncan Munguia MD Work Phone: [facility] 03-28-2024 09:18-0500 Diastolic blood pressure 70 mm[Hg] Duncan Munguia MD Work Phone: [facility] 03-28-2024 09:18-0500 Systolic blood pressure 120 mm[Hg] Duncan Munguia MD Work Phone: [facility] 03-19-2024 13:50-0500 Body mass index (BMI) [Ratio] 33.15 kg/m2 Josiane Luzader BRAKE SHOE REBUILDER.WATERMASTER Work Phone: [facility] 03-19-2024 13:50-0500 Body temperature 98.2 [degF] Josiane Luzader BRAKE SHOE REBUILDER.WATERMASTER Work Phone: [facility] 03-19-2024 13:50-0500 Body weight 87.6 kg Josiane Luzader BRAKE SHOE REBUILDER.WATERMASTER Work Phone: [facility] 03-19-2024 13:50-0500 Heart rate 84 /min Josiane Luzader BRAKE SHOE REBUILDER.WATERMASTER Work Phone: [facility] 03-19-2024 13:50-0500 Respiratory rate 16 /min Josiane Luzader BRAKE SHOE REBUILDER.WATERMASTER Work Phone: [facility] 03-13-2024 11:57-0500 Body mass index (BMI) [Ratio] 32.96 kg/m2 Roberto Clutter PA-C Work Phone: [facility] 03-13-2024 11:57-0500 Body temperature 97.59 [degF] Roberto Clutter PA-C Work Phone: [facility] 03-13-2024 11:57-0500 Body weight 87.1 kg Roberto Clutter PA-C Work Phone: [facility] 03-13-2024 11:57-0500 Diastolic blood pressure 72 mm[Hg] Roberto Clutter PA-C Work Phone: [facility] 03-13-2024 11:57-0500 Heart rate 87 /min Roberto Clutter PA-C Work Phone: [facility] 03-13-2024 11:57-0500 Respiratory rate 18 /min Roberto Clutter PA-C Work Phone: [facility] 03-13-2024 11:57-0500 SaO2% (BldA) [Mass fraction] 98 % Roberto Clutter PA-C Work Phone: [facility] 03-13-2024 11:57-0500 Systolic blood pressure 110 mm[Hg] Roberto Clutter PA-C Work Phone: [facility] 02-21-2024 08:17-0500 Body height 162.6 cm Nilda Brownwood BRAKE SHOE REBUILDER.WATERMASTER Work Phone: [facility] 02-21-2024 08:17-0500 Body mass index (BMI) [Ratio] 32.41 kg/m2 Nilda Linsey BRAKE SHOE REBUILDER.WATERMASTER Work Phone: [facility] 02-21-2024 08:17-0500 Body weight 85.64 kg Nilda Linsey BRAKE SHOE REBUILDER.WATERMASTER Work Phone: [facility] 02-21-2024 08:17-0500 Diastolic blood pressure 78 mm[Hg] Nilda Brownwood BRAKE SHOE REBUILDER.WATERMASTER Work Phone: [facility] 02-21-2024 08:17-0500 Systolic blood pressure 124 mm[Hg] Nilda Linsey BRAKE SHOE REBUILDER.WATERMASTER Work Phone: [facility] 01-30-2024 14:05-0500 Body mass index (BMI) [Ratio] 30.55 kg/m2 Nilda Brownwood BRAKE SHOE REBUILDER.WATERMASTER Work Phone: [facility] 01-30-2024 14:05-0500 Body weight 85 kg Nilda Brownwood BRAKE SHOE REBUILDER.WATERMASTER Work Phone: [facility] 01-30-2024 14:05-0500 Diastolic blood pressure 72 mm[Hg] Nilda Brownwood BRAKE SHOE REBUILDER.WATERMASTER Work Phone: [facility] 01-30-2024 14:05-0500 Systolic blood pressure 116 mm[Hg] Nilda Linsey BRAKE SHOE REBUILDER.WATERMASTER Work Phone: [facility] 12-12-2023 15:32-0400 Body mass index (BMI) [Ratio] 30.49 kg/m2 Nilda Linsey BRAKE SHOE REBUILDER.WATERMASTER Work Phone: [facility] 12-12-2023 15:32-0400 Body weight 84.82 kg Nilda Linsey BRAKE SHOE REBUILDER.WATERMASTER Work Phone: [facility] 12-12-2023 15:32-0400 Diastolic blood pressure 66 mm[Hg] Nilda Linsey BRAKE SHOE REBUILDER.WATERMASTER Work Phone: [facility] 12-12-2023 15:32-0400 Systolic blood pressure 122 mm[Hg] Nilda Brownwood BRAKE SHOE REBUILDER.WATERMASTER Work Phone: [facility] 10-31-2023 10:56-0400 Body height 166.8 cm Sommer Hernandez PA-C Work Phone: [facility] 10-31-2023 10:56-0400 Body mass index (BMI) [Ratio] 30.8 kg/m2 Sommer Hernandez PA-C Work Phone: [facility] 10-31-2023 10:56-0400 Body temperature 98.2 [degF] Sommer Hernandez PA-C Work Phone: [facility] 10-31-2023 10:56-0400 Body weight 85.68 kg Sommer Hernandez PA-C Work Phone: [facility] Comment on above: in a boot at this time 10-31-2023 10:56-0400 Diastolic blood pressure 78 mm[Hg] Sommer Hernandez PA-C Work Phone: [facility] 10-31-2023 10:56-0400 Heart rate 102 /min Sommer Hernandez PA-C Work Phone: [facility] 10-31-2023 10:56-0400 Respiratory rate 18 /min Sommer Hernandez PA-C Work Phone: [facility] 10-31-2023 10:56-0400 Systolic blood pressure 116 mm[Hg] Sommer Hernandez PA-C Work Phone: [facility] 08-25-2023 13:59-0400 Body weight 86.91 kg Nilda Brownwood BRAKE SHOE REBUILDER.WATERMASTER Work Phone: [facility] 08-25-2023 13:59-0400 Diastolic blood pressure 60 mm[Hg] Nilda Brownwood BRAKE SHOE REBUILDER.WATERMASTER Work Phone: [facility] 08-25-2023 13:59-0400 Systolic blood pressure 110 mm[Hg] Nilda Linsey BRAKE SHOE REBUILDER.WATERMASTER Work Phone: [facility] 08-21-2023 10:35-0400 Body temperature 97.5 [degF] Alecia Vanessa BRAKE SHOE REBUILDER.WATERMASTER Work Phone: [facility] 08-21-2023 10:35-0400 Body weight 86.5 kg Alecia Vanessa BRAKE SHOE REBUILDER.WATERMASTER Work Phone: [facility] 08-21-2023 10:35-0400 Diastolic blood pressure 81 mm[Hg] Alecia Vanessa BRAKE SHOE REBUILDER.WATERMASTER Work Phone: [facility] 08-21-2023 10:35-0400 Heart rate 104 /min Alecia Vanessa BRAKE SHOE REBUILDER.WATERMASTER Work Phone: [facility] 08-21-2023 10:35-0400 Respiratory rate 18 /min Alecia Vanessa BRAKE SHOE REBUILDER.WATERMASTER Work Phone: [facility] 08-21-2023 10:35-0400 SaO2% (BldA) [Mass fraction] 98 % Alecia Vanessa BRAKE SHOE REBUILDER.WATERMASTER Work Phone: [facility] 08-21-2023 10:35-0400 Systolic blood pressure 112 mm[Hg] Alecia Vanessa BRAKE SHOE REBUILDER.WATERMASTER Work Phone: [facility] 07-29-2023 08:08-0400 Body weight 86.91 kg Nilda Linsey BRAKE SHOE REBUILDER.WATERMASTER Work Phone: [facility] 07-29-2023 08:08-0400 Diastolic blood pressure 66 mm[Hg] Nilda Linsey BRAKE SHOE REBUILDER.WATERMASTER Work Phone: [facility] 07-29-2023 08:08-0400 Systolic blood pressure 118 mm[Hg] Nilda Linsey BRAKE SHOE REBUILDER.WATERMASTER Work Phone: [facility] 07-11-2023 14:09-0400 Body weight 87.09 kg Nilda Linsey BRAKE SHOE REBUILDER.WATERMASTER Work Phone: [facility] 07-11-2023 14:09-0400 Diastolic blood pressure 74 mm[Hg] Nilda Linsey BRAKE SHOE REBUILDER.WATERMASTER Work Phone: [facility] 07-11-2023 14:09-0400 Systolic blood pressure 118 mm[Hg] Nilda Brownwood BRAKE SHOE REBUILDER.WATERMASTER Work Phone: [facility] 06-24-2023 14:28-0400 Body temperature 97.5 [degF] Que Chavez MD Work Phone: [facility] 06-24-2023 14:28-0400 Body weight 88.22 kg Que Chavez MD Work Phone: [facility] 06-24-2023 14:28-0400 Heart rate 80 /min Que Chavez MD Work Phone: [facility] 06-24-2023 14:28-0400 Respiratory rate 16 /min Que Chavez MD Work Phone: [facility] 05-16-2023 14:25-0400 Body weight 88.45 kg Kia Lucero MD Work Phone: [facility] 05-16-2023 14:25-0400 Diastolic blood pressure 70 mm[Hg] Kia Lucero MD Work Phone: [facility] 05-16-2023 14:25-0400 Systolic blood pressure 102 mm[Hg] Kia Lucero MD Work Phone: [facility] 05-03-2023 14:36-0500 Body weight 88.81 kg Delfina Watson BRAKE SHOE REBUILDER.CNM Work Phone: [facility] 05-03-2023 14:36-0500 Diastolic blood pressure 72 mm[Hg] Delfina Watson BRAKE SHOE REBUILDER.CNM Work Phone: [facility] 05-03-2023 14:36-0500 Systolic blood pressure 110 mm[Hg] Delfina Watson BRAKE SHOE REBUILDER.CNM Work Phone: [facility] 10-05-2022 11:36-0400 Body height 158.2 cm Sommer Hernandez PA-C Work Phone: [facility] 10-05-2022 11:36-0400 Body mass index (BMI) [Percentile] Per age and sex 98.12 % Sommer Hernandez PA-C Work Phone: [facility] 10-05-2022 11:36-0400 Body temperature 97.7 [degF] Sommer Hernandez PA-C Work Phone: [facility] 10-05-2022 11:36-0400 Body weight 92.08 kg Sommer Hernandez PA-C Work Phone: [facility] 10-05-2022 11:36-0400 Diastolic blood pressure 74 mm[Hg] Sommer Hernandez PA-C Work Phone: [facility] 10-05-2022 11:36-0400 Heart rate 98 /min Sommer Hernandez PA-C Work Phone: [facility] 10-05-2022 11:36-0400 Respiratory rate 18 /min Sommer Hernandez PA-C Work Phone: [facility] 10-05-2022 11:36-0400 Systolic blood pressure 124 mm[Hg] Sommer Hernandez PA-C Work Phone: [facility] 07-15-2022 15:03-0400 Body weight 88 kg Nilda Linsey BRAKE SHOE REBUILDER.WATERMASTER Work Phone: [facility] 07-15-2022 15:03-0400 Diastolic blood pressure 76 mm[Hg] Nilda Brownwood BRAKE SHOE REBUILDER.WATERMASTER Work Phone: [facility] 07-15-2022 15:03-0400 Systolic blood pressure 100 mm[Hg] Nilda Linsey BRAKE SHOE REBUILDER.WATERMASTER Work Phone: [facility] 05-27-2022 11:36-0400 Body temperature 97.3 [degF] Ramon Patrick MD Work Phone: [facility] 05-27-2022 11:36-0400 Body weight 86.55 kg Ramon Patrick MD Work Phone: [facility] 05-27-2022 11:36-0400 Diastolic blood pressure 86 mm[Hg] Ramon Patrick MD Work Phone: [facility] 05-27-2022 11:36-0400 Heart rate 19 /min Ramon Patrick MD Work Phone: [facility] 05-27-2022 11:36-0400 Respiratory rate 18 /min Ramon Patrick MD Work Phone: [facility] 05-27-2022 11:36-0400 SaO2% (BldA) [Mass fraction] 97 % Ramon Patrick MD Work Phone: [facility] 05-27-2022 11:36-0400 Systolic blood pressure 110 mm[Hg] Ramon Patrick MD Work Phone: [facility] 05-07-2022 08:58-0500 Body temperature 98.6 [degF] Sommer Hernandez PA-C Work Phone: [facility] 05-07-2022 08:58-0500 Body weight 87.32 kg Sommer Hernandez PA-C Work Phone: [facility] 05-07-2022 08:58-0500 Heart rate 100 /min Sommer Hernandez PA-C Work Phone: [facility] 05-07-2022 08:58-0500 Respiratory rate 16 /min Sommer Hernandez PA-C Work Phone: [facility] 04-12-2022 08:30-0500 Body weight 86.82 kg Nilda Brownwood BRAKE SHOE REBUILDER.WATERMASTER Work Phone: [facility] 04-12-2022 08:30-0500 Diastolic blood pressure 60 mm[Hg] Nilda Linsey BRAKE SHOE REBUILDER.WATERMASTER Work Phone: [facility] 04-12-2022 08:30-0500 Systolic blood pressure 100 mm[Hg] Nilda Brownwood BRAKE SHOE REBUILDER.WATERMASTER Work Phone: [facility] 03-16-2022 09:53-0500 Body weight 86.46 kg Nilda Linsey BRAKE SHOE REBUILDER.WATERMASTER Work Phone: [facility] 03-16-2022 09:53-0500 Diastolic blood pressure 68 mm[Hg] Nilda Brownwood BRAKE SHOE REBUILDER.WATERMASTER Work Phone: [facility] 03-16-2022 09:53-0500 Systolic blood pressure 100 mm[Hg] Nilda Brownwood BRAKE SHOE REBUILDER.WATERMASTER Work Phone: [facility] 01-18-2022 10:13-0500 Body temperature 97.7 [degF] Alecia Mendez BRAKE SHOE REBUILDER.WATERMASTER Work Phone: [facility] 01-18-2022 10:13-0500 Body weight 83.46 kg Alecia Vanessa BRAKE SHOE REBUILDER.WATERMASTER Work Phone: [facility] 01-18-2022 10:13-0500 Diastolic blood pressure 64 mm[Hg] Alecia Vanessa BRAKE SHOE REBUILDER.WATERMASTER Work Phone: [facility] 01-18-2022 10:13-0500 Heart rate 112 /min Alecia Vanessa BRAKE SHOE REBUILDER.WATERMASTER Work Phone: [facility] 01-18-2022 10:13-0500 Respiratory rate 16 /min Alecia Vanessa BRAKE SHOE REBUILDER.WATERMASTER Work Phone: [facility] 01-18-2022 10:13-0500 SaO2% (BldA) [Mass fraction] 96 % Alecia Vanessa BRAKE SHOE REBUILDER.WATERMASTER Work Phone: [facility] 01-18-2022 10:13-0500 Systolic blood pressure 118 mm[Hg] Alecia Vanessa BRAKE SHOE REBUILDER.WATERMASTER Work Phone: [facility] 10-28-2021 08:55-0400 Body height 163.8 cm Sommer Hernandez PA-C Work Phone: [facility] 10-28-2021 08:55-0400 Body mass index (BMI) [Percentile] Per age and sex 96.45 % Sommer Hernandez PA-C Work Phone: [facility] 10-28-2021 08:55-0400 Body temperature 97.9 [degF] Sommer Hernandez PA-C Work Phone: [facility] 10-28-2021 08:55-0400 Body weight 84.37 kg Sommer Hernandez PA-C Work Phone: [facility] 10-28-2021 08:55-0400 Heart rate 80 /min Sommer Hernandez PA-C Work Phone: [facility] 10-28-2021 08:55-0400 Respiratory rate 16 /min Sommer Hernandez PA-C Work Phone: [facility] 10-05-2021 12:50-0400 Body temperature 97.9 [degF] Alecia Vanessa BRAKE SHOE REBUILDER.WATERMASTER Work Phone: [facility] 10-05-2021 12:50-0400 Body weight 83.46 kg Alecia Vanessa BRAKE SHOE REBUILDER.WATERMASTER Work Phone: [facility] 10-05-2021 12:50-0400 Diastolic blood pressure 76 mm[Hg] Alecia Vanessa BRAKE SHOE REBUILDER.WATERMASTER Work Phone: [facility] 10-05-2021 12:50-0400 Heart rate 88 /min Alecia Vanessa BRAKE SHOE REBUILDER.WATERMASTER Work Phone: [facility] 10-05-2021 12:50-0400 Respiratory rate 16 /min Alecia Vanessa BRAKE SHOE REBUILDER.WATERMASTER Work Phone: [facility] 10-05-2021 12:50-0400 SaO2% (BldA) [Mass fraction] 98 % Alecia Vanessa BRAKE SHOE REBUILDER.WATERMASTER Work Phone: [facility] 10-05-2021 12:50-0400 Systolic blood pressure 124 mm[Hg] Alecia Vanessa BRAKE SHOE REBUILDER.WATERMASTER Work Phone: [facility] 07-13-2021 09:04-0400 Body height 163.4 cm Que Chavez MD Work Phone: [facility] 07-13-2021 09:04-0400 Body mass index (BMI) [Percentile] Per age and sex 96.38 % Que Chavez MD Work Phone: [facility] 07-13-2021 09:04-0400 Body temperature 97.7 [degF] Que Chavez MD Work Phone: [facility] 07-13-2021 09:04-0400 Body weight 83.01 kg Que Chavez MD Work Phone: [facility] 07-13-2021 09:04-0400 Heart rate 92 /min Que Chavez MD Work Phone: [facility] 07-13-2021 09:04-0400 Respiratory rate 20 /min Que Chavez MD Work Phone: [facility] 06-12-2021 09:04-0400 Body temperature 97.7 [degF] Que Chavez MD Work Phone: [facility] 06-12-2021 09:04-0400 Body weight 82.1 kg Que Chavez MD Work Phone: [facility] 06-12-2021 09:04-0400 Diastolic blood pressure 80 mm[Hg] Que Chavez MD Work Phone: [facility] 06-12-2021 09:04-0400 Heart rate 80 /min Que Chavez MD Work Phone: [facility] 06-12-2021 09:04-0400 Respiratory rate 18 /min Que Chavez MD Work Phone: [facility] 06-12-2021 09:04-0400 Systolic blood pressure 118 mm[Hg] Que Chavez MD Work Phone: [facility] Encounters Encounter Date Encounter Type Care Provider Facility Start: 10-12-2024 End: 10-13-[address] Ruiz Vega DO Work Phone: [facility] Start: 10-12-2024 End: 10-13-2024 Patient encounter procedure Delfina Watson CNM -[facility] Work Phone: Start: 10-09-2024 End: 10-09-2024 ambulatory RUIZ VEGA Facility:[facility] Start: 10-05-2024 End: 10-05-2024 Patient encounter procedure Delfina Watson APRN.CNM Work Phone: OB/Gynecology Comment on above: 39 weeks gestation o f (HCC) (Primary Dx); Supervision of high risk in third trimester (HCC); Obesity in (HCC); Positive GBS test Start: 10-05-2024 End: 10-05-2024 ambulatory RUIZ VEGA Facility:[facility] Start: 09-25-2024 End: 09-25-2024 Patient encounter procedure Janelle Marin MD Work Phone: OB/Gynecology Comment on above: Supervision of high risk in third trimester (HCC) (Primary Dx); 38 weeks gestation of (HCC) Start: 09-25-2024 End: 09-25-2024 ambulatory RUIZ VEGA Facility:[facility] Start: 09-18-2024 End: 09-18-2024 Patient encounter procedure Alo Thompson MD Work Phone: OB/Gynecology Comment on above: Supervision of high risk in third trimester (HCC) (Primary Dx); 37 weeks gestation of (HCC); Positive GBS test Start: 09-18-2024 End: 09-18-2024 ambulatory RUIZ VEGA Facility:[facility] Start: 09-12-2024 End: 09-12-2024 Patient encounter procedure Castillo Mckeon MD Work Phone: OB/Gynecology Comment on above: 36 weeks gestation o f (HCC) (Primary Dx); Supervision of high risk in third trimester (HCC); Obesity affecting in third trimester, unspecified obesity type (HCC); Heartburn during in third trimester (HCC) Start: 09-12-2024 End: 09-12-2024 ambulatory RUIZ VEGA Facility:[facility] Start: 09-04-2024 End: 09-04-2024 Follow-up encounter [...] of (HCC) Start: 09-04-2024 End: 09-04-2024 ambulatory RIUZ L VEGA Facility:[facility] Start: 08-30-2024 End: 08-30-2024 Patient encounter procedure La Del Castillo APRN.CNM Work Phone: OB/Gynecology Comment on above: Supervision of high risk in third trimester (HCC) (Primary Dx); Obesity affecting in third trimester, unspecified obesity type (HCC); 34 weeks gestation of (HCC) Start: 08-30-2024 End: 08-30-2024 ambulatory RUIZ L VEGA Facility:[facility] Start: 08-16-2024 End: 08-16-2024 Patient encounter procedure Lindsey Moreno APRN.WATERMASTER Work Phone: OB/Gynecology Comment on above: Supervision of high risk in third trimester (HCC) (Primary Dx); 32 weeks gestation of (HCC); Obesity affecting in third trimester, unspecified obesity type (HCC) Start: 08-16-2024 Encounter for genera l adult medical examination without abnormal findings RUIZ VEGA [facility] Start: 08-16-2024 End: 08-16-2024 ambulatory RUIZ L VEGA Facility:[facility] Start: 08-13-2024 End: 08-13-2024 Patient encounter procedure Ruiz Wagner Vega DO Work Phone: [facility] Comment on above: Well adult exam ([facility] Dx); 31 weeks gestation of (HCC); Class 2 obesity with body mass index (BMI) of 35.0 to 35.9 in adult, unspecified obesity type, unspecified whether serious comorbidity present; Gastroesophageal reflux disease without esophagitis Start: 08-13-2024 End: 08-13-2024 Patient encounter status Ruiz L Vega DO Work Phone: [facility] Work Phone: Start: 08-13-2024 End: 08-13-2024 ambulatory RUIZ L VEGA Facility:[facility] Start: 08-06-2024 End: 08-08-2024 Telephone encounter La Del Castillo APRN.CNM Work Phone: OB/Gynecology Comment on above: breast pump Start: 08-03-2024 End: 08-03-2024 Telephone encounter Nurse Home Restoration Service Supervisor Manisha Bond Work Phone: Obstetrics/Gynecology Comment on [...] Start: 08-01-2024 End: 08-01-2024 ambulatory CASTILLO MCKEON Facility:[facility] Start: 07-23-2024 End: 09-22-2024 Follow-up encounter Castillo Mckeon MD Work Phone: OB/Gynecology Start: 07-20-2024 End: 07-20-2024 Patient encounter procedure Lindsey Moreno APRN.WATERMASTER Work Phone: OB/Gynecology Comment on above: Supervision of high risk in third trimester (HCC) (Primary Dx); 28 weeks gestation of (HCC); Obesity affecting in third trimester, unspecified obesity type (HCC); Vaginal discharge during in third trimester (HCC) Start: 07-20-2024 End: 07-20-2024 ambulatory SELF Facility:[facility] Start: 07-19-2024 End: 07-19-2024 Telephone encounter [...] 06-21-2024 End: 06-21-2024 ambulatory LA DEL CASTILLO Facility:[facility] Start: 06-19-2024 End: 06-19-2024 ambulatory KIA LUCERO Facility:[facility] Start: 06-19-2024 End: 06-19-2024 Patient encounter procedure Janelle Marin MD Work Phone: OB/Gynecology Comment on above: 24 weeks gestation o f (HCC) (Primary Dx); Obesity in (HCC); Screening for diabetes mellitus Start: 06-06-2024 End: 06-06-2024 ambulatory Kia Lucero MD Work Phone: OB/Gynecology Comment on above: Possible [place] hic ks Start: 06-06-2024 End: 06-06-2024 Patient encounter procedure La Del Castillo APRN.CNM Work Phone: OB/Gynecology Comment on above: Obesity in (HCC) (Primary Dx); Supervision of normal first teen in second trimester (HCC); 22 weeks gestation of (HCC); Cramping affecting , antepartum (HCC) Start: 05-29-2024 End: 07-29-2024 Follow-up encounter Delfina Watson APRN.CNM Work Phone: OB/Gynecology Start: 05-28-2024 End: 05-28-2024 Telephone encounter Nurse Home Restoration Service Supervisor Manisha Bond Work Phone: Obstetrics/Gynecology Comment on above: PRAF Start: 05-25-2024 End: 05-25-2024 Office outpatient visit 15 minutes Kia Lucero MD Work Phone: OB/Gynecology Comment on above: Supervision of jas l first teen in second trimester (Primary Dx); Obesity in ; 20 weeks gestation of Start: 05-25-2024 End: 05-25-2024 ambulatory DELFINA WATSON Facility:[facility] Start: 05-25-2024 End: 05-25-2024 Patient encounter procedure Whi Tech 1 Home Restoration Service Supervisor [facility] Comment on above: Obesity in (Primary Dx); Supervision of normal first teen in first trimester; 13 weeks gestation of Start: 05-01-2024 End: 05-01-2024 Telephone encounter Janelle Marin MD Work Phone: OB/Gynecology Comment on above: Question (OB Questio n) Start: 04-28-2024 End: 04-28-2024 Emergency department patient visit Que Chavez Facility:[facility] Start: 04-27-2024 End: 04-27-2024 ambulatory DELFINA WATSON Facility:[facility] Start: 04-27-2024 End: 04-27-2024 Patient encounter procedure Delfina Walter BRAKE SHOE REBUILDER.CNM Work Phone: OB/Gynecology Comment on above: Supervision of jas l first teen in second trimester (Primary Dx); Obesity in ; 16 weeks gestation of ; Dizziness Start: 04-13-2024 End: 04-13-2024 Telephone encounter La Del Castillo APRN.CNM Work Phone: OB/Gynecology Start: 04-10-2024 End: 04-10-2024 Refill Que Chavez MD Work Phone: [facility] Comment on above: Refill Request Start: 04-03-2024 End: 04-03-2024 ambulatory NILDA LINSEY Facility:[facility] Start: 04-03-2024 End: 04-03-2024 Patient encounter procedure Delfina Watson BRAKE SHOE REBUILDER.CNM Work Phone: OB/Gynecology Comment on above: Supervision of jas l first teen in first trimester (Primary Dx); 13 weeks gestation of ; Obesity in Encounter for jyoti ferrell screening for malformation using ultrasound (Primary Dx); 13 weeks gestation of Start: 03-28-2024 End: 03-28-2024 ambulatory DNUCAN MUNGUIA Facility:[facility] Start: 03-28-2024 End: 03-28-2024 Patient encounter procedure Duncan Munguia MD Work Phone: OB/Gynecology Comment on above: Vaginal irritation ( Primary Dx); Vaginal discharge; Encounter for care in first trimester of first ; 12 weeks gestation of Start: 03-27-2024 End: 03-27-2024 ambulatory Delfina Watson BRAKE SHOE REBUILDER.CNM Work Phone: OB/Gynecology Comment on above: Possible yeast infec tion Start: 03-22-2024 End: 03-22-2024 Telephone encounter La Del Castillo BRAKE SHOE REBUILDER.CNM Work Phone: OB/Gynecology Comment on above: Medication Question Start: 03-19-2024 End: 03-19-2024 ambulatory QUE CHAVEZ Facility:[facility] Start: 03-19-2024 End: 03-19-2024 Patient encounter procedure Josiane Goodwin BRAKE SHOE REBUILDER.WATERMASTER Work Phone: [facility] [place] Comment on above: Acute non-recurrent frontal sinusitis (Primary Dx) Start: 03-13-2024 End: 03-13-2024 Office outpatient new 30 minutes Roberto Powers PA-C Work Phone: [place] [facility] Comment on above: Sore throat (Primary Dx) Start: 03-13-2024 End: 03-13-2024 ambulatory QUE CHAVEZ Facility:[facility] Start: 03-10-2024 End: 03-10-2024 ambulatory Vivian Jefferson RN NURSE OFFICE ASSISTANT RECEPTIONIST Start: 03-10-2024 End: 03-10-2024 Patient encounter procedure Vivian Jefferson RN NURSE ON [place] Comment on above: Clinical Update Start: 02-24-2024 End: 02-24-2024 Get Medical Advice Nilda Stiles BRAKE SHOE REBUILDER.WATERMASTER Work Phone: OB/Gynecology Comment on above: Lab Orders Start: 02-23-2024 End: 02-23-2024 Telephone encounter Pauline Au RN Obstetrics/Gynecology Comment on above: PRAF Start: 02-21-2024 End: 02-21-2024 ambulatory QUE CHAVEZ Facility:[facility] Start: 02-21-2024 End: 02-21-2024 Patient encounter procedure Nilda Bellcalf BRAKE SHOE REBUILDER.WATERMASTER Work Phone: OB/Gynecology Comment on above: Encounter for prenat al care in first trimester of first (Primary Dx); 7 weeks gestation of ; Vaginal irritation; BMI 32.0-32.9,adult; Supervision of normal first teen in first trimester Start: 01-30-2024 End: 01-30-2024 ambulatory QUE CHAVEZ Facility:[facility] Start: 01-30-2024 End: 01-30-2024 Patient encounter procedure Nilda Stiles BRAKE SHOE REBUILDER.WATERMASTER Work Phone: OB/Gynecology Comment on above: Encounter for pregna ncy test, result positive (Primary Dx) Start: 12-15-2023 End: 12-15-2023 Telephone encounter Nilda Stiles APRN.WATERMASTER Work Phone: OB/Gynecology Comment on above: Results Start: 12-12-2023 End: 12-12-2023 ambulatory QUE CHAVEZ Facility:[facility] Start: 12-12-2023 End: 12-12-2023 Patient encounter procedure Nilda Bellcalf BRAKE SHOE REBUILDER.WATERMASTER Work Phone: OB/Gynecology Comment on above: Vaginal discharge (P rimary Dx); Vaginal irritation; Family history of thyroid disorder Start: 11-15-2023 End: 11-15-2023 [facility] Start: 10-31-2023 End: 10-31-2023 ambulatory QUE CHAVEZ Facility:[facility] Start: 10-31-2023 End: 10-31-2023 Patient encounter procedure Sommer Hernandez PA-C Work Phone: [facility] [place] Comment on above: Encounter for wellne ss examination in adult (Primary Dx); Mild intermittent asthma with (acute) exacerbation; Seborrhea; Adverse food reaction, initial encounter Start: 10-31-2023 End: 10-31-2023 Patient encounter status Sommer Hernandez PA-C Work Phone: [facility] Work Phone: Start: 10-28-2023 End: 10-28-2023 Refill Que Chavez MD Work Phone: [facility] [place] Comment on above: Refill Request Start: 10-18-2023 End: 10-18-2023 ambulatory [facility] Facility:[facility] Start: 09-05-2023 Refill Que Chavez MD Work Phone: [facility] [place] Comment on above: Refill Request Start: 08-25-2023 End: 08-25-2023 Patient encounter procedure Nilda Linsey BRAKE SHOE REBUILDER.WATERMASTER Work Phone: OB/Gynecology Comment on above: Vaginal burning (Yudith bell Dx) Start: 08-21-2023 End: 08-21-2023 Patient encounter procedure Alecia Vanessa BRAKE SHOE REBUILDER.WATERMASTER Work Phone: [place] [facility] Comment on above: Sore throat (Primary Dx); Viral illness Start: 08-02-2023 Telephone encounter Nilda [facility] retirement BRAKE SHOE REBUILDER.WATERMASTER Work Phone: OB/Gynecology Comment on above: Results Start: 07-29-2023 End: 07-29-2023 Patient encounter procedure Nilda Brownwood BRAKE SHOE REBUILDER.WATERMASTER Work Phone: OB/Gynecology Comment on above: Vaginal discharge (P rimary Dx) Start: 07-28-2023 Refill Rachael Huffman BRAKE SHOE REBUILDER.WATERMASTER Work Phone: OB/Gynecology Comment on above: Refill Request Start: 07-12-2023 Telephone encounter Nilda [facility] retirement BRAKE SHOE REBUILDER.WATERMASTER Work Phone: OB/Gynecology Comment on above: Results Start: 07-11-2023 End: 07-11-2023 Patient encounter procedure Nilda Linsey BRAKE SHOE REBUILDER.WATERMASTER Work Phone: OB/Gynecology Comment on above: Vaginal [...] End: 05-13-2023 Subsequent hospital visit by physician [facility] Work Phone: Radiology Comment on above: Pelvic pain in femal e [R10.2] Start: 05-03-2023 End: 05-03-2023 Patient encounter procedure Delfina Watson APRN.CNM Work Phone: OB/Gynecology Comment on above: Vaginal discharge (P rimary Dx); Vaginal itching; Pelvic pain in female Start: 04-28-2023 ambulatory Sommer Hernandez PA-C Work Phone: [facility] [place] Comment on above: Allergy testing Start: 11-11-2022 ambulatory Nilda Stiles BRAKE SHOE REBUILDER.WATERMASTER Work Phone: [place] [facility] Start: 11-11-2022 Patient encounter procedure Re nee Brownwood BRAKE SHOE REBUILDER.WATERMASTER Work Phone: OB/Gynecology Comment on above: Should I make an ck ointment Start: 10-05-2022 End: 10-05-2022 Patient encounter procedure Sommer Hernandez PA-C Work Phone: [facility] [place] Comment on above: Encounter for wellne ss examination in adult (Primary Dx); Encounter for immunization Start: 10-05-2022 End: 10-05-2022 Patient encounter status Sommer Hernandez PA-C Work Phone: [facility] Work Phone: Start: 07-15-2022 End: 07-15-2022 Patient encounter procedure Nilda Brownwood BRAKE SHOE REBUILDER.WATERMASTER Work Phone: OB/Gynecology Comment on above: Missed period (Prima ry Dx); Encounter for other contraceptive management Start: 07-09-2022 ambulatory Nilda Brownwood BRAKE SHOE REBUILDER.WATERMASTER Work Phone: OB/Gynecology Comment on above: control Start: 05-27-2022 End: 05-27-2022 Patient encounter procedure Ramon Patrick MD Work Phone: [facility] Comment on above: URI, acute (Primary Dx); Wheezing Start: 05-10-2022 E-mail encounter fro m caregiver Nilda Bellcalf BRAKE SHOE REBUILDER.WATERMASTER Work Phone: [facility] Start: 05-10-2022 Patient encounter procedure Re nee Brownwood BRAKE SHOE REBUILDER.WATERMASTER Work Phone: OB/Gynecology Comment on above: appointment 05/17/22 Start: 05-07-2022 End: 05-07-2022 Patient encounter procedure Sommer Hernandez PA-C Work Phone: [facility] Comment on above: Dysfunction of both eustachian tubes (Primary Dx); Seasonal allergies Start: 04-30-2022 ambulatory Nilda Brownwood BRAKE SHOE REBUILDER.WATERMASTER Work Phone: OB/Gynecology Comment on above: Bacterial Vaginosis Start: 04-13-2022 Telephone encounter Nilda [facility] BRAKE SHOE REBUILDER.WATERMASTER Work Phone: OB/Gynecology Comment on above: Results Start: 04-12-2022 End: 04-12-2022 Patient encounter procedure Nilda Linsey BRAKE SHOE REBUILDER.WATERMASTER Work Phone: OB/Gynecology Comment on above: Vaginal irritation ( Primary Dx) Start: 04-09-2022 Telephone encounter Nilda [facility] retirement BRAKE SHOE REBUILDER.WATERMASTER Work Phone: OB/Gynecology Comment on above: Appointment (1st att empt no answer, no voicemail. Called to R/S w/ R.Brownwood for 2/6.) Start: 03-16-2022 End: 03-16-2022 Patient encounter procedure Nilda Stiles BRAKE SHOE REBUILDER.WATERMASTER Work Phone: OB/Gynecology Comment on above: Pelvic pain in femal e (Primary Dx); Encounter for surveillance of contraceptive pills Start: 01-18-2022 End: 01-18-2022 Patient encounter procedure Alecia Hodarrin FRITZ.WATERMASTER Work Phone: [place] [facility] Comment on above: Acute cough (Primary Dx); Fever, unspecified fever cause; Sore throat; URI with cough and congestion Start: 12-28-2021 End: 12-28-2021 Patient encounter procedure Nurse [facility] [place] [facility] [place] Comment on above: Encounter for immuni zation (Primary Dx) Start: 10-28-2021 End: 10-28-2021 Patient encounter procedure Sommer Hernandez PA-C Work Phone: [facility] [place] Comment on above: Seasonal allergies ( Primary Dx) Start: 10-05-2021 End: 10-05-2021 Patient encounter procedure Alecia Hodarrin FRITZ.WATERMASTER Work Phone: [place] [facility] Comment on above: Upper respiratory sy mptom (Primary Dx); Suspected COVID-19 virus infection Start: 09-18-2021 End: 09-18-2021 ambulatory Erinn Woody MD Work Phone: OB/Gynecology Comment on above: RECOVERY COACH Ultrasound Start: 09-18-2021 End: 09-18-2021 Patient encounter procedure Erinn Woody MD Work Phone: [place] [facility] Start: 07-13-2021 End: 07-13-2021 Patient encounter procedure Que Chavez MD Work Phone: [facility] [place] Comment on above: Encounter for [facility] (w ell child check) with abnormal [...] et rgnt non-auto w/o micrscp Delfina Watson BRAKE SHOE REBUILDER.CNM Work Phone: Start: 09-25-2024 Urnls dip stick/tabl [...] rgnt non-auto w/o micrscp La Del Castillo BRAKE SHOE REBUILDER.CNM Work Phone: Start: 06-06-2024 Urnls dip stick/tabl et rgnt auto w/o microscopy La Del Castillo BRAKE SHOE REBUILDER.CNM Work Phone: Start: 05-25-2024 Us preg uterus after 1st trimest / gestation Delfina Watson BRAKE SHOE REBUILDER.CNM Work Phone: Start: 04-03-2024 Us nuchal translucency 1st gestation Nilda Linsey BRAKE SHOE REBUILDER.WATERMASTER Work Phone: Start: 03-13-2024 STREP A MOLECULAR (POC) Delfina Nicholas BRAKE SHOE REBUILDER.WATERMASTER Work Phone: Start: 02-24-2024 Antibody screen NILDA LOWE Comment on above: Order Comment: Speci men Type: SWAB Ordering Facility: [facility] Address: [address] [place] [address] Performed By: #### C VTV, BVAMP #### [facility] CLIA [id number] [address] [place] [address] [place] [address] [place] Start: 02-21-2024 Us uterus l imited fetuses Nilda Brownwood BRAKE SHOE REBUILDER.WATERMASTER Work Phone: Start: 01-30-2024 UA DIP,URINE HCG (POC) Nilda Bellcalf BRAKE SHOE REBUILDER.WATERMASTER Work Phone: Start: 10-31-2023 Adult depression scr eening assessment Nilda Linsey BRAKE SHOE REBUILDER.WATERMASTER Work Phone: Start: 08-21-2023 STREP A MOLECULAR (POC) [facility] Provider Start: 07-11-2023 BACTERIAL VAGINOSIS NAAT Nilda Bellcalf BRAKE SHOE REBUILDER.WATERMASTER Work Phone: Start: 07-11-2023 Iadna trichomonas vaginalis amplified probe tech Nilda Bellcalf BRAKE SHOE REBUILDER.WATERMASTER Work Phone: Start: 05-13-2023 Us transvaginal Delfina Watson BRAKE SHOE REBUILDER.CNM Work Phone: Start: 05-03-2023 BACTERIAL VAGINOSIS NAAT Delfina Watson BRAKE SHOE REBUILDER.CNM Work Phone: Start: 05-03-2023 Iadna chlamydia trachomatis amplified probe tq Delfina Watson BRAKE SHOE REBUILDER.CNM Work Phone: Start: 07-15-2022 Urine test visual color cmprsn meths Nilda Brownwood BRAKE SHOE REBUILDER.WATERMASTER Work Phone: Start: 12-28-2021 [employer] COVI D-19 PRIMARY SERIES VACCINE, AGE 12+ YR Sommer Hernandez PA-C Work Phone: Start: 07-13-2021 Adult depression scr eening assessment Que Chavez MD Work Phone: Start: 05-05-2017 Adult depression scr eening assessment Que Chavez MD Work Phone: Plan of Treatment Date Care Activity Detail Author Start: 06-13-2031 Urine microalbumin profile [facility] Start: 08-13-2025 Annual PCP Team Blue Line Operator lluvia Disease Visit Annual PCP Team Chronic Disease Visit [facility] Start: 03-19-2025 Annual PCP Team Blue Line Operator lluvia Disease Visit Annual PCP Team Chronic Disease Visit [facility] Start: 02-20-2025 GC (Gonorrhea) Scree alexsandra (18) GC (Gonorrhea) Screening () [facility] Start: 02-20-2025 Screening for Chlamy morgan trachomatis Chlamydia Screening () [facility] Start: 12-14-2024 End: 12-14-2024 Patient encounter procedure 12/14/2024 1:40 PM EDT Office Visit [facility] [place] [address] [place], [place] [id number] Ruiz Vega DO [address] [place], [place] [address] Follow up [facility] [place] Comment on above: Follow up Start: 11-05-2024 Influenza vaccination Influenza Vacc ine (#1) [facility] Start: 10-30-2024 Annual PCP Team Blue Line Operator lluvia Disease Visit Annual PCP Team Chronic Disease Visit [facility] Start: 10-30-2024 Anxiety Screening Anxiety Screening [facility] Start: 10-30-2024 Asthma Control Test Asthma Control T est [facility] Start: 10-30-2024 Depression Screening Depression Scre ening [facility] Start: 10-15-2024 ambulatory Ambulatory [facility] Start: 10-13-2024 [facility] Start: 10-12-2024 Nonstress test [facility] Start: 10-12-2024 Obstetric monitoring [facility] Start: 10-12-2024 Vital signs measurements [facility] Start: 10-12-2024 [facility] Start: 10-09-2024 End: 10-09-2024 Patient encounter procedure 10/09/2024 1:40 PM EDT Routine Office Visit OB/Gynecology [address] [place] [address] Castillo Mckeon MD [address] [place] [address] OB OB/Gynecology Comment on above: OB Start: 10-05-2024 End: 10-05-2024 Patient encounter procedure 10/05/2024 4:30 PM EDT Routine Office Visit OB/Gynecology [address] [place] [address] Delfina Watson APRN.[facility] [address] [place] [address] OB OB/Gynecology Comment on above: OB Start: 10-02-2024 End: 10-02-2024 Patient encounter procedure 10/02/2024 1:30 PM EDT Routine Office Visit OB/Gynecology [address] [place] [address] Kia Lucero MD [address] [place] [address] OB OB/Gynecology Comment on above: OB Start: 09-25-2024 End: 09-25-2024 Patient encounter procedure 09/25/2024 2:20 PM EDT Routine Office Visit OB/Gynecology [address] [place] [address] Janelle Marin MD [address] [place] [address] OB OB/Gynecology Comment on above: OB Start: 09-18-2024 End: 09-18-2024 Patient encounter procedure 09/18/2024 1:30 PM EDT Routine Office Visit OB/Gynecology [address] [place] [address] Alo Thompson MD [address] [place] [address] (Fax) OB OB/Gynecology Comment on above: OB Start: 09-12-2024 End: 09-12-2024 Patient encounter procedure 09/12/2024 10:10 AM EDT Routine Office Visit OB/Gynecology [address] [place] [address] Castillo Mckeon MD [address] [place] [address] (Fax) OB OB/Gynecology Comment on above: OB Start: 09-04-2024 [facility] Start: 09-04-2024 [facility] Start: 08-30-2024 End: 08-30-2024 Patient encounter procedure 08/30/2024 3:15 PM EDT Routine Office Visit OB/Gynecology [address] [place] [address] La Del Castillo APRN.CNM [address] [place] [address] (Fax) Ob OB/Gynecology Comment on above: Ob Start: 08-16-2024 End: 08-16-2024 Patient encounter procedure 08/16/2024 2:30 PM EDT Routine Office Visit OB/Gynecology [address] [place] [address] Lindsey Moreno APRN.WATERMASTER [address] [place] [address] (Fax) OB OB/Gynecology Comment on above: OB Start: 08-13-2024 End: 08-13-2024 Patient encounter procedure 08/13/2024 9:20 AM EDT Office Visit [facility] [place] [address] [place] [address] Ruiz Vega L, DO [address] [place] [address] Transfer from peds/[facility] Comment on above: Transfer from peds/[facility] Start: 08-03-2024 End: 08-03-2024 Patient encounter procedure 08/03/2024 2:30 PM EDT Routine Office Visit OB/Gynecology [address] [place] [address] Erinn Schwartz MD [address] [place] [address] OB OB/Gynecology Comment on above: OB Start: 08-02-2024 End: 08-02-2024 Patient encounter procedure 08/02/2024 10:30 AM EDT Routine Office Visit OB/Gynecology [address] [place] [address] La Del Castillo APRN.CNM [address] [place] [address] OB OB/Gynecology Comment on above: OB Start: 08-01-2024 End: 10-31-2024 BILE ACIDS, TOTAL [facility] Work Phone: Comment on above: Expected: 08/01/2024 , Expires: 10/31/2024 Start: 07-20-2024 End: 07-20-2024 Patient encounter procedure 07/20/2024 8:45 AM EDT Routine Office Visit OB/Gynecology [address] [place] [address] Lindsey Moreno APRN.WATERMASTER [address] [place] [address] OB Routine OB/Gynecology Comment on above: OB Routine Start: 07-20-2024 End: 07-20-2024 ambulatory 07/20/2024 8:30 AM EDT Results Only [place] [facility] [address] [place] [address] Glucose Test and LABs [facility] Laboratory Comment on above: Glucose Test and LAB s Start: 06-23-2024 Annual PCP Team Blue Line Operator lluvia Disease Visit Annual PCP Team Chronic Disease Visit [facility] Start: 06-19-2024 End: 06-19-2024 Patient encounter procedure 06/19/2024 2:40 PM EDT Routine Office Visit OB/Gynecology [address] [place] [address] Kia Lucero MD [address] [place] [address] OB OB/Gynecology Comment on above: OB Start: 06-19-2024 End: 09-18-2024 ANEMIA REFLEX PANEL ANEMIA REFLEX PANEL Lab Routine 24 weeks gestation of ([facility]) Expected: 06/19/2024, Expires: 09/18/2024 [facility] Comment on above: Expected: 06/19/2024 , Expires: 09/18/2024 Start: 06-19-2024 End: 06-19-2025 GESTATIONAL GLUCOSE SCREEN, 1-HOUR, 50 GRAM, NON-FASTING GESTATIONAL GLUCOSE SCREEN, 1-HOUR, 50 GRAM, NON-FASTING Lab Routine 24 weeks gestation of ([facility]) Screening for diabetes mellitus Expected: 06/19/2024, Expires: 06/19/2025 [facility] Work Phone: Comment on above: Expected: 06/19/2024 , Expires: 06/19/2025 Start: 06-19-2024 End: 06-19-2025 SYPHILIS TREPONEMAL W/REFLEX SYPHILIS TREPONEMAL W/REFLEX Lab Routine 24 weeks gestation of ([facility]) Expected: 06/19/2024, Expires: 06/19/2025 [facility] Comment on above: Expected: 06/19/2024 , Expires: 06/19/2025 Start: 05-25-2024 End: 05-25-2024 Patient encounter procedure Maternal Medicine Comment on above: Anatomy OB Start: 05-03-2024 GC (Gonorrhea) Scree alexsandra (18) GC (Gonorrhea) Screening () [facility] Start: 05-03-2024 Screening for Chlamy morgan trachomatis Chlamydia Screening () [facility] Start: 04-27-2024 End: 04-27-2024 Patient encounter procedure 04/27/2024 1:15 PM EST Routine Office Visit OB/Gynecology [address] [place], [place] [id number] Delfina Watson APRN.CN [address] [place] [address] OB OB/Gynecology Comment on above: OB Start: 04-03-2024 End: 04-03-2024 Patient encounter procedure Maternal Medicine Comment on above: Nuchal Nuchal/ OB Start: 04-03-2024 End: 04-03-2025 OBSTETRIC ULTRASOUND WHI OBSTETRIC ULTRASOUND WHI Anc Imaging Routine Supervision of normal first teen in first trimester 13 weeks gestation of Obesity in Expected: 04/03/2024, Expires: 04/03/2025 [facility] Work Phone: Comment on above: Expected: 04/03/2024 , Expires: 04/03/2025 Start: 03-28-2024 End: 03-28-2024 Patient encounter procedure 03/28/2024 9:10 AM EST Routine Office Visit OB/Gynecology [address] [place], [place] [id number] Duncan Munguia MD [address] [place] [address] vaginal infection OB/Gynecology Comment on above: vaginal infection Start: 02-21-2024 End: 05-22-2024 ANEMIA REFLEX PANEL ANEMIA REFLEX PANEL Lab Routine Encounter for care in first trimester of first 7 weeks gestation of Expected: 02/21/2024, Expires: 05/22/2024 [facility] Work Phone: Comment on above: Expected: 02/21/2024 , Expires: 05/22/2024 Start: 02-21-2024 End: 05-22-2024 Chromosome 21 trisomy [Presence] in Blood or Tissue by Cytogenetics [id number] [id number] Lab Routine 7 weeks gestation of Expected: 02/21/2024, Expires: 05/22/2024 [facility] Comment on above: Expected: 02/21/2024 , Expires: 05/22/2024 Start: 02-21-2024 End: 05-22-2024 Hemoglobin A1c in Blood HEMOGLOBIN A1C Lab Routine Encounter for care in first trimester of first 7 weeks gestation of Expected: 02/21/2024, Expires: 05/22/2024 [facility] Comment on above: Expected: 02/21/2024 , Expires: 05/22/2024 Start: 02-21-2024 End: 05-22-2024 Hepatitis B virus surface Ag [Presence] in Serum HEPATITIS B SURFACE ANTIGEN Lab Routine Encounter for care in first trimester of first 7 weeks gestation of Expected: 02/21/2024, Expires: 05/22/2024 [facility] Comment on above: Expected: 02/21/2024 , Expires: 05/22/2024 Start: 02-21-2024 End: 05-22-2024 Hepatitis C virus Ab [Presence] in Serum HEPATITIS C ANTIBODY IA WITH CONFIRMATION Lab Routine Encounter for care in first trimester of first 7 weeks gestation of Expected: 02/21/2024, Expires: 05/22/2024 [facility] Comment on above: Expected: 02/21/2024 , Expires: 05/22/2024 Start: 02-21-2024 End: 05-22-2024 HIV 1+2 Ab [Presence] in Serum or Plasma by Immunoassay HIV 1/2 COMBO WITH REFLEX TO DIFFERENTIATION Lab Routine Encounter for care in first trimester of first 7 weeks gestation of Expected: 02/21/2024, Expires: 05/22/2024 [facility] Comment on above: Expected: 02/21/2024 , Expires: 05/22/2024 Start: 02-21-2024 End: 02-20-2025 NUCHAL TRANSLUCENCY WHI NUCHAL TRANSLUCENCY WHI Anc Imaging Routine Encounter for care in first trimester of first 7 weeks gestation of Expected: 02/21/2024, Expires: 02/20/2025 [facility] Comment on above: Expected: 02/21/2024 , Expires: 02/20/2025 Start: 02-21-2024 End: 05-22-2024 RUBELLA IGG ANTIBODY RUBELLA IGG ANTIBODY Lab Routine Encounter for care in first trimester of first 7 weeks gestation of Expected: 02/21/2024, Expires: 05/22/2024 [facility] Comment on above: Expected: 02/21/2024 , Expires: 05/22/2024 Start: 02-21-2024 End: 05-22-2024 SYPHILIS TREPONEMAL W/REFLEX SYPHILIS TREPONEMAL W/REFLEX Lab Routine Encounter for care in first trimester of first 7 weeks gestation of Expected: 02/21/2024, Expires: 05/22/2024 [facility] Comment on above: Expected: 02/21/2024 , Expires: 05/22/2024 Start: 02-21-2024 End: 05-22-2024 TYPE + SCREEN TYPE + SCREEN Blood Bank Routine Encounter for care in first trimester of first 7 weeks gestation of Expected: 02/21/2024, Expires: 05/22/2024 [facility] Comment on above: Expected: 02/21/2024 , Expires: 05/22/2024 Start: 02-21-2024 End: 02-21-2024 Patient encounter procedure 02/21/2024 8:15 AM EST Initial Office Visit OB/Gynecology [address] [place] [address] Nilda Stiles APRN.[employer] [address] [place] [address] New OB OB/Gynecology Comment on above: New OB Start: 12-12-2023 End: 03-12-2024 THYROID PEROXIDASE ANTIBODY [facility] Comment on above: Expected: 12/12/2023 , Expires: 03/12/2024 Start: 12-12-2023 End: 03-12-2024 Thyrotropin [Units/volume] in Serum or Plasma [facility] Work Phone: Comment on above: Expected: 12/12/2023 , Expires: 03/12/2024 Start: 12-12-2023 End: 03-12-2024 Thyroxine (T4) free [Mass/volume] in Serum or Plasma [facility] Comment on above: Expected: 12/12/2023 , Expires: 03/12/2024 Start: 12-12-2023 End: 03-12-2024 Triiodothyronine (T3) Free [Mass/volume] in Serum or Plasma [facility] Comment on above: Expected: 12/12/2023 , Expires: 03/12/2024 Start: 12-07-2023 End: 12-07-2023 Patient encounter procedure 12/07/2023 8:30 AM EDT Office Visit Allergy [address] [phone] Tio Wilcox MD [address], [place] [phone] Adverse food reaction, initial encounter [T78.1XXA] Allergy Comment on above: Adverse food reactio n, initial encounter [T78.1XXA] Start: 11-11-2023 End: 11-11-2023 Patient encounter procedure 11/11/2023 8:00 AM EDT Office Visit OB/Gynecology [address] [place] [address] Nilda Stiles APRN.[employer] [address] [facility] [place] [address] yeast infection resistant OB/Gynecology Comment on above: yeast infection resi stant Start: 11-06-2023 Covid-19 Vaccine ( season) Covid-19 Vaccine ( season) [facility] Start: 11-06-2023 Influenza vaccination C [facility] Start: 10-31-2023 End: 10-31-2023 Patient encounter procedure 10/31/2023 11:00 AM EDT Office Visit [facility] [place] [address] [place] [address] Sommer Hernandez PA-C [address] [place] [address] [facility] Pediatric[facility] [place] Comment on above: [facility] Start: 03-16-2023 CHLAMYDIA SCREENING (18-24) CHLAMYDIA SCREENING (18-24) [facility] Start: 03-16-2023 CHLAMYDIA SCREENING (<18) CHLA MYDIA SCREENING (<18) [facility] Start: 03-16-2023 GC (GONORRHEA) SCREE ALEXSANDRA (18-24) GC (GONORRHEA) SCREENING (18-24) [facility] Start: 03-16-2023 GC (GONORRHEA) SCREE ALEXSANDRA (<18) GC (GONORRHEA) SCREENING (<18) [facility] Start: 03-16-2023 Screening for Chlamy morgan trachomatis Chlamydia Screening (18-24) [facility] Start: 03-07-2023 Behavioral Health Screening Behavioral Health Screening [facility] Start: 03-07-2023 Depression Assessment Depression Ass [facility] Start: 11-05-2022 Covid-19 Vaccine ( season) Covid-19 Vaccine ( season) [facility] Start: 11-05-2022 Influenza vaccination [facility] Start: 2022 Anxiety Screening Anxiety Screening [facility] Start: 2022 Depression Screening Depression Scre ening [facility] Start: 2022 HEPATITIS C SCREENING HEPATITIS C [facility] Start: 2022 Hepatitis C screening Hepatitis C [facility] Start: 2022 HIV SCREENING HIV SCREENING [facility] Start: 2022 HIV screening HIV Screening [facility] Start: 2022 Spirometry Spirometry [facility] Start: 07-13-2022 Adult depression screening assessment DEPRESSION SCREENING [facility] Start: 03-07-2022 DEPRESSION ASSESSMENT DEPRESSION ASS ESSMENT [facility] Start: 02-22-2022 COVID-19 VACCINE (3 - Booster for Pfizer series) COVID-19 VACCINE (3 - Booster for Pfizer series) [facility] Start: 02-22-2022 COVID-19 VACCINE (3 - Pfizer series) COVID-19 VACCINE (3 - Pfizer series) [facility] Start: 01-18-2022 End: 02-01-2022 COVID, FLU A/B + RSV, ROUTINE [facility] Work Phone: Comment on above: Expected: 01/18/2022 , Expires: 02/01/2022 Start: 11-05-2021 Influenza vaccination C [facility] Start: 10-05-2021 End: 10-19-2021 COVID, FLU A/B + RSV, ROUTINE COVID, FLU A/B + RSV, ROUTINE Microbiology Routine Upper respiratory symptom Suspected COVID-19 virus infection Expected: 10/05/2021, Expires: 10/19/2021 [facility] Work Phone: Comment on above: Expected: 10/05/2021 , Expires: 10/19/2021 Start: 04-27-2021 Asthma Action Plan Asthma Action Yessenia n [facility] Start: 2020 Meningococcal B Vacc ine (1 of 2 - Standard) Meningococcal B Vaccine (1 of 2 - Standard) [facility] Start: 2020 Meningococcal B Vacc ine: Consider Based On Risk (1 of 2 - Patient Seeks Protection) Meningococcal B Vaccine: Consider Based On Risk (1 of 2 - Patient Seeks Protection) [facility] Start: 2020 MENINGOCOCCAL B: 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 green 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 based on risk (1 of 2 - Patient Seeks Protection) MENINGOCOCCAL B: Consider based on risk (1 of 2 - Patient Seeks Protection) [facility] Start: 04-27-2020 Asthma Control Test Asthma Control T est [facility] Start: 10-26-2019 HPV VACCINE (2 - 2-d ose series) HPV VACCINE (2 - 2-dose series) [facility] Start: 08-13-2019 CHLAMYDIA SCREENING (<18) CHLA MYDIA SCREENING (<18) [facility] Start: 08-13-2019 GC (GONORRHEA) SCREE ALEXSANDRA (<18) GC (GONORRHEA) SCREENING (<18) [facility] Start: 2018 PEDS TO ADULT TRANSI TION ANNUAL ASSESSMENT PEDS TO ADULT TRANSITION ANNUAL ASSESSMENT [facility] Start: 05-05-2018 Adult depression screening assessment DEPRESSION SCREENING [facility] Start: 2016 PEDS TO ADULT TRANSI TION INITIAL DISCUSSION PEDS TO ADULT TRANSITION INITIAL DISCUSSION [facility] Start: 2014 MENINGOCOCCAL B: 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 green 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 based on risk (1 of 2 - Risk Bexsero 2-dose series) MENINGOCOCCAL B: Consider based on risk (1 of 2 - Risk Bexsero 2-dose series) [facility] Start: 2009 COVID-19 VACCINE (#1) COVID-19 VACCI NE (#1) [facility] Start: 2009 COVID-19 VACCINE (1) COVID-19 VACCIN E (1) [facility] Start: 02-11-2005 COVID-19 VACCINE (#1) COVID-19 VACCI NE (#1) [facility] Bacteria identified in Urine by Culture URINE CULTURE Microbiology Routine Encounter for care in first trimester of first 7 weeks gestation of 02/21/2024 8:57 AM [facility] BACTERIAL VAGINOSIS AMPLIFICATION BACTERIAL VAGINOSIS AMPLIFICATION Lab Routine Pelvic pain in female 03/16/2022 10:38 AM [facility] Work Phone: BACTERIAL VAGINOSIS AMPLIFICATION BACTERIAL VAGINOSIS AMPLIFICATION Lab Routine Vaginal irritation 04/12/2022 8:51 AM [facility] Work Phone: BACTERIAL VAGINOSIS NAAT BACTERI AL VAGINOSIS NAAT Lab Routine Vaginal discharge 07/29/2023 8:31 AM EDT [facility] BACTERIAL VAGINOSIS NAAT BACTERI AL VAGINOSIS NAAT Lab Routine Vaginal discharge [facility]AT BACTERI AL VAGINOSIS NAAT Lab Routine Vaginal irritation 02/21/2024 8:57 AM [facility] BACTERIAL VAGINOSIS NAAT BACTERI AL VAGINOSIS NAAT Lab Routine Vaginal irritation Vaginal discharge 03/28/2024 10:13 AM [facility] Work Phone: BACTERIAL VAGINOSIS NAAT BACTERI AL VAGINOSIS NAAT Lab Routine Vaginal discharge during in third trimester (HCC) 07/20/2024 8:54 AM [facility] Work Phone: FRANCO / TRICHOMONA S AMPLIFICATION FRANCO / TRICHOMONAS AMPLIFICATION Microbiology Routine Pelvic pain in female 03/16/2022 10:38 AM [employer] [facility] Work Phone: FRANCO / TRICHOMONA S AMPLIFICATION FRANCO / TRICHOMONAS AMPLIFICATION Microbiology Routine Vaginal irritation 04/12/2022 8:51 AM [facility] Work Phone: FRANCO/TRICHOMONAS NAAT FRANCO /TRICHOMONAS NAAT Lab Routine Vaginal discharge 07/29/2023 8:31 AM T [facility] Work Phone: FRANCO/TRICHOMONAS NAAT FRANOC /TRICHOMONAS NAAT Lab Routine Vaginal discharge Vaginal irritation 12/12/2023 4:17 PM EDT [facility] FRANCO/TRICHOMONAS NAAT FRANCO /TRICHOMONAS NAAT Lab Routine Vaginal irritation 02/21/2024 8:57 AM [facility] FRANCO/TRICHOMONAS NAAT FRANCO /TRICHOMONAS NAAT Lab Routine Vaginal irritation Vaginal discharge 03/28/2024 10:13 AM [facility] FRANCO/TRICHOMONAS NAAT FRANCO /TRICHOMONAS NAAT Lab Routine Vaginal discharge during in third trimester (HCC) 07/20/2024 8:54 AM [facility] Chlamydia trachomatis+Neisseria gonorrhoeae DNA [Presence] in Unspecified specimen by MEG with probe detection GC/CHLAMYDIA DNA DET Lab Routine Pelvic pain in female 03/16/2022 10:38 AM [facility] Work Phone: Chlamydia trachomatis+Neisseria gonorrhoeae DNA [Presence] in Unspecified specimen by MEG with probe detection GONORRHEA/CHLAMYDIA NAAT Lab Routine Encounter for care in first trimester of first 7 weeks gestation of 02/21/2024 8:57 AM [facility] Measurement of pH in vaginal fluid specimen using nitrazine yellow for detection of rupture of amniotic membrane [facility] Patient Education [facility] Work Phone: Removal intrauterine device iud REMOVE INTRAUTERINE DEVICE Procedures Routine Malpositioned intrauterine device (IUD), initial encounter Encounter for IUD removal Ordered: 05/13/2023 [facility] Work Phone: Comment on above: Ordered: 05/13/2023 ROUTINE FLU A/B + RSV ROUTINE FL U A/B + RSV Lab Routine Upper respiratory symptom Suspected COVID-19 virus infection Ordered: 10/05/2021 [facility] Work Phone: Comment on above: Ordered: 10/05/2021 ROUTINE FLU A/B + RSV ROUTINE FL U A/B + RSV Lab Routine Acute cough Fever, unspecified fever cause Sore throat URI with cough and congestion 01/18/2022 10:38 AM [facility] Work Phone: ROUTINE, GR OUP B STREPTOCOCCUS BY PCR ROUTINE, GROUP B STREPTOCOCCUS BY PCR Microbiology Routine 36 weeks gestation of ([facility]) 09/12/2024 10:54 AM EDT [facility] Work Phone: SARS-CoV-2 (COVID-19 ) RNA [Presence] in Respiratory specimen by MEG with probe detection 2019 CORONAVIRUS Microbiology Routine Upper respiratory symptom Suspected COVID-19 virus infection Ordered: 10/05/2021 [facility] Work Phone: Comment on above: Ordered: 10/05/2021 SARS-CoV-2 (COVID-19 ) RNA [Presence] in Respiratory specimen by MEG with probe detection 2019 CORONAVIRUS Microbiology Routine Acute cough Fever, unspecified fever cause Sore throat URI with cough and congestion 01/18/2022 10:38 AM [facility] Work Phone: SARS-CoV-2 (COVID-19 ) RNA [Presence] in Respiratory specimen by MEG with probe detection 2019 CORONAVIRUS Microbiology Routine URI, acute Wheezing Ordered: 05/27/2022 [facility] Work Phone: Comment on above: Ordered: 05/27/2022 UROGENITAL UREAPLASM A AND MYCOPLASMA SPECIES BY PCR, FOR GENITAL, RECTAL, URINE SAMPLES UROGENITAL UREAPLASMA AND MYCOPLASMA SPECIES BY PCR, FOR GENITAL, RECTAL, URINE SAMPLES Lab Routine Vaginal discharge Vaginal irritation 12/12/2023 4:17 PM EDT [facility] c [facility] c [facility] Immunizations Immunization Date Immunization Notes Care Provider [facility] 12-14-2023 influenza, seasonal, injectable, preservative free Dr. Ruiz Vega DO Work Phone: [facility] 12-14-2023 influenza virus vacc ine, unspecified formulation Janelle Marin MD Work Phone: [facility] 10-05-2022 Human Papillomavirus 9-valent vaccine Sommer Hernandez PA-C Work Phone: [facility] 12-28-2021 Covid (Pfizer) Dr. Ruiz Vega DO Work Phone: [facility] 12-28-2021 COVID-19 original vaccine, age 12+ yr, monovalent (PFIZER-BIONTECH - MARTINEZ TOP) Nurse [facility] 12-03-2021 Covid (Pfizer) Dr. Ruiz Vega DO Work Phone: [facility] 12-03-2021 COVID-19 original vaccine, age 12+ yr, monovalent (PFIZER-BIONTECH - MARTINEZ TOP) Nurse [facility] 06-12-2021 meningococcal polysaccharide (groups A, C, Y and W-135) diphtheria toxoid conjugate vaccine (MCV4P) Que Chavez MD Work Phone: [facility] Work Phone: 06-12-2021 tetanus toxoid, redu monique diphtheria toxoid, and acellular pertussis vaccine, adsorbed Que Chavez MD Work Phone: [facility] Work Phone: 06-12-2021 Meningococcal, MCV4, unspecified conjugate formulation(groups A, C, Y and W-135) Que Chavez MD Work Phone: [facility] Work Phone: 04-27-2019 Human Papillomavirus 9-valent vaccine Que Chavez MD Work Phone: [facility] 04-27-2019 influenza, injectabl e, quadrivalent, preservative free Que Chavez MD Work Phone: [facility] 04-27-2019 influenza virus vacc ine, unspecified formulation Sommer Hernandez PA-C Work Phone: [facility] 01-07-2010 hepatitis A vaccine, pediatric/adolescent dosage, 2 dose schedule Que Chavez MD Work Phone: [facility] Work Phone: 01-07-2010 influenza, seasonal, injectable Que Chavez MD Work Phone: [facility] 11-03-2009 poliovirus vaccine, inactivated Que Chavez MD Work Phone: [facility] 10-27-2009 diphtheria, tetanus toxoids and acellular pertussis vaccine Que Chavez MD Work Phone: [facility] 10-27-2009 measles, mumps, rube lla, and varicella virus vaccine Que Chavez MD Work Phone: [facility] 10-27-2009 poliovirus vaccine, unspecified formulation Que Chavez MD Work Phone: [facility] Work Phone: 12-03-2008 Diphtheria, tetanus toxoids and acellular pertussis vaccine, and poliovirus vaccine, inactivated Que Chavez MD Work Phone: [facility] Work Phone: 12-03-2008 influenza, seasonal, injectable Que Chavez MD Work Phone: [facility] 12-03-2008 measles, mumps and rubella virus vaccine Que Chavez MD Work Phone: [facility] Work Phone: 10-03-2006 diphtheria, tetanus toxoids and acellular pertussis vaccine Que Chavez MD Work Phone: [facility] Work Phone: 10-03-2006 haemophilus influenz ae type b vaccine, HbOC conjugate Que Chavez MD Work Phone: [facility] 10-03-2006 measles, mumps, rube lla, and varicella virus vaccine Que Chavez MD Work Phone: [facility] Work Phone: 10-03-2006 pneumococcal conjuga te vaccine, 7 valent Que Chavez MD Work Phone: [facility] Work Phone: 06-17-2005 diphtheria, tetanus toxoids and acellular pertussis vaccine Que Chavez MD Work Phone: [facility] Work Phone: 06-17-2005 haemophilus influenz ae type b vaccine, HbOC conjugate Que Chavez MD Work Phone: [facility] 06-17-2005 pneumococcal conjuga te vaccine, 7 valent Que Chavez MD Work Phone: [facility] Work Phone: 06-17-2005 poliovirus vaccine, inactivated Que Chavez MD Work Phone: [facility] Work Phone: 05-06-2005 DTaP-hepatitis B and poliovirus vaccine Que Chavez MD Work Phone: [facility] Work Phone: 05-06-2005 haemophilus influenz ae type b vaccine, HbOC conjugate Que Chavez MD Work Phone: [facility] 05-06-2005 pneumococcal conjuga te vaccine, 7 valent Que Chavez MD Work Phone: [facility] Work Phone: 2004 DTaP-hepatitis B and poliovirus vaccine Que Chavez MD Work Phone: [facility] Work Phone: 2004 haemophilus influenz ae type b vaccine, HbOC conjugate Que Chavez MD Work Phone: [facility] 2004 pneumococcal conjuga te vaccine, 7 valent Que Chavez MD Work Phone: [facility] Work Phone: 2004 hepatitis B vaccine, pediatric or pediatric/adolescent dosage Que Chavez MD Work Phone: [facility] Payers Date Payer Category Payer Self-pay 2022 Unknown [id number] 2021 Medicaid [place] [employer] [place] [employer] [id number] 2021-Present [phone] [facility] [address] [place] [address] 118[address] Medicaid [id number] 2021 Medicaid [id number] 2016 Medicaid [id number] 2016 Unknown [id number] Unknown [id number] Unknown [id number] Unknown [id number] Unknown [id number] Unknown [id number] Unknown [id number] Unknown [id number] Social History Date Type Detail Facility Start: 01-13-2021 End: 09-04-2024 Tobacco smoking status NHIS Never smoked tobacco [facility] Work Phone: Start: 01-13-2021 End: 10-28-2021 Tobacco use and exposure Smokeless tobacco non-user [facility] Work Phone: Start: 06-12-2021 End: 10-05-2024 Alcohol intake Current non-drinker of alcohol (finding) [facility] Start: 12-29-2017 End: 10-28-2021 Tobacco Comment Second hand smoke exposure [facility] Start: 2005 Sex Assigned At Female [facility] Start: 06-02-2021 End: 01-18-2022 Exposure to SARS-CoV-2 (event) Not sure [facility] Work Phone: Start: 07-13-2021 History SDOH Physical Activity DPW 2 [facility] Start: 07-13-2021 History SDOH Financial 4 [facility] Start: 07-13-2021 History SDOH Food Worry 1 [facility] Start: 10-05-2022 End: 08-23-2023 History of Social function [facility] Start: 10-05-2022 End: 08-23-2023 Tobacco use panel [facility] How hard is it for y ou to pay for the very basics like food, housing, medical care, and heating Not very hard [facility] (I/We) worried wheth er (my/our) food would run out before (I/we) got money to buy more. Never true [facility] In the past 12 month s, has lack of transportation kept you from medical appointments or from getting medications? No [facility] In the past 12 month s, was there a time when you were not able to pay the mortgage or rent on time? No [facility] Start: 12-29-2017 Gender identity Identifies as female gender (finding) [facility] Start: 12-29-2017 Sexual orientation Heterosexual (finding) [facility] Are you now , , , , never or living with a partner? Never [facility] How often to you hav e a drink containing alcohol? Never [facility] Do you feel stress - tense, restless, nervous, or anxious, or unable to sleep at night because your mind is troubled all the time - these days [OSQ] Not at all [facility] Start: 02-16-2024 Education 12 [facility] Start: 01-17-2024 [facility] Goals Date Patient Goal Desired Activity /State Personal health goal Mental Status Date Assessment Result Facility 09-04-2024 Cognitive function Awake;Alert;A ppropriate;Fol lows Commands [facility] Work Phone: Clinical Notes 08-09-2016 to [...] discussed with the Patient or Patient's Authorized Iron Plastic Bullet Maker. As applicable, any other physician, advance practice provider, medical student, or other health professional student that will be observing or involved in the sensitive examination for educational or training purposes was discussed with the Patient or Authorized Iron Plastic Bullet Maker. The Patient or Authorized Iron Plastic Bullet Maker has agreed to proceed with the sensitive [...] RTO in one week Delfina Watson APRN.CNM [facility] 10-05-2024 Note HNO ID: [id number] Author: DELFINA WATSON APRN.CNM Service: ? Author Type: Laboratory Animal Caretaker Type: Progress Notes Filed: 10/05/2024 16:56 Note Text: MEKA- [facility] 10-05-2024 History of Presen t illness Narrative MEKA- documented in this encounter [facility] 10-05-2024 Miscellaneous Notes Formattin g of [...] discussed with the Patient or Patient's Authorized Iron Plastic Bullet Maker. As applicable, any other physician, advance practice provider, medical student, or other health professional student that will be observing or involved in the sensitive examination for educational or training purposes was discussed with the Patient or Authorized Iron Plastic Bullet Maker. The Patient or Authorized Iron Plastic Bullet Maker has agreed to proceed with the sensitive [...] Delfina Watson APRN.CNM documented in this encounter [facility] 10-05-2024 Instructions Karen Dimas MA - 10/05/2024 4:19 PM EDT SEQUENTIAL SCREENINGS The [facility] offers sequential screenings for women who [...] It will require an appointment with our sterilization technician. This is not an ultrasound performed [...] the above symptoms, contact our office at [phone] and ask to speak with a nurse. After hours, you can call doctors registry at [phone] OR call [facility] at [phone] and ask to have the doctor foreign exchange position clerk paged. If you consider this an emergency, dial 9-1-1 or go to your nearest emergency department. NEED HELP? Are you dealing with a violent or abusive relationship? Are you a victim of rape or sexual assult? Call [facility] ([place]) 24 hour Crisis Hotline: 197.437.2181 or 135-295-5183. MANUAL Your Guide to a Healthy manual is now on-line. Visit [email or web address] to download your free copy documented in this encounter [facility] 09-25-2024 Progress note Formatting of t his note might be different from the original. KJ - S: Amirah denies LOF or vaginal bleeding. She reports some irregular ctxs. O: 38w0d, see flow sheet SENSITIVE EXAM: The sensitive examination was discussed with the Patient or Patient's Authorized Iron Plastic Bullet Maker. As applicable, any other physician, advance practice provider, medical student, or other health professional student that will be observing or involved in the sensitive examination for educational or training purposes was discussed with the Patient or Authorized Iron Plastic Bullet Maker. The Patient or Authorized Iron Plastic Bullet Maker has agreed to proceed with the sensitive examination. (Sensitive examination includes inspection and/or palpation of the breasts, pelvis, prostate and anorectal regions). A/P: Assessment & Plan Supervision of high risk in third trimester (HCC) Orders: URINE OB DIP B/O 38 weeks gestation of (HCC) Orders: URINE OB DIP B/O Reviewed labor & FM precautions Janelle Marin MD [facility] 09-25-2024 Miscellaneous Notes Formattin g of this note might be different from the original. KJ - S: Amirah denies LOF or vaginal bleeding. She reports some irregular ctxs. O: 38w0d, see flow sheet SENSITIVE EXAM: The sensitive examination was discussed with the Patient or Patient's Authorized Iron Plastic Bullet Maker. As applicable, any other physician, advance practice provider, medical student, or other health professional student that will be observing or involved in the sensitive examination for educational or training purposes was discussed with the Patient or Authorized Iron Plastic Bullet Maker. The Patient or Authorized Iron Plastic Bullet Maker has agreed to proceed with the sensitive examination. (Sensitive examination includes inspection and/or palpation of the breasts, pelvis, prostate and anorectal regions). A/P: Assessment & Plan Supervision of high risk in third trimester (HCC) Orders: URINE OB DIP B/O 38 weeks gestation of (HCC) Orders: URINE OB DIP B/O Reviewed labor & FM precautions Janelle Marin MD documented in this encounter [facility] 09-25-2024 Instructions Cassie Abad MA - 09/25/2024 2:00 PM EDT SEQUENTIAL SCREENINGS The [facility] offers sequential screenings for women who [...] It will require an appointment with our sterilization technician. This is not an ultrasound performed [...] the above symptoms, contact our office at [phone] and ask to speak with a nurse. After hours, you can call [facility] at [phone] OR call [facility] at [phone] and ask to have the doctor foreign exchange position clerk paged. If you consider this an emergency, dial 9--1 or go to your nearest emergency department. NEED HELP? Are you dealing with a violent or abusive relationship? Are you a victim of rape or sexual assult? Call [facility] ([place]) 24 hour Crisis Hotline: 710.101.2673 or 589-127-5991. MANUAL Your Guide to a Healthy manual is now on-line. Visit [email or web address] [email or web address] to download your free copy documented in this encounter [facility] 09-18-2024 Progress note Formatting of t his note might be different from the original. SW- Pt doing well. No ctx, vb, lof. Good FM PE: Gen- NAD, well appearing Abd- Soft, gravid, NT See flowsheet A/p 37 wk gestation - GBS positive - Reviewed labor precautions - Weekly visits Alo Thompson DO [facility] 09-18-2024 Miscellaneous Notes Formattin g of this note might be different from the original. SW- Pt doing well. No ctx, vb, lof. Good FM PE: Gen- NAD, well appearing Abd- Soft, gravid, NT See flowsheet A/p 37 wk gestation - GBS positive - Reviewed labor precautions - Weekly visits Alo Thompson DO documented in this encounter [facility] 09-18-2024 Instructions Karen Dimas MA - 09/18/2024 1:22 PM EDT SEQUENTIAL SCREENINGS The [facility] offers sequential screenings for women who [...] It will require an appointment with our sterilization technician. This is not an ultrasound performed [...] the above symptoms, contact our office at [phone] and ask to speak with a nurse. After hours, you can call doctors registry at [phone] OR call [facility] at [phone] and ask to have the doctor foreign exchange position clerk paged. If you consider this an emergency, dial 9-1-7 or go to your nearest emergency department. NEED HELP? Are you dealing with a violent or abusive relationship? Are you a victim of rape or sexual assult? Call [facility] ([place]) 24 hour Crisis Hotline: 403.863.3178 or 220-146-2070. MANUAL Your Guide to a Healthy manual is now on-line. Visit [email or web address] to download your free copy documented in this encounter [facility] 09-12-2024 Note HNO ID: [id number] Author: CASTILLO MCKEON MD Service: ? Author Type: Physician Type: Progress Notes Filed: 09/12/2024 10:52 Note Text: RR- VB No. LOF No. CTXS some BH, crampy. no regular ctxs. Movement: present. Other c/o: heartburn not relived w/ tums Medication list reviewed. SENSITIVE EXAM: The sensitive examination was discussed with the Patient or Patient's Authorized Iron Plastic Bullet Maker. As applicable, any other physician, advance practice provider, medical student, or other health professional student that will be observing or involved in the sensitive examination for educational or training purposes was discussed with the Patient or Authorized Iron Plastic Bullet Maker. The Patient or Authorized Iron Plastic Bullet Maker has agreed to proceed with the sensitive [...] of high risk in third trimester ([facility]) Orders: URINE OB DIP B/O Obesity affecting in third trimester, unspecified obesity type ([facility]) Orders: URINE OB DIP B/O Heartburn during in third trimester ([facility]) rx pepcid reviewed urine dip. Brief US confirms vtx f/u 1 week or prn Castillo Mckeon M.D. [facility] 09-12-2024 History of Presen t illness Narrative RR- VB No. LOF No. CTXS some BH, crampy. no regular ctxs. Movement: present. Other c/o: heartburn not relived w/ tums Medication list reviewed. SENSITIVE EXAM: The sensitive examination was discussed with the Patient or Patient's Authorized Iron Plastic Bullet Maker. As applicable, any other physician, advance practice provider, medical student, or other health professional student that will be observing or involved in the sensitive examination for educational or training purposes was discussed with the Patient or Authorized Iron Plastic Bullet Maker. The Patient or Authorized Iron Plastic Bullet Maker has agreed to proceed with the sensitive [...] of high risk in third trimester ([facility]) Orders: URINE OB DIP B/O Obesity affecting in third trimester, unspecified obesity type ([facility]) Orders: URINE OB DIP B/O Heartburn during in third trimester ([facility]) rx pepcid reviewed urine dip. Brief US confirms vtx f/u 1 week or prn Castillo Mckeon M.D. documented in this encounter [facility] 09-12-2024 Instructions Leah Villaseñor MA - 09/12/2024 10:14 AM EDT SEQUENTIAL SCREENINGS The [facility] offers sequential screenings for women who [...] It will require an appointment with our sterilization technician. This is not an ultrasound performed [...] the above symptoms, contact our office at [phone] and ask to speak with a nurse. After hours, you can call doctors registry at [phone] OR call [facility] at [phone] and ask to have the doctor foreign exchange position clerk paged. If you consider this an emergency, dial 9-1-0 or go to your nearest emergency department. NEED HELP? Are you dealing with a violent or abusive relationship? Are you a victim of rape or sexual assult? Call [facility] ([place]) 24 hour Crisis Hotline: 164.417.9122 or 424-492-4358. MANUAL Your Guide to a Healthy manual is now on-line. Visit [email or web address] [email or web address] to download your free copy documented in this encounter [facility] 09-04-2024 Telephone encount er Note Noted. Thanks! Janelle Marin MD [facility] 09-04-2024 Miscellaneous Notes Formattin g of this note might be different from the original. Noted. Thanks! Janelle Marin MD Spoke with in ED. All work up normal. Patient D/Cd home. Delfina Watson APRN.CNM documented in this encounter [facility] 09-04-2024 Telephone encount er Note Spoke with in ED. All work up normal. Patient D/Cd home. Delfina Watson APRN.CNM [facility] 09-04-2024 Discharge summary [facility] 09-04-2024 Radiology Diagnostic study note [facility] Services [address] [place] [address] CTA Chest W/WO Contrast MR#: [id number] Acct: [id number] Name: AMIRAH WOODARD Rep #: [id number] : 2005 F 19 From: Gatito Moreno MD PCP: Dr. Ruiz Vega, DO Status: RE G ER Study:CTA Chest W/WO Contrast Date of Exam: 09/04/24 Exam# [id number] Ordering Dr: Raisa Richardson MD PROCEDURE: CTA [...] dissection No acute pulmonary process Reading Location: [id number] CC: Dr. Conrado Richardson MD; Dr. Ruiz Vega, DO ~ Personal Banking Assistant: Signed [facility] 09-04-2024 Telephone encounter Note Patient should be in ED at this time. No concern about urine dip. Janelle Marin MD [facility] 09-04-2024 Miscellaneous Notes Patient should be in ED at this time. No concern about urine dip. Janelle Marin MD documented in this encounter [facility] 09-04-2024 Progress note Formatting of t [...] Orders: URINE OB DIP B/O Patient to [facility] for eval of tachycardia and Shortness of Breath. No evidence labor. Janelle Marin MD [facility] 09-04-2024 Miscellaneous Notes KJ - S: Patient seen urgently for heart racing and Shortness of Breath that started this morning. Denies fevers/chils. Amirah denies LOF, contractions or vaginal bleeding. She reports stable cramps. O: 35w0d, see flow sheet SENSITIVE EXAM: Sensitive exam not performed. A/P: Assessment & Plan Supervision of high risk in third trimester ([facility]) Orders: URINE OB DIP B/O Obesity affecting in third trimester, unspecified obesity type ([facility]) Orders: URINE OB DIP B/O 35 weeks gestation of ([facility]) Orders: URINE OB DIP B/O Patient to [facility] for eval of tachycardia and Shortness of Breath. No evidence labor. Janelle Marin MD documented in this encounter [facility] 09-04-2024 Instructions Cassie Abad MA - 09/04/2024 9:30 AM EDT SEQUENTIAL SCREENINGS The [facility] offers sequential screenings for women who [...] It will require an appointment with our sterilization technician. This is not an ultrasound performed [...] the above symptoms, contact our office at [phone] and ask to speak with a nurse. After hours, you can call doctors registry at [phone] OR call [facility] at [phone] and ask to have the doctor foreign exchange position clerk paged. If you consider this an emergency, dial 9-1-6 or go to your nearest emergency department. NEED HELP? Are you dealing with a violent or abusive relationship? Are you a victim of rape or sexual assult? Call [facility] ([place]) 24 hour Crisis Hotline: 255.238.2608 or 692-849-2279. MANUAL Your Guide to a Healthy manual is now on-line. Visit [email or web address] See to download your free copy documented in this encounter [facility] 08-30-2024 Progress note Formatting of t his note might be different from the original. S: Amirah Woodard is a 19 year old female who presents at 34 weeks gestation for a routine visit. Positive movements. 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 Requesting to [...] GERRI with GBS La Del Castillo APRN.CNM [facility] Work Phone: 08-30-2024 Miscellaneous Notes S: Amirah Woodard is a 19 year old female who presents at 34 weeks gestation for a routine visit. Positive movements. 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 Requesting to [...] Del Castillo APRN.CNM documented in this encounter [facility] 08-30-2024 Instructions La Del Castillo APRN.CNM - 08/30/2024 2:46 PM EDT Images from the original note were not included. SEQUENTIAL SCREENINGS The [facility] offers sequential screenings for women who [...] It will require an appointment with our sterilization technician. This is not an ultrasound performed [...] an easy pie crust in the food photographer. Add soaked dates to homemade nut butter for a sweet treat. Add dates to casandra homemade salad dressing. Add dates during easily with these yummy (paleo friendly) bars made from dates. What Is Red Raspberry Lamont Tea? Red raspberry leaf tea comes from [...] , and too. How Much Red Raspberry Lamont Tea to Drink? With your doctor or medical tech s approval, start with 1 cup of [...] because of uterine cramping. Is Red Raspberry Lamont Tea the Same as Raspberry Lamont Tea? How About Plain Old Raspberry Tea? Sometimes. You really need to look at the ingredients to be sure. Note that there is no difference between red raspberry leaf and raspberry leaf. [employer] or [employer] Raspberry Lamont Tea are two good brands. The red [...] of RRLT outlined in this article. [employer] www.[employer] I named this 'circuit' after my friend [...] sideways, 2 at a time, (have a exhaust machine operator downstairs of you!), take a walk outside [...] the pelvis. Katey Harris: Circuit Creator - www.[employer] La[employer] Careundbirthcollective.[employer] Nicolette Heaton, LEONEL, BDT (MARIANN), LCCE, FACCE: Supporting Content - www.FinomialjazSnaapiqdayana.[employer] Lindsey Griffith: Photography - www.[employer]-S[employer] Meghna Green CD/CDT (NICHOLAS): Print and Cardiac Sonographer - www.[employer] Master[employer]s [employer] www.[employer] SIGNS AND SYMPTOMS OF LABOR 1. Contractions every 10 minutes or more often 2. Clear, pink, or brownish fluid (water) leaking from vagina 3. Feeling that baby is pushing down, pressure 4. Low, dull backache 5. Cramps that feel like a period 6. Cramps with or without diarrhea If you notice any of the above symptoms, contact our office at [phone] and ask to speak with a nurse. After hours, you can call doctors registry at [phone] OR call [facility] at [phone] and ask to have the doctor foreign exchange position clerk paged. If you consider this an emergency, dial 9-1-8 or go to your nearest emergency department. NEED HELP? Are you dealing with a violent or abusive relationship? Are you a victim of rape or sexual assult? Call [facility] ([place]) 24 hour Crisis Hotline: 640.237.2611 or 644-436-2843. MANUAL Your Guide to a Healthy manual is now on-line. Visit [email or web address] See to download your free copy documented in this encounter [facility] 08-16-2024 Progress note Formatting of t [...] of high risk in third trimester ([facility]) - ICD9: V23.9, ICD10: O09.93 (primary diagnosis) - Continue PNV and LDA 2. 32 weeks gestation of ([facility]) - ICD9: V22.2, ICD10: Z3A.32 - Discussed eye care professional, support band, gentle stretching for musculoskeletal pain - Discussed signs of Florin Tan - increase hydration 3. Obesity affecting in third trimester, unspecified obesity type ([facility]) - ICD9: 649.13, ICD10: O99.213 - Pre BMI 31 PTL precautions and kick counts reviewed. RTO in 2 weeks or sooner as needed. Lindsey Moreno APRN.WATERMASTER [facility] 08-16-2024 Miscellaneous Notes EH - S: [...] of high risk in third trimester ([facility]) - ICD9: V23.9, ICD10: O09.93 (primary diagnosis) - Continue PNV and LDA 2. 32 weeks gestation of ([facility]) - ICD9: V22.2, ICD10: Z3A.32 - Discussed eye care professional, support band, gentle stretching for musculoskeletal pain - Discussed signs of Florin Tan - increase hydration 3. Obesity affecting in third trimester, unspecified obesity type (HCC) - ICD9: 649.13, ICD10: O99.213 - Pre BMI 31 PTL precautions and kick counts reviewed. RTO in 2 weeks or sooner as needed. Lindsey Moreno APRN.WATERMASTER documented in this encounter [facility] 08-16-2024 Instructions Yumiko Meza MA - 08/16/2024 2:22 PM EDT SEQUENTIAL SCREENINGS The [facility] offers sequential screenings for women who [...] It will require an appointment with our sterilization technician. This is not an ultrasound performed [...] the above symptoms, contact our office at [phone] and ask to speak with a nurse. After hours, you can call doctors registry at [phone] OR call [facility] at [phone] and ask to have the doctor foreign exchange position clerk paged. If you consider this an emergency, dial or go to your nearest emergency department. NEED HELP? Are you dealing with a violent or abusive relationship? Are you a victim of rape or sexual assult? Call [facility] ([place]) 24 hour Crisis Hotline: [phone] or [phone]. MANUAL Your Guide to a Healthy manual is now on-line. Visit [email or web address] See to download your free copy documented in this encounter [facility] 08-13-2024 Note HNO ID: [id number] Author: RUIZ VEGA, DO Service: ? Author [...] Rhonda. - Planning a vaginal delivery at [place]. - Taking vitamins; denies nausea or emesis. 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 Recording using Vital Connect software for draft documentation of the visit was discussed with the patient/authorized loan servicing representative; all questions welcomed and answered. Patient/authorized loan servicing representative agreed to proceed [facility] 08-13-2024 History of Present illness Narrative Pennie Woodard is a 19-year-old female, 1 para 0, presenting for an initial visit and evaluation of -related symptoms. : - Currently 31-32 weeks gestation with a male fetus; ANA: October 09. - First . - care managed by Dr. Mckeon and team; next appointment scheduled with Lindsey and La. - Planning a vaginal delivery at [place]. - Taking vitamins; denies nausea or emesis. 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 Recording using V[employer] Connect software for draft documentation of the visit was discussed with the patient/authorized loan servicing representative; all questions welcomed and answered. Patient/authorized loan servicing representative agreed to proceed documented in this encounter [facility] 08-08-2024 Telephone encounter Note Order signed and faxed. Caroline Mora RN [facility] 08-08-2024 Miscellaneous Notes Order signed and faxed. Caroline Mora RN Breast pump request received from [employer]. Order to provider to sign. Caroline Mora RN documented in this encounter [facility] 08-06-2024 Telephone encounter Note Breast pump request received from [employer]. Order to provider to sign. Caroline Mora RN [facility] 08-03-2024 Telephone encounter Note 3rd risk assessment form submitted 08/03/24 Tio Hutchison RN [facility] 08-03-2024 Miscellaneous Notes 3rd risk assessment form submitted 08/03/24 Tio Hutchison RN documented in this encounter [facility] 08-01-2024 Progress note Formatting of t [...] unspecified seasonality, unspecified trigger Castillo Mckeon M.D. [facility] 08-01-2024 Miscellaneous Notes RR- VB No. [...] of high risk in third trimester ([facility]) Orders: COMPLETE BLOOD COUNT AND DIFFERENTIAL; Future [...] Castillo Mckeon M.D. documented in this encounter [facility] 07-20-2024 Note HNO ID: [id number] Author: LINDSEY MORENO APRN.WATERMASTER Service: ? Author Type: Nurse Practitioner Type: [...] of high risk in third trimester ([facility]) - ICD9: V23.9, ICD10: O09.93 (primary diagnosis) - Continue PNV and LDA 2. 28 weeks gestation of ([facility]) - ICD9: V22.2, ICD10: Z3A.28 - 1 hour GCT, CBC, and RPR today - Rh positive - Declines TDAP - LARC form reviewed and signed. Declines. - Depression screen negative - Opioid screen negative - plan form discussed and given to Amirah - Reviewed how to pre register through [facility] - Planning Paragard during period 3. Obesity affecting in third trimester, unspecified obesity type ([facility]) - ICD9: 649.13, ICD10: O99.213 - Pre BMI 32 4. Vaginal discharge during in third trimester ([facility]) - ICD9: 646.83, 623.5, ICD10: O26.893, N89.8 - BACTERIAL VAGINOSIS NAAT - FRANCO/TRICHOMONAS NAAT PTL precautions and kick counts reviewed. RTO in 2 weeks or sooner as needed. Lindsey Moreno APRN.WATERMASTER [facility] 07-20-2024 History of Present illness Narrative EH - S: Aimrah is a 18 year old female who presents at 28w3d for a routine visit. Feeling movement. Denies headache, visual changes, chest pain, shortness of breath, vaginal bleeding, leakage of fluid, or dysuria. Reports vaginal discharge O: See flow sheet Gen: No apparent distress Abd: Gravid, nontender, S=D ASSESSMENT/PLAN: 1. Supervision of high risk in third trimester ([facility]) - ICD9: V23.9, ICD10: O09.93 (primary diagnosis) [...] - Reviewed how to pre register through [facility] - Planning Paragard during period 3. Obesity affecting in third trimester, unspecified obesity type ([facility]) - ICD9: 649.13, ICD10: O99.213 - Pre BMI 32 4. Vaginal discharge during in third trimester ([facility]) - ICD9: 646.83, 623.5, ICD10: O26.893, N89.8 - BACTERIAL VAGINOSIS NAAT - FRANCO/TRICHOMONAS NAAT PTL precautions and kick counts reviewed. RTO in 2 weeks or sooner as needed. Lindsey Moreno APRN.WATERMASTER documented in this encounter [facility] 07-20-2024 Instructions Yumiko Meza MA - 07/20/2024 8:16 AM EDT SEQUENTIAL SCREENINGS The [facility] offers sequential screenings for women who [...] It will require an appointment with our sterilization technician. This is not an ultrasound performed [...] the above symptoms, contact our office at [phone] and ask to speak with a nurse. After hours, you can call doctors registry at [phone] OR call [facility] at [phone] and ask to have the doctor foreign exchange position clerk paged. If you consider this an emergency, dial 9-1-9 or go to your nearest emergency department. NEED HELP? Are you dealing with a violent or abusive relationship? Are you a victim of rape or sexual assult? Call [facility] ([place]) 24 hour Crisis Hotline: 685.448.8910 or 964-824-9916. MANUAL Your Guide to a Healthy manual is now on-line. Visit [email or web address] See to download your free copy documented in this encounter [facility] 07-19-2024 Telephone encounter Note noted. thanks. Castillo Mckeon MD [facility] Work Phone: 07-19-2024 Miscellaneous Notes noted. [...] Kia Sheldon, JIA documented in this encounter [facility] 07-19-2024 Telephone encounter Note 28w2d Patient [...] H&P faxed to L&D. Kia Sheldon, RN [facility] 07-09-2024 Telephone encounter Note agree [facility] Work Phone: 07-09-2024 Miscellaneous Notes agree documented in this encounter [facility] 06-21-2024 Progress note Formatting of t [...] before next visit La Del Castillo APRN.CNM [facility] 06-21-2024 Miscellaneous Notes S: Amirah Woodard [...] Del Castillo APRN.CNM documented in this encounter [facility] 06-21-2024 Instructions Srhee Santos MA - 06/21/2024 1:02 PM EDT SEQUENTIAL SCREENINGS The [facility] offers sequential screenings for women who [...] It will require an appointment with our sterilization technician. This is not an ultrasound performed [...] the above symptoms, contact our office at [phone] and ask to speak with a nurse. After hours, you can call [facility] registry at [phone] OR call [facility] at [phone] and ask to have the doctor foreign exchange position clerk paged. If you consider this an emergency, dial 11-05-0 or go to your nearest emergency department. NEED HELP? Are you dealing with a violent or abusive relationship? Are you a victim of rape or sexual assult? Call [facility] ([place]) 24 hour Crisis Hotline: 243.172.5384 or 962-242-7501. MANUAL Your Guide to a Healthy manual is now on-line. Visit [email or web address] See to download your free copy documented in this encounter [facility] 06-19-2024 Progress note Formatting of t [...] ANEMIA REFLEX PANEL; Future Obesity in ([facility]) Screening for diabetes mellitus Orders: GESTATIONAL GLUCOSE SCREEN, 1-HOUR, 50 GRAM, NON-FASTING; Future Advised on musculoskeletal pain in . Discussed if any CP/SOB should call immediately. Janelle Marin MD [facility] 06-19-2024 Miscellaneous Notes KJ - S: [...] ANEMIA REFLEX PANEL; Future Obesity in ([facility]) Screening for diabetes mellitus Orders: GESTATIONAL GLUCOSE SCREEN, 1-HOUR, 50 GRAM, NON-FASTING; Future Advised on musculoskeletal pain in . Discussed if any CP/SOB should call immediately. Janelle Marin MD documented in this encounter [facility] 06-19-2024 Instructions Yumiko Meza MA - 06/19/2024 2:34 PM EDT SEQUENTIAL SCREENINGS The [facility] offers sequential screenings for women who [...] It will require an appointment with our sterilization technician. This is not an ultrasound performed [...] the above symptoms, contact our office at [phone] and ask to speak with a nurse. After hours, you can call doctors registry at [phone] OR call [facility] at [phone] and ask to have the doctor foreign exchange position clerk paged. If you consider this an emergency, dial 9-- or go to your nearest emergency department. NEED HELP? Are you dealing with a violent or abusive relationship? Are you a victim of rape or sexual assult? Call [facility] ([place]) 24 hour Crisis Hotline: 916.444.9895 or 731-671-6855. MANUAL Your Guide to a Healthy manual is now on-line. Visit [email or web address] cyGuide to download your free copy documented in this encounter [facility] 06-06-2024 Progress note Formatting of t [...] scheduled OB visit La Del Castillo APRN.CNM [facility] 06-06-2024 Miscellaneous Notes S: Amirah Woodard [...] Del Castillo APRN.CNM documented in this encounter [facility] 06-06-2024 Shree Beltran MA - 06/06/2024 1:06 PM EDT SEQUENTIAL SCREENINGS The [facility] offers sequential screenings for women who [...] It will require an appointment with our sterilization technician. This is not an ultrasound performed [...] the above symptoms, contact our office at [phone] and ask to speak with a nurse. After hours, you can call doctors registry at [phone] OR call [facility] at [phone] and ask to have the doctor foreign exchange position clerk paged. If you consider this an emergency, dial 3-3-4 or go to your nearest emergency department. NEED HELP? Are you dealing with a violent or abusive relationship? Are you a victim of rape or sexual assult? Call [facility] ([place]) 24 hour Crisis Hotline: 651.595.7197 or 569-423-5913. MANUAL Your Guide to a Healthy manual is now on-line. Visit [email or web address] See to download your free copy documented in this encounter [facility] 06-06-2024 Telephone encounter Note 22w1d Patient [...] today and patient accepted. Vivian Adams RN [facility] 06-06-2024 Miscellaneous Notes 22w1d Patient called [...] Vivian Adams RN documented in this encounter [facility] 05-28-2024 Telephone encounter Note 2nd risk assessment form submitted 05/28/24 Tio Hutchison RN [facility] 05-28-2024 Miscellaneous Notes 2nd risk assessment form submitted 05/28/24 Tio Hutchison RN documented in this encounter [facility] 05-25-2024 Progress note Formatting of t [...] ICD9: V22.2, ICD10: Z3A.20 Kia Lucero MD [facility] 05-25-2024 Miscellaneous Notes S: Amirah Woodard [...] Kia Lucero MD documented in this encounter [facility] 05-25-2024 Instructions Cassie Abad MA - 05/25/2024 2:03 PM EDT SEQUENTIAL SCREENINGS The [facility] offers sequential screenings for women who [...] It will require an appointment with our sterilization technician. This is not an ultrasound performed [...] the above symptoms, contact our office at [phone] and ask to speak with a nurse. After hours, you can call doctors registry at [phone] OR call [facility] at [phone] and ask to have the doctor foreign exchange position clerk paged. If you consider this an emergency, dial 9-1-8 or go to your nearest emergency department. NEED HELP? Are you dealing with a violent or abusive relationship? Are you a victim of rape or sexual assult? Call [facility] ([place]) 24 hour Crisis Hotline: 485.362.1889 or 259-384-5203. MANUAL Your Guide to a Healthy manual is now on-line. Visit [email or web address] See to download your free copy documented in this encounter [facility] 05-01-2024 Telephone encounter Note Left message for patient to call office. Kia Sheldon RN [facility] 05-01-2024 Miscellaneous Notes Left message for patient to call office. Kia Sheldon, RN Noted & agree with recommendations. If patient has increased LOF tonight I recommend going to [facility]. Janelle Marin MD 17w0d Calling concerned [...] Vivian Adams RN documented in this encounter [facility] 05-01-2024 Telephone encounter Note Noted & agree with recommendations. If patient has increased LOF tonight I recommend going to [facility]. Janelle Marin MD [facility] Work Phone: 05-01-2024 Telephone encounter Note [...] with it. Please advise. Vivian Adams RN [facility] 04-27-2024 Progress note Formatting of [...] RTO in 4 weeks Delfina Watson APRN.CNM [facility] 04-27-2024 Miscellaneous Notes MEKA-S: Amirah [...] Delfina Watson APRN.CNM documented in this encounter [facility] 04-27-2024 Instructions Shree Santos MA - 04/27/2024 1:04 PM EST SEQUENTIAL SCREENINGS The [facility] offers sequential screenings for women who [...] It will require an appointment with our sterilization technician. This is not an ultrasound performed [...] the above symptoms, contact our office at [phone] and ask to speak with a nurse. After hours, you can call doctors registry at [phone] OR call [facility] at [phone] and ask to have the doctor foreign exchange position clerk paged. If you consider this an emergency, dial 9-1-1 or go to your nearest emergency department. NEED HELP? Are you dealing with a violent or abusive relationship? Are you a victim of rape or sexual assult? Call [facility] ([facility] 24 hour Crisis Hotline: 177.840.2853 or 896-156-8132. MANUAL Your Guide to a Healthy manual is now on-line. Visit [email or web address] See to download your free copy documented in this encounter [facility] 04-13-2024 Telephone encounter Note Patient notified and voiced understanding. Caroline Mora RN [facility] 04-13-2024 Miscellaneous Notes Patient notified and [...] Marisela Lopez RN documented in this encounter [facility] 04-13-2024 Telephone encounter Note Agree with plan of care. May try wearing compression stockings if on feet as well. This can help with blood flow back to to heart/head. La Del Castillo APRN.CNM [facility] Work Phone: 04-13-2024 Telephone encounter Note [...] until 04/27/24. Please advise. Marisela Lopez, RN [facility] 04-10-2024 Telephone encounter Note Refill provided. Has adult medicine appointment in August. Thanks. Josiane Goodwin APRN.WATERMASTER [facility] 04-10-2024 Miscellaneous Notes Refill provided. Has adult medicine appointment in August. Thanks. Josiane Goodwin APRN.WATERMASTER Last [facility]: 10/31/2023 Verify RX Benefits Completed [...] Eloisa Suarez LPN documented in this encounter [facility] 04-10-2024 Telephone encounter Note Last [facility]: 10/31/2023 Verify RX Benefits Completed Last [...] season) due on 11/06/2023 Eloisa Suarez LPN [facility] 04-03-2024 Progress note Formatting of [...] RTO in 4 weeks Delfina Watson APRN.CNM [facility] 04-03-2024 Miscellaneous Notes MEKAUrbanoS: Amirah Woodard [...] Delfina Watson APRN.CNM documented in this encounter [facility] 04-03-2024 Instructions Leah Villaseñor MA - 04/03/2024 3:53 PM EST SEQUENTIAL SCREENINGS The [facility] offers sequential screenings for women who [...] It will require an appointment with our sterilization technician. This is not an ultrasound performed [...] the above symptoms, contact our office at [phone] and ask to speak with a nurse. After hours, you can call doctors registry at [phone] OR call [facility] at [phone] and ask to have the doctor foreign exchange position clerk paged. If you consider this an emergency, dial 91- or go to your nearest emergency department. NEED HELP? Are you dealing with a violent or abusive relationship? Are you a victim of rape or sexual assult? Call [facility] ([place]) 24 hour Crisis Hotline: 678.297.1526 or 649-900-8167. MANUAL Your Guide to a Healthy manual is now on-line. Visit [email or web address] See to download your free copy documented in this encounter [facility] 03-28-2024 Progress note Formatting of t [...] culture collected and submitted. RTO 04/[address] [facility] Clinical yeast infection - tx monistat. Duncan Munguia MD [facility] Work Phone: 03-28-2024 Miscellaneous Notes Primigravida at 12 weeks c/o vaginal itching and burning subsequent to a course of amoxicillin for a sinus infection. Sx began 5 days after beginning tx. Denies vaginal bleeding and slightly increased discharge Pelvic exam. 12 week uterus. moderate clumpy white discharge. Yeast culture collected and submitted. RTO 04/[address] [facility] Clinical yeast infection - tx monistat. Duncan Munguia MD documented in this encounter [facility] 03-28-2024 Instructions Yumiko Meza MA - 03/28/2024 9:08 AM EST SEQUENTIAL SCREENINGS The [facility] offers sequential screenings for women who [...] It will require an appointment with our sterilization technician. This is not an ultrasound performed [...] the above symptoms, contact our office at [phone] and ask to speak with a nurse. After hours, you can call doctors registry at [phone] OR call [facility] at [phone] and ask to have the doctor foreign exchange position clerk paged. If you consider this an emergency, dial -7 or go to your nearest emergency department. NEED HELP? Are you dealing with a violent or abusive relationship? Are you a victim of rape or sexual assult? Call [facility] ([facility] 24 hour Crisis Hotline: 569.327.2728 or 993-844-6626. MANUAL Your Guide to a Healthy manual is now on-line. Visit [email or web address] to download your free copy documented in this encounter [facility] 03-22-2024 Telephone encounter Note Patient notified and voiced understanding. Caroline Mora RN [facility] 03-22-2024 Miscellaneous Notes Patient notified and voiced understanding. Caroline Mora RN Yes. La Del Castillo APRN.CNM Patient 11w2d calling with questions in regards to medication she was prescribed for a sinus infection. Patient was prescribed Amoxicillin 1000 mg BID. Patient wanting to know if that dosage is ok with . Caroline Mora RN documented in this encounter [facility] 03-22-2024 Telephone encounter Note Yes. La Del Castillo APRN.CNM [facility] Work Phone: 03-22-2024 Telephone encounter Note Patient 11w2d calling with questions in regards to medication she was prescribed for a sinus infection. Patient was prescribed Amoxicillin 1000 mg BID. Patient wanting to know if that dosage is ok with . Caroline Mora RN [facility] 03-19-2024 Note HNO ID: [id number] Author: JOSIANE GOODWIN APRN.WATERMASTER Service: ? Author Type: Nurse Practitioner Type: [...] provider while in office today. Josiane Goodwin APRN.[facility] 03-19-2024 History of Present illness Narrative [...] Josiane Goodwin APRN.JOSELYN documented in this encounter [facility] 03-13-2024 Note HNO ID: [id number] Author: ROBERTO POWERS PA-C Service: ? Author Type: Physician Lawn Care Technician Type: Progress Notes Filed: 03/13/2024 12:33 Note [...] the patient was advised to see her OTOLARYNGOLOGY PHYSICIAN for further evaluation and management. CLINICAL IMPRESSION: Sore Throat ASSESSMENT/PLAN: 1. Sore throat - ICD9: 462, ICD10: J02.9 - STREP A MOLECULAR (POC) Roberto Powers PA-C [facility] 03-13-2024 History of Present illness Narrative This note was created using [employer]. Subjective Amirah Woodard is a 18 year [...] the patient was advised to see her OTOLARYNGOLOGY PHYSICIAN for further evaluation and management. CLINICAL IMPRESSION: Sore Throat ASSESSMENT/PLAN: 1. Sore throat - ICD9: 462, ICD10: J02.9 - STREP A MOLECULAR (POC) Roberto Powers PA-C documented in this encounter [facility] 03-10-2024 Telephone encounter Note Reason for Call: 9 weeks , dizziness and felt like she would pass out, vision dark vomiting Denies fever Outcome: Patient warm conferenced to main campus roller die cutting machine operator to assist patient in connecting patient to foreign exchange position clerk provider for ELECTRIC TOOL REPAIRER Nilda Stiles BRAKE SHOE REBUILDER. [facility] 03-10-2024 Miscellaneous Notes Reason for Call: 9 weeks , dizziness and felt like she would pass out, vision dark vomiting Denies fever Outcome: Patient warm conferenced to main campus roller die cutting machine operator to assist patient in connecting patient to foreign exchange position clerk provider for ELECTRIC TOOL REPAIRER Nilda Martínezf BRAKE SHOE REBUILDER. documented in this encounter [facility] 02-23-2024 Telephone encounter Note 1st risk assessment form submitted 02/23/24. Pauline Au RN [facility] 02-23-2024 Miscellaneous Notes 1st risk assessment form submitted 02/23/24. Pauline Au RN documented in this encounter [facility] 02-16-2024 Note HNO ID: [id number] Author: NILDA STILES APRN.JOSELYN Service: ? Author Type: Nurse Practitioner Type: Progress Notes Filed: 02/21/2024 09:02 Note Text: Patient declined verify rep. INITIAL OB ASSESSMENT HPI: Amirah is a [...] (FLONASE) 50 mcg/actuation nasal spray Use 1 [place] in each nostril once daily. (Patient not [...] Impaired Vision, Ringing (more content not included)... [facility] 02-16-2024 History of Present illness Narrative Patient declined verify rep. INITIAL OB ASSESSMENT HPI: Amirah is a [...] (FLONASE) 50 mcg/actuation nasal spray Use 1 [place] in each nostril once daily. (Patient not [...] discussed with the Patient or Patient's Authorized Iron Plastic Bullet Maker. As applicable, any other physician, advance practice provider, medical student, or other health professional student that will be observing or involved in the sensitive examination for educational or training purposes was discussed with the Patient or Authorized Iron Plastic Bullet Maker. The Patient or Authorized Iron Plastic Bullet Maker has agreed to proceed with the sensitive [...] Your guide to a health and the School Bus Aide. Reviewed midwifery and rocket scientist services that are available. 2) Screening: Hemoglobin [...] Nilda Stiles APRN.CNP documented in this encounter [facility] 02-16-2024 Instructions Kelly Fields LPN - 02/16/2024 3:31 PM EST Please select the following link to access the [facility] Your Guide to a Healthy . [email or web address] Please select the following link to access the [facility] Your Guide to a Healthy . [email or web address] documented in this encounter [facility] 01-30-2024 Note HNO ID: [id number] Author: NILDA STILES APRN.WATERMASTER Service: ? Author Type: Nurse Practitioner Type: Progress Notes Filed: 01/30/2024 14:33 Note Text: Amirah Woodard is a 18 year old female who presents for problem visit testing, reported +hpt 01/27/2024, 01/03/2024. HPI: positive test- some cramping no bleeding LMP 01/03/24 OB History T0 L0 SAB0 IAB0 Ectopic0 Multiple0 Live Births0 Loss Prevention Analyst History LMP: 12/09/2023 (Exact Date), Having periods Age at Menarche: Age at First : Age at Menopause: Loss Prevention Analyst History Comments: Sexual Activity: Yes; Male Contraception: [...] (FLONASE) 50 mcg/actuation nasal spray Use 1 [place] in each nostril once daily. loratadine (CLARITIN) [...] NOB appt Review miscarriage precautions Nilda Stiles, BRAKE SHOE REBUILDER.WATERMASTER Medical Decision Making: Problems: Low: Acute, uncomplicated illness or injury Data: Unique test(s) ordered: 1 Risk: Low: Low risk from testing/treatment Medical Decision Making Level: 3 - Low [facility] 01-30-2024 History of Present illness Narrative Amirah Woodard is a 18 year old female who presents for problem visit testing, reported +hpt 01/27/2024, 01/03/2024. HPI: positive test- some cramping no bleeding LMP 01/03/24 OB History T0 L0 SAB0 IAB0 Ectopic0 Multiple0 Live Births0 Loss Prevention Analyst History LMP: 12/09/2023 (Exact Date), Having periods Age at Menarche: Age at First : Age at Menopause: Loss Prevention Analyst History Comments: Sexual Activity: Yes; Male Contraception: [...] (FLONASE) 50 mcg/actuation nasal spray Use 1 [place] in each nostril once daily. loratadine (CLARITIN) [...] Schedule NOB appt Review miscarriage precautions Nilda Stlies APRN.JOSELYN Medical Decision Making: Problems: Low: Acute, uncomplicated illness or injury Data: Unique test(s) ordered: 1 Risk: Low: Low risk from testing/treatment Medical Decision Making Level: 3 - Low documented in this encounter [facility] 12-15-2023 Telephone encounter Note Patient notified. [...] NILDA STILES Pharmacy Information Pharmacy Address Telephone [facility] [address] [place] [address] [facility] 12-15-2023 Miscellaneous Notes Patient notified. Vivian [...] NILDA STILES Pharmacy Information Pharmacy Address Telephone [facility] [address] [place] [address] Mycoplasma positive. Moxifloxacin x 7 days, then Doxy to follow x 7 days. Partner should be treated. Nilda Stiles APRN.CNP documented in this encounter [facility] 12-15-2023 Telephone encounter Note Mycoplasma positive. Moxifloxacin x 7 days, then Doxy to follow x 7 days. Partner should be treated. Nilda Stiles APRN.JOSELYN [facility] 12-12-2023 Note HNO ID: [id number] Author: NILDA STILES APRN.CNP Service: ? Author Type: Nurse Practitioner Type: Progress Notes Filed: 12/12/2023 16:43 Note Text: Patient declined verify rep. Amirah Woodard is a 18 year old [...] L0 SAB0 IAB0 Ectopic0 Multiple0 Live Births0 Loss Prevention Analyst History LMP: 10/08/2023 (Exact Date), Having periods Age at Menarche: Age at First : Age at Menopause: Loss Prevention Analyst History Comments: Sexual Activity: Yes; Male Contraception: [...] (FLONASE) 50 mcg/actuation nasal spray Use 1 [place] in each nostril once daily. loratadine (CLARITIN) [...] discussed with the Patient or Patient's Authorized Iron Plastic Bullet Maker. As applicable, any other physician, advance practice provider, medical student, or other health professional student that will be observing or involved in the sensitive examination for educational or training purposes was discussed with the Patient or Authorized Iron Plastic Bullet Maker. The Patient or Authorized Iron Plastic Bullet Maker has agreed to proceed with the sensitive examination. (Sensitive examination includes inspection and/or palpation of the breasts, pelvis, prostate and anorectal regions). EXAM: LMP 10/08/2023 GENERAL: pleasant, female in no apparent distress HEENT: Normocephalic, atraumatic, mucus membranes moist, and no lesions CHEST: Normal inspiratory effort PELVIC: external genitalia normal, normal Bartholin's glands, urethra, [place]'s glands, no vulvar lesions, no cervical lesions, [...] notify patient of test results. Nilda Stiles APRN.WATERMASTER Medical Decision Making: Problems: Moderate: New problem with uncertain prognosis Data: Unique test(s) ordered: 3+ Risk: Low: Low risk from testing/treatment Medical Decision Making Level: 4 - Moderate [facility] 12-12-2023 History of Present illness Narrative Patient declined verify rep. Amirah Woodard is a 18 year old [...] L0 SAB0 IAB0 Ectopic0 Multiple0 Live Births0 Loss Prevention Analyst History LMP: 10/08/2023 (Exact Date), Having periods Age at Menarche: Age at First : Age at Menopause: Loss Prevention Analyst History Comments: Sexual Activity: Yes; Male Contraception: [...] (FLONASE) 50 mcg/actuation nasal spray Use 1 [place] in each nostril once daily. loratadine (CLARITIN) [...] discussed with the Patient or Patient's Authorized Iron Plastic Bullet Maker. As applicable, any other physician, advance practice provider, medical student, or other health professional student that will be observing or involved in the sensitive examination for educational or training purposes was discussed with the Patient or Authorized Iron Plastic Bullet Maker. The Patient or Authorized Iron Plastic Bullet Maker has agreed to proceed with the sensitive examination. (Sensitive examination includes inspection and/or palpation of the breasts, pelvis, prostate and anorectal regions). EXAM: LMP 10/08/2023 GENERAL: pleasant, female in no apparent distress HEENT: Normocephalic, atraumatic, mucus membranes moist, and no lesions CHEST: Normal inspiratory effort PELVIC: external genitalia normal, normal Bartholin's glands, urethra, [place]'s glands, no vulvar lesions, no cervical lesions, [...] 4 - Moderate documented in this encounter [facility] 10-31-2023 Sommer Panchal PA-C - 10/31/2023 [...] drinks Go! Be healthy, inside and out! [email or web address] Adolescent to Adult Transition Program [facility] cares about helping you and each of our adolescents and young adults make a smooth transition to adult care. If your current doctor is a produce department manager, we will work with you to [...] your current doctor is in family medicine, [facility] will prepare you and your family [...] details. If joining our practice from outside [facility], we will help you request your [...] the use of evidence-driven strategies for health senior caregiver, youth, young adults, and their families. www.gottransition.org https://gottransition.org/resource /?aro-rqtwfr-oejswyd documented in this encounter [facility] 10-31-2023 Note HNO ID: [id number] Author: SOMMER HERNANDEZ PA-C Service: ? Author Type: Physician Lawn Care Technician Type: Progress Notes Filed: 11/04/2023 07:46 Note Text: WELL VISIT PEDIATRIC 18+ YRS OLD Amirah is a 18 year old who presents today for well exam. SUBJECTIVE CONCERNS: Yeast infection in vaginal area, scalp, belly button - completed 7 day course [place], RECOVERY COACH advised in office visit with them Allergy/Immunology [...] (FLONASE) 50 mcg/actuation nasal spray Use 1 [place] in each nostril once daily. loratadine (CLARITIN) [...] satisfactory Screening tools reviewed and discussed with patient/[id number]-9 and Social Determinants of Health. Please see [...] hard Transportation Ne (more content not included)... [facility] 10-31-2023 History of Present illness Narrative WELL VISIT PEDIATRIC 18+ YRS OLD Amirah is a 18 year old who presents today for well exam. SUBJECTIVE CONCERNS: Yeast infection in vaginal area, scalp, belly button - completed 7 day course [place], RECOVERY COACH advised in office visit with them Allergy/Immunology [...] (FLONASE) 50 mcg/actuation nasal spray Use 1 [place] in each nostril once daily. loratadine (CLARITIN) [...] satisfactory Screening tools reviewed and discussed with patient/[id number]-[id number]-1 and Social Determinants of Health. Please see [...] (Exact Date) BMI 30.80 kg/m Blood pressure %erci are not available for patients who are [...] and safety. - Dental care discussed. - Fobblers handout given (See Patient Instructions). - No immunizations were given at this visit. - Follow up in one year for routine physical. Sommer Hernandez PA-C documented in this encounter [facility] 10-28-2023 Telephone encounter Note The following approved medication requests have been transmitted electronically. Requested Prescriptions Pending Prescriptions Disp Refills albuterol HFA (PROVENTIL HFA, VENTOLIN HFA) 90 mcg/actuation inhaler 18 g 0 Sig: Inhale 2 Puffs as instructed every 4 hours as needed for wheezing/shortness of breath. Que Chavez MD [facility] 10-28-2023 Miscellaneous Notes The following approved [...] Antonina Morse RN documented in this encounter [facility] 10-28-2023 Telephone encounter Note Last WCC: [...] season) due on 11/05/2022 Antonina Morse RN [facility] 08-25-2023 History of Present illness Narrative Amirah Woodard is a 18 year old female who presents for problem visit burning with intercourse HPI: pt states that her previous symptoms are cleared up, but will have vaginal burning with intercourse and after. OB History T0 L0 SAB0 IAB0 Ectopic0 Multiple0 Live Births0 Loss Prevention Analyst History LMP: 07/04/2023 (Exact Date), Having periods Age at Menarche: Age at First : Age at Menopause: Loss Prevention Analyst History Comments: Sexual Activity: Yes; Male Contraception: [...] (FLONASE) 50 mcg/actuation nasal spray Use 1 [place] in each nostril once daily. albuterol HFA [...] 3 - Low documented in this encounter [facility] 08-21-2023 Instructions Alecia Mendez APRN.JOSELYN - [...] inability to swallow. documented in this encounter [facility] 08-21-2023 History of Present illness Narrative Subjective The history is provided by the patient. No special investigator was used. HPI Amirah Woodard is a 18 year old female who presents today for CC of sore throat and ever for one day. She is also having nasal congestion, and cough. She has used ibuprofen with short term relief. 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 BP 112/81 Pulse 104 Temp 36.4 C [...] Alecia Mendez APRN.JOSELYN documented in this encounter [facility] 08-02-2023 Telephone encounter Note BV positive. To treat with Flagyl 500mg PO BID for 7 days. 1) No alcohol during treatment and for 24 hours after last dose. 2) No intercourse during treatment. 3) Probiotic by mouth once daily for 30 days or as needed. I would also recommend using boric acid vaginal suppositories for 7 night. Nilda Stiles APRN.CNP [facility] 08-02-2023 Miscellaneous Notes BV positive. To [...] Nilda Stiles APRN.JOSELYN documented in this encounter [facility] 07-29-2023 Telephone encounter Note The following approved medication requests have been transmitted electronically. Requested Prescriptions Pending Prescriptions Disp Refills fluticasone (FLONASE) 50 mcg/actuation nasal spray 1 Each 3 Sig: Use 1 [place] in each nostril once daily. albuterol HFA (PROVENTIL HFA, VENTOLIN HFA) 90 mcg/actuation inhaler 18 g 0 Sig: Inhale 2 Puffs as instructed every 4 hours as needed for wheezing/shortness of breath. Que Chavez MD [facility] 07-29-2023 Miscellaneous Notes The following approved medication requests have been transmitted electronically. Requested Prescriptions Pending Prescriptions Disp Refills fluticasone (FLONASE) 50 mcg/actuation nasal spray 1 Each 3 Sig: Use 1 [place] in each nostril once daily. albuterol HFA (PROVENTIL HFA, VENTOLIN HFA) 90 mcg/actuation inhaler 18 g 0 Sig: Inhale 2 Puffs as instructed every 4 hours as needed for wheezing/shortness of breath. Que Chavez MD Last [facility]: 10/05/22 Verify RX Benefits Completed Last [...] Antonina Morse RN documented in this encounter [facility] 07-29-2023 Telephone encounter Note Refill request received via [employer]. Patient last seen in office on 07/11/23. Caroline Mora RN [facility] 07-29-2023 Miscellaneous Notes Refill request received via [employer]. Patient last seen in office on 07/11/23. Caroline Mora RN documented in this encounter [facility] 07-29-2023 Telephone encounter Note Last [facility]: 10/05/22 Verify RX Benefits Completed Last [...] Health Screening Never done Antonina Morse RN [facility] 07-29-2023 History of Present illness Narrative Sheet Turner offered: Patient declines. Amirah Woodard is a [...] external genitalia normal, normal Bartholin's glands, urethra, [place]'s glands, no vulvar lesions, no cervical lesions, [...] 4 - Moderate documented in this encounter [facility] 07-12-2023 Note Addended by: NILDA STILES on: 07/12/2023 02:21 PM Modules accepted: Orders [facility] 07-12-2023 Miscellaneous Notes Addended by: NILDA STILES on: 07/12/2023 02:21 PM Modules accepted: Orders BV positive. To treat with Flagyl 500mg PO BID for 7 days. 1) No alcohol during treatment and for 24 hours after last dose. 2) No intercourse during treatment. 3) Probiotic by mouth once daily for 30 days or as needed. Nilda Stiles APRN.CNP documented in this encounter [facility] 07-12-2023 Telephone encounter Note BV positive. To treat with Flagyl 500mg PO BID for 7 days. 1) No alcohol during treatment and for 24 hours after last dose. 2) No intercourse during treatment. 3) Probiotic by mouth once daily for 30 days or as needed. Nilda Stiles APRN.CNP [facility] 07-11-2023 History of Present illness Narrative Sheet Turner offered: Patient declines. Amirah Woodard is a [...] external genitalia normal, normal Bartholin's glands, urethra, [place]'s glands, no vulvar lesions, no cervical lesions, [...] 3 - Low documented in this encounter [facility] 06-29-2023 Telephone encounter Note The following approved medication requests have been transmitted electronically. Requested Prescriptions Pending Prescriptions Disp Refills albuterol HFA (PROVENTIL HFA, VENTOLIN HFA) 90 mcg/actuation inhaler 18 g 0 Sig: Inhale 2 Puffs as instructed every 4 hours as needed for wheezing/shortness of breath. Que Chavez MD [facility] 06-29-2023 Miscellaneous Notes The following approved medication requests have been transmitted electronically. Requested Prescriptions Pending Prescriptions Disp Refills albuterol HFA (PROVENTIL HFA, VENTOLIN HFA) 90 mcg/actuation inhaler 18 g 0 Sig: Inhale 2 Puffs as instructed every 4 hours as needed for wheezing/shortness of breath. Que Chavez MD documented in this encounter [facility] 06-24-2023 History of Present illness Narrative [...] Que Chavez MD documented in this encounter [facility] 05-16-2023 History of Present illness Narrative [...] Kia Lucero MD documented in this encounter [facility] 05-13-2023 Miscellaneous Notes Linked to appointment. Jody Hall RN Done Janelle Marin MD Patient is scheduled with today for IUD removal. Please file pending order to attach to her visit. Thank you. Kia Sheldon RN documented in this encounter [facility] 05-13-2023 History of Present illness Narrative [...] PATIENT PRESENTS WITH AN IMPLANTABLE OR ATTACHED MOLD PARTER: No RADIOLOGY DEPARTMENT: Ultrasound PERIPHERAL IV DATA: Not applicable SIGNED BY: Alla David RDMS May 13, 2023 8:31 AM documented in this encounter [facility] 05-03-2023 History of Present illness Narrative [...] L0 SAB0 IAB0 Ectopic0 Multiple0 Live Births0 Loss Prevention Analyst History LMP: 04/04/2023 (Exact Date), Having periods Age at Menarche: Age at First : Age at Menopause: Loss Prevention Analyst History Comments: Sexual Activity: Not Currently; Male [...] (FLONASE) 50 mcg/actuation nasal spray Use 1 [place] in each nostril once daily. (Patient taking differently: Use 1 [place] in each nostril once daily. 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 I have re-performed the HPI, Physical Examination, Assessment and Plan. Delfina Watson APRN.CNM documented in this encounter [facility] 11-12-2022 Miscellaneous Notes Please see pt's mychart message and further advise. Charis Crook LPN documented in this encounter [facility] 10-05-2022 Instructions Sommer Hernandez PA-C - [...] drinks Go! Be healthy, inside and out! [email or web address] Adolescent to Adult Transition Program [facility] cares about helping you and each of our adolescents and young adults make a smooth transition to adult care. If your current doctor is a produce department manager, we will work with you to [...] your current doctor is in family medicine, [facility] will prepare you and your family [...] details. If joining our practice from outside [facility], we will help you request your [...] the use of evidence-driven strategies for health senior caregiver, youth, young adults, and their families. www.gottransition.org https://gottransition.org/resource /?feu-ggilvv-azkcdje documented in this encounter [facility] 10-05-2022 History of Present illness Narrative [...] (FLONASE) 50 mcg/actuation nasal spray Use 1 [place] in each nostril once daily. (Patient taking differently: Use 1 [place] in each nostril once daily. PRN) Olopatadine [...] satisfactory Screening tools reviewed and discussed with patient/[id number]-[id number] and Social Determinants of Health. Please see [...] safety. - Dental care discussed. - Bright VFAs handout given (See Patient Instructions). - Patient was counseled [id number] by myself (the billing provider) for the following immunizations and vaccine components, including side effects: HPV. Patient consents for immunization and understands risks and benefits. A VIS sheet on each immunization was given to the patient. - Follow up in one year for routine physical. Sommer Hernandez PA-C documented in this encounter [facility] 07-15-2022 History of Present illness Narrative [...] (FLONASE) 50 mcg/actuation nasal spray Use 1 [place] in each nostril once daily. Olopatadine (PATADAY [...] 3 - Low documented in this encounter [facility] 07-12-2022 Miscellaneous Notes She can do a virtual visit since I've seen her this year. Nilda Stiles APRN.CNP Do you want patient to have an in person or virtual visit to discuss? documented in this encounter [facility] 05-27-2022 History of Present illness Narrative Patient presents with: Sore Throat: Cough, chest congestion, runny nose x4 days HPI: Feeling sick for 5 days. Her boyfriend is sick with cough and sore throat also. 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 Positive symptoms: Cough, Sore throat, Nasal Congestion, [...] (FLONASE) 50 mcg/actuation nasal spray Use 1 [place] in each nostril once daily. Olopatadine (PATADAY [...] Ramon Patrick MD documented in this encounter [facility] 05-10-2022 Miscellaneous Notes Voicemail and [employer] message to pt to offer sooner appt. Pt is currently scheduled for 05/17/22 for vaginal burning with intercourse. When pt calls the office please offer her time tomorrow to be seen. Charis Crook LPN documented in this encounter [facility] 05-07-2022 History of Present illness Narrative PEDIATRIC SICK VISIT SERVICE DATE: 04/18/2022 TEACHING PROVIDER (Physician/PA/BRAKE SHOE REBUILDER) NOTE OF PERSONAL INVOLVEMENT IN CARE: I have personally seen and examined the patient and performed the medical decision-making components. I have reviewed the Physician Lawn Care Technician (PA) Student's documentation and verified the findings in the note as written. Signature: Sommer Hernandez PA-C Date: 05/07/2022 Time: 9:01 AM This note was generated by a PA STUDENT working under the supervision of an Attending Physician Lawn Care Technician. As applicable, the findings, conclusions, and assessment of risk have been confirmed by a qualified provider. The note is NOT considered authenticated until addended and co-signed by the Attending Physician Lawn Care Technician at the beginning of this note. SUBJECTIVE: [...] contacts: No known sick contacts (works at long term) HISTORY: ACTIVE PROBLEM LIST Allergic Rhinitis - [...] (FLONASE) 50 mcg/actuation nasal spray Use 1 [place] in each nostril once daily. Olopatadine (PATADAY [...] TIME: 9:00 AM documented in this encounter [facility] 05-03-2022 Miscellaneous Notes Please have the patient make another appointment so that we can repeat the vaginal swabs to see if the infection has cleared. Nilda Stiles APRN.JOSELYN documented in this encounter [facility] [facility] Miscellaneous Notes Patient notified. States [...] Nilda Stiles APRN.CNP documented in this encounter [facility] 04-12-2022 History of Present illness Narrative [...] external genitalia normal, normal Bartholin's glands, urethra, [place]'s glands, no vulvar lesions, no cervical lesions, [...] 3 - Low documented in this encounter [facility] 04-09-2022 Miscellaneous Notes 1st attempt no answer, no voicemail. Called to R/S w/ [place] for 04/12. Kia Tijerina documented in this encounter [facility] 03-16-2022 History of Present illness Narrative [...] L0 SAB0 IAB0 Ectopic0 Multiple0 Live Births0 Loss Prevention Analyst History LMP: 03/04/2022, Having periods Age at Menarche: Age at First : Age at Menopause: Loss Prevention Analyst History Comments: Sexual Activity: Not Currently; Male [...] (FLONASE) 50 mcg/actuation nasal spray Use 1 [place] in each nostril once daily. Olopatadine (PATADAY [...] external genitalia normal, normal Bartholin's glands, urethra, [place]'s glands, no vulvar lesions, no cervical lesions, [...] 3 - Low documented in this encounter [facility] 01-18-2022 Instructions Alecia Mendez APRN.CNP - 01/18/2022 10:23 AM EST covid test ordered You will be notified in 12-24 hours, results available on [facility] Home isolation until covid results are back [...] inability to swallow. documented in this encounter [facility] 01-18-2022 History of Present illness Narrative Subjective The history is provided by the patient. No special investigator was used. HPI Amirah Woodard is a 16 year old female who presents today for CC of cough, congestion, sore throat and fever that started on Tuesday. She has use tylenol, and nyquil with short term relief. 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 BP 118/64 Pulse 112 Temp 36.5 C [...] in 24-48 hours with results, available on [employer] - COVID, FLU A/B + RSV, ROUTINE [...] Alecia Mendez APRN.JOSELYN documented in this encounter [facility] 10-28-2021 History of Present illness Narrative PEDIATRIC SICK VISIT SERVICE DATE: 10/28/2021 TEACHING PROVIDER (Physician/PA/CATRINA) NOTE OF PERSONAL INVOLVEMENT IN CARE: I have personally seen and examined the patient and performed the medical decision-making components. I have reviewed the Physician Lawn Care Technician (PA) Student's documentation and verified the findings in the note as written. Signature: Sommer Hernandez PA-C Date: 10/28/2021 Time: 9:59 AM This note was generated by a PA STUDENT working under the supervision of an Attending Physician Lawn Care Technician. As applicable, the findings, conclusions, and assessment of risk have been confirmed by a qualified provider. The note is NOT considered authenticated until addended and co-signed by the Attending Physician Lawn Care Technician at the beginning of this note. SUBJECTIVE: [...] (FLONASE) 50 mcg/actuation nasal spray Use 1 [place] in each nostril once daily. Olopatadine (PATADAY [...] TIME: 9:00 AM documented in this encounter [facility] 10-05-2021 Instructions Alecia Mendez APRN.WATERMASTER - 10/05/2021 1:02 PM EDT covid test ordered You will be notified in 24 -48 hours, [facility] until cov[facility] results [...] inability to swallow. documented in this encounter [facility] 10-05-2021 History of Present illness Narrative [...] in 24-48 hours with results, available on [employer] - COVID, FLU A/B + RSV, ROUTINE [...] Alecia Mendez APRN.JOSELYN documented in this encounter [facility] 07-13-2021 Instructions Que Chavez MD - [...] drinks Go! Be healthy, inside and out! www.[facility].org/5toGo Adolescent to Adult Transition Program [facility] cares about helping you and each of our adolescents and young adults make a smooth transition to adult care. If your current doctor is a produce department manager, we will work with you to [...] your current doctor is in family medicine, [facility] will prepare you and your family [...] details. If joining our practice from outside [facility], we will help you request your [...] the use of evidence-driven strategies for health senior caregiver, youth, young adults, and their families. www.gottransition.org https://[employer].org/resource /?uws-dccdsg-lydkymy Healthy Children Ages & Stages Texting Program HealthyChildren.org is an AAP ([place] [employer]) parenting website. It is [...] https://www.healthychildren.org/En natachash/tips-tools/HealthyChildren-T exting-Program/Pages/default.aspx documented in this encounter [facility] 07-13-2021 History of Present illness Narrative [...] (FLONASE) 50 mcg/actuation nasal spray Use 1 [place] in each nostril once daily. Olopatadine (PATADAY [...] No Screening tools reviewed and discussed with patient/yuyvxq-FOP-J and Social Determinants of Health. Please see [...] TIME: 9:00 AM documented in this encounter [facility] 06-12-2021 History of Present illness Narrative [...] TDAP VACCINE AGE 7+ IM MENINGOCOCCAL CONJUGATE [id number], IM She has had a partial response [...] 2021 TIME: 9:13 AM Parent/guardian was counseled [id number] by myself (the billing provider) for the following immunizations, including side effects: Menactra and TdaP. Parent/guardian consents for immunization and understands risks and benefits. A VIS sheet on each immunization was offered to the parent. SIGNATURE: Que Chavez MD PATIENT NAME: Amirah Woodard DATE: June 12, 2021 TIME: 9:29 AM documented in this encounter [facility] 06-12-2021 Instructions Que Chavez MD - [...] drinks Go! Be healthy, inside and out! www.[facility].org/5toGo documented in this encounter [facility] 08-09-2016 History of Past i llness Narrative Problem Noted Date Resolved Date Exercise-induced asthma with acute exacerbation 08/09/2016 06/12/2021 documented as of this encounter (statuses as of 06/12/2021) [facility] History of Past illness Narrative* Problem Noted Date Resolved Date Exercise-induced asthma with acute exacerbation 08/09/2016 06/12/2021 documented as of this encounter (statuses as of 07/13/2021) [facility] History of Past illness Narrative* Problem Noted Date Resolved Date Exercise-induced asthma with acute exacerbation 08/09/2016 06/12/2021 documented as of this encounter (statuses as of 09/18/2021) [facility] History of Past illness Narrative* Problem Noted Date Resolved Date Exercise-induced asthma with acute exacerbation 08/09/2016 06/12/2021 documented as of this encounter (statuses as of 10/05/2021) [facility] History of Past illness Narrative* Problem Noted Date Resolved Date Exercise-induced asthma with acute exacerbation 08/09/2016 06/12/2021 documented as of this encounter (statuses as of 10/28/2021) [facility] History of Past illness Narrative* Problem Noted Date Resolved Date Exercise-induced asthma with acute exacerbation 08/09/2016 06/12/2021 documented as of this encounter (statuses as of 12/28/2021) [facility] History of Past illness Narrative* Problem Noted Date Resolved Date Exercise-induced asthma with acute exacerbation 08/09/2016 06/12/2021 documented as of this encounter (statuses as of 01/18/2022) [facility] History of Past illness Narrative* Problem Noted Date Resolved Date Exercise-induced asthma with acute exacerbation 08/09/2016 06/12/2021 documented as of this encounter (statuses as of 03/16/2022) [facility] History of Past illness Narrative* Problem Noted Date Resolved Date Exercise-induced asthma with acute exacerbation 08/09/2016 06/12/2021 documented as of this encounter (statuses as of 04/09/2022) [facility] History of Past illness Narrative* Problem Noted Date Resolved Date Exercise-induced asthma with acute exacerbation 08/09/2016 06/12/2021 documented as of this encounter (statuses as of 04/12/2022) [facility] History of Past illness Narrative* Problem Noted Date Resolved Date Exercise-induced asthma with acute exacerbation 08/09/2016 06/12/2021 documented as of this encounter (statuses as of 04/13/2022) [facility] History of Past illness Narrative* Problem Noted Date Resolved Date Exercise-induced asthma with acute exacerbation 08/09/2016 06/12/2021 documented as of this encounter (statuses as of 05/03/2022) [facility] of Past illness Narrative* Problem Noted Date Resolved Date Exercise-induced asthma with acute exacerbation 08/09/2016 06/12/2021 documented as of this encounter (statuses as of 05/07/2022) [facility] of Past illness Narrative* Problem Noted Date Resolved Date Exercise-induced asthma with acute exacerbation 08/09/2016 06/12/2021 documented as of this encounter (statuses as of 05/11/2022) [facility] History of Past illness Narrative* Problem Noted Date Resolved Date Exercise-induced asthma with acute exacerbation 08/09/2016 06/12/2021 documented as of this encounter (statuses as of 05/27/2022) [facility] History of Past illness Narrative* Problem Noted Date Resolved Date Exercise-induced asthma with acute exacerbation 08/09/2016 06/12/2021 documented as of this encounter (statuses as of 07/13/2022) [facility] of Past illness Narrative* Problem Noted Date Resolved Date Exercise-induced asthma with acute exacerbation 08/09/2016 06/12/2021 documented as of this encounter (statuses as of 07/16/2022) [facility] of Past illness Narrative* Problem Noted Date Diagnosed Date Resolved Date Exercise-induced asthma with acute exacerbation 08/09/2016 06/12/2021 documented as of this encounter (statuses as of 10/06/2022) [facility] of Past illness Narrative* Problem Noted Date Diagnosed Date Resolved Date Exercise-induced asthma with acute exacerbation 08/09/2016 06/12/2021 documented as of this encounter (statuses as of 11/12/2022) [facility] of Past illness Narrative* Problem Noted Date Diagnosed Date Resolved Date Exercise-induced asthma with acute exacerbation 08/09/2016 06/12/2021 documented as of this encounter (statuses as of 04/28/2023) [facility] of Past illness Narrative* Problem Noted Date Diagnosed Date Resolved Date Exercise-induced asthma with acute exacerbation 08/09/2016 06/12/2021 documented as of this encounter (statuses as of 05/13/2023) [facility] of Past illness Narrative* Problem Noted Date Diagnosed Date Resolved Date Exercise-induced asthma with acute exacerbation 08/09/2016 06/12/2021 documented as of this encounter (statuses as of 05/14/2023) [facility] of Past illness Narrative* Problem Noted Date Diagnosed Date Resolved Date Exercise-induced asthma with acute exacerbation 08/09/2016 06/12/2021 documented as of this encounter (statuses as of 05/16/2023) [facility] of Past illness Narrative* Problem Noted Date Diagnosed Date Resolved Date Exercise-induced asthma with acute exacerbation 08/09/2016 06/12/2021 documented as of this encounter (statuses as of 05/18/2023) [facility] of Past illness Narrative* Problem Noted Date Diagnosed Date Resolved Date Exercise-induced asthma with acute exacerbation 08/09/2016 06/12/2021 documented as of this encounter (statuses as of 06/24/2023) [facility] Author Conrado Richardson [facility] Note Date/Time September 04, 2024 12:01 pm [facility] Medical Records Department [address] [place] [address] Emergency Department Summary 09/04/24 MR#: [id number] Acct: [id number] Name: AMIRAH WOODARD Rep #:[id number] : [...] discomfort that was diffuse. Lightheadedness. Saw her OTOLARYNGOLOGY PHYSICIAN in the office Dr. Adrienne Marin. Who [...] 10/04/23 Unknown Hist ory cell-Bifido 25 billion qpde-FTR-shdoo capsule albuterol sulfate 90 mcg/actuation inhalation 10/04/23 [...] the ankles bilaterally. Dorsi plantarflexion intact. Normal ultrasound supervisor strength. Normal radial pulses. Back nontender. Neurologically [...] Tylenol for pain. Outpatient follow-up with her OTOLARYNGOLOGY PHYSICIAN. History & Record Review Discussion w/independent historian: [...] 70.6 H Lymph % (Auto) 16.7 L Edwards % (Auto) 8.8 Eos % (Auto) 2.2 [...] dissection No acute pulmonary process Reading Location: [facility] Rhythm Strip Rhythm Strip: Sinus Tach Rate: 113 Ectopy: None EKG Initial EKG: Attestation: I personally reviewed and interpreted this EKG as follows: Interpretation: No Acute Injury Pattern and Sinus Tachycardia Comments: Sinus tachycardia rate of 113 no acute signs of UT or ischemia. Discharge Plan Triage Chief Complaint: Chest Pain ED Provider: Conrado Richardson Dx/Rx/DC Orders Clinical Impression: Chest pain, Third trimester Instructions: ED Chest Pain, Uncertain Cause Prescriptions: No Action albuterol sulfate 90 mcg/actuation HFA aerosol inhaler inhalation Lacto no.03-Nxbndh-OTI-larch 25B cell-25B cell-50 mg capsule PO One A Day Women's DHA 28 mg iron- 800 mcg combo pack PO Primary Care Provider: Ruiz Vega Referrals: Ruiz Vega DO [Primary Care Provider] - As Needed Janelle Marin MD [Med Staff - Active Staff] - As Needed Activity Restrictions/Additional Instructions: Follow-up your OTOLARYNGOLOGY PHYSICIAN and your primary care physician as needed. Your test today looked good. No signs of a blood clot or heart attack. Print Language: Estonian Disposition Disposition: Home, Self Care What to do if you have Problems For any increased pain, shortness of breath, bleeding, nausea or vomiting, chestpain, or any unexpected problems, contact your Primary Care Provider. Call [facility] ([phone]) or report to the closest Emergency Room. Call 911 if necessary. 09/04/24 1201 <Electronically signed by Conrado Richardson MD> Cosigner Signature (if applicable): CC: Dr. Ruiz Vega DO ~ Signed [facility] Work Phone: Evaluation note* Diagnosis Gastroesophageal reflux disease, unspecified whether esophagitis present- Primary Encounter for immunization Need for other specified prophylactic vaccination against single bacterial disease [facility] Encounter for WCC (well child check) with abnormal findings- Primary Gastroesophageal reflux disease, unspecified whether esophagitis present Allergic rhinitis, unspecified seasonality, unspecified trigger [facility] Diagnosis Pelvic pain in female- Primary Unspecified symptom associated with female genital organs [facility] Diagnosis Upper respiratory symptom- Primary Other symptoms involving respiratory system and chest Suspected COVID-19 virus infection [facility] Diagnosis Seasonal allergies- Primary Allergic rhinitis, cause unspecified [facility] Diagnosis Encounter for immunization- Primary Need for other specified prophylactic vaccination against single bacterial disease [facility] Diagnosis Acute cough- Primary Fever, unspecified fever cause Sore throat Acute pharyngitis URI with cough and congestion [facility] Diagnosis Pelvic pain in female- Primary Unspecified symptom associated with female genital organs Encounter for surveillance of contraceptive pills Surveillance of previously prescribed contraceptive pill [facility] Diagnosis Vaginal irritation- Primary Unspecified noninflammatory disorder of vagina [facility] Diagnosis Dysfunction of both eustachian tubes- Primary Dysfunction of Eustachian tube Seasonal allergies Allergic rhinitis, cause unspecified [facility] Diagnosis URI, acute- Primary Acute upper respiratory infections of unspecified site Wheezing [facility] Diagnosis Missed period- Primary Irregular menstrual cycle Encounter for other contraceptive management [facility] Diagnosis Encounter for wellness examination in adult- Primary Encounter for immunization Need for other specified prophylactic vaccination against single bacterial disease [facility] Diagnosis Malpositioned intrauterine device (IUD), initial encounter- Primary Encounter for IUD removal Encounter for removal of intrauterine contraceptive device [facility] Diagnosis Pelvic pain in female Unspecified symptom associated with female genital organs [facility] Diagnosis Encounter for IUD removal- Primary Encounter for removal of intrauterine contraceptive device Displacement of intrauterine contraceptive device, initial encounter Malpositioned intrauterine device (IUD), initial encounter [facility] Diagnosis Vaginal discharge- Primary Leukorrhea, not specified as infective Vaginal itching Pruritus of genital organs Pelvic pain in female Unspecified symptom associated with female genital organs [facility] Diagnosis Pes planus of both feet- Primary Pain in archer, unspecified laterality Acute upper respiratory infection Acute upper respiratory infections of unspecified site Mild intermittent asthma with (acute) exacerbation documented [facility]* Diagnosis Wheezing documented [facility]* Diagnosis Vaginal burning- Primary Other specified symptom associated with female genital organs [facility]* Diagnosis BV (bacterial vaginosis) Vaginitis and vulvovaginitis, unspecified [facility]* Diagnosis Wheezing [facility]* Diagnosis Vaginal discharge- Primary Leukorrhea, not specified as infective [facility]* Diagnosis Sore throat- Primary Acute pharyngitis Viral illness Unspecified viral infection, in conditions classified elsewhere and of unspecified site [facility]* Diagnosis Vaginal burning- Primary Other specified symptom associated with female genital organs [facility]* Diagnosis Wheezing [facility]* Diagnosis Wheezing [facility]* Diagnosis Encounter for wellness examination in adult- Primary Mild intermittent asthma with (acute) exacerbation Seborrhea Adverse food reaction, initial encounter [facility]* Diagnosis Vaginal discharge- Primary Leukorrhea, not specified as infective Vaginal irritation Unspecified noninflammatory disorder of vagina Family history of thyroid disorder Family history of other endocrine and metabolic diseases [facility] encounter [facility]* Diagnosis Encounter for test, result positive- Primary examination or test, positive result [facility]* Diagnosis Encounter for care in first trimester of first - Primary 7 weeks gestation of state, incidental Vaginal irritation Unspecified noninflammatory disorder of vagina BMI 32.0-32.9,adult Body Mass Index 32.0-32.9, adult Supervision of normal first teen in first trimester documented [facility] encounter [facility]* Diagnosis Sore throat- Primary Acute pharyngitis [facility] Diagnosis Acute non-recurrent frontal sinusitis- Primary documented in this encounter [facility] note* Diagnosis Vaginal irritation- Primary Unspecified noninflammatory disorder of vagina Vaginal discharge Leukorrhea, not specified as infective Encounter for care in first trimester of first 12 weeks gestation of state, incidental [facility] Diagnosis Supervision of normal first teen in first trimester- Primary 13 weeks gestation of state, incidental Obesity in Obesity complicating , childbirth, or the puerperium, unspecified as to episode of care or not applicable [facility]* Diagnosis Encounter for screening for malformation using ultrasound- Primary 13 weeks gestation of state, incidental documented in this encounter [facility] note* Diagnosis Wheezing documented [facility] encounter [facility]* Diagnosis Supervision of normal first teen in second trimester- Primary Obesity in Obesity complicating , childbirth, or the puerperium, unspecified as to episode of care or not applicable 16 weeks gestation of state, incidental Dizziness Dizziness and giddiness [facility] note* Diagnosis Supervision of normal first teen in second trimester- Primary Obesity in Obesity complicating , childbirth, or the puerperium, unspecified as to episode of care or not applicable 20 weeks gestation of state, incidental documented in this encounter [facility] note* Diagnosis Obesity in - Primary Obesity complicating , childbirth, or the puerperium, unspecified as to episode of care or not applicable Supervision of normal first teen in first trimester 13 weeks gestation of state, incidental [facility] [place] Diagnosis Obesity in (HCC)- Primary Obesity complicating , childbirth, or the puerperium, unspecified as to episode of care or not applicable Supervision of normal first teen in second trimester (HCC) 22 weeks gestation of (HCC) state, incidental Cramping affecting , antepartum (HCC) documented in this encounter [facility] note* Diagnosis 24 weeks gestation of (HCC)- Primary state, incidental Obesity in (HCC) Obesity complicating , childbirth, or the puerperium, unspecified as to episode of care or not applicable Screening for diabetes mellitus * Assessment & Plan Note - Janelle Marin MD - 06/19/2024 2:51 PM EDTAssociated Problem(s): Obesity in (HCC) documented in this encounter [facility] note* Diagnosis 24 weeks gestation of [...] normal first teen in second trimester ([facility]) Decreased movements in second trimester, single or unspecified fetus ([facility]) documented in this encounter [facility] note* Diagnosis 24 weeks gestation of (HCC)- Primary state, incidental Obesity in (HCC) Obesity complicating , childbirth, or the puerperium, unspecified as to episode of care or not applicable Screening for diabetes mellitus Supervision of high risk in third trimester ([facility])- Primary Unspecified high-risk 28 weeks gestation of ([facility]) state, incidental Obesity affecting in third trimester, unspecified obesity type ([facility]) Vaginal discharge during in third trimester ([facility]) documented in this encounter [facility] note* Diagnosis 24 weeks gestation of (HCC)- Primary state, incidental Obesity in (HCC) Obesity complicating , childbirth, or the puerperium, unspecified as to episode of care or not applicable Screening for diabetes mellitus Supervision of high risk in third trimester ([facility])- Primary Unspecified high-risk 30 weeks gestation of ([facility]) state, incidental Rash Rash and other nonspecific skin eruption Other obesity due to excess calories affecting , antepartum ([facility]) Allergic rhinitis, unspecified seasonality, unspecified trigger * Assessment & Plan Note - Castillo Mckeon MD - 08/01/2024 9:51 AM EDT Associated Problem(s): Supervision of high risk in third trimester ([facility]) Orders: COMPLETE BLOOD COUNT AND DIFFERENTIAL; Future COMPREHENSIVE METABOLIC PANEL; Future BILE ACIDS, TOTAL; Future * Assessment & Plan Note - Castillo Mckeon MD - 08/01/2024 9:51 AM EDT Associated Problem(s): Allergic rhinitis documented in this encounter [facility] Diagnosis 24 weeks gestation of ([facility])- Primary state, incidental Obesity in ([facility]) Obesity complicating , childbirth, or the puerperium, unspecified as to episode of care or not applicable Screening for diabetes mellitus Supervision of high risk in third trimester ([facility])- Primary Unspecified high-risk 30 weeks gestation of ([facility]) state, incidental Rash Rash and other nonspecific skin eruption Other obesity due to excess calories affecting , antepartum ([facility]) Allergic rhinitis, unspecified seasonality, unspecified trigger Well adult exam- Primary Routine general medical examination at a health care facility 31 weeks gestation of ([facility]) state, incidental Class 2 obesity with body mass index (BMI) of 35.0 to 35.9 in adult, unspecified obesity type, unspecified whether serious comorbidity present Gastroesophageal reflux disease without esophagitis Esophageal reflux documented in this encounter [facility]* Diagnosis 24 weeks gestation of (HCC)- Primary state, incidental Obesity in ([facility]) Obesity complicating , childbirth, or the puerperium, unspecified as to episode of care or not applicable Screening for diabetes mellitus Supervision of high risk in third trimester ([facility])- Primary Unspecified high-risk 30 weeks gestation of ([facility]) state, incidental Rash Rash and other nonspecific skin eruption Other obesity due to excess calories affecting , antepartum ([facility]) Allergic rhinitis, unspecified seasonality, unspecified trigger Supervision of high risk in third trimester (HCC)- Primary Unspecified high-risk 32 weeks gestation of (HCC) state, incidental Obesity affecting in third trimester, unspecified obesity type (HCC) documented in this encounter [facility] note* Diagnosis 24 weeks gestation of [...] (HCC) state, incidental documented in this encounter [facility] noteNo assessment information availableWDiley [facility] Work Phone: Evaluation note* Diagnosis [...] OB DIP B/O documented in this encounter [facility]* Diagnosis 24 weeks gestation of [...] to excess calories affecting , antepartum ([facility]) Allergic rhinitis, unspecified seasonality, unspecified trigger Supervision [...] (HCC) rx pepcid documented in this encounter [facility] note* Diagnosis 24 weeks gestation of (HCC)- Primary state, incidental Obesity in ([facility]) Obesity complicating , childbirth, or the puerperium, unspecified as to episode of care or not applicable Screening for diabetes mellitus Supervision of high risk in third trimester ([facility])- Primary Unspecified high-risk 30 weeks gestation of ([facility]) state, incidental Rash Rash and other nonspecific skin eruption Other obesity due to excess calories affecting , antepartum ([facility]) Allergic rhinitis, unspecified seasonality, unspecified trigger Supervision of high risk in third trimester ([facility])- Primary Unspecified high-risk Obesity affecting in third trimester, unspecified obesity type ([facility]) 35 weeks gestation of ([facility]) state, incidental 36 weeks gestation of ([facility])- Primary state, incidental Supervision of high risk in third trimester ([facility]) Unspecified high-risk Obesity affecting in third trimester, unspecified obesity type ([facility]) Heartburn during in third trimester ([facility]) Supervision of high risk in third trimester ([facility])- Primary Unspecified high-risk 37 weeks gestation of ([facility]) state, incidental Positive GBS test documented in this encounter [facility] note* Diagnosis 24 weeks gestation of (HCC)- Primary state, incidental Obesity in ([facility]) Obesity complicating , childbirth, or the puerperium, unspecified as to episode of care or not applicable Screening for diabetes mellitus Supervision of high risk in third trimester ([facility])- Primary Unspecified high-risk 30 weeks gestation of ([facility]) state, incidental Rash Rash and other nonspecific skin eruption Other obesity due to excess calories affecting , antepartum ([facility]) Allergic rhinitis, unspecified seasonality, unspecified trigger Supervision of high risk in third trimester ([facility])- Primary Unspecified high-risk Obesity affecting in third trimester, unspecified obesity type (HCC) 35 weeks gestation of ([facility]) state, incidental 36 weeks gestation of (HCC)- [...] OB DIP B/O documented in this encounter [facility]* Diagnosis 24 weeks gestation of [...] to excess calories affecting , antepartum ([facility]) Allergic rhinitis, unspecified seasonality, unspecified trigger Supervision [...] trimester (HCC) Unspecified high-risk Obesity in ([facility]) Obesity complicating , childbirth, or the puerperium, unspecified as to episode of care or not applicable Positive GBS test documented in this encounter [facility] Discharge instructionsAdditional Instructions Follow-up your OTOLARYNGOLOGY PHYSICIAN and your primary care physician as needed. Your test today looked good. No signs of a blood clot or heart attack.[facility] Work Phone: Reason for referral (narrative)* Outpatient Procedure (Routine) - Pending Review Specialty Diagnoses / Procedures Referred By Lance t Referred To Contact [facility] [place] 2] Diagnoses Malpositioned intrauterine device (IUD), initial encounter Encounter for IUD removal Procedures REMOVE INTRAUTERINE DEVICE REMOVE INTRAUTERINE DEVICE Janelle Marin MD [address] [place] [address] [facility] [address] [place] [address] Referral ID Status Reason Start Date Expiration Date Visits Requested Visits Authorized [id number] Pending Review Auto-Generat ed Referral 05/13/2023 05/12/2024 1 1 [facility] for referral (narrative)* Diagnostic Procedure Only (Routine) - Closed Specialty Diagnoses / Procedures Referred By Contac t Referred To Contact [facility] Diagnoses Pelvic pain in female Procedures US FEMALE PELVIS TRANSVAG US TRANSVAGINAL Delfina Watson APRN.CNM [address] [place] [address] [place] [address] Referral ID Status Reason Start Date Expiration Date V isits Requested Visits Authorized [id number] Closed Auto-Generate d Referral 05/03/2023 06/01/2024 1 1 [facility] for referral (narrative)* Diagnostic Procedure Only (Routine) - Closed Specialty Diagnoses / Procedures Referred By Contac t Referred To Contact [facility] Diagnoses Pelvic pain in female Procedures US FEMALE PELVIS TRANSVAG US TRANSVAGINAL Delfina Watson APRN.CNM [address] [place] [address] [place] [address] Referral ID Status Reason Start Date Expiration Date V isits Requested Visits Authorized [id number] Closed Auto-Generate d Referral 05/03/2023 06/01/2024 1 1 [facility] for referral (narrative)* Diagnostic Procedure Only (Routine) - Authorized Specialty Diagnoses / Procedures Referred By Contac t Referred To Contact [facility] [place] 2] Diagnoses Encounter for care in first trimester of first 7 weeks gestation of Procedures NUCHAL TRANSLUCENCY WHI US NUCHAL TRANSLUCENCY 1ST GESTATION Nilda Stiles APRN.CNP [address] [place] [address] [place] [id number] Referral ID Status Reason Start Date Expiration Date Visits Requested Visits Authorized [id number] Authorized Auto-Generat ed Referral 02/20/2025 1 1 [facility] for referral (narrative)* Diagnostic Procedure Only (Routine) - Authorized Specialty Diagnoses / Procedures Referred By Contac t Referred To Contact [facility] [place]] Diagnoses Supervision of normal first teen in first trimester 13 weeks gestation of Obesity in Procedures OBSTETRIC ULTRASOUND WHI US PREG UTERUS AFTER 1ST TRIMEST GESTATION Delfina Watson APRN.CNM [address] [place] [address] [facility] [address] [place] [address] Referral ID Status Reason Start Date Expiration Date Visits Requested Visits Authorized [id number] Authorized Auto-Generat ed Referral 04/03/2024 04/03/2025 1 1 [facility] for referral (narrative)No reason for referral information availableWDiley Ridge Medical Center Work Phone: Reason for visit Narrative* Outpatient Procedure (Routine) - Authorized Specialty Diagnoses / Procedures Referred By Contac t Referred To Contact [facility] [place]NOTE 2] Diagnoses Malpositioned intrauterine device (IUD), initial encounter Encounter for IUD removal Procedures REMOVE INTRAUTERINE DEVICE REMOVE INTRAUTERINE DEVICE Janelle Marin MD [address] [place] [address] [facility] [address] [place] [address] Referral ID Status Reason Start Date Expiration Date Visits Requested Visits Authorized [id number] Authorized Auto-Generat ed Referral 05/16/2023 03/06/2024 2 2 [facility] Health Concerns Infection Onset Date Last Indicated Resolved Time COVID-19 Rule-Out 10/05/2021 10/05/2021 Infection Onset Date Last Indicated Resolved Time COVID-19 Rule-Out 01/18/2022 01/18/2022 Reason for Referral Specialty Diagnoses / Procedures Referred By Contac t Referred To Contact Diagnoses Ramon Chinchilla MD [address] [place] [address] Referral ID Status Reason Start Date Expiration Date Visits Re quested Visits Authorized [id number] Closed 1 1 Specialty Diagnoses / Procedures Referred By Contac t Referred To Contact Diagnoses BV (bacterial vaginosis) Nilda Stiles APRN.[employer] [address] [place] [address] Referral ID Status Reason Start Date Expiration Date Visits Re quested Visits Authorized [id number] Closed 1 1 Specialty Diagnoses / Procedures Referred By Contac t Referred To Contact Allergy Diagnoses Adverse food reaction, initial encounter Procedures CONSULT TO ALLERGY/IMMUNOLOGY OFFICE/OUTPATIENT [facility] 60 MINUTES Sommer Hernandez PA-C [address] [place] [address] Referral ID Status Reason Start Date Expiration Date Visits Requested Visits Authorized [id number] Authorized PCP Requested Referral 10/31/2023 10/30/2024 1 1 Chief Complaint and Reason for Visit Chief Complaint Admit Date SOB September 04, 2024 10:11 am Chief Complaint Admit Date SOB September 04, 2024 10:11 am RULE OUT [employer]OR October 12, 2024 11: 20pm Advance Directives Advance Directive Response Recorded Date/ Time Do you have a Healthcare Power of Business Development Coordinator? No September 04, 2024 10:30am Summary Purpose [...] or prosecute any alcohol or drug abuse patient.[facility] HospitalIn the event this information is protected by the Federal Confidentiality of Alcohol and Drug Abuse Patient Records regulations: The Federal rules restrict any use of the information to criminally investigate or prosecute any alcohol or drug abuse patient.[facility] HospitalIn the event this information is protected by the Federal Confidentiality of Alcohol and Drug Abuse Patient Records regulations: The Federal rules restrict any use of the information to criminally investigate or prosecute any alcohol or drug abuse patient.[facility] HospitalIn the event this information is protected by the Federal Confidentiality of Alcohol and Drug Abuse Patient Records regulations: The Federal rules restrict any use of the information to criminally investigate or prosecute any alcohol or drug abuse patient.[facility] HospitalIn the event this information is protected by the Federal Confidentiality of Alcohol and Drug Abuse Patient Records regulations: The Federal rules restrict any use of the information to criminally investigate or prosecute any alcohol or drug abuse patient.[facility] HospitalIn the event this information is protected by the Federal Confidentiality of Alcohol and Drug Abuse Patient Records regulations: The Federal rules restrict any use of the information to criminally investigate or prosecute any alcohol or drug abuse patient.[facility] HospitalIn the event this information is protected by the Federal Confidentiality of Alcohol and Drug Abuse Patient Records regulations: The Federal rules restrict any use of the information to criminally investigate or prosecute any alcohol or drug abuse patient.[facility] HospitalIn the event this information is protected by the Federal Confidentiality of Alcohol and Drug Abuse Patient Records regulations: The Federal rules restrict any use of the information to criminally investigate or prosecute any alcohol or drug abuse patient.[facility] HospitalIn the event this information is protected by the Federal Confidentiality of Alcohol and Drug Abuse Patient Records regulations: The Federal rules restrict any use of the information to criminally investigate or prosecute any alcohol or drug abuse patient.[facility] HospitalIn the event this information is protected by the Federal Confidentiality of Alcohol and Drug Abuse Patient Records regulations: The Federal rules restrict any use of the information to criminally investigate or prosecute any alcohol or drug abuse patient.[facility] HospitalIn the event this information is protected by the Federal Confidentiality of Alcohol and Drug Abuse Patient Records regulations: The Federal rules restrict any use of the information to criminally investigate or prosecute any alcohol or drug abuse patient.[facility] HospitalIn the event this information is protected by the Federal Confidentiality of Alcohol and Drug Abuse Patient Records regulations: The Federal rules restrict any use of the information to criminally investigate or prosecute any alcohol or drug abuse patient.[facility] HospitalIn the event this information is protected by the Federal Confidentiality of Alcohol and Drug Abuse Patient Records regulations: The Federal rules restrict any use of the information to criminally investigate or prosecute any alcohol or drug abuse patient.[facility] HospitalIn the event this information is protected by the Federal Confidentiality of Alcohol and Drug Abuse Patient Records regulations: The Federal rules restrict any use of the information to criminally investigate or prosecute any alcohol or drug abuse patient.[facility] HospitalIn the event this information is protected by the Federal Confidentiality of Alcohol and Drug Abuse Patient Records regulations: The Federal rules restrict any use of the information to criminally investigate or prosecute any alcohol or drug abuse patient.[facility] HospitalIn the event this information is protected by the Federal Confidentiality of Alcohol and Drug Abuse Patient Records regulations: The Federal rules restrict any use of the information to criminally investigate or prosecute any alcohol or drug abuse patient.[facility] HospitalIn the event this information is protected by the Federal Confidentiality of Alcohol and Drug Abuse Patient Records regulations: The Federal rules restrict any use of the information to criminally investigate or prosecute any alcohol or drug abuse patient.[facility] HospitalIn the event this information is protected by the Federal Confidentiality of Alcohol and Drug Abuse Patient Records regulations: The Federal rules restrict any use of the information to criminally investigate or prosecute any alcohol or drug abuse patient.[facility] HospitalIn the event this information is protected by the Federal Confidentiality of Alcohol and Drug Abuse Patient Records regulations: The Federal rules restrict any use of the information to criminally investigate or prosecute any alcohol or drug abuse patient.[facility] HospitalIn the event this information is protected by the Federal Confidentiality of Alcohol and Drug Abuse Patient Records regulations: The Federal rules restrict any use of the information to criminally investigate or prosecute any alcohol or drug abuse patient.[facility] HospitalIn the event this information is protected by the Federal Confidentiality of Alcohol and Drug Abuse Patient Records regulations: The Federal rules restrict any use of the information to criminally investigate or prosecute any alcohol or drug abuse patient.[facility] HospitalIn the event this information is protected by the Federal Confidentiality of Alcohol and Drug Abuse Patient Records regulations: The Federal rules restrict any use of the information to criminally investigate or prosecute any alcohol or drug abuse patient.[facility] HospitalIn the event this information is protected by the Federal Confidentiality of Alcohol and Drug Abuse Patient Records regulations: The Federal rules restrict any use of the information to criminally investigate or prosecute any alcohol or drug abuse patient.[facility] HospitalIn the event this information is protected by the Federal Confidentiality of Alcohol and Drug Abuse Patient Records regulations: The Federal rules restrict any use of the information to criminally investigate or prosecute any alcohol or drug abuse patient.[facility] HospitalIn the event this information is protected by the Federal Confidentiality of Alcohol and Drug Abuse Patient Records regulations: The Federal rules restrict any use of the information to criminally investigate or prosecute any alcohol or drug abuse patient.[facility] HospitalIn the event this information is protected by the Federal Confidentiality of Alcohol and Drug Abuse Patient Records regulations: The Federal rules restrict any use of the information to criminally investigate or prosecute any alcohol or drug abuse patient.[facility] HospitalIn the event this information is protected by the Federal Confidentiality of Alcohol and Drug Abuse Patient Records regulations: The Federal rules restrict any use of the information to criminally investigate or prosecute any alcohol or drug abuse patient.[facility] HospitalIn the event this information is protected by the Federal Confidentiality of Alcohol and Drug Abuse Patient Records regulations: The Federal rules restrict any use of the information to criminally investigate or prosecute any alcohol or drug abuse patient.[facility] HospitalIn the event this information is protected by the Federal Confidentiality of Alcohol and Drug Abuse Patient Records regulations: The Federal rules restrict any use of the information to criminally investigate or prosecute any alcohol or drug abuse patient.[facility] HospitalIn the event this information is protected by the Federal Confidentiality of Alcohol and Drug Abuse Patient Records regulations: The Federal rules restrict any use of the information to criminally investigate or prosecute any alcohol or drug abuse patient.[facility] HospitalIn the event this information is protected by the Federal Confidentiality of Alcohol and Drug Abuse Patient Records regulations: The Federal rules restrict any use of the information to criminally investigate or prosecute any alcohol or drug abuse patient.[facility] HospitalIn the event this information is protected by the Federal Confidentiality of Alcohol and Drug Abuse Patient Records regulations: The Federal rules restrict any use of the information to criminally investigate or prosecute any alcohol or drug abuse patient.[facility] HospitalIn the event this information is protected by the Federal Confidentiality of Alcohol and Drug Abuse Patient Records regulations: The Federal rules restrict any use of the information to criminally investigate or prosecute any alcohol or drug abuse patient.[facility] HospitalIn the event this information is protected by the Federal Confidentiality of Alcohol and Drug Abuse Patient Records regulations: The Federal rules restrict any use of the information to criminally investigate or prosecute any alcohol or drug abuse patient.[facility] HospitalIn the event this information is protected by the Federal Confidentiality of Alcohol and Drug Abuse Patient Records regulations: The Federal rules restrict any use of the information to criminally investigate or prosecute any alcohol or drug abuse patient.[facility] HospitalIn the event this information is protected by the Federal Confidentiality of Alcohol and Drug Abuse Patient Records regulations: The Federal rules restrict any use of the information to criminally investigate or prosecute any alcohol or drug abuse patient.[facility] HospitalIn the event this information is protected by the Federal Confidentiality of Alcohol and Drug Abuse Patient Records regulations: The Federal rules restrict any use of the information to criminally investigate or prosecute any alcohol or drug abuse patient.[facility] HospitalIn the event this information is protected by the Federal Confidentiality of Alcohol and Drug Abuse Patient Records regulations: The Federal rules restrict any use of the information to criminally investigate or prosecute any alcohol or drug abuse patient.[facility] HospitalIn the event this information is protected by the Federal Confidentiality of Alcohol and Drug Abuse Patient Records regulations: The Federal rules restrict any use of the information to criminally investigate or prosecute any alcohol or drug abuse patient.[facility] HospitalIn the event this information is protected by the Federal Confidentiality of Alcohol and Drug Abuse Patient Records regulations: The Federal rules restrict any use of the information to criminally investigate or prosecute any alcohol or drug abuse patient.[facility] HospitalIn the event this information is protected by the Federal Confidentiality of Alcohol and Drug Abuse Patient Records regulations: The Federal rules restrict any use of the information to criminally investigate or prosecute any alcohol or drug abuse patient.[facility] HospitalIn the event this information is protected by the Federal Confidentiality of Alcohol and Drug Abuse Patient Records regulations: The Federal rules restrict any use of the information to criminally investigate or prosecute any alcohol or drug abuse patient.[facility] HospitalIn the event this information is protected by the Federal Confidentiality of Alcohol and Drug Abuse Patient Records regulations: The Federal rules restrict any use of the information to criminally investigate or prosecute any alcohol or drug abuse patient.[facility] HospitalIn the event this information is protected by the Federal Confidentiality of Alcohol and Drug Abuse Patient Records regulations: The Federal rules restrict any use of the information to criminally investigate or prosecute any alcohol or drug abuse patient.[facility] HospitalIn the event this information is protected by the Federal Confidentiality of Alcohol and Drug Abuse Patient Records regulations: The Federal rules restrict any use of the information to criminally investigate or prosecute any alcohol or drug abuse patient.[facility] HospitalIn the event this information is protected by the Federal Confidentiality of Alcohol and Drug Abuse Patient Records regulations: The Federal rules restrict any use of the information to criminally investigate or prosecute any alcohol or drug abuse patient.[facility] HospitalIn the event this information is protected by the Federal Confidentiality of Alcohol and Drug Abuse Patient Records regulations: The Federal rules restrict any use of the information to criminally investigate or prosecute any alcohol or drug abuse patient.[facility] HospitalIn the event this information is protected by the Federal Confidentiality of Alcohol and Drug Abuse Patient Records regulations: The Federal rules restrict any use of the information to criminally investigate or prosecute any alcohol or drug abuse patient.[facility] HospitalIn the event this information is protected by the Federal Confidentiality of Alcohol and Drug Abuse Patient Records regulations: The Federal rules restrict any use of the information to criminally investigate or prosecute any alcohol or drug abuse patient.[facility] HospitalIn the event this information is protected by the Federal Confidentiality of Alcohol and Drug Abuse Patient Records regulations: The Federal rules restrict any use of the information to criminally investigate or prosecute any alcohol or drug abuse patient.[facility] HospitalIn the event this information is protected by the Federal Confidentiality of Alcohol and Drug Abuse Patient Records regulations: The Federal rules restrict any use of the information to criminally investigate or prosecute any alcohol or drug abuse patient.[facility] HospitalIn the event this information is protected by the Federal Confidentiality of Alcohol and Drug Abuse Patient Records regulations: The Federal rules restrict any use of the information to criminally investigate or prosecute any alcohol or drug abuse patient.[facility] HospitalIn the event this information is protected by the Federal Confidentiality of Alcohol and Drug Abuse Patient Records regulations: The Federal rules restrict any use of the information to criminally investigate or prosecute any alcohol or drug abuse patient.[facility] HospitalIn the event this information is protected by the Federal Confidentiality of Alcohol and Drug Abuse Patient Records regulations: The Federal rules restrict any use of the information to criminally investigate or prosecute any alcohol or drug abuse patient.[facility] HospitalIn the event this information is protected by the Federal Confidentiality of Alcohol and Drug Abuse Patient Records regulations: The Federal rules restrict any use of the information to criminally investigate or prosecute any alcohol or drug abuse patient.[facility] HospitalIn the event this information is protected by the Federal Confidentiality of Alcohol and Drug Abuse Patient Records regulations: The Federal rules restrict any use of the information to criminally investigate or prosecute any alcohol or drug abuse patient.[facility] HospitalIn the event this information is protected by the Federal Confidentiality of Alcohol and Drug Abuse Patient Records regulations: The Federal rules restrict any use of the information to criminally investigate or prosecute any alcohol or drug abuse patient.[facility] HospitalIn the event this information is protected by the Federal Confidentiality of Alcohol and Drug Abuse Patient Records regulations: The Federal rules restrict any use of the information to criminally investigate or prosecute any alcohol or drug abuse patient.[facility] HospitalIn the event this information is protected by the Federal Confidentiality of Alcohol and Drug Abuse Patient Records regulations: The Federal rules restrict any use of the information to criminally investigate or prosecute any alcohol or drug abuse patient.[facility] HospitalIn the event this information is protected by the Federal Confidentiality of Alcohol and Drug Abuse Patient Records regulations: The Federal rules restrict any use of the information to criminally investigate or prosecute any alcohol or drug abuse patient.[facility] HospitalIn the event this information is protected by the Federal Confidentiality of Alcohol and Drug Abuse Patient Records regulations: The Federal rules restrict any use of the information to criminally investigate or prosecute any alcohol or drug abuse patient.[facility] HospitalIn the event this information is protected by the Federal Confidentiality of Alcohol and Drug Abuse Patient Records regulations: The Federal rules restrict any use of the information to criminally investigate or prosecute any alcohol or drug abuse patient.[facility] HospitalIn the event this information is protected by the Federal Confidentiality of Alcohol and Drug Abuse Patient Records regulations: The Federal rules restrict any use of the information to criminally investigate or prosecute any alcohol or drug abuse patient.[facility] HospitalIn the event this information is protected by the Federal Confidentiality of Alcohol and Drug Abuse Patient Records regulations: The Federal rules restrict any use of the information to criminally investigate or prosecute any alcohol or drug abuse patient.[facility] HospitalIn the event this information is protected by the Federal Confidentiality of Alcohol and Drug Abuse Patient Records regulations: The Federal rules restrict any use of the information to criminally investigate or prosecute any alcohol or drug abuse patient.[facility] HospitalIn the event this information is protected by the Federal Confidentiality of Alcohol and Drug Abuse Patient Records regulations: The Federal rules restrict any use of the information to criminally investigate or prosecute any alcohol or drug abuse patient.[facility] HospitalIn the event this information is protected by the Federal Confidentiality of Alcohol and Drug Abuse Patient Records regulations: The Federal rules restrict any use of the information to criminally investigate or prosecute any alcohol or drug abuse patient.[facility] HospitalIn the event this information is protected by the Federal Confidentiality of Alcohol and Drug Abuse Patient Records regulations: The Federal rules restrict any use of the information to criminally investigate or prosecute any alcohol or drug abuse patient.[facility] HospitalIn the event this information is protected by the Federal Confidentiality of Alcohol and Drug Abuse Patient Records regulations: The Federal rules restrict any use of the information to criminally investigate or prosecute any alcohol or drug abuse patient.[facility] HospitalIn the event this information is protected by the Federal Confidentiality of Alcohol and Drug Abuse Patient Records regulations: The Federal rules restrict any use of the information to criminally investigate or prosecute any alcohol or drug abuse patient.[facility] HospitalIn the event this information is protected by the Federal Confidentiality of Alcohol and Drug Abuse Patient Records regulations: The Federal rules restrict any use of the information to criminally investigate or prosecute any alcohol or drug abuse patient.[facility] HospitalIn the event this information is protected by the Federal Confidentiality of Alcohol and Drug Abuse Patient Records regulations: The Federal rules restrict any use of the information to criminally investigate or prosecute any alcohol or drug abuse patient.[facility] HospitalIn the event this information is protected by the Federal Confidentiality of Alcohol and Drug Abuse Patient Records regulations: The Federal rules restrict any use of the information to criminally investigate or prosecute any alcohol or drug abuse patient.[facility] HospitalIn the event this information is protected by the Federal Confidentiality of Alcohol and Drug Abuse Patient Records regulations: The Federal rules restrict any use of the information to criminally investigate or prosecute any alcohol or drug abuse patient.[facility] HospitalIn the event this information is protected by the Federal Confidentiality of Alcohol and Drug Abuse Patient Records regulations: The Federal rules restrict any use of the information to criminally investigate or prosecute any alcohol or drug abuse patient.[facility] HospitalIn the event this information is protected by the Federal Confidentiality of Alcohol and Drug Abuse Patient Records regulations: The Federal rules restrict any use of the information to criminally investigate or prosecute any alcohol or drug abuse patient.[facility] HospitalIn the event this information is protected by the Federal Confidentiality of Alcohol and Drug Abuse Patient Records regulations: The Federal rules restrict any use of the information to criminally investigate or prosecute any alcohol or drug abuse patient.[facility] HospitalIn the event this information is protected by the Federal Confidentiality of Alcohol and Drug Abuse Patient Records regulations: The Federal rules restrict any use of the information to criminally investigate or prosecute any alcohol or drug abuse patient.[facility] HospitalIn the event this information is protected by the Federal Confidentiality of Alcohol and Drug Abuse Patient Records regulations: The Federal rules restrict any use of the information to criminally investigate or prosecute any alcohol or drug abuse patient.[facility] HospitalIn the event this information is protected by the Federal Confidentiality of Alcohol and Drug Abuse Patient Records regulations: The Federal rules restrict any use of the information to criminally investigate or prosecute any alcohol or drug abuse patient.[facility] HospitalIn the event this information is protected by the Federal Confidentiality of Alcohol and Drug Abuse Patient Records regulations: The Federal rules restrict any use of the information to criminally investigate or prosecute any alcohol or drug abuse patient.[facility] Reason for Visit (unrecogniz ed section and content) Reason Comments ? ACID REFLUX burning sensation in throat after eating, throw up in my mouth, but all acid, mucus build up in my chest that will gag me when it comes up. Onset times 1 month. Reason Comments Well Child 15 yr [facility] Discussion Acid reflux; Allergi es- sees ENT Reason Comments RECOVERY [employer] Ultrasound Reason Comments Nausea sob, fever x [...] x4 days Reason Comments Well Child 17yr [facility] Reason Comments Orders Reason Comments Radiology US Specialty Diagnoses / Procedures Referred By Contac t Referred To Contact [facility] Diagnoses Pelvic pain in female Procedures US FEMALE PELVIS TRANSVAG US TRANSVAGINAL Delfina Watson APRN.CN [address] [place] [address] [place] [address] Referral ID Status Reason Start Date Expiration Date V isits Requested Visits Authorized [id number] Closed Auto-Generate d Referral 05/03/2023 06/01/2024 1 [...] Referred By Contac t Referred To Contact [facility] [place]] Diagnoses Encounter for care in first trimester of first 7 weeks gestation of Procedures NUCHAL TRANSLUCENCY WHI US NUCHAL TRANSLUCENCY 1ST GESTATION Nilda Stiles APRN.WATERMASTER [address] [place] [address] [facility] [address] [place] [id number] Referral ID Status Reason Start Date Expiration Date V isits Requested Visits Authorized [id number] Closed Auto-Generate d Referral 02/21/2024 02/20/2025 1 1 Reason Onset Date Comments Refill Request 04/10/2024 Reason Onset Date Comments Care 04/27/2024 Reason Comments Question (OB Question) Reason Onset Date Comments Care 05/25/2024 Specialty Diagnoses / Procedures Referred By Contac t Referred To Contact [facility] [place] 2] Diagnoses Supervision of normal first teen in first trimester 13 weeks gestation of Obesity in Procedures OBSTETRIC ULTRASOUND WHI US PREG UTERUS AFTER 1ST TRIMEST 1 GESTATION Delfina Watson APRN.CNM [address] [place] [address] Phone: tel: fax: [address] [address] Referral ID Status Reason Start Date Expiration Date V isits Requested Visits Authorized [id number] Closed Auto-Generate d Referral 04/03/2024 04/03/2025 1 [...] Care Teams (unrecognized sec tion and content) Marketing Finance Manager Relationship Specialty Start Date End Date Que Chavez MD [address] [place] [id number] PCP - General Pediatrics 01/19/17 Marketing Finance Manager Relationship Specialty Start Date End Date Que Chavez MD [address] [place] [id number] PCP - General Pediatrics 01/19/17 Marketing Finance Manager Relationship Specialty Start Date End Date Que Chavez MD [address] [place] [address] PCP - General Pediatrics 01/19/17 Marketing Finance Manager Relationship Specialty Start Date End Date Que Chavez MD [address] [place] [id number] PCP - General Pediatrics 01/19/17 Marketing Finance Manager Relationship Specialty Start Date End Date Que Chavez MD [address] [place] [address] [place] [address] PCP - General Pediatrics 01/19/17 Marketing Finance Manager Relationship Specialty Start Date End Date Que Chavez MD [address] [place] [id number] PCP - General Pediatrics 01/19/17 Marketing Finance Manager Relationship Specialty Start Date End Date Que Chavez MD [address] [place] [address] PCP - General Pediatrics 01/19/17 Marketing Finance Manager Relationship Specialty Start Date End Date Que Chavez MD [address] [place] [address] PCP - General Pediatrics 01/19/17 Marketing Finance Manager Relationship Specialty Start Date End Date Que Chavez MD [address] [place] [address] PCP - General Pediatrics 01/19/17 Marketing Finance Manager Relationship Specialty Start Date End Date Que Chavez MD [address] [place] [address] PCP - General Pediatrics 01/19/17 Marketing Finance Manager Relationship Specialty Start Date End Date Que Chavez MD [address] [place] [address] PCP - General Pediatrics 01/19/17 Marketing Finance Manager Relationship Specialty Start Date End Date Que Chavez MD [address] [place] [address] PCP - General Pediatrics 01/19/17 Marketing Finance Manager Relationship Specialty Start Date End Date Que Chavez MD [address] [place] [address] PCP - General Pediatrics 01/19/17 Marketing Finance Manager Relationship Specialty Start Date End Date Que Chavez MD [address] [place] [address] PCP - General Pediatrics 01/19/17 Marketing Finance Manager Relationship Specialty Start Date End Date Que Chavez MD [address] [place] [address] PCP - General Pediatrics 01/19/17 Marketing Finance Manager Relationship Specialty Start Date End Date Que Chavez MD [address] [place] [address] PCP - General Pediatrics 01/19/17 Marketing Finance Manager Relationship Specialty Start Date End Date Que Chavez MD [address] [place] [address] PCP - General Pediatrics 01/19/17 Marketing Finance Manager Relationship Specialty Start Date End Date Que Chavez MD [address] [place] [address] PCP - General Pediatrics 01/19/17 Marketing Finance Manager Relationship Specialty Start Date End Date Que Chavez MD [address] [place] [address] PCP - General Pediatrics 01/19/17 Marketing Finance Manager Relationship Specialty Start Date End Date Que Chavez MD [address] [place] [address] PCP - General Pediatrics 01/19/17 Marketing Finance Manager Relationship Specialty Start Date End Date Que Chavez MD [address] [place] [address] PCP - General Pediatrics 01/19/17 Marketing Finance Manager Relationship Specialty Start Date End Date Que Chavez MD [address] [place] [address] PCP - General Pediatrics 01/19/17 Marketing Finance Manager Relationship Specialty Start Date End Date Que Chavez MD [address] [place] [address] PCP - General Pediatrics 01/19/17 Marketing Finance Manager Relationship Specialty Start Date End Date Que Chavez MD [address] [place] [address] PCP - General Pediatrics 01/19/17 Marketing Finance Manager Relationship Specialty Start Date End Date Que Chavez MD [address] [place] [address] PCP - General Pediatrics 01/19/17 Marketing Finance Manager Relationship Specialty Start Date End Date Que Chavez MD [address] [place] [address] PCP - General Pediatrics 01/19/17 Marketing Finance Manager Relationship Specialty Start Date End Date Ruiz Vega DO [address] [place] [address] PCP - General Family Medicine 08/13/24 Marketing Finance Manager Relationship Specialty Start Date End Date Ruiz Vega DO [address] [place] [address] PCP - General Family Medicine 08/13/24 Maria Alejandra Morel, BRAKE SHOE REBUILDER.WATERMASTER [address] [place] [address] [facility] 08/16/24 Marketing Finance Manager Relationship Specialty Start Date End Date Ruiz Vega DO [address] [place] [address] PCP - General Family Medicine 08/13/24 Maria Alejandra Morel, BRAKE SHOE REBUILDER.WATERMASTER [address] [place] [address] [facility] 08/16/24 Sheri Harrison, BRAKE SHOE REBUILDER.WATERMASTER [address] [facility] [place] [address] [facility] 08/20/24 Team Status: Active Member Role/Relationship Status Dates Dr. Ruiz Vega DO Primary Care Provider Active Team Status: Inactive Member Role/Relationship Status Dates Dr. Ruiz Vega DO Primary Care Provider Active Start: September 04, 2024 End: September 04, 2024 Dr. Conrado Richardson MD Emergency Provider Active S tart: September 04, 2024 End: September 04, 2024 Marketing Finance Manager Relationship Specialty Start Date End Date Ruiz Vega DO [address] [place] [address] PCP - General Family Medicine 08/13/24 Maria Alejandra Morel, BRAKE SHOE REBUILDER.WATERMASTER [address] [place] [address] [facility] 08/16/24 Sheri Harrison, BRAKE SHOE REBUILDER.WATERMASTER [address] [place] [address] [facility] Marketing Finance Manager Relationship Specialty Start Date End Date Ruiz Vega DO [address] [place] [address] PCP - General Family Medicine 08/13/24 AdrielMaria Alejandra, BRAKE SHOE REBUILDER.WATERMASTER [address] [place] [address] [facility] 08/16/24 Sheri Harrison, BRAKE SHOE REBUILDER.WATERMASTER [address] [place] [address] [facility] 08/20/24 Marketing Finance Manager Relationship Specialty Start Date End Date Ruiz Vega DO [address] [place] [address] PCP - General Family Medicine 08/13/24 Maria Alejandra Morel, BRAKE SHOE REBUILDER.WATERMASTER [address] [place] [address] [facility] 08/16/24 Sheri Harrison APRN.WATERMASTER [address] [place] [address] [facility] 08/20/24 Marketing Finance Manager Relationship Specialty Start Date End Date Ruiz Vega DO [address] [place] [address] PCP - General Family Medicine 08/13/24 Maria Alejandra Morel, BRAKE SHOE REBUILDER.WATERMASTER [address] [place] [address] [facility] 08/16/24 Sheri Harrison BRAKE SHOE REBUILDER.WATERMASTER [address] [place] [address] [facility] 08/20/24 Marketing Finance Manager Relationship Specialty Start Date End Date Ruiz Vega DO [address] [place] [address] PCP - General Family Medicine 08/13/24 Maria Alejandra Morel, BRAKE SHOE REBUILDER.WATERMASTER [address] [place] [address] Regional Forester Family Medicine 08/16/24 Sheri Harrison, BRAKE SHOE REBUILDER.WATERMASTER [address] [place] [address] Regional Forester Family Medicine 08/20/24 Marketing Finance Manager Relationship Specialty Start Date End Date Ruiz Vega DO [address] [place] [address] PCP - General Family Medicine 08/13/24 Maria Alejandra Morel, BRAKE SHOE REBUILDER.WATERMASTER [address] [place] [address] Regional Forester Family Medicine 08/16/24 Sheri Harrison, BRAKE SHOE REBUILDER.WATERMASTER [address] [place] [address] Regional Forester Family Medicine 08/20/24 Marketing Finance Manager Relationship Specialty Start Date End Date Ruiz Vega DO [address] [place] [address] PCP - General Family Medicine 08/13/24 Maria Alejandra Morel, BRAKE SHOE REBUILDER.WATERMASTER [address] [place] [address] Regional Forester Family Medicine 08/16/24 Sheri Harrison, BRAKE SHOE REBUILDER.WATERMASTER [address] [place] [address] Regional Forester Family Medicine 08/20/24 Marketing Finance Manager Relationship Specialty Start Date End Date Ruiz Vega DO [address] [place] [address] PCP - General Family Medicine 08/13/24 Maria Alejandra Morel, BRAKE SHOE REBUILDER.WATERMASTER [address] [place], [place] [id number] [facility] 08/16/24 Hunter Sherisusannah Cooper, BRAKE SHOE REBUILDER.WATERMASTER [address] [place], [place] [id number] [facility] 08/20/24 Team Status: Inactive [...] section and content) DATE CREATED AUTHOR 10/08/2024 [facility] DATE CREATED AUTHOR AUTHOR'S TYRONE ATLILLIAN 10/11/2024 [facility] FOR RECORDS PERTAINING TO PATIENTS WHO [...] BE BASED ON THE PRIMARY CLINICAL RECORDS. [employer] provides no warranty or guarantee of the accuracy or completeness of information in this document.
[2024-10-13] MEDS: Lactated Ringers 1,000 ML 999 ML IV (09:25)
[2024-10-13 09:43] LABS: Hematocrit 37.7 % (37-47); Hemoglobin 12.3 g/dL (12.0-15.0); Immature Granulocytes Count 0.140 X10^3/uL (0.0-0.0); Mean Corp Hgb Conc 32.6 g/dL (32-36); Mean Corpuscular Volume 81.6 fL (81-99); Mean Platelet Vol. 9.9 fl (6.2-12.0); NRBC Flagged by Analyzer 0 % (0-5); Platelet Count 282 K/mm3 (150-450); RBC Distribution Width CV 14.6 % (11.6-14.6); RBC Distribution Width SD 42.3 fl (35.1-43.9); Red Blood Count 4.62 M/mm3 (4.2-5.4); White Blood Count 16.1 K/mm3 (4.4-11.0)
[2024-10-13] MEDS: Penicillin G Pot 5,000,000 UNITS in 0.9% Normal Saline (100mL MB+) 100 ML 150 UNITS IV (09:46)
[2024-10-13 10:07] LABS: Syphilis Antibodies Nonreactive (Nonreactive)
[2024-10-13] MEDS: Lactated Ringers 1,000 ML 200 ML IV ×3 (11:22→21:45)
[2024-10-13] MEDS: fentaNYL-bupivacaine (epidural) 100 ML BAG EPIDURAL ×3 (11:23→20:45)
--- NOTE | 2024-10-13 13:03 | PCM.HP.OB ---
HPI - General General Date of Admission: 10/13/24 HPI Narrative SHENG BROWNE, is a 19 F who presents at 40w4d with ANA 10/12/24 for active labor. Maternal Data Information ANA Calculator Estimated Delivery Date Method Current WG Current Estimate 10/09/24 Manual 40w 4d PFSH [facility] Medical History (Updated 10/13/24 @ 15:12 by Delfina Watson CNM) Asthma Left ankle pain Home Medications ?Medication ?Instructions ?Recorded ?Last Taken ?Type albuterol sulfate 90 mcg/actuation 1 puff inhalation PRN breathing 10/04/23 09/24/24 History aerosol inhaler vits 75-iron 28 mg-folic 1 pkg PO DAILY 02/24/24 10/12/24 History acid 800 mcg-omega-3 oral combo pack (One A Day Women's DHA) aspirin 81 mg chewable tablet 1 tab PO DAILY 10/12/24 10/12/24 History (Aspirin Childrens) famotidine 20 mg tablet (Acid-Pep) 20 mg PO QHS 10/12/24 10/12/24 22:00 History Allergy/AdvReac Type Severity Reaction Status Date / Time No Known Allergies Allergy Verified 10/12/24 23:36 Surgical History Hx of wisdom tooth extraction Hx of tonsillectomy Social History household members: spouse housing: house Smoking Status: Never smoker History Elective abortions Hx Para 0 Spontaneous abortions Hx # Term Pregnancies Ectopic pregnancies Hx # Pregnancies Multiple births # of living children NST FHR Rate Baby A Baseline: 135 Variability:: Moderate Accelerations:: 15 x 15 Decelerations:: None FHR Category:: Category I Uterine Activity:: every 3 minutes, strong ROS Constitutional Constitutional: Reports systems reviewed and no addt'l complaints, except as documented; Denies headache(s) Eyes Eyes: Denies acute decrease in peripheral vision, blurry vision or change in vision ENT HEENT: Reports systems reviewed and no addt'l complaints, except as documented Cardiovascular Cardiovascular: Denies chest pain or dizziness Respiratory/Chest Respiratory/Chest: Denies cough, dyspnea, dyspnea on exertion, shortness of breath at rest or shortness of breath with exertion Gastrointestinal Gastrointestinal: Denies abdominal pain, diarrhea, nausea or vomiting Genitourinary Genitourinary: Denies abdominal discomfort Musculoskeletal Musculoskeletal: Denies limited range of motion Integumentary Integumentary: Reports systems reviewed and no addt'l complaints, except as documented Neurologic Neurologic: Reports systems reviewed and no addt'l complaints, except as documented Psychiatric Psychiatric: Reports systems reviewed and no addt'l complaints, except as documented Endocrine Endocrinology: Reports systems reviewed and no addt'l complaints, except as documented Hematologic/Lymphatic Hematologic/Lymphatic: Reports systems reviewed and no addt'l complaints, except as documented Allergic/Immunologic Allergic/Immunologic: Reports systems reviewed and no addt'l complaints, except as documented Vital Signs Vital Signs Vital Signs: 10/13/24 10:00 10/13/24 10:00 10/13/24 10:00 Temperature Temperature Source Pulse Rate 88 Respiratory Rate Blood Pressure 121/80 H BP Systolic 121 BP Diastolic 80 Pulse Ox 99 10/13/24 10:00 10/13/24 10:00 10/13/24 10:00 Temperature 97.4 F L Temperature Source Temporal Pulse Rate Respiratory Rate 16 Blood Pressure BP Systolic BP Diastolic Pulse Ox 10/13/24 10:56 10/13/24 10:56 10/13/24 10:57 Temperature Temperature Source Pulse Rate 100 95 Respiratory Rate Blood Pressure 146/84 H BP Systolic 146 BP Diastolic 84 Pulse Ox 10/13/24 10:57 10/13/24 11:00 10/13/24 11:01 Temperature Temperature Source Pulse Rate Respiratory Rate 16 Blood Pressure 132/87 H BP Systolic 132 BP Diastolic 87 Pulse Ox 99 10/13/24 11:01 10/13/24 11:02 10/13/24 11:02 Temperature Temperature Source Pulse Rate 88 95 Respiratory Rate Blood Pressure BP Systolic BP Diastolic Pulse Ox 99 10/13/24 11:05 10/13/24 11:05 10/13/24 11:07 Temperature Temperature Source Pulse Rate 104 H 94 Respiratory Rate Blood Pressure 135/72 H BP Systolic 135 BP Diastolic 72 Pulse Ox 10/13/24 11:07 10/13/24 11:10 10/13/24 11:11 Temperature Temperature Source Pulse Rate Respiratory Rate 16 Blood Pressure 136/77 H BP Systolic 136 BP Diastolic 77 Pulse Ox 98 10/13/24 11:11 10/13/24 11:12 10/13/24 11:12 Temperature Temperature Source Pulse Rate 89 93 Respiratory Rate Blood Pressure 128/78 H BP Systolic 128 BP Diastolic 78 Pulse Ox 10/13/24 11:12 10/13/24 11:15 10/13/24 11:15 Temperature Temperature Source Pulse Rate 96 Respiratory Rate Blood Pressure 124/79 H BP Systolic 124 BP Diastolic 79 Pulse Ox 98 10/13/24 11:15 10/13/24 11:17 10/13/24 11:17 Temperature Temperature Source Pulse Rate 95 Respiratory Rate 16 Blood Pressure BP Systolic BP Diastolic Pulse Ox 97 10/13/24 11:20 10/13/24 11:20 10/13/24 11:20 Temperature Temperature Source Pulse Rate 90 Respiratory Rate 16 Blood Pressure 126/80 H BP Systolic 126 BP Diastolic 80 Pulse Ox 10/13/24 11:22 10/13/24 11:22 10/13/24 11:25 Temperature Temperature Source Pulse Rate 90 Respiratory Rate Blood Pressure 131/84 H BP Systolic 131 BP Diastolic 84 Pulse Ox 97 10/13/24 11:25 10/13/24 11:25 10/13/24 11:27 Temperature Temperature Source Pulse Rate 96 96 Respiratory Rate 16 Blood Pressure BP Systolic BP Diastolic Pulse Ox 10/13/24 11:27 10/13/24 11:30 10/13/24 11:30 Temperature Temperature Source Pulse Rate 90 Respiratory Rate Blood Pressure 121/79 H BP Systolic 121 BP Diastolic 79 Pulse Ox 97 10/13/24 11:30 10/13/24 11:32 10/13/24 11:32 Temperature Temperature Source Pulse Rate 100 Respiratory Rate 16 Blood Pressure BP Systolic BP Diastolic Pulse Ox 97 10/13/24 11:35 10/13/24 11:35 10/13/24 11:35 Temperature Temperature Source Pulse Rate 103 H Respiratory Rate 16 Blood Pressure 119/83 H BP Systolic 119 BP Diastolic 83 Pulse Ox 10/13/24 11:38 10/13/24 11:38 10/13/24 11:40 Temperature Temperature Source Pulse Rate 87 87 Respiratory Rate Blood Pressure BP Systolic BP Diastolic Pulse Ox 97 10/13/24 11:40 10/13/24 11:41 10/13/24 11:41 Temperature Temperature Source Pulse Rate 88 Respiratory Rate Blood Pressure 114/58 L BP Systolic 114 BP Diastolic 58 Pulse Ox 92 10/13/24 11:43 10/13/24 11:43 10/13/24 11:46 Temperature Temperature Source Pulse Rate 95 Respiratory Rate Blood Pressure 112/66 BP Systolic 112 BP Diastolic 66 Pulse Ox 97 10/13/24 11:46 10/13/24 11:50 10/13/24 11:50 Temperature Temperature Source Pulse Rate 96 96 Respiratory Rate Blood Pressure 103/58 L BP Systolic 103 BP Diastolic 58 Pulse Ox 10/13/24 11:55 10/13/24 11:55 10/13/24 12:02 Temperature Temperature Source Pulse Rate 100 Respiratory Rate Blood Pressure 102/63 106/63 BP Systolic 102 106 BP Diastolic 63 63 Pulse Ox 10/13/24 12:02 10/13/24 12:03 10/13/24 12:03 Temperature Temperature Source Temporal Pulse Rate 97 Respiratory Rate 16 Blood Pressure BP Systolic BP Diastolic Pulse Ox 10/13/24 12:03 10/13/24 12:55 10/13/24 12:55 Temperature 97.8 F Temperature Source Temporal Pulse Rate Respiratory Rate 16 Blood Pressure BP Systolic BP Diastolic Pulse Ox 10/13/24 12:55 10/13/24 12:56 10/13/24 12:56 Temperature 98.8 F Temperature Source Pulse Rate 98 Respiratory Rate Blood Pressure 114/65 BP Systolic 114 BP Diastolic 65 Pulse Ox 10/13/24 12:56 Temperature Temperature Source Pulse Rate Respiratory Rate Blood Pressure BP Systolic BP Diastolic Pulse Ox 98 Weight Weight: 224 lb 10.417 oz Body Mass Index (BMI) 38.5 Physical Exam Const alert and oriented x3 General Appearance: cooperative Orientation / Consciousness: awake, oriented to person, oriented to place and oriented to time Exam Limitations: no limitations HEENT normocephalic Head and Scalp: normal to inspection, normocephalic and atraumatic Face and Sinus: normal facial exam Eyes General Eye: normal appearance of both eyes Neck full ROM Chest Chest: symmetrical chest wall rise Resp normal respiratory effort and normal air movement Auscultation: clear to auscultation bilaterally Cardio regular rate, regular rhythm, S1 normal heart sound, S2 normal heart sound, no murmurs, no rub, no gallops and no clicks GI normal to inspection, nondistended, normoactive bowel sounds and non-tender appearance of the vagina normal Bladder / Kidney Exam: no CVA tenderness Manual OB Exam: estimated gestational size appropriate, presentation cephalic, dilated 5, effaced 80, station -1 and other AROM, Meconium Back/Spine normal ROM Extremity normal to inspection and full ROM Skin no rashes or lesions noted Neuro oriented x3, CN's II-XII intact bilaterally and moves all extremities Sensorium / Orientation: awake, alert and oriented to person Motor Exam: clonus absent Deep Tendon Reflexes: Rt Patellar (L4): 2+ and Lt Patellar (L4): 2+ Labs Labs Labs: Blood Type O POSITIVE Antibody Screen NEGATIVE Hct 37.7 % (37-47) Hgb 12.3 g/dL (12.0-15.0) Syphilis Total Ab Nonreactive (Nonreactive) GBS positive O positive HIV negative Hep C negative HBsAG negative Rubella Immune RPR negative O positive GC/CT negative Assessment & Plan (1) 40 weeks gestation of : (2) Active labor at term: (3) Positive GBS test: (4) Obesity affecting : PLAN: Plan 1) Admit to labor and delivery 2) Routine labs 3) Continuous EFM 4) Pain management upon request 5) collaborative physician and notified of patient status, above assessment, and plan.
[2024-10-13] MEDS: Oxytocin 15 Units/NS 250ml 15 UNITS/250 ML IV.SOLN 2 UNITS IV (13:27)
[2024-10-13] MEDS: Penicillin G 3,000,000 Units 50 ML 100 UNITS IV ×2 (14:25→18:22)
--- NOTE | 2024-10-13 15:07 | PN.OBGYN_ITS ---
Subjective Subjective Resting in bed and heart rate deceleration seen on monitor. Objective Data Objective Data Vital Signs: Vital Signs Temp Pulse Resp BP Pulse Ox 98.4 F 90 16 100/56 L 96 10/13/24 14:12 10/13/24 14:12 10/13/24 14:12 10/13/24 14:12 10/13/24 14:12 Weight: 224 lb 10.417 oz Body Mass Index (BMI) 38.5 Intake & Output: Intake and Output for Last 24 Hours 10/11/24 10/12/24 10/13/24 23:59 23:59 23:59 Intake Total 1100 / 1100 Balance 1100 / 1100 Lab / Micro Data 10/13/24 09:25 Labs: Laboratory Results - last 24 hr 10/13/24 09:25: WBC 16.1 H, RBC 4.62, Hgb 12.3, Hct 37.7, MCV 81.6, MCH 26.6 L, MCHC 32.6, RDW Std Deviation 42.3, RDW Coeff of Teena 14.6, Plt Count 282, MPV 9.9, Immature Gran % (Auto) 0.900, Neut % (Auto) 80.4 H, Lymph % (Auto) 12.5 L, [place] % (Auto) 5.2, Eos % (Auto) 0.7, Baso % (Auto) 0.3, Absolute Neuts (auto) 12.9 H, Absolute Lymphs (auto) 2.02, Nucleated RBC % 0, Syphilis Total Ab Nonreactive, Blood Type O POSITIVE, Antibody Screen NEGATIVE Physical Exam Manual OB Exam: presentation cephalic, dilated 5cm, effaced 80, station -1 and other OP and asynclitic NST FHR Rate Baby A Baseline: 145 Variability:: Moderate Accelerations:: 15 x 15 Decelerations:: Variable and Prolonged FHR Category:: Category II Uterine Activity:: every 1-4 minutes Assessment & Plan (1) Obesity affecting : (2) Positive GBS test: (3) Active labor at term: (4) 40 weeks gestation of : PLAN: Plan 1) Positional changes with recovery and FHR 2) Cervical exam shows OP and asynclitic 3) notified of FHT and resusitative measures. Recovery of FHT after postion change.
[2024-10-14] VITALS (41 sets, daily range): BP systolic 89–142; BP diastolic 50–82; PULSE 92–145; RESP 16–18; TEMP 35.9–38.1; O2SAT 95–99
--- NOTE | 2024-10-14 00:06 | PN.OBGYN_ITS ---
Subjective Subjective Pushing efforts, at bedside. Objective Data Objective Data Vital Signs: Vital Signs Temp Pulse Resp BP Pulse Ox 98.6 F 97 16 124/78 H 99 10/13/24 23:14 10/13/24 23:14 10/13/24 23:14 10/13/24 23:14 10/13/24 23:14 Weight: 224 lb 10.417 oz Body Mass Index (BMI) 38.5 Intake & Output: Intake and Output for Last 24 Hours 10/12/24 10/13/24 10/14/24 23:59 23:59 23:59 Intake Total 2211.07 / 2211.07 Balance 2211.07 / 2211.07 Lab / Micro Data 10/13/24 09:25 Labs: Laboratory Results - last 24 hr 10/13/24 09:25: WBC 16.1 H, RBC 4.62, Hgb 12.3, Hct 37.7, MCV 81.6, MCH 26.6 L, MCHC 32.6, RDW Std Deviation 42.3, RDW Coeff of Teena 14.6, Plt Count 282, MPV 9.9, Immature Gran % (Auto) 0.900, Neut % (Auto) 80.4 H, Lymph % (Auto) 12.5 L, [place] % (Auto) 5.2, Eos % (Auto) 0.7, Baso % (Auto) 0.3, Absolute Neuts (auto) 12.9 H, Absolute Lymphs (auto) 2.02, Nucleated RBC % 0, Syphilis Total Ab Nonreactive, Blood Type O POSITIVE, Antibody Screen NEGATIVE Physical Exam Narrative: Complete dilation, small amount of caput. Pushing efforts station is +2. NST FHR Rate Baby A Baseline: 180 Variability:: Moderate Accelerations:: None Decelerations:: Variable FHR Category:: Category II Uterine Activity:: Every 2 minutes, strong Assessment & Plan (1) 40 weeks gestation of : (2) Active labor at term: (3) Positive GBS test: PLAN: Plan 1) Continue pushing efforts 2) Category 2 FHT, tachycardia. Temperature 98.4, afebrile 3) station not at level for vacuum at this time but discussed with and will call once station is lower. reviewed EFM and updated on patient above status, assessment and plan of care.
[2024-10-14] MEDS: Penicillin G 3,000,000 Units 50 ML 100 UNITS IV (00:25)
--- NOTE | 2024-10-14 01:00 | OB.VAGDELI_ITS ---
Assessment & Plan (1) Vaginal delivery: (2) Thick meconium stained amniotic fluid: (3) Variable heart rate decelerations, delivered: (4) tachycardia during labor: Maternal Data Information ANA Calculator Estimated Delivery Date Method Current WG Current Estimate 10/09/24 Manual 40w 5d Vaginal Delivery Maternal Presentation Maternal Presentation: Active Labor (pitocin augmentation) Vaginal Delivery Information Procedure Performed: Spontaneous Vaginal Delivery Surgeon/Practitioner: Delfina Watson Date of Procedure: 10/14/24 Pre-Procedure Diagnosis: Active labor at term Post-Procedure Diagnosis: Type of anesthesia: Epidural Estimated Blood Loss: 300 ml Time of Delivery: 00:46 Findings Description of procedure: Progressed to complete with urge to push. Epidural for management. Variable decelerations and tachycardia with moderate variability. Afebrile. Meconium stained fluid. [employer] and respiratory called to delivery. presented due to heart rate decelerations. of viable male infant over intact perineum. APGARS 8,9 respectively. Infant head delivered with body immediately forthcoming. Placed on maternal abdomen, strong cry. Mouth and nares suctioned for secretions. Pitocin started for active 3rd stage management. Cord doubly clamped and cut by FOB immediately after delivery. Placenta delivered intact via hart, 3 vessel cord intact. Perineum inspected and revealed intact. Fundus firm and hemostasis achieved. EBL 300ml. Vaginal sweep completed by me, sponge and instrument correct. Mom and baby stable, planning to breastfeed. Family bonding well. present for delivery. Presentation: Vertex Amniotic Membrane Rupture Type: Artificial Amniotic Fluid Description: Thick meconium Placental Delivery Description: Spontaneous Placenta Disposition: [facility] Cord Vessel Description: 3 Vessels Cord Entanglement: Around neck x 1, loose Nuchal Cord Compression: Without compression A Gender: Male (1 minute): 6 (5 minute): 8 Delayed Cord Clamping: No Post Vaginal Deli Medications given after delivery: IV Pitocin Episiotomy Description: None Laceration: None Complication Complications: No
--- NOTE | 2024-10-14 01:21 | PLAC_PTH ---
PATIENT: SHENG BROWNE LOC: WP U#:[id number] AGE/SX: 19/F ROOM: WP004 RE10/13/[address]: Delfina Watson CNM : 2005 BED: 1 DIS: 10/15/2024 SPEC #: [id number] RECD: 10/14/24 04:00 STATUS: FERNANDO GEMINI #: [id number] SATHISH: 10/14/24 01:[address]: Delfina Watson DEPT: SURGICAL PATHOLOGY RECD BY: Shree Castañeda ENTERED: 10/15/24 10:58 SP TYPE: PLACENTA OTHR DR: Dr. Ruiz Vega, DO Tissues: A - Placenta, NOS Procedures: Surgery Specimen Level V HEADER OPERATION: Vaginal delivery PRE-OP DIAGNOSIS: decelerations TISSUE SUBMITTED: A- Placenta MICROSCOPIC DIAGNOSIS A. Placenta, gestation age of 40 weeks / 4 days, vaginal delivery: * Eccentrically inserted and trivascular umbilical cord with slight acute funisitis * Marginally inserted membranes with acute chorioamnionitis and with increased number of pigmented macrophages, suggesting meconium * Mature (third trimester) placenta with acute chorioamnionitis and consistent with the stated gestational age of 40 weeks/4 days MICROSCOPIC DESCRIPTION Slides are reviewed. GROSS DESCRIPTION A. Received in formalin labeled with the patient's name and date of is a 521 g, 18.5 x 17.3 x 2.6 cm slightly irregular, ovoid placental disc. There is a 22.6 g blood clot in the container. The membranes are johnson-the yellow to green, translucent and edematous, inserting marginally. The attached and detached, johnson-white to yellow trivascular umbilical cord collectively measures 36.1 cm in length by 0.9-1.4 cm in diameter and inserts eccentrically, 3.9 cm from the disc edge. The surface is yellow-green, dull and focally edematous. The maternal surface is pink-red with a focally torn and frayed appearance and loosely adherent blood clot, predominantly near the periphery; when reapproximated, the maternal surface appears near complete. Sectioning reveals pink-red spongy parenchyma with focal fibrin (<15%). Trans Router sections are submitted as follows: A1: Membrane rollA2: Umbilical cordA3-A4: Placenta [place] 10/15/2024 CPT:91084
--- NOTE | 2024-10-14 01:21 | PLAC_PTH ---
PATIENT: SHENG BROWNE LOC: WP U#:[id number] AGE/SX: 19/F ROOM: WP004 RE10/13/[address]: Delfina Watson CNM : 2005 BED: 1 DIS: 10/15/2024 SPEC #: [id number] RECD: 10/14/24 04:00 STATUS: FERNANDO GEMINI #: [id number] SATHISH: 10/14/24 01:[address]: Delfina Watson DEPT: SURGICAL PATHOLOGY RECD BY: Shree Castañeda ENTERED: 10/15/24 10:58 SP TYPE: PLACENTA OTHR DR: Dr. Ruiz Vega, DO Tissues: A - Placenta, NOS Procedures: Surgery Specimen Level V HEADER OPERATION: Vaginal delivery PRE-OP DIAGNOSIS: decelerations TISSUE SUBMITTED: A- Placenta MICROSCOPIC DIAGNOSIS A. Placenta, gestation age of 40 weeks / 4 days, vaginal delivery: * Eccentrically inserted and trivascular umbilical cord with slight acute funisitis * Marginally inserted membranes with acute chorioamnionitis and with increased number of pigmented macrophages, suggesting meconium * Mature (third trimester) placenta with acute chorioamnionitis and consistent with the stated gestational age of 40 weeks/4 days MICROSCOPIC DESCRIPTION Slides are reviewed. GROSS DESCRIPTION A. Received in formalin labeled with the patient's name and date of is a 521 g, 18.5 x 17.3 x 2.6 cm slightly irregular, ovoid placental disc. There is a 22.6 g blood clot in the container. The membranes are johnson-the yellow to green, translucent and edematous, inserting marginally. The attached and detached, johnson-white to yellow trivascular umbilical cord collectively measures 36.1 cm in length by 0.9-1.4 cm in diameter and inserts eccentrically, 3.9 cm from the disc edge. The surface is yellow-green, dull and focally edematous. The maternal surface is pink-red with a focally torn and frayed appearance and loosely adherent blood clot, predominantly near the periphery; when reapproximated, the maternal surface appears near complete. Sectioning reveals pink-red spongy parenchyma with focal fibrin (<15%). Station Cook sections are submitted as follows: A1: Membrane rollA2: Umbilical cordA3-A4: Placenta [place] 10/15/2024 CPT:75425
[2024-10-14] MEDS: Oxytocin 15 Units/NS 250ml 15 UNITS/250 ML IV.SOLN 83 UNITS IV (01:30)
[2024-10-14 04:30] LABS: Pathology Specimen OB SEE PATHOLOGY REPORT
[2024-10-14 06:27] LABS: Hematocrit 32.8 % (37-47); Hemoglobin 10.5 g/dL (12.0-15.0); Immature Granulocytes Count 0.200 X10^3/uL (0.0-0.0); Mean Corp Hgb Conc 32.0 g/dL (32-36); Mean Corpuscular Volume 82.0 fL (81-99); Mean Platelet Vol. 9.7 fl (6.2-12.0); NRBC Flagged by Analyzer 0 % (0-5); POSITIVE DIFFERENTIAL YES; Platelet Count 263 K/mm3 (150-450); RBC Distribution Width CV 14.7 % (11.6-14.6); RBC Distribution Width SD 43.1 fl (35.1-43.9); Red Blood Count 4.00 M/mm3 (4.2-5.4); White Blood Count 24.9 K/mm3 (4.4-11.0)
[2024-10-14 06:37] LABS: Differential Indicated SCAN CRITERIA MET
[2024-10-14] MEDS: 0.9% Saline Lock 10 ML Syringe IV (09:37)
[2024-10-14] MEDS: Senna/Docusate Sodium 1 Tablet PO (09:40)
--- NOTE | 2024-10-14 14:09 | PN.OBGYN_ITS ---
Subjective Subjective Doing well per patient and nursing staff. Ambulating and taking PO without difficulty. Voiding and passing flatus. Pain controlled. , services for assistance. Denies headache, visual changes, chest pain, shortness of breath, leg pain or increased bleeding. Lochia normal. Objective Data Objective Data Vital Signs: Vital Signs Temp Pulse Resp BP Pulse Ox O2 Del Method 96.8 F L 92 18 116/82 H 97 Room Air 10/14/24 12:15 10/14/24 12:15 10/14/24 12:15 10/14/24 12:15 10/14/24 12:15 10/14/24 12:15 Oxygen Delivery Method Room Air Weight: 224 lb 10.417 oz Body Mass Index (BMI) 38.5 Intake & Output: Intake and Output for Last 24 Hours 10/12/24 10/13/24 10/14/24 23:59 23:59 23:59 Intake Total 3211.07 / 3211.07 1188.93 / 1188.93 Output Total 1400 / 1400 Balance 3211.07 / 3211.07 -211.07 / -211.07 Lab / Micro Data 10/14/24 06:10 Labs: Laboratory Results - last 24 hr 10/14/24 06:10: WBC 24.9 H, RBC 4.00 L, Hgb 10.5 L, Hct 32.8 L, MCV 82.0, MCH 26.3 L, MCHC 32.0, RDW Std Deviation 43.1, RDW Coeff of Teena 14.7 H, Plt Count 263, MPV 9.7, Immature Gran % (Auto) 0.800, Neut % (Auto) 80.8 H, Lymph % (Auto) 9.4 L, [place] % (Auto) 8.0, Eos % (Auto) 0.6, Baso % (Auto) 0.4, Absolute Neuts (auto) 20.1 H, Absolute Lymphs (auto) 2.33, Nucleated RBC % 0, Platelet Estimate ADEQUATE Physical Exam Const alert and oriented x3 General Appearance: cooperative Orientation / Consciousness: awake, oriented to person, oriented to place and oriented to time Exam Limitations: no limitations HEENT normocephalic Head and Scalp: normal to inspection, normocephalic and atraumatic Face and Sinus: normal facial exam Eyes General Eye: normal appearance of both eyes Neck full ROM Chest Chest: symmetrical chest wall rise Resp normal respiratory effort and normal air movement Auscultation: clear to auscultation bilaterally Cardio regular rate, regular rhythm, S1 normal heart sound, S2 normal heart sound, no murmurs, no rub, no gallops and no clicks GI normal to inspection, nondistended, normoactive bowel sounds and non-tender GI Narrative: Fundus firm 2 below U appearance of the vagina normal Narrative: Normal lochia rubra Bladder / Kidney Exam: no CVA tenderness Back/Spine normal ROM Extremity normal to inspection and full ROM Skin no rashes or lesions noted Neuro oriented x3, CN's II-XII intact bilaterally and moves all extremities Sensorium / Orientation: awake, alert and oriented to person Motor Exam: clonus absent Deep Tendon Reflexes: Rt Patellar (L4): 2+ and Lt Patellar (L4): 2+ Assessment & Plan (1) fever: COMMENT: 100.6 x1 PLAN: Plan 1) Routine PPD#1 2) Vitals stable 3) I&O 4) Pain management 5) services PRN 6) Planning D/C home tomorrow
[2024-10-15 00:50] VITALS: BP 142/90; PULSE 101; RESP 16; TEMP 36.4; O2SAT 98
[2024-10-15 04:00] VITALS: BP 128/87; PULSE 87; RESP 17; TEMP 36.4; O2SAT 98
--- NOTE | 2024-10-15 08:22 | PCM.PN.OB ---
Subjective Subjective Doing well. Ambulating and voiding without difficulty. Mild lochia. Breast feeding. Objective Data Objective Data Vital Signs: Vital Signs Temp Pulse Resp BP Pulse Ox O2 Del Method 97.6 F L 87 17 128/87 H 98 Room Air 10/15/24 04:00 10/15/24 04:00 10/15/24 04:00 10/15/24 04:00 10/15/24 04:00 10/15/24 04:00 Oxygen Delivery Method Room Air Weight: 101.9 kg Body Mass Index (BMI) 38.5 Intake & Output: Intake and Output for Last 24 Hours 10/13/24 10/14/24 10/15/24 23:59 23:59 23:59 Intake Total 3211.07 / 3211.07 1188.93 / 1188.93 Output Total 1400 / 1400 Balance 3211.07 / 3211.07 -211.07 / -211.07 Lab / Micro Data 10/14/24 06:10 Labs: Laboratory Results - last 24 hr 10/14/24 06:10: Platelet Estimate ADEQUATE ROS Constitutional Constitutional: Denies headache(s) Cardiovascular Cardiovascular: Denies chest pain or dyspnea Gastrointestinal Gastrointestinal: Denies nausea or vomiting Genitourinary Genitourinary: Denies dysuria Physical Exam Const alert, oriented x3 and no apparent distress General Appearance: cooperative and comfortable Eyes PERRL and EOMs intact bilaterally Resp normal respiratory effort GI soft to palpation and non-tender Uterus Palpation: uterus fundus firm ( below umbilicus) Extremity normal to inspection and full ROM Neuro oriented x3 and CN's II-XII intact bilaterally Psych mental status grossly normal Assessment & Plan (1) Vaginal delivery: (2) Positive GBS test: PLAN: Plan Discharge home. Follow up in 2 weeks. Breast feeding
--- NOTE | 2024-10-15 08:23 | PCM.DC.SUM ---
Providers Date of Admission: 10/13/24 Date of Discharge: 10/15/24 Primary Care Physician: Dr. Ruiz Vega DO Reason For Visit: LABOR & DELIVERY Diagnosis Discharge Diagnosis (1) Vaginal delivery: Status: Acute Code(s): O80 - Encounter for full-term uncomplicated delivery (2) Positive GBS test: Status: Acute Code(s): B95.1 - Streptococcus, group B, as the cause of diseases classified elsewhere Plan Discharge home. Follow up in 2 weeks. Breast feeding Medications at Discharge Home Medications albuterol sulfate 90 mcg/actuation aerosol inhaler 1 puff inhalation PRN breathing 10/04/23 vits 75-iron 28 mg-folic acid 800 mcg-omega-3 oral combo pack (One A Day Women's DHA) 1 pkg PO DAILY 02/24/24 famotidine 20 mg tablet (Acid-Pep) 20 mg PO QHS 10/12/24 Hospital Course Operations None Procedures None Summary of Care Provided Minutes Spent on Discharge: 20 Hospital Course: Admitted in active labor. GBS positive. Fever . Breast feeding. Physical Exam Const alert and no apparent distress Narrative: Fundus firm, below umbilicus. Weight / BMI Weight Weight: 101.9 kg Body Mass Index (BMI) 38.5 ABG / Lab / Microbiology Data 10/14/24 06:10 Laboratory: Laboratory Results - last 24 hr 10/14/24 06:10: Platelet Estimate ADEQUATE D/C Instructions DC O2, CPAP, BIPAP Needs Home O2 Discharge instructions: No Meaningful Use Info Meaningful Use Meaningful Use Diagnoses (Choose all that apply): None applicable Discharge Plan Admission Admit Date/Time: 10/13/24 08:45 Primary Reason for Your Visit: labor Attending Provider: Delfina Watson Primary Care Provider: Ruiz Vega Discharge Orders/Prescriptions Prescriptions: Continued albuterol sulfate 90 mcg/actuation HFA aerosol inhaler 1 puff inhalation PRN One A Day Women's DHA 28 mg iron- 800 mcg combo pack 1 pkg PO DAILY famotidine [Acid-Pep] 20 mg tablet 20 mg PO QHS Discontinued aspirin [Aspirin Childrens] 81 mg tablet,chewable 1 tab PO DAILY Referrals / Follow Up: Ruiz Vega DO [Primary Care Provider] - Disposition Disposition (needs filled in before D/C Order can be placed): Home, Self Care
[2024-10-15 08:45] VITALS: BP 121/89; PULSE 90; RESP 14; TEMP 36.6; O2SAT 99
[2024-10-15] MEDS: Senna/Docusate Sodium 1 Tablet PO (13:08)
--- NOTE | 2024-10-15 13:29 | CASEMGMT ---
Social Work Assessment Labor and Delivery Unit Patient Address: [address] [place] [address]. [place] [address] Phone number: [phone] Date of Referral: 10/13/24 Time of Referral:? 1036 Referred By: Delfina Watson Date of Intervention: ?10/15/24? Time of Intervention:? 1020 Reason for Referral:? both parents are addicts Sw completed chart review and acknowledges social work consult. Sw presented to bedside and introduced self to mother of baby (SCAR- Amirah) and father of baby (JANE- Rojelio). Sw explained reason for sw involvement and completed psychosocial assessment. History obtained from: medical records, MOB and FOB Household composition: Currently residing in the family home is MOB and FOCherelle. They deny that anyone else lives in their home. [place] baby to be included in residence when ready for discharge. Parents deny any issues or concerns with housing, stating that it is safe and secure. Patient's parent/guardian status:? SCAR states that she and JANE have been together for four years after meeting each other in high school. baby is first baby for MOB and JAEN together. No concerns regarding domestic violence or intimate violence reported. Medical History: ?SCAR is 19 year old female who is 1, para 0- now 1 following labor and delivery. SCAR received routine care with [facility] beginning in first trimester. SCAR presented to hospital on 10/14/24 and delivered baby via vaginal delivery at 40 weeks gestation. Baby boy, named Rojelio Parikh, was born weighing 7lb 5oz with apgars of 6 and 8 at one and five minutes of life, respectfully. SCAR is breast feeding and states that baby will be followed by Dr. Davis for pediatrics. Educational Status:? Both parents graduated from high school. SCAR states that she obtained some college, and JANE is currently taking college courses to obtain his degree in Environmental sciences. No problems with reading, learning or comprehension. 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 JANE is not employed as he is currently in school. Supplies:?? All necessary baby supplies obtained, including: car seat, safe sleep space, clothes, diapers and wipes. Childcare/Caregiver(s):? SCAR reports that she will be the primary managed care specialist, along with FOB and her step farther who currently resides with her. Transportation:?? Both parents have their drivers license and reliable means of transportation, no barriers Programs/Agencies Involved: ?Family is connected to Medicaid insurance ([place]), food benefits and WIC. ? Children Services/Legal Issues:??? No prior involvement with children services, no issues or concerns warranting referral to be made at this time. Behavioral Health Issues: ??Mental Health History:?Both parents deny mental health history. MOB denies struggling with any anxiety or depression throughout her . ?? Substance Use History:??Parents deny substance use prior to and during . Family History: MOB reports that her parents have substance use history. MOB states that she does not have any involvement with them at this time. MOB denies using substances due to her genetic history. Sw explained the importance of using healthy and safe coping mechanisms opposed to seeking comfort from drugs or alcohol. ?Drug Screens: ?No drug screens observed while completing chart review. ? Family/Social Stressors:? MOB denies any issues, concerns or stressors at this time. Support Systems: MOB states that her mom and FOB are her biggest supports at this time. Depression/Shaken Baby/Safe Sleeping:?Sw educated parents on signs and symptoms of baby blues and depression and anxiety. MOB listened intently and expressed understanding. MOB states that if she were to struggle she would feel comfortably. FOB states that if MOB were to struggle with her mental health during this period he would be able to recognize, and feels as though he would be able to help and support her. Sw encouraged parents to have a conversation on how MOB thinks FOB could help her if she would struggle. Parents express understanding. Sw educated parents on shaken baby prevention and ABCs of safe sleep, parents express understanding. ASSESSMENT:? MOB and baby admitted following labor and delivery of . Sw presented to bedside and met with parents, and completed assessment. MOB was welcoming and engaging throughout conversation. MOB was observed sitting in chair and feeding baby. MOB looked awake and alert, she was holding baby lovingly and providing appropriate hands on care. FOB was laying on couch and did not make eye contact or participate in conversation unless question was asked directly to him. MOB denies any mental health issues prior to, during or now that baby has been born. Parents have obtained all necessary baby supplies and have natural supports in place. Sw notes that MOB has history of family substance use, and encouraged parents to use healthy and safe coping skills. PLAN:? No other services requested or indicated. MOB and baby to be discharged when medically ready. Parents were provided literature regarding: signs and symptoms of baby blues and mood and anxiety disorders, Help Me Grow, shaken baby prevention, ABCs of safe sleep and a list of [facility] resources that are available for them should any needs present themselves. Remy Vences, JOB MOLDER, SOFTWARE QUALITY TESTER
--- NOTE | 2024-10-15 13:29 | CASEMGMT ---
Social Work Assessment Labor and Delivery Unit Patient Address: [address] [place] [address]. [place] [address] Phone number: [phone] Date of Referral: 10/13/24 Time of Referral:? 1036 Referred By: Delfina Watson Date of Intervention: ?10/15/24? Time of Intervention:? 1020 Reason for Referral:? both parents are addicts Sw completed chart review and acknowledges social work consult. Sw presented to bedside and introduced self to mother of baby (SCAR- Amirah) and father of baby (JANE- Rojelio). Sw explained reason for sw involvement and completed psychosocial assessment. History obtained from: medical records, MOB and FOB Household composition: Currently residing in the family home is MOB and FOCherelle. They deny that anyone else lives in their home. [place] baby to be included in residence when ready for discharge. Parents deny any issues or concerns with housing, stating that it is safe and secure. Patient's parent/guardian status:? SCAR states that she and JANE have been together for four years after meeting each other in high school. baby is first baby for MOB and JANE together. No concerns regarding domestic violence or intimate violence reported. Medical History: ?SCAR is 19 year old female who is 1, para 0- now 1 following labor and delivery. SCAR received routine care with [facility] beginning in first trimester. SCAR presented to hospital on 10/14/24 and delivered baby via vaginal delivery at 40 weeks gestation. Baby boy, named Rojelio Parikh, was born weighing 7lb 5oz with apgars of 6 and 8 at one and five minutes of life, respectfully. SCAR is breast feeding and states that baby will be followed by Dr. Davis for pediatrics. Educational Status:? Both parents graduated from high school. SCAR states that she obtained some college, and JANE is currently taking college courses to obtain his degree in Environmental sciences. No problems with reading, learning or comprehension. 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 JANE is not employed as he is currently in school. Supplies:?? All necessary baby supplies obtained, including: car seat, safe sleep space, clothes, diapers and wipes. Childcare/Caregiver(s):? SCAR reports that she will be the primary medicare sales representative, along with FOB and her step farther who currently resides with her. Transportation:?? Both parents have their drivers license and reliable means of transportation, no barriers Programs/Agencies Involved: ?Family is connected to Medicaid insurance ([place]), food benefits and WIC. ? Children Services/Legal Issues:??? No prior involvement with children services, no issues or concerns warranting referral to be made at this time. Behavioral Health Issues: ??Mental Health History:?Both parents deny mental health history. MOB denies struggling with any anxiety or depression throughout her . ?? Substance Use History:??Parents deny substance use prior to and during . Family History: MOB reports that her parents have substance use history. MOB states that she does not have any involvement with them at this time. MOB denies using substances due to her genetic history. Sw explained the importance of using healthy and safe coping mechanisms opposed to seeking comfort from drugs or alcohol. ?Drug Screens: ?No drug screens observed while completing chart review. ? Family/Social Stressors:? MOB denies any issues, concerns or stressors at this time. Support Systems: MOB states that her mom and FOB are her biggest supports at this time. Depression/Shaken Baby/Safe Sleeping:?Sw educated parents on signs and symptoms of baby blues and depression and anxiety. MOB listened intently and expressed understanding. MOB states that if she were to struggle she would feel comfortably. FOB states that if MOB were to struggle with her mental health during this period he would be able to recognize, and feels as though he would be able to help and support her. Sw encouraged parents to have a conversation on how MOB thinks FOB could help her if she would struggle. Parents express understanding. Sw educated parents on shaken baby prevention and ABCs of safe sleep, parents express understanding. ASSESSMENT:? MOB and baby admitted following labor and delivery of . Sw presented to bedside and met with parents, and completed assessment. MOB was welcoming and engaging throughout conversation. MOB was observed sitting in chair and feeding baby. MOB looked awake and alert, she was holding baby lovingly and providing appropriate hands on care. FOB was laying on couch and did not make eye contact or participate in conversation unless question was asked directly to him. MOB denies any mental health issues prior to, during or now that baby has been born. Parents have obtained all necessary baby supplies and have natural supports in place. Sw notes that MOB has history of family substance use, and encouraged parents to use healthy and safe coping skills. PLAN:? No other services requested or indicated. MOB and baby to be discharged when medically ready. Parents were provided literature regarding: signs and symptoms of baby blues and mood and anxiety disorders, Help Me Grow, shaken baby prevention, ABCs of safe sleep and a list of [facility] resources that are available for them should any needs present themselves. Remy Vences, ORNAMENTAL METAL WORKER HELPER, SOCIAL MEDIA JOB TITLES
[2024-10-15 15:50] VITALS: BP 130/71; PULSE 90; RESP 14; O2SAT 96
== END 2024-10-15 16:35 | disposition home or self-care (01) | DRG 560 ==
LOC: WPOUT 09:13 → WP 09:14
PROVIDERS: Admitting Provider Advanced Practice Midwife; PCP Student in an Organized Health Care Education/Training Program; Referring Provider Advanced Practice Midwife; Visit Provider Advanced Practice Midwife
DX: O99.214 Obesity complicating childbirth (principal); Z37.0 Single live birth; O98.82 Other maternal infectious and parasitic diseases complicating childbirth; J45.909 Unspecified asthma, uncomplicated; O99.52 Diseases of the respiratory system complicating childbirth; B95.1 Streptococcus, group B, as the cause of diseases classified elsewhere; O76 Abnormality in fetal heart rate and rhythm complicating labor and delivery; O77.0 Labor and delivery complicated by meconium in amniotic fluid; O86.4 Pyrexia of unknown origin following delivery; O69.81X0 Labor and delivery complicated by cord around neck, without compression, not applicable or unspecified; Z79.82 Long term (current) use of aspirin; Z3A.40 40 weeks gestation of pregnancy
CPT/HCPCS: 59025; 59050; 85025; 86780; 86850; 86900; 86901; 88307; 99221; A4216; G0378; J2405